=== PATIENT | female | born 1960 | race American Indian/Alaskan Native ===

== ENCOUNTER 2021-07-10 21:36 | Inpatient (IN) | payer MEDICARE ==
[~2021-07-10 21:36] MED LIST: AZITHROMYCIN/NS 500 MG/250 ML 500 MG/250 ML BAG IV ONE; cefTRIAXone/NS 2 GM/100 ML 2 GM/100 ML BAG IV ONE
--- NOTE | 2021-07-10 21:53 | Emergency Department Report ---
ED General Adult HPI - General Chief complaint: Pain General Stated complaint: HEADACHE, ABDOMINAL PAIN, INSOMNIA Source: patient, EMS Mode of arrival: Stretcher Limitations: Language Barrier - History of Present Illness Initial comments: Patient presents to the emergency department the chief complaint of shortness of breath. Patient is a hemodialysis recipient with her last dialysis being yesterday. She goes on Tuesdays, , Thursday. She states her dialysis center is in [place] and she just moved to this area. Per EMS arrival to the patient's home her sats were 84% on room air she was placed on 3 L nasal cannula with O2 sats decreasing to 92%. Patient complains of back pain but denies chest pain, shortness breath, or headache. -: Sudden Severity scale (0 -10): 5 Quality: aching Consistency: constant Improves with: none Worsens with: none Associated Symptoms: denies other symptoms Treatments Prior to Arrival: none - Related Data Allergies Allergy/AdvReac Type Severity Reaction Status Date / Time No Known Allergies Allergy Unverified 07/10/21 20:57 ED Review of Systems ROS: Stated complaint: HEADACHE, ABDOMINAL PAIN, INSOMNIA Other details as noted in HPI Comment: All other systems reviewed and negative Constitutional: denies: chills, fever Eyes: denies: eye pain, eye discharge, vision change ENT: denies: ear pain, throat pain Respiratory: shortness of breath. denies: cough, wheezing Cardiovascular: denies: chest pain, palpitations Endocrine: no symptoms reported Gastrointestinal: denies: abdominal pain, nausea, diarrhea Genitourinary: denies: urgency, dysuria, discharge Musculoskeletal: denies: back pain, joint swelling, arthralgia Skin: denies: rash, lesions Neurological: denies: headache, weakness, paresthesias Psychiatric: denies: anxiety, depression Hematological/Lymphatic: denies: easy bleeding, easy bruising ED Past Medical Hx - Past Medical History Previous Medical History?: Yes Hx Hypertension: Yes Hx CVA: Yes Hx Diabetes: Yes Hx Renal Disease: Yes (ESRD with Hemodialysis) Hx Headaches / Migraines: Yes Hx Seizures: Yes Additional medical history: HD access Left arm HD T,TH,Sat. Anemia in chronic disease, CAD, Fluid Overload, Hyperlipidemia, Hypokalemia, Hyperparathyroidism ED Physical Exam - General Limitations: Language Barrier General appearance: alert, in no apparent distress - Head Head exam: Present: atraumatic, normocephalic - Eye Eye exam: Present: normal appearance, PERRL, EOMI - ENT ENT exam: Present: mucous membranes moist - Neck Neck exam: Present: normal inspection - Respiratory Respiratory exam: Present: rales. Absent: respiratory distress - Cardiovascular Cardiovascular Exam: Present: regular rate, normal rhythm. Absent: systolic murmur, diastolic murmur, rubs, gallop - GI/Abdominal GI/Abdominal exam: Present: soft, normal bowel sounds. Absent: distended, tenderness - Extremities Exam Extremities exam: Present: normal inspection - Back Exam Back exam: Present: normal inspection - Neurological Exam Neurological exam: Present: alert, oriented X3, CN II-XII intact. Absent: motor sensory deficit - Psychiatric Psychiatric exam: Present: normal affect, normal mood - Skin Skin exam: Present: warm, dry, intact, normal color. Absent: rash ED Course Vital Signs 07/10/21 07/10/21 21:09 22:21 Temperature 99.5 F Pulse Rate 82 Respiratory 20 20 Rate Blood Pressure 169/74 [Right] O2 Sat by Pulse 94 95 Oximetry ED Medical Decision Making - Lab Data Result diagrams: 07/10/21 21:38 07/10/21 21:38 Lab Results 07/10/21 07/10/21 07/10/21 Range/Units 21:38 21:38 21:38 WBC 4.2 L (4.5-11.0) K/mm3 RBC 3.70 (3.65-5.03) M/mm3 Hgb 9.2 L (10.1-14.3) gm/dl Hct 29.6 L (30.3-42.9) % MCV 80 (79-97) fl MCH 25 L (28-32) pg MCHC 31 (30-34) % RDW 17.1 H (13.2-15.2) % Plt Count 257 (140-440) K/mm3 Lymph % (Auto) 22.5 (13.4-35.0) % [place] % (Auto) 13.8 H (0.0-7.3) % Eos % (Auto) 1.3 (0.0-4.3) % Baso % (Auto) 2.8 H (0.0-1.8) % Lymph # (Auto) 0.9 L (1.2-5.4) K/mm3 [place] # (Auto) 0.6 (0.0-0.8) K/mm3 Eos # (Auto) 0.1 (0.0-0.4) K/mm3 Baso # (Auto) 0.1 (0.0-0.1) K/mm3 Seg Neutrophils % 59.6 (40.0-70.0) % Seg Neutrophils # 2.5 (1.8-7.7) K/mm3 APTT 40.5 H (24.2-36.6) Sec. Sodium 136 L (137-145) mmol/L Potassium 4.1 (3.6-5.0) mmol/L Chloride 95.3 L (98-107) mmol/L Carbon Dioxide 25 (22-30) mmol/L Anion Gap 20 mmol/L BUN 35 H (7-17) mg/dL Creatinine 6.6 H (0.6-1.2) mg/dL Estimated GFR 6 ml/min BUN/Creatinine Ratio 5 % Glucose 96 (65-100) mg/dL Lactic Acid (0.7-2.0) mmol/L Calcium 9.7 (8.4-10.2) mg/dL Total Bilirubin 0.70 (0.1-1.2) mg/dL AST 12 (5-40) units/L ALT 7 (7-56) units/L Alkaline Phosphatase 82 (35-129) units/L Troponin T 0.035 H (0.00-0.029) ng/mL NT-Pro-B Natriuret Pep (0-900) pg/mL Total Protein 8.7 H (6.3-8.2) g/dL Albumin 4.4 (3.9-5) g/dL Albumin/Globulin Ratio 1.0 % 07/10/21 07/10/21 Range/Units 21:38 21:38 WBC (4.5-11.0) K/mm3 RBC (3.65-5.03) M/mm3 Hgb (10.1-14.3) gm/dl Hct (30.3-42.9) % MCV (79-97) fl MCH (28-32) pg MCHC (30-34) % RDW (13.2-15.2) % Plt Count (140-440) K/mm3 Lymph % (Auto) (13.4-35.0) % [place] % (Auto) (0.0-7.3) % Eos % (Auto) (0.0-4.3) % Baso % (Auto) (0.0-1.8) % Lymph # (Auto) (1.2-5.4) K/mm3 [place] # (Auto) (0.0-0.8) K/mm3 Eos # (Auto) (0.0-0.4) K/mm3 Baso # (Auto) (0.0-0.1) K/mm3 Seg Neutrophils % (40.0-70.0) % Seg Neutrophils # (1.8-7.7) K/mm3 APTT (24.2-36.6) Sec. Sodium (137-145) mmol/L Potassium (3.6-5.0) mmol/L Chloride (98-107) mmol/L Carbon Dioxide (22-30) mmol/L Anion Gap mmol/L BUN (7-17) mg/dL Creatinine (0.6-1.2) mg/dL Estimated GFR ml/min BUN/Creatinine Ratio % Glucose (65-100) mg/dL Lactic Acid 0.70 (0.7-2.0) mmol/L Calcium (8.4-10.2) mg/dL Total Bilirubin (0.1-1.2) mg/dL AST (5-40) units/L ALT (7-56) units/L Alkaline Phosphatase (35-129) units/L Troponin T (0.00-0.029) ng/mL NT-Pro-B Natriuret Pep 47112 H (0-900) pg/mL Total Protein (6.3-8.2) g/dL Albumin (3.9-5) g/dL Albumin/Globulin Ratio % - Radiology Data Radiology results: report reviewed - Medical Decision Making Contacted Dr. [address] security officer on-call Plan is for dialysis in a.m. Discussed results with patient Patient states she does not make urine Patient is O2 sats improved from 86% to 94% on 2 L nasal cannula Critical care attestation.: If time is entered above; I have spent that time in minutes in the direct care of this critically ill patient, excluding procedure time. ED Disposition Clinical Impression: Volume overload, End stage renal disease on dialysis Disposition: ADMITTED INPATIENT Is pt being admited?: Yes Does the pt Need Aspirin: No Condition: Fair
--- NOTE | 2021-07-10 21:55 | XRay Report ---
CHEST 1 VIEW 07/10/2021 8:42 PM INDICATION / CLINICAL INFORMATION: sob. COMPARISON: None available. FINDINGS: SUPPORT DEVICES: Expected positioning of a right ICD. HEART / MEDIASTINUM: There is moderate cardiomegaly with central vascular congestion. LUNGS / PLEURA: Generalized bilateral interstitial opacities are noted with bibasilar airspace opacit ies and probable small pleural effusions. No pneumothorax. ADDITIONAL FINDINGS: No significant additional findings. IMPRESSION: Suspected acute CHF exacerbation. Continued radiographic follow-up to resolution is recommended. Signer Name: Nirav Luna MD Signed: 07/10/2021 9:50 PM Workstation Name: [id number]
[2021-07-10 22:07] LABS: Basophils # (Auto) 0.1 K/mm3 (0.0-0.1); Basophils % (Auto) 2.8 % (0.0-1.8); Eosinophils # (Auto) 0.1 K/mm3 (0.0-0.4); Eosinophils % (Auto) 1.3 % (0.0-4.3); Hematocrit 29.6 % (30.3-42.9); Hemoglobin 9.2 gm/dl (10.1-14.3); Lymphocytes # (Auto) 0.9 K/mm3 (1.2-5.4); Lymphocytes % (Auto) 22.5 % (13.4-35.0); Mean Corpuscular HGB Conc 31 % (30-34); Mean Corpuscular Volume 80 fl (79-97); Monocytes # (Auto) 0.6 K/mm3 (0.0-0.8); Monocytes % (Auto) 13.8 % (0.0-7.3); Platelet Count 257 K/mm3 (140-440); Red Cell Distribution Width 17.1 % (13.2-15.2)
[2021-07-10 22:15] LABS: Albumin 4.4 g/dL (3.9-5); Calcium 9.7 mg/dL (8.4-10.2)
[2021-07-11] MEDS ORDERED: ACETAMINOPHEN 325 MG TAB PO PRN (00:53)
[2021-07-11] MEDS ORDERED: MORPHINE 2 MG/1 ML INJ IV PRN (00:53)
[2021-07-11] MEDS ORDERED: ALBUTEROL 2.5 MG/3 ML NEBU IH PRN (00:53)
[2021-07-11] MEDS ORDERED: ONDANSETRON 4 MG/2 ML INJ IV PRN (00:53)
[2021-07-11] MEDS ORDERED: HYDROmorphone 1 MG/1 ML INJ IV PRN (00:53)
[2021-07-11] MEDS ORDERED: DEXTROSE 50% IN WATER (25GM) 50 ML SYRINGE IV PRN (00:55)
[2021-07-11 00:58] LABS: Chol/HDL Ratio 4.48 %
--- NOTE | 2021-07-11 01:00 | History and Physical Report ---
History of Present Illness Date of examination: 07/11/21 Date of admission: 07/11/21 00:00 Chief complaint: Headache abdominal pain insomnia Missed dialysis History of present illness: 60 years old female with past medical history of hypertension, CVA, diabetes, end-stage renal disease on dialysis was brought to the hospital because of shortness of breath. Patient is a hemodialysis pt with her last dialysis being yesterday. She goes on Tuesdays, , Thursday. She states her dialysis center is in [place] and she just moved to this area. Per EMS arrival to the patient's home her sats were 84% on room air she was placed on 3 L nasal cannula with O2 sats decreasing to 92%. Patient complains of back pain but denies chest pain, shortness breath, or headache. In the emergency room patient is found to have BUN of 35 and creatinine of 6.6 [place] [address] and troponin 0 0.035, chest x-ray shows suspected acute CHF exacerbation. So going to admit the patient and consult nephrology for hemodialysis in the morning. Past History Past Medical History: diabetes, ESRD, hypertension, seizures, stroke, other (Hyperparathyroidism, headache migraine) Medications and Allergies Allergies Allergy/AdvReac Type Severity Reaction Status Date / Time No Known Allergies Allergy Unverified 07/10/21 20:57 Active Meds: Active Medications Acetaminophen (Acetaminophen 325 Mg Tab) 650 mg PO Q4H PRN PRN Reason: Pain MILD(1-3)/Fever >100.5/COWART Albuterol (Albuterol 2.5 Mg/3 Ml Nebu) 2.5 mg IH Q4HRT PRN PRN Reason: Shortness Of Breath Albuterol/Ipratropium (Ipratropium/Albuterol Sulfate 3 Ml Ampul.Neb) 1 ampul IH Q6HRT [facility] Dextrose (Dextrose 50% In Water (25gm) 50 Ml Syringe) 50 ml IV Q30MIN PRN; Protocol PRN Reason: Hypoglycemia Famotidine (Famotidine 20 Mg Tab) 20 mg PO BID JODI Heparin Sodium (Porcine) (Heparin 5,000 Unit/1 Ml Vial) 5,000 unit SUB-Q Q12HR [facility] Hydromorphone HCl (Hydromorphone 1 Mg/1 Ml Inj) 0.5 mg IV Q3H PRN PRN Reason: Pain , Severe (7-10) Insulin Human Lispro (Insulin Lispro 100 Unit/Ml) 0 unit SUB-Q ACHS JODI; Protocol Morphine Sulfate (Morphine 2 Mg/1 Ml Inj) 2 mg IV Q4H PRN PRN Reason: Pain, Moderate (4-6) Ondansetron HCl (Ondansetron 4 Mg/2 Ml Inj) 4 mg IV Q8H PRN PRN Reason: Nausea And Vomiting Sodium Chloride (Sodium Chloride 0.9% 10 Ml Flush Syringe) 10 ml IV BID JODI Sodium Chloride (Sodium Chloride 0.9% 10 Ml Flush Syringe) 10 ml IV PRN PRN PRN Reason: LINE FLUSH Review of Systems All systems: negative Constitutional: other (Headache, abdominal pain, insomnia) Exam - Constitutional Vitals: Temp Pulse Resp BP Pulse Ox 99.5 F 82 20 176/70 91 07/10/21 21:09 07/11/21 00:00 07/11/21 00:00 07/11/21 00:00 07/11/21 00:00 General appearance: Present: no acute distress, well-nourished - EENT Eyes: Present: PERRL ENT: hearing intact, clear oral mucosa - Neck Neck: Present: supple, normal ROM - Respiratory Respiratory effort: normal Respiratory: bilateral: diminished - Cardiovascular Heart Sounds: Present: S1 & S2. Absent: rub, click - Extremities Extremities: pulses symmetrical, No edema Peripheral Pulses: within normal limits - Abdominal General gastrointestinal: Present: soft, non-tender, non-distended, normal bowel sounds Female genitourinary: Present: normal - Integumentary Integumentary: Present: clear, warm, dry - Musculoskeletal Musculoskeletal: gait normal, strength equal bilaterally - Psychiatric Psychiatric: appropriate mood/affect, intact judgment & insight - Neurologic Neurologic: CNII-XII intact, moves all extremities HEART Score - HEART Score Troponin: Troponin T 0.035 ng/mL (0.00-0.029) H 07/10/21 21:38 Results - Labs CBC & Chem 7: 07/10/21 21:38 12 21:38 Labs: Laboratory Last Values WBC 4.2 K/mm3 (4.5-11.0) L 07/10/21 21:38 RBC 3.70 M/mm3 (3.65-5.03) 07/10/21 21:38 Hgb 9.2 gm/dl (10.1-14.3) L 07/10/21 21:38 Hct 29.6 % (30.3-42.9) L 07/10/21 21:38 MCV 80 fl (79-97) 07/10/21 21:38 MCH 25 pg (28-32) L 07/10/21 21:38 MCHC 31 % (30-34) 07/10/21 21:38 RDW 17.1 % (13.2-15.2) H 07/10/21 21:38 Plt Count 257 K/mm3 (140-440) 07/10/21 21:38 Lymph % (Auto) 22.5 % (13.4-35.0) 07/10/21 21:38 [place] % (Auto) 13.8 % (0.0-7.3) H 07/10/21 21:38 Eos % (Auto) 1.3 % (0.0-4.3) 07/10/21 21:38 Baso % (Auto) 2.8 % (0.0-1.8) H 07/10/21 21:38 Lymph # (Auto) 0.9 K/mm3 (1.2-5.4) L 07/10/21 21:38 [place] # (Auto) 0.6 K/mm3 (0.0-0.8) 07/10/21 21:38 Eos # (Auto) 0.1 K/mm3 (0.0-0.4) 07/10/21 21:38 Baso # (Auto) 0.1 K/mm3 (0.0-0.1) 07/10/21 21:38 Seg Neutrophils % 59.6 % (40.0-70.0) 07/10/21 21:38 Seg Neutrophils # 2.5 K/mm3 (1.8-7.7) 07/10/21 21:38 APTT 40.5 Sec. (24.2-36.6) H 07/10/21 21:38 Sodium 136 mmol/L (137-145) L 07/10/21 21:38 Potassium 4.1 mmol/L (3.6-5.0) 07/10/21 21:38 Chloride 95.3 mmol/L (98-107) L 07/10/21 21:38 Carbon Dioxide 25 mmol/L (22-30) 07/10/21 21:38 Anion Gap 20 mmol/L 07/10/21 21:38 BUN 35 mg/dL (7-17) H 07/10/21 21:38 Creatinine 6.6 mg/dL (0.6-1.2) H 07/10/21 21:38 Estimated GFR 6 ml/min 07/10/21 21:38 BUN/Creatinine Ratio 5 % 07/10/21 21:38 Glucose 96 mg/dL (65-100) 07/10/21 21:38 Lactic Acid 0.70 mmol/L (0.7-2.0) 07/10/21 21:38 Calcium 9.7 mg/dL (8.4-10.2) 07/10/21 21:38 Total Bilirubin 0.70 mg/dL (0.1-1.2) 07/10/21 21:38 AST 12 units/L (5-40) 07/10/21 21:38 ALT 7 units/L (7-56) 07/10/21 21:38 Alkaline Phosphatase 82 units/L (35-129) 07/10/21 21:38 Troponin T 0.035 ng/mL (0.00-0.029) H 07/10/21 21:38 NT-Pro-B Natriuret Pep 25958 pg/mL (0-900) H 07/10/21 21:38 Total Protein 8.7 g/dL (6.3-8.2) H 07/10/21 21:38 Albumin 4.4 g/dL (3.9-5) 07/10/21 21:38 Albumin/Globulin Ratio 1.0 % 07/10/21 21:38 Microbiology: Microbiology 07/10/21 21:38 Peripheral/Venous Blood Culture - Preliminary Culture in Progress 07/10/21 21:44 Peripheral/Venous Blood Culture - Preliminary Culture in Progress - Imaging and Cardiology Chest x-ray: report reviewed Assessment and Plan VTE prophylaxis?: Chemical Plan of care discussed with patient/family: Yes - Patient Problems (1) End stage renal disease on dialysis Current Visit: Yes Status: Acute Plan to address problem: Admit the patient to the medical telemetry. Put the patient on renal diet. Avoid nephrotoxic drugs w ill consult nephrology for hemodialysis in the morning. Recheck BMP in the morning (2) Volume overload Current Visit: Yes Status: Acute Plan to address problem: We monitor the patient closely. Consult nephrology for hemodialysis in the morning recheck BMP in the morning (3) Diabetes Current Visit: Yes Status: Acute Plan to address problem: 1800 kcal ADA diet. Accu-Chek before meals and at bedtime with Humalog moderate dose coverage. Diabetic education (4) CVA (cerebral vascular accident) Current Visit: Yes Status: Acute Plan to address problem: Stable. We will continue the home medication. Outpatient follow-up with neurology (5) Hypertension Current Visit: Yes Status: Acute Plan to address problem: Hydralazine 10 mg IV every 6 hours as needed. We continue the home medication. We will monitor the blood pressure closely (6) DVT prophylaxis Current Visit: Yes Status: Acute Plan to address problem: Heparin 5000 units subcu every 8 hours for DVT prophylaxis. Pepcid 20 mg p.o. twice daily for GI prophylaxis. Patient is a full code
[2021-07-11] MEDS: hydrALAZINE 20 MG/1 ML INJ IV PRN ×3 (01:48→16:39)
[2021-07-11] MEDS: INSULIN LISPRO 100 UNIT/ML SUB-Q SCH ×4 (08:00→21:33)
[2021-07-11] MEDS ORDERED: cloNIDine 0.1 MG TAB PO STA (08:08)
[2021-07-11] MEDS ORDERED: MORPHINE 4 MG/1 ML INJ IV STA (09:24)
[2021-07-11] MEDS ORDERED: MORPHINE 2 MG/1 ML INJ IV STA (09:45)
[2021-07-11] MEDS: IPRATROPIUM/ALBUTEROL SULFATE 3 ML AMPUL.NEB IH SCH ×3 (09:55→15:57)
[2021-07-11] MEDS ORDERED: FAMOTIDINE 20 MG TAB PO SCH (10:00)
[2021-07-11] MEDS: HEPARIN 5,000 UNIT/1 ML VIAL SUB-Q SCH ×2 (10:00→21:37)
--- NOTE | 2021-07-11 11:28 | Consultation ---
History of Present Illness - Reason for Consult Consult date: 07/11/21 chronic renal failure, end stage renal disease - History of Present Illness patient with ESRD on HD was admitted for worsening shortness of breath and hypoxia, she was found to have pulm edema on CXR and renal consult was requested for HD while inpatient Past History Past Medical History: diabetes, ESRD, hypertension, seizures, stroke, other (Hyperparathyroidism, headache migraine) Medications and Allergies Allergies Allergy/AdvReac Type Severity Reaction Status Date / Time No Known Allergies Allergy Unverified 07/10/21 20:57 Active Meds: Active Medications Acetaminophen (Acetaminophen 325 Mg Tab) 650 mg PO Q4H PRN PRN Reason: Pain MILD(1-3)/Fever >100.5/COWART Albuterol (Albuterol 2.5 Mg/3 Ml Nebu) 2.5 mg IH Q4HRT PRN PRN Reason: Shortness Of Breath Albuterol/Ipratropium (Ipratropium/Albuterol Sulfate 3 Ml Ampul.Neb) 1 ampul IH Q6HRT [facility] Last Admin: 07/11/21 09:55 Dose: 1 ampul Documented by: Dextrose (Dextrose 50% In Water (25gm) 50 Ml Syringe) 0 ml IV Q30MIN PRN; Protocol PRN Reason: Hypoglycemia Famotidine (Famotidine 20 Mg Tab) 20 mg PO QAM [facility] Heparin Sodium (Porcine) (Heparin 5,000 Unit/1 Ml Vial) 5,000 unit SUB-Q Q12HR [facility] Hydralazine HCl (Hydralazine 20 Mg/1 Ml Inj) 10 mg IV Q6H PRN PRN Reason: Blood Pressure Last Admin: 07/11/21 08:14 Dose: 10 mg Documented by: Hydromorphone HCl (Hydromorphone 1 Mg/1 Ml Inj) 0.5 mg IV Q3H PRN PRN Reason: Pain , Severe (7-10) Last Admin: 07/11/21 01:49 Dose: 0.5 mg Documented by: Insulin Human Lispro (Insulin Lispro 100 Unit/Ml) 0 unit SUB-Q [facility]; Protocol Morphine Sulfate (Morphine 2 Mg/1 Ml Inj) 2 mg IV Q4H PRN PRN Reason: Pain, Moderate (4-6) Ondansetron HCl (Ondansetron 4 Mg/2 Ml Inj) 4 mg IV Q8H PRN PRN Reason: Nausea And Vomiting Sodium Chloride (Sodium Chloride 0.9% 10 Ml Flush Syringe) 10 ml IV BID JODI Sodium Chloride (Sodium Chloride 0.9% 10 Ml Flush Syringe) 10 ml IV PRN PRN PRN Reason: LINE FLUSH Exam - Vital Signs Vital signs: Vital Signs Pulse Ox 94 07/10/21 20:45 Results - Lab Results 07/10/21 21:38 07/10/21 21:38 Most recent lab results Calcium 9.7 mg/dL (8.4-10.2) 07/10/21 21:38 Assessment and Plan (1) End stage renal disease on dialysis (2) Volume overload (3) Diabetes (4) CVA (cerebral vascular accident) (5) Hypertension Patient was consented for HD while inpatient HD today for clearance and volume removal will assess HD needs daily, likely again tomorrow renally dose meds strict I&O daily weight
[2021-07-11 12:12] LABS: ABG Base Excess -1.6 mmol/L (-2.0-3.0); ABG HCO3 24.2 mmol/L (20.0-26.0); ABG Oxygen Saturation 94.8 % (95.0-99.0); ABG PCO2 45.6 mm Hg; ABG PH 7.343 pH Units (7.350-7.450); ABG PO2 78.8 mm Hg (80.0-90.0)
[2021-07-11 12:13] LABS: ABG Methemoglobin 0.4 % (0.0-1.5)
[2021-07-11 12:29] LABS: Hepatitis C Virus Antibody Non-Reactive (NonReactive)
[2021-07-11 12:49] LABS: Hepatitis B Surface Antigen Nonreactive (Negative)
[2021-07-11] MEDS ORDERED: LORazepam 2 MG/ML VIAL IV STA (15:43)
--- NOTE | 2021-07-11 17:00 | Event Note ---
Date: 07/11/21 Progress note: History obtained from ER records, H&P as well as from her daughter. 68-year-old female with PMH of CAD, NE, prolonged QT interval, cardiac arrest x1, AICD, severe hypertension, chronic heart failure, ESRD on hemodialysis, DM, CVA was living with her daughter in [facility] but relocated to [place] 2 weeks ago. She was being followed by audiovisual lead technician in [facility]. She is compliant with her hemodialysis on T/T/S since moved here. Last dialysis was Thursday, day before yesterday. Patient presented to ED via EMS early this morning with worsening dyspnea since 2 days. Reportedly, O2 sats 84% on room air and placed on 3 L of O2. In ED, CBC unremarkable, lactic acid normal, chemistry unremarkable for a dialysis patient, BNP 45, 746 and a chest x-ray showed acute CHF changes. Troponin 0 0.036 and 0.037. Patient complained of some back pain but no chest pains in the ED. Nephrology was consulted by ED physician and patient admitted. Hypoxia continue to get worse after admission and needed BiPAP placement and FiO2 100% prior to initiation of hemodialysis. Patient did complain of some chest pains but EKG was unremarkable as well as troponins. She became confused. Patient did undergo dialysis and 4 L of fluid removed. FiO2 could be reduced to 50% after dialysis but patient became more confused and remain drowsy. Transferred to IM for further management. Home medications as per daughter: Clonidine, hydralazine, nifedipine, aspirin, Plavix, Advil statin, calcitriol, gabapentin, isosorbide, labetalol, losartan, and minoxidil. She also takes tumor medication related to renal failure. On exam, currently BP is elevated, patient is drowsy, confused and agitated, on BiPAP, face symmetrical, eyes closed, neck supple, gross diminished breath sounds, regular cardiac rhythm, abdomen soft and nontender, no significant extremity edema. She appears to be moving all 4 extremities. Assessment: Decompensated heart failure of unknown LVEF ESRD on hemodialysis but compliant with the dialysis, T/T/S Acute hypoxic respiratory failure with altered mental status Troponins borderline/normal/flat No evidence of sepsis/pneumonia Severe hypertension with known history Reported history of CAD, HF, prolonged QT interval, AICD placement History of DM History of CVA Plan: Transfer to IMCU/ICU Continue BiPAP for now Continue oxygen supplementation and wean as tolerated Follow-up ABG Optimize BP control using nitro drip, IV labetalol, IV Cardene Precedex for agitation Echocardiogram, cardiology consult Nephrology is following, dialysis scheduled for tomorrow again. Pulmonary consulted and I discussed the case Further interventions as indicated Critical care time spent 50 minutes
[2021-07-11] MEDS ORDERED: hydrALAZINE 20 MG/1 ML INJ IV PRN ×2 (19:56→20:25)
[2021-07-11] MEDS: niCARdipine 50 MG in SODIUM CHLORIDE 0.9% 250ML 230 ML IV SCH (22:12)
--- NOTE | 2021-07-11 23:13 | Cat Scan Report ---
CT HEAD WITHOUT CONTRAST INDICATION / CLINICAL INFORMATION: Altered Mental Status. TECHNIQUE: All CT scans at this location are performed using CT dose reduction for ALARA by means of automated exposure control. COMPARISON: None available. FINDINGS: HEMORRHAGE: None. EXTRA-AXIAL SPACES: Mildly prominent likely related to cortical atrophy. VENTRICULAR SYSTEM: Mildly enlarged likely related to central atrophy. CEREBRAL PARENCHYMA: Chronic moderate sized junctional zone infarct in the left posterior parietal re gion at the junction of the CRYSTAL SLICER and MCA distributions. MIDLINE SHIFT / HERNIATION: None. CEREBELLUM / BRAINSTEM: Moderate-sized chronic infarct in the right cerebellum posteriorly. ORBITS: Normal as visualized. SOFT TISSUES: No significant abnormality. SKULL: No significant abnormality. PARANASAL SINUSES / MASTOID AIR CELLS: Normal as visualized. ADDITIONAL FINDINGS: None. IMPRESSION: 1. No acute intracranial abnormality. 2. Old areas of infarction in the right cerebellum and left posterior parietal junctional zone. Signer Name: Saman Hi MD Signed: 07/11/2021 11:09 PM Workstation Name: [id number]
[2021-07-12] MEDS: IPRATROPIUM/ALBUTEROL SULFATE 3 ML AMPUL.NEB IH SCH ×5 (02:05→21:17)
[2021-07-12] MEDS ORDERED: ACETAMINOPHEN 650 MG RECT SUPP PR PRN (03:40)
[2021-07-12] MEDS: niCARdipine 50 MG in SODIUM CHLORIDE 0.9% 250ML 230 ML IV SCH ×2 (04:01→09:32)
[2021-07-12 05:20] LABS: Basophils # (Auto) 0.1 K/mm3 (0.0-0.1); Basophils % (Auto) 2.2 % (0.0-1.8); Eosinophils % (Auto) 0.4 % (0.0-4.3); Hematocrit 26.6 % (30.3-42.9); Hemoglobin 8.4 gm/dl (10.1-14.3); Lymphocytes % (Auto) 19.8 % (13.4-35.0); Mean Corpuscular HGB Conc 32 % (30-34); Mean Corpuscular Volume 79 fl (79-97); Monocytes # (Auto) 0.6 K/mm3 (0.0-0.8); Monocytes % (Auto) 12.4 % (0.0-7.3); Platelet Count 183 K/mm3 (140-440); Red Blood Count 3.36 M/mm3 (3.65-5.03); Red Cell Distribution Width 16.7 % (13.2-15.2)
[2021-07-12 05:44] LABS: Calcium 9.8 mg/dL (8.4-10.2)
[2021-07-12] MEDS: INSULIN LISPRO 100 UNIT/ML SUB-Q SCH ×3 (07:45→21:00)
--- NOTE | 2021-07-12 09:03 | XRay Report ---
CHEST 1 VIEW 07/12/2021 9:05 AM INDICATION / CLINICAL INFORMATION: CHF. COMPARISON: 07/10/2021 FINDINGS: SUPPORT DEVICES: Stable, satisfactory device positioning. HEART / MEDIASTINUM: No significant abnormality. LUNGS / PLEURA: Diffuse bilateral pulmonary opacities most significant in the lower lungs No pneumoth orax. ADDITIONAL FINDINGS: No significant additional findings. IMPRESSION: 1. No significant change Signer Name: Campos Stout MD Signed: 07/12/2021 8:58 AM Workstation Name: [id number]
[2021-07-12] MEDS ORDERED: FAMOTIDINE 20 MG/2 ML INJ IV SCH ×2 (10:00→22:00)
[2021-07-12] MEDS: HEPARIN 5,000 UNIT/1 ML VIAL SUB-Q SCH ×2 (10:10→23:24)
--- NOTE | 2021-07-12 10:41 | Progress Note ---
Assessment and Plan (1) End stage renal disease on dialysis (2) Volume overload (3) Diabetes (4) CVA (cerebral vascular accident) (5) Hypertension HD again today for clearance and volume removal will assess HD needs daily renally dose meds strict I&O daily weight Subjective Date of service: 07/12/21 Principal diagnosis: ESRD Interval history: patient was transferred to ICU due to worsening hypoxic resp failure Objective - Vital Signs Vital signs: Vital Signs - 12hr 07/11/21 07/11/21 07/11/21 22:48 22:52 23:00 Temperature Pulse Rate 81 80 79 Pulse Rate [ Anterior Bilateral Throughout] Respiratory 20 Rate Respiratory Rate [Anterior Bilateral Throughout] Blood Pressure 183/76 187/74 193/75 O2 Sat by Pulse 95 95 95 Oximetry 07/11/21 07/11/21 07/11/21 23:16 23:18 23:30 Temperature Pulse Rate 80 79 78 Pulse Rate [ Anterior Bilateral Throughout] Respiratory 24 22 Rate Respiratory Rate [Anterior Bilateral Throughout] Blood Pressure 154/72 183/76 142/68 O2 Sat by Pulse 96 97 96 Oximetry 07/11/21 07/11/21 07/11/21 23:40 23:45 23:49 Temperature 101.5 F H Pulse Rate 78 88 Pulse Rate [ Anterior Bilateral Throughout] Respiratory 22 Rate Respiratory Rate [Anterior Bilateral Throughout] Blood Pressure 149/69 O2 Sat by Pulse 96 98 Oximetry 07/12/21 07/12/21 07/12/21 00:00 00:15 00:30 Temperature Pulse Rate 77 78 79 Pulse Rate [ Anterior Bilateral Throughout] Respiratory 21 Rate Respiratory Rate [Anterior Bilateral Throughout] Blood Pressure 144/69 154/71 157/77 O2 Sat by Pulse 99 96 97 Oximetry 07/12/21 07/12/21 07/12/21 00:46 01:00 01:15 Temperature Pulse Rate 77 75 75 Pulse Rate [ Anterior Bilateral Throughout] Respiratory 21 20 21 Rate Respiratory Rate [Anterior Bilateral Throughout] Blood Pressure 150/75 146/72 135/67 O2 Sat by Pulse 100 99 100 Oximetry 07/12/21 07/12/21 07/12/21 01:30 01:45 02:00 Temperature Pulse Rate 74 73 75 Pulse Rate [ Anterior Bilateral Throughout] Respiratory 20 21 Rate Respiratory Rate [Anterior Bilateral Throughout] Blood Pressure 142/68 139/67 139/67 O2 Sat by Pulse 100 98 98 Oximetry 07/12/21 07/12/21 07/12/21 02:16 02:30 02:45 Temperature Pulse Rate 73 72 71 Pulse Rate [ Anterior Bilateral Throughout] Respiratory 20 22 22 Rate Respiratory Rate [Anterior Bilateral Throughout] Blood Pressure 155/65 146/70 149/65 O2 Sat by Pulse 99 98 97 Oximetry 07/12/21 07/12/21 07/12/21 02:57 03:00 03:15 Temperature 101.8 F H Pulse Rate 72 72 73 Pulse Rate [ Anterior Bilateral Throughout] Respiratory 526 H 21 22 Rate Respiratory Rate [Anterior Bilateral Throughout] Blood Pressure 149/68 151/69 O2 Sat by Pulse 98 97 97 Oximetry 07/12/21 07/12/21 07/12/21 03:30 03:46 04:00 Temperature Pulse Rate 73 74 75 Pulse Rate [ Anterior Bilateral Throughout] Respiratory 23 22 24 Rate Respiratory Rate [Anterior Bilateral Throughout] Blood Pressure 140/71 154/71 163/76 O2 Sat by Pulse 98 97 97 Oximetry 07/12/21 07/12/21 07/12/21 04:15 04:30 04:45 Temperature Pulse Rate 74 74 70 Pulse Rate [ Anterior Bilateral Throughout] Respiratory 22 23 22 Rate Respiratory Rate [Anterior Bilateral Throughout] Blood Pressure 150/66 139/63 142/63 O2 Sat by Pulse 98 76 L 98 Oximetry 07/12/21 07/12/21 07/12/21 05:00 05:16 05:27 Temperature Pulse Rate 70 70 70 Pulse Rate [ Anterior Bilateral Throughout] Respiratory 21 21 Rate Respiratory Rate [Anterior Bilateral Throughout] Blood Pressure 149/59 165/60 165/60 O2 Sat by Pulse 97 98 Oximetry 07/12/21 07/12/21 07/12/21 05:30 05:45 06:00 Temperature Pulse Rate 70 69 70 Pulse Rate [ Anterior Bilateral Throughout] Respiratory 22 24 24 Rate Respiratory Rate [Anterior Bilateral Throughout] Blood Pressure 151/61 113/50 108/48 O2 Sat by Pulse 98 99 99 Oximetry 07/12/21 07/12/21 07/12/21 06:15 07:38 09:13 Temperature 100.0 F H Pulse Rate 71 70 Pulse Rate [ 73 Anterior Bilateral Throughout] Respiratory 22 24 Rate Respiratory 24 Rate [Anterior Bilateral Throughout] Blood Pressure 107/48 114/53 O2 Sat by Pulse 100 99 Oximetry - Lab 07/12/21 04:43 07/12/21 04:43 Most recent lab results ABG pH 7.343 pH Units (7.350-7.450) L 07/11/21 11:38 ABG pCO2 45.6 mm Hg 07/11/21 11:38 ABG pO2 78.8 mm Hg (80.0-90.0) L 07/11/21 11:38 ABG HCO3 24.2 mmol/L (20.0-26.0) 07/11/21 11:38 ABG O2 Saturation 94.8 % (95.0-99.0) L 07/11/21 11:38 Calcium 9.8 mg/dL (8.4-10.2) 07/12/21 04:43 Medications & Allergies - Medications Allergies/Adverse Reactions: Allergies No Known Allergies Allergy (Unverified 07/10/21 20:57) Home Medications: Home Medications Medication Instructions Recorded Confirmed Last Taken Type Atorvastatin [Lipitor Tab] 80 mg PO DAILY 07/12/21 07/12/21 Unknown History Clopidogrel [Plavix] 75 mg PO QDAY 07/12/21 07/12/21 Unknown History Gabapentin [Neurontin] 600 mg PO Q8H 07/12/21 07/12/21 Unknown History Icosapent Ethyl [Vascepa] 2 gm PO BID 07/12/21 07/12/21 Unknown History Isosorbide Mononitrate [Isosorbide 30 mg PO DAILY 07/12/21 07/12/21 Unknown History Mononitrate ER] Losartan [Cozaar] 25 mg PO BID 07/12/21 07/12/21 Unknown History NIFEdipine [Nifedipine ER] 90 mg PO BID 07/12/21 07/12/21 Unknown History Spironolactone [Aldactone] 50 mg PO HS 07/12/21 07/12/21 Unknown History Velphoro (Nf) 2 gm PO TID 07/12/21 07/12/21 Unknown History hydrALAZINE [Apresoline TAB] 25 mg PO BID 07/12/21 07/12/21 Unknown History labetaloL [Labetalol 200mg TAB] 600 mg PO BID 07/12/21 07/12/21 Unknown History traZODone [Desyrel] 50 mg PO HS 07/12/21 07/12/21 Unknown History Active Medications: Generic Name Dose Route Start Last Admin Trade Name Freq PRN Reason Stop Dose Admin Acetaminophen 650 mg 07/11/21 00:53 Acetaminophen 325 Mg Tab PO Q4H PRN Pain MILD(1-3)/Fever >100.5/COWART Acetaminophen 650 mg 07/12/21 03:40 07/12/21 03:52 Acetaminophen 650 Mg Rect Supp [place] 650 mg Q4H PRN Administration Pain, Mild (1-3) Albuterol 2.5 mg 07/11/21 00:53 Albuterol 2.5 Mg/3 Ml Nebu IH Q4HRT PRN Shortness Of Breath Albuterol/Ipratropium 1 ampul 07/11/21 02:00 07/12/21 09:13 Ipratropium/Albuterol Sulfate 3 Ml Ampul.Neb IH 1 ampul Q6HRT [facility]ODI Administration Dextrose 0 ml 07/11/21 00:55 Dextrose 50% In Water (25gm) 50 Ml Syringe IV Q30MIN PRN Hypoglycemia Protocol Famotidine 20 mg 07/12/21 10:00 Famotidine 20 Mg/2 Ml Inj IV QAM JODI Heparin Sodium (Porcine) 5,000 unit 07/11/21 10:00 07/11/21 21:37 Heparin 5,000 Unit/1 Ml Vial SUB-Q 5,000 unit Q12HR [facility]ODI Administration Dexmedetomidine HCl 200 mcg/ 50 mls @ 2.75 mls/hr 07/11/21 17:00 07/12/21 08:04 Sodium Chloride IV 0.4 mcg/kg/hr TITRATE JODI 5.5 mls/hr Administration Protocol 0.2 MCG/KG/HR Nicardipine HCl 50 mg/ Sodium 250 mls @ 25 mls/hr 07/11/21 22:00 07/12/21 09:32 Chloride IV 5 mg/hr TITR JODI 25 mls/hr Administration Protocol 5 MG/HR Insulin Human Lispro 0 unit 07/11/21 07:30 07/12/21 07:45 Insulin Lispro 100 Unit/Ml SUB-Q Not Given ACHS [facility] Protocol Labetalol HCl 10 mg 07/12/21 14:00 Labetalol 20 Mg/4 Ml Inj IV Q8HR [facility]OD[facility] Ondansetron HCl 4 mg 07/11/21 00:53 Ondansetron 4 Mg/2 Ml Inj IV Q8H PRN Nausea And Vomiting Sodium Chloride 10 ml 07/11/21 10:00 07/11/21 21:37 Sodium Chloride 0.9% 10 Ml Flush Syringe IV 10 ml BID JODI Administration Sodium Chloride 10 ml 07/11/21 00:53 Sodium Chloride 0.9% 10 Ml Flush Syringe IV PRN PRN LINE FLUSH
[2021-07-12] MEDS ORDERED: VANCOMYCIN/NS 1 GM/250 ML 1 GM/250 ML BAG IV ONE (12:00)
[2021-07-12] MEDS ORDERED: VANCOMYCIN PHARMACY TO DOSE IV SCH (12:00)
--- NOTE | 2021-07-12 12:11 | Electrocardiograph Report ---
[facility] Test Date: 2021-07-11 Test Time: 09:28:14 Pat Name: BELLA MCKEON Department: Room: A260 Gender: F [employer]: CJ : 1960 Requested By: ARNOLD BRENNAN Order Number: [id number] Reading MD: Frankie Padilla Measurements Intervals [place] Rate: 84 P: 48 PA: 163 QRS: -72 QRSD: 89 T: 41 QT: 424 QTc: 502 Interpretive Statements Sinus rhythm Left anterior fascicular block Consider anterior infarct No previous ECG available for comparison Electronically Signed On 07-12-2021 12:11:11 EST by Frankie Padilla
[2021-07-12] MEDS: PIPERACIL-TAZO 2.25 GM/50 ML 2.25 GM/50 ML BAG IV SCH (12:54)
--- NOTE | 2021-07-12 14:07 | Consultation ---
History of Present Illness Consult date: 07/12/21 Requesting physician: ARNOLD BRENNAN Reason for consult: hypoxemia History of present illness: 60 y/o female with ESRD on HD //Thursday admitted 2 days ago with dyspnea. Found to be in pulmonary edema. HD done on yesterday with 4 liters removed. Called by [facility]MS yesterday evening that patient was very combative, not wearing needed bipap and having worsening hypoxemia. SUggested transfer to [facility] for precedex drip. This am, remains on drip but is now off bipap and appears to be on room air now with good sats. Currently sleeping under the covers. Past History Past Medical History: diabetes, ESRD, hypertension, seizures, stroke, other (Hyperparathyroidism, headache migraine) Medications and Allergies Allergies Allergy/AdvReac Type Severity Reaction Status Date / Time No Known Allergies Allergy Unverified 07/10/21 20:57 Home Medications Medication Instructions Recorded Confirmed Last Taken Type Atorvastatin [Lipitor Tab] 80 mg PO DAILY 07/12/21 07/12/21 Unknown History Clopidogrel [Plavix] 75 mg PO QDAY 07/12/21 07/12/21 Unknown History Gabapentin [Neurontin] 600 mg PO Q8H 07/12/21 07/12/21 Unknown History Icosapent Ethyl [Vascepa] 2 gm PO BID 07/12/21 07/12/21 Unknown History Isosorbide Mononitrate [Isosorbide 30 mg PO DAILY 07/12/21 07/12/21 Unknown Hist ory Mononitrate ER] Losartan [Cozaar] 25 mg PO BID 07/12/21 07/12/21 Unknown History NIFEdipine [Nifedipine ER] 90 mg PO BID 07/12/21 07/12/21 Unknown History Spironolactone [Aldactone] 50 mg PO HS 07/12/21 07/12/21 Unknown History Velphoro (Nf) 2 gm PO TID 07/12/21 07/12/21 Unknown History hydrALAZINE [Apresoline TAB] 25 mg PO BID 07/12/21 07/12/21 Unknown History labetaloL [Labetalol 200mg TAB] 600 mg PO BID 07/12/21 07/12/21 Unknown History traZODone [Desyrel] 50 mg PO HS 07/12/21 07/12/21 Unknown History Active Meds: Active Medications Acetaminophen (Acetaminophen 325 Mg Tab) 650 mg PO Q4H PRN PRN Reason: Pain MILD(1-3)/Fever >100.5/COWART Acetaminophen (Acetaminophen 650 Mg Rect Supp) 650 mg [place] Q4H PRN PRN Reason: Pain, Mild (1-3) Last Admin: 07/12/21 03:52 Dose: 650 mg Documented by: Albuterol (Albuterol 2.5 Mg/3 Ml Nebu) 2.5 mg IH Q4HRT PRN PRN Reason: Shortness Of Breath Albuterol/Ipratropium (Ipratropium/Albuterol Sulfate 3 Ml Ampul.Neb) 1 ampul IH Q6HRT [facility] Last Admin: 07/12/21 09:13 Dose: 1 ampul Documented by: Dextrose (Dextrose 50% In Water (25gm) 50 Ml Syringe) 0 ml IV Q30MIN PRN; Protocol PRN Reason: Hypoglycemia Famotidine (Famotidine 20 Mg/2 Ml Inj) 20 mg IV QAM [facility] Last Admin: 07/12/21 10:10 Dose: 20 mg Documented by: Heparin Sodium (Porcine) (Heparin 5,000 Unit/1 Ml Vial) 5,000 unit SUB-Q Q12HR [facility]ODI Last Admin: 07/12/21 10:10 Dose: 5,000 unit Documented by: Dexmedetomidine HCl 200 mcg/ (Sodium Chloride) 50 mls @ 2.75 mls/hr IV TITRATE [facility]; Protocol Last Admin: 07/12/21 08:04 Dose: 0.4 mcg/kg/hr, 5.5 mls/hr Documented by: Nicardipine HCl 50 mg/ Sodium (Chloride) 250 mls @ 25 mls/hr IV TITR [facility]; Protocol Last Titration: 07/12/21 12:53 Dose: 2.5 mg/hr, 12.5 mls/hr Documented by: Piperacillin Sod/Tazobactam Sod (Zosyn/Ns 2.25 Gm/50ml) 2.25 gm in 50 mls @ 100 mls/hr IV Q12H [facility] Last Admin: 07/12/21 12:54 Dose: 100 mls/hr Documented by: Insulin Human Lispro (Insulin Lispro 100 Unit/Ml) 0 unit SUB-Q ACHS [facility]; Protocol Last Admin: 07/12/21 12:25 Dose: Not Given Documented by: Labetalol HCl (Labetalol 20 Mg/4 Ml Inj) 10 mg IV Q8HR [facility] Last Admin: 07/12/21 13:41 Dose: 10 mg Documented by: Ondansetron HCl (Ondansetron 4 Mg/2 Ml Inj) 4 mg IV Q8H PRN PRN Reason: Nausea And Vomiting Sodium Chloride (Sodium Chloride 0.9% 10 Ml Flush Syringe) 10 ml IV BID [facility] Last Admin: 07/12/21 10:10 Dose: 10 ml Documented by: Sodium Chloride (Sodium Chloride 0.9% 10 Ml Flush Syringe) 10 ml IV PRN PRN PRN Reason: LINE FLUSH Review of Systems All systems: negative Physical Examination Vital signs: Vital Signs Pulse Ox 94 07/10/21 20:45 General appearance: no acute distress, alert Eyes: non-icteric ENT: oropharynx moist Neck: supple Ascultation: Bilateral: rales Percussion: Bilateral: not dull Cardiovascular: regular rate and rhythm Gastrointestinal: normoactive bowel sounds, soft Extremities: pink and warm, pulses normal Results - Laboratory Findings CBC and BMP: 07/12/21 04:43 07/12/21 04:43 ABG ABG pH 7.432 (7.320-7.450) 07/12/21 11:00 POC ABG pCO2 39.6 mmHg (32.0-48.0) 07/12/21 11:00 ABG pCO2 45.6 mm Hg 07/11/21 11:38 POC ABG pO2 87.9 mmHg (83-108) 07/12/21 11:00 ABG pO2 78.8 mm Hg (80.0-90.0) L 07/11/21 11:38 POC ABG HCO3 25.8 07/12/21 11:00 ABG O2 Saturation 96.1 (0-100) 07/12/21 11:00 Abnormal lab findings: Abnormal Labs 07/10/21 07/10/21 07/10/21 21:38 21:38 21:38 WBC 4.2 L RBC Hgb 9.2 L Hct 29.6 L MCH 25 L RDW 17.1 H [place] % (Auto) 13.8 H Baso % (Auto) 2.8 H Lymph # (Auto) 0.9 L APTT 40.5 H ABG pH ABG pO2 ABG O2 Saturation ABG Hemoglobin ABG Sodium Oxyhemoglobin Sodium 136 L Chloride 95.3 L BUN 35 H Creatinine 6.6 H POC Glucose Lactic Acid AST ALT Total Creatine Kinase Troponin T 0.035 H NT-Pro-B Natriuret Pep Total Protein 8.7 H Cholesterol 233 H LDL Cholesterol Direct 157 H 07/10/21 07/11/21 07/11/21 21:38 08:20 10:03 WBC RBC Hgb Hct MCH RDW [place] % (Auto) Baso % (Auto) Lymph # (Auto) APTT ABG pH ABG pO2 ABG O2 Saturation ABG Hemoglobin ABG Sodium Oxyhemoglobin Sodium Chloride BUN Creatinine POC Glucose 112 H Lactic Acid 0.60 L AST ALT Total Creatine Kinase Troponin T NT-Pro-B Natriuret Pep 69682 H Total Protein Cholesterol LDL Cholesterol Direct 07/11/21 07/11/21 07/11/21 11:27 11:38 Unknown WBC RBC Hgb Hct MCH RDW [place] % (Auto) Baso % (Auto) Lymph # (Auto) APTT ABG pH 7.343 L ABG pO2 78.8 L ABG O2 Saturation 94.8 L ABG Hemoglobin 10.1 L ABG Sodium Oxyhemoglobin 92.5 L Sodium Chloride BUN Creatinine POC Glucose 155 H Lactic Acid AST ALT Total Creatine Kinase 136 H Troponin T NT-Pro-B Natriuret Pep Total Protein Cholesterol LDL Cholesterol Direct 07/11/21 07/12/21 07/12/21 Unknown 04:43 04:43 WBC RBC 3.36 L Hgb 8.4 L Hct 26.6 L MCH 25 L RDW 16.7 H [place] % (Auto) 12.4 H Baso % (Auto) 2.2 H Lymph # (Auto) 1.0 L APTT ABG pH ABG pO2 ABG O2 Saturation ABG Hemoglobin ABG Sodium Oxyhemoglobin Sodium Chloride 95.2 L BUN 31 H Creatinine 5.4 H POC Glucose Lactic Acid AST 153 H ALT 117 H Total Creatine Kinase Troponin T 0.037 H NT-Pro-B Natriuret Pep Total Protein Cholesterol LDL Cholesterol Direct 07/12/21 11:00 WBC RBC Hgb Hct MCH RDW [place] % (Auto) Baso % (Auto) Lymph # (Auto) APTT ABG pH ABG pO2 ABG O2 Saturation ABG Hemoglobin 8.4 L ABG Sodium 135.3 L Oxyhemoglobin Sodium Chloride BUN Creatinine POC Glucose Lactic Acid AST ALT Total Creatine Kinase Troponin T NT-Pro-B Natriuret Pep Total Protein Cholesterol LDL Cholesterol Direct - Diagnostic Findings Chest x-ray: image reviewed (cardiomegaly with pulmonary edema) Assessment and Plan 60 y/o female with ESRD on HD TTS admitted with acute respiratory failure secondary to volume overload. 1. Continue precedex for now 2. Wean off either during HD or post if BP becomes an issue 3. Monitor in unit tonight and likely transfer out in the am as she is on room air now. If bed is needed may move sooner.
--- NOTE | 2021-07-12 15:40 | Consultation ---
History of Present Illness Consult date: 07/12/21 Requesting physician: ARNOLD BRENNAN Consult reason: congestive heart failure History of present illness: Patient is a 60-year-old female with significant history of hypertension, CVA, diabetes, ESRD on dialysis. She is previously unknown to our practice. Patient presents to [facility] via EMS for acute respiratory failure. Initial O2 sats were 84% on room air. Cardiology is consulted for h eart failure, significantly elevated BNP, elevated troponin. At time of cardiology eval patient is sedated and on CPAP thus history is obtained via the chart. Past History Past Medical History: diabetes, ESRD, hypertension, seizures, stroke, other (Hyperparathyroidism, headache migraine) Medications and Allergies Allergies Allergy/AdvReac Type Severity Reaction Status Date / Time No Known Allergies Allergy Unverified 07/10/21 20:57 Home Medications Medication Instructions Recorded Confirmed Last Taken Type Atorvastatin [Lipitor Tab] 80 mg PO DAILY 07/12/21 07/12/21 Unknown History Clopidogrel [Plavix] 75 mg PO QDAY 07/12/21 07/12/21 Unknown History Gabapentin [Neurontin] 600 mg PO Q8H 07/12/21 07/12/21 Unknown History Icosapent Ethyl [Vascepa] 2 gm PO BID 07/12/21 07/12/21 Unknown History Isosorbide Mononitrate [Isosorbide 30 mg PO DAILY 07/12/21 07/12/21 Unknown History Mononitrate ER] Losartan [Cozaar] 25 mg PO BID 07/12/21 07/12/21 Unknown History NIFEdipine [Nifedipine ER] 90 mg PO BID 07/12/21 07/12/21 Unknown History Spironolactone [Aldactone] 50 mg PO HS 07/12/21 07/12/21 Unknown History Velphoro (Nf) 2 gm PO TID 07/12/21 07/12/21 Unknown History hydrALAZINE [Apresoline TAB] 25 mg PO BID 07/12/21 07/12/21 Unknown History labetaloL [Labetalol 200mg TAB] 600 mg PO BID 07/12/21 07/12/21 Unknown History traZODone [Desyrel] 50 mg PO HS 07/12/21 07/12/21 Unknown History Active Meds: Active Medications Acetaminophen (Acetaminophen 325 Mg Tab) 650 mg PO Q4H PRN PRN Reason: Pain MILD(1-3)/Fever >100.5/COWART Acetaminophen (Acetaminophen 650 Mg Rect Supp) 650 mg [place] Q4H PRN PRN Reason: Pain, Mild (1-3) Last Admin: 07/12/21 03:52 Dose: 650 mg Documented by: Albuterol (Albuterol 2.5 Mg/3 Ml Nebu) 2.5 mg IH Q4HRT PRN PRN Reason: Shortness Of Breath Albuterol/Ipratropium (Ipratropium/Albuterol Sulfate 3 Ml Ampul.Neb) 1 ampul IH Q6HRT [facility] Last Admin: 07/12/21 09:13 Dose: 1 ampul Documented by: Dextrose (Dextrose 50% In Water (25gm) 50 Ml Syringe) 0 ml IV Q30MIN PRN; Protocol PRN Reason: Hypoglycemia Famotidine (Famotidine 20 Mg/2 Ml Inj) 20 mg IV QAM [facility] Last Admin: 07/12/21 10:10 Dose: 20 mg Documented by: Heparin Sodium (Porcine) (Heparin 5,000 Unit/1 Ml Vial) 5,000 unit SUB-Q Q12HR [facility]ODI Last Admin: 07/12/21 10:10 Dose: 5,000 unit Documented by: Dexmedetomidine HCl 200 mcg/ (Sodium Chloride) 50 mls @ 2.75 mls/hr IV TITRATE [facility]; Protocol Last Admin: 07/12/21 08:04 Dose: 0.4 mcg/kg/hr, 5.5 mls/hr Documented by: Nicardipine HCl 50 mg/ Sodium (Chloride) 250 mls @ 25 mls/hr IV TITR [facility]; Protocol Last Titration: 07/12/21 12:53 Dose: 2.5 mg/hr, 12.5 mls/hr Documented by: Piperacillin Sod/Tazobactam Sod (Zosyn/Ns 2.25 Gm/50ml) 2.25 gm in 50 mls @ 100 mls/hr IV Q12H [facility] Last Admin: 07/12/21 12:54 Dose: 100 mls/hr Documented by: Insulin Human Lispro (Insulin Lispro 100 Unit/Ml) 0 unit SUB-Q ACHS [facility]; Protocol Last Admin: 07/12/21 12:25 Dose: Not Given Documented by: Labetalol HCl (Labetalol 20 Mg/4 Ml Inj) 10 mg IV Q8HR [facility] Last Admin: 07/12/21 13:41 Dose: 10 mg Documented by: Ondansetron HCl (Ondansetron 4 Mg/2 Ml Inj) 4 mg IV Q8H PRN PRN Reason: Nausea And Vomiting Sodium Chloride (Sodium Chloride 0.9% 10 Ml Flush Syringe) 10 ml IV BID [facility] Last Admin: 07/12/21 10:10 Dose: 10 ml Documented by: Sodium Chloride (Sodium Chloride 0.9% 10 Ml Flush Syringe) 10 ml IV PRN PRN PRN Reason: LINE FLUSH Review of Systems ROS unobtainable: due to mental status Physical Examination Last Vital Signs Temp 98.9 F 07/12/21 11:23 Pulse 72 07/12/21 13:41 Resp 17 07/12/21 12:15 BP 147/72 07/12/21 13:41 Pulse Ox 96 07/12/21 12:15 General appearance: other HEENT: Positive: Other Neck: Positive: neck supple Cardiac: Positive: Reg Rate and Rhythm Lungs: Positive: Other Neuro: Positive: Other Abdomen: Positive: Unremarkable, Soft Skin: Positive: Clear Musculoskeletal: other Extremities: Absent: edema Results 07/12/21 04:43 07/12/21 04:43 Cardiac Enzymes 07/12/21 Range/Units 04:43 AST 153 H (5-40) units/L CBC 07/12/21 Range/Units 04:43 WBC 5.2 (4.5-11.0) K/mm3 RBC 3.36 L (3.65-5.03) M/mm3 Hgb 8.4 L (10.1-14.3) gm/dl Hct 26.6 L (30.3-42.9) % Plt Count 183 (140-440) K/mm3 Lymph # (Auto) 1.0 L (1.2-5.4) K/mm3 [place] # (Auto) 0.6 (0.0-0.8) K/mm3 Eos # (Auto) 0.0 (0.0-0.4) K/mm3 Baso # (Auto) 0.1 (0.0-0.1) K/mm3 Comprehensive Metabolic Panel 07/12/21 Range/Units 04:43 Sodium 138 (137-145) mmol/L Potassium 3.9 (3.6-5.0) mmol/L Chloride 95.2 L (98-107) mmol/L Carbon Dioxide 25 (22-30) mmol/L BUN 31 H (7-17) mg/dL Creatinine 5.4 H (0.6-1.2) mg/dL Glucose 80 (65-100) mg/dL Calcium 9.8 (8.4-10.2) mg/dL AST 153 H (5-40) units/L ALT 117 H (7-56) units/L Alkaline Phosphatase 71 (35-129) units/L Total Protein 7.5 (6.3-8.2) g/dL Albumin 4.0 (3.9-5) g/dL - Imaging and Cardiology Echo: pending EKG: report reviewed - EKG Interpretation EKG: sinus rhythm EKG interpretations - Telemetry EKG Rhythm: Sinus Rhythm Assessment and Plan Congestive heart failure/volume overload in setting of ESRD on HD * Patient is currently sedated and on CPAP due to pulmonary edema and altered mental status * Nephrology is following undergoing HD * Echocardiogram is pending History of hypertension * Patient is currently normotensive * Continue current antihypertensive regimen as tolerated Patient is in guarded cardiac status. Echocardiogram is pending we will follow This patient was seen in conjunction with Dr Padilla who agrees with this assessment and plan of care - Patient Problems (1) DVT prophylaxis Current Visit: Yes Status: Acute (2) Diabetes Current Visit: Yes Status: Acute (3) End stage renal disease on dialysis Current Visit: Yes Status: Acute (4) Hypertension Current Visit: Yes Status: Acute (5) Volume overload Current Visit: Yes Status: Acute
[2021-07-12] MEDS ORDERED: DEXTROSE 50% IN WATER (25GM) 50 ML SYRINGE IV PRN (17:22)
--- NOTE | 2021-07-12 17:27 | Progress Note ---
<TERRELLCaritoWALTERKristina - Last Filed: 07/12/21 17:36> Assessment and Plan Assessment and plan: This is 60-year-old female with HTN, CVA, DM, ESRD on HD, hyperparathyroidism, CHF admitted for volume overload, possible acute CHF exacerbation and acute hypoxic respiratory distress. Neuro: Acute agitation, h/o CVA -Transfer to ICU for Precedex drip -Continue Precedex drip for now -Avoid delirium -Reorientation as needed -Maintain sleep-wake cycle Cardio: Congestive heart failure/volume overload, h/o HTN -Cardiology consulted, appreciate recommendations -Continue home antihypertensive regimen -Titrated down today due to low to normal-blood pressures -Echocardiogram pending -Blood pressure monitor per protocol -Cardene gtt -wean off as tolerated -Blood pressure monitoring per protocol Respiratory: Acute respiratory failure -Pulmicort consulted, appreciate recommendations -S/p BiPAP therapy -Wean to Ventimask -On room air per patient -Supplemental oxygen as needed -SPO2 monitoring -Pulmonary hygiene GI: NAD -PPI -renal diet -BR: Senna -24 hour -4L via HD : Urinary retention?, ESRD on HD -Place garrison -RN states bladder scanner is not picking up any urine however bladder is firm to palpation and patient states that she needs to void -HD per nephrology -Nephrology consulted, appreciate recommendations -Trend BMP -Avoid nephrotoxic medications -Renally dose medications Heme: Anemia of chronic disease -Trend CBC -Transfuse for hemoglobin less than 7 -SCDs to BLE while in bed -Heparin subq ID: Febrile illness -COVID-19 PCR negative -Cultured 07/10 -Patient is spiking temperatures -Reculture with next temperature spike -ABX: Zosyn and vancomycin -Trend WBC and fever curve -Follow-up cultures Endo: h/o DM -SSI -Accu-Cheks AC at bedtime -CC renal diet -Avoid hypoglycemia The high probability of a clinically significant, sudden or life threatening deterioration of the [resp] system(s) required my full and direct attention, intervention and personal management. The aggregate critical care time was [60] minutes. This time is in addition to time spent performing reported procedures but includes the following: [x] Data Review and interpretation [x] Patient assessment and monitoring of vital signs [x] Documentation [x] Medication orders and management Disposition Plan: icu Total Time Spent with Patient (Minutes): 60 History Interval history: This is a 60-year-old female with HTN, CVA, DM, ESRD on HD, pacemaker/AICD?, cardiac arrest x1 and hyperparathyroidism who presented to emergency department with headache, abdominal pain, insomnia, missed dialysis on 07/10 via EMS. Per EMS on arrival patient SPO2 on room air was 84% and she was placed on 3 L nasal cannula with improvement to 92%. Work-up in the emergency department revealed elevated BUN/creatinine, elevated proBNP,elevated troponins and CXR was suspicious for acute CHF exacerbation. Patient was admitted to the hospital service with consult to nephrology. 07/11: Patient transferred to IMCU/ICU for agitation, hypoxia. Cardiology was consulted and echocardiogram was ordered. Patient was placed on BiPAP therapy and received hemodialysis with removal of 4 L. FiO2 was able to be decreased to 50% after dialysis. 07/12: Patient was weaned off of BiPAP to Ventimask which she removed. HD scheduled for today. Patient is on a Precedex drip for agitation and will titrate off as tolerated. Possible transfer out of the unit tomorrow. COVID-19 PCR negative Hospitalist Physical - Constitutional Vitals: Temp Pulse Resp BP Pulse Ox 99.4 F 70 17 161/68 96 07/12/21 16:18 07/12/21 15:30 07/12/21 12:15 07/12/21 15:30 07/12/21 12:15 General appearance: Present: other (awaken to verbal stimuli) - EENT Eyes: Present: PERRL, EOM intact ENT: hearing intact, clear oral mucosa, dentition normal - Respiratory Respiratory effort: normal Respiratory: bilateral: CTA - Cardiovascular Rhythm: regular Heart Sounds: Present: S1 & S2. Absent: systolic murmur, diastolic murmur - Extremities Extremities: no ischemia, pulses intact, pulses symmetrical, No edema, normal temperature, normal color, Full ROM Peripheral Pulses: within normal limits - Abdominal General gastrointestinal: soft, non-tender, non-distended, normal bowel sounds - Integumentary Integumentary: Present: warm, dry - Psychiatric Psychiatric: agitated - Neurologic Neurologic: CNII-XII intact, no focal deficits, moves all extremities - Allied Health Allied health notes reviewed: nursing, RT, social work HEART Score - HEART Score Troponin: Troponin T 0.037 ng/mL (0.00-0.029) H 07/11/21 Unknown Results - Labs CBC & Chem 7: 07/12/21 04:43 07/12/21 04:43 Labs: Laboratory Last Values WBC 5.2 K/mm3 (4.5-11.0) 07/12/21 04:43 RBC 3.36 M/mm3 (3.65-5.03) L 07/12/21 04:43 Hgb 8.4 gm/dl (10.1-14.3) L 07/12/21 04:43 Hct 26.6 % (30.3-42.9) L 07/12/21 04:43 MCV 79 fl (79-97) 07/12/21 04:43 MCH 25 pg (28-32) L 07/12/21 04:43 MCHC 32 % (30-34) 07/12/21 04:43 RDW 16.7 % (13.2-15.2) H 07/12/21 04:43 Plt Count 183 K/mm3 (140-440) 07/12/21 04:43 Lymph % (Auto) 19.8 % (13.4-35.0) 07/12/21 04:43 Buchanan % (Auto) 12.4 % (0.0-7.3) H 07/12/21 04:43 Eos % (Auto) 0.4 % (0.0-4.3) 07/12/21 04:43 Baso % (Auto) 2.2 % (0.0-1.8) H 07/12/21 04:43 Lymph # (Auto) 1.0 K/mm3 (1.2-5.4) L 07/12/21 04:43 Buchanan # (Auto) 0.6 K/mm3 (0.0-0.8) 07/12/21 04:43 Eos # (Auto) 0.0 K/mm3 (0.0-0.4) 07/12/21 04:43 Baso # (Auto) 0.1 K/mm3 (0.0-0.1) 07/12/21 04:43 Seg Neutrophils % 65.2 % (40.0-70.0) 07/12/21 04:43 Seg Neutrophils # 3.4 K/mm3 (1.8-7.7) 07/12/21 04:43 APTT 40.5 Sec. (24.2-36.6) H 07/10/21 21:38 ABG pH 7.432 (7.320-7.450) 07/12/21 11:00 POC ABG pCO2 39.6 mmHg (32.0-48.0) 07/12/21 11:00 ABG pCO2 45.6 mm Hg 07/11/21 11:38 POC ABG pO2 87.9 mmHg (83-108) 07/12/21 11:00 ABG pO2 78.8 mm Hg (80.0-90.0) L 07/11/21 11:38 POC ABG HCO3 25.8 07/12/21 11:00 ABG HCO3 24.2 mmol/L (20.0-26.0) 07/11/21 11:38 ABG O2 Saturation 96.1 (0-100) 07/12/21 11:00 POC ABG Base Excess 1.5 07/12/21 11:00 ABG Base Excess -1.6 mmol/L (-2.0-3.0) 07/11/21 11:38 ABG Hemoglobin 8.4 (12.0-17.5) L 07/12/21 11:00 ABG Oxyhemoglobin 95.1 (94-98) 07/12/21 11:00 ABG Carboxyhemoglobin 2.0 % (0.0-5.0) 07/11/21 11:38 ABG Methemoglobin 0.3 (0.0-1.5) 07/12/21 11:00 ABG Sodium 135.3 mmol/L (136.0-145.0) L 07/12/21 11:00 ABG Potassium 3.8 mmol/L (3.40-4.50) 07/12/21 11:00 ABG Chloride 98.0 mmol/L (98-107) 07/12/21 11:00 ABG Glucose 74 mg/dL (65-95) 07/12/21 11:00 Oxyhemoglobin 92.5 % (95.0-99.0) L 07/11/21 11:38 Carboxyhemoglobin 0.7 (0.5-1.5) 07/12/21 11:00 FiO2 100 % 07/11/21 11:38 FiO2 % 40 07/12/21 11:00 Sodium 138 mmol/L (137-145) 07/12/21 04:43 Potassium 3.9 mmol/L (3.6-5.0) 07/12/21 04:43 Chloride 95.2 mmol/L (98-107) L 07/12/21 04:43 Carbon Dioxide 25 mmol/L (22-30) 07/12/21 04:43 Anion Gap 22 mmol/L 07/12/21 04:43 BUN 31 mg/dL (7-17) H 07/12/21 04:43 Creatinine 5.4 mg/dL (0.6-1.2) H 07/12/21 04:43 Estimated GFR 10 ml/min 07/12/21 04:43 BUN/Creatinine Ratio 6 % 07/12/21 04:43 Glucose 80 mg/dL (65-100) 07/12/21 04:43 POC Glucose 74 mg/dL (70-105) 07/12/21 11:02 Lactic Acid 0.60 mmol/L (0.7-2.0) L 07/11/21 08:20 Calcium 9.8 mg/dL (8.4-10.2) 07/12/21 04:43 Total Bilirubin 0.60 mg/dL (0.1-1.2) 07/12/21 04:43 AST 153 units/L (5-40) H 07/12/21 04:43 ALT 117 units/L (7-56) H 07/12/21 04:43 Alkaline Phosphatase 71 units/L (35-129) 07/12/21 04:43 Total Creatine Kinase 136 units/L (30-135) H 07/11/21 Unknown Troponin T 0.037 ng/mL (0.00-0.029) H 07/11/21 Unknown NT-Pro-B Natriuret Pep 47108 pg/mL (0-900) H 07/10/21 21:38 Total Protein 7.5 g/dL (6.3-8.2) 07/12/21 04:43 Albumin 4.0 g/dL (3.9-5) 07/12/21 04:43 Albumin/Globulin Ratio 1.1 % 07/12/21 04:43 Triglycerides 82 mg/dL (2-149) 07/10/21 21:38 Cholesterol 233 mg/dL (50-199) H 07/10/21 21:38 LDL Cholesterol Direct 157 mg/dL (50-130) H 07/10/21 21:38 HDL Cholesterol 52 mg/dL (40-59) 07/10/21 21:38 Cholesterol/HDL Ratio 4.48 % 07/10/21 21:38 Arterial Blood Glucose 74 mg/dL (65-95) 07/12/21 11:00 Arterial Blood Ionized Calcium 4.9 mg/dL (4.6-5.3) 07/12/21 11:00 Coronavirus (PCR) Negative (Negative) 07/12/21 Unknown Hepatitis A IgM Ab Non-reactive (NonReactive) 07/11/21 09:48 Hep Bs Antigen Nonreactive (Negative) 07/11/21 09:48 Hep B Core IgM Ab Non-reactive (NonReactive) 07/11/21 09:48 Hepatitis C Antibody Non-reactive (NonReactive) 07/11/21 09:48 Microbiology: Microbiology 07/10/21 21:38 Peripheral/Venous Blood Culture - Preliminary NO GROWTH AFTER 24 HOURS 07/10/21 21:44 Peripheral/Venous Blood Culture - Preliminary NO GROWTH AFTER 24 HOURS Garrison/IV: Voiding Method Diaper Active Medications - Current Medications Current Medications: Generic Name Dose Route Start Last Admin Trade Name Freq PRN Reason Stop Dose Admin Acetaminophen 650 mg 07/11/21 00:53 Acetaminophen 325 Mg Tab PO Q4H PRN Pain MILD(1-3)/Fever >100.5/COWART Acetaminophen 650 mg 07/12/21 03:40 07/12/21 03:52 Acetaminophen 650 Mg Rect Supp SC 650 mg Q4H PRN Administration Pain, Mild (1-3) Albuterol 2.5 mg 07/11/21 00:53 Albuterol 2.5 Mg/3 Ml Nebu IH Q4HRT PRN Shortness Of Breath Albuterol/Ipratropium 1 ampul 07/11/21 02:00 07/12/21 09:13 Ipratropium/Albuterol Sulfate 3 Ml Ampul.Neb IH 1 ampul Q6HRT JODI Administration Dextrose 0 ml 07/11/21 00:55 Dextrose 50% In Water (25gm) 50 Ml Syringe IV Q30MIN PRN Hypoglycemia Protocol Dextrose 50 ml 07/12/21 17:22 Dextrose 50% In Water (25gm) 50 Ml Syringe IV Q30MIN PRN Hypoglycemia Protocol Famotidine 20 mg 07/12/21 10:00 07/12/21 10:10 Famotidine 20 Mg/2 Ml Inj IV 20 mg QAM JODI Administration Heparin Sodium (Porcine) 5,000 unit 07/11/21 10:00 07/12/21 10:10 Heparin 5,000 Unit/1 Ml Vial SUB-Q 5,000 unit Q12HR JODI Administration Dexmedetomidine HCl 200 mcg/ 50 mls @ 2.75 mls/hr 07/11/21 17:00 07/12/21 08:04 Sodium Chloride IV 0.4 mcg/kg/hr TITRATE JODI 5.5 mls/hr Administration Protocol 0.2 MCG/KG/HR Nicardipine HCl 50 mg/ Sodium 250 mls @ 25 mls/hr 07/11/21 22:00 07/12/21 12:53 Chloride IV 2.5 mg/hr TITR JODI 12.5 mls/hr Titration Protocol 5 MG/HR Piperacillin Sod/Tazobactam Sod 2.25 gm in 50 mls @ 100 mls/hr 07/12/21 12:00 07/12/21 12:54 Zosyn/Ns 2.25 Gm/50ml IV 100 mls/hr Q12H JODI Administration Insulin Human Lispro 0 unit 07/11/21 07:30 07/12/21 12:25 Insulin Lispro 100 Unit/Ml SUB-Q Not Given ACHS JODI Protocol Labetalol HCl 10 mg 07/12/21 14:00 07/12/21 13:41 Labetalol 20 Mg/4 Ml Inj IV 10 mg Q8HR JODI Administration Ondansetron HCl 4 mg 07/11/21 00:53 Ondansetron 4 Mg/2 Ml Inj IV Q8H PRN Nausea And Vomiting Senna 17.2 mg 07/12/21 22:00 Sennosides 8.6 Mg Tab PO QHS JODI Sodium Chloride 10 ml 07/11/21 10:00 07/12/21 10:10 Sodium Chloride 0.9% 10 Ml Flush Syringe IV 10 ml BID JODI Administration Sodium Chloride 10 ml 07/11/21 00:53 Sodium Chloride 0.9% 10 Ml Flush Syringe IV PRN PRN LINE FLUSH Nutrition/Malnutrition Assess - Dietary Evaluation Nutrition/Malnutrition Findings: Nutrition Notes Start: 07/12/21 14:50 Freq: Status: Active Protocol: Document 07/12/21 14:50 KALA (Rec: 07/12/21 15:22 KALA [id number]) Nutrition Notes Need for Assessment generated from: MD Order,MST,Education Initial or Follow up Assessment Current Diagnosis CKD (stage V CKD),Diabetes, Hypertension Other Pertinent Diagnosis ESRD+HD, Vol. Overload, CVA. Current Diet Renal Diet (since B 07/11). Labs/Tests 07/12: Cl 95.2, BUN 31, Crea 5 .4, ASt 153, ALT 117, T Creatinine K 136, Troponin T 0 .037. Pertinent Medications 07/12: Nutritionally unremarkable. Height 5 ft 2 in Weight 53.9 kg Hooks Body Weight (kg) 50.00 BMI 21.7 Weight Status Appropriate Subjective/Other Information RD consult for Nutrition Education, and Malnutrition risk assessment; MST = 2. Pt shows no signs of concern for malnutrition risk at the time, according to Physical Assessment History notes. Percent of energy/protein needs met: Prescribed Renal Diet provides for energy/protein needs (2, 072 Kcal/77 g) during LOS. Burn Absent Trauma Absent GI Symptoms None Food Allergy No Skin Integrity/Comment Clear, warm, dry. Current % PO Negligible Minimum of two criteria No #2 Nutrition Diagnosis No nutrition diagnosis at this time Comments: Pt shows no signs of concern for malnutrition risk at the time, according to Physical Assessment History notes. #1 Nutrition Diagnosis Food and nutrition-related knowledge deficit Etiology Ongoing and concomitant chronic metabolic conditions. As Evidenced by Signs and Symptoms Abnormal chemistry lab values, MD request for nutrition education. Is patient on ventilator? No Is Patient Ambulatory and/or Out of Bed Yes REE-(Estill-St. Jeor-ambulatory/OOB) [ 1380.925 [id number]] Kcal/Kg value to use for calculation 30 Approximate Energy Requirements Using 1617 kcal/Kg Calculation Used for Recommendations Kcal/kg Additional Notes Protein: 1-1.2 g/Kg; 50-60 g/ day (from IBW + critical care) . Fluids: 1 ml/Kcal, or as per MD. Nutrition Intervention Change Diet Order: Continue Renal Diet. Education Handouts Provided AND: General, Healthful Mediterranean Nutrition Therapy, Hypertension Nutrition Therapy, and MyPlate for Meal Planning. Goal #1 During LOS, provide Pt with nutrition education to foster behavioral changes towards a healthy lifestyle. Goal #2 Maintain body weight within +/ -3% of admission BWt during LOS. Goal #3 Reach and maintain acceptable chemistry lab values during LOS. Follow-Up By: 07/26/21 Additional Comments Continue monitoring food tolerance, %PO intake of meals , Hydration, and BM. <ARNOLD BRENNAN R - Last Filed: 07/12/21 22:39> History Interval history: Chart revieed, pt examined and d/w [employer] Hospitalist Physical - Constitutional Vitals: Temp Pulse Resp BP Pulse Ox 99.5 F 70 22 126/60 99 07/12/21 19:35 07/12/21 22:00 07/12/21 22:00 07/12/21 22:00 07/12/21 22:00 HEART Score - HEART Score Troponin: Troponin T 0.037 ng/mL (0.00-0.029) H 07/11/21 Unknown Results - Labs CBC & Chem 7: 07/12/21 04:43 07/12/21 19:37 Labs: Laboratory Last Values WBC 5.2 K/mm3 (4.5-11.0) 07/12/21 04:43 RBC 3.36 M/mm3 (3.65-5.03) L 07/12/21 04:43 Hgb 8.4 gm/dl (10.1-14.3) L 07/12/21 04:43 Hct 26.6 % (30.3-42.9) L 07/12/21 04:43 MCV 79 fl (79-97) 07/12/21 04:43 MCH 25 pg (28-32) L 07/12/21 04:43 MCHC 32 % (30-34) 07/12/21 04:43 RDW 16.7 % (13.2-15.2) H 07/12/21 04:43 Plt Count 183 K/mm3 (140-440) 07/12/21 04:43 Lymph % (Auto) 19.8 % (13.4-35.0) 07/12/21 04:43 Buchanan % (Auto) 12.4 % (0.0-7.3) H 07/12/21 04:43 Eos % (Auto) 0.4 % (0.0-4.3) 07/12/21 04:43 Baso % (Auto) 2.2 % (0.0-1.8) H 07/12/21 04:43 Lymph # (Auto) 1.0 K/mm3 (1.2-5.4) L 07/12/21 04:43 Buchanan # (Auto) 0.6 K/mm3 (0.0-0.8) 07/12/21 04:43 Eos # (Auto) 0.0 K/mm3 (0.0-0.4) 07/12/21 04:43 Baso # (Auto) 0.1 K/mm3 (0.0-0.1) 07/12/21 04:43 Seg Neutrophils % 65.2 % (40.0-70.0) 07/12/21 04:43 Seg Neutrophils # 3.4 K/mm3 (1.8-7.7) 07/12/21 04:43 APTT 40.5 Sec. (24.2-36.6) H 07/10/21 21:38 ABG pH 7.432 (7.320-7.450) 07/12/21 11:00 POC ABG pCO2 39.6 mmHg (32.0-48.0) 07/12/21 11:00 ABG pCO2 45.6 mm Hg 07/11/21 11:38 POC ABG pO2 87.9 mmHg (83-108) 07/12/21 11:00 ABG pO2 78.8 mm Hg (80.0-90.0) L 07/11/21 11:38 POC ABG HCO3 25.8 07/12/21 11:00 ABG HCO3 24.2 mmol/L (20.0-26.0) 07/11/21 11:38 ABG O2 Saturation 96.1 (0-100) 07/12/21 11:00 POC ABG Base Excess 1.5 07/12/21 11:00 ABG Base Excess -1.6 mmol/L (-2.0-3.0) 07/11/21 11:38 ABG Hemoglobin 8.4 (12.0-17.5) L 07/12/21 11:00 ABG Oxyhemoglobin 95.1 (94-98) 07/12/21 11:00 ABG Carboxyhemoglobin 2.0 % (0.0-5.0) 07/11/21 11:38 ABG Methemoglobin 0.3 (0.0-1.5) 07/12/21 11:00 ABG Sodium 135.3 mmol/L (136.0-145.0) L 07/12/21 11:00 ABG Potassium 3.8 mmol/L (3.40-4.50) 07/12/21 11:00 ABG Chloride 98.0 mmol/L (98-107) 07/12/21 11:00 ABG Glucose 74 mg/dL (65-95) 07/12/21 11:00 Oxyhemoglobin 92.5 % (95.0-99.0) L 07/11/21 11:38 Carboxyhemoglobin 0.7 (0.5-1.5) 07/12/21 11:00 FiO2 100 % 07/11/21 11:38 FiO2 % 40 07/12/21 11:00 Sodium 138 mmol/L (137-145) 07/12/21 04:43 Potassium 4.1 mmol/L (3.6-5.0) 07/12/21 19:37 Chloride 95.2 mmol/L (98-107) L 07/12/21 04:43 Carbon Dioxide 25 mmol/L (22-30) 07/12/21 04:43 Anion Gap 22 mmol/L 07/12/21 04:43 BUN 31 mg/dL (7-17) H 07/12/21 04:43 Creatinine 5.4 mg/dL (0.6-1.2) H 07/12/21 04:43 Estimated GFR 10 ml/min 07/12/21 04:43 BUN/Creatinine Ratio 6 % 07/12/21 04:43 Glucose 80 mg/dL (65-100) 07/12/21 04:43 POC Glucose 131 mg/dL (70-105) H 07/12/21 19:12 Lactic Acid 0.60 mmol/L (0.7-2.0) L 07/11/21 08:20 Calcium 9.8 mg/dL (8.4-10.2) 07/12/21 04:43 Magnesium 2.60 mg/dL (1.7-2.3) H 07/12/21 19:37 Total Bilirubin 0.60 mg/dL (0.1-1.2) 07/12/21 04:43 AST 153 units/L (5-40) H 07/12/21 04:43 ALT 117 units/L (7-56) H 07/12/21 04:43 Alkaline Phosphatase 71 units/L (35-129) 07/12/21 04:43 Total Creatine Kinase 136 units/L (30-135) H 07/11/21 Unknown Troponin T 0.037 ng/mL (0.00-0.029) H 07/11/21 Unknown NT-Pro-B Natriuret Pep 86830 pg/mL (0-900) H 07/10/21 21:38 Total Protein 7.5 g/dL (6.3-8.2) 07/12/21 04:43 Albumin 4.0 g/dL (3.9-5) 07/12/21 04:43 Albumin/Globulin Ratio 1.1 % 07/12/21 04:43 Triglycerides 82 mg/dL (2-149) 07/10/21 21:38 Cholesterol 233 mg/dL (50-199) H 07/10/21 21:38 LDL Cholesterol Direct 157 mg/dL (50-130) H 07/10/21 21:38 HDL Cholesterol 52 mg/dL (40-59) 07/10/21 21:38 Cholesterol/HDL Ratio 4.48 % 07/10/21 21:38 Arterial Blood Glucose 74 mg/dL (65-95) 07/12/21 11:00 Arterial Blood Ionized Calcium 4.9 mg/dL (4.6-5.3) 07/12/21 11:00 Coronavirus (PCR) Negative (Negative) 07/12/21 Unknown Hepatitis A IgM Ab Non-reactive (NonReactive) 07/11/21 09:48 Hep Bs Antigen Nonreactive (Negative) 07/11/21 09:48 Hep B Core IgM Ab Non-reactive (NonReactive) 07/11/21 09:48 Hepatitis C Antibody Non-reactive (NonReactive) 07/11/21 09:48 Microbiology: Microbiology 07/12/21 14:18 Peripheral/Venous Blood Culture - Preliminary Culture in Progress 07/12/21 14:18 Peripheral/Venous Blood Culture - Preliminary Culture in Progress 07/10/21 21:38 Peripheral/Venous Blood Culture - Preliminary NO GROWTH AFTER 24 HOURS 07/10/21 21:44 Peripheral/Venous Blood Culture - Preliminary NO GROWTH AFTER 24 HOURS Garrison/IV: Voiding Method Diaper Active Medications - Current Medications Current Medications: Generic Name Dose Route Start Last Admin Trade Name Freq PRN Reason Stop Dose Admin Acetaminophen 650 mg 07/11/21 00:53 Acetaminophen 325 Mg Tab PO Q4H PRN Pain MILD(1-3)/Fever >100.5/COWART Acetaminophen 650 mg 07/12/21 03:40 07/12/21 03:52 Acetaminophen 650 Mg Rect Supp SC 650 mg Q4H PRN Administration Pain, Mild (1-3) Albuterol 2.5 mg 07/11/21 00:53 Albuterol 2.5 Mg/3 Ml Nebu IH Q4HRT PRN Shortness Of Breath Albuterol/Ipratropium 1 ampul 07/11/21 02:00 07/12/21 21:17 Ipratropium/Albuterol Sulfate 3 Ml Ampul.Neb IH Not Given Q6HRT JODI Atorvastatin Calcium 80 mg 07/12/21 22:00 Atorvastatin 40 Mg Tab PO QHS JODI Clopidogrel Bisulfate 75 mg 07/12/21 18:00 Clopidogrel 75 Mg Tab PO QDAY JODI Dextrose 50 ml 07/12/21 17:22 Dextrose 50% In Water (25gm) 50 Ml Syringe IV Q30MIN PRN Hypoglycemia Protocol Famotidine 20 mg 07/12/21 10:00 07/12/21 10:10 Famotidine 20 Mg/2 Ml Inj IV 20 mg QAM JODI Administration Famotidine 20 mg 07/12/21 22:00 Famotidine 20 Mg/2 Ml Inj IV BID JODI Heparin Sodium (Porcine) 5,000 unit 07/11/21 10:00 07/12/21 10:10 Heparin 5,000 Unit/1 Ml Vial SUB-Q 5,000 unit Q12HR JODI Administration Hydralazine HCl 25 mg 07/12/21 22:00 Hydralazine 25 Mg Tab PO BID JODI Hydrophilic Ointment 1 applic 07/12/21 20:55 Lip Therapy Vaseline TP Q2HR PRN Dry Lips Dexmedetomidine HCl 200 mcg/ 50 mls @ 2.75 mls/hr 07/11/21 17:00 07/12/21 19:25 Sodium Chloride IV Infused TITRATE JODI Titration Protocol 0.2 MCG/KG/HR Nicardipine HCl 50 mg/ Sodium 250 mls @ 25 mls/hr 07/11/21 22:00 07/12/21 22:30 Chloride IV 0 mg/hr TITR JODI 0 mls/hr Titration Protocol 5 MG/HR Piperacillin Sod/Tazobactam Sod 2.25 gm in 50 mls @ 100 mls/hr 07/12/21 12:00 07/12/21 12:54 Zosyn/Ns 2.25 Gm/50ml IV 100 mls/hr Q12H JODI Administration Amiodarone HCl 900 mg/ 500 mls @ 33.333 mls/hr 07/12/21 19:00 07/12/21 19:14 Dextrose IV 1 mg/min DIRECT JODI 33.333 mls/hr Administration Protocol 1 MG/MIN Propofol 1,000 mg in 100 mls @ 1.617 mls/hr 07/12/21 21:00 07/12/21 21:23 Diprivan 10 Mg/Ml IV 5 mcg/kg/min TITR JODI 1.617 mls/hr Administration Protocol 5 MCG/KG/MIN Insulin Human Lispro 0 unit 07/11/21 07:30 07/12/21 21:00 Insulin Lispro 100 Unit/Ml SUB-Q Not Given ACHS [facility] Protocol Isosorbide Mononitrate 30 mg 07/12/21 18:00 07/12/21 19:45 Isosorbide Mononitrate Er 30 Mg Tab PO Not Given DAILY [facility] Labetalol HCl 10 mg 07/12/21 14:00 07/12/21 13:41 Labetalol 20 Mg/4 Ml Inj IV 10 mg Q8HR [facility] Administration Losartan Potassium 25 mg 07/12/21 22:00 Losartan 25 Mg Tab PO BID [facility] Multi-Ingred Cream/Lotion/Oil/Oint 1 applic 07/12/21 20:55 Mineral Oil/Petrolatum, White Ophth Oint 3.5 Gm OU Q4HR PRN Dry Eye(s) Ondansetron HCl 4 mg 07/11/21 00:53 Ondansetron 4 Mg/2 Ml Inj IV Q8H PRN Nausea And Vomiting Senna/Docusate Sodium 1 tab 07/12/21 22:00 Sennosides/Docusate Sodium 8.6/50 Mg Tab FEEDTUBE BID [facility] Sodium Chloride 10 ml 07/11/21 10:00 07/12/21 10:10 Sodium Chloride 0.9% 10 Ml Flush Syringe IV 10 ml BID JODI Administration Sodium Chloride 10 ml 07/11/21 00:53 Sodium Chloride 0.9% 10 Ml Flush Syringe IV PRN PRN LINE FLUSH Nutrition/Malnutrition Assess - Dietary Evaluation Nutrition/Malnutrition Findings: Nutrition Notes Start: 07/12/21 14:50 Freq: Status: Active Protocol: Document 07/12/21 14:50 KALA (Rec: 07/12/21 15:22 KALA [id number]) Nutrition Notes Need for Assessment generated from: MD Order,MST,Education Initial or Follow up Assessment Current Diagnosis CKD (stage V CKD),Diabetes, Hypertension Other Pertinent Diagnosis ESRD+HD, Vol. Overload, CVA. Current Diet Renal Diet (since B 07/11). Labs/Tests 07/12: Cl 95.2, BUN 31, Crea 5 .4, ASt 153, ALT 117, T Creatinine K 136, Troponin T 0 .037. Pertinent Medications 07/12: Nutritionally unremarkable. Height 5 ft 2 in Weight 53.9 kg [place] Body Weight (kg) 50.00 BMI 21.7 Weight Status Appropriate Subjective/Other Information RD consult for Nutrition Education, and Malnutrition risk assessment; MST = 2. Pt shows no signs of concern for malnutrition risk at the time, according to Physical Assessment History notes. Percent of energy/protein needs met: Prescribed Renal Diet provides for energy/protein needs (2, 072 Kcal/77 g) during LOS. Burn Absent Trauma Absent GI Symptoms None Food Allergy No Skin Integrity/Comment Clear, warm, dry. Current % PO Negligible Minimum of two criteria No #2 Nutrition Diagnosis No nutrition diagnosis at this time Comments: Pt shows no signs of concern for malnutrition risk at the time, according to Physical Assessment History notes. #1 Nutrition Diagnosis Food and nutrition-related knowledge deficit Etiology Ongoing and concomitant chronic metabolic conditions. As Evidenced by Signs and Symptoms Abnormal chemistry lab values, MD request for nutrition education. Is patient on ventilator? No Is Patient Ambulatory and/or Out of Bed Yes REE-(Estill-St. Jeor-ambulatory/OOB) [ 1380.925 NUTR.MSJOOB] Kcal/Kg value to use for calculation 30 Approximate Energy Requirements Using 1617 kcal/Kg Calculation Used for Recommendations Kcal/kg Additional Notes Protein: 1-1.2 g/Kg; 50-60 g/ day (from IBW + critical care) . Fluids: 1 ml/Kcal, or as per MD. Nutrition Intervention Change Diet Order: Continue Renal Diet. Education Handouts Provided AND: General, Healthful Mediterranean Nutrition Therapy, Hypertension Nutrition Therapy, and MyPlate for Meal Planning. Goal #1 During LOS, provide Pt with nutrition education to foster behavioral changes towards a healthy lifestyle. Goal #2 Maintain body weight within +/ -3% of admission BWt during LOS. Goal #3 Reach and maintain acceptable chemistry lab values during LOS. Follow-Up By: 07/26/21 Additional Comments Continue monitoring food tolerance, %PO intake of meals , Hydration, and BM.
[2021-07-12] MEDS ORDERED: NON-FORMULARY EACH (Atorvastatin [Lipitor] 80 MG Tablet) PO SCH (17:45)
[2021-07-12] MEDS ORDERED: MORPHINE 2 MG/1 ML INJ IV ONE (18:18)
[2021-07-12] MEDS ORDERED: SODIUM CHLORIDE 0.9% 1000 ML 1,000 ML ONE (18:37)
[2021-07-12] MEDS ORDERED: MAGNESIUM SULFATE 2 GM/50 ML BAG IV ONE (18:55)
[2021-07-12] MEDS ORDERED: AMIODARONE 150 MG in DEXTROSE 5% IN WATER 97 ML IV ONE (19:00)
[2021-07-12] MEDS: AMIODARONE 900 MG in DEXTROSE 5% IN WATER 482 ML IV SCH (19:14)
[2021-07-12] MEDS: SODIUM CHLORIDE 0.9% 500 ML 500 ML IV ONE ×2 (19:30→19:35)
[2021-07-12] MEDS: CLOPIDOGREL 75 MG TAB PO SCH (19:45)
[2021-07-12] MEDS ORDERED: AMIODARONE 150 MG in DEXTROSE 5% IN WATER 100 ML IV STA (20:04)
--- NOTE | 2021-07-12 20:09 | Event Note ---
Date: 07/12/21 1805: Called to bedside by HD RN calling for help. Patient noted to be in polymorphic ventricular tachycardia, crash cart pulled to bedside. Patient placed on monitor when it was noted that AICD/pacemaker discharged shock. Patient's AICD continued to intermittently shocked the patient for approximately 45 minutes. Magnesium 2 g IVPB ordered. Given 2 mg morphine IV push given sporadic firing of AICD. Stat potassium and magnesium ordered. JEREMY Lucio with [facility] called by me and informed. He suggested amiodarone bolus of 150 mg and drip if patient has a pulse. If no pulse initiate ACLS algorithm and amiodarone 300 milligrams loading. Ordered 500 mL normal saline bolus. Amiodarone drip and bolus bolus and drip was ordered however AICD sporadically kept firing defibrillating patient. Therefore patient was given amiodarone 150 mg IV push. Attempted to place peripheral IV by Dylan DAVILA but was unsuccessful. Nuvia DAVILA informed to call ED to place EJ. Left bedside as patient AICD stopped firing. Certified Bench Jew[employer] Technician at bedside to draw labs Dr. Felix and Dr. Ritchie informed and updated of events. CCT 45 min (Not included in daily CCT)
[2021-07-12] MEDS ORDERED: ROCURONIUM 50 MG/5 ML INJ IV STA (20:30)
[2021-07-12] MEDS ORDERED: MIDAZOLAM 5 MG/5 ML INJ MDV IV STA (20:30)
[2021-07-12] MEDS ORDERED: MINERAL OIL/PETROLATUM, WHITE OPHTH OINT 3.5 GM OU PRN (20:55)
[2021-07-12] MEDS ORDERED: LIP THERAPY VASELINE TP PRN (20:55)
--- NOTE | 2021-07-12 21:31 | XRay Report ---
CHEST 1 VIEW 07/12/2021 8:54 PM INDICATION / CLINICAL INFORMATION: ETT placement. COMPARISON: 07/12/2021 FINDINGS: SUPPORT DEVICES: Endotracheal tube is in place with its tip at the james. This should be retracted 2 -3 cm. HEART / MEDIASTINUM: No significant abnormality. LUNGS / PLEURA: Significant improvement in aeration at the left chest. There is increasing volume los s/opacity at the right chest. Suspected basilar effusion remains. No pneumothorax. ADDITIONAL FINDINGS: Development of gastric distention. IMPRESSION: 1. Retract endotracheal tube 2 to 3 cm. 2. Improving appearance right chest. 3. Worsening appearance left chest. Signer Name: Holland Hylton MD Signed: 07/12/2021 9:26 PM Workstation Name: [id number]
[2021-07-12] MEDS: SENNOSIDES/DOCUSATE SODIUM 8.6/50 MG TAB FEEDTUBE SCH (22:00)
[2021-07-12] MEDS: hydrALAZINE 25 MG TAB PO SCH (22:00)
[2021-07-12] MEDS: LOSARTAN 25 MG TAB PO SCH (22:00)
[2021-07-12] MEDS ORDERED: SENNOSIDES 8.6 MG TAB PO SCH (22:00)
[2021-07-12] MEDS ORDERED: AMIODARONE 150 MG/3 ML INJ IV ONE (22:26)
--- NOTE | 2021-07-12 22:41 | Event Note ---
Date: 07/12/21 Patient noted to be in polymorphic ventricular tachycardia. AICD continue to intermittently shocked the patient for approximately 45 minutes. Magnesium 2 g IV piggyback Amiodarone bolus of 150 mg and amiodarone drip was started However his AICD was firing sporadically defibrillating the patient. Patient was intubated for sedation and possible cardioversion. Patient intubated by Dr. Iniguez. Intubation was uneventful.
--- NOTE | 2021-07-12 22:56 | XRay Report ---
ABDOMEN 1 VIEW INDICATION / CLINICAL INFORMATION: DH placement. COMPARISON: Same day chest radiograph FINDINGS: Weighted tip enteric catheter terminates over the distal stomach. If postpyloric positioning is jenny ed, consider further advancement. Signer Name: Bill Elaine MD Signed: 07/12/2021 10:52 PM Workstation Name: [id number]
[2021-07-12] MEDS: METOPROLOL TARTRATE 25 MG TAB PO SCH ×2 (23:24→23:28)
[2021-07-12] MEDS ORDERED: LIDOCAINE DRIP 2,000 MG/500 ML BAG IV SCH (23:56)
--- NOTE | 2021-07-13 00:19 | Event Note ---
Date: 07/12/21 Procedure note Intubation Called to floor to intubate the patient secondary to multiple firings of the AICD secondary to V. tach [place] scope used Intubation occurred at approximately 8:20 PM Initially a 4 MAC blade was used but due to the patient's small mouth and large tongue short neck the blade was changed to 3 Once the glide scope blade was changed to 3 intubation was done without issue Patient was sedated with 5 of Versed and given 50 mg of rocuronium for paralyzation There was good color change on the CO2 detector with breath sounds bilaterally Chest x-ray shows the ET tube to be 2 to 3 cm to deep thus the ET tube was retracted
[2021-07-13] MEDS: PIPERACIL-TAZO 2.25 GM/50 ML 2.25 GM/50 ML BAG IV SCH ×2 (00:48→11:20)
[2021-07-13] MEDS ORDERED: MIDAZOLAM 5 MG/5 ML INJ MDV IV ONE (00:55)
[2021-07-13] MEDS ORDERED: ROCURONIUM 50 MG/5 ML INJ IV ONE (00:55)
[2021-07-13 03:04] LABS: Hematocrit 30.4 % (30.3-42.9); Hemoglobin 9.4 gm/dl (10.1-14.3); Mean Corpuscular HGB Conc 31 % (30-34); Mean Corpuscular Volume 80 fl (79-97); Platelet Count 216 K/mm3 (140-440); Red Blood Count 3.78 M/mm3 (3.65-5.03); Red Cell Distribution Width 16.9 % (13.2-15.2)
[2021-07-13 03:18] LABS: Calcium 10.1 mg/dL (8.4-10.2)
[2021-07-13] MEDS: IPRATROPIUM/ALBUTEROL SULFATE 3 ML AMPUL.NEB IH SCH ×4 (04:17→19:27)
--- NOTE | 2021-07-13 10:08 | Progress Note ---
Assessment and Plan (1) End stage renal disease on dialysis (2) Volume overload (3) Diabetes (4) CVA (cerebral vascular accident) (5) Hypertension s/p HD yesterday, HD again today, volume overloaded will assess HD needs daily renally dose meds strict I&O daily weight Subjective Date of service: 07/13/21 Principal diagnosis: ESRD Interval history: Intubated on Vent. in ICU. HD today. Objective - Exam Narrative Exam: - Physical Examination General: Intubated HEENT: Positive: PERRL, Other Neck: Positive: neck supple Cardiac: Positive: Reg Rate and Rhythm Lungs: Positive: coarse BS BL Neuro: Positive: Sedated Abdomen: Positive: Unremarkable, Soft Skin: Positive: Clear Musculoskeletal: other Extremities: Absent: edema - Vital Signs Vital signs: Vital Signs - 12hr 07/12/21 07/12/21 07/12/21 22:15 22:30 22:45 Temperature Pulse Rate 70 70 70 Pulse Rate [ Anterior Bilateral Throughout] Pulse Rate [ From Monitor] Respiratory 22 22 22 Rate Respiratory Rate [Anterior Bilateral Throughout] Blood Pressure 120/63 128/66 135/66 O2 Sat by Pulse 100 99 100 Oximetry 07/12/21 07/12/21 07/12/21 22:59 23:01 23:15 Temperature Pulse Rate 74 75 76 Pulse Rate [ Anterior Bilateral Throughout] Pulse Rate [ From Monitor] Respiratory 22 22 22 Rate Respiratory Rate [Anterior Bilateral Throughout] Blood Pressure 139/67 118/59 127/66 O2 Sat by Pulse 100 99 100 Oximetry 07/12/21 07/12/21 07/12/21 23:24 23:26 23:31 Temperature Pulse Rate 81 80 Pulse Rate [ Anterior Bilateral Throughout] Pulse Rate [ From Monitor] Respiratory 18 Rate Respiratory Rate [Anterior Bilateral Throughout] Blood Pressure 123/60 118/59 O2 Sat by Pulse 100 97 Oximetry 07/12/21 07/12/21 07/13/21 23:45 23:58 00:00 Temperature 100.4 F H Pulse Rate 95 H 70 Pulse Rate [ Anterior Bilateral Throughout] Pulse Rate [ 88 From Monitor] Respiratory 18 20 Rate Respiratory Rate [Anterior Bilateral Throughout] Blood Pressure 94/54 O2 Sat by Pulse 100 100 Oximetry 07/13/21 07/13/21 07/13/21 00:01 00:03 00:15 Temperature Pulse Rate 99 H 206 H 101 H Pulse Rate [ Anterior Bilateral Throughout] Pulse Rate [ From Monitor] Respiratory 19 24 Rate Respiratory Rate [Anterior Bilateral Throughout] Blood Pressure 102/79 102/79 110/67 O2 Sat by Pulse 100 100 100 Oximetry 07/13/21 07/13/21 07/13/21 00:22 00:31 00:45 Temperature Pulse Rate 70 73 Pulse Rate [ Anterior Bilateral Throughout] Pulse Rate [ From Monitor] Respiratory 18 18 Rate Respiratory Rate [Anterior Bilateral Throughout] Blood Pressure 112/76 106/83 O2 Sat by Pulse 100 100 100 Oximetry 07/13/21 07/13/21 07/13/21 00:51 01:01 01:15 Temperature 100.4 F H Pulse Rate 83 89 Pulse Rate [ Anterior Bilateral Throughout] Pulse Rate [ From Monitor] Respiratory 20 18 18 Rate Respiratory Rate [Anterior Bilateral Throughout] Blood Pressure 160/107 162/76 O2 Sat by Pulse 100 100 Oximetry 07/13/21 07/13/21 07/13/21 01:31 01:45 01:51 Temperature Pulse Rate 75 84 Pulse Rate [ Anterior Bilateral Throughout] Pulse Rate [ From Monitor] Respiratory 18 18 20 Rate Respiratory Rate [Anterior Bilateral Throughout] Blood Pressure 139/53 128/67 O2 Sat by Pulse 100 100 Oximetry 07/13/21 07/13/21 07/13/21 02:01 02:15 02:31 Temperature Pulse Rate 119 H 76 76 Pulse Rate [ Anterior Bilateral Throughout] Pulse Rate [ From Monitor] Respiratory 18 18 18 Rate Respiratory Rate [Anterior Bilateral Throughout] Blood Pressure 141/51 133/55 137/56 O2 Sat by Pulse 100 100 Oximetry 07/13/21 07/13/21 07/13/21 02:35 02:45 03:01 Temperature Pulse Rate 89 84 75 Pulse Rate [ Anterior Bilateral Throughout] Pulse Rate [ From Monitor] Respiratory 18 18 Rate Respiratory Rate [Anterior Bilateral Throughout] Blood Pressure 146/64 153/60 O2 Sat by Pulse 100 100 Oximetry 07/13/21 07/13/21 07/13/21 03:10 03:15 03:22 Temperature 100.1 F H 102.7 F H Pulse Rate 67 Pulse Rate [ Anterior Bilateral Throughout] Pulse Rate [ From Monitor] Respiratory 18 Rate Respiratory Rate [Anterior Bilateral Throughout] Blood Pressure 89/59 O2 Sat by Pulse 100 Oximetry 07/13/21 07/13/21 07/13/21 03:31 03:45 04:00 Temperature Pulse Rate 78 71 75 Pulse Rate [ Anterior Bilateral Throughout] Pulse Rate [ From Monitor] Respiratory 18 18 20 Rate Respiratory Rate [Anterior Bilateral Throughout] Blood Pressure 148/59 139/84 O2 Sat by Pulse 100 100 100 Oximetry 07/13/21 07/13/21 07/13/21 04:01 04:04 04:15 Temperature Pulse Rate 85 84 75 Pulse Rate [ Anterior Bilateral Throughout] Pulse Rate [ From Monitor] Respiratory 18 18 Rate Respiratory Rate [Anterior Bilateral Throughout] Blood Pressure 113/62 113/62 129/60 O2 Sat by Pulse 100 100 100 Oximetry 07/13/21 07/13/21 07/13/21 04:31 04:45 05:00 Temperature Pulse Rate 81 73 82 Pulse Rate [ Anterior Bilateral Throughout] Pulse Rate [ From Monitor] Respiratory 15 18 18 Rate Respiratory Rate [Anterior Bilateral Throughout] Blood Pressure 140/64 146/62 153/65 O2 Sat by Pulse 100 100 98 Oximetry 07/13/21 07/13/21 07/13/21 05:15 05:28 05:31 Temperature Pulse Rate 76 75 Pulse Rate [ Anterior Bilateral Throughout] Pulse Rate [ From Monitor] Respiratory 17 17 Rate Respiratory Rate [Anterior Bilateral Throughout] Blood Pressure 150/125 164/69 O2 Sat by Pulse 99 99 99 Oximetry 07/13/21 07/13/21 07/13/21 05:45 06:00 06:15 Temperature Pulse Rate 70 70 70 Pulse Rate [ Anterior Bilateral Throughout] Pulse Rate [ From Monitor] Respiratory 21 19 19 Rate Respiratory Rate [Anterior Bilateral Throughout] Blood Pressure 153/65 162/73 161/74 O2 Sat by Pulse 100 99 100 Oximetry 07/13/21 07/13/21 07/13/21 06:30 06:45 07:00 Temperature Pulse Rate 70 70 70 Pulse Rate [ Anterior Bilateral Throughout] Pulse Rate [ From Monitor] Respiratory 18 19 21 Rate Respiratory Rate [Anterior Bilateral Throughout] Blood Pressure 159/70 160/71 159/69 O2 Sat by Pulse 99 100 99 Oximetry 07/13/21 07/13/21 07/13/21 07:15 07:57 08:25 Temperature 99.2 F Pulse Rate 70 70 Pulse Rate [ Anterior Bilateral Throughout] Pulse Rate [ From Monitor] Respiratory 20 Rate Respiratory Rate [Anterior Bilateral Throughout] Blood Pressure 160/71 154/56 O2 Sat by Pulse 100 100 Oximetry 07/13/21 08:26 Temperature Pulse Rate Pulse Rate [ 70 Anterior Bilateral Throughout] Pulse Rate [ From Monitor] Respiratory Rate Respiratory 16 Rate [Anterior Bilateral Throughout] Blood Pressure O2 Sat by Pulse Oximetry - Lab 07/13/21 02:55 07/13/21 02:55 Most recent lab results ABG pH 7.471 (7.320-7.450) H 07/13/21 04:03 ABG pCO2 45.6 mm Hg 07/11/21 11:38 ABG pO2 78.8 mm Hg (80.0-90.0) L 07/11/21 11:38 ABG HCO3 24.2 mmol/L (20.0-26.0) 07/11/21 11:38 ABG O2 Saturation 99.9 (0-100) 07/13/21 04:03 Calcium 10.1 mg/dL (8.4-10.2) 07/13/21 02:55 Phosphorus 6.20 mg/dL (2.5-4.5) H 07/13/21 02:55 Magnesium 2.60 mg/dL (1.7-2.3) H 07/13/21 02:55 Medications & Allergies - Medications Allergies/Adverse Reactions: Allergies No Known Allergies Allergy (Unverified 07/10/21 20:57) Home Medications: Home Medications Medication Instructions Recorded Confirmed Last Taken Type Atorvastatin [Lipitor Tab] 80 mg PO DAILY 07/12/21 07/12/21 Unknown History Clopidogrel [Plavix] 75 mg PO QDAY 07/12/21 07/12/21 Unknown History Gabapentin [Neurontin] 600 mg PO Q8H 07/12/21 07/12/21 Unknown History Icosapent Ethyl [Vascepa] 2 gm PO BID 07/12/21 07/12/21 Unknown History Isosorbide Mononitrate [Isosorbide 30 mg PO DAILY 07/12/21 07/12/21 Unknown History Mononitrate ER] Losartan [Cozaar] 25 mg PO BID 07/12/21 07/12/21 Unknown History NIFEdipine [Nifedipine ER] 90 mg PO BID 07/12/21 07/12/21 Unknown History Spironolactone [Aldactone] 50 mg PO HS 07/12/21 07/12/21 Unknown History Velphoro (Nf) 2 gm PO TID 07/12/21 07/12/21 Unknown History hydrALAZINE [Apresoline TAB] 25 mg PO BID 07/12/21 07/12/21 Unknown History labetaloL [Labetalol 200mg TAB] 600 mg PO BID 07/12/21 07/12/21 Unknown History traZODone [Desyrel] 50 mg PO HS 07/12/21 07/12/21 Unknown History Active Medications: Generic Name Dose Route Start Last Admin Trade Name Freq PRN Reason Stop Dose Admin Acetaminophen 650 mg 07/11/21 00:53 07/13/21 00:51 Acetaminophen 325 Mg Tab PO 650 mg Q4H PRN Administration Pain MILD(1-3)/Fever >100.5/COWART Acetaminophen 650 mg 07/12/21 03:40 07/12/21 03:52 Acetaminophen 650 Mg Rect Supp MI 650 mg Q4H PRN Administration Pain, Mild (1-3) Albuterol 2.5 mg 07/11/21 00:53 Albuterol 2.5 Mg/3 Ml Nebu IH Q4HRT PRN Shortness Of Breath Albuterol/Ipratropium 1 ampul 07/11/21 02:00 07/13/21 08:26 Ipratropium/Albuterol Sulfate 3 Ml Ampul.Neb IH 1 ampul Q6HRT JODI Administration Atorvastatin Calcium 80 mg 07/12/21 22:00 07/12/21 22:00 Atorvastatin 40 Mg Tab PO Not Given QHS JODI Clopidogrel Bisulfate 75 mg 07/12/21 18:00 07/12/21 19:45 Clopidogrel 75 Mg Tab PO Not Given QDAY JODI Dextrose 50 ml 07/12/21 17:22 Dextrose 50% In Water (25gm) 50 Ml Syringe IV Q30MIN PRN Hypoglycemia Protocol Famotidine 10 mg 07/13/21 10:00 Famotidine 20 Mg/2 Ml Inj IV BID JODI Heparin Sodium (Porcine) 5,000 unit 07/11/21 10:00 07/12/21 23:24 Heparin 5,000 Unit/1 Ml Vial SUB-Q 5,000 unit Q12HR JODI Administration Hydralazine HCl 25 mg 07/12/21 22:00 07/12/21 22:00 Hydralazine 25 Mg Tab PO Not Given BID JODI Hydrophilic Ointment 1 applic 07/12/21 20:55 Lip Therapy Vaseline TP Q2HR PRN Dry Lips Nicardipine HCl 50 mg/ Sodium 250 mls @ 25 mls/hr 07/11/21 22:00 07/12/21 22:30 Chloride IV 0 mg/hr TITR JODI 0 mls/hr Titration Protocol 5 MG/HR Amiodarone HCl 900 mg/ 500 mls @ 33.333 mls/hr 07/12/21 19:00 07/13/21 07:08 Dextrose IV 1 mg/min DIRECT JODI 33.333 mls/hr Infusion Protocol 1 MG/MIN Propofol 1,000 mg in 100 mls @ 1.617 mls/hr 07/12/21 21:00 07/13/21 08:01 Diprivan 10 Mg/Ml IV 20 mcg/kg/min TITR JODI 6.468 mls/hr Titration Protocol 5 MCG/KG/MIN Lidocaine HCl/Dextrose 2,000 mg in 500 mls @ 15 mls/hr 07/12/21 23:56 07/13/21 07:08 Xylocaine/D5w 2gm/500ml Drip IV 1 mg/min DIRECT JODI 15 mls/hr Titration Protocol 1 MG/MIN Piperacillin Sod/Tazobactam Sod 2.25 gm in 50 mls @ 100 mls/hr 07/13/21 08:00 Zosyn/Ns 2.25 Gm/50ml IV Q8H [facility] Protocol Sodium Chloride 100 mls @ 999 mls/hr 07/13/21 10:06 Nacl 0.9% IV GLENDY PRN Hypotension Insulin Human Lispro 0 unit 07/13/21 12:00 Insulin Lispro 100 Unit/Ml SUB-Q Q6HR [facility] Protocol Isosorbide Dinitrate 10 mg 07/13/21 14:00 Isosorbide Dinitrate 10 Mg Tab PO Q8HR [facility] Losartan Potassium 25 mg 07/12/21 22:00 07/12/21 22:00 Losartan 25 Mg Tab PO Not Given BID [facility] Metoprolol Tartrate 25 mg 07/12/21 23:45 07/12/21 23:24 Metoprolol Tartrate 25 Mg Tab PO 25 mg BID [facility] Administration Multi-Ingred Cream/Lotion/Oil/Oint 1 applic 07/12/21 20:55 Mineral Oil/Petrolatum, White Ophth Oint 3.5 Gm OU Q4HR PRN Dry Eye(s) Ondansetron HCl 4 mg 07/11/21 00:53 Ondansetron 4 Mg/2 Ml Inj IV Q8H PRN Nausea And Vomiting Senna/Docusate Sodium 1 tab 07/12/21 22:00 07/12/21 22:00 Sennosides/Docusate Sodium 8.6/50 Mg Tab FEEDTUBE Not Given BID JODI Sodium Chloride 10 ml 07/11/21 10:00 07/12/21 10:10 Sodium Chloride 0.9% 10 Ml Flush Syringe IV 10 ml BID JODI Administration Sodium Chloride 10 ml 07/11/21 00:53 Sodium Chloride 0.9% 10 Ml Flush Syringe IV PRN PRN LINE FLUSH
--- NOTE | 2021-07-13 10:38 | XRay Report ---
CHEST 1 VIEW 07/13/2021 8:36 AM INDICATION / CLINICAL INFORMATION: follow up respiratory failure. COMPARISON: 07/12/2021 FINDINGS: SUPPORT DEVICES: Endotracheal tube terminates approximately 1.5 cm above james. Esophagogastric tube passes below diaphragm. HEART / MEDIASTINUM: Stable. LUNGS / PLEURA: Previously seen right lower lung zone consolidation has resolved. No pneumothorax. ADDITIONAL FINDINGS: No significant additional findings. IMPRESSION: 1. Improved aeration in right lower lung zone. No acute abnormality. 2. Endotracheal tube is approximately 1.5 cm above james. Signer Name: Magdaleno Leavitt MD Signed: 07/13/2021 10:34 AM Workstation Name: [id number]
[2021-07-13] MEDS: FAMOTIDINE 20 MG/2 ML INJ IV SCH ×2 (10:56→22:21)
[2021-07-13] MEDS: HEPARIN 5,000 UNIT/1 ML VIAL SUB-Q SCH ×2 (10:56→22:20)
[2021-07-13] MEDS: hydrALAZINE 25 MG TAB PO SCH ×2 (10:57→22:20)
[2021-07-13] MEDS: LOSARTAN 25 MG TAB PO SCH ×2 (10:57→22:20)
[2021-07-13] MEDS ORDERED: SODIUM CHLORIDE 0.9% 100 ML IV PRN ×2 (11:00→12:00)
--- NOTE | 2021-07-13 12:21 | Progress Note ---
Assessment and Plan 60-year-old female end-stage renal disease on hemodialysis with an AICD history of prolonged QT syndrome presents to the hospital with shortness of breath hypoxemia went into sustained ventricular tachycardia with multiple AICD shocks despite IV medication with amiodarone patient was intubated for ventricle tach cardia storm. Patient is maintained paced rhythm after intubation and sedation. Wean off lidocaine initiate metoprolol 50 mg 3 times a day. Need to get records from [facility] of patient's electrophysiology history. Propose cardiac catheterization on Thursday for ischemic evaluation for sustained ventricular tachycardia - Patient Problems (1) Respiratory failure Current Visit: Yes Status: Acute Qualifiers: Chronicity: acute Respiratory failure complication: hypoxia Qualified Code(s): J96.01 - Acute respiratory failure with hypoxia (2) Prolonged QT syndrome Current Visit: Yes Status: Chronic (3) AICD (automatic cardioverter/defibrillator) present Current Visit: Yes Status: Chronic (4) CVA (cerebral vascular accident) Current Visit: Yes Status: Chronic (5) End stage renal disease on dialysis Current Visit: Yes Status: Chronic (6) Hypertension Current Visit: Yes Status: Chronic Qualifiers: Hypertension type: primary hypertension Qualified Code(s): I10 - Essential (primary) hypertension (7) Sustained ventricular tachycardia Current Visit: Yes Status: Acute Subjective Date of service: 07/13/21 Principal diagnosis: ESRD Interval history: pt on vent Objective Vital Signs Temp Pulse Pulse Pulse Resp Resp BP 07/13/21 10:57 70 155/69 07/13/21 08:26 70 16 07/13/21 08:25 70 154/56 07/13/21 07:57 99.2 F 07/13/21 07:15 70 20 160/71 07/13/21 07:00 70 21 159/69 07/13/21 06:45 70 19 160/71 07/13/21 06:30 70 18 159/70 07/13/21 06:15 70 19 161/74 07/13/21 06:00 70 19 162/73 07/13/21 05:45 70 21 153/65 07/13/21 05:31 75 17 164/69 07/13/21 05:28 07/13/21 05:15 76 17 150/125 07/13/21 05:00 82 18 153/65 07/13/21 04:45 73 18 146/62 07/13/21 04:31 81 15 140/64 07/13/21 04:15 75 18 129/60 07/13/21 04:04 84 113/62 07/13/21 04:01 85 18 113/62 07/13/21 04:00 75 20 07/13/21 03:45 71 18 139/84 07/13/21 03:31 78 18 148/59 07/13/21 03:22 102.7 F H 07/13/21 03:15 67 18 89/59 07/13/21 03:10 100.1 F H 07/13/21 03:01 75 18 153/60 07/13/21 02:45 84 18 146/64 07/13/21 02:35 89 07/13/21 02:31 76 18 137/56 07/13/21 02:15 76 18 133/55 07/13/21 02:01 119 H 18 141/51 07/13/21 01:51 20 07/13/21 01:45 84 18 128/67 07/13/21 01:31 75 18 139/53 07/13/21 01:15 89 18 162/76 07/13/21 01:01 83 18 160/107 07/13/21 00:51 100.4 F H 20 07/13/21 00:45 73 18 106/83 07/13/21 00:31 70 18 112/76 07/13/21 00:22 07/13/21 00:15 101 H 24 110/67 07/13/21 00:03 206 H 102/79 07/13/21 00:01 99 H 19 102/79 07/13/21 00:00 70 88 20 07/12/21 23:58 100.4 F H 07/12/21 23:45 95 H 18 94/54 07/12/21 23:31 80 18 118/59 07/12/21 23:26 07/12/21 23:24 81 123/60 07/12/21 23:15 76 22 127/66 07/12/21 23:01 75 22 118/59 07/12/21 22:59 74 22 139/67 07/12/21 22:45 70 22 135/66 07/12/21 22:30 70 22 128/66 07/12/21 22:15 70 22 120/63 07/12/21 22:00 70 22 126/60 07/12/21 21:45 72 23 131/65 07/12/21 21:30 70 23 136/65 07/12/21 21:15 70 22 07/12/21 21:00 71 22 153/69 07/12/21 20:55 70 88 22 153/69 07/12/21 20:46 84 49 H 190/88 07/12/21 20:30 70 18 152/65 07/12/21 20:16 79 20 169/74 07/12/21 20:00 99.5 F 83 26 H 185/83 07/12/21 19:50 07/12/21 19:46 220 H 24 177/133 07/12/21 19:45 88 138/60 07/12/21 19:35 99.5 F 07/12/21 19:30 88 15 128/63 07/12/21 19:25 88 22 07/12/21 19:16 171 H 29 H 138/65 07/12/21 19:00 93 H 25 H 146/64 07/12/21 18:46 84 18 165/83 07/12/21 18:30 99.4 F 83 23 165/83 07/12/21 18:16 219 H 22 108/50 07/12/21 18:00 70 17 117/53 07/12/21 17:46 70 17 134/73 07/12/21 17:45 70 134/73 07/12/21 17:30 70 15 134/62 07/12/21 17:16 70 11 L 158/78 07/12/21 17:15 75 158/78 07/12/21 17:00 70 16 148/75 07/12/21 16:46 70 15 150/93 07/12/21 16:45 70 147/82 07/12/21 16:30 75 25 H 150/72 07/12/21 16:18 99.4 F 07/12/21 16:16 70 19 162/67 07/12/21 16:15 80 158/58 07/12/21 16:00 85 85 20 164/75 07/12/21 15:46 71 22 159/71 07/12/21 15:45 73 159/71 07/12/21 15:30 77 21 161/68 07/12/21 15:16 70 20 157/76 07/12/21 15:15 70 157/76 07/12/21 15:00 99.4 F 70 23 156/72 07/12/21 14:45 70 19 136/68 07/12/21 14:30 71 20 150/68 07/12/21 14:16 75 24 149/69 07/12/21 14:02 84 24 07/12/21 14:00 70 19 154/72 07/12/21 13:46 71 19 149/78 07/12/21 13:41 72 147/72 07/12/21 13:30 71 15 147/72 07/12/21 13:16 72 20 143/71 07/12/21 13:00 70 15 148/67 07/12/21 12:46 70 12 139/67 07/12/21 12:30 70 21 132/65 Pulse Ox Pulse Ox 07/13/21 10:57 07/13/21 08:26 07/13/21 08:25 100 07/13/21 07:57 07/13/21 07:15 100 07/13/21 07:00 99 07/13/21 06:45 100 07/13/21 06:30 99 07/13/21 06:15 100 07/13/21 06:00 99 07/13/21 05:45 100 07/13/21 05:31 99 07/13/21 05:28 99 07/13/21 05:15 99 07/13/21 05:00 98 07/13/21 04:45 100 07/13/21 04:31 100 07/13/21 04:15 100 07/13/21 04:04 100 07/13/21 04:01 100 07/13/21 04:00 100 07/13/21 03:45 100 07/13/21 03:31 100 07/13/21 03:22 07/13/21 03:15 100 07/13/21 03:10 07/13/21 03:01 100 07/13/21 02:45 100 07/13/21 02:35 07/13/21 02:31 100 07/13/21 02:15 100 07/13/21 02:01 07/13/21 01:51 07/13/21 01:45 100 07/13/21 01:31 100 07/13/21 01:15 100 07/13/21 01:01 100 07/13/21 00:51 07/13/21 00:45 100 07/13/21 00:31 100 07/13/21 00:22 100 07/13/21 00:15 100 07/13/21 00:03 100 07/13/21 00:01 100 07/13/21 00:00 100 07/12/21 23:58 07/12/21 23:45 100 07/12/21 23:31 97 07/12/21 23:26 100 07/12/21 23:24 07/12/21 23:15 100 07/12/21 23:01 99 07/12/21 22:59 100 07/12/21 22:45 100 07/12/21 22:30 99 07/12/21 22:15 100 07/12/21 22:00 99 07/12/21 21:45 100 07/12/21 21:30 100 07/12/21 21:15 100 07/12/21 21:00 07/12/21 20:55 99 07/12/21 20:46 97 07/12/21 20:30 97 07/12/21 20:16 98 07/12/21 20:00 98 07/12/21 19:50 99 07/12/21 19:46 97 07/12/21 19:45 07/12/21 19:35 07/12/21 19:30 98 07/12/21 19:25 100 07/12/21 19:16 99 07/12/21 19:00 99 07/12/21 18:46 98 07/12/21 18:30 100 100 07/12/21 18:16 99 07/12/21 18:00 100 07/12/21 17:46 100 07/12/21 17:45 07/12/21 17:30 100 07/12/21 17:16 100 07/12/21 17:15 07/12/21 17:00 100 07/12/21 16:46 100 07/12/21 16:45 07/12/21 16:30 100 07/12/21 16:18 07/12/21 16:16 99 07/12/21 16:15 07/12/21 16:00 94 07/12/21 15:46 95 07/12/21 15:45 07/12/21 15:30 94 07/12/21 15:16 95 07/12/21 15:15 07/12/21 15:00 96 07/12/21 14:45 100 07/12/21 14:30 100 07/12/21 14:16 94 07/12/21 14:02 07/12/21 14:00 100 07/12/21 13:46 95 07/12/21 13:41 07/12/21 13:30 07/12/21 13:16 91 07/12/21 13:00 97 07/12/21 12:46 96 07/12/21 12:30 95 - Physical Examination General: Other HEENT: Positive: PERRL, Other Neck: Positive: neck supple Cardiac: Positive: Reg Rate and Rhythm Lungs: Positive: clear to auscultation Neuro: Positive: Other Abdomen: Positive: Unremarkable, Soft Skin: Positive: Clear Musculoskeletal: other Extremities: Absent: edema - Labs and Meds CBC 07/13/21 Range/Units 02:55 WBC 6.5 (4.5-11.0) K/mm3 RBC 3.78 (3.65-5.03) M/mm3 Hgb 9.4 L (10.1-14.3) gm/dl Hct 30.4 (30.3-42.9) % Plt Count 216 (140-440) K/mm3 Comprehensive Metabolic Panel 07/12/21 07/13/21 Range/Units 19:37 02:55 Sodium 135 L (137-145) mmol/L Potassium 4.1 4.8 (3.6-5.0) mmol/L Chloride 94.8 L (98-107) mmol/L Carbon Dioxide 21 L (22-30) mmol/L BUN 29 H (7-17) mg/dL Creatinine 4.2 H (0.6-1.2) mg/dL Glucose 149 H (65-100) mg/dL Calcium 10.1 (8.4-10.2) mg/dL - Imaging and Cardiology EKG: report reviewed Echo: report reviewed (normal lv funciton mild to moderate lvh moderate pulmonary htn) - Telemetry EKG Rhythm: Paced (runs of vtach with atp pacing and shock)
--- NOTE | 2021-07-13 12:38 | Progress Note ---
Assessment and Plan 60 y/o female with ESRD on HD TTS admitted with acute respiratory failure secondary to volume overload, now with what appears to be VT storm aborted with lidocaine drip 07/13/21: Continue sedation on vent. Per cards, plan to cath on vent on Thursday. Once cathed then will determine if transfer is needed to [place] for ablation. Continue sedation and lidocaine drip. HD per renal but likely not again until Thursday. CCT 31 minutes. 1. Continue precedex for now 2. Wean off either during HD or post if BP becomes an issue 3. Monitor in unit tonight and likely transfer out in the am as she is on room air now. If bed is needed may move sooner. Subjective Date of service: 07/13/21 Principal diagnosis: ESRD Interval history: Patient having multiple episodes of VT and being shocked by her AICD. She was administered amio but no improvement. Cardiology recommended intubation to break VT but this did not work so then started on lidocaine drip. No epidsode since on lido drip. Sedated now on diprovan. Minimal vent support. Objective Vital Signs - 12hr 07/13/21 07/13/21 07/13/21 00:45 00:51 01:01 Temperature 100.4 F H Pulse Rate 73 83 Pulse Rate [ Anterior Bilateral Throughout] Respiratory 18 20 18 Rate Respiratory Rate [Anterior Bilateral Throughout] Blood Pressure 106/83 160/107 O2 Sat by Pulse 100 100 Oximetry 07/13/21 07/13/21 07/13/21 01:15 01:31 01:45 Temperature Pulse Rate 89 75 84 Pulse Rate [ Anterior Bilateral Throughout] Respiratory 18 18 18 Rate Respiratory Rate [Anterior Bilateral Throughout] Blood Pressure 162/76 139/53 128/67 O2 Sat by Pulse 100 100 100 Oximetry 07/13/21 07/13/21 07/13/21 01:51 02:01 02:15 Temperature Pulse Rate 119 H 76 Pulse Rate [ Anterior Bilateral Throughout] Respiratory 20 18 18 Rate Respiratory Rate [Anterior Bilateral Throughout] Blood Pressure 141/51 133/55 O2 Sat by Pulse 100 Oximetry 07/13/21 07/13/21 07/13/21 02:31 02:35 02:45 Temperature Pulse Rate 76 89 84 Pulse Rate [ Anterior Bilateral Throughout] Respiratory 18 18 Rate Respiratory Rate [Anterior Bilateral Throughout] Blood Pressure 137/56 146/64 O2 Sat by Pulse 100 100 Oximetry 07/13/21 07/13/21 07/13/21 03:01 03:10 03:15 Temperature 100.1 F H Pulse Rate 75 67 Pulse Rate [ Anterior Bilateral Throughout] Respiratory 18 18 Rate Respiratory Rate [Anterior Bilateral Throughout] Blood Pressure 153/60 89/59 O2 Sat by Pulse 100 100 Oximetry 07/13/21 07/13/21 07/13/21 03:22 03:31 03:45 Temperature 102.7 F H Pulse Rate 78 71 Pulse Rate [ Anterior Bilateral Throughout] Respiratory 18 18 Rate Respiratory Rate [Anterior Bilateral Throughout] Blood Pressure 148/59 139/84 O2 Sat by Pulse 100 100 Oximetry 07/13/21 07/13/21 07/13/21 04:00 04:01 04:04 Temperature Pulse Rate 75 85 84 Pulse Rate [ Anterior Bilateral Throughout] Respiratory 20 18 Rate Respiratory Rate [Anterior Bilateral Throughout] Blood Pressure 113/62 113/62 O2 Sat by Pulse 100 100 100 Oximetry 07/13/21 07/13/21 07/13/21 04:15 04:31 04:45 Temperature Pulse Rate 75 81 73 Pulse Rate [ Anterior Bilateral Throughout] Respiratory 18 15 18 Rate Respiratory Rate [Anterior Bilateral Throughout] Blood Pressure 129/60 140/64 146/62 O2 Sat by Pulse 100 100 100 Oximetry 07/13/21 07/13/21 07/13/21 05:00 05:15 05:28 Temperature Pulse Rate 82 76 Pulse Rate [ Anterior Bilateral Throughout] Respiratory 18 17 Rate Respiratory Rate [Anterior Bilateral Throughout] Blood Pressure 153/65 150/125 O2 Sat by Pulse 98 99 99 Oximetry 07/13/21 07/13/21 07/13/21 05:31 05:45 06:00 Temperature Pulse Rate 75 70 70 Pulse Rate [ Anterior Bilateral Throughout] Respiratory 17 21 19 Rate Respiratory Rate [Anterior Bilateral Throughout] Blood Pressure 164/69 153/65 162/73 O2 Sat by Pulse 99 100 99 Oximetry 07/13/21 07/13/21 07/13/21 06:15 06:30 06:45 Temperature Pulse Rate 70 70 70 Pulse Rate [ Anterior Bilateral Throughout] Respiratory 19 18 19 Rate Respiratory Rate [Anterior Bilateral Throughout] Blood Pressure 161/74 159/70 160/71 O2 Sat by Pulse 100 99 100 Oximetry 07/13/21 07/13/21 07/13/21 07:00 07:15 07:57 Temperature 99.2 F Pulse Rate 70 70 Pulse Rate [ Anterior Bilateral Throughout] Respiratory 21 20 Rate Respiratory Rate [Anterior Bilateral Throughout] Blood Pressure 159/69 160/71 O2 Sat by Pulse 99 100 Oximetry 07/13/21 07/13/21 07/13/21 08:25 08:26 10:57 Temperature Pulse Rate 70 70 Pulse Rate [ 70 Anterior Bilateral Throughout] Respiratory Rate Respiratory 16 Rate [Anterior Bilateral Throughout] Blood Pressure 154/56 155/69 O2 Sat by Pulse 100 Oximetry Constitutional: no acute distress, alert Eyes: non-icteric ENT: oropharynx moist Neck: supple Ascultation: Bilateral: rales Percussion: Bilateral: not dull Cardiovascular: regular rate and rhythm Gastrointestinal: normoactive bowel sounds, soft Extremities: pink and warm, pulses normal CBC and BMP: 07/13/21 02:55 07/13/21 02:55 ABG, PT/INR, D-dimer: ABG ABG pH 7.471 (7.320-7.450) H 07/13/21 04:03 POC ABG pCO2 33.1 mmHg (32.0-48.0) 07/13/21 04:03 ABG pCO2 45.6 mm Hg 07/11/21 11:38 POC ABG pO2 270.3 mmHg (83-108) H 07/13/21 04:03 ABG pO2 78.8 mm Hg (80.0-90.0) L 07/11/21 11:38 POC ABG HCO3 23.6 07/13/21 04:03 ABG O2 Saturation 99.9 (0-100) 07/13/21 04:03 Abnormal lab findings: Abnormal Labs 07/10/21 07/10/21 07/10/21 21:38 21:38 21:38 WBC 4.2 L RBC Hgb 9.2 L Hct 29.6 L MCH 25 L RDW 17.1 H [place] % (Auto) 13.8 H Baso % (Auto) 2.8 H Lymph # (Auto) 0.9 L APTT 40.5 H ABG pH POC ABG pCO2 POC ABG pO2 ABG pO2 ABG O2 Saturation ABG Hemoglobin ABG Oxyhemoglobin ABG Sodium ABG Potassium ABG Glucose Oxyhemoglobin Carboxyhemoglobin Sodium 136 L Chloride 95.3 L Carbon Dioxide BUN 35 H Creatinine 6.6 H Glucose POC Glucose Lactic Acid Phosphorus Magnesium AST ALT Total Creatine Kinase Troponin T 0.035 H NT-Pro-B Natriuret Pep Total Protein 8.7 H Cholesterol 233 H LDL Cholesterol Direct 157 H Free T4 Arterial Blood Glucose 07/10/21 07/11/21 07/11/21 21:38 08:20 10:03 WBC RBC Hgb Hct MCH RDW [place] % (Auto) Baso % (Auto) Lymph # (Auto) APTT ABG pH POC ABG pCO2 POC ABG pO2 ABG pO2 ABG O2 Saturation ABG Hemoglobin ABG Oxyhemoglobin ABG Sodium ABG Potassium ABG Glucose Oxyhemoglobin Carboxyhemoglobin Sodium Chloride Carbon Dioxide BUN Creatinine Glucose POC Glucose 112 H Lactic Acid 0.60 L Phosphorus Magnesium AST ALT Total Creatine Kinase Troponin T NT-Pro-B Natriuret Pep 23894 H Total Protein Cholesterol LDL Cholesterol Direct Free T4 Arterial Blood Glucose 07/11/21 07/11/21 07/11/21 11:27 11:38 Unknown WBC RBC Hgb Hct MCH RDW [place] % (Auto) Baso % (Auto) Lymph # (Auto) APTT ABG pH 7.343 L POC ABG pCO2 POC ABG pO2 ABG pO2 78.8 L ABG O2 Saturation 94.8 L ABG Hemoglobin 10.1 L ABG Oxyhemoglobin ABG Sodium ABG Potassium ABG Glucose Oxyhemoglobin 92.5 L Carboxyhemoglobin Sodium Chloride Carbon Dioxide BUN Creatinine Glucose POC Glucose 155 H Lactic Acid Phosphorus Magnesium AST ALT Total Creatine Kinase 136 H Troponin T NT-Pro-B Natriuret Pep Total Protein Cholesterol LDL Cholesterol Direct Free T4 Arterial Blood Glucose 07/11/21 07/12/21 07/12/21 Unknown 04:43 04:43 WBC RBC 3.36 L Hgb 8.4 L Hct 26.6 L MCH 25 L RDW 16.7 H [place] % (Auto) 12.4 H Baso % (Auto) 2.2 H Lymph # (Auto) 1.0 L APTT ABG pH POC ABG pCO2 POC ABG pO2 ABG pO2 ABG O2 Saturation ABG Hemoglobin ABG Oxyhemoglobin ABG Sodium ABG Potassium ABG Glucose Oxyhemoglobin Carboxyhemoglobin Sodium Chloride 95.2 L Carbon Dioxide BUN 31 H Creatinine 5.4 H Glucose POC Glucose Lactic Acid Phosphorus Magnesium AST 153 H ALT 117 H Total Creatine Kinase Troponin T 0.037 H NT-Pro-B Natriuret Pep Total Protein Cholesterol LDL Cholesterol Direct Free T4 Arterial Blood Glucose 07/12/21 07/12/21 07/12/21 11:00 19:12 19:37 WBC RBC Hgb Hct MCH RDW [place] % (Auto) Baso % (Auto) Lymph # (Auto) APTT ABG pH POC ABG pCO2 POC ABG pO2 ABG pO2 ABG O2 Saturation ABG Hemoglobin 8.4 L ABG Oxyhemoglobin ABG Sodium 135.3 L ABG Potassium ABG Glucose Oxyhemoglobin Carboxyhemoglobin Sodium Chloride Carbon Dioxide BUN Creatinine Glucose POC Glucose 131 H Lactic Acid Phosphorus Magnesium 2.60 H AST ALT Total Creatine Kinase Troponin T NT-Pro-B Natriuret Pep Total Protein Cholesterol LDL Cholesterol Direct Free T4 Arterial Blood Glucose 07/12/21 07/13/21 07/13/21 22:03 02:55 02:55 WBC RBC Hgb 9.4 L Hct MCH 25 L RDW 16.9 H [place] % (Auto) Baso % (Auto) Lymph # (Auto) APTT ABG pH 7.512 H POC ABG pCO2 31.9 L POC ABG pO2 80.0 L ABG pO2 ABG O2 Saturation ABG Hemoglobin 11 L ABG Oxyhemoglobin ABG Sodium ABG Potassium ABG Glucose 162 H Oxyhemoglobin Carboxyhemoglobin 0.2 L Sodium 135 L Chloride 94.8 L Carbon Dioxide 21 L BUN 29 H Creatinine 4.2 H Glucose 149 H POC Glucose Lactic Acid Phosphorus 6.20 H Magnesium 2.60 H AST ALT Total Creatine Kinase Troponin T NT-Pro-B Natriuret Pep Total Protein Cholesterol LDL Cholesterol Direct Free T4 Arterial Blood Glucose 162 H 07/13/21 07/13/21 07/13/21 02:55 04:03 07:52 WBC RBC Hgb Hct MCH RDW [place] % (Auto) Baso % (Auto) Lymph # (Auto) APTT ABG pH 7.471 H POC ABG pCO2 POC ABG pO2 270.3 H ABG pO2 ABG O2 Saturation ABG Hemoglobin 9.6 L ABG Oxyhemoglobin 99.4 H ABG Sodium ABG Potassium 5.2 H ABG Glucose 106 H Oxyhemoglobin Carboxyhemoglobin 0.4 L Sodium Chloride Carbon Dioxide BUN Creatinine Glucose POC Glucose Lactic Acid 3.00 H* Phosphorus Magnesium AST ALT Total Creatine Kinase Troponin T NT-Pro-B Natriuret Pep Total Protein Cholesterol LDL Cholesterol Direct Free T4 1.60 H Arterial Blood Glucose 106 H 07/13/21 11:40 WBC RBC Hgb Hct MCH RDW [place] % (Auto) Baso % (Auto) Lymph # (Auto) APTT ABG pH POC ABG pCO2 POC ABG pO2 ABG pO2 ABG O2 Saturation ABG Hemoglobin ABG Oxyhemoglobin ABG Sodium ABG Potassium ABG Glucose Oxyhemoglobin Carboxyhemoglobin Sodium Chloride Carbon Dioxide BUN Creatinine Glucose POC Glucose 109 H Lactic Acid Phosphorus Magnesium AST ALT Total Creatine Kinase Troponin T NT-Pro-B Natriuret Pep Total Protein Cholesterol LDL Cholesterol Direct Free T4 Arterial Blood Glucose
[2021-07-13] MEDS ORDERED: LIPASE 10,500/PROTEASE 25,000/AMYLASE 43,750 (UNITS) DR CAP FEEDTUBE PRN (13:10)
[2021-07-13] MEDS ORDERED: SIMPLE SYRUP 15 ML FEEDTUBE PRN ×2 (13:10)
[2021-07-13] MEDS ORDERED: SODIUM BICARBONATE 325 MG TAB FEEDTUBE PRN (13:10)
[2021-07-13] MEDS: SENNOSIDES/DOCUSATE SODIUM 8.6/50 MG TAB FEEDTUBE SCH ×2 (13:35→22:21)
[2021-07-13] MEDS: INSULIN LISPRO 100 UNIT/ML SUB-Q SCH ×2 (13:36→19:48)
[2021-07-13] MEDS: ISOSORBIDE DINITRATE 10 MG TAB PO SCH ×2 (13:41→22:21)
[2021-07-13] MEDS: METOPROLOL TARTRATE 50 MG TAB PO SCH ×2 (13:44→20:48)
[2021-07-13] MEDS: CLOPIDOGREL 75 MG TAB PO SCH (13:50)
--- NOTE | 2021-07-13 15:41 | Progress Note ---
<DAYAWALTER NoKristina - Last Filed: 07/13/21 15:51> Assessment and Plan Assessment and plan: This is 60-year-old female with HTN, CVA, DM, ESRD on HD, hyperparathyroidism, CHF admitted for volume overload, possible acute CHF exacerbation and acute hypoxic respiratory distress. Neuro: Acute agitation, h/o CVA -S/p Precedex drip -Sedated with propofol -RASS goal 0 to -1 -Avoid delirium -Reorientation as needed -Maintain sleep-wake cycle Cardio: Ventricular tachycardia storm congestive heart failure/volume overload, h/o HTN -Cardiology consulted, appreciate recommendations -Continue home antihypertensive regimen and adjust as needed -S/p multiple firing of AICD device (VT/torsades) -S/p magnesium drip -S/p amio push -AICD to be interrogated today -Plan for cardiac cath while vented per cards or possible transfer to [facility] for ablation -Amiodarone and lidocaine drip -Echocardiogram pending -Blood pressure monitor per protocol -s/p Cardene gtt -Blood pressure monitoring per protocol Respiratory: Acute respiratory failure -Pulmicrit consulted, appreciate recommendations -S/p BiPAP therapy-> weaned ot ventimask to RA -Intubated on 07/12 with 7.00 ETT at 24 at the lips by ED physician -A.m. vent settings: Assist-control rate 16, tidal volume 450, FiO2 35%, PEEP 6 -See RT notes for titration -A.m. ABG noted -CCM consulted -VAP bundle -SPO2 monitoring GI: NAD -PPI -NTR consult for tube feeding -BR: Senna -24 hour +817 ML : ESRD on HD, Hyponatremia, hypochloremia, metabolic acidosis hypomagnesemia, hyperphosphatemia -Garza 07/12-07/13 -HD per nephrology -Nephrology consulted, appreciate recommendations -Trend BMP -Avoid nephrotoxic medications -Renally dose medications Heme: Anemia of chronic disease -Trend CBC -Transfuse for hemoglobin less than 7 -SCDs to BLE while in bed -Heparin subq ID: Febrile illness, Lactic acidosis -COVID-19 PCR negative -ABX: Zosyn and vancomycin -Trend WBC and fever curve -Follow-up cultures Endo: h/o DM -SSI -Accu-Cheks AC q6hr -Avoid hypoglycemia The high probability of a clinically significant, sudden or life threatening deterioration of the [resp] system(s) required my full and direct attention, intervention and personal management. The aggregate critical care time was [60] minutes. This time is in addition to time spent performing reported procedures but includes the following: [x] Data Review and interpretation [x] Patient assessment and monitoring of vital signs [x] Documentation [x] Medication orders and management Disposition Plan: icu Total Time Spent with Patient (Minutes): 60 History Interval history: This is a 60-year-old female with HTN, CVA, DM, ESRD on HD, pacemaker/AICD?, cardiac arrest x1 and hyperparathyroidism who presented to emergency department with headache, abdominal pain, insomnia, missed dialysis on 07/10 via EMS. Per EMS on arrival patient SPO2 on room air was 84% and she was placed on 3 L nasal cannula with improvement to 92%. Work-up in the emergency department revealed elevated BUN/creatinine, elevated proBNP,elevated troponins and CXR was suspicious for acute CHF exacerbation. Patient was admitted to the hospital service with consult to nephrology. 07/11: Patient transferred to IMCU/ICU for agitation, hypoxia. Cardiology was consulted and echocardiogram was ordered. Patient was placed on BiPAP therapy and received hemodialysis with removal of 4 L. FiO2 was able to be decreased to 50% after dialysis. 07/12: Patient was weaned off of BiPAP to Ventimask which she removed. HD scheduled for today. Patient is on a Precedex drip for agitation and will titrate off as tolerated. Possible transfer out of the unit tomorrow. COVID-19 PCR negative 07/13: Patient was intubated overnight for sustained ventricular tachycardia with multiple AICD shocks despite IV push amiodarone, amiodarone drip , no insulin bolus and magnesium drip. Patient currently on lidocaine drip, amiodarone drip, propofol for sedation. Cardiology increase metoprolol to 3 times daily. Device will be interrogated today. Hospitalist Physical - Constitutional Vitals: Temp Pulse Resp BP Pulse Ox 100.1 F H 70 16 142/70 100 07/13/21 12:00 07/13/21 13:44 07/13/21 13:00 07/13/21 13:44 07/13/21 13:00 General appearance: Present: no acute distress, other (sedated) - EENT Eyes: Present: PERRL, EOM intact - Neck Neck: Present: normal ROM - Respiratory Respiratory effort: normal Respiratory: bilateral: CTA - Cardiovascular Rhythm: regular Heart Sounds: Present: S1 & S2. Absent: systolic murmur, diastolic murmur - Extremities Extremities: no ischemia, pulses intact, pulses symmetrical, normal temperature, normal color Peripheral Pulses: within normal limits - Abdominal General gastrointestinal: soft, non-tender, non-distended, normal bowel sounds - Integumentary Integumentary: Present: warm, dry - Psychiatric Psychiatric: other - Neurologic Neurologic: moves all extremities - Allied Health Allied health notes reviewed: nursing, RT, social work HEART Score - HEART Score Troponin: Troponin T 0.037 ng/mL (0.00-0.029) H 07/11/21 Unknown Results - Labs CBC & Chem 7: 07/13/21 02:55 07/13/21 02:55 Labs: Laboratory Last Values WBC 6.5 K/mm3 (4.5-11.0) 07/13/21 02:55 RBC 3.78 M/mm3 (3.65-5.03) 07/13/21 02:55 Hgb 9.4 gm/dl (10.1-14.3) L 07/13/21 02:55 Hct 30.4 % (30.3-42.9) 07/13/21 02:55 MCV 80 fl (79-97) 07/13/21 02:55 MCH 25 pg (28-32) L 07/13/21 02:55 MCHC 31 % (30-34) 07/13/21 02:55 RDW 16.9 % (13.2-15.2) H 07/13/21 02:55 Plt Count 216 K/mm3 (140-440) 07/13/21 02:55 Lymph % (Auto) 19.8 % (13.4-35.0) 07/12/21 04:43 [place] % (Auto) 12.4 % (0.0-7.3) H 07/12/21 04:43 Eos % (Auto) 0.4 % (0.0-4.3) 07/12/21 04:43 Baso % (Auto) 2.2 % (0.0-1.8) H 07/12/21 04:43 Lymph # (Auto) 1.0 K/mm3 (1.2-5.4) L 07/12/21 04:43 [place] # (Auto) 0.6 K/mm3 (0.0-0.8) 07/12/21 04:43 Eos # (Auto) 0.0 K/mm3 (0.0-0.4) 07/12/21 04:43 Baso # (Auto) 0.1 K/mm3 (0.0-0.1) 07/12/21 04:43 Seg Neutrophils % 65.2 % (40.0-70.0) 07/12/21 04:43 Seg Neutrophils # 3.4 K/mm3 (1.8-7.7) 07/12/21 04:43 APTT 40.5 Sec. (24.2-36.6) H 07/10/21 21:38 ABG pH 7.471 (7.320-7.450) H 07/13/21 04:03 POC ABG pCO2 33.1 mmHg (32.0-48.0) 07/13/21 04:03 ABG pCO2 45.6 mm Hg 07/11/21 11:38 POC ABG pO2 270.3 mmHg (83-108) H 07/13/21 04:03 ABG pO2 78.8 mm Hg (80.0-90.0) L 07/11/21 11:38 POC ABG HCO3 23.6 07/13/21 04:03 ABG HCO3 24.2 mmol/L (20.0-26.0) 07/11/21 11:38 ABG O2 Saturation 99.9 (0-100) 07/13/21 04:03 POC ABG Base Excess 0.3 07/13/21 04:03 ABG Base Excess -1.6 mmol/L (-2.0-3.0) 07/11/21 11:38 ABG Hemoglobin 9.6 (12.0-17.5) L 07/13/21 04:03 ABG Oxyhemoglobin 99.4 (94-98) H 07/13/21 04:03 ABG Carboxyhemoglobin 2.0 % (0.0-5.0) 07/11/21 11:38 ABG Methemoglobin 0.1 (0.0-1.5) 07/13/21 04:03 ABG Sodium 138.0 mmol/L (136.0-145.0) 07/13/21 04:03 ABG Potassium 5.2 mmol/L (3.40-4.50) H 07/13/21 04:03 ABG Chloride 98.0 mmol/L (98-107) 07/13/21 04:03 ABG Glucose 106 mg/dL (65-95) H 07/13/21 04:03 Oxyhemoglobin 92.5 % (95.0-99.0) L 07/11/21 11:38 Carboxyhemoglobin 0.4 (0.5-1.5) L 07/13/21 04:03 FiO2 100 % 07/11/21 11:38 FiO2 % 100 07/13/21 04:03 Sodium 135 mmol/L (137-145) L 07/13/21 02:55 Potassium 4.8 mmol/L (3.6-5.0) 07/13/21 02:55 Chloride 94.8 mmol/L (98-107) L 07/13/21 02:55 Carbon Dioxide 21 mmol/L (22-30) L 07/13/21 02:55 Anion Gap 24 mmol/L 07/13/21 02:55 BUN 29 mg/dL (7-17) H 07/13/21 02:55 Creatinine 4.2 mg/dL (0.6-1.2) H 07/13/21 02:55 Estimated GFR 13 ml/min 07/13/21 02:55 BUN/Creatinine Ratio 7 % 07/13/21 02:55 Glucose 149 mg/dL (65-100) H 07/13/21 02:55 POC Glucose 109 mg/dL (70-105) H 07/13/21 11:40 Lactic Acid 3.00 mmol/L (0.7-2.0) H* 07/13/21 02:55 Calcium 10.1 mg/dL (8.4-10.2) 07/13/21 02:55 Phosphorus 6.20 mg/dL (2.5-4.5) H 07/13/21 02:55 Magnesium 2.60 mg/dL (1.7-2.3) H 07/13/21 02:55 Total Bilirubin 0.60 mg/dL (0.1-1.2) 07/12/21 04:43 AST 153 units/L (5-40) H 07/12/21 04:43 ALT 117 units/L (7-56) H 07/12/21 04:43 Alkaline Phosphatase 71 units/L (35-129) 07/12/21 04:43 Total Creatine Kinase 136 units/L (30-135) H 07/11/21 Unknown Troponin T 0.037 ng/mL (0.00-0.029) H 07/11/21 Unknown NT-Pro-B Natriuret Pep 27396 pg/mL (0-900) H 07/10/21 21:38 Total Protein 7.5 g/dL (6.3-8.2) 07/12/21 04:43 Albumin 4.0 g/dL (3.9-5) 07/12/21 04:43 Albumin/Globulin Ratio 1.1 % 07/12/21 04:43 Triglycerides 82 mg/dL (2-149) 07/10/21 21:38 Cholesterol 233 mg/dL (50-199) H 07/10/21 21:38 LDL Cholesterol Direct 157 mg/dL (50-130) H 07/10/21 21:38 HDL Cholesterol 52 mg/dL (40-59) 07/10/21 21:38 Cholesterol/HDL Ratio 4.48 % 07/10/21 21:38 TSH 3.000 mlU/mL (0.270-4.200) 07/13/21 07:52 Free T4 1.60 ng/dL (0.76-1.46) H 07/13/21 07:52 Thyroxine (T4) 10.9 ug/dL (4.0-12.0) 07/13/21 07:52 Arterial Blood Glucose 106 mg/dL (65-95) H 07/13/21 04:03 Arterial Blood Ionized Calcium 4.9 mg/dL (4.6-5.3) 07/12/21 11:00 Random Vancomycin 12.2 ug/mL (0-40.0) 07/13/21 07:52 Coronavirus (PCR) Negative (Negative) 07/12/21 Unknown Hepatitis A IgM Ab Non-reactive (NonReactive) 07/11/21 09:48 Hep Bs Antigen Nonreactive (Negative) 07/11/21 09:48 Hep B Core IgM Ab Non-reactive (NonReactive) 07/11/21 09:48 Hepatitis C Antibody Non-reactive (NonReactive) 07/11/21 09:48 Microbiology: Microbiology 07/13/21 02:55 Peripheral/Venous Blood Culture - Preliminary Culture in Progress 07/13/21 01:50 Peripheral/Venous Blood Culture - Preliminary Culture in Progress 07/10/21 21:38 Peripheral/Venous Blood Culture - Preliminary NO GROWTH AFTER 48 HOURS 07/10/21 21:44 Peripheral/Venous Blood Culture - Preliminary NO GROWTH AFTER 48 HOURS 07/12/21 14:18 Peripheral/Venous Blood Culture - Preliminary Culture in Progress 07/12/21 14:18 Peripheral/Venous Blood Culture - Preliminary Culture in Progress Garza/IV: Voiding Method Diaper Active Medications - Current Medications Current Medications: Generic Name Dose Route Start Last Admin Trade Name Freq PRN Reason Stop Dose Admin Acetaminophen 650 mg 07/11/21 00:53 07/13/21 00:51 Acetaminophen 325 Mg Tab PO 650 mg Q4H PRN Administration Pain MILD(1-3)/Fever >100.5/COWART Acetaminophen 650 mg 07/12/21 03:40 07/12/21 03:52 Acetaminophen [address] 650 mg Q4H PRN Administration Pain, Mild (1-3) Albuterol 2.5 mg 07/11/21 00:53 Albuterol 2.5 Mg/3 Ml Nebu IH Q4HRT PRN Shortness Of Breath Albuterol/Ipratropium 1 ampul 07/11/21 02:00 07/13/21 15:31 Ipratropium/Albuterol Sulfate 3 Ml Ampul.Neb IH Not Given Q6HRT JODI Lipase/Protease/Amylase 1 each 07/13/21 13:10 Lipase 10,500/Protease 25,000/Amylase 43,750 (Units) Dr Thomas FEEDTUBE PRN PRN For Clogged Feeding Tube Atorvastatin Calcium 80 mg 07/12/21 22:00 07/12/21 22:00 Atorvastatin 40 Mg Tab PO Not Given QHS JODI Clopidogrel Bisulfate 75 mg 07/12/21 18:00 07/13/21 13:50 Clopidogrel 75 Mg Tab PO 75 mg QDAY JODI Administration Dextrose 50 ml 07/12/21 17:22 Dextrose 50% In Water (25gm) 50 Ml Syringe IV Q30MIN PRN Hypoglycemia Protocol Famotidine 10 mg 07/13/21 10:00 07/13/21 10:56 Famotidine 20 Mg/2 Ml Inj IV 10 mg BID JOID Administration Heparin Sodium (Porcine) 5,000 unit 07/11/21 10:00 07/13/21 10:56 Heparin 5,000 Unit/1 Ml Vial SUB-Q 5,000 unit Q12HR JODI Administration Hydralazine HCl 25 mg 07/12/21 22:00 07/13/21 10:57 Hydralazine 25 Mg Tab PO 25 mg BID JODI Administration Hydrophilic Ointment 1 applic 07/12/21 20:55 Lip Therapy Vaseline TP Q2HR PRN Dry Lips Nicardipine HCl 50 mg/ Sodium 250 mls @ 25 mls/hr 07/11/21 22:00 07/12/21 22:30 Chloride IV 0 mg/hr TITR JODI 0 mls/hr Titration Protocol 5 MG/HR Amiodarone HCl 900 mg/ 500 mls @ 33.333 mls/hr 07/12/21 19:00 07/13/21 07:08 Dextrose IV 1 mg/min DIRECT JODI 33.333 mls/hr Infusion Protocol 1 MG/MIN Propofol 1,000 mg in 100 mls @ 1.617 mls/hr 07/12/21 21:00 07/13/21 11:11 Diprivan 10 Mg/Ml IV 0.8 mcg/kg/min TITR JODI 0.259 mls/hr Titration Protocol 5 MCG/KG/MIN Lidocaine HCl/Dextrose 2,000 mg in 500 mls @ 15 mls/hr 07/12/21 23:56 07/13/21 10:00 Xylocaine/D5w 2gm/500ml Drip IV 0.9 mg/min DIRECT JODI 13.5 mls/hr Titration Protocol 1 MG/MIN Piperacillin Sod/Tazobactam Sod 2.25 gm in 50 mls @ 100 mls/hr 07/13/21 08:00 07/13/21 11:20 Zosyn/Ns 2.25 Gm/50ml IV 100 mls/hr Q8H JODI Administration Protocol Sodium Chloride 100 mls @ 999 mls/hr 07/13/21 11:00 Nacl 0.9% IV GLENDY PRN Hypotension Sodium Chloride 100 mls @ 999 mls/hr 07/13/21 12:00 Nacl 0.9% IV GLENDY PRN Hypotension Insulin Human Lispro 0 unit 07/13/21 12:00 12/04/21 13:36 Insulin Lispro 100 Unit/Ml SUB-Q Not Given Q6HR [facility] Protocol Isosorbide Dinitrate 10 mg 07/13/21 14:00 07/13/21 13:41 Isosorbide Dinitrate 10 Mg Tab PO 10 mg Q8HR JODI Administration Losartan Potassium 25 mg 07/12/21 22:00 07/13/21 10:57 Losartan 25 Mg Tab PO 25 mg BID JODI Administration Metoprolol Tartrate 50 mg 07/13/21 14:00 07/13/21 13:44 Metoprolol Tartrate 50 Mg Tab PO 50 mg TID JODI Administration Multi-Ingred Cream/Lotion/Oil/Oint 1 applic 07/12/21 20:55 Mineral Oil/Petrolatum, White Ophth Oint 3.5 Gm OU Q4HR PRN Dry Eye(s) Ondansetron HCl 4 mg 07/11/21 00:53 Ondansetron 4 Mg/2 Ml Inj IV Q8H PRN Nausea And Vomiting Senna/Docusate Sodium 1 tab 07/12/21 22:00 07/13/21 13:35 Sennosides/Docusate Sodium 8.6/50 Mg Tab FEEDTUBE Not Given BID JODI Simple Syrup 15 ml 07/13/21 13:10 Simple Syrup 15 Ml FEEDTUBE PRN PRN Hypoglycemia Simple Syrup 30 ml 07/13/21 13:10 Simple Syrup 15 Ml FEEDTUBE PRN PRN Hypoglycemia Sodium Bicarbonate 325 mg 07/13/21 13:10 Sodium Bicarbonate 325 Mg Tab FEEDTUBE PRN PRN For Clogged Feeding Tube Sodium Chloride 10 ml 07/11/21 10:00 07/12/21 10:10 Sodium Chloride 0.9% 10 Ml Flush Syringe IV 10 ml BID JODI Administration Sodium Chloride 10 ml 07/11/21 00:53 Sodium Chloride 0.9% 10 Ml Flush Syringe IV PRN PRN LINE FLUSH Nutrition/Malnutrition Assess - Dietary Evaluation Nutrition/Malnutrition Findings: Nutrition Notes Start: 07/12/21 14:50 Freq: Status: Active Protocol: Document 07/13/21 12:51 CW (Rec: 07/13/21 13:10 CW [id number]) Nutrition Notes Initial or Follow up Reassessment Current Diagnosis CKD (stage V CKD),Diabetes, Hypertension Other Pertinent Diagnosis on HD, Vol. Overload Current Diet NPO Labs/Tests Na 135 BUN 29 Cr 4.2 BG 149 Phos 6.2 Pertinent Medications propofol at 0.259 (9 kcal) Height 5 ft 2 in Weight 51.9 kg [place] [place] Body Weight (kg) 50.00 BMI 20.9 Weight Status Appropriate Subjective/Other Information MD consult for TF. Pt on mechancial vent at this time. Percent of energy/protein needs met: 0%/0% Burn Absent Trauma Absent GI Symptoms None Difficulty In Swallowing Food Allergy No Current % PO Negligible Minimum of two criteria No Fluid Accumulation Mild (non-severe) #2 Nutrition Diagnosis Inadequate oral intake,No nutrition diagnosis at this time Etiology respiratory failure As Evidenced by Signs and Symptoms pt on mechanical vent at this time and unable to consume via PO #1 Nutrition Diagnosis Food and nutrition-related knowledge deficit As Evidenced by Signs and Symptoms No diet education noted; Pt inappropriate at this time for diet education d/t mechancial vent Diagnosis Progress(for reassessment Continues documentation) Is patient on ventilator? Yes Is Patient Ambulatory and/or Out of Bed Yes REE-([facility] [place]-ambulatory/OOB) [ [id number] [id number]] Calculation Used for Recommendations [facility] Additional Notes protein needs: 62 - 104 (1.2 - 2g/kgBW) Fluid needs: 1500 mL for HD or per MD order Nutrition Intervention Change Diet Order: Inititate TF when medically feasible Nutrition Support: Nepro at 35 ml/hr with a free water flush of 150 ml q4h Kcal 1,512 Protein (gm) 68 Fluid (mL) 611 Goal #1 Meet at least 75% of kcal and protein needs via TF Follow-Up By: 07/16/21 Additional Comments F/u for TF start and toelrance <ARNOLD BRENNAN R - Last Filed: 07/13/21 22:46> History Interval history: Patient is seen and examined today by me at about noon. She is intubated to better control recurrent ventricular arrhythmia and this is accomplished. She remains on lidocaine infusion. FiO2 35%. Continues to have fever. On empiric antibiotic therapy with vancomycin and Zosyn. Tracheal aspirate cultures ordered. Discussed with cardiology, considering transfer to [place] for further evaluation management. The primary event is recurrent ventricular tachycardia causing acute heart failure. LVEF normal by echo. Discussed with the nurse practitioner. Discussed with her daughter and updated. Hospitalist Physical - Constitutional Vitals: Temp Pulse Resp BP Pulse Ox 98.2 F 70 18 164/64 100 07/13/21 21:00 07/13/21 22:21 07/13/21 21:00 07/13/21 22:21 07/13/21 21:00 HEART Score - HEART Score Troponin: Troponin T 0.037 ng/mL (0.00-0.029) H 07/11/21 Unknown Results - Labs CBC & Chem 7: 07/13/21 02:55 07/13/21 02:55 Labs: Laboratory Last Values WBC 6.5 K/mm3 (4.5-11.0) 07/13/21 02:55 RBC 3.78 M/mm3 (3.65-5.03) 07/13/21 02:55 Hgb 9.4 gm/dl (10.1-14.3) L 07/13/21 02:55 Hct 30.4 % (30.3-42.9) 07/13/21 02:55 MCV 80 fl (79-97) 07/13/21 02:55 MCH 25 pg (28-32) L 07/13/21 02:55 MCHC 31 % (30-34) 07/13/21 02:55 RDW 16.9 % (13.2-15.2) H 07/13/21 02:55 Plt Count 216 K/mm3 (140-440) 07/13/21 02:55 Lymph % (Auto) 19.8 % (13.4-35.0) 07/12/21 04:43 [place] % (Auto) 12.4 % (0.0-7.3) H 07/12/21 04:43 Eos % (Auto) 0.4 % (0.0-4.3) 07/12/21 04:43 Baso % (Auto) 2.2 % (0.0-1.8) H 07/12/21 04:43 Lymph # (Auto) 1.0 K/mm3 (1.2-5.4) L 07/12/21 04:43 [place] # (Auto) 0.6 K/mm3 (0.0-0.8) 07/12/21 04:43 Eos # (Auto) 0.0 K/mm3 (0.0-0.4) 07/12/21 04:43 Baso # (Auto) 0.1 K/mm3 (0.0-0.1) 07/12/21 04:43 Seg Neutrophils % 65.2 % (40.0-70.0) 07/12/21 04:43 Seg Neutrophils # 3.4 K/mm3 (1.8-7.7) 07/12/21 04:43 APTT 40.5 Sec. (24.2-36.6) H 07/10/21 21:38 ABG pH 7.471 (7.320-7.450) H 07/13/21 04:03 POC ABG pCO2 33.1 mmHg (32.0-48.0) 07/13/21 04:03 ABG pCO2 45.6 mm Hg 07/11/21 11:38 POC ABG pO2 270.3 mmHg (83-108) H 07/13/21 04:03 ABG pO2 78.8 mm Hg (80.0-90.0) L 07/11/21 11:38 POC ABG HCO3 23.6 07/13/21 04:03 ABG HCO3 24.2 mmol/L (20.0-26.0) 07/11/21 11:38 ABG O2 Saturation 99.9 (0-100) 07/13/21 04:03 POC ABG Base Excess 0.3 07/13/21 04:03 ABG Base Excess -1.6 mmol/L (-2.0-3.0) 07/11/21 11:38 ABG Hemoglobin 9.6 (12.0-17.5) L 07/13/21 04:03 ABG Oxyhemoglobin 99.4 (94-98) H 07/13/21 04:03 ABG Carboxyhemoglobin 2.0 % (0.0-5.0) 07/11/21 11:38 ABG Methemoglobin 0.1 (0.0-1.5) 07/13/21 04:03 ABG Sodium 138.0 mmol/L (136.0-145.0) 07/13/21 04:03 ABG Potassium 5.2 mmol/L (3.40-4.50) H 07/13/21 04:03 ABG Chloride 98.0 mmol/L (98-107) 07/13/21 04:03 ABG Glucose 106 mg/dL (65-95) H 07/13/21 04:03 Oxyhemoglobin 92.5 % (95.0-99.0) L 07/11/21 11:38 Carboxyhemoglobin 0.4 (0.5-1.5) L 07/13/21 04:03 FiO2 100 % 07/11/21 11:38 FiO2 % 100 07/13/21 04:03 Sodium 135 mmol/L (137-145) L 07/13/21 02:55 Potassium 4.8 mmol/L (3.6-5.0) 07/13/21 02:55 Chloride 94.8 mmol/L (98-107) L 07/13/21 02:55 Carbon Dioxide 21 mmol/L (22-30) L 07/13/21 02:55 Anion Gap 24 mmol/L 07/13/21 02:55 BUN 29 mg/dL (7-17) H 07/13/21 02:55 Creatinine 4.2 mg/dL (0.6-1.2) H 07/13/21 02:55 Estimated GFR 13 ml/min 07/13/21 02:55 BUN/Creatinine Ratio 7 % 07/13/21 02:55 Glucose 149 mg/dL (65-100) H 07/13/21 02:55 POC Glucose 110 mg/dL (70-105) H 07/13/21 18:01 Lactic Acid 3.00 mmol/L (0.7-2.0) H* 07/13/21 02:55 Calcium 10.1 mg/dL (8.4-10.2) 07/13/21 02:55 Phosphorus 6.20 mg/dL (2.5-4.5) H 07/13/21 02:55 Magnesium 2.60 mg/dL (1.7-2.3) H 07/13/21 02:55 Total Bilirubin 0.60 mg/dL (0.1-1.2) 07/12/21 04:43 AST 153 units/L (5-40) H 07/12/21 04:43 ALT 117 units/L (7-56) H 07/12/21 04:43 Alkaline Phosphatase 71 units/L (35-129) 07/12/21 04:43 Total Creatine Kinase 136 units/L (30-135) H 07/11/21 Unknown Troponin T 0.037 ng/mL (0.00-0.029) H 07/11/21 Unknown NT-Pro-B Natriuret Pep 94616 pg/mL (0-900) H 07/10/21 21:38 Total Protein 7.5 g/dL (6.3-8.2) 07/12/21 04:43 Albumin 4.0 g/dL (3.9-5) 07/12/21 04:43 Albumin/Globulin Ratio 1.1 % 07/12/21 04:43 Triglycerides 82 mg/dL (2-149) 07/10/21 21:38 Cholesterol 233 mg/dL (50-199) H 07/10/21 21:38 LDL Cholesterol Direct 157 mg/dL (50-130) H 07/10/21 21:38 HDL Cholesterol 52 mg/dL (40-59) 07/10/21 21:38 Cholesterol/HDL Ratio 4.48 % 07/10/21 21:38 Procalcitonin 5.04 ng/mL (<0.15) 07/12/21 14:18 TSH 3.000 mlU/mL (0.270-4.200) 07/13/21 07:52 Free T4 1.60 ng/dL (0.76-1.46) H 07/13/21 07:52 Thyroxine (T4) 10.9 ug/dL (4.0-12.0) 07/13/21 07:52 Arterial Blood Glucose 106 mg/dL (65-95) H 07/13/21 04:03 Arterial Blood Ionized Calcium 4.9 mg/dL (4.6-5.3) 07/12/21 11:00 Random Vancomycin 12.2 ug/mL (0-40.0) 07/13/21 07:52 Coronavirus (PCR) Negative (Negative) 07/12/21 Unknown Hepatitis A IgM Ab Non-reactive (NonReactive) 07/11/21 09:48 Hep Bs Antigen Nonreactive (Negative) 07/11/21 09:48 Hep B Core IgM Ab Non-reactive (NonReactive) 07/11/21 09:48 Hepatitis C Antibody Non-reactive (NonReactive) 07/11/21 09:48 Microbiology: Microbiology 07/12/21 14:18 Peripheral/Venous Blood Culture - Preliminary NO GROWTH AFTER 24 HOURS 07/12/21 14:18 Peripheral/Venous Blood Culture - Preliminary NO GROWTH AFTER 24 HOURS 07/13/21 02:55 Peripheral/Venous Blood Culture - Preliminary Culture in Progress 07/13/21 01:50 Peripheral/Venous Blood Culture - Preliminary Culture in Progress 07/10/21 21:38 Peripheral/Venous Blood Culture - Preliminary NO GROWTH AFTER 48 HOURS 07/10/21 21:44 Peripheral/Venous Blood Culture - Preliminary NO GROWTH AFTER 48 HOURS Garza/IV: Voiding Method Diaper Active Medications - Current Medications Current Medications: Generic Name Dose Route Start Last Admin Trade Name Freq PRN Reason Stop Dose Admin Acetaminophen 650 mg 07/11/21 00:53 07/13/21 00:51 Acetaminophen 325 Mg Tab PO 650 mg Q4H PRN Administration Pain MILD(1-3)/Fever >100.5/COWART Acetaminophen 650 mg 07/12/21 03:40 07/12/21 03:52 Acetaminophen [address] 650 mg Q4H PRN Administration Pain, Mild (1-3) Albuterol 2.5 mg 07/11/21 00:53 Albuterol 2.5 Mg/3 Ml Nebu IH Q4HRT PRN Shortness Of Breath Albuterol/Ipratropium 1 ampul 07/11/21 02:00 07/13/21 19:27 Ipratropium/Albuterol Sulfate 3 Ml Ampul.Neb IH 1 ampul Q6HRT JODI Administration Lipase/Protease/Amylase 1 each 07/13/21 13:10 Lipase 10,500/Protease 25,000/Amylase 43,750 (Units) Dr Thomas FEEDTUBE PRN PRN For Clogged Feeding Tube Atorvastatin Calcium 80 mg 07/12/21 22:00 07/13/21 22:20 Atorvastatin 40 Mg Tab PO 80 mg QHS JODI Administration Clopidogrel Bisulfate 75 mg 07/12/21 18:00 07/13/21 13:50 Clopidogrel 75 Mg Tab PO 75 mg QDAY JODI Administration Dextrose 50 ml 07/12/21 17:22 Dextrose 50% In Water (25gm) 50 Ml Syringe IV Q30MIN PRN Hypoglycemia Protocol Famotidine 10 mg 07/13/21 10:00 07/13/21 22:21 Famotidine 20 Mg/2 Ml Inj IV 10 mg BID JODI Administration Heparin Sodium (Porcine) 5,000 unit 07/11/21 10:00 07/13/21 22:20 Heparin 5,000 Unit/1 Ml Vial SUB-Q 5,000 unit Q12HR JODI Administration Hydralazine HCl 25 mg 07/12/21 22:00 07/13/21 22:20 Hydralazine 25 Mg Tab PO 25 mg BID JODI Administration Hydrophilic Ointment 1 applic 07/12/21 20:55 Lip Therapy Vaseline TP Q2HR PRN Dry Lips Nicardipine HCl 50 mg/ Sodium 250 mls @ 25 mls/hr 07/11/21 22:00 07/12/21 22:30 Chloride IV 0 mg/hr TITR JODI 0 mls/hr Titration Protocol 5 MG/HR Amiodarone HCl 900 mg/ 500 mls @ 33.333 mls/hr 07/12/21 19:00 07/13/21 20:48 Dextrose IV 1 mg/min DIRECT JODI 33.333 mls/hr Administration Protocol 1 MG/MIN Propofol 1,000 mg in 100 mls @ 1.617 mls/hr 07/12/21 21:00 07/13/21 19:20 Diprivan 10 Mg/Ml IV 25 mcg/kg/min TITR JODI 8.085 mls/hr Administration Protocol 5 MCG/KG/MIN Lidocaine HCl/Dextrose 2,000 mg in 500 mls @ 15 mls/hr 07/12/21 23:56 07/13/21 19:19 Xylocaine/D5w 2gm/500ml Drip IV 0.4 mg/min DIRECT JODI 6 mls/hr Titration Protocol 1 MG/MIN Piperacillin Sod/Tazobactam Sod 2.25 gm in 50 mls @ 100 mls/hr 07/13/21 08:00 07/13/21 11:20 Zosyn/Ns 2.25 Gm/50ml IV 100 mls/hr Q8H JODI Administration Protocol Sodium Chloride 100 mls @ 999 mls/hr 07/13/21 11:00 Nacl 0.9% IV GLENDY PRN Hypotension Sodium Chloride 100 mls @ 999 mls/hr 07/13/21 12:00 Nacl 0.9% IV GLENDY PRN Hypotension Insulin Human Lispro 0 unit 07/13/21 12:00 07/13/21 13:36 Insulin Lispro 100 Unit/Ml SUB-Q Not Given Q6HR [facility] Protocol Isosorbide Dinitrate 10 mg 07/13/21 14:00 07/13/21 22:21 Isosorbide Dinitrate 10 Mg Tab PO 10 mg Q8HR JODI Administration Losartan Potassium 25 mg 07/12/21 22:00 07/13/21 22:20 Losartan 25 Mg Tab PO 25 mg BID JODI Administration Metoprolol Tartrate 50 mg 07/13/21 14:00 07/13/21 20:48 Metoprolol Tartrate 50 Mg Tab PO 50 mg TID JODI Administration Multi-Ingred Cream/Lotion/Oil/Oint 1 applic 07/12/21 20:55 Mineral Oil/Petrolatum, White Ophth Oint 3.5 Gm OU Q4HR PRN Dry Eye(s) Ondansetron HCl 4 mg 07/11/21 00:53 Ondansetron 4 Mg/2 Ml Inj IV Q8H PRN Nausea And Vomiting Senna/Docusate Sodium 1 tab 07/12/21 22:00 07/13/21 22:21 Sennosides/Docusate Sodium 8.6/50 Mg Tab FEEDTUBE 1 tab BID JODI Administration Simple Syrup 15 ml 07/13/21 13:10 Simple Syrup 15 Ml FEEDTUBE PRN PRN Hypoglycemia Simple Syrup 30 ml 07/13/21 13:10 Simple Syrup 15 Ml FEEDTUBE PRN PRN Hypoglycemia Sodium Bicarbonate 325 mg 07/13/21 13:10 Sodium Bicarbonate 325 Mg Tab FEEDTUBE PRN PRN For Clogged Feeding Tube Sodium Chloride 10 ml 07/11/21 10:00 07/13/21 22:21 Sodium Chloride 0.9% 10 Ml Flush Syringe IV 10 ml BID JODI Administration Sodium Chloride 10 ml 07/11/21 00:53 Sodium Chloride 0.9% 10 Ml Flush Syringe IV PRN PRN LINE FLUSH Nutrition/Malnutrition Assess - Dietary Evaluation Nutrition/Malnutrition Findings: Nutrition Notes Start: 07/12/21 14:50 Freq: Status: Active Protocol: Document 07/13/21 12:51 CW (Rec: 07/13/21 13:10 CW [id number]) Nutrition Notes Initial or Follow up Reassessment Current Diagnosis CKD (stage V CKD),Diabetes, Hypertension Other Pertinent Diagnosis on HD, Vol. Overload Current Diet NPO Labs/Tests Na 135 BUN 29 Cr 4.2 BG 149 Phos 6.2 Pertinent Medications propofol at 0.259 (9 kcal) Height 5 ft 2 in Weight 51.9 kg [place] Body Weight (kg) 50.00 BMI 20.9 Weight Status Appropriate Subjective/Other Information MD consult for TF. Pt on mechancial vent at this time. Percent of energy/protein needs met: 0%/0% Burn Absent Trauma Absent GI Symptoms None Difficulty In Swallowing Food Allergy No Current % PO Negligible Minimum of two criteria No Fluid Accumulation Mild (non-severe) #2 Nutrition Diagnosis Inadequate oral intake,No nutrition diagnosis at this time Etiology respiratory failure As Evidenced by Signs and Symptoms pt on mechanical vent at this time and unable to consume via PO #1 Nutrition Diagnosis Food and nutrition-related knowledge deficit As Evidenced by Signs and Symptoms No diet education noted; Pt inappropriate at this time for diet education d/t mechancial vent Diagnosis Progress(for reassessment Continues documentation) Is patient on ventilator? Yes Is Patient Ambulatory and/or Out of Bed Yes REE-([facility], [place]-ambulatory/OOB) [ [id number] [id number]] Calculation Used for Recommendations [facility] Additional Notes protein needs: 62 - 104 (1.2 - 2g/kgBW) Fluid needs: 1500 mL for HD or per MD order Nutrition Intervention Change Diet Order: Inititate TF when medically feasible Nutrition Support: Nepro at 35 ml/hr with a free water flush of 150 ml q4h Kcal 1,512 Protein (gm) 68 Fluid (mL) 611 Goal #1 Meet at least 75% of kcal and protein needs via TF Follow-Up By: 07/16/21 Additional Comments F/u for TF start and [place]
[2021-07-13] MEDS: AMIODARONE 900 MG in DEXTROSE 5% IN WATER 482 ML IV SCH (20:48)
[2021-07-14] MEDS: INSULIN LISPRO 100 UNIT/ML SUB-Q SCH ×4 (00:45→17:58)
--- NOTE | 2021-07-14 02:29 | Progress Note ---
Assessment and Plan 60 y/o female with ESRD on HD TTS admitted with acute respiratory failure secondary to volume overload, now with what appears to be VT storm aborted with lidocaine drip 07/14/21: Continue vent and sedation. Per cards cath tomorrow while on vent. HD per renal, got it today with 3.5 off. Follow up electrolytes in the am and keep K at 4 and Mag at 2. 07/13/21: Continue sedation on vent. Per cards, plan to cath on vent on Thursday. Once cathed then will determine if transfer is needed to [place] for ablation. Continue sedation and lidocaine drip. HD per renal but likely not again until Thursday. CCT 31 minutes. 1. Continue precedex for now 2. Wean off either during HD or post if BP becomes an issue 3. Monitor in unit tonight and likely transfer out in the am as she is on room air now. If bed is needed may move sooner. Subjective Date of service: 07/14/21 Principal diagnosis: ESRD Interval history: Sedated on the vent. Minimal support. Off lidocaine now and currently on Amio at 1 and metoprolol 50 TID. Per nursing no episodes of VTACH. remainder is negative. Objective Vital Signs - 12hr 07/13/21 07/13/21 07/13/21 14:30 14:45 15:00 Temperature Pulse Rate 70 70 70 Pulse Rate [ Anterior Bilateral Throughout] Pulse Rate [ From Monitor] Respiratory 16 16 16 Rate Respiratory Rate [Anterior Bilateral Throughout] Blood Pressure 108/64 113/64 152/69 O2 Sat by Pulse 99 100 99 Oximetry O2 Sat by Pulse Oximetry [ Anterior Bilateral Throughout] 07/13/21 07/13/21 07/13/21 15:15 15:30 15:45 Temperature Pulse Rate 76 70 70 Pulse Rate [ Anterior Bilateral Throughout] Pulse Rate [ From Monitor] Respiratory 15 16 16 Rate Respiratory Rate [Anterior Bilateral Throughout] Blood Pressure 135/75 144/73 134/71 O2 Sat by Pulse 100 100 100 Oximetry O2 Sat by Pulse Oximetry [ Anterior Bilateral Throughout] 07/13/21 07/13/21 07/13/21 16:00 16:15 16:30 Temperature 98.8 F Pulse Rate 70 70 70 Pulse Rate [ Anterior Bilateral Throughout] Pulse Rate [ 70 From Monitor] Respiratory 17 17 15 Rate Respiratory Rate [Anterior Bilateral Throughout] Blood Pressure 143/75 155/77 167/81 O2 Sat by Pulse 100 100 100 Oximetry O2 Sat by Pulse Oximetry [ Anterior Bilateral Throughout] 07/13/21 07/13/21 07/13/21 16:45 17:00 17:15 Temperature 98.6 F Pulse Rate 70 70 89 Pulse Rate [ Anterior Bilateral Throughout] Pulse Rate [ From Monitor] Respiratory 16 16 18 Rate Respiratory Rate [Anterior Bilateral Throughout] Blood Pressure 166/81 164/75 164/75 O2 Sat by Pulse 100 100 Oximetry O2 Sat by Pulse 100 Oximetry [ Anterior Bilateral Throughout] 07/13/21 07/13/21 07/13/21 17:30 17:45 17:51 Temperature Pulse Rate 70 70 Pulse Rate [ Anterior Bilateral Throughout] Pulse Rate [ 70 From Monitor] Respiratory Rate Respiratory Rate [Anterior Bilateral Throughout] Blood Pressure 162/80 173/82 O2 Sat by Pulse Oximetry O2 Sat by Pulse Oximetry [ Anterior Bilateral Throughout] 07/13/21 07/13/21 07/13/21 18:00 18:15 18:30 Temperature Pulse Rate 70 70 70 Pulse Rate [ Anterior Bilateral Throughout] Pulse Rate [ From Monitor] Respiratory Rate Respiratory Rate [Anterior Bilateral Throughout] Blood Pressure 166/81 169/70 170/69 O2 Sat by Pulse Oximetry O2 Sat by Pulse Oximetry [ Anterior Bilateral Throughout] 07/13/21 07/13/21 07/13/21 18:45 19:00 19:15 Temperature Pulse Rate 70 70 72 Pulse Rate [ Anterior Bilateral Throughout] Pulse Rate [ From Monitor] Respiratory 14 11 L 12 Rate Respiratory Rate [Anterior Bilateral Throughout] Blood Pressure 162/55 167/50 152/69 O2 Sat by Pulse 100 100 92 Oximetry O2 Sat by Pulse Oximetry [ Anterior Bilateral Throughout] 07/13/21 07/13/21 07/13/21 19:27 19:29 19:30 Temperature Pulse Rate 70 70 Pulse Rate [ 72 Anterior Bilateral Throughout] Pulse Rate [ From Monitor] Respiratory 18 Rate Respiratory 18 Rate [Anterior Bilateral Throughout] Blood Pressure 152/69 150/70 O2 Sat by Pulse 100 88 Oximetry O2 Sat by Pulse Oximetry [ Anterior Bilateral Throughout] 07/13/21 07/13/21 07/13/21 19:45 20:00 20:01 Temperature Pulse Rate 70 70 70 Pulse Rate [ Anterior Bilateral Throughout] Pulse Rate [ 70 From Monitor] Respiratory 13 20 16 Rate Respiratory Rate [Anterior Bilateral Throughout] Blood Pressure 137/62 143/68 143/68 O2 Sat by Pulse 100 100 90 Oximetry O2 Sat by Pulse Oximetry [ Anterior Bilateral Throughout] 07/13/21 07/13/21 07/13/21 20:15 20:24 20:30 Temperature 98.4 F Pulse Rate 72 70 80 Pulse Rate [ Anterior Bilateral Throughout] Pulse Rate [ From Monitor] Respiratory 10 L 16 19 Rate Respiratory Rate [Anterior Bilateral Throughout] Blood Pressure 143/70 92/61 76/48 O2 Sat by Pulse 48 L 100 99 Oximetry O2 Sat by Pulse Oximetry [ Anterior Bilateral Throughout] 07/13/21 07/13/21 07/13/21 20:42 20:45 20:48 Temperature Pulse Rate 70 70 70 Pulse Rate [ Anterior Bilateral Throughout] Pulse Rate [ From Monitor] Respiratory 17 17 Rate Respiratory Rate [Anterior Bilateral Throughout] Blood Pressure 147/73 175/84 175/84 O2 Sat by Pulse 100 100 Oximetry O2 Sat by Pulse Oximetry [ Anterior Bilateral Throughout] 07/13/21 07/13/21 07/13/21 20:52 21:00 21:02 Temperature 98.2 F Pulse Rate 70 70 70 Pulse Rate [ Anterior Bilateral Throughout] Pulse Rate [ From Monitor] Respiratory 15 18 16 Rate Respiratory Rate [Anterior Bilateral Throughout] Blood Pressure 175/84 147/73 175/84 O2 Sat by Pulse 96 98 99 Oximetry O2 Sat by Pulse 100 Oximetry [ Anterior Bilateral Throughout] 07/13/21 07/13/21 07/13/21 21:15 21:30 21:45 Temperature Pulse Rate 70 70 70 Pulse Rate [ Anterior Bilateral Throughout] Pulse Rate [ From Monitor] Respiratory 16 16 17 Rate Respiratory Rate [Anterior Bilateral Throughout] Blood Pressure 159/65 148/69 156/70 O2 Sat by Pulse 100 100 100 Oximetry O2 Sat by Pulse Oximetry [ Anterior Bilateral Throughout] 07/13/21 07/13/21 07/13/21 22:00 22:15 22:20 Temperature Pulse Rate 70 70 70 Pulse Rate [ Anterior Bilateral Throughout] Pulse Rate [ From Monitor] Respiratory 12 14 Rate Respiratory Rate [Anterior Bilateral Throughout] Blood Pressure 158/57 164/64 164/64 O2 Sat by Pulse 100 100 Oximetry O2 Sat by Pulse Oximetry [ Anterior Bilateral Throughout] 07/13/21 07/13/21 07/13/21 22:21 22:31 22:45 Temperature Pulse Rate 70 70 70 Pulse Rate [ Anterior Bilateral Throughout] Pulse Rate [ From Monitor] Respiratory 16 17 Rate Respiratory Rate [Anterior Bilateral Throughout] Blood Pressure 164/64 168/60 141/66 O2 Sat by Pulse 100 100 Oximetry O2 Sat by Pulse Oximetry [ Anterior Bilateral Throughout] 07/13/21 07/13/21 07/13/21 23:00 23:14 23:15 Temperature 98.1 F Pulse Rate 70 70 Pulse Rate [ Anterior Bilateral Throughout] Pulse Rate [ From Monitor] Respiratory 14 15 Rate Respiratory Rate [Anterior Bilateral Throughout] Blood Pressure 132/68 125/64 O2 Sat by Pulse 100 99 Oximetry O2 Sat by Pulse Oximetry [ Anterior Bilateral Throughout] 07/13/21 07/13/21 07/13/21 23:30 23:45 23:59 Temperature Pulse Rate 70 70 70 Pulse Rate [ Anterior Bilateral Throughout] Pulse Rate [ From Monitor] Respiratory 15 14 Rate Respiratory Rate [Anterior Bilateral Throughout] Blood Pressure 124/70 126/78 126/78 O2 Sat by Pulse 99 99 100 Oximetry O2 Sat by Pulse Oximetry [ Anterior Bilateral Throughout] 07/14/21 07/14/21 07/14/21 00:00 00:01 00:15 Temperature Pulse Rate 70 70 70 Pulse Rate [ Anterior Bilateral Throughout] Pulse Rate [ 70 From Monitor] Respiratory 20 15 16 Rate Respiratory Rate [Anterior Bilateral Throughout] Blood Pressure 149/68 142/68 O2 Sat by Pulse 100 100 99 Oximetry O2 Sat by Pulse Oximetry [ Anterior Bilateral Throughout] 07/14/21 07/14/21 07/14/21 00:30 00:45 01:00 Temperature Pulse Rate 70 70 70 Pulse Rate [ Anterior Bilateral Throughout] Pulse Rate [ From Monitor] Respiratory 16 16 16 Rate Respiratory Rate [Anterior Bilateral Throughout] Blood Pressure 118/57 123/60 129/62 O2 Sat by Pulse 99 99 100 Oximetry O2 Sat by Pulse Oximetry [ Anterior Bilateral Throughout] 07/14/21 07/14/21 07/14/21 01:15 01:31 01:45 Temperature Pulse Rate 70 70 70 Pulse Rate [ Anterior Bilateral Throughout] Pulse Rate [ From Monitor] Respiratory 16 15 16 Rate Respiratory Rate [Anterior Bilateral Throughout] Blood Pressure 135/64 149/94 154/71 O2 Sat by Pulse 100 100 99 Oximetry O2 Sat by Pulse Oximetry [ Anterior Bilateral Throughout] 07/14/21 02:00 Temperature Pulse Rate 70 Pulse Rate [ Anterior Bilateral Throughout] Pulse Rate [ From Monitor] Respiratory 15 Rate Respiratory Rate [Anterior Bilateral Throughout] Blood Pressure 150/76 O2 Sat by Pulse 100 Oximetry O2 Sat by Pulse Oximetry [ Anterior Bilateral Throughout] Constitutional: no acute distress, alert Eyes: non-icteric ENT: oropharynx moist Neck: supple Ascultation: Bilateral: rales Percussion: Bilateral: not dull Cardiovascular: regular rate and rhythm Gastrointestinal: normoactive bowel sounds, soft Extremities: pink and warm, pulses normal CBC and BMP: 07/13/21 02:55 07/13/21 02:55 ABG, PT/INR, D-dimer: ABG ABG pH 7.471 (7.320-7.450) H 07/13/21 04:03 POC ABG pCO2 33.1 mmHg (32.0-48.0) 07/13/21 04:03 ABG pCO2 45.6 mm Hg 07/11/21 11:38 POC ABG pO2 270.3 mmHg (83-108) H 07/13/21 04:03 ABG pO2 78.8 mm Hg (80.0-90.0) L 07/11/21 11:38 POC ABG HCO3 23.6 07/13/21 04:03 ABG O2 Saturation 99.9 (0-100) 07/13/21 04:03 Abnormal lab findings: Abnormal Labs 07/10/21 07/10/21 07/10/21 21:38 21:38 21:38 WBC 4.2 L RBC Hgb 9.2 L Hct 29.6 L MCH 25 L RDW 17.1 H [place] % (Auto) 13.8 H Baso % (Auto) 2.8 H Lymph # (Auto) 0.9 L APTT 40.5 H ABG pH POC ABG pCO2 POC ABG pO2 ABG pO2 ABG O2 Saturation ABG Hemoglobin ABG Oxyhemoglobin ABG Sodium ABG Potassium ABG Glucose Oxyhemoglobin Carboxyhemoglobin Sodium 136 L Chloride 95.3 L Carbon Dioxide BUN 35 H Creatinine 6.6 H Glucose POC Glucose Lactic Acid Phosphorus Magnesium AST ALT Total Creatine Kinase Troponin T 0.035 H NT-Pro-B Natriuret Pep Total Protein 8.7 H Cholesterol 233 H LDL Cholesterol Direct 157 H Free T4 Arterial Blood Glucose 07/10/21 07/11/21 07/11/21 21:38 08:20 10:03 WBC RBC Hgb Hct MCH RDW [place] % (Auto) Baso % (Auto) Lymph # (Auto) APTT ABG pH POC ABG pCO2 POC ABG pO2 ABG pO2 ABG O2 Saturation ABG Hemoglobin ABG Oxyhemoglobin ABG Sodium ABG Potassium ABG Glucose Oxyhemoglobin Carboxyhemoglobin Sodium Chloride Carbon Dioxide BUN Creatinine Glucose POC Glucose 112 H Lactic Acid 0.60 L Phosphorus Magnesium AST ALT Total Creatine Kinase Troponin T NT-Pro-B Natriuret Pep 11969 H Total Protein Cholesterol LDL Cholesterol Direct Free T4 Arterial Blood Glucose 07/11/21 07/11/21 07/11/21 11:27 11:38 Unknown WBC RBC Hgb Hct MCH RDW [place] % (Auto) Baso % (Auto) Lymph # (Auto) APTT ABG pH 7.343 L POC ABG pCO2 POC ABG pO2 ABG pO2 78.8 L ABG O2 Saturation 94.8 L ABG Hemoglobin 10.1 L ABG Oxyhemoglobin ABG Sodium ABG Potassium ABG Glucose Oxyhemoglobin 92.5 L Carboxyhemoglobin Sodium Chloride Carbon Dioxide BUN Creatinine Glucose POC Glucose 155 H Lactic Acid Phosphorus Magnesium AST ALT Total Creatine Kinase 136 H Troponin T NT-Pro-B Natriuret Pep Total Protein Cholesterol LDL Cholesterol Direct Free T4 Arterial Blood Glucose 07/11/21 07/12/21 07/12/21 Unknown 04:43 04:43 WBC RBC 3.36 L Hgb 8.4 L Hct 26.6 L MCH 25 L RDW 16.7 H [place] % (Auto) 12.4 H Baso % (Auto) 2.2 H Lymph # (Auto) 1.0 L APTT ABG pH POC ABG pCO2 POC ABG pO2 ABG pO2 ABG O2 Saturation ABG Hemoglobin ABG Oxyhemoglobin ABG Sodium ABG Potassium ABG Glucose Oxyhemoglobin Carboxyhemoglobin Sodium Chloride 95.2 L Carbon Dioxide BUN 31 H Creatinine 5.4 H Glucose POC Glucose Lactic Acid Phosphorus Magnesium AST 153 H ALT 117 H Total Creatine Kinase Troponin T 0.037 H NT-Pro-B Natriuret Pep Total Protein Cholesterol LDL Cholesterol Direct Free T4 Arterial Blood Glucose 07/12/21 07/12/21 07/12/21 11:00 19:12 19:37 WBC RBC Hgb Hct MCH RDW [place] % (Auto) Baso % (Auto) Lymph # (Auto) APTT ABG pH POC ABG pCO2 POC ABG pO2 ABG pO2 ABG O2 Saturation ABG Hemoglobin 8.4 L ABG Oxyhemoglobin ABG Sodium 135.3 L ABG Potassium ABG Glucose Oxyhemoglobin Carboxyhemoglobin Sodium Chloride Carbon Dioxide BUN Creatinine Glucose POC Glucose 131 H Lactic Acid Phosphorus Magnesium 2.60 H AST ALT Total Creatine Kinase Troponin T NT-Pro-B Natriuret Pep Total Protein Cholesterol LDL Cholesterol Direct Free T4 Arterial Blood Glucose 07/12/21 07/13/21 07/13/21 22:03 02:55 02:55 WBC RBC Hgb 9.4 L Hct MCH 25 L RDW 16.9 H [place] % (Auto) Baso % (Auto) Lymph # (Auto) APTT ABG pH 7.512 H POC ABG pCO2 31.9 L POC ABG pO2 80.0 L ABG pO2 ABG O2 Saturation ABG Hemoglobin 11 L ABG Oxyhemoglobin ABG Sodium ABG Potassium ABG Glucose 162 H Oxyhemoglobin Carboxyhemoglobin 0.2 L Sodium 135 L Chloride 94.8 L Carbon Dioxide 21 L BUN 29 H Creatinine 4.2 H Glucose 149 H POC Glucose Lactic Acid Phosphorus 6.20 H Magnesium 2.60 H AST ALT Total Creatine Kinase Troponin T NT-Pro-B Natriuret Pep Total Protein Cholesterol LDL Cholesterol Direct Free T4 Arterial Blood Glucose 162 H 07/13/21 07/13/21 07/13/21 02:55 04:03 07:52 WBC RBC Hgb Hct MCH RDW [place] % (Auto) Baso % (Auto) Lymph # (Auto) APTT ABG pH 7.471 H POC ABG pCO2 POC ABG pO2 270.3 H ABG pO2 ABG O2 Saturation ABG Hemoglobin 9.6 L ABG Oxyhemoglobin 99.4 H ABG Sodium ABG Potassium 5.2 H ABG Glucose 106 H Oxyhemoglobin Carboxyhemoglobin 0.4 L Sodium Chloride Carbon Dioxide BUN Creatinine Glucose POC Glucose Lactic Acid 3.00 H* Phosphorus Magnesium AST ALT Total Creatine Kinase Troponin T NT-Pro-B Natriuret Pep Total Protein Cholesterol LDL Cholesterol Direct Free T4 1.60 H Arterial Blood Glucose 106 H 07/13/21 07/13/21 11:40 18:01 WBC RBC Hgb Hct MCH RDW [place] % (Auto) Baso % (Auto) Lymph # (Auto) APTT ABG pH POC ABG pCO2 POC ABG pO2 ABG pO2 ABG O2 Saturation ABG Hemoglobin ABG Oxyhemoglobin ABG Sodium ABG Potassium ABG Glucose Oxyhemoglobin Carboxyhemoglobin Sodium Chloride Carbon Dioxide BUN Creatinine Glucose POC Glucose 109 H 110 H Lactic Acid Phosphorus Magnesium AST ALT Total Creatine Kinase Troponin T NT-Pro-B Natriuret Pep Total Protein Cholesterol LDL Cholesterol Direct Free T4 Arterial Blood Glucose
[2021-07-14] MEDS: IPRATROPIUM/ALBUTEROL SULFATE 3 ML AMPUL.NEB IH SCH ×4 (02:39→20:13)
[2021-07-14] MEDS: ISOSORBIDE DINITRATE 10 MG TAB PO SCH ×3 (05:30→21:24)
--- NOTE | 2021-07-14 05:47 | XRay Report ---
XR chest 1V ap INDICATION / CLINICAL INFORMATION: follow up respiratory failure. COMPARISON: Radiograph from yesterday. FINDINGS: SUPPORT DEVICES: Unchanged. HEART /PULMONARY VASCULATURE: Unchanged. LUNGS / PLEURA: Unchanged right basilar airspace disease. Left lung remains clear. No sizable pleural effusion. No pneumothorax. IMPRESSION: 1. No significant interval change. Signer Name: Bill Elaine MD Signed: 07/14/2021 5:43 AM Workstation Name: [id number]
[2021-07-14 06:41] LABS: Hematocrit 30.5 % (30.3-42.9); Hemoglobin 9.9 gm/dl (10.1-14.3); Mean Corpuscular HGB Conc 32 % (30-34); Mean Corpuscular Volume 80 fl (79-97); Red Blood Count 3.83 M/mm3 (3.65-5.03); Red Cell Distribution Width 16.8 % (13.2-15.2)
[2021-07-14 06:43] LABS: Platelet Count 211 K/mm3 (140-440)
[2021-07-14 06:58] LABS: Calcium 10.5 mg/dL (8.4-10.2)
[2021-07-14] MEDS: PIPERACIL-TAZO 2.25 GM/50 ML 2.25 GM/50 ML BAG IV SCH ×4 (08:17→16:33)
[2021-07-14] MEDS: METOPROLOL TARTRATE 50 MG TAB PO SCH ×4 (08:56→20:10)
[2021-07-14] MEDS: CLOPIDOGREL 75 MG TAB PO SCH (09:00)
[2021-07-14] MEDS: SENNOSIDES/DOCUSATE SODIUM 8.6/50 MG TAB FEEDTUBE SCH ×2 (09:00→21:24)
[2021-07-14] MEDS: FAMOTIDINE 20 MG/2 ML INJ IV SCH ×2 (09:00→21:23)
[2021-07-14] MEDS: FREE WATER PO SCH ×5 (09:01→21:27)
[2021-07-14] MEDS ORDERED: SODIUM CHLORIDE 0.9% 500 ML 500 ML IV SCH (10:00)
[2021-07-14] MEDS ORDERED: LOSARTAN 25 MG TAB PO SCH (10:00)
--- NOTE | 2021-07-14 10:19 | Progress Note ---
<DAYAWALTERKristina - Last Filed: 07/14/21 10:14> Assessment and Plan Assessment and plan: This is 60-year-old female with HTN, CVA, DM, ESRD on HD, hyperparathyroidism, CHF admitted for volume overload, possible acute CHF exacerbation and acute hypoxic respiratory distress. Neuro: Acute agitation, h/o CVA -S/p Precedex drip -Sedated with propofol -RASS goal 0 to -1 -Avoid delirium -Reorientation as needed -Maintain sleep-wake cycle Cardio: Ventricular tachycardia storm congestive heart failure/volume overload, h/o HTN -Cardiology consulted, appreciate recommendations -Continue home antihypertensive regimen and adjust as needed -hydralazine D/C, cozaar/metoprolol/isordil decreased -S/p multiple firing of AICD device (VT/torsades) -S/p magnesium drip -S/p amio push -AICD to be interrogated 07/13 -Plan for cardiac cath while vented for 07/15 per cards or possible transfer to [facility] for ablation -Amiodarone and lidocaine drip -lidocaine gtt off yesterday evening -Amio to 0.5 now and off this evening per cards -Echocardiogram shows LVEF 55 to 60%, normal bivalve function, mild LVH, trace MR, RVSP 67 mmHg, mild TR, trace MO -s/p Cardene gtt -Blood pressure monitoring per protocol Respiratory: Acute respiratory failure -Pulmicrit consulted, appreciate recommendations -S/p BiPAP therapy-> weaned ot ventimask to RA -Intubated on 07/12 with 7.00 ETT at 24 at the lips by ED physician -A.m. vent settings: Assist-control rate 16, tidal volume 450, FiO2 35%, PEEP 6 -See RT notes for titration -A.m. ABG noted -CCM consulted -VAP bundle -SPO2 monitoring GI: NAD -PPI -NTR consult for tube feeding -BR: Senna -24 hour +1111 ML -Hd removed 3.5 L 07/14 : ESRD on HD, Hyponatremia, hypochloremia -Garza 07/12-07/13 -HD per nephrology -Nephrology consulted, appreciate recommendations -Trend BMP -Avoid nephrotoxic medications -Renally dose medications Heme: Anemia of chronic disease -Trend CBC -Transfuse for hemoglobin less than 7 -SCDs to BLE while in bed -Heparin subq ID: Febrile illness, Lactic acidosis -COVID-19 PCR negative -ABX: Zosyn and vancomycin -Trend WBC and fever curve -Follow-up cultures -ID consulted, appreciate recommendations Endo: h/o DM -SSI -Accu-Cheks AC q6hr -Avoid hypoglycemia -Long-acting insulin as needed The high probability of a clinically significant, sudden or life threatening deterioration of the [resp] system(s) required my full and direct attention, intervention and personal management. The aggregate critical care time was [60] minutes. This time is in addition to time spent performing reported procedures but includes the following: [x] Data Review and interpretation [x] Patient assessment and monitoring of vital signs [x] Documentation [x] Medication orders and management Disposition Plan: icu Total Time Spent with Patient (Minutes): 60 History Interval history: This is a 60-year-old female with HTN, CVA, DM, ESRD on HD, pacemaker/AICD, HI, prolonged QT interval, cardiac arrest x1, CAD s/p stent x1, CHF and hyperparathyroidism who presented to emergency department with headache, abdominal pain, insomnia, missed dialysis on 07/10 via EMS. Per EMS on arrival patient SPO2 on room air was 84% and she was placed on 3 L nasal cannula with improvement to 92%. Work-up in the emergency department revealed elevated BUN/creatinine, elevated proBNP,elevated troponins and CXR was suspicious for acute CHF exacerbation. Patient was admitted to the hospital service with consult to nephrology. 07/11: Patient transferred to IMCU/ICU for agitation, hypoxia. Cardiology was consulted and echocardiogram was ordered. Patient was placed on BiPAP therapy and received hemodialysis with removal of 4 L. FiO2 was able to be decreased to 50% after dialysis. 07/12: Patient was weaned off of BiPAP to Ventimask which she removed. HD scheduled for today. Patient is on a Precedex drip for agitation and will titrate off as tolerated. Possible transfer out of the unit tomorrow. COVID-19 PCR negative 07/13: Patient was intubated overnight for sustained ventricular tachycardia with multiple AICD shocks despite IV push amiodarone, amiodarone drip , no insulin bolus and magnesium drip. Patient currently on lidocaine drip, amiodarone drip, propofol for sedation. Cardiology increase metoprolol to 3 times daily. Device will be interrogated today. 07/14: Adjusted BP meds today r/y hypotension. Plan to perform LHC tomorrow. Of lidocaine gtt and amio to be turned to 0.5 and off this evening. Hospitalist Physical - Constitutional Vitals: Temp Pulse Resp BP Pulse Ox 96.4 F L 70 14 108/69 100 07/14/21 03:26 07/14/21 08:56 07/14/21 08:30 07/14/21 08:56 07/14/21 08:30 General appearance: Present: no acute distress, other (sedated) - EENT Eyes: Present: PERRL, EOM intact ENT: dentition normal - Neck Neck: Present: normal ROM - Respiratory Respiratory effort: normal Respiratory: bilateral: diminished - Cardiovascular Rhythm: regular Heart Sounds: Present: S1 & S2. Absent: systolic murmur, diastolic murmur - Extremities Extremities: no ischemia, pulses intact, pulses symmetrical, No edema, normal temperature, normal color Peripheral Pulses: within normal limits - Abdominal General gastrointestinal: soft, non-tender, non-distended, normal bowel sounds - Integumentary Integumentary: Present: warm, dry - Psychiatric Psychiatric: other (sedated) - Neurologic Neurologic: other (sedated but moves around in bed) - Allied Health Allied health notes reviewed: nursing, RT, social work HEART Score - HEART Score Troponin: Troponin T 0.037 ng/mL (0.00-0.029) H 07/11/21 Unknown Results - Labs CBC & Chem 7: 07/14/21 06:19 07/14/21 06:19 Labs: Laboratory Last Values WBC 6.9 K/mm3 (4.5-11.0) 07/14/21 06:19 RBC 3.83 M/mm3 (3.65-5.03) 07/14/21 06:19 Hgb 9.9 gm/dl (10.1-14.3) L 07/14/21 06:19 Hct 30.5 % (30.3-42.9) 07/14/21 06:19 MCV 80 fl (79-97) 07/14/21 06:19 MCH 26 pg (28-32) L 07/14/21 06:19 MCHC 32 % (30-34) 07/14/21 06:19 RDW 16.8 % (13.2-15.2) H 07/14/21 06:19 Plt Count 211 K/mm3 (140-440) 07/14/21 06:19 Lymph % (Auto) 19.8 % (13.4-35.0) 07/12/21 04:43 Bland % (Auto) 12.4 % (0.0-7.3) H 07/12/21 04:43 Eos % (Auto) 0.4 % (0.0-4.3) 07/12/21 04:43 Baso % (Auto) 2.2 % (0.0-1.8) H 07/12/21 04:43 Lymph # (Auto) 1.0 K/mm3 (1.2-5.4) L 07/12/21 04:43 Bland # (Auto) 0.6 K/mm3 (0.0-0.8) 07/12/21 04:43 Eos # (Auto) 0.0 K/mm3 (0.0-0.4) 07/12/21 04:43 Baso # (Auto) 0.1 K/mm3 (0.0-0.1) 07/12/21 04:43 Seg Neutrophils % 65.2 % (40.0-70.0) 07/12/21 04:43 Seg Neutrophils # 3.4 K/mm3 (1.8-7.7) 07/12/21 04:43 APTT 40.5 Sec. (24.2-36.6) H 07/10/21 21:38 ABG pH 7.531 (7.320-7.450) H 07/14/21 03:56 POC ABG pCO2 31.4 mmHg (32.0-48.0) L 07/14/21 03:56 ABG pCO2 45.6 mm Hg 07/11/21 11:38 POC ABG pO2 150.8 mmHg (83-108) H 07/14/21 03:56 ABG pO2 78.8 mm Hg (80.0-90.0) L 07/11/21 11:38 POC ABG HCO3 25.7 07/14/21 03:56 ABG HCO3 24.2 mmol/L (20.0-26.0) 07/11/21 11:38 ABG O2 Saturation 99.3 (0-100) 07/14/21 03:56 POC ABG Base Excess 3.3 07/14/21 03:56 ABG Base Excess -1.6 mmol/L (-2.0-3.0) 07/11/21 11:38 ABG Hemoglobin 10.6 (12.0-17.5) L 07/14/21 03:56 ABG Oxyhemoglobin 99.3 (94-98) H 07/14/21 03:56 ABG Carboxyhemoglobin 2.0 % (0.0-5.0) 07/11/21 11:38 ABG Methemoglobin 0 (0.0-1.5) 07/14/21 03:56 ABG Sodium 135.1 mmol/L (136.0-145.0) L 07/14/21 03:56 ABG Potassium 3.2 mmol/L (3.40-4.50) L 07/14/21 03:56 ABG Chloride 94.0 mmol/L (98-107) L 07/14/21 03:56 ABG Glucose 118 mg/dL (65-95) H 07/14/21 03:56 Oxyhemoglobin 92.5 % (95.0-99.0) L 07/11/21 11:38 Carboxyhemoglobin 0 (0.5-1.5) L 07/14/21 03:56 FiO2 100 % 07/11/21 11:38 FiO2 % 35 07/14/21 03:56 Sodium 133 mmol/L (137-145) L 07/14/21 06:19 Potassium 4.0 mmol/L (3.6-5.0) 07/14/21 06:19 Chloride 90.7 mmol/L (98-107) L 07/14/21 06:19 Carbon Dioxide 22 mmol/L (22-30) 07/14/21 06:19 Anion Gap 24 mmol/L 07/14/21 06:19 BUN 29 mg/dL (7-17) H 07/14/21 06:19 Creatinine 3.8 mg/dL (0.6-1.2) H 07/14/21 06:19 Estimated GFR 15 ml/min 07/14/21 06:19 BUN/Creatinine Ratio 8 % 07/14/21 06:19 Glucose 113 mg/dL (65-100) H 07/14/21 06:19 POC Glucose 113 mg/dL (70-105) H 07/14/21 05:23 Lactic Acid 3.00 mmol/L (0.7-2.0) H* 07/13/21 02:55 Calcium 10.5 mg/dL (8.4-10.2) H 07/14/21 06:19 Phosphorus 4.10 mg/dL (2.5-4.5) D 07/14/21 06:19 Magnesium 2.20 mg/dL (1.7-2.3) 07/14/21 06:19 Total Bilirubin 0.60 mg/dL (0.1-1.2) 07/12/21 04:43 AST 153 units/L (5-40) H 07/12/21 04:43 ALT 117 units/L (7-56) H 07/12/21 04:43 Alkaline Phosphatase 71 units/L (35-129) 07/12/21 04:43 Total Creatine Kinase 136 units/L (30-135) H 07/11/21 Unknown Troponin T 0.037 ng/mL (0.00-0.029) H 07/11/21 Unknown NT-Pro-B Natriuret Pep 81171 pg/mL (0-900) H 07/10/21 21:38 Total Protein 7.5 g/dL (6.3-8.2) 07/12/21 04:43 Albumin 4.0 g/dL (3.9-5) 07/12/21 04:43 Albumin/Globulin Ratio 1.1 % 07/12/21 04:43 Triglycerides 82 mg/dL (2-149) 07/10/21 21:38 Cholesterol 233 mg/dL (50-199) H 07/10/21 21:38 LDL Cholesterol Direct 157 mg/dL (50-130) H 07/10/21 21:38 HDL Cholesterol 52 mg/dL (40-59) 07/10/21 21:38 Cholesterol/HDL Ratio 4.48 % 07/10/21 21:38 Procalcitonin 5.04 ng/mL (<0.15) 07/12/21 14:18 TSH 3.000 mlU/mL (0.270-4.200) 07/13/21 07:52 Free T4 1.60 ng/dL (0.76-1.46) H 07/13/21 07:52 Thyroxine (T4) 10.9 ug/dL (4.0-12.0) 07/13/21 07:52 Arterial Blood Glucose 118 mg/dL (65-95) H 07/14/21 03:56 Arterial Blood Ionized Calcium 4.9 mg/dL (4.6-5.3) 07/14/21 03:56 Random Vancomycin 12.2 ug/mL (0-40.0) 07/13/21 07:52 Coronavirus (PCR) Negative (Negative) 07/12/21 Unknown Hepatitis A IgM Ab Non-reactive (NonReactive) 07/11/21 09:48 Hep Bs Antigen Nonreactive (Negative) 07/11/21 09:48 Hep B Core IgM Ab Non-reactive (NonReactive) 07/11/21 09:48 Hepatitis C Antibody Non-reactive (NonReactive) 07/11/21 09:48 Microbiology: Microbiology 07/12/21 22:52 Tracheal Aspirate Sputum Culture - Final 07/13/21 02:55 Peripheral/Venous Blood Culture - Preliminary NO GROWTH AFTER 24 HOURS 07/13/21 01:50 Peripheral/Venous Blood Culture - Preliminary NO GROWTH AFTER 24 HOURS 07/10/21 21:38 Peripheral/Venous Blood Culture - Preliminary NO GROWTH AFTER 72 HOURS 07/10/21 21:44 Peripheral/Venous Blood Culture - Preliminary NO GROWTH AFTER 72 HOURS 07/12/21 14:18 Peripheral/Venous Blood Culture - Preliminary NO GROWTH AFTER 24 HOURS 07/12/21 14:18 Peripheral/Venous Blood Culture - Preliminary NO GROWTH AFTER 24 HOURS Garza/IV: Voiding Method Diaper Active Medications - Current Medications Current Medications: Generic Name Dose Route Start Last Admin Trade Name Freq PRN Reason Stop Dose Admin Acetaminophen 650 mg 07/11/21 00:53 07/13/21 00:51 Acetaminophen 325 Mg Tab PO 650 mg Q4H PRN Administration Pain MILD(1-3)/Fever >100.5/COWART Acetaminophen 650 mg 07/12/21 03:40 07/12/21 03:52 Acetaminophen 650 Mg Rect Supp MO 650 mg Q4H PRN Administration Pain, Mild (1-3) Albuterol 2.5 mg 07/11/21 00:53 Albuterol 2.5 Mg/3 Ml Nebu IH Q4HRT PRN Shortness Of Breath Albuterol/Ipratropium 1 ampul 07/11/21 02:00 07/14/21 07:44 Ipratropium/Albuterol Sulfate 3 Ml Ampul.Neb IH 1 ampul Q6HRT JODI Administration Lipase/Protease/Amylase 1 each 07/13/21 13:10 Lipase 10,500/Protease 25,000/Amylase 43,750 (Units) Dr Thomas FEEDTUBE PRN PRN For Clogged Feeding Tube Atorvastatin Calcium 80 mg 07/12/21 22:00 07/13/21 22:20 Atorvastatin 40 Mg Tab PO 80 mg QHS JODI Administration Clopidogrel Bisulfate 75 mg 07/12/21 18:00 07/14/21 09:00 Clopidogrel 75 Mg Tab PO 75 mg QDAY JODI Administration Dextrose 50 ml 07/12/21 17:22 Dextrose 50% In Water (25gm) 50 Ml Syringe IV Q30MIN PRN Hypoglycemia Protocol Famotidine 10 mg 07/13/21 10:00 07/14/21 09:00 Famotidine 20 Mg/2 Ml Inj IV 10 mg BID JODI Administration Heparin Sodium (Porcine) 5,000 unit 07/11/21 10:00 07/13/21 22:20 Heparin 5,000 Unit/1 Ml Vial SUB-Q 5,000 unit Q12HR JODI Administration Hydrophilic Ointment 1 applic 07/12/21 20:55 Lip Therapy Vaseline TP Q2HR PRN Dry Lips Nicardipine HCl 50 mg/ Sodium 250 mls @ 25 mls/hr 07/11/21 22:00 07/12/21 22:30 Chloride IV 0 mg/hr TITR JODI 0 mls/hr Titration Protocol 5 MG/HR Amiodarone HCl 900 mg/ 500 mls @ 33.333 mls/hr 07/12/21 19:00 07/13/21 20:48 Dextrose IV 1 mg/min DIRECT JODI 33.333 mls/hr Administration Protocol 1 MG/MIN Propofol 1,000 mg in 100 mls @ 1.617 mls/hr 07/12/21 21:00 07/14/21 00:18 Diprivan 10 Mg/Ml IV 25 mcg/kg/min TITR JODI 8.085 mls/hr Administration Protocol 5 MCG/KG/MIN Lidocaine HCl/Dextrose 2,000 mg in 500 mls @ 15 mls/hr 07/12/21 23:56 07/13/21 21:00 Xylocaine/D5w 2gm/500ml Drip IV 0 mg/min DIRECT JODI 0 mls/hr Titration Protocol 1 MG/MIN Piperacillin Sod/Tazobactam Sod 2.25 gm in 50 mls @ 100 mls/hr 07/13/21 08:00 07/14/21 08:17 Zosyn/Ns 2.25 Gm/50ml IV 100 mls/hr Q8H JODI Administration Protocol Sodium Chloride 100 mls @ 999 mls/hr 07/13/21 12:00 Nacl 0.9% IV GLENDY PRN Hypotension Sodium Chloride 500 mls @ 50 mls/hr 07/14/21 10:00 Nacl 0.9% 500 Ml IV 07/14/21 19:59 DIRECT [facility] Insulin Human Lispro 0 unit 07/13/21 12:00 07/14/21 05:32 Insulin Lispro 100 Unit/Ml SUB-Q Not Given Q6HR [facility] Protocol Isosorbide Dinitrate 5 mg 07/14/21 14:00 Isosorbide Dinitrate 10 Mg Tab PO Q8HR [facility] Metoprolol Tartrate 25 mg 07/14/21 10:00 Metoprolol Tartrate 50 Mg Tab PO TID [facility] Multi-Ingred Cream/Lotion/Oil/Oint 1 applic 07/12/21 20:55 Mineral Oil/Petrolatum, White Ophth Oint 3.5 Gm OU Q4HR PRN Dry Eye(s) Ondansetron HCl 4 mg 07/11/21 00:53 Ondansetron 4 Mg/2 Ml Inj IV Q8H PRN Nausea And Vomiting Senna/Docusate Sodium 1 tab 07/12/21 22:00 07/14/21 09:00 Sennosides/Docusate Sodium 8.6/50 Mg Tab FEEDTUBE 1 tab BID JODI Administration Simple Syrup 15 ml 07/13/21 13:10 Simple Syrup 15 Ml FEEDTUBE PRN PRN Hypoglycemia Simple Syrup 30 ml 07/13/21 13:10 Simple Syrup 15 Ml FEEDTUBE PRN PRN Hypoglycemia Sodium Bicarbonate 325 mg 07/13/21 13:10 Sodium Bicarbonate 325 Mg Tab FEEDTUBE PRN PRN For Clogged Feeding Tube Sodium Chloride 10 ml 07/11/21 10:00 07/14/21 09:00 Sodium Chloride 0.9% 10 Ml Flush Syringe IV 10 ml BID JODI Administration Sodium Chloride 10 ml 07/11/21 00:53 Sodium Chloride 0.9% 10 Ml Flush Syringe IV PRN PRN LINE FLUSH Nutrition/Malnutrition Assess - Dietary Evaluation Nutrition/Malnutrition Findings: Nutrition Notes Start: 07/12/21 14:50 Freq: Status: Active Protocol: Document 07/13/21 12:51 CW (Rec: 07/13/21 13:10 CW [id number]) Nutrition Notes Initial or Follow up Reassessment Current Diagnosis CKD (stage V CKD),Diabetes, Hypertension Other Pertinent Diagnosis on HD, Vol. Overload Current Diet NPO Labs/Tests Na 135 BUN 29 Cr 4.2 BG 149 Phos 6.2 Pertinent Medications propofol at 0.259 (9 kcal) Height 5 ft 2 in Weight 51.9 kg [place] Body Weight (kg) 50.00 BMI 20.9 Weight Status Appropriate Subjective/Other Information MD consult for TF. Pt on mechancial vent at this time. Percent of energy/protein needs met: 0%/0% Burn Absent Trauma Absent GI Symptoms None Difficulty In Swallowing Food Allergy No Current % PO Negligible Minimum of two criteria No Fluid Accumulation Mild (non-severe) #2 Nutrition Diagnosis Inadequate oral intake,No nutrition diagnosis at this time Etiology respiratory failure As Evidenced by Signs and Symptoms pt on mechanical vent at this time and unable to consume via PO #1 Nutrition Diagnosis Food and nutrition-related knowledge deficit As Evidenced by Signs and Symptoms No diet education noted; Pt inappropriate at this time for diet education d/t mechancial vent Diagnosis Progress(for reassessment Continues documentation) Is patient on ventilator? Yes Is Patient Ambulatory and/or Out of Bed Yes REE-([facility]-ambulatory/OOB) [ 1354.925 [id number]] Calculation Used for Recommendations [facility] Additional Notes protein needs: 62 - 104 (1.2 - 2g/kgBW) Fluid needs: 1500 mL for HD or per MD order Nutrition Intervention Change Diet Order: Inititate TF when medically feasible Nutrition Support: Nepro at 35 ml/hr with a free water flush of 150 ml q4h Kcal 1,512 Protein (gm) 68 Fluid (mL) 611 Goal #1 Meet at least 75% of kcal and protein needs via TF Follow-Up By: 07/16/21 Additional Comments F/u for TF start and toelrance <ROUTVICTORINAARNOLD R - Last Filed: 07/14/21 20:01> History Interval history: Attendings note: Patient was seen and examined by me at 7:30 AM today. Discussed with cardiology, patient primary nurse and practitioner. Patient remains on ventilator, lightly sedated. FiO2 35%. Patient continues to maintain paced rhythm at normal rate. Lidocaine infusion discontinued last night. Currently remains on amiodarone infusion to be transitioned to oral later. Scheduled for left heart catheter tomorrow while on ventilator. Fever resolving. Blood cultures negative to date and tracheal aspirate was was rejected as a poor specimen. Lungs clear. Abdomen soft and nontender. Remains on tube feeds. Hospitalist Physical - Constitutional Vitals: Temp Pulse Resp BP Pulse Ox 98.8 F 70 10 L 159/68 100 07/14/21 17:12 07/14/21 19:15 07/14/21 19:15 07/14/21 19:15 07/14/21 19:15 HEART Score - HEART Score Troponin: Troponin T 0.037 ng/mL (0.00-0.029) H 07/11/21 Unknown Results - Labs CBC & Chem 7: 07/14/21 06:19 07/14/21 06:19 Labs: Laboratory Last Values WBC 6.9 K/mm3 (4.5-11.0) 07/14/21 06:19 RBC 3.83 M/mm3 (3.65-5.03) 07/14/21 06:19 Hgb 9.9 gm/dl (10.1-14.3) L 07/14/21 06:19 Hct 30.5 % (30.3-42.9) 07/14/21 06:19 MCV 80 fl (79-97) 07/14/21 06:19 MCH 26 pg (28-32) L 07/14/21 06:19 MCHC 32 % (30-34) 07/14/21 06:19 RDW 16.8 % (13.2-15.2) H 07/14/21 06:19 Plt Count 211 K/mm3 (140-440) 07/14/21 06:19 Lymph % (Auto) 19.8 % (13.4-35.0) 07/12/21 04:43 Bland % (Auto) 12.4 % (0.0-7.3) H 07/12/21 04:43 Eos % (Auto) 0.4 % (0.0-4.3) 07/12/21 04:43 Baso % (Auto) 2.2 % (0.0-1.8) H 07/12/21 04:43 Lymph # (Auto) 1.0 K/mm3 (1.2-5.4) L 07/12/21 04:43 Bland # (Auto) 0.6 K/mm3 (0.0-0.8) 07/12/21 04:43 Eos # (Auto) 0.0 K/mm3 (0.0-0.4) 07/12/21 04:43 Baso # (Auto) 0.1 K/mm3 (0.0-0.1) 07/12/21 04:43 Seg Neutrophils % 65.2 % (40.0-70.0) 07/12/21 04:43 Seg Neutrophils # 3.4 K/mm3 (1.8-7.7) 07/12/21 04:43 APTT 40.5 Sec. (24.2-36.6) H 07/10/21 21:38 ABG pH 7.531 (7.320-7.450) H 07/14/21 03:56 POC ABG pCO2 31.4 mmHg (32.0-48.0) L 07/14/21 03:56 ABG pCO2 45.6 mm Hg 07/11/21 11:38 POC ABG pO2 150.8 mmHg (83-108) H 07/14/21 03:56 ABG pO2 78.8 mm Hg (80.0-90.0) L 07/11/21 11:38 POC ABG HCO3 25.7 07/14/21 03:56 ABG HCO3 24.2 mmol/L (20.0-26.0) 07/11/21 11:38 ABG O2 Saturation 99.3 (0-100) 07/14/21 03:56 POC ABG Base Excess 3.3 07/14/21 03:56 ABG Base Excess -1.6 mmol/L (-2.0-3.0) 07/11/21 11:38 ABG Hemoglobin 10.6 (12.0-17.5) L 07/14/21 03:56 ABG Oxyhemoglobin 99.3 (94-98) H 07/14/21 03:56 ABG Carboxyhemoglobin 2.0 % (0.0-5.0) 07/11/21 11:38 ABG Methemoglobin 0 (0.0-1.5) 07/14/21 03:56 ABG Sodium 135.1 mmol/L (136.0-145.0) L 07/14/21 03:56 ABG Potassium 3.2 mmol/L (3.40-4.50) L 07/14/21 03:56 ABG Chloride 94.0 mmol/L (98-107) L 07/14/21 03:56 ABG Glucose 118 mg/dL (65-95) H 07/14/21 03:56 Oxyhemoglobin 92.5 % (95.0-99.0) L 07/11/21 11:38 Carboxyhemoglobin 0 (0.5-1.5) L 07/14/21 03:56 FiO2 100 % 07/11/21 11:38 FiO2 % 35 07/14/21 03:56 Sodium 133 mmol/L (137-145) L 07/14/21 06:19 Potassium 4.0 mmol/L (3.6-5.0) 07/14/21 06:19 Chloride 90.7 mmol/L (98-107) L 07/14/21 06:19 Carbon Dioxide 22 mmol/L (22-30) 07/14/21 06:19 Anion Gap 24 mmol/L 07/14/21 06:19 BUN 29 mg/dL (7-17) H 07/14/21 06:19 Creatinine 3.8 mg/dL (0.6-1.2) H 07/14/21 06:19 Estimated GFR 15 ml/min 07/14/21 06:19 BUN/Creatinine Ratio 8 % 07/14/21 06:19 Glucose 113 mg/dL (65-100) H 07/14/21 06:19 POC Glucose 106 mg/dL (70-105) H 07/14/21 17:33 Lactic Acid 3.00 mmol/L (0.7-2.0) H* 07/13/21 02:55 Calcium 10.5 mg/dL (8.4-10.2) H 07/14/21 06:19 Phosphorus 4.10 mg/dL (2.5-4.5) D 07/14/21 06:19 Magnesium 2.20 mg/dL (1.7-2.3) 07/14/21 06:19 Total Bilirubin 0.60 mg/dL (0.1-1.2) 07/12/21 04:43 AST 153 units/L (5-40) H 07/12/21 04:43 ALT 117 units/L (7-56) H 07/12/21 04:43 Alkaline Phosphatase 71 units/L (35-129) 07/12/21 04:43 Total Creatine Kinase 136 units/L (30-135) H 07/11/21 Unknown Troponin T 0.037 ng/mL (0.00-0.029) H 07/11/21 Unknown NT-Pro-B Natriuret Pep 52669 pg/mL (0-900) H 07/10/21 21:38 Total Protein 7.5 g/dL (6.3-8.2) 07/12/21 04:43 Albumin 4.0 g/dL (3.9-5) 07/12/21 04:43 Albumin/Globulin Ratio 1.1 % 07/12/21 04:43 Triglycerides 82 mg/dL (2-149) 07/10/21 21:38 Cholesterol 233 mg/dL (50-199) H 07/10/21 21:38 LDL Cholesterol Direct 157 mg/dL (50-130) H 07/10/21 21:38 HDL Cholesterol 52 mg/dL (40-59) 07/10/21 21:38 Cholesterol/HDL Ratio 4.48 % 07/10/21 21:38 Procalcitonin 5.04 ng/mL (<0.15) 07/12/21 14:18 TSH 3.000 mlU/mL (0.270-4.200) 07/13/21 07:52 Free T4 1.60 ng/dL (0.76-1.46) H 07/13/21 07:52 Thyroxine (T4) 10.9 ug/dL (4.0-12.0) 07/13/21 07:52 Arterial Blood Glucose 118 mg/dL (65-95) H 07/14/21 03:56 Arterial Blood Ionized Calcium 4.9 mg/dL (4.6-5.3) 07/14/21 03:56 Random Vancomycin 12.2 ug/mL (0-40.0) 07/13/21 07:52 Coronavirus (PCR) Negative (Negative) 07/12/21 Unknown Hepatitis A IgM Ab Non-reactive (NonReactive) 07/11/21 09:48 Hep Bs Antigen Nonreactive (Negative) 07/11/21 09:48 Hep B Core IgM Ab Non-reactive (NonReactive) 07/11/21 09:48 Hepatitis C Antibody Non-reactive (NonReactive) 07/11/21 09:48 Microbiology: Microbiology 07/12/21 14:18 Peripheral/Venous Blood Culture - Preliminary NO GROWTH AFTER 48 HOURS 07/12/21 14:18 Peripheral/Venous Blood Culture - Preliminary NO GROWTH AFTER 48 HOURS 07/12/21 22:52 Tracheal Aspirate Sputum Culture - Final 07/13/21 02:55 Peripheral/Venous Blood Culture - Preliminary NO GROWTH AFTER 24 HOURS 07/13/21 01:50 Peripheral/Venous Blood Culture - Preliminary NO GROWTH AFTER 24 HOURS 07/10/21 21:38 Peripheral/Venous Blood Culture - Preliminary NO GROWTH AFTER 72 HOURS 07/10/21 21:44 Peripheral/Venous Blood Culture - Preliminary NO GROWTH AFTER 72 HOURS Garza/IV: Voiding Method Diaper Active Medications - Current Medications Current Medications: Generic Name Dose Route Start Last Admin Trade Name Freq PRN Reason Stop Dose Admin Acetaminophen 650 mg 07/11/21 00:53 07/13/21 00:51 Acetaminophen 325 Mg Tab PO 650 mg Q4H PRN Administration Pain MILD(1-3)/Fever >100.5/COWART Acetaminophen 650 mg 07/12/21 03:40 07/12/21 03:52 Acetaminophen 650 Mg Rect Supp MO 650 mg Q4H PRN Administration Pain, Mild (1-3) Albuterol 2.5 mg 07/11/21 00:53 Albuterol 2.5 Mg/3 Ml Nebu IH Q4HRT PRN Shortness Of Breath Albuterol/Ipratropium 1 ampul 07/11/21 02:00 07/14/21 14:15 Ipratropium/Albuterol Sulfate 3 Ml Ampul.Neb IH 1 ampul Q6HRT JODI Administration Amiodarone HCl 200 mg 07/14/21 22:00 Amiodarone 200 Mg Tab PO BID JODI Lipase/Protease/Amylase 1 each 07/13/21 13:10 Lipase 10,500/Protease 25,000/Amylase 43,750 (Units) Dr Cap FEEDTUBE PRN PRN For Clogged Feeding Tube Atorvastatin Calcium 80 mg 07/12/21 22:00 07/13/21 22:20 Atorvastatin 40 Mg Tab PO 80 mg QHS JODI Administration Clopidogrel Bisulfate 75 mg 07/12/21 18:00 07/14/21 09:00 Clopidogrel 75 Mg Tab PO 75 mg QDAY JODI Administration Dextrose 50 ml 07/12/21 17:22 Dextrose 50% In Water (25gm) 50 Ml Syringe IV Q30MIN PRN Hypoglycemia Protocol Famotidine 10 mg 07/13/21 10:00 07/14/21 09:00 Famotidine 20 Mg/2 Ml Inj IV 10 mg BID JODI Administration Heparin Sodium (Porcine) 5,000 unit 07/11/21 10:00 07/14/21 10:25 Heparin 5,000 Unit/1 Ml Vial SUB-Q 5,000 unit Q12HR JODI Administration Hydrophilic Ointment 1 applic 07/12/21 20:55 Lip Therapy Vaseline TP Q2HR PRN Dry Lips Nicardipine HCl 50 mg/ Sodium 250 mls @ 25 mls/hr 07/11/21 22:00 07/12/21 22:30 Chloride IV 0 mg/hr TITR JODI 0 mls/hr Titration Protocol 5 MG/HR Amiodarone HCl 900 mg/ 500 mls @ 33.333 mls/hr 07/12/21 19:00 07/14/21 19:49 Dextrose IV 07/14/21 20:00 Infused DIRECT JODI Infusion Protocol 1 MG/MIN Propofol 1,000 mg in 100 mls @ 1.617 mls/hr 07/12/21 21:00 07/14/21 19:49 Diprivan 10 Mg/Ml IV Infused TITR JODI Titration Protocol 5 MCG/KG/MIN Lidocaine HCl/Dextrose 2,000 mg in 500 mls @ 15 mls/hr 07/12/21 23:56 07/13/21 21:00 Xylocaine/D5w 2gm/500ml Drip IV 0 mg/min DIRECT JODI 0 mls/hr Titration Protocol 1 MG/MIN Piperacillin Sod/Tazobactam Sod 2.25 gm in 50 mls @ 100 mls/hr 07/13/21 08:00 07/14/21 16:33 Zosyn/Ns 2.25 Gm/50ml IV 100 mls/hr Q8H JODI Administration Protocol Sodium Chloride 100 mls @ 999 mls/hr 07/13/21 12:00 Nacl 0.9% IV GLENDY PRN Hypotension Sodium Chloride 500 mls @ 50 mls/hr 07/14/21 10:00 07/14/21 10:30 Nacl 0.9% 500 Ml IV 07/14/21 19:59 50 mls/hr DIRECT JODI Administration Insulin Human Lispro 0 unit 07/13/21 12:00 07/14/21 17:58 Insulin Lispro 100 Unit/Ml SUB-Q Not Given Q6HR JODI Protocol Isosorbide Dinitrate 5 mg 07/14/21 14:00 07/14/21 13:46 Isosorbide Dinitrate 10 Mg Tab PO 5 mg Q8HR JODI Administration Metoprolol Tartrate 25 mg 07/14/21 10:00 07/14/21 13:46 Metoprolol Tartrate 50 Mg Tab PO 25 mg TID JODI Administration Multi-Ingred Cream/Lotion/Oil/Oint 1 applic 07/12/21 20:55 Mineral Oil/Petrolatum, White Ophth Oint 3.5 Gm OU Q4HR PRN Dry Eye(s) Ondansetron HCl 4 mg 07/11/21 00:53 Ondansetron 4 Mg/2 Ml Inj IV Q8H PRN Nausea And Vomiting Senna/Docusate Sodium 1 tab 07/12/21 22:00 07/14/21 09:00 Sennosides/Docusate Sodium 8.6/50 Mg Tab FEEDTUBE 1 tab BID JODI Administration Simple Syrup 15 ml 07/13/21 13:10 Simple Syrup 15 Ml FEEDTUBE PRN PRN Hypoglycemia Simple Syrup 30 ml 07/13/21 13:10 Simple Syrup 15 Ml FEEDTUBE PRN PRN Hypoglycemia Sodium Bicarbonate 325 mg 07/13/21 13:10 Sodium Bicarbonate 325 Mg Tab FEEDTUBE PRN PRN For Clogged Feeding Tube Sodium Chloride 10 ml 07/11/21 10:00 07/14/21 09:00 Sodium Chloride 0.9% 10 Ml Flush Syringe IV 10 ml BID JODI Administration Sodium Chloride 10 ml 07/11/21 00:53 Sodium Chloride 0.9% 10 Ml Flush Syringe IV PRN PRN LINE FLUSH Nutrition/Malnutrition Assess - Dietary Evaluation Nutrition/Malnutrition Findings: Nutrition Notes Start: 07/12/21 14:50 Freq: Status: Active Protocol: Document 07/13/21 12:51 CW (Rec: 07/13/21 13:10 CW [id number]) Nutrition Notes Initial or Follow up Reassessment Current Diagnosis CKD (stage V CKD),Diabetes, Hypertension Other Pertinent Diagnosis on HD, Vol. Overload Current Diet NPO Labs/Tests Na 135 BUN 29 Cr 4.2 BG 149 Phos 6.2 Pertinent Medications propofol at 0.259 (9 kcal) Height 5 ft 2 in Weight 51.9 kg [place] Body Weight (kg) 50.00 BMI 20.9 Weight Status Appropriate Subjective/Other Information MD consult for TF. Pt on mechancial vent at this time. Percent of energy/protein needs met: 0%/0% Burn Absent Trauma Absent GI Symptoms None Difficulty In Swallowing Food Allergy No Current % PO Negligible Minimum of two criteria No Fluid Accumulation Mild (non-severe) #2 Nutrition Diagnosis Inadequate oral intake,No nutrition diagnosis at this time Etiology respiratory failure As Evidenced by Signs and Symptoms pt on mechanical vent at this time and unable to consume via PO #1 Nutrition Diagnosis Food and nutrition-related knowledge deficit As Evidenced by Signs and Symptoms No diet education noted; Pt inappropriate at this time for diet education d/t mechancial vent Diagnosis Progress(for reassessment Continues documentation) Is patient on ventilator? Yes Is Patient Ambulatory and/or Out of Bed Yes REE-([facility]-ambulatory/OOB) [ 1354.925 NUTR.[id number]] Calculation Used for Recommendations [facility] Additional Notes protein needs: 62 - 104 (1.2 - 2g/kgBW) Fluid needs: 1500 mL for HD or per MD order Nutrition Intervention Change Diet Order: Inititate TF when medically feasible Nutrition Support: Nepro at 35 ml/hr with a free water flush of 150 ml q4h Kcal 1,512 Protein (gm) 68 Fluid (mL) 611 Goal #1 Meet at least 75% of kcal and protein needs via TF Follow-Up By: 07/16/21 Additional Comments F/u for TF start and toelrance
[2021-07-14] MEDS: HEPARIN 5,000 UNIT/1 ML VIAL SUB-Q SCH ×2 (10:25→21:28)
--- NOTE | 2021-07-14 11:38 | Progress Note ---
Assessment and Plan 60-year-old female end-stage renal disease on hemodialysis with an AICD history of prolonged QT syndrome presents to the hospital with shortness of breath hypoxemia went into sustained ventricular tachycardia with multiple AICD shocks despite IV medication with amiodarone patient was intubated for ventricle tach cardia storm. Patient is maintained paced rhythm after intubation and sedation. Patient has no further ventricle tachycardia lidocaine has been weaned off. Will wean off amiodarone this evening start oral amiodarone 200 mg twice a day. Cardiac catheterization a.m. After heart catheterization will do extubation. Discussed with patient's daughter who states had a PCI after defibrillator placement. Will contact patient's primary tester armature or fields at [facility] in the morning. Discussed with patient's daughter in detail about the cardiac plan and obtain consent from the daughter for cardiac catheterization - Patient Problems (1) Respiratory failure Current Visit: Yes Status: Acute Qualifiers: Chronicity: acute Respiratory failure complication: hypoxia Qualified Code(s): J96.01 - Acute respiratory failure with hypoxia (2) Prolonged QT syndrome Current Visit: Yes Status: Chronic (3) AICD (automatic cardioverter/defibrillator) present Current Visit: Yes Status: Chronic (4) CVA (cerebral vascular accident) Current Visit: Yes Status: Chronic (5) End stage renal disease on dialysis Current Visit: Yes Status: Chronic (6) Hypertension Current Visit: Yes Status: Chronic Qualifiers: Hypertension type: primary hypertension Qualified Code(s): I10 - Essential (primary) hypertension (7) Sustained ventricular tachycardia Current Visit: Yes Status: Acute Subjective Date of service: 07/14/21 Principal diagnosis: ESRD Interval history: on vent sedated Objective Vital Signs Temp Pulse Pulse Pulse Resp Resp BP 07/14/21 11:15 70 16 96/56 07/14/21 11:00 70 16 114/64 07/14/21 10:45 70 16 111/57 07/14/21 10:30 70 16 124/63 07/14/21 10:15 70 12 145/71 07/14/21 10:00 70 13 136/73 07/14/21 09:45 70 16 130/72 07/14/21 09:30 70 14 127/69 07/14/21 09:15 70 16 123/69 07/14/21 09:00 70 16 118/70 12/05/21 08:56 70 108/69 07/14/21 08:45 70 14 108/69 07/14/21 08:30 70 14 94/63 07/14/21 08:15 70 14 80/49 07/14/21 08:00 70 70 13 109/68 07/14/21 07:45 70 16 119/65 07/14/21 07:44 70 16 07/14/21 07:39 70 106/60 07/14/21 07:30 70 16 106/60 07/14/21 07:15 70 16 102/57 07/14/21 07:00 70 16 92/52 07/14/21 06:45 70 16 89/53 07/14/21 06:30 70 14 112/66 07/14/21 06:15 70 13 103/59 07/14/21 06:00 70 12 86/57 07/14/21 05:45 70 14 95/52 07/14/21 05:31 70 15 133/67 07/14/21 05:30 70 133/67 07/14/21 05:15 70 15 134/68 07/14/21 05:00 70 18 142/71 07/14/21 04:45 70 15 134/75 07/14/21 04:30 70 13 141/64 07/14/21 04:15 70 17 144/72 07/14/21 04:00 70 70 15 149/71 07/14/21 03:45 70 14 137/71 07/14/21 03:30 70 16 104/63 07/14/21 03:26 96.4 F L 07/14/21 03:15 70 16 102/58 07/14/21 03:00 70 16 89/51 07/14/21 02:45 70 16 85/52 21 02:39 72 16 0521 02:30 70 10 L 110/63 05 02:15 70 16 100/55 05 02:00 70 15 150/76 05 01:45 70 16 154/71 05 01:31 70 15 149/94 05 01:15 70 16 135/64 05 01:00 70 16 129/62 0521 00:45 70 16 123/60 05 00:30 70 16 118/57 07/14/21 00:15 70 16 142/68 07/14/21 00:01 70 15 149/68 07/14/21 00:00 70 70 20 07/13/21 23:59 70 126/78 07/13/21 23:45 70 14 126/78 07/13/21 23:30 70 15 124/70 07/13/21 23:15 70 15 125/64 07/13/21 23:14 98.1 F 07/13/21 23:00 70 14 132/68 07/13/21 22:45 70 17 141/66 07/13/21 22:31 70 16 168/60 07/13/21 22:21 70 164/64 07/13/21 22:20 70 164/64 07/13/21 22:15 70 14 164/64 07/13/21 22:00 70 12 158/57 07/13/21 21:45 70 17 156/70 07/13/21 21:30 70 16 148/69 07/13/21 21:15 70 16 159/65 07/13/21 21:02 70 16 175/84 07/13/21 21:00 98.2 F 70 18 147/73 07/13/21 20:52 70 15 175/84 07/13/21 20:48 70 175/84 07/13/21 20:45 70 17 175/84 07/13/21 20:42 70 17 147/73 07/13/21 20:30 80 19 76/48 07/13/21 20:24 98.4 F 70 16 92/61 07/13/21 20:15 72 10 L 143/70 07/13/21 20:01 70 16 143/68 07/13/21 20:00 70 70 20 143/68 07/13/21 19:45 70 13 137/62 07/13/21 19:30 70 18 150/70 07/13/21 19:29 72 18 07/13/21 19:27 70 152/69 07/13/21 19:15 72 12 152/69 07/13/21 19:00 70 11 L 167/50 07/13/21 18:45 70 14 162/55 07/13/21 18:30 70 170/69 07/13/21 18:15 70 169/70 07/13/21 18:00 70 166/81 07/13/21 17:51 70 07/13/21 17:45 70 173/82 07/13/21 17:30 70 162/80 07/13/21 17:15 98.6 F 89 18 164/75 07/13/21 17:00 70 16 164/75 07/13/21 16:45 70 16 166/81 07/13/21 16:30 70 15 167/81 07/13/21 16:15 70 17 155/77 07/13/21 16:00 98.8 F 70 70 17 143/75 07/13/21 15:45 70 16 134/71 07/13/21 15:30 70 16 144/73 07/13/21 15:15 76 15 135/75 07/13/21 15:00 70 16 152/69 07/13/21 14:45 70 16 113/64 07/13/21 14:30 70 16 108/64 07/13/21 14:15 70 16 122/68 07/13/21 14:00 70 16 140/73 07/13/21 13:45 70 16 142/70 07/13/21 13:44 70 142/70 07/13/21 13:41 70 142/70 07/13/21 13:30 70 16 133/67 07/13/21 13:15 70 16 129/64 07/13/21 13:00 70 16 134/68 07/13/21 12:45 70 16 137/69 07/13/21 12:30 70 16 143/69 07/13/21 12:24 70 07/13/21 12:15 70 18 154/72 07/13/21 12:00 100.1 F H 70 70 17 151/72 07/13/21 11:45 70 18 153/69 Pulse Ox Pulse Ox 07/14/21 11:15 99 07/14/21 11:00 100 07/14/21 10:45 99 07/14/21 10:30 100 07/14/21 10:15 100 07/14/21 10:00 100 07/14/21 09:45 100 07/14/21 09:30 100 07/14/21 09:15 100 07/14/21 09:00 100 07/14/21 08:56 07/14/21 08:45 100 07/14/21 08:30 100 07/14/21 08:15 100 07/14/21 08:00 100 07/14/21 07:45 100 07/14/21 07:44 07/14/21 07:39 100 07/14/21 07:30 99 07/14/21 07:15 99 07/14/21 07:00 99 07/14/21 06:45 99 07/14/21 06:30 99 07/14/21 06:15 07/14/21 06:00 99 07/14/21 05:45 99 07/14/21 05:31 99 07/14/21 05:30 07/14/21 05:15 100 07/14/21 05:00 100 07/14/21 04:45 100 07/14/21 04:30 100 07/14/21 04:15 100 07/14/21 04:00 99 07/14/21 03:45 100 07/14/21 03:30 100 07/14/21 03:26 07/14/21 03:15 100 07/14/21 03:00 100 07/14/21 02:45 99 07/14/21 02:39 07/14/21 02:30 99 07/14/21 02:15 100 07/14/21 02:00 100 07/14/21 01:45 99 07/14/21 01:31 100 07/14/21 01:15 100 07/14/21 01:00 100 07/14/21 00:45 99 07/14/21 00:30 99 07/14/21 00:15 99 07/14/21 00:01 100 07/14/21 00:00 100 07/13/21 23:59 100 07/13/21 23:45 99 07/13/21 23:30 99 07/13/21 23:15 99 07/13/21 23:14 07/13/21 23:00 100 07/13/21 22:45 100 07/13/21 22:31 100 07/13/21 22:21 07/13/21 22:20 07/13/21 22:15 100 07/13/21 22:00 100 07/13/21 21:45 100 07/13/21 21:30 100 07/13/21 21:15 100 07/13/21 21:02 99 07/13/21 21:00 98 100 07/13/21 20:52 96 07/13/21 20:48 07/13/21 20:45 100 07/13/21 20:42 100 07/13/21 20:30 99 07/13/21 20:24 100 07/13/21 20:15 48 L 07/13/21 20:01 90 07/13/21 20:00 100 07/13/21 19:45 100 07/13/21 19:30 88 07/13/21 19:29 07/13/21 19:27 100 07/13/21 19:15 92 07/13/21 19:00 100 07/13/21 18:45 100 07/13/21 18:30 07/13/21 18:15 07/13/21 18:00 07/13/21 17:51 07/13/21 17:45 07/13/21 17:30 07/13/21 17:15 100 07/13/21 17:00 100 07/13/21 16:45 100 07/13/21 16:30 100 07/13/21 16:15 100 07/13/21 16:00 100 07/13/21 15:45 100 07/13/21 15:30 100 07/13/21 15:15 100 07/13/21 15:00 99 07/13/21 14:45 100 07/13/21 14:30 99 07/13/21 14:15 99 07/13/21 14:00 98 07/13/21 13:45 100 07/13/21 13:44 07/13/21 13:41 07/13/21 13:30 100 07/13/21 13:15 100 07/13/21 13:00 100 07/13/21 12:45 100 07/13/21 12:30 100 07/13/21 12:24 100 07/13/21 12:15 100 07/13/21 12:00 99 07/13/21 11:45 100 - Physical Examination General: Other HEENT: Positive: PERRL, Other Neck: Positive: neck supple Cardiac: Positive: Reg Rate and Rhythm Lungs: Positive: clear to auscultation Neuro: Positive: Other Abdomen: Positive: Unremarkable, Soft Skin: Positive: Clear Musculoskeletal: other Extremities: Absent: edema - Labs and Meds CBC 07/14/21 Range/Units 06:19 WBC 6.9 (4.5-11.0) K/mm3 RBC 3.83 (3.65-5.03) M/mm3 Hgb 9.9 L (10.1-14.3) gm/dl Hct 30.5 (30.3-42.9) % Plt Count 211 (140-440) K/mm3 Comprehensive Metabolic Panel 07/14/21 Range/Units 06:19 Sodium 133 L (137-145) mmol/L Potassium 4.0 (3.6-5.0) mmol/L Chloride 90.7 L (98-107) mmol/L Carbon Dioxide 22 (22-30) mmol/L BUN 29 H (7-17) mg/dL Creatinine 3.8 H (0.6-1.2) mg/dL Glucose 113 H (65-100) mg/dL Calcium 10.5 H (8.4-10.2) mg/dL - Imaging and Cardiology EKG: report reviewed Echo: report reviewed (normal lv funciton mild to moderate lvh moderate pulmonary htn) - Telemetry EKG Rhythm: Sinus Rhythm (paced no vtach for 36 hours)
--- NOTE | 2021-07-14 14:45 | Progress Note ---
Assessment and Plan (1) End stage renal disease on dialysis (2) Volume overload (3) Diabetes (4) CVA (cerebral vascular accident) (5) Hypertension s/p HD yesterday, no HD today, HD tomorrow. will assess HD needs daily renally dose meds strict I&O daily weight Subjective Date of service: 07/14/21 Principal diagnosis: ESRD Interval history: Intubated on Vent. in ICU. s/p HD yesterday. Objective - Exam Narrative Exam: - Physical Examination General: Intubated HEENT: Positive: PERRL, Other Neck: Positive: neck supple Cardiac: Positive: Reg Rate and Rhythm Lungs: Positive: coarse BS BL Neuro: Positive: Sedated Abdomen: Positive: Unremarkable, Soft Skin: Positive: Clear Musculoskeletal: other Extremities: Absent: edema - Vital Signs Vital signs: Vital Signs - 12hr 07/14/21 07/14/21 07/14/21 02:45 03:00 03:15 Temperature Pulse Rate 70 70 70 Pulse Rate [ Anterior Bilateral Throughout] Pulse Rate [ From Monitor] Respiratory 16 16 16 Rate Respiratory Rate [Anterior Bilateral Throughout] Blood Pressure 85/52 89/51 102/58 O2 Sat by Pulse 99 100 100 Oximetry 07/14/21 07/14/21 07/14/21 03:26 03:30 03:45 Temperature 96.4 F L Pulse Rate 70 70 Pulse Rate [ Anterior Bilateral Throughout] Pulse Rate [ From Monitor] Respiratory 16 14 Rate Respiratory Rate [Anterior Bilateral Throughout] Blood Pressure 104/63 137/71 O2 Sat by Pulse 100 100 Oximetry 07/14/21 07/14/21 07/14/21 04:00 04:15 04:30 Temperature Pulse Rate 70 70 70 Pulse Rate [ Anterior Bilateral Throughout] Pulse Rate [ 70 From Monitor] Respiratory 15 17 13 Rate Respiratory Rate [Anterior Bilateral Throughout] Blood Pressure 149/71 144/72 141/64 O2 Sat by Pulse 99 100 100 Oximetry 07/14/21 07/14/21 07/14/21 04:45 05:00 05:15 Temperature Pulse Rate 70 70 70 Pulse Rate [ Anterior Bilateral Throughout] Pulse Rate [ From Monitor] Respiratory 15 18 15 Rate Respiratory Rate [Anterior Bilateral Throughout] Blood Pressure 134/75 142/71 134/68 O2 Sat by Pulse 100 100 100 Oximetry 07/14/21 07/14/21 07/14/21 05:30 05:31 05:45 Temperature Pulse Rate 70 70 70 Pulse Rate [ Anterior Bilateral Throughout] Pulse Rate [ From Monitor] Respiratory 15 14 Rate Respiratory Rate [Anterior Bilateral Throughout] Blood Pressure 133/67 133/67 95/52 O2 Sat by Pulse 99 99 Oximetry 07/14/21 07/14/21 07/14/21 06:00 06:15 06:30 Temperature Pulse Rate 70 70 70 Pulse Rate [ Anterior Bilateral Throughout] Pulse Rate [ From Monitor] Respiratory 12 13 14 Rate Respiratory Rate [Anterior Bilateral Throughout] Blood Pressure 86/57 103/59 112/66 O2 Sat by Pulse 99 99 Oximetry 07/14/21 07/14/21 07/14/21 06:45 07:00 07:15 Temperature Pulse Rate 70 70 70 Pulse Rate [ Anterior Bilateral Throughout] Pulse Rate [ From Monitor] Respiratory 16 16 16 Rate Respiratory Rate [Anterior Bilateral Throughout] Blood Pressure 89/53 92/52 102/57 O2 Sat by Pulse 99 99 99 Oximetry 07/14/21 07/14/21 07/14/21 07:30 07:39 07:44 Temperature Pulse Rate 70 70 Pulse Rate [ 70 Anterior Bilateral Throughout] Pulse Rate [ From Monitor] Respiratory 16 Rate Respiratory 16 Rate [Anterior Bilateral Throughout] Blood Pressure 106/60 106/60 O2 Sat by Pulse 99 100 Oximetry 07/14/21 07/14/21 07/14/21 07:45 08:00 08:15 Temperature 98.8 F Pulse Rate 70 70 70 Pulse Rate [ Anterior Bilateral Throughout] Pulse Rate [ 70 From Monitor] Respiratory 16 13 14 Rate Respiratory Rate [Anterior Bilateral Throughout] Blood Pressure 119/65 109/68 80/49 O2 Sat by Pulse 100 100 100 Oximetry 07/14/21 07/14/21 07/14/21 08:30 08:45 08:56 Temperature Pulse Rate 70 70 70 Pulse Rate [ Anterior Bilateral Throughout] Pulse Rate [ From Monitor] Respiratory 14 14 Rate Respiratory Rate [Anterior Bilateral Throughout] Blood Pressure 94/63 108/69 108/69 O2 Sat by Pulse 100 100 Oximetry 07/14/21 07/14/21 07/14/21 09:00 09:15 09:30 Temperature Pulse Rate 70 70 70 Pulse Rate [ Anterior Bilateral Throughout] Pulse Rate [ From Monitor] Respiratory 16 16 14 Rate Respiratory Rate [Anterior Bilateral Throughout] Blood Pressure 118/70 123/69 127/69 O2 Sat by Pulse 100 100 100 Oximetry 07/14/21 07/14/21 07/14/21 09:45 10:00 10:15 Temperature Pulse Rate 70 70 70 Pulse Rate [ Anterior Bilateral Throughout] Pulse Rate [ From Monitor] Respiratory 16 13 12 Rate Respiratory Rate [Anterior Bilateral Throughout] Blood Pressure 130/72 136/73 145/71 O2 Sat by Pulse 100 100 100 Oximetry 07/14/21 07/14/21 07/14/21 10:30 10:45 11:00 Temperature Pulse Rate 70 70 70 Pulse Rate [ Anterior Bilateral Throughout] Pulse Rate [ From Monitor] Respiratory 16 16 16 Rate Respiratory Rate [Anterior Bilateral Throughout] Blood Pressure 124/63 111/57 114/64 O2 Sat by Pulse 100 99 100 Oximetry 07/14/21 07/14/21 07/14/21 11:15 11:30 11:45 Temperature Pulse Rate 70 70 70 Pulse Rate [ Anterior Bilateral Throughout] Pulse Rate [ From Monitor] Respiratory 16 16 16 Rate Respiratory Rate [Anterior Bilateral Throughout] Blood Pressure 96/56 92/55 104/65 O2 Sat by Pulse 99 99 100 Oximetry 07/14/21 07/14/21 07/14/21 12:00 12:15 12:20 Temperature 99.2 F Pulse Rate 70 70 70 Pulse Rate [ Anterior Bilateral Throughout] Pulse Rate [ 70 From Monitor] Respiratory 16 13 Rate Respiratory Rate [Anterior Bilateral Throughout] Blood Pressure 115/69 120/70 120/70 O2 Sat by Pulse 100 100 100 Oximetry 07/14/21 07/14/21 07/14/21 12:30 12:45 13:00 Temperature Pulse Rate 70 70 70 Pulse Rate [ Anterior Bilateral Throughout] Pulse Rate [ From Monitor] Respiratory 16 15 11 L Rate Respiratory Rate [Anterior Bilateral Throughout] Blood Pressure 115/67 126/69 132/73 O2 Sat by Pulse 100 100 100 Oximetry 07/14/21 07/14/21 07/14/21 13:15 13:31 13:45 Temperature Pulse Rate 70 70 70 Pulse Rate [ Anterior Bilateral Throughout] Pulse Rate [ From Monitor] Respiratory 16 16 16 Rate Respiratory Rate [Anterior Bilateral Throughout] Blood Pressure 125/69 111/60 105/65 O2 Sat by Pulse 100 99 100 Oximetry 07/14/21 07/14/21 07/14/21 13:46 14:00 14:15 Temperature Pulse Rate 70 70 70 Pulse Rate [ Anterior Bilateral Throughout] Pulse Rate [ From Monitor] Respiratory 16 16 Rate Respiratory Rate [Anterior Bilateral Throughout] Blood Pressure 105/65 111/63 104/61 O2 Sat by Pulse 100 99 Oximetry 07/14/21 14:16 Temperature Pulse Rate Pulse Rate [ 70 Anterior Bilateral Throughout] Pulse Rate [ From Monitor] Respiratory Rate Respiratory 16 Rate [Anterior Bilateral Throughout] Blood Pressure O2 Sat by Pulse Oximetry - Lab 07/14/21 06:19 07/14/21 06:19 Most recent lab results ABG pH 7.531 (7.320-7.450) H 07/14/21 03:56 ABG pCO2 45.6 mm Hg 07/11/21 11:38 ABG pO2 78.8 mm Hg (80.0-90.0) L 07/11/21 11:38 ABG HCO3 24.2 mmol/L (20.0-26.0) 07/11/21 11:38 ABG O2 Saturation 99.3 (0-100) 07/14/21 03:56 Calcium 10.5 mg/dL (8.4-10.2) H 07/14/21 06:19 Phosphorus 4.10 mg/dL (2.5-4.5) D 07/14/21 06:19 Magnesium 2.20 mg/dL (1.7-2.3) 07/14/21 06:19 Medications & Allergies - Medications Allergies/Adverse Reactions: Allergies No Known Allergies Allergy (Unverified 07/10/21 20:57) Home Medications: Home Medications Medication Instructions Recorded Confirmed Last Taken Type Atorvastatin [Lipitor Tab] 80 mg PO DAILY 07/12/21 07/12/21 Unknown History Clopidogrel [Plavix] 75 mg PO QDAY 07/12/21 07/12/21 Unknown History Gabapentin [Neurontin] 600 mg PO Q8H 07/12/21 07/12/21 Unknown History Icosapent Ethyl [Vascepa] 2 gm PO BID 07/12/21 07/12/21 Unknown History Isosorbide Mononitrate [Isosorbide 30 mg PO DAILY 07/12/21 07/12/21 Unknown History Mononitrate ER] Losartan [Cozaar] 25 mg PO BID 07/12/21 07/12/21 Unknown History NIFEdipine [Nifedipine ER] 90 mg PO BID 07/12/21 07/12/21 Unknown History Spironolactone [Aldactone] 50 mg PO HS 07/12/21 07/12/21 Unknown History Velphoro (Nf) 2 gm PO TID 07/12/21 07/12/21 Unknown History hydrALAZINE [Apresoline TAB] 25 mg PO BID 07/12/21 07/12/21 Unknown History labetaloL [Labetalol 200mg TAB] 600 mg PO BID 07/12/21 07/12/21 Unknown History traZODone [Desyrel] 50 mg PO HS 07/12/21 07/12/21 Unknown History Active Medications: Generic Name Dose Route Start Last Admin Trade Name Freq PRN Reason Stop Dose Admin Acetaminophen 650 mg 07/11/21 00:53 07/13/21 00:51 Acetaminophen 325 Mg Tab PO 650 mg Q4H PRN Administration Pain MILD(1-3)/Fever >100.5/COWART Acetaminophen 650 mg 07/12/21 03:40 07/12/21 03:52 Acetaminophen 650 Mg Rect Supp MN 650 mg Q4H PRN Administration Pain, Mild (1-3) Albuterol 2.5 mg 07/11/21 00:53 Albuterol 2.5 Mg/3 Ml Nebu IH Q4HRT PRN Shortness Of Breath Albuterol/Ipratropium 1 ampul 07/11/21 02:00 07/14/21 14:15 Ipratropium/Albuterol Sulfate 3 Ml Ampul.Neb IH 1 ampul Q6HRT JODI Administration Amiodarone HCl 200 mg 07/14/21 22:00 Amiodarone 200 Mg Tab PO BID JODI Lipase/Protease/Amylase 1 each 07/13/21 13:10 Lipase 10,500/Protease 25,000/Amylase 43,750 (Units) Dr William LOPEZ PRN PRN For Clogged Feeding Tube Atorvastatin Calcium 80 mg 07/12/21 22:00 07/13/21 22:20 Atorvastatin 40 Mg Tab PO 80 mg QHS JODI Administration Clopidogrel Bisulfate 75 mg 07/12/21 18:00 07/14/21 09:00 Clopidogrel 75 Mg Tab PO 75 mg QDAY JODI Administration Dextrose 50 ml 07/12/21 17:22 Dextrose 50% In Water (25gm) 50 Ml Syringe IV Q30MIN PRN Hypoglycemia Protocol Famotidine 10 mg 07/13/21 10:00 07/14/21 09:00 Famotidine 20 Mg/2 Ml Inj IV 10 mg BID JODI Administration Heparin Sodium (Porcine) 5,000 unit 07/11/21 10:00 07/14/21 10:25 Heparin 5,000 Unit/1 Ml Vial SUB-Q 5,000 unit Q12HR JODI Administration Hydrophilic Ointment 1 applic 07/12/21 20:55 Lip Therapy Vaseline TP Q2HR PRN Dry Lips Nicardipine HCl 50 mg/ Sodium 250 mls @ 25 mls/hr 07/11/21 22:00 07/12/21 22:30 Chloride IV 0 mg/hr TITR JODI 0 mls/hr Titration Protocol 5 MG/HR Amiodarone HCl 900 mg/ 500 mls @ 33.333 mls/hr 07/12/21 19:00 07/14/21 10:27 Dextrose IV 07/14/21 20:00 0.5 mg/min DIRECT JODI 16.667 mls/hr Infusion Protocol 1 MG/MIN Propofol 1,000 mg in 100 mls @ 1.617 mls/hr 07/12/21 21:00 07/14/21 10:26 Diprivan 10 Mg/Ml IV 30 mcg/kg/min TITR JODI 9.702 mls/hr Titration Protocol 5 MCG/KG/MIN Lidocaine HCl/Dextrose 2,000 mg in 500 mls @ 15 mls/hr 07/12/21 23:56 07/13/21 21:00 Xylocaine/D5w 2gm/500ml Drip IV 0 mg/min DIRECT JODI 0 mls/hr Titration Protocol 1 MG/MIN Piperacillin Sod/Tazobactam Sod 2.25 gm in 50 mls @ 100 mls/hr 07/13/21 08:00 07/14/21 08:17 Zosyn/Ns 2.25 Gm/50ml IV 100 mls/hr Q8H JODI Administration Protocol Sodium Chloride 100 mls @ 999 mls/hr 07/13/21 12:00 Nacl 0.9% IV GLENDY PRN Hypotension Sodium Chloride 500 mls @ 50 mls/hr 07/14/21 10:00 07/14/21 10:30 Nacl 0.9% 500 Ml IV 07/14/21 19:59 50 mls/hr DIRECT JODI Administration Insulin Human Lispro 0 unit 07/13/21 12:00 07/14/21 12:38 Insulin Lispro 100 Unit/Ml SUB-Q Not Given Q6HR [facility] Protocol Isosorbide Dinitrate 5 mg 07/14/21 14:00 07/14/21 13:46 Isosorbide Dinitrate 10 Mg Tab PO 5 mg Q8HR JODI Administration Metoprolol Tartrate 25 mg 07/14/21 10:00 07/14/21 13:46 Metoprolol Tartrate 50 Mg Tab PO 25 mg TID JODI Administration Multi-Ingred Cream/Lotion/Oil/Oint 1 applic 07/12/21 20:55 Mineral Oil/Petrolatum, White Ophth Oint 3.5 Gm OU Q4HR PRN Dry Eye(s) Ondansetron HCl 4 mg 07/11/21 00:53 Ondansetron 4 Mg/2 Ml Inj IV Q8H PRN Nausea And Vomiting Senna/Docusate Sodium 1 tab 07/12/21 22:00 07/14/21 09:00 Sennosides/Docusate Sodium 8.6/50 Mg Tab FEEDTUBE 1 tab BID JODI Administration Simple Syrup 15 ml 07/13/21 13:10 Simple Syrup 15 Ml FEEDTUBE PRN PRN Hypoglycemia Simple Syrup 30 ml 07/13/21 13:10 Simple Syrup 15 Ml FEEDTUBE PRN PRN Hypoglycemia Sodium Bicarbonate 325 mg 07/13/21 13:10 Sodium Bicarbonate 325 Mg Tab FEEDTUBE PRN PRN For Clogged Feeding Tube Sodium Chloride 10 ml 07/11/21 10:00 07/14/21 09:00 Sodium Chloride 0.9% 10 Ml Flush Syringe IV 10 ml BID JODI Administration Sodium Chloride 10 ml 07/11/21 00:53 Sodium Chloride 0.9% 10 Ml Flush Syringe IV PRN PRN LINE FLUSH
[2021-07-14] MEDS: AMIODARONE 200 MG TAB PO SCH (21:24)
--- NOTE | 2021-07-14 23:28 | Event Note ---
Date: 07/14/21 Patient developed V. tach subsequently lost pulse at 2320. CPR was given as per ACLS protocol then shock was given by AICD at 2322 .patient regained ROSC. Patient is put on amiodarone drip patient is going to the [employer] [facility] in the morning. We will monitor the patient closely
[2021-07-14] MEDS ORDERED: AMIODARONE 150 MG in DEXTROSE 5% IN WATER 97 ML IV ONE (23:36)
[2021-07-14] MEDS ORDERED: MAGNESIUM SULFATE 2 GM/50 ML BAG IV ONE (23:36)
[2021-07-14] MEDS ORDERED: AMIODARONE 900 MG in DEXTROSE 5% IN WATER 482 ML IV SCH (23:45)
[2021-07-15] MEDS ORDERED: hydrALAZINE 20 MG/1 ML INJ IV PRN (00:51)
[2021-07-15] MEDS: INSULIN LISPRO 100 UNIT/ML SUB-Q SCH ×3 (01:23→18:01)
[2021-07-15] MEDS: FREE WATER PO SCH ×5 (01:23→21:15)
[2021-07-15] MEDS: PIPERACIL-TAZO 2.25 GM/50 ML 2.25 GM/50 ML BAG IV SCH ×2 (01:41→17:57)
[2021-07-15] MEDS: IPRATROPIUM/ALBUTEROL SULFATE 3 ML AMPUL.NEB IH SCH (02:03)
--- NOTE | 2021-07-15 05:13 | XRay Report ---
XR chest 1V ap INDICATION / CLINICAL INFORMATION: follow up respiratory failure. COMPARISON: Radiograph from yesterday. FINDINGS: SUPPORT DEVICES: Unchanged. HEART /PULMONARY VASCULATURE: Unchanged. LUNGS / PLEURA: Improving right basilar airspace disease. Left lung remains clear. No pneumothorax. IMPRESSION: 1. Improving right basilar airspace disease. Signer Name: Bill Elaine MD Signed: 07/15/2021 5:08 AM Workstation Name: [id number]
[2021-07-15] MEDS: ISOSORBIDE DINITRATE 10 MG TAB PO SCH ×4 (05:46→21:14)
[2021-07-15 06:11] LABS: INR 1.04 (0.87-1.13)
[2021-07-15 06:21] LABS: Calcium 10.6 mg/dL (8.4-10.2)
[2021-07-15 07:10] LABS: Hematocrit 32.4 % (30.3-42.9); Hemoglobin 10.1 gm/dl (10.1-14.3); Mean Corpuscular HGB Conc 31 % (30-34); Mean Corpuscular Volume 79 fl (79-97); Platelet Count 255 K/mm3 (140-440); Red Blood Count 4.12 M/mm3 (3.65-5.03); Red Cell Distribution Width 16.3 % (13.2-15.2)
[2021-07-15] MEDS ORDERED: EPINEPHrine 1 MG/10 ML SYRINGE ONE (08:15)
[2021-07-15] MEDS ORDERED: ATROPINE 0.1% (1 MG/10 ML) CARDIAC SYRINGE ONE (08:15)
[2021-07-15] MEDS ORDERED: HEPARIN/NS 5000 UNIT/500ML 1,000 ML IR ONE (08:15)
[2021-07-15] MEDS ORDERED: LIDOCAINE PF 100 MG/5 ML (CARDIAC SYRINGE) IV ONE (08:15)
[2021-07-15] MEDS ORDERED: HEPARIN 10,000 UNITS/10 ML VIAL ONE (08:16)
[2021-07-15] MEDS ORDERED: NITROGLYCERIN SYRINGE 3 ML ONE (08:16)
[2021-07-15] MEDS ORDERED: PHENYLEPHRINE/NS 1,000 MCG/10 ML SYRINGE (OR USE) IV ONE (08:16)
[2021-07-15] MEDS ORDERED: LIDOCAINE (2%) 20 MG/1 ML VIAL 20 ML MDV INFILTRATI ONE (08:16)
[2021-07-15] MEDS ORDERED: VERAPAMIL 5 MG/2 ML INJ ONE (08:16)
[2021-07-15] MEDS ORDERED: SODIUM CHLORIDE 0.9% 1000 ML 1,000 ML ONE (08:17)
[2021-07-15] MEDS ORDERED: fentaNYL 100 MCG/2 ML INJ ONE (09:32)
[2021-07-15] MEDS ORDERED: MIDAZOLAM 2 MG/2 ML INJ ONE (09:40)
[2021-07-15] MEDS: LIDOCAINE (2%) 20 MG/1 ML VIAL 20 ML MDV INFILTRATI ONE ×2 (09:42→09:47)
[2021-07-15] MEDS ORDERED: hydrALAZINE 20 MG/1 ML INJ ONE ×2 (10:00→10:09)
--- NOTE | 2021-07-15 10:35 | Cardiac Catherization Report ---
DATE OF PROCEDURE: 07/15/2021 PROCEDURE: Cardiac catheterization. REFERRING PHYSICIAN: Dr. Patel. INDICATIONS FOR PROCEDURE: The patient is a 60-year-old female with multiple VT arrests, intubated, sedated with a defibrillator in place, history of multiple PCIs referred for left heart catheterization to exclude ischemic etiology of VT. At this point, we will proceed with left heart catheterization. Risks, benefits and alternatives were discussed with the patient's daughter. PROCEDURE IN DETAIL: The patient was brought to cath lab tech in a postabsorptive state. She was intubated and sedated, prepped and draped in sterile fashion. Unable to access the right radial artery. Then, 8 mL of 2% lidocaine used to anesthetize the right groin. A standard 6-Filipino sheath was placed in the right common femoral artery via modified Seldinger technique. All exchanges performed to exchange a J-tip guidewire. A JL3.5 catheter was used to engage the left main. No dampening or ventricularization. Cineangiography performed in multiple projections. JR4 catheter used to engage the right coronary. No dampening or ventricularization. Cineangiography performed in all projections. Given her history of multiple VT arrests, I did not enter the left ventricle. Once procedure was done, I did give her additional fentanyl and Versed. At this point, the procedure was stopped. There were no complications. The right groin sheath was pulled and manual pressure compression used to achieve hemostasis. DATA: Aortic pressure is 170/70. The patient remained in normal sinus rhythm throughout the procedure. CORONARY ANATOMY: This is a right dominant system. Left main without significant disease, bifurcates in left anterior descending and left circumflex. Left circumflex is moderate sized vessel, courses AV groove. Left main without significant disease. Left circumflex with a pair of stents in the ostial and proximal left circumflex. There is an 80% in-stent restenosis at the ostial left circumflex with MADHU 3 flow throughout the LAD, with stents in the proximal and mid segment. MADHU 3 flow throughout the LAD. There is a 70%, small second diagonal stenosis in the mid segment with MADHU 3 flow throughout. Right coronary is a moderate sized vessel, courses AV groove, distally bifurcates in the posterior descending and posterolateral branches. No obstructive disease noted in this dominant right coronary. CONCLUSIONS: 1. Moderate epicardial coronary artery disease as aforementioned. Patent stents in the left anterior descending, patent stent in the ostial and proximal left circumflex with 70%-80% ostial in-stent restenosis, but MADHU 3 flow throughout the left system. Right coronary without significant disease. 2. No left ventriculogram gram due to presence of multiple episodes of ventricular tachycardia. The patient is clinically stable. At this point given, MADHU 3 flow throughout the coronary tree, I do not believe the ventricular tachycardia is ischemic. Discussed with electrophysiology at [place]. The patient will be transferred to [place] for possible VT ablation. Once this is complete, may consider elective PCI of ostial left circumflex, but this should be able to be done on an elective basis. Continue with IV amiodarone. Standard groin care. We will discuss with the patient's family. Also again attempted to reach the patient's primary acrylic fabricator at [facility], Dr. José Luis Nielsen. We will continue to follow closely. TID: [id number] RECEIPT: [id number] DEXTER/RISA
--- NOTE | 2021-07-15 10:50 | Event Note ---
Date: 07/15/21 Cath performed earlier this morning. Please see full cath report. 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 José Luis ceballos). Also discussed with patient's daughter, Herbert ([phone]). Discussed with electrophysiology at [facility] (Dr. Strauss). Patient will be transferred to [facility] in stable condition (to remain intubated and sedated) for consideration of VT ablation. No further VT events since ~ midnight last night. Cont IV amio. Also discussed with Dr. Felix ([employer]). All parties are aware and abreast of plan moving forward.
--- NOTE | 2021-07-15 11:38 | Electrocardiograph Report ---
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
[2021-07-15] MEDS ORDERED: fentaNYL 100 MCG/2 ML INJ IV PRN (11:52)
[2021-07-15] MEDS ORDERED: fentaNYL 100 MCG/2 ML INJ IV ONE (12:00)
--- NOTE | 2021-07-15 12:29 | Progress Note ---
Assessment and Plan Assessment: End stage renal disease on dialysis Volume overload Diabetes CVA (cerebral vascular accident) Hypertension Vtach Hypokalemia Plan: Hemodialysis tomorrow for UF and clearance Last HD was on Thursday Respiratory Failure-on Vent VTACH-awaiting transfer to [place] for Ablation per Cardiology Hypokalemia- KCL 10 meq IV X1 Strict I&O's daily On daily weights Assess dialysis needs daily Plan of care reviewed by Dr. Rivera Subjective Date of service: 07/15/21 Principal diagnosis: ESRD Interval history: Patient seen lying in bed, intubated. No family at bedside. RN at bedside states patient had an episode of VTACH requiring CPR. Went to process laboratory specialist this morning for cardiac cath. Plan to transfer to [place] for Ablation. Objective - Vital Signs Vital signs: Vital Signs - 12hr 07/15/21 07/15/21 07/15/21 00:30 00:45 01:00 Temperature Pulse Rate 70 70 70 Pulse Rate [ Anterior Bilateral Throughout] Pulse Rate [ From Monitor] Pulse Rate [ Right Radial] Respiratory 16 16 16 Rate Respiratory Rate [Anterior Bilateral Throughout] Blood Pressure 216/64 223/76 223/69 O2 Sat by Pulse 100 100 100 Oximetry 07/15/21 07/15/21 07/15/21 01:15 01:30 01:45 Temperature Pulse Rate 70 70 70 Pulse Rate [ Anterior Bilateral Throughout] Pulse Rate [ From Monitor] Pulse Rate [ Right Radial] Respiratory 16 17 16 Rate Respiratory Rate [Anterior Bilateral Throughout] Blood Pressure 208/68 208/68 177/70 O2 Sat by Pulse 100 100 99 Oximetry 07/15/21 07/15/21 07/15/21 02:00 02:15 02:30 Temperature Pulse Rate 70 70 70 Pulse Rate [ 70 Anterior Bilateral Throughout] Pulse Rate [ From Monitor] Pulse Rate [ Right Radial] Respiratory 16 16 16 Rate Respiratory 16 Rate [Anterior Bilateral Throughout] Blood Pressure 181/72 133/60 119/58 O2 Sat by Pulse 100 100 100 Oximetry 07/15/21 07/15/21 07/15/21 02:45 03:00 03:15 Temperature Pulse Rate 70 70 70 Pulse Rate [ Anterior Bilateral Throughout] Pulse Rate [ From Monitor] Pulse Rate [ Right Radial] Respiratory 16 16 16 Rate Respiratory Rate [Anterior Bilateral Throughout] Blood Pressure 122/58 129/62 144/64 O2 Sat by Pulse 100 100 100 Oximetry 12/01/2807/15/21 07/15/21 03:30 03:45 04:00 Temperature 99.5 F Pulse Rate 70 70 70 Pulse Rate [ Anterior Bilateral Throughout] Pulse Rate [ 78 From Monitor] Pulse Rate [ Right Radial] Respiratory 16 16 16 Rate Respiratory Rate [Anterior Bilateral Throughout] Blood Pressure 175/69 144/60 127/59 O2 Sat by Pulse 100 100 100 Oximetry 07/15/21 07/15/21 07/15/21 04:15 04:30 04:45 Temperature Pulse Rate 70 70 70 Pulse Rate [ Anterior Bilateral Throughout] Pulse Rate [ From Monitor] Pulse Rate [ Right Radial] Respiratory 16 16 16 Rate Respiratory Rate [Anterior Bilateral Throughout] Blood Pressure 130/59 120/60 133/63 O2 Sat by Pulse 100 100 100 Oximetry 07/15/21 07/15/21 07/15/21 05:00 05:15 05:30 Temperature Pulse Rate 70 70 70 Pulse Rate [ Anterior Bilateral Throughout] Pulse Rate [ From Monitor] Pulse Rate [ Right Radial] Respiratory 16 16 16 Rate Respiratory Rate [Anterior Bilateral Throughout] Blood Pressure 135/64 145/66 149/66 O2 Sat by Pulse 100 100 100 Oximetry 07/15/21 07/15/21 07/15/21 05:45 05:47 06:00 Temperature Pulse Rate 70 70 70 Pulse Rate [ Anterior Bilateral Throughout] Pulse Rate [ From Monitor] Pulse Rate [ Right Radial] Respiratory 16 16 Rate Respiratory Rate [Anterior Bilateral Throughout] Blood Pressure 142/76 142/76 162/70 O2 Sat by Pulse 100 100 Oximetry 07/15/21 07/15/21 07/15/21 06:15 06:30 06:45 Temperature Pulse Rate 70 70 70 Pulse Rate [ Anterior Bilateral Throughout] Pulse Rate [ From Monitor] Pulse Rate [ Right Radial] Respiratory 16 16 14 Rate Respiratory Rate [Anterior Bilateral Throughout] Blood Pressure 158/67 152/69 153/71 O2 Sat by Pulse 100 100 100 Oximetry 07/15/21 07/15/21 07/15/21 07:00 07:15 07:30 Temperature Pulse Rate 70 70 70 Pulse Rate [ Anterior Bilateral Throughout] Pulse Rate [ From Monitor] Pulse Rate [ Right Radial] Respiratory 16 16 16 Rate Respiratory Rate [Anterior Bilateral Throughout] Blood Pressure 168/72 150/66 134/63 O2 Sat by Pulse 100 100 100 Oximetry 07/15/21 07/15/21 07/15/21 07:33 07:45 08:00 Temperature 98.4 F Pulse Rate 70 70 Pulse Rate [ Anterior Bilateral Throughout] Pulse Rate [ From Monitor] Pulse Rate [ Right Radial] Respiratory 16 15 Rate Respiratory Rate [Anterior Bilateral Throughout] Blood Pressure 158/67 195/81 O2 Sat by Pulse 100 100 Oximetry 07/15/21 07/15/21 07/15/21 08:15 08:27 08:30 Temperature Pulse Rate 70 70 70 Pulse Rate [ Anterior Bilateral Throughout] Pulse Rate [ From Monitor] Pulse Rate [ Right Radial] Respiratory 16 17 Rate Respiratory Rate [Anterior Bilateral Throughout] Blood Pressure 191/70 191/70 195/67 O2 Sat by Pulse 100 100 100 Oximetry 07/15/21 07/15/21 07/15/21 08:45 09:00 09:02 Temperature Pulse Rate 70 70 Pulse Rate [ Anterior Bilateral Throughout] Pulse Rate [ From Monitor] Pulse Rate [ Right Radial] Respiratory 16 Rate Respiratory Rate [Anterior Bilateral Throughout] Blood Pressure 181/85 182/55 O2 Sat by Pulse 100 100 Oximetry 07/15/21 07/15/21 07/15/21 10:50 11:00 11:15 Temperature Pulse Rate 70 70 70 Pulse Rate [ Anterior Bilateral Throughout] Pulse Rate [ From Monitor] Pulse Rate [ 70 Right Radial] Respiratory 15 18 Rate Respiratory Rate [Anterior Bilateral Throughout] Blood Pressure 143/58 157/58 O2 Sat by Pulse 100 100 Oximetry 07/15/21 07/15/21 07/15/21 11:30 11:45 12:00 Temperature Pulse Rate 70 70 70 Pulse Rate [ Anterior Bilateral Throughout] Pulse Rate [ From Monitor] Pulse Rate [ Right Radial] Respiratory 16 16 10 L Rate Respiratory Rate [Anterior Bilateral Throughout] Blood Pressure 163/65 170/70 139/64 O2 Sat by Pulse 100 100 100 Oximetry 07/15/21 12:10 Temperature 98.9 F Pulse Rate Pulse Rate [ Anterior Bilateral Throughout] Pulse Rate [ From Monitor] Pulse Rate [ Right Radial] Respiratory Rate Respiratory Rate [Anterior Bilateral Throughout] Blood Pressure O2 Sat by Pulse Oximetry - General Appearance General appearance: well-developed, sedated on ventilator, intubated EENT: ATNC Neck: no JVD Respiratory: Present: Decreased Breath Sounds, Other (Intubated) Cardiology: S1S2 Gastrointestinal: normoactive bowel sounds Integumentary: warm and dry Neurologic: other (Sedated) Musculoskeletal: other (No edema) - Lab 07/15/21 05:33 07/15/21 05:33 Most recent lab results ABG pH 7.540 (7.320-7.450) H 07/15/21 03:31 ABG pCO2 45.6 mm Hg 07/11/21 11:38 ABG pO2 78.8 mm Hg (80.0-90.0) L 07/11/21 11:38 ABG HCO3 24.2 mmol/L (20.0-26.0) 07/11/21 11:38 ABG O2 Saturation 99.3 (0-100) 07/15/21 03:31 Calcium 10.6 mg/dL (8.4-10.2) H 07/15/21 05:33 Phosphorus 5.10 mg/dL (2.5-4.5) H D 07/15/21 05:33 Magnesium 2.90 mg/dL (1.7-2.3) H 07/15/21 05:33 Medications & Allergies - Medications Allergies/Adverse Reactions: Allergies No Known Allergies Allergy (Unverified 07/10/21 20:57) Home Medications: Home Medications Medication Instructions Recorded Confirmed Last Taken Type Atorvastatin [Lipitor Tab] 80 mg PO DAILY 07/12/21 07/12/21 Unknown History Clopidogrel [Plavix] 75 mg PO QDAY 07/12/21 07/12/21 Unknown History Gabapentin [Neurontin] 600 mg PO Q8H 07/12/21 07/12/21 Unknown History Icosapent Ethyl [Vascepa] 2 gm PO BID 07/12/21 07/12/21 Unknown History Isosorbide Mononitrate [Isosorbide 30 mg PO DAILY 07/12/21 07/12/21 Unknown History Mononitrate ER] Losartan [Cozaar] 25 mg PO BID 07/12/21 07/12/21 Unknown History NIFEdipine [Nifedipine ER] 90 mg PO BID 07/12/21 07/12/21 Unknown History Spironolactone [Aldactone] 50 mg PO HS 07/12/21 07/12/21 Unknown History Velphoro (Nf) 2 gm PO TID 07/12/21 07/12/21 Unknown History hydrALAZINE [Apresoline TAB] 25 mg PO BID 07/12/21 07/12/21 Unknown History labetaloL [Labetalol 200mg TAB] 600 mg PO BID 07/12/21 07/12/21 Unknown History traZODone [Desyrel] 50 mg PO HS 07/12/21 07/12/21 Unknown History Active Medications: Generic Name Dose Route Start Last Admin Trade Name Freq PRN Reason Stop Dose Admin Acetaminophen 650 mg 07/11/21 00:53 07/13/21 00:51 Acetaminophen 325 Mg Tab PO 650 mg Q4H PRN Administration Pain MILD(1-3)/Fever >100.5/COWART Acetaminophen 650 mg 07/12/21 03:40 07/12/21 03:52 Acetaminophen 650 Mg Rect Supp NM 650 mg Q4H PRN Administration Pain, Mild (1-3) Albuterol 2.5 mg 07/11/21 00:53 Albuterol 2.5 Mg/3 Ml Nebu IH Q4HRT PRN Shortness Of Breath Amiodarone HCl 200 mg 07/14/21 22:00 07/14/21 21:24 Amiodarone 200 Mg Tab PO 200 mg BID JODI Administration Lipase/Protease/Amylase 1 each 07/13/21 13:10 Lipase 10,500/Protease 25,000/Amylase 43,750 (Units) Dr William CABRALESTUBE PRN PRN For Clogged Feeding Tube Atorvastatin Calcium 80 mg 07/12/21 22:00 07/14/21 21:24 Atorvastatin 40 Mg Tab PO 80 mg QHS JODI Administration Clopidogrel Bisulfate 75 mg 07/12/21 18:00 07/14/21 09:00 Clopidogrel 75 Mg Tab PO 75 mg QDAY JODI Administration Dextrose 50 ml 07/12/21 17:22 Dextrose 50% In Water (25gm) 50 Ml Syringe IV Q30MIN PRN Hypoglycemia Protocol Famotidine 10 mg 07/13/21 10:00 07/14/21 21:23 Famotidine 20 Mg/2 Ml Inj IV 10 mg BID JODI Administration Fentanyl 50 mcg 07/15/21 11:52 Fentanyl 100 Mcg/2 Ml Inj IV Q2H PRN CPOT > 2 Heparin Sodium (Porcine) 5,000 unit 07/11/21 10:00 07/14/21 21:28 Heparin 5,000 Unit/1 Ml Vial SUB-Q 5,000 unit Q12HR JODI Administration Hydralazine HCl 10 mg 07/15/21 00:51 07/15/21 09:02 Hydralazine 20 Mg/1 Ml Inj IV 07/19/21 00:50 10 mg Q6H PRN Administration Hypertension Hydrophilic Ointment 1 applic 07/12/21 20:55 Lip Therapy Vaseline TP Q2HR PRN Dry Lips Nicardipine HCl 50 mg/ Sodium 250 mls @ 25 mls/hr 07/11/21 22:00 07/12/21 22:30 Chloride IV 0 mg/hr TITR JODI 0 mls/hr Titration Protocol 5 MG/HR Propofol 1,000 mg in 100 mls @ 1.617 mls/hr 07/12/21 21:00 07/15/21 05:45 Diprivan 10 Mg/Ml IV 40 mcg/kg/min TITR JODI 12.936 mls/hr Administration Protocol 5 MCG/KG/MIN Lidocaine HCl/Dextrose 2,000 mg in 500 mls @ 15 mls/hr 07/12/21 23:56 07/13/21 21:00 Xylocaine/D5w 2gm/500ml Drip IV 0 mg/min DIRECT JODI 0 mls/hr Titration Protocol 1 MG/MIN Piperacillin Sod/Tazobactam Sod 2.25 gm in 50 mls @ 100 mls/hr 07/13/21 08:00 07/15/21 01:41 Zosyn/Ns 2.25 Gm/50ml IV 100 mls/hr Q8H JODI Administration Protocol Sodium Chloride 100 mls @ 999 mls/hr 07/13/21 12:00 Nacl 0.9% IV GLENDY PRN Hypotension Amiodarone HCl 900 mg/ 500 mls @ 33.333 mls/hr 07/14/21 23:45 07/14/21 23:45 Dextrose IV 1 mg/min DIRECT JODI 33.333 mls/hr Administration Protocol 1 MG/MIN Insulin Human Lispro 0 unit 07/13/21 12:00 07/15/21 06:33 Insulin Lispro 100 Unit/Ml SUB-Q Not Given Q6HR JODI Protocol Isosorbide Dinitrate 5 mg 07/14/21 14:00 07/15/21 05:47 Isosorbide Dinitrate 10 Mg Tab PO 5 mg Q8HR JODI Administration Metoprolol Tartrate 25 mg 07/14/21 10:00 07/14/21 20:10 Metoprolol Tartrate 50 Mg Tab PO 25 mg TID JODI Administration Multi-Ingred Cream/Lotion/Oil/Oint 1 applic 07/12/21 20:55 Mineral Oil/Petrolatum, White Ophth Oint 3.5 Gm OU Q4HR PRN Dry Eye(s) Ondansetron HCl 4 mg 07/11/21 00:53 Ondansetron 4 Mg/2 Ml Inj IV Q8H PRN Nausea And Vomiting Senna/Docusate Sodium 1 tab 07/12/21 22:00 07/14/21 21:24 Sennosides/Docusate Sodium 8.6/50 Mg Tab FEEDTUBE 1 tab BID JODI Administration Simple Syrup 15 ml 07/13/21 13:10 Simple Syrup 15 Ml FEEDTUBE PRN PRN Hypoglycemia Simple Syrup 30 ml 07/13/21 13:10 Simple Syrup 15 Ml FEEDTUBE PRN PRN Hypoglycemia Sodium Bicarbonate 325 mg 07/13/21 13:10 Sodium Bicarbonate 325 Mg Tab FEEDTUBE PRN PRN For Clogged Feeding Tube Sodium Chloride 10 ml 07/11/21 10:00 07/14/21 21:28 Sodium Chloride 0.9% 10 Ml Flush Syringe IV 10 ml BID JODI Administration Sodium Chloride 10 ml 07/11/21 00:53 Sodium Chloride 0.9% 10 Ml Flush Syringe IV PRN PRN LINE FLUSH
[2021-07-15] MEDS ORDERED: POTASSIUM CHLORIDE 10 MEQ 10 MEQ/100 ML BAG IV SCH (13:00)
--- NOTE | 2021-07-15 13:12 | Progress Note ---
Assessment and Plan 60 y/o female with ESRD on HD TTS admitted with acute respiratory failure secondary to volume overload, now with what appears to be VT storm aborted with lidocaine drip 07/15/21: Vent and sedation as cards request transfer on vent incase of repeat VT. Monitor electrolytes. Added pain control along with sedation. 07/14/21: Continue vent and sedation. Per cards cath tomorrow while on vent. HD per renal, got it today with 3.5 off. Follow up electrolytes in the am and keep K at 4 and Mag at 2. 07/13/21: Continue sedation on vent. Per cards, plan to cath on vent on Thursday. Once cathed then will determine if transfer is needed to [facility] for ablation. Continue sedation and lidocaine drip. HD per renal but likely not again until Thursday. CCT 31 minutes. 1. Continue precedex for now 2. Wean off either during HD or post if BP becomes an issue 3. Monitor in unit tonight and likely transfer out in the am as she is on room air now. If bed is needed may move sooner. Subjective Date of service: 07/15/21 Principal diagnosis: ESRD Interval history: Had cath today, no disease that can explain VT storm. Objective Vital Signs - 12hr 07/15/21 07/15/21 07/15/21 01:15 01:30 01:45 Temperature Pulse Rate 70 70 70 Pulse Rate [ Anterior Bilateral Throughout] Pulse Rate [ From Monitor] Pulse Rate [ Right Radial] Respiratory 16 17 16 Rate Respiratory Rate [Anterior Bilateral Throughout] Blood Pressure 208/68 208/68 177/70 O2 Sat by Pulse 100 100 99 Oximetry 07/15/21 07/15/21 07/15/21 02:00 02:15 02:30 Temperature Pulse Rate 70 70 70 Pulse Rate [ 70 Anterior Bilateral Throughout] Pulse Rate [ From Monitor] Pulse Rate [ Right Radial] Respiratory 16 16 16 Rate Respiratory 16 Rate [Anterior Bilateral Throughout] Blood Pressure 181/72 133/60 119/58 O2 Sat by Pulse 100 100 100 Oximetry 07/15/21 07/15/21 07/15/21 02:45 03:00 03:15 Temperature Pulse Rate 70 70 70 Pulse Rate [ Anterior Bilateral Throughout] Pulse Rate [ From Monitor] Pulse Rate [ Right Radial] Respiratory 16 16 16 Rate Respiratory Rate [Anterior Bilateral Throughout] Blood Pressure 122/58 129/62 144/64 O2 Sat by Pulse 100 100 100 Oximetry 07/15/21 07/15/21 07/15/21 03:30 03:45 04:00 Temperature 99.5 F Pulse Rate 70 70 70 Pulse Rate [ Anterior Bilateral Throughout] Pulse Rate [ 78 From Monitor] Pulse Rate [ Right Radial] Respiratory 16 16 16 Rate Respiratory Rate [Anterior Bilateral Throughout] Blood Pressure 175/69 144/60 127/59 O2 Sat by Pulse 100 100 100 Oximetry 07/15/21 07/15/21 07/15/21 04:15 04:30 04:45 Temperature Pulse Rate 70 70 70 Pulse Rate [ Anterior Bilateral Throughout] Pulse Rate [ From Monitor] Pulse Rate [ Right Radial] Respiratory 16 16 16 Rate Respiratory Rate [Anterior Bilateral Throughout] Blood Pressure 130/59 120/60 133/63 O2 Sat by Pulse 100 100 100 Oximetry 07/15/21 07/15/21 07/15/21 05:00 05:15 05:30 Temperature Pulse Rate 70 70 70 Pulse Rate [ Anterior Bilateral Throughout] Pulse Rate [ From Monitor] Pulse Rate [ Right Radial] Respiratory 16 16 16 Rate Respiratory Rate [Anterior Bilateral Throughout] Blood Pressure 135/64 145/66 149/66 O2 Sat by Pulse 100 100 100 Oximetry 07/15/21 07/15/21 07/15/21 05:45 05:47 06:00 Temperature Pulse Rate 70 70 70 Pulse Rate [ Anterior Bilateral Throughout] Pulse Rate [ From Monitor] Pulse Rate [ Right Radial] Respiratory 16 16 Rate Respiratory Rate [Anterior Bilateral Throughout] Blood Pressure 142/76 142/76 162/70 O2 Sat by Pulse 100 100 Oximetry 07/15/21 07/15/21 07/15/21 06:15 06:30 06:45 Temperature Pulse Rate 70 70 70 Pulse Rate [ Anterior Bilateral Throughout] Pulse Rate [ From Monitor] Pulse Rate [ Right Radial] Respiratory 16 16 14 Rate Respiratory Rate [Anterior Bilateral Throughout] Blood Pressure 158/67 152/69 153/71 O2 Sat by Pulse 100 100 100 Oximetry 07/15/21 07/15/21 07/15/21 07:00 07:15 07:30 Temperature Pulse Rate 70 70 70 Pulse Rate [ Anterior Bilateral Throughout] Pulse Rate [ From Monitor] Pulse Rate [ Right Radial] Respiratory 16 16 16 Rate Respiratory Rate [Anterior Bilateral Throughout] Blood Pressure 168/72 150/66 134/63 O2 Sat by Pulse 100 100 100 Oximetry 07/15/21 07/15/21 07/15/21 07:33 07:45 08:00 Temperature 98.4 F Pulse Rate 70 70 Pulse Rate [ Anterior Bilateral Throughout] Pulse Rate [ From Monitor] Pulse Rate [ Right Radial] Respiratory 16 15 Rate Respiratory Rate [Anterior Bilateral Throughout] Blood Pressure 158/67 195/81 O2 Sat by Pulse 100 100 Oximetry 07/15/21 07/15/21 07/15/21 08:15 08:27 08:30 Temperature Pulse Rate 70 70 70 Pulse Rate [ Anterior Bilateral Throughout] Pulse Rate [ From Monitor] Pulse Rate [ Right Radial] Respiratory 16 17 Rate Respiratory Rate [Anterior Bilateral Throughout] Blood Pressure 191/70 191/70 195/67 O2 Sat by Pulse 100 100 100 Oximetry 07/15/21 07/15/21 07/15/21 08:45 09:00 09:02 Temperature Pulse Rate 70 70 Pulse Rate [ Anterior Bilateral Throughout] Pulse Rate [ From Monitor] Pulse Rate [ Right Radial] Respiratory 16 Rate Respiratory Rate [Anterior Bilateral Throughout] Blood Pressure 181/85 182/55 O2 Sat by Pulse 100 100 Oximetry 07/15/21 07/15/21 07/15/21 10:50 11:00 11:15 Temperature Pulse Rate 70 70 70 Pulse Rate [ Anterior Bilateral Throughout] Pulse Rate [ From Monitor] Pulse Rate [ 70 Right Radial] Respiratory 15 18 Rate Respiratory Rate [Anterior Bilateral Throughout] Blood Pressure 143/58 157/58 O2 Sat by Pulse 100 100 Oximetry 07/15/21 07/15/21 07/15/21 11:30 11:45 12:00 Temperature Pulse Rate 70 70 70 Pulse Rate [ Anterior Bilateral Throughout] Pulse Rate [ From Monitor] Pulse Rate [ Right Radial] Respiratory 16 16 10 L Rate Respiratory Rate [Anterior Bilateral Throughout] Blood Pressure 163/65 170/70 139/64 O2 Sat by Pulse 100 100 100 Oximetry 07/15/21 07/15/21 12:10 12:40 Temperature 98.9 F Pulse Rate 70 Pulse Rate [ Anterior Bilateral Throughout] Pulse Rate [ From Monitor] Pulse Rate [ Right Radial] Respiratory Rate Respiratory Rate [Anterior Bilateral Throughout] Blood Pressure 110/60 O2 Sat by Pulse 100 Oximetry Constitutional: no acute distress, alert Eyes: non-icteric ENT: oropharynx moist Neck: supple Ascultation: Bilateral: rales Percussion: Bilateral: not dull Cardiovascular: regular rate and rhythm Gastrointestinal: normoactive bowel sounds, soft Extremities: pink and warm, pulses normal CBC and BMP: 07/15/21 05:33 07/15/21 05:33 ABG, PT/INR, D-dimer: ABG ABG pH 7.540 (7.320-7.450) H 07/15/21 03:31 POC ABG pCO2 24.7 mmHg (32.0-48.0) L 07/15/21 03:31 ABG pCO2 45.6 mm Hg 07/11/21 11:38 POC ABG pO2 157.6 mmHg (83-108) H 07/15/21 03:31 ABG pO2 78.8 mm Hg (80.0-90.0) L 07/11/21 11:38 POC ABG HCO3 20.6 07/15/21 03:31 ABG O2 Saturation 99.3 (0-100) 07/15/21 03:31 PT/INR, D-dimer PT 14.7 Sec. (12.2-14.9) 07/15/21 05:33 INR 1.04 (0.87-1.13) 07/15/21 05:33 Abnormal lab findings: Abnormal Labs 07/10/21 07/10/21 07/10/21 21:38 21:38 21:38 WBC 4.2 L RBC Hgb 9.2 L Hct 29.6 L MCH 25 L RDW 17.1 H Norman % (Auto) 13.8 H Baso % (Auto) 2.8 H Lymph # (Auto) 0.9 L APTT 40.5 H ABG pH POC ABG pCO2 POC ABG pO2 ABG pO2 ABG O2 Saturation ABG Hemoglobin ABG Oxyhemoglobin ABG Sodium ABG Potassium ABG Chloride ABG Glucose Oxyhemoglobin Carboxyhemoglobin Sodium 136 L Potassium Chloride 95.3 L Carbon Dioxide BUN 35 H Creatinine 6.6 H Glucose POC Glucose Lactic Acid Calcium Phosphorus Magnesium AST ALT Total Creatine Kinase Troponin T 0.035 H NT-Pro-B Natriuret Pep Total Protein 8.7 H Triglycerides Cholesterol 233 H LDL Cholesterol Direct 157 H Free T4 Arterial Blood Glucose 07/10/21 07/11/21 07/11/21 21:38 08:20 10:03 WBC RBC Hgb Hct MCH RDW Norman % (Auto) Baso % (Auto) Lymph # (Auto) APTT ABG pH POC ABG pCO2 POC ABG pO2 ABG pO2 ABG O2 Saturation ABG Hemoglobin ABG Oxyhemoglobin ABG Sodium ABG Potassium ABG Chloride ABG Glucose Oxyhemoglobin Carboxyhemoglobin Sodium Potassium Chloride Carbon Dioxide BUN Creatinine Glucose POC Glucose 112 H Lactic Acid 0.60 L Calcium Phosphorus Magnesium AST ALT Total Creatine Kinase Troponin T NT-Pro-B Natriuret Pep 12631 H Total Protein Triglycerides Cholesterol LDL Cholesterol Direct Free T4 Arterial Blood Glucose 07/11/21 07/11/21 07/11/21 11:27 11:38 Unknown WBC RBC Hgb Hct MCH RDW Norman % (Auto) Baso % (Auto) Lymph # (Auto) APTT ABG pH 7.343 L POC ABG pCO2 POC ABG pO2 ABG pO2 78.8 L ABG O2 Saturation 94.8 L ABG Hemoglobin 10.1 L ABG Oxyhemoglobin ABG Sodium ABG Potassium ABG Chloride ABG Glucose Oxyhemoglobin 92.5 L Carboxyhemoglobin Sodium Potassium Chloride Carbon Dioxide BUN Creatinine Glucose POC Glucose 155 H Lactic Acid Calcium Phosphorus Magnesium AST ALT Total Creatine Kinase 136 H Troponin T NT-Pro-B Natriuret Pep Total Protein Triglycerides Cholesterol LDL Cholesterol Direct Free T4 Arterial Blood Glucose 07/11/21 07/12/21 07/12/21 Unknown 04:43 04:43 WBC RBC 3.36 L Hgb 8.4 L Hct 26.6 L MCH 25 L RDW 16.7 H Norman % (Auto) 12.4 H Baso % (Auto) 2.2 H Lymph # (Auto) 1.0 L APTT ABG pH POC ABG pCO2 POC ABG pO2 ABG pO2 ABG O2 Saturation ABG Hemoglobin ABG Oxyhemoglobin ABG Sodium ABG Potassium ABG Chloride ABG Glucose Oxyhemoglobin Carboxyhemoglobin Sodium Potassium Chloride 95.2 L Carbon Dioxide BUN 31 H Creatinine 5.4 H Glucose POC Glucose Lactic Acid Calcium Phosphorus Magnesium AST 153 H ALT 117 H Total Creatine Kinase Troponin T 0.037 H NT-Pro-B Natriuret Pep Total Protein Triglycerides Cholesterol LDL Cholesterol Direct Free T4 Arterial Blood Glucose 07/12/21 07/12/21 07/12/21 11:00 19:12 19:37 WBC RBC Hgb Hct MCH RDW Norman % (Auto) Baso % (Auto) Lymph # (Auto) APTT ABG pH POC ABG pCO2 POC ABG pO2 ABG pO2 ABG O2 Saturation ABG Hemoglobin 8.4 L ABG Oxyhemoglobin ABG Sodium 135.3 L ABG Potassium ABG Chloride ABG Glucose Oxyhemoglobin Carboxyhemoglobin Sodium Potassium Chloride Carbon Dioxide BUN Creatinine Glucose POC Glucose 131 H Lactic Acid Calcium Phosphorus Magnesium 2.60 H AST ALT Total Creatine Kinase Troponin T NT-Pro-B Natriuret Pep Total Protein Triglycerides Cholesterol LDL Cholesterol Direct Free T4 Arterial Blood Glucose 07/12/21 07/13/21 07/13/21 22:03 02:55 02:55 WBC RBC Hgb 9.4 L Hct MCH 25 L RDW 16.9 H Norman % (Auto) Baso % (Auto) Lymph # (Auto) APTT ABG pH 7.512 H POC ABG pCO2 31.9 L POC ABG pO2 80.0 L ABG pO2 ABG O2 Saturation ABG Hemoglobin 11 L ABG Oxyhemoglobin ABG Sodium ABG Potassium ABG Chloride ABG Glucose 162 H Oxyhemoglobin Carboxyhemoglobin 0.2 L Sodium 135 L Potassium Chloride 94.8 L Carbon Dioxide 21 L BUN 29 H Creatinine 4.2 H Glucose 149 H POC Glucose Lactic Acid Calcium Phosphorus 6.20 H Magnesium 2.60 H AST ALT Total Creatine Kinase Troponin T NT-Pro-B Natriuret Pep Total Protein Triglycerides Cholesterol LDL Cholesterol Direct Free T4 Arterial Blood Glucose 162 H 07/13/21 07/13/21 07/13/21 02:55 04:03 07:52 WBC RBC Hgb Hct MCH RDW Norman % (Auto) Baso % (Auto) Lymph # (Auto) APTT ABG pH 7.471 H POC ABG pCO2 POC ABG pO2 270.3 H ABG pO2 ABG O2 Saturation ABG Hemoglobin 9.6 L ABG Oxyhemoglobin 99.4 H ABG Sodium ABG Potassium 5.2 H ABG Chloride ABG Glucose 106 H Oxyhemoglobin Carboxyhemoglobin 0.4 L Sodium Potassium Chloride Carbon Dioxide BUN Creatinine Glucose POC Glucose Lactic Acid 3.00 H* Calcium Phosphorus Magnesium AST ALT Total Creatine Kinase Troponin T NT-Pro-B Natriuret Pep Total Protein Triglycerides Cholesterol LDL Cholesterol Direct Free T4 1.60 H Arterial Blood Glucose 106 H 07/13/21 07/13/21 07/14/21 11:40 18:01 03:56 WBC RBC Hgb Hct MCH RDW Norman % (Auto) Baso % (Auto) Lymph # (Auto) APTT ABG pH 7.531 H POC ABG pCO2 31.4 L POC ABG pO2 150.8 H ABG pO2 ABG O2 Saturation ABG Hemoglobin 10.6 L ABG Oxyhemoglobin 99.3 H ABG Sodium 135.1 L ABG Potassium 3.2 L ABG Chloride 94.0 L ABG Glucose 118 H Oxyhemoglobin Carboxyhemoglobin 0 L Sodium Potassium Chloride Carbon Dioxide BUN Creatinine Glucose POC Glucose 109 H 110 H Lactic Acid Calcium Phosphorus Magnesium AST ALT Total Creatine Kinase Troponin T NT-Pro-B Natriuret Pep Total Protein Triglycerides Cholesterol LDL Cholesterol Direct Free T4 Arterial Blood Glucose 118 H 07/14/21 07/14/21 07/14/21 05:23 06:19 06:19 WBC RBC Hgb 9.9 L Hct MCH 26 L RDW 16.8 H Norman % (Auto) Baso % (Auto) Lymph # (Auto) APTT ABG pH POC ABG pCO2 POC ABG pO2 ABG pO2 ABG O2 Saturation ABG Hemoglobin ABG Oxyhemoglobin ABG Sodium ABG Potassium ABG Chloride ABG Glucose Oxyhemoglobin Carboxyhemoglobin Sodium 133 L Potassium Chloride 90.7 L Carbon Dioxide BUN 29 H Creatinine 3.8 H Glucose 113 H POC Glucose 113 H Lactic Acid Calcium 10.5 H Phosphorus Magnesium AST ALT Total Creatine Kinase Troponin T NT-Pro-B Natriuret Pep Total Protein Triglycerides Cholesterol LDL Cholesterol Direct Free T4 Arterial Blood Glucose 07/14/21 07/14/21 07/15/21 11:53 17:33 00:12 WBC RBC Hgb Hct MCH RDW Norman % (Auto) Baso % (Auto) Lymph # (Auto) APTT ABG pH POC ABG pCO2 POC ABG pO2 ABG pO2 ABG O2 Saturation ABG Hemoglobin ABG Oxyhemoglobin ABG Sodium ABG Potassium ABG Chloride ABG Glucose Oxyhemoglobin Carboxyhemoglobin Sodium Potassium Chloride Carbon Dioxide BUN Creatinine Glucose POC Glucose 117 H 106 H 129 H Lactic Acid Calcium Phosphorus Magnesium AST ALT Total Creatine Kinase Troponin T NT-Pro-B Natriuret Pep Total Protein Triglycerides Cholesterol LDL Cholesterol Direct Free T4 Arterial Blood Glucose 07/15/21 07/15/21 07/15/21 03:31 05:02 05:33 WBC RBC Hgb Hct MCH RDW Norman % (Auto) Baso % (Auto) Lymph # (Auto) APTT ABG pH 7.540 H POC ABG pCO2 24.7 L POC ABG pO2 157.6 H ABG pO2 ABG O2 Saturation ABG Hemoglobin 10.6 L ABG Oxyhemoglobin 99.2 H ABG Sodium 129.9 L ABG Potassium 3.2 L ABG Chloride 91.0 L ABG Glucose 135 H Oxyhemoglobin Carboxyhemoglobin 0 L Sodium Potassium Chloride Carbon Dioxide BUN Creatinine Glucose POC Glucose 118 H Lactic Acid Calcium Phosphorus Magnesium AST ALT Total Creatine Kinase Troponin T NT-Pro-B Natriuret Pep Total Protein Triglycerides 329 H Cholesterol LDL Cholesterol Direct Free T4 Arterial Blood Glucose 135 H 07/15/21 07/15/21 05:33 05:33 WBC RBC Hgb Hct MCH 25 L RDW 16.3 H Norman % (Auto) Baso % (Auto) Lymph # (Auto) APTT ABG pH POC ABG pCO2 POC ABG pO2 ABG pO2 ABG O2 Saturation ABG Hemoglobin ABG Oxyhemoglobin ABG Sodium ABG Potassium ABG Chloride ABG Glucose Oxyhemoglobin Carboxyhemoglobin Sodium 129 L Potassium 3.2 L Chloride 87.5 L Carbon Dioxide 20 L BUN 49 H Creatinine 5.7 H Glucose 115 H POC Glucose Lactic Acid Calcium 10.6 H Phosphorus 5.10 H D Magnesium 2.90 H AST ALT Total Creatine Kinase Troponin T NT-Pro-B Natriuret Pep Total Protein Triglycerides Cholesterol LDL Cholesterol Direct Free T4 Arterial Blood Glucose
[2021-07-15] MEDS: METOPROLOL TARTRATE 50 MG TAB PO SCH ×3 (15:31→21:14)
--- NOTE | 2021-07-15 16:08 | Progress Note ---
<ADA FERNANDEZ - Last Filed: 07/15/21 18:31> Assessment and Plan Assessment and plan: This is 60-year-old female with HTN, CVA, DM, ESRD on HD, hyperparathyroidism, CHF admitted for volume overload, possible acute CHF exacerbation and acute hypoxic respiratory distress. Hospital Course to Date: 07/11: Patient transferred to IMCU/ICU for agitation, hypoxia. Cardiology was consulted and echocardiogram was ordered. Patient was placed on BiPAP therapy and received hemodialysis with removal of 4 L. FiO2 was able to be decreased to 50% after dialysis. 07/12: Patient was weaned off of BiPAP to Ventimask which she removed. HD scheduled for today. Patient is on a Precedex drip for agitation and will titrate off as tolerated. Possible transfer out of the unit tomorrow. COVID-19 PCR negative 07/13: Patient was intubated overnight for sustained ventricular tachycardia with multiple AICD shocks despite IV push amiodarone, amiodarone drip , no insulin bolus and magnesium drip. Patient currently on lidocaine drip, amiodarone drip, propofol for sedation. Cardiology increase metoprolol to 3 times daily. Device will be interrogated today. 07/14: Adjusted BP meds today r/y hypotension. Plan to perform LHC tomorrow. Of lidocaine gtt and amio to be turned to 0.5 and off this evening. 07/15: Patient went into VTACH subsequently coded with ROSC overnight. Patient is s/p LHC by Cardio today. Per Cardio VT storm is less likely related to ischemia. Plan to transfer patient to [facility] for possible VT ablation, accepting physician- Dr. Cardona. Transfer already initiated by cardiology, pending bed availability. Patient remains intubated, sedation restarted due to increased agitation, tachynea, and tachycardia. Remains on amio gtt, AV pacing on the monitor. Hyponatremia and hypokalemia noted from this am lab, plan for possible HD today. Assessment and Plan #Neuro: Acute agitation, h/o CVA -Intubated with increased agitation -Sedated with propofol -RASS goal 0 to -2 -Avoid delirium -Reorientation as needed -Maintain sleep-wake cycle #Cardio: S/p Cardiac Arrest with ROSC #Ventricular tachycardia storm #congestive heart failure/volume overload #H/o HTN -Patient went into VTach then coded overnight -Cardiology consulted, appreciate recommendations -07/15 s/p LHC today -Per cardio, VT storm is less likely related to ischemia -Plan to transfer patient to [facility] for possible VT ablation, awaiting bed availability -Continue home antihypertensive regimen and adjust as needed -hydralazine D/C, cozaar/metoprolol/isordil decreased -S/p multiple firing of AICD device (VT/torsades) -S/p magnesium drip -S/p amio push -AICD to be interrogated 07/13 -Remains on Amio gtt, AV paced on the monitor -Echocardiogram shows LVEF 55 to 60%, normal bivalve function, mild LVH, trace MR, RVSP 67 mmHg, mild TR, trace MD -Continue blood pressure monitor per protocol -Maintain MAP above 65 - Continue Hep SubQ and plavix #Respiratory: Acute respiratory failure -Intubated on 07/12 -Vent settings:AC- 30%,6,16,450 - AM ABG noted - CCM consulted, appreciate recommendations - VAP bundle addressed - Aspiration precaution HOB above 30 - Daily ABG and CXR - Continue SPO2 monitoring for SPO2 goal above 95% #GI: NAD -NPO for pocedure -NTR consult for tube feeding -Continue BR- senokot -Continue PPI- Pepcid #: ESRD on HD #Hyponatremia -NA 129 this am -FWF decreased -Nephrology consulted, appreciate recommendations -Possible HD today -Patient is anuric -Strict intake and output -Avoid nephrotoxic medications; Renally dose medications -Monitor and replace electrolytes as needed #Heme: Anemia of chronic disease -H&H remains stable -Trend CBC -Transfuse for hemoglobin less than 7 -SCDs to BLE while in bed -Heparin subq #ID:SIRS #Lactic acidosis -Etiology unclear -All cultures so far are negative -Lactic acid as high as 3 -Afebrile overnight, TMAX 100.5 -WBCs wnl -COVID-19 PCR negative -ID consulted, appreciate recommendations -Continue IV Abx per ID -Trend WBC and fever curve -Follow-up cultures #Endo: h/o DM -Continue SSI Q6hrs -Avoid hypoglycemia -Long-acting insulin The high probability of a clinically significant, sudden or life threatening deterioration of the [resp,CV, Neuro] system(s) required my full and direct attention, intervention and personal management. The aggregate critical care time was [60] minutes. This time is in addition to time spent performing reported procedures but includes the following: [x] Data Review and interpretation [x] Patient assessment and monitoring of vital signs [x] Documentation [x] Medication orders and management Disposition Plan: ICU Total Time Spent with Patient (Minutes): 60 History Interval history: Patient seen and examined at the bedside. S/p cardiac arrest overnight. Remains intubated and sedated, propofol restarted due to increased agitation. Remains on Amio gtt Hospitalist Physical - Constitutional Vitals: Temp Pulse Resp BP Pulse Ox 98.9 F 70 16 198/78 100 07/15/21 12:10 07/15/21 15:33 07/15/21 15:33 07/15/21 15:33 07/15/21 15:33 General appearance: Present: no acute distress, other (Intubated and Sedated) - EENT Eyes: Present: PERRL - Respiratory Respiratory effort: normal Respiratory: bilateral: diminished - Cardiovascular Rhythm: other (Paced on the monitor) Heart Sounds: Present: S1 & S2 - Extremities Extremities: no ischemia, pulses intact, pulses symmetrical Peripheral Pulses: within normal limits - Abdominal General gastrointestinal: soft, non-tender, hypoactive bowel sounds - Integumentary Integumentary: Present: clear, warm, dry - Psychiatric Psychiatric: other (Intubated and Sedated) - Neurologic Neurologic: other (Intubated and Sedated) - Allied Health Allied health notes reviewed: nursing HEART Score - HEART Score Troponin: Troponin T 0.037 ng/mL (0.00-0.029) H 07/11/21 Unknown Results - Labs CBC & Chem 7: 07/15/21 05:33 07/15/21 05:33 Labs: Laboratory Last Values WBC 9.2 K/mm3 (4.5-11.0) 07/15/21 05:33 RBC 4.12 M/mm3 (3.65-5.03) 07/15/21 05:33 Hgb 10.1 gm/dl (10.1-14.3) 07/15/21 05:33 Hct 32.4 % (30.3-42.9) 07/15/21 05:33 MCV 79 fl (79-97) 07/15/21 05:33 MCH 25 pg (28-32) L 07/15/21 05:33 MCHC 31 % (30-34) 07/15/21 05:33 RDW 16.3 % (13.2-15.2) H 07/15/21 05:33 Plt Count 255 K/mm3 (140-440) 07/15/21 05:33 Lymph % (Auto) 19.8 % (13.4-35.0) 07/12/21 04:43 [place] % (Auto) 12.4 % (0.0-7.3) H 07/12/21 04:43 Eos % (Auto) 0.4 % (0.0-4.3) 07/12/21 04:43 Baso % (Auto) 2.2 % (0.0-1.8) H 07/12/21 04:43 Lymph # (Auto) 1.0 K/mm3 (1.2-5.4) L 07/12/21 04:43 [place] # (Auto) 0.6 K/mm3 (0.0-0.8) 07/12/21 04:43 Eos # (Auto) 0.0 K/mm3 (0.0-0.4) 07/12/21 04:43 Baso # (Auto) 0.1 K/mm3 (0.0-0.1) 07/12/21 04:43 Seg Neutrophils % 65.2 % (40.0-70.0) 07/12/21 04:43 Seg Neutrophils # 3.4 K/mm3 (1.8-7.7) 07/12/21 04:43 PT 14.7 Sec. (12.2-14.9) 07/15/21 05:33 INR 1.04 (0.87-1.13) 07/15/21 05:33 APTT 40.5 Sec. (24.2-36.6) H 07/10/21 21:38 ABG pH 7.540 (7.320-7.450) H 07/15/21 03:31 POC ABG pCO2 24.7 mmHg (32.0-48.0) L 07/15/21 03:31 ABG pCO2 45.6 mm Hg 07/11/21 11:38 POC ABG pO2 157.6 mmHg (83-108) H 07/15/21 03:31 ABG pO2 78.8 mm Hg (80.0-90.0) L 07/11/21 11:38 POC ABG HCO3 20.6 07/15/21 03:31 ABG HCO3 24.2 mmol/L (20.0-26.0) 07/11/21 11:38 ABG O2 Saturation 99.3 (0-100) 07/15/21 03:31 POC ABG Base Excess -0.8 07/15/21 03:31 ABG Base Excess -1.6 mmol/L (-2.0-3.0) 07/11/21 11:38 ABG Hemoglobin 10.6 (12.0-17.5) L 07/15/21 03:31 ABG Oxyhemoglobin 99.2 (94-98) H 07/15/21 03:31 ABG Carboxyhemoglobin 2.0 % (0.0-5.0) 07/11/21 11:38 ABG Methemoglobin 0.1 (0.0-1.5) 07/15/21 03:31 ABG Sodium 129.9 mmol/L (136.0-145.0) L 07/15/21 03:31 ABG Potassium 3.2 mmol/L (3.40-4.50) L 07/15/21 03:31 ABG Chloride 91.0 mmol/L (98-107) L 07/15/21 03:31 ABG Glucose 135 mg/dL (65-95) H 07/15/21 03:31 Oxyhemoglobin 92.5 % (95.0-99.0) L 07/11/21 11:38 Carboxyhemoglobin 0 (0.5-1.5) L 07/15/21 03:31 FiO2 100 % 07/11/21 11:38 FiO2 % 30.0 07/15/21 03:31 Sodium 129 mmol/L (137-145) L 07/15/21 05:33 Potassium 3.2 mmol/L (3.6-5.0) L 07/15/21 05:33 Chloride 87.5 mmol/L (98-107) L 07/15/21 05:33 Carbon Dioxide 20 mmol/L (22-30) L 07/15/21 05:33 Anion Gap 25 mmol/L 07/15/21 05:33 BUN 49 mg/dL (7-17) H 07/15/21 05:33 Creatinine 5.7 mg/dL (0.6-1.2) H 07/15/21 05:33 Estimated GFR 9 ml/min 07/15/21 05:33 BUN/Creatinine Ratio 9 % 07/15/21 05:33 Glucose 115 mg/dL (65-100) H 07/15/21 05:33 POC Glucose 92 mg/dL (70-105) 07/15/21 11:12 Lactic Acid 3.00 mmol/L (0.7-2.0) H* 07/13/21 02:55 Calcium 10.6 mg/dL (8.4-10.2) H 07/15/21 05:33 Phosphorus 5.10 mg/dL (2.5-4.5) H D 07/15/21 05:33 Magnesium 2.90 mg/dL (1.7-2.3) H 07/15/21 05:33 Total Bilirubin 0.60 mg/dL (0.1-1.2) 07/12/21 04:43 AST 153 units/L (5-40) H 07/12/21 04:43 ALT 117 units/L (7-56) H 07/12/21 04:43 Alkaline Phosphatase 71 units/L (35-129) 07/12/21 04:43 Total Creatine Kinase 136 units/L (30-135) H 07/11/21 Unknown Troponin T 0.037 ng/mL (0.00-0.029) H 07/11/21 Unknown NT-Pro-B Natriuret Pep 12521 pg/mL (0-900) H 07/10/21 21:38 Total Protein 7.5 g/dL (6.3-8.2) 07/12/21 04:43 Albumin 4.0 g/dL (3.9-5) 07/12/21 04:43 Albumin/Globulin Ratio 1.1 % 07/12/21 04:43 Triglycerides 329 mg/dL (2-149) H 07/15/21 05:33 Cholesterol 233 mg/dL (50-199) H 07/10/21 21:38 LDL Cholesterol Direct 157 mg/dL (50-130) H 07/10/21 21:38 HDL Cholesterol 52 mg/dL (40-59) 07/10/21 21:38 Cholesterol/HDL Ratio 4.48 % 07/10/21 21:38 Procalcitonin 5.04 ng/mL (<0.15) 07/12/21 14:18 TSH 3.000 mlU/mL (0.270-4.200) 07/13/21 07:52 Free T4 1.60 ng/dL (0.76-1.46) H 07/13/21 07:52 Thyroxine (T4) 10.9 ug/dL (4.0-12.0) 07/13/21 07:52 Arterial Blood Glucose 135 mg/dL (65-95) H 07/15/21 03:31 Arterial Blood Ionized Calcium 4.9 mg/dL (4.6-5.3) 07/14/21 03:56 Random Vancomycin 12.2 ug/mL (0-40.0) 07/13/21 07:52 Coronavirus (PCR) Negative (Negative) 07/12/21 Unknown Hepatitis A IgM Ab Non-reactive (NonReactive) 07/11/21 09:48 Hep Bs Antigen Nonreactive (Negative) 07/11/21 09:48 Hep B Core IgM Ab Non-reactive (NonReactive) 07/11/21 09:48 Hepatitis C Antibody Non-reactive (NonReactive) 07/11/21 09:48 Microbiology: Microbiology 07/13/21 02:55 Peripheral/Venous Blood Culture - Preliminary NO GROWTH AFTER 48 HOURS 07/13/21 01:50 Peripheral/Venous Blood Culture - Preliminary NO GROWTH AFTER 48 HOURS 07/10/21 21:38 Peripheral/Venous Blood Culture - Preliminary NO GROWTH AFTER 4 DAYS 07/10/21 21:44 Peripheral/Venous Blood Culture - Preliminary NO GROWTH AFTER 4 DAYS 07/12/21 14:18 Peripheral/Venous Blood Culture - Preliminary NO GROWTH AFTER 48 HOURS 07/12/21 14:18 Peripheral/Venous Blood Culture - Preliminary NO GROWTH AFTER 48 HOURS Garza/IV: Voiding Method Diaper Active Medications - Current Medications Current Medications: Generic Name Dose Route Start Last Admin Trade Name Freq PRN Reason Stop Dose Admin Acetaminophen 650 mg 07/11/21 00:53 07/13/21 00:51 Acetaminophen 325 Mg Tab PO 650 mg Q4H PRN Administration Pain MILD(1-3)/Fever >100.5/COWART Acetaminophen 650 mg 07/12/21 03:40 07/12/21 03:52 Acetaminophen 650 Mg Rect Supp MD 650 mg Q4H PRN Administration Pain, Mild (1-3) Albuterol 2.5 mg 07/11/21 00:53 Albuterol 2.5 Mg/3 Ml Nebu IH Q4HRT PRN Shortness Of Breath Amiodarone HCl 200 mg 07/14/21 22:00 07/14/21 21:24 Amiodarone 200 Mg Tab PO 200 mg BID JODI Administration Lipase/Protease/Amylase 1 each 07/13/21 13:10 Lipase 10,500/Protease 25,000/Amylase 43,750 (Units) Dr Thomas FEEDTUBE PRN PRN For Clogged Feeding Tube Atorvastatin Calcium 80 mg 07/12/21 22:00 07/14/21 21:24 Atorvastatin 40 Mg Tab PO 80 mg QHS JODI Administration Clopidogrel Bisulfate 75 mg 07/12/21 18:00 07/14/21 09:00 Clopidogrel 75 Mg Tab PO 75 mg QDAY JODI Administration Dextrose 50 ml 07/12/21 17:22 Dextrose 50% In Water (25gm) 50 Ml Syringe IV Q30MIN PRN Hypoglycemia Protocol Famotidine 10 mg 07/13/21 10:00 07/14/21 21:23 Famotidine 20 Mg/2 Ml Inj IV 10 mg BID JODI Administration Fentanyl 50 mcg 07/15/21 11:52 07/15/21 15:28 Fentanyl 100 Mcg/2 Ml Inj IV 50 mcg Q2H PRN Administration CPOT > 2 Heparin Sodium (Porcine) 5,000 unit 07/11/21 10:00 07/14/21 21:28 Heparin 5,000 Unit/1 Ml Vial SUB-Q 5,000 unit Q12HR JODI Administration Hydralazine HCl 10 mg 07/15/21 00:51 07/15/21 09:02 Hydralazine 20 Mg/1 Ml Inj IV 07/19/21 00:50 10 mg Q6H PRN Administration Hypertension Hydrophilic Ointment 1 applic 07/12/21 20:55 Lip Therapy Vaseline TP Q2HR PRN Dry Lips Nicardipine HCl 50 mg/ Sodium 250 mls @ 25 mls/hr 07/11/21 22:00 07/12/21 22:30 Chloride IV 0 mg/hr TITR JODI 0 mls/hr Titration Protocol 5 MG/HR Propofol 1,000 mg in 100 mls @ 1.617 mls/hr 07/12/21 21:00 07/15/21 05:45 Diprivan 10 Mg/Ml IV 40 mcg/kg/min TITR JODI 12.936 mls/hr Administration Protocol 5 MCG/KG/MIN Lidocaine HCl/Dextrose 2,000 mg in 500 mls @ 15 mls/hr 07/12/21 23:56 07/13/21 21:00 Xylocaine/D5w 2gm/500ml Drip IV 0 mg/min DIRECT JODI 0 mls/hr Titration Protocol 1 MG/MIN Piperacillin Sod/Tazobactam Sod 2.25 gm in 50 mls @ 100 mls/hr 07/13/21 08:00 07/15/21 01:41 Zosyn/Ns 2.25 Gm/50ml IV 100 mls/hr Q8H [facility] Administration Protocol Sodium Chloride 100 mls @ 999 mls/hr 07/13/21 12:00 Nacl 0.9% IV GLENDY PRN Hypotension Amiodarone HCl 900 mg/ 500 mls @ 33.333 mls/hr 07/14/21 23:45 07/14/21 23:45 Dextrose IV 1 mg/min DIRECT JODI 33.333 mls/hr Administration Protocol 1 MG/MIN Insulin Human Lispro 0 unit 07/13/21 12:00 07/15/21 06:33 Insulin Lispro 100 Unit/Ml SUB-Q Not Given Q6HR [facility] Protocol Isosorbide Dinitrate 5 mg 07/14/21 14:00 07/15/21 15:29 Isosorbide Dinitrate 10 Mg Tab PO 5 mg Q8HR [facility] Administration Metoprolol Tartrate 25 mg 07/14/21 10:00 07/15/21 15:31 Metoprolol Tartrate 50 Mg Tab PO 25 mg TID [facility] Administration Multi-Ingred Cream/Lotion/Oil/Oint 1 applic 07/12/21 20:55 Mineral Oil/Petrolatum, White Ophth Oint 3.5 Gm OU Q4HR PRN Dry Eye(s) Ondansetron HCl 4 mg 07/11/21 00:53 Ondansetron 4 Mg/2 Ml Inj IV Q8H PRN Nausea And Vomiting Senna/Docusate Sodium 1 tab 07/12/21 22:00 07/14/21 21:24 Sennosides/Docusate Sodium 8.6/50 Mg Tab FEEDTUBE 1 tab BID JODI Administration Simple Syrup 15 ml 07/13/21 13:10 Simple Syrup 15 Ml FEEDTUBE PRN PRN Hypoglycemia Simple Syrup 30 ml 07/13/21 13:10 Simple Syrup 15 Ml FEEDTUBE PRN PRN Hypoglycemia Sodium Bicarbonate 325 mg 07/13/21 13:10 Sodium Bicarbonate 325 Mg Tab FEEDTUBE PRN PRN For Clogged Feeding Tube Sodium Chloride 10 ml 07/11/21 10:00 07/14/21 21:28 Sodium Chloride 0.9% 10 Ml Flush Syringe IV 10 ml BID JODI Administration Sodium Chloride 10 ml 07/11/21 00:53 Sodium Chloride 0.9% 10 Ml Flush Syringe IV PRN PRN LINE FLUSH Nutrition/Malnutrition Assess - Dietary Evaluation Nutrition/Malnutrition Findings: Nutrition Notes Start: 07/12/21 14:50 Freq: Status: Active Protocol: Document 07/13/21 12:51 CW (Rec: 07/13/21 13:10 CW [id number]) Nutrition Notes Initial or Follow up Reassessment Current Diagnosis CKD (stage V CKD),Diabetes, Hypertension Other Pertinent Diagnosis on HD, Vol. Overload Current Diet NPO Labs/Tests Na 135 BUN 29 Cr 4.2 BG 149 Phos 6.2 Pertinent Medications propofol at 0.259 (9 kcal) Height 5 ft 2 in Weight 51.9 kg [place] Body Weight (kg) 50.00 BMI 20.9 Weight Status Appropriate Subjective/Other Information MD consult for TF. Pt on mechancial vent at this time. Percent of energy/protein needs met: 0%/0% Burn Absent Trauma Absent GI Symptoms None Difficulty In Swallowing Food Allergy No Current % PO Negligible Minimum of two criteria No Fluid Accumulation Mild (non-severe) #2 Nutrition Diagnosis Inadequate oral intake,No nutrition diagnosis at this time Etiology respiratory failure As Evidenced by Signs and Symptoms pt on mechanical vent at this time and unable to consume via PO #1 Nutrition Diagnosis Food and nutrition-related knowledge deficit As Evidenced by Signs and Symptoms No diet education noted; Pt inappropriate at this time for diet education d/t mechancial vent Diagnosis Progress(for reassessment Continues documentation) Is patient on ventilator? Yes Is Patient Ambulatory and/or Out of Bed Yes REE-([place]-St. Jeor-ambulatory/OOB) [ [id number] [id number]] Calculation Used for Recommendations Ghazala Gandhi Additional Notes protein needs: 62 - 104 (1.2 - 2g/kgBW) Fluid needs: 1500 mL for HD or per MD order Nutrition Intervention Change Diet Order: Inititate TF when medically feasible Nutrition Support: Nepro at 35 ml/hr with a free water flush of 150 ml q4h Kcal 1,512 Protein (gm) 68 Fluid (mL) 611 Goal #1 Meet at least 75% of kcal and protein needs via TF Follow-Up By: 07/16/21 Additional Comments F/u for TF start and toelrance <ARNOLD BRENNAN R - Last Filed: 07/15/21 20:48> History Interval history: Attendings note: Patient was seen and examined by me after cardiac catheterization today. Based on the findings, prop worker thinks recurrent ventricular tachycardia is not from underlying ischemia. Cardiology made arrangements for transfer to [facility] for possible VT ablation. Patient remains hemodynamically stable. She has low- grade fever for which she ID evaluated and changed antibiotic therapy from Zosyn to meropenem. Cultures remain positive. No leukocytosis. Electrolyte abnormalities in the setting of ESRD reviewed. For hemodialysis today. A femoral central line was placed today for access issues. Patient remains on ventilator with FiO2 30%, pulmonary edema resolved. Hemodynamically stable. D iscussed with cardiac care unit nurse, nursing staff and nurse practitioner. Hospitalist Physical - Constitutional Vitals: Temp Pulse Resp BP Pulse Ox 97.5 F L 70 16 154/79 100 07/15/21 20:00 07/15/21 20:15 07/15/21 20:15 07/15/21 20:15 07/15/21 20:15 HEART Score - HEART Score Troponin: Troponin T 0.037 ng/mL (0.00-0.029) H 07/11/21 Unknown Results - Labs CBC & Chem 7: 07/15/21 05:33 07/15/21 05:33 Labs: Laboratory Last Values WBC 9.2 K/mm3 (4.5-11.0) 07/15/21 05:33 RBC 4.12 M/mm3 (3.65-5.03) 07/15/21 05:33 Hgb 10.1 gm/dl (10.1-14.3) 07/15/21 05:33 Hct 32.4 % (30.3-42.9) 07/15/21 05:33 MCV 79 fl (79-97) 07/15/21 05:33 MCH 25 pg (28-32) L 07/15/21 05:33 MCHC 31 % (30-34) 07/15/21 05:33 RDW 16.3 % (13.2-15.2) H 07/15/21 05:33 Plt Count 255 K/mm3 (140-440) 07/15/21 05:33 Lymph % (Auto) 19.8 % (13.4-35.0) 07/12/21 04:43 [place] % (Auto) 12.4 % (0.0-7.3) H 07/12/21 04:43 Eos % (Auto) 0.4 % (0.0-4.3) 07/12/21 04:43 Baso % (Auto) 2.2 % (0.0-1.8) H 07/12/21 04:43 Lymph # (Auto) 1.0 K/mm3 (1.2-5.4) L 07/12/21 04:43 [place] # (Auto) 0.6 K/mm3 (0.0-0.8) 07/12/21 04:43 Eos # (Auto) 0.0 K/mm3 (0.0-0.4) 07/12/21 04:43 Baso # (Auto) 0.1 K/mm3 (0.0-0.1) 07/12/21 04:43 Seg Neutrophils % 65.2 % (40.0-70.0) 07/12/21 04:43 Seg Neutrophils # 3.4 K/mm3 (1.8-7.7) 07/12/21 04:43 PT 14.7 Sec. (12.2-14.9) 07/15/21 05:33 INR 1.04 (0.87-1.13) 07/15/21 05:33 APTT 40.5 Sec. (24.2-36.6) H 07/10/21 21:38 ABG pH 7.540 (7.320-7.450) H 07/15/21 03:31 POC ABG pCO2 24.7 mmHg (32.0-48.0) L 07/15/21 03:31 ABG pCO2 45.6 mm Hg 07/11/21 11:38 POC ABG pO2 157.6 mmHg (83-108) H 07/15/21 03:31 ABG pO2 78.8 mm Hg (80.0-90.0) L 07/11/21 11:38 POC ABG HCO3 20.6 07/15/21 03:31 ABG HCO3 24.2 mmol/L (20.0-26.0) 07/11/21 11:38 ABG O2 Saturation 99.3 (0-100) 07/15/21 03:31 POC ABG Base Excess -0.8 07/15/21 03:31 ABG Base Excess -1.6 mmol/L (-2.0-3.0) 07/11/21 11:38 ABG Hemoglobin 10.6 (12.0-17.5) L 07/15/21 03:31 ABG Oxyhemoglobin 99.2 (94-98) H 07/15/21 03:31 ABG Carboxyhemoglobin 2.0 % (0.0-5.0) 07/11/21 11:38 ABG Methemoglobin 0.1 (0.0-1.5) 07/15/21 03:31 ABG Sodium 129.9 mmol/L (136.0-145.0) L 07/15/21 03:31 ABG Potassium 3.2 mmol/L (3.40-4.50) L 07/15/21 03:31 ABG Chloride 91.0 mmol/L (98-107) L 07/15/21 03:31 ABG Glucose 135 mg/dL (65-95) H 07/15/21 03:31 Oxyhemoglobin 92.5 % (95.0-99.0) L 07/11/21 11:38 Carboxyhemoglobin 0 (0.5-1.5) L 07/15/21 03:31 FiO2 100 % 07/11/21 11:38 FiO2 % 30.0 07/15/21 03:31 Sodium 129 mmol/L (137-145) L 07/15/21 05:33 Potassium 3.2 mmol/L (3.6-5.0) L 07/15/21 05:33 Chloride 87.5 mmol/L (98-107) L 07/15/21 05:33 Carbon Dioxide 20 mmol/L (22-30) L 07/15/21 05:33 Anion Gap 25 mmol/L 07/15/21 05:33 BUN 49 mg/dL (7-17) H 07/15/21 05:33 Creatinine 5.7 mg/dL (0.6-1.2) H 07/15/21 05:33 Estimated GFR 9 ml/min 07/15/21 05:33 BUN/Creatinine Ratio 9 % 07/15/21 05:33 Glucose 115 mg/dL (65-100) H 07/15/21 05:33 POC Glucose 103 mg/dL (70-105) 07/15/21 16:37 Lactic Acid 3.00 mmol/L (0.7-2.0) H* 07/13/21 02:55 Calcium 10.6 mg/dL (8.4-10.2) H 07/15/21 05:33 Phosphorus 5.10 mg/dL (2.5-4.5) H D 07/15/21 05:33 Magnesium 2.90 mg/dL (1.7-2.3) H 07/15/21 05:33 Total Bilirubin 0.60 mg/dL (0.1-1.2) 07/12/21 04:43 AST 153 units/L (5-40) H 07/12/21 04:43 ALT 117 units/L (7-56) H 07/12/21 04:43 Alkaline Phosphatase 71 units/L (35-129) 07/12/21 04:43 Total Creatine Kinase 136 units/L (30-135) H 07/11/21 Unknown Troponin T 0.037 ng/mL (0.00-0.029) H 07/11/21 Unknown NT-Pro-B Natriuret Pep 16022 pg/mL (0-900) H 07/10/21 21:38 Total Protein 7.5 g/dL (6.3-8.2) 07/12/21 04:43 Albumin 4.0 g/dL (3.9-5) 07/12/21 04:43 Albumin/Globulin Ratio 1.1 % 07/12/21 04:43 Triglycerides 329 mg/dL (2-149) H 07/15/21 05:33 Cholesterol 233 mg/dL (50-199) H 07/10/21 21:38 LDL Cholesterol Direct 157 mg/dL (50-130) H 07/10/21 21:38 HDL Cholesterol 52 mg/dL (40-59) 07/10/21 21:38 Cholesterol/HDL Ratio 4.48 % 07/10/21 21:38 Procalcitonin 5.04 ng/mL (<0.15) 07/12/21 14:18 TSH 3.000 mlU/mL (0.270-4.200) 07/13/21 07:52 Free T4 1.60 ng/dL (0.76-1.46) H 07/13/21 07:52 Thyroxine (T4) 10.9 ug/dL (4.0-12.0) 07/13/21 07:52 Arterial Blood Glucose 135 mg/dL (65-95) H 07/15/21 03:31 Arterial Blood Ionized Calcium 4.9 mg/dL (4.6-5.3) 07/14/21 03:56 Random Vancomycin 12.2 ug/mL (0-40.0) 07/13/21 07:52 Coronavirus (PCR) Negative (Negative) 07/12/21 Unknown Hepatitis A IgM Ab Non-reactive (NonReactive) 07/11/21 09:48 Hep Bs Antigen Nonreactive (Negative) 07/11/21 09:48 Hep B Core IgM Ab Non-reactive (NonReactive) 07/11/21 09:48 Hepatitis C Antibody Non-reactive (NonReactive) 07/11/21 09:48 Microbiology: Microbiology 07/12/21 14:18 Peripheral/Venous Blood Culture - Preliminary NO GROWTH AFTER 72 HOURS 07/12/21 14:18 Peripheral/Venous Blood Culture - Preliminary NO GROWTH AFTER 72 HOURS 07/13/21 02:55 Peripheral/Venous Blood Culture - Preliminary NO GROWTH AFTER 48 HOURS 07/13/21 01:50 Peripheral/Venous Blood Culture - Preliminary NO GROWTH AFTER 48 HOURS 07/10/21 21:38 Peripheral/Venous Blood Culture - Preliminary NO GROWTH AFTER 4 DAYS 07/10/21 21:44 Peripheral/Venous Blood Culture - Preliminary NO GROWTH AFTER 4 DAYS Garza/IV: Voiding Method Diaper Active Medications - Current Medications Current Medications: Generic Name Dose Route Start Last Admin Trade Name Freq PRN Reason Stop Dose Admin Acetaminophen 650 mg 07/11/21 00:53 07/13/21 00:51 Acetaminophen 325 Mg Tab PO 650 mg Q4H PRN Administration Pain MILD(1-3)/Fever >100.5/COWART Acetaminophen 650 mg 07/12/21 03:40 07/12/21 03:52 Acetaminophen 650 Mg Rect Supp MD 650 mg Q4H PRN Administration Pain, Mild (1-3) Albuterol 2.5 mg 07/11/21 00:53 Albuterol 2.5 Mg/3 Ml Nebu IH Q4HRT PRN Shortness Of Breath Amiodarone HCl 200 mg 07/14/21 22:00 07/15/21 17:59 Amiodarone 200 Mg Tab PO Not Given BID JODI Lipase/Protease/Amylase 1 each 07/13/21 13:10 Lipase 10,500/Protease 25,000/Amylase 43,750 (Units) Dr Thomas FEEDTUBE PRN PRN For Clogged Feeding Tube Atorvastatin Calcium 80 mg 07/12/21 22:00 07/14/21 21:24 Atorvastatin 40 Mg Tab PO 80 mg QHS JODI Administration Clopidogrel Bisulfate 75 mg 07/12/21 18:00 07/15/21 18:01 Clopidogrel 75 Mg Tab PO Not Given QDAY JODI Dextrose 50 ml 07/12/21 17:22 Dextrose 50% In Water (25gm) 50 Ml Syringe IV Q30MIN PRN Hypoglycemia Protocol Famotidine 10 mg 07/13/21 10:00 07/15/21 18:02 Famotidine 20 Mg/2 Ml Inj IV Not Given BID JODI Fentanyl 50 mcg 07/15/21 11:52 07/15/21 15:28 Fentanyl 100 Mcg/2 Ml Inj IV 50 mcg Q2H PRN Administration CPOT > 2 Heparin Sodium (Porcine) 5,000 unit 07/11/21 10:00 07/15/21 18:01 Heparin 5,000 Unit/1 Ml Vial SUB-Q Not Given Q12HR JODI Hydralazine HCl 10 mg 07/15/21 00:51 07/15/21 09:02 Hydralazine 20 Mg/1 Ml Inj IV 07/19/21 00:50 10 mg Q6H PRN Administration Hypertension Hydrophilic Ointment 1 applic 07/12/21 20:55 Lip Therapy Vaseline TP Q2HR PRN Dry Lips Nicardipine HCl 50 mg/ Sodium 250 mls @ 25 mls/hr 07/11/21 22:00 07/12/21 22:30 Chloride IV 0 mg/hr TITR JODI 0 mls/hr Titration Protocol 5 MG/HR Propofol 1,000 mg in 100 mls @ 1.617 mls/hr 07/12/21 21:00 07/15/21 17:55 Diprivan 10 Mg/Ml IV 35 mcg/kg/min TITR JODI 11.319 mls/hr Titration Protocol 5 MCG/KG/MIN Lidocaine HCl/Dextrose 2,000 mg in 500 mls @ 15 mls/hr 07/12/21 23:56 07/13/21 21:00 Xylocaine/D5w 2gm/500ml Drip IV 0 mg/min DIRECT JODI 0 mls/hr Titration Protocol 1 MG/MIN Sodium Chloride 100 mls @ 999 mls/hr 07/13/21 12:00 Nacl 0.9% IV GLENDY PRN Hypotension Amiodarone HCl 900 mg/ 500 mls @ 33.333 mls/hr 07/14/21 23:45 07/14/21 23:45 Dextrose IV 1 mg/min DIRECT JODI 33.333 mls/hr Administration Protocol 1 MG/MIN Meropenem 500 mg in 50 mls @ 50 mls/hr 07/15/21 18:00 Merrem/Ns 500 Mg/50 Ml IV Q24H [facility] Insulin Human Lispro 0 unit 07/13/21 12:00 07/15/21 18:01 Insulin Lispro 100 Unit/Ml SUB-Q Not Given Q6HR [facility] Protocol Isosorbide Dinitrate 5 mg 07/14/21 14:00 07/15/21 15:29 Isosorbide Dinitrate 10 Mg Tab PO 5 mg Q8HR [facility] Administration Metoprolol Tartrate 25 mg 07/14/21 10:00 07/15/21 17:58 Metoprolol Tartrate 50 Mg Tab PO Not Given TID [facility] Multi-Ingred Cream/Lotion/Oil/Oint 1 applic 07/12/21 20:55 Mineral Oil/Petrolatum, White Ophth Oint 3.5 Gm OU Q4HR PRN Dry Eye(s) Ondansetron HCl 4 mg 07/11/21 00:53 Ondansetron 4 Mg/2 Ml Inj IV Q8H PRN Nausea And Vomiting Senna/Docusate Sodium 1 tab 07/12/21 22:00 07/15/21 18:01 Sennosides/Docusate Sodium 8.6/50 Mg Tab FEEDTUBE Not Given BID JODI Simple Syrup 15 ml 07/13/21 13:10 Simple Syrup 15 Ml FEEDTUBE PRN PRN Hypoglycemia Simple Syrup 30 ml 07/13/21 13:10 Simple Syrup 15 Ml FEEDTUBE PRN PRN Hypoglycemia Sodium Bicarbonate 325 mg 07/13/21 13:10 Sodium Bicarbonate 325 Mg Tab FEEDTUBE PRN PRN For Clogged Feeding Tube Sodium Chloride 10 ml 07/11/21 10:00 07/15/21 18:01 Sodium Chloride 0.9% 10 Ml Flush Syringe IV Not Given BID JODI Sodium Chloride 10 ml 07/11/21 00:53 Sodium Chloride 0.9% 10 Ml Flush Syringe IV PRN PRN LINE FLUSH Nutrition/Malnutrition Assess - Dietary Evaluation Nutrition/Malnutrition Findings: Nutrition Notes Start: 07/12/21 14:50 Freq: Status: Active Protocol: Document 07/13/21 12:51 CW (Rec: 07/13/21 13:10 CW [id number]) Nutrition Notes Initial or Follow up Reassessment Current Diagnosis CKD (stage V CKD),Diabetes, Hypertension Other Pertinent Diagnosis on HD, Vol. Overload Current Diet NPO Labs/Tests Na 135 BUN 29 Cr 4.2 BG 149 Phos 6.2 Pertinent Medications propofol at 0.259 (9 kcal) Height 5 ft 2 in Weight 51.9 kg [place] Body Weight (kg) 50.00 BMI 20.9 Weight Status Appropriate Subjective/Other Information MD consult for TF. Pt on mechancial vent at this time. Percent of energy/protein needs met: 0%/0% Burn Absent Trauma Absent GI Symptoms None Difficulty In Swallowing Food Allergy No Current % PO Negligible Minimum of two criteria No Fluid Accumulation Mild (non-severe) #2 Nutrition Diagnosis Inadequate oral intake,No nutrition diagnosis at this time Etiology respiratory failure As Evidenced by Signs and Symptoms pt on mechanical vent at this time and unable to consume via PO #1 Nutrition Diagnosis Food and nutrition-related knowledge deficit As Evidenced by Signs and Symptoms No diet education noted; Pt inappropriate at this time for diet education d/t mechancial vent Diagnosis Progress(for reassessment Continues documentation) Is patient on ventilator? Yes Is Patient Ambulatory and/or Out of Bed Yes REE-([facility]-ambulatory/OOB) [ [id number] NUTR.[id number]] Calculation Used for Recommendations Ghazala Gandhi Additional Notes protein needs: 62 - 104 (1.2 - 2g/kgBW) Fluid needs: 1500 mL for HD or per MD order Nutrition Intervention Change Diet Order: Inititate TF when medically feasible Nutrition Support: Nepro at 35 ml/hr with a free water flush of 150 ml q4h Kcal 1,512 Protein (gm) 68 Fluid (mL) 611 Goal #1 Meet at least 75% of kcal and protein needs via TF Follow-Up By: 07/16/21 Additional Comments F/u for TF start and toelrance
--- NOTE | 2021-07-15 17:39 | Consultation ---
History of Present Illness - Reason for Consult Consult date: 07/15/21 - History of Present Illness 60 yo F PMhx HTN, CVA, DM2, ESRD on HD, pacemaker in place, CAD, CHF presented to the hospital complaining of headache, abdominal pain, insomnia after missing dialysis. She was found to be hypoxic on presentation and was placed on nasal cannula, and there was concern for acute CHF exacerbation. She was eventually intubated due to hypoxia. She had sustained CTach with multiple AICD shocks. Febrile throughout her admission with a white count of 9.2. Blood and sputum cultures no growth. Imaging personally reviewed: CXR: Right basilar airspace disease Past History Past Medical History: diabetes, ESRD, hypertension, seizures, stroke, other (Hyperparathyroidism, headache migraine) Medications and Allergies Allergies Allergy/AdvReac Type Severity Reaction Status Date / Time No Known Allergies Allergy Unverified 07/10/21 20:57 Home Medications Medication Instructions Recorded Confirmed Last Taken Type Atorvastatin [Lipitor Tab] 80 mg PO DAILY 07/12/21 07/12/21 Unknown History Clopidogrel [Plavix] 75 mg PO QDAY 07/12/21 07/12/21 Unknown History Gabapentin [Neurontin] 600 mg PO Q8H 07/12/21 07/12/21 Unknown History Icosapent Ethyl [Vascepa] 2 gm PO BID 07/12/21 07/12/21 Unknown History Isosorbide Mononitrate [Isosorbide 30 mg PO DAILY 07/12/21 07/12/21 Unknown History Mononitrate ER] Losartan [Cozaar] 25 mg PO BID 07/12/21 07/12/21 Unknown History NIFEdipine [Nifedipine ER] 90 mg PO BID 07/12/21 07/12/21 Unknown History Spironolactone [Aldactone] 50 mg PO HS 07/12/21 07/12/21 Unknown History Velphoro (Nf) 2 gm PO TID 07/12/21 07/12/21 Unknown History hydrALAZINE [Apresoline TAB] 25 mg PO BID 07/12/21 07/12/21 Unknown History labetaloL [Labetalol 200mg TAB] 600 mg PO BID 07/12/21 07/12/21 Unknown History traZODone [Desyrel] 50 mg PO HS 07/12/21 07/12/21 Unknown History Active Meds: Active Medications Acetaminophen (Acetaminophen 325 Mg Tab) 650 mg PO Q4H PRN PRN Reason: Pain MILD(1-3)/Fever >100.5/COWART Last Admin: 07/13/21 00:51 Dose: 650 mg Documented by: Acetaminophen (Acetaminophen 650 Mg Rect Supp) 650 mg MA Q4H PRN PRN Reason: Pain, Mild (1-3) Last Admin: 07/12/21 03:52 Dose: 650 mg Documented by: Albuterol (Albuterol 2.5 Mg/3 Ml Nebu) 2.5 mg IH Q4HRT PRN PRN Reason: Shortness Of Breath Amiodarone HCl (Amiodarone 200 Mg Tab) 200 mg PO BID [facility] Last Admin: 07/14/21 21:24 Dose: 200 mg Documented by: Lipase/Protease/Amylase (Lipase 10,500/Protease 25,000/Amylase 43,750 (Units) Dr Thomas) 1 each FEEDTUBE PRN PRN PRN Reason: For Clogged Feeding Tube Atorvastatin Calcium (Atorvastatin 40 Mg Tab) 80 mg PO QHS [facility] Last Admin: 07/14/21 21:24 Dose: 80 mg Documented by: Clopidogrel Bisulfate (Clopidogrel 75 Mg Tab) 75 mg PO QDAY [facility] Last Admin: 07/14/21 09:00 Dose: 75 mg Documented by: Dextrose (Dextrose 50% In Water (25gm) 50 Ml Syringe) 50 ml IV Q30MIN PRN; Protocol PRN Reason: Hypoglycemia Famotidine (Famotidine 20 Mg/2 Ml Inj) 10 mg IV BID [facility] Last Admin: 07/14/21 21:23 Dose: 10 mg Documented by: Fentanyl (Fentanyl 100 Mcg/2 Ml Inj) 50 mcg IV Q2H PRN PRN Reason: CPOT > 2 Last Admin: 07/15/21 15:28 Dose: 50 mcg Documented by: Heparin Sodium (Porcine) (Heparin 5,000 Unit/1 Ml Vial) 5,000 unit SUB-Q Q12HR [facility] Last Admin: 07/14/21 21:28 Dose: 5,000 unit Documented by: Hydralazine HCl (Hydralazine 20 Mg/1 Ml Inj) 10 mg IV Q6H PRN PRN Reason: Hypertension Stop: 07/19/21 00:50 Last Admin: 07/15/21 09:02 Dose: 10 mg Documented by: Hydrophilic Ointment (Lip Therapy Vaseline) 1 applic TP Q2HR PRN PRN Reason: Dry Lips Nicardipine HCl 50 mg/ Sodium (Chloride) 250 mls @ 25 mls/hr IV TITR JODI; Protocol Last Titration: 07/12/21 22:30 Dose: 0 mg/hr, 0 mls/hr Documented by: Propofol (Diprivan 10 Mg/Ml) 1,000 mg in 100 mls @ 1.617 mls/hr IV TITR JODI; Protocol Last Admin: 07/15/21 05:45 Dose: 40 mcg/kg/min, 12.936 mls/hr Documented by: Lidocaine HCl/Dextrose (Xylocaine/D5w 2gm/500ml Drip) 2,000 mg in 500 mls @ 15 mls/hr IV DIRECT JODI; Protocol Last Titration: 07/13/21 21:00 Dose: 0 mg/min, 0 mls/hr Documented by: Piperacillin Sod/Tazobactam Sod (Zosyn/Ns 2.25 Gm/50ml) 2.25 gm in 50 mls @ 100 mls/hr IV Q8H JODI; Protocol Last Admin: 07/15/21 01:41 Dose: 100 mls/hr Documented by: Sodium Chloride (Nacl 0.9%) 100 mls @ 999 mls/hr IV GLENDY PRN PRN Reason: Hypotension Amiodarone HCl 900 mg/ (Dextrose) 500 mls @ 33.333 mls/hr IV DIRECT JODI; Protocol Last Admin: 07/14/21 23:45 Dose: 1 mg/min, 33.333 mls/hr Documented by: Insulin Human Lispro (Insulin Lispro 100 Unit/Ml) 0 unit SUB-Q Q6HR JODI; Protocol Last Admin: 07/15/21 06:33 Dose: Not Given Documented by: Isosorbide Dinitrate (Isosorbide Dinitrate 10 Mg Tab) 5 mg PO Q8HR JODI Last Admin: 07/15/21 15:29 Dose: 5 mg Documented by: Metoprolol Tartrate (Metoprolol Tartrate 50 Mg Tab) 25 mg PO TID JODI Last Admin: 07/15/21 15:31 Dose: 25 mg Documented by: Multi-Ingred Cream/Lotion/Oil/Oint (Mineral Oil/Petrolatum, White Ophth Oint 3.5 Gm) 1 applic OU Q4HR PRN PRN Reason: Dry Eye(s) Ondansetron HCl (Ondansetron 4 Mg/2 Ml Inj) 4 mg IV Q8H PRN PRN Reason: Nausea And Vomiting Senna/Docusate Sodium (Sennosides/Docusate Sodium 8.6/50 Mg Tab) 1 tab FEEDTUBE BID [facility] Last Admin: 07/14/21 21:24 Dose: 1 tab Documented by: Simple Syrup (Simple Syrup 15 Ml) 15 ml FEEDTUBE PRN PRN PRN Reason: Hypoglycemia Simple Syrup (Simple Syrup 15 Ml) 30 ml FEEDTUBE PRN PRN PRN Reason: Hypoglycemia Sodium Bicarbonate (Sodium Bicarbonate 325 Mg Tab) 325 mg FEEDTUBE PRN PRN PRN Reason: For Clogged Feeding Tube Sodium Chloride (Sodium Chloride 0.9% 10 Ml Flush Syringe) 10 ml IV BID [facility] Last Admin: 07/14/21 21:28 Dose: 10 ml Documented by: Sodium Chloride (Sodium Chloride 0.9% 10 Ml Flush Syringe) 10 ml IV PRN PRN PRN Reason: LINE FLUSH Review of Systems ROS unobtainable: due to endotracheal tube Physical Examination - Physical Exam Narrative exam: Physical Exam: Constitutional: Intubated, sedated Head, Ears, Nose: Normocephalic, atraumatic. External ears, nose normal Eyes: Conjunctivae/corneas clear. No icterus. No ptosis. Neck: Supple, no meningeal signs Oral: ETT Cardiovascular: S1, S2 normal. Respiratory: Good air entry, clear to auscultation bilaterally GI: Soft, non-tender; bowel sounds normal. No peritoneal signs. Musculoskeletal: No pedal edema, no cyanosis. Skin: No rash or abscess Hem/Lymphatic: No palpable cervical or supraclavicular nodes. No lymphangitis Psych: Sedated Neurological: Sedated - Constitutional Vitals: Vital Signs Temp Pulse Resp BP Pulse Ox 98.9 F 70 16 198/78 100 07/15/21 12:10 07/15/21 15:33 07/15/21 15:33 07/15/21 15:33 07/15/21 15:33 Temperature -Last 24 Hours Temperature 98.9 F Temperature 98.4 F Temperature 99.5 F Temperature 100.5 F Temperature 98.2 F Results - Labs CBC & Chem 7: 07/15/21 05:33 07/15/21 05:33 Labs: Abnormal lab results 07/14/21 07/15/21 07/15/21 Range/Units 17:33 00:12 03:31 MCH (28-32) pg RDW (13.2-15.2) % ABG pH 7.540 H (7.320-7.450) POC ABG pCO2 24.7 L (32.0-48.0) mmHg POC ABG pO2 157.6 H (83-108) mmHg ABG Hemoglobin 10.6 L (12.0-17.5) ABG Oxyhemoglobin 99.2 H (94-98) ABG Sodium 129.9 L (136.0-145.0) mmol/L ABG Potassium 3.2 L (3.40-4.50) mmol/L ABG Chloride 91.0 L (98-107) mmol/L ABG Glucose 135 H (65-95) mg/dL Carboxyhemoglobin 0 L (0.5-1.5) Sodium (137-145) mmol/L Potassium (3.6-5.0) mmol/L Chloride (98-107) mmol/L Carbon Dioxide (22-30) mmol/L BUN (7-17) mg/dL Creatinine (0.6-1.2) mg/dL Glucose (65-100) mg/dL POC Glucose 106 H 129 H (70-105) mg/dL Calcium (8.4-10.2) mg/dL Phosphorus (2.5-4.5) mg/dL Magnesium (1.7-2.3) mg/dL Triglycerides (2-149) mg/dL Arterial Blood Glucose 135 H (65-95) mg/dL 07/15/21 07/15/21 07/15/21 Range/Units 05:02 05:33 05:33 MCH 25 L (28-32) pg RDW 16.3 H (13.2-15.2) % ABG pH (7.320-7.450) POC ABG pCO2 (32.0-48.0) mmHg POC ABG pO2 (83-108) mmHg ABG Hemoglobin (12.0-17.5) ABG Oxyhemoglobin (94-98) ABG Sodium (136.0-145.0) mmol/L ABG Potassium (3.40-4.50) mmol/L ABG Chloride (98-107) mmol/L ABG Glucose (65-95) mg/dL Carboxyhemoglobin (0.5-1.5) Sodium (137-145) mmol/L Potassium (3.6-5.0) mmol/L Chloride (98-107) mmol/L Carbon Dioxide (22-30) mmol/L BUN (7-17) mg/dL Creatinine (0.6-1.2) mg/dL Glucose (65-100) mg/dL POC Glucose 118 H (70-105) mg/dL Calcium (8.4-10.2) mg/dL Phosphorus (2.5-4.5) mg/dL Magnesium (1.7-2.3) mg/dL Triglycerides 329 H (2-149) mg/dL Arterial Blood Glucose (65-95) mg/dL 07/15/21 Range/Units 05:33 MCH (28-32) pg RDW (13.2-15.2) % ABG pH (7.320-7.450) POC ABG pCO2 (32.0-48.0) mmHg POC ABG pO2 (83-108) mmHg ABG Hemoglobin (12.0-17.5) ABG Oxyhemoglobin (94-98) ABG Sodium (136.0-145.0) mmol/L ABG Potassium (3.40-4.50) mmol/L ABG Chloride (98-107) mmol/L ABG Glucose (65-95) mg/dL Carboxyhemoglobin (0.5-1.5) Sodium 129 L (137-145) mmol/L Potassium 3.2 L (3.6-5.0) mmol/L Chloride 87.5 L (98-107) mmol/L Carbon Dioxide 20 L (22-30) mmol/L BUN 49 H (7-17) mg/dL Creatinine 5.7 H (0.6-1.2) mg/dL Glucose 115 H (65-100) mg/dL POC Glucose (70-105) mg/dL Calcium 10.6 H (8.4-10.2) mg/dL Phosphorus 5.10 H D (2.5-4.5) mg/dL Magnesium 2.90 H (1.7-2.3) mg/dL Triglycerides (2-149) mg/dL Arterial Blood Glucose (65-95) mg/dL Assessment and Plan Cultures: Blood culture 07/13/2021 no growth so far Blood culture 07/12/2021 no growth so far Blood culture 07/10/2021 no growth so far Sputum culture 07/12/2021 no growth so far A/P: 60 yo F PMhx HTN, CVA, DM2, ESRD on HD, pacemaker in place, CAD, CHF now with: #Acute hypoxic respiratory failure: likely volume overload, currently on the vent. #SIRS/Sepsis: unclear source. Possibly some central in nature. Cultures all negative thus far. #ESRD on HD: renally dose antibiotics Recs: -Check urinalysis -Stopped Zosyn -Start meropenem for short course therapeutc trial. -Fevers may have some central anture. Thank you for the consult, we will continue to follow. MD Alfonzo O[facility] O: [phone] F: [phone]
[2021-07-15] MEDS: AMIODARONE 200 MG TAB PO SCH ×2 (17:59→21:14)
[2021-07-15] MEDS ORDERED: MEROPENEM/NS 500 MG/50 ML 500 MG/50 ML BAG IV SCH (18:00)
[2021-07-15] MEDS: CLOPIDOGREL 75 MG TAB PO SCH (18:01)
[2021-07-15] MEDS: HEPARIN 5,000 UNIT/1 ML VIAL SUB-Q SCH ×2 (18:01→21:16)
[2021-07-15] MEDS: SENNOSIDES/DOCUSATE SODIUM 8.6/50 MG TAB FEEDTUBE SCH ×2 (18:01→21:17)
[2021-07-15] MEDS: FAMOTIDINE 20 MG/2 ML INJ IV SCH ×2 (18:02→21:17)
--- NOTE | 2021-07-15 18:46 | Procedure Note ---
<ADA FERNANDEZ - Last Filed: 07/15/21 18:47> Date of procedure: 07/15/21 Pre-op diagnosis: S/p Cardiac Arrest Post-op diagnosis: same Procedure: Central Line Placement Patient was evaluated and required Central line placement. This is an emergent procedure A time-out was completed verifying correct patient, procedure, site, and positioning. Hand hygiene were performed immediately prior to the procedure and sterile technique was used throughout the procedure. The patient's left groin was prepped with chlorhexidine scrubs then draped in a sterile fashion. 1% Lidocaine was used to anesthetize the surrounding skin area. Ultrasound was utilized to localize the left femoral vein without difficulty. Utilizing the Seldinger technique the femoral femoral vein was accessed using ultrasound guidance. The catheter threaded smoothly over the guidewire and easily advanced into the vein and brisk blood return observed from each lumen. Each lumen were flushed and clamped, then the catheter was sutured in place and covered with a sterile dressing. Patient tolerated the procedure well, no signs of any adverse reaction noted. Central line is ready to use. Total Time Spent with Patient (Minutes): 40 minutes Anesthesia: local Surgeon: ADA FERNANDEZ (Supervised by Dr. Felix) Estimated blood loss: minimal Condition: critical Disposition: ICU <KELLE FELIX - Last Filed: 07/18/21 09:24> Procedure: I was there and supervised the entire procedure
--- NOTE | 2021-07-15 20:51 | Discharge Summary ---
Providers - Providers Date of Admission: 07/11/21 00:00 Attending physician: OUMAR BRENNAN MD 07/10/21 23:45 Consult to Physician [CONS] Stat Comment: Consulting Provider: LAURO FERNÁNDEZ Physician Instructions: Reason For Exam: volume overload 07/11/21 00:55 Consult to Dietitian/Nutrition [CONS] Routine Physician Instructions: Reason For Exam: Reason for Consult: Diet education 07/11/21 16:07 Consult to Physician [CONS] Urgent Comment: Consulting Provider: KELLE CORADO Physician Instructions: Reason For Exam: Acute respiratory failure 07/11/21 16:49 Consult to Cardiology [CONS] Urgent Consulting Provider: RIANA YEBOAH Reason For Exam: Decompensated heart failure 07/12/21 20:55 Consult to Dietitian/Nutrition [CONS] Routine Physician Instructions: tube feeding Reason For Exam: Reason for Consult: Evaluate nutritional intake 07/13/21 00:06 Consult to PICC Line RN [CONS] Stat Reason For Exam: insert iv access, emergent meds per iv team Type Line:: PICC 07/13/21 11:54 Consult to Physician [CONS] Routine Comment: Consulting Provider: RIANNA ROBLEDO Physician Instructions: Reason For Exam: Sepsis Primary care physician: MARKETING INSTRUCTOR Hospitalization Condition: Fair Hospital course: 60-year-old female with PMH of CAD, [place], prolonged QT interval, ventricular tachycardia, cardiac arrest x1, AICD, severe hypertension, chronic diastolic heart failure, ESRD on hemodialysis, DM, CVA was living with her daughter in [facility] but relocated to [place] 2 weeks ago. 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. She is compliant with her hemodialysis on T/T/S since moved here. Last dialysis was Thursday, day before yesterday. Patient presented to ED via EMS composition floor layer of 07/10/2021 with worsening dyspnea since 2 days. Reportedly, O2 sats 84% on room air and placed on 3 L of O2. In ED, CBC unremarkable, lactic acid normal, chemistry unremarkable for a dialysis patient, BNP 45, 746 and a chest x-ray showed acute CHF changes. Troponin 0 0.036 and 0.037. Patient was admitted and her hospital course was [place] with recurrent ventricular tachycardia with resultant AICD firings along with pacing. She was started on a IV amiodarone as well as IV lidocaine. She was encephalopathic from a acute hypoxic respiratory failure due to pulmonary edema induced by ventricular tachycardia. Patient was placed on ventilator for ventricular tachycardia storm which could not be controlled with amiodarone and lidocaine. Subsequently, ventricular tachycardia storm much improved except occasional transient spells of VT. Monitor showed 100% pacing with frequent pacer capture failure. Pulmonary edema resolved with hemodialysis. Patient maintained hemodynamic stability. Echocardiogram surprisingly unremarkable with normal LV function, 55 to 60% without any significant wall motion abnormalities. Subsequently patient underwent left heart cath on 07/15/2021 which showed patent stents in LAD, ostial and proximal left circumflex with 70 to 80% ostial in- stent stenosis but with MADHU-3 flow throughout the left system. Right coronaries without significant disease. Left ventriculogram not performed. Cardiac felt that the etiology of ventricular tachycardia likely not ischemic since has MADHU-3 flow throughout. Cardiology made arrangements for patient to be transferred to [place] intubated for possible ablation to prevent recurrent ventricular tachycardia. A femoral central line was placed on 09/15/2020 for adequate access. Patient remains lightly sedated on ventilator needing only FiO2 of 30%. Hemodynamically stable for transfer. Patient remains on amiodarone but lidocaine was discontinued earlier. Assessment: Recurrent ventricular tachycardia/storm Acute systolic heart failure and pulmonary edema due to frequent ventricle tachycardia Echocardiogram unremarkable with a normal in size, LVEF 55 to 6% and no significant wall motion abnormalities. No significant valvular disease Left heart cath on 07/15 showed patent multiple stents except one stent stenosis but with MADHU III flow throughout. Ischemia consult not to the etiology of frequent ventricular tachycardia ESRD on hemodialysis but compliant with the dialysis, T/T/S Troponins borderline/normal/flat Fever without leukocytosis, thought to be from aspiration since patient was encephalopathic Fever resolved with empiric vancomycin and Zosyn, subsequently vancomycin discontinued on 07/14 Fever recurred on 07/15 of vancomycin Severe hypertension with known history History of DM History of CVA Home medications as per daughter: Clonidine, hydralazine, nifedipine, aspirin, Plavix, Advil statin, calcitriol, gabapentin, isosorbide, labetalol, losartan, and minoxidil. She also takes tumor medication related to renal failure. Disposition: 30 STILL A PATIENT Final Discharge Diagnosis (Prints w/discharge instructions): Recurrent ventricular tachycardia/storm. Acute systolic heart failure and pulmonary edema due to frequent ventricle tachycardia. Echocardiogram unremarkable with a normal in size, LVEF 55 to 6% and no significant wall motion abnormalities. No significant valvular disease. Left heart cath on 07/15 showed patent multiple stents except one stent stenosis but with MADHU III flow throughout. Ischemia consult not to the etiology of frequent ventricular tachycardia. ESRD on hemodialysis but compliant with the dialysis, T/T/S. Troponins borderline/normal/flat. Fever without leukocytosis, thought to be from aspiration since patient was encephalopathic. Severe hypertension with known history. History of DM. History of CVA Core Measure Documentation - Palliative Care Palliative Care/ Comfort Measures: Not Applicable - Core Measures Any of the following diagnoses?: heart failure - Heart Failure Discharge Requirements HEIDE/ARB for LVSD if EF <40%: Not Applicable Beta kathy at discharge: Yes Exam - Constitutional Vitals: Temp Pulse Resp BP Pulse Ox 97.5 F L 70 16 154/79 100 07/15/21 20:00 07/15/21 20:15 07/15/21 20:15 07/15/21 20:15 07/15/21 20:15 General appearance: Present: other (Sedated on ventilator) - EENT Eyes: Present: PERRL - Neck Neck: Present: supple - Respiratory Respiratory effort: normal Respiratory: bilateral: CTA - Cardiovascular Rhythm: regular - Extremities Extremities: No edema - Abdominal General gastrointestinal: Present: soft, non-tender, non-distended, normal bowel sounds - Integumentary Integumentary: Absent: rash - Neurologic Neurologic: moves all extremities, other (Sedated on ventilator) Plan Activity: other (Patient is on ventilator) Diet: other (Tube feeds)
[2021-07-15 23:25] VITALS: BP 142/72
== END 2021-07-15 23:29 | disposition home or self-care (01) | DRG 286 ==
LOC: ED 21:36 → 4A 07-11 → 3A 07-11 01:17 → CC1 07-11 18:50
PROVIDERS: ADMIT Hospitalist; ATTEND Internal Medicine
PROC: 4A033R1 Measurement of Arterial Saturation, Peripheral, Percutaneous Approach (ICD-10-PCS; 2021-07-11)
PROC: 5A1D70Z Performance of Urinary Filtration, Intermittent, Less than 6 Hours Per Day (ICD-10-PCS; 2021-07-11)
PROC: 5A1945Z Respiratory Ventilation, 24-96 Consecutive Hours (ICD-10-PCS; principal; 2021-07-12)
PROC: 0BH17EZ Insertion of Endotracheal Airway into Trachea, Via Natural or Artificial Opening (ICD-10-PCS; 2021-07-12)
PROC: 5A1D70Z Performance of Urinary Filtration, Intermittent, Less than 6 Hours Per Day (ICD-10-PCS; 2021-07-12)
PROC: 5A1D70Z Performance of Urinary Filtration, Intermittent, Less than 6 Hours Per Day (ICD-10-PCS; 2021-07-13)
PROC: 4A023N7 Measurement of Cardiac Sampling and Pressure, Left Heart, Percutaneous Approach (ICD-10-PCS; 2021-07-15)
PROC: B2111ZZ Fluoroscopy of Multiple Coronary Arteries using Low Osmolar Contrast (ICD-10-PCS; 2021-07-15)
PROC: B2151ZZ Fluoroscopy of Left Heart using Low Osmolar Contrast (ICD-10-PCS; 2021-07-15)
PROC: 06HN33Z Insertion of Infusion Device into Left Femoral Vein, Percutaneous Approach (ICD-10-PCS; 2021-07-15)
PROC: B54CZZA Ultrasonography of Left Lower Extremity Veins, Guidance (ICD-10-PCS; 2021-07-15)
DX: I47.2 Ventricular tachycardia (principal); A41.9 Sepsis, unspecified organism; N18.6 End stage renal disease; J96.01 Acute respiratory failure with hypoxia; I50.21 Acute systolic (congestive) heart failure; I13.2 Hypertensive heart and chronic kidney disease with heart failure and with stage 5 chronic kidney disease, or end stage renal disease; E87.1 Hypo-osmolality and hyponatremia; E87.2 Acidosis; G93.40 Encephalopathy, unspecified; E11.22 Type 2 diabetes mellitus with diabetic chronic kidney disease; Z99.2 Dependence on renal dialysis; Z91.15 Patient's noncompliance with renal dialysis; E78.5 Hyperlipidemia, unspecified; I25.10 Atherosclerotic heart disease of native coronary artery without angina pectoris; E87.8 Other disorders of electrolyte and fluid balance, not elsewhere classified; R50.9 Fever, unspecified; E87.6 Hypokalemia
CPT/HCPCS: 36415; 36600; 70450; 71045; 74018; 80048; 80053; 80061; 80074; 80202; 82140; 82550; 82803; 82805; 82962; 83735; 83880; 84100; 84132; 84145; 84436; 84439; 84443; 84478; 84481; 84484; 85025; 85027; 85610; 85730; 87040; 87205; 93005; 93306; 93454; 94002; 94003; 94640; 94660; 94760; G0378; J1815; J3490; J7060; J7121; Q0162; C1894; J0171; J0282; J0360; J0456; J0461; J0696; J1170; J1644; J2001; J2060; J2250; J2270; J2370; J2543; J2704; J3010; J3370; J3475; J3480; J7030; J7040; J7050; Q9967; U0003

== ENCOUNTER 2021-08-05 15:39 | Inpatient (IN) | payer MEDICARE ==
[2021-08-05] MEDS ORDERED: AMIODARONE 150 MG in DEXTROSE 5% IN WATER 97 ML IV ONE (15:48)
[2021-08-05] MEDS ORDERED: AMIODARONE 900 MG in DEXTROSE 5% IN WATER 482 ML IV SCH (16:00)
[2021-08-05 16:30] LABS: Hematocrit 23.8 % (30.3-42.9); Hemoglobin 7.5 gm/dl (10.1-14.3); Mean Corpuscular HGB Conc 31 % (30-34); Mean Corpuscular Volume 80 fl (79-97); Platelet Count 134 K/mm3 (140-440); Red Blood Count 2.98 M/mm3 (3.65-5.03); Red Cell Distribution Width 18.9 % (13.2-15.2)
[2021-08-05] MEDS ORDERED: SUCCINYLCHOLINE CHLORIDE 200 MG/10 ML INJ MDV ONE (16:36)
[2021-08-05] MEDS ORDERED: ROCURONIUM 50 MG/5 ML INJ IV ONE (16:37)
[2021-08-05] MEDS ORDERED: LIDOCAINE PF 100 MG/5 ML (CARDIAC SYRINGE) IV ONE ×2 (16:46→17:00)
[2021-08-05] MEDS ORDERED: LIDOCAINE DRIP 2,000 MG/500 ML BAG IV ONE (16:47)
[2021-08-05] MEDS: LIDOCAINE DRIP 2,000 MG/500 ML BAG IV ONE (17:04)
[2021-08-05 17:06] LABS: Albumin 3.5 g/dL (3.9-5); BUN/Creatinine Ratio 3; Blood Urea Nitrogen 9 mg/dL (7-17); Calcium 8.2 mg/dL (8.4-10.2); Hemolysis Index 2
[2021-08-05 17:09] LABS: Alanine Aminotransferase < 5 units/L (7-56)
[2021-08-05] MEDS ORDERED: MINERAL OIL/PETROLATUM, WHITE OPHTH OINT 3.5 GM OU PRN (17:25)
[2021-08-05] MEDS ORDERED: MIDAZOLAM 2 MG/2 ML INJ IV PRN (17:25)
[2021-08-05] MEDS ORDERED: LIP THERAPY VASELINE TP PRN (17:25)
[2021-08-05 17:27] LABS: Chol/HDL Ratio 5.31 %; HDL Cholesterol 32 mg/dL (40-59); LDL Cholesterol,Direct 106 mg/dL (50-130)
[2021-08-05] MEDS ORDERED: POTASSIUM CHLORIDE 10 MEQ 10 MEQ/100 ML BAG IV ONE (17:56)
[2021-08-05] MEDS ORDERED: MIDAZOLAM 100 MG in SODIUM CHLORIDE 0.9% 80 ML IV SCH (18:00)
--- NOTE | 2021-08-05 18:04 | XRay Report ---
XR chest 1V ap INDICATION / CLINICAL INFORMATION: post intubation. COMPARISON: 07/15/2021 FINDINGS: SUPPORT DEVICES: Endotracheal tube terminates at the james.. HEART / MEDIASTINUM: Unchanged. LUNGS / PLEURA: Bilateral airspace disease. Interlobular septal thickening. Right costophrenic sulcal blunting. No pneumothorax. ADDITIONAL FINDINGS: No significant additional findings. IMPRESSION: 1. Low lying endotracheal tube terminates james. Recommend retracting 5 cm for more optimal positio kathleen. 2. Bilateral airspace disease favored versus alveolar edema with a small right pleural effusion. Lexis elate clinically. Signer Name: Luis Angel Abel MD Signed: 08/05/2021 6:00 PM Workstation Name: [id number]
--- NOTE | 2021-08-05 18:06 | Emergency Department Report ---
ED Palpitations HPI - General Chief Complaint: Arrhythmia/Palpitations Stated Complaint: VT Time Seen by Provider: 08/05/21 15:43 Source: EMS Mode of arrival: Stretcher Limitations: Altered Mental Status - History of Present Illness Initial Comments: 60-year-old female with a past medical history of end-stage renal disease, prolonged QT, sustained V. tach causing cardiac arrest, AICD, and anemia presents to the hospital from dialysis center for seizure and V. tach. EMS reports that patient had 2 witnessed seizures and received IV benzo. Patient di d complete her dialysis prior to ED arrival. After ED arrival patient was noted to have episodes of V. tach with repeated AICD shocks. Patient is alert with possible language barrier. Dialysis center [facility] Dr. Gayle Tucker - Related Data Home Medications Medication Instructions Recorded Confirmed Last Taken Icosapent Ethyl [Vascepa] 2 gm PO BID 07/12/21 07/12/21 Unknown Losartan [Cozaar] 25 mg PO BID 07/12/21 07/12/21 Unknown Previous Rx's Medication Instructions Recorded Last Taken Type ALBUTEROL NEB's [Proventil 0.083% 2.5 mg IH Q4HRT PRN nebu 07/15/21 Unknown Rx NEBS] Acetaminophen [Acetaminophen 650 mg FL Q4H PRN supp.rect 07/15/21 Unknown Rx SUPPOS] Acetaminophen [Acetaminophen TAB] 650 mg PO Q4H PRN tablet 07/15/21 Unknown Rx Amiodarone [Cordarone 200 MG TAB] 200 mg PO BID tablet 07/15/21 Unknown Rx AtorvaSTATin [Lipitor] 80 mg PO QHS tablet 07/15/21 Unknown Rx Clopidogrel [Plavix] 75 mg PO QDAY tablet 07/15/21 Unknown Rx Dextrose 50% in Water [D50W (25GM) 50 ml IV Q30MIN PRN syringe 07/15/21 Unknown Rx Syringe] Free Water 60 ml PO Q4HR oral.liqd 07/15/21 Unknown Rx Isosorbide Dinitrate [Isordil] 5 mg PO Q8HR tablet 07/15/21 Unknown Rx Lipase/Protease/Amylase [Pancreaze 1 each FEEDTUBE PRN PRN capsule 07/15/21 Unknown Rx 10,500 Unit] Lispro Insulin [HumaLOG] 0 unit SUB-Q Q6HR units 07/15/21 Unknown Rx Metoprolol [Lopressor TAB] 25 mg PO TID tablet 07/15/21 Unknown Rx Simple Syrup 30 ml FEEDTUBE PRN PRN oral.liqd 07/15/21 Unknown Rx hydrALAZINE [Apresoline INJ] 10 mg IV Q6H PRN vial 07/15/21 Unknown Rx Allergies Allergy/AdvReac Type Severity Reaction Status Date / Time No Known Allergies Allergy Unverified 07/10/21 20:57 ED Review of Systems ROS: Stated complaint: VT Other details as noted in HPI Comment: All other systems reviewed and negative ED Past Medical Hx - Past Medical History Hx Hypertension: Yes Hx CVA: Yes Hx Diabetes: Yes Hx Renal Disease: Yes (ESRD with Hemodialysis) Hx Headaches / Migraines: Yes Hx Seizures: Yes Additional medical history: HD access Left arm HD T,TH,Sat. Anemia in chronic disease, CAD, Fluid Overload, Hyperlipidemia, Hypokalemia, Hyperparathyroidism - Social History Smoking Status: Unknown if ever smoked - Medications Home Medications: Home Medications Medication Instructions Recorded Confirmed Last Taken Type Icosapent Ethyl [Vascepa] 2 gm PO BID 07/12/21 07/12/21 Unknown History Losartan [Cozaar] 25 mg PO BID 07/12/21 07/12/21 Unknown History ALBUTEROL NEB's [Proventil 0.083% 2.5 mg IH Q4HRT PRN nebu 07/15/21 Unknown Rx NEBS] Acetaminophen [Acetaminophen 650 mg FL Q4H PRN supp.rect 07/15/21 Unknown Rx SUPPOS] Acetaminophen [Acetaminophen TAB] 650 mg PO Q4H PRN tablet 07/15/21 Unknown Rx Amiodarone [Cordarone 200 MG TAB] 200 mg PO BID tablet 07/15/21 Unknown Rx AtorvaSTATin [Lipitor] 80 mg PO QHS tablet 07/15/21 Unknown Rx Clopidogrel [Plavix] 75 mg PO QDAY tablet 07/15/21 Unknown Rx Dextrose 50% in Water [D50W (25GM) 50 ml IV Q30MIN PRN syringe 07/15/21 Unknown Rx Syringe] Free Water 60 ml PO Q4HR oral.liqd 07/15/21 Unknown Rx Isosorbide Dinitrate [Isordil] 5 mg PO Q8HR tablet 07/15/21 Unknown Rx Lipase/Protease/Amylase [Pancreaze 1 each FEEDTUBE PRN PRN capsule 07/15/21 U nknown Rx 10,500 Unit] Lispro Insulin [HumaLOG] 0 unit SUB-Q Q6HR units 07/15/21 Unknown Rx Metoprolol [Lopressor TAB] 25 mg PO TID tablet 07/15/21 Unknown Rx Simple Syrup 30 ml FEEDTUBE PRN PRN oral.liqd 07/15/21 Unknown Rx hydrALAZINE [Apresoline INJ] 10 mg IV Q6H PRN vial 07/15/21 Unknown Rx ED Physical Exam - General Limitations: Altered Mental Status - Other Other exam information: General moderate distress: No acute distress Head: Atraumatic Eyes: normal appearance ENT: Moist mucous membranes Neck: Normal appearance, no midline tenderness Chest: Clear to auscultation bilaterally CV: Intermittent V. tach on the monitor with tachycardia and AICD shocks no, left upper arm dialysis access with positive thrill Abdomen: Soft, normal bowel sounds, nontender, nondistended, no rebound or guarding Back: Normal inspection Extremity: Normal inspection, full range of motion Neuro: Alert, no gross motor deficit ED Course Vital Signs 08/05/21 08/05/21 15:46 17:15 Pulse Rate 222 H 76 Respiratory 22 Rate Blood Pressure 203/79 Blood Pressure 158/98 [Right] O2 Sat by Pulse 94 100 Oximetry - Consultations Consultation #1: 08/05/21 16: 40 Case discussed with on-call pyrometer mechanic for [facility] Dr. Patel. Recommends intubation to decrease catecholamine response and a lidocaine drip to control V. tach episodes since she continues to have V. tach despite amiodarone bolus and drip 08/05/[address] Johnson since he was involved in patient's care during recent admission. Since patient's efficiency manager is Dr. Rogers recommends going to on-call physician. Therefore case discussed with Dr. Conway who recommends IV potassium and will consult on pt 08/05/21 18:59 Case was discussed with Dr. Felix critical care attending. Consult ordered - Central Line Placement Right Femoral Consent Obtained: emergent situation Time Out Performed: Yes Patient Placed on Monitor/Pulse Ox: Yes MD Prep: mask, gown, gloves Central Line Prep: Chlorhexidine scrub Local Anesthesia Used: Lidocaine 1% Amount of Anesthesia Used (mls): 5 Ultrasound Used for Placement: No Central Line Lumen Inserted: triple Reason for Insertion: Emergency Venous Access Bloods Obtained for Lab: Yes Central Line Position: good blood return, sutured in place with nyl Dressing Applied: Tegaderm Post Procedure X-Ray: tip of catheter in good p Patient Tolerated Procedure: well Complications: none - Intubation Time Out Performed: Yes Sedative: Etomidate Mg Given: 20 Paralytic: Succinylcholine Mg Given: 100 Laryngoscope: fiberoptic video scope Size: 2 ET Tube Size: 6.5 Tube Secured Depth (cm): 21 Tube Secured Location: lips Tube Placement Confirmation: visualized tube passing t, equal breath sounds bilat, no breath sounds over epi, confirmation by capnometr Patient Tolerated Procedure: well, no complications Intubation Complications: none Additional Comments: ET tube pulled back to 19 cm after chest x-ray reviewed Patient had a small mouth with a very anterior airway therefore a smaller MAC glidescope blade and ET tube was used to intubate patient ED Medical Decision Making - Lab Data Result diagrams: 08/05/21 15:55 08/05/21 15:55 Lab Results 08/05/21 08/05/21 Range/Units 15:55 15:55 WBC 3.7 L (4.5-11.0) K/mm3 RBC 2.98 L (3.65-5.03) M/mm3 Hgb 7.5 L (10.1-14.3) gm/dl Hct 23.8 L (30.3-42.9) % MCV 80 (79-97) fl MCH 25 L (28-32) pg MCHC 31 (30-34) % RDW 18.9 H (13.2-15.2) % Plt Count 134 L (140-440) K/mm3 Patrick % (Auto) Solar Phot[employer]oltaic Designer Sodium 140 (137-145) mmol/L Potassium 2.7 L* (3.6-5.0) mmol/L Chloride 93.8 L (98-107) mmol/L Carbon Dioxide 33 H (22-30) mmol/L Anion Gap 16 mmol/L BUN 9 (7-17) mg/dL Creatinine 2.8 H (0.6-1.2) mg/dL Estimated GFR 21 ml/min BUN/Creatinine Ratio 3 % Glucose 124 H (65-100) mg/dL Calcium 8.2 L (8.4-10.2) mg/dL Magnesium 1.80 (1.7-2.3) mg/dL Total Bilirubin 0.40 (0.1-1.2) mg/dL AST 15 (5-40) units/L ALT < 5 L (7-56) units/L Alkaline Phosphatase 103 (35-129) units/L Troponin T 0.126 H* (0.00-0.029) ng/mL Total Protein 6.4 (6.3-8.2) g/dL Albumin 3.5 L (3.9-5) g/dL Albumin/Globulin Ratio 1.2 % Triglycerides 202 H (2-149) mg/dL Cholesterol 170 (50-199) mg/dL LDL Cholesterol Direct 106 (50-130) mg/dL HDL Cholesterol 32 L (40-59) mg/dL Cholesterol/HDL Ratio 5.31 % - EKG Data -: EKG Interpreted by Me (Anterior infarct) EKG shows normal: sinus rhythm, intervals (Prolonged QTC 712), QRS complexes (Normal QRS duration), ST-T waves (No STEMI. Inferior T wave inversions) Rate: normal - EKG Data When compared to previous EKG there are: changes noted - Radiology Data Radiology results: report reviewed XR chest 1V ap INDICATION / CLINICAL INFORMATION: post intubation. COMPARISON: 07/15/2021 FINDINGS: SUPPORT DEVICES: Endotracheal tube terminates at the james.. HEART / MEDIASTINUM: Unchanged. LUNGS / PLEURA: Bilateral airspace disease. Interlobular septal thickening. Right costophrenic sulcal blunting. No pneumothorax. ADDITIONAL FINDINGS: No significant additional findings. IMPRESSION: 1. Low lying endotracheal tube terminates james. Recommend retracting 5 cm for more optimal positioning. 2. Bilateral airspace disease favored versus alveolar edema with a small right pleural effusion. Correlate clinically. - Medical Decision Making 60-year-old female presents to the hospital with suspected seizure activity. After arrival it is noted that patient is actually in V. tach with multiple repeated shocks from her defibrillator. Patient treated with amiodarone bolus followed by drip with continued intermittent V. tach activity and AICD discharge. Patient remained responsive and normotensive during episodes. After emergent discussion with Dr. Patel (pyrometer mechanic) he recommended intubation to decrease catecholamine response and lidocaine drip. While prepping for intubation patient did receive 2 lidocaine boluses in an attempt to stop V. tach episodes. There was only temporary cessation of V. tach with recurrent V. tach rhythm. Once patient was intubated V. tach episodes stopped. Lidocaine drip initiated. Central line placed for additional IV access. I also placed a right EJ upon patient arrival due to lack of IV access. Case discussed with cardiology, critical care attending, and nephrology. Patient noted to have a significantly prolonged QT with hypokalemia. IV potassium supplemented. Patient placed on Versed and fentanyl drip (propofol not provided given risk for additional QT prolongation). Case discussed with hospitalist for admission. Patient has elevated troponin level with repeat pending. No signs of ST elevation AK on EKG. EKG was performed after patient was intubated and after V. tach episodes stopped. Critical Care Time: Yes Critical care time in (mins) excluding proc time.: 45 Critical care attestation.: If time is entered above; I have spent that time in minutes in the direct care of this critically ill patient, excluding procedure time. Critical Care Time: 45 Minutes of critical care time excluding procedures were used in the care of the patient. I came immediately to the bedside upon patient's arrival. I obtained history from EMS at the bedside. I discussed treatment plan with the nursing team members. I reviewed electronic record. . Patient required multiple interventions and reassessments. Spoke with pyrometer mechanic, efficiency manager, and critical care attending for collaborative care ED Disposition Clinical Impression: Sustained ventricular tachycardia, Prolonged QT syndrome, End stage renal disease on dialysis, Hypokalemia, Elevated troponin, AICD discharge Disposition: 09 ADMITTED INPATIENT Is pt being admited?: Yes Condition: Stable Time of Disposition: 18:33 (Dr. Rose)
[2021-08-05] MEDS: fentaNYL DRIP Premix 2,000 MCG/100 ML BAG IV SCH (18:18)
[2021-08-05] MEDS ORDERED: ETOMIDATE 20 MG/10 ML INJ IV ONE (18:35)
[2021-08-05] MEDS ORDERED: SUCCINYLCHOLINE CHLORIDE 200 MG/10 ML INJ MDV IV ONE (18:36)
[2021-08-05 19:00] LABS: ABG Base Excess 10.8 mmol/L (-2.0-3.0); ABG HCO3 34.6 mmol/L (20.0-26.0); ABG Methemoglobin 0.6 % (0.0-1.5); ABG Oxygen Saturation 85.4 % (95.0-99.0); ABG PH 7.523 pH Units (7.350-7.450); ABG PO2 47.1 mm Hg (80.0-90.0)
[2021-08-05 20:32] LABS: Anisocytosis Few; Hypochromasia 1+; Total Cells Counted 100
[2021-08-05 20:49] LABS: ABG Base Excess 10.4 mmol/L (-2.0-3.0); ABG HCO3 33.2 mmol/L (20.0-26.0); ABG Methemoglobin 0.6 % (0.0-1.5); ABG Oxygen Saturation 98.9 % (95.0-99.0); ABG PCO2 36.7 mm Hg; ABG PH 7.575 pH Units (7.350-7.450); ABG PO2 142.9 mm Hg (80.0-90.0)
[2021-08-05] MEDS ORDERED: ACETAMINOPHEN 650 MG RECT SUPP PR PRN (20:59)
[2021-08-05] MEDS ORDERED: SIMPLE SYRUP 15 ML FEEDTUBE PRN (20:59)
[2021-08-05] MEDS ORDERED: ALBUTEROL 2.5 MG/3 ML NEBU IH PRN (20:59)
[2021-08-05] MEDS ORDERED: LIPASE 10,500/PROTEASE 25,000/AMYLASE 43,750 (UNITS) DR CAP FEEDTUBE PRN (20:59)
--- NOTE | 2021-08-05 20:59 | History and Physical Report ---
History of Present Illness Date of examination: 08/05/21 Date of admission: 08/05/21 18:33 Chief complaint: Repeated discharges since a.m. History of present illness: 60-year-old female with history of end-stage renal disease on hemodialysis, recurrent AICD discharges, V. tach and cardiac arrest in the past, coronary artery disease and hypertension sent from dialysis center for severe muscle spasms secondary to her AICD discharge as per patient. Dialysis center nurses felt that there were seizures X2 falsely interpreted. In the emergency room patient continued to have multiple AICD discharges secondary to recurrent V. tach. Patient was started on amiodarone and IV lidocaine. Patient was intubated for protection of airway patient is alert and oriented. [facility] under [facility] Gayle Rogers. No shortness, No chest pain. No fever or chills. Last admission was reviewed. Patient was sent for EPS and ablation of abnormal conducting tracts Apparently ablation was not done - Past Medical History --Hypertension: Yes --CVA: Yes --Diabetes: Yes --Renal Disease: Yes (ESRD with Hemodialysis) --Headaches / Migraines: Yes --Seizures: Yes --Additional medical history: HD access Left arm HD T,TH,Sat. Anemia in chronic disease, CAD, Fluid Overload, Hyperlipidemia, Hypokalemia, Hyperparathyroidism -Surgical history --AICD insertion -Family history --HTN - Social History Smoking Status: Unknown if ever smoked Review of Systems ROS: Constitutional no weight loss or weight gain no fever or chills HEENT no sore throat no post nasal drip no diplopia Neck no neck stiffness no lymph gland enlargement Chest and lungs no shortness of breath cough or wheezing CVS recurrent palpitations causing AICD discharge GI no nausea no vomiting no diarrhea Genitourinary system no dysuria no flank pain Musculoskeletal system no muscle pains no joint pains 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 no syncope no seizures Skin no rash no itching Psychiatric no depression no homicidal or suicidal tendencies Hematologic no lymphedema or bruising Endocrine no polydipsia no polyuria no cold intolerance no heat intolerance Medications and Allergies Allergies Allergy/AdvReac Type Severity Reaction Status Date / Time No Known Allergies Allergy Unverified 07/10/21 20:57 Home Medications Medication Instructions Recorded Confirmed Last Taken Type Icosapent Ethyl [Vascepa] 2 gm PO BID 07/12/21 07/12/21 Unknown History Losartan [Cozaar] 25 mg PO BID 07/12/21 07/12/21 Unknown History ALBUTEROL NEB's [Proventil 0.083% 2.5 mg IH Q4HRT PRN nebu 07/15/21 Unknown Rx NEBS] Acetaminophen [Acetaminophen 650 mg ND Q4H PRN supp.rect 07/15/21 Unknown Rx SUPPOS] Acetaminophen [Acetaminophen TAB] 650 mg PO Q4H PRN tablet 07/15/21 Unknown Rx Amiodarone [Cordarone 200 MG TAB] 200 mg PO BID tablet 07/15/21 Unknown Rx AtorvaSTATin [Lipitor] 80 mg PO QHS tablet 07/15/21 Unknown Rx Clopidogrel [Plavix] 75 mg PO QDAY tablet 07/15/21 Unknown Rx Dextrose 50% in Water [D50W (25GM) 50 ml IV Q30MIN PRN syringe 07/15/21 Unknown Rx Syringe] Free Water 60 ml PO Q4HR oral.liqd 07/15/21 Unknown Rx Isosorbide Dinitrate [Isordil] 5 mg PO Q8HR tablet 07/15/21 Unknown Rx Lipase/Protease/Amylase [Pancreaze 1 each FEEDTUBE PRN PRN capsule 07/15/[address] 10,500 Unit] Lispro Insulin [HumaLOG] 0 unit SUB-Q Q6HR units 07/15/21 Unknown Rx Metoprolol [Lopressor TAB] 25 mg PO TID tablet 07/15/21 Unknown Rx Simple Syrup 30 ml FEEDTUBE PRN PRN oral.liqd 07/15/21 Unknown Rx hydrALAZINE [Apresoline INJ] 10 mg IV Q6H PRN vial 07/15/21 Unknown Rx Active Meds: Active Medications Famotidine (Famotidine 20 Mg/2 Ml Inj) 20 mg IV BID JODI Fentanyl (Fentanyl 100 Mcg/2 Ml Inj) 50 mcg IV Q10MIN PRN PRN Reason: ANALGESIA Hydrophilic Ointment (Lip Therapy Vaseline) 1 applic TP Q2HR PRN PRN Reason: Dry Lips Amiodarone HCl 900 mg/ (Dextrose) 500 mls @ 33.333 mls/hr IV DIRECT JODI; Protocol Last Admin: 08/05/21 16:19 Dose: 1 mg/min, 33.333 mls/hr Documented by: Lidocaine HCl/Dextrose (Xylocaine/D5w 2gm/500ml Drip) 2,000 mg in 500 mls @ 15 mls/hr IV DIRECT ONE; Protocol Stop: 08/07/21 02:19 Last Admin: 08/05/21 17:04 Dose: 1 mg/min, 15 mls/hr Documented by: Midazolam HCl 100 mg/ Sodium (Chloride) 100 mls @ 2 mls/hr IV TITR JODI; Protocol Last Admin: 08/05/21 19:41 Dose: 2 mg/hr, 2 mls/hr Documented by: Fentanyl Citrate (Fentanyl Drip Premix) 2,000 mcg in 100 mls @ 3.213 mls/hr IV TITR JODI; Protocol Last Titration: 08/05/21 18:53 Dose: 4 mcg/kg/hr, 12.85 mls/hr Documented by: Midazolam HCl (Midazolam 2 Mg/2 Ml Inj) 2 mg IV Q10MIN PRN PRN Reason: Sedation Multi-Ingred Cream/Lotion/Oil/Oint (Mineral Oil/Petrolatum, White Ophth Oint 3.5 Gm) 1 applic OU Q4HR PRN PRN Reason: Dry Eye(s) Senna/Docusate Sodium (Sennosides/Docusate Sodium 8.6/50 Mg Tab) 1 tab FEEDTUBE BID JODI Exam - Physical Exam Narrative exam: Patient is intubated but alert - Constitutional Vitals: Temp Pulse Resp BP Pulse Ox 70 12 157/100 100 08/05/21 18:44 08/05/21 18:45 08/05/21 18:44 08/05/21 18:45 General appearance: Present: mild distress, well-nourished - EENT Eyes: Present: PERRL ENT: hearing intact, clear oral mucosa - Neck Neck: Present: supple, normal ROM - Respiratory Respiratory effort: normal Respiratory: bilateral: CTA - Cardiovascular Heart rate: 90 Rhythm: regular Heart Sounds: Present: S1 & S2. Absent: rub, click - Extremities Extremities: no ischemia, pulses intact, pulses symmetrical, No edema Peripheral Pulses: within normal limits - Abdominal General gastrointestinal: Present: soft, non-tender, non-distended, normal bowel sounds Female genitourinary: Present: normal - Integumentary Integumentary: Present: clear, warm, dry - Musculoskeletal Musculoskeletal: gait normal, strength equal bilaterally - Psychiatric Psychiatric: appropriate mood/affect, intact judgment & insight - Neurologic Neurologic: CNII-XII intact, moves all extremities - Allied Health Allied health notes reviewed: nursing, case management HEART Score - HEART Score History: Moderately suspicious Age: 45-65 Risk factors: > 3 risk factors or hx of atherosclerotic disease Troponin: Troponin T 0.183 ng/mL (0.00-0.029) H* D 08/05/21 18:56 Troponin: 1-3x normal limit - Critical Actions Critical Actions: 4-6 pts:12-16.6% risk of adverse cardiac event. Should be admitted Results - Labs CBC & Chem 7: 08/06/21 04:29 08/06/21 04:29 Labs: Laboratory Last Values WBC 3.7 K/mm3 (4.5-11.0) L 08/05/21 15:55 RBC 2.98 M/mm3 (3.65-5.03) L 08/05/21 15:55 Hgb 7.5 gm/dl (10.1-14.3) L 08/05/21 15:55 Hct 23.8 % (30.3-42.9) L 08/05/21 15:55 MCV 80 fl (79-97) 08/05/21 15:55 MCH 25 pg (28-32) L 08/05/21 15:55 MCHC 31 % (30-34) 08/05/21 15:55 RDW 18.9 % (13.2-15.2) H 08/05/21 15:55 Plt Count 134 K/mm3 (140-440) L 08/05/21 15:55 [place] % (Auto) Engineering Project Manager 08/05/21 15:55 Add Manual Diff Complete 08/05/21 15:55 Total Counted 100 08/05/21 15:55 Seg Neuts % (Manual) 52.0 % (40.0-70.0) 08/05/21 15:55 Lymphocytes % (Manual) 25.0 % (13.4-35.0) 08/05/21 15:55 Monocytes % (Manual) 18.0 % (0.0-7.3) H 08/05/21 15:55 Eosinophils % (Manual) 3.0 % (0.0-4.3) 08/05/21 15:55 Basophils % (Manual) 2.0 % (0.0-1.8) H 08/05/21 15:55 Nucleated RBC % Not Reportable 08/05/21 15:55 Seg Neutrophils # Man 1.9 K/mm3 (1.8-7.7) 08/05/21 15:55 Band Neutrophils # 0.0 K/mm3 08/05/21 15:55 Lymphocytes # (Manual) 0.9 K/mm3 (1.2-5.4) L 08/05/21 15:55 Abs React Lymphs (Man) 0.0 K/mm3 08/05/21 15:55 Monocytes # (Manual) 0.7 K/mm3 (0.0-0.8) 08/05/21 15:55 Eosinophils # (Manual) 0.1 K/mm3 (0.0-0.4) 08/05/21 15:55 Basophils # (Manual) 0.1 K/mm3 (0.0-0.1) 08/05/21 15:55 Metamyelocytes # 0.0 K/mm3 08/05/21 15:55 Myelocytes # 0.0 K/mm3 08/05/21 15:55 Promyelocytes # 0.0 K/mm3 08/05/21 15:55 Blast Cells # 0.0 K/mm3 08/05/21 15:55 WBC Morphology Not Reportable 08/05/21 15:55 Hypersegmented Neuts Not Reportable 08/05/21 15:55 Hyposegmented Neuts Not Reportable 08/05/21 15:55 Hypogranular Neuts Not Reportable 08/05/21 15:55 Smudge Cells Not Reportable 08/05/21 15:55 Toxic Granulation Not Reportable 08/05/21 15:55 Toxic Vacuolation Not Reportable 08/05/21 15:55 Dohle Bodies Not Reportable 08/05/21 15:55 Pelger-Huet Anomaly Not Reportable 08/05/21 15:55 Claudio Rods Not Reportable 08/05/21 15:55 Platelet Estimate Not Reportable 08/05/21 15:55 Clumped Platelets Not Reportable 08/05/21 15:55 Plt Clumps, EDTA Not Reportable 08/05/21 15:55 Large Platelets Not Reportable 08/05/21 15:55 Giant Platelets Not Reportable 08/05/21 15:55 Platelet Satelliting Not Reportable 08/05/21 15:55 Plt Morphology Comment Not Reportable 08/05/21 15:55 RBC Morphology Not Reportable 08/05/21 15:55 Dimorphic RBCs Not Reportable 08/05/21 15:55 Polychromasia Not Reportable 08/05/21 15:55 Hypochromasia 1+ 08/05/21 15:55 Poikilocytosis Not Reportable 08/05/21 15:55 Anisocytosis Few 08/05/21 15:55 Microcytosis Not Reportable 08/05/21 15:55 Macrocytosis Not Reportable 08/05/21 15:55 Spherocytes Not Reportable 08/05/21 15:55 Pappenheimer Bodies Not Reportable 08/05/21 15:55 Sickle Cells Not Reportable 08/05/21 15:55 Target Cells Not Reportable 08/05/21 15:55 Tear Drop Cells Not Reportable 08/05/21 15:55 Ovalocytes Not Reportable 08/05/21 15:55 Helmet Cells Not Reportable 08/05/21 15:55 [place] Bodies Not Reportable 08/05/21 15:55 Vanduser Rings Not Reportable 08/05/21 15:55 [place] Cells Not Reportable 08/05/21 15:55 Bite Cells Not Reportable 08/05/21 15:55 Crenated Cell Not Reportable 08/05/21 15:55 Elliptocytes Not Reportable 08/05/21 15:55 Acanthocytes (Spur) Not Reportable 08/05/21 15:55 Rouleaux Not Reportable 08/05/21 15:55 Hemoglobin C Crystals Not Reportable 08/05/21 15:55 Schistocytes Not Reportable 08/05/21 15:55 Malaria parasites Not Reportable 08/05/21 15:55 Aleks Bodies Not Reportable 08/05/21 15:55 Hem Pathologist Commnt No 08/05/21 15:55 ABG pH 7.575 pH Units (7.350-7.450) H 08/05/21 Unknown ABG pCO2 36.7 mm Hg 08/05/21 Unknown ABG pO2 142.9 mm Hg (80.0-90.0) H 08/05/21 Unknown ABG HCO3 33.2 mmol/L (20.0-26.0) H 08/05/21 Unknown ABG O2 Saturation 98.9 % (95.0-99.0) 08/05/21 Unknown ABG O2 Content 9.4 (0.0-44) 08/05/21 Unknown ABG Base Excess 10.4 mmol/L (-2.0-3.0) H 08/05/21 Unknown ABG Hemoglobin 6.6 gm/dl (12.0-16.0) L 08/05/21 Unknown ABG Carboxyhemoglobin 1.2 % (0.0-5.0) 08/05/21 Unknown ABG Methemoglobin 0.6 % (0.0-1.5) 08/05/21 Unknown Oxyhemoglobin 97.1 % (95.0-99.0) 08/05/21 Unknown FiO2 100 % 08/05/21 Unknown Sodium 140 mmol/L (137-145) 08/05/21 15:55 Potassium 2.7 mmol/L (3.6-5.0) L* 08/05/21 15:55 Chloride 93.8 mmol/L (98-107) L 08/05/21 15:55 Carbon Dioxide 33 mmol/L (22-30) H 08/05/21 15:55 Anion Gap 16 mmol/L 08/05/21 15:55 BUN 9 mg/dL (7-17) 08/05/21 15:55 Creatinine 2.8 mg/dL (0.6-1.2) H 08/05/21 15:55 Estimated GFR 21 ml/min 08/05/21 15:55 BUN/Creatinine Ratio 3 % 08/05/21 15:55 Glucose 124 mg/dL (65-100) H 08/05/21 15:55 Calcium 8.2 mg/dL (8.4-10.2) L 08/05/21 15:55 Magnesium 1.80 mg/dL (1.7-2.3) 08/05/21 15:55 Total Bilirubin 0.40 mg/dL (0.1-1.2) 08/05/21 15:55 AST 15 units/L (5-40) 08/05/21 15:55 ALT < 5 units/L (7-56) L 08/05/21 15:55 Alkaline Phosphatase 103 units/L (35-129) 08/05/21 15:55 Troponin T 0.183 ng/mL (0.00-0.029) H* D 08/05/21 18:56 Total Protein 6.4 g/dL (6.3-8.2) 08/05/21 15:55 Albumin 3.5 g/dL (3.9-5) L 08/05/21 15:55 Albumin/Globulin Ratio 1.2 % 08/05/21 15:55 Triglycerides 202 mg/dL (2-149) H 08/05/21 15:55 Cholesterol 170 mg/dL (50-199) 08/05/21 15:55 LDL Cholesterol Direct 106 mg/dL (50-130) 08/05/21 15:55 HDL Cholesterol 32 mg/dL (40-59) L 08/05/21 15:55 Cholesterol/HDL Ratio 5.31 % 08/05/21 15:55 Short CBC 08/05/21 08/06/21 Range/Units 15:55 04:29 WBC 3.7 L 2.5 L (4.5-11.0) K/mm3 Hgb 7.5 L 6.8 L (10.1-14.3) gm/dl Hct 23.8 L 21.3 L (30.3-42.9) % Plt Count 134 L 126 L (140-440) K/mm3 BMP 08/05/21 08/06/21 15:55 04:29 Sodium 140 136 L Potassium 2.7 L* 3.0 L Chloride 93.8 L 92.6 L Carbon Dioxide 33 H 32 H BUN 9 15 Creatinine 2.8 H 3.8 H Glucose 124 H 72 Calcium 8.2 L 8.4 Cardiac Enzymes 08/05/21 08/05/21 Range/Units 15:55 18:56 Troponin T 0.126 H* 0.183 H* D (0.00-0.029) ng/mL Liver Function 08/05/21 08/06/21 Range/Units 15:55 04:29 Total Bilirubin 0.40 0.60 (0.1-1.2) mg/dL AST 15 16 (5-40) units/L ALT < 5 L 7 (7-56) units/L Alkaline Phosphatase 103 97 (35-129) units/L Albumin 3.5 L 3.1 L (3.9-5) g/dL - Imaging and Cardiology EKG: report reviewed (V. tach: Repeat EKG normal sinus rhythm 96/min) Assessment and Plan Assessment and plan: Critical care statement The high probability OF a clinically significant sudden or life-threatening deterioration of the cardiorespiratory system and endocrine system required my full and direct attention, intervention and postoperative management. The aggregate critical care time was 40 minutes. The time is in addition to time spent performing reported procedures but includes the followin: Data review and interpretation 2: Patient assessment and monitoring of vital signs 3: Documentation 4:: Medication orders and management Advance Directives: Yes (Full code) VTE prophylaxis?: Chemical Plan of care discussed with patient/family: Yes - Patient Problems (1) Sustained ventricular tachycardia Current Visit: Yes Status: Acute Plan to address problem: Sustained V. tach resulting in multiple AICD discharges Patient initiated on IV amiodarone drip and IV lidocaine drip Patient intubated for protection of airway After intubation V. tach subsided and no further AICD discharges Continue vent management Cardiology and street worker consults requested (2) AICD discharge Current Visit: Yes Status: Acute Plan to address problem: Secondary to V. tach (3) Elevated troponin Current Visit: Yes Status: Acute Plan to address problem: Possible troponin leak Will defer to cardiology regarding heparin drip (4) Hypokalemia Current Visit: Yes Status: Acute Plan to address problem: Severe potassium drip initiated (5) End stage renal disease on dialysis Current Visit: Yes Status: Chronic Plan to address problem: Continue hemodialysis as per schedule Nephrology consulted (6) Hypertension Current Visit: No Status: Chronic Qualifiers: Hypertension type: primary hypertension Qualified Code(s): I10 - Essential (primary) hypertension Plan to address problem: Antihypertensives and adjust medications to keep blood pressure normal (7) Prolonged QT syndrome Current Visit: Yes Status: Chronic Plan to address problem: Defer to cardiology (8) Anemia Current Visit: Yes Status: Chronic Qualifiers: Anemia type: due to chronic kidney disease Plan to address problem: Transfuse as necessary Continue Epogen (9) DVT prophylaxis Current Visit: Yes Status: Acute Plan to address problem: On anticoagulation GI prophylaxis
[2021-08-05] MEDS ORDERED: METOCLOPRAMIDE 10 MG/2 ML INJ IV PRN (21:03)
[2021-08-05] MEDS ORDERED: ONDANSETRON 4 MG/2 ML INJ IV PRN (21:03)
[2021-08-05] MEDS ORDERED: oxyCODONE /ACETAMINOPHEN 5-325MG TAB PO PRN (21:03)
[2021-08-05] MEDS ORDERED: ACETAMINOPHEN 325 MG TAB PO PRN (21:03)
[2021-08-05] MEDS ORDERED: HEPARIN 5,000 UNIT/1 ML VIAL SUB-Q SCH (22:00)
[2021-08-05] MEDS ORDERED: FAMOTIDINE 20 MG TAB PO SCH (22:00)
[2021-08-05] MEDS ORDERED: FAMOTIDINE 20 MG/2 ML INJ IV SCH (22:00)
[2021-08-05] MEDS ORDERED: AMIODARONE 200 MG TAB PO SCH (22:00)
[2021-08-06] MEDS: LOSARTAN 25 MG TAB PO SCH ×3 (01:41→22:06)
[2021-08-06] MEDS: ISOSORBIDE DINITRATE 10 MG TAB PO SCH ×3 (01:41→22:06)
[2021-08-06] MEDS: SENNOSIDES/DOCUSATE SODIUM 8.6/50 MG TAB FEEDTUBE SCH ×2 (01:41→13:35)
[2021-08-06] MEDS: hydrALAZINE 20 MG/1 ML INJ IV PRN ×2 (04:37→16:24)
[2021-08-06 04:40] LABS: ABG Base Excess 11.2 mmol/L (-2.0-3.0); ABG HCO3 33.6 mmol/L (20.0-26.0); ABG Methemoglobin 0.7 % (0.0-1.5); ABG Oxygen Saturation 98.4 % (95.0-99.0); ABG PCO2 34.5 mm Hg; ABG PO2 111.2 mm Hg (80.0-90.0)
[2021-08-06 04:51] LABS: ABG PH 7.606 pH Units (7.350-7.450)
[2021-08-06 04:52] LABS: INR 0.95 (0.87-1.13)
[2021-08-06 04:53] LABS: Partial Thromboplastin Time 38.8 Sec. (24.2-36.6)
[2021-08-06 05:00] LABS: Eosinophils # (Auto) 0.1 K/mm3 (0.0-0.4); Eosinophils % (Auto) 2.3 % (0.0-4.3); Hematocrit 21.3 % (30.3-42.9); Hemoglobin 6.8 gm/dl (10.1-14.3); Lymphocytes # (Auto) 1.1 K/mm3 (1.2-5.4); Mean Corpuscular HGB Conc 32 % (30-34); Mean Corpuscular Volume 79 fl (79-97); Monocytes # (Auto) 0.3 K/mm3 (0.0-0.8); Monocytes % (Auto) 13.6 % (0.0-7.3); Platelet Count 126 K/mm3 (140-440); Red Cell Distribution Width 18.1 % (13.2-15.2)
[2021-08-06 05:01] LABS: Albumin 3.1 g/dL (3.9-5); Basophils % (Auto) 1.8 % (0.0-1.8); Calcium 8.4 mg/dL (8.4-10.2)
[2021-08-06] MEDS ORDERED: SODIUM CHLORIDE 0.9% 500 ML 500 ML IV ONE (05:27)
[2021-08-06] MEDS ORDERED: MAGNESIUM SULFATE 2 GM/50 ML BAG IV SCH (07:00)
[2021-08-06] MEDS ORDERED: HEPARIN 10,000 UNITS/10 ML VIAL IV PRN (07:00)
[2021-08-06] MEDS ORDERED: HEPARIN/ 0.45% NACL DRIP 25,000 UNIT/500 ML BAG IV SCH (07:00)
[2021-08-06 07:54] LABS: Hematocrit 22.5 % (30.3-42.9)
--- NOTE | 2021-08-06 07:59 | Event Note ---
I was called to the bedside. Respiratory therapist found patient hypoxic 84%. Patient also was pulseless. ETT was out of the patient's mouth. Patient received chest compressions while I provided ventilation with Ambu bag. Oxygen saturation 100% with bag mask oral airway ventilation. Without medication, return of spontaneous circulation after approximately 1 minute of chest compressions. Patient did not require ACLS medication. I performed rapid sequence intubation once ROSC was achieved. Procedure note: Patient was induced and paralyzed with 20 mg etomidate and 120 mg of succinylcholine. While awaiting for apnea phase, patient continued to receive ventilation through Ambu bag. I used video laryngoscope Kevan 4 blade with visualization of the vocal cords. I was able to visualize passage of ETT through the vocal cords. Cricoid pressure used to improve visualization. Appropriate color change on CO2 detector with condensation and chest rise. I have ordered repeat potassium level with succinylcholine administration. Patient does have history of end-stage renal disease. Most recent potassium of 3.0. Chest radiograph also ordered.
[2021-08-06 08:07] LABS: INR 0.94 (0.87-1.13)
[2021-08-06 08:08] LABS: Partial Thromboplastin Time 37.1 Sec. (24.2-36.6)
--- NOTE | 2021-08-06 08:23 | Consultation ---
History of Present Illness - Reason for Consult Consult date: 08/06/21 end stage renal disease Requesting physician: DEIRDRE PEDERSEN - History of Present Illness 60-year-old lady with a history of end-stage renal disease, prolonged QT with sustained ventricular tachycardia cardiac arrest in the past, anemia and type II diabetes type 2 sent from hemodialysis due to seizure and ventricular tachycardia. Patient had completed dialysis when she had 2 witnessed seizures was given IV benzodiazepines. She had episodes of ventricular tachycardia repeated AICD shocks. Patient was brought to the ER where she received amiodarone bolus and was started on a drip cardiology recommendation was intubated and sedated. She is on Versed and fentanyl. Earlier this morning, gerardo johnson was found to be hypoxic and somewhat endotracheal tube was out. She was intubated and paralyzed. She was normotensive. I am consulted to assist with providing dialysis and managing her fluid and electrolyte abnormalities. Of note her potassium was as low as 2.7 mmol/L and it increased to 3 mmol/L today. Patient is not able to give a history and so my history is obtained from my review of the records. Past History Past Medical History: anemia, diabetes, renal failure Social history: other (Unable to obtain) Family history: other (Unable to obtain) Medications and Allergies Allergies Allergy/AdvReac Type Severity Reaction Status Date / Time No Known Allergies Allergy Unverified 07/10/21 20:57 Home Medications Medication Instructions Recorded Confirmed Last Taken Type Icosapent Ethyl [Vascepa] 2 gm PO BID 07/12/21 07/12/21 Unknown History Losartan [Cozaar] 25 mg PO BID 07/12/21 07/12/21 Unknown History ALBUTEROL NEB's [Proventil 0.083% 2.5 mg IH Q4HRT PRN nebu 07/15/21 Unknown Rx NEBS] Acetaminophen [Acetaminophen 650 mg LA Q4H PRN supp.rect 07/15/21 Unknown Rx SUPPOS] Acetaminophen [Acetaminophen TAB] 650 mg PO Q4H PRN tablet 07/15/21 Unknown Rx Amiodarone [Cordarone 200 MG TAB] 200 mg PO BID tablet 07/15/21 Unknown Rx AtorvaSTATin [Lipitor] 80 mg PO QHS tablet 07/15/21 Unknown Rx Clopidogrel [Plavix] 75 mg PO QDAY tablet 07/15/21 Unknown Rx Dextrose 50% in Water [D50W (25GM) 50 ml IV Q30MIN PRN syringe 07/15/21 Unknown Rx Syringe] Free Water 60 ml PO Q4HR oral.liqd 07/15/21 Unknown Rx Isosorbide Dinitrate [Isordil] 5 mg PO Q8HR tablet 07/15/21 Unknown Rx Lipase/Protease/Amylase [Pancreaze 1 each FEEDTUBE PRN PRN capsule 07/15/21 Unknown Rx 10,500 Unit] Lispro Insulin [HumaLOG] 0 unit SUB-Q Q6HR units 07/15/21 Unknown Rx Metoprolol [Lopressor TAB] 25 mg PO TID tablet 07/15/21 Unknown Rx Simple Syrup 30 ml FEEDTUBE PRN PRN oral.liqd 07/15/21 Unknown Rx hydrALAZINE [Apresoline INJ] 10 mg IV Q6H PRN vial 07/15/21 Unknown Rx Active Meds: Active Medications Acetaminophen (Acetaminophen 650 Mg Rect Supp) 650 mg LA Q4H PRN PRN Reason: Pain, Mild (1-3) Acetaminophen (Acetaminophen 325 Mg Tab) 650 mg PO Q4H PRN PRN Reason: Pain MILD(1-3)/Fever >100.5/COWART Albuterol (Albuterol 2.5 Mg/3 Ml Nebu) 2.5 mg IH Q4HRT PRN PRN Reason: Shortness Of Breath Lipase/Protease/Amylase (Lipase 10,500/Protease 25,000/Amylase 43,750 (Units) Dr Thomas) 1 each FEEDTUBE PRN PRN PRN Reason: For Clogged Feeding Tube Atorvastatin Calcium (Atorvastatin 40 Mg Tab) 80 mg PO QHS [facility] Last Admin: 08/06/21 01:40 Dose: 80 mg Documented by: Famotidine (Famotidine 20 Mg Tab) 20 mg PO QAM [facility] Last Admin: 08/06/21 01:40 Dose: 20 mg Documented by: Fentanyl (Fentanyl 100 Mcg/2 Ml Inj) 50 mcg IV Q10MIN PRN PRN Reason: ANALGESIA Heparin Sodium (Porcine) (Heparin 10,000 Units/10 Ml Vial) 2,600 unit 40 unit/kg (2600 unit) IV Q6H PRN PRN Reason: Anti-Xa Assay < 0.1 units/ml Hydralazine HCl (Hydralazine 20 Mg/1 Ml Inj) 10 mg IV Q6HR PRN PRN Reason: Hypertension Last Admin: 08/06/21 04:37 Dose: 10 mg Documented by: Hydrophilic Ointment (Lip Therapy Vaseline) 1 applic TP Q2HR PRN PRN Reason: Dry Lips Amiodarone HCl 900 mg/ (Dextrose) 500 mls @ 33.333 mls/hr IV DIRECT JODI; Protocol Last Titration: 08/05/21 22:20 Dose: 0.5 mg/min, 16.667 mls/hr Documented by: Lidocaine HCl/Dextrose (Xylocaine/D5w 2gm/500ml Drip) 2,000 mg in 500 mls @ 15 mls/hr IV DIRECT ONE; Protocol Stop: 08/07/21 02:19 Last Titration: 08/06/21 00:52 Dose: 2 mg/min, 30 mls/hr Documented by: Midazolam HCl 100 mg/ Sodium (Chloride) 100 mls @ 2 mls/hr IV TITR JODI; Protocol Last Titration: 08/06/21 05:56 Dose: 5 mg/hr, 5 mls/hr Documented by: Fentanyl Citrate (Fentanyl Drip Premix) 2,000 mcg in 100 mls @ 3.213 mls/hr IV TITR JODI; Protocol Last Titration: 08/05/21 18:53 Dose: 4 mcg/kg/hr, 12.85 mls/hr Documented by: Potassium Chloride (Kcl 10meq/100ml) 10 meq in 100 mls @ 100 mls/hr IV Q1H JODI Stop: 08/06/21 10:59 Magnesium Sulfate (Magnesium Sulfate 2gm/50ml) 2 gm in 50 mls @ 25 mls/hr IV ONCE@0700 JODI Stop: 08/06/21 11:00 Heparin Sodium/Sodium Chloride (Heparin/ 0.45% Nacl-25,000 Unit/500 Ml) 25,000 unit in 500 mls @ 18 mls/hr IV TITRATE JODI; Protocol Isosorbide Dinitrate (Isosorbide Dinitrate 10 Mg Tab) 5 mg PO Q8HR JODI Last Admin: 08/06/21 01:41 Dose: 5 mg Documented by: Losartan Potassium (Losartan 25 Mg Tab) 25 mg PO BID JODI Last Admin: 08/06/21 01:41 Dose: 25 mg Documented by: Metoclopramide HCl (Metoclopramide 10 Mg/2 Ml Inj) 5 mg IV Q6H PRN PRN Reason: Nausea And Vomiting Metoprolol Tartrate (Metoprolol Tartrate 50 Mg Tab) 25 mg PO TID [facility] Midazolam HCl (Midazolam 2 Mg/2 Ml Inj) 2 mg IV Q10MIN PRN PRN Reason: Sedation Last Admin: 08/06/21 02:09 Dose: 2 mg Documented by: Multi-Ingred Cream/Lotion/Oil/Oint (Mineral Oil/Petrolatum, White Ophth Oint 3.5 Gm) 1 applic OU Q4HR PRN PRN Reason: Dry Eye(s) Ondansetron HCl (Ondansetron 4 Mg/2 Ml Inj) 4 mg IV Q8H PRN PRN Reason: Nausea And Vomiting Oxycodone/Acetaminophen (Oxycodone /Acetaminophen 5-325mg Tab) 1 tab PO Q6H PRN PRN Reason: Pain, Moderate (4-6) Senna/Docusate Sodium (Sennosides/Docusate Sodium 8.6/50 Mg Tab) 1 tab FEEDTUBE BID [facility] Last Admin: 08/06/21 01:41 Dose: 1 tab Documented by: Simple Syrup (Simple Syrup 15 Ml) 30 ml FEEDTUBE PRN PRN PRN Reason: Hypoglycemia Sodium Chloride (Sodium Chloride 0.9% 10 Ml Flush Syringe) 10 ml IV BID [facility] Last Admin: 08/06/21 00:58 Dose: 10 ml Documented by: Sodium Chloride (Sodium Chloride 0.9% 10 Ml Flush Syringe) 10 ml IV PRN PRN PRN Reason: LINE FLUSH Review of Systems ROS unobtainable: due to endotracheal tube, due to mental status Exam - Vital Signs Vital signs: Vital Signs Pulse Resp BP Pulse Ox 222 H 22 158/98 94 08/05/21 15:46 08/05/21 15:46 08/05/21 15:46 08/05/21 15:46 - Physical Exam Narrative exam: Middle-aged lady lying in bed intubated on ventilator HEENT: NCAT, endotracheal tube intact Neck: Supple, no venous distention CVS: S1S2 RRR with no murmur, rub or gallop Chest: Clear to auscultation Abdomen: Protuberant, soft, nontender, no organomegaly, bowel sounds are present Extremities: No edema Genitourinary deferred Skin warm and dry Neuro: Sedated, intubated on ventilator Results - Lab Results 08/06/21 16:35 08/06/21 16:35 Most recent lab results ABG pH 7.606 pH Units (7.350-7.450) H* 08/06/21 04:20 ABG pCO2 34.5 mm Hg 08/06/21 04:20 ABG pO2 111.2 mm Hg (80.0-90.0) H 08/06/21 04:20 ABG HCO3 33.6 mmol/L (20.0-26.0) H 08/06/21 04:20 ABG O2 Saturation 98.4 % (95.0-99.0) 08/06/21 04:20 Calcium 8.4 mg/dL (8.4-10.2) 08/06/21 04:29 Magnesium 1.80 mg/dL (1.7-2.3) 08/05/21 15:55 Assessment and Plan - Patient Problems (1) Hypokalemia Current Visit: Yes Status: Acute Plan to address problem: Supplement potassium aggressively and follow-up levels. Magnesium is repleted. (2) End stage renal disease on dialysis Current Visit: Yes Status: Chronic Plan to address problem: Hemodialysis in the morning and then continue on a Thursday, Thursday and Thursday schedule. (3) Anemia in end-stage renal disease Current Visit: Yes Status: Acute Plan to address problem: Give erythropoietin on dialysis and follow-up hemoglobin level (4) Sustained ventricular tachycardia Current Visit: Yes Status: Acute Plan to address problem: Continue management by kerfer machine operator
[2021-08-06 08:31] LABS: Calcium 8.7 mg/dL (8.4-10.2)
--- NOTE | 2021-08-06 09:41 | Electrocardiograph Report ---
[facility] Test Date: 2021-08-05 Test Time: 17:53:07 Pat Name: BELLA MCKEON Department: Room: [place] [address] Gender: F [employer]: EVITA : 1960 Requested By: DEIRDRE PEDERSEN Order Number: [id number] Reading MD: Boby Lyons Measurements Intervals [place] Rate: 70 P: 72 WI: 142 QRS: 65 QRSD: 94 T: -10 QT: 659 QTc: 712 Interpretive Statements Sinus rhythm Probable anterior infarct, age indeterminate Prolonged QT interval Compared to ECG 07/14/2021 09:56:17 Myocardial infarct finding now present Atrial-paced complex(es) or rhythm no longer present Possible ischemia no longer present Electronically Signed On 08-06-2021 9:41:45 EST by Boby Lyons
--- NOTE | 2021-08-06 09:50 | Consultation ---
History of Present Illness Consult date: 08/06/21 Requesting physician: DEIRDRE PEDERSEN Reason for consult: other (VT STORM) History of present illness: 60 y/o female with known CHF and VT admitted here recently with VT storm, required intubation and transferred to [facility]. Ablation did not happen. Discharged. Readmitted from HD secondary to seizure like activity, however this was most likely shocks from defibrillator. She was electively intubated at request of cards and started on lido drip along with amio drip. Am called by ED nurse that patient had PEA arrest code (rhythm was sinus nam). Per ED note ET tube was out, re-intubated and now stable. Cards interrogated device, no nam but 45 shocks. Past History Past Medical History: other (unable to obtain, only past history I know is in HPI) Past Surgical History: Other (BIV aicd ) Social history: no significant social history Family history: no significant family history Medications and Allergies Allergies Allergy/AdvReac Type Severity Reaction Status Date / Time No Known Allergies Allergy Unverified 07/10/21 20:57 Home Medications Medication Instructions Recorded Confirmed Last Taken Type Icosapent Ethyl [Vascepa] 2 gm PO BID 07/12/21 07/12/21 Unknown History Losartan [Cozaar] 25 mg PO BID 07/12/21 07/12/21 Unknown History ALBUTEROL NEB's [Proventil 0.083% 2.5 mg IH Q4HRT PRN nebu 07/15/21 Unknown Rx NEBS] Acetaminophen [Acetaminophen 650 mg OK Q4H PRN supp.rect 07/15/21 Unknown Rx SUPPOS] Acetaminophen [Acetaminophen TAB] 650 mg PO Q4H PRN tablet 07/15/21 Unknown Rx Amiodarone [Cordarone 200 MG TAB] 200 mg PO BID tablet 07/15/21 Unknown Rx AtorvaSTATin [Lipitor] 80 mg PO QHS tablet 07/15/21 Unknown Rx Clopidogrel [Plavix] 75 mg PO QDAY tablet 07/15/21 Unknown Rx Dextrose 50% in Water [D50W (25GM) 50 ml IV Q30MIN PRN syringe 07/15/21 Unknown Rx Syringe] Free Water 60 ml PO Q4HR oral.liqd 07/15/21 Unknown Rx Isosorbide Dinitrate [Isordil] 5 mg PO Q8HR tablet 07/15/21 Unknown Rx Lipase/Protease/Amylase [Pancreaze 1 each FEEDTUBE PRN PRN capsule 07/15/21 Unknown Rx 10,500 Unit] Lispro Insulin [HumaLOG] 0 unit SUB-Q Q6HR units 07/15/21 Unknown Rx Metoprolol [Lopressor TAB] 25 mg PO TID tablet 07/15/21 Unknown Rx Simple Syrup 30 ml FEEDTUBE PRN PRN oral.liqd 07/15/21 Unknown Rx hydrALAZINE [Apresoline INJ] 10 mg IV Q6H PRN vial 07/15/21 Unknown Rx Active Meds: Active Medications Acetaminophen (Acetaminophen 650 Mg Rect Supp) 650 mg OK Q4H PRN PRN Reason: Pain, Mild (1-3) Acetaminophen (Acetaminophen 325 Mg Tab) 650 mg PO Q4H PRN PRN Reason: Pain MILD(1-3)/Fever >100.5/COWART Albuterol (Albuterol 2.5 Mg/3 Ml Nebu) 2.5 mg IH Q4HRT PRN PRN Reason: Shortness Of Breath Lipase/Protease/Amylase (Lipase 10,500/Protease 25,000/Amylase 43,750 (Units) Dr Thomas) 1 each FEEDTUBE PRN PRN PRN Reason: For Clogged Feeding Tube Atorvastatin Calcium (Atorvastatin 40 Mg Tab) 80 mg PO QHS JODI Last Admin: 08/06/21 01:40 Dose: 80 mg Documented by: Famotidine (Famotidine 20 Mg/2 Ml Inj) 10 mg IV BID JODI Fentanyl (Fentanyl 100 Mcg/2 Ml Inj) 50 mcg IV Q10MIN PRN PRN Reason: ANALGESIA Heparin Sodium (Porcine) (Heparin 10,000 Units/10 Ml Vial) 2,600 unit 40 unit/kg (2600 unit) IV Q6H PRN PRN Reason: Anti-Xa Assay < 0.1 units/ml Hydralazine HCl (Hydralazine 20 Mg/1 Ml Inj) 10 mg IV Q6HR PRN PRN Reason: Hypertension Last Admin: 08/06/21 04:37 Dose: 10 mg Documented by: Hydrophilic Ointment (Lip Therapy Vaseline) 1 applic TP Q2HR PRN PRN Reason: Dry Lips Lidocaine HCl/Dextrose (Xylocaine/D5w 2gm/500ml Drip) 2,000 mg in 500 mls @ 15 mls/hr IV DIRECT ONE; Protocol Stop: 08/07/21 02:19 Last Titration: 08/06/21 00:52 Dose: 2 mg/min, 30 mls/hr Documented by: Midazolam HCl 100 mg/ Sodium (Chloride) 100 mls @ 2 mls/hr IV TITR JODI; Eliud col Last Titration: 08/06/21 05:56 Dose: 5 mg/hr, 5 mls/hr Documented by: Fentanyl Citrate (Fentanyl Drip Premix) 2,000 mcg in 100 mls @ 3.213 mls/hr IV TITR JODI; Protocol Last Titration: 08/05/21 18:53 Dose: 4 mcg/kg/hr, 12.85 mls/hr Documented by: Potassium Chloride (Kcl 10meq/100ml) 10 meq in 100 mls @ 100 mls/hr IV Q1H JODI Stop: 08/06/21 10:59 Magnesium Sulfate (Magnesium Sulfate 2gm/50ml) 2 gm in 50 mls @ 25 mls/hr IV ONCE@0700 JODI Stop: 08/06/21 11:00 Heparin Sodium/Sodium Chloride (Heparin/ 0.45% Nacl-25,000 Unit/500 Ml) 25,000 unit in 500 mls @ 18 mls/hr IV TITRATE JODI; Protocol Isosorbide Dinitrate (Isosorbide Dinitrate 10 Mg Tab) 5 mg PO Q8HR JODI Last Admin: 08/06/21 01:41 Dose: 5 mg Documented by: Losartan Potassium (Losartan 25 Mg Tab) 25 mg PO BID JODI Last Admin: 08/06/21 01:41 Dose: 25 mg Documented by: Metoclopramide HCl (Metoclopramide 10 Mg/2 Ml Inj) 5 mg IV Q6H PRN PRN Reason: Nausea And Vomiting Metoprolol Tartrate (Metoprolol Tartrate 50 Mg Tab) 25 mg PO TID JODI Midazolam HCl (Midazolam 2 Mg/2 Ml Inj) 2 mg IV Q10MIN PRN PRN Reason: Sedation Last Admin: 08/06/21 02:09 Dose: 2 mg Documented by: Multi-Ingred Cream/Lotion/Oil/Oint (Mineral Oil/Petrolatum, White Ophth Oint 3.5 Gm) 1 applic OU Q4HR PRN PRN Reason: Dry Eye(s) Ondansetron HCl (Ondansetron 4 Mg/2 Ml Inj) 4 mg IV Q8H PRN PRN Reason: Nausea And Vomiting Oxycodone/Acetaminophen (Oxycodone /Acetaminophen 5-325mg Tab) 1 tab PO Q6H PRN PRN Reason: Pain, Moderate (4-6) Senna/Docusate Sodium (Sennosides/Docusate Sodium 8.6/50 Mg Tab) 1 tab FEEDTUBE BID [facility] Last Admin: 08/06/21 01:41 Dose: 1 tab Documented by: Simple Syrup (Simple Syrup 15 Ml) 30 ml FEEDTUBE PRN PRN PRN Reason: Hypoglycemia Sodium Chloride (Sodium Chloride 0.9% 10 Ml Flush Syringe) 10 ml IV BID [facility] Last Admin: 08/06/21 00:58 Dose: 10 ml Documented by: Sodium Chloride (Sodium Chloride 0.9% 10 Ml Flush Syringe) 10 ml IV PRN PRN PRN Reason: LINE FLUSH Review of Systems ROS unobtainable: due to endotracheal tube Physical Examination Vital signs: Vital Signs Pulse Resp BP Pulse Ox 222 H 22 158/98 94 08/05/21 15:46 08/05/21 15:46 08/05/21 15:46 08/05/21 15:46 General appearance: no acute distress, other (intubated and sedated) Eyes: non-icteric ENT: other (orally intubated) Neck: supple Effort: normal Ascultation: Bilateral: clear Percussion: Bilateral: not dull Gastrointestinal: soft, non-tender Extremities: no edema Musculoskeletal: no deformities unable to assess Results - Laboratory Findings CBC and BMP: 08/07/21 04:00 08/07/21 04:00 ABG ABG pH 7.606 pH Units (7.350-7.450) H* 08/06/21 04:20 ABG pCO2 34.5 mm Hg 08/06/21 04:20 ABG pO2 111.2 mm Hg (80.0-90.0) H 08/06/21 04:20 ABG O2 Saturation 98.4 % (95.0-99.0) 08/06/21 04:20 PT/INR, D-dimer PT 13.6 Sec. (12.2-14.9) 08/06/21 07:26 INR 0.94 (0.87-1.13) 08/06/21 07:26 Abnormal lab findings: Abnormal Labs 08/05/21 08/05/21 08/05/21 15:55 15:55 18:50 WBC 3.7 L RBC 2.98 L Hgb 7.5 L Hct 23.8 L MCH 25 L RDW 18.9 H Plt Count 134 L Lymph % (Auto) [place] % (Auto) Lymph # (Auto) Seg Neutrophils % Monocytes % (Manual) 18.0 H Basophils % (Manual) 2.0 H Seg Neutrophils # Lymphocytes # (Manual) 0.9 L APTT ABG pH 7.523 H ABG pO2 47.1 L ABG HCO3 34.6 H ABG O2 Saturation 85.4 L ABG Base Excess 10.8 H ABG Hemoglobin 7.3 L Oxyhemoglobin 83.6 L Sodium Potassium 2.7 L* Chloride 93.8 L Carbon Dioxide 33 H Creatinine 2.8 H Glucose 124 H Calcium 8.2 L ALT < 5 L Troponin T 0.126 H* Total Protein Albumin 3.5 L Triglycerides 202 H HDL Cholesterol 32 L Crossmatch 08/05/21 08/05/21 08/06/21 18:56 Unknown 04:20 WBC RBC Hgb Hct MCH RDW Plt Count Lymph % (Auto) [place] % (Auto) Lymph # (Auto) Seg Neutrophils % Monocytes % (Manual) Basophils % (Manual) Seg Neutrophils # Lymphocytes # (Manual) APTT ABG pH 7.575 H 7.606 H* ABG pO2 142.9 H 111.2 H ABG HCO3 33.2 H 33.6 H ABG O2 Saturation ABG Base Excess 10.4 H 11.2 H ABG Hemoglobin 6.6 L 6.8 L Oxyhemoglobin Sodium Potassium Chloride Carbon Dioxide Creatinine Glucose Calcium ALT Troponin T 0.183 H* D Total Protein Albumin Triglycerides HDL Cholesterol Crossmatch 08/06/21 08/06/21 08/06/21 04:29 04:29 04:29 WBC 2.5 L RBC 2.70 L Hgb 6.8 L Hct 21.3 L MCH 25 L RDW 18.1 H Plt Count 126 L Lymph % (Auto) 45.[address] [place] % (Auto) 13.6 H Lymph # (Auto) 1.1 L Seg Neutrophils % 37.3 L Monocytes % (Manual) Basophils % (Manual) Seg Neutrophils # 0.9 L Lymphocytes # (Manual) APTT 38.8 H ABG pH ABG pO2 ABG HCO3 ABG O2 Saturation ABG Base Excess ABG Hemoglobin Oxyhemoglobin Sodium 136 L Potassium 3.0 L Chloride 92.6 L Carbon Dioxide 32 H Creatinine 3.8 H Glucose Calcium ALT Troponin T Total Protein 5.8 L Albumin 3.1 L Triglycerides HDL Cholesterol Crossmatch 08/06/21 08/06/21 08/06/21 05:30 07:26 07:26 WBC RBC Hgb 7.0 L Hct 22.5 L MCH RDW Plt Count 127 L Lymph % (Auto) [place] % (Auto) Lymph # (Auto) Seg Neutrophils % Monocytes % (Manual) Basophils % (Manual) Seg Neutrophils # Lymphocytes # (Manual) APTT 37.1 H ABG pH ABG pO2 ABG HCO3 ABG O2 Saturation ABG Base Excess ABG Hemoglobin Oxyhemoglobin Sodium Potassium Chloride Carbon Dioxide Creatinine Glucose Calcium ALT Troponin T Total Protein Albumin Triglycerides HDL Cholesterol Crossmatch See Detail 08/06/21 08:06 WBC RBC Hgb Hct MCH RDW Plt Count Lymph % (Auto) [place] % (Auto) Lymph # (Auto) Seg Neutrophils % Monocytes % (Manual) Basophils % (Manual) Seg Neutrophils # Lymphocytes # (Manual) APTT ABG pH ABG pO2 ABG HCO3 ABG O2 Saturation ABG Base Excess ABG Hemoglobin Oxyhemoglobin Sodium Potassium 3.1 L Chloride 92.4 L Carbon Dioxide 33 H Creatinine 3.9 H Glucose Calcium ALT Troponin T Total Protein Albumin Triglycerides HDL Cholesterol Crossmatch - Diagnostic Findings Chest x-ray: image reviewed Assessment and Plan 60 y/o female with known VT in the past, systolic heart failure with BIV AICD admitted with recurrent VT and electrolyte abnormality Follow up cards recs most likely needs ablation at [place] Continue amio drip per cards CCt 31 minutes.
[2021-08-06] MEDS ORDERED: CLOPIDOGREL 75 MG TAB PO SCH (10:00)
[2021-08-06] MEDS: AMIODARONE 900 MG in DEXTROSE 5% IN WATER 482 ML IV SCH (12:55)
[2021-08-06] MEDS: POTASSIUM CHLORIDE 10 MEQ 10 MEQ/100 ML BAG IV SCH ×3 (13:10→15:23)
[2021-08-06] MEDS: fentaNYL DRIP Premix 2,000 MCG/100 ML BAG IV SCH ×2 (13:12→20:01)
[2021-08-06] MEDS: LIDOCAINE DRIP 2,000 MG/500 ML BAG IV ONE (13:34)
[2021-08-06] MEDS: METOPROLOL TARTRATE 50 MG TAB PO SCH ×2 (13:35→22:06)
--- NOTE | 2021-08-06 14:38 | XRay Report ---
CHEST - 1 VIEW INDICATION: intubation COMPARISON: Yesterday FINDINGS: SUPPORT DEVICES: Endotracheal tube tip remains at the james and should be retracted 5 cm. HEART: Stable cardiomediastinal silhouette. LUNGS/PLEURA: Persistent mild patchy multifocal airspace disease especially throughout the right concepcion g. ADDITIONAL FINDINGS: None. IMPRESSION: 1. Recommend withdrawing the endotracheal tube 5 cm. This recommendation was also made yesterday sinc e the tip of the tube is at the james. 2. Lung findings as above. Signer Name: Chuy Nelson MD Signed: 08/06/2021 2:34 PM Workstation Name: [id number]
[2021-08-06] MEDS ORDERED: DEXTROSE 50% IN WATER (25GM) 50 ML VIAL IV PRN (15:10)
[2021-08-06] MEDS: DEXTROSE 50% IN WATER (25GM) 50 ML SYRINGE IV PRN (15:30)
[2021-08-06] MEDS ORDERED: ACETAMINOPHEN 650 MG RECT SUPP PR PRN (16:30)
[2021-08-06 17:07] LABS: Basophils # (Auto) 0.1 K/mm3 (0.0-0.1); Basophils % (Auto) 1.7 % (0.0-1.8); Eosinophils # (Auto) 0.1 K/mm3 (0.0-0.4); Eosinophils % (Auto) 2.2 % (0.0-4.3); Hematocrit 26.8 % (30.3-42.9); Hemoglobin 8.5 gm/dl (10.1-14.3); Lymphocytes # (Auto) 0.8 K/mm3 (1.2-5.4); Lymphocytes % (Auto) 19.4 % (13.4-35.0); Mean Corpuscular HGB Conc 32 % (30-34); Mean Corpuscular Volume 82 fl (79-97); Monocytes # (Auto) 0.7 K/mm3 (0.0-0.8); Monocytes % (Auto) 15.5 % (0.0-7.3); Platelet Count 124 K/mm3 (140-440); Red Blood Count 3.27 M/mm3 (3.65-5.03); Red Cell Distribution Width 18.7 % (13.2-15.2)
[2021-08-06 17:10] LABS: Albumin 3.2 g/dL (3.9-5); Calcium 8.3 mg/dL (8.4-10.2)
[2021-08-06 17:20] LABS: INR 0.99 (0.87-1.13)
[2021-08-06] MEDS ORDERED: niCARdipine 50 MG in SODIUM CHLORIDE 0.9% 250ML 230 ML IV SCH (18:00)
[2021-08-06] MEDS ORDERED: D5W/0.9% NACL 1,000 ML IV SCH (18:00)
[2021-08-06] MEDS: niCARdipine 50 MG in SODIUM CHLORIDE 0.9% 250ML 230 ML IV SCH ×2 (18:30→18:46)
[2021-08-06 18:47] LABS: ABG Base Excess 6.9 mmol/L (-2.0-3.0); ABG HCO3 29.4 mmol/L (20.0-26.0); ABG Methemoglobin 0.7 % (0.0-1.5); ABG Oxygen Saturation 98.4 % (95.0-99.0); ABG PCO2 33.2 mm Hg; ABG PH 7.565 pH Units (7.350-7.450); ABG PO2 113.3 mm Hg (80.0-90.0)
--- NOTE | 2021-08-06 19:23 | Progress Note ---
Assessment and Plan Critical care statement The high probability OF a clinically significant sudden or life-threatening deterioration of the cardiorespiratory system and endocrine system required my full and direct attention, intervention and postoperative management. The aggregate critical care time was 40 minutes. The time is in addition to time spent performing reported procedures but includes the followin: Data review and interpretation 2: Patient assessment and monitoring of vital signs 3: Documentation 4:: Medication orders and management - Patient Problems (1) Sustained ventricular tachycardia Current Visit: Yes Status: Acute Plan to address problem: Sustained V. tach resulting in multiple AICD discharges Patient initiated on IV amiodarone drip and IV lidocaine drip Patient intubated for protection of airway After intubation V. tach subsided and no further AICD discharges Continue vent management Cardiology and certified registered nurse anesthetist consults requested (2) AICD discharge Current Visit: Yes Status: Acute Plan to address problem: Secondary to V. tach (3) Elevated troponin Current Visit: Yes Status: Acute Plan to address problem: Possible troponin leak Will defer to cardiology regarding heparin drip (4) Hypokalemia Current Visit: Yes Status: Acute Plan to address problem: Severe potassium drip initiated (5) End stage renal disease on dialysis Current Visit: Yes Status: Chronic Plan to address problem: Continue hemodialysis as per schedule Nephrology consulted (6) Hypertension Current Visit: No Status: Chronic Qualifiers: Hypertension type: primary hypertension Qualified Code(s): I10 - Essential (primary) hypertension Plan to address problem: Antihypertensives and adjust medications to keep blood pressure normal (7) Prolonged QT syndrome Current Visit: Yes Status: Chronic Plan to address problem: Defer to cardiology (8) Anemia Current Visit: Yes Status: Chronic Qualifiers: Anemia type: due to chronic kidney disease Plan to address problem: Transfuse as necessary Continue Epogen (9) DVT prophylaxis Current Visit: Yes Status: Acute Plan to address problem: On anticoagulation GI prophylaxis Subjective Date of service: 08/06/21 Principal diagnosis: V. tach Interval history: 60-year-old female with history of end-stage renal disease on hemodialysis, recurrent AICD discharges, V. tach and cardiac arrest in the past, coronary artery disease and hypertension sent from dialysis center for severe muscle spasms secondary to her AICD discharge as per patient. Dialysis center nurses felt that there were seizures X2 falsely interpreted. In the emergency room patient continued to have multiple AICD discharges secondary to recurrent V. tach. Patient was started on amiodarone and IV lidocaine. Patient was intubated for protection of airway patient is alert and oriented. Patient had dialysis at [facility] under Dr. Gayle Rogers. No shortness, No chest pain. No fever or chills. Last admission was reviewed. Patient was sent for EPS and ablation of abnormal conducting tracts Apparently ablation was not done 08/06/2021 Patient is sedated Transfer to [place] arranged Objective - Exam Narrative Exam: Patient is intubated but alert - Constitutional Vitals: Vital Signs - 12hr 08/06/21 08/06/21 08/06/21 07:41 07:45 07:58 Temperature Pulse Rate 116 H 73 70 Pulse Rate [ From Monitor] Respiratory 12 14 Rate Blood Pressure Blood Pressure [Right] O2 Sat by Pulse 100 100 Oximetry 08/06/21 08/06/21 08/06/21 08:00 08:01 08:15 Temperature 100.9 F H Pulse Rate 74 70 Pulse Rate [ From Monitor] Respiratory 20 20 Rate Blood Pressure Blood Pressure 174/68 [Right] O2 Sat by Pulse 97 100 100 Oximetry 08/06/21 08/06/21 08/06/21 08:31 08:45 09:01 Temperature Pulse Rate Pulse Rate [ From Monitor] Respiratory Rate Blood Pressure Blood Pressure [Right] O2 Sat by Pulse 100 100 100 Oximetry 08/06/21 08/06/21 08/06/21 09:13 09:15 09:31 Temperature Pulse Rate 70 Pulse Rate [ From Monitor] Respiratory 13 Rate Blood Pressure Blood Pressure [Right] O2 Sat by Pulse 100 100 100 Oximetry 08/06/21 08/06/21 08/06/21 09:45 10:00 10:15 Temperature Pulse Rate 70 70 70 Pulse Rate [ From Monitor] Respiratory 0 L 15 10 L Rate Blood Pressure 178/75 182/76 Blood Pressure [Right] O2 Sat by Pulse 100 100 100 Oximetry 08/06/21 08/06/21 08/06/21 10:30 10:45 11:00 Temperature Pulse Rate 70 70 70 Pulse Rate [ From Monitor] Respiratory 12 15 13 Rate Blood Pressure 174/94 180/71 177/68 Blood Pressure [Right] O2 Sat by Pulse 100 100 100 Oximetry 08/06/21 08/06/21 08/06/21 11:15 11:29 11:30 Temperature 97.9 F Pulse Rate 70 70 70 Pulse Rate [ From Monitor] Respiratory 14 20 16 Rate Blood Pressure 172/117 172/117 182/119 Blood Pressure [Right] O2 Sat by Pulse 100 100 100 Oximetry 08/06/21 08/06/21 08/06/21 11:41 11:44 11:51 Temperature 99.4 F Pulse Rate 70 70 70 Pulse Rate [ From Monitor] Respiratory 19 20 9 L Rate Blood Pressure 182/119 189/71 189/71 Blood Pressure [Right] O2 Sat by Pulse 100 100 100 Oximetry 08/06/21 08/06/21 08/06/21 12:00 12:11 12:14 Temperature 99.8 F H Pulse Rate 70 70 70 Pulse Rate [ From Monitor] Respiratory 15 20 20 Rate Blood Pressure 190/69 190/69 200/76 Blood Pressure [Right] O2 Sat by Pulse 100 100 100 Oximetry 08/06/21 08/06/21 08/06/21 12:21 12:30 12:41 Temperature Pulse Rate 70 70 70 Pulse Rate [ From Monitor] Respiratory 14 18 21 Rate Blood Pressure 184/79 200/76 200/76 Blood Pressure [Right] O2 Sat by Pulse 100 100 100 Oximetry 08/06/21 08/06/21 08/06/21 12:42 12:44 12:51 Temperature 99.8 F H Pulse Rate 70 75 70 Pulse Rate [ From Monitor] Respiratory 20 19 Rate Blood Pressure 200/76 179/88 191/69 Blood Pressure [Right] O2 Sat by Pulse 98 98 100 Oximetry 08/06/21 08/06/21 08/06/21 13:00 13:11 13:21 Temperature Pulse Rate 70 74 70 Pulse Rate [ From Monitor] Respiratory 18 22 13 Rate Blood Pressure 196/68 196/68 195/75 Blood Pressure [Right] O2 Sat by Pulse 100 100 100 Oximetry 08/06/21 08/06/21 08/06/21 13:30 13:44 14:36 Temperature Pulse Rate 70 70 Pulse Rate [ From Monitor] Respiratory 14 20 16 Rate Blood Pressure 187/80 Blood Pressure [Right] O2 Sat by Pulse 100 98 93 Oximetry 08/06/21 08/06/21 08/06/21 14:40 14:50 15:00 Temperature Pulse Rate 105 H 70 70 Pulse Rate [ From Monitor] Respiratory 25 H 21 19 Rate Blood Pressure 200/137 200/137 200/137 Blood Pressure [Right] O2 Sat by Pulse 95 95 93 Oximetry 08/06/21 08/06/21 08/06/21 15:10 15:13 15:14 Temperature 101.6 F H Pulse Rate 70 70 Pulse Rate [ 70 From Monitor] Respiratory 18 20 20 Rate Blood Pressure 193/142 200/104 Blood Pressure [Right] O2 Sat by Pulse 97 98 98 Oximetry 08/06/21 08/06/21 08/06/21 15:21 15:31 15:41 Temperature Pulse Rate 70 70 70 Pulse Rate [ From Monitor] Respiratory 20 21 19 Rate Blood Pressure 200/104 200/104 Blood Pressure [Right] O2 Sat by Pulse 97 96 97 Oximetry 08/06/21 08/06/21 08/06/21 15:51 16:01 16:11 Temperature Pulse Rate 70 70 70 Pulse Rate [ From Monitor] Respiratory 20 20 21 Rate Blood Pressure 200/104 200/104 200/104 Blood Pressure [Right] O2 Sat by Pulse 91 100 99 Oximetry 08/06/21 08/06/21 08/06/21 16:21 16:24 16:31 Temperature Pulse Rate 70 70 70 Pulse Rate [ From Monitor] Respiratory 19 21 Rate Blood Pressure 200/104 240/142 240/142 Blood Pressure [Right] O2 Sat by Pulse 100 Oximetry 08/06/21 08/06/21 16:41 17:30 Temperature Pulse Rate 70 70 Pulse Rate [ From Monitor] Respiratory 20 Rate Blood Pressure 240/142 176/79 Blood Pressure [Right] O2 Sat by Pulse 100 100 Oximetry General appearance: Present: no acute distress, well-nourished - EENT Eyes: PERRL, EOM intact ENT: hearing intact, clear oral mucosa Ears: bilateral: normal - Neck Neck: supple, normal ROM - Respiratory Respiratory effort: normal Respiratory: bilateral: CTA - Breasts Breasts: normal - Cardiovascular Heart rate: 78 Rhythm: regular Heart Sounds: Present: S1 & S2. Absent: gallop, rub Extremities: pulses intact, No edema, normal color, Full ROM - Gastrointestinal General gastrointestinal: Present: soft, non-tender, non-distended, normal bowel sounds - Genitourinary Female genitourinary: normal - Integumentary Integumentary: clear, warm, dry - Musculoskeletal Musculoskeletal: 1, strength equal bilaterally - Neurologic Neurologic: moves all extremities - Psychiatric Psychiatric: memory intact, appropriate mood/affect, intact judgment & insight - Labs CBC & Chem 7: 08/06/21 16:35 08/06/21 16:35 Labs: Abnormal lab results 08/05/21 08/05/21 08/05/21 Range/Units 15:55 18:56 Unknown WBC (4.5-11.0) K/mm3 RBC (3.65-5.03) M/mm3 Hgb (10.1-14.3) gm/dl Hct (30.3-42.9) % MCH (28-32) pg RDW (13.2-15.2) % Plt Count (140-440) K/mm3 Lymph % (Auto) (13.4-35.0) % Sullivan % (Auto) (0.0-7.3) % Lymph # (Auto) (1.2-5.4) K/mm3 Seg Neutrophils % (40.0-70.0) % Monocytes % (Manual) 18.0 H (0.0-7.3) % Basophils % (Manual) 2.0 H (0.0-1.8) % Seg Neutrophils # (1.8-7.7) K/mm3 Lymphocytes # (Manual) 0.9 L (1.2-5.4) K/mm3 APTT (24.2-36.6) Sec. ABG pH 7.575 H (7.350-7.450) pH Units ABG pO2 142.9 H (80.0-90.0) mm Hg ABG HCO3 33.2 H (20.0-26.0) mmol/L ABG Base Excess 10.4 H (-2.0-3.0) mmol/L ABG Hemoglobin 6.6 L (12.0-16.0) gm/dl Sodium (137-145) mmol/L Potassium (3.6-5.0) mmol/L Chloride (98-107) mmol/L Carbon Dioxide (22-30) mmol/L BUN (7-17) mg/dL Creatinine (0.6-1.2) mg/dL POC Glucose (70-105) mg/dL Calcium (8.4-10.2) mg/dL Troponin T 0.183 H* D (0.00-0.029) ng/mL Total Protein (6.3-8.2) g/dL Albumin (3.9-5) g/dL Crossmatch 08/06/21 08/06/21 08/06/21 Range/Units 04:20 04:29 04:29 WBC (4.5-11.0) K/mm3 RBC (3.65-5.03) M/mm3 Hgb (10.1-14.3) gm/dl Hct (30.3-42.9) % MCH (28-32) pg RDW (13.2-15.2) % Plt Count (140-440) K/mm3 Lymph % (Auto) (13.4-35.0) % Sullivan % (Auto) (0.0-7.3) % Lymph # (Auto) (1.2-5.4) K/mm3 Seg Neutrophils % (40.0-70.0) % Monocytes % (Manual) (0.0-7.3) % Basophils % (Manual) (0.0-1.8) % Seg Neutrophils # (1.8-7.7) K/mm3 Lymphocytes # (Manual) (1.2-5.4) K/mm3 APTT 38.8 H (24.2-36.6) Sec. ABG pH 7.606 H* (7.350-7.450) pH Units ABG pO2 111.2 H (80.0-90.0) mm Hg ABG HCO3 33.6 H (20.0-26.0) mmol/L ABG Base Excess 11.2 H (-2.0-3.0) mmol/L ABG Hemoglobin 6.8 L (12.0-16.0) gm/dl Sodium 136 L (137-145) mmol/L Potassium 3.0 L (3.6-5.0) mmol/L Chloride 92.6 L (98-107) mmol/L Carbon Dioxide 32 H (22-30) mmol/L BUN (7-17) mg/dL Creatinine 3.8 H (0.6-1.2) mg/dL POC Glucose (70-105) mg/dL Calcium (8.4-10.2) mg/dL Troponin T (0.00-0.029) ng/mL Total Protein 5.8 L (6.3-8.2) g/dL Albumin 3.1 L (3.9-5) g/dL Crossmatch 08/06/21 08/06/21 08/06/21 Range/Units 04:29 05:30 07:26 WBC 2.5 L (4.5-11.0) K/mm3 RBC 2.70 L (3.65-5.03) M/mm3 Hgb 6.8 L 7.0 L (10.1-14.3) gm/dl Hct 21.3 L 22.5 L (30.3-42.9) % MCH 25 L (28-32) pg RDW 18.1 H (13.2-15.2) % Plt Count 126 L 127 L (140-440) K/mm3 Lymph % (Auto) 45.0 H (13.4-35.0) % Sullivan % (Auto) 13.6 H (0.0-7.3) % Lymph # (Auto) 1.1 L (1.2-5.4) K/mm3 Seg Neutrophils % 37.3 L (40.0-70.0) % Monocytes % (Manual) (0.0-7.3) % Basophils % (Manual) (0.0-1.8) % Seg Neutrophils # 0.9 L (1.8-7.7) K/mm3 Lymphocytes # (Manual) (1.2-5.4) K/mm3 APTT (24.2-36.6) Sec. ABG pH (7.350-7.450) pH Units ABG pO2 (80.0-90.0) mm Hg ABG HCO3 (20.0-26.0) mmol/L ABG Base Excess (-2.0-3.0) mmol/L ABG Hemoglobin (12.0-16.0) gm/dl Sodium (137-145) mmol/L Potassium (3.6-5.0) mmol/L Chloride (98-107) mmol/L Carbon Dioxide (22-30) mmol/L BUN (7-17) mg/dL Creatinine (0.6-1.2) mg/dL POC Glucose (70-105) mg/dL Calcium (8.4-10.2) mg/dL Troponin T (0.00-0.029) ng/mL Total Protein (6.3-8.2) g/dL Albumin (3.9-5) g/dL Crossmatch See Detail 08/06/21 08/06/21 08/06/21 Range/Units 07:26 08:06 14:50 WBC (4.5-11.0) K/mm3 RBC (3.65-5.03) M/mm3 Hgb (10.1-14.3) gm/dl Hct (30.3-42.9) % MCH (28-32) pg RDW (13.2-15.2) % Plt Count (140-440) K/mm3 Lymph % (Auto) (13.4-35.0) % Sullivan % (Auto) (0.0-7.3) % Lymph # (Auto) (1.2-5.4) K/mm3 Seg Neutrophils % (40.0-70.0) % Monocytes % (Manual) (0.0-7.3) % Basophils % (Manual) (0.0-1.8) % Seg Neutrophils # (1.8-7.7) K/mm3 Lymphocytes # (Manual) (1.2-5.4) K/mm3 APTT 37.1 H (24.2-36.6) Sec. ABG pH (7.350-7.450) pH Units ABG pO2 (80.0-90.0) mm Hg ABG HCO3 (20.0-26.0) mmol/L ABG Base Excess (-2.0-3.0) mmol/L ABG Hemoglobin (12.0-16.0) gm/dl Sodium (137-145) mmol/L Potassium 3.1 L (3.6-5.0) mmol/L Chloride 92.4 L (98-107) mmol/L Carbon Dioxide 33 H (22-30) mmol/L BUN (7-17) mg/dL Creatinine 3.9 H (0.6-1.2) mg/dL POC Glucose 59 L (70-105) mg/dL Calcium (8.4-10.2) mg/dL Troponin T (0.00-0.029) ng/mL Total Protein (6.3-8.2) g/dL Albumin (3.9-5) g/dL Crossmatch 08/06/21 08/06/21 08/06/21 Range/Units 16:03 16:35 16:35 WBC 4.2 L (4.5-11.0) K/mm3 RBC 3.27 L (3.65-5.03) M/mm3 Hgb 8.5 L (10.1-14.3) gm/dl Hct 26.8 L (30.3-42.9) % MCH 26 L (28-32) pg RDW 18.7 H (13.2-15.2) % Plt Count 124 L (140-440) K/mm3 Lymph % (Auto) (13.4-35.0) % Sullivan % (Auto) 15.5 H (0.0-7.3) % Lymph # (Auto) 0.8 L (1.2-5.4) K/mm3 Seg Neutrophils % (40.0-70.0) % Monocytes % (Manual) (0.0-7.3) % Basophils % (Manual) (0.0-1.8) % Seg Neutrophils # (1.8-7.7) K/mm3 Lymphocytes # (Manual) (1.2-5.4) K/mm3 APTT (24.2-36.6) Sec. ABG pH (7.350-7.450) pH Units ABG pO2 (80.0-90.0) mm Hg ABG HCO3 (20.0-26.0) mmol/L ABG Base Excess (-2.0-3.0) mmol/L ABG Hemoglobin (12.0-16.0) gm/dl Sodium 133 L (137-145) mmol/L Potassium (3.6-5.0) mmol/L Chloride 93.2 L (98-107) mmol/L Carbon Dioxide (22-30) mmol/L BUN 21 H (7-17) mg/dL Creatinine 4.6 H (0.6-1.2) mg/dL POC Glucose 121 H (70-105) mg/dL Calcium 8.3 L (8.4-10.2) mg/dL Troponin T (0.00-0.029) ng/mL Total Protein 6.2 L (6.3-8.2) g/dL Albumin 3.2 L (3.9-5) g/dL Crossmatch 08/06/21 08/06/21 08/06/21 Range/Units 17:31 18:14 18:22 WBC (4.5-11.0) K/mm3 RBC (3.65-5.03) M/mm3 Hgb (10.1-14.3) gm/dl Hct (30.3-42.9) % MCH (28-32) pg RDW (13.2-15.2) % Plt Count (140-440) K/mm3 Lymph % (Auto) (13.4-35.0) % Sullivan % (Auto) (0.0-7.3) % Lymph # (Auto) (1.2-5.4) K/mm3 Seg Neutrophils % (40.0-70.0) % Monocytes % (Manual) (0.0-7.3) % Basophils % (Manual) (0.0-1.8) % Seg Neutrophils # (1.8-7.7) K/mm3 Lymphocytes # (Manual) (1.2-5.4) K/mm3 APTT (24.2-36.6) Sec. ABG pH 7.565 H (7.350-7.450) pH Units ABG pO2 113.3 H (80.0-90.0) mm Hg ABG HCO3 29.4 H (20.0-26.0) mmol/L ABG Base Excess 6.9 H (-2.0-3.0) mmol/L ABG Hemoglobin 8.3 L (12.0-16.0) gm/dl Sodium (137-145) mmol/L Potassium (3.6-5.0) mmol/L Chloride (98-107) mmol/L Carbon Dioxide (22-30) mmol/L BUN (7-17) mg/dL Creatinine (0.6-1.2) mg/dL POC Glucose 62 L 148 H (70-105) mg/dL Calcium (8.4-10.2) mg/dL Troponin T (0.00-0.029) ng/mL Total Protein (6.3-8.2) g/dL Albumin (3.9-5) g/dL Crossmatch HEART Score - HEART Score Age: 45-65 Risk factors: > 3 risk factors or hx of atherosclerotic disease Troponin: Troponin T 0.183 ng/mL (0.00-0.029) H* D 08/05/21 18:56 Troponin: 1-3x normal limit - Critical Actions Critical Actions: 4-6 pts:12-16.6% risk of adverse cardiac event. Should be admitted
--- NOTE | 2021-08-06 19:29 | Discharge Summary ---
Providers - Providers Date of Admission: 08/05/21 18:33 Date of discharge: 08/10/21 Attending physician: SARAVANAN BERRY 08/05/21 17:28 Consult to Dietitian/Nutrition [CONS] Routine Physician Instructions: Reason For Exam: Reason for Consult: Evaluate nutritional intake 08/05/21 17:30 Consult to Physician [CONS] Urgent Comment: Consulting Provider: RIANA YEBOAH Physician Instructions: Reason For Exam: sustained vtach 08/05/21 17:57 Consult to Physician [CONS] Urgent Comment: Consulting Provider: SALEEM CABALLERO Physician Instructions: Reason For Exam: esrd, hypokalemia, vtach 08/05/21 18:59 Consult to Physician [CONS] Urgent Comment: Consulting Provider: KELLE CORADO Physician Instructions: Reason For Exam: intubated, sustained vtach, esrd Primary care physician: [employer] Hospitalization Condition: Stable Hospital course: Subjective Date of service: 08/06/21 Principal diagnosis: V. tach Interval history: 60-year-old female with history of end-stage renal disease on hemodialysis, recurrent AICD discharges, V. tach and cardiac arrest in the past, coronary artery disease and hypertension sent from dialysis center for severe muscle spasms secondary to her AICD discharge as per patient. Dialysis center nurses felt that there were seizures X2 falsely interpreted. In the emergency room patient continued to have multiple AICD discharges secondary to recurrent V. tach. Patient was started on amiodarone and IV lidocaine. Patient was intubated for protection of airway patient is alert and oriented. Patient had dialysis at [facility] under Dr. Gayle Rogers. No shortness, No chest pain. No fever or chills. Last admission was reviewed. Patient was sent for EPS and ablation of abnormal conducting tracts Apparently ablation was not done 08/06/2021 Patient is sedated Transfer to [place] arranged - Patient Problems (1) Sustained ventricular tachycardia Current Visit: Yes Status: Acute Plan to address problem: Sustained V. tach resulting in multiple AICD discharges Patient initiated on IV amiodarone drip and IV lidocaine drip Patient intubated for protection of airway After intubation V. tach subsided and no further AICD discharges Continue vent management Cardiology and lead generation specialist consults requested (2) AICD discharge Current Visit: Yes Status: Acute Plan to address problem: Secondary to V. tach (3) Elevated troponin Current Visit: Yes Status: Acute Plan to address problem: Possible troponin leak Will defer to cardiology regarding heparin drip (4) Hypokalemia Current Visit: Yes Status: Acute Plan to address problem: Severe potassium drip initiated (5) End stage renal disease on dialysis Current Visit: Yes Status: Chronic Plan to address problem: Continue hemodialysis as per schedule Nephrology consulted (6) Hypertension Current Visit: No Status: Chronic Qualifiers: Hypertension type: primary hypertension Qualified Code(s): I10 - Essential (primary) hypertension Plan to address problem: Antihypertensives and adjust medications to keep blood pressure normal (7) Prolonged QT syndrome Current Visit: Yes Status: Chronic Plan to address problem: Defer to cardiology (8) Anemia Current Visit: Yes Status: Chronic Qualifiers: Anemia type: due to chronic kidney disease Plan to address problem: Transfuse as necessary Continue Epogen (9) DVT prophylaxis Current Visit: Yes Status: Acute Plan to address problem: On anticoagulation GI prophylaxis Disposition: [facility] - Discharge Diagnoses (1) Sustained ventricular tachycardia Status: Acute (2) AICD discharge Status: Acute (3) Elevated troponin Status: Acute (4) Hypokalemia Status: Acute (5) End stage renal disease on dialysis Status: Chronic (6) Hypertension Status: Chronic Qualifiers: Hypertension type: primary hypertension Qualified Code(s): I10 - Essential (primary) hypertension (7) Prolonged QT syndrome Status: Chronic (8) Anemia Status: Chronic Qualifiers: Anemia type: due to chronic kidney disease (9) DVT prophylaxis Status: Acute Core Measure Documentation - Palliative Care Palliative Care/ Comfort Measures: Not Applicable - Core Measures Any of the following diagnoses?: none Exam - Physical Exam Narrative exam: Patient is intubated but alert - Constitutional Vitals: Temp Pulse Resp BP Pulse Ox 101.6 F H 70 20 176/79 100 08/06/21 15:13 08/06/21 17:30 08/06/21 16:41 08/06/21 17:30 08/06/21 17:30 General appearance: Present: no acute distress, well-nourished - EENT Eyes: Present: PERRL ENT: hearing intact, clear oral mucosa - Neck Neck: Present: supple, normal ROM - Respiratory Respiratory effort: normal Respiratory: bilateral: CTA - Cardiovascular Heart rate: 78 Rhythm: regular Heart Sounds: Present: S1 & S2. Absent: rub, click - Extremities Extremities: pulses symmetrical, No edema Peripheral Pulses: within normal limits - Abdominal General gastrointestinal: Present: soft, non-tender, non-distended, normal bowel sounds Female genitourinary: Present: normal - Integumentary Integumentary: Present: clear, warm, dry - Musculoskeletal Musculoskeletal: gait normal, strength equal bilaterally - Psychiatric Psychiatric: appropriate mood/affect, intact judgment & insight - Neurologic Neurologic: CNII-XII intact, moves all extremities - Allied Health Allied health notes reviewed: nursing, case management Plan Activity: no restrictions Diet: low cholesterol, low salt Follow up with: PRIMARY CARE, [Primary Care Provider] - 3-5 Days
[2021-08-06] MEDS: FAMOTIDINE 20 MG/2 ML INJ IV SCH (22:06)
[2021-08-06] MEDS ORDERED: SODIUM CHLORIDE 0.9% 100 ML IV PRN (23:18)
[2021-08-07] MEDS: DEXTROSE 10% IN WATER 1,000 ML IV SCH (00:17)
[2021-08-07] MEDS: SENNOSIDES/DOCUSATE SODIUM 8.6/50 MG TAB FEEDTUBE SCH (00:55)
--- NOTE | 2021-08-07 02:55 | XRay Report ---
CHEST 1 VIEW 08/07/2021 1:36 AM INDICATION / CLINICAL INFORMATION: follow up respiratory failure. COMPARISON: 08/06/2021 FINDINGS: SUPPORT DEVICES: Endotracheal tube terminates approximately 5.4 cm from the james. There is an enter ic tube which terminates at the GE junction, recommend advancement. HEART / MEDIASTINUM: Stable. LUNGS / PLEURA: Redemonstrated airspace opacities No pneumothorax. ADDITIONAL FINDINGS: No significant additional findings. IMPRESSION: 1. Endotracheal tube terminates 5.4 cm from the james. Enteric tube terminates at the GE junction, r ecommend advancement. Signer Name: Bal Zelaya DO Signed: 08/07/2021 2:51 AM Workstation Name: [id number]
--- NOTE | 2021-08-07 04:55 | Consultation ---
DATE OF CONSULTATION: 08/06/2021 REASON FOR CONSULTATION: Advice and opinion regarding VT. HISTORY OF PRESENT ILLNESS: The patient is a 60-year-old female who is known to our service from previous hospitalization. She has a history of hypertension, CVA, diabetes, end-stage renal disease, on hemodialysis. She was previously known to our practice, presented to [facility] on 07/12 acute respiratory failure, history of AICD as well. Questionable prolonged QT, had multiple VT episodes and AICD shocks during the last hospitalization, was intubated, started on IV amiodarone. 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 The patient was catheterized. She had an ostial circumflex with MADHU 3 flow, remained intubated and was transferred to [facility] for consideration of VT ablation. The patient was noted to have hypokalemia at that time. The patient underwent repeat cardiac catheterization there and POBA of the ostial circumflex branch, MADHU 3 flow, no further episodes at the hospitalization there and thus was discharged on p.o. amiodarone. Interrogation of the device several times revealed appropriate shocks per records. She represents here yesterday with VT again prolonged QT. There is some question of seizure activity at dialysis center versus VT. We do not have good rhythm strips from the overall episode. She was alert and oriented, some question of another arrest with hypoxemia. It is unclear what actually happened. The patient was eventually intubated and started on amiodarone drip. The patient remained significantly hypokalemic. The patient is seen in the ER. She is intubated, sedated, no further episodes of VT. Records as per chart. EKG today is unremarkable. PHYSICAL EXAMINATION: VITAL SIGNS: Blood pressure is in the 150 systolic range. At this point, she reveals sinus rhythm, O2 sats are 100%. GENERAL: She is intubated, sedated. HEENT: Sclerae are anicteric. NECK: Supple, no masses, no JVD. CHEST: Clear to auscultation bilaterally. Good air movement. CARDIAC: Regular S1, S2. ABDOMEN: Soft, nontender, nondistended. Normoactive bowel sounds in 4 quadrants. No mass or bruits. EXTREMITIES: No cyanosis, clubbing, edema. Good peripheral pulses. SKIN: Intact. No rashes. DIAGNOSTIC DATA: Chest x-ray yesterday revealed a low lying endotracheal tube, which I believe was retracted. Repeat chest x-ray is pending. Bilateral airspace disease is noted. EKG is unremarkable for acute changes. LABORATORY DATA: Hemoglobin is 7, hematocrit 22.5. WBCs 2.5, platelets are 127. Initial potassium was 2.7, now 3.1, magnesium was 1.8, creatinine is 3.9. Troponin is minimally elevated at 0.18. ASSESSMENT: In summary, the patient is a 60-year-old female with recurrent ventricular tachycardia, status post probable automated implantable defibrillator shock in the milieu of recurrent severe hypokalemia of unclear etiology. The patient is an end-stage renal disease patient. Potassium is being aggressively repleted. Magnesium also be repleted. We will repeat echocardiogram, reinterrogate her device. She underwent recent POBA of her left circumflex. Her EKG is unremarkable. Troponins are flat. I do not believe this is consistent with acute coronary syndrome. She is currently intubated. We transferred to the ICU. We will resume IV amiodarone. Replete electrolytes. Repeat echocardiogram, have the patient extubated and see how she does. She was already transferred to [place] during her last hospitalization for consideration of ablation. If recurrence, would reconsider this, but I believe electrolytes need to be handled appropriately first. Greater than 30 minutes critical care time was spent. We will continue to follow. Discussed with Dr. Felix of critical care, who has been extremely helpful. We will also update her daughter via telephone. Thank you for this consultation. TID: [id number] RECEIPT: [id number] [facility] Addendum- Interrogation of ICD revealed VT storm last night w/ 49 appropriate shocks. VT is out of proportion to electrolyte abnormality and I don't believe it's ischemic. Optimize electrolytes aggressively. Will likely need VT ablation. Will cont IV amio. Discussed with Dr. Felix. Discussed with Dr. Moon (EP at [facility]). We will keep patient intubated to mitigate colder catecholamine surge and VT storm risk. Patient is currently intubated, sedated, and electrically stable on IV amiodarone. [facility] has requested a Covid test prior to transfer and this has been ordered. Family has been updated. Obviously, we will continue to follow closely. [facility]
[2021-08-07] MEDS ORDERED: LIDOCAINE DRIP 2,000 MG/500 ML BAG IV SCH (05:00)
[2021-08-07 05:10] LABS: ABG Base Excess 7.2 mmol/L (-2.0-3.0); ABG HCO3 28.5 mmol/L (20.0-26.0); ABG Methemoglobin 0.7 % (0.0-1.5); ABG Oxygen Saturation 98.7 % (95.0-99.0); ABG PCO2 29.1 mm Hg; ABG PO2 121.4 mm Hg (80.0-90.0)
[2021-08-07 05:17] LABS: ABG PH 7.609 pH Units (7.350-7.450)
[2021-08-07] MEDS: ISOSORBIDE DINITRATE 10 MG TAB PO SCH ×3 (05:29→21:36)
[2021-08-07] MEDS ORDERED: SIMPLE SYRUP 15 ML FEEDTUBE PRN ×2 (09:47)
[2021-08-07] MEDS ORDERED: SODIUM BICARBONATE 325 MG TAB FEEDTUBE PRN (09:47)
[2021-08-07] MEDS ORDERED: LIPASE 10,500/PROTEASE 25,000/AMYLASE 43,750 (UNITS) DR CAP FEEDTUBE PRN (09:47)
[2021-08-07] MEDS: FAMOTIDINE 20 MG/2 ML INJ IV SCH ×3 (10:00→21:36)
[2021-08-07 10:16] LABS: Calcium 8.1 mg/dL (8.4-10.2)
[2021-08-07 10:32] LABS: Hematocrit 21.8 % (30.3-42.9); Mean Corpuscular HGB Conc 32 % (30-34); Mean Corpuscular Volume 82 fl (79-97); Red Blood Count 2.67 M/mm3 (3.65-5.03); Red Cell Distribution Width 18.7 % (13.2-15.2)
[2021-08-07 10:33] LABS: ABG PCO2 41.6 mm Hg; ABG PH 7.479 pH Units (7.350-7.450); ABG PO2 130.2 mm Hg (80.0-90.0)
[2021-08-07 10:34] LABS: ABG Base Excess 6.2 mmol/L (-2.0-3.0); ABG HCO3 30.3 mmol/L (20.0-26.0); ABG Methemoglobin 0.5 % (0.0-1.5); ABG Oxygen Saturation 98.6 % (95.0-99.0)
[2021-08-07 10:37] LABS: Platelet Count 82 K/mm3 (140-440)
[2021-08-07] MEDS ORDERED: POTASSIUM CHLORIDE 20 MEQ PACKET FEEDTUBE SCH (11:00)
[2021-08-07] MEDS ORDERED: HEPARIN 5,000 UNIT/1 ML VIAL SUB-Q SCH (11:00)
--- NOTE | 2021-08-07 11:20 | XRay Report ---
ABDOMEN 1 VIEW 08/07/2021 10:13 AM INDICATION / CLINICAL INFORMATION: OG tube placement. COMPARISON: 07/12/21. FINDINGS: TUBES / LINES: The feeding tube has been removed. There is a new orogastric tube with the tip overlyi ng the proximal gastric body and the proximal sidehole well below the gastroesophageal junction. BOWEL GAS PATTERN: No significant abnormality. FREE AIR / EXTRALUMINAL GAS: None. ADDITIONAL FINDINGS: No significant additional findings. IMPRESSION: Orogastric tube tip overlies the proximal gastric body. Signer Name: Saman Hi MD Signed: 08/07/2021 11:16 AM Workstation Name: [id number]
[2021-08-07 11:47] LABS: Total Cells Counted 100
[2021-08-07 11:48] LABS: Hypochromasia 1+; Target Cells Few; Tear Drop Cells Few
[2021-08-07 11:49] LABS: Platelet Estimate Consistent w Auto
--- NOTE | 2021-08-07 12:11 | Progress Note ---
Assessment and Plan Patient is a 60-year-old female with recurrent V. tach, end-stage renal disease, s/p ICD, and recurrent severe hypokalemia Severe Hypokalemia End-stage renal disease on hemodialysis NSTEMI ICD in place HTN Anemia Plan: Patient transfer to [place] for possible VT ablation delayed due to [place] request for Covid test Lidocaine stopped Continue gladys jaimes Discussed plan of care with patient's daughter Patient seen in conjunction with Dr. Lyons who agrees with this plan of care Greater than 30 minutes of critical care - Patient Problems (1) AICD discharge Current Visit: Yes Status: Acute (2) Anemia in end-stage renal disease Current Visit: Yes Status: Acute (3) Elevated troponin Current Visit: Yes Status: Acute (4) Hypokalemia Current Visit: Yes Status: Acute (5) Sustained ventricular tachycardia Current Visit: Yes Status: Acute (6) Diabetes Current Visit: No Status: Acute (7) Respiratory failure Current Visit: No Status: Acute Qualifiers: Chronicity: acute Respiratory failure complication: hypoxia Qualified Code(s): J96.01 - Acute respiratory failure with hypoxia (8) Hypertension Current Visit: No Status: Chronic Qualifiers: Hypertension type: primary hypertension Qualified Code(s): I10 - Essential (primary) hypertension Subjective Date of service: 08/07/21 Principal diagnosis: V. tach Interval history: Patient remains intubated and sedated. Patient receiving hemodialysis this a.m. Patient paced at 70 no events on monitor Objective Vital Signs Temp Pulse Pulse Resp BP Pulse Ox Pulse Ox 08/07/21 12:00 70 131/63 08/07/21 11:45 70 136/63 08/07/21 11:30 70 141/69 08/07/21 11:15 69 132/83 08/07/21 11:00 70 157/107 08/07/21 10:46 70 12 156/66 100 08/07/21 10:45 70 156/66 08/07/21 10:30 70 12 151/69 08/07/21 10:16 70 12 151/69 100 08/07/21 10:15 70 151/69 08/07/21 10:00 70 12 161/72 08/07/21 09:46 70 12 161/72 100 08/07/21 09:45 70 161/72 08/07/21 09:30 70 12 171/77 08/07/21 09:21 70 171/77 08/07/21 09:16 97.8 F 70 12 166/74 100 100 08/07/21 09:00 70 13 162/71 08/07/21 08:46 70 12 162/71 100 08/07/21 08:30 70 12 158/67 100 08/07/21 08:16 70 12 158/67 100 08/07/21 08:00 98.7 F 70 12 160/67 08/07/21 07:46 70 12 160/67 100 08/07/21 07:30 70 12 167/69 08/07/21 07:15 70 12 169/70 08/07/21 07:00 70 12 160/66 08/07/21 06:45 70 12 164/66 08/07/21 06:30 70 16 158/65 08/07/21 06:15 70 21 151/66 100 08/07/21 06:01 70 20 151/66 100 08/07/21 05:45 70 20 143/62 08/07/21 05:31 70 20 143/62 100 08/07/21 05:15 70 20 151/63 08/07/21 05:01 70 20 151/63 100 08/07/21 04:45 70 20 155/65 08/07/21 04:31 70 20 155/65 100 08/07/21 04:15 70 18 165/69 100 08/07/21 04:06 70 165/69 100 08/07/21 04:01 70 17 165/69 100 08/07/21 04:00 99.3 F 70 70 20 100 08/07/21 03:45 70 20 146/65 100 08/07/21 03:31 70 20 146/65 100 08/07/21 03:15 70 20 144/59 100 08/07/21 03:01 70 20 144/59 100 08/07/21 02:45 70 20 163/73 100 08/07/21 02:31 70 13 143/119 93 08/07/21 02:15 70 20 134/71 100 08/07/21 02:01 70 21 134/71 100 08/07/21 01:45 70 12 139/68 100 08/07/21 01:30 70 20 139/68 100 08/07/21 01:15 70 20 134/65 100 08/07/21 01:00 70 20 138/67 100 08/07/21 00:45 70 20 134/64 100 08/07/21 00:30 70 20 133/64 100 08/07/21 00:15 70 20 133/65 100 08/07/21 00:07 70 18 138/65 100 08/07/21 00:00 70 70 20 138/65 100 08/06/21 23:45 70 20 128/63 100 08/06/21 23:43 98.2 F 08/06/21 23:30 70 20 132/64 100 08/06/21 23:15 70 20 135/69 100 08/06/21 23:00 70 17 128/74 100 08/06/21 22:45 70 20 121/73 99 08/06/21 22:31 70 20 121/73 99 08/06/21 22:15 70 20 128/68 100 08/06/21 22:00 70 18 122/64 100 08/06/21 21:45 70 20 118/59 100 08/06/21 21:30 70 20 124/56 100 08/06/21 21:15 70 20 133/56 100 08/06/21 21:00 70 20 149/61 100 08/06/21 20:45 70 21 173/60 08/06/21 20:31 70 20 179/128 100 08/06/21 20:15 70 20 134/74 100 08/06/21 20:06 70 131/68 100 08/06/21 20:00 99.6 F 70 20 134/74 100 08/06/21 19:45 70 20 130/69 100 08/06/21 19:30 70 20 131/68 100 08/06/21 19:00 70 70 20 153/60 98 08/06/21 18:30 70 20 170/126 100 08/06/21 18:01 70 21 176/79 100 08/06/21 17:31 70 20 240/142 97 08/06/21 17:30 70 176/79 100 08/06/21 17:01 70 21 240/142 100 08/06/21 17:00 70 20 98 08/06/21 16:41 70 20 240/142 100 08/06/21 16:31 70 21 240/142 100 12/28/21 16:24 70 240/142 08/06/21 16:21 70 19 200/104 08/06/21 16:11 70 21 200/104 99 08/06/21 16:01 70 20 200/104 100 08/06/21 15:51 70 20 200/104 91 08/06/21 15:41 70 19 200/104 97 08/06/21 15:31 70 21 200/104 96 08/06/21 15:21 70 20 97 08/06/21 15:14 70 20 98 08/06/21 15:13 101.6 F H 70 20 200/104 98 08/06/21 15:10 70 18 193/142 97 08/06/21 15:00 70 19 200/137 93 08/06/21 14:50 70 21 200/137 95 08/06/21 14:40 105 H 25 H 200/137 95 08/06/21 14:36 70 16 93 08/06/21 13:44 20 98 08/06/21 13:30 70 14 187/80 100 08/06/21 13:21 70 13 195/75 100 08/06/21 13:11 74 22 196/68 100 08/06/21 13:00 70 18 196/68 100 08/06/21 12:51 70 19 191/69 100 08/06/21 12:44 99.8 F H 75 20 179/88 98 08/06/21 12:42 70 200/76 98 08/06/21 12:41 70 21 200/76 100 08/06/21 12:30 70 18 200/76 100 08/06/21 12:21 70 14 184/79 100 08/06/21 12:14 99.8 F H 70 20 200/76 100 08/06/21 12:11 70 20 190/69 100 Pulse Ox 08/07/21 12:00 08/07/21 11:45 08/07/21 11:30 08/07/21 11:15 08/07/21 11:00 08/07/21 10:46 08/07/21 10:45 08/07/21 10:30 08/07/21 10:16 08/07/21 10:15 08/07/21 10:00 08/07/21 09:46 08/07/21 09:45 08/07/21 09:30 08/07/21 09:21 08/07/21 09:16 100 08/07/21 09:00 08/07/21 08:46 08/07/21 08:30 08/07/21 08:16 08/07/21 08:00 08/07/21 07:46 08/07/21 07:30 08/07/21 07:15 08/07/21 07:00 08/07/21 06:45 08/07/21 06:30 08/07/21 06:15 08/07/21 06:01 08/07/21 05:45 08/07/21 05:31 08/07/21 05:15 08/07/21 05:01 08/07/21 04:45 08/07/21 04:31 08/07/21 04:15 08/07/21 04:06 08/07/21 04:01 08/07/21 04:00 08/07/21 03:45 08/07/21 03:31 08/07/21 03:15 08/07/21 03:01 08/07/21 02:45 08/07/21 02:31 08/07/21 02:15 08/07/21 02:01 08/07/21 01:45 08/07/21 01:30 08/07/21 01:15 08/07/21 01:00 08/07/21 00:45 08/07/21 00:30 08/07/21 00:15 08/07/21 00:07 08/07/21 00:00 08/06/21 23:45 08/06/21 23:43 08/06/21 23:30 08/06/21 23:15 08/06/21 23:00 08/06/21 22:45 08/06/21 22:31 08/06/21 22:15 08/06/21 22:00 08/06/21 21:45 08/06/21 21:30 08/06/21 21:15 08/06/21 21:00 08/06/21 20:45 08/06/21 20:31 08/06/21 20:15 08/06/21 20:06 08/06/21 20:00 08/06/21 19:45 08/06/21 19:30 08/06/21 19:00 08/06/21 18:30 08/06/21 18:01 08/06/21 17:31 08/06/21 17:30 08/06/21 17:01 08/06/21 17:00 08/06/21 16:41 08/06/21 16:31 08/06/21 16:24 08/06/21 16:21 08/06/21 16:11 08/06/21 16:01 08/06/21 15:51 08/06/21 15:41 08/06/21 15:31 08/06/21 15:21 08/06/21 15:14 08/06/21 15:13 08/06/21 15:10 08/06/21 15:00 08/06/21 14:50 08/06/21 14:40 08/06/21 14:36 08/06/21 13:44 08/06/21 13:30 08/06/21 13:21 08/06/21 13:11 08/06/21 13:00 08/06/21 12:51 08/06/21 12:44 08/06/21 12:42 08/06/21 12:41 08/06/21 12:30 08/06/21 12:21 08/06/21 12:14 08/06/21 12:11 - Physical Examination General: Other (Intubated and sedated) HEENT: Positive: Mucus Membranes Dry (Bleeding noted from nose), Other Neck: Positive: trachea midline Cardiac: Positive: Reg Rate and Rhythm Lungs: Positive: Ventilated Respirations Neuro: Positive: Other (Unable to assess patient intubated sedated ) Abdomen: Positive: Soft Skin: Negative: Rash Extremities: Present: upper extr. pulses - Labs and Meds Cardiac Enzymes 08/06/21 Range/Units 16:35 AST 18 (5-40) units/L Coagulation 08/06/21 Range/Units 16:35 PT 14.2 (12.2-14.9) Sec. INR 0.99 (0.87-1.13) CBC 08/06/21 08/07/21 Range/Units 16:35 04:00 WBC 4.2 L 1.0 L* (4.5-11.0) K/mm3 RBC 3.27 L 2.67 L (3.65-5.03) M/mm3 Hgb 8.5 L 7.0 L (10.1-14.3) gm/dl Hct 26.8 L 21.8 L (30.3-42.9) % Plt Count 124 L 82 L (140-440) K/mm3 Lymph # (Auto) 0.8 L (1.2-5.4) K/mm3 [place] # (Auto) 0.7 (0.0-0.8) K/mm3 Eos # (Auto) 0.1 (0.0-0.4) K/mm3 Baso # (Auto) 0.1 (0.0-0.1) K/mm3 Comprehensive Metabolic Panel 08/06/21 08/07/21 Range/Units 16:35 04:00 Sodium 133 L 133 L (137-145) mmol/L Potassium 4.2 D 3.2 L D (3.6-5.0) mmol/L Chloride 93.2 L 93.9 L (98-107) mmol/L Carbon Dioxide 28 28 (22-30) mmol/L BUN 21 H 23 H (7-17) mg/dL Creatinine 4.6 H 4.3 H (0.6-1.2) mg/dL Glucose 90 91 (65-100) mg/dL Calcium 8.3 L 8.1 L (8.4-10.2) mg/dL AST 18 (5-40) units/L ALT 7 (7-56) units/L Alkaline Phosphatase 102 (35-129) units/L Total Protein 6.2 L (6.3-8.2) g/dL Albumin 3.2 L (3.9-5) g/dL - Imaging and Cardiology EKG: report reviewed (V. tach: Repeat EKG normal sinus rhythm 96/min) - Telemetry EKG Rhythm: Paced
[2021-08-07] MEDS: LOSARTAN 25 MG TAB PO SCH ×2 (12:12→21:37)
--- NOTE | 2021-08-07 12:14 | Progress Note ---
Assessment and Plan - Patient Problems (1) Hypokalemia Current Visit: Yes Status: Acute Plan to address problem: Potassium improved yesterday with aggressive supplementation but is again a bit low this morning. We will dialyze on a 4K bath. We need to get records of previous work-up for etiology of hypokalemia. I am concerned about hypokalemic periodic paralysis and also thyrotoxic periodic paralysis. Will check TSH. (2) End stage renal disease on dialysis Current Visit: Yes Status: Chronic Plan to address problem: Hemodialysis this morning and then continue on a Thursday, Thursday and Thursday schedule. Metabolic alkalosis: Dialyze on a low bicarb bath 20 mmol to help correct alkalosis. 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 tach Interval history: Patient is in ICU receiving dialysis. Patient was not evaluated at the bedside today due to the COVID-19 pending status to limit exposure of the consulting commercial leasing agent and also for PPE preservation during the COVID-19 pandemic. I reviewed multidisciplinary notes and discussed with staff and physicians as needed. Objective - Exam Narrative Exam: Patient was not examined at the bedside today due to personal protective equipment preservation during the COVID-19 pandemic - Vital Signs Vital signs: Vital Signs - 12hr 08/07/21 08/07/21 08/07/21 00:15 00:30 00:45 Temperature Pulse Rate 70 70 70 Pulse Rate [ From Monitor] Respiratory 20 20 20 Rate Blood Pressure 133/65 133/64 134/64 O2 Sat by Pulse 100 100 100 Oximetry O2 Sat by Pulse Oximetry [ Bases] O2 Sat by Pulse Oximetry [ Bilateral Bases ] 08/07/21 08/07/21 08/07/21 01:00 01:15 01:30 Temperature Pulse Rate 70 70 70 Pulse Rate [ From Monitor] Respiratory 20 20 20 Rate Blood Pressure 138/67 134/65 139/68 O2 Sat by Pulse 100 100 100 Oximetry O2 Sat by Pulse Oximetry [ Bases] O2 Sat by Pulse Oximetry [ Bilateral Bases ] 08/07/21 08/07/21 08/07/21 01:45 02:01 02:15 Temperature Pulse Rate 70 70 70 Pulse Rate [ From Monitor] Respiratory 12 21 20 Rate Blood Pressure 139/68 134/71 134/71 O2 Sat by Pulse 100 100 100 Oximetry O2 Sat by Pulse Oximetry [ Bases] O2 Sat by Pulse Oximetry [ Bilateral Bases ] 08/07/21 08/07/21 08/07/21 02:31 02:45 03:01 Temperature Pulse Rate 70 70 70 Pulse Rate [ From Monitor] Respiratory 13 20 20 Rate Blood Pressure 143/119 163/73 144/59 O2 Sat by Pulse 93 100 100 Oximetry O2 Sat by Pulse Oximetry [ Bases] O2 Sat by Pulse Oximetry [ Bilateral Bases ] 08/07/21 08/07/21 08/07/21 03:15 03:31 03:45 Temperature Pulse Rate 70 70 70 Pulse Rate [ From Monitor] Respiratory 20 20 20 Rate Blood Pressure 144/59 146/65 146/65 O2 Sat by Pulse 100 100 100 Oximetry O2 Sat by Pulse Oximetry [ Bases] O2 Sat by Pulse Oximetry [ Bilateral Bases ] 08/07/21 08/07/21 08/07/21 04:00 04:01 04:06 Temperature 99.3 F Pulse Rate 70 70 70 Pulse Rate [ 70 From Monitor] Respiratory 20 17 Rate Blood Pressure 165/69 165/69 O2 Sat by Pulse 100 100 100 Oximetry O2 Sat by Pulse Oximetry [ Bases] O2 Sat by Pulse Oximetry [ Bilateral Bases ] 08/07/21 08/07/21 08/07/21 04:15 04:31 04:45 Temperature Pulse Rate 70 70 70 Pulse Rate [ From Monitor] Respiratory 18 20 20 Rate Blood Pressure 165/69 155/65 155/65 O2 Sat by Pulse 100 100 Oximetry O2 Sat by Pulse Oximetry [ Bases] O2 Sat by Pulse Oximetry [ Bilateral Bases ] 08/07/21 08/07/21 08/07/21 05:01 05:15 05:31 Temperature Pulse Rate 70 70 70 Pulse Rate [ From Monitor] Respiratory 20 20 20 Rate Blood Pressure 151/63 151/63 143/62 O2 Sat by Pulse 100 100 Oximetry O2 Sat by Pulse Oximetry [ Bases] O2 Sat by Pulse Oximetry [ Bilateral Bases ] 08/07/21 08/07/21 08/07/21 05:45 06:01 06:15 Temperature Pulse Rate 70 70 70 Pulse Rate [ From Monitor] Respiratory 20 20 21 Rate Blood Pressure 143/62 151/66 151/66 O2 Sat by Pulse 100 100 Oximetry O2 Sat by Pulse Oximetry [ Bases] O2 Sat by Pulse Oximetry [ Bilateral Bases ] 08/07/21 08/07/21 08/07/21 06:30 06:45 07:00 Temperature Pulse Rate 70 70 70 Pulse Rate [ From Monitor] Respiratory 16 12 12 Rate Blood Pressure 158/65 164/66 160/66 O2 Sat by Pulse Oximetry O2 Sat by Pulse Oximetry [ Bases] O2 Sat by Pulse Oximetry [ Bilateral Bases ] 08/07/21 08/07/21 08/07/21 07:15 07:30 07:46 Temperature Pulse Rate 70 70 70 Pulse Rate [ From Monitor] Respiratory 12 12 12 Rate Blood Pressure 169/70 167/69 160/67 O2 Sat by Pulse 100 Oximetry O2 Sat by Pulse Oximetry [ Bases] O2 Sat by Pulse Oximetry [ Bilateral Bases ] 08/07/21 08/07/21 08/07/21 08:00 08:16 08:30 Temperature 98.7 F Pulse Rate 70 70 70 Pulse Rate [ From Monitor] Respiratory 12 12 12 Rate Blood Pressure 160/67 158/67 158/67 O2 Sat by Pulse 100 100 Oximetry O2 Sat by Pulse Oximetry [ Bases] O2 Sat by Pulse Oximetry [ Bilateral Bases ] 08/07/21 08/07/21 08/07/21 08:46 09:00 09:16 Temperature 97.8 F Pulse Rate 70 70 70 Pulse Rate [ From Monitor] Respiratory 12 13 12 Rate Blood Pressure 162/71 162/71 166/74 O2 Sat by Pulse 100 100 Oximetry O2 Sat by Pulse 100 Oximetry [ Bases] O2 Sat by Pulse 100 Oximetry [ Bilateral Bases ] 08/07/21 08/07/21 08/07/21 09:21 09:30 09:45 Temperature Pulse Rate 70 70 70 Pulse Rate [ From Monitor] Respiratory 12 Rate Blood Pressure 171/77 171/77 161/72 O2 Sat by Pulse Oximetry O2 Sat by Pulse Oximetry [ Bases] O2 Sat by Pulse Oximetry [ Bilateral Bases ] 08/07/21 08/07/21 08/07/21 09:46 10:00 10:15 Temperature Pulse Rate 70 70 70 Pulse Rate [ From Monitor] Respiratory 12 12 Rate Blood Pressure 161/72 161/72 151/69 O2 Sat by Pulse 100 Oximetry O2 Sat by Pulse Oximetry [ Bases] O2 Sat by Pulse Oximetry [ Bilateral Bases ] 08/07/21 08/07/21 08/07/21 10:16 10:30 10:45 Temperature Pulse Rate 70 70 70 Pulse Rate [ From Monitor] Respiratory 12 12 Rate Blood Pressure 151/69 151/69 156/66 O2 Sat by Pulse 100 Oximetry O2 Sat by Pulse Oximetry [ Bases] O2 Sat by Pulse Oximetry [ Bilateral Bases ] 08/07/21 08/07/21 08/07/21 10:46 11:00 11:15 Temperature Pulse Rate 70 70 69 Pulse Rate [ From Monitor] Respiratory 12 Rate Blood Pressure 156/66 157/107 132/83 O2 Sat by Pulse 100 Oximetry O2 Sat by Pulse Oximetry [ Bases] O2 Sat by Pulse Oximetry [ Bilateral Bases ] 08/07/21 08/07/21 08/07/21 11:30 11:45 12:00 Temperature Pulse Rate 70 70 70 Pulse Rate [ From Monitor] Respiratory Rate Blood Pressure 141/69 136/63 131/63 O2 Sat by Pulse Oximetry O2 Sat by Pulse Oximetry [ Bases] O2 Sat by Pulse Oximetry [ Bilateral Bases ] - Lab 08/07/21 04:00 08/07/21 04:00 Most recent lab results ABG pH 7.479 pH Units (7.350-7.450) H 08/07/21 08:30 ABG pCO2 41.6 mm Hg 08/07/21 08:30 ABG pO2 130.2 mm Hg (80.0-90.0) H 08/07/21 08:30 ABG HCO3 30.3 mmol/L (20.0-26.0) H 08/07/21 08:30 ABG O2 Saturation 98.6 % (95.0-99.0) 08/07/21 08:30 Calcium 8.1 mg/dL (8.4-10.2) L 08/07/21 04:00 Phosphorus 3.20 mg/dL (2.5-4.5) D 08/07/21 04:00 Magnesium 1.80 mg/dL (1.7-2.3) 08/07/21 04:00 Medications & Allergies - Medications Allergies/Adverse Reactions: Allergies No Known Allergies Allergy (Unverified 07/10/21 20:57) Home Medications: Home Medications Medication Instructions Recorded Confirmed Last Taken Type Icosapent Ethyl [Vascepa] 2 gm PO BID 07/12/21 07/12/21 Unknown History Losartan [Cozaar] 25 mg PO BID 07/12/21 07/12/21 Unknown History ALBUTEROL NEB's [Proventil 0.083% 2.5 mg IH Q4HRT PRN nebu 07/15/21 Unknown Rx NEBS] Acetaminophen [Acetaminophen 650 mg AR Q4H PRN supp.rect 07/15/21 Unknown Rx SUPPOS] Acetaminophen [Acetaminophen TAB] 650 mg PO Q4H PRN tablet 07/15/21 Unknown Rx Amiodarone [Cordarone 200 MG TAB] 200 mg PO BID tablet 07/15/21 Unknown Rx AtorvaSTATin [Lipitor] 80 mg PO QHS tablet 07/15/21 Unknown Rx Clopidogrel [Plavix] 75 mg PO QDAY tablet 07/15/21 Unknown Rx Dextrose 50% in Water [D50W (25GM) 50 ml IV Q30MIN PRN syringe 07/15/21 Unknown Rx Syringe] Free Water 60 ml PO Q4HR oral.liqd 07/15/21 Unknown Rx Isosorbide Dinitrate [Isordil] 5 mg PO Q8HR tablet 07/15/21 Unknown Rx Lipase/Protease/Amylase [Pancreaze 1 each FEEDTUBE PRN PRN capsule 07/15/[address] 10,500 Unit] Lispro Insulin [HumaLOG] 0 unit SUB-Q Q6HR units 07/15/21 Unknown Rx Metoprolol [Lopressor TAB] 25 mg PO TID tablet 07/15/21 Unknown Rx Simple Syrup 30 ml FEEDTUBE PRN PRN oral.liqd 07/15/21 Unknown Rx hydrALAZINE [Apresoline INJ] 10 mg IV Q6H PRN vial 07/15/21 Unknown Rx Active Medications: Generic Name Dose Route Start Last Admin Trade Name Freq PRN Reason Stop Dose Admin Acetaminophen 650 mg 08/05/21 21:03 Acetaminophen 325 Mg Tab PO Q4H PRN Pain MILD(1-3)/Fever >100.5/COWART Acetaminophen 650 mg 08/06/21 16:30 08/06/21 16:30 Acetaminophen 650 Mg Rect Supp AR 650 mg Q6H PRN Administration Pain, Mild (1-3) Albuterol 2.5 mg 08/05/21 20:59 Albuterol 2.5 Mg/3 Ml Nebu IH Q4HRT PRN Shortness Of Breath Lipase/Protease/Amylase 1 each 08/07/21 09:47 Lipase 10,500/Protease 25,000/Amylase 43,750 (Units) Dr Cap FEEDTUBE PRN PRN For Clogged Feeding Tube Aspirin 81 mg 08/07/21 10:00 Aspirin 81 Mg Tab Chew PO QDAY JODI Atorvastatin Calcium 80 mg 08/05/21 22:00 08/07/21 00:53 Atorvastatin 40 Mg Tab PO Not Given QHS JODI Dextrose 25 ml 08/06/21 15:08 08/06/21 15:30 Dextrose 50% In Water (25gm) 50 Ml Syringe IV 25 ml Q30MIN PRN Administration Hypoglycemia Protocol Famotidine 10 mg 08/06/21 10:00 08/07/21 10:39 Famotidine 20 Mg/2 Ml Inj IV 10 mg BID JODI Administration Fentanyl 50 mcg 08/05/21 17:25 Fentanyl 100 Mcg/2 Ml Inj IV Q10MIN PRN ANALGESIA Hydralazine HCl 10 mg 08/06/21 04:21 08/06/21 16:24 Hydralazine 20 Mg/1 Ml Inj IV 10 mg Q6HR PRN Administration Hypertension Hydrophilic Ointment 1 applic 08/05/21 17:25 Lip Therapy Vaseline TP Q2HR PRN Dry Lips Fentanyl Citrate 2,000 mcg in 100 mls @ 3.213 mls/hr 08/05/21 18:00 08/07/21 06:43 Fentanyl Drip Premix IV 1 mcg/kg/hr TITR JODI 3.213 mls/hr Titration Protocol 1 MCG/KG/HR Amiodarone HCl 900 mg/ 500 mls @ 33.333 mls/hr 08/06/21 12:00 08/06/21 12:55 Dextrose IV 1 mg/min DIRECT JODI 33.333 mls/hr Administration Protocol 1 MG/MIN Propofol 1,000 mg in 100 mls @ 1.928 mls/hr 08/06/21 17:00 08/07/21 05:26 Diprivan 10 Mg/Ml IV 25 mcg/kg/min TITR JODI 9.638 mls/hr Administration Protocol 5 MCG/KG/MIN Nicardipine HCl 50 mg/ Sodium 250 mls @ 25 mls/hr 08/06/21 18:00 08/07/21 06:44 Chloride IV 0 mg/hr TITR JODI 0 mls/hr Titration Protocol 5 MG/HR Dextrose 1,000 mls @ 25 mls/hr 08/06/21 23:45 08/07/21 00:17 D10w IV 25 mls/hr DIRECT JODI Administration Sodium Chloride 100 mls @ 999 mls/hr 08/06/21 23:18 Nacl 0.9% IV GLENDY PRN Hypotension Lidocaine HCl/Dextrose 2,000 mg in 500 mls @ 15 mls/hr 08/07/21 05:00 Xylocaine/D5w 2gm/500ml Drip IV DIRECT JODI Protocol 1 MG/MIN Isosorbide Dinitrate 5 mg 08/05/21 22:00 08/07/21 05:29 Isosorbide Dinitrate 10 Mg Tab PO Not Given Q8HR [facility] Losartan Potassium 25 mg 08/05/21 22:00 08/06/21 22:06 Losartan 25 Mg Tab PO Not Given BID [facility] Metoclopramide HCl 5 mg 08/05/21 21:03 Metoclopramide 10 Mg/2 Ml Inj IV Q6H PRN Nausea And Vomiting Metoprolol Tartrate 25 mg 08/06/21 08:00 08/06/21 22:06 Metoprolol Tartrate 50 Mg Tab PO Not Given TID [facility] Multi-Ingred Cream/Lotion/Oil/Oint 1 applic 08/05/21 17:25 Mineral Oil/Petrolatum, White Ophth Oint 3.5 Gm OU Q4HR PRN Dry Eye(s) Ondansetron HCl 4 mg 08/05/21 21:03 Ondansetron 4 Mg/2 Ml Inj IV Q8H PRN Nausea And Vomiting Oxycodone/Acetaminophen 1 tab 08/05/21 21:03 Oxycodone /Acetaminophen 5-325mg Tab PO Q6H PRN Pain, Moderate (4-6) Potassium Chloride 40 meq 08/07/21 11:00 Potassium Chloride 20 Meq Packet FEEDTUBE 08/07/21 14:00 ONCE@1100 JODI Senna/Docusate Sodium 1 tab 08/05/21 22:00 08/07/21 00:55 Sennosides/Docusate Sodium 8.6/50 Mg Tab FEEDTUBE Not Given BID JODI Simple Syrup 15 ml 08/07/21 09:47 Simple Syrup 15 Ml FEEDTUBE PRN PRN Hypoglycemia Simple Syrup 30 ml 08/07/21 09:47 Simple Syrup 15 Ml FEEDTUBE PRN PRN Hypoglycemia Sodium Bicarbonate 325 mg 08/07/21 09:47 Sodium Bicarbonate 325 Mg Tab FEEDTUBE PRN PRN For Clogged Feeding Tube Sodium Chloride 10 ml 08/05/21 22:00 08/07/21 10:44 Sodium Chloride 0.9% 10 Ml Flush Syringe IV 10 ml BID JODI Administration Sodium Chloride 10 ml 08/05/21 21:03 Sodium Chloride 0.9% 10 Ml Flush Syringe IV PRN PRN LINE FLUSH
[2021-08-07] MEDS: AMIODARONE 900 MG in DEXTROSE 5% IN WATER 482 ML IV SCH (12:31)
[2021-08-07] MEDS: SENNOSIDES ORAL LIQD 8.8 MG/5 ML ORAL LIQD FEEDTUBE SCH ×2 (12:31→21:36)
[2021-08-07] MEDS: ASPIRIN 81 MG TAB CHEW PO SCH (12:33)
[2021-08-07] MEDS: fentaNYL DRIP Premix 2,000 MCG/100 ML BAG IV SCH (12:40)
[2021-08-07] MEDS: DEXTROSE 50% IN WATER (25GM) 50 ML SYRINGE IV PRN ×3 (13:31→23:22)
[2021-08-07] MEDS: METOPROLOL TARTRATE 50 MG TAB PO SCH ×3 (14:13→21:37)
--- NOTE | 2021-08-07 14:37 | Progress Note ---
Assessment and Plan 60 y/o female with known VT in the past, systolic heart failure with BIV AICD admitted with recurrent VT and electrolyte abnormality 08/07/21: Await transfer to [facility], continue supportive measures Follow up cards recs most likely needs ablation at [facility] Continue amio drip per cards CCt 31 minutes. Subjective Date of service: 08/07/21 Principal diagnosis: V. tach Interval history: no acute events. aWaiting COVID testing Objective Vital Signs - 12hr 08/07/21 08/07/21 08/07/21 02:31 02:45 03:01 Temperature Pulse Rate 70 70 70 Pulse Rate [ From Monitor] Pulse Rate [ Left Radial] Pulse Rate [ Right Radial] Respiratory 13 20 20 Rate Blood Pressure 143/119 163/73 144/59 O2 Sat by Pulse 93 100 100 Oximetry O2 Sat by Pulse Oximetry [ Bases] O2 Sat by Pulse Oximetry [ Bilateral Bases ] 08/07/21 08/07/21 08/07/21 03:15 03:31 03:45 Temperature Pulse Rate 70 70 70 Pulse Rate [ From Monitor] Pulse Rate [ Left Radial] Pulse Rate [ Right Radial] Respiratory 20 20 20 Rate Blood Pressure 144/59 146/65 146/65 O2 Sat by Pulse 100 100 100 Oximetry O2 Sat by Pulse Oximetry [ Bases] O2 Sat by Pulse Oximetry [ Bilateral Bases ] 08/07/21 08/07/21 08/07/21 04:00 04:01 04:06 Temperature 99.3 F Pulse Rate 70 70 70 Pulse Rate [ 70 From Monitor] Pulse Rate [ Left Radial] Pulse Rate [ Right Radial] Respiratory 20 17 Rate Blood Pressure 165/69 165/69 O2 Sat by Pulse 100 100 100 Oximetry O2 Sat by Pulse Oximetry [ Bases] O2 Sat by Pulse Oximetry [ Bilateral Bases ] 08/07/21 08/07/21 08/07/21 04:15 04:31 04:45 Temperature Pulse Rate 70 70 70 Pulse Rate [ From Monitor] Pulse Rate [ Left Radial] Pulse Rate [ Right Radial] Respiratory 18 20 20 Rate Blood Pressure 165/69 155/65 155/65 O2 Sat by Pulse 100 100 Oximetry O2 Sat by Pulse Oximetry [ Bases] O2 Sat by Pulse Oximetry [ Bilateral Bases ] 08/07/21 08/07/21 08/07/21 05:01 05:15 05:31 Temperature Pulse Rate 70 70 70 Pulse Rate [ From Monitor] Pulse Rate [ Left Radial] Pulse Rate [ Right Radial] Respiratory 20 20 20 Rate Blood Pressure 151/63 151/63 143/62 O2 Sat by Pulse 100 100 Oximetry O2 Sat by Pulse Oximetry [ Bases] O2 Sat by Pulse Oximetry [ Bilateral Bases ] 08/07/21 08/07/21 08/07/21 05:45 06:01 06:15 Temperature Pulse Rate 70 70 70 Pulse Rate [ From Monitor] Pulse Rate [ Left Radial] Pulse Rate [ Right Radial] Respiratory 20 20 21 Rate Blood Pressure 143/62 151/66 151/66 O2 Sat by Pulse 100 100 Oximetry O2 Sat by Pulse Oximetry [ Bases] O2 Sat by Pulse Oximetry [ Bilateral Bases ] 08/07/21 08/07/21 08/07/21 06:30 06:45 07:00 Temperature Pulse Rate 70 70 70 Pulse Rate [ From Monitor] Pulse Rate [ Left Radial] Pulse Rate [ Right Radial] Respiratory 16 12 12 Rate Blood Pressure 158/65 164/66 160/66 O2 Sat by Pulse Oximetry O2 Sat by Pulse Oximetry [ Bases] O2 Sat by Pulse Oximetry [ Bilateral Bases ] 08/07/21 08/07/21 08/07/21 07:15 07:30 07:46 Temperature Pulse Rate 70 70 70 Pulse Rate [ From Monitor] Pulse Rate [ Left Radial] Pulse Rate [ Right Radial] Respiratory 12 12 12 Rate Blood Pressure 169/70 167/69 160/67 O2 Sat by Pulse 100 Oximetry O2 Sat by Pulse Oximetry [ Bases] O2 Sat by Pulse Oximetry [ Bilateral Bases ] 08/07/21 08/07/21 08/07/21 08:00 08:16 08:30 Temperature 98.7 F Pulse Rate 70 70 70 Pulse Rate [ 70 From Monitor] Pulse Rate [ 70 Left Radial] Pulse Rate [ 70 Right Radial] Respiratory 12 12 12 Rate Blood Pressure 160/67 158/67 158/67 O2 Sat by Pulse 100 100 100 Oximetry O2 Sat by Pulse Oximetry [ Bases] O2 Sat by Pulse Oximetry [ Bilateral Bases ] 08/07/21 08/07/21 08/07/21 08:46 09:00 09:16 Temperature 97.8 F Pulse Rate 70 70 70 Pulse Rate [ From Monitor] Pulse Rate [ Left Radial] Pulse Rate [ Right Radial] Respiratory 12 13 12 Rate Blood Pressure 162/71 162/71 166/74 O2 Sat by Pulse 100 100 Oximetry O2 Sat by Pulse 100 Oximetry [ Bases] O2 Sat by Pulse 100 Oximetry [ Bilateral Bases ] 08/07/21 08/07/21 08/07/21 09:21 09:30 09:45 Temperature Pulse Rate 70 70 70 Pulse Rate [ From Monitor] Pulse Rate [ Left Radial] Pulse Rate [ Right Radial] Respiratory 12 Rate Blood Pressure 171/77 171/77 161/72 O2 Sat by Pulse Oximetry O2 Sat by Pulse Oximetry [ Bases] O2 Sat by Pulse Oximetry [ Bilateral Bases ] 08/07/21 08/07/21 08/07/21 09:46 10:00 10:15 Temperature Pulse Rate 70 70 70 Pulse Rate [ From Monitor] Pulse Rate [ Left Radial] Pulse Rate [ Right Radial] Respiratory 12 12 Rate Blood Pressure 161/72 161/72 151/69 O2 Sat by Pulse 100 Oximetry O2 Sat by Pulse Oximetry [ Bases] O2 Sat by Pulse Oximetry [ Bilateral Bases ] 08/07/21 08/07/21 08/07/21 10:16 10:30 10:45 Temperature Pulse Rate 70 70 70 Pulse Rate [ From Monitor] Pulse Rate [ Left Radial] Pulse Rate [ Right Radial] Respiratory 12 12 Rate Blood Pressure 151/69 151/69 156/66 O2 Sat by Pulse 100 Oximetry O2 Sat by Pulse Oximetry [ Bases] O2 Sat by Pulse Oximetry [ Bilateral Bases ] 08/07/21 08/07/21 08/07/21 10:46 11:00 11:15 Temperature Pulse Rate 70 70 69 Pulse Rate [ From Monitor] Pulse Rate [ Left Radial] Pulse Rate [ Right Radial] Respiratory 12 12 Rate Blood Pressure 156/66 156/66 132/83 O2 Sat by Pulse 100 Oximetry O2 Sat by Pulse Oximetry [ Bases] O2 Sat by Pulse Oximetry [ Bilateral Bases ] 08/07/21 08/07/21 08/07/21 11:16 11:30 11:45 Temperature Pulse Rate 70 70 70 Pulse Rate [ From Monitor] Pulse Rate [ Left Radial] Pulse Rate [ Right Radial] Respiratory 11 L 13 Rate Blood Pressure 132/63 132/63 136/63 O2 Sat by Pulse 100 100 Oximetry O2 Sat by Pulse Oximetry [ Bases] O2 Sat by Pulse Oximetry [ Bilateral Bases ] 08/07/21 08/07/21 08/07/21 11:46 12:00 12:12 Temperature 98.7 F Pulse Rate 70 70 70 Pulse Rate [ 70 From Monitor] Pulse Rate [ 70 Left Radial] Pulse Rate [ 70 Right Radial] Respiratory 12 12 Rate Blood Pressure 136/63 136/63 131/63 O2 Sat by Pulse 100 100 Oximetry O2 Sat by Pulse Oximetry [ Bases] O2 Sat by Pulse Oximetry [ Bilateral Bases ] 08/07/21 08/07/21 08/07/21 12:15 12:16 12:21 Temperature Pulse Rate 69 70 70 Pulse Rate [ From Monitor] Pulse Rate [ Left Radial] Pulse Rate [ Right Radial] Respiratory 12 Rate Blood Pressure 131/64 131/64 127/63 O2 Sat by Pulse 100 Oximetry O2 Sat by Pulse Oximetry [ Bases] O2 Sat by Pulse Oximetry [ Bilateral Bases ] 08/07/21 08/07/21 08/07/21 12:30 12:40 12:46 Temperature 97.6 F Pulse Rate 70 70 70 Pulse Rate [ From Monitor] Pulse Rate [ Left Radial] Pulse Rate [ Right Radial] Respiratory 12 12 Rate Blood Pressure 168/81 155/74 155/74 O2 Sat by Pulse 100 100 Oximetry O2 Sat by Pulse 100 Oximetry [ Bases] O2 Sat by Pulse 100 Oximetry [ Bilateral Bases ] 08/07/21 08/07/21 13:00 14:13 Temperature Pulse Rate 70 70 Pulse Rate [ From Monitor] Pulse Rate [ Left Radial] Pulse Rate [ Right Radial] Respiratory 12 Rate Blood Pressure 155/74 164/76 O2 Sat by Pulse Oximetry O2 Sat by Pulse Oximetry [ Bases] O2 Sat by Pulse Oximetry [ Bilateral Bases ] Constitutional: no acute distress, other (intubated and sedated) Eyes: non-icteric ENT: other (orally intubated) Neck: supple Effort: normal Ascultation: Bilateral: clear Percussion: Bilateral: not dull Gastrointestinal: soft, non-tender Extremities: no edema Neurologic: unable to assess CBC and BMP: 08/07/21 04:00 08/07/21 04:00 ABG, PT/INR, D-dimer: ABG ABG pH 7.479 pH Units (7.350-7.450) H 08/07/21 08:30 ABG pCO2 41.6 mm Hg 08/07/21 08:30 ABG pO2 130.2 mm Hg (80.0-90.0) H 08/07/21 08:30 ABG O2 Saturation 98.6 % (95.0-99.0) 08/07/21 08:30 PT/INR, D-dimer PT 14.2 Sec. (12.2-14.9) 08/06/21 16:35 INR 0.99 (0.87-1.13) 08/06/21 16:35 Abnormal lab findings: Abnormal Labs 08/05/21 08/05/21 08/05/21 15:55 15:55 18:50 WBC 3.7 L RBC 2.98 L Hgb 7.5 L Hct 23.8 L MCH 25 L RDW 18.9 H Plt Count 134 L Lymph % (Auto) [place] % (Auto) Lymph # (Auto) Seg Neutrophils % Seg Neuts % (Manual) Lymphocytes % (Manual) Monocytes % (Manual) 18.0 H Eosinophils % (Manual) Basophils % (Manual) 2.0 H Seg Neutrophils # Seg Neutrophils # Man Lymphocytes # (Manual) 0.9 L APTT ABG pH 7.523 H ABG pO2 47.1 L ABG HCO3 34.6 H ABG O2 Saturation 85.4 L ABG Base Excess 10.8 H ABG Hemoglobin 7.3 L Oxyhemoglobin 83.6 L Sodium Potassium 2.7 L* Chloride 93.8 L Carbon Dioxide 33 H BUN Creatinine 2.8 H Glucose 124 H POC Glucose Calcium 8.2 L ALT < 5 L Troponin T 0.126 H* Total Protein Albumin 3.5 L Triglycerides 202 H HDL Cholesterol 32 L Crossmatch 08/05/21 08/05/21 08/06/21 18:56 Unknown 04:20 WBC RBC Hgb Hct MCH RDW Plt Count Lymph % (Auto) [place] % (Auto) Lymph # (Auto) Seg Neutrophils % Seg Neuts % (Manual) Lymphocytes % (Manual) Monocytes % (Manual) Eosinophils % (Manual) Basophils % (Manual) Seg Neutrophils # Seg Neutrophils # Man Lymphocytes # (Manual) APTT ABG pH 7.575 H 7.606 H* ABG pO2 142.9 H 111.2 H ABG HCO3 33.2 H 33.6 H ABG O2 Saturation ABG Base Excess 10.4 H 11.2 H ABG Hemoglobin 6.6 L 6.8 L Oxyhemoglobin Sodium Potassium Chloride Carbon Dioxide BUN Creatinine Glucose POC Glucose Calcium ALT Troponin T 0.183 H* D Total Protein Albumin Triglycerides HDL Cholesterol Crossmatch 08/06/21 08/06/21 08/06/21 04:29 04:29 04:29 WBC 2.5 L RBC 2.70 L Hgb 6.8 L Hct 21.3 L MCH 25 L RDW 18.1 H Plt Count 126 L Lymph % (Auto) 45.0 H [place] % (Auto) 13.6 H Lymph # (Auto) 1.1 L Seg Neutrophils % 37.3 L Seg Neuts % (Manual) Lymphocytes % (Manual) Monocytes % (Manual) Eosinophils % (Manual) Basophils % (Manual) Seg Neutrophils # 0.9 L Seg Neutrophils # Man Lymphocytes # (Manual) APTT 38.8 H ABG pH ABG pO2 ABG HCO3 ABG O2 Saturation ABG Base Excess ABG Hemoglobin Oxyhemoglobin Sodium 136 L Potassium 3.0 L Chloride 92.6 L Carbon Dioxide 32 H BUN Creatinine 3.8 H Glucose POC Glucose Calcium ALT Troponin T Total Protein 5.8 L Albumin 3.1 L Triglycerides HDL Cholesterol Crossmatch 08/06/21 08/06/21 08/06/21 05:30 07:26 07:26 WBC RBC Hgb 7.0 L Hct 22.5 L MCH RDW Plt Count 127 L Lymph % (Auto) [place] % (Auto) Lymph # (Auto) Seg Neutrophils % Seg Neuts % (Manual) Lymphocytes % (Manual) Monocytes % (Manual) Eosinophils % (Manual) Basophils % (Manual) Seg Neutrophils # Seg Neutrophils # Man Lymphocytes # (Manual) APTT 37.1 H ABG pH ABG pO2 ABG HCO3 ABG O2 Saturation ABG Base Excess ABG Hemoglobin Oxyhemoglobin Sodium Potassium Chloride Carbon Dioxide BUN Creatinine Glucose POC Glucose Calcium ALT Troponin T Total Protein Albumin Triglycerides HDL Cholesterol Crossmatch See Detail 08/06/21 08/06/21 08/06/21 08:06 14:50 16:03 WBC RBC Hgb Hct MCH RDW Plt Count Lymph % (Auto) [place] % (Auto) Lymph # (Auto) Seg Neutrophils % Seg Neuts % (Manual) Lymphocytes % (Manual) Monocytes % (Manual) Eosinophils % (Manual) Basophils % (Manual) Seg Neutrophils # Seg Neutrophils # Man Lymphocytes # (Manual) APTT ABG pH ABG pO2 ABG HCO3 ABG O2 Saturation ABG Base Excess ABG Hemoglobin Oxyhemoglobin Sodium Potassium 3.1 L Chloride 92.4 L Carbon Dioxide 33 H BUN Creatinine 3.9 H Glucose POC Glucose 59 L 121 H Calcium ALT Troponin T Total Protein Albumin Triglycerides HDL Cholesterol Crossmatch 08/06/21 08/06/21 08/06/21 16:35 16:35 17:31 WBC 4.2 L RBC 3.27 L Hgb 8.5 L Hct 26.8 L MCH 26 L RDW 18.7 H Plt Count 124 L Lymph % (Auto) [place] % (Auto) 15.5 H Lymph # (Auto) 0.8 L Seg Neutrophils % Seg Neuts % (Manual) Lymphocytes % (Manual) Monocytes % (Manual) Eosinophils % (Manual) Basophils % (Manual) Seg Neutrophils # Seg Neutrophils # Man Lymphocytes # (Manual) APTT ABG pH ABG pO2 ABG HCO3 ABG O2 Saturation ABG Base Excess ABG Hemoglobin Oxyhemoglobin Sodium 133 L Potassium Chloride 93.2 L Carbon Dioxide BUN 21 H Creatinine 4.6 H Glucose POC Glucose 62 L Calcium 8.3 L ALT Troponin T Total Protein 6.2 L Albumin 3.2 L Triglycerides HDL Cholesterol Crossmatch 08/06/21 08/06/21 08/07/21 18:14 18:22 04:00 WBC 1.0 L* RBC 2.67 L Hgb 7.0 L Hct 21.8 L MCH 26 L RDW 18.7 H Plt Count 82 L Lymph % (Auto) [place] % (Auto) Lymph # (Auto) Seg Neutrophils % Seg Neuts % (Manual) 16.0 L Lymphocytes % (Manual) 60.0 H Monocytes % (Manual) Eosinophils % (Manual) 11.0 H Basophils % (Manual) 4.0 H Seg Neutrophils # Seg Neutrophils # Man 0.2 L Lymphocytes # (Manual) 0.6 L APTT ABG pH 7.565 H ABG pO2 113.3 H ABG HCO3 29.4 H ABG O2 Saturation ABG Base Excess 6.9 H ABG Hemoglobin 8.3 L Oxyhemoglobin Sodium Potassium Chloride Carbon Dioxide BUN Creatinine Glucose POC Glucose 148 H Calcium ALT Troponin T Total Protein Albumin Triglycerides HDL Cholesterol Crossmatch 08/07/21 08/07/21 08/07/21 04:00 04:25 08:30 WBC RBC Hgb Hct MCH RDW Plt Count Lymph % (Auto) [place] % (Auto) Lymph # (Auto) Seg Neutrophils % Seg Neuts % (Manual) Lymphocytes % (Manual) Monocytes % (Manual) Eosinophils % (Manual) Basophils % (Manual) Seg Neutrophils # Seg Neutrophils # Man Lymphocytes # (Manual) APTT ABG pH 7.609 H* 7.479 H ABG pO2 121.4 H 130.2 H ABG HCO3 28.5 H 30.3 H ABG O2 Saturation ABG Base Excess 7.2 H 6.2 H ABG Hemoglobin 10.7 L 8.1 L Oxyhemoglobin Sodium 133 L Potassium 3.2 L D Chloride 93.9 L Carbon Dioxide BUN 23 H Creatinine 4.3 H Glucose POC Glucose Calcium 8.1 L ALT Troponin T Total Protein Albumin Triglycerides HDL Cholesterol Crossmatch 08/07/21 13:18 WBC RBC Hgb Hct MCH RDW Plt Count Lymph % (Auto) [place] % (Auto) Lymph # (Auto) Seg Neutrophils % Seg Neuts % (Manual) Lymphocytes % (Manual) Monocytes % (Manual) Eosinophils % (Manual) Basophils % (Manual) Seg Neutrophils # Seg Neutrophils # Man Lymphocytes # (Manual) APTT ABG pH ABG pO2 ABG HCO3 ABG O2 Saturation ABG Base Excess ABG Hemoglobin Oxyhemoglobin Sodium Potassium Chloride Carbon Dioxide BUN Creatinine Glucose POC Glucose 67 L Calcium ALT Troponin T Total Protein Albumin Triglycerides HDL Cholesterol Crossmatch
[2021-08-07] MEDS ORDERED: SUCCINYLCHOLINE CHLORIDE 200 MG/10 ML INJ MDV ONE (16:15)
[2021-08-07] MEDS ORDERED: ETOMIDATE 20 MG/10 ML INJ IV ONE (16:15)
--- NOTE | 2021-08-07 17:25 | Progress Note ---
Assessment and Plan Assessment and plan: This is 60-year-old female with ESRD on HD, recurrent AICD discharges, V. tach, cardiac arrest, anemia of chronic disease, CAD, systolic HF and HTN admitted for V. tach and severe hypokalemia Neuro: Sedated -Sedated with fentanyl and propofol -RASS goal -1 to -2 -Avoid delirium -Reorientation as needed -SAT/SBT when appropriate CV: Recurrent V. tach, NSTEMI, h/o s/p AICD implantation, systolic heart failure, V. tach, HTN -Cardiology consulted, appreciate recommendations -S/p lidocaine drip -S/p Cardene drip -Restarted home p.o. antihypertensive regimen -Amiodarone drip -Awaiting transfer to [facility] -Continue Lipitor Respiratory: Intubated for airway protection -CCM consulted, appreciate recommendations -Intubated in the ED on 08/05 with a 6.50 ETT at 21 at the lips -A.m. vent settings assist-control rate 12, tidal volume 400, PEEP 6, FiO2 45% -See RT notes for titration -A.m. ABG and CXR noted -VAP bundle -SPO2 monitoring GI: NAD -Nutrition consult for tube feeding -We held off tube feeding initiation today in setting of possible transfer to [facility] and surgery -We will address tube feeding tomorrow -PPI -BR: Senokot : ESRD on HD, hyponatremia, hypokalemia, hypochloremia -Nephrology consulted, appreciate recommendations -HD per nephrology -Avoid nephrotoxic medications -Renally dose medications -Strict intake and output -Replete potassium ID: NAD -Monitor WBC and fever curve -Follow-up blood culture x2 and sputum culture Heme: Thrombocytopenia, acute on chronic anemia of chronic disease, leukopenia -S/p 1 unit PRBC -Noted to have bloody drainage from mouth and nose -Trend CBC -Transfuse for hemoglobin less than 7 -Epogen per nephrology -Avoid chemical anticoagulation in setting of thrombocytopenia -SCDs to bilateral ultrasound in bed Endo: Hypoglycemia -D10 drip at 30ml/hr -Avoid hypoglycemia -Accu-Cheks every 4 Critical care statement The high probability of a clinically significant sudden or life-threatening deterioration of the cardiorespiratory system and endocrine system required my full and direct attention, intervention and postoperative management. The aggregate critical care time was 60 minutes. The time is in addition to time spent performing reported procedures but includes the followin: Data review and interpretation 2: Patient assessment and monitoring of vital signs 3: Documentation 4:: Medication orders and management Disposition Plan: icu Total Time Spent with Patient (Minutes): 60 History Interval history: This is 60-year-old female with ESRD on HD, recurrent AICD discharges, systolic heart failure, V. tach, cardiac arrest, anemia, CAD and HTN who presents to the emergency department from her dialysis center on 08/05 for severe muscle spasms secondary to AICD discharges per patient. She also had questionable seizures in the dialysis center. Patient was started on amiodarone and lidocaine. Patient was intubated for airway protection in the emergency department and work-up also revealed severe hypokalemia. Patient was admitted to the hospital service with consult cardiology, nephrology and [facility]. 08/06/2021: Patient is sedated, Transfer to [facility] arranged 08/07: COVID-19 PCR negative. Patient received hemodialysis today. Off Cardene drip. Patient has been OG tube for p.o. BP medications. Thrombocytopenia persists therefore anticoagulation is held. Patient is leukopenia also. We will continue to trend CBC. Persistent hypoglycemia and D10 drip increased to 30 ml/hr. negative Covid test relayed to [facility]. Hospitalist Physical - Constitutional Vitals: Temp Pulse Resp BP Pulse Ox 97.6 F 70 12 153/79 100 08/07/21 12:30 08/07/21 15:52 08/07/21 13:00 08/07/21 15:52 08/07/21 15:52 General appearance: Present: no acute distress, well-nourished - EENT Eyes: Present: PERRL, EOM intact ENT: hearing intact, clear oral mucosa - Neck Neck: Present: normal ROM - Respiratory Respiratory effort: normal Respiratory: bilateral: diminished - Cardiovascular Rhythm: regular Heart Sounds: Present: S1 & S2. Absent: systolic murmur, diastolic murmur - Extremities Extremities: no ischemia, pulses intact, pulses symmetrical, No edema, normal temperature, normal color Peripheral Pulses: within normal limits - Abdominal General gastrointestinal: soft, non-tender, non-distended, normal bowel sounds - Integumentary Integumentary: Present: warm, dry - Psychiatric Psychiatric: other (sedated) - Neurologic Neurologic: other (sedated) - Allied Health Allied health notes reviewed: nursing, RT, social work HEART Score - HEART Score Age: 45-65 Risk factors: > 3 risk factors or hx of atherosclerotic disease Troponin: Troponin T 0.183 ng/mL (0.00-0.029) H* D 08/05/21 18:56 Troponin: 1-3x normal limit - Critical Actions Critical Actions: 4-6 pts:12-16.6% risk of adverse cardiac event. Should be admitted Results - Labs CBC & Chem 7: 08/07/21 04:00 08/07/21 04:00 Labs: Laboratory Last Values WBC 1.0 K/mm3 (4.5-11.0) L* 08/07/21 04:00 RBC 2.67 M/mm3 (3.65-5.03) L 08/07/21 04:00 Hgb 7.0 gm/dl (10.1-14.3) L 08/07/21 04:00 Hct 21.8 % (30.3-42.9) L 08/07/21 04:00 MCV 82 fl (79-97) 08/07/21 04:00 MCH 26 pg (28-32) L 08/07/21 04:00 MCHC 32 % (30-34) 08/07/21 04:00 RDW 18.7 % (13.2-15.2) H 08/07/21 04:00 Plt Count 82 K/mm3 (140-440) L 08/07/21 04:00 Lymph % (Auto) [employer] 08/07/21 04:00 [place] % (Auto) 15.5 % (0.0-7.3) H 08/06/21 16:35 Eos % (Auto) 2.2 % (0.0-4.3) 08/06/21 16:35 Baso % (Auto) [employer] 08/07/21 04:00 Lymph # (Auto) 0.8 K/mm3 (1.2-5.4) L 08/06/21 16:35 [place] # (Auto) 0.7 K/mm3 (0.0-0.8) 08/06/21 16:35 Eos # (Auto) 0.1 K/mm3 (0.0-0.4) 08/06/21 16:35 Baso # (Auto) 0.1 K/mm3 (0.0-0.1) 08/06/21 16:35 Add Manual Diff Complete 08/07/21 04:00 Total Counted 100 08/07/21 04:00 Seg Neutrophils % [employer] 08/07/21 04:00 Seg Neuts % (Manual) 16.0 % (40.0-70.0) L 08/07/21 04:00 Lymphocytes % (Manual) 60.0 % (13.4-35.0) H 08/07/21 04:00 Reactive Lymphs % (Man) 5.0 % 08/07/21 04:00 Monocytes % (Manual) 18.0 % (0.0-7.3) H 08/05/21 15:55 Eosinophils % (Manual) 11.0 % (0.0-4.3) H 08/07/21 04:00 Basophils % (Manual) 4.0 % (0.0-1.8) H 08/07/21 04:00 Metamyelocytes % 4.0 % 08/07/21 04:00 Nucleated RBC % Not Reportable 08/07/21 04:00 Seg Neutrophils # 2.6 K/mm3 (1.8-7.7) 08/06/21 16:35 Seg Neutrophils # Man 0.2 K/mm3 (1.8-7.7) L 08/07/21 04:00 Band Neutrophils # 0.0 K/mm3 08/07/21 04:00 Lymphocytes # (Manual) 0.6 K/mm3 (1.2-5.4) L 08/07/21 04:00 Abs React Lymphs (Man) 0.1 K/mm3 08/07/21 04:00 Monocytes # (Manual) 0.0 K/mm3 (0.0-0.8) 08/07/21 04:00 Eosinophils # (Manual) 0.1 K/mm3 (0.0-0.4) 08/07/21 04:00 Basophils # (Manual) 0.0 K/mm3 (0.0-0.1) 08/07/21 04:00 Metamyelocytes # 0.0 K/mm3 08/07/21 04:00 Myelocytes # 0.0 K/mm3 08/07/21 04:00 Promyelocytes # 0.0 K/mm3 08/07/21 04:00 Blast Cells # 0.0 K/mm3 08/07/21 04:00 WBC Morphology Not Reportable 08/07/21 04:00 WBC Morphology TNR 08/07/21 04:00 Hypersegmented Neuts Not Reportable 08/07/21 04:00 Hyposegmented Neuts Not Reportable 08/07/21 04:00 Hypogranular Neuts Not Reportable 08/07/21 04:00 Smudge Cells Not Reportable 08/07/21 04:00 Toxic Granulation Not Reportable 08/07/21 04:00 Toxic Vacuolation Not Reportable 08/07/21 04:00 Dohle Bodies Not Reportable 08/07/21 04:00 Pelger-Huet Anomaly Not Reportable 08/07/21 04:00 Claudio Rods Not Reportable 08/07/21 04:00 Platelet Estimate Consistent w auto 08/07/21 04:00 Clumped Platelets Not Reportable 08/07/21 04:00 Plt Clumps, EDTA Not Reportable 08/07/21 04:00 Large Platelets Not Reportable 08/07/21 04:00 Giant Platelets Not Reportable 08/07/21 04:00 Platelet Satelliting Not Reportable 08/07/21 04:00 Plt Morphology Comment Not Reportable 08/07/21 04:00 RBC Morphology Not Reportable 08/07/21 04:00 Dimorphic RBCs Not Reportable 08/07/21 04:00 Polychromasia Not Reportable 08/07/21 04:00 Hypochromasia 1+ 08/07/21 04:00 Poikilocytosis Not Reportable 08/07/21 04:00 Anisocytosis Not Reportable 08/07/21 04:00 Microcytosis Not Reportable 08/07/21 04:00 Macrocytosis Not Reportable 08/07/21 04:00 Spherocytes Not Reportable 08/07/21 04:00 Pappenheimer Bodies Not Reportable 08/07/21 04:00 Sickle Cells Not Reportable 08/07/21 04:00 Target Cells Few 08/07/21 04:00 Tear Drop Cells Few 08/07/21 04:00 Ovalocytes Not Reportable 08/07/21 04:00 Helmet Cells Not Reportable 08/07/21 04:00 Diaz-Argos Bodies Not Reportable 08/07/21 04:00 Montrose Rings Not Reportable 08/07/21 04:00 Case Cells Not Reportable 08/07/21 04:00 Bite Cells Not Reportable 08/07/21 04:00 Crenated Cell Not Reportable 08/07/21 04:00 Elliptocytes Not Reportable 08/07/21 04:00 Acanthocytes (Spur) Not Reportable 08/07/21 04:00 Rouleaux Not Reportable 08/07/21 04:00 Hemoglobin C Crystals Not Reportable 08/07/21 04:00 Schistocytes Not Reportable 08/07/21 04:00 Malaria parasites Not Reportable 08/07/21 04:00 Aleks Bodies Not Reportable 08/07/21 04:00 Hem Pathologist Commnt No 08/07/21 04:00 PT 14.2 Sec. (12.2-14.9) 08/06/21 16:35 INR 0.99 (0.87-1.13) 08/06/21 16:35 APTT 37.1 Sec. (24.2-36.6) H 08/06/21 07:26 ABG pH 7.479 pH Units (7.350-7.450) H 08/07/21 08:30 ABG pCO2 41.6 mm Hg 08/07/21 08:30 ABG pO2 130.2 mm Hg (80.0-90.0) H 08/07/21 08:30 ABG HCO3 30.3 mmol/L (20.0-26.0) H 08/07/21 08:30 ABG O2 Saturation 98.6 % (95.0-99.0) 08/07/21 08:30 ABG O2 Content 11.3 (0.0-44) 08/07/21 08:30 ABG Base Excess 6.2 mmol/L (-2.0-3.0) H 08/07/21 08:30 ABG Hemoglobin 8.1 gm/dl (12.0-16.0) L 08/07/21 08:30 ABG Carboxyhemoglobin 1.3 % (0.0-5.0) 08/07/21 08:30 ABG Methemoglobin 0.5 % (0.0-1.5) 08/07/21 08:30 Oxyhemoglobin 96.8 % (95.0-99.0) 08/07/21 08:30 FiO2 15 % 08/07/21 08:30 Sodium 133 mmol/L (137-145) L 08/07/21 04:00 Potassium 3.2 mmol/L (3.6-5.0) L D 08/07/21 04:00 Chloride 93.9 mmol/L (98-107) L 08/07/21 04:00 Carbon Dioxide 28 mmol/L (22-30) 08/07/21 04:00 Anion Gap 14 mmol/L 08/07/21 04:00 BUN 23 mg/dL (7-17) H 08/07/21 04:00 Creatinine 4.3 mg/dL (0.6-1.2) H 08/07/21 04:00 Estimated GFR 13 ml/min 08/07/21 04:00 BUN/Creatinine Ratio 5 % 08/07/21 04:00 Glucose 91 mg/dL (65-100) 08/07/21 04:00 POC Glucose 90 mg/dL (70-105) 08/07/21 16:43 Calcium 8.1 mg/dL (8.4-10.2) L 08/07/21 04:00 Phosphorus 3.20 mg/dL (2.5-4.5) D 08/07/21 04:00 Magnesium 1.80 mg/dL (1.7-2.3) 08/07/21 04:00 Total Bilirubin 0.70 mg/dL (0.1-1.2) 08/06/21 16:35 AST 18 units/L (5-40) 08/06/21 16:35 ALT 7 units/L (7-56) 08/06/21 16:35 Alkaline Phosphatase 102 units/L (35-129) 08/06/21 16:35 Troponin T 0.183 ng/mL (0.00-0.029) H* D 08/05/21 18:56 Total Protein 6.2 g/dL (6.3-8.2) L 08/06/21 16:35 Albumin 3.2 g/dL (3.9-5) L 08/06/21 16:35 Albumin/Globulin Ratio 1.1 % 08/06/21 16:35 Triglycerides 202 mg/dL (2-149) H 08/05/21 15:55 Cholesterol 170 mg/dL (50-199) 08/05/21 15:55 LDL Cholesterol Direct 106 mg/dL (50-130) 08/05/21 15:55 HDL Cholesterol 32 mg/dL (40-59) L 08/05/21 15:55 Cholesterol/HDL Ratio 5.31 % 08/05/21 15:55 TSH 7.070 mlU/mL (0.270-4.200) H 08/07/21 13:30 Coronavirus (PCR) Negative (Negative) 08/07/21 Unknown Blood Type O POSITIVE 08/06/21 05:30 Antibody Screen Negative 08/06/21 05:30 Crossmatch See Detail 08/06/21 05:30 Microbiology: Microbiology 08/06/21 18:48 Peripheral/Venous Blood Culture - Preliminary Culture in Progress 08/06/21 18:48 Peripheral/Venous Blood Culture - Preliminary Culture in Progress 08/05/21 Unknown Tracheal Aspirate Sputum Culture - Preliminary Active Medications - Current Medications Current Medications: Generic Name Dose Route Start Last Admin Trade Name Freq PRN Reason Stop Dose Admin Acetaminophen 650 mg 08/05/21 21:03 Acetaminophen 325 Mg Tab PO Q4H PRN Pain MILD(1-3)/Fever >100.5/COWART Acetaminophen 650 mg 08/06/21 16:30 08/06/21 16:30 Acetaminophen 650 Mg Rect Supp CA 650 mg Q6H PRN Administration Pain, Mild (1-3) Albuterol 2.5 mg 08/05/21 20:59 Albuterol 2.5 Mg/3 Ml Nebu IH Q4HRT PRN Shortness Of Breath Lipase/Protease/Amylase 1 each 08/07/21 09:47 Lipase 10,500/Protease 25,000/Amylase 43,750 (Units) Dr Thomas FEEDTUBE PRN PRN For Clogged Feeding Tube Aspirin 81 mg 08/07/21 10:00 08/07/21 12:33 Aspirin 81 Mg Tab Chew PO Not Given QDAY JODI Atorvastatin Calcium 80 mg 08/05/21 22:00 08/07/21 00:53 Atorvastatin 40 Mg Tab PO Not Given QHS JODI Dextrose 25 ml 08/06/21 15:08 08/07/21 16:44 Dextrose 50% In Water (25gm) 50 Ml Syringe IV 20 ml Q30MIN PRN Administration Hypoglycemia Protocol Famotidine 10 mg 08/06/21 10:00 08/07/21 10:39 Famotidine 20 Mg/2 Ml Inj IV 10 mg BID JODI Administration Fentanyl 50 mcg 08/05/21 17:25 Fentanyl 100 Mcg/2 Ml Inj IV Q10MIN PRN ANALGESIA Hydralazine HCl 10 mg 08/06/21 04:21 08/06/21 16:24 Hydralazine 20 Mg/1 Ml Inj IV 10 mg Q6HR PRN Administration Hypertension Hydrophilic Ointment 1 applic 08/05/21 17:25 Lip Therapy Vaseline TP Q2HR PRN Dry Lips Fentanyl Citrate 2,000 mcg in 100 mls @ 3.213 mls/hr 08/05/21 18:00 08/07/21 12:40 Fentanyl Drip Premix IV 2 mcg/kg/hr TITR JODI 6.425 mls/hr Administration Protocol 1 MCG/KG/HR Amiodarone HCl 900 mg/ 500 mls @ 33.333 mls/hr 08/06/21 12:00 08/07/21 12:31 Dextrose IV 0.5 mg/min DIRECT JODI 16.667 mls/hr Administration Protocol 1 MG/MIN Propofol 1,000 mg in 100 mls @ 1.928 mls/hr 08/06/21 17:00 08/07/21 12:40 Diprivan 10 Mg/Ml IV 35 mcg/kg/min TITR JODI 13.493 mls/hr Administration Protocol 5 MCG/KG/MIN Nicardipine HCl 50 mg/ Sodium 250 mls @ 25 mls/hr 08/06/21 18:00 08/07/21 06:44 Chloride IV 0 mg/hr TITR JODI 0 mls/hr Titration Protocol 5 MG/HR Dextrose 1,000 mls @ 25 mls/hr 08/06/21 23:45 08/07/21 00:17 D10w IV 25 mls/hr DIRECT JODI Administration Sodium Chloride 100 mls @ 999 mls/hr 08/06/21 23:18 Nacl 0.9% IV GLENDY PRN Hypotension Lidocaine HCl/Dextrose 2,000 mg in 500 mls @ 15 mls/hr 08/07/21 05:00 Xylocaine/D5w 2gm/500ml Drip IV DIRECT JODI Protocol 1 MG/MIN Isosorbide Dinitrate 5 mg 08/05/21 22:00 08/07/21 14:13 Isosorbide Dinitrate 10 Mg Tab PO 5 mg Q8HR JODI Administration Losartan Potassium 25 mg 08/05/21 22:00 08/07/21 12:12 Losartan 25 Mg Tab PO 25 mg BID JODI Administration Metoclopramide HCl 5 mg 08/05/21 21:03 Metoclopramide 10 Mg/2 Ml Inj IV Q6H PRN Nausea And Vomiting Metoprolol Tartrate 25 mg 08/06/21 08:00 08/07/21 14:16 Metoprolol Tartrate 50 Mg Tab PO Not Given TID JODI Multi-Ingred Cream/Lotion/Oil/Oint 1 applic 08/05/21 17:25 Mineral Oil/Petrolatum, White Ophth Oint 3.5 Gm OU Q4HR PRN Dry Eye(s) Ondansetron HCl 4 mg 08/05/21 21:03 Ondansetron 4 Mg/2 Ml Inj IV Q8H PRN Nausea And Vomiting Oxycodone/Acetaminophen 1 tab 08/05/21 21:03 Oxycodone /Acetaminophen 5-325mg Tab PO Q6H PRN Pain, Moderate (4-6) Senna 8.8 mg 08/07/21 13:00 08/07/21 12:31 Sennosides Oral Liqd 8.8 Mg/5 Ml Oral Liqd FEEDTUBE 8.8 mg BID JODI Administration Simple Syrup 15 ml 08/07/21 09:47 Simple Syrup 15 Ml FEEDTUBE PRN PRN Hypoglycemia Simple Syrup 30 ml 08/07/21 09:47 Simple Syrup 15 Ml FEEDTUBE PRN PRN Hypoglycemia Sodium Bicarbonate 325 mg 08/07/21 09:47 Sodium Bicarbonate 325 Mg Tab FEEDTUBE PRN PRN For Clogged Feeding Tube Sodium Chloride 10 ml 08/05/21 22:00 08/07/21 10:44 Sodium Chloride 0.9% 10 Ml Flush Syringe IV 10 ml BID JODI Administration Sodium Chloride 10 ml 08/05/21 21:03 Sodium Chloride 0.9% 10 Ml Flush Syringe IV PRN PRN LINE FLUSH Nutrition/Malnutrition Assess - Dietary Evaluation Nutrition/Malnutrition Findings: Nutrition Notes Start: 08/07/21 09:12 Freq: Status: Active Protocol: Document 08/07/21 09:12 KALA (Rec: 08/07/21 09:53 KALA [id number]) Nutrition Notes Need for Assessment generated from: MD Order Initial or Follow up Assessment Current Diagnosis CKD (stage V CKD),Coronary Artery Disease,Diabetes, Hypertension,Hyperlipidemia Other Pertinent Diagnosis ESRD+HD, AICD discharge secondary to V. Tachicardia. Current Diet TF-Nepro w/CARBSTEADY @ 32 ml/ hr (since L 08/07). Labs/Tests 08/06: Na 133, Cl 93.2, BUN 21 , Crea 4.6, Ca 8.3, Tpro 6.2, Alb 3.2. Pertinent Medications 08/07: D10w 1000 ml @ 25 ml/hr PRN, Propofol 1000 mg in 100 ml @ 1.928 ml/hr (51 Kcal), others nutritionally unremarkable. Height 5 ft 2 in Weight 64.25 kg [place] Body Weight (kg) 50.00 BMI 25.9 Weight change and time frame None reported at admission. Weight Status Overweight Subjective/Other Information RD consult to evaluate nutritional intake and write/ manage TF. Pt on mechanical ventilation, sedated (abnormal gag reflex and swallow impaired, due to sedation). Percent of energy/protein needs met: Prescribed Nepro w/CARBSTEADY @ 32 ml/hr will provide for energy/protein needs (1,403 Kcal/63 g) 100% Kcal; 82% AA, during LOS. Burn Absent Trauma Absent GI Symptoms None Food Allergy No Skin Integrity/Comment Clear, warm, dry. Current % PO Other Minimum of two criteria No #1 Nutrition Diagnosis Inadequate oral intake Etiology Pt on mechanical ventilation As Evidenced by Signs and Symptoms Pt is sedated (abnormal gag reflex and swallow impaired, due to sedation). Is patient on ventilator? Yes Is Patient Ambulatory and/or Out of Bed No REE-([facility]-confined to bed) 1403.892 Calculation Used for Recommendations [facility] Additional Notes Protein: 1.2-1.5 g/Kg; 77-96 g /day. Fluids: 1 ml/Kcal, or as per MD. Nutrition Intervention Nutrition Support: Start Nepro w/CARBSTEADY @ 32 ml/hr. Flush: 140 ml water Q 4 hr. Kcal 1,403 Protein (gm) 63 Carbohydrates (gm) 126 Fat (gm) 75 Fluid (mL) 567 Fiber (gm) 10 % RDI: 100% Kcal; 82% AA. Goal #1 Provide at least 75% of energy /protein needs through Enteral Feeding during LOS. Follow-Up By: 08/09/21 Additional Comments Continue monitoring TF tolerance, and BM.
[2021-08-08] MEDS: hydrALAZINE 20 MG/1 ML INJ IV PRN ×2 (00:37→19:53)
--- NOTE | 2021-08-08 03:28 | XRay Report ---
CHEST 1 VIEW 08/08/2021 2:01 AM INDICATION / CLINICAL INFORMATION: follow up respiratory failure. COMPARISON: 08/07/2021 FINDINGS: SUPPORT DEVICES: Unchanged. HEART / MEDIASTINUM: Stable. LUNGS / PLEURA: Redemonstrated airspace opacities. No pneumothorax. ADDITIONAL FINDINGS: No significant additional findings. IMPRESSION: 1. No acute findings. Signer Name: Bal Zelaya DO Signed: 08/08/2021 3:24 AM Workstation Name: [id number]
[2021-08-08 04:55] LABS: ABG Base Excess 4.5 mmol/L (-2.0-3.0); ABG HCO3 27.3 mmol/L (20.0-26.0); ABG Methemoglobin 0.5 % (0.0-1.5); ABG Oxygen Saturation 98.8 % (95.0-99.0); ABG PCO2 32.3 mm Hg; ABG PH 7.545 pH Units (7.350-7.450); ABG PO2 136.1 mm Hg (80.0-90.0)
[2021-08-08 05:24] LABS: Hematocrit 21.6 % (30.3-42.9); Hemoglobin 6.8 gm/dl (10.1-14.3)
[2021-08-08] MEDS: ISOSORBIDE DINITRATE 10 MG TAB PO SCH ×4 (05:24→21:21)
[2021-08-08 05:42] LABS: Calcium 8.7 mg/dL (8.4-10.2)
[2021-08-08] MEDS: fentaNYL DRIP Premix 2,000 MCG/100 ML BAG IV SCH ×2 (06:31→22:01)
[2021-08-08 06:51] LABS: Hepatitis C Virus Antibody Non-Reactive (NonReactive)
[2021-08-08 06:55] LABS: Hepatitis B Surface Antigen Nonreactive (Negative)
[2021-08-08] MEDS: DEXTROSE 50% IN WATER (25GM) 50 ML SYRINGE IV PRN ×3 (10:02→18:55)
[2021-08-08] MEDS: SENNOSIDES ORAL LIQD 8.8 MG/5 ML ORAL LIQD FEEDTUBE SCH ×2 (10:03→21:21)
[2021-08-08] MEDS: METOPROLOL TARTRATE 50 MG TAB PO SCH ×4 (10:03→21:21)
[2021-08-08] MEDS: LOSARTAN 25 MG TAB PO SCH ×2 (10:03→21:21)
[2021-08-08] MEDS: FAMOTIDINE 20 MG/2 ML INJ IV SCH ×2 (10:04→21:20)
[2021-08-08] MEDS: ASPIRIN 81 MG TAB CHEW PO SCH (10:05)
--- NOTE | 2021-08-08 11:33 | Progress Note ---
Assessment and Plan Patient is a 60-year-old female with recurrent V. tach, end-stage renal disease, s/p ICD, and recurrent severe hypokalemia Severe Hypokalemia End-stage renal disease on hemodialysis NSTEMI ICD in place HTN Anemia Plan: Patient transfer to [facility] for possible VT ablation delayed due to [facility] request for Covid test which came back as negative. Currently waiting bed availability at [facility] for transfer Continue gladys jaimes Patient seen in conjunction with Dr. Lyons who agrees with this plan of care Greater than 30 minutes of critical care time spent coordinating care patient - Patient Problems (1) AICD discharge Current Visit: Yes Status: Acute (2) Anemia in end-stage renal disease Current Visit: Yes Status: Acute (3) Elevated troponin Current Visit: Yes Status: Acute (4) Hypokalemia Current Visit: Yes Status: Acute (5) Sustained ventricular tachycardia Current Visit: Yes Status: Acute (6) Diabetes Current Visit: No Status: Acute (7) Respiratory failure Current Visit: No Status: Acute Qualifiers: Chronicity: acute Respiratory failure complication: hypoxia Qualified Code(s): J96.01 - Acute respiratory failure with hypoxia (8) Hypertension Current Visit: No Status: Chronic Qualifiers: Hypertension type: primary hypertension Qualified Code(s): I10 - Essential (primary) hypertension Subjective Date of service: 08/08/21 Principal diagnosis: V. tach Interval history: Patient remains intubated and sedated. Patient paced at 70 no events on monitor Objective Vital Signs Temp Pulse Pulse Pulse Pulse Resp BP 08/08/21 10:03 70 139/66 08/08/21 07:31 70 130/61 08/08/21 06:00 70 12 167/76 08/08/21 05:30 70 13 169/74 08/08/21 05:00 70 12 157/72 08/08/21 04:30 70 12 141/67 08/08/21 04:20 08/08/21 04:08 70 141/67 08/08/21 04:00 70 12 145/64 08/08/21 03:58 70 70 70 12 08/08/21 03:30 70 12 148/64 08/08/21 03:00 99.9 F H 70 12 134/50 08/08/21 02:30 70 12 154/86 08/08/21 02:00 70 12 141/60 08/08/21 01:30 70 13 150/53 08/08/21 01:00 70 13 175/74 08/08/21 00:30 70 12 167/73 08/08/21 00:11 70 167/73 08/08/21 00:08 70 12 167/73 08/08/21 00:00 70 70 70 70 12 169/74 08/07/21 23:44 100.2 F H 08/07/21 23:43 70 08/07/21 23:30 70 14 153/71 08/07/21 23:00 70 13 153/71 08/07/21 22:30 70 11 L 152/71 08/07/21 22:00 70 11 L 159/73 08/07/21 21:30 70 12 164/78 08/07/21 21:00 70 12 165/76 08/07/21 20:30 70 12 157/75 08/07/21 20:00 97.4 F L 70 70 70 70 11 L 156/75 08/07/21 19:53 70 150/78 08/07/21 19:30 70 12 150/78 08/07/21 19:00 70 12 146/74 08/07/21 18:30 70 12 142/73 08/07/21 18:00 70 12 155/78 08/07/21 17:45 70 12 150/77 08/07/21 17:30 70 12 155/79 08/07/21 17:15 70 12 153/79 08/07/21 17:00 70 12 151/73 08/07/21 16:46 70 11 L 156/76 08/07/21 16:30 70 12 163/81 08/07/21 16:16 70 12 163/81 08/07/21 16:00 98.4 F 70 70 70 70 12 163/81 08/07/21 15:52 70 153/79 08/07/21 15:45 70 12 163/81 08/07/21 15:30 70 12 153/79 08/07/21 15:15 70 12 143/76 08/07/21 15:00 70 12 141/74 08/07/21 14:45 70 12 142/73 08/07/21 14:30 70 12 144/75 08/07/21 14:16 70 12 164/76 08/07/21 14:13 70 164/76 08/07/21 14:00 70 12 171/73 08/07/21 13:46 70 12 171/73 08/07/21 13:30 70 12 158/77 08/07/21 13:16 70 12 158/77 08/07/21 13:00 70 12 155/74 08/07/21 12:46 70 12 155/74 08/07/21 12:40 70 155/74 08/07/21 12:30 97.6 F 70 12 168/81 08/07/21 12:21 70 127/63 08/07/21 12:16 70 12 131/64 08/07/21 12:15 69 131/64 08/07/21 12:12 70 131/63 08/07/21 12:00 98.7 F 70 70 70 70 12 136/63 08/07/21 11:46 70 12 136/63 08/07/21 11:45 70 136/63 Pulse Ox Pulse Ox Pulse Ox 08/08/21 10:03 08/08/21 07:31 100 08/08/21 06:00 08/08/21 05:30 08/08/21 05:00 08/08/21 04:30 100 08/08/21 04:20 100 08/08/21 04:08 100 08/08/21 04:00 08/08/21 03:58 99 08/08/21 03:30 08/08/21 03:00 100 08/08/21 02:30 08/08/21 02:00 100 08/08/21 01:30 08/08/21 01:00 08/08/21 00:30 08/08/21 00:11 98 08/08/21 00:08 97 08/08/21 00:00 99 08/07/21 23:44 08/07/21 23:43 08/07/21 23:30 08/07/21 23:00 100 08/07/21 22:30 99 08/07/21 22:00 100 08/07/21 21:30 100 08/07/21 21:00 100 08/07/21 20:30 100 08/07/21 20:00 100 08/07/21 19:53 100 08/07/21 19:30 100 08/07/21 19:00 08/07/21 18:30 08/07/21 18:00 08/07/21 17:45 100 08/07/21 17:30 100 08/07/21 17:15 08/07/21 17:00 08/07/21 16:46 08/07/21 16:30 08/07/21 16:16 08/07/21 16:00 08/07/21 15:52 08/07/21 15:45 08/07/21 15:30 08/07/21 15:15 08/07/21 15:00 08/07/21 14:45 08/07/21 14:30 100 08/07/21 14:16 08/07/21 14:13 08/07/21 14:00 08/07/21 13:46 08/07/21 13:30 08/07/21 13:16 08/07/21 13:00 08/07/21 12:46 08/07/21 12:40 08/07/21 12:30 100 08/07/21 12:21 08/07/21 12:16 08/07/21 12:15 08/07/21 12:12 08/07/21 12:00 08/07/21 11:46 08/07/21 11:45 - Physical Examination General: Other (Intubated and sedated) HEENT: Positive: Mucus Membranes Dry (Bleeding noted from nose), Other Neck: Positive: trachea midline Cardiac: Positive: Reg Rate and Rhythm Lungs: Positive: Ventilated Respirations Neuro: Positive: Other (Unable to assess patient intubated sedated ) Abdomen: Positive: Soft Skin: Negative: Rash Extremities: Present: upper extr. pulses - Labs and Meds CBC 08/08/21 Range/Units 04:26 Hgb 6.8 L (10.1-14.3) gm/dl Hct 21.6 L (30.3-42.9) % Plt Count 91 L (140-440) K/mm3 Comprehensive Metabolic Panel 08/07/21 08/08/21 Range/Units 17:00 04:26 Sodium 132 L (137-145) mmol/L Potassium 3.7 4.4 (3.6-5.0) mmol/L Chloride 93.5 L (98-107) mmol/L Carbon Dioxide 27 (22-30) mmol/L BUN 16 (7-17) mg/dL Creatinine 3.7 H (0.6-1.2) mg/dL Glucose 78 (65-100) mg/dL Calcium 8.7 (8.4-10.2) mg/dL - Imaging and Cardiology EKG: report reviewed (V. tach: Repeat EKG normal sinus rhythm 96/min) - Telemetry EKG Rhythm: Paced Pacemaker: atrial pacing w/capture
--- NOTE | 2021-08-08 12:55 | Progress Note ---
Assessment and Plan 60 y/o female with known VT in the past, systolic heart failure with BIV AICD admitted with recurrent VT and electrolyte abnormality 08/08/21: Continue supportive measures. Follow up any new cardiac recs. 08/07/21: Await transfer to [place], continue supportive measures Follow up cards recs most likely needs ablation at [place] Continue amio drip per cards CCt 31 minutes. Subjective Date of service: 08/08/21 Principal diagnosis: V. tach Interval history: no acute events. Remains sedated on vent. No VT. Await transfer. Objective Vital Signs - 12hr 08/08/21 08/08/21 08/08/21 01:00 01:30 02:00 Temperature Pulse Rate 70 70 70 Pulse Rate [ From Monitor] Pulse Rate [ Left Radial] Pulse Rate [ Right Radial] Respiratory 13 13 12 Rate Blood Pressure 175/74 150/53 141/60 O2 Sat by Pulse 100 Oximetry 08/08/21 08/08/21 08/08/21 02:30 03:00 03:30 Temperature 99.9 F H Pulse Rate 70 70 70 Pulse Rate [ From Monitor] Pulse Rate [ Left Radial] Pulse Rate [ Right Radial] Respiratory 12 12 12 Rate Blood Pressure 154/86 134/50 148/64 O2 Sat by Pulse 100 Oximetry 08/08/21 08/08/21 08/08/21 03:58 04:00 04:08 Temperature Pulse Rate 70 70 Pulse Rate [ 70 From Monitor] Pulse Rate [ 70 Left Radial] Pulse Rate [ 70 Right Radial] Respiratory 12 12 Rate Blood Pressure 145/64 141/67 O2 Sat by Pulse 99 100 Oximetry 08/08/21 08/08/21 08/08/21 04:20 04:30 05:00 Temperature Pulse Rate 70 70 Pulse Rate [ From Monitor] Pulse Rate [ Left Radial] Pulse Rate [ Right Radial] Respiratory 12 12 Rate Blood Pressure 141/67 157/72 O2 Sat by Pulse 100 100 Oximetry 08/08/21 08/08/21 08/08/21 05:30 06:00 07:31 Temperature Pulse Rate 70 70 70 Pulse Rate [ From Monitor] Pulse Rate [ Left Radial] Pulse Rate [ Right Radial] Respiratory 13 12 Rate Blood Pressure 169/74 167/76 130/61 O2 Sat by Pulse 100 Oximetry 08/08/21 10:03 Temperature Pulse Rate 70 Pulse Rate [ From Monitor] Pulse Rate [ Left Radial] Pulse Rate [ Right Radial] Respiratory Rate Blood Pressure 139/66 O2 Sat by Pulse Oximetry Constitutional: no acute distress, other (intubated and sedated) Eyes: non-icteric ENT: other (orally intubated) Neck: supple Effort: normal Ascultation: Bilateral: clear Percussion: Bilateral: not dull Gastrointestinal: soft, non-tender Extremities: no edema Neurologic: unable to assess CBC and BMP: 08/08/21 04:26 08/08/21 04:26 ABG, PT/INR, D-dimer: ABG ABG pH 7.471 (7.320-7.450) H 08/08/21 09:45 POC ABG pCO2 40.5 mmHg (32.0-48.0) 08/08/21 09:45 ABG pCO2 32.3 mm Hg 08/08/21 04:19 POC ABG pO2 71.1 mmHg (83-108) L 08/08/21 09:45 ABG pO2 136.1 mm Hg (80.0-90.0) H 08/08/21 04:19 POC ABG HCO3 28.9 08/08/21 09:45 ABG O2 Saturation 98.8 % (95.0-99.0) 08/08/21 04:19 PT/INR, D-dimer PT 14.2 Sec. (12.2-14.9) 08/06/21 16:35 INR 0.99 (0.87-1.13) 08/06/21 16:35 Abnormal lab findings: Abnormal Labs 08/05/21 08/05/21 08/05/21 15:55 15:55 18:50 WBC 3.7 L RBC 2.98 L Hgb 7.5 L Hct 23.8 L MCH 25 L RDW 18.9 H Plt Count 134 L Lymph % (Auto) [place] % (Auto) Lymph # (Auto) Seg Neutrophils % Seg Neuts % (Manual) Lymphocytes % (Manual) Monocytes % (Manual) 18.0 H Eosinophils % (Manual) Basophils % (Manual) 2.0 H Seg Neutrophils # Seg Neutrophils # Man Lymphocytes # (Manual) 0.9 L APTT ABG pH 7.523 H POC ABG pO2 ABG pO2 47.1 L ABG HCO3 34.6 H ABG O2 Saturation 85.4 L ABG Base Excess 10.8 H ABG Hemoglobin 7.3 L ABG Sodium ABG Chloride ABG Glucose Oxyhemoglobin 83.6 L Sodium Potassium 2.7 L* Chloride 93.8 L Carbon Dioxide 33 H BUN Creatinine 2.8 H Glucose 124 H POC Glucose Calcium 8.2 L ALT < 5 L Troponin T 0.126 H* Total Protein Albumin 3.5 L Triglycerides 202 H HDL Cholesterol 32 L TSH Arterial Blood Glucose Crossmatch 08/05/21 08/05/21 08/06/21 18:56 Unknown 04:20 WBC RBC Hgb Hct MCH RDW Plt Count Lymph % (Auto) [place] % (Auto) Lymph # (Auto) Seg Neutrophils % Seg Neuts % (Manual) Lymphocytes % (Manual) Monocytes % (Manual) Eosinophils % (Manual) Basophils % (Manual) Seg Neutrophils # Seg Neutrophils # Man Lymphocytes # (Manual) APTT ABG pH 7.575 H 7.606 H* POC ABG pO2 ABG pO2 142.9 H 111.2 H ABG HCO3 33.2 H 33.6 H ABG O2 Saturation ABG Base Excess 10.4 H 11.2 H ABG Hemoglobin 6.6 L 6.8 L ABG Sodium ABG Chloride ABG Glucose Oxyhemoglobin Sodium Potassium Chloride Carbon Dioxide BUN Creatinine Glucose POC Glucose Calcium ALT Troponin T 0.183 H* D Total Protein Albumin Triglycerides HDL Cholesterol TSH Arterial Blood Glucose Crossmatch 08/06/21 08/06/21 08/06/21 04:29 04:29 04:29 WBC 2.5 L RBC 2.70 L Hgb 6.8 L Hct 21.3 L MCH 25 L RDW 18.1 H Plt Count 126 L Lymph % (Auto) 45.0 H [place] % (Auto) 13.6 H Lymph # (Auto) 1.1 L Seg Neutrophils % 37.3 L Seg Neuts % (Manual) Lymphocytes % (Manual) Monocytes % (Manual) Eosinophils % (Manual) Basophils % (Manual) Seg Neutrophils # 0.9 L Seg Neutrophils # Man Lymphocytes # (Manual) APTT 38.8 H ABG pH POC ABG pO2 ABG pO2 ABG HCO3 ABG O2 Saturation ABG Base Excess ABG Hemoglobin ABG Sodium ABG Chloride ABG Glucose Oxyhemoglobin Sodium 136 L Potassium 3.0 L Chloride 92.6 L Carbon Dioxide 32 H BUN Creatinine 3.8 H Glucose POC Glucose Calcium ALT Troponin T Total Protein 5.8 L Albumin 3.1 L Triglycerides HDL Cholesterol TSH Arterial Blood Glucose Crossmatch 08/06/21 08/06/21 08/06/21 05:30 07:26 07:26 WBC RBC Hgb 7.0 L Hct 22.5 L MCH RDW Plt Count 127 L Lymph % (Auto) [place] % (Auto) Lymph # (Auto) Seg Neutrophils % Seg Neuts % (Manual) Lymphocytes % (Manual) Monocytes % (Manual) Eosinophils % (Manual) Basophils % (Manual) Seg Neutrophils # Seg Neutrophils # Man Lymphocytes # (Manual) APTT 37.1 H ABG pH POC ABG pO2 ABG pO2 ABG HCO3 ABG O2 Saturation ABG Base Excess ABG Hemoglobin ABG Sodium ABG Chloride ABG Glucose Oxyhemoglobin Sodium Potassium Chloride Carbon Dioxide BUN Creatinine Glucose POC Glucose Calcium ALT Troponin T Total Protein Albumin Triglycerides HDL Cholesterol TSH Arterial Blood Glucose Crossmatch See Detail 08/06/21 08/06/21 08/06/21 08:06 14:50 16:03 WBC RBC Hgb Hct MCH RDW Plt Count Lymph % (Auto) [place] % (Auto) Lymph # (Auto) Seg Neutrophils % Seg Neuts % (Manual) Lymphocytes % (Manual) Monocytes % (Manual) Eosinophils % (Manual) Basophils % (Manual) Seg Neutrophils # Seg Neutrophils # Man Lymphocytes # (Manual) APTT ABG pH POC ABG pO2 ABG pO2 ABG HCO3 ABG O2 Saturation ABG Base Excess ABG Hemoglobin ABG Sodium ABG Chloride ABG Glucose Oxyhemoglobin Sodium Potassium 3.1 L Chloride 92.4 L Carbon Dioxide 33 H BUN Creatinine 3.9 H Glucose POC Glucose 59 L 121 H Calcium ALT Troponin T Total Protein Albumin Triglycerides HDL Cholesterol TSH Arterial Blood Glucose Crossmatch 08/06/21 08/06/21 08/06/21 16:35 16:35 17:31 WBC 4.2 L RBC 3.27 L Hgb 8.5 L Hct 26.8 L MCH 26 L RDW 18.7 H Plt Count 124 L Lymph % (Auto) [place] % (Auto) 15.5 H Lymph # (Auto) 0.8 L Seg Neutrophils % Seg Neuts % (Manual) Lymphocytes % (Manual) Monocytes % (Manual) Eosinophils % (Manual) Basophils % (Manual) Seg Neutrophils # Seg Neutrophils # Man Lymphocytes # (Manual) APTT ABG pH POC ABG pO2 ABG pO2 ABG HCO3 ABG O2 Saturation ABG Base Excess ABG Hemoglobin ABG Sodium ABG Chloride ABG Glucose Oxyhemoglobin Sodium 133 L Potassium Chloride 93.2 L Carbon Dioxide BUN 21 H Creatinine 4.6 H Glucose POC Glucose 62 L Calcium 8.3 L ALT Troponin T Total Protein 6.2 L Albumin 3.2 L Triglycerides HDL Cholesterol TSH Arterial Blood Glucose Crossmatch 08/06/21 08/06/21 08/07/21 18:14 18:22 04:00 WBC 1.0 L* RBC 2.67 L Hgb 7.0 L Hct 21.8 L MCH 26 L RDW 18.7 H Plt Count 82 L Lymph % (Auto) [place] % (Auto) Lymph # (Auto) Seg Neutrophils % Seg Neuts % (Manual) 16.0 L Lymphocytes % (Manual) 60.0 H Monocytes % (Manual) Eosinophils % (Manual) 11.0 H Basophils % (Manual) 4.0 H Seg Neutrophils # Seg Neutrophils # Man 0.2 L Lymphocytes # (Manual) 0.6 L APTT ABG pH 7.565 H POC ABG pO2 ABG pO2 113.3 H ABG HCO3 29.4 H ABG O2 Saturation ABG Base Excess 6.9 H ABG Hemoglobin 8.3 L ABG Sodium ABG Chloride ABG Glucose Oxyhemoglobin Sodium Potassium Chloride Carbon Dioxide BUN Creatinine Glucose POC Glucose 148 H Calcium ALT Troponin T Total Protein Albumin Triglycerides HDL Cholesterol TSH Arterial Blood Glucose Crossmatch 08/07/21 08/07/21 08/07/21 04:00 04:25 08:30 WBC RBC Hgb Hct MCH RDW Plt Count Lymph % (Auto) [place] % (Auto) Lymph # (Auto) Seg Neutrophils % Seg Neuts % (Manual) Lymphocytes % (Manual) Monocytes % (Manual) Eosinophils % (Manual) Basophils % (Manual) Seg Neutrophils # Seg Neutrophils # Man Lymphocytes # (Manual) APTT ABG pH 7.609 H* 7.479 H POC ABG pO2 ABG pO2 121.4 H 130.2 H ABG HCO3 28.5 H 30.3 H ABG O2 Saturation ABG Base Excess 7.2 H 6.2 H ABG Hemoglobin 10.7 L 8.1 L ABG Sodium ABG Chloride ABG Glucose Oxyhemoglobin Sodium 133 L Potassium 3.2 L D Chloride 93.9 L Carbon Dioxide BUN 23 H Creatinine 4.3 H Glucose POC Glucose Calcium 8.1 L ALT Troponin T Total Protein Albumin Triglycerides HDL Cholesterol TSH Arterial Blood Glucose Crossmatch 08/07/21 08/07/21 08/07/21 13:18 13:30 15:51 WBC RBC Hgb Hct MCH RDW Plt Count Lymph % (Auto) [place] % (Auto) Lymph # (Auto) Seg Neutrophils % Seg Neuts % (Manual) Lymphocytes % (Manual) Monocytes % (Manual) Eosinophils % (Manual) Basophils % (Manual) Seg Neutrophils # Seg Neutrophils # Man Lymphocytes # (Manual) APTT ABG pH POC ABG pO2 ABG pO2 ABG HCO3 ABG O2 Saturation ABG Base Excess ABG Hemoglobin ABG Sodium ABG Chloride ABG Glucose Oxyhemoglobin Sodium Potassium Chloride Carbon Dioxide BUN Creatinine Glucose POC Glucose 67 L 58 L Calcium ALT Troponin T Total Protein Albumin Triglycerides HDL Cholesterol TSH 7.070 H Arterial Blood Glucose Crossmatch 08/08/21 08/08/21 08/08/21 04:19 04:26 04:26 WBC RBC Hgb 6.8 L Hct 21.6 L MCH RDW Plt Count 91 L Lymph % (Auto) [place] % (Auto) Lymph # (Auto) Seg Neutrophils % Seg Neuts % (Manual) Lymphocytes % (Manual) Monocytes % (Manual) Eosinophils % (Manual) Basophils % (Manual) Seg Neutrophils # Seg Neutrophils # Man Lymphocytes # (Manual) APTT ABG pH 7.545 H POC ABG pO2 ABG pO2 136.1 H ABG HCO3 27.3 H ABG O2 Saturation ABG Base Excess 4.5 H ABG Hemoglobin 6.9 L ABG Sodium ABG Chloride ABG Glucose Oxyhemoglobin Sodium 132 L Potassium Chloride 93.5 L Carbon Dioxide BUN Creatinine 3.7 H Glucose POC Glucose Calcium ALT Troponin T Total Protein Albumin Triglycerides HDL Cholesterol TSH Arterial Blood Glucose Crossmatch 08/08/21 08/08/21 09:45 12:23 WBC RBC Hgb Hct MCH RDW Plt Count Lymph % (Auto) [place] % (Auto) Lymph # (Auto) Seg Neutrophils % Seg Neuts % (Manual) Lymphocytes % (Manual) Monocytes % (Manual) Eosinophils % (Manual) Basophils % (Manual) Seg Neutrophils # Seg Neutrophils # Man Lymphocytes # (Manual) APTT ABG pH 7.471 H POC ABG pO2 71.1 L ABG pO2 ABG HCO3 ABG O2 Saturation ABG Base Excess ABG Hemoglobin ABG Sodium 128.9 L ABG Chloride 95.0 L ABG Glucose 64 L Oxyhemoglobin Sodium Potassium Chloride Carbon Dioxide BUN Creatinine Glucose POC Glucose 58 L Calcium ALT Troponin T Total Protein Albumin Triglycerides HDL Cholesterol TSH Arterial Blood Glucose 64 L Crossmatch
[2021-08-08] MEDS ORDERED: SODIUM CHLORIDE 0.9% 500 ML 500 ML IV SCH (12:59)
--- NOTE | 2021-08-08 13:05 | Progress Note ---
Assessment and Plan Assessment and plan: This is 60-year-old female with ESRD on HD, recurrent AICD discharges, V. tach, cardiac arrest, anemia of chronic disease, CAD, systolic HF and HTN admitted for V. tach and severe hypokalemia Neuro: Sedated -Sedated with fentanyl and propofol -RASS goal -1 to -2 -Avoid delirium -Reorientation as needed -SAT/SBT when appropriate CV: Recurrent V. tach, NSTEMI, h/o s/p AICD implantation, systolic heart failure, V. tach, HTN -Cardiology consulted, appreciate recommendations -S/p lidocaine and Cardene drip -Restarted home p.o. antihypertensive regimen -adjust as needed -Amiodarone drip -Awaiting transfer to [facility] -Continue Lipitor Respiratory: Intubated for airway protection -CCM consulted, appreciate recommendations -Intubated in the ED on 08/05 with a 6.50 ETT at 21 at the lips -A.m. vent settings assist-control rate 12, tidal volume 375, PEEP 6, FiO2 30% -See RT notes for titration -A.m. ABG and CXR noted -VAP bundle -SPO2 monitoring GI: NAD -Nutrition consult for tube feeding -We held off tube feeding initiation today in setting of possible transfer to [facility] and surgery -We will address tube feeding tomorrow -PPI -BR: Senokot : ESRD on HD, hyponatremia, hypochloremia -Nephrology consulted, appreciate recommendations -HD per nephrology -Avoid nephrotoxic medications -Renally dose medications -Strict intake and output -Replete potassium ID: Leukopenia -Monitor WBC and fever curve -Follow-up blood culture x2 and sputum culture -NGTD Heme: Thrombocytopenia, acute on chronic anemia of chronic disease, leukopenia -S/p 1 unit PRBC -Noted to have bloody drainage from mouth and nose -Trend CBC -Transfuse for hemoglobin less than 7 -will give 1 unit prbc today for hgb 6.8 -Epogen per nephrology -Avoid chemical anticoagulation in setting of thrombocytopenia -SCDs to bilateral LE while in bed Endo: Hypoglycemia (resolved) -D10 drip at 30ml/hr -wean off as tolerated when TF started -Avoid hypoglycemia -Accu-Cheks every 4 Critical care statement The high probability of a clinically significant sudden or life-threatening deterioration of the cardiorespiratory system and endocrine system required my full and direct attention, intervention and postoperative management. The aggregate critical care time was 60 minutes. The time is in addition to time spent performing reported procedures but includes the following: [x] 1: Data review and interpretation [x] 2: Patient assessment and monitoring of vital signs [x] 3: Documentation [x] 4: Medication orders and management Disposition Plan: icu Total Time Spent with Patient (Minutes): 60 History Interval history: This is 60-year-old female with ESRD on HD, recurrent AICD discharges, systolic heart failure, V. tach, cardiac arrest, anemia, CAD and HTN who presents to the emergency department from her dialysis center on 08/05 for severe muscle spasms secondary to AICD discharges per patient. She also had questionable seizures in the dialysis center. Patient was started on amiodarone and lidocaine. Patient was intubated for airway protection in the emergency department and work-up also revealed severe hypokalemia. Patient was admitted to the hospital service with consult cardiology, nephrology and CCM. 08/06/2021: Patient is sedated, Transfer to [facility] arranged 08/07: COVID-19 PCR negative. Patient received hemodialysis today. Off Cardene drip. Patient has been OG tube for p.o. BP medications. Thrombocytopenia persists therefore anticoagulation is held. Patient is leukopenia also. We will continue to trend CBC. Persistent hypoglycemia and D10 drip increased to 30 ml/hr. negative Covid test relayed to [facility]. 08/08: 1 unit prbc today, will start TF today. Still awaiting [facility] bed. Hospitalist Physical - Physical exam Narrative exam: - EENT Eyes: Present: PERRL, EOM intact ENT: hearing intact, clear oral mucosa - Neck Neck: Present: normal ROM - Respiratory Respiratory effort: normal Respiratory: bilateral: diminished - Cardiovascular Rhythm: regular Heart Sounds: Present: S1 & S2. Absent: systolic murmur, diastolic murmur - Extremities Extremities: no ischemia, pulses intact, pulses symmetrical, No edema, normal temperature, normal color Peripheral Pulses: within normal limits - Abdominal General gastrointestinal: soft, non-tender, non-distended, normal bowel sounds - Integumentary Integumentary: Present: warm, dry - Psychiatric Psychiatric: other (sedated) - Neurologic Neurologic: other (sedated) - Allied Health Allied health notes reviewed: nursing, RT, social work - Constitutional Vitals: Temp Pulse Resp BP Pulse Ox 99.9 F H 70 12 139/66 100 08/08/21 03:00 08/08/21 10:03 08/08/21 06:00 08/08/21 10:03 08/08/21 07:31 General appearance: Present: no acute distress, well-nourished HEART Score - HEART Score Age: 45-65 Risk factors: > 3 risk factors or hx of atherosclerotic disease Troponin: Troponin T 0.183 ng/mL (0.00-0.029) H* D 08/05/21 18:56 Troponin: 1-3x normal limit - Critical Actions Critical Actions: 4-6 pts:12-16.6% risk of adverse cardiac event. Should be admitted Results - Labs CBC & Chem 7: 08/08/21 04:26 08/08/21 04:26 Labs: Laboratory Last Values WBC 1.0 K/mm3 (4.5-11.0) L* 08/07/21 04:00 RBC 2.67 M/mm3 (3.65-5.03) L 08/07/21 04:00 Hgb 6.8 gm/dl (10.1-14.3) L 08/08/21 04:26 Hct 21.6 % (30.3-42.9) L 08/08/21 04:26 MCV 82 fl (79-97) 08/07/21 04:00 MCH 26 pg (28-32) L 08/07/21 04:00 MCHC 32 % (30-34) 08/07/21 04:00 RDW 18.7 % (13.2-15.2) H 08/07/21 04:00 Plt Count 91 K/mm3 (140-440) L 08/08/21 04:26 Lymph % (Auto) As400 Administrator 08/07/21 04:00 [place] % (Auto) 15.5 % (0.0-7.3) H 08/06/21 16:35 Eos % (Auto) 2.2 % (0.0-4.3) 08/06/21 16:35 Baso % (Auto) As400 Administrator 08/07/21 04:00 Lymph # (Auto) 0.8 K/mm3 (1.2-5.4) L 08/06/21 16:35 [place] # (Auto) 0.7 K/mm3 (0.0-0.8) 08/06/21 16:35 Eos # (Auto) 0.1 K/mm3 (0.0-0.4) 08/06/21 16:35 Baso # (Auto) 0.1 K/mm3 (0.0-0.1) 08/06/21 16:35 Add Manual Diff Complete 08/07/21 04:00 Total Counted 100 08/07/21 04:00 Seg Neutrophils % As400 Administrator 08/07/21 04:00 Seg Neuts % (Manual) 16.0 % (40.0-70.0) L 08/07/21 04:00 Lymphocytes % (Manual) 60.0 % (13.4-35.0) H 08/07/21 04:00 Reactive Lymphs % (Man) 5.0 % 08/07/21 04:00 Monocytes % (Manual) 18.0 % (0.0-7.3) H 08/05/21 15:55 Eosinophils % (Manual) 11.0 % (0.0-4.3) H 08/07/21 04:00 Basophils % (Manual) 4.0 % (0.0-1.8) H 08/07/21 04:00 Metamyelocytes % 4.0 % 08/07/21 04:00 Nucleated RBC % Not Reportable 08/07/21 04:00 Seg Neutrophils # 2.6 K/mm3 (1.8-7.7) 08/06/21 16:35 Seg Neutrophils # Man 0.2 K/mm3 (1.8-7.7) L 08/07/21 04:00 Band Neutrophils # 0.0 K/mm3 08/07/21 04:00 Lymphocytes # (Manual) 0.6 K/mm3 (1.2-5.4) L 08/07/21 04:00 Abs React Lymphs (Man) 0.1 K/mm3 08/07/21 04:00 Monocytes # (Manual) 0.0 K/mm3 (0.0-0.8) 08/07/21 04:00 Eosinophils # (Manual) 0.1 K/mm3 (0.0-0.4) 08/07/21 04:00 Basophils # (Manual) 0.0 K/mm3 (0.0-0.1) 08/07/21 04:00 Metamyelocytes # 0.0 K/mm3 08/07/21 04:00 Myelocytes # 0.0 K/mm3 08/07/21 04:00 Promyelocytes # 0.0 K/mm3 08/07/21 04:00 Blast Cells # 0.0 K/mm3 08/07/21 04:00 WBC Morphology Not Reportable 08/07/21 04:00 WBC Morphology TNR 08/07/21 04:00 Hypersegmented Neuts Not Reportable 08/07/21 04:00 Hyposegmented Neuts Not Reportable 08/07/21 04:00 Hypogranular Neuts Not Reportable 08/07/21 04:00 Smudge Cells Not Reportable 08/07/21 04:00 Toxic Granulation Not Reportable 08/07/21 04:00 Toxic Vacuolation Not Reportable 08/07/21 04:00 Dohle Bodies Not Reportable 08/07/21 04:00 Pelger-Huet Anomaly Not Reportable 08/07/21 04:00 Claudio Rods Not Reportable 08/07/21 04:00 Platelet Estimate Consistent w auto 08/07/21 04:00 Clumped Platelets Not Reportable 08/07/21 04:00 Plt Clumps, EDTA Not Reportable 08/07/21 04:00 Large Platelets Not Reportable 08/07/21 04:00 Giant Platelets Not Reportable 08/07/21 04:00 Platelet Satelliting Not Reportable 08/07/21 04:00 Plt Morphology Comment Not Reportable 08/07/21 04:00 RBC Morphology Not Reportable 08/07/21 04:00 Dimorphic RBCs Not Reportable 08/07/21 04:00 Polychromasia Not Reportable 08/07/21 04:00 Hypochromasia 1+ 08/07/21 04:00 Poikilocytosis Not Reportable 08/07/21 04:00 Anisocytosis Not Reportable 08/07/21 04:00 Microcytosis Not Reportable 08/07/21 04:00 Macrocytosis Not Reportable 08/07/21 04:00 Spherocytes Not Reportable 08/07/21 04:00 Pappenheimer Bodies Not Reportable 08/07/21 04:00 Sickle Cells Not Reportable 08/07/21 04:00 Target Cells Few 08/07/21 04:00 Tear Drop Cells Few 08/07/21 04:00 Ovalocytes Not Reportable 08/07/21 04:00 Helmet Cells Not Reportable 08/07/21 04:00 Diaz-[place] Bodies Not Reportable 08/07/21 04:00 Debord Rings Not Reportable 08/07/21 04:00 [place] Cells Not Reportable 08/07/21 04:00 Bite Cells Not Reportable 08/07/21 04:00 Crenated Cell Not Reportable 08/07/21 04:00 Elliptocytes Not Reportable 08/07/21 04:00 Acanthocytes (Spur) Not Reportable 08/07/21 04:00 Rouleaux Not Reportable 08/07/21 04:00 Hemoglobin C Crystals Not Reportable 08/07/21 04:00 Schistocytes Not Reportable 08/07/21 04:00 Malaria parasites Not Reportable 08/07/21 04:00 Aleks Bodies Not Reportable 08/07/21 04:00 Hem Pathologist Commnt No 08/07/21 04:00 PT 14.2 Sec. (12.2-14.9) 08/06/21 16:35 INR 0.99 (0.87-1.13) 08/06/21 16:35 APTT 37.1 Sec. (24.2-36.6) H 08/06/21 07:26 ABG pH 7.471 (7.320-7.450) H 08/08/21 09:45 POC ABG pCO2 40.5 mmHg (32.0-48.0) 08/08/21 09:45 ABG pCO2 32.3 mm Hg 08/08/21 04:19 POC ABG pO2 71.1 mmHg (83-108) L 08/08/21 09:45 ABG pO2 136.1 mm Hg (80.0-90.0) H 08/08/21 04:19 POC ABG HCO3 28.9 08/08/21 09:45 ABG HCO3 27.3 mmol/L (20.0-26.0) H 08/08/21 04:19 ABG O2 Saturation 98.8 % (95.0-99.0) 08/08/21 04:19 ABG O2 Content 9.7 (0.0-44) 08/08/21 04:19 ABG Base Excess 4.5 mmol/L (-2.0-3.0) H 08/08/21 04:19 ABG Hemoglobin 6.9 gm/dl (12.0-16.0) L 08/08/21 04:19 ABG Carboxyhemoglobin 1.5 % (0.0-5.0) 08/08/21 04:19 ABG Methemoglobin 0.5 % (0.0-1.5) 08/08/21 04:19 ABG Sodium 128.9 mmol/L (136.0-145.0) L 08/08/21 09:45 ABG Potassium 4.5 mmol/L (3.40-4.50) 08/08/21 09:45 ABG Chloride 95.0 mmol/L (98-107) L 08/08/21 09:45 ABG Glucose 64 mg/dL (65-95) L 08/08/21 09:45 Oxyhemoglobin 96.9 % (95.0-99.0) 08/08/21 04:19 FiO2 30 % 08/08/21 04:19 FiO2 % 21.0 08/08/21 09:45 Sodium 132 mmol/L (137-145) L 08/08/21 04:26 Potassium 4.4 mmol/L (3.6-5.0) 08/08/21 04:26 Chloride 93.5 mmol/L (98-107) L 08/08/21 04:26 Carbon Dioxide 27 mmol/L (22-30) 08/08/21 04:26 Anion Gap 16 mmol/L 08/08/21 04:26 BUN 16 mg/dL (7-17) 08/08/21 04:26 Creatinine 3.7 mg/dL (0.6-1.2) H 08/08/21 04:26 Estimated GFR 15 ml/min 08/08/21 04:26 BUN/Creatinine Ratio 4 % 08/08/21 04:26 Glucose 78 mg/dL (65-100) 08/08/21 04:26 POC Glucose 58 mg/dL (70-105) L 08/08/21 12:23 Calcium 8.7 mg/dL (8.4-10.2) 08/08/21 04:26 Phosphorus 3.20 mg/dL (2.5-4.5) D 08/07/21 04:00 Magnesium 1.80 mg/dL (1.7-2.3) 08/07/21 04:00 Total Bilirubin 0.70 mg/dL (0.1-1.2) 08/06/21 16:35 AST 18 units/L (5-40) 08/06/21 16:35 ALT 7 units/L (7-56) 08/06/21 16:35 Alkaline Phosphatase 102 units/L (35-129) 08/06/21 16:35 Troponin T 0.183 ng/mL (0.00-0.029) H* D 08/05/21 18:56 Total Protein 6.2 g/dL (6.3-8.2) L 08/06/21 16:35 Albumin 3.2 g/dL (3.9-5) L 08/06/21 16:35 Albumin/Globulin Ratio 1.1 % 08/06/21 16:35 Triglycerides 202 mg/dL (2-149) H 08/05/21 15:55 Cholesterol 170 mg/dL (50-199) 08/05/21 15:55 LDL Cholesterol Direct 106 mg/dL (50-130) 08/05/21 15:55 HDL Cholesterol 32 mg/dL (40-59) L 08/05/21 15:55 Cholesterol/HDL Ratio 5.31 % 08/05/21 15:55 TSH 7.070 mlU/mL (0.270-4.200) H 08/07/21 13:30 Arterial Blood Glucose 64 mg/dL (65-95) L 08/08/21 09:45 Arterial Blood Ionized Calcium 4.6 mg/dL (4.6-5.3) 08/08/21 09:45 Coronavirus (PCR) Negative (Negative) 08/07/21 Unknown Hepatitis A IgM Ab Non-reactive (NonReactive) 08/08/21 04:26 Hep Bs Antigen Nonreactive (Negative) 08/08/21 04:26 Hep B Core IgM Ab Non-reactive (NonReactive) 08/08/21 04:26 Hepatitis C Antibody Non-reactive (NonReactive) 08/08/21 04:26 Blood Type O POSITIVE 08/06/21 05:30 Antibody Screen Negative 08/06/21 05:30 Crossmatch See Detail 08/06/21 05:30 Microbiology: Microbiology 08/06/21 18:48 Peripheral/Venous Blood Culture - Preliminary NO GROWTH AFTER 24 HOURS 08/06/21 18:48 Peripheral/Venous Blood Culture - Preliminary NO GROWTH AFTER 24 HOURS Active Medications - Current Medications Current Medications: Generic Name Dose Route Start Last Admin Trade Name Freq PRN Reason Stop Dose Admin Acetaminophen 650 mg 08/05/21 21:03 08/08/21 00:53 Acetaminophen 325 Mg Tab PO 650 mg Q4H PRN Administration Pain MILD(1-3)/Fever >100.5/COWART Acetaminophen 650 mg 08/06/21 16:30 08/06/21 16:30 Acetaminophen 650 Mg Rect Supp [place] 650 mg Q6H PRN Administration Pain, Mild (1-3) Albuterol 2.5 mg 08/05/21 20:59 Albuterol 2.5 Mg/3 Ml Nebu IH Q4HRT PRN Shortness Of Breath Lipase/Protease/Amylase 1 each 08/07/21 09:47 Lipase 10,500/Protease 25,000/Amylase 43,750 (Units) Dr Cap FEEDTUBE PRN PRN For Clogged Feeding Tube Aspirin 81 mg 08/07/21 10:00 08/08/21 10:05 Aspirin 81 Mg Tab Chew PO Not Given QDAY JODI Atorvastatin Calcium 80 mg 08/05/21 22:00 08/07/21 21:37 Atorvastatin 40 Mg Tab PO 40 mg QHS JODI Administration Dextrose 25 ml 08/06/21 15:08 08/08/21 10:02 Dextrose 50% In Water (25gm) 50 Ml Syringe IV 10 ml Q30MIN PRN Administration Hypoglycemia Protocol Famotidine 10 mg 08/06/21 10:00 08/08/21 10:04 Famotidine 20 Mg/2 Ml Inj IV 10 mg BID JODI Administration Fentanyl 50 mcg 08/05/21 17:25 Fentanyl 100 Mcg/2 Ml Inj IV Q10MIN PRN ANALGESIA Hydralazine HCl 10 mg 08/06/21 04:21 08/08/21 00:37 Hydralazine 20 Mg/1 Ml Inj IV 10 mg Q6HR PRN Administration Hypertension Hydrophilic Ointment 1 applic 08/05/21 17:25 Lip Therapy Vaseline TP Q2HR PRN Dry Lips Fentanyl Citrate 2,000 mcg in 100 mls @ 3.213 mls/hr 08/05/21 18:00 08/08/21 06:31 Fentanyl Drip Premix IV 2 mcg/kg/hr TITR JODI 6.425 mls/hr Administration Protocol 1 MCG/KG/HR Amiodarone HCl 900 mg/ 500 mls @ 33.333 mls/hr 08/06/21 12:00 08/07/21 12:31 Dextrose IV 0.5 mg/min DIRECT JODI 16.667 mls/hr Administration Protocol 1 MG/MIN Propofol 1,000 mg in 100 mls @ 1.928 mls/hr 08/06/21 17:00 08/08/21 05:25 Diprivan 10 Mg/Ml IV 35 mcg/kg/min TITR JODI 13.493 mls/hr Administration Protocol 5 MCG/KG/MIN Nicardipine HCl 50 mg/ Sodium 250 mls @ 25 mls/hr 08/06/21 18:00 08/07/21 06:44 Chloride IV 0 mg/hr TITR JODI 0 mls/hr Titration Protocol 5 MG/HR Dextrose 1,000 mls @ 30 mls/hr 08/06/21 23:45 08/07/21 00:17 D10w IV 25 mls/hr DIRECT JODI Administration Sodium Chloride 100 mls @ 999 mls/hr 08/06/21 23:18 Nacl 0.9% IV GLENDY PRN Hypotension Sodium Chloride 500 mls @ 0 mls/hr 08/08/21 12:59 Nacl 0.9% 500 Ml IV 08/08/21 13:00 ONCE ONE As Directed Isosorbide Dinitrate 5 mg 08/05/21 22:00 08/08/21 05:24 Isosorbide Dinitrate 10 Mg Tab PO 5 mg Q8HR JODI Administration Losartan Potassium 25 mg 08/05/21 22:00 08/08/21 10:03 Losartan 25 Mg Tab PO 25 mg BID JODI Administration Metoclopramide HCl 5 mg 08/05/21 21:03 Metoclopramide 10 Mg/2 Ml Inj IV Q6H PRN Nausea And Vomiting Metoprolol Tartrate 25 mg 08/06/21 08:00 08/08/21 10:03 Metoprolol Tartrate 50 Mg Tab PO 25 mg TID JODI Administration Multi-Ingred Cream/Lotion/Oil/Oint 1 applic 08/05/21 17:25 Mineral Oil/Petrolatum, White Ophth Oint 3.5 Gm OU Q4HR PRN Dry Eye(s) Ondansetron HCl 4 mg 08/05/21 21:03 Ondansetron 4 Mg/2 Ml Inj IV Q8H PRN Nausea And Vomiting Oxycodone/Acetaminophen 1 tab 08/05/21 21:03 Oxycodone /Acetaminophen 5-325mg Tab PO Q6H PRN Pain, Moderate (4-6) Senna 8.8 mg 08/07/21 13:00 08/08/21 10:03 Sennosides Oral Liqd 8.8 Mg/5 Ml Oral Liqd FEEDTUBE 8.8 mg BID JODI Administration Simple Syrup 15 ml 08/07/21 09:47 Simple Syrup 15 Ml FEEDTUBE PRN PRN Hypoglycemia Simple Syrup 30 ml 08/07/21 09:47 Simple Syrup 15 Ml FEEDTUBE PRN PRN Hypoglycemia Sodium Bicarbonate 325 mg 08/07/21 09:47 Sodium Bicarbonate 325 Mg Tab FEEDTUBE PRN PRN For Clogged Feeding Tube Sodium Chloride 10 ml 08/05/21 22:00 08/08/21 10:04 Sodium Chloride 0.9% 10 Ml Flush Syringe IV 10 ml BID JODI Administration Sodium Chloride 10 ml 08/05/21 21:03 Sodium Chloride 0.9% 10 Ml Flush Syringe IV PRN PRN LINE FLUSH Nutrition/Malnutrition Assess - Dietary Evaluation Nutrition/Malnutrition Findings: Nutrition Notes Start: 08/07/21 09:12 Freq: Status: Active Protocol: Document 08/07/21 09:12 KALA (Rec: 08/07/21 09:53 KALA [id number]) Nutrition Notes Need for Assessment generated from: MD Order Initial or Follow up Assessment Current Diagnosis CKD (stage V CKD),Coronary Artery Disease,Diabetes, Hypertension,Hyperlipidemia Other Pertinent Diagnosis ESRD+HD, AICD discharge secondary to V. Tachicardia. Current Diet TF-Nepro w/CARBSTEADY @ 32 ml/ hr (since L 08/07). Labs/Tests 08/06: Na 133, Cl 93.2, BUN 21 , Crea 4.6, Ca 8.3, Tpro 6.2, Alb 3.2. Pertinent Medications 08/07: D10w 1000 ml @ 25 ml/hr PRN, Propofol 1000 mg in 100 ml @ 1.928 ml/hr (51 Kcal), others nutritionally unremarkable. Height 5 ft 2 in Weight 64.25 kg [place] Body Weight (kg) 50.00 BMI 25.9 Weight change and time frame None reported at admission. Weight Status Overweight Subjective/Other Information RD consult to evaluate nutritional intake and write/ manage TF. Pt on mechanical ventilation, sedated (abnormal gag reflex and swallow impaired, due to sedation). Percent of energy/protein needs met: Prescribed Nepro w/CARBSTEADY @ 32 ml/hr will provide for energy/protein needs (1,403 Kcal/63 g) 100% Kcal; 82% AA, during LOS. Burn Absent Trauma Absent GI Symptoms None Food Allergy No Skin Integrity/Comment Clear, warm, dry. Current % PO Other Minimum of two criteria No #1 Nutrition Diagnosis Inadequate oral intake Etiology Pt on mechanical ventilation As Evidenced by Signs and Symptoms Pt is sedated (abnormal gag reflex and swallow impaired, due to sedation). Is patient on ventilator? Yes Is Patient Ambulatory and/or Out of Bed No REE-([facility]-confined to bed) 1403.892 Calculation Used for Recommendations [facility] Additional Notes Protein: 1.2-1.5 g/Kg; 77-96 g /day. Fluids: 1 ml/Kcal, or as per MD. Nutrition Intervention Nutrition Support: Start Nepro w/CARBSTEADY @ 32 ml/hr. Flush: 140 ml water Q 4 hr. Kcal 1,403 Protein (gm) 63 Carbohydrates (gm) 126 Fat (gm) 75 Fluid (mL) 567 Fiber (gm) 10 % RDI: 100% Kcal; 82% AA. Goal #1 Provide at least 75% of energy /protein needs through Enteral Feeding during LOS. Follow-Up By: 08/09/21 Additional Comments Continue monitoring TF tolerance, and BM.
--- NOTE | 2021-08-08 13:47 | Progress Note ---
Assessment and Plan - Patient Problems (1) Hypokalemia Current Visit: Yes Status: Acute Plan to address problem: levels stable this morning. We will continue to monitor and replete per protocol. (2) Sustained ventricular tachycardia Current Visit: Yes Status: Acute Plan to address problem: intubated, sedated, and has received lidocaine Per cardiology recommendations. Pending transfer to [place] at this time. (3) Anemia Current Visit: Yes Status: Chronic Qualifiers: Anemia type: due to chronic kidney disease Plan to address problem: JANETH therapy with hemodialysis (4) End stage renal disease on dialysis Current Visit: Yes Status: Chronic Plan to address problem: continue on current Thursday, Thursday, Thursday inpatient hemodialysis schedule. (5) Diabetes Current Visit: No Status: Acute Plan to address problem: diabetes management per primary attending. Subjective Date of service: 08/08/21 Principal diagnosis: V. tach Interval history: no acute changes from renal standpoint. Labs reviewed. Serum potassium stable this morning. Pending transfer to [place] at this time. Objective - Exam Narrative Exam: patient not examined directly in order to preserve personal protective equipment and decrease risk of transmission of COVID-19. Physical examination from primary team reviewed in detail. - Vital Signs Vital signs: Vital Signs - 12hr 08/08/21 08/08/21 08/08/21 02:00 02:30 03:00 Temperature 99.9 F H Pulse Rate 70 70 70 Pulse Rate [ From Monitor] Pulse Rate [ Left Radial] Pulse Rate [ Right Radial] Respiratory 12 12 12 Rate Blood Pressure 141/60 154/86 134/50 O2 Sat by Pulse 100 100 Oximetry 08/08/21 08/08/21 08/08/21 03:30 03:58 04:00 Temperature Pulse Rate 70 70 Pulse Rate [ 70 From Monitor] Pulse Rate [ 70 Left Radial] Pulse Rate [ 70 Right Radial] Respiratory 12 12 12 Rate Blood Pressure 148/64 145/64 O2 Sat by Pulse 99 Oximetry 08/08/21 08/08/21 08/08/21 04:08 04:20 04:30 Temperature Pulse Rate 70 70 Pulse Rate [ From Monitor] Pulse Rate [ Left Radial] Pulse Rate [ Right Radial] Respiratory 12 Rate Blood Pressure 141/67 141/67 O2 Sat by Pulse 100 100 100 Oximetry 08/08/21 08/08/21 08/08/21 05:00 05:30 06:00 Temperature Pulse Rate 70 70 70 Pulse Rate [ From Monitor] Pulse Rate [ Left Radial] Pulse Rate [ Right Radial] Respiratory 12 13 12 Rate Blood Pressure 157/72 169/74 167/76 O2 Sat by Pulse Oximetry 08/08/21 08/08/21 07:31 10:03 Temperature Pulse Rate 70 70 Pulse Rate [ From Monitor] Pulse Rate [ Left Radial] Pulse Rate [ Right Radial] Respiratory Rate Blood Pressure 130/61 139/66 O2 Sat by Pulse 100 Oximetry - Lab 08/08/21 04:26 08/08/21 04:26 Most recent lab results ABG pH 7.471 (7.320-7.450) H 08/08/21 09:45 ABG pCO2 32.3 mm Hg 08/08/21 04:19 ABG pO2 136.1 mm Hg (80.0-90.0) H 08/08/21 04:19 ABG HCO3 27.3 mmol/L (20.0-26.0) H 08/08/21 04:19 ABG O2 Saturation 98.8 % (95.0-99.0) 08/08/21 04:19 Calcium 8.7 mg/dL (8.4-10.2) 08/08/21 04:26 Phosphorus 3.20 mg/dL (2.5-4.5) D 08/07/21 04:00 Magnesium 1.80 mg/dL (1.7-2.3) 08/07/21 04:00 Medications & Allergies - Medications Allergies/Adverse Reactions: Allergies No Known Allergies Allergy (Unverified 07/10/21 20:57) Home Medications: Home Medications Medication Instructions Recorded Confirmed Last Taken Type Icosapent Ethyl [Vascepa] 2 gm PO BID 07/12/21 07/12/21 Unknown History Losartan [Cozaar] 25 mg PO BID 07/12/21 07/12/21 Unknown History ALBUTEROL NEB's [Proventil 0.083% 2.5 mg IH Q4HRT PRN nebu 07/15/21 Unknown Rx NEBS] Acetaminophen [Acetaminophen 650 mg [place] Q4H PRN supp.rect 07/15/21 Unknown Rx SUPPOS] Acetaminophen [Acetaminophen TAB] 650 mg PO Q4H PRN tablet 07/15/21 Unknown Rx Amiodarone [Cordarone 200 MG TAB] 200 mg PO BID tablet 07/15/21 Unknown Rx AtorvaSTATin [Lipitor] 80 mg PO QHS tablet 07/15/21 Unknown Rx Clopidogrel [Plavix] 75 mg PO QDAY tablet 07/15/21 Unknown Rx Dextrose 50% in Water [D50W (25GM) 50 ml IV Q30MIN PRN syringe 07/15/21 Unknown Rx Syringe] Free Water 60 ml PO Q4HR oral.liqd 07/15/21 Unknown Rx Isosorbide Dinitrate [Isordil] 5 mg PO Q8HR tablet 07/15/21 Unknown Rx Lipase/Protease/Amylase [Pancreaze 1 each FEEDTUBE PRN PRN capsule 07/15/21 Unknown Rx 10,500 Unit] Lispro Insulin [HumaLOG] 0 unit SUB-Q Q6HR units 07/15/21 Unknown Rx Metoprolol [Lopressor TAB] 25 mg PO TID tablet 07/15/21 Unknown Rx Simple Syrup 30 ml FEEDTUBE PRN PRN oral.liqd 07/15/21 Unknown Rx hydrALAZINE [Apresoline INJ] 10 mg IV Q6H PRN vial 07/15/21 Unknown Rx Active Medications: Generic Name Dose Route Start Last Admin Trade Name Freq PRN Reason Stop Dose Admin Acetaminophen 650 mg 08/05/21 21:03 08/08/21 00:53 Acetaminophen 325 Mg Tab PO 650 mg Q4H PRN Administration Pain MILD(1-3)/Fever >100.5/COWART Acetaminophen 650 mg 08/06/21 16:30 08/06/21 16:30 Acetaminophen 650 Mg Rect Supp [place] 650 mg Q6H PRN Administration Pain, Mild (1-3) Albuterol 2.5 mg 08/05/21 20:59 Albuterol 2.5 Mg/3 Ml Nebu IH Q4HRT PRN Shortness Of Breath Lipase/Protease/Amylase 1 each 08/07/21 09:47 Lipase 10,500/Protease 25,000/Amylase 43,750 (Units) Dr Thomas FEEDTUBE PRN PRN For Clogged Feeding Tube Aspirin 81 mg 08/07/21 10:00 08/08/21 10:05 Aspirin 81 Mg Tab Chew PO Not Given QDAY JODI Atorvastatin Calcium 80 mg 08/05/21 22:00 08/07/21 21:37 Atorvastatin 40 Mg Tab PO 40 mg QHS JODI Administration Dextrose 25 ml 12/28/21 15:08 08/08/21 10:02 Dextrose 50% In Water (25gm) 50 Ml Syringe IV 10 ml Q30MIN PRN Administration Hypoglycemia Protocol Famotidine 10 mg 08/06/21 10:00 08/08/21 10:04 Famotidine 20 Mg/2 Ml Inj IV 10 mg BID JODI Administration Fentanyl 50 mcg 08/05/21 17:25 Fentanyl 100 Mcg/2 Ml Inj IV Q10MIN PRN ANALGESIA Hydralazine HCl 10 mg 08/06/21 04:21 08/08/21 00:37 Hydralazine 20 Mg/1 Ml Inj IV 10 mg Q6HR PRN Administration Hypertension Hydrophilic Ointment 1 applic 08/05/21 17:25 Lip Therapy Vaseline TP Q2HR PRN Dry Lips Fentanyl Citrate 2,000 mcg in 100 mls @ 3.213 mls/hr 08/05/21 18:00 08/08/21 06:31 Fentanyl Drip Premix IV 2 mcg/kg/hr TITR JODI 6.425 mls/hr Administration Protocol 1 MCG/KG/HR Amiodarone HCl 900 mg/ 500 mls @ 33.333 mls/hr 08/06/21 12:00 08/07/21 12:31 Dextrose IV 0.5 mg/min DIRECT JODI 16.667 mls/hr Administration Protocol 1 MG/MIN Propofol 1,000 mg in 100 mls @ 1.928 mls/hr 08/06/21 17:00 08/08/21 05:25 Diprivan 10 Mg/Ml IV 35 mcg/kg/min TITR JODI 13.493 mls/hr Administration Protocol 5 MCG/KG/MIN Nicardipine HCl 50 mg/ Sodium 250 mls @ 25 mls/hr 08/06/21 18:00 08/07/21 06:44 Chloride IV 0 mg/hr TITR JODI 0 mls/hr Titration Protocol 5 MG/HR Dextrose 1,000 mls @ 30 mls/hr 08/06/21 23:45 08/07/21 00:17 D10w IV 25 mls/hr DIRECT JODI Administration Sodium Chloride 100 mls @ 999 mls/hr 08/06/21 23:18 Nacl 0.9% IV GLENDY PRN Hypotension Sodium Chloride 500 mls @ 0 mls/hr 08/08/21 12:59 Nacl 0.9% 500 Ml IV 08/08/21 23:59 ONCE JODI As Directed Isosorbide Dinitrate 5 mg 08/05/21 22:00 08/08/21 05:24 Isosorbide Dinitrate 10 Mg Tab PO 5 mg Q8HR JODI Administration Losartan Potassium 25 mg 08/05/21 22:00 08/08/21 10:03 Losartan 25 Mg Tab PO 25 mg BID JODI Administration Metoclopramide HCl 5 mg 08/05/21 21:03 Metoclopramide 10 Mg/2 Ml Inj IV Q6H PRN Nausea And Vomiting Metoprolol Tartrate 25 mg 08/06/21 08:00 08/08/21 10:03 Metoprolol Tartrate 50 Mg Tab PO 25 mg TID JODI Administration Multi-Ingred Cream/Lotion/Oil/Oint 1 applic 08/05/21 17:25 Mineral Oil/Petrolatum, White Ophth Oint 3.5 Gm OU Q4HR PRN Dry Eye(s) Ondansetron HCl 4 mg 08/05/21 21:03 Ondansetron 4 Mg/2 Ml Inj IV Q8H PRN Nausea And Vomiting Oxycodone/Acetaminophen 1 tab 08/05/21 21:03 Oxycodone /Acetaminophen 5-325mg Tab PO Q6H PRN Pain, Moderate (4-6) Senna 8.8 mg 08/07/21 13:00 08/08/21 10:03 Sennosides Oral Liqd 8.8 Mg/5 Ml Oral Liqd FEEDTUBE 8.8 mg BID JODI Administration Simple Syrup 15 ml 08/07/21 09:47 Simple Syrup 15 Ml FEEDTUBE PRN PRN Hypoglycemia Simple Syrup 30 ml 08/07/21 09:47 Simple Syrup 15 Ml FEEDTUBE PRN PRN Hypoglycemia Sodium Bicarbonate 325 mg 08/07/21 09:47 Sodium Bicarbonate 325 Mg Tab FEEDTUBE PRN PRN For Clogged Feeding Tube Sodium Chloride 10 ml 08/05/21 22:00 08/08/21 10:04 Sodium Chloride 0.9% 10 Ml Flush Syringe IV 10 ml BID JODI Administration Sodium Chloride 10 ml 08/05/21 21:03 Sodium Chloride 0.9% 10 Ml Flush Syringe IV PRN PRN LINE FLUSH
[2021-08-08] MEDS: DEXTROSE 10% IN WATER 1,000 ML IV SCH (14:27)
[2021-08-08] MEDS: AMIODARONE 900 MG in DEXTROSE 5% IN WATER 482 ML IV SCH (15:09)
--- NOTE | 2021-08-09 01:19 | XRay Report ---
CHEST 1 VIEW 08/09/2021 12:53 AM INDICATION / CLINICAL INFORMATION: follow up respiratory failure. COMPARISON: 08/08/2021 FINDINGS: SUPPORT DEVICES: Unchanged. HEART / MEDIASTINUM: Stable. LUNGS / PLEURA: Redemonstrated not significant changed airspace opacities. No pneumothorax. ADDITIONAL FINDINGS: No significant additional findings. IMPRESSION: 1. No significant change. Signer Name: Bal Zelaya DO Signed: 08/09/2021 1:15 AM Workstation Name: [id number]
[2021-08-09 04:59] LABS: Hematocrit 26.5 % (30.3-42.9); Hemoglobin 8.3 gm/dl (10.1-14.3); Mean Corpuscular HGB Conc 31 % (30-34); Mean Corpuscular Volume 84 fl (79-97); Platelet Count 113 K/mm3 (140-440); Red Blood Count 3.16 M/mm3 (3.65-5.03); Red Cell Distribution Width 18.3 % (13.2-15.2)
[2021-08-09] MEDS: ISOSORBIDE DINITRATE 10 MG TAB PO SCH ×3 (05:03→21:40)
[2021-08-09 05:15] LABS: Calcium 8.7 mg/dL (8.4-10.2)
[2021-08-09 05:20] LABS: ABG HCO3 26.6 mmol/L (20.0-26.0); ABG Methemoglobin 0.4 % (0.0-1.5); ABG Oxygen Saturation 97.1 % (95.0-99.0); ABG PCO2 41.2 mm Hg; ABG PH 7.427 pH Units (7.350-7.450); ABG PO2 91.5 mm Hg (80.0-90.0)
[2021-08-09] MEDS: DEXTROSE 50% IN WATER (25GM) 50 ML SYRINGE IV PRN (05:26)
[2021-08-09] MEDS: METOPROLOL TARTRATE 50 MG TAB PO SCH ×3 (08:08→21:40)
[2021-08-09] MEDS: ASPIRIN 81 MG TAB CHEW PO SCH (09:36)
[2021-08-09] MEDS: FAMOTIDINE 20 MG/2 ML INJ IV SCH (09:36)
[2021-08-09] MEDS: LOSARTAN 25 MG TAB PO SCH ×2 (09:36→21:40)
[2021-08-09] MEDS: SENNOSIDES ORAL LIQD 8.8 MG/5 ML ORAL LIQD FEEDTUBE SCH ×2 (09:37→21:40)
--- NOTE | 2021-08-09 10:24 | Progress Note ---
Assessment and Plan - Patient Problems (1) Hypokalemia Current Visit: Yes Status: Acute Plan to address problem: levels stable this morning. We will continue to monitor and replete per protocol. (2) Sustained ventricular tachycardia Current Visit: Yes Status: Acute Plan to address problem: intubated, sedated, and has received lidocaine Per cardiology recommendations. Pending transfer to [place] at this time. (3) Anemia Current Visit: Yes Status: Chronic Qualifiers: Anemia type: due to chronic kidney disease Plan to address problem: JANETH therapy with hemodialysis (4) End stage renal disease on dialysis Current Visit: Yes Status: Chronic Plan to address problem: continue on current Thursday, Thursday, Thursday inpatient hemodialysis schedule. (5) Diabetes Current Visit: No Status: Acute Plan to address problem: diabetes management per primary attending. Subjective Date of service: 08/09/21 Principal diagnosis: V. tach Interval history: Seen at bedside, no acute issues from renal [place]. Plan for HD today. Pending transfer to [place]. COVID-19 was (-). Objective - Vital Signs Vital signs: Vital Signs - 12hr 08/08/21 08/08/21 08/08/21 23:00 23:12 23:17 Temperature Pulse Rate 70 70 70 Pulse Rate [ From Monitor] Pulse Rate [ Left Radial] Pulse Rate [ Right Radial] Respiratory 12 12 Rate Blood Pressure 165/77 167/76 O2 Sat by Pulse 100 100 Oximetry 08/08/21 08/09/21 08/09/21 23:48 00:00 00:10 Temperature 98.1 F Pulse Rate 70 70 Pulse Rate [ 70 From Monitor] Pulse Rate [ 70 Left Radial] Pulse Rate [ 70 Right Radial] Respiratory 12 12 Rate Blood Pressure 161/73 171/78 O2 Sat by Pulse 99 100 100 Oximetry 08/09/21 08/09/21 08/09/21 01:00 02:00 02:20 Temperature 98.8 F Pulse Rate 70 70 Pulse Rate [ From Monitor] Pulse Rate [ Left Radial] Pulse Rate [ Right Radial] Respiratory 12 13 Rate Blood Pressure 164/73 164/72 O2 Sat by Pulse 100 100 Oximetry 08/09/21 08/09/21 08/09/21 03:00 04:00 04:10 Temperature 98.8 F Pulse Rate 70 70 70 Pulse Rate [ 70 From Monitor] Pulse Rate [ 70 Left Radial] Pulse Rate [ 70 Right Radial] Respiratory 11 L 12 Rate Blood Pressure 165/77 171/78 O2 Sat by Pulse 100 100 100 Oximetry 08/09/21 08/09/21 08/09/21 05:00 06:00 07:00 Temperature Pulse Rate 70 70 71 Pulse Rate [ From Monitor] Pulse Rate [ Left Radial] Pulse Rate [ Right Radial] Respiratory 12 12 12 Rate Blood Pressure 164/78 165/87 158/87 O2 Sat by Pulse 100 98 100 Oximetry 08/09/21 08/09/21 08/09/21 08:00 08:08 08:53 Temperature 97.9 F Pulse Rate 70 70 70 Pulse Rate [ 70 From Monitor] Pulse Rate [ Left Radial] Pulse Rate [ Right Radial] Respiratory 12 Rate Blood Pressure 149/75 149/75 144/74 O2 Sat by Pulse 98 99 Oximetry 08/09/21 08/09/21 08/09/21 09:00 09:36 10:00 Temperature Pulse Rate 70 70 70 Pulse Rate [ From Monitor] Pulse Rate [ Left Radial] Pulse Rate [ Right Radial] Respiratory 12 13 Rate Blood Pressure 152/76 145/74 140/76 O2 Sat by Pulse 99 100 Oximetry - General Appearance General appearance: chronically ill, frail EENT: ATNC Neck: no JVD Respiratory: Present: Clear to Ascultation, Decreased Breath Sounds Cardiology: regular Gastrointestinal: normal Integumentary: no rash Musculoskeletal: deferred - Lab 08/09/21 04:33 08/09/21 04:33 Most recent lab results ABG pH 7.427 pH Units (7.350-7.450) 08/09/21 04:30 ABG pCO2 41.2 mm Hg 08/09/21 04:30 ABG pO2 91.5 mm Hg (80.0-90.0) H 08/09/21 04:30 ABG HCO3 26.6 mmol/L (20.0-26.0) H 08/09/21 04:30 ABG O2 Saturation 97.1 % (95.0-99.0) 08/09/21 04:30 Calcium 8.7 mg/dL (8.4-10.2) 08/09/21 04:33 Phosphorus 3.20 mg/dL (2.5-4.5) D 08/07/21 04:00 Magnesium 1.80 mg/dL (1.7-2.3) 08/07/21 04:00 Medications & Allergies - Medications Allergies/Adverse Reactions: Allergies No Known Allergies Allergy (Unverified 07/10/21 20:57) Home Medications: Home Medications Medication Instructions Recorded Confirmed Last Taken Type Icosapent Ethyl [Vascepa] 2 gm PO BID 07/12/21 07/12/21 Unknown History Losartan [Cozaar] 25 mg PO BID 07/12/21 07/12/21 Unknown History ALBUTEROL NEB's [Proventil 0.083% 2.5 mg IH Q4HRT PRN nebu 07/15/21 Unknown Rx NEBS] Acetaminophen [Acetaminophen 650 mg [place] Q4H PRN supp.rect 07/15/21 Unknown Rx SUPPOS] Acetaminophen [Acetaminophen TAB] 650 mg PO Q4H PRN tablet 07/15/21 Unknown Rx Amiodarone [Cordarone 200 MG TAB] 200 mg PO BID tablet 07/15/21 Unknown Rx AtorvaSTATin [Lipitor] 80 mg PO QHS tablet 07/15/21 Unknown Rx Clopidogrel [Plavix] 75 mg PO QDAY tablet 07/15/21 Unknown Rx Dextrose 50% in Water [D50W (25GM) 50 ml IV Q30MIN PRN syringe 07/15/21 Unknown Rx Syringe] Free Water 60 ml PO Q4HR oral.liqd 07/15/21 Unknown Rx Isosorbide Dinitrate [Isordil] 5 mg PO Q8HR tablet 07/15/21 Unknown Rx Lipase/Protease/Amylase [Pancreaze 1 each FEEDTUBE PRN PRN capsule 07/15/[address] 10,500 Unit] Lispro Insulin [HumaLOG] 0 unit SUB-Q Q6HR units 07/15/21 Unknown Rx Metoprolol [Lopressor TAB] 25 mg PO TID tablet 07/15/21 Unknown Rx Simple Syrup 30 ml FEEDTUBE PRN PRN oral.liqd 07/15/21 Unknown Rx hydrALAZINE [Apresoline INJ] 10 mg IV Q6H PRN vial 07/15/21 Unknown Rx Active Medications: Generic Name Dose Route Start Last Admin Trade Name Freq PRN Reason Stop Dose Admin Acetaminophen 650 mg 08/05/21 21:03 08/08/21 00:53 Acetaminophen 325 Mg Tab PO 650 mg Q4H PRN Administration Pain MILD(1-3)/Fever >100.5/COWART Acetaminophen 650 mg 08/06/21 16:30 08/06/21 16:30 Acetaminophen 650 Mg Rect Supp [place] 650 mg Q6H PRN Administration Pain, Mild (1-3) Albuterol 2.5 mg 08/05/21 20:59 Albuterol 2.5 Mg/3 Ml Nebu IH Q4HRT PRN Shortness Of Breath Lipase/Protease/Amylase 1 each 08/07/21 09:47 Lipase 10,500/Protease 25,000/Amylase 43,750 (Units) Dr Cap FEEDTUBE PRN PRN For Clogged Feeding Tube Aspirin 81 mg 08/07/21 10:00 08/09/21 09:36 Aspirin 81 Mg Tab Chew PO 81 mg QDAY JODI Administration Atorvastatin Calcium 80 mg 08/05/21 22:00 08/08/21 21:21 Atorvastatin 40 Mg Tab PO 80 mg QHS JODI Administration Dextrose 25 ml 08/06/21 15:08 08/09/21 05:26 Dextrose 50% In Water (25gm) 50 Ml Syringe IV 15 ml Q30MIN PRN Administration Hypoglycemia Protocol Famotidine 10 mg 08/06/21 10:00 08/09/21 09:36 Famotidine 20 Mg/2 Ml Inj IV 10 mg BID JODI Administration Fentanyl 50 mcg 08/05/21 17:25 Fentanyl 100 Mcg/2 Ml Inj IV Q10MIN PRN ANALGESIA Hydralazine HCl 10 mg 08/06/21 04:21 08/08/21 19:53 Hydralazine 20 Mg/1 Ml Inj IV 10 mg Q6HR PRN Administration Hypertension Hydrophilic Ointment 1 applic 08/05/21 17:25 Lip Therapy Vaseline TP Q2HR PRN Dry Lips Fentanyl Citrate 2,000 mcg in 100 mls @ 3.213 mls/hr 08/05/21 18:00 08/09/21 06:38 Fentanyl Drip Premix IV 1 mcg/kg/hr TITR JODI 3.213 mls/hr Titration Protocol 1 MCG/KG/HR Amiodarone HCl 900 mg/ 500 mls @ 33.333 mls/hr 08/06/21 12:00 08/08/21 15:09 Dextrose IV 0.5 mg/min DIRECT JODI 16.667 mls/hr Administration Protocol 1 MG/MIN Propofol 1,000 mg in 100 mls @ 1.928 mls/hr 08/06/21 17:00 08/09/21 09:58 Diprivan 10 Mg/Ml IV 20 mcg/kg/min TITR JODI 7.71 mls/hr Titration Protocol 5 MCG/KG/MIN Nicardipine HCl 50 mg/ Sodium 250 mls @ 25 mls/hr 08/06/21 18:00 08/07/21 06:44 Chloride IV 0 mg/hr TITR JODI 0 mls/hr Titration Protocol 5 MG/HR Dextrose 1,000 mls @ 30 mls/hr 08/06/21 23:45 08/08/21 14:27 D10w IV 30 mls/hr DIRECT JODI Administration Sodium Chloride 100 mls @ 999 mls/hr 08/06/21 23:18 Nacl 0.9% IV GLENDY PRN Hypotension Isosorbide Dinitrate 5 mg 08/05/21 22:00 08/09/21 05:03 Isosorbide Dinitrate 10 Mg Tab PO 5 mg Q8HR JODI Administration Losartan Potassium 25 mg 08/05/21 22:00 08/09/21 09:36 Losartan 25 Mg Tab PO 25 mg BID JODI Administration Metoclopramide HCl 5 mg 08/05/21 21:03 Metoclopramide 10 Mg/2 Ml Inj IV Q6H PRN Nausea And Vomiting Metoprolol Tartrate 25 mg 08/06/21 08:00 08/09/21 08:08 Metoprolol Tartrate 50 Mg Tab PO 25 mg TID JODI Administration Multi-Ingred Cream/Lotion/Oil/Oint 1 applic 08/05/21 17:25 Mineral Oil/Petrolatum, White Ophth Oint 3.5 Gm OU Q4HR PRN Dry Eye(s) Ondansetron HCl 4 mg 08/05/21 21:03 Ondansetron 4 Mg/2 Ml Inj IV Q8H PRN Nausea And Vomiting Oxycodone/Acetaminophen 1 tab 08/05/21 21:03 Oxycodone /Acetaminophen 5-325mg Tab PO Q6H PRN Pain, Moderate (4-6) Senna 8.8 mg 08/07/21 13:00 08/09/21 09:37 Sennosides Oral Liqd 8.8 Mg/5 Ml Oral Liqd FEEDTUBE Not Given BID JODI Simple Syrup 15 ml 08/07/21 09:47 Simple Syrup 15 Ml FEEDTUBE PRN PRN Hypoglycemia Simple Syrup 30 ml 08/07/21 09:47 Simple Syrup 15 Ml FEEDTUBE PRN PRN Hypoglycemia Sodium Bicarbonate 325 mg 08/07/21 09:47 Sodium Bicarbonate 325 Mg Tab FEEDTUBE PRN PRN For Clogged Feeding Tube Sodium Chloride 10 ml 08/05/21 22:00 08/09/21 09:37 Sodium Chloride 0.9% 10 Ml Flush Syringe IV 10 ml BID JODI Administration Sodium Chloride 10 ml 08/05/21 21:03 Sodium Chloride 0.9% 10 Ml Flush Syringe IV PRN PRN LINE FLUSH
--- NOTE | 2021-08-09 13:08 | Progress Note ---
Assessment and Plan Assessment and plan: This is 60-year-old female with ESRD on HD, recurrent AICD discharges, V. tach, cardiac arrest, anemia of chronic disease, CAD, systolic HF and HTN admitted for V. tach and severe hypokalemia Neuro: Sedated -Sedated with fentanyl and propofol -RASS goal -1 to -2 -Avoid delirium -Reorientation as needed -SAT/SBT when appropriate CV: Recurrent V. tach, NSTEMI, h/o s/p AICD implantation, systolic heart failure, V. tach, HTN -Cardiology consulted, appreciate recommendations -S/p lidocaine and Cardene drip -Restarted home p.o. antihypertensive regimen -adjust as needed -Amiodarone drip -Awaiting transfer to [facility] -Continue Lipitor Respiratory: Intubated for airway protection -CCM consulted, appreciate recommendations -Intubated in the ED on 08/05 with a 6.50 ETT at 21 at the lips -A.m. vent settings assist-control rate 12, tidal volume 375, PEEP 6, FiO2 25% -See RT notes for titration -A.m. ABG and CXR noted -VAP bundle -SPO2 monitoring GI: NAD -Nutrition consult for tube feeding -Start TF -24 hours +2574 ml -stop MIVF when at goal -PPI -BR: Senokot : ESRD on HD, hyponatremia, hypochloremia -Nephrology consulted, appreciate recommendations -HD per nephrology -Avoid nephrotoxic medications -Renally dose medications -Strict intake and output -Replete potassium ID: Leukopenia -Monitor WBC and fever curve -Follow-up blood culture x2 and sputum culture -NGTD Heme: Thrombocytopenia, acute on chronic anemia of chronic disease, leukopenia -S/p 2 unit PRBC -Noted to have bloody drainage from mouth and nose -Trend CBC -Transfuse for hemoglobin less than 7 -Epogen per nephrology -Hold chemical anticoagulation in setting of thrombocytopenia -SCDs to bilateral LE while in bed Endo: Hypoglycemia (resolved) -D10 drip at 30ml/hr -DC when TF at goal -Avoid hypoglycemia -Accu-Cheks every 4 Critical care statement The high probability of a clinically significant sudden or life-threatening deterioration of the [cardiorespiratory system] and endocrine system required my full and direct attention, intervention and postoperative management. The aggregate critical care time was [60] minutes. The time is in addition to time spent performing reported procedures but includes the following: [x] 1: Data review and interpretation [x] 2: Patient assessment and monitoring of vital signs [x] 3: Documentation [x] 4: Medication orders and management Disposition Plan: icu Total Time Spent with Patient (Minutes): 60 History Interval history: This is 60-year-old female with ESRD on HD, recurrent AICD discharges, systolic heart failure, V. tach, cardiac arrest, anemia, CAD and HTN who presents to the emergency department from her dialysis center on 08/05 for severe muscle spasms secondary to AICD discharges per patient. She also had questionable seizures in the dialysis center. Patient was started on amiodarone and lidocaine. Patient was intubated for airway protection in the emergency department and work-up also revealed severe hypokalemia. Patient was admitted to the hospital service with consult cardiology, nephrology and CCM. 08/06/2021: Patient is sedated, Transfer to [facility] arranged 08/07: COVID-19 PCR negative. Patient received hemodialysis today. Off Cardene drip. Patient has been OG tube for p.o. BP medications. Thrombocytopenia pe rsists therefore anticoagulation is held. Patient is leukopenia also. We will continue to trend CBC. Persistent hypoglycemia and D10 drip increased to 30 ml/hr. negative Covid test relayed to [facility]. 08/08: 1 unit prbc today, will start TF today. Still awaiting [facility] bed. 08/09: awaiting transfer to [facility]. TF nearly at goal so anticipate stopping dextrose IVF soon. Midline to be placed Hospitalist Physical - Constitutional Vitals: Temp Pulse Resp BP Pulse Ox 97.9 F 70 13 140/76 100 08/09/21 12:00 08/09/21 10:00 08/09/21 10:00 08/09/21 10:00 08/09/21 10:00 General appearance: Present: no acute distress, well-nourished - EENT Eyes: Present: PERRL, EOM intact ENT: hearing intact, clear oral mucosa, dentition normal - Neck Neck: Present: supple, normal ROM - Respiratory Respiratory effort: normal Respiratory: bilateral: CTA - Cardiovascular Rhythm: regular Heart Sounds: Present: S1 & S2. Absent: systolic murmur, diastolic murmur - Extremities Extremities: no ischemia, pulses intact, pulses symmetrical, normal temperature, normal color Extremity abnormal: edema Peripheral Pulses: within normal limits - Abdominal General gastrointestinal: soft, non-tender, non-distended - Integumentary Integumentary: Present: warm, dry - Psychiatric Psychiatric: other (sedated) - Neurologic Neurologic: other (sedated) - Allied Health Allied health notes reviewed: nursing, RT HEART Score - HEART Score Age: 45-65 Risk factors: > 3 risk factors or hx of atherosclerotic disease Troponin: Troponin T 0.183 ng/mL (0.00-0.029) H* D 08/05/21 18:56 Troponin: 1-3x normal limit - Critical Actions Critical Actions: 4-6 pts:12-16.6% risk of adverse cardiac event. Should be admitted Results - Labs CBC & Chem 7: 08/09/21 04:33 08/09/21 04:33 Labs: Laboratory Last Values WBC 2.4 K/mm3 (4.5-11.0) L 08/09/21 04:33 RBC 3.16 M/mm3 (3.65-5.03) L 08/09/21 04:33 Hgb 8.3 gm/dl (10.1-14.3) L 08/09/21 04:33 Hct 26.5 % (30.3-42.9) L 08/09/21 04:33 MCV 84 fl (79-97) 08/09/21 04:33 MCH 26 pg (28-32) L 08/09/21 04:33 MCHC 31 % (30-34) 08/09/21 04:33 RDW 18.3 % (13.2-15.2) H 08/09/21 04:33 Plt Count 113 K/mm3 (140-440) L 08/09/21 04:33 Lymph % (Auto) Online Marketing Director 08/07/21 04:00 Barton % (Auto) 15.5 % (0.0-7.3) H 08/06/21 16:35 Eos % (Auto) 2.2 % (0.0-4.3) 08/06/21 16:35 Baso % (Auto) Online Marketing Director 08/07/21 04:00 Lymph # (Auto) 0.8 K/mm3 (1.2-5.4) L 08/06/21 16:35 Barton # (Auto) 0.7 K/mm3 (0.0-0.8) 08/06/21 16:35 Eos # (Auto) 0.1 K/mm3 (0.0-0.4) 08/06/21 16:35 Baso # (Auto) 0.1 K/mm3 (0.0-0.1) 08/06/21 16:35 Add Manual Diff Complete 08/07/21 04:00 Total Counted 100 08/07/21 04:00 Seg Neutrophils % Online Marketing Director 08/07/21 04:00 Seg Neuts % (Manual) 16.0 % (40.0-70.0) L 08/07/21 04:00 Lymphocytes % (Manual) 60.0 % (13.4-35.0) H 08/07/21 04:00 Reactive Lymphs % (Man) 5.0 % 08/07/21 04:00 Monocytes % (Manual) 18.0 % (0.0-7.3) H 08/05/21 15:55 Eosinophils % (Manual) 11.0 % (0.0-4.3) H 08/07/21 04:00 Basophils % (Manual) 4.0 % (0.0-1.8) H 08/07/21 04:00 Metamyelocytes % 4.0 % 08/07/21 04:00 Nucleated RBC % Not Reportable 08/07/21 04:00 Seg Neutrophils # 2.6 K/mm3 (1.8-7.7) 08/06/21 16:35 Seg Neutrophils # Man 0.2 K/mm3 (1.8-7.7) L 08/07/21 04:00 Band Neutrophils # 0.0 K/mm3 08/07/21 04:00 Lymphocytes # (Manual) 0.6 K/mm3 (1.2-5.4) L 08/07/21 04:00 Abs React Lymphs (Man) 0.1 K/mm3 08/07/21 04:00 Monocytes # (Manual) 0.0 K/mm3 (0.0-0.8) 08/07/21 04:00 Eosinophils # (Manual) 0.1 K/mm3 (0.0-0.4) 08/07/21 04:00 Basophils # (Manual) 0.0 K/mm3 (0.0-0.1) 08/07/21 04:00 Metamyelocytes # 0.0 K/mm3 08/07/21 04:00 Myelocytes # 0.0 K/mm3 08/07/21 04:00 Promyelocytes # 0.0 K/mm3 08/07/21 04:00 Blast Cells # 0.0 K/mm3 08/07/21 04:00 WBC Morphology Not Reportable 08/07/21 04:00 WBC Morphology TNR 08/07/21 04:00 Hypersegmented Neuts Not Reportable 08/07/21 04:00 Hyposegmented Neuts Not Reportable 08/07/21 04:00 Hypogranular Neuts Not Reportable 08/07/21 04:00 Smudge Cells Not Reportable 08/07/21 04:00 Toxic Granulation Not Reportable 08/07/21 04:00 Toxic Vacuolation Not Reportable 08/07/21 04:00 Dohle Bodies Not Reportable 08/07/21 04:00 Pelger-Huet Anomaly Not Reportable 08/07/21 04:00 Claudio Rods Not Reportable 08/07/21 04:00 Platelet Estimate Consistent w auto 08/07/21 04:00 Clumped Platelets Not Reportable 08/07/21 04:00 Plt Clumps, EDTA Not Reportable 08/07/21 04:00 Large Platelets Not Reportable 08/07/21 04:00 Giant Platelets Not Reportable 08/07/21 04:00 Platelet Satelliting Not Reportable 08/07/21 04:00 Plt Morphology Comment Not Reportable 08/07/21 04:00 RBC Morphology Not Reportable 08/07/21 04:00 Dimorphic RBCs Not Reportable 08/07/21 04:00 Polychromasia Not Reportable 08/07/21 04:00 Hypochromasia 1+ 08/07/21 04:00 Poikilocytosis Not Reportable 08/07/21 04:00 Anisocytosis Not Reportable 08/07/21 04:00 Microcytosis Not Reportable 08/07/21 04:00 Macrocytosis Not Reportable 08/07/21 04:00 Spherocytes Not Reportable 08/07/21 04:00 Pappenheimer Bodies Not Reportable 08/07/21 04:00 Sickle Cells Not Reportable 08/07/21 04:00 Target Cells Few 08/07/21 04:00 Tear Drop Cells Few 08/07/21 04:00 Ovalocytes Not Reportable 08/07/21 04:00 Helmet Cells Not Reportable 08/07/21 04:00 Diaz-Lucien Bodies Not Reportable 08/07/21 04:00 Grants Rings Not Reportable 08/07/21 04:00 [place] Cells Not Reportable 08/07/21 04:00 Bite Cells Not Reportable 08/07/21 04:00 Crenated Cell Not Reportable 08/07/21 04:00 Elliptocytes Not Reportable 08/07/21 04:00 Acanthocytes (Spur) Not Reportable 08/07/21 04:00 Rouleaux Not Reportable 08/07/21 04:00 Hemoglobin C Crystals Not Reportable 08/07/21 04:00 Schistocytes Not Reportable 08/07/21 04:00 Malaria parasites Not Reportable 08/07/21 04:00 Aleks Bodies Not Reportable 08/07/21 04:00 Hem Pathologist Commnt No 08/07/21 04:00 PT 14.2 Sec. (12.2-14.9) 08/06/21 16:35 INR 0.99 (0.87-1.13) 08/06/21 16:35 APTT 37.1 Sec. (24.2-36.6) H 08/06/21 07:26 ABG pH 7.427 pH Units (7.350-7.450) 08/09/21 04:30 POC ABG pCO2 40.5 mmHg (32.0-48.0) 08/08/21 09:45 ABG pCO2 41.2 mm Hg 08/09/21 04:30 POC ABG pO2 71.1 mmHg (83-108) L 08/08/21 09:45 ABG pO2 91.5 mm Hg (80.0-90.0) H 08/09/21 04:30 POC ABG HCO3 28.9 08/08/21 09:45 ABG HCO3 26.6 mmol/L (20.0-26.0) H 08/09/21 04:30 ABG O2 Saturation 97.1 % (95.0-99.0) 08/09/21 04:30 ABG O2 Content 12.3 (0.0-44) 08/09/21 04:30 ABG Base Excess 2.0 mmol/L (-2.0-3.0) 08/09/21 04:30 ABG Hemoglobin 9.0 gm/dl (12.0-16.0) L 08/09/21 04:30 ABG Carboxyhemoglobin 1.4 % (0.0-5.0) 08/09/21 04:30 ABG Methemoglobin 0.4 % (0.0-1.5) 08/09/21 04:30 ABG Sodium 128.9 mmol/L (136.0-145.0) L 08/08/21 09:45 ABG Potassium 4.5 mmol/L (3.40-4.50) 08/08/21 09:45 ABG Chloride 95.0 mmol/L (98-107) L 08/08/21 09:45 ABG Glucose 64 mg/dL (65-95) L 08/08/21 09:45 Oxyhemoglobin 95.4 % (95.0-99.0) 08/09/21 04:30 FiO2 25 % 08/09/21 04:30 FiO2 % 21.0 08/08/21 09:45 Sodium 129 mmol/L (137-145) L 08/09/21 04:33 Potassium 4.5 mmol/L (3.6-5.0) 08/09/21 04:33 Chloride 91.9 mmol/L (98-107) L 08/09/21 04:33 Carbon Dioxide 24 mmol/L (22-30) 08/09/21 04:33 Anion Gap 18 mmol/L 08/09/21 04:33 BUN 22 mg/dL (7-17) H 08/09/21 04:33 Creatinine 4.7 mg/dL (0.6-1.2) H 08/09/21 04:33 Estimated GFR 11 ml/min 08/09/21 04:33 BUN/Creatinine Ratio 5 % 08/09/21 04:33 Glucose 77 mg/dL (65-100) 08/09/21 04:33 POC Glucose 92 mg/dL (70-105) 08/09/21 06:01 Calcium 8.7 mg/dL (8.4-10.2) 08/09/21 04:33 Phosphorus 3.20 mg/dL (2.5-4.5) D 08/07/21 04:00 Magnesium 1.80 mg/dL (1.7-2.3) 08/07/21 04:00 Total Bilirubin 0.70 mg/dL (0.1-1.2) 08/06/21 16:35 AST 18 units/L (5-40) 08/06/21 16:35 ALT 7 units/L (7-56) 08/06/21 16:35 Alkaline Phosphatase 102 units/L (35-129) 08/06/21 16:35 Troponin T 0.183 ng/mL (0.00-0.029) H* D 08/05/21 18:56 Total Protein 6.2 g/dL (6.3-8.2) L 08/06/21 16:35 Albumin 3.2 g/dL (3.9-5) L 08/06/21 16:35 Albumin/Globulin Ratio 1.1 % 08/06/21 16:35 Triglycerides 129 mg/dL (2-149) 08/09/21 04:33 Cholesterol 170 mg/dL (50-199) 08/05/21 15:55 LDL Cholesterol Direct 106 mg/dL (50-130) 08/05/21 15:55 HDL Cholesterol 32 mg/dL (40-59) L 08/05/21 15:55 Cholesterol/HDL Ratio 5.31 % 08/05/21 15:55 TSH 7.070 mlU/mL (0.270-4.200) H 08/07/21 13:30 Arterial Blood Glucose 64 mg/dL (65-95) L 08/08/21 09:45 Arterial Blood Ionized Calcium 4.6 mg/dL (4.6-5.3) 08/08/21 09:45 Coronavirus (PCR) Negative (Negative) 08/07/21 Unknown Hepatitis A IgM Ab Non-reactive (NonReactive) 08/08/21 04:26 Hep Bs Antigen Nonreactive (Negative) 08/08/21 04:26 Hep B Core IgM Ab Non-reactive (NonReactive) 08/08/21 04:26 Hepatitis C Antibody Non-reactive (NonReactive) 08/08/21 04:26 Blood Type O POSITIVE 08/06/21 05:30 Antibody Screen Negative 08/06/21 05:30 Crossmatch See Detail 08/06/21 05:30 Microbiology: Microbiology 08/06/21 18:48 Peripheral/Venous Blood Culture - Preliminary NO GROWTH AFTER 48 HOURS 08/06/21 18:48 Peripheral/Venous Blood Culture - Preliminary NO GROWTH AFTER 48 HOURS Active Medications - Current Medications Current Medications: Generic Name Dose Route Start Last Admin Trade Name Freq PRN Reason Stop Dose Admin Acetaminophen 650 mg 08/05/21 21:03 08/08/21 00:53 Acetaminophen 325 Mg Tab PO 650 mg Q4H PRN Administration Pain MILD(1-3)/Fever >100.5/COWART Acetaminophen 650 mg 08/06/21 16:30 08/06/21 16:30 Acetaminophen 650 Mg Rect Supp OH 650 mg Q6H PRN Administration Pain, Mild (1-3) Albuterol 2.5 mg 08/05/21 20:59 Albuterol 2.5 Mg/3 Ml Nebu IH Q4HRT PRN Shortness Of Breath Lipase/Protease/Amylase 1 each 08/07/21 09:47 Lipase 10,500/Protease 25,000/Amylase 43,750 (Units) Dr Cap FEEDTUBE PRN PRN For Clogged Feeding Tube Aspirin 81 mg 08/07/21 10:00 08/09/21 09:36 Aspirin 81 Mg Tab Chew PO 81 mg QDAY JODI Administration Atorvastatin Calcium 80 mg 08/05/21 22:00 08/08/21 21:21 Atorvastatin 40 Mg Tab PO 80 mg QHS JODI Administration Dextrose 25 ml 08/06/21 15:08 08/09/21 05:26 Dextrose 50% In Water (25gm) 50 Ml Syringe IV 15 ml Q30MIN PRN Administration Hypoglycemia Protocol Famotidine 10 mg 08/06/21 10:00 08/09/21 09:36 Famotidine 20 Mg/2 Ml Inj IV 10 mg BID JODI Administration Fentanyl 50 mcg 08/05/21 17:25 Fentanyl 100 Mcg/2 Ml Inj IV Q10MIN PRN ANALGESIA Hydralazine HCl 10 mg 08/06/21 04:21 08/08/21 19:53 Hydralazine 20 Mg/1 Ml Inj IV 10 mg Q6HR PRN Administration Hypertension Hydrophilic Ointment 1 applic 08/05/21 17:25 Lip Therapy Vaseline TP Q2HR PRN Dry Lips Fentanyl Citrate 2,000 mcg in 100 mls @ 3.213 mls/hr 08/05/21 18:00 08/09/21 06:38 Fentanyl Drip Premix IV 1 mcg/kg/hr TITR JODI 3.213 mls/hr Titration Protocol 1 MCG/KG/HR Amiodarone HCl 900 mg/ 500 mls @ 33.333 mls/hr 08/06/21 12:00 08/08/21 15:09 Dextrose IV 0.5 mg/min DIRECT JODI 16.667 mls/hr Administration Protocol 1 MG/MIN Propofol 1,000 mg in 100 mls @ 1.928 mls/hr 08/06/21 17:00 08/09/21 09:58 Diprivan 10 Mg/Ml IV 20 mcg/kg/min TITR JODI 7.71 mls/hr Titration Protocol 5 MCG/KG/MIN Nicardipine HCl 50 mg/ Sodium 250 mls @ 25 mls/hr 08/06/21 18:00 08/07/21 06:44 Chloride IV 0 mg/hr TITR JODI 0 mls/hr Titration Protocol 5 MG/HR Dextrose 1,000 mls @ 30 mls/hr 08/06/21 23:45 08/08/21 14:27 D10w IV 30 mls/hr DIRECT JODI Administration Sodium Chloride 100 mls @ 999 mls/hr 08/06/21 23:18 Nacl 0.9% IV GLENDY PRN Hypotension Isosorbide Dinitrate 5 mg 08/05/21 22:00 08/09/21 05:03 Isosorbide Dinitrate 10 Mg Tab PO 5 mg Q8HR JODI Administration Losartan Potassium 25 mg 08/05/21 22:00 08/09/21 09:36 Losartan 25 Mg Tab PO 25 mg BID JODI Administration Metoclopramide HCl 5 mg 08/05/21 21:03 Metoclopramide 10 Mg/2 Ml Inj IV Q6H PRN Nausea And Vomiting Metoprolol Tartrate 25 mg 08/06/21 08:00 08/09/21 08:08 Metoprolol Tartrate 50 Mg Tab PO 25 mg TID JODI Administration Multi-Ingred Cream/Lotion/Oil/Oint 1 applic 08/05/21 17:25 Mineral Oil/Petrolatum, White Ophth Oint 3.5 Gm OU Q4HR PRN Dry Eye(s) Ondansetron HCl 4 mg 08/05/21 21:03 Ondansetron 4 Mg/2 Ml Inj IV Q8H PRN Nausea And Vomiting Oxycodone/Acetaminophen 1 tab 08/05/21 21:03 Oxycodone /Acetaminophen 5-325mg Tab PO Q6H PRN Pain, Moderate (4-6) Senna 8.8 mg 08/07/21 13:00 08/09/21 09:37 Sennosides Oral Liqd 8.8 Mg/5 Ml Oral Liqd FEEDTUBE Not Given BID JODI Simple Syrup 15 ml 08/07/21 09:47 Simple Syrup 15 Ml FEEDTUBE PRN PRN Hypoglycemia Simple Syrup 30 ml 08/07/21 09:47 Simple Syrup 15 Ml FEEDTUBE PRN PRN Hypoglycemia Sodium Bicarbonate 325 mg 08/07/21 09:47 Sodium Bicarbonate 325 Mg Tab FEEDTUBE PRN PRN For Clogged Feeding Tube Sodium Chloride 10 ml 08/05/21 22:00 08/09/21 09:37 Sodium Chloride 0.9% 10 Ml Flush Syringe IV 10 ml BID JODI Administration Sodium Chloride 10 ml 08/05/21 21:03 Sodium Chloride 0.9% 10 Ml Flush Syringe IV PRN PRN LINE FLUSH Nutrition/Malnutrition Assess - Dietary Evaluation Nutrition/Malnutrition Findings: Nutrition Notes Start: 08/07/21 09:12 Freq: Status: Active Protocol: Document 08/07/21 09:12 KALA (Rec: 08/07/21 09:53 KALA [id number]) Nutrition Notes Need for Assessment generated from: MD Order Initial or Follow up Assessment Current Diagnosis CKD (stage V CKD),Coronary Artery Disease,Diabetes, Hypertension,Hyperlipidemia Other Pertinent Diagnosis ESRD+HD, AICD discharge secondary to V. Tachicardia. Current Diet TF-Nepro w/CARBSTEADY @ 32 ml/ hr (since L 08/07). Labs/Tests 08/06: Na 133, Cl 93.2, BUN 21 , Crea 4.6, Ca 8.3, Tpro 6.2, Alb 3.2. Pertinent Medications 08/07: D10w 1000 ml @ 25 ml/hr PRN, Propofol 1000 mg in 100 ml @ 1.928 ml/hr (51 Kcal), others nutritionally unremarkable. Height 5 ft 2 in Weight 64.25 kg [place] Body Weight (kg) 50.00 BMI 25.9 Weight change and time frame None reported at admission. Weight Status Overweight Subjective/Other Information RD consult to evaluate nutritional intake and write/ manage TF. Pt on mechanical ventilation, sedated (abnormal gag reflex and swallow impaired, due to sedation). Percent of energy/protein needs met: Prescribed Nepro w/CARBSTEADY @ 32 ml/hr will provide for energy/protein needs (1,403 Kcal/63 g) 100% Kcal; 82% AA, during LOS. Burn Absent Trauma Absent GI Symptoms None Food Allergy No Skin Integrity/Comment Clear, warm, dry. Current % PO Other Minimum of two criteria No #1 Nutrition Diagnosis Inadequate oral intake Etiology Pt on mechanical ventilation As Evidenced by Signs and Symptoms Pt is sedated (abnormal gag reflex and swallow impaired, due to sedation). Is patient on ventilator? Yes Is Patient Ambulatory and/or Out of Bed No REE-([facility]-confined to bed) 1403.892 Calculation Used for Recommendations [facility] Additional Notes Protein: 1.2-1.5 g/Kg; 77-96 g /day. Fluids: 1 ml/Kcal, or as per MD. Nutrition Intervention Nutrition Support: Start Nepro w/CARBSTEADY @ 32 ml/hr. Flush: 140 ml water Q 4 hr. Kcal 1,403 Protein (gm) 63 Carbohydrates (gm) 126 Fat (gm) 75 Fluid (mL) 567 Fiber (gm) 10 % RDI: 100% Kcal; 82% AA. Goal #1 Provide at least 75% of energy /protein needs through Enteral Feeding during LOS. Follow-Up By: 08/09/21 Additional Comments Continue monitoring TF tolerance, and BM.
[2021-08-09] MEDS: hydrALAZINE 20 MG/1 ML INJ IV PRN ×2 (14:15→23:20)
[2021-08-09] MEDS: fentaNYL DRIP Premix 2,000 MCG/100 ML BAG IV SCH (15:49)
[2021-08-09] MEDS ORDERED: SODIUM CHLORIDE 0.9% 100 ML IV PRN (18:42)
--- NOTE | 2021-08-09 19:00 | Progress Note ---
Assessment and Plan VT Storm Recurrent AICD Discharges CAD s/p PCI (07/17/2021) Accelerated HTN (POA) Severe Hypokalemia (POA) ESRD on HD Anemia Thrombocytopenia Type 2 ME HTN H/o CVA [facility] 07/17/2021 Multivessel CAD - s/p successful IVUS-guided PCI with POBA to ostial LCx ECHO 07/16/2021 SUMMARY/CONCLUSIONS: 1. Left ventricular ejection fraction is 45-50%. 2. Aortic valve is moderately calcified and tricuspid. 3. Moderately dilated left atrium. 4. Mild aortic stenosis. 5. Dilated inferior vena cava, with respiratory size variation greater than 50%. 6. Trivial pericardial effusion. 7. Mildly increased left ventricular wall thickness. 8. Mild tricuspid regurgitation. 9. Mild mitral valve regurgitation. 10. Moderate mitral annular calcification. 11. The aortic valve max velocity is 2.38 m/s. The peak gradient is 22.7 mmHg with a mean gradient of 11.0 mmHg, the left ventricle outflow tract measures 2.00 cm. SARAH (VTI) is 1.40 cm with AVAi (VTI) of 0.96 cm/m. 12. The estimated right ventricular systolic pressure is mildly elevated right ventricular systolic pressure at 43.8 mmHg. Plan: Awaiting transfer to [place] for EPS/possible VT ablation pending bed availability as per previous documentation. Continue IV Amio gtt @ 0.5mg/min. Continue beta kathy as BP permits. Resume DAPT in light of recent PCI (unclear why this was held). Closely monitor H/H & Plts. Continue high-intensity statin. Pt seen in conjunction with Dr. Padilla, who agrees with the assessment and plan of care. - Patient Problems (1) VT (ventricular tachycardia) Current Visit: Yes Status: Acute (2) AICD (automatic cardioverter/defibrillator) present Current Visit: Yes Status: Chronic Subjective Date of service: 08/09/21 Principal diagnosis: Recurrent VT Interval history: No acute events reported. Atrial-paced 70 on tele, no events overnight. Objective Last Vital Signs Temp 98.1 F 08/09/21 16:00 Pulse 70 08/09/21 18:00 Resp 12 08/09/21 18:00 BP 160/69 08/09/21 18:00 Pulse Ox 99 08/09/21 18:00 - Physical Examination General: Other (intubated) HEENT: Positive: Normocephaly, Mucus Membranes Dry (bleeding noted from nose) Neck: Positive: neck supple, trachea midline Cardiac: Positive: Reg Rate and Rhythm Lungs: Positive: Ventilated Respirations Neuro: Positive: Other (intubated) Abdomen: Positive: Soft Skin: Negative: Rash Musculoskeletal: No Fluid Collection Extremities: Present: lower extr. pulses. Absent: edema - Labs and Meds Lipids 08/09/21 Range/Units 04:33 Triglycerides 129 (2-149) mg/dL CBC 08/09/21 Range/Units 04:33 WBC 2.4 L (4.5-11.0) K/mm3 RBC 3.16 L (3.65-5.03) M/mm3 Hgb 8.3 L (10.1-14.3) gm/dl Hct 26.5 L (30.3-42.9) % Plt Count 113 L (140-440) K/mm3 Comprehensive Metabolic Panel 08/09/21 Range/Units 04:33 Sodium 129 L (137-145) mmol/L Potassium 4.5 (3.6-5.0) mmol/L Chloride 91.9 L (98-107) mmol/L Carbon Dioxide 24 (22-30) mmol/L BUN 22 H (7-17) mg/dL Creatinine 4.7 H (0.6-1.2) mg/dL Glucose 77 (65-100) mg/dL Calcium 8.7 (8.4-10.2) mg/dL - Imaging and Cardiology EKG: report reviewed, image reviewed Echo: report reviewed - Telemetry EKG Rhythm: Sinus Rhythm - EKG Sinus rhythms and dysrhythmias: sinus rhythm Repolarization changes or abnormalities: Q-T interval prolongation Myocardial infarction: anterior ME (old age or i - Allied health notes Allied health notes reviewed: nursing
[2021-08-09] MEDS: AMIODARONE 360 MG in DEXTROSE 5% IN WATER 192.8 ML IV SCH (20:27)
[2021-08-09] MEDS: FAMOTIDINE 10 MG TAB PO SCH (21:40)
--- NOTE | 2021-08-09 23:19 | Progress Note ---
Assessment and Plan Imp: 1. Sustained VT 2. ICMP/CAD 3. Acute respiratory failure, hypoxia 4. ESRD 5. Hypokalemia 6. Pancytopenia Rec: 1. Amiodarone drip 2. Leaving on vent pending transfer to [place], but okay with SAT/SBT 3. For HD today 4. K repleted 5. Consider hematology eval. 6. EEG for involuntary movements of legs 7. Pepcid, SCDs, TFs 8. CCt 31 minutes; prognosis is guarded; no family present Subjective Date of service: 08/09/21 Principal diagnosis: Recurrent VT Interval history: No events. Sedated on ventilator. Cannot give history. Active Medications Acetaminophen (Acetaminophen 650 Mg Rect Supp) 650 mg MN Q6H PRN PRN Reason: Pain, Mild (1-3) Last Admin: 08/06/21 16:30 Dose: 650 mg Documented by: Albuterol (Albuterol 2.5 Mg/3 Ml Nebu) 2.5 mg IH Q4HRT PRN PRN Reason: Shortness Of Breath Lipase/Protease/Amylase (Lipase 10,500/Protease 25,000/Amylase 43,750 (Units) Dr Cap) 1 each FEEDTUBE PRN PRN PRN Reason: For Clogged Feeding Tube Aspirin (Aspirin 81 Mg Tab Chew) 81 mg PO QDAY [facility] Last Admin: 08/09/21 09:36 Dose: 81 mg Documented by: Atorvastatin Calcium (Atorvastatin 40 Mg Tab) 80 mg PO QHS [facility] Last Admin: 08/09/21 21:40 Dose: 80 mg Documented by: Clopidogrel Bisulfate (Clopidogrel 75 Mg Tab) 75 mg PO QDAY [facility] Dextrose (Dextrose 50% In Water (25gm) 50 Ml Syringe) 25 ml IV Q30MIN PRN; Prot ocol PRN Reason: Hypoglycemia Last Admin: 08/09/21 05:26 Dose: 15 ml Documented by: Famotidine (Famotidine 10 Mg Tab) 10 mg PO BID [facility] Last Admin: 08/09/21 21:40 Dose: 10 mg Documented by: Fentanyl (Fentanyl 100 Mcg/2 Ml Inj) 50 mcg IV Q10MIN PRN PRN Reason: ANALGESIA Hydralazine HCl (Hydralazine 20 Mg/1 Ml Inj) 10 mg IV Q6HR PRN PRN Reason: Hypertension Last Admin: 08/09/21 14:15 Dose: 10 mg Documented by: Hydrophilic Ointment (Lip Therapy Vaseline) 1 applic TP Q2HR PRN PRN Reason: Dry Lips Fentanyl Citrate (Fentanyl Drip Premix) 2,000 mcg in 100 mls @ 3.213 mls/hr IV TITR [facility]; Protocol Last Admin: 08/09/21 15:49 Dose: 1 mcg/kg/hr, 3.213 mls/hr Documented by: Propofol (Diprivan 10 Mg/Ml) 1,000 mg in 100 mls @ 1.928 mls/hr IV TITR [facility]; Protocol Last Admin: 08/09/21 15:49 Dose: 20 mcg/kg/min, 7.71 mls/hr Documented by: Sodium Chloride (Nacl 0.9%) 100 mls @ 999 mls/hr IV GLENDY PRN PRN Reason: Hypotension Sodium Chloride (Nacl 0.9%) 100 mls @ 999 mls/hr IV GLENDY PRN PRN Reason: Hypotension Amiodarone HCl 360 mg/ (Dextrose) 200 mls @ 33.333 mls/hr IV DIRECT [facility]OD[facility]; Protocol Last Admin: 08/09/21 20:27 Dose: 0.5 mg/min, 16.667 mls/hr Documented by: Isosorbide Dinitrate (Isosorbide Dinitrate 10 Mg Tab) 5 mg PO Q8HR [facility] Last Admin: 08/09/21 21:40 Dose: 5 mg Documented by: Losartan Potassium (Losartan 25 Mg Tab) 25 mg PO BID [facility] Last Admin: 08/09/21 21:40 Dose: 25 mg Documented by: Metoclopramide HCl (Metoclopramide 10 Mg/2 Ml Inj) 5 mg IV Q6H PRN PRN Reason: Nausea And Vomiting Metoprolol Tartrate (Metoprolol Tartrate 50 Mg Tab) 25 mg PO TID [facility] Last Admin: 08/09/21 21:40 Dose: 25 mg Documented by: Multi-Ingred Cream/Lotion/Oil/Oint (Mineral Oil/Petrolatum, White Ophth Oint 3.5 Gm) 1 applic OU Q4HR PRN PRN Reason: Dry Eye(s) Ondansetron HCl (Ondansetron 4 Mg/2 Ml Inj) 4 mg IV Q8H PRN PRN Reason: Nausea And Vomiting Oxycodone/Acetaminophen (Oxycodone /Acetaminophen 5-325mg Tab) 1 tab PO Q6H PRN PRN Reason: Pain, Moderate (4-6) Senna (Sennosides Oral Liqd 8.8 Mg/5 Ml Oral Liqd) 8.8 mg FEEDTUBE BID [facility] Last Admin: 08/09/21 21:40 Dose: 8.8 mg Documented by: Simple Syrup (Simple Syrup 15 Ml) 15 ml FEEDTUBE PRN PRN PRN Reason: Hypoglycemia Simple Syrup (Simple Syrup 15 Ml) 30 ml FEEDTUBE PRN PRN PRN Reason: Hypoglycemia Sodium Bicarbonate (Sodium Bicarbonate 325 Mg Tab) 325 mg FEEDTUBE PRN PRN PRN Reason: For Clogged Feeding Tube Sodium Chloride (Sodium Chloride 0.9% 10 Ml Flush Syringe) 10 ml IV BID [facility] Last Admin: 08/09/21 09:37 Dose: 10 ml Documented by: Sodium Chloride (Sodium Chloride 0.9% 10 Ml Flush Syringe) 10 ml IV PRN PRN PRN Reason: LINE FLUSH Objective Vital Signs - 12hr 08/09/21 08/09/21 08/09/21 12:00 13:00 14:00 Temperature 97.9 F Pulse Rate 70 70 70 Pulse Rate [ 70 From Monitor] Respiratory 12 16 15 Rate Blood Pressure 159/79 157/75 172/81 O2 Sat by Pulse 98 94 99 Oximetry 08/09/21 08/09/21 08/09/21 14:15 15:00 16:00 Temperature 98.1 F Pulse Rate 70 70 70 Pulse Rate [ 70 From Monitor] Respiratory 16 11 L Rate Blood Pressure 172/81 157/73 165/74 O2 Sat by Pulse 99 99 Oximetry 08/09/21 08/09/21 08/09/21 16:44 17:00 18:00 Temperature Pulse Rate 70 70 70 Pulse Rate [ From Monitor] Respiratory 22 12 Rate Blood Pressure 160/71 171/70 160/69 O2 Sat by Pulse 99 98 99 Oximetry 08/09/21 08/09/21 08/09/21 19:00 19:35 19:41 Temperature Pulse Rate 70 70 70 Pulse Rate [ From Monitor] Respiratory 12 Rate Blood Pressure 163/72 159/69 O2 Sat by Pulse 99 94 Oximetry 08/09/21 08/09/21 19:43 20:00 Temperature 100.1 F H Pulse Rate 70 Pulse Rate [ 70 From Monitor] Respiratory 12 12 Rate Blood Pressure 172/73 O2 Sat by Pulse 99 99 Oximetry Constitutional: other (intubated and sedated) Eyes: non-icteric ENT: other (orally intubated) Neck: supple Effort: normal Ascultation: Bilateral: clear Percussion: Bilateral: not dull Cardiovascular: regular rate and rhythm (no mrg) Gastrointestinal: normoactive bowel sounds, soft, non-tender, non-distended Integumentary: normal Extremities: no cyanosis, no edema, pink and warm Neurologic: unable to assess Psychiatric: other (unable to assess) CBC and BMP: 08/09/21 04:33 08/09/21 04:33 ABG, PT/INR, D-dimer: ABG ABG pH 7.427 pH Units (7.350-7.450) 08/09/21 04:30 POC ABG pCO2 40.5 mmHg (32.0-48.0) 08/08/21 09:45 ABG pCO2 41.2 mm Hg 08/09/21 04:30 POC ABG pO2 71.1 mmHg (83-108) L 08/08/21 09:45 ABG pO2 91.5 mm Hg (80.0-90.0) H 08/09/21 04:30 POC ABG HCO3 28.9 08/08/21 09:45 ABG O2 Saturation 97.1 % (95.0-99.0) 08/09/21 04:30 PT/INR, D-dimer PT 14.2 Sec. (12.2-14.9) 08/06/21 16:35 INR 0.99 (0.87-1.13) 08/06/21 16:35 Abnormal lab findings: Abnormal Labs 08/05/21 08/05/21 08/05/21 15:55 15:55 18:50 WBC 3.7 L RBC 2.98 L Hgb 7.5 L Hct 23.8 L MCH 25 L RDW 18.9 H Plt Count 134 L Lymph % (Auto) [place] % (Auto) Lymph # (Auto) Seg Neutrophils % Seg Neuts % (Manual) Lymphocytes % (Manual) Monocytes % (Manual) 18.0 H Eosinophils % (Manual) Basophils % (Manual) 2.0 H Seg Neutrophils # Seg Neutrophils # Man Lymphocytes # (Manual) 0.9 L APTT ABG pH 7.523 H POC ABG pO2 ABG pO2 47.1 L ABG HCO3 34.6 H ABG O2 Saturation 85.4 L ABG Base Excess 10.8 H ABG Hemoglobin 7.3 L ABG Sodium ABG Chloride ABG Glucose Oxyhemoglobin 83.6 L Sodium Potassium 2.7 L* Chloride 93.8 L Carbon Dioxide 33 H BUN Creatinine 2.8 H Glucose 124 H POC Glucose Calcium 8.2 L ALT < 5 L Troponin T 0.126 H* Total Protein Albumin 3.5 L Triglycerides 202 H HDL Cholesterol 32 L TSH Arterial Blood Glucose Crossmatch 08/05/21 08/05/21 08/06/21 18:56 Unknown 04:20 WBC RBC Hgb Hct MCH RDW Plt Count Lymph % (Auto) [place] % (Auto) Lymph # (Auto) Seg Neutrophils % Seg Neuts % (Manual) Lymphocytes % (Manual) Monocytes % (Manual) Eosinophils % (Manual) Basophils % (Manual) Seg Neutrophils # Seg Neutrophils # Man Lymphocytes # (Manual) APTT ABG pH 7.575 H 7.606 H* POC ABG pO2 ABG pO2 142.9 H 111.2 H ABG HCO3 33.2 H 33.6 H ABG O2 Saturation ABG Base Excess 10.4 H 11.2 H ABG Hemoglobin 6.6 L 6.8 L ABG Sodium ABG Chloride ABG Glucose Oxyhemoglobin Sodium Potassium Chloride Carbon Dioxide BUN Creatinine Glucose POC Glucose Calcium ALT Troponin T 0.183 H* D Total Protein Albumin Triglycerides HDL Cholesterol TSH Arterial Blood Glucose Crossmatch 08/06/21 08/06/21 08/06/21 04:29 04:29 04:29 WBC 2.5 L RBC 2.70 L Hgb 6.8 L Hct 21.3 L MCH 25 L RDW 18.1 H Plt Count 126 L Lymph % (Auto) 45.0 H [place] % (Auto) 13.6 H Lymph # (Auto) 1.1 L Seg Neutrophils % 37.3 L Seg Neuts % (Manual) Lymphocytes % (Manual) Monocytes % (Manual) Eosinophils % (Manual) Basophils % (Manual) Seg Neutrophils # 0.9 L Seg Neutrophils # Man Lymphocytes # (Manual) APTT 38.8 H ABG pH POC ABG pO2 ABG pO2 ABG HCO3 ABG O2 Saturation ABG Base Excess ABG Hemoglobin ABG Sodium ABG Chloride ABG Glucose Oxyhemoglobin Sodium 136 L Potassium 3.0 L Chloride 92.6 L Carbon Dioxide 32 H BUN Creatinine 3.8 H Glucose POC Glucose Calcium ALT Troponin T Total Protein 5.8 L Albumin 3.1 L Triglycerides HDL Cholesterol TSH Arterial Blood Glucose Crossmatch 08/06/21 08/06/21 08/06/21 05:30 07:26 07:26 WBC RBC Hgb 7.0 L Hct 22.5 L MCH RDW Plt Count 127 L Lymph % (Auto) [place] % (Auto) Lymph # (Auto) Seg Neutrophils % Seg Neuts % (Manual) Lymphocytes % (Manual) Monocytes % (Manual) Eosinophils % (Manual) Basophils % (Manual) Seg Neutrophils # Seg Neutrophils # Man Lymphocytes # (Manual) APTT 37.1 H ABG pH POC ABG pO2 ABG pO2 ABG HCO3 ABG O2 Saturation ABG Base Excess ABG Hemoglobin ABG Sodium ABG Chloride ABG Glucose Oxyhemoglobin Sodium Potassium Chloride Carbon Dioxide BUN Creatinine Glucose POC Glucose Calcium ALT Troponin T Total Protein Albumin Triglycerides HDL Cholesterol TSH Arterial Blood Glucose Crossmatch See Detail 08/06/21 08/06/21 08/06/21 08:06 14:50 16:03 WBC RBC Hgb Hct MCH RDW Plt Count Lymph % (Auto) [place] % (Auto) Lymph # (Auto) Seg Neutrophils % Seg Neuts % (Manual) Lymphocytes % (Manual) Monocytes % (Manual) Eosinophils % (Manual) Basophils % (Manual) Seg Neutrophils # Seg Neutrophils # Man Lymphocytes # (Manual) APTT ABG pH POC ABG pO2 ABG pO2 ABG HCO3 ABG O2 Saturation ABG Base Excess ABG Hemoglobin ABG Sodium ABG Chloride ABG Glucose Oxyhemoglobin Sodium Potassium 3.1 L Chloride 92.4 L Carbon Dioxide 33 H BUN Creatinine 3.9 H Glucose POC Glucose 59 L 121 H Calcium ALT Troponin T Total Protein Albumin Triglycerides HDL Cholesterol TSH Arterial Blood Glucose Crossmatch 08/06/21 08/06/21 08/06/21 16:35 16:35 17:31 WBC 4.2 L RBC 3.27 L Hgb 8.5 L Hct 26.8 L MCH 26 L RDW 18.7 H Plt Count 124 L Lymph % (Auto) [place] % (Auto) 15.5 H Lymph # (Auto) 0.8 L Seg Neutrophils % Seg Neuts % (Manual) Lymphocytes % (Manual) Monocytes % (Manual) Eosinophils % (Manual) Basophils % (Manual) Seg Neutrophils # Seg Neutrophils # Man Lymphocytes # (Manual) APTT ABG pH POC ABG pO2 ABG pO2 ABG HCO3 ABG O2 Saturation ABG Base Excess ABG Hemoglobin ABG Sodium ABG Chloride ABG Glucose Oxyhemoglobin Sodium 133 L Potassium Chloride 93.2 L Carbon Dioxide BUN 21 H Creatinine 4.6 H Glucose POC Glucose 62 L Calcium 8.3 L ALT Troponin T Total Protein 6.2 L Albumin 3.2 L Triglycerides HDL Cholesterol TSH Arterial Blood Glucose Crossmatch 08/06/21 08/06/21 08/07/21 18:14 18:22 04:00 WBC 1.0 L* RBC 2.67 L Hgb 7.0 L Hct 21.8 L MCH 26 L RDW 18.7 H Plt Count 82 L Lymph % (Auto) [place] % (Auto) Lymph # (Auto) Seg Neutrophils % Seg Neuts % (Manual) 16.0 L Lymphocytes % (Manual) 60.0 H Monocytes % (Manual) Eosinophils % (Manual) 11.0 H Basophils % (Manual) 4.0 H Seg Neutrophils # Seg Neutrophils # Man 0.2 L Lymphocytes # (Manual) 0.6 L APTT ABG pH 7.565 H POC ABG pO2 ABG pO2 113.3 H ABG HCO3 29.4 H ABG O2 Saturation ABG Base Excess 6.9 H ABG Hemoglobin 8.3 L ABG Sodium ABG Chloride ABG Glucose Oxyhemoglobin Sodium Potassium Chloride Carbon Dioxide BUN Creatinine Glucose POC Glucose 148 H Calcium ALT Troponin T Total Protein Albumin Triglycerides HDL Cholesterol TSH Arterial Blood Glucose Crossmatch 08/07/21 08/07/21 08/07/21 04:00 04:25 08:30 WBC RBC Hgb Hct MCH RDW Plt Count Lymph % (Auto) [place] % (Auto) Lymph # (Auto) Seg Neutrophils % Seg Neuts % (Manual) Lymphocytes % (Manual) Monocytes % (Manual) Eosinophils % (Manual) Basophils % (Manual) Seg Neutrophils # Seg Neutrophils # Man Lymphocytes # (Manual) APTT ABG pH 7.609 H* 7.479 H POC ABG pO2 ABG pO2 121.4 H 130.2 H ABG HCO3 28.5 H 30.3 H ABG O2 Saturation ABG Base Excess 7.2 H 6.2 H ABG Hemoglobin 10.7 L 8.1 L ABG Sodium ABG Chloride ABG Glucose Oxyhemoglobin Sodium 133 L Potassium 3.2 L D Chloride 93.9 L Carbon Dioxide BUN 23 H Creatinine 4.3 H Glucose POC Glucose Calcium 8.1 L ALT Troponin T Total Protein Albumin Triglycerides HDL Cholesterol TSH Arterial Blood Glucose Crossmatch 08/07/21 08/07/21 08/07/21 13:18 13:30 15:51 WBC RBC Hgb Hct MCH RDW Plt Count Lymph % (Auto) [place] % (Auto) Lymph # (Auto) Seg Neutrophils % Seg Neuts % (Manual) Lymphocytes % (Manual) Monocytes % (Manual) Eosinophils % (Manual) Basophils % (Manual) Seg Neutrophils # Seg Neutrophils # Man Lymphocytes # (Manual) APTT ABG pH POC ABG pO2 ABG pO2 ABG HCO3 ABG O2 Saturation ABG Base Excess ABG Hemoglobin ABG Sodium ABG Chloride ABG Glucose Oxyhemoglobin Sodium Potassium Chloride Carbon Dioxide BUN Creatinine Glucose POC Glucose 67 L 58 L Calcium ALT Troponin T Total Protein Albumin Triglycerides HDL Cholesterol TSH 7.070 H Arterial Blood Glucose Crossmatch 08/08/21 08/08/21 08/08/21 04:19 04:26 04:26 WBC RBC Hgb 6.8 L Hct 21.6 L MCH RDW Plt Count 91 L Lymph % (Auto) [place] % (Auto) Lymph # (Auto) Seg Neutrophils % Seg Neuts % (Manual) Lymphocytes % (Manual) Monocytes % (Manual) Eosinophils % (Manual) Basophils % (Manual) Seg Neutrophils # Seg Neutrophils # Man Lymphocytes # (Manual) APTT ABG pH 7.545 H POC ABG pO2 ABG pO2 136.1 H ABG HCO3 27.3 H ABG O2 Saturation ABG Base Excess 4.5 H ABG Hemoglobin 6.9 L ABG Sodium ABG Chloride ABG Glucose Oxyhemoglobin Sodium 132 L Potassium Chloride 93.5 L Carbon Dioxide BUN Creatinine 3.7 H Glucose POC Glucose Calcium ALT Troponin T Total Protein Albumin Triglycerides HDL Cholesterol TSH Arterial Blood Glucose Crossmatch 08/08/21 08/08/21 08/08/21 09:45 12:23 18:51 WBC RBC Hgb Hct MCH RDW Plt Count Lymph % (Auto) [place] % (Auto) Lymph # (Auto) Seg Neutrophils % Seg Neuts % (Manual) Lymphocytes % (Manual) Monocytes % (Manual) Eosinophils % (Manual) Basophils % (Manual) Seg Neutrophils # Seg Neutrophils # Man Lymphocytes # (Manual) APTT ABG pH 7.471 H POC ABG pO2 71.1 L ABG pO2 ABG HCO3 ABG O2 Saturation ABG Base Excess ABG Hemoglobin ABG Sodium 128.9 L ABG Chloride 95.0 L ABG Glucose 64 L Oxyhemoglobin Sodium Potassium Chloride Carbon Dioxide BUN Creatinine Glucose POC Glucose 58 L 68 L Calcium ALT Troponin T Total Protein Albumin Triglycerides HDL Cholesterol TSH Arterial Blood Glucose 64 L Crossmatch 08/09/21 08/09/21 08/09/21 04:30 04:33 04:33 WBC 2.4 L RBC 3.16 L Hgb 8.3 L Hct 26.5 L MCH 26 L RDW 18.3 H Plt Count 113 L Lymph % (Auto) [place] % (Auto) Lymph # (Auto) Seg Neutrophils % Seg Neuts % (Manual) Lymphocytes % (Manual) Monocytes % (Manual) Eosinophils % (Manual) Basophils % (Manual) Seg Neutrophils # Seg Neutrophils # Man Lymphocytes # (Manual) APTT ABG pH POC ABG pO2 ABG pO2 91.5 H ABG HCO3 26.6 H ABG O2 Saturation ABG Base Excess ABG Hemoglobin 9.0 L ABG Sodium ABG Chloride ABG Glucose Oxyhemoglobin Sodium 129 L Potassium Chloride 91.9 L Carbon Dioxide BUN 22 H Creatinine 4.7 H Glucose POC Glucose Calcium ALT Troponin T Total Protein Albumin Triglycerides HDL Cholesterol TSH Arterial Blood Glucose Crossmatch Chest x-ray: report reviewed, image reviewed
--- NOTE | 2021-08-10 03:05 | XRay Report ---
CHEST 1 VIEW INDICATION / CLINICAL INFORMATION: follow up respiratory failure. COMPARISON: 08/09/2021 FINDINGS: SUPPORT DEVICES: Stable, satisfactory device positioning. HEART / MEDIASTINUM: Stable mild cardiomegaly. LUNGS / PLEURA: Right lower lobe pleural-parenchymal disease is unchanged. Left basilar pulmonary opa cities are stable. Upper lung her are clear bilaterally. No pneumothorax. ADDITIONAL FINDINGS: No significant additional findings. IMPRESSION: 1. Stable appearance of bilateral pulmonary opacities. Signer Name: Angely Gleason MD Signed: 08/10/2021 3:00 AM Workstation Name: [id number]
[2021-08-10] MEDS: ISOSORBIDE DINITRATE 10 MG TAB PO SCH ×3 (05:20→21:30)
[2021-08-10] MEDS: AMIODARONE 360 MG in DEXTROSE 5% IN WATER 192.8 ML IV SCH ×2 (07:28→19:16)
[2021-08-10 07:30] LABS: Hematocrit 27.6 % (30.3-42.9); Hemoglobin 8.9 gm/dl (10.1-14.3); Mean Corpuscular HGB Conc 32 % (30-34); Mean Corpuscular Volume 83 fl (79-97); Platelet Count 153 K/mm3 (140-440); Red Blood Count 3.32 M/mm3 (3.65-5.03); Red Cell Distribution Width 18.3 % (13.2-15.2)
[2021-08-10] MEDS: METOPROLOL TARTRATE 50 MG TAB PO SCH ×3 (07:52→21:30)
[2021-08-10] MEDS: hydrALAZINE 20 MG/1 ML INJ IV PRN (08:03)
[2021-08-10] MEDS: SENNOSIDES ORAL LIQD 8.8 MG/5 ML ORAL LIQD FEEDTUBE SCH ×2 (09:52→21:30)
[2021-08-10] MEDS: fentaNYL 100 MCG/2 ML INJ IV PRN (10:06)
[2021-08-10] MEDS: LOSARTAN 25 MG TAB PO SCH ×2 (10:06→21:29)
[2021-08-10] MEDS: FAMOTIDINE 10 MG TAB PO SCH ×2 (10:07→21:31)
[2021-08-10] MEDS: ASPIRIN 81 MG TAB CHEW PO SCH (12:22)
[2021-08-10] MEDS: CLOPIDOGREL 75 MG TAB PO SCH (12:23)
[2021-08-10] MEDS ORDERED: ISOSORBIDE DINITRATE 20 MG TAB PO ONE (12:55)
[2021-08-10] MEDS ORDERED: hydrALAZINE 20 MG/1 ML INJ IV ONE (12:58)
[2021-08-10] MEDS ORDERED: SODIUM CHLORIDE 0.9% 100 ML IV PRN (13:01)
--- NOTE | 2021-08-10 13:02 | Progress Note ---
Assessment and Plan - Patient Problems (1) Hypokalemia Current Visit: Yes Status: Acute Plan to address problem: levels stable this morning. We will continue to monitor and replete per protocol. (2) Sustained ventricular tachycardia Current Visit: Yes Status: Acute Plan to address problem: intubated, sedated, and has received lidocaine Per cardiology recommendations. Pending transfer to [place] at this time. (3) Anemia Current Visit: Yes Status: Chronic Qualifiers: Anemia type: due to chronic kidney disease Plan to address problem: JANETH therapy with hemodialysis (4) End stage renal disease on dialysis Current Visit: Yes Status: Chronic Plan to address problem: continue on current Thursday, Thursday, Thursday inpatient hemodialysis schedule. (5) Diabetes Current Visit: No Status: Acute Plan to address problem: diabetes management per primary attending. Subjective Date of service: 08/10/21 Principal diagnosis: Recurrent VT Interval history: No acute changes, pending transfer to [place]. Received HD at bedside, tolerated well. Objective - Vital Signs Vital signs: Vital Signs - 12hr 08/10/21 08/10/21 08/10/21 01:00 02:00 03:00 Temperature Pulse Rate 70 70 70 Pulse Rate [ From Monitor] Respiratory 12 12 12 Rate Blood Pressure 160/76 136/66 166/80 O2 Sat by Pulse 96 95 98 Oximetry O2 Sat by Pulse Oximetry [ Anterior Bilateral] O2 Sat by Pulse Oximetry [ Bases] O2 Sat by Pulse Oximetry [ Bilateral Bases ] O2 Sat by Pulse Oximetry [ Bilateral Throughout] 08/10/21 08/10/21 08/10/21 03:30 04:00 04:25 Temperature 100.3 F H Pulse Rate 70 70 Pulse Rate [ 70 From Monitor] Respiratory 12 Rate Blood Pressure 161/80 161/80 O2 Sat by Pulse 99 99 Oximetry O2 Sat by Pulse Oximetry [ Anterior Bilateral] O2 Sat by Pulse Oximetry [ Bases] O2 Sat by Pulse Oximetry [ Bilateral Bases ] O2 Sat by Pulse Oximetry [ Bilateral Throughout] 08/10/21 08/10/21 08/10/21 05:00 06:00 07:00 Temperature Pulse Rate 70 70 70 Pulse Rate [ From Monitor] Respiratory 14 12 13 Rate Blood Pressure 155/74 159/75 184/82 O2 Sat by Pulse 99 99 Oximetry O2 Sat by Pulse Oximetry [ Anterior Bilateral] O2 Sat by Pulse Oximetry [ Bases] O2 Sat by Pulse Oximetry [ Bilateral Bases ] O2 Sat by Pulse Oximetry [ Bilateral Throughout] 08/10/21 08/10/21 08/10/21 07:52 08:00 08:01 Temperature 98.1 F Pulse Rate 70 70 70 Pulse Rate [ 70 From Monitor] Respiratory 14 14 Rate Blood Pressure 180/85 188/80 O2 Sat by Pulse 98 98 Oximetry O2 Sat by Pulse Oximetry [ Anterior Bilateral] O2 Sat by Pulse Oximetry [ Bases] O2 Sat by Pulse Oximetry [ Bilateral Bases ] O2 Sat by Pulse Oximetry [ Bilateral Throughout] 08/10/21 08/10/21 08/10/21 08:03 08:46 09:00 Temperature 98.0 F Pulse Rate 70 70 70 Pulse Rate [ From Monitor] Respiratory 15 Rate Blood Pressure 188/80 173/75 182/75 O2 Sat by Pulse 100 98 Oximetry O2 Sat by Pulse 99 Oximetry [ Anterior Bilateral] O2 Sat by Pulse 99 Oximetry [ Bases] O2 Sat by Pulse 99 Oximetry [ Bilateral Bases ] O2 Sat by Pulse 99 Oximetry [ Bilateral Throughout] 08/10/21 08/10/21 08/10/21 09:30 09:45 10:00 Temperature Pulse Rate 70 70 70 Pulse Rate [ From Monitor] Respiratory 12 Rate Blood Pressure 182/75 189/75 195/83 O2 Sat by Pulse 98 Oximetry O2 Sat by Pulse Oximetry [ Anterior Bilateral] O2 Sat by Pulse Oximetry [ Bases] O2 Sat by Pulse Oximetry [ Bilateral Bases ] O2 Sat by Pulse Oximetry [ Bilateral Throughout] 08/10/21 08/10/21 08/10/21 10:06 10:15 10:32 Temperature Pulse Rate 70 70 70 Pulse Rate [ From Monitor] Respiratory Rate Blood Pressure 195/83 202/85 191/80 O2 Sat by Pulse Oximetry O2 Sat by Pulse Oximetry [ Anterior Bilateral] O2 Sat by Pulse Oximetry [ Bases] O2 Sat by Pulse Oximetry [ Bilateral Bases ] O2 Sat by Pulse Oximetry [ Bilateral Throughout] 08/10/21 08/10/21 08/10/21 10:45 11:00 11:15 Temperature Pulse Rate 70 70 70 Pulse Rate [ From Monitor] Respiratory 11 L Rate Blood Pressure 196/79 204/81 186/78 O2 Sat by Pulse 99 Oximetry O2 Sat by Pulse Oximetry [ Anterior Bilateral] O2 Sat by Pulse Oximetry [ Bases] O2 Sat by Pulse Oximetry [ Bilateral Bases ] O2 Sat by Pulse Oximetry [ Bilateral Throughout] 08/10/21 08/10/21 08/10/21 11:30 11:45 12:00 Temperature 97.9 F Pulse Rate 70 70 70 Pulse Rate [ 70 From Monitor] Respiratory 12 Rate Blood Pressure 190/79 193/79 187/77 O2 Sat by Pulse 100 Oximetry O2 Sat by Pulse Oximetry [ Anterior Bilateral] O2 Sat by Pulse Oximetry [ Bases] O2 Sat by Pulse Oximetry [ Bilateral Bases ] O2 Sat by Pulse Oximetry [ Bilateral Throughout] 08/10/21 08/10/21 08/10/21 12:15 12:30 12:36 Temperature Pulse Rate 70 70 70 Pulse Rate [ From Monitor] Respiratory Rate Blood Pressure 195/82 193/81 193/81 O2 Sat by Pulse 99 Oximetry O2 Sat by Pulse Oximetry [ Anterior Bilateral] O2 Sat by Pulse Oximetry [ Bases] O2 Sat by Pulse Oximetry [ Bilateral Bases ] O2 Sat by Pulse Oximetry [ Bilateral Throughout] - General Appearance General appearance: chronically ill, intubated, frail EENT: ATNC Neck: no JVD Respiratory: Present: Decreased Breath Sounds Cardiology: regular Gastrointestinal: normal Integumentary: warm and dry Musculoskeletal: deferred Psychiatric: cooperative - Lab 08/10/21 04:00 08/10/21 04:00 Most recent lab results ABG pH 7.402 (7.320-7.450) 08/10/21 04:55 ABG pCO2 41.2 mm Hg 08/09/21 04:30 ABG pO2 91.5 mm Hg (80.0-90.0) H 08/09/21 04:30 ABG HCO3 26.6 mmol/L (20.0-26.0) H 08/09/21 04:30 ABG O2 Saturation 96.0 (0-100) 08/10/21 04:55 Calcium 9.0 mg/dL (8.4-10.2) 08/10/21 04:00 Phosphorus 5.90 mg/dL (2.5-4.5) H 08/10/21 04:00 Magnesium 1.90 mg/dL (1.7-2.3) 08/10/21 04:00 - Allied health notes Allied health notes reviewed: nursing Medications & Allergies - Medications Allergies/Adverse Reactions: Allergies No Known Allergies Allergy (Unverified 07/10/21 20:57) Home Medications: Home Medications Medication Instructions Recorded Confirmed Last Taken Type Icosapent Ethyl [Vascepa] 2 gm PO BID 07/12/21 07/12/21 Unknown History Losartan [Cozaar] 25 mg PO BID 07/12/21 07/12/21 Unknown History ALBUTEROL NEB's [Proventil 0.083% 2.5 mg IH Q4HRT PRN nebu 07/15/21 Unknown Rx NEBS] Acetaminophen [Acetaminophen 650 mg TX Q4H PRN supp.rect 07/15/21 Unknown Rx SUPPOS] Acetaminophen [Acetaminophen TAB] 650 mg PO Q4H PRN tablet 07/15/21 Unknown Rx Amiodarone [Cordarone 200 MG TAB] 200 mg PO BID tablet 07/15/21 Unknown Rx AtorvaSTATin [Lipitor] 80 mg PO QHS tablet 07/15/21 Unknown Rx Clopidogrel [Plavix] 75 mg PO QDAY tablet 07/15/21 Unknown Rx Dextrose 50% in Water [D50W (25GM) 50 ml IV Q30MIN PRN syringe 07/15/21 Unknown Rx Syringe] Free Water 60 ml PO Q4HR oral.liqd 07/15/21 Unknown Rx Isosorbide Dinitrate [Isordil] 5 mg PO Q8HR tablet 07/15/21 Unknown Rx Lipase/Protease/Amylase [Pancreaze 1 each FEEDTUBE PRN PRN capsule 07/15/[address] 10,500 Unit] Lispro Insulin [HumaLOG] 0 unit SUB-Q Q6HR units 07/15/21 Unknown Rx Metoprolol [Lopressor TAB] 25 mg PO TID tablet 07/15/21 Unknown Rx Simple Syrup 30 ml FEEDTUBE PRN PRN oral.liqd 07/15/21 Unknown Rx hydrALAZINE [Apresoline INJ] 10 mg IV Q6H PRN vial 07/15/21 Unknown Rx Active Medications: Generic Name Dose Route Start Last Admin Trade Name Freq PRN Reason Stop Dose Admin Acetaminophen 650 mg 08/06/21 16:30 08/06/21 16:30 Acetaminophen 650 Mg Rect Supp [place] 650 mg Q6H PRN Administration Pain, Mild (1-3) Albuterol 2.5 mg 08/05/21 20:59 Albuterol 2.5 Mg/3 Ml Nebu IH Q4HRT PRN Shortness Of Breath Lipase/Protease/Amylase 1 each 08/07/21 09:47 Lipase 10,500/Protease 25,000/Amylase 43,750 (Units) Dr Cap FEEDTUBE PRN PRN For Clogged Feeding Tube Aspirin 81 mg 08/07/21 10:00 08/10/21 12:22 Aspirin 81 Mg Tab Chew PO Not Given QDAY JODI Atorvastatin Calcium 80 mg 08/05/21 22:00 08/09/21 21:40 Atorvastatin 40 Mg Tab PO 80 mg QHS JODI Administration Clopidogrel Bisulfate 75 mg 08/10/21 10:00 08/10/21 12:23 Clopidogrel 75 Mg Tab PO Not Given QDAY JODI Dextrose 25 ml 08/06/21 15:08 08/09/21 05:26 Dextrose 50% In Water (25gm) 50 Ml Syringe IV 15 ml Q30MIN PRN Administration Hypoglycemia Protocol Famotidine 10 mg 08/09/21 22:00 08/10/21 10:07 Famotidine 10 Mg Tab PO 10 mg BID JODI Administration Fentanyl 50 mcg 08/05/21 17:25 08/10/21 10:06 Fentanyl 100 Mcg/2 Ml Inj IV 50 mcg Q10MIN PRN Administration ANALGESIA Hydralazine HCl 10 mg 08/06/21 04:21 08/10/21 08:03 Hydralazine 20 Mg/1 Ml Inj IV 10 mg Q6HR PRN Administration Hypertension Hydrophilic Ointment 1 applic 08/05/21 17:25 Lip Therapy Vaseline TP Q2HR PRN Dry Lips Fentanyl Citrate 2,000 mcg in 100 mls @ 3.213 mls/hr 08/05/21 18:00 08/10/21 05:44 Fentanyl Drip Premix IV 0 mcg/kg/hr TITR JODI 0 mls/hr Titration Protocol 1 MCG/KG/HR Propofol 1,000 mg in 100 mls @ 1.928 mls/hr 08/06/21 17:00 08/10/21 11:33 Diprivan 10 Mg/Ml IV 15 mcg/kg/min TITR JODI 5.783 mls/hr Titration Protocol 5 MCG/KG/MIN Sodium Chloride 100 mls @ 999 mls/hr 08/06/21 23:18 Nacl 0.9% IV GLENDY PRN Hypotension Sodium Chloride 100 mls @ 999 mls/hr 08/09/21 18:42 Nacl 0.9% IV GLENDY PRN Hypotension Amiodarone HCl 360 mg/ 200 mls @ 33.333 mls/hr 08/09/21 19:00 08/10/21 07:28 Dextrose IV 0.5 mg/min DIRECT JODI 16.667 mls/hr Administration Protocol 1 MG/MIN Isosorbide Dinitrate 10 mg 08/10/21 14:00 Isosorbide Dinitrate 10 Mg Tab PO Q8HR [facility] Isosorbide Dinitrate 5 mg 08/10/21 12:55 Isosorbide Dinitrate 20 Mg Tab PO 08/10/21 12:56 ONCE ONE Losartan Potassium 25 mg 08/05/21 22:00 08/10/21 10:06 Losartan 25 Mg Tab PO 25 mg BID [facility] Administration Metoclopramide HCl 5 mg 08/05/21 21:03 Metoclopramide 10 Mg/2 Ml Inj IV Q6H PRN Nausea And Vomiting Metoprolol Tartrate 25 mg 08/06/21 08:00 08/10/21 07:52 Metoprolol Tartrate 50 Mg Tab PO 25 mg TID [facility] Administration Multi-Ingred Cream/Lotion/Oil/Oint 1 applic 08/05/21 17:25 Mineral Oil/Petrolatum, White Ophth Oint 3.5 Gm OU Q4HR PRN Dry Eye(s) Ondansetron HCl 4 mg 08/05/21 21:03 Ondansetron 4 Mg/2 Ml Inj IV Q8H PRN Nausea And Vomiting Oxycodone/Acetaminophen 1 tab 08/05/21 21:03 Oxycodone /Acetaminophen 5-325mg Tab PO Q6H PRN Pain, Moderate (4-6) Senna 8.8 mg 08/07/21 13:00 08/10/21 09:52 Sennosides Oral Liqd 8.8 Mg/5 Ml Oral Liqd FEEDTUBE Not Given BID JODI Simple Syrup 15 ml 08/07/21 09:47 Simple Syrup 15 Ml FEEDTUBE PRN PRN Hypoglycemia Simple Syrup 30 ml 08/07/21 09:47 Simple Syrup 15 Ml FEEDTUBE PRN PRN Hypoglycemia Sodium Bicarbonate 325 mg 08/07/21 09:47 Sodium Bicarbonate 325 Mg Tab FEEDTUBE PRN PRN For Clogged Feeding Tube Sodium Chloride 10 ml 08/05/21 22:00 08/10/21 10:07 Sodium Chloride 0.9% 10 Ml Flush Syringe IV 10 ml BID JODI Administration Sodium Chloride 10 ml 08/05/21 21:03 Sodium Chloride 0.9% 10 Ml Flush Syringe IV PRN PRN LINE FLUSH
[2021-08-10 14:56] LABS: Total Cells Counted 100
[2021-08-10 14:57] LABS: Band Neutrophils # (Manual) 0.1 K/mm3
[2021-08-10 14:58] LABS: Hypochromasia 2+; Platelet Estimate Consistent w Auto
--- NOTE | 2021-08-10 15:21 | Progress Note ---
Assessment and Plan Assessment and plan: This is 60-year-old female with ESRD on HD, recurrent AICD discharges, V. tach, cardiac arrest, anemia of chronic disease, CAD, systolic HF and HTN admitted for V. tach and severe hypokalemia Neuro: Sedated -Sedated with fentanyl and propofol -RASS goal -1 to -2 -Avoid delirium -Reorientation as needed -SAT/SBT when appropriate CV: Recurrent V. tach, NSTEMI, h/o s/p AICD implantation, systolic heart failure, V. tach, HTN -Cardiology consulted, appreciate recommendations -S/p lidocaine and Cardene drip -restarted cardene gtt today d/t persistent hypertension -Restarted home p.o. antihypertensive regimen -adjust as needed -Amiodarone drip -Awaiting transfer to [place] -Continue Lipitor Respiratory: Intubated for airway protection -CCM consulted, appreciate recommendations -Intubated in the ED on 08/05 with a 6.50 ETT at 21 at the lips -A.m. vent settings assist-control rate 12, tidal volume 375, PEEP 6, FiO2 25% -See RT notes for titration -A.m. ABG and CXR noted -VAP bundle -SPO2 monitoring GI: NAD -Nutrition consult for tube feeding -Start TF -24 hours +1707 mL -HD removal of 1L 08/10/2021 -PPI -BR: Senokot : ESRD on HD, hyponatremia, hypochloremia, Hyperkalemia hyperphosphatemia -Nephrology consulted, appreciate recommendations -HD per nephrology -Avoid nephrotoxic medications -Renally dose medications -Strict intake and output -Received HD 08/10/2021 -We will recheck BMP ID: Leukopenia -Monitor WBC and fever curve -Follow-up blood culture x2 and sputum culture -NGTD Heme: Thrombocytopenia (resolving), acute on chronic anemia of chronic disease, leukopenia -S/p 2 unit PRBC -Noted to have bloody drainage from mouth and nose -Trend CBC -Transfuse for hemoglobin less than 7 -Epogen per nephrology -Resume DAPT per cards in setting of recent stent -SCDs to bilateral LE while in bed Endo: Hypoglycemia (resolved) -S/p D10 for hypoglycemia -Avoid hypoglycemia -Accu-Cheks every 4 Critical care statement The high probability of a clinically significant sudden or life-threatening deterioration of the [cardiorespiratory system] and endocrine system required my full and direct attention, intervention and postoperative management. The aggregate critical care time was [60] minutes. The time is in addition to time spent performing reported procedures but includes the following: [x] 1: Data review and interpretation [x] 2: Patient assessment and monitoring of vital signs [x] 3: Documentation [x] 4: Medication orders and management Disposition Plan: icu Total Time Spent with Patient (Minutes): 60 History Interval history: This is 60-year-old female with ESRD on HD, recurrent AICD discharges, systolic heart failure, V. tach, cardiac arrest, anemia, CAD and HTN who presents to the emergency department from her dialysis center on 08/05 for severe muscle spasms secondary to AICD discharges per patient. She also had questionable seizures in the dialysis center. Patient was started on amiodarone and lidocaine. Patient was intubated for airway protection in the emergency department and work-up also revealed severe hypokalemia. Patient was admitted to the hospital service with consult cardiology, nephrology and CCM. 08/06/2021: Patient is sedated, Transfer to [place] arranged 08/07: COVID-19 PCR negative. Patient received hemodialysis today. Off Cardene drip. Patient has been OG tube for p.o. BP medications. Thrombocytopenia persists therefore anticoagulation is held. Patient is leukopenia also. We will continue to trend CBC. Persistent hypoglycemia and D10 drip increased to 30 ml/hr. negative Covid test relayed to [place]. 08/08: 1 unit prbc today, will start TF today. Still awaiting [place] bed. 08/09: awaiting transfer to [place]. TF nearly at goal so anticipate stopping dextrose IVF soon. Midline to be placed 08/10/2021: Relieved HD today. BP remains elevated therefore started on cardene gtt. Cardiology aware. No beds available yet. Hospitalist Physical - Physical exam Narrative exam: - EENT Eyes: Present: PERRL, EOM intact ENT: hearing intact, clear oral mucosa - Neck Neck: Present: normal ROM - Respiratory Respiratory effort: normal Respiratory: bilateral: diminished - Cardiovascular Rhythm: regular Heart Sounds: Present: S1 & S2. Absent: systolic murmur, diastolic murmur - Extremities Extremities: no ischemia, pulses intact, pulses symmetrical, No edema, normal t emperature, normal color Peripheral Pulses: within normal limits - Abdominal General gastrointestinal: soft, non-tender, non-distended, normal bowel sounds - Integumentary Integumentary: Present: warm, dry - Psychiatric Psychiatric: other (sedated) - Neurologic Neurologic: other (sedated) - Allied Health Allied health notes reviewed: nursing, RT, social work - Constitutional Vitals: Temp Pulse Resp BP Pulse Ox 98.0 F 70 14 175/74 99 08/10/21 13:00 08/10/21 14:00 08/10/21 14:00 08/10/21 14:00 08/10/21 14:00 General appearance: Present: no acute distress, well-nourished HEART Score - HEART Score Age: 45-65 Risk factors: > 3 risk factors or hx of atherosclerotic disease Troponin: Troponin T 0.183 ng/mL (0.00-0.029) H* D 08/05/21 18:56 Troponin: 1-3x normal limit - Critical Actions Critical Actions: 4-6 pts:12-16.6% risk of adverse cardiac event. Should be admitted Results - Labs CBC & Chem 7: 08/10/21 04:00 08/10/21 04:00 Labs: Laboratory Last Values WBC 3.3 K/mm3 (4.5-11.0) L 08/10/21 04:00 RBC 3.32 M/mm3 (3.65-5.03) L 08/10/21 04:00 Hgb 8.9 gm/dl (10.1-14.3) L 08/10/21 04:00 Hct 27.6 % (30.3-42.9) L 08/10/21 04:00 MCV 83 fl (79-97) 08/10/21 04:00 MCH 27 pg (28-32) L 08/10/21 04:00 MCHC 32 % (30-34) 08/10/21 04:00 RDW 18.3 % (13.2-15.2) H 08/10/21 04:00 Plt Count 153 K/mm3 (140-440) 08/10/21 04:00 Lymph % (Auto) Optical Instrument Assembler 08/07/21 04:00 [place]field % (Auto) Optical Instrument Assembler 08/10/21 04:00 Eos % (Auto) 2.2 % (0.0-4.3) 08/06/21 16:35 Baso % (Auto) Optical Instrument Assembler 08/07/21 04:00 Lymph # (Auto) 0.8 K/mm3 (1.2-5.4) L 08/06/21 16:35 Whitfield # (Auto) 0.7 K/mm3 (0.0-0.8) 08/06/21 16:35 Eos # (Auto) 0.1 K/mm3 (0.0-0.4) 08/06/21 16:35 Baso # (Auto) 0.1 K/mm3 (0.0-0.1) 08/06/21 16:35 Add Manual Diff Complete 08/10/21 04:00 Total Counted 100 08/10/21 04:00 Seg Neutrophils % Optical Instrument Assembler 08/07/21 04:00 Seg Neuts % (Manual) 69.0 % (40.0-70.0) 08/10/21 04:00 Band Neutrophils % 3.0 % 08/10/21 04:00 Lymphocytes % (Manual) 18.0 % (13.4-35.0) 08/10/21 04:00 Reactive Lymphs % (Man) 5.0 % 08/07/21 04:00 Monocytes % (Manual) 9.0 % (0.0-7.3) H 08/10/21 04:00 Eosinophils % (Manual) 1.0 % (0.0-4.3) 08/10/21 04:00 Basophils % (Manual) 4.0 % (0.0-1.8) H 08/07/21 04:00 Metamyelocytes % 4.0 % 08/07/21 04:00 Nucleated RBC % Not Reportable 08/10/21 04:00 Seg Neutrophils # 2.6 K/mm3 (1.8-7.7) 08/06/21 16:35 Seg Neutrophils # Man 2.3 K/mm3 (1.8-7.7) 08/10/21 04:00 Band Neutrophils # 0.1 K/mm3 08/10/21 04:00 Lymphocytes # (Manual) 0.6 K/mm3 (1.2-5.4) L 08/10/21 04:00 Abs React Lymphs (Man) 0.0 K/mm3 08/10/21 04:00 Monocytes # (Manual) 0.3 K/mm3 (0.0-0.8) 08/10/21 04:00 Eosinophils # (Manual) 0.0 K/mm3 (0.0-0.4) 08/10/21 04:00 Basophils # (Manual) 0.0 K/mm3 (0.0-0.1) 08/10/21 04:00 Metamyelocytes # 0.0 K/mm3 08/10/21 04:00 Myelocytes # 0.0 K/mm3 08/10/21 04:00 Promyelocytes # 0.0 K/mm3 08/10/21 04:00 Blast Cells # 0.0 K/mm3 08/10/21 04:00 WBC Morphology Not Reportable 08/10/21 04:00 Hypersegmented Neuts Not Reportable 08/10/21 04:00 Hyposegmented Neuts Not Reportable 08/10/21 04:00 Hypogranular Neuts Not Reportable 08/10/21 04:00 Smudge Cells Not Reportable 08/10/21 04:00 Toxic Granulation Not Reportable 08/10/21 04:00 Toxic Vacuolation Not Reportable 08/10/21 04:00 Dohle Bodies Not Reportable 08/10/21 04:00 Pelger-Huet Anomaly Not Reportable 08/10/21 04:00 Claudio Rods Not Reportable 08/10/21 04:00 Platelet Estimate Consistent w auto 08/10/21 04:00 Clumped Platelets Not Reportable 08/10/21 04:00 Plt Clumps, EDTA Not Reportable 08/10/21 04:00 Large Platelets Not Reportable 08/10/21 04:00 Giant Platelets Not Reportable 08/10/21 04:00 Platelet Satelliting Not Reportable 08/10/21 04:00 Plt Morphology Comment Not Reportable 08/10/21 04:00 RBC Morphology Not Reportable 08/10/21 04:00 Dimorphic RBCs Not Reportable 08/10/21 04:00 Polychromasia Not Reportable 08/10/21 04:00 Hypochromasia 2+ 08/10/21 04:00 Poikilocytosis Not Reportable 08/10/21 04:00 Anisocytosis Not Reportable 08/10/21 04:00 Microcytosis Not Reportable 08/10/21 04:00 Macrocytosis Not Reportable 08/10/21 04:00 Spherocytes Not Reportable 08/10/21 04:00 Pappenheimer Bodies Not Reportable 08/10/21 04:00 Sickle Cells Not Reportable 08/10/21 04:00 Target Cells Not Reportable 08/10/21 04:00 Tear Drop Cells Not Reportable 08/10/21 04:00 Ovalocytes Not Reportable 08/10/21 04:00 Helmet Cells Not Reportable 08/10/21 04:00 Diaz-[place] Bodies Not Reportable 08/10/21 04:00 Stilwell Rings Not Reportable 08/10/21 04:00 Lincoln Cells Not Reportable 08/10/21 04:00 Bite Cells Not Reportable 08/10/21 04:00 Crenated Cell Not Reportable 08/10/21 04:00 Elliptocytes Not Reportable 08/10/21 04:00 Acanthocytes (Spur) Not Reportable 08/10/21 04:00 Rouleaux Not Reportable 08/10/21 04:00 Hemoglobin C Crystals Not Reportable 08/10/21 04:00 Schistocytes Not Reportable 08/10/21 04:00 Malaria parasites Not Reportable 08/10/21 04:00 Aleks Bodies Not Reportable 08/10/21 04:00 Hem Pathologist Commnt No 08/10/21 04:00 PT 14.2 Sec. (12.2-14.9) 08/06/21 16:35 INR 0.99 (0.87-1.13) 08/06/21 16:35 APTT 37.1 Sec. (24.2-36.6) H 08/06/21 07:26 ABG pH 7.402 (7.320-7.450) 08/10/21 04:55 POC ABG pCO2 37.9 mmHg (32.0-48.0) 08/10/21 04:55 ABG pCO2 41.2 mm Hg 08/09/21 04:30 POC ABG pO2 83.4 mmHg (83-108) 08/10/21 04:55 ABG pO2 91.5 mm Hg (80.0-90.0) H 08/09/21 04:30 POC ABG HCO3 23.1 08/10/21 04:55 ABG HCO3 26.6 mmol/L (20.0-26.0) H 08/09/21 04:30 ABG O2 Saturation 96.0 (0-100) 08/10/21 04:55 ABG O2 Content 12.3 (0.0-44) 08/09/21 04:30 POC ABG Base Excess -1.5 08/10/21 04:55 ABG Base Excess 2.0 mmol/L (-2.0-3.0) 08/09/21 04:30 ABG Hemoglobin 9.6 (12.0-17.5) L 08/10/21 04:55 ABG Oxyhemoglobin 95.3 (94-98) 08/10/21 04:55 ABG Carboxyhemoglobin 1.4 % (0.0-5.0) 08/09/21 04:30 ABG Methemoglobin 0.3 (0.0-1.5) 08/10/21 04:55 ABG Sodium 120.3 mmol/L (136.0-145.0) L 08/10/21 04:55 ABG Potassium 5.2 mmol/L (3.40-4.50) H 08/10/21 04:55 ABG Chloride 88.0 mmol/L (98-107) L 08/10/21 04:55 ABG Glucose 85 mg/dL (65-95) 08/10/21 04:55 Oxyhemoglobin 95.4 % (95.0-99.0) 08/09/21 04:30 Carboxyhemoglobin 0.4 (0.5-1.5) L 08/10/21 04:55 FiO2 25 % 08/09/21 04:30 FiO2 % 25.0 08/10/21 04:55 Sodium 123 mmol/L (137-145) L 08/10/21 04:00 Potassium 5.5 mmol/L (3.6-5.0) H D 08/10/21 04:00 Chloride 84.8 mmol/L (98-107) L 08/10/21 04:00 Carbon Dioxide 23 mmol/L (22-30) 08/10/21 04:00 Anion Gap 21 mmol/L 08/10/21 04:00 BUN 30 mg/dL (7-17) H 08/10/21 04:00 Creatinine 5.5 mg/dL (0.6-1.2) H 08/10/21 04:00 Estimated GFR 10 ml/min 08/10/21 04:00 BUN/Creatinine Ratio 5 % 08/10/21 04:00 Glucose 139 mg/dL (65-100) H 08/10/21 04:00 POC Glucose 142 mg/dL (70-105) H 08/10/21 12:17 Calcium 9.0 mg/dL (8.4-10.2) 08/10/21 04:00 Phosphorus 5.90 mg/dL (2.5-4.5) H 08/10/21 04:00 Magnesium 1.90 mg/dL (1.7-2.3) 08/10/21 04:00 Total Bilirubin 0.70 mg/dL (0.1-1.2) 08/06/21 16:35 AST 18 units/L (5-40) 08/06/21 16:35 ALT 7 units/L (7-56) 08/06/21 16:35 Alkaline Phosphatase 102 units/L (35-129) 08/06/21 16:35 Troponin T 0.183 ng/mL (0.00-0.029) H* D 08/05/21 18:56 Total Protein 6.2 g/dL (6.3-8.2) L 08/06/21 16:35 Albumin 3.2 g/dL (3.9-5) L 08/06/21 16:35 Albumin/Globulin Ratio 1.1 % 08/06/21 16:35 Triglycerides 129 mg/dL (2-149) 08/09/21 04:33 Cholesterol 170 mg/dL (50-199) 08/05/21 15:55 LDL Cholesterol Direct 106 mg/dL (50-130) 08/05/21 15:55 HDL Cholesterol 32 mg/dL (40-59) L 08/05/21 15:55 Cholesterol/HDL Ratio 5.31 % 08/05/21 15:55 TSH 7.070 mlU/mL (0.270-4.200) H 08/07/21 13:30 Arterial Blood Glucose 85 mg/dL (65-95) 08/10/21 04:55 Arterial Blood Ionized Calcium 4.7 mg/dL (4.6-5.3) 08/10/21 04:55 Coronavirus (PCR) Negative (Negative) 08/07/21 Unknown Hepatitis A IgM Ab Non-reactive (NonReactive) 08/08/21 04:26 Hep Bs Antigen Nonreactive (Negative) 08/08/21 04:26 Hep B Core IgM Ab Non-reactive (NonReactive) 08/08/21 04:26 Hepatitis C Antibody Non-reactive (NonReactive) 08/08/21 04:26 Blood Type O POSITIVE 08/06/21 05:30 Antibody Screen Negative 08/06/21 05:30 Crossmatch See Detail 08/06/21 05:30 Microbiology: Microbiology 08/06/21 18:48 Peripheral/Venous Blood Culture - Preliminary NO GROWTH AFTER 72 HOURS 08/06/21 18:48 Peripheral/Venous Blood Culture - Preliminary NO GROWTH AFTER 72 HOURS 08/05/21 Unknown Tracheal Aspirate Sputum Culture - Final Active Medications - Current Medications Current Medications: Generic Name Dose Route Start Last Admin Trade Name Freq PRN Reason Stop Dose Admin Acetaminophen 650 mg 08/06/21 16:30 08/06/21 16:30 Acetaminophen 650 Mg Rect Supp WI 650 mg Q6H PRN Administration Pain, Mild (1-3) Albuterol 2.5 mg 08/05/21 20:59 Albuterol 2.5 Mg/3 Ml Nebu IH Q4HRT PRN Shortness Of Breath Lipase/Protease/Amylase 1 each 08/07/21 09:47 Lipase 10,500/Protease 25,000/Amylase 43,750 (Units) Dr Thomas FEEDTUBE PRN PRN For Clogged Feeding Tube Aspirin 81 mg 08/07/21 10:00 08/10/21 12:22 Aspirin 81 Mg Tab Chew PO Not Given QDAY JODI Atorvastatin Calcium 80 mg 08/05/21 22:00 08/09/21 21:40 Atorvastatin 40 Mg Tab PO 80 mg QHS JODI Administration Clopidogrel Bisulfate 75 mg 08/10/21 10:00 08/10/21 12:23 Clopidogrel 75 Mg Tab PO Not Given QDAY JODI Dextrose 25 ml 08/06/21 15:08 08/09/21 05:26 Dextrose 50% In Water (25gm) 50 Ml Syringe IV 15 ml Q30MIN PRN Administration Hypoglycemia Protocol Famotidine 10 mg 08/09/21 22:00 08/10/21 10:07 Famotidine 10 Mg Tab PO 10 mg BID JODI Administration Fentanyl 50 mcg 08/05/21 17:25 08/10/21 10:06 Fentanyl 100 Mcg/2 Ml Inj IV 50 mcg Q10MIN PRN Administration ANALGESIA Hydralazine HCl 10 mg 08/06/21 04:21 08/10/21 08:03 Hydralazine 20 Mg/1 Ml Inj IV 10 mg Q6HR PRN Administration Hypertension Hydrophilic Ointment 1 applic 08/05/21 17:25 Lip Therapy Vaseline TP Q2HR PRN Dry Lips Fentanyl Citrate 2,000 mcg in 100 mls @ 3.213 mls/hr 08/05/21 18:00 08/10/21 05:44 Fentanyl Drip Premix IV 0 mcg/kg/hr TITR JODI 0 mls/hr Titration Protocol 1 MCG/KG/HR Propofol 1,000 mg in 100 mls @ 1.928 mls/hr 08/06/21 17:00 08/10/21 11:33 Diprivan 10 Mg/Ml IV 15 mcg/kg/min TITR JODI 5.783 mls/hr Titration Protocol 5 MCG/KG/MIN Sodium Chloride 100 mls @ 999 mls/hr 08/06/21 23:18 Nacl 0.9% IV GLENDY PRN Hypotension Sodium Chloride 100 mls @ 999 mls/hr 08/09/21 18:42 Nacl 0.9% IV GLENDY PRN Hypotension Amiodarone HCl 360 mg/ 200 mls @ 33.333 mls/hr 08/09/21 19:00 08/10/21 07:28 Dextrose IV 0.5 mg/min DIRECT JODI 16.667 mls/hr Administration Protocol 1 MG/MIN Sodium Chloride 100 mls @ 999 mls/hr 08/10/21 13:01 Nacl 0.9% IV GLENDY PRN Hypotension Nicardipine HCl 50 mg/ Sodium 250 mls @ 25 mls/hr 08/10/21 16:00 Chloride IV TITR JODI Protocol 5 MG/HR Isosorbide Dinitrate 10 mg 08/10/21 14:00 08/10/21 13:28 Isosorbide Dinitrate 10 Mg Tab PO 10 mg Q8HR JODI Administration Losartan Potassium 25 mg 08/05/21 22:00 08/10/21 10:06 Losartan 25 Mg Tab PO 25 mg BID JODI Administration Metoclopramide HCl 5 mg 08/05/21 21:03 Metoclopramide 10 Mg/2 Ml Inj IV Q6H PRN Nausea And Vomiting Metoprolol Tartrate 50 mg 08/10/21 22:00 Metoprolol Tartrate 50 Mg Tab PO BID JODI Multi-Ingred Cream/Lotion/Oil/Oint 1 applic 08/05/21 17:25 Mineral Oil/Petrolatum, White Ophth Oint 3.5 Gm OU Q4HR PRN Dry Eye(s) Ondansetron HCl 4 mg 08/05/21 21:03 Ondansetron 4 Mg/2 Ml Inj IV Q8H PRN Nausea And Vomiting Oxycodone/Acetaminophen 1 tab 08/05/21 21:03 Oxycodone /Acetaminophen 5-325mg Tab PO Q6H PRN Pain, Moderate (4-6) Senna 8.8 mg 08/07/21 13:00 08/10/21 09:52 Sennosides Oral Liqd 8.8 Mg/5 Ml Oral Liqd FEEDTUBE Not Given BID JODI Simple Syrup 15 ml 08/07/21 09:47 Simple Syrup 15 Ml FEEDTUBE PRN PRN Hypoglycemia Simple Syrup 30 ml 08/07/21 09:47 Simple Syrup 15 Ml FEEDTUBE PRN PRN Hypoglycemia Sodium Bicarbonate 325 mg 08/07/21 09:47 Sodium Bicarbonate 325 Mg Tab FEEDTUBE PRN PRN For Clogged Feeding Tube Sodium Chloride 10 ml 08/05/21 22:00 08/10/21 10:07 Sodium Chloride 0.9% 10 Ml Flush Syringe IV 10 ml BID JODI Administration Sodium Chloride 10 ml 08/05/21 21:03 Sodium Chloride 0.9% 10 Ml Flush Syringe IV PRN PRN LINE FLUSH Nutrition/Malnutrition Assess - Dietary Evaluation Nutrition/Malnutrition Findings: Nutrition Notes Start: 08/07/21 09:12 Freq: Status: Active Protocol: Document 08/09/21 18:21 KALA (Rec: 08/09/21 18:25 KALA [id number]) Nutrition Notes Initial or Follow up Brief Note Current Diet TF-Nepro w/CARBSTEADY @ 32 ml/ hr (since L 08/07). Weight change and time frame No body weight change reported . Weight Status Overweight Subjective/Other Information RD consult for routine F/U on TF tolerance. TF continues without changes. Percent of energy/protein needs met: Prescribed Nepro w/CARBSTEADY @ 32 ml/hr will provide for energy/protein needs (1,403 Kcal/63 g) 100% Kcal; 82% AA, during LOS. #1 Nutrition Diagnosis Inadequate oral intake Diagnosis Progress(for reassessment Continues documentation) Nutrition Intervention Nutrition Support: Continue Nepro w/CARBSTEADY @ 32 ml/hr. Flush: 140 ml water Q 4 hr. Goal #1 Provide at least 75% of energy /protein needs through Enteral Feeding during LOS. Follow-Up By: 08/16/21 Additional Comments Continue monitoring TF tolerance, and BM.
[2021-08-10] MEDS: niCARdipine 50 MG in SODIUM CHLORIDE 0.9% 250ML 230 ML IV SCH (16:21)
--- NOTE | 2021-08-10 17:37 | Progress Note ---
Assessment and Plan VT Storm Recurrent AICD Discharges CAD s/p PCI (07/17/2021) Accelerated HTN ESRD on HD Hyponatremia Hyperkalemia Severe Hypokalemia (POA, resolved) Anemia Thrombocytopenia Type 2 [place] HTN H/o CVA [facility] 07/17/2021 Multivessel CAD - s/p successful IVUS-guided PCI with POBA to ostial LCx ECHO 07/16/2021 SUMMARY/CONCLUSIONS: 1. Left ventricular ejection fraction is 45-50%. 2. Aortic valve is moderately calcified and tricuspid. 3. Moderately dilated left atrium. 4. Mild aortic stenosis. 5. Dilated inferior vena cava, with respiratory size variation greater than 50%. 6. Trivial pericardial effusion. 7. Mildly increased left ventricular wall thickness. 8. Mild tricuspid regurgitation. 9. Mild mitral valve regurgitation. 10. Moderate mitral annular calcification. 11. The aortic valve max velocity is 2.38 m/s. The peak gradient is 22.7 mmHg with a mean gradient of 11.0 mmHg, the left ventricle outflow tract measures 2.00 cm. SARAH (VTI) is 1.40 cm with AVAi (VTI) of 0.96 cm/m. 12. The estimated right ventricular systolic pressure is mildly elevated right ventricular systolic pressure at 43.8 mmHg. Plan: Awaiting transfer to [place] for EPS/possible VT ablation pending bed availability as per previous documentation. Continue IV Amio gtt @ 0.5mg/min. Continue beta kathy as BP permits. Optimize antihypertensive regimen. Increase Lopressor to 50mg TID. May also increase Losartan if needed. Wean Cardene gtt. Continue DAPT in light of recent PCI. D/w RN today. Plavix was previously held in the setting of severe epistaxis. Closely monitor H/H & Plts, and resume in AM if no significant bleeding. Continue high-intensity statin. Pt seen in conjunction with Dr. Padilla, who agrees with the assessment and plan of care. - Patient Problems (1) VT (ventricular tachycardia) Current Visit: Yes Status: Acute (2) AICD (automatic cardioverter/defibrillator) present Current Visit: Yes Status: Chronic Subjective Date of service: 08/10/21 Principal diagnosis: Recurrent VT Interval history: BP elevated again. Cardene gtt initiated. Atrial-paced 70 on tele, no events overnight. Objective Last Vital Signs Temp 98.0 F 08/10/21 13:00 Pulse 70 08/10/21 16:47 Resp 16 08/10/21 16:00 BP 171/73 08/10/21 16:47 Pulse Ox 100 08/10/21 16:47 - Physical Examination General: Other (intubated) HEENT: Positive: Normocephaly, Mucus Membranes Dry (bleeding noted from nose) Neck: Positive: neck supple, trachea midline Cardiac: Positive: Reg Rate and Rhythm Lungs: Positive: Ventilated Respirations Neuro: Positive: Other (intubated) Abdomen: Positive: Soft Skin: Negative: Rash Musculoskeletal: No Fluid Collection Extremities: Present: lower extr. pulses. Absent: edema - Labs and Meds CBC 08/10/21 Range/Units 04:00 WBC 3.3 L (4.5-11.0) K/mm3 RBC 3.32 L (3.65-5.03) M/mm3 Hgb 8.9 L (10.1-14.3) gm/dl Hct 27.6 L (30.3-42.9) % Plt Count 153 (140-440) K/mm3 Comprehensive Metabolic Panel 08/10/21 Range/Units 04:00 Sodium 123 L (137-145) mmol/L Potassium 5.5 H D (3.6-5.0) mmol/L Chloride 84.8 L (98-107) mmol/L Carbon Dioxide 23 (22-30) mmol/L BUN 30 H (7-17) mg/dL Creatinine 5.5 H (0.6-1.2) mg/dL Glucose 139 H (65-100) mg/dL Calcium 9.0 (8.4-10.2) mg/dL - Imaging and Cardiology EKG: report reviewed, image reviewed Echo: report reviewed Cardiac cath: report reviewed - Telemetry EKG Rhythm: Paced - EKG Sinus rhythms and dysrhythmias: sinus rhythm Repolarization changes or abnormalities: Q-T interval prolongation Myocardial infarction: anterior [place] (old age or i Pacemaker: atrial pacing w/capture - Allied health notes Allied health notes reviewed: nursing
[2021-08-10] MEDS ORDERED: METOPROLOL TARTRATE 50 MG TAB PO SCH (22:00)
--- NOTE | 2021-08-10 22:02 | Progress Note ---
Assessment and Plan Imp: 1. Sustained VT 2. ICMP/CAD 3. Acute respiratory failure, hypoxia 4. ESRD 5. Hypokalemia 6. Pancytopenia Rec: 1. Amiodarone drip 2. Leaving on vent pending transfer to [place], but okay with SAT/SBT 3. HD per renal 4. K repleted 5. Consider hematology eval. for pancytopenia 6. EEG for involuntary movements of legs; weaning off all sedation and, if mentation remains poor despite this, will plan CT head 7. Pepcid, SCDs, TFs 8. Cardene drip for BP control 9. CCt 31 minutes; prognosis is guarded; no family present Subjective Date of service: 08/10/21 Principal diagnosis: Recurrent VT Interval history: Cardene drip started for HTN. Propofol weaned to 5mcg, off Fentanyl. Unresponsive on ventilator. Active Medications Acetaminophen (Acetaminophen 650 Mg Rect Supp) 650 mg VA Q6H PRN PRN Reason: Pain, Mild (1-3) Last Admin: 08/06/21 16:30 Dose: 650 mg Documented by: Albuterol (Albuterol 2.5 Mg/3 Ml Nebu) 2.5 mg IH Q4HRT PRN PRN Reason: Shortness Of Breath Lipase/Protease/Amylase (Lipase 10,500/Protease 25,000/Amylase 43,750 (Units) Dr Cap) 1 each FEEDTUBE PRN PRN PRN Reason: For Clogged Feeding Tube Aspirin (Aspirin 81 Mg Tab Chew) 81 mg PO QDAY [facility] Last Admin: 08/10/21 12:22 Dose: Not Given Documented by: Atorvastatin Calcium (Atorvastatin 40 Mg Tab) 80 mg PO QHS [facility] Last Admin: 08/10/21 21:31 Dose: 80 mg Documented by: Clopidogrel Bisulfate (Clopidogrel 75 Mg Tab) 75 mg PO QDAY [facility] Last Admin: 08/10/21 12:23 Dose: Not Given Documented by: Dextrose (Dextrose 50% In Water (25gm) 50 Ml Syringe) 25 ml IV Q30MIN PRN; Protocol PRN Reason: Hypoglycemia Last Admin: 08/09/21 05:26 Dose: 15 ml Documented by: Famotidine (Famotidine 10 Mg Tab) 10 mg PO BID [facility] Last Admin: 08/10/21 21:31 Dose: 10 mg Documented by: Fentanyl (Fentanyl 100 Mcg/2 Ml Inj) 50 mcg IV Q10MIN PRN PRN Reason: ANALGESIA Last Admin: 08/10/21 10:06 Dose: 50 mcg Documented by: Hydralazine HCl (Hydralazine 20 Mg/1 Ml Inj) 10 mg IV Q6HR PRN PRN Reason: Hypertension Last Admin: 08/10/21 08:03 Dose: 10 mg Documented by: Hydrophilic Ointment (Lip Therapy Vaseline) 1 applic TP Q2HR PRN PRN Reason: Dry Lips Fentanyl Citrate (Fentanyl Drip Premix) 2,000 mcg in 100 mls @ 3.213 mls/hr IV TITR JODI; Protocol Last Titration: 08/10/21 19:10 Dose: 0 mcg/kg/hr, 0 mls/hr Documented by: Propofol (Diprivan 10 Mg/Ml) 1,000 mg in 100 mls @ 1.928 mls/hr IV TITR JODI; Protocol Last Titration: 08/10/21 19:16 Dose: 5 mcg/kg/min, 1.928 mls/hr Documented by: Sodium Chloride (Nacl 0.9%) 100 mls @ 999 mls/hr IV GLENDY PRN PRN Reason: Hypotension Sodium Chloride (Nacl 0.9%) 100 mls @ 999 mls/hr IV GLENDY PRN PRN Reason: Hypotension Amiodarone HCl 360 mg/ (Dextrose) 200 mls @ 33.333 mls/hr IV DIRECT JODI; Protocol Last Admin: 08/10/21 19:16 Dose: 0.5 mg/min, 16.667 mls/hr Documented by: Sodium Chloride (Nacl 0.9%) 100 mls @ 999 mls/hr IV GLENDY PRN PRN Reason: Hypotension Nicardipine HCl 50 mg/ Sodium (Chloride) 250 mls @ 25 mls/hr IV TITR JODI; Protocol Last Titration: 08/10/21 17:18 Dose: 2.5 mg/hr, 12.5 mls/hr Documented by: Isosorbide Dinitrate (Isosorbide Dinitrate 10 Mg Tab) 10 mg PO Q8HR JODI Last Admin: 08/10/21 21:30 Dose: 10 mg Documented by: Losartan Potassium (Losartan 25 Mg Tab) 25 mg PO BID JODI Last Admin: 08/10/21 21:29 Dose: 25 mg Documented by: Metoclopramide HCl (Metoclopramide 10 Mg/2 Ml Inj) 5 mg IV Q6H PRN PRN Reason: Nausea And Vomiting Metoprolol Tartrate (Metoprolol Tartrate 50 Mg Tab) 50 mg PO TID [facility] Last Admin: 08/10/21 21:30 Dose: 50 mg Documented by: Multi-Ingred Cream/Lotion/Oil/Oint (Mineral Oil/Petrolatum, White Ophth Oint 3.5 Gm) 1 applic OU Q4HR PRN PRN Reason: Dry Eye(s) Ondansetron HCl (Ondansetron 4 Mg/2 Ml Inj) 4 mg IV Q8H PRN PRN Reason: Nausea And Vomiting Oxycodone/Acetaminophen (Oxycodone /Acetaminophen 5-325mg Tab) 1 tab PO Q6H PRN PRN Reason: Pain, Moderate (4-6) Senna (Sennosides Oral Liqd 8.8 Mg/5 Ml Oral Liqd) 8.8 mg FEEDTUBE BID [facility] Last Admin: 08/10/21 21:30 Dose: 8.8 mg Documented by: Simple Syrup (Simple Syrup 15 Ml) 15 ml FEEDTUBE PRN PRN PRN Reason: Hypoglycemia Simple Syrup (Simple Syrup 15 Ml) 30 ml FEEDTUBE PRN PRN PRN Reason: Hypoglycemia Sodium Bicarbonate (Sodium Bicarbonate 325 Mg Tab) 325 mg FEEDTUBE PRN PRN PRN Reason: For Clogged Feeding Tube Sodium Chloride (Sodium Chloride 0.9% 10 Ml Flush Syringe) 10 ml IV BID [facility] Last Admin: 08/10/21 10:07 Dose: 10 ml Documented by: Sodium Chloride (Sodium Chloride 0.9% 10 Ml Flush Syringe) 10 ml IV PRN PRN PRN Reason: LINE FLUSH Objective Vital Signs - 12hr 08/10/21 08/10/21 08/10/21 10:00 10:06 10:15 Temperature Pulse Rate 70 70 70 Pulse Rate [ From Monitor] Respiratory 12 Rate Blood Pressure 195/83 195/83 202/85 O2 Sat by Pulse 98 Oximetry O2 Sat by Pulse Oximetry [ Anterior Bilateral] O2 Sat by Pulse Oximetry [ Bases] O2 Sat by Pulse Oximetry [ Bilateral Bases ] O2 Sat by Pulse Oximetry [ Bilateral Throughout] 08/10/21 08/10/21 08/10/21 10:32 10:45 11:00 Temperature Pulse Rate 70 70 70 Pulse Rate [ From Monitor] Respiratory 11 L Rate Blood Pressure 191/80 196/79 204/81 O2 Sat by Pulse 99 Oximetry O2 Sat by Pulse Oximetry [ Anterior Bilateral] O2 Sat by Pulse Oximetry [ Bases] O2 Sat by Pulse Oximetry [ Bilateral Bases ] O2 Sat by Pulse Oximetry [ Bilateral Throughout] 08/10/21 08/10/21 08/10/21 11:15 11:30 11:45 Temperature Pulse Rate 70 70 70 Pulse Rate [ From Monitor] Respiratory Rate Blood Pressure 186/78 190/79 193/79 O2 Sat by Pulse Oximetry O2 Sat by Pulse Oximetry [ Anterior Bilateral] O2 Sat by Pulse Oximetry [ Bases] O2 Sat by Pulse Oximetry [ Bilateral Bases ] O2 Sat by Pulse Oximetry [ Bilateral Throughout] 08/10/21 08/10/21 08/10/21 12:00 12:15 12:30 Temperature 97.9 F Pulse Rate 70 70 70 Pulse Rate [ 70 From Monitor] Respiratory 12 Rate Blood Pressure 187/77 195/82 193/81 O2 Sat by Pulse 100 Oximetry O2 Sat by Pulse Oximetry [ Anterior Bilateral] O2 Sat by Pulse Oximetry [ Bases] O2 Sat by Pulse Oximetry [ Bilateral Bases ] O2 Sat by Pulse Oximetry [ Bilateral Throughout] 08/10/21 08/10/21 08/10/21 12:36 13:00 13:27 Temperature 98.0 F Pulse Rate 70 70 70 Pulse Rate [ From Monitor] Respiratory 12 Rate Blood Pressure 193/81 170/71 176/72 O2 Sat by Pulse 99 98 Oximetry O2 Sat by Pulse 99 Oximetry [ Anterior Bilateral] O2 Sat by Pulse 99 Oximetry [ Bases] O2 Sat by Pulse 99 Oximetry [ Bilateral Bases ] O2 Sat by Pulse 99 Oximetry [ Bilateral Throughout] 08/10/21 08/10/21 08/10/21 13:28 14:00 15:01 Temperature Pulse Rate 70 70 70 Pulse Rate [ From Monitor] Respiratory 14 17 Rate Blood Pressure 176/72 175/74 189/76 O2 Sat by Pulse 99 100 Oximetry O2 Sat by Pulse Oximetry [ Anterior Bilateral] O2 Sat by Pulse Oximetry [ Bases] O2 Sat by Pulse Oximetry [ Bilateral Bases ] O2 Sat by Pulse Oximetry [ Bilateral Throughout] 08/10/21 08/10/21 08/10/21 16:00 16:21 16:47 Temperature 97.9 F Pulse Rate 70 70 70 Pulse Rate [ 70 From Monitor] Respiratory 16 Rate Blood Pressure 189/76 200/85 171/73 O2 Sat by Pulse 98 100 Oximetry O2 Sat by Pulse Oximetry [ Anterior Bilateral] O2 Sat by Pulse Oximetry [ Bases] O2 Sat by Pulse Oximetry [ Bilateral Bases ] O2 Sat by Pulse Oximetry [ Bilateral Throughout] 08/10/21 08/10/21 08/10/21 17:00 18:00 19:30 Temperature Pulse Rate 70 70 70 Pulse Rate [ From Monitor] Respiratory 12 16 Rate Blood Pressure 170/72 157/69 166/75 O2 Sat by Pulse 99 97 97 Oximetry O2 Sat by Pulse Oximetry [ Anterior Bilateral] O2 Sat by Pulse Oximetry [ Bases] O2 Sat by Pulse Oximetry [ Bilateral Bases ] O2 Sat by Pulse Oximetry [ Bilateral Throughout] 08/10/21 08/10/21 08/10/21 19:33 21:29 21:30 Temperature 99.3 F Pulse Rate 70 70 Pulse Rate [ From Monitor] Respiratory Rate Blood Pressure 183/80 183/80 O2 Sat by Pulse Oximetry O2 Sat by Pulse Oximetry [ Anterior Bilateral] O2 Sat by Pulse Oximetry [ Bases] O2 Sat by Pulse Oximetry [ Bilateral Bases ] O2 Sat by Pulse Oximetry [ Bilateral Throughout] Constitutional: other (intubated and sedated) Eyes: non-icteric ENT: other (orally intubated) Neck: supple Effort: normal Ascultation: Bilateral: clear Percussion: Bilateral: not dull Cardiovascular: regular rate and rhythm (no mrg) Gastrointestinal: normoactive bowel sounds, soft, non-tender, non-distended Integumentary: normal Extremities: no cyanosis, no edema, pink and warm Neurologic: unable to assess Psychiatric: other (unable to assess) CBC and BMP: 08/10/21 04:00 08/10/21 04:00 ABG, PT/INR, D-dimer: ABG ABG pH 7.402 (7.320-7.450) 08/10/21 04:55 POC ABG pCO2 37.9 mmHg (32.0-48.0) 08/10/21 04:55 ABG pCO2 41.2 mm Hg 08/09/21 04:30 POC ABG pO2 83.4 mmHg (83-108) 08/10/21 04:55 ABG pO2 91.5 mm Hg (80.0-90.0) H 08/09/21 04:30 POC ABG HCO3 23.1 08/10/21 04:55 ABG O2 Saturation 96.0 (0-100) 08/10/21 04:55 PT/INR, D-dimer PT 14.2 Sec. (12.2-14.9) 08/06/21 16:35 INR 0.99 (0.87-1.13) 08/06/21 16:35 Abnormal lab findings: Abnormal Labs 08/05/21 08/05/21 08/05/21 15:55 15:55 18:50 WBC 3.7 L RBC 2.98 L Hgb 7.5 L Hct 23.8 L MCH 25 L RDW 18.9 H Plt Count 134 L Lymph % (Auto) [place] % (Auto) Lymph # (Auto) Seg Neutrophils % Seg Neuts % (Manual) Lymphocytes % (Manual) Monocytes % (Manual) 18.0 H Eosinophils % (Manual) Basophils % (Manual) 2.0 H Seg Neutrophils # Seg Neutrophils # Man Lymphocytes # (Manual) 0.9 L APTT ABG pH 7.523 H POC ABG pO2 ABG pO2 47.1 L ABG HCO3 34.6 H ABG O2 Saturation 85.4 L ABG Base Excess 10.8 H ABG Hemoglobin 7.3 L ABG Sodium ABG Potassium ABG Chloride ABG Glucose Oxyhemoglobin 83.6 L Carboxyhemoglobin Sodium Potassium 2.7 L* Chloride 93.8 L Carbon Dioxide 33 H BUN Creatinine 2.8 H Glucose 124 H POC Glucose Calcium 8.2 L Phosphorus ALT < 5 L Troponin T 0.126 H* Total Protein Albumin 3.5 L Triglycerides 202 H HDL Cholesterol 32 L TSH Arterial Blood Glucose Crossmatch 08/05/21 08/05/21 08/06/21 18:56 Unknown 04:20 WBC RBC Hgb Hct MCH RDW Plt Count Lymph % (Auto) [place] % (Auto) Lymph # (Auto) Seg Neutrophils % Seg Neuts % (Manual) Lymphocytes % (Manual) Monocytes % (Manual) Eosinophils % (Manual) Basophils % (Manual) Seg Neutrophils # Seg Neutrophils # Man Lymphocytes # (Manual) APTT ABG pH 7.575 H 7.606 H* POC ABG pO2 ABG pO2 142.9 H 111.2 H ABG HCO3 33.2 H 33.6 H ABG O2 Saturation ABG Base Excess 10.4 H 11.2 H ABG Hemoglobin 6.6 L 6.8 L ABG Sodium ABG Potassium ABG Chloride ABG Glucose Oxyhemoglobin Carboxyhemoglobin Sodium Potassium Chloride Carbon Dioxide BUN Creatinine Glucose POC Glucose Calcium Phosphorus ALT Troponin T 0.183 H* D Total Protein Albumin Triglycerides HDL Cholesterol TSH Arterial Blood Glucose Crossmatch 08/06/21 08/06/21 08/06/21 04:29 04:29 04:29 WBC 2.5 L RBC 2.70 L Hgb 6.8 L Hct 21.3 L MCH 25 L RDW 18.1 H Plt Count 126 L Lymph % (Auto) 45.0 H [place] % (Auto) 13.6 H Lymph # (Auto) 1.1 L Seg Neutrophils % 37.3 L Seg Neuts % (Manual) Lymphocytes % (Manual) Monocytes % (Manual) Eosinophils % (Manual) Basophils % (Manual) Seg Neutrophils # 0.9 L Seg Neutrophils # Man Lymphocytes # (Manual) APTT 38.8 H ABG pH POC ABG pO2 ABG pO2 ABG HCO3 ABG O2 Saturation ABG Base Excess ABG Hemoglobin ABG Sodium ABG Potassium ABG Chloride ABG Glucose Oxyhemoglobin Carboxyhemoglobin Sodium 136 L Potassium 3.0 L Chloride 92.6 L Carbon Dioxide 32 H BUN Creatinine 3.8 H Glucose POC Glucose Calcium Phosphorus ALT Troponin T Total Protein 5.8 L Albumin 3.1 L Triglycerides HDL Cholesterol TSH Arterial Blood Glucose Crossmatch 08/06/21 08/06/21 08/06/21 05:30 07:26 07:26 WBC RBC Hgb 7.0 L Hct 22.5 L MCH RDW Plt Count 127 L Lymph % (Auto) [place] % (Auto) Lymph # (Auto) Seg Neutrophils % Seg Neuts % (Manual) Lymphocytes % (Manual) Monocytes % (Manual) Eosinophils % (Manual) Basophils % (Manual) Seg Neutrophils # Seg Neutrophils # Man Lymphocytes # (Manual) APTT 37.1 H ABG pH POC ABG pO2 ABG pO2 ABG HCO3 ABG O2 Saturation ABG Base Excess ABG Hemoglobin ABG Sodium ABG Potassium ABG Chloride ABG Glucose Oxyhemoglobin Carboxyhemoglobin Sodium Potassium Chloride Carbon Dioxide BUN Creatinine Glucose POC Glucose Calcium Phosphorus ALT Troponin T Total Protein Albumin Triglycerides HDL Cholesterol TSH Arterial Blood Glucose Crossmatch See Detail 08/06/21 08/06/21 08/06/21 08:06 14:50 16:03 WBC RBC Hgb Hct MCH RDW Plt Count Lymph % (Auto) [place] % (Auto) Lymph # (Auto) Seg Neutrophils % Seg Neuts % (Manual) Lymphocytes % (Manual) Monocytes % (Manual) Eosinophils % (Manual) Basophils % (Manual) Seg Neutrophils # Seg Neutrophils # Man Lymphocytes # (Manual) APTT ABG pH POC ABG pO2 ABG pO2 ABG HCO3 ABG O2 Saturation ABG Base Excess ABG Hemoglobin ABG Sodium ABG Potassium ABG Chloride ABG Glucose Oxyhemoglobin Carboxyhemoglobin Sodium Potassium 3.1 L Chloride 92.4 L Carbon Dioxide 33 H BUN Creatinine 3.9 H Glucose POC Glucose 59 L 121 H Calcium Phosphorus ALT Troponin T Total Protein Albumin Triglycerides HDL Cholesterol TSH Arterial Blood Glucose Crossmatch 08/06/21 08/06/21 08/06/21 16:35 16:35 17:31 WBC 4.2 L RBC 3.27 L Hgb 8.5 L Hct 26.8 L MCH 26 L RDW 18.7 H Plt Count 124 L Lymph % (Auto) [place] % (Auto) 15.5 H Lymph # (Auto) 0.8 L Seg Neutrophils % Seg Neuts % (Manual) Lymphocytes % (Manual) Monocytes % (Manual) Eosinophils % (Manual) Basophils % (Manual) Seg Neutrophils # Seg Neutrophils # Man Lymphocytes # (Manual) APTT ABG pH POC ABG pO2 ABG pO2 ABG HCO3 ABG O2 Saturation ABG Base Excess ABG Hemoglobin ABG Sodium ABG Potassium ABG Chloride ABG Glucose Oxyhemoglobin Carboxyhemoglobin Sodium 133 L Potassium Chloride 93.2 L Carbon Dioxide BUN 21 H Creatinine 4.6 H Glucose POC Glucose 62 L Calcium 8.3 L Phosphorus ALT Troponin T Total Protein 6.2 L Albumin 3.2 L Triglycerides HDL Cholesterol TSH Arterial Blood Glucose Crossmatch 08/06/21 08/06/21 08/07/21 18:14 18:22 04:00 WBC 1.0 L* RBC 2.67 L Hgb 7.0 L Hct 21.8 L MCH 26 L RDW 18.7 H Plt Count 82 L Lymph % (Auto) [place] % (Auto) Lymph # (Auto) Seg Neutrophils % Seg Neuts % (Manual) 16.0 L Lymphocytes % (Manual) 60.0 H Monocytes % (Manual) Eosinophils % (Manual) 11.0 H Basophils % (Manual) 4.0 H Seg Neutrophils # Seg Neutrophils # Man 0.2 L Lymphocytes # (Manual) 0.6 L APTT ABG pH 7.565 H POC ABG pO2 ABG pO2 113.3 H ABG HCO3 29.4 H ABG O2 Saturation ABG Base Excess 6.9 H ABG Hemoglobin 8.3 L ABG Sodium ABG Potassium ABG Chloride ABG Glucose Oxyhemoglobin Carboxyhemoglobin Sodium Potassium Chloride Carbon Dioxide BUN Creatinine Glucose POC Glucose 148 H Calcium Phosphorus ALT Troponin T Total Protein Albumin Triglycerides HDL Cholesterol TSH Arterial Blood Glucose Crossmatch 08/07/21 08/07/21 08/07/21 04:00 04:25 08:30 WBC RBC Hgb Hct MCH RDW Plt Count Lymph % (Auto) [place] % (Auto) Lymph # (Auto) Seg Neutrophils % Seg Neuts % (Manual) Lymphocytes % (Manual) Monocytes % (Manual) Eosinophils % (Manual) Basophils % (Manual) Seg Neutrophils # Seg Neutrophils # Man Lymphocytes # (Manual) APTT ABG pH 7.609 H* 7.479 H POC ABG pO2 ABG pO2 121.4 H 130.2 H ABG HCO3 28.5 H 30.3 H ABG O2 Saturation ABG Base Excess 7.2 H 6.2 H ABG Hemoglobin 10.7 L 8.1 L ABG Sodium ABG Potassium ABG Chloride ABG Glucose Oxyhemoglobin Carboxyhemoglobin Sodium 133 L Potassium 3.2 L D Chloride 93.9 L Carbon Dioxide BUN 23 H Creatinine 4.3 H Glucose POC Glucose Calcium 8.1 L Phosphorus ALT Troponin T Total Protein Albumin Triglycerides HDL Cholesterol TSH Arterial Blood Glucose Crossmatch 08/07/21 08/07/21 08/07/21 13:18 13:30 15:51 WBC RBC Hgb Hct MCH RDW Plt Count Lymph % (Auto) [place] % (Auto) Lymph # (Auto) Seg Neutrophils % Seg Neuts % (Manual) Lymphocytes % (Manual) Monocytes % (Manual) Eosinophils % (Manual) Basophils % (Manual) Seg Neutrophils # Seg Neutrophils # Man Lymphocytes # (Manual) APTT ABG pH POC ABG pO2 ABG pO2 ABG HCO3 ABG O2 Saturation ABG Base Excess ABG Hemoglobin ABG Sodium ABG Potassium ABG Chloride ABG Glucose Oxyhemoglobin Carboxyhemoglobin Sodium Potassium Chloride Carbon Dioxide BUN Creatinine Glucose POC Glucose 67 L 58 L Calcium Phosphorus ALT Troponin T Total Protein Albumin Triglycerides HDL Cholesterol TSH 7.070 H Arterial Blood Glucose Crossmatch 08/08/21 08/08/21 08/08/21 04:19 04:26 04:26 WBC RBC Hgb 6.8 L Hct 21.6 L MCH RDW Plt Count 91 L Lymph % (Auto) [place] % (Auto) Lymph # (Auto) Seg Neutrophils % Seg Neuts % (Manual) Lymphocytes % (Manual) Monocytes % (Manual) Eosinophils % (Manual) Basophils % (Manual) Seg Neutrophils # Seg Neutrophils # Man Lymphocytes # (Manual) APTT ABG pH 7.545 H POC ABG pO2 ABG pO2 136.1 H ABG HCO3 27.3 H ABG O2 Saturation ABG Base Excess 4.5 H ABG Hemoglobin 6.9 L ABG Sodium ABG Potassium ABG Chloride ABG Glucose Oxyhemoglobin Carboxyhemoglobin Sodium 132 L Potassium Chloride 93.5 L Carbon Dioxide BUN Creatinine 3.7 H Glucose POC Glucose Calcium Phosphorus ALT Troponin T Total Protein Albumin Triglycerides HDL Cholesterol TSH Arterial Blood Glucose Crossmatch 08/08/21 08/08/21 08/08/21 09:45 12:23 18:51 WBC RBC Hgb Hct MCH RDW Plt Count Lymph % (Auto) [place] % (Auto) Lymph # (Auto) Seg Neutrophils % Seg Neuts % (Manual) Lymphocytes % (Manual) Monocytes % (Manual) Eosinophils % (Manual) Basophils % (Manual) Seg Neutrophils # Seg Neutrophils # Man Lymphocytes # (Manual) APTT ABG pH 7.471 H POC ABG pO2 71.1 L ABG pO2 ABG HCO3 ABG O2 Saturation ABG Base Excess ABG Hemoglobin ABG Sodium 128.9 L ABG Potassium ABG Chloride 95.0 L ABG Glucose 64 L Oxyhemoglobin Carboxyhemoglobin Sodium Potassium Chloride Carbon Dioxide BUN Creatinine Glucose POC Glucose 58 L 68 L Calcium Phosphorus ALT Troponin T Total Protein Albumin Triglycerides HDL Cholesterol TSH Arterial Blood Glucose 64 L Crossmatch 08/09/21 08/09/21 08/09/21 04:30 04:33 04:33 WBC 2.4 L RBC 3.16 L Hgb 8.3 L Hct 26.5 L MCH 26 L RDW 18.3 H Plt Count 113 L Lymph % (Auto) [place] % (Auto) Lymph # (Auto) Seg Neutrophils % Seg Neuts % (Manual) Lymphocytes % (Manual) Monocytes % (Manual) Eosinophils % (Manual) Basophils % (Manual) Seg Neutrophils # Seg Neutrophils # Man Lymphocytes # (Manual) APTT ABG pH POC ABG pO2 ABG pO2 91.5 H ABG HCO3 26.6 H ABG O2 Saturation ABG Base Excess ABG Hemoglobin 9.0 L ABG Sodium ABG Potassium ABG Chloride ABG Glucose Oxyhemoglobin Carboxyhemoglobin Sodium 129 L Potassium Chloride 91.9 L Carbon Dioxide BUN 22 H Creatinine 4.7 H Glucose POC Glucose Calcium Phosphorus ALT Troponin T Total Protein Albumin Triglycerides HDL Cholesterol TSH Arterial Blood Glucose Crossmatch 08/10/21 08/10/21 08/10/21 04:00 04:00 04:55 WBC 3.3 L RBC 3.32 L Hgb 8.9 L Hct 27.6 L MCH 27 L RDW 18.3 H Plt Count Lymph % (Auto) [place] % (Auto) Lymph # (Auto) Seg Neutrophils % Seg Neuts % (Manual) Lymphocytes % (Manual) Monocytes % (Manual) 9.0 H Eosinophils % (Manual) Basophils % (Manual) Seg Neutrophils # Seg Neutrophils # Man Lymphocytes # (Manual) 0.6 L APTT ABG pH POC ABG pO2 ABG pO2 ABG HCO3 ABG O2 Saturation ABG Base Excess ABG Hemoglobin 9.6 L ABG Sodium 120.3 L ABG Potassium 5.2 H ABG Chloride 88.0 L ABG Glucose Oxyhemoglobin Carboxyhemoglobin 0.4 L Sodium 123 L Potassium 5.5 H D Chloride 84.8 L Carbon Dioxide BUN 30 H Creatinine 5.5 H Glucose 139 H POC Glucose Calcium Phosphorus 5.90 H ALT Troponin T Total Protein Albumin Triglycerides HDL Cholesterol TSH Arterial Blood Glucose Crossmatch 08/10/21 12:17 WBC RBC Hgb Hct MCH RDW Plt Count Lymph % (Auto) [place] % (Auto) Lymph # (Auto) Seg Neutrophils % Seg Neuts % (Manual) Lymphocytes % (Manual) Monocytes % (Manual) Eosinophils % (Manual) Basophils % (Manual) Seg Neutrophils # Seg Neutrophils # Man Lymphocytes # (Manual) APTT ABG pH POC ABG pO2 ABG pO2 ABG HCO3 ABG O2 Saturation ABG Base Excess ABG Hemoglobin ABG Sodium ABG Potassium ABG Chloride ABG Glucose Oxyhemoglobin Carboxyhemoglobin Sodium Potassium Chloride Carbon Dioxide BUN Creatinine Glucose POC Glucose 142 H Calcium Phosphorus ALT Troponin T Total Protein Albumin Triglycerides HDL Cholesterol TSH Arterial Blood Glucose Crossmatch Chest x-ray: report reviewed, image reviewed Allied health notes reviewed: nursing
--- NOTE | 2021-08-11 04:39 | XRay Report ---
CHEST 1 VIEW INDICATION / CLINICAL INFORMATION: follow up respiratory failure. COMPARISON: 08/10/2021 FINDINGS: SUPPORT DEVICES: Stable, satisfactory device positioning. HEART / MEDIASTINUM: Stable. LUNGS / PLEURA: There has been significant improvement in the previously noted bibasilar pleural-pare nchymal disease-pulmonary opacities.. No pneumothorax. ADDITIONAL FINDINGS: No significant additional findings. IMPRESSION: 1. Significant improvement in the overall appearance of the chest radiograph. Signer Name: Angely Gleason MD Signed: 08/11/2021 4:35 AM Workstation Name: [id number]
[2021-08-11] MEDS: niCARdipine 50 MG in SODIUM CHLORIDE 0.9% 250ML 230 ML IV SCH ×3 (04:44→19:13)
[2021-08-11] MEDS: ISOSORBIDE DINITRATE 10 MG TAB PO SCH (06:10)
[2021-08-11] MEDS: AMIODARONE 360 MG in DEXTROSE 5% IN WATER 192.8 ML IV SCH ×2 (06:51→19:13)
[2021-08-11] MEDS: METOPROLOL TARTRATE 50 MG TAB PO SCH ×3 (08:24→22:43)
[2021-08-11 09:55] LABS: Hemoglobin 9.2 gm/dl (10.1-14.3); Mean Corpuscular HGB Conc 32 % (30-34); Mean Corpuscular Volume 83 fl (79-97); Platelet Count 235 K/mm3 (140-440); Red Cell Distribution Width 18.4 % (13.2-15.2)
[2021-08-11] MEDS: LOSARTAN 25 MG TAB PO SCH (10:45)
[2021-08-11] MEDS: ASPIRIN 81 MG TAB CHEW PO SCH (10:45)
[2021-08-11] MEDS: FAMOTIDINE 10 MG TAB PO SCH ×2 (10:45→22:44)
[2021-08-11] MEDS: CLOPIDOGREL 75 MG TAB PO SCH (10:45)
[2021-08-11] MEDS: HEPARIN 5,000 UNIT/1 ML VIAL SUB-Q SCH ×2 (10:46→22:44)
[2021-08-11] MEDS: SENNOSIDES ORAL LIQD 8.8 MG/5 ML ORAL LIQD FEEDTUBE SCH ×2 (10:46→22:44)
[2021-08-11 10:54] LABS: Band Neutrophils # (Manual) 0.1 K/mm3; Total Cells Counted 100
[2021-08-11 10:56] LABS: Hypochromasia Few; Platelet Estimate Consistent w Auto; Target Cells Few
--- NOTE | 2021-08-11 11:12 | Progress Note ---
<DAYAWALTER NoKristina - Last Filed: 08/11/21 17:27> Assessment and Plan Assessment and plan: This is 60-year-old female with ESRD on HD, recurrent AICD discharges, V. tach, cardiac arrest, anemia of chronic disease, CAD, systolic HF and HTN admitted for V. tach and severe hypokalemia Neuro: Sedated -Sedated with fentanyl and propofol -RASS goal -1 to -2 -Avoid delirium -Reorientation as needed -SAT/SBT when appropriate -CT head with no acute findings CV: Recurrent V. tach, NSTEMI, h/o s/p AICD implantation, systolic heart failure, V. tach, HTN -Cardiology consulted, appreciate recommendations -S/p lidocaine and Cardene drip -restarted cardene gtt today d/t persistent hypertension -increase in antihtn medication and addition of hydral PO -wean cardene off if possible -Restarted home p.o. antihypertensive regimen -adjust as needed -Amiodarone drip -Awaiting transfer to [place] -Continue Lipitor Respiratory: Intubated for airway protection -CCM consulted, appreciate recommendations -Intubated in the ED on 08/05 with a 6.50 ETT at 21 at the lips -A.m. vent settings assist-control rate 12, tidal volume 375, PEEP 6, FiO2 30% -See RT notes for titration -A.m. ABG and CXR noted -VAP bundle -SPO2 monitoring GI: NAD -Nutrition consult for tube feeding -24 hours +2096 mL -HD removal of 1L 08/10/2021 -PPI -BR: Senokot : ESRD on HD, hyponatremia, hypochloremia -Nephrology consulted, appreciate recommendations -HD per nephrology -Avoid nephrotoxic medications -Renally dose medications -Strict intake and output -Received HD 08/10/2021 -scheduled for HD today ID: Leukopenia (resolved) -Monitor WBC and fever curve -Follow-up blood culture x2 and sputum culture -NGTD Heme: Thrombocytopenia (resolved), acute on chronic anemia of chronic disease, leukopenia (improving) -S/p 2 unit PRBC -Noted to have bloody drainage from mouth and nose -Trend CBC -Transfuse for hemoglobin less than 7 -Epogen per nephrology -Resume DAPT per cards in setting of recent stent -restart heparin subq -SCDs to bilateral LE while in bed Endo: Hypoglycemia (resolved) -S/p D10 for hypoglycemia -Avoid hypoglycemia -Accu-Cheks every 4 Dispo: AWAITING TRANSFER TO [facility] since 08/06/2021 Critical care statement The high probability of a clinically significant sudden or life-threatening deterioration of the [cardiorespiratory system] and endocrine system required my full and direct attention, intervention and postoperative management. The aggregate critical care time was [60] minutes. The time is in addition to time spent performing reported procedures but includes the following: [x] 1: Data review and interpretation [x] 2: Patient assessment and monitoring of vital signs [x] 3: Documentation [x] 4: Medication orders and management Disposition Plan: icu Total Time Spent with Patient (Minutes): 60 History Interval history: This is 60-year-old female with ESRD on HD, recurrent AICD discharges, systolic heart failure, V. tach, cardiac arrest, anemia, CAD and HTN who presents to the emergency department from her dialysis center on 08/05 for severe muscle spasms secondary to AICD discharges per patient. She also had questionable seizures in the dialysis center. Patient was started on amiodarone and lidocaine. Patient was intubated for airway protection in the emergency department and work-up also revealed severe hypokalemia. Patient was admitted to the hospital service with consult cardiology, nephrology and CCM. 08/06/2021: Patient is sedated, Transfer to [facility] arranged 08/07: COVID-19 PCR negative. Patient received hemodialysis today. Off Cardene drip. Patient has been OG tube for p.o. BP medications. Thrombocytopenia persists therefore anticoagulation is held. Patient is leukopenia also. We will continue to trend CBC. Persistent hypoglycemia and D10 drip increased to 30 ml/hr. negative Covid test relayed to [facility]. 08/08: 1 unit prbc today, will start TF today. Still awaiting [facility] bed. 08/09: awaiting transfer to [facility]. TF nearly at goal so anticipate stopping dextrose IVF soon. Midline to be placed 08/10/2021: Received HD today. BP remains elevated therefore started on cardene gtt. Cardiology aware. No beds available yet. 08/11/2021: Cardene gtt infusing, CT head ordered as per nurse patient is not really responding (withdraw/ grimace to pain when off sedation/PERRL/intact cough/gag on PE). Hospitalist Physical - Constitutional Vitals: Temp Pulse Resp BP Pulse Ox 98.1 F 70 24 177/72 88 08/11/21 08:00 08/11/21 10:45 08/11/21 08:01 08/11/21 10:45 08/11/21 08:21 General appearance: Present: no acute distress, well-nourished - EENT Eyes: Present: PERRL, EOM intact - Neck Neck: Present: normal ROM - Respiratory Respiratory effort: normal Respiratory: bilateral: diminished - Cardiovascular Rhythm: regular Heart Sounds: Present: S1 & S2. Absent: systolic murmur, diastolic murmur - Extremities Extremities: no ischemia, pulses intact, pulses symmetrical, normal temperature, normal color Extremity abnormal: edema (BUE) Peripheral Pulses: within normal limits - Abdominal General gastrointestinal: soft, non-tender, normal bowel sounds - Psychiatric Psychiatric: cooperative - Neurologic Neurologic: no focal deficits, moves all extremities - Allied Health Allied health notes reviewed: nursing, RT HEART Score - HEART Score Age: 45-65 Risk factors: > 3 risk factors or hx of atherosclerotic disease Troponin: Troponin T 0.183 ng/mL (0.00-0.029) H* D 08/05/21 18:56 Troponin: 1-3x normal limit - Critical Actions Critical Actions: 4-6 pts:12-16.6% risk of adverse cardiac event. Should be admitted Results - Labs CBC & Chem 7: 08/11/21 04:00 08/11/21 05:53 Labs: Laboratory Last Values WBC 6.9 K/mm3 (4.5-11.0) 08/11/21 04:00 RBC 3.50 M/mm3 (3.65-5.03) L 08/11/21 04:00 Hgb 9.2 gm/dl (10.1-14.3) L 08/11/21 04:00 Hct 29.0 % (30.3-42.9) L 08/11/21 04:00 MCV 83 fl (79-97) 08/11/21 04:00 MCH 26 pg (28-32) L 08/11/21 04:00 MCHC 32 % (30-34) 08/11/21 04:00 RDW 18.4 % (13.2-15.2) H 08/11/21 04:00 Plt Count 235 K/mm3 (140-440) 08/11/21 04:00 Lymph % (Auto) Criminal Psychologist 08/07/21 04:00 Branch % (Auto) Criminal Psychologist 08/11/21 04:00 Eos % (Auto) 2.2 % (0.0-4.3) 08/06/21 16:35 Baso % (Auto) Criminal Psychologist 08/07/21 04:00 Lymph # (Auto) 0.8 K/mm3 (1.2-5.4) L 08/06/21 16:35 Branch # (Auto) 0.7 K/mm3 (0.0-0.8) 08/06/21 16:35 Eos # (Auto) 0.1 K/mm3 (0.0-0.4) 08/06/21 16:35 Baso # (Auto) 0.1 K/mm3 (0.0-0.1) 08/06/21 16:35 Add Manual Diff Complete 08/11/21 04:00 Total Counted 100 08/11/21 04:00 Seg Neutrophils % Criminal Psychologist 08/07/21 04:00 Seg Neuts % (Manual) 76.0 % (40.0-70.0) H 08/11/21 04:00 Band Neutrophils % 2.0 % 08/11/21 04:00 Lymphocytes % (Manual) 8.0 % (13.4-35.0) L 08/11/21 04:00 Reactive Lymphs % (Man) 5.0 % 08/07/21 04:00 Monocytes % (Manual) 13.0 % (0.0-7.3) H 08/11/21 04:00 Eosinophils % (Manual) 1.0 % (0.0-4.3) 08/10/21 04:00 Basophils % (Manual) 4.0 % (0.0-1.8) H 08/07/21 04:00 Metamyelocytes % 1.0 % 08/11/21 04:00 Nucleated RBC % Not Reportable 08/11/21 04:00 Seg Neutrophils # 2.6 K/mm3 (1.8-7.7) 08/06/21 16:35 Seg Neutrophils # Man 5.2 K/mm3 (1.8-7.7) 08/11/21 04:00 Band Neutrophils # 0.1 K/mm3 08/11/21 04:00 Lymphocytes # (Manual) 0.6 K/mm3 (1.2-5.4) L 08/11/21 04:00 Abs React Lymphs (Man) 0.0 K/mm3 08/11/21 04:00 Monocytes # (Manual) 0.9 K/mm3 (0.0-0.8) H 08/11/21 04:00 Eosinophils # (Manual) 0.0 K/mm3 (0.0-0.4) 08/11/21 04:00 Basophils # (Manual) 0.0 K/mm3 (0.0-0.1) 08/11/21 04:00 Metamyelocytes # 0.1 K/mm3 08/11/21 04:00 Myelocytes # 0.0 K/mm3 08/11/21 04:00 Promyelocytes # 0.0 K/mm3 08/11/21 04:00 Blast Cells # 0.0 K/mm3 08/11/21 04:00 WBC Morphology Not Reportable 08/11/21 04:00 WBC Morphology TNR 08/11/21 04:00 Hypersegmented Neuts Not Reportable 08/11/21 04:00 Hyposegmented Neuts Not Reportable 08/11/21 04:00 Hypogranular Neuts Not Reportable 08/11/21 04:00 Smudge Cells Not Reportable 08/11/21 04:00 Toxic Granulation Not Reportable 08/11/21 04:00 Toxic Vacuolation Not Reportable 08/11/21 04:00 Dohle Bodies Not Reportable 08/11/21 04:00 Pelger-Huet Anomaly Not Reportable 08/11/21 04:00 Claudio Rods Not Reportable 08/11/21 04:00 Platelet Estimate Consistent w auto 08/11/21 04:00 Clumped Platelets Not Reportable 08/11/21 04:00 Plt Clumps, EDTA Not Reportable 08/11/21 04:00 Large Platelets Not Reportable 08/11/21 04:00 Giant Platelets Not Reportable 08/11/21 04:00 Platelet Satelliting Not Reportable 08/11/21 04:00 Plt Morphology Comment Not Reportable 08/11/21 04:00 RBC Morphology Not Reportable 08/11/21 04:00 Dimorphic RBCs Not Reportable 08/11/21 04:00 Polychromasia Not Reportable 08/11/21 04:00 Hypochromasia Few 08/11/21 04:00 Poikilocytosis Not Reportable 08/11/21 04:00 Anisocytosis Not Reportable 08/11/21 04:00 Microcytosis Not Reportable 08/11/21 04:00 Macrocytosis Not Reportable 08/11/21 04:00 Spherocytes Not Reportable 08/11/21 04:00 Pappenheimer Bodies Not Reportable 08/11/21 04:00 Sickle Cells Not Reportable 08/11/21 04:00 Target Cells Few 08/11/21 04:00 Tear Drop Cells Not Reportable 08/11/21 04:00 Ovalocytes Not Reportable 08/11/21 04:00 Helmet Cells Not Reportable 08/11/21 04:00 Diaz-Teec Nos Pos Bodies Not Reportable 08/11/21 04:00 Pryor Rings Not Reportable 08/11/21 04:00 [place] Cells Not Reportable 08/11/21 04:00 Bite Cells Not Reportable 08/11/21 04:00 Crenated Cell Not Reportable 08/11/21 04:00 Elliptocytes Not Reportable 08/11/21 04:00 Acanthocytes (Spur) Not Reportable 08/11/21 04:00 Rouleaux Not Reportable 08/11/21 04:00 Hemoglobin C Crystals Not Reportable 08/11/21 04:00 Schistocytes Not Reportable 08/11/21 04:00 Malaria parasites Not Reportable 08/11/21 04:00 Aleks Bodies Not Reportable 08/11/21 04:00 Hem Pathologist Commnt No 08/11/21 04:00 PT 14.2 Sec. (12.2-14.9) 08/06/21 16:35 INR 0.99 (0.87-1.13) 08/06/21 16:35 APTT 37.1 Sec. (24.2-36.6) H 08/06/21 07:26 ABG pH 7.402 (7.320-7.450) 08/10/21 04:55 POC ABG pCO2 37.9 mmHg (32.0-48.0) 08/10/21 04:55 ABG pCO2 41.2 mm Hg 08/09/21 04:30 POC ABG pO2 83.4 mmHg (83-108) 08/10/21 04:55 ABG pO2 91.5 mm Hg (80.0-90.0) H 08/09/21 04:30 POC ABG HCO3 23.1 08/10/21 04:55 ABG HCO3 26.6 mmol/L (20.0-26.0) H 08/09/21 04:30 ABG O2 Saturation 96.0 (0-100) 08/10/21 04:55 ABG O2 Content 12.3 (0.0-44) 08/09/21 04:30 POC ABG Base Excess -1.5 08/10/21 04:55 ABG Base Excess 2.0 mmol/L (-2.0-3.0) 08/09/21 04:30 ABG Hemoglobin 9.6 (12.0-17.5) L 08/10/21 04:55 ABG Oxyhemoglobin 95.3 (94-98) 08/10/21 04:55 ABG Carboxyhemoglobin 1.4 % (0.0-5.0) 08/09/21 04:30 ABG Methemoglobin 0.3 (0.0-1.5) 08/10/21 04:55 ABG Sodium 120.3 mmol/L (136.0-145.0) L 08/10/21 04:55 ABG Potassium 5.2 mmol/L (3.40-4.50) H 08/10/21 04:55 ABG Chloride 88.0 mmol/L (98-107) L 08/10/21 04:55 ABG Glucose 85 mg/dL (65-95) 08/10/21 04:55 Oxyhemoglobin 95.4 % (95.0-99.0) 08/09/21 04:30 Carboxyhemoglobin 0.4 (0.5-1.5) L 08/10/21 04:55 FiO2 25 % 08/09/21 04:30 FiO2 % 25.0 08/10/21 04:55 Sodium 128 mmol/L (137-145) L 08/11/21 05:53 Potassium 4.6 mmol/L (3.6-5.0) 08/11/21 05:53 Chloride 90.3 mmol/L (98-107) L 08/11/21 05:53 Carbon Dioxide 22 mmol/L (22-30) 08/11/21 05:53 Anion Gap 20 mmol/L 08/11/21 05:53 BUN 24 mg/dL (7-17) H 08/11/21 05:53 Creatinine 4.3 mg/dL (0.6-1.2) H 08/11/21 05:53 Estimated GFR 13 ml/min 08/11/21 05:53 BUN/Creatinine Ratio 6 % 08/11/21 05:53 Glucose 135 mg/dL (65-100) H 08/11/21 05:53 POC Glucose 105 mg/dL (70-105) 08/10/21 17:49 Calcium 9.0 mg/dL (8.4-10.2) 08/11/21 05:53 Phosphorus 4.30 mg/dL (2.5-4.5) D 08/11/21 05:53 Magnesium 1.90 mg/dL (1.7-2.3) 08/11/21 05:53 Total Bilirubin 0.70 mg/dL (0.1-1.2) 08/06/21 16:35 AST 18 units/L (5-40) 08/06/21 16:35 ALT 7 units/L (7-56) 08/06/21 16:35 Alkaline Phosphatase 102 units/L (35-129) 08/06/21 16:35 Troponin T 0.183 ng/mL (0.00-0.029) H* D 08/05/21 18:56 Total Protein 6.2 g/dL (6.3-8.2) L 08/06/21 16:35 Albumin 3.2 g/dL (3.9-5) L 08/06/21 16:35 Albumin/Globulin Ratio 1.1 % 08/06/21 16:35 Triglycerides 129 mg/dL (2-149) 08/09/21 04:33 Cholesterol 170 mg/dL (50-199) 08/05/21 15:55 LDL Cholesterol Direct 106 mg/dL (50-130) 08/05/21 15:55 HDL Cholesterol 32 mg/dL (40-59) L 08/05/21 15:55 Cholesterol/HDL Ratio 5.31 % 08/05/21 15:55 TSH 7.070 mlU/mL (0.270-4.200) H 08/07/21 13:30 Arterial Blood Glucose 85 mg/dL (65-95) 08/10/21 04:55 Arterial Blood Ionized Calcium 4.7 mg/dL (4.6-5.3) 08/10/21 04:55 Coronavirus (PCR) Negative (Negative) 08/07/21 Unknown Hepatitis A IgM Ab Non-reactive (NonReactive) 08/08/21 04:26 Hep Bs Antigen Nonreactive (Negative) 08/08/21 04:26 Hep B Core IgM Ab Non-reactive (NonReactive) 08/08/21 04:26 Hepatitis C Antibody Non-reactive (NonReactive) 08/08/21 04:26 Blood Type O POSITIVE 08/06/21 05:30 Antibody Screen Negative 08/06/21 05:30 Crossmatch See Detail 08/06/21 05:30 Microbiology: Microbiology 08/06/21 18:48 Peripheral/Venous Blood Culture - Preliminary NO GROWTH AFTER 4 DAYS 08/06/21 18:48 Peripheral/Venous Blood Culture - Preliminary NO GROWTH AFTER 4 DAYS Active Medications - Current Medications Current Medications: Generic Name Dose Route Start Last Admin Trade Name Freq PRN Reason Stop Dose Admin Acetaminophen 650 mg 08/06/21 16:30 08/06/21 16:30 Acetaminophen 650 Mg Rect Supp SC 650 mg Q6H PRN Administration Pain, Mild (1-3) Albuterol 2.5 mg 08/05/21 20:59 Albuterol 2.5 Mg/3 Ml Nebu IH Q4HRT PRN Shortness Of Breath Lipase/Protease/Amylase 1 each 08/07/21 09:47 Lipase 10,500/Protease 25,000/Amylase 43,750 (Units) Dr Thomas FEEDTUBE PRN PRN For Clogged Feeding Tube Aspirin 81 mg 08/07/21 10:00 08/11/21 10:45 Aspirin 81 Mg Tab Chew PO 81 mg QDAY JODI Administration Atorvastatin Calcium 80 mg 08/05/21 22:00 08/10/21 21:31 Atorvastatin 40 Mg Tab PO 80 mg QHS JODI Administration Clopidogrel Bisulfate 75 mg 08/10/21 10:00 08/11/21 10:45 Clopidogrel 75 Mg Tab PO 75 mg QDAY JODI Administration Dextrose 25 ml 08/06/21 15:08 08/09/21 05:26 Dextrose 50% In Water (25gm) 50 Ml Syringe IV 15 ml Q30MIN PRN Administration Hypoglycemia Protocol Famotidine 10 mg 08/09/21 22:00 08/11/21 10:45 Famotidine 10 Mg Tab PO 10 mg BID JODI Administration Fentanyl 50 mcg 08/05/21 17:25 08/10/21 10:06 Fentanyl 100 Mcg/2 Ml Inj IV 50 mcg Q10MIN PRN Administration ANALGESIA Heparin Sodium (Porcine) 5,000 unit 08/11/21 10:00 08/11/21 10:46 Heparin 5,000 Unit/1 Ml Vial SUB-Q 5,000 unit Q12HR JODI Administration Hydralazine HCl 10 mg 08/06/21 04:21 08/10/21 08:03 Hydralazine 20 Mg/1 Ml Inj IV 10 mg Q6HR PRN Administration Hypertension Hydrophilic Ointment 1 applic 08/05/21 17:25 Lip Therapy Vaseline TP Q2HR PRN Dry Lips Fentanyl Citrate 2,000 mcg in 100 mls @ 3.213 mls/hr 08/05/21 18:00 08/10/21 19:10 Fentanyl Drip Premix IV 0 mcg/kg/hr TITR JODI 0 mls/hr Titration Protocol 1 MCG/KG/HR Propofol 1,000 mg in 100 mls @ 1.928 mls/hr 08/06/21 17:00 08/11/21 06:16 Diprivan 10 Mg/Ml IV Infused TITR JODI Titration Protocol 5 MCG/KG/MIN Sodium Chloride 100 mls @ 999 mls/hr 08/06/21 23:18 Nacl 0.9% IV GLENDY PRN Hypotension Sodium Chloride 100 mls @ 999 mls/hr 08/09/21 18:42 Nacl 0.9% IV GLENDY PRN Hypotension Amiodarone HCl 360 mg/ 200 mls @ 33.333 mls/hr 08/09/21 19:00 08/11/21 06:51 Dextrose IV 0.5 mg/min DIRECT JODI 16.667 mls/hr Administration Protocol 1 MG/MIN Sodium Chloride 100 mls @ 999 mls/hr 08/10/21 13:01 Nacl 0.9% IV GLENDY PRN Hypotension Nicardipine HCl 50 mg/ Sodium 250 mls @ 25 mls/hr 08/10/21 16:00 08/11/21 06:13 Chloride IV 10 mg/hr TITR JODI 50 mls/hr Titration Protocol 5 MG/HR Isosorbide Dinitrate 10 mg 08/10/21 14:00 08/11/21 06:10 Isosorbide Dinitrate 10 Mg Tab PO 10 mg Q8HR JODI Administration Losartan Potassium 25 mg 08/05/21 22:00 08/11/21 10:45 Losartan 25 Mg Tab PO 25 mg BID JODI Administration Metoclopramide HCl 5 mg 08/05/21 21:03 Metoclopramide 10 Mg/2 Ml Inj IV Q6H PRN Nausea And Vomiting Metoprolol Tartrate 50 mg 08/10/21 16:00 08/11/21 08:24 Metoprolol Tartrate 50 Mg Tab PO 50 mg TID JODI Administration Multi-Ingred Cream/Lotion/Oil/Oint 1 applic 08/05/21 17:25 Mineral Oil/Petrolatum, White Ophth Oint 3.5 Gm OU Q4HR PRN Dry Eye(s) Ondansetron HCl 4 mg 08/05/21 21:03 Ondansetron 4 Mg/2 Ml Inj IV Q8H PRN Nausea And Vomiting Oxycodone/Acetaminophen 1 tab 08/05/21 21:03 Oxycodone /Acetaminophen 5-325mg Tab PO Q6H PRN Pain, Moderate (4-6) Senna 8.8 mg 08/07/21 13:00 08/11/21 10:46 Sennosides Oral Liqd 8.8 Mg/5 Ml Oral Liqd FEEDTUBE Not Given BID JODI Simple Syrup 15 ml 08/07/21 09:47 Simple Syrup 15 Ml FEEDTUBE PRN PRN Hypoglycemia Simple Syrup 30 ml 08/07/21 09:47 Simple Syrup 15 Ml FEEDTUBE PRN PRN Hypoglycemia Sodium Bicarbonate 325 mg 08/07/21 09:47 Sodium Bicarbonate 325 Mg Tab FEEDTUBE PRN PRN For Clogged Feeding Tube Sodium Chloride 10 ml 08/05/21 22:00 08/11/21 10:45 Sodium Chloride 0.9% 10 Ml Flush Syringe IV 10 ml BID JODI Administration Sodium Chloride 10 ml 08/05/21 21:03 Sodium Chloride 0.9% 10 Ml Flush Syringe IV PRN PRN LINE FLUSH Nutrition/Malnutrition Assess - Dietary Evaluation Nutrition/Malnutrition Findings: Nutrition Notes Start: 08/07/21 09:12 Freq: Status: Active Protocol: Document 08/09/21 18:21 KALA (Rec: 08/09/21 18:25 KALA [id number]) Nutrition Notes Initial or Follow up Brief Note Current Diet TF-Nepro w/CARBSTEADY @ 32 ml/ hr (since L 08/07). Weight change and time frame No body weight change reported . Weight Status Overweight Subjective/Other Information RD consult for routine F/U on TF tolerance. TF continues without changes. Percent of energy/protein needs met: Prescribed Nepro w/CARBSTEADY @ 32 ml/hr will provide for energy/protein needs (1,403 Kcal/63 g) 100% Kcal; 82% AA, during LOS. #1 Nutrition Diagnosis Inadequate oral intake Diagnosis Progress(for reassessment Continues documentation) Nutrition Intervention Nutrition Support: Continue Nepro w/CARBSTEADY @ 32 ml/hr. Flush: 140 ml water Q 4 hr. Goal #1 Provide at least 75% of energy /protein needs through Enteral Feeding during LOS. Follow-Up By: 08/16/21 Additional Comments Continue monitoring TF tolerance, and BM. <ROBIN CHURCHILL - Last Filed: 08/12/21 18:52> Hospitalist Physical - Constitutional Vitals: Temp Pulse Resp BP Pulse Ox 99.9 F H 70 11 L 173/66 98 08/12/21 16:00 08/12/21 18:00 08/12/21 18:00 08/12/21 18:00 08/12/21 18:00 HEART Score - HEART Score Troponin: Troponin T 0.183 ng/mL (0.00-0.029) H* D 08/05/21 18:56 Results - Labs CBC & Chem 7: 08/12/21 05:23 08/12/21 05:23 Labs: Laboratory Last Values WBC 7.3 K/mm3 (4.5-11.0) 08/12/21 05:23 RBC 3.20 M/mm3 (3.65-5.03) L 08/12/21 05:23 Hgb 8.8 gm/dl (10.1-14.3) L 08/12/21 05:23 Hct 26.7 % (30.3-42.9) L 08/12/21 05:23 MCV 83 fl (79-97) 08/12/21 05:23 MCH 28 pg (28-32) 08/12/21 05:23 MCHC 33 % (30-34) 08/12/21 05:23 RDW 18.6 % (13.2-15.2) H 08/12/21 05:23 Plt Count 224 K/mm3 (140-440) 08/12/21 05:23 Lymph % (Auto) Criminal Psychologist 08/07/21 04:00 Branch % (Auto) Criminal Psychologist 08/11/21 04:00 Eos % (Auto) 2.2 % (0.0-4.3) 08/06/21 16:35 Baso % (Auto) Criminal Psychologist 08/07/21 04:00 Lymph # (Auto) 0.8 K/mm3 (1.2-5.4) L 08/06/21 16:35 Branch # (Auto) 0.7 K/mm3 (0.0-0.8) 08/06/21 16:35 Eos # (Auto) 0.1 K/mm3 (0.0-0.4) 08/06/21 16:35 Baso # (Auto) 0.1 K/mm3 (0.0-0.1) 08/06/21 16:35 Add Manual Diff Complete 08/11/21 04:00 Total Counted 100 08/11/21 04:00 Seg Neutrophils % Criminal Psychologist 08/07/21 04:00 Seg Neuts % (Manual) 76.0 % (40.0-70.0) H 08/11/21 04:00 Band Neutrophils % 2.0 % 08/11/21 04:00 Lymphocytes % (Manual) 8.0 % (13.4-35.0) L 08/11/21 04:00 Reactive Lymphs % (Man) 5.0 % 08/07/21 04:00 Monocytes % (Manual) 13.0 % (0.0-7.3) H 08/11/21 04:00 Eosinophils % (Manual) 1.0 % (0.0-4.3) 08/10/21 04:00 Basophils % (Manual) 4.0 % (0.0-1.8) H 08/07/21 04:00 Metamyelocytes % 1.0 % 08/11/21 04:00 Nucleated RBC % Not Reportable 08/11/21 04:00 Seg Neutrophils # 2.6 K/mm3 (1.8-7.7) 08/06/21 16:35 Seg Neutrophils # Man 5.2 K/mm3 (1.8-7.7) 08/11/21 04:00 Band Neutrophils # 0.1 K/mm3 08/11/21 04:00 Lymphocytes # (Manual) 0.6 K/mm3 (1.2-5.4) L 08/11/21 04:00 Abs React Lymphs (Man) 0.0 K/mm3 08/11/21 04:00 Monocytes # (Manual) 0.9 K/mm3 (0.0-0.8) H 08/11/21 04:00 Eosinophils # (Manual) 0.0 K/mm3 (0.0-0.4) 08/11/21 04:00 Basophils # (Manual) 0.0 K/mm3 (0.0-0.1) 08/11/21 04:00 Metamyelocytes # 0.1 K/mm3 08/11/21 04:00 Myelocytes # 0.0 K/mm3 08/11/21 04:00 Promyelocytes # 0.0 K/mm3 08/11/21 04:00 Blast Cells # 0.0 K/mm3 08/11/21 04:00 WBC Morphology Not Reportable 08/11/21 04:00 WBC Morphology TNR 08/11/21 04:00 Hypersegmented Neuts Not Reportable 08/11/21 04:00 Hyposegmented Neuts Not Reportable 08/11/21 04:00 Hypogranular Neuts Not Reportable 08/11/21 04:00 Smudge Cells Not Reportable 08/11/21 04:00 Toxic Granulation Not Reportable 08/11/21 04:00 Toxic Vacuolation Not Reportable 08/11/21 04:00 Dohle Bodies Not Reportable 08/11/21 04:00 Pelger-Huet Anomaly Not Reportable 08/11/21 04:00 Claudio Rods Not Reportable 08/11/21 04:00 Platelet Estimate Consistent w auto 08/11/21 04:00 Clumped Platelets Not Reportable 08/11/21 04:00 Plt Clumps, EDTA Not Reportable 08/11/21 04:00 Large Platelets Not Reportable 08/11/21 04:00 Giant Platelets Not Reportable 08/11/21 04:00 Platelet Satelliting Not Reportable 08/11/21 04:00 Plt Morphology Comment Not Reportable 08/11/21 04:00 RBC Morphology Not Reportable 08/11/21 04:00 Dimorphic RBCs Not Reportable 08/11/21 04:00 Polychromasia Not Reportable 08/11/21 04:00 Hypochromasia Few 08/11/21 04:00 Poikilocytosis Not Reportable 08/11/21 04:00 Anisocytosis Not Reportable 08/11/21 04:00 Microcytosis Not Reportable 08/11/21 04:00 Macrocytosis Not Reportable 08/11/21 04:00 Spherocytes Not Reportable 08/11/21 04:00 Pappenheimer Bodies Not Reportable 08/11/21 04:00 Sickle Cells Not Reportable 08/11/21 04:00 Target Cells Few 08/11/21 04:00 Tear Drop Cells Not Reportable 08/11/21 04:00 Ovalocytes Not Reportable 08/11/21 04:00 Helmet Cells Not Reportable 08/11/21 04:00 Diaz-Teec Nos Pos Bodies Not Reportable 08/11/21 04:00 Pryor Rings Not Reportable 08/11/21 04:00 [place] Cells Not Reportable 08/11/21 04:00 Bite Cells Not Reportable 08/11/21 04:00 Crenated Cell Not Reportable 08/11/21 04:00 Elliptocytes Not Reportable 08/11/21 04:00 Acanthocytes (Spur) Not Reportable 08/11/21 04:00 Rouleaux Not Reportable 08/11/21 04:00 Hemoglobin C Crystals Not Reportable 08/11/21 04:00 Schistocytes Not Reportable 08/11/21 04:00 Malaria parasites Not Reportable 08/11/21 04:00 Aleks Bodies Not Reportable 08/11/21 04:00 Hem Pathologist Commnt No 08/11/21 04:00 PT 14.2 Sec. (12.2-14.9) 08/06/21 16:35 INR 0.99 (0.87-1.13) 08/06/21 16:35 APTT 37.1 Sec. (24.2-36.6) H 08/06/21 07:26 ABG pH 7.402 (7.320-7.450) 08/10/21 04:55 POC ABG pCO2 37.9 mmHg (32.0-48.0) 08/10/21 04:55 ABG pCO2 41.2 mm Hg 08/09/21 04:30 POC ABG pO2 83.4 mmHg (83-108) 08/10/21 04:55 ABG pO2 91.5 mm Hg (80.0-90.0) H 08/09/21 04:30 POC ABG HCO3 23.1 08/10/21 04:55 ABG HCO3 26.6 mmol/L (20.0-26.0) H 08/09/21 04:30 ABG O2 Saturation 96.0 (0-100) 08/10/21 04:55 ABG O2 Content 12.3 (0.0-44) 08/09/21 04:30 POC ABG Base Excess -1.5 08/10/21 04:55 ABG Base Excess 2.0 mmol/L (-2.0-3.0) 08/09/21 04:30 ABG Hemoglobin 9.6 (12.0-17.5) L 08/10/21 04:55 ABG Oxyhemoglobin 95.3 (94-98) 08/10/21 04:55 ABG Carboxyhemoglobin 1.4 % (0.0-5.0) 08/09/21 04:30 ABG Methemoglobin 0.3 (0.0-1.5) 08/10/21 04:55 ABG Sodium 120.3 mmol/L (136.0-145.0) L 08/10/21 04:55 ABG Potassium 5.2 mmol/L (3.40-4.50) H 08/10/21 04:55 ABG Chloride 88.0 mmol/L (98-107) L 08/10/21 04:55 ABG Glucose 85 mg/dL (65-95) 08/10/21 04:55 Oxyhemoglobin 95.4 % (95.0-99.0) 08/09/21 04:30 Carboxyhemoglobin 0.4 (0.5-1.5) L 08/10/21 04:55 FiO2 25 % 08/09/21 04:30 FiO2 % 25.0 08/10/21 04:55 Sodium 125 mmol/L (137-145) L 08/12/21 05:23 Potassium 4.7 mmol/L (3.6-5.0) 08/12/21 05:23 Chloride 86.6 mmol/L (98-107) L 08/12/21 05:23 Carbon Dioxide 21 mmol/L (22-30) L 08/12/21 05:23 Anion Gap 22 mmol/L 08/12/21 05:23 BUN 34 mg/dL (7-17) H 08/12/21 05:23 Creatinine 5.0 mg/dL (0.6-1.2) H 08/12/21 05:23 Estimated GFR 11 ml/min 08/12/21 05:23 BUN/Creatinine Ratio 7 % 08/12/21 05:23 Glucose 111 mg/dL (65-100) H 08/12/21 05:23 POC Glucose 119 mg/dL (70-105) H 08/12/21 17:56 Calcium 9.3 mg/dL (8.4-10.2) 08/12/21 05:23 Phosphorus 4.20 mg/dL (2.5-4.5) 08/12/21 05:23 Magnesium 2.10 mg/dL (1.7-2.3) 08/12/21 05:23 Total Bilirubin 0.70 mg/dL (0.1-1.2) 08/06/21 16:35 AST 18 units/L (5-40) 08/06/21 16:35 ALT 7 units/L (7-56) 08/06/21 16:35 Alkaline Phosphatase 102 units/L (35-129) 08/06/21 16:35 Troponin T 0.183 ng/mL (0.00-0.029) H* D 08/05/21 18:56 Total Protein 6.2 g/dL (6.3-8.2) L 08/06/21 16:35 Albumin 3.2 g/dL (3.9-5) L 08/06/21 16:35 Albumin/Globulin Ratio 1.1 % 08/06/21 16:35 Triglycerides 129 mg/dL (2-149) 08/09/21 04:33 Cholesterol 170 mg/dL (50-199) 08/05/21 15:55 LDL Cholesterol Direct 106 mg/dL (50-130) 08/05/21 15:55 HDL Cholesterol 32 mg/dL (40-59) L 08/05/21 15:55 Cholesterol/HDL Ratio 5.31 % 08/05/21 15:55 TSH 7.070 mlU/mL (0.270-4.200) H 08/07/21 13:30 Arterial Blood Glucose 85 mg/dL (65-95) 08/10/21 04:55 Arterial Blood Ionized Calcium 4.7 mg/dL (4.6-5.3) 08/10/21 04:55 Coronavirus (PCR) Negative (Negative) 08/07/21 Unknown Hepatitis A IgM Ab Non-reactive (NonReactive) 08/08/21 04:26 Hep Bs Antigen Nonreactive (Negative) 08/08/21 04:26 Hep B Core IgM Ab Non-reactive (NonReactive) 08/08/21 04:26 Hepatitis C Antibody Non-reactive (NonReactive) 08/08/21 04:26 Blood Type O POSITIVE 08/06/21 05:30 Antibody Screen Negative 08/06/21 05:30 Crossmatch See Detail 08/06/21 05:30 Microbiology: Microbiology 08/06/21 18:48 Peripheral/Venous Blood Culture - Final NO GROWTH AFTER 5 DAYS 08/06/21 18:48 Peripheral/Venous Blood Culture - Final NO GROWTH AFTER 5 DAYS Active Medications - Current Medications Current Medications: Generic Name Dose Route Start Last Admin Trade Name Freq PRN Reason Stop Dose Admin Acetaminophen 650 mg 08/06/21 16:30 08/06/21 16:30 Acetaminophen 650 Mg Rect Supp SC 650 mg Q6H PRN Administration Pain, Mild (1-3) Albuterol 2.5 mg 08/05/21 20:59 Albuterol 2.5 Mg/3 Ml Nebu IH Q4HRT PRN Shortness Of Breath Lipase/Protease/Amylase 1 each 08/07/21 09:47 Lipase 10,500/Protease 25,000/Amylase 43,750 (Units) Dr Thomas FEEDTUBE PRN PRN For Clogged Feeding Tube Aspirin 81 mg 08/07/21 10:00 08/12/21 10:38 Aspirin 81 Mg Tab Chew PO 81 mg QDAY JODI Administration Atorvastatin Calcium 80 mg 08/05/21 22:00 08/11/21 22:42 Atorvastatin 40 Mg Tab PO 80 mg QHS JODI Administration Clopidogrel Bisulfate 75 mg 08/10/21 10:00 08/12/21 10:38 Clopidogrel 75 Mg Tab PO 75 mg QDAY JODI Administration Dextrose 25 ml 08/06/21 15:08 08/09/21 05:26 Dextrose 50% In Water (25gm) 50 Ml Syringe IV 15 ml Q30MIN PRN Administration Hypoglycemia Protocol Famotidine 10 mg 08/09/21 22:00 08/12/21 10:38 Famotidine 10 Mg Tab PO 10 mg BID JODI Administration Fentanyl 50 mcg 08/05/21 17:25 08/10/21 10:06 Fentanyl 100 Mcg/2 Ml Inj IV 50 mcg Q10MIN PRN Administration ANALGESIA Heparin Sodium (Porcine) 5,000 unit 08/11/21 10:00 08/12/21 10:38 Heparin 5,000 Unit/1 Ml Vial SUB-Q 5,000 unit Q12HR JODI Administration Hydralazine HCl 10 mg 08/06/21 04:21 08/10/21 08:03 Hydralazine 20 Mg/1 Ml Inj IV 10 mg Q6HR PRN Administration Hypertension Hydralazine HCl 50 mg 08/12/21 14:00 08/12/21 14:07 Hydralazine 25 Mg Tab PO 50 mg Q8HR JODI Administration Hydrophilic Ointment 1 applic 08/05/21 17:25 Lip Therapy Vaseline TP Q2HR PRN Dry Lips Fentanyl Citrate 2,000 mcg in 100 mls @ 3.213 mls/hr 08/05/21 18:00 08/10/21 19:10 Fentanyl Drip Premix IV 0 mcg/kg/hr TITR JODI 0 mls/hr Titration Protocol 1 MCG/KG/HR Propofol 1,000 mg in 100 mls @ 1.928 mls/hr 08/06/21 17:00 08/12/21 14:52 Diprivan 10 Mg/Ml IV 30 mcg/kg/min TITR JODI 11.565 mls/hr Titration Protocol 5 MCG/KG/MIN Amiodarone HCl 360 mg/ 200 mls @ 33.333 mls/hr 08/09/21 19:00 08/12/21 17:57 Dextrose IV 0.5 mg/min DIRECT JODI 16.667 mls/hr Administration Protocol 1 MG/MIN Nicardipine HCl 50 mg/ Sodium 250 mls @ 25 mls/hr 08/10/21 16:00 08/12/21 14 :51 Chloride IV 7.5 mg/hr TITR JODI 37.5 mls/hr Administration Protocol 5 MG/HR Sodium Chloride 100 mls @ 999 mls/hr 08/12/21 08:52 Nacl 0.9% IV GLENDY PRN Hypotension Isosorbide Dinitrate 20 mg 08/11/21 14:00 08/12/21 14:07 Isosorbide Dinitrate 20 Mg Tab PO 20 mg Q8HR JODI Administration Losartan Potassium 100 mg 08/12/21 10:00 08/12/21 10:38 Losartan 25 Mg Tab PO 100 mg DAILY JODI Administration Metoclopramide HCl 5 mg 08/05/21 21:03 Metoclopramide 10 Mg/2 Ml Inj IV Q6H PRN Nausea And Vomiting Metoprolol Tartrate 100 mg 08/12/21 12:00 08/12/21 12:14 Metoprolol Tartrate 50 Mg Tab PO 100 mg BID JODI Administration Multi-Ingred Cream/Lotion/Oil/Oint 1 applic 08/05/21 17:25 Mineral Oil/Petrolatum, White Ophth Oint 3.5 Gm OU Q4HR PRN Dry Eye(s) Ondansetron HCl 4 mg 08/05/21 21:03 Ondansetron 4 Mg/2 Ml Inj IV Q8H PRN Nausea And Vomiting Oxycodone/Acetaminophen 1 tab 08/05/21 21:03 Oxycodone /Acetaminophen 5-325mg Tab PO Q6H PRN Pain, Moderate (4-6) Senna 8.8 mg 08/07/21 13:00 08/12/21 10:38 Sennosides Oral Liqd 8.8 Mg/5 Ml Oral Liqd FEEDTUBE 8.8 mg BID JODI Administration Simple Syrup 15 ml 08/07/21 09:47 Simple Syrup 15 Ml FEEDTUBE PRN PRN Hypoglycemia Simple Syrup 30 ml 08/07/21 09:47 Simple Syrup 15 Ml FEEDTUBE PRN PRN Hypoglycemia Sodium Bicarbonate 325 mg 08/07/21 09:47 Sodium Bicarbonate 325 Mg Tab FEEDTUBE PRN PRN For Clogged Feeding Tube Sodium Chloride 10 ml 08/05/21 22:00 08/12/21 10:39 Sodium Chloride 0.9% 10 Ml Flush Syringe IV 10 ml BID JODI Administration Sodium Chloride 10 ml 08/05/21 21:03 Sodium Chloride 0.9% 10 Ml Flush Syringe IV PRN PRN LINE FLUSH Nutrition/Malnutrition Assess - Dietary Evaluation Nutrition/Malnutrition Findings: Nutrition Notes Start: 08/07/21 09:12 Freq: Status: Active Protocol: Document 08/09/21 18:21 KALA (Rec: 08/09/21 18:25 KALA [id number]) Nutrition Notes Initial or Follow up Brief Note Current Diet TF-Nepro w/CARBSTEADY @ 32 ml/ hr (since L 08/07). Weight change and time frame No body weight change reported . Weight Status Overweight Subjective/Other Information RD consult for routine F/U on TF tolerance. TF continues without changes. Percent of energy/protein needs met: Prescribed Nepro w/CARBSTEADY @ 32 ml/hr will provide for energy/protein needs (1,403 Kcal/63 g) 100% Kcal; 82% AA, during LOS. #1 Nutrition Diagnosis Inadequate oral intake Diagnosis Progress(for reassessment Continues documentation) Nutrition Intervention Nutrition Support: Continue Nepro w/CARBSTEADY @ 32 ml/hr. Flush: 140 ml water Q 4 hr. Goal #1 Provide at least 75% of energy /protein needs through Enteral Feeding during LOS. Follow-Up By: 08/16/21 Additional Comments Continue monitoring TF tolerance, and BM.
--- NOTE | 2021-08-11 11:37 | Progress Note ---
Assessment and Plan - Patient Problems (1) Hypokalemia Current Visit: Yes Status: Acute Plan to address problem: levels stable this morning. We will continue to monitor and replete per protocol. (2) Sustained ventricular tachycardia Current Visit: Yes Status: Acute Plan to address problem: intubated, sedated, and has received lidocaine Per cardiology recommendations. Pending transfer to [place] at this time. (3) Anemia Current Visit: Yes Status: Chronic Qualifiers: Anemia type: due to chronic kidney disease Plan to address problem: JANETH therapy with hemodialysis (4) End stage renal disease on dialysis Current Visit: Yes Status: Chronic Plan to address problem: continue on current Thursday, Thursday, Thursday inpatient hemodialysis schedule. (5) Diabetes Current Visit: No Status: Acute Plan to address problem: diabetes management per primary attending. Subjective Date of service: 08/11/21 Principal diagnosis: Recurrent VT Interval history: No acute changes from renal standpoint. Tolerated HD well without any issues. Objective - Vital Signs Vital signs: Vital Signs - 12hr 08/10/21 08/11/21 08/11/21 23:42 00:00 01:00 Temperature 99.1 F Pulse Rate 70 70 Pulse Rate [ 70 From Monitor] Respiratory 11 L 12 Rate Blood Pressure 163/75 166/76 O2 Sat by Pulse 94 96 Oximetry 08/11/21 08/11/21 08/11/21 02:00 03:01 03:25 Temperature Pulse Rate 70 70 70 Pulse Rate [ From Monitor] Respiratory 16 10 L Rate Blood Pressure 162/72 155/66 155/70 O2 Sat by Pulse 96 95 92 Oximetry 08/11/21 08/11/21 08/11/21 03:35 04:00 05:00 Temperature 99.2 F Pulse Rate 70 74 Pulse Rate [ 70 From Monitor] Respiratory 14 16 Rate Blood Pressure 171/78 176/79 O2 Sat by Pulse 94 88 Oximetry 08/11/21 08/11/21 08/11/21 06:00 06:10 07:00 Temperature Pulse Rate 70 70 70 Pulse Rate [ From Monitor] Respiratory 21 23 Rate Blood Pressure 179/77 179/77 172/71 O2 Sat by Pulse 87 90 Oximetry 08/11/21 08/11/21 08/11/21 08:00 08:01 08:21 Temperature 98.1 F Pulse Rate 70 70 Pulse Rate [ 70 From Monitor] Respiratory 24 24 Rate Blood Pressure 167/67 173/66 O2 Sat by Pulse 88 88 88 Oximetry 08/11/21 08/11/21 08:24 10:45 Temperature Pulse Rate 70 70 Pulse Rate [ From Monitor] Respiratory Rate Blood Pressure 173/66 177/72 O2 Sat by Pulse Oximetry - General Appearance General appearance: chronically ill, intubated, frail EENT: ATNC Neck: no JVD Respiratory: Present: Decreased Breath Sounds Cardiology: regular Gastrointestinal: normal Integumentary: no rash Musculoskeletal: deferred - Lab 08/11/21 04:00 08/11/21 05:53 Most recent lab results ABG pH 7.402 (7.320-7.450) 08/10/21 04:55 ABG pCO2 41.2 mm Hg 08/09/21 04:30 ABG pO2 91.5 mm Hg (80.0-90.0) H 08/09/21 04:30 ABG HCO3 26.6 mmol/L (20.0-26.0) H 08/09/21 04:30 ABG O2 Saturation 96.0 (0-100) 08/10/21 04:55 Calcium 9.0 mg/dL (8.4-10.2) 08/11/21 05:53 Phosphorus 4.30 mg/dL (2.5-4.5) D 08/11/21 05:53 Magnesium 1.90 mg/dL (1.7-2.3) 08/11/21 05:53 - Allied health notes Allied health notes reviewed: nursing Medications & Allergies - Medications Allergies/Adverse Reactions: Allergies No Known Allergies Allergy (Unverified 07/10/21 20:57) Home Medications: Home Medications Medication Instructions Recorded Confirmed Last Taken Type Icosapent Ethyl [Vascepa] 2 gm PO BID 07/12/21 07/12/21 Unknown History Losartan [Cozaar] 25 mg PO BID 07/12/21 07/12/21 Unknown History ALBUTEROL NEB's [Proventil 0.083% 2.5 mg IH Q4HRT PRN nebu 07/15/21 Unknown Rx NEBS] Acetaminophen [Acetaminophen 650 mg ID Q4H PRN supp.rect 07/15/21 Unknown Rx SUPPOS] Acetaminophen [Acetaminophen TAB] 650 mg PO Q4H PRN tablet 07/15/21 Unknown Rx Amiodarone [Cordarone 200 MG TAB] 200 mg PO BID tablet 07/15/21 Unknown Rx AtorvaSTATin [Lipitor] 80 mg PO QHS tablet 07/15/21 Unknown Rx Clopidogrel [Plavix] 75 mg PO QDAY tablet 07/15/21 Unknown Rx Dextrose 50% in Water [D50W (25GM) 50 ml IV Q30MIN PRN syringe 07/15/21 Unknown Rx Syringe] Free Water 60 ml PO Q4HR oral.liqd 07/15/21 Unknown Rx Isosorbide Dinitrate [Isordil] 5 mg PO Q8HR tablet 07/15/21 Unknown Rx Lipase/Protease/Amylase [Pancreaze 1 each FEEDTUBE PRN PRN capsule 07/15/21 Unknown Rx 10,500 Unit] Lispro Insulin [HumaLOG] 0 unit SUB-Q Q6HR units 07/15/21 Unknown Rx Metoprolol [Lopressor TAB] 25 mg PO TID tablet 07/15/21 Unknown Rx Simple Syrup 30 ml FEEDTUBE PRN PRN oral.liqd 07/15/21 Unknown Rx hydrALAZINE [Apresoline INJ] 10 mg IV Q6H PRN vial 07/15/21 Unknown Rx Active Medications: Generic Name Dose Route Start Last Admin Trade Name Freq PRN Reason Stop Dose Admin Acetaminophen 650 mg 08/06/21 16:30 08/06/21 16:30 Acetaminophen 650 Mg Rect Supp ID 650 mg Q6H PRN Administration Pain, Mild (1-3) Albuterol 2.5 mg 08/05/21 20:59 Albuterol 2.5 Mg/3 Ml Nebu IH Q4HRT PRN Shortness Of Breath Lipase/Protease/Amylase 1 each 08/07/21 09:47 Lipase 10,500/Protease 25,000/Amylase 43,750 (Units) Dr Thomas FEEDTUBE PRN PRN For Clogged Feeding Tube Aspirin 81 mg 08/07/21 10:00 08/11/21 10:45 Aspirin 81 Mg Tab Chew PO 81 mg QDAY JODI Administration Atorvastatin Calcium 80 mg 08/05/21 22:00 08/10/21 21:31 Atorvastatin 40 Mg Tab PO 80 mg QHS JODI Administration Clopidogrel Bisulfate 75 mg 08/10/21 10:00 08/11/21 10:45 Clopidogrel 75 Mg Tab PO 75 mg QDAY JODI Administration Dextrose 25 ml 08/06/21 15:08 08/09/21 05:26 Dextrose 50% In Water (25gm) 50 Ml Syringe IV 15 ml Q30MIN PRN Administration Hypoglycemia Protocol Famotidine 10 mg 08/09/21 22:00 08/11/21 10:45 Famotidine 10 Mg Tab PO 10 mg BID JODI Administration Fentanyl 50 mcg 08/05/21 17:25 08/10/21 10:06 Fentanyl 100 Mcg/2 Ml Inj IV 50 mcg Q10MIN PRN Administration ANALGESIA Heparin Sodium (Porcine) 5,000 unit 08/11/21 10:00 08/11/21 10:46 Heparin 5,000 Unit/1 Ml Vial SUB-Q 5,000 unit Q12HR JODI Administration Hydralazine HCl 10 mg 08/06/21 04:21 08/10/21 08:03 Hydralazine 20 Mg/1 Ml Inj IV 10 mg Q6HR PRN Administration Hypertension Hydralazine HCl 25 mg 08/11/21 14:00 Hydralazine 25 Mg Tab PO Q8HR JODI Hydrophilic Ointment 1 applic 08/05/21 17:25 Lip Therapy Vaseline TP Q2HR PRN Dry Lips Fentanyl Citrate 2,000 mcg in 100 mls @ 3.213 mls/hr 08/05/21 18:00 08/10/21 19:10 Fentanyl Drip Premix IV 0 mcg/kg/hr TITR JODI 0 mls/hr Titration Protocol 1 MCG/KG/HR Propofol 1,000 mg in 100 mls @ 1.928 mls/hr 08/06/21 17:00 08/11/21 06:16 Diprivan 10 Mg/Ml IV Infused TITR JODI Titration Protocol 5 MCG/KG/MIN Sodium Chloride 100 mls @ 999 mls/hr 08/06/21 23:18 Nacl 0.9% IV GLENDY PRN Hypotension Sodium Chloride 100 mls @ 999 mls/hr 08/09/21 18:42 Nacl 0.9% IV GLENDY PRN Hypotension Amiodarone HCl 360 mg/ 200 mls @ 33.333 mls/hr 08/09/21 19:00 08/11/21 06:51 Dextrose IV 0.5 mg/min DIRECT JODI 16.667 mls/hr Administration Protocol 1 MG/MIN Sodium Chloride 100 mls @ 999 mls/hr 08/10/21 13:01 Nacl 0.9% IV GLENDY PRN Hypotension Nicardipine HCl 50 mg/ Sodium 250 mls @ 25 mls/hr 08/10/21 16:00 08/11/21 11:08 Chloride IV 7.5 mg/hr TITR JODI 37.5 mls/hr Administration Protocol 5 MG/HR Isosorbide Dinitrate 20 mg 08/11/21 14:00 Isosorbide Dinitrate 20 Mg Tab PO Q8HR JODI Losartan Potassium 25 mg 08/05/21 22:00 08/11/21 10:45 Losartan 25 Mg Tab PO 25 mg BID JODI Administration Metoclopramide HCl 5 mg 08/05/21 21:03 Metoclopramide 10 Mg/2 Ml Inj IV Q6H PRN Nausea And Vomiting Metoprolol Tartrate 50 mg 08/10/21 16:00 08/11/21 08:24 Metoprolol Tartrate 50 Mg Tab PO 50 mg TID JODI Administration Multi-Ingred Cream/Lotion/Oil/Oint 1 applic 08/05/21 17:25 Mineral Oil/Petrolatum, White Ophth Oint 3.5 Gm OU Q4HR PRN Dry Eye(s) Ondansetron HCl 4 mg 08/05/21 21:03 Ondansetron 4 Mg/2 Ml Inj IV Q8H PRN Nausea And Vomiting Oxycodone/Acetaminophen 1 tab 08/05/21 21:03 Oxycodone /Acetaminophen 5-325mg Tab PO Q6H PRN Pain, Moderate (4-6) Senna 8.8 mg 08/07/21 13:00 08/11/21 10:46 Sennosides Oral Liqd 8.8 Mg/5 Ml Oral Liqd FEEDTUBE Not Given BID JODI Simple Syrup 15 ml 08/07/21 09:47 Simple Syrup 15 Ml FEEDTUBE PRN PRN Hypoglycemia Simple Syrup 30 ml 08/07/21 09:47 Simple Syrup 15 Ml FEEDTUBE PRN PRN Hypoglycemia Sodium Bicarbonate 325 mg 08/07/21 09:47 Sodium Bicarbonate 325 Mg Tab FEEDTUBE PRN PRN For Clogged Feeding Tube Sodium Chloride 10 ml 08/05/21 22:00 08/11/21 10:45 Sodium Chloride 0.9% 10 Ml Flush Syringe IV 10 ml BID JODI Administration Sodium Chloride 10 ml 12/27/21 21:03 Sodium Chloride 0.9% 10 Ml Flush Syringe IV PRN PRN LINE FLUSH
[2021-08-11] MEDS: hydrALAZINE 25 MG TAB PO SCH ×2 (13:23→22:42)
[2021-08-11] MEDS: ISOSORBIDE DINITRATE 20 MG TAB PO SCH ×2 (13:23→22:43)
--- NOTE | 2021-08-11 14:24 | Cat Scan Report ---
CT head/brain wo con INDICATION: change in neuro status. TECHNIQUE: All CT scans at this location are performed using CT dose reduction for ALARA by means of automated e xposure control. COMPARISON: Head CT on 07/11/2021 FINDINGS: There is no evidence of hemorrhage, hydrocephalus, brain edema, or mass effect/mass lesion. There are stable chronic infarcts in the left parietal lobe and right cerebellar hemisphere. There is stable m ild global atrophy. IMPRESSION: 1. No acute findings or adverse change from prior. Signer Name: Jarrod Garza MD Signed: 08/11/2021 2:19 PM Workstation Name: [id number]
--- NOTE | 2021-08-11 19:22 | Progress Note ---
Assessment and Plan VT Storm Recurrent AICD Discharges CAD s/p PCI (07/17/2021) Accelerated HTN ESRD on HD Hyponatremia Severe Hypokalemia (POA, resolved) Anemia Thrombocytopenia Type 2 [place] HTN H/o CVA [facility] 07/17/2021 Multivessel CAD - s/p successful IVUS-guided PCI with POBA to ostial LCx ECHO 07/16/2021 SUMMARY/CONCLUSIONS: 1. Left ventricular ejection fraction is 45-50%. 2. Aortic valve is moderately calcified and tricuspid. 3. Moderately dilated left atrium. 4. Mild aortic stenosis. 5. Dilated inferior vena cava, with respiratory size variation greater than 50%. 6. Trivial pericardial effusion. 7. Mildly increased left ventricular wall thickness. 8. Mild tricuspid regurgitation. 9. Mild mitral valve regurgitation. 10. Moderate mitral annular calcification. 11. The aortic valve max velocity is 2.38 m/s. The peak gradient is 22.7 mmHg with a mean gradient of 11.0 mmHg, the left ventricle outflow tract measures 2.00 cm. SARAH (VTI) is 1.40 cm with AVAi (VTI) of 0.96 cm/m. 12. The estimated right ventricular systolic pressure is mildly elevated right ventricular systolic pressure at 43.8 mmHg. Plan: Awaiting transfer to [place] for EPS/possible VT ablation pending bed availability. Continue IV Amio gtt @ 0.5mg/min. Continue Lopressor to 50mg TID. Optimize antihypertensive regimen. Increase Losartan to 100mg daily. Wean Cardene gtt as tolerated. Continue DAPT in light of recent PCI. Plavix was previously held in the setting of severe epistaxis per RN. Closely monitor H/H & Plts. Continue high-intensity statin. Pt seen in conjunction with Dr. Padilla, who agrees with the assessment and plan of care. - Patient Problems (1) VT (ventricular tachycardia) Current Visit: Yes Status: Acute (2) AICD (automatic cardioverter/defibrillator) present Current Visit: Yes Status: Chronic Subjective Date of service: 08/11/21 Principal diagnosis: Recurrent VT Interval history: BP remains elevated on Cardene gtt. Atrial-paced 70 on tele, no events over night. Objective Last Vital Signs Temp 97.8 F 08/11/21 16:00 Pulse 70 08/11/21 19:01 Resp 17 08/11/21 19:01 BP 169/69 08/11/21 19:01 Pulse Ox 96 08/11/21 19:01 - Physical Examination General: Other (intubated) HEENT: Positive: Normocephaly, Mucus Membranes Dry Neck: Positive: neck supple, trachea midline. Negative: JVD/HJR Cardiac: Positive: Reg Rate and Rhythm Lungs: Positive: Ventilated Respirations Neuro: Positive: Other (intubated) Abdomen: Positive: Soft Skin: Negative: Rash Musculoskeletal: No Fluid Collection Extremities: Present: lower extr. pulses. Absent: edema - Labs and Meds CBC 08/11/21 Range/Units 04:00 WBC 6.9 (4.5-11.0) K/mm3 RBC 3.50 L (3.65-5.03) M/mm3 Hgb 9.2 L (10.1-14.3) gm/dl Hct 29.0 L (30.3-42.9) % Plt Count 235 (140-440) K/mm3 Comprehensive Metabolic Panel 08/11/21 Range/Units 05:53 Sodium 128 L (137-145) mmol/L Potassium 4.6 (3.6-5.0) mmol/L Chloride 90.3 L (98-107) mmol/L Carbon Dioxide 22 (22-30) mmol/L BUN 24 H (7-17) mg/dL Creatinine 4.3 H (0.6-1.2) mg/dL Glucose 135 H (65-100) mg/dL Calcium 9.0 (8.4-10.2) mg/dL - Imaging and Cardiology EKG: report reviewed, image reviewed Echo: report reviewed Cardiac cath: report reviewed - Telemetry EKG Rhythm: Paced - EKG Sinus rhythms and dysrhythmias: sinus rhythm Repolarization changes or abnormalities: Q-T interval prolongation Myocardial infarction: anterior IL (old age or i Pacemaker: atrial pacing w/capture - Allied health notes Allied health notes reviewed: nursing
[2021-08-11] MEDS ORDERED: LOSARTAN 50 MG TAB PO ONE (19:30)
--- NOTE | 2021-08-11 20:47 | Progress Note ---
Subjective Date of service: 08/11/21 Principal diagnosis: Recurrent VT Interval history: Cardene drip continues for HTN. Propofol back to 25mcg, off Fentanyl. Unresponsive on ventilator. Active Medications Acetaminophen (Acetaminophen 650 Mg Rect Supp) 650 mg NE Q6H PRN PRN Reason: Pain, Mild (1-3) Last Admin: 08/06/21 16:30 Dose: 650 mg Documented by: Albuterol (Albuterol 2.5 Mg/3 Ml Nebu) 2.5 mg IH Q4HRT PRN PRN Reason: Shortness Of Breath Lipase/Protease/Amylase (Lipase 10,500/Protease 25,000/Amylase 43,750 (Units) Dr Thomas) 1 each FEEDTUBE PRN PRN PRN Reason: For Clogged Feeding Tube Aspirin (Aspirin 81 Mg Tab Chew) 81 mg PO QDAY [facility] Last Admin: 08/11/21 10:45 Dose: 81 mg Documented by: Atorvastatin Calcium (Atorvastatin 40 Mg Tab) 80 mg PO QHS [facility] Last Admin: 08/10/21 21:31 Dose: 80 mg Documented by: Clopidogrel Bisulfate (Clopidogrel 75 Mg Tab) 75 mg PO QDAY [facility] Last Admin: 08/11/21 10:45 Dose: 75 mg Documented by: Dextrose (Dextrose 50% In Water (25gm) 50 Ml Syringe) 25 ml IV Q30MIN PRN; Protocol PRN Reason: Hypoglycemia Last Admin: 08/09/21 05:26 Dose: 15 ml Documented by: Famotidine (Famotidine 10 Mg Tab) 10 mg PO BID [facility] Last Admin: 08/11/21 10:45 Dose: 10 mg Documented by: Fentanyl (Fentanyl 100 Mcg/2 Ml Inj) 50 mcg IV Q10MIN PRN PRN Reason: ANALGESIA Last Admin: 08/10/21 10:06 Dose: 50 mcg Documented by: Heparin Sodium (Porcine) (Heparin 5,000 Unit/1 Ml Vial) 5,000 unit SUB-Q Q12HR [facility] Last Admin: 08/11/21 10:46 Dose: 5,000 unit Documented by: Hydralazine HCl (Hydralazine 20 Mg/1 Ml Inj) 10 mg IV Q6HR PRN PRN Reason: Hypertension Last Admin: 08/10/21 08:03 Dose: 10 mg Documented by: Hydralazine HCl (Hydralazine 25 Mg Tab) 25 mg PO Q8HR [facility] Last Admin: 08/11/21 13:23 Dose: 25 mg Documented by: Hydrophilic Ointment (Lip Therapy Vaseline) 1 applic TP Q2HR PRN PRN Reason: Dry Lips Fentanyl Citrate (Fentanyl Drip Premix) 2,000 mcg in 100 mls @ 3.213 mls/hr IV TITR JODI; Protocol Last Titration: 08/10/21 19:10 Dose: 0 mcg/kg/hr, 0 mls/hr Documented by: Propofol (Diprivan 10 Mg/Ml) 1,000 mg in 100 mls @ 1.928 mls/hr IV TITR JODI; Protocol Last Titration: 08/11/21 17:30 Dose: 25 mcg/kg/min, 9.638 mls/hr Documented by: Sodium Chloride (Nacl 0.9%) 100 mls @ 999 mls/hr IV GLENDY PRN PRN Reason: Hypotension Sodium Chloride (Nacl 0.9%) 100 mls @ 999 mls/hr IV GLENDY PRN PRN Reason: Hypotension Amiodarone HCl 360 mg/ (Dextrose) 200 mls @ 33.333 mls/hr IV DIRECT JODI; Protocol Last Admin: 08/11/21 19:13 Dose: 0.5 mg/min, 16.667 mls/hr Documented by: Sodium Chloride (Nacl 0.9%) 100 mls @ 999 mls/hr IV GLENDY PRN PRN Reason: Hypotension Nicardipine HCl 50 mg/ Sodium (Chloride) 250 mls @ 25 mls/hr IV TITR JODI; Protocol Last Admin: 08/11/21 19:13 Dose: 7.5 mg/hr, 37.5 mls/hr Documented by: Isosorbide Dinitrate (Isosorbide Dinitrate 20 Mg Tab) 20 mg PO Q8HR JODI Last Admin: 08/11/21 13:23 Dose: 20 mg Documented by: Losartan Potassium (Losartan 25 Mg Tab) 100 mg PO DAILY [facility] Metoclopramide HCl (Metoclopramide 10 Mg/2 Ml Inj) 5 mg IV Q6H PRN PRN Reason: Nausea And Vomiting Metoprolol Tartrate (Metoprolol Tartrate 50 Mg Tab) 50 mg PO TID [facility] Last Admin: 08/11/21 13:22 Dose: 50 mg Documented by: Multi-Ingred Cream/Lotion/Oil/Oint (Mineral Oil/Petrolatum, White Ophth Oint 3.5 Gm) 1 applic OU Q4HR PRN PRN Reason: Dry Eye(s) Ondansetron HCl (Ondansetron 4 Mg/2 Ml Inj) 4 mg IV Q8H PRN PRN Reason: Nausea And Vomiting Oxycodone/Acetaminophen (Oxycodone /Acetaminophen 5-325mg Tab) 1 tab PO Q6H PRN PRN Reason: Pain, Moderate (4-6) Senna (Sennosides Oral Liqd 8.8 Mg/5 Ml Oral Liqd) 8.8 mg FEEDTUBE BID [facility] Last Admin: 08/11/21 10:46 Dose: Not Given Documented by: Simple Syrup (Simple Syrup 15 Ml) 15 ml FEEDTUBE PRN PRN PRN Reason: Hypoglycemia Simple Syrup (Simple Syrup 15 Ml) 30 ml FEEDTUBE PRN PRN PRN Reason: Hypoglycemia Sodium Bicarbonate (Sodium Bicarbonate 325 Mg Tab) 325 mg FEEDTUBE PRN PRN PRN Reason: For Clogged Feeding Tube Sodium Chloride (Sodium Chloride 0.9% 10 Ml Flush Syringe) 10 ml IV BID [facility] Last Admin: 08/11/21 10:45 Dose: 10 ml Documented by: Sodium Chloride (Sodium Chloride 0.9% 10 Ml Flush Syringe) 10 ml IV PRN PRN PRN Reason: LINE FLUSH Objective Vital Signs - 12hr 08/11/21 08/11/21 08/11/21 09:01 10:00 10:45 Temperature Pulse Rate 70 70 70 Pulse Rate [ From Monitor] Respiratory 10 L 16 Rate Blood Pressure 171/75 171/70 177/72 O2 Sat by Pulse 98 98 Oximetry 08/11/21 08/11/21 08/11/21 11:01 12:00 12:01 Temperature 98.1 F Pulse Rate 70 70 70 Pulse Rate [ 70 From Monitor] Respiratory 15 16 16 Rate Blood Pressure 172/73 141/72 O2 Sat by Pulse 98 99 99 Oximetry 08/11/21 08/11/21 08/11/21 13:00 13:01 13:22 Temperature Pulse Rate 70 70 70 Pulse Rate [ From Monitor] Respiratory 18 Rate Blood Pressure 168/70 172/68 168/72 O2 Sat by Pulse 100 97 Oximetry 08/11/21 08/11/21 08/11/21 13:23 13:45 14:17 Temperature Pulse Rate 70 70 Pulse Rate [ From Monitor] Respiratory 21 Rate Blood Pressure 168/72 178/78 O2 Sat by Pulse 99 99 Oximetry 08/11/21 08/11/21 08/11/21 15:01 16:00 16:01 Temperature 97.8 F Pulse Rate 70 70 70 Pulse Rate [ 70 From Monitor] Respiratory 20 25 H 25 H Rate Blood Pressure 193/81 191/77 O2 Sat by Pulse 96 97 96 Oximetry 08/11/21 08/11/21 08/11/21 16:46 17:01 18:01 Temperature Pulse Rate 70 70 70 Pulse Rate [ From Monitor] Respiratory 11 L 22 Rate Blood Pressure 192/75 182/77 184/69 O2 Sat by Pulse 98 98 95 Oximetry 08/11/21 08/11/21 08/11/21 19:01 19:39 19:53 Temperature 99.7 F H Pulse Rate 70 70 Pulse Rate [ From Monitor] Respiratory 17 Rate Blood Pressure 169/69 175/68 O2 Sat by Pulse 96 96 Oximetry Constitutional: other (intubated and sedated) Eyes: non-icteric ENT: other (orally intubated) Neck: supple Effort: normal Ascultation: Bilateral: clear Percussion: Bilateral: not dull Cardiovascular: regular rate and rhythm (no mrg) Gastrointestinal: normoactive bowel sounds, soft, non-tender, non-distended Integumentary: normal Extremities: no cyanosis, no edema, pink and warm Neurologic: unable to assess Psychiatric: other (unable to assess) CBC and BMP: 08/11/21 04:00 08/11/21 05:53 ABG, PT/INR, D-dimer: ABG ABG pH 7.402 (7.320-7.450) 08/10/21 04:55 POC ABG pCO2 37.9 mmHg (32.0-48.0) 08/10/21 04:55 ABG pCO2 41.2 mm Hg 08/09/21 04:30 POC ABG pO2 83.4 mmHg (83-108) 08/10/21 04:55 ABG pO2 91.5 mm Hg (80.0-90.0) H 08/09/21 04:30 POC ABG HCO3 23.1 08/10/21 04:55 ABG O2 Saturation 96.0 (0-100) 08/10/21 04:55 PT/INR, D-dimer PT 14.2 Sec. (12.2-14.9) 08/06/21 16:35 INR 0.99 (0.87-1.13) 08/06/21 16:35 Abnormal lab findings: Abnormal Labs 08/05/21 08/05/21 08/05/21 15:55 15:55 18:50 WBC 3.7 L RBC 2.98 L Hgb 7.5 L Hct 23.8 L MCH 25 L RDW 18.9 H Plt Count 134 L Lymph % (Auto) [place] % (Auto) Lymph # (Auto) Seg Neutrophils % Seg Neuts % (Manual) Lymphocytes % (Manual) Monocytes % (Manual) 18.0 H Eosinophils % (Manual) Basophils % (Manual) 2.0 H Seg Neutrophils # Seg Neutrophils # Man Lymphocytes # (Manual) 0.9 L Monocytes # (Manual) APTT ABG pH 7.523 H POC ABG pO2 ABG pO2 47.1 L ABG HCO3 34.6 H ABG O2 Saturation 85.4 L ABG Base Excess 10.8 H ABG Hemoglobin 7.3 L ABG Sodium ABG Potassium ABG Chloride ABG Glucose Oxyhemoglobin 83.6 L Carboxyhemoglobin Sodium Potassium 2.7 L* Chloride 93.8 L Carbon Dioxide 33 H BUN Creatinine 2.8 H Glucose 124 H POC Glucose Calcium 8.2 L Phosphorus ALT < 5 L Troponin T 0.126 H* Total Protein Albumin 3.5 L Triglycerides 202 H HDL Cholesterol 32 L TSH Arterial Blood Glucose Crossmatch 08/05/21 08/05/21 08/06/21 18:56 Unknown 04:20 WBC RBC Hgb Hct MCH RDW Plt Count Lymph % (Auto) [place] % (Auto) Lymph # (Auto) Seg Neutrophils % Seg Neuts % (Manual) Lymphocytes % (Manual) Monocytes % (Manual) Eosinophils % (Manual) Basophils % (Manual) Seg Neutrophils # Seg Neutrophils # Man Lymphocytes # (Manual) Monocytes # (Manual) APTT ABG pH 7.575 H 7.606 H* POC ABG pO2 ABG pO2 142.9 H 111.2 H ABG HCO3 33.2 H 33.6 H ABG O2 Saturation ABG Base Excess 10.4 H 11.2 H ABG Hemoglobin 6.6 L 6.8 L ABG Sodium ABG Potassium ABG Chloride ABG Glucose Oxyhemoglobin Carboxyhemoglobin Sodium Potassium Chloride Carbon Dioxide BUN Creatinine Glucose POC Glucose Calcium Phosphorus ALT Troponin T 0.183 H* D Total Protein Albumin Triglycerides HDL Cholesterol TSH Arterial Blood Glucose Crossmatch 08/06/21 08/06/21 08/06/21 04:29 04:29 04:29 WBC 2.5 L RBC 2.70 L Hgb 6.8 L Hct 21.3 L MCH 25 L RDW 18.1 H Plt Count 126 L Lymph % (Auto) 45.0 H [place] % (Auto) 13.6 H Lymph # (Auto) 1.1 L Seg Neutrophils % 37.3 L Seg Neuts % (Manual) Lymphocytes % (Manual) Monocytes % (Manual) Eosinophils % (Manual) Basophils % (Manual) Seg Neutrophils # 0.9 L Seg Neutrophils # Man Lymphocytes # (Manual) Monocytes # (Manual) APTT 38.8 H ABG pH POC ABG pO2 ABG pO2 ABG HCO3 ABG O2 Saturation ABG Base Excess ABG Hemoglobin ABG Sodium ABG Potassium ABG Chloride ABG Glucose Oxyhemoglobin Carboxyhemoglobin Sodium 136 L Potassium 3.0 L Chloride 92.6 L Carbon Dioxide 32 H BUN Creatinine 3.8 H Glucose POC Glucose Calcium Phosphorus ALT Troponin T Total Protein 5.8 L Albumin 3.1 L Triglycerides HDL Cholesterol TSH Arterial Blood Glucose Crossmatch 08/06/21 08/06/21 08/06/21 05:30 07:26 07:26 WBC RBC Hgb 7.0 L Hct 22.5 L MCH RDW Plt Count 127 L Lymph % (Auto) [place] % (Auto) Lymph # (Auto) Seg Neutrophils % Seg Neuts % (Manual) Lymphocytes % (Manual) Monocytes % (Manual) Eosinophils % (Manual) Basophils % (Manual) Seg Neutrophils # Seg Neutrophils # Man Lymphocytes # (Manual) Monocytes # (Manual) APTT 37.1 H ABG pH POC ABG pO2 ABG pO2 ABG HCO3 ABG O2 Saturation ABG Base Excess ABG Hemoglobin ABG Sodium ABG Potassium ABG Chloride ABG Glucose Oxyhemoglobin Carboxyhemoglobin Sodium Potassium Chloride Carbon Dioxide BUN Creatinine Glucose POC Glucose Calcium Phosphorus ALT Troponin T Total Protein Albumin Triglycerides HDL Cholesterol TSH Arterial Blood Glucose Crossmatch See Detail 08/06/21 08/06/21 08/06/21 08:06 14:50 16:03 WBC RBC Hgb Hct MCH RDW Plt Count Lymph % (Auto) [place] % (Auto) Lymph # (Auto) Seg Neutrophils % Seg Neuts % (Manual) Lymphocytes % (Manual) Monocytes % (Manual) Eosinophils % (Manual) Basophils % (Manual) Seg Neutrophils # Seg Neutrophils # Man Lymphocytes # (Manual) Monocytes # (Manual) APTT ABG pH POC ABG pO2 ABG pO2 ABG HCO3 ABG O2 Saturation ABG Base Excess ABG Hemoglobin ABG Sodium ABG Potassium ABG Chloride ABG Glucose Oxyhemoglobin Carboxyhemoglobin Sodium Potassium 3.1 L Chloride 92.4 L Carbon Dioxide 33 H BUN Creatinine 3.9 H Glucose POC Glucose 59 L 121 H Calcium Phosphorus ALT Troponin T Total Protein Albumin Triglycerides HDL Cholesterol TSH Arterial Blood Glucose Crossmatch 08/06/21 08/06/21 08/06/21 16:35 16:35 17:31 WBC 4.2 L RBC 3.27 L Hgb 8.5 L Hct 26.8 L MCH 26 L RDW 18.7 H Plt Count 124 L Lymph % (Auto) [place] % (Auto) 15.5 H Lymph # (Auto) 0.8 L Seg Neutrophils % Seg Neuts % (Manual) Lymphocytes % (Manual) Monocytes % (Manual) Eosinophils % (Manual) Basophils % (Manual) Seg Neutrophils # Seg Neutrophils # Man Lymphocytes # (Manual) Monocytes # (Manual) APTT ABG pH POC ABG pO2 ABG pO2 ABG HCO3 ABG O2 Saturation ABG Base Excess ABG Hemoglobin ABG Sodium ABG Potassium ABG Chloride ABG Glucose Oxyhemoglobin Carboxyhemoglobin Sodium 133 L Potassium Chloride 93.2 L Carbon Dioxide BUN 21 H Creatinine 4.6 H Glucose POC Glucose 62 L Calcium 8.3 L Phosphorus ALT Troponin T Total Protein 6.2 L Albumin 3.2 L Triglycerides HDL Cholesterol TSH Arterial Blood Glucose Crossmatch 08/06/21 08/06/21 08/07/21 18:14 18:22 04:00 WBC 1.0 L* RBC 2.67 L Hgb 7.0 L Hct 21.8 L MCH 26 L RDW 18.7 H Plt Count 82 L Lymph % (Auto) [place] % (Auto) Lymph # (Auto) Seg Neutrophils % Seg Neuts % (Manual) 16.0 L Lymphocytes % (Manual) 60.0 H Monocytes % (Manual) Eosinophils % (Manual) 11.0 H Basophils % (Manual) 4.0 H Seg Neutrophils # Seg Neutrophils # Man 0.2 L Lymphocytes # (Manual) 0.6 L Monocytes # (Manual) APTT ABG pH 7.565 H POC ABG pO2 ABG pO2 113.3 H ABG HCO3 29.4 H ABG O2 Saturation ABG Base Excess 6.9 H ABG Hemoglobin 8.3 L ABG Sodium ABG Potassium ABG Chloride ABG Glucose Oxyhemoglobin Carboxyhemoglobin Sodium Potassium Chloride Carbon Dioxide BUN Creatinine Glucose POC Glucose 148 H Calcium Phosphorus ALT Troponin T Total Protein Albumin Triglycerides HDL Cholesterol TSH Arterial Blood Glucose Crossmatch 08/07/21 08/07/21 08/07/21 04:00 04:25 08:30 WBC RBC Hgb Hct MCH RDW Plt Count Lymph % (Auto) [place] % (Auto) Lymph # (Auto) Seg Neutrophils % Seg Neuts % (Manual) Lymphocytes % (Manual) Monocytes % (Manual) Eosinophils % (Manual) Basophils % (Manual) Seg Neutrophils # Seg Neutrophils # Man Lymphocytes # (Manual) Monocytes # (Manual) APTT ABG pH 7.609 H* 7.479 H POC ABG pO2 ABG pO2 121.4 H 130.2 H ABG HCO3 28.5 H 30.3 H ABG O2 Saturation ABG Base Excess 7.2 H 6.2 H ABG Hemoglobin 10.7 L 8.1 L ABG Sodium ABG Potassium ABG Chloride ABG Glucose Oxyhemoglobin Carboxyhemoglobin Sodium 133 L Potassium 3.2 L D Chloride 93.9 L Carbon Dioxide BUN 23 H Creatinine 4.3 H Glucose POC Glucose Calcium 8.1 L Phosphorus ALT Troponin T Total Protein Albumin Triglycerides HDL Cholesterol TSH Arterial Blood Glucose Crossmatch 08/07/21 08/07/21 08/07/21 13:18 13:30 15:51 WBC RBC Hgb Hct MCH RDW Plt Count Lymph % (Auto) [place] % (Auto) Lymph # (Auto) Seg Neutrophils % Seg Neuts % (Manual) Lymphocytes % (Manual) Monocytes % (Manual) Eosinophils % (Manual) Basophils % (Manual) Seg Neutrophils # Seg Neutrophils # Man Lymphocytes # (Manual) Monocytes # (Manual) APTT ABG pH POC ABG pO2 ABG pO2 ABG HCO3 ABG O2 Saturation ABG Base Excess ABG Hemoglobin ABG Sodium ABG Potassium ABG Chloride ABG Glucose Oxyhemoglobin Carboxyhemoglobin Sodium Potassium Chloride Carbon Dioxide BUN Creatinine Glucose POC Glucose 67 L 58 L Calcium Phosphorus ALT Troponin T Total Protein Albumin Triglycerides HDL Cholesterol TSH 7.070 H Arterial Blood Glucose Crossmatch 08/08/21 08/08/21 08/08/21 04:19 04:26 04:26 WBC RBC Hgb 6.8 L Hct 21.6 L MCH RDW Plt Count 91 L Lymph % (Auto) [place] % (Auto) Lymph # (Auto) Seg Neutrophils % Seg Neuts % (Manual) Lymphocytes % (Manual) Monocytes % (Manual) Eosinophils % (Manual) Basophils % (Manual) Seg Neutrophils # Seg Neutrophils # Man Lymphocytes # (Manual) Monocytes # (Manual) APTT ABG pH 7.545 H POC ABG pO2 ABG pO2 136.1 H ABG HCO3 27.3 H ABG O2 Saturation ABG Base Excess 4.5 H ABG Hemoglobin 6.9 L ABG Sodium ABG Potassium ABG Chloride ABG Glucose Oxyhemoglobin Carboxyhemoglobin Sodium 132 L Potassium Chloride 93.5 L Carbon Dioxide BUN Creatinine 3.7 H Glucose POC Glucose Calcium Phosphorus ALT Troponin T Total Protein Albumin Triglycerides HDL Cholesterol TSH Arterial Blood Glucose Crossmatch 08/08/21 08/08/21 08/08/21 09:45 12:23 18:51 WBC RBC Hgb Hct MCH RDW Plt Count Lymph % (Auto) [place] % (Auto) Lymph # (Auto) Seg Neutrophils % Seg Neuts % (Manual) Lymphocytes % (Manual) Monocytes % (Manual) Eosinophils % (Manual) Basophils % (Manual) Seg Neutrophils # Seg Neutrophils # Man Lymphocytes # (Manual) Monocytes # (Manual) APTT ABG pH 7.471 H POC ABG pO2 71.1 L ABG pO2 ABG HCO3 ABG O2 Saturation ABG Base Excess ABG Hemoglobin ABG Sodium 128.9 L ABG Potassium ABG Chloride 95.0 L ABG Glucose 64 L Oxyhemoglobin Carboxyhemoglobin Sodium Potassium Chloride Carbon Dioxide BUN Creatinine Glucose POC Glucose 58 L 68 L Calcium Phosphorus ALT Troponin T Total Protein Albumin Triglycerides HDL Cholesterol TSH Arterial Blood Glucose 64 L Crossmatch 08/09/21 08/09/21 08/09/21 04:30 04:33 04:33 WBC 2.4 L RBC 3.16 L Hgb 8.3 L Hct 26.5 L MCH 26 L RDW 18.3 H Plt Count 113 L Lymph % (Auto) [place] % (Auto) Lymph # (Auto) Seg Neutrophils % Seg Neuts % (Manual) Lymphocytes % (Manual) Monocytes % (Manual) Eosinophils % (Manual) Basophils % (Manual) Seg Neutrophils # Seg Neutrophils # Man Lymphocytes # (Manual) Monocytes # (Manual) APTT ABG pH POC ABG pO2 ABG pO2 91.5 H ABG HCO3 26.6 H ABG O2 Saturation ABG Base Excess ABG Hemoglobin 9.0 L ABG Sodium ABG Potassium ABG Chloride ABG Glucose Oxyhemoglobin Carboxyhemoglobin Sodium 129 L Potassium Chloride 91.9 L Carbon Dioxide BUN 22 H Creatinine 4.7 H Glucose POC Glucose Calcium Phosphorus ALT Troponin T Total Protein Albumin Triglycerides HDL Cholesterol TSH Arterial Blood Glucose Crossmatch 08/10/21 08/10/21 08/10/21 04:00 04:00 04:55 WBC 3.3 L RBC 3.32 L Hgb 8.9 L Hct 27.6 L MCH 27 L RDW 18.3 H Plt Count Lymph % (Auto) [place] % (Auto) Lymph # (Auto) Seg Neutrophils % Seg Neuts % (Manual) Lymphocytes % (Manual) Monocytes % (Manual) 9.0 H Eosinophils % (Manual) Basophils % (Manual) Seg Neutrophils # Seg Neutrophils # Man Lymphocytes # (Manual) 0.6 L Monocytes # (Manual) APTT ABG pH POC ABG pO2 ABG pO2 ABG HCO3 ABG O2 Saturation ABG Base Excess ABG Hemoglobin 9.6 L ABG Sodium 120.3 L ABG Potassium 5.2 H ABG Chloride 88.0 L ABG Glucose Oxyhemoglobin Carboxyhemoglobin 0.4 L Sodium 123 L Potassium 5.5 H D Chloride 84.8 L Carbon Dioxide BUN 30 H Creatinine 5.5 H Glucose 139 H POC Glucose Calcium Phosphorus 5.90 H ALT Troponin T Total Protein Albumin Triglycerides HDL Cholesterol TSH Arterial Blood Glucose Crossmatch 08/10/21 08/11/21 08/11/21 12:17 04:00 05:53 WBC RBC 3.50 L Hgb 9.2 L Hct 29.0 L MCH 26 L RDW 18.4 H Plt Count Lymph % (Auto) [place] % (Auto) Lymph # (Auto) Seg Neutrophils % Seg Neuts % (Manual) 76.0 H Lymphocytes % (Manual) 8.0 L Monocytes % (Manual) 13.0 H Eosinophils % (Manual) Basophils % (Manual) Seg Neutrophils # Seg Neutrophils # Man Lymphocytes # (Manual) 0.6 L Monocytes # (Manual) 0.9 H APTT ABG pH POC ABG pO2 ABG pO2 ABG HCO3 ABG O2 Saturation ABG Base Excess ABG Hemoglobin ABG Sodium ABG Potassium ABG Chloride ABG Glucose Oxyhemoglobin Carboxyhemoglobin Sodium 128 L Potassium Chloride 90.3 L Carbon Dioxide BUN 24 H Creatinine 4.3 H Glucose 135 H POC Glucose 142 H Calcium Phosphorus ALT Troponin T Total Protein Albumin Triglycerides HDL Cholesterol TSH Arterial Blood Glucose Crossmatch 08/11/21 16:39 WBC RBC Hgb Hct MCH RDW Plt Count Lymph % (Auto) [place] % (Auto) Lymph # (Auto) Seg Neutrophils % Seg Neuts % (Manual) Lymphocytes % (Manual) Monocytes % (Manual) Eosinophils % (Manual) Basophils % (Manual) Seg Neutrophils # Seg Neutrophils # Man Lymphocytes # (Manual) Monocytes # (Manual) APTT ABG pH POC ABG pO2 ABG pO2 ABG HCO3 ABG O2 Saturation ABG Base Excess ABG Hemoglobin ABG Sodium ABG Potassium ABG Chloride ABG Glucose Oxyhemoglobin Carboxyhemoglobin Sodium Potassium Chloride Carbon Dioxide BUN Creatinine Glucose POC Glucose 112 H Calcium Phosphorus ALT Troponin T Total Protein Albumin Triglycerides HDL Cholesterol TSH Arterial Blood Glucose Crossmatch Allied health notes reviewed: nursing
--- NOTE | 2021-08-11 20:49 | Progress Note ---
Assessment and Plan Imp: 1. Sustained VT 2. ICMP/CAD 3. Acute respiratory failure, hypoxia 4. ESRD 5. Hypokalemia 6. Pancytopenia, better Rec: 1. Amiodarone drip 2. Leaving on vent pending transfer to [facility], but okay with SAT/SBT 3. HD per renal 4. K repleted 5. EEG for involuntary movements of legs; needs daily SAT; CT head negative 6. Pepcid, SCDs, TFs 7. Cardene drip for BP control 8. CCt 31 minutes; prognosis is guarded; no family present Subjective Date of service: 08/11/21 Principal diagnosis: Recurrent VT Interval history: Cardene drip continues for HTN. Propofol back to 25mcg, off Fentanyl. Unresponsive on ventilator. Active Medications Acetaminophen (Acetaminophen 650 Mg Rect Supp) 650 mg TX Q6H PRN PRN Reason: Pain, Mild (1-3) Last Admin: 08/06/21 16:30 Dose: 650 mg Documented by: Albuterol (Albuterol 2.5 Mg/3 Ml Nebu) 2.5 mg IH Q4HRT PRN PRN Reason: Shortness Of Breath Lipase/Protease/Amylase (Lipase 10,500/Protease 25,000/Amylase 43,750 (Units) Dr Cap) 1 each FEEDTUBE PRN PRN PRN Reason: For Clogged Feeding Tube Aspirin (Aspirin 81 Mg Tab Chew) 81 mg PO QDAY [facility] Last Admin: 08/11/21 10:45 Dose: 81 mg Documented by: Atorvastatin Calcium (Atorvastatin 40 Mg Tab) 80 mg PO QHS [facility] Last Admin: 08/10/21 21:31 Dose: 80 mg Documented by: Clopidogrel Bisulfate (Clopidogrel 75 Mg Tab) 75 mg PO QDAY [facility] Last Admin: 08/11/21 10:45 Dose: 75 mg Documented by: Dextrose (Dextrose 50% In Water (25gm) 50 Ml Syringe) 25 ml IV Q30MIN PRN; Protocol PRN Reason: Hypoglycemia Last Admin: 08/09/21 05:26 Dose: 15 ml Documented by: Famotidine (Famotidine 10 Mg Tab) 10 mg PO BID [facility] Last Admin: 08/11/21 10:45 Dose: 10 mg Documented by: Fentanyl (Fentanyl 100 Mcg/2 Ml Inj) 50 mcg IV Q10MIN PRN PRN Reason: ANALGESIA Last Admin: 08/10/21 10:06 Dose: 50 mcg Documented by: Heparin Sodium (Porcine) (Heparin 5,000 Unit/1 Ml Vial) 5,000 unit SUB-Q Q12HR JODI Last Admin: 08/11/21 10:46 Dose: 5,000 unit Documented by: Hydralazine HCl (Hydralazine 20 Mg/1 Ml Inj) 10 mg IV Q6HR PRN PRN Reason: Hypertension Last Admin: 08/10/21 08:03 Dose: 10 mg Documented by: Hydralazine HCl (Hydralazine 25 Mg Tab) 25 mg PO Q8HR JODI Last Admin: 08/11/21 13:23 Dose: 25 mg Documented by: Hydrophilic Ointment (Lip Therapy Vaseline) 1 applic TP Q2HR PRN PRN Reason: Dry Lips Fentanyl Citrate (Fentanyl Drip Premix) 2,000 mcg in 100 mls @ 3.213 mls/hr IV TITR JODI; Protocol Last Titration: 08/10/21 19:10 Dose: 0 mcg/kg/hr, 0 mls/hr Documented by: Propofol (Diprivan 10 Mg/Ml) 1,000 mg in 100 mls @ 1.928 mls/hr IV TITR JODI; Protocol Last Titration: 08/11/21 17:30 Dose: 25 mcg/kg/min, 9.638 mls/hr Documented by: Sodium Chloride (Nacl 0.9%) 100 mls @ 999 mls/hr IV GLENDY PRN PRN Reason: Hypotension Sodium Chloride (Nacl 0.9%) 100 mls @ 999 mls/hr IV GLENDY PRN PRN Reason: Hypotension Amiodarone HCl 360 mg/ (Dextrose) 200 mls @ 33.333 mls/hr IV DIRECT JODI; Protocol Last Admin: 08/11/21 19:13 Dose: 0.5 mg/min, 16.667 mls/hr Documented by: Sodium Chloride (Nacl 0.9%) 100 mls @ 999 mls/hr IV GLENDY PRN PRN Reason: Hypotension Nicardipine HCl 50 mg/ Sodium (Chloride) 250 mls @ 25 mls/hr IV TITR JOID; Protocol Last Admin: 08/11/21 19:13 Dose: 7.5 mg/hr, 37.5 mls/hr Documented by: Isosorbide Dinitrate (Isosorbide Dinitrate 20 Mg Tab) 20 mg PO Q8HR [facility] Last Admin: 08/11/21 13:23 Dose: 20 mg Documented by: Losartan Potassium (Losartan 25 Mg Tab) 100 mg PO DAILY [facility] Metoclopramide HCl (Metoclopramide 10 Mg/2 Ml Inj) 5 mg IV Q6H PRN PRN Reason: Nausea And Vomiting Metoprolol Tartrate (Metoprolol Tartrate 50 Mg Tab) 50 mg PO TID [facility] Last Admin: 08/11/21 13:22 Dose: 50 mg Documented by: Multi-Ingred Cream/Lotion/Oil/Oint (Mineral Oil/Petrolatum, White Ophth Oint 3.5 Gm) 1 applic OU Q4HR PRN PRN Reason: Dry Eye(s) Ondansetron HCl (Ondansetron 4 Mg/2 Ml Inj) 4 mg IV Q8H PRN PRN Reason: Nausea And Vomiting Oxycodone/Acetaminophen (Oxycodone /Acetaminophen 5-325mg Tab) 1 tab PO Q6H PRN PRN Reason: Pain, Moderate (4-6) Senna (Sennosides Oral Liqd 8.8 Mg/5 Ml Oral Liqd) 8.8 mg FEEDTUBE BID [facility] Last Admin: 08/11/21 10:46 Dose: Not Given Documented by: Simple Syrup (Simple Syrup 15 Ml) 15 ml FEEDTUBE PRN PRN PRN Reason: Hypoglycemia Simple Syrup (Simple Syrup 15 Ml) 30 ml FEEDTUBE PRN PRN PRN Reason: Hypoglycemia Sodium Bicarbonate (Sodium Bicarbonate 325 Mg Tab) 325 mg FEEDTUBE PRN PRN PRN Reason: For Clogged Feeding Tube Sodium Chloride (Sodium Chloride 0.9% 10 Ml Flush Syringe) 10 ml IV BID [facility] Last Admin: 08/11/21 10:45 Dose: 10 ml Documented by: Sodium Chloride (Sodium Chloride 0.9% 10 Ml Flush Syringe) 10 ml IV PRN PRN PRN Reason: LINE FLUSH Objective Vital Signs - 12hr 08/11/21 08/11/21 08/11/21 09:01 10:00 10:45 Temperature Pulse Rate 70 70 70 Pulse Rate [ From Monitor] Respiratory 10 L 16 Rate Blood Pressure 171/75 171/70 177/72 O2 Sat by Pulse 98 98 Oximetry 08/11/21 08/11/21 08/11/21 11:01 12:00 12:01 Temperature 98.1 F Pulse Rate 70 70 70 Pulse Rate [ 70 From Monitor] Respiratory 15 16 16 Rate Blood Pressure 172/73 141/72 O2 Sat by Pulse 98 99 99 Oximetry 08/11/21 08/11/21 08/11/21 13:00 13:01 13:22 Temperature Pulse Rate 70 70 70 Pulse Rate [ From Monitor] Respiratory 18 Rate Blood Pressure 168/70 172/68 168/72 O2 Sat by Pulse 100 97 Oximetry 08/11/21 08/11/21 08/11/21 13:23 13:45 14:17 Temperature Pulse Rate 70 70 Pulse Rate [ From Monitor] Respiratory 21 Rate Blood Pressure 168/72 178/78 O2 Sat by Pulse 99 99 Oximetry 08/11/21 08/11/21 08/11/21 15:01 16:00 16:01 Temperature 97.8 F Pulse Rate 70 70 70 Pulse Rate [ 70 From Monitor] Respiratory 20 25 H 25 H Rate Blood Pressure 193/81 191/77 O2 Sat by Pulse 96 97 96 Oximetry 08/11/21 08/11/21 08/11/21 16:46 17:01 18:01 Temperature Pulse Rate 70 70 70 Pulse Rate [ From Monitor] Respiratory 11 L 22 Rate Blood Pressure 192/75 182/77 184/69 O2 Sat by Pulse 98 98 95 Oximetry 08/11/21 08/11/21 08/11/21 19:01 19:39 19:53 Temperature 99.7 F H Pulse Rate 70 70 Pulse Rate [ From Monitor] Respiratory 17 Rate Blood Pressure 169/69 175/68 O2 Sat by Pulse 96 96 Oximetry Constitutional: other (intubated and sedated) Eyes: non-icteric ENT: other (orally intubated) Neck: supple Effort: normal Ascultation: Bilateral: clear Percussion: Bilateral: not dull Cardiovascular: regular rate and rhythm (no mrg) Gastrointestinal: normoactive bowel sounds, soft, non-tender, non-distended Integumentary: normal Extremities: no cyanosis, no edema, pink and warm Neurologic: unable to assess Psychiatric: other (unable to assess) CBC and BMP: 08/11/21 04:00 08/11/21 05:53 ABG, PT/INR, D-dimer: ABG ABG pH 7.402 (7.320-7.450) 08/10/21 04:55 POC ABG pCO2 37.9 mmHg (32.0-48.0) 08/10/21 04:55 ABG pCO2 41.2 mm Hg 08/09/21 04:30 POC ABG pO2 83.4 mmHg (83-108) 08/10/21 04:55 ABG pO2 91.5 mm Hg (80.0-90.0) H 08/09/21 04:30 POC ABG HCO3 23.1 08/10/21 04:55 ABG O2 Saturation 96.0 (0-100) 08/10/21 04:55 PT/INR, D-dimer PT 14.2 Sec. (12.2-14.9) 08/06/21 16:35 INR 0.99 (0.87-1.13) 08/06/21 16:35 Abnormal lab findings: Abnormal Labs 08/05/21 08/05/21 08/05/21 15:55 15:55 18:50 WBC 3.7 L RBC 2.98 L Hgb 7.5 L Hct 23.8 L MCH 25 L RDW 18.9 H Plt Count 134 L Lymph % (Auto) [place] % (Auto) Lymph # (Auto) Seg Neutrophils % Seg Neuts % (Manual) Lymphocytes % (Manual) Monocytes % (Manual) 18.0 H Eosinophils % (Manual) Basophils % (Manual) 2.0 H Seg Neutrophils # Seg Neutrophils # Man Lymphocytes # (Manual) 0.9 L Monocytes # (Manual) APTT ABG pH 7.523 H POC ABG pO2 ABG pO2 47.1 L ABG HCO3 34.6 H ABG O2 Saturation 85.4 L ABG Base Excess 10.8 H ABG Hemoglobin 7.3 L ABG Sodium ABG Potassium ABG Chloride ABG Glucose Oxyhemoglobin 83.6 L Carboxyhemoglobin Sodium Potassium 2.7 L* Chloride 93.8 L Carbon Dioxide 33 H BUN Creatinine 2.8 H Glucose 124 H POC Glucose Calcium 8.2 L Phosphorus ALT < 5 L Troponin T 0.126 H* Total Protein Albumin 3.5 L Triglycerides 202 H HDL Cholesterol 32 L TSH Arterial Blood Glucose Crossmatch 08/05/21 08/05/21 08/06/21 18:56 Unknown 04:20 WBC RBC Hgb Hct MCH RDW Plt Count Lymph % (Auto) [place] % (Auto) Lymph # (Auto) Seg Neutrophils % Seg Neuts % (Manual) Lymphocytes % (Manual) Monocytes % (Manual) Eosinophils % (Manual) Basophils % (Manual) Seg Neutrophils # Seg Neutrophils # Man Lymphocytes # (Manual) Monocytes # (Manual) APTT ABG pH 7.575 H 7.606 H* POC ABG pO2 ABG pO2 142.9 H 111.2 H ABG HCO3 33.2 H 33.6 H ABG O2 Saturation ABG Base Excess 10.4 H 11.2 H ABG Hemoglobin 6.6 L 6.8 L ABG Sodium ABG Potassium ABG Chloride ABG Glucose Oxyhemoglobin Carboxyhemoglobin Sodium Potassium Chloride Carbon Dioxide BUN Creatinine Glucose POC Glucose Calcium Phosphorus ALT Troponin T 0.183 H* D Total Protein Albumin Triglycerides HDL Cholesterol TSH Arterial Blood Glucose Crossmatch 08/06/21 08/06/21 08/06/21 04:29 04:29 04:29 WBC 2.5 L RBC 2.70 L Hgb 6.8 L Hct 21.3 L MCH 25 L RDW 18.1 H Plt Count 126 L Lymph % (Auto) 45.0 H [place] % (Auto) 13.6 H Lymph # (Auto) 1.1 L Seg Neutrophils % 37.3 L Seg Neuts % (Manual) Lymphocytes % (Manual) Monocytes % (Manual) Eosinophils % (Manual) Basophils % (Manual) Seg Neutrophils # 0.9 L Seg Neutrophils # Man Lymphocytes # (Manual) Monocytes # (Manual) APTT 38.8 H ABG pH POC ABG pO2 ABG pO2 ABG HCO3 ABG O2 Saturation ABG Base Excess ABG Hemoglobin ABG Sodium ABG Potassium ABG Chloride ABG Glucose Oxyhemoglobin Carboxyhemoglobin Sodium 136 L Potassium 3.0 L Chloride 92.6 L Carbon Dioxide 32 H BUN Creatinine 3.8 H Glucose POC Glucose Calcium Phosphorus ALT Troponin T Total Protein 5.8 L Albumin 3.1 L Triglycerides HDL Cholesterol TSH Arterial Blood Glucose Crossmatch 08/06/21 08/06/21 08/06/21 05:30 07:26 07:26 WBC RBC Hgb 7.0 L Hct 22.5 L MCH RDW Plt Count 127 L Lymph % (Auto) [place] % (Auto) Lymph # (Auto) Seg Neutrophils % Seg Neuts % (Manual) Lymphocytes % (Manual) Monocytes % (Manual) Eosinophils % (Manual) Basophils % (Manual) Seg Neutrophils # Seg Neutrophils # Man Lymphocytes # (Manual) Monocytes # (Manual) APTT 37.1 H ABG pH POC ABG pO2 ABG pO2 ABG HCO3 ABG O2 Saturation ABG Base Excess ABG Hemoglobin ABG Sodium ABG Potassium ABG Chloride ABG Glucose Oxyhemoglobin Carboxyhemoglobin Sodium Potassium Chloride Carbon Dioxide BUN Creatinine Glucose POC Glucose Calcium Phosphorus ALT Troponin T Total Protein Albumin Triglycerides HDL Cholesterol TSH Arterial Blood Glucose Crossmatch See Detail 08/06/21 08/06/21 08/06/21 08:06 14:50 16:03 WBC RBC Hgb Hct MCH RDW Plt Count Lymph % (Auto) [place] % (Auto) Lymph # (Auto) Seg Neutrophils % Seg Neuts % (Manual) Lymphocytes % (Manual) Monocytes % (Manual) Eosinophils % (Manual) Basophils % (Manual) Seg Neutrophils # Seg Neutrophils # Man Lymphocytes # (Manual) Monocytes # (Manual) APTT ABG pH POC ABG pO2 ABG pO2 ABG HCO3 ABG O2 Saturation ABG Base Excess ABG Hemoglobin ABG Sodium ABG Potassium ABG Chloride ABG Glucose Oxyhemoglobin Carboxyhemoglobin Sodium Potassium 3.1 L Chloride 92.4 L Carbon Dioxide 33 H BUN Creatinine 3.9 H Glucose POC Glucose 59 L 121 H Calcium Phosphorus ALT Troponin T Total Protein Albumin Triglycerides HDL Cholesterol TSH Arterial Blood Glucose Crossmatch 08/06/21 08/06/21 08/06/21 16:35 16:35 17:31 WBC 4.2 L RBC 3.27 L Hgb 8.5 L Hct 26.8 L MCH 26 L RDW 18.7 H Plt Count 124 L Lymph % (Auto) [place] % (Auto) 15.5 H Lymph # (Auto) 0.8 L Seg Neutrophils % Seg Neuts % (Manual) Lymphocytes % (Manual) Monocytes % (Manual) Eosinophils % (Manual) Basophils % (Manual) Seg Neutrophils # Seg Neutrophils # Man Lymphocytes # (Manual) Monocytes # (Manual) APTT ABG pH POC ABG pO2 ABG pO2 ABG HCO3 ABG O2 Saturation ABG Base Excess ABG Hemoglobin ABG Sodium ABG Potassium ABG Chloride ABG Glucose Oxyhemoglobin Carboxyhemoglobin Sodium 133 L Potassium Chloride 93.2 L Carbon Dioxide BUN 21 H Creatinine 4.6 H Glucose POC Glucose 62 L Calcium 8.3 L Phosphorus ALT Troponin T Total Protein 6.2 L Albumin 3.2 L Triglycerides HDL Cholesterol TSH Arterial Blood Glucose Crossmatch 08/06/21 08/06/21 08/07/21 18:14 18:22 04:00 WBC 1.0 L* RBC 2.67 L Hgb 7.0 L Hct 21.8 L MCH 26 L RDW 18.7 H Plt Count 82 L Lymph % (Auto) [place] % (Auto) Lymph # (Auto) Seg Neutrophils % Seg Neuts % (Manual) 16.0 L Lymphocytes % (Manual) 60.0 H Monocytes % (Manual) Eosinophils % (Manual) 11.0 H Basophils % (Manual) 4.0 H Seg Neutrophils # Seg Neutrophils # Man 0.2 L Lymphocytes # (Manual) 0.6 L Monocytes # (Manual) APTT ABG pH 7.565 H POC ABG pO2 ABG pO2 113.3 H ABG HCO3 29.4 H ABG O2 Saturation ABG Base Excess 6.9 H ABG Hemoglobin 8.3 L ABG Sodium ABG Potassium ABG Chloride ABG Glucose Oxyhemoglobin Carboxyhemoglobin Sodium Potassium Chloride Carbon Dioxide BUN Creatinine Glucose POC Glucose 148 H Calcium Phosphorus ALT Troponin T Total Protein Albumin Triglycerides HDL Cholesterol TSH Arterial Blood Glucose Crossmatch 08/07/21 08/07/21 08/07/21 04:00 04:25 08:30 WBC RBC Hgb Hct MCH RDW Plt Count Lymph % (Auto) [place] % (Auto) Lymph # (Auto) Seg Neutrophils % Seg Neuts % (Manual) Lymphocytes % (Manual) Monocytes % (Manual) Eosinophils % (Manual) Basophils % (Manual) Seg Neutrophils # Seg Neutrophils # Man Lymphocytes # (Manual) Monocytes # (Manual) APTT ABG pH 7.609 H* 7.479 H POC ABG pO2 ABG pO2 121.4 H 130.2 H ABG HCO3 28.5 H 30.3 H ABG O2 Saturation ABG Base Excess 7.2 H 6.2 H ABG Hemoglobin 10.7 L 8.1 L ABG Sodium ABG Potassium ABG Chloride ABG Glucose Oxyhemoglobin Carboxyhemoglobin Sodium 133 L Potassium 3.2 L D Chloride 93.9 L Carbon Dioxide BUN 23 H Creatinine 4.3 H Glucose POC Glucose Calcium 8.1 L Phosphorus ALT Troponin T Total Protein Albumin Triglycerides HDL Cholesterol TSH Arterial Blood Glucose Crossmatch 08/07/21 08/07/21 08/07/21 13:18 13:30 15:51 WBC RBC Hgb Hct MCH RDW Plt Count Lymph % (Auto) [place] % (Auto) Lymph # (Auto) Seg Neutrophils % Seg Neuts % (Manual) Lymphocytes % (Manual) Monocytes % (Manual) Eosinophils % (Manual) Basophils % (Manual) Seg Neutrophils # Seg Neutrophils # Man Lymphocytes # (Manual) Monocytes # (Manual) APTT ABG pH POC ABG pO2 ABG pO2 ABG HCO3 ABG O2 Saturation ABG Base Excess ABG Hemoglobin ABG Sodium ABG Potassium ABG Chloride ABG Glucose Oxyhemoglobin Carboxyhemoglobin Sodium Potassium Chloride Carbon Dioxide BUN Creatinine Glucose POC Glucose 67 L 58 L Calcium Phosphorus ALT Troponin T Total Protein Albumin Triglycerides HDL Cholesterol TSH 7.070 H Arterial Blood Glucose Crossmatch 08/08/21 08/08/21 08/08/21 04:19 04:26 04:26 WBC RBC Hgb 6.8 L Hct 21.6 L MCH RDW Plt Count 91 L Lymph % (Auto) [place] % (Auto) Lymph # (Auto) Seg Neutrophils % Seg Neuts % (Manual) Lymphocytes % (Manual) Monocytes % (Manual) Eosinophils % (Manual) Basophils % (Manual) Seg Neutrophils # Seg Neutrophils # Man Lymphocytes # (Manual) Monocytes # (Manual) APTT ABG pH 7.545 H POC ABG pO2 ABG pO2 136.1 H ABG HCO3 27.3 H ABG O2 Saturation ABG Base Excess 4.5 H ABG Hemoglobin 6.9 L ABG Sodium ABG Potassium ABG Chloride ABG Glucose Oxyhemoglobin Carboxyhemoglobin Sodium 132 L Potassium Chloride 93.5 L Carbon Dioxide BUN Creatinine 3.7 H Glucose POC Glucose Calcium Phosphorus ALT Troponin T Total Protein Albumin Triglycerides HDL Cholesterol TSH Arterial Blood Glucose Crossmatch 08/08/21 08/08/21 08/08/21 09:45 12:23 18:51 WBC RBC Hgb Hct MCH RDW Plt Count Lymph % (Auto) [place] % (Auto) Lymph # (Auto) Seg Neutrophils % Seg Neuts % (Manual) Lymphocytes % (Manual) Monocytes % (Manual) Eosinophils % (Manual) Basophils % (Manual) Seg Neutrophils # Seg Neutrophils # Man Lymphocytes # (Manual) Monocytes # (Manual) APTT ABG pH 7.471 H POC ABG pO2 71.1 L ABG pO2 ABG HCO3 ABG O2 Saturation ABG Base Excess ABG Hemoglobin ABG Sodium 128.9 L ABG Potassium ABG Chloride 95.0 L ABG Glucose 64 L Oxyhemoglobin Carboxyhemoglobin Sodium Potassium Chloride Carbon Dioxide BUN Creatinine Glucose POC Glucose 58 L 68 L Calcium Phosphorus ALT Troponin T Total Protein Albumin Triglycerides HDL Cholesterol TSH Arterial Blood Glucose 64 L Crossmatch 08/09/21 08/09/21 08/09/21 04:30 04:33 04:33 WBC 2.4 L RBC 3.16 L Hgb 8.3 L Hct 26.5 L MCH 26 L RDW 18.3 H Plt Count 113 L Lymph % (Auto) [place] % (Auto) Lymph # (Auto) Seg Neutrophils % Seg Neuts % (Manual) Lymphocytes % (Manual) Monocytes % (Manual) Eosinophils % (Manual) Basophils % (Manual) Seg Neutrophils # Seg Neutrophils # Man Lymphocytes # (Manual) Monocytes # (Manual) APTT ABG pH POC ABG pO2 ABG pO2 91.5 H ABG HCO3 26.6 H ABG O2 Saturation ABG Base Excess ABG Hemoglobin 9.0 L ABG Sodium ABG Potassium ABG Chloride ABG Glucose Oxyhemoglobin Carboxyhemoglobin Sodium 129 L Potassium Chloride 91.9 L Carbon Dioxide BUN 22 H Creatinine 4.7 H Glucose POC Glucose Calcium Phosphorus ALT Troponin T Total Protein Albumin Triglycerides HDL Cholesterol TSH Arterial Blood Glucose Crossmatch 08/10/21 08/10/21 08/10/21 04:00 04:00 04:55 WBC 3.3 L RBC 3.32 L Hgb 8.9 L Hct 27.6 L MCH 27 L RDW 18.3 H Plt Count Lymph % (Auto) [place] % (Auto) Lymph # (Auto) Seg Neutrophils % Seg Neuts % (Manual) Lymphocytes % (Manual) Monocytes % (Manual) 9.0 H Eosinophils % (Manual) Basophils % (Manual) Seg Neutrophils # Seg Neutrophils # Man Lymphocytes # (Manual) 0.6 L Monocytes # (Manual) APTT ABG pH POC ABG pO2 ABG pO2 ABG HCO3 ABG O2 Saturation ABG Base Excess ABG Hemoglobin 9.6 L ABG Sodium 120.3 L ABG Potassium 5.2 H ABG Chloride 88.0 L ABG Glucose Oxyhemoglobin Carboxyhemoglobin 0.4 L Sodium 123 L Potassium 5.5 H D Chloride 84.8 L Carbon Dioxide BUN 30 H Creatinine 5.5 H Glucose 139 H POC Glucose Calcium Phosphorus 5.90 H ALT Troponin T Total Protein Albumin Triglycerides HDL Cholesterol TSH Arterial Blood Glucose Crossmatch 08/10/21 08/11/21 08/11/21 12:17 04:00 05:53 WBC RBC 3.50 L Hgb 9.2 L Hct 29.0 L MCH 26 L RDW 18.4 H Plt Count Lymph % (Auto) [place] % (Auto) Lymph # (Auto) Seg Neutrophils % Seg Neuts % (Manual) 76.0 H Lymphocytes % (Manual) 8.0 L Monocytes % (Manual) 13.0 H Eosinophils % (Manual) Basophils % (Manual) Seg Neutrophils # Seg Neutrophils # Man Lymphocytes # (Manual) 0.6 L Monocytes # (Manual) 0.9 H APTT ABG pH POC ABG pO2 ABG pO2 ABG HCO3 ABG O2 Saturation ABG Base Excess ABG Hemoglobin ABG Sodium ABG Potassium ABG Chloride ABG Glucose Oxyhemoglobin Carboxyhemoglobin Sodium 128 L Potassium Chloride 90.3 L Carbon Dioxide BUN 24 H Creatinine 4.3 H Glucose 135 H POC Glucose 142 H Calcium Phosphorus ALT Troponin T Total Protein Albumin Triglycerides HDL Cholesterol TSH Arterial Blood Glucose Crossmatch 08/11/21 16:39 WBC RBC Hgb Hct MCH RDW Plt Count Lymph % (Auto) [place] % (Auto) Lymph # (Auto) Seg Neutrophils % Seg Neuts % (Manual) Lymphocytes % (Manual) Monocytes % (Manual) Eosinophils % (Manual) Basophils % (Manual) Seg Neutrophils # Seg Neutrophils # Man Lymphocytes # (Manual) Monocytes # (Manual) APTT ABG pH POC ABG pO2 ABG pO2 ABG HCO3 ABG O2 Saturation ABG Base Excess ABG Hemoglobin ABG Sodium ABG Potassium ABG Chloride ABG Glucose Oxyhemoglobin Carboxyhemoglobin Sodium Potassium Chloride Carbon Dioxide BUN Creatinine Glucose POC Glucose 112 H Calcium Phosphorus ALT Troponin T Total Protein Albumin Triglycerides HDL Cholesterol TSH Arterial Blood Glucose Crossmatch Chest x-ray: report reviewed, image reviewed Allied health notes reviewed: nursing
--- NOTE | 2021-08-12 02:38 | XRay Report ---
CHEST 1 VIEW INDICATION / CLINICAL INFORMATION: follow up respiratory failure. COMPARISON: 08/11/2021 FINDINGS: SUPPORT DEVICES: Stable and satisfactory positioning of ET tube and NG tube area HEART / MEDIASTINUM: Stable cardiomegaly. LUNGS / PLEURA: Previously noted pulmonary edema has mostly resolved. Trace bilateral pleural effusio ns present. No pneumothorax. ADDITIONAL FINDINGS: No significant additional findings. IMPRESSION: 1. Resolving interstitial pulmonary edema. Signer Name: Angely Gleason MD Signed: 08/12/2021 2:34 AM Workstation Name: [id number]
[2021-08-12] MEDS: niCARdipine 50 MG in SODIUM CHLORIDE 0.9% 250ML 230 ML IV SCH ×4 (03:19→21:24)
[2021-08-12 06:04] LABS: Hematocrit 26.7 % (30.3-42.9); Hemoglobin 8.8 gm/dl (10.1-14.3); Mean Corpuscular HGB Conc 33 % (30-34); Mean Corpuscular Volume 83 fl (79-97); Red Cell Distribution Width 18.6 % (13.2-15.2)
[2021-08-12 06:16] LABS: Platelet Count 224 K/mm3 (140-440)
[2021-08-12 06:30] LABS: Calcium 9.3 mg/dL (8.4-10.2)
[2021-08-12] MEDS: hydrALAZINE 25 MG TAB PO SCH ×3 (07:26→21:00)
[2021-08-12] MEDS: ISOSORBIDE DINITRATE 20 MG TAB PO SCH ×3 (07:28→21:00)
[2021-08-12] MEDS: AMIODARONE 360 MG in DEXTROSE 5% IN WATER 192.8 ML IV SCH ×2 (07:29→17:57)
[2021-08-12] MEDS: METOPROLOL TARTRATE 50 MG TAB PO SCH ×3 (08:40→21:00)
[2021-08-12] MEDS ORDERED: SODIUM CHLORIDE 0.9% 100 ML IV PRN ×2 (08:52→08:54)
--- NOTE | 2021-08-12 09:03 | Progress Note ---
Assessment and Plan 60 y/o female with known VT in the past, systolic heart failure with BIV AICD admitted with recurrent VT and electrolyte abnormality 08/12/21: Will discontinue cardene while on HD as goal is to pull 3 liters. Will speak with cards and ask them to call [facility] [place] to see if they have a time frame. Continue supportive measures. Remains on Amio Drip. 08/08/21: Continue supportive measures. Follow up any new cardiac recs. 08/07/21: Await transfer to [facility], continue supportive measures Follow up cards recs most likely needs ablation at [facility] Continue amio drip per cards CCt 31 minutes. Subjective Date of service: 08/12/21 Principal diagnosis: Recurrent VT Interval history: Patient still here, awaiting bed at [facility] for VT ablation. No runs of VT since intubation and on current regimen. Getting HD and renal following. Still on Cardene but oral meds just ordered for this am. Objective Vital Signs - 12hr 08/11/21 08/11/21 08/11/21 21:00 22:00 22:42 Temperature Pulse Rate 70 70 70 Pulse Rate [ From Monitor] Respiratory 17 19 Rate Blood Pressure 167/74 175/66 174/75 O2 Sat by Pulse 98 97 Oximetry 08/11/21 08/11/21 08/11/21 22:43 22:55 23:01 Temperature Pulse Rate 70 70 70 Pulse Rate [ From Monitor] Respiratory 13 Rate Blood Pressure 174/75 171/79 185/74 O2 Sat by Pulse 98 Oximetry 08/11/21 08/11/21 08/12/21 23:38 23:57 00:00 Temperature 99.4 F Pulse Rate 70 70 Pulse Rate [ 70 From Monitor] Respiratory 21 Rate Blood Pressure 162/70 O2 Sat by Pulse 97 96 Oximetry 08/12/21 08/12/21 08/12/21 00:01 01:01 02:01 Temperature Pulse Rate 70 70 70 Pulse Rate [ From Monitor] Respiratory 18 18 22 Rate Blood Pressure 173/67 176/71 184/73 O2 Sat by Pulse 98 97 95 Oximetry 08/12/21 08/12/21 08/12/21 03:01 03:18 03:21 Temperature 100.3 F H Pulse Rate 70 70 Pulse Rate [ From Monitor] Respiratory 22 Rate Blood Pressure 174/69 177/71 O2 Sat by Pulse 96 97 Oximetry 08/12/21 08/12/21 08/12/21 04:00 04:01 05:01 Temperature Pulse Rate 70 70 70 Pulse Rate [ 70 From Monitor] Respiratory 19 9 L 15 Rate Blood Pressure 173/71 166/75 O2 Sat by Pulse 97 99 99 Oximetry 08/12/21 08/12/21 08/12/21 06:01 07:01 07:26 Temperature Pulse Rate 70 70 75 Pulse Rate [ From Monitor] Respiratory 15 20 Rate Blood Pressure 171/73 184/83 183/84 O2 Sat by Pulse 98 95 Oximetry 08/12/21 08/12/21 08/12/21 07:28 08:00 08:40 Temperature 98.4 F Pulse Rate 70 70 70 Pulse Rate [ From Monitor] Respiratory 9 L Rate Blood Pressure 183/84 176/75 180/75 O2 Sat by Pulse 98 Oximetry Constitutional: other (intubated and sedated) Eyes: non-icteric ENT: other (orally intubated) Neck: supple Effort: normal Ascultation: Bilateral: clear Percussion: Bilateral: not dull Cardiovascular: regular rate and rhythm (no mrg) Gastrointestinal: normoactive bowel sounds, soft, non-tender, non-distended Integumentary: normal Extremities: no cyanosis, no edema, pink and warm Neurologic: unable to assess Psychiatric: other (unable to assess) CBC and BMP: 08/12/21 05:23 08/12/21 05:23 ABG, PT/INR, D-dimer: ABG ABG pH 7.402 (7.320-7.450) 08/10/21 04:55 POC ABG pCO2 37.9 mmHg (32.0-48.0) 08/10/21 04:55 ABG pCO2 41.2 mm Hg 08/09/21 04:30 POC ABG pO2 83.4 mmHg (83-108) 08/10/21 04:55 ABG pO2 91.5 mm Hg (80.0-90.0) H 08/09/21 04:30 POC ABG HCO3 23.1 08/10/21 04:55 ABG O2 Saturation 96.0 (0-100) 08/10/21 04:55 PT/INR, D-dimer PT 14.2 Sec. (12.2-14.9) 08/06/21 16:35 INR 0.99 (0.87-1.13) 08/06/21 16:35 Abnormal lab findings: Abnormal Labs 08/05/21 08/05/21 08/05/21 15:55 15:55 18:50 WBC 3.7 L RBC 2.98 L Hgb 7.5 L Hct 23.8 L MCH 25 L RDW 18.9 H Plt Count 134 L Lymph % (Auto) Leslie % (Auto) Lymph # (Auto) Seg Neutrophils % Seg Neuts % (Manual) Lymphocytes % (Manual) Monocytes % (Manual) 18.0 H Eosinophils % (Manual) Basophils % (Manual) 2.0 H Seg Neutrophils # Seg Neutrophils # Man Lymphocytes # (Manual) 0.9 L Monocytes # (Manual) APTT ABG pH 7.523 H POC ABG pO2 ABG pO2 47.1 L ABG HCO3 34.6 H ABG O2 Saturation 85.4 L ABG Base Excess 10.8 H ABG Hemoglobin 7.3 L ABG Sodium ABG Potassium ABG Chloride ABG Glucose Oxyhemoglobin 83.6 L Carboxyhemoglobin Sodium Potassium 2.7 L* Chloride 93.8 L Carbon Dioxide 33 H BUN Creatinine 2.8 H Glucose 124 H POC Glucose Calcium 8.2 L Phosphorus ALT < 5 L Troponin T 0.126 H* Total Protein Albumin 3.5 L Triglycerides 202 H HDL Cholesterol 32 L TSH Arterial Blood Glucose Crossmatch 08/05/21 08/05/21 08/06/21 18:56 Unknown 04:20 WBC RBC Hgb Hct MCH RDW Plt Count Lymph % (Auto) Leslie % (Auto) Lymph # (Auto) Seg Neutrophils % Seg Neuts % (Manual) Lymphocytes % (Manual) Monocytes % (Manual) Eosinophils % (Manual) Basophils % (Manual) Seg Neutrophils # Seg Neutrophils # Man Lymphocytes # (Manual) Monocytes # (Manual) APTT ABG pH 7.575 H 7.606 H* POC ABG pO2 ABG pO2 142.9 H 111.2 H ABG HCO3 33.2 H 33.6 H ABG O2 Saturation ABG Base Excess 10.4 H 11.2 H ABG Hemoglobin 6.6 L 6.8 L ABG Sodium ABG Potassium ABG Chloride ABG Glucose Oxyhemoglobin Carboxyhemoglobin Sodium Potassium Chloride Carbon Dioxide BUN Creatinine Glucose POC Glucose Calcium Phosphorus ALT Troponin T 0.183 H* D Total Protein Albumin Triglycerides HDL Cholesterol TSH Arterial Blood Glucose Crossmatch 08/06/21 08/06/21 08/06/21 04:29 04:29 04:29 WBC 2.5 L RBC 2.70 L Hgb 6.8 L Hct 21.3 L MCH 25 L RDW 18.1 H Plt Count 126 L Lymph % (Auto) 45.0 H Leslie % (Auto) 13.6 H Lymph # (Auto) 1.1 L Seg Neutrophils % 37.3 L Seg Neuts % (Manual) Lymphocytes % (Manual) Monocytes % (Manual) Eosinophils % (Manual) Basophils % (Manual) Seg Neutrophils # 0.9 L Seg Neutrophils # Man Lymphocytes # (Manual) Monocytes # (Manual) APTT 38.8 H ABG pH POC ABG pO2 ABG pO2 ABG HCO3 ABG O2 Saturation ABG Base Excess ABG Hemoglobin ABG Sodium ABG Potassium ABG Chloride ABG Glucose Oxyhemoglobin Carboxyhemoglobin Sodium 136 L Potassium 3.0 L Chloride 92.6 L Carbon Dioxide 32 H BUN Creatinine 3.8 H Glucose POC Glucose Calcium Phosphorus ALT Troponin T Total Protein 5.8 L Albumin 3.1 L Triglycerides HDL Cholesterol TSH Arterial Blood Glucose Crossmatch 08/06/21 08/06/21 08/06/21 05:30 07:26 07:26 WBC RBC Hgb 7.0 L Hct 22.5 L MCH RDW Plt Count 127 L Lymph % (Auto) Leslie % (Auto) Lymph # (Auto) Seg Neutrophils % Seg Neuts % (Manual) Lymphocytes % (Manual) Monocytes % (Manual) Eosinophils % (Manual) Basophils % (Manual) Seg Neutrophils # Seg Neutrophils # Man Lymphocytes # (Manual) Monocytes # (Manual) APTT 37.1 H ABG pH POC ABG pO2 ABG pO2 ABG HCO3 ABG O2 Saturation ABG Base Excess ABG Hemoglobin ABG Sodium ABG Potassium ABG Chloride ABG Glucose Oxyhemoglobin Carboxyhemoglobin Sodium Potassium Chloride Carbon Dioxide BUN Creatinine Glucose POC Glucose Calcium Phosphorus ALT Troponin T Total Protein Albumin Triglycerides HDL Cholesterol TSH Arterial Blood Glucose Crossmatch See Detail 08/06/21 08/06/21 08/06/21 08:06 14:50 16:03 WBC RBC Hgb Hct MCH RDW Plt Count Lymph % (Auto) Leslie % (Auto) Lymph # (Auto) Seg Neutrophils % Seg Neuts % (Manual) Lymphocytes % (Manual) Monocytes % (Manual) Eosinophils % (Manual) Basophils % (Manual) Seg Neutrophils # Seg Neutrophils # Man Lymphocytes # (Manual) Monocytes # (Manual) APTT ABG pH POC ABG pO2 ABG pO2 ABG HCO3 ABG O2 Saturation ABG Base Excess ABG Hemoglobin ABG Sodium ABG Potassium ABG Chloride ABG Glucose Oxyhemoglobin Carboxyhemoglobin Sodium Potassium 3.1 L Chloride 92.4 L Carbon Dioxide 33 H BUN Creatinine 3.9 H Glucose POC Glucose 59 L 121 H Calcium Phosphorus ALT Troponin T Total Protein Albumin Triglycerides HDL Cholesterol TSH Arterial Blood Glucose Crossmatch 08/06/21 08/06/21 08/06/21 16:35 16:35 17:31 WBC 4.2 L RBC 3.27 L Hgb 8.5 L Hct 26.8 L MCH 26 L RDW 18.7 H Plt Count 124 L Lymph % (Auto) Leslie % (Auto) 15.5 H Lymph # (Auto) 0.8 L Seg Neutrophils % Seg Neuts % (Manual) Lymphocytes % (Manual) Monocytes % (Manual) Eosinophils % (Manual) Basophils % (Manual) Seg Neutrophils # Seg Neutrophils # Man Lymphocytes # (Manual) Monocytes # (Manual) APTT ABG pH POC ABG pO2 ABG pO2 ABG HCO3 ABG O2 Saturation ABG Base Excess ABG Hemoglobin ABG Sodium ABG Potassium ABG Chloride ABG Glucose Oxyhemoglobin Carboxyhemoglobin Sodium 133 L Potassium Chloride 93.2 L Carbon Dioxide BUN 21 H Creatinine 4.6 H Glucose POC Glucose 62 L Calcium 8.3 L Phosphorus ALT Troponin T Total Protein 6.2 L Albumin 3.2 L Triglycerides HDL Cholesterol TSH Arterial Blood Glucose Crossmatch 08/06/21 08/06/21 08/07/21 18:14 18:22 04:00 WBC 1.0 L* RBC 2.67 L Hgb 7.0 L Hct 21.8 L MCH 26 L RDW 18.7 H Plt Count 82 L Lymph % (Auto) Leslie % (Auto) Lymph # (Auto) Seg Neutrophils % Seg Neuts % (Manual) 16.0 L Lymphocytes % (Manual) 60.0 H Monocytes % (Manual) Eosinophils % (Manual) 11.0 H Basophils % (Manual) 4.0 H Seg Neutrophils # Seg Neutrophils # Man 0.2 L Lymphocytes # (Manual) 0.6 L Monocytes # (Manual) APTT ABG pH 7.565 H POC ABG pO2 ABG pO2 113.3 H ABG HCO3 29.4 H ABG O2 Saturation ABG Base Excess 6.9 H ABG Hemoglobin 8.3 L ABG Sodium ABG Potassium ABG Chloride ABG Glucose Oxyhemoglobin Carboxyhemoglobin Sodium Potassium Chloride Carbon Dioxide BUN Creatinine Glucose POC Glucose 148 H Calcium Phosphorus ALT Troponin T Total Protein Albumin Triglycerides HDL Cholesterol TSH Arterial Blood Glucose Crossmatch 08/07/21 08/07/21 08/07/21 04:00 04:25 08:30 WBC RBC Hgb Hct MCH RDW Plt Count Lymph % (Auto) Leslie % (Auto) Lymph # (Auto) Seg Neutrophils % Seg Neuts % (Manual) Lymphocytes % (Manual) Monocytes % (Manual) Eosinophils % (Manual) Basophils % (Manual) Seg Neutrophils # Seg Neutrophils # Man Lymphocytes # (Manual) Monocytes # (Manual) APTT ABG pH 7.609 H* 7.479 H POC ABG pO2 ABG pO2 121.4 H 130.2 H ABG HCO3 28.5 H 30.3 H ABG O2 Saturation ABG Base Excess 7.2 H 6.2 H ABG Hemoglobin 10.7 L 8.1 L ABG Sodium ABG Potassium ABG Chloride ABG Glucose Oxyhemoglobin Carboxyhemoglobin Sodium 133 L Potassium 3.2 L D Chloride 93.9 L Carbon Dioxide BUN 23 H Creatinine 4.3 H Glucose POC Glucose Calcium 8.1 L Phosphorus ALT Troponin T Total Protein Albumin Triglycerides HDL Cholesterol TSH Arterial Blood Glucose Crossmatch 08/07/21 08/07/21 08/07/21 13:18 13:30 15:51 WBC RBC Hgb Hct MCH RDW Plt Count Lymph % (Auto) Leslie % (Auto) Lymph # (Auto) Seg Neutrophils % Seg Neuts % (Manual) Lymphocytes % (Manual) Monocytes % (Manual) Eosinophils % (Manual) Basophils % (Manual) Seg Neutrophils # Seg Neutrophils # Man Lymphocytes # (Manual) Monocytes # (Manual) APTT ABG pH POC ABG pO2 ABG pO2 ABG HCO3 ABG O2 Saturation ABG Base Excess ABG Hemoglobin ABG Sodium ABG Potassium ABG Chloride ABG Glucose Oxyhemoglobin Carboxyhemoglobin Sodium Potassium Chloride Carbon Dioxide BUN Creatinine Glucose POC Glucose 67 L 58 L Calcium Phosphorus ALT Troponin T Total Protein Albumin Triglycerides HDL Cholesterol TSH 7.070 H Arterial Blood Glucose Crossmatch 08/08/21 08/08/2108/08/21 04:19 04:26 04:26 WBC RBC Hgb 6.8 L Hct 21.6 L MCH RDW Plt Count 91 L Lymph % (Auto) Leslie % (Auto) Lymph # (Auto) Seg Neutrophils % Seg Neuts % (Manual) Lymphocytes % (Manual) Monocytes % (Manual) Eosinophils % (Manual) Basophils % (Manual) Seg Neutrophils # Seg Neutrophils # Man Lymphocytes # (Manual) Monocytes # (Manual) APTT ABG pH 7.545 H POC ABG pO2 ABG pO2 136.1 H ABG HCO3 27.3 H ABG O2 Saturation ABG Base Excess 4.5 H ABG Hemoglobin 6.9 L ABG Sodium ABG Potassium ABG Chloride ABG Glucose Oxyhemoglobin Carboxyhemoglobin Sodium 132 L Potassium Chloride 93.5 L Carbon Dioxide BUN Creatinine 3.7 H Glucose POC Glucose Calcium Phosphorus ALT Troponin T Total Protein Albumin Triglycerides HDL Cholesterol TSH Arterial Blood Glucose Crossmatch 08/08/21 08/08/21 08/08/21 09:45 12:23 18:51 WBC RBC Hgb Hct MCH RDW Plt Count Lymph % (Auto) Leslie % (Auto) Lymph # (Auto) Seg Neutrophils % Seg Neuts % (Manual) Lymphocytes % (Manual) Monocytes % (Manual) Eosinophils % (Manual) Basophils % (Manual) Seg Neutrophils # Seg Neutrophils # Man Lymphocytes # (Manual) Monocytes # (Manual) APTT ABG pH 7.471 H POC ABG pO2 71.1 L ABG pO2 ABG HCO3 ABG O2 Saturation ABG Base Excess ABG Hemoglobin ABG Sodium 128.9 L ABG Potassium ABG Chloride 95.0 L ABG Glucose 64 L Oxyhemoglobin Carboxyhemoglobin Sodium Potassium Chloride Carbon Dioxide BUN Creatinine Glucose POC Glucose 58 L 68 L Calcium Phosphorus ALT Troponin T Total Protein Albumin Triglycerides HDL Cholesterol TSH Arterial Blood Glucose 64 L Crossmatch 08/09/21 08/09/21 08/09/21 04:30 04:33 04:33 WBC 2.4 L RBC 3.16 L Hgb 8.3 L Hct 26.5 L MCH 26 L RDW 18.3 H Plt Count 113 L Lymph % (Auto) Leslie % (Auto) Lymph # (Auto) Seg Neutrophils % Seg Neuts % (Manual) Lymphocytes % (Manual) Monocytes % (Manual) Eosinophils % (Manual) Basophils % (Manual) Seg Neutrophils # Seg Neutrophils # Man Lymphocytes # (Manual) Monocytes # (Manual) APTT ABG pH POC ABG pO2 ABG pO2 91.5 H ABG HCO3 26.6 H ABG O2 Saturation ABG Base Excess ABG Hemoglobin 9.0 L ABG Sodium ABG Potassium ABG Chloride ABG Glucose Oxyhemoglobin Carboxyhemoglobin Sodium 129 L Potassium Chloride 91.9 L Carbon Dioxide BUN 22 H Creatinine 4.7 H Glucose POC Glucose Calcium Phosphorus ALT Troponin T Total Protein Albumin Triglycerides HDL Cholesterol TSH Arterial Blood Glucose Crossmatch 08/10/21 08/10/21 08/10/21 04:00 04:00 04:55 WBC 3.3 L RBC 3.32 L Hgb 8.9 L Hct 27.6 L MCH 27 L RDW 18.3 H Plt Count Lymph % (Auto) Leslie % (Auto) Lymph # (Auto) Seg Neutrophils % Seg Neuts % (Manual) Lymphocytes % (Manual) Monocytes % (Manual) 9.0 H Eosinophils % (Manual) Basophils % (Manual) Seg Neutrophils # Seg Neutrophils # Man Lymphocytes # (Manual) 0.6 L Monocytes # (Manual) APTT ABG pH POC ABG pO2 ABG pO2 ABG HCO3 ABG O2 Saturation ABG Base Excess ABG Hemoglobin 9.6 L ABG Sodium 120.3 L ABG Potassium 5.2 H ABG Chloride 88.0 L ABG Glucose Oxyhemoglobin Carboxyhemoglobin 0.4 L Sodium 123 L Potassium 5.5 H D Chloride 84.8 L Carbon Dioxide BUN 30 H Creatinine 5.5 H Glucose 139 H POC Glucose Calcium Phosphorus 5.90 H ALT Troponin T Total Protein Albumin Triglycerides HDL Cholesterol TSH Arterial Blood Glucose Crossmatch 08/10/21 08/11/21 08/11/21 12:17 04:00 05:53 WBC RBC 3.50 L Hgb 9.2 L Hct 29.0 L MCH 26 L RDW 18.4 H Plt Count Lymph % (Auto) Leslie % (Auto) Lymph # (Auto) Seg Neutrophils % Seg Neuts % (Manual) 76.0 H Lymphocytes % (Manual) 8.0 L Monocytes % (Manual) 13.0 H Eosinophils % (Manual) Basophils % (Manual) Seg Neutrophils # Seg Neutrophils # Man Lymphocytes # (Manual) 0.6 L Monocytes # (Manual) 0.9 H APTT ABG pH POC ABG pO2 ABG pO2 ABG HCO3 ABG O2 Saturation ABG Base Excess ABG Hemoglobin ABG Sodium ABG Potassium ABG Chloride ABG Glucose Oxyhemoglobin Carboxyhemoglobin Sodium 128 L Potassium Chloride 90.3 L Carbon Dioxide BUN 24 H Creatinine 4.3 H Glucose 135 H POC Glucose 142 H Calcium Phosphorus ALT Troponin T Total Protein Albumin Triglycerides HDL Cholesterol TSH Arterial Blood Glucose Crossmatch 08/11/21 08/12/21 08/12/21 16:39 05:23 05:23 WBC RBC 3.20 L Hgb 8.8 L Hct 26.7 L MCH RDW 18.6 H Plt Count Lymph % (Auto) Leslie % (Auto) Lymph # (Auto) Seg Neutrophils % Seg Neuts % (Manual) Lymphocytes % (Manual) Monocytes % (Manual) Eosinophils % (Manual) Basophils % (Manual) Seg Neutrophils # Seg Neutrophils # Man Lymphocytes # (Manual) Monocytes # (Manual) APTT ABG pH POC ABG pO2 ABG pO2 ABG HCO3 ABG O2 Saturation ABG Base Excess ABG Hemoglobin ABG Sodium ABG Potassium ABG Chloride ABG Glucose Oxyhemoglobin Carboxyhemoglobin Sodium 125 L Potassium Chloride 86.6 L Carbon Dioxide 21 L BUN 34 H Creatinine 5.0 H Glucose 111 H POC Glucose 112 H Calcium Phosphorus ALT Troponin T Total Protein Albumin Triglycerides HDL Cholesterol TSH Arterial Blood Glucose Crossmatch Allied health notes reviewed: nursing
[2021-08-12] MEDS: CLOPIDOGREL 75 MG TAB PO SCH (10:38)
[2021-08-12] MEDS: HEPARIN 5,000 UNIT/1 ML VIAL SUB-Q SCH ×2 (10:38→21:01)
[2021-08-12] MEDS: LOSARTAN 25 MG TAB PO SCH (10:38)
[2021-08-12] MEDS: SENNOSIDES ORAL LIQD 8.8 MG/5 ML ORAL LIQD FEEDTUBE SCH ×2 (10:38→21:00)
[2021-08-12] MEDS: FAMOTIDINE 10 MG TAB PO SCH ×2 (10:38→21:00)
[2021-08-12] MEDS: ASPIRIN 81 MG TAB CHEW PO SCH (10:38)
--- NOTE | 2021-08-12 11:14 | Progress Note ---
Assessment and Plan VT Storm Recurrent AICD Discharges CAD s/p PCI (07/17/2021) Accelerated HTN ESRD on HD Hyponatremia Severe Hypokalemia (POA, resolved) Anemia Thrombocytopenia Type 2 NM HTN H/o CVA C 07/17/2021 Multivessel CAD - s/p successful IVUS-guided PCI with POBA to ostial LCx ECHO 07/16/2021 SUMMARY/CONCLUSIONS: 1. Left ventricular ejection fraction is 45-50%. 2. Aortic valve is moderately calcified and tricuspid. 3. Moderately dilated left atrium. 4. Mild aortic stenosis. 5. Dilated inferior vena cava, with respiratory size variation greater than 50%. 6. Trivial pericardial effusion. 7. Mildly increased left ventricular wall thickness. 8. Mild tricuspid regurgitation. 9. Mild mitral valve regurgitation. 10. Moderate mitral annular calcification. 11. The aortic valve max velocity is 2.38 m/s. The peak gradient is 22.7 mmHg with a mean gradient of 11.0 mmHg, the left ventricle outflow tract measures 2.00 cm. SARAH (VTI) is 1.40 cm with AVAi (VTI) of 0.96 cm/m. 12. The estimated right ventricular systolic pressure is mildly elevated right ventricular systolic pressure at 43.8 mmHg. rec: no events for last 72 hours, on iv amio, increase lopressor 100mg bid and in discussion with pulmonary extubate patient. Subjective Date of service: 08/12/21 Principal diagnosis: Recurrent VT Interval history: on vent Objective Vital Signs Temp Pulse Pulse Resp BP Pulse Ox Pulse Ox 08/12/21 10:45 70 193/79 08/12/21 10:38 70 193/82 08/12/21 10:30 70 194/86 08/12/21 10:15 70 194/85 08/12/21 10:00 70 189/83 08/12/21 09:45 70 190/78 08/12/21 09:30 70 183/85 08/12/21 09:15 70 185/78 08/12/21 09:00 70 180/84 08/12/21 08:45 70 180/84 08/12/21 08:40 70 180/75 08/12/21 08:20 100.5 F H 70 21 180/75 99 08/12/21 08:00 98.4 F 70 70 9 L 176/75 98 08/12/21 07:28 70 183/84 08/12/21 07:26 75 183/84 08/12/21 07:01 70 20 184/83 95 08/12/21 06:01 70 15 171/73 98 08/12/21 05:01 70 15 166/75 99 08/12/21 04:01 70 9 L 173/71 99 08/12/21 04:00 70 70 19 97 08/12/21 03:21 70 177/71 97 08/12/21 03:18 100.3 F H 08/12/21 03:01 70 22 174/69 96 08/12/21 02:01 70 22 184/73 95 08/12/21 01:01 70 18 176/71 97 08/12/21 00:01 70 18 173/67 98 08/12/21 00:00 70 70 21 96 08/11/21 23:57 99.4 F 08/11/21 23:38 70 162/70 97 08/11/21 23:01 70 13 185/74 98 08/11/21 22:55 70 171/79 08/11/21 22:43 70 174/75 08/11/21 22:42 70 174/75 08/11/21 22:00 70 19 175/66 97 08/11/21 21:00 70 17 167/74 98 08/11/21 20:00 70 70 12 176/68 99 08/11/21 19:53 99.7 F H 08/11/21 19:39 70 175/68 96 08/11/21 19:01 70 17 169/69 96 08/11/21 19:00 70 16 175/70 08/11/21 18:58 70 20 175/70 96 08/11/21 18:01 70 22 184/69 95 08/11/21 17:01 70 11 L 182/77 98 08/11/21 16:46 70 192/75 98 08/11/21 16:01 70 25 H 191/77 96 08/11/21 16:00 97.8 F 70 70 25 H 97 08/11/21 15:01 70 20 193/81 96 08/11/21 14:17 70 21 178/78 99 08/11/21 13:45 99 08/11/21 13:23 70 168/72 08/11/21 13:22 70 168/72 01/02/22 13:01 70 18 172/68 97 08/11/21 13:00 70 168/70 100 08/11/21 12:01 70 16 141/72 99 08/11/21 12:00 98.1 F 70 70 16 99 Pulse Ox Pulse Ox Pulse Ox 08/12/21 10:45 08/12/21 10:38 08/12/21 10:30 08/12/21 10:15 08/12/21 10:00 08/12/21 09:45 08/12/21 09:30 08/12/21 09:15 08/12/21 09:00 08/12/21 08:45 08/12/21 08:40 08/12/21 08:20 99 99 99 08/12/21 08:00 08/12/21 07:28 08/12/21 07:26 08/12/21 07:01 08/12/21 06:01 08/12/21 05:01 08/12/21 04:01 08/12/21 04:00 08/12/21 03:21 08/12/21 03:18 08/12/21 03:01 08/12/21 02:01 08/12/21 01:01 08/12/21 00:01 08/12/21 00:00 08/11/21 23:57 08/11/21 23:38 08/11/21 23:01 08/11/21 22:55 08/11/21 22:43 08/11/21 22:42 08/11/21 22:00 08/11/21 21:00 08/11/21 20:00 08/11/21 19:53 08/11/21 19:39 08/11/21 19:01 08/11/21 19:00 08/11/21 18:58 08/11/21 18:01 08/11/21 17:01 08/11/21 16:46 08/11/21 16:01 08/11/21 16:00 08/11/21 15:01 08/11/21 14:17 08/11/21 13:45 08/11/21 13:23 08/11/21 13:22 08/11/21 13:01 08/11/21 13:00 08/11/21 12:01 08/11/21 12:00 - Physical Examination General: Other (intubated) HEENT: Positive: Normocephaly, Mucus Membranes Dry Neck: Positive: neck supple, trachea midline. Negative: JVD/HJR Cardiac: Positive: Reg Rate and Rhythm Lungs: Positive: Decreased Breath Sounds Neuro: Positive: Other (intubated) Abdomen: Positive: Soft Skin: Negative: Rash Musculoskeletal: No Fluid Collection Extremities: Present: lower extr. pulses. Absent: edema - Labs and Meds CBC 08/12/21 Range/Units 05:23 WBC 7.3 (4.5-11.0) K/mm3 RBC 3.20 L (3.65-5.03) M/mm3 Hgb 8.8 L (10.1-14.3) gm/dl Hct 26.7 L (30.3-42.9) % Plt Count 224 (140-440) K/mm3 Comprehensive Metabolic Panel 08/12/21 Range/Units 05:23 Sodium 125 L (137-145) mmol/L Potassium 4.7 (3.6-5.0) mmol/L Chloride 86.6 L (98-107) mmol/L Carbon Dioxide 21 L (22-30) mmol/L BUN 34 H (7-17) mg/dL Creatinine 5.0 H (0.6-1.2) mg/dL Glucose 111 H (65-100) mg/dL Calcium 9.3 (8.4-10.2) mg/dL - Imaging and Cardiology EKG: report reviewed, image reviewed Echo: report reviewed Cardiac cath: report reviewed - EKG Sinus rhythms and dysrhythmias: sinus rhythm Repolarization changes or abnormalities: Q-T interval prolongation Myocardial infarction: anterior NM (old age or i Pacemaker: atrial pacing w/capture - Allied health notes Allied health notes reviewed: nursing
--- NOTE | 2021-08-12 12:08 | Progress Note ---
Assessment and Plan - Patient Problems (1) Hypokalemia Current Visit: Yes Status: Acute Plan to address problem: levels stable this morning. We will continue to monitor and replete per protocol. (2) Sustained ventricular tachycardia Current Visit: Yes Status: Acute Plan to address problem: intubated, sedated, and has received lidocaine Per cardiology recommendations. Pending transfer to [place] at this time. (3) Anemia Current Visit: Yes Status: Chronic Qualifiers: Anemia type: due to chronic kidney disease Plan to address problem: JANETH therapy with hemodialysis (4) End stage renal disease on dialysis Current Visit: Yes Status: Chronic Plan to address problem: continue on current Thursday, Thursday, Thursday inpatient hemodialysis schedule. (5) Diabetes Current Visit: No Status: Acute Plan to address problem: diabetes management per primary attending. Subjective Date of service: 08/12/21 Principal diagnosis: Recurrent VT Interval history: no acute changes from renal standpoint. Plan for hemodialysis today. Objective - Vital Signs Vital signs: Vital Signs - 12hr 08/12/21 08/12/21 08/12/21 01:01 02:01 03:01 Temperature Pulse Rate 70 70 70 Pulse Rate [ From Monitor] Respiratory 18 22 22 Rate Blood Pressure 176/71 184/73 174/69 O2 Sat by Pulse 97 95 96 Oximetry O2 Sat by Pulse Oximetry [ Anterior Bilateral] O2 Sat by Pulse Oximetry [ Bases] O2 Sat by Pulse Oximetry [ Bilateral Bases ] O2 Sat by Pulse Oximetry [ Bilateral Throughout] 08/12/21 08/12/21 08/12/21 03:18 03:21 04:00 Temperature 100.3 F H Pulse Rate 70 70 Pulse Rate [ 70 From Monitor] Respiratory 19 Rate Blood Pressure 177/71 O2 Sat by Pulse 97 97 Oximetry O2 Sat by Pulse Oximetry [ Anterior Bilateral] O2 Sat by Pulse Oximetry [ Bases] O2 Sat by Pulse Oximetry [ Bilateral Bases ] O2 Sat by Pulse Oximetry [ Bilateral Throughout] 08/12/21 08/12/21 08/12/21 04:01 05:01 06:01 Temperature Pulse Rate 70 70 70 Pulse Rate [ From Monitor] Respiratory 9 L 15 15 Rate Blood Pressure 173/71 166/75 171/73 O2 Sat by Pulse 99 99 98 Oximetry O2 Sat by Pulse Oximetry [ Anterior Bilateral] O2 Sat by Pulse Oximetry [ Bases] O2 Sat by Pulse Oximetry [ Bilateral Bases ] O2 Sat by Pulse Oximetry [ Bilateral Throughout] 08/12/21 08/12/21 08/12/21 07:01 07:26 07:28 Temperature Pulse Rate 70 75 70 Pulse Rate [ From Monitor] Respiratory 20 Rate Blood Pressure 184/83 183/84 183/84 O2 Sat by Pulse 95 Oximetry O2 Sat by Pulse Oximetry [ Anterior Bilateral] O2 Sat by Pulse Oximetry [ Bases] O2 Sat by Pulse Oximetry [ Bilateral Bases ] O2 Sat by Pulse Oximetry [ Bilateral Throughout] 08/12/21 08/12/21 08/12/21 08:00 08:20 08:40 Temperature 98.4 F 100.5 F H Pulse Rate 70 70 70 Pulse Rate [ 70 From Monitor] Respiratory 9 L 21 Rate Blood Pressure 176/75 180/75 180/75 O2 Sat by Pulse 98 98 Oximetry O2 Sat by Pulse 99 Oximetry [ Anterior Bilateral] O2 Sat by Pulse 99 Oximetry [ Bases] O2 Sat by Pulse 99 Oximetry [ Bilateral Bases ] O2 Sat by Pulse 99 Oximetry [ Bilateral Throughout] 08/12/21 08/12/21 08/12/21 08:45 09:00 09:15 Temperature Pulse Rate 70 70 70 Pulse Rate [ From Monitor] Respiratory Rate Blood Pressure 180/84 180/84 185/78 O2 Sat by Pulse Oximetry O2 Sat by Pulse Oximetry [ Anterior Bilateral] O2 Sat by Pulse Oximetry [ Bases] O2 Sat by Pulse Oximetry [ Bilateral Bases ] O2 Sat by Pulse Oximetry [ Bilateral Throughout] 08/12/21 08/12/21 08/12/21 09:30 09:45 10:00 Temperature Pulse Rate 70 70 70 Pulse Rate [ From Monitor] Respiratory Rate Blood Pressure 183/85 190/78 189/83 O2 Sat by Pulse Oximetry O2 Sat by Pulse Oximetry [ Anterior Bilateral] O2 Sat by Pulse Oximetry [ Bases] O2 Sat by Pulse Oximetry [ Bilateral Bases ] O2 Sat by Pulse Oximetry [ Bilateral Throughout] 08/12/21 08/12/21 08/12/21 10:15 10:30 10:38 Temperature Pulse Rate 70 70 70 Pulse Rate [ From Monitor] Respiratory Rate Blood Pressure 194/85 194/86 193/82 O2 Sat by Pulse Oximetry O2 Sat by Pulse Oximetry [ Anterior Bilateral] O2 Sat by Pulse Oximetry [ Bases] O2 Sat by Pulse Oximetry [ Bilateral Bases ] O2 Sat by Pulse Oximetry [ Bilateral Throughout] 08/12/21 08/12/21 08/12/21 10:45 11:00 11:15 Temperature Pulse Rate 70 70 70 Pulse Rate [ From Monitor] Respiratory Rate Blood Pressure 193/79 186/87 180/77 O2 Sat by Pulse Oximetry O2 Sat by Pulse Oximetry [ Anterior Bilateral] O2 Sat by Pulse Oximetry [ Bases] O2 Sat by Pulse Oximetry [ Bilateral Bases ] O2 Sat by Pulse Oximetry [ Bilateral Throughout] 08/12/21 08/12/21 11:30 11:52 Temperature 100.2 F H Pulse Rate 70 70 Pulse Rate [ From Monitor] Respiratory 14 Rate Blood Pressure 187/79 187/79 O2 Sat by Pulse Oximetry O2 Sat by Pulse 99 Oximetry [ Anterior Bilateral] O2 Sat by Pulse 99 Oximetry [ Bases] O2 Sat by Pulse 99 Oximetry [ Bilateral Bases ] O2 Sat by Pulse 99 Oximetry [ Bilateral Throughout] - General Appearance General appearance: obese, chronically ill, sedated on ventilator, intubated EENT: ATNC Neck: no JVD Respiratory: Present: Clear to Ascultation Cardiology: regular Gastrointestinal: normal Integumentary: warm and dry Musculoskeletal: deferred - Lab 08/12/21 05:23 08/12/21 05:23 Most recent lab results ABG pH 7.402 (7.320-7.450) 08/10/21 04:55 ABG pCO2 41.2 mm Hg 08/09/21 04:30 ABG pO2 91.5 mm Hg (80.0-90.0) H 08/09/21 04:30 ABG HCO3 26.6 mmol/L (20.0-26.0) H 08/09/21 04:30 ABG O2 Saturation 96.0 (0-100) 08/10/21 04:55 Calcium 9.3 mg/dL (8.4-10.2) 08/12/21 05:23 Phosphorus 4.20 mg/dL (2.5-4.5) 08/12/21 05:23 Magnesium 2.10 mg/dL (1.7-2.3) 08/12/21 05:23 - Allied health notes Allied health notes reviewed: nursing Medications & Allergies - Medications Allergies/Adverse Reactions: Allergies No Known Allergies Allergy (Unverified 07/10/21 20:57) Home Medications: Home Medications Medication Instructions Recorded Confirmed Last Taken Type Icosapent Ethyl [Vascepa] 2 gm PO BID 07/12/21 07/12/21 Unknown History Losartan [Cozaar] 25 mg PO BID 07/12/21 07/12/21 Unknown History ALBUTEROL NEB's [Proventil 0.083% 2.5 mg IH Q4HRT PRN nebu 07/15/21 Unknown Rx NEBS] Acetaminophen [Acetaminophen 650 mg SC Q4H PRN supp.rect 07/15/21 Unknown Rx SUPPOS] Acetaminophen [Acetaminophen TAB] 650 mg PO Q4H PRN tablet 07/15/21 Unknown Rx Amiodarone [Cordarone 200 MG TAB] 200 mg PO BID tablet 07/15/21 Unknown Rx AtorvaSTATin [Lipitor] 80 mg PO QHS tablet 07/15/21 Unknown Rx Clopidogrel [Plavix] 75 mg PO QDAY tablet 07/15/21 Unknown Rx Dextrose 50% in Water [D50W (25GM) 50 ml IV Q30MIN PRN syringe 07/15/21 Unknown Rx Syringe] Free Water 60 ml PO Q4HR oral.liqd 07/15/21 Unknown Rx Isosorbide Dinitrate [Isordil] 5 mg PO Q8HR tablet 07/15/21 Unknown Rx Lipase/Protease/Amylase [Pancreaze 1 each FEEDTUBE PRN PRN capsule 07/15/21 Unknown Rx 10,500 Unit] Lispro Insulin [HumaLOG] 0 unit SUB-Q Q6HR units 07/15/21 Unknown Rx Metoprolol [Lopressor TAB] 25 mg PO TID tablet 07/15/21 Unknown Rx Simple Syrup 30 ml FEEDTUBE PRN PRN oral.liqd 07/15/21 Unknown Rx hydrALAZINE [Apresoline INJ] 10 mg IV Q6H PRN vial 07/15/21 Unknown Rx Active Medications: Generic Name Dose Route Start Last Admin Trade Name Freq PRN Reason Stop Dose Admin Acetaminophen 650 mg 08/06/21 16:30 08/06/21 16:30 Acetaminophen 650 Mg Rect Supp SC 650 mg Q6H PRN Administration Pain, Mild (1-3) Albuterol 2.5 mg 08/05/21 20:59 Albuterol 2.5 Mg/3 Ml Nebu IH Q4HRT PRN Shortness Of Breath Lipase/Protease/Amylase 1 each 08/07/21 09:47 Lipase 10,500/Protease 25,000/Amylase 43,750 (Units) Dr William FEEDTUBE PRN PRN For Clogged Feeding Tube Aspirin 81 mg 08/07/21 10:00 08/12/21 10:38 Aspirin 81 Mg Tab Chew PO 81 mg QDAY JODI Administration Atorvastatin Calcium 80 mg 08/05/21 22:00 08/11/21 22:42 Atorvastatin 40 Mg Tab PO 80 mg QHS JODI Administration Clopidogrel Bisulfate 75 mg 08/10/21 10:00 08/12/21 10:38 Clopidogrel 75 Mg Tab PO 75 mg QDAY JODI Administration Dextrose 25 ml 08/06/21 15:08 08/09/21 05:26 Dextrose 50% In Water (25gm) 50 Ml Syringe IV 15 ml Q30MIN PRN Administration Hypoglycemia Protocol Famotidine 10 mg 08/09/21 22:00 08/12/21 10:38 Famotidine 10 Mg Tab PO 10 mg BID JODI Administration Fentanyl 50 mcg 08/05/21 17:25 08/10/21 10:06 Fentanyl 100 Mcg/2 Ml Inj IV 50 mcg Q10MIN PRN Administration ANALGESIA Heparin Sodium (Porcine) 5,000 unit 08/11/21 10:00 08/12/21 10:38 Heparin 5,000 Unit/1 Ml Vial SUB-Q 5,000 unit Q12HR JODI Administration Hydralazine HCl 10 mg 08/06/21 04:21 08/10/21 08:03 Hydralazine 20 Mg/1 Ml Inj IV 10 mg Q6HR PRN Administration Hypertension Hydralazine HCl 25 mg 08/11/21 14:00 08/12/21 07:26 Hydralazine 25 Mg Tab PO 25 mg Q8HR JODI Administration Hydrophilic Ointment 1 applic 08/05/21 17:25 Lip Therapy Vaseline TP Q2HR PRN Dry Lips Fentanyl Citrate 2,000 mcg in 100 mls @ 3.213 mls/hr 08/05/21 18:00 08/10/21 19:10 Fentanyl Drip Premix IV 0 mcg/kg/hr TITR JODI 0 mls/hr Titration Protocol 1 MCG/KG/HR Propofol 1,000 mg in 100 mls @ 1.928 mls/hr 08/06/21 17:00 08/12/21 01:21 Diprivan 10 Mg/Ml IV 25 mcg/kg/min TITR JODI 9.638 mls/hr Administration Protocol 5 MCG/KG/MIN Amiodarone HCl 360 mg/ 200 mls @ 33.333 mls/hr 08/09/21 19:00 08/12/21 07:29 Dextrose IV 0.5 mg/min DIRECT JODI 16.667 mls/hr Administration Protocol 1 MG/MIN Nicardipine HCl 50 mg/ Sodium 250 mls @ 25 mls/hr 08/10/21 16:00 08/12/21 10:10 Chloride IV 7.5 mg/hr TITR JODI 37.5 mls/hr Titration Protocol 5 MG/HR Sodium Chloride 100 mls @ 999 mls/hr 08/12/21 08:52 Nacl 0.9% IV GLENDY PRN Hypotension Isosorbide Dinitrate 20 mg 08/11/21 14:00 08/12/21 07:28 Isosorbide Dinitrate 20 Mg Tab PO 20 mg Q8HR JODI Administration Losartan Potassium 100 mg 08/12/21 10:00 08/12/21 10:38 Losartan 25 Mg Tab PO 100 mg DAILY [facility] Administration Metoclopramide HCl 5 mg 08/05/21 21:03 Metoclopramide 10 Mg/2 Ml Inj IV Q6H PRN Nausea And Vomiting Metoprolol Tartrate 100 mg 08/12/21 12:00 Metoprolol Tartrate 50 Mg Tab PO BID [facility] Multi-Ingred Cream/Lotion/Oil/Oint 1 applic 08/05/21 17:25 Mineral Oil/Petrolatum, White Ophth Oint 3.5 Gm OU Q4HR PRN Dry Eye(s) Ondansetron HCl 4 mg 08/05/21 21:03 Ondansetron 4 Mg/2 Ml Inj IV Q8H PRN Nausea And Vomiting Oxycodone/Acetaminophen 1 tab 08/05/21 21:03 Oxycodone /Acetaminophen 5-325mg Tab PO Q6H PRN Pain, Moderate (4-6) Senna 8.8 mg 08/07/21 13:00 08/12/21 10:38 Sennosides Oral Liqd 8.8 Mg/5 Ml Oral Liqd FEEDTUBE 8.8 mg BID JODI Administration Simple Syrup 15 ml 08/07/21 09:47 Simple Syrup 15 Ml FEEDTUBE PRN PRN Hypoglycemia Simple Syrup 30 ml 08/07/21 09:47 Simple Syrup 15 Ml FEEDTUBE PRN PRN Hypoglycemia Sodium Bicarbonate 325 mg 08/07/21 09:47 Sodium Bicarbonate 325 Mg Tab FEEDTUBE PRN PRN For Clogged Feeding Tube Sodium Chloride 10 ml 08/05/21 22:00 08/12/21 10:39 Sodium Chloride 0.9% 10 Ml Flush Syringe IV 10 ml BID JODI Administration Sodium Chloride 10 ml 08/05/21 21:03 Sodium Chloride 0.9% 10 Ml Flush Syringe IV PRN PRN LINE FLUSH
--- NOTE | 2021-08-12 12:14 | Progress Note ---
Assessment and Plan Assessment and plan: This is 60-year-old female with ESRD on HD, recurrent AICD discharges, V. tach, cardiac arrest, anemia of chronic disease, CAD, systolic HF and HTN admitted for V. tach storm and severe hypokalemia Hospital Course to Date: This is 60-year-old female with ESRD on HD, recurrent AICD discharges, systolic heart failure, V. tach, cardiac arrest, anemia, CAD and HTN who presents to the emergency department from her dialysis center on 08/05 for severe muscle spasms secondary to AICD discharges per patient. She also had questionable seizures in the dialysis center. Patient was started on amiodarone and lidocaine. Patient was intubated for airway protection in the emergency department and work-up also revealed severe hypokalemia. Patient was admitted to the hospital service with consult cardiology, nephrology and CCM. 08/06/2021: Patient is sedated, Transfer to [facility] arranged 08/07: COVID-19 PCR negative. Patient received hemodialysis today. Off Cardene drip. Patient has been OG tube for p.o. BP medications. Thrombocytopenia persists therefore anticoagulation is held. Patient is leukopenia also. We will continue to trend CBC. Persistent hypoglycemia and D10 drip increased to 30 ml/hr. negative Covid test relayed to [facility]. 08/08: 1 unit prbc today, will start TF today. Still awaiting [facility] bed. 08/09: awaiting transfer to [facility]. TF nearly at goal so anticipate stopping dextrose IVF soon. Midline to be placed 08/10/2021: Received HD today. BP remains elevated therefore started on cardene gtt. Cardiology aware. No beds available yet. 08/11/2021: Cardene gtt infusing, CT head ordered as per nurse patient is not really responding (withdraw/ grimace to pain when off sedation/PERRL/intact cough/gag on PE). 08/12: ANGELINE overnight. Remains on the vent and sedated. On Amio gtt, A-pacing on the monitor, still hypertensive on cardene gtt, home antihypertensive was restarted. Plan for HD this am, hypernatremia too be corrected per Nephro. Assessment and Plan #Neuro:Sedated -Intubated and Sedated on propofol, RASS -2 -Tritrate sedation for RASS goal of 0 to -2 -Daily SAT and SBT per CCM -Avoid benzodiazepine to reduce the possibility of delirium -PRN analgesia for CPOT greater than 3 -Maintenance of sleep-wake cycle #CV:Hypertension #VTach Storm, AICD is on -Presented muscle spasms 2/2 to AICD discharge -On amio gtt -Patient is currently A-pacing on the monitor, HR 70 -Hypertensive, on cardene gtt -Cardiology consulted, appreciate recommendations -Antihypertensive home therapy was restarted and readjusted -Continue ASA,plavix, and statin -On AC-Heparin Subq -Awaiting transfer to [facility] #Respiratory:Acute Hypoxemic Respiratory Failure -Intubated in the ED on 08/05 -Vent setting: A/C-30%,6,12,375 -AM ABG noted -CCM consulted, appreciate recommendations -VAP bundle addressed -Aspiration precaution HOB above 30 -Daily SBT and SAT trials as tolerated -Daily ABG and CXR per CCM -Continue SPO2 monitoring for SPO2 goal above 92% #GI:TF -Continue enteral Nutritiom -Nutrition consult for tube feeding -Continue PPI -Continue BR: Senokot #: ESRD on HD #Hyponatremia #Hypokalemia-resolved -Presented with severe electrolytes imbalance -Nephrology consulted, appreciate recommendations -Continue HD per nephrology -Strict intake and output -Daily weight -Avoid nephrotoxic medications; Renally dose medications -Monitor and replace electrolytes as needed #Heme:Acute on Chronic Anemia of chronic disease #Acute blood loss-resolved #Thrombocytopenia (resolved) -S/p 2 unit PRBC -No s/s of any active bleeding -Trend CBC -Transfuse for hemoglobin less than 7 -Epogen per nephrology -Continue AC- heparin subq -SCDs to bilateral LE while in bed #Endo:Glycemic Control #Hypoglycemia -Was initially hypoglycemic S/p D10 for hypoglycemia -Continue SSI Q6hrs while on TF -Avoid hypoglycemia -Continue Hypoglycemic Protocol Dispo: AWAITING TRANSFER TO [facility] since 08/06/2021 The high probability of a clinically significant sudden or life-threatening deterioration of the [Respiratory,Renal,CV] and endocrine system required my full and direct attention, intervention and postoperative management. The aggregate critical care time was [60] minutes. The time is in addition to time spent performing reported procedures but includes the following: [x] 1: Data review and interpretation [x] 2: Patient assessment and monitoring of vital signs [x] 3: Documentation [x] 4: Medication orders and management Disposition Plan: ICU Total Time Spent with Patient (Minutes): 60 History Interval history: Patient seen and examined at the bedside. Patient is intubated and sedated on propofol gtt RASS -2, on amio and cardene gtt. ANGELINE overnight Hospitalist Physical - Constitutional Vitals: Temp Pulse Resp BP Pulse Ox 100.2 F H 70 14 187/79 99 08/12/21 11:52 08/12/21 11:52 08/12/21 11:52 08/12/21 11:52 08/12/21 11:52 General appearance: Present: no acute distress, other (Intubated and sedated) - EENT Eyes: Present: PERRL - Neck Neck: Present: normal ROM - Respiratory Respiratory effort: normal Respiratory: bilateral: rhonchi - Cardiovascular Rhythm: regular Heart Sounds: Present: S1 & S2 - Extremities Extremities: no ischemia, pulses intact, pulses symmetrical Extremity abnormal: edema - Peripheral Assessment Generalized Edema Type: Non-pitting Edema Degree: 2+ Capillary Refill: < 3 seconds Skin Temperature: Warm Peripheral Pulses: within normal limits - Abdominal General gastrointestinal: soft, non-tender, normal bowel sounds - Integumentary Integumentary: Present: warm, dry - Psychiatric Psychiatric: other (Intubated and Sedated) - Neurologic Neurologic: other (Intubated and Sedated) - Allied Health Allied health notes reviewed: nursing HEART Score - HEART Score Age: 45-65 Risk factors: > 3 risk factors or hx of atherosclerotic disease Troponin: Troponin T 0.183 ng/mL (0.00-0.029) H* D 08/05/21 18:56 Troponin: 1-3x normal limit - Critical Actions Critical Actions: 4-6 pts:12-16.6% risk of adverse cardiac event. Should be admi tted Results - Labs CBC & Chem 7: 08/12/21 05:23 08/13/21 Unknown Labs: Laboratory Last Values WBC 7.3 K/mm3 (4.5-11.0) 08/12/21 05:23 RBC 3.20 M/mm3 (3.65-5.03) L 08/12/21 05:23 Hgb 8.8 gm/dl (10.1-14.3) L 08/12/21 05:23 Hct 26.7 % (30.3-42.9) L 08/12/21 05:23 MCV 83 fl (79-97) 08/12/21 05:23 MCH 28 pg (28-32) 08/12/21 05:23 MCHC 33 % (30-34) 08/12/21 05:23 RDW 18.6 % (13.2-15.2) H 08/12/21 05:23 Plt Count 224 K/mm3 (140-440) 08/12/21 05:23 Lymph % (Auto) Proof Technician Helper 08/07/21 04:00 Hemphill % (Auto) Proof Technician Helper 08/11/21 04:00 Eos % (Auto) 2.2 % (0.0-4.3) 08/06/21 16:35 Baso % (Auto) Proof Technician Helper 08/07/21 04:00 Lymph # (Auto) 0.8 K/mm3 (1.2-5.4) L 08/06/21 16:35 Hemphill # (Auto) 0.7 K/mm3 (0.0-0.8) 08/06/21 16:35 Eos # (Auto) 0.1 K/mm3 (0.0-0.4) 08/06/21 16:35 Baso # (Auto) 0.1 K/mm3 (0.0-0.1) 08/06/21 16:35 Add Manual Diff Complete 08/11/21 04:00 Total Counted 100 08/11/21 04:00 Seg Neutrophils % Proof Technician Helper 08/07/21 04:00 Seg Neuts % (Manual) 76.0 % (40.0-70.0) H 08/11/21 04:00 Band Neutrophils % 2.0 % 08/11/21 04:00 Lymphocytes % (Manual) 8.0 % (13.4-35.0) L 08/11/21 04:00 Reactive Lymphs % (Man) 5.0 % 08/07/21 04:00 Monocytes % (Manual) 13.0 % (0.0-7.3) H 08/11/21 04:00 Eosinophils % (Manual) 1.0 % (0.0-4.3) 08/10/21 04:00 Basophils % (Manual) 4.0 % (0.0-1.8) H 08/07/21 04:00 Metamyelocytes % 1.0 % 08/11/21 04:00 Nucleated RBC % Not Reportable 08/11/21 04:00 Seg Neutrophils # 2.6 K/mm3 (1.8-7.7) 08/06/21 16:35 Seg Neutrophils # Man 5.2 K/mm3 (1.8-7.7) 08/11/21 04:00 Band Neutrophils # 0.1 K/mm3 08/11/21 04:00 Lymphocytes # (Manual) 0.6 K/mm3 (1.2-5.4) L 08/11/21 04:00 Abs React Lymphs (Man) 0.0 K/mm3 08/11/21 04:00 Monocytes # (Manual) 0.9 K/mm3 (0.0-0.8) H 08/11/21 04:00 Eosinophils # (Manual) 0.0 K/mm3 (0.0-0.4) 08/11/21 04:00 Basophils # (Manual) 0.0 K/mm3 (0.0-0.1) 08/11/21 04:00 Metamyelocytes # 0.1 K/mm3 08/11/21 04:00 Myelocytes # 0.0 K/mm3 08/11/21 04:00 Promyelocytes # 0.0 K/mm3 08/11/21 04:00 Blast Cells # 0.0 K/mm3 08/11/21 04:00 WBC Morphology Not Reportable 08/11/21 04:00 WBC Morphology TNR 08/11/21 04:00 Hypersegmented Neuts Not Reportable 08/11/21 04:00 Hyposegmented Neuts Not Reportable 08/11/21 04:00 Hypogranular Neuts Not Reportable 08/11/21 04:00 Smudge Cells Not Reportable 08/11/21 04:00 Toxic Granulation Not Reportable 08/11/21 04:00 Toxic Vacuolation Not Reportable 08/11/21 04:00 Dohle Bodies Not Reportable 08/11/21 04:00 Pelger-Huet Anomaly Not Reportable 08/11/21 04:00 Claudio Rods Not Reportable 08/11/21 04:00 Platelet Estimate Consistent w auto 08/11/21 04:00 Clumped Platelets Not Reportable 08/11/21 04:00 Plt Clumps, EDTA Not Reportable 08/11/21 04:00 Large Platelets Not Reportable 08/11/21 04:00 Giant Platelets Not Reportable 08/11/21 04:00 Platelet Satelliting Not Reportable 08/11/21 04:00 Plt Morphology Comment Not Reportable 08/11/21 04:00 RBC Morphology Not Reportable 08/11/21 04:00 Dimorphic RBCs Not Reportable 08/11/21 04:00 Polychromasia Not Reportable 08/11/21 04:00 Hypochromasia Few 08/11/21 04:00 Poikilocytosis Not Reportable 08/11/21 04:00 Anisocytosis Not Reportable 08/11/21 04:00 Microcytosis Not Reportable 08/11/21 04:00 Macrocytosis Not Reportable 08/11/21 04:00 Spherocytes Not Reportable 08/11/21 04:00 Pappenheimer Bodies Not Reportable 08/11/21 04:00 Sickle Cells Not Reportable 08/11/21 04:00 Target Cells Few 08/11/21 04:00 Tear Drop Cells Not Reportable 08/11/21 04:00 Ovalocytes Not Reportable 08/11/21 04:00 Helmet Cells Not Reportable 08/11/21 04:00 Diaz-Thebes Bodies Not Reportable 08/11/21 04:00 Heidelberg Rings Not Reportable 08/11/21 04:00 [place] Cells Not Reportable 08/11/21 04:00 Bite Cells Not Reportable 08/11/21 04:00 Crenated Cell Not Reportable 08/11/21 04:00 Elliptocytes Not Reportable 08/11/21 04:00 Acanthocytes (Spur) Not Reportable 08/11/21 04:00 Rouleaux Not Reportable 08/11/21 04:00 Hemoglobin C Crystals Not Reportable 08/11/21 04:00 Schistocytes Not Reportable 08/11/21 04:00 Malaria parasites Not Reportable 08/11/21 04:00 Aleks Bodies Not Reportable 08/11/21 04:00 Hem Pathologist Commnt No 08/11/21 04:00 PT 14.2 Sec. (12.2-14.9) 08/06/21 16:35 INR 0.99 (0.87-1.13) 08/06/21 16:35 APTT 37.1 Sec. (24.2-36.6) H 08/06/21 07:26 ABG pH 7.402 (7.320-7.450) 08/10/21 04:55 POC ABG pCO2 37.9 mmHg (32.0-48.0) 08/10/21 04:55 ABG pCO2 41.2 mm Hg 08/09/21 04:30 POC ABG pO2 83.4 mmHg (83-108) 08/10/21 04:55 ABG pO2 91.5 mm Hg (80.0-90.0) H 08/09/21 04:30 POC ABG HCO3 23.1 08/10/21 04:55 ABG HCO3 26.6 mmol/L (20.0-26.0) H 08/09/21 04:30 ABG O2 Saturation 96.0 (0-100) 08/10/21 04:55 ABG O2 Content 12.3 (0.0-44) 08/09/21 04:30 POC ABG Base Excess -1.5 08/10/21 04:55 ABG Base Excess 2.0 mmol/L (-2.0-3.0) 08/09/21 04:30 ABG Hemoglobin 9.6 (12.0-17.5) L 08/10/21 04:55 ABG Oxyhemoglobin 95.3 (94-98) 08/10/21 04:55 ABG Carboxyhemoglobin 1.4 % (0.0-5.0) 08/09/21 04:30 ABG Methemoglobin 0.3 (0.0-1.5) 08/10/21 04:55 ABG Sodium 120.3 mmol/L (136.0-145.0) L 08/10/21 04:55 ABG Potassium 5.2 mmol/L (3.40-4.50) H 08/10/21 04:55 ABG Chloride 88.0 mmol/L (98-107) L 08/10/21 04:55 ABG Glucose 85 mg/dL (65-95) 08/10/21 04:55 Oxyhemoglobin 95.4 % (95.0-99.0) 08/09/21 04:30 Carboxyhemoglobin 0.4 (0.5-1.5) L 08/10/21 04:55 FiO2 25 % 08/09/21 04:30 FiO2 % 25.0 08/10/21 04:55 Sodium 125 mmol/L (137-145) L 08/12/21 05:23 Potassium 4.7 mmol/L (3.6-5.0) 08/12/21 05:23 Chloride 86.6 mmol/L (98-107) L 08/12/21 05:23 Carbon Dioxide 21 mmol/L (22-30) L 08/12/21 05:23 Anion Gap 22 mmol/L 08/12/21 05:23 BUN 34 mg/dL (7-17) H 08/12/21 05:23 Creatinine 5.0 mg/dL (0.6-1.2) H 08/12/21 05:23 Estimated GFR 11 ml/min 08/12/21 05:23 BUN/Creatinine Ratio 7 % 08/12/21 05:23 Glucose 111 mg/dL (65-100) H 08/12/21 05:23 POC Glucose 105 mg/dL (70-105) 08/12/21 05:26 Calcium 9.3 mg/dL (8.4-10.2) 08/12/21 05:23 Phosphorus 4.20 mg/dL (2.5-4.5) 08/12/21 05:23 Magnesium 2.10 mg/dL (1.7-2.3) 08/12/21 05:23 Total Bilirubin 0.70 mg/dL (0.1-1.2) 08/06/21 16:35 AST 18 units/L (5-40) 08/06/21 16:35 ALT 7 units/L (7-56) 08/06/21 16:35 Alkaline Phosphatase 102 units/L (35-129) 08/06/21 16:35 Troponin T 0.183 ng/mL (0.00-0.029) H* D 08/05/21 18:56 Total Protein 6.2 g/dL (6.3-8.2) L 08/06/21 16:35 Albumin 3.2 g/dL (3.9-5) L 08/06/21 16:35 Albumin/Globulin Ratio 1.1 % 08/06/21 16:35 Triglycerides 129 mg/dL (2-149) 08/09/21 04:33 Cholesterol 170 mg/dL (50-199) 08/05/21 15:55 LDL Cholesterol Direct 106 mg/dL (50-130) 08/05/21 15:55 HDL Cholesterol 32 mg/dL (40-59) L 08/05/21 15:55 Cholesterol/HDL Ratio 5.31 % 08/05/21 15:55 TSH 7.070 mlU/mL (0.270-4.200) H 08/07/21 13:30 Arterial Blood Glucose 85 mg/dL (65-95) 08/10/21 04:55 Arterial Blood Ionized Calcium 4.7 mg/dL (4.6-5.3) 08/10/21 04:55 Coronavirus (PCR) Negative (Negative) 08/07/21 Unknown Hepatitis A IgM Ab Non-reactive (NonReactive) 08/08/21 04:26 Hep Bs Antigen Nonreactive (Negative) 08/08/21 04:26 Hep B Core IgM Ab Non-reactive (NonReactive) 08/08/21 04:26 Hepatitis C Antibody Non-reactive (NonReactive) 08/08/21 04:26 Blood Type O POSITIVE 08/06/21 05:30 Antibody Screen Negative 08/06/21 05:30 Crossmatch See Detail 08/06/21 05:30 Microbiology: Microbiology 08/06/21 18:48 Peripheral/Venous Blood Culture - Final NO GROWTH AFTER 5 DAYS 08/06/21 18:48 Peripheral/Venous Blood Culture - Final NO GROWTH AFTER 5 DAYS Active Medications - Current Medications Current Medications: Generic Name Dose Route Start Last Admin Trade Name Freq PRN Reason Stop Dose Admin Acetaminophen 650 mg 08/06/21 16:30 08/06/21 16:30 Acetaminophen 650 Mg Rect Supp HI 650 mg Q6H PRN Administration Pain, Mild (1-3) Albuterol 2.5 mg 08/05/21 20:59 Albuterol 2.5 Mg/3 Ml Nebu IH Q4HRT PRN Shortness Of Breath Lipase/Protease/Amylase 1 each 08/07/21 09:47 Lipase 10,500/Protease 25,000/Amylase 43,750 (Units) Dr Thomas FEEDTUBE PRN PRN For Clogged Feeding Tube Aspirin 81 mg 08/07/21 10:00 08/12/21 10:38 Aspirin 81 Mg Tab Chew PO 81 mg QDAY JODI Administration Atorvastatin Calcium 80 mg 08/05/21 22:00 08/11/21 22:42 Atorvastatin 40 Mg Tab PO 80 mg QHS JODI Administration Clopidogrel Bisulfate 75 mg 08/10/21 10:00 08/12/21 10:38 Clopidogrel 75 Mg Tab PO 75 mg QDAY JODI Administration Dextrose 25 ml 08/06/21 15:08 08/09/21 05:26 Dextrose 50% In Water (25gm) 50 Ml Syringe IV 15 ml Q30MIN PRN Administration Hypoglycemia Protocol Famotidine 10 mg 08/09/21 22:00 08/12/21 10:38 Famotidine 10 Mg Tab PO 10 mg BID JODI Administration Fentanyl 50 mcg 08/05/21 17:25 08/10/21 10:06 Fentanyl 100 Mcg/2 Ml Inj IV 50 mcg Q10MIN PRN Administration ANALGESIA Heparin Sodium (Porcine) 5,000 unit 08/11/21 10:00 08/12/21 10:38 Heparin 5,000 Unit/1 Ml Vial SUB-Q 5,000 unit Q12HR JODI Administration Hydralazine HCl 10 mg 08/06/21 04:21 08/10/21 08:03 Hydralazine 20 Mg/1 Ml Inj IV 10 mg Q6HR PRN Administration Hypertension Hydralazine HCl 25 mg 08/11/21 14:00 08/12/21 07:26 Hydralazine 25 Mg Tab PO 25 mg Q8HR JODI Administration Hydrophilic Ointment 1 applic 08/05/21 17:25 Lip Therapy Vaseline TP Q2HR PRN Dry Lips Fentanyl Citrate 2,000 mcg in 100 mls @ 3.213 mls/hr 08/05/21 18:00 08/10/21 19:10 Fentanyl Drip Premix IV 0 mcg/kg/hr TITR JODI 0 mls/hr Titration Protocol 1 MCG/KG/HR Propofol 1,000 mg in 100 mls @ 1.928 mls/hr 08/06/21 17:00 08/12/21 01:21 Diprivan 10 Mg/Ml IV 25 mcg/kg/min TITR JODI 9.638 mls/hr Administration Protocol 5 MCG/KG/MIN Amiodarone HCl 360 mg/ 200 mls @ 33.333 mls/hr 08/09/21 19:00 08/12/21 07:29 Dextrose IV 0.5 mg/min DIRECT JODI 16.667 mls/hr Administration Protocol 1 MG/MIN Nicardipine HCl 50 mg/ Sodium 250 mls @ 25 mls/hr 08/10/21 16:00 08/12/21 10:10 Chloride IV 7.5 mg/hr TITR JODI 37.5 mls/hr Titration Protocol 5 MG/HR Sodium Chloride 100 mls @ 999 mls/hr 08/12/21 08:52 Nacl 0.9% IV GLENDY PRN Hypotension Isosorbide Dinitrate 20 mg 08/11/21 14:00 08/12/21 07:28 Isosorbide Dinitrate 20 Mg Tab PO 20 mg Q8HR JODI Administration Losartan Potassium 100 mg 08/12/21 10:00 08/12/21 10:38 Losartan 25 Mg Tab PO 100 mg DAILY [facility] Administration Metoclopramide HCl 5 mg 08/05/21 21:03 Metoclopramide 10 Mg/2 Ml Inj IV Q6H PRN Nausea And Vomiting Metoprolol Tartrate 100 mg 08/12/21 12:00 Metoprolol Tartrate 50 Mg Tab PO BID [facility] Multi-Ingred Cream/Lotion/Oil/Oint 1 applic 08/05/21 17:25 Mineral Oil/Petrolatum, White Ophth Oint 3.5 Gm OU Q4HR PRN Dry Eye(s) Ondansetron HCl 4 mg 08/05/21 21:03 Ondansetron 4 Mg/2 Ml Inj IV Q8H PRN Nausea And Vomiting Oxycodone/Acetaminophen 1 tab 08/05/21 21:03 Oxycodone /Acetaminophen 5-325mg Tab PO Q6H PRN Pain, Moderate (4-6) Senna 8.8 mg 08/07/21 13:00 08/12/21 10:38 Sennosides Oral Liqd 8.8 Mg/5 Ml Oral Liqd FEEDTUBE 8.8 mg BID [facility] Administration Simple Syrup 15 ml 08/07/21 09:47 Simple Syrup 15 Ml FEEDTUBE PRN PRN Hypoglycemia Simple Syrup 30 ml 08/07/21 09:47 Simple Syrup 15 Ml FEEDTUBE PRN PRN Hypoglycemia Sodium Bicarbonate 325 mg 08/07/21 09:47 Sodium Bicarbonate 325 Mg Tab FEEDTUBE PRN PRN For Clogged Feeding Tube Sodium Chloride 10 ml 08/05/21 22:00 08/12/21 10:39 Sodium Chloride 0.9% 10 Ml Flush Syringe IV 10 ml BID JODI Administration Sodium Chloride 10 ml 08/05/21 21:03 Sodium Chloride 0.9% 10 Ml Flush Syringe IV PRN PRN LINE FLUSH Nutrition/Malnutrition Assess - Dietary Evaluation Nutrition/Malnutrition Findings: Nutrition Notes Start: 08/07/21 09:12 Freq: Status: Active Protocol: Document 08/09/21 18:21 KALA (Rec: 08/09/21 18:25 KALA [id number]) Nutrition Notes Initial or Follow up Brief Note Current Diet TF-Nepro w/CARBSTEADY @ 32 ml/ hr (since L 08/07). Weight change and time frame No body weight change reported . Weight Status Overweight Subjective/Other Information RD consult for routine F/U on TF tolerance. TF continues without changes. Percent of energy/protein needs met: Prescribed Nepro w/CARBSTEADY @ 32 ml/hr will provide for energy/protein needs (1,403 Kcal/63 g) 100% Kcal; 82% AA, during LOS. #1 Nutrition Diagnosis Inadequate oral intake Diagnosis Progress(for reassessment Continues documentation) Nutrition Intervention Nutrition Support: Continue Nepro w/CARBSTEADY @ 32 ml/hr. Flush: 140 ml water Q 4 hr. Goal #1 Provide at least 75% of energy /protein needs through Enteral Feeding during LOS. Follow-Up By: 08/16/21 Additional Comments Continue monitoring TF tolerance, and BM.
[2021-08-13] MEDS: niCARdipine 50 MG in SODIUM CHLORIDE 0.9% 250ML 230 ML IV SCH ×4 (02:42→20:03)
[2021-08-13 05:14] LABS: Calcium 9.2 mg/dL (8.4-10.2)
[2021-08-13] MEDS: ISOSORBIDE DINITRATE 20 MG TAB PO SCH ×3 (05:46→23:15)
[2021-08-13] MEDS: hydrALAZINE 25 MG TAB PO SCH ×3 (05:46→23:13)
[2021-08-13] MEDS: AMIODARONE 360 MG in DEXTROSE 5% IN WATER 192.8 ML IV SCH ×2 (07:08→20:04)
[2021-08-13] MEDS: CLOPIDOGREL 75 MG TAB PO SCH (10:42)
[2021-08-13] MEDS: ASPIRIN 81 MG TAB CHEW PO SCH (10:42)
[2021-08-13] MEDS: METOPROLOL TARTRATE 50 MG TAB PO SCH ×2 (10:42→23:16)
[2021-08-13] MEDS: SENNOSIDES ORAL LIQD 8.8 MG/5 ML ORAL LIQD FEEDTUBE SCH ×2 (10:42→23:14)
[2021-08-13] MEDS: HEPARIN 5,000 UNIT/1 ML VIAL SUB-Q SCH ×2 (10:42→23:14)
[2021-08-13] MEDS: LOSARTAN 25 MG TAB PO SCH (10:43)
[2021-08-13] MEDS: FAMOTIDINE 10 MG TAB PO SCH ×2 (10:43→23:13)
--- NOTE | 2021-08-13 11:09 | Progress Note ---
Assessment and Plan Patient is a 60-year-old female with recurrent V. tach, end-stage renal disease, s/p ICD, and recurrent severe hypokalemia VT Storm Recurrent AICD Discharges CAD s/p PCI (07/17/2021) Accelerated HTN ESRD on HD Hyponatremia Severe Hypokalemia (POA, resolved) Anemia Thrombocytopenia Type 2 OH HTN H/o CVA Plan: Currently waiting bed availability at [facility] for transfer for VT ablation Continue aspirin, Plavix, Lipitor Continue losartan 100 mg p.o. daily, hydralazine 50 mg p.o. every 8 hours and metoprolol 100 mg p.o. twice daily Wean nicardipine as tolerated Discussed with pulm plan to extubate patient Patient seen in conjunction with Dr. Patel who agrees with this plan of care - Patient Problems (1) AICD discharge Current Visit: Yes Status: Acute (2) Anemia in end-stage renal disease Current Visit: Yes Status: Acute (3) Elevated troponin Current Visit: Yes Status: Acute (4) Hypokalemia Current Visit: Yes Status: Acute (5) Sustained ventricular tachycardia Current Visit: Yes Status: Acute (6) Diabetes Current Visit: No Status: Acute (7) Respiratory failure Current Visit: No Status: Acute Qualifiers: Chronicity: acute Respiratory failure complication: hypoxia Qualified Code(s): J96.01 - Acute respiratory failure with hypoxia (8) Hypertension Current Visit: No Status: Chronic Qualifiers: Hypertension type: primary hypertension Qualified Code(s): I10 - Essential (primary) hypertension Subjective Date of service: 08/13/21 Principal diagnosis: Recurrent VT Interval history: Patient remains intubated and sedated. Patient A paced no events on monitor Objective Vital Signs Temp Pulse Pulse Resp BP Pulse Ox Pulse Ox 08/13/21 10:43 70 165/66 08/13/21 10:42 70 165/66 08/13/21 07:43 70 165/68 98 08/13/21 07:20 99.6 F 08/13/21 07:00 70 19 162/67 97 08/13/21 06:01 70 19 184/74 99 08/13/21 05:00 70 14 173/78 98 08/13/21 04:55 70 173/78 98 08/13/21 04:00 98.3 F 70 12 174/70 98 08/13/21 03:45 70 12 99 01/04/22 03:22 70 08/13/21 03:01 70 11 L 149/63 99 08/13/21 02:00 70 10 L 154/62 97 08/13/21 01:15 70 155/62 99 08/13/21 01:00 70 18 161/60 99 08/13/21 00:00 97.2 F L 70 70 12 171/63 99 08/12/21 23:01 70 10 L 169/68 99 08/12/21 22:39 70 11 L 163/66 99 08/12/21 22:00 70 18 170/68 99 08/12/21 21:01 70 11 L 171/65 99 08/12/21 20:00 98.9 F 70 70 12 178/65 99 08/12/21 19:40 70 172/69 100 08/12/21 19:00 70 14 171/67 99 08/12/21 18:00 70 11 L 173/66 98 08/12/21 17:00 70 12 168/74 99 08/12/21 16:11 70 180/72 94 08/12/21 16:00 99.9 F H 70 70 11 L 182/71 99 08/12/21 15:01 70 14 172/70 98 08/12/21 14:07 70 194/83 08/12/21 14:01 70 13 194/83 100 08/12/21 13:01 70 19 185/74 97 08/12/21 12:14 70 188/84 08/12/21 12:01 70 12 188/84 99 08/12/21 12:00 98.1 F 70 70 12 99 08/12/21 11:52 100.2 F H 70 14 187/79 99 08/12/21 11:30 70 187/79 08/12/21 11:15 70 180/77 Pulse Ox Pulse Ox Pulse Ox 08/13/21 10:43 08/13/21 10:42 08/13/21 07:43 08/13/21 07:20 08/13/21 07:00 08/13/21 06:01 08/13/21 05:00 08/13/21 04:55 08/13/21 04:00 08/13/21 03:45 08/13/21 03:22 08/13/21 03:01 08/13/21 02:00 08/13/21 01:15 08/13/21 01:00 08/13/21 00:00 08/12/21 23:01 08/12/21 22:39 08/12/21 22:00 08/12/21 21:01 08/12/21 20:00 08/12/21 19:40 08/12/21 19:00 08/12/21 18:00 08/12/21 17:00 08/12/21 16:11 08/12/21 16:00 08/12/21 15:01 08/12/21 14:07 08/12/21 14:01 08/12/21 13:01 08/12/21 12:14 08/12/21 12:01 08/12/21 12:00 08/12/21 11:52 99 99 99 08/12/21 11:30 08/12/21 11:15 - Physical Examination General: Other (intubated) HEENT: Positive: Normocephaly, Mucus Membranes Dry Neck: Positive: neck supple, trachea midline. Negative: JVD/HJR Cardiac: Positive: Reg Rate and Rhythm Lungs: Positive: Ventilated Respirations Neuro: Positive: Other (intubated) Abdomen: Positive: Soft Skin: Negative: Rash Musculoskeletal: No Fluid Collection Extremities: Present: lower extr. pulses. Absent: edema - Labs and Meds Lipids 08/13/21 Range/Units Unknown Triglycerides 399 H (2-149) mg/dL Comprehensive Metabolic Panel 08/13/21 Range/Units Unknown Sodium 129 L (137-145) mmol/L Potassium 3.8 (3.6-5.0) mmol/L Chloride 90.1 L (98-107) mmol/L Carbon Dioxide 25 (22-30) mmol/L BUN 24 H (7-17) mg/dL Creatinine 3.8 H (0.6-1.2) mg/dL Glucose 98 (65-100) mg/dL Calcium 9.2 (8.4-10.2) mg/dL - Imaging and Cardiology EKG: report reviewed, image reviewed Echo: report reviewed Cardiac cath: report reviewed - Telemetry EKG Rhythm: Paced - EKG Sinus rhythms and dysrhythmias: sinus rhythm Repolarization changes or abnormalities: Q-T interval prolongation Myocardial infarction: anterior OH (old age or i Pacemaker: atrial pacing w/capture - Allied health notes Allied health notes reviewed: nursing
--- NOTE | 2021-08-13 11:56 | Progress Note ---
Assessment and Plan Assessment and plan: This is 60-year-old female with ESRD on HD, recurrent AICD discharges, V. tach, cardiac arrest, anemia of chronic disease, CAD, systolic HF and HTN admitted for V. tach storm and severe hypokalemia Hospital Course to Date: This is 60-year-old female with ESRD on HD, recurrent AICD discharges, systolic heart failure, V. tach, cardiac arrest, anemia, CAD and HTN who presents to the emergency department from her dialysis center on 08/05 for severe muscle spasms secondary to AICD discharges per patient. She also had questionable seizures in the dialysis center. Patient was started on amiodarone and lidocaine. Patient was intubated for airway protection in the emergency department and work-up also revealed severe hypokalemia. Patient was admitted to the hospital service with consult cardiology, nephrology and [facility]. 08/06/2021: Patient is sedated, Transfer to [place] arranged 08/07: COVID-19 PCR negative. Patient received hemodialysis today. Off Cardene drip. Patient has been OG tube for p.o. BP medications. Thrombocytopenia persists therefore anticoagulation is held. Patient is leukopenia also. We will continue to trend CBC. Persistent hypoglycemia and D10 drip increased to 30 ml/hr. negative Covid test relayed to [place]. 08/08: 1 unit prbc today, will start TF today. Still awaiting [place] bed. 08/09: awaiting transfer to [place]. TF nearly at goal so anticipate stopping dextrose IVF soon. Midline to be placed 08/10/2021: Received HD today. BP remains elevated therefore started on cardene gtt. Cardiology aware. No beds available yet. 08/11/2021: Cardene gtt infusing, CT head ordered as per nurse patient is not really responding (withdraw/ grimace to pain when off sedation/PERRL/intact cough/gag on PE). 08/12: ANGELINE overnight. Remains on the vent and sedated. On Amio gtt, A-pacing on the monitor, still hypertensive on cardene gtt, home antihypertensive was restarted. Plan for HD this am, hypernatremia too be corrected per Nephro. 08/13: Plan for SAT and SBT this am for possible extubation. Patient remains hypertensive on cardene gtt, clonidine added. Assessment and Plan #Neuro:Sedated -Intubated and Sedated on propofol, RASS -2 -Tritrate sedation for RASS goal of 0 to -2 -Daily SAT and SBT per CCM -Avoid benzodiazepine to reduce the possibility of delirium -PRN analgesia for CPOT greater than 3 -Maintenance of sleep-wake cycle #CV:Hypertension #VTach Storm, AICD is on -Presented muscle spasms 2/2 to AICD discharge -On amio gtt -Patient is currently A-pacing on the monitor, HR 70 -Hypertensive, on cardene gtt -Cardiology consulted, appreciate recommendations -Antihypertensive home therapy was restarted and readjusted -Clonidine added -Continue Blood pressure monitoring for SBP less than 160 -Continue ASA,plavix, and statin -On AC-Heparin Subq -Awaiting transfer to [place] #Respiratory:Acute Hypoxemic Respiratory Failure -Intubated in the ED on 08/05 -Vent setting:CPAP-30%,6,12,375 -AM ABG noted -CCM consulted, appreciate recommendations -VAP bundle addressed -Aspiration precaution HOB above 30 -Daily SBT and SAT trials as tolerated -Daily ABG and CXR per CCM -Continue SPO2 monitoring for SPO2 goal above 92% #GI:TF -Continue enteral Nutritiom -Nutrition consult for tube feeding -Continue PPI -Continue BR: Senokot #: ESRD on HD #Hyponatremia #Hypokalemia-resolved -Presented with severe electrolytes imbalance -Nephrology consulted, appreciate recommendations -Continue HD per nephrology -Strict intake and output -Daily weight -Avoid nephrotoxic medications; Renally dose medications -Monitor and replace electrolytes as needed #Heme:Acute on Chronic Anemia of chronic disease #Acute blood loss-resolved #Thrombocytopenia (resolved) -S/p 2 unit PRBC -No s/s of any active bleeding -Trend CBC -Transfuse for hemoglobin less than 7 -Epogen per nephrology -Continue AC- heparin subq -SCDs to bilateral LE while in bed #Endo:Glycemic Control #Hypoglycemia -Was initially hypoglycemic S/p D10 for hypoglycemia -Continue SSI Q6hrs while on TF -Avoid hypoglycemia -Continue Hypoglycemic Protocol Dispo: AWAITING TRANSFER TO [facility] since 08/06/2021 The high probability of a clinically significant sudden or life-threatening deterioration of the [Respiratory,Renal,CV] and endocrine system required my full and direct attention, intervention and postoperative management. The aggregate critical care time was [60] minutes. The time is in addition to time spent performing reported procedures but includes the following: [x] 1: Data review and interpretation [x] 2: Patient assessment and monitoring of vital signs [x] 3: Documentation [x] 4: Medication orders and management Disposition Plan: ICU Total Time Spent with Patient (Minutes): 60 History Interval history: Patient seen and examined at the bedside. Patient is intubated and sedated on propofol gtt RASS -2. ANGELINE overnight. Remains on amio and cardene gtt Hospitalist Physical - Constitutional Vitals: Temp Pulse Resp BP Pulse Ox 98.5 F 70 20 179/67 99 08/13/21 11:36 08/13/21 11:01 08/13/21 11:01 08/13/21 11:01 08/13/21 11:01 General appearance: Present: no acute distress - EENT Eyes: Present: PERRL - Neck Neck: Present: normal ROM - Respiratory Respiratory effort: normal Respiratory: bilateral: rhonchi - Cardiovascular Rhythm: regular (A-pacing) Heart Sounds: Present: S1 & S2 - Extremities Extremities: no ischemia, pulses intact, pulses symmetrical Extremity abnormal: edema - Peripheral Assessment Generalized Edema Type: Non-pitting Edema Degree: 1+ Capillary Refill: < 3 seconds Skin Temperature: Warm Peripheral Pulses: within normal limits - Abdominal General gastrointestinal: soft, non-tender, normal bowel sounds - Integumentary Integumentary: Present: warm, dry - Psychiatric Psychiatric: other (Patient easily arousable, but is not following commands) - Neurologic Neurologic: moves all extremities, other (Patient easily arousable, but is not following commands) - Allied Health Allied health notes reviewed: nursing HEART Score - HEART Score Age: 45-65 Risk factors: > 3 risk factors or hx of atherosclerotic disease Troponin: Troponin T 0.183 ng/mL (0.00-0.029) H* D 08/05/21 18:56 Troponin: 1-3x normal limit - Critical Actions Critical Actions: 4-6 pts:12-16.6% risk of adverse cardiac event. Should be admitted Results - Labs CBC & Chem 7: 08/12/21 05:23 08/13/21 Unknown Labs: Laboratory Last Values WBC 7.3 K/mm3 (4.5-11.0) 08/12/21 05:23 RBC 3.20 M/mm3 (3.65-5.03) L 08/12/21 05:23 Hgb 8.8 gm/dl (10.1-14.3) L 08/12/21 05:23 Hct 26.7 % (30.3-42.9) L 08/12/21 05:23 MCV 83 fl (79-97) 08/12/21 05:23 MCH 28 pg (28-32) 08/12/21 05:23 MCHC 33 % (30-34) 08/12/21 05:23 RDW 18.6 % (13.2-15.2) H 08/12/21 05:23 Plt Count 224 K/mm3 (140-440) 08/12/21 05:23 Lymph % (Auto) Bearing Press Machine Operator 08/07/21 04:00 Shelby % (Auto) Bearing Press Machine Operator 08/11/21 04:00 Eos % (Auto) 2.2 % (0.0-4.3) 08/06/21 16:35 Baso % (Auto) Bearing Press Machine Operator 08/07/21 04:00 Lymph # (Auto) 0.8 K/mm3 (1.2-5.4) L 08/06/21 16:35 Shelby # (Auto) 0.7 K/mm3 (0.0-0.8) 08/06/21 16:35 Eos # (Auto) 0.1 K/mm3 (0.0-0.4) 08/06/21 16:35 Baso # (Auto) 0.1 K/mm3 (0.0-0.1) 08/06/21 16:35 Add Manual Diff Complete 08/11/21 04:00 Total Counted 100 08/11/21 04:00 Seg Neutrophils % Bearing Press Machine Operator 08/07/21 04:00 Seg Neuts % (Manual) 76.0 % (40.0-70.0) H 08/11/21 04:00 Band Neutrophils % 2.0 % 08/11/21 04:00 Lymphocytes % (Manual) 8.0 % (13.4-35.0) L 08/11/21 04:00 Reactive Lymphs % (Man) 5.0 % 08/07/21 04:00 Monocytes % (Manual) 13.0 % (0.0-7.3) H 08/11/21 04:00 Eosinophils % (Manual) 1.0 % (0.0-4.3) 08/10/21 04:00 Basophils % (Manual) 4.0 % (0.0-1.8) H 08/07/21 04:00 Metamyelocytes % 1.0 % 08/11/21 04:00 Nucleated RBC % Not Reportable 08/11/21 04:00 Seg Neutrophils # 2.6 K/mm3 (1.8-7.7) 08/06/21 16:35 Seg Neutrophils # Man 5.2 K/mm3 (1.8-7.7) 08/11/21 04:00 Band Neutrophils # 0.1 K/mm3 08/11/21 04:00 Lymphocytes # (Manual) 0.6 K/mm3 (1.2-5.4) L 08/11/21 04:00 Abs React Lymphs (Man) 0.0 K/mm3 08/11/21 04:00 Monocytes # (Manual) 0.9 K/mm3 (0.0-0.8) H 08/11/21 04:00 Eosinophils # (Manual) 0.0 K/mm3 (0.0-0.4) 08/11/21 04:00 Basophils # (Manual) 0.0 K/mm3 (0.0-0.1) 08/11/21 04:00 Metamyelocytes # 0.1 K/mm3 08/11/21 04:00 Myelocytes # 0.0 K/mm3 08/11/21 04:00 Promyelocytes # 0.0 K/mm3 08/11/21 04:00 Blast Cells # 0.0 K/mm3 08/11/21 04:00 WBC Morphology Not Reportable 08/11/21 04:00 WBC Morphology TNR 08/11/21 04:00 Hypersegmented Neuts Not Reportable 08/11/21 04:00 Hyposegmented Neuts Not Reportable 08/11/21 04:00 Hypogranular Neuts Not Reportable 08/11/21 04:00 Smudge Cells Not Reportable 08/11/21 04:00 Toxic Granulation Not Reportable 08/11/21 04:00 Toxic Vacuolation Not Reportable 08/11/21 04:00 Dohle Bodies Not Reportable 08/11/21 04:00 Pelger-Huet Anomaly Not Reportable 08/11/21 04:00 Claudio Rods Not Reportable 08/11/21 04:00 Platelet Estimate Consistent w auto 08/11/21 04:00 Clumped Platelets Not Reportable 08/11/21 04:00 Plt Clumps, EDTA Not Reportable 08/11/21 04:00 Large Platelets Not Reportable 08/11/21 04:00 Giant Platelets Not Reportable 08/11/21 04:00 Platelet Satelliting Not Reportable 08/11/21 04:00 Plt Morphology Comment Not Reportable 08/11/21 04:00 RBC Morphology Not Reportable 08/11/21 04:00 Dimorphic RBCs Not Reportable 08/11/21 04:00 Polychromasia Not Reportable 08/11/21 04:00 Hypochromasia Few 08/11/21 04:00 Poikilocytosis Not Reportable 08/11/21 04:00 Anisocytosis Not Reportable 08/11/21 04:00 Microcytosis Not Reportable 08/11/21 04:00 Macrocytosis Not Reportable 08/11/21 04:00 Spherocytes Not Reportable 08/11/21 04:00 Pappenheimer Bodies Not Reportable 08/11/21 04:00 Sickle Cells Not Reportable 08/11/21 04:00 Target Cells Few 08/11/21 04:00 Tear Drop Cells Not Reportable 08/11/21 04:00 Ovalocytes Not Reportable 08/11/21 04:00 Helmet Cells Not Reportable 08/11/21 04:00 [place] Bodies Not Reportable 08/11/21 04:00 Rickreall Rings Not Reportable 08/11/21 04:00 Case Cells Not Reportable 08/11/21 04:00 Bite Cells Not Reportable 08/11/21 04:00 Crenated Cell Not Reportable 08/11/21 04:00 Elliptocytes Not Reportable 08/11/21 04:00 Acanthocytes (Spur) Not Reportable 08/11/21 04:00 Rouleaux Not Reportable 08/11/21 04:00 Hemoglobin C Crystals Not Reportable 08/11/21 04:00 Schistocytes Not Reportable 08/11/21 04:00 Malaria parasites Not Reportable 08/11/21 04:00 Aleks Bodies Not Reportable 08/11/21 04:00 Hem Pathologist Commnt No 08/11/21 04:00 PT 14.2 Sec. (12.2-14.9) 08/06/21 16:35 INR 0.99 (0.87-1.13) 08/06/21 16:35 APTT 37.1 Sec. (24.2-36.6) H 08/06/21 07:26 ABG pH 7.402 (7.320-7.450) 08/10/21 04:55 POC ABG pCO2 37.9 mmHg (32.0-48.0) 08/10/21 04:55 ABG pCO2 41.2 mm Hg 08/09/21 04:30 POC ABG pO2 83.4 mmHg (83-108) 08/10/21 04:55 ABG pO2 91.5 mm Hg (80.0-90.0) H 08/09/21 04:30 POC ABG HCO3 23.1 08/10/21 04:55 ABG HCO3 26.6 mmol/L (20.0-26.0) H 08/09/21 04:30 ABG O2 Saturation 96.0 (0-100) 08/10/21 04:55 ABG O2 Content 12.3 (0.0-44) 08/09/21 04:30 POC ABG Base Excess -1.5 08/10/21 04:55 ABG Base Excess 2.0 mmol/L (-2.0-3.0) 08/09/21 04:30 ABG Hemoglobin 9.6 (12.0-17.5) L 08/10/21 04:55 ABG Oxyhemoglobin 95.3 (94-98) 08/10/21 04:55 ABG Carboxyhemoglobin 1.4 % (0.0-5.0) 08/09/21 04:30 ABG Methemoglobin 0.3 (0.0-1.5) 08/10/21 04:55 ABG Sodium 120.3 mmol/L (136.0-145.0) L 08/10/21 04:55 ABG Potassium 5.2 mmol/L (3.40-4.50) H 08/10/21 04:55 ABG Chloride 88.0 mmol/L (98-107) L 08/10/21 04:55 ABG Glucose 85 mg/dL (65-95) 08/10/21 04:55 Oxyhemoglobin 95.4 % (95.0-99.0) 08/09/21 04:30 Carboxyhemoglobin 0.4 (0.5-1.5) L 08/10/21 04:55 FiO2 25 % 08/09/21 04:30 FiO2 % 25.0 08/10/21 04:55 Sodium 129 mmol/L (137-145) L 08/13/21 Unknown Potassium 3.8 mmol/L (3.6-5.0) 08/13/21 Unknown Chloride 90.1 mmol/L (98-107) L 08/13/21 Unknown Carbon Dioxide 25 mmol/L (22-30) 08/13/21 Unknown Anion Gap 18 mmol/L 08/13/21 Unknown BUN 24 mg/dL (7-17) H 08/13/21 Unknown Creatinine 3.8 mg/dL (0.6-1.2) H 08/13/21 Unknown Estimated GFR 15 ml/min 08/13/21 Unknown BUN/Creatinine Ratio 6 % 08/13/21 Unknown Glucose 98 mg/dL (65-100) 08/13/21 Unknown POC Glucose 104 mg/dL (70-105) 08/13/21 11:20 Calcium 9.2 mg/dL (8.4-10.2) 08/13/21 Unknown Phosphorus 3.50 mg/dL (2.5-4.5) 08/13/21 Unknown Magnesium 1.90 mg/dL (1.7-2.3) 08/13/21 Unknown Total Bilirubin 0.70 mg/dL (0.1-1.2) 08/06/21 16:35 AST 18 units/L (5-40) 08/06/21 16:35 ALT 7 units/L (7-56) 08/06/21 16:35 Alkaline Phosphatase 102 units/L (35-129) 08/06/21 16:35 Troponin T 0.183 ng/mL (0.00-0.029) H* D 08/05/21 18:56 Total Protein 6.2 g/dL (6.3-8.2) L 08/06/21 16:35 Albumin 3.2 g/dL (3.9-5) L 08/06/21 16:35 Albumin/Globulin Ratio 1.1 % 08/06/21 16:35 Triglycerides 399 mg/dL (2-149) H 08/13/21 Unknown Cholesterol 170 mg/dL (50-199) 08/05/21 15:55 LDL Cholesterol Direct 106 mg/dL (50-130) 08/05/21 15:55 HDL Cholesterol 32 mg/dL (40-59) L 08/05/21 15:55 Cholesterol/HDL Ratio 5.31 % 08/05/21 15:55 TSH 7.070 mlU/mL (0.270-4.200) H 08/07/21 13:30 Arterial Blood Glucose 85 mg/dL (65-95) 08/10/21 04:55 Arterial Blood Ionized Calcium 4.7 mg/dL (4.6-5.3) 08/10/21 04:55 Coronavirus (PCR) Negative (Negative) 08/07/21 Unknown Hepatitis A IgM Ab Non-reactive (NonReactive) 08/08/21 04:26 Hep Bs Antigen Nonreactive (Negative) 08/08/21 04:26 Hep B Core IgM Ab Non-reactive (NonReactive) 08/08/21 04:26 Hepatitis C Antibody Non-reactive (NonReactive) 08/08/21 04:26 Blood Type O POSITIVE 08/06/21 05:30 Antibody Screen Negative 08/06/21 05:30 Crossmatch See Detail 08/06/21 05:30 Active Medications - Current Medications Current Medications: Generic Name Dose Route Start Last Admin Trade Name Freq PRN Reason Stop Dose Admin Acetaminophen 650 mg 08/06/21 16:30 08/06/21 16:30 Acetaminophen 650 Mg Rect Supp [place] 650 mg Q6H PRN Administration Pain, Mild (1-3) Albuterol 2.5 mg 08/05/21 20:59 Albuterol 2.5 Mg/3 Ml Nebu IH Q4HRT PRN Shortness Of Breath Lipase/Protease/Amylase 1 each 08/07/21 09:47 Lipase 10,500/Protease 25,000/Amylase 43,750 (Units) Dr Thomas FEEDTUBE PRN PRN For Clogged Feeding Tube Aspirin 81 mg 08/07/21 10:00 08/13/21 10:42 Aspirin 81 Mg Tab Chew PO 81 mg QDAY JODI Administration Atorvastatin Calcium 80 mg 08/05/21 22:00 08/12/21 21:00 Atorvastatin 40 Mg Tab PO 80 mg QHS JODI Administration Clonidine HCl 0.1 mg 08/13/21 14:00 Clonidine 0.1 Mg Tab PO Q8HR JODI Clopidogrel Bisulfate 75 mg 08/10/21 10:00 08/13/21 10:42 Clopidogrel 75 Mg Tab PO 75 mg QDAY JODI Administration Dextrose 25 ml 08/06/21 15:08 08/09/21 05:26 Dextrose 50% In Water (25gm) 50 Ml Syringe IV 15 ml Q30MIN PRN Administration Hypoglycemia Protocol Famotidine 10 mg 08/09/21 22:00 08/13/21 10:43 Famotidine 10 Mg Tab PO 10 mg BID JODI Administration Fentanyl 50 mcg 08/05/21 17:25 08/10/21 10:06 Fentanyl 100 Mcg/2 Ml Inj IV 50 mcg Q10MIN PRN Administration ANALGESIA Heparin Sodium (Porcine) 5,000 unit 08/11/21 10:00 08/13/21 10:42 Heparin 5,000 Unit/1 Ml Vial SUB-Q 5,000 unit Q12HR JODI Administration Hydralazine HCl 10 mg 08/06/21 04:21 08/10/21 08:03 Hydralazine 20 Mg/1 Ml Inj IV 10 mg Q6HR PRN Administration Hypertension Hydralazine HCl 50 mg 08/12/21 14:00 08/13/21 05:46 Hydralazine 25 Mg Tab PO 50 mg Q8HR JODI Administration Hydrophilic Ointment 1 applic 08/05/21 17:25 Lip Therapy Vaseline TP Q2HR PRN Dry Lips Fentanyl Citrate 2,000 mcg in 100 mls @ 3.213 mls/hr 08/05/21 18:00 08/10/21 19:10 Fentanyl Drip Premix IV 0 mcg/kg/hr TITR JODI 0 mls/hr Titration Protocol 1 MCG/KG/HR Propofol 1,000 mg in 100 mls @ 1.928 mls/hr 08/06/21 17:00 08/13/21 08:35 Diprivan 10 Mg/Ml IV Infused TITR JODI Titration Protocol 5 MCG/KG/MIN Amiodarone HCl 360 mg/ 200 mls @ 33.333 mls/hr 08/09/21 19:00 08/13/21 07:08 Dextrose IV 0.5 mg/min DIRECT JODI 16.667 mls/hr Administration Protocol 1 MG/MIN Nicardipine HCl 50 mg/ Sodium 250 mls @ 25 mls/hr 08/10/21 16:00 08/13/21 08:30 Chloride IV 12.5 mg/hr TITR JODI 62.5 mls/hr Administration Protocol 5 MG/HR Sodium Chloride 100 mls @ 999 mls/hr 08/12/21 08:52 Nacl 0.9% IV GLENDY PRN Hypotension Isosorbide Dinitrate 20 mg 08/11/21 14:00 08/13/21 05:46 Isosorbide Dinitrate 20 Mg Tab PO 20 mg Q8HR JODI Administration Losartan Potassium 100 mg 08/12/21 10:00 08/13/21 10:43 Losartan 25 Mg Tab PO 100 mg DAILY JODI Administration Metoclopramide HCl 5 mg 08/05/21 21:03 Metoclopramide 10 Mg/2 Ml Inj IV Q6H PRN Nausea And Vomiting Metoprolol Tartrate 100 mg 08/12/21 12:00 08/13/21 10:42 Metoprolol Tartrate 50 Mg Tab PO 100 mg BID JODI Administration Multi-Ingred Cream/Lotion/Oil/Oint 1 applic 08/05/21 17:25 Mineral Oil/Petrolatum, White Ophth Oint 3.5 Gm OU Q4HR PRN Dry Eye(s) Ondansetron HCl 4 mg 08/05/21 21:03 Ondansetron 4 Mg/2 Ml Inj IV Q8H PRN Nausea And Vomiting Oxycodone/Acetaminophen 1 tab 08/05/21 21:03 Oxycodone /Acetaminophen 5-325mg Tab PO Q6H PRN Pain, Moderate (4-6) Senna 8.8 mg 08/07/21 13:00 08/13/21 10:42 Sennosides Oral Liqd 8.8 Mg/5 Ml Oral Liqd FEEDTUBE 8.8 mg BID JODI Administration Simple Syrup 15 ml 08/07/21 09:47 Simple Syrup 15 Ml FEEDTUBE PRN PRN Hypoglycemia Simple Syrup 30 ml 08/07/21 09:47 Simple Syrup 15 Ml FEEDTUBE PRN PRN Hypoglycemia Sodium Bicarbonate 325 mg 08/07/21 09:47 Sodium Bicarbonate 325 Mg Tab FEEDTUBE PRN PRN For Clogged Feeding Tube Sodium Chloride 10 ml 08/05/21 22:00 08/13/21 10:43 Sodium Chloride 0.9% 10 Ml Flush Syringe IV 10 ml BID JODI Administration Sodium Chloride 10 ml 08/05/21 21:03 Sodium Chloride 0.9% 10 Ml Flush Syringe IV PRN PRN LINE FLUSH Nutrition/Malnutrition Assess - Dietary Evaluation Nutrition/Malnutrition Findings: Nutrition Notes Start: 08/07/21 09:12 Freq: Status: Active Protocol: Document 08/09/21 18:21 KALA (Rec: 08/09/21 18:25 KALA [id number]) Nutrition Notes Initial or Follow up Brief Note Current Diet TF-Nepro w/CARBSTEADY @ 32 ml/ hr (since L 08/07). Weight change and time frame No body weight change reported . Weight Status Overweight Subjective/Other Information RD consult for routine F/U on TF tolerance. TF continues without changes. Percent of energy/protein needs met: Prescribed Nepro w/CARBSTEADY @ 32 ml/hr will provide for energy/protein needs (1,403 Kcal/63 g) 100% Kcal; 82% AA, during LOS. #1 Nutrition Diagnosis Inadequate oral intake Diagnosis Progress(for reassessment Continues documentation) Nutrition Intervention Nutrition Support: Continue Nepro w/CARBSTEADY @ 32 ml/hr. Flush: 140 ml water Q 4 hr. Goal #1 Provide at least 75% of energy /protein needs through Enteral Feeding during LOS. Follow-Up By: 08/16/21 Additional Comments Continue monitoring TF tolerance, and BM.
--- NOTE | 2021-08-13 12:10 | Progress Note ---
Assessment and Plan 60 y/o female with known VT in the past, systolic heart failure with BIV AICD admitted with recurrent VT and electrolyte abnormality 08/13/21: Will start Clonidine 0.1 TID given her persistent need for Cardene drip. Will extubate today and transfer to tele floor. Hoping this will help the patient get a bed faster at [facility]. Rate control per cards. 08/12/21: Will discontinue cardene while on HD as goal is to pull 3 liters. Will speak with cards and ask them to call [facility] to see if they have a time frame. Continue supportive measures. Remains on Amio Drip. 08/08/21: Continue supportive measures. Follow up any new cardiac recs. 08/07/21: Await transfer to [facility], continue supportive measures Follow up cards recs most likely needs ablation at [facility] Continue amio drip per cards CCt 31 minutes. Subjective Date of service: 08/13/21 Principal diagnosis: Recurrent VT Interval history: Off sedation and awake. No episodes of VT documented Objective Vital Signs - 12hr 08/13/21 08/13/21 08/13/21 01:00 01:15 02:00 Temperature Pulse Rate 70 70 70 Pulse Rate [ From Monitor] Respiratory 18 10 L Rate Blood Pressure 161/60 155/62 154/62 O2 Sat by Pulse 99 99 97 Oximetry 08/13/21 08/13/21 08/13/21 03:01 03:22 03:45 Temperature Pulse Rate 70 70 Pulse Rate [ 70 From Monitor] Respiratory 11 L 12 Rate Blood Pressure 149/63 O2 Sat by Pulse 99 99 Oximetry 08/13/21 08/13/21 08/13/21 04:00 04:55 05:00 Temperature 98.3 F Pulse Rate 70 70 70 Pulse Rate [ From Monitor] Respiratory 12 14 Rate Blood Pressure 174/70 173/78 173/78 O2 Sat by Pulse 98 98 98 Oximetry 08/13/21 08/13/21 08/13/21 06:01 07:00 07:20 Temperature 99.6 F Pulse Rate 70 70 Pulse Rate [ From Monitor] Respiratory 19 19 Rate Blood Pressure 184/74 162/67 O2 Sat by Pulse 99 97 Oximetry 08/13/21 08/13/21 08/13/21 07:43 08:01 09:00 Temperature Pulse Rate 70 70 70 Pulse Rate [ From Monitor] Respiratory 20 9 L Rate Blood Pressure 165/68 177/72 172/70 O2 Sat by Pulse 98 99 98 Oximetry 08/13/21 08/13/21 08/13/21 10:01 10:42 10:43 Temperature Pulse Rate 70 70 70 Pulse Rate [ From Monitor] Respiratory 15 Rate Blood Pressure 170/67 165/66 165/66 O2 Sat by Pulse 98 Oximetry 08/13/21 08/13/21 11:01 11:36 Temperature 98.5 F Pulse Rate 70 Pulse Rate [ From Monitor] Respiratory 20 Rate Blood Pressure 179/67 O2 Sat by Pulse 99 Oximetry Constitutional: other (intubated and sedated) Eyes: non-icteric ENT: other (orally intubated) Neck: supple Effort: normal Ascultation: Bilateral: clear Percussion: Bilateral: not dull Cardiovascular: regular rate and rhythm (no mrg) Gastrointestinal: normoactive bowel sounds, soft, non-tender, non-distended Integumentary: normal Extremities: no cyanosis, no edema, pink and warm Neurologic: unable to assess Psychiatric: other (unable to assess) CBC and BMP: 08/12/21 05:23 08/13/21 Unknown ABG, PT/INR, D-dimer: ABG ABG pH 7.402 (7.320-7.450) 08/10/21 04:55 POC ABG pCO2 37.9 mmHg (32.0-48.0) 08/10/21 04:55 ABG pCO2 41.2 mm Hg 08/09/21 04:30 POC ABG pO2 83.4 mmHg (83-108) 08/10/21 04:55 ABG pO2 91.5 mm Hg (80.0-90.0) H 08/09/21 04:30 POC ABG HCO3 23.1 08/10/21 04:55 ABG O2 Saturation 96.0 (0-100) 08/10/21 04:55 PT/INR, D-dimer PT 14.2 Sec. (12.2-14.9) 08/06/21 16:35 INR 0.99 (0.87-1.13) 08/06/21 16:35 Abnormal lab findings: Abnormal Labs 08/05/21 08/05/21 08/05/21 15:55 15:55 18:50 WBC 3.7 L RBC 2.98 L Hgb 7.5 L Hct 23.8 L MCH 25 L RDW 18.9 H Plt Count 134 L Lymph % (Auto) Sunflower % (Auto) Lymph # (Auto) Seg Neutrophils % Seg Neuts % (Manual) Lymphocytes % (Manual) Monocytes % (Manual) 18.0 H Eosinophils % (Manual) Basophils % (Manual) 2.0 H Seg Neutrophils # Seg Neutrophils # Man Lymphocytes # (Manual) 0.9 L Monocytes # (Manual) APTT ABG pH 7.523 H POC ABG pO2 ABG pO2 47.1 L ABG HCO3 34.6 H ABG O2 Saturation 85.4 L ABG Base Excess 10.8 H ABG Hemoglobin 7.3 L ABG Sodium ABG Potassium ABG Chloride ABG Glucose Oxyhemoglobin 83.6 L Carboxyhemoglobin Sodium Potassium 2.7 L* Chloride 93.8 L Carbon Dioxide 33 H BUN Creatinine 2.8 H Glucose 124 H POC Glucose Calcium 8.2 L Phosphorus ALT < 5 L Troponin T 0.126 H* Total Protein Albumin 3.5 L Triglycerides 202 H HDL Cholesterol 32 L TSH Arterial Blood Glucose Crossmatch 08/05/21 08/05/21 08/06/21 18:56 Unknown 04:20 WBC RBC Hgb Hct MCH RDW Plt Count Lymph % (Auto) Sunflower % (Auto) Lymph # (Auto) Seg Neutrophils % Seg Neuts % (Manual) Lymphocytes % (Manual) Monocytes % (Manual) Eosinophils % (Manual) Basophils % (Manual) Seg Neutrophils # Seg Neutrophils # Man Lymphocytes # (Manual) Monocytes # (Manual) APTT ABG pH 7.575 H 7.606 H* POC ABG pO2 ABG pO2 142.9 H 111.2 H ABG HCO3 33.2 H 33.6 H ABG O2 Saturation ABG Base Excess 10.4 H 11.2 H ABG Hemoglobin 6.6 L 6.8 L ABG Sodium ABG Potassium ABG Chloride ABG Glucose Oxyhemoglobin Carboxyhemoglobin Sodium Potassium Chloride Carbon Dioxide BUN Creatinine Glucose POC Glucose Calcium Phosphorus ALT Troponin T 0.183 H* D Total Protein Albumin Triglycerides HDL Cholesterol TSH Arterial Blood Glucose Crossmatch 08/06/21 08/06/21 08/06/21 04:29 04:29 04:29 WBC 2.5 L RBC 2.70 L Hgb 6.8 L Hct 21.3 L MCH 25 L RDW 18.1 H Plt Count 126 L Lymph % (Auto) 45.0 H Sunflower % (Auto) 13.6 H Lymph # (Auto) 1.1 L Seg Neutrophils % 37.3 L Seg Neuts % (Manual) Lymphocytes % (Manual) Monocytes % (Manual) Eosinophils % (Manual) Basophils % (Manual) Seg Neutrophils # 0.9 L Seg Neutrophils # Man Lymphocytes # (Manual) Monocytes # (Manual) APTT 38.8 H ABG pH POC ABG pO2 ABG pO2 ABG HCO3 ABG O2 Saturation ABG Base Excess ABG Hemoglobin ABG Sodium ABG Potassium ABG Chloride ABG Glucose Oxyhemoglobin Carboxyhemoglobin Sodium 136 L Potassium 3.0 L Chloride 92.6 L Carbon Dioxide 32 H BUN Creatinine 3.8 H Glucose POC Glucose Calcium Phosphorus ALT Troponin T Total Protein 5.8 L Albumin 3.1 L Triglycerides HDL Cholesterol TSH Arterial Blood Glucose Crossmatch 08/06/21 08/06/21 08/06/21 05:30 07:26 07:26 WBC RBC Hgb 7.0 L Hct 22.5 L MCH RDW Plt Count 127 L Lymph % (Auto) Sunflower % (Auto) Lymph # (Auto) Seg Neutrophils % Seg Neuts % (Manual) Lymphocytes % (Manual) Monocytes % (Manual) Eosinophils % (Manual) Basophils % (Manual) Seg Neutrophils # Seg Neutrophils # Man Lymphocytes # (Manual) Monocytes # (Manual) APTT 37.1 H ABG pH POC ABG pO2 ABG pO2 ABG HCO3 ABG O2 Saturation ABG Base Excess ABG Hemoglobin ABG Sodium ABG Potassium ABG Chloride ABG Glucose Oxyhemoglobin Carboxyhemoglobin Sodium Potassium Chloride Carbon Dioxide BUN Creatinine Glucose POC Glucose Calcium Phosphorus ALT Troponin T Total Protein Albumin Triglycerides HDL Cholesterol TSH Arterial Blood Glucose Crossmatch See Detail 08/06/21 08/06/21 08/06/21 08:06 14:50 16:03 WBC RBC Hgb Hct MCH RDW Plt Count Lymph % (Auto) Sunflower % (Auto) Lymph # (Auto) Seg Neutrophils % Seg Neuts % (Manual) Lymphocytes % (Manual) Monocytes % (Manual) Eosinophils % (Manual) Basophils % (Manual) Seg Neutrophils # Seg Neutrophils # Man Lymphocytes # (Manual) Monocytes # (Manual) APTT ABG pH POC ABG pO2 ABG pO2 ABG HCO3 ABG O2 Saturation ABG Base Excess ABG Hemoglobin ABG Sodium ABG Potassium ABG Chloride ABG Glucose Oxyhemoglobin Carboxyhemoglobin Sodium Potassium 3.1 L Chloride 92.4 L Carbon Dioxide 33 H BUN Creatinine 3.9 H Glucose POC Glucose 59 L 121 H Calcium Phosphorus ALT Troponin T Total Protein Albumin Triglycerides HDL Cholesterol TSH Arterial Blood Glucose Crossmatch 08/06/21 08/06/21 08/06/21 16:35 16:35 17:31 WBC 4.2 L RBC 3.27 L Hgb 8.5 L Hct 26.8 L MCH 26 L RDW 18.7 H Plt Count 124 L Lymph % (Auto) Sunflower % (Auto) 15.5 H Lymph # (Auto) 0.8 L Seg Neutrophils % Seg Neuts % (Manual) Lymphocytes % (Manual) Monocytes % (Manual) Eosinophils % (Manual) Basophils % (Manual) Seg Neutrophils # Seg Neutrophils # Man Lymphocytes # (Manual) Monocytes # (Manual) APTT ABG pH POC ABG pO2 ABG pO2 ABG HCO3 ABG O2 Saturation ABG Base Excess ABG Hemoglobin ABG Sodium ABG Potassium ABG Chloride ABG Glucose Oxyhemoglobin Carboxyhemoglobin Sodium 133 L Potassium Chloride 93.2 L Carbon Dioxide BUN 21 H Creatinine 4.6 H Glucose POC Glucose 62 L Calcium 8.3 L Phosphorus ALT Troponin T Total Protein 6.2 L Albumin 3.2 L Triglycerides HDL Cholesterol TSH Arterial Blood Glucose Crossmatch 08/06/21 08/06/21 08/07/21 18:14 18:22 04:00 WBC 1.0 L* RBC 2.67 L Hgb 7.0 L Hct 21.8 L MCH 26 L RDW 18.7 H Plt Count 82 L Lymph % (Auto) Sunflower % (Auto) Lymph # (Auto) Seg Neutrophils % Seg Neuts % (Manual) 16.0 L Lymphocytes % (Manual) 60.0 H Monocytes % (Manual) Eosinophils % (Manual) 11.0 H Basophils % (Manual) 4.0 H Seg Neutrophils # Seg Neutrophils # Man 0.2 L Lymphocytes # (Manual) 0.6 L Monocytes # (Manual) APTT ABG pH 7.565 H POC ABG pO2 ABG pO2 113.3 H ABG HCO3 29.4 H ABG O2 Saturation ABG Base Excess 6.9 H ABG Hemoglobin 8.3 L ABG Sodium ABG Potassium ABG Chloride ABG Glucose Oxyhemoglobin Carboxyhemoglobin Sodium Potassium Chloride Carbon Dioxide BUN Creatinine Glucose POC Glucose 148 H Calcium Phosphorus ALT Troponin T Total Protein Albumin Triglycerides HDL Cholesterol TSH Arterial Blood Glucose Crossmatch 08/07/21 08/07/21 08/07/21 04:00 04:25 08:30 WBC RBC Hgb Hct MCH RDW Plt Count Lymph % (Auto) Sunflower % (Auto) Lymph # (Auto) Seg Neutrophils % Seg Neuts % (Manual) Lymphocytes % (Manual) Monocytes % (Manual) Eosinophils % (Manual) Basophils % (Manual) Seg Neutrophils # Seg Neutrophils # Man Lymphocytes # (Manual) Monocytes # (Manual) APTT ABG pH 7.609 H* 7.479 H POC ABG pO2 ABG pO2 121.4 H 130.2 H ABG HCO3 28.5 H 30.3 H ABG O2 Saturation ABG Base Excess 7.2 H 6.2 H ABG Hemoglobin 10.7 L 8.1 L ABG Sodium ABG Potassium ABG Chloride ABG Glucose Oxyhemoglobin Carboxyhemoglobin Sodium 133 L Potassium 3.2 L D Chloride 93.9 L Carbon Dioxide BUN 23 H Creatinine 4.3 H Glucose POC Glucose Calcium 8.1 L Phosphorus ALT Troponin T Total Protein Albumin Triglycerides HDL Cholesterol TSH Arterial Blood Glucose Crossmatch 08/07/21 08/07/21 08/07/21 13:18 13:30 15:51 WBC RBC Hgb Hct MCH RDW Plt Count Lymph % (Auto) Sunflower % (Auto) Lymph # (Auto) Seg Neutrophils % Seg Neuts % (Manual) Lymphocytes % (Manual) Monocytes % (Manual) Eosinophils % (Manual) Basophils % (Manual) Seg Neutrophils # Seg Neutrophils # Man Lymphocytes # (Manual) Monocytes # (Manual) APTT ABG pH POC ABG pO2 ABG pO2 ABG HCO3 ABG O2 Saturation ABG Base Excess ABG Hemoglobin ABG Sodium ABG Potassium ABG Chloride ABG Glucose Oxyhemoglobin Carboxyhemoglobin Sodium Potassium Chloride Carbon Dioxide BUN Creatinine Glucose POC Glucose 67 L 58 L Calcium Phosphorus ALT Troponin T Total Protein Albumin Triglycerides HDL Cholesterol TSH 7.070 H Arterial Blood Glucose Crossmatch 08/08/21 08/08/21 08/08/21 04:19 04:26 04:26 WBC RBC Hgb 6.8 L Hct 21.6 L MCH RDW Plt Count 91 L Lymph % (Auto) Sunflower % (Auto) Lymph # (Auto) Seg Neutrophils % Seg Neuts % (Manual) Lymphocytes % (Manual) Monocytes % (Manual) Eosinophils % (Manual) Basophils % (Manual) Seg Neutrophils # Seg Neutrophils # Man Lymphocytes # (Manual) Monocytes # (Manual) APTT ABG pH 7.545 H POC ABG pO2 ABG pO2 136.1 H ABG HCO3 27.3 H ABG O2 Saturation ABG Base Excess 4.5 H ABG Hemoglobin 6.9 L ABG Sodium ABG Potassium ABG Chloride ABG Glucose Oxyhemoglobin Carboxyhemoglobin Sodium 132 L Potassium Chloride 93.5 L Carbon Dioxide BUN Creatinine 3.7 H Glucose POC Glucose Calcium Phosphorus ALT Troponin T Total Protein Albumin Triglycerides HDL Cholesterol TSH Arterial Blood Glucose Crossmatch 08/08/21 08/08/21 08/08/21 09:45 12:23 18:51 WBC RBC Hgb Hct MCH RDW Plt Count Lymph % (Auto) Sunflower % (Auto) Lymph # (Auto) Seg Neutrophils % Seg Neuts % (Manual) Lymphocytes % (Manual) Monocytes % (Manual) Eosinophils % (Manual) Basophils % (Manual) Seg Neutrophils # Seg Neutrophils # Man Lymphocytes # (Manual) Monocytes # (Manual) APTT ABG pH 7.471 H POC ABG pO2 71.1 L ABG pO2 ABG HCO3 ABG O2 Saturation ABG Base Excess ABG Hemoglobin ABG Sodium 128.9 L ABG Potassium ABG Chloride 95.0 L ABG Glucose 64 L Oxyhemoglobin Carboxyhemoglobin Sodium Potassium Chloride Carbon Dioxide BUN Creatinine Glucose POC Glucose 58 L 68 L Calcium Phosphorus ALT Troponin T Total Protein Albumin Triglycerides HDL Cholesterol TSH Arterial Blood Glucose 64 L Crossmatch 08/09/21 08/09/21 08/09/21 04:30 04:33 04:33 WBC 2.4 L RBC 3.16 L Hgb 8.3 L Hct 26.5 L MCH 26 L RDW 18.3 H Plt Count 113 L Lymph % (Auto) Sunflower % (Auto) Lymph # (Auto) Seg Neutrophils % Seg Neuts % (Manual) Lymphocytes % (Manual) Monocytes % (Manual) Eosinophils % (Manual) Basophils % (Manual) Seg Neutrophils # Seg Neutrophils # Man Lymphocytes # (Manual) Monocytes # (Manual) APTT ABG pH POC ABG pO2 ABG pO2 91.5 H ABG HCO3 26.6 H ABG O2 Saturation ABG Base Excess ABG Hemoglobin 9.0 L ABG Sodium ABG Potassium ABG Chloride ABG Glucose Oxyhemoglobin Carboxyhemoglobin Sodium 129 L Potassium Chloride 91.9 L Carbon Dioxide BUN 22 H Creatinine 4.7 H Glucose POC Glucose Calcium Phosphorus ALT Troponin T Total Protein Albumin Triglycerides HDL Cholesterol TSH Arterial Blood Glucose Crossmatch 08/10/21 08/10/21 08/10/21 04:00 04:00 04:55 WBC 3.3 L RBC 3.32 L Hgb 8.9 L Hct 27.6 L MCH 27 L RDW 18.3 H Plt Count Lymph % (Auto) Sunflower % (Auto) Lymph # (Auto) Seg Neutrophils % Seg Neuts % (Manual) Lymphocytes % (Manual) Monocytes % (Manual) 9.0 H Eosinophils % (Manual) Basophils % (Manual) Seg Neutrophils # Seg Neutrophils # Man Lymphocytes # (Manual) 0.6 L Monocytes # (Manual) APTT ABG pH POC ABG pO2 ABG pO2 ABG HCO3 ABG O2 Saturation ABG Base Excess ABG Hemoglobin 9.6 L ABG Sodium 120.3 L ABG Potassium 5.2 H ABG Chloride 88.0 L ABG Glucose Oxyhemoglobin Carboxyhemoglobin 0.4 L Sodium 123 L Potassium 5.5 H D Chloride 84.8 L Carbon Dioxide BUN 30 H Creatinine 5.5 H Glucose 139 H POC Glucose Calcium Phosphorus 5.90 H ALT Troponin T Total Protein Albumin Triglycerides HDL Cholesterol TSH Arterial Blood Glucose Crossmatch 08/10/21 08/11/21 08/11/21 12:17 04:00 05:53 WBC RBC 3.50 L Hgb 9.2 L Hct 29.0 L MCH 26 L RDW 18.4 H Plt Count Lymph % (Auto) Sunflower % (Auto) Lymph # (Auto) Seg Neutrophils % Seg Neuts % (Manual) 76.0 H Lymphocytes % (Manual) 8.0 L Monocytes % (Manual) 13.0 H Eosinophils % (Manual) Basophils % (Manual) Seg Neutrophils # Seg Neutrophils # Man Lymphocytes # (Manual) 0.6 L Monocytes # (Manual) 0.9 H APTT ABG pH POC ABG pO2 ABG pO2 ABG HCO3 ABG O2 Saturation ABG Base Excess ABG Hemoglobin ABG Sodium ABG Potassium ABG Chloride ABG Glucose Oxyhemoglobin Carboxyhemoglobin Sodium 128 L Potassium Chloride 90.3 L Carbon Dioxide BUN 24 H Creatinine 4.3 H Glucose 135 H POC Glucose 142 H Calcium Phosphorus ALT Troponin T Total Protein Albumin Triglycerides HDL Cholesterol TSH Arterial Blood Glucose Crossmatch 08/11/21 08/12/21 08/12/21 16:39 05:23 05:23 WBC RBC 3.20 L Hgb 8.8 L Hct 26.7 L MCH RDW 18.6 H Plt Count Lymph % (Auto) Sunflower % (Auto) Lymph # (Auto) Seg Neutrophils % Seg Neuts % (Manual) Lymphocytes % (Manual) Monocytes % (Manual) Eosinophils % (Manual) Basophils % (Manual) Seg Neutrophils # Seg Neutrophils # Man Lymphocytes # (Manual) Monocytes # (Manual) APTT ABG pH POC ABG pO2 ABG pO2 ABG HCO3 ABG O2 Saturation ABG Base Excess ABG Hemoglobin ABG Sodium ABG Potassium ABG Chloride ABG Glucose Oxyhemoglobin Carboxyhemoglobin Sodium 125 L Potassium Chloride 86.6 L Carbon Dioxide 21 L BUN 34 H Creatinine 5.0 H Glucose 111 H POC Glucose 112 H Calcium Phosphorus ALT Troponin T Total Protein Albumin Triglycerides HDL Cholesterol TSH Arterial Blood Glucose Crossmatch 08/12/21 08/12/21 08/13/21 12:18 17:56 06:01 WBC RBC Hgb Hct MCH RDW Plt Count Lymph % (Auto) Sunflower % (Auto) Lymph # (Auto) Seg Neutrophils % Seg Neuts % (Manual) Lymphocytes % (Manual) Monocytes % (Manual) Eosinophils % (Manual) Basophils % (Manual) Seg Neutrophils # Seg Neutrophils # Man Lymphocytes # (Manual) Monocytes # (Manual) APTT ABG pH POC ABG pO2 ABG pO2 ABG HCO3 ABG O2 Saturation ABG Base Excess ABG Hemoglobin ABG Sodium ABG Potassium ABG Chloride ABG Glucose Oxyhemoglobin Carboxyhemoglobin Sodium Potassium Chloride Carbon Dioxide BUN Creatinine Glucose POC Glucose 140 H 119 H 110 H Calcium Phosphorus ALT Troponin T Total Protein Albumin Triglycerides HDL Cholesterol TSH Arterial Blood Glucose Crossmatch 08/13/21 08/13/21 Unknown Unknown WBC RBC Hgb Hct MCH RDW Plt Count Lymph % (Auto) Sunflower % (Auto) Lymph # (Auto) Seg Neutrophils % Seg Neuts % (Manual) Lymphocytes % (Manual) Monocytes % (Manual) Eosinophils % (Manual) Basophils % (Manual) Seg Neutrophils # Seg Neutrophils # Man Lymphocytes # (Manual) Monocytes # (Manual) APTT ABG pH POC ABG pO2 ABG pO2 ABG HCO3 ABG O2 Saturation ABG Base Excess ABG Hemoglobin ABG Sodium ABG Potassium ABG Chloride ABG Glucose Oxyhemoglobin Carboxyhemoglobin Sodium 129 L Potassium Chloride 90.1 L Carbon Dioxide BUN 24 H Creatinine 3.8 H Glucose POC Glucose Calcium Phosphorus ALT Troponin T Total Protein Albumin Triglycerides 399 H HDL Cholesterol TSH Arterial Blood Glucose Crossmatch Allied health notes reviewed: nursing
--- NOTE | 2021-08-13 12:45 | Progress Note ---
Assessment and Plan - Patient Problems (1) Hypokalemia Current Visit: Yes Status: Acute Plan to address problem: levels stable this morning. We will continue to monitor and replete per protocol. (2) Sustained ventricular tachycardia Current Visit: Yes Status: Acute Plan to address problem: intubated, sedated, and has received lidocaine Per cardiology recommendations. Pending transfer to [place] at this time. (3) Anemia Current Visit: Yes Status: Chronic Qualifiers: Anemia type: due to chronic kidney disease Plan to address problem: JANETH therapy with hemodialysis (4) End stage renal disease on dialysis Current Visit: Yes Status: Chronic Plan to address problem: continue on current Thursday, Thursday, Thursday inpatient hemodialysis schedule. (5) Diabetes Current Visit: No Status: Acute Plan to address problem: diabetes management per primary attending. Subjective Date of service: 08/13/21 Principal diagnosis: Recurrent VT Interval history: no acute changes. Will attempt to extubate today. Received dialysis yesterday without any acute issues. Objective - Vital Signs Vital signs: Vital Signs - 12hr 08/13/21 08/13/21 08/13/21 01:00 01:15 02:00 Temperature Pulse Rate 70 70 70 Pulse Rate [ From Monitor] Respiratory 18 10 L Rate Blood Pressure 161/60 155/62 154/62 O2 Sat by Pulse 99 99 97 Oximetry 08/13/21 08/13/21 08/13/21 03:01 03:22 03:45 Temperature Pulse Rate 70 70 Pulse Rate [ 70 From Monitor] Respiratory 11 L 12 Rate Blood Pressure 149/63 O2 Sat by Pulse 99 99 Oximetry 08/13/21 08/13/21 08/13/21 04:00 04:55 05:00 Temperature 98.3 F Pulse Rate 70 70 70 Pulse Rate [ From Monitor] Respiratory 12 14 Rate Blood Pressure 174/70 173/78 173/78 O2 Sat by Pulse 98 98 98 Oximetry 08/13/21 08/13/21 08/13/21 06:01 07:00 07:20 Temperature 99.6 F Pulse Rate 70 70 Pulse Rate [ From Monitor] Respiratory 19 19 Rate Blood Pressure 184/74 162/67 O2 Sat by Pulse 99 97 Oximetry 08/13/21 08/13/21 08/13/21 07:43 08:01 09:00 Temperature Pulse Rate 70 70 70 Pulse Rate [ From Monitor] Respiratory 20 9 L Rate Blood Pressure 165/68 177/72 172/70 O2 Sat by Pulse 98 99 98 Oximetry 08/13/21 08/13/21 08/13/21 10:01 10:42 10:43 Temperature Pulse Rate 70 70 70 Pulse Rate [ From Monitor] Respiratory 15 Rate Blood Pressure 170/67 165/66 165/66 O2 Sat by Pulse 98 Oximetry 08/13/21 08/13/21 08/13/21 11:01 11:36 12:38 Temperature 98.5 F Pulse Rate 70 Pulse Rate [ From Monitor] Respiratory 20 Rate Blood Pressure 179/67 O2 Sat by Pulse 99 98 Oximetry - General Appearance General appearance: chronically ill, intubated EENT: ATNC Neck: no JVD Respiratory: Present: Decreased Breath Sounds Cardiology: regular Gastrointestinal: normal Integumentary: warm and dry Musculoskeletal: deferred - Lab 08/12/21 05:23 08/13/21 Unknown Most recent lab results ABG pH 7.402 (7.320-7.450) 08/10/21 04:55 ABG pCO2 41.2 mm Hg 08/09/21 04:30 ABG pO2 91.5 mm Hg (80.0-90.0) H 08/09/21 04:30 ABG HCO3 26.6 mmol/L (20.0-26.0) H 08/09/21 04:30 ABG O2 Saturation 96.0 (0-100) 08/10/21 04:55 Calcium 9.2 mg/dL (8.4-10.2) 08/13/21 Unknown Phosphorus 3.50 mg/dL (2.5-4.5) 08/13/21 Unknown Magnesium 1.90 mg/dL (1.7-2.3) 08/13/21 Unknown - Allied health notes Allied health notes reviewed: nursing Medications & Allergies - Medications Allergies/Adverse Reactions: Allergies No Known Allergies Allergy (Unverified 07/10/21 20:57) Home Medications: Home Medications Medication Instructions Recorded Confirmed Last Taken Type Icosapent Ethyl [Vascepa] 2 gm PO BID 07/12/21 07/12/21 Unknown History Losartan [Cozaar] 25 mg PO BID 07/12/21 07/12/21 Unknown History ALBUTEROL NEB's [Proventil 0.083% 2.5 mg IH Q4HRT PRN nebu 07/15/21 Unknown Rx NEBS] Acetaminophen [Acetaminophen 650 mg [place] Q4H PRN supp.rect 07/15/21 Unknown Rx SUPPOS] Acetaminophen [Acetaminophen TAB] 650 mg PO Q4H PRN tablet 07/15/21 Unknown Rx Amiodarone [Cordarone 200 MG TAB] 200 mg PO BID tablet 07/15/21 Unknown Rx AtorvaSTATin [Lipitor] 80 mg PO QHS tablet 07/15/21 Unknown Rx Clopidogrel [Plavix] 75 mg PO QDAY tablet 07/15/21 Unknown Rx Dextrose 50% in Water [D50W (25GM) 50 ml IV Q30MIN PRN syringe 07/15/21 Unknown Rx Syringe] Free Water 60 ml PO Q4HR oral.liqd 07/15/21 Unknown Rx Isosorbide Dinitrate [Isordil] 5 mg PO Q8HR tablet 07/15/21 Unknown Rx Lipase/Protease/Amylase [Pancreaze 1 each FEEDTUBE PRN PRN capsule 07/15/21 Unknown Rx 10,500 Unit] Lispro Insulin [HumaLOG] 0 unit SUB-Q Q6HR units 07/15/21 Unknown Rx Metoprolol [Lopressor TAB] 25 mg PO TID tablet 07/15/21 Unknown Rx Simple Syrup 30 ml FEEDTUBE PRN PRN oral.liqd 07/15/21 Unknown Rx hydrALAZINE [Apresoline INJ] 10 mg IV Q6H PRN vial 07/15/21 Unknown Rx Active Medications: Generic Name Dose Route Start Last Admin Trade Name Freq PRN Reason Stop Dose Admin Acetaminophen 650 mg 08/06/21 16:30 08/06/21 16:30 Acetaminophen 650 Mg Rect Supp [place] 650 mg Q6H PRN Administration Pain, Mild (1-3) Albuterol 2.5 mg 08/05/21 20:59 Albuterol 2.5 Mg/3 Ml Nebu IH Q4HRT PRN Shortness Of Breath Lipase/Protease/Amylase 1 each 08/07/21 09:47 Lipase 10,500/Protease 25,000/Amylase 43,750 (Units) Dr Thomas FEEDTUBE PRN PRN For Clogged Feeding Tube Aspirin 81 mg 08/07/21 10:00 08/13/21 10:42 Aspirin 81 Mg Tab Chew PO 81 mg QDAY JODI Administration Atorvastatin Calcium 80 mg 08/05/21 22:00 08/12/21 21:00 Atorvastatin 40 Mg Tab PO 80 mg QHS JODI Administration Clonidine HCl 0.1 mg 08/13/21 14:00 Clonidine 0.1 Mg Tab PO Q8HR JODI Clopidogrel Bisulfate 75 mg 08/10/21 10:00 08/13/21 10:42 Clopidogrel 75 Mg Tab PO 75 mg QDAY JODI Administration Dextrose 25 ml 08/06/21 15:08 08/09/21 05:26 Dextrose 50% In Water (25gm) 50 Ml Syringe IV 15 ml Q30MIN PRN Administration Hypoglycemia Protocol Famotidine 10 mg 08/09/21 22:00 08/13/21 10:43 Famotidine 10 Mg Tab PO 10 mg BID JODI Administration Fentanyl 50 mcg 08/05/21 17:25 08/10/21 10:06 Fentanyl 100 Mcg/2 Ml Inj IV 50 mcg Q10MIN PRN Administration ANALGESIA Heparin Sodium (Porcine) 5,000 unit 08/11/21 10:00 08/13/21 10:42 Heparin 5,000 Unit/1 Ml Vial SUB-Q 5,000 unit Q12HR JODI Administration Hydralazine HCl 10 mg 08/06/21 04:21 08/10/21 08:03 Hydralazine 20 Mg/1 Ml Inj IV 10 mg Q6HR PRN Administration Hypertension Hydralazine HCl 50 mg 08/12/21 14:00 08/13/21 05:46 Hydralazine 25 Mg Tab PO 50 mg Q8HR JODI Administration Hydrophilic Ointment 1 applic 08/05/21 17:25 Lip Therapy Vaseline TP Q2HR PRN Dry Lips Fentanyl Citrate 2,000 mcg in 100 mls @ 3.213 mls/hr 08/05/21 18:00 08/10/21 19:10 Fentanyl Drip Premix IV 0 mcg/kg/hr TITR JODI 0 mls/hr Titration Protocol 1 MCG/KG/HR Propofol 1,000 mg in 100 mls @ 1.928 mls/hr 08/06/21 17:00 08/13/21 08:35 Diprivan 10 Mg/Ml IV Infused TITR JODI Titration Protocol 5 MCG/KG/MIN Amiodarone HCl 360 mg/ 200 mls @ 33.333 mls/hr 08/09/21 19:00 08/13/21 07:08 Dextrose IV 0.5 mg/min DIRECT JODI 16.667 mls/hr Administration Protocol 1 MG/MIN Nicardipine HCl 50 mg/ Sodium 250 mls @ 25 mls/hr 08/10/21 16:00 08/13/21 08:30 Chloride IV 12.5 mg/hr TITR JODI 62.5 mls/hr Administration Protocol 5 MG/HR Sodium Chloride 100 mls @ 999 mls/hr 08/12/21 08:52 Nacl 0.9% IV GLENDY PRN Hypotension Isosorbide Dinitrate 20 mg 08/11/21 14:00 08/13/21 05:46 Isosorbide Dinitrate 20 Mg Tab PO 20 mg Q8HR JODI Administration Losartan Potassium 100 mg 08/12/21 10:00 08/13/21 10:43 Losartan 25 Mg Tab PO 100 mg DAILY [facility] Administration Metoclopramide HCl 5 mg 08/05/21 21:03 Metoclopramide 10 Mg/2 Ml Inj IV Q6H PRN Nausea And Vomiting Metoprolol Tartrate 100 mg 08/12/21 12:00 08/13/21 10:42 Metoprolol Tartrate 50 Mg Tab PO 100 mg BID [facility] Administration Multi-Ingred Cream/Lotion/Oil/Oint 1 applic 08/05/21 17:25 Mineral Oil/Petrolatum, White Ophth Oint 3.5 Gm OU Q4HR PRN Dry Eye(s) Ondansetron HCl 4 mg 08/05/21 21:03 Ondansetron 4 Mg/2 Ml Inj IV Q8H PRN Nausea And Vomiting Oxycodone/Acetaminophen 1 tab 08/05/21 21:03 Oxycodone /Acetaminophen 5-325mg Tab PO Q6H PRN Pain, Moderate (4-6) Senna 8.8 mg 08/07/21 13:00 08/13/21 10:42 Sennosides Oral Liqd 8.8 Mg/5 Ml Oral Liqd FEEDTUBE 8.8 mg BID JODI Administration Simple Syrup 15 ml 08/07/21 09:47 Simple Syrup 15 Ml FEEDTUBE PRN PRN Hypoglycemia Simple Syrup 30 ml 08/07/21 09:47 Simple Syrup 15 Ml FEEDTUBE PRN PRN Hypoglycemia Sodium Bicarbonate 325 mg 08/07/21 09:47 Sodium Bicarbonate 325 Mg Tab FEEDTUBE PRN PRN For Clogged Feeding Tube Sodium Chloride 10 ml 08/05/21 22:00 08/13/21 10:43 Sodium Chloride 0.9% 10 Ml Flush Syringe IV 10 ml BID JODI Administration Sodium Chloride 10 ml 08/05/21 21:03 Sodium Chloride 0.9% 10 Ml Flush Syringe IV PRN PRN LINE FLUSH
[2021-08-13] MEDS ORDERED: EPINEPHrine RACEMIC 2.25% 0.5ML NEBU IH ONE ×2 (13:06→13:15)
[2021-08-13] MEDS ORDERED: propofoL 200 MG/20 ML VIAL IV ONE (13:09)
[2021-08-13] MEDS ORDERED: SUCCINYLCHOLINE CHLORIDE 200 MG/10 ML INJ MDV ONE (13:28)
--- NOTE | 2021-08-13 13:38 | Event Note ---
Date: 08/13/21 (ICU intubation) Consulted by Dr. Felix for intubation of ICU patient w/ respiratory failure s/p extubation earlier this morning. On arrival, patient obtunded on BiPAP with increased WOB, SpO2 100%, HD stable. Preoxygenated w/ BiPAP in place. Induction w/ propofol 150mg + succinylcholine 120mg IV. Attempted DL w/ MAC 4 but unable to visualize glottis. Switched to glidescope #3, grade 1 view, easy atraumatic intubation with 7.5 oETT secured at 22cm @the lip. Placement confirmed with direct visualization and + CO2 color change. Placed on vent by RT. HD stable w/ HR 70 paced, BP 120s/60s, SpO2 >97% throughout. CXR and sedation orders per ICU team. Intubation by JOSE J Baker. Approx time: 1310 -1320
[2021-08-13] MEDS: cloNIDine 0.1 MG TAB PO SCH ×2 (14:27→23:13)
--- NOTE | 2021-08-13 14:43 | XRay Report ---
CHEST - 1 VIEW KUB INDICATION: ETT placement COMPARISON: Yesterday FINDINGS: SUPPORT DEVICES: Endotracheal tube is at the right mainstem bronchus and should be retracted 4 cm. N asogastric tube is in the distal stomach in satisfactory position. HEART: Stable cardiomediastinal silhouette. LUNGS/PLEURA: Mild patchy multifocal airspace disease greatest in the lung bases especially the left lower lobe. ABDOMEN: Nonobstructive bowel gas pattern. IMPRESSION: 1. Endotracheal tube is at the right mainstem bronchus and should be retracted 4 cm. 2. NG tube in satisfactory position. 3. Mild patchy multifocal airspace disease in the lungs. Signer Name: Chuy Nelson MD Signed: 08/13/2021 2:39 PM Workstation Name: [id number]
[2021-08-14] MEDS: niCARdipine 50 MG in SODIUM CHLORIDE 0.9% 250ML 230 ML IV SCH ×3 (03:20→14:59)
[2021-08-14 05:53] LABS: Hematocrit 25.5 % (30.3-42.9); Hemoglobin 8.5 gm/dl (10.1-14.3); Mean Corpuscular HGB Conc 33 % (30-34); Mean Corpuscular Volume 81 fl (79-97); Platelet Count 274 K/mm3 (140-440); Red Blood Count 3.14 M/mm3 (3.65-5.03); Red Cell Distribution Width 19.1 % (13.2-15.2)
[2021-08-14 06:04] LABS: Calcium 9.4 mg/dL (8.4-10.2)
[2021-08-14] MEDS: hydrALAZINE 25 MG TAB PO SCH (06:39)
[2021-08-14] MEDS: cloNIDine 0.1 MG TAB PO SCH (06:40)
[2021-08-14] MEDS: ISOSORBIDE DINITRATE 20 MG TAB PO SCH ×3 (06:40→21:41)
[2021-08-14] MEDS: hydrALAZINE 20 MG/1 ML INJ IV PRN ×2 (08:17→17:25)
[2021-08-14] MEDS: AMIODARONE 360 MG in DEXTROSE 5% IN WATER 192.8 ML IV SCH (09:28)
[2021-08-14] MEDS: FAMOTIDINE 10 MG TAB PO SCH ×2 (09:49→21:39)
[2021-08-14] MEDS: ASPIRIN 81 MG TAB CHEW PO SCH (09:49)
[2021-08-14] MEDS: LOSARTAN 25 MG TAB PO SCH (09:52)
[2021-08-14] MEDS: METOPROLOL TARTRATE 50 MG TAB PO SCH ×2 (09:52→21:39)
[2021-08-14] MEDS: CLOPIDOGREL 75 MG TAB PO SCH (09:52)
[2021-08-14] MEDS: HEPARIN 5,000 UNIT/1 ML VIAL SUB-Q SCH ×2 (09:53→21:40)
--- NOTE | 2021-08-14 09:55 | Progress Note ---
Assessment and Plan - Patient Problems (1) Hypokalemia Current Visit: Yes Status: Acute Plan to address problem: levels stable this morning. We will continue to monitor and replete per protocol. (2) Hypertension Current Visit: No Status: Chronic Qualifiers: Hypertension type: primary hypertension Qualified Code(s): I10 - Essential (primary) hypertension Plan to address problem: Will increase hydralazine to 100 mg TID. Will also increase UF goals with dialysis treatments. Assess daily for needs of sequential UF treatments in order to optimize volume status. (3) Sustained ventricular tachycardia Current Visit: Yes Status: Acute Plan to address problem: intubated, sedated, and has received lidocaine Per cardiology recommendations. She is paced at this time, HR 70s. (4) Anemia Current Visit: Yes Status: Chronic Qualifiers: Anemia type: due to chronic kidney disease Plan to address problem: JANETH therapy with hemodialysis (5) End stage renal disease on dialysis Current Visit: Yes Status: Chronic Plan to address problem: continue on current Thursday, Thursday, Thursday inpatient hemodialysis schedule. (6) Diabetes Current Visit: No Status: Acute Plan to address problem: diabetes management per primary attending. Subjective Date of service: 08/14/21 Principal diagnosis: Recurrent VT Interval history: Plan for HD today. We will increase her UF goals to 3-3.5L as tolerated. She remains on cardene gtt. Will increase her hydralazine to 100 mg TID. Objective - Vital Signs Vital signs: Vital Signs - 12hr 08/13/21 08/13/21 08/13/21 22:01 22:48 23:00 Temperature Pulse Rate 70 70 70 Pulse Rate [ From Monitor] Respiratory 18 15 13 Rate Blood Pressure 146/77 173/72 O2 Sat by Pulse 99 100 100 Oximetry 08/13/21 08/13/21 08/13/21 23:13 23:15 23:16 Temperature Pulse Rate 70 70 70 Pulse Rate [ From Monitor] Respiratory Rate Blood Pressure 166/72 164/72 164/72 O2 Sat by Pulse Oximetry 08/13/21 08/14/21 08/14/21 23:25 00:00 01:00 Temperature 98.5 F Pulse Rate 70 70 Pulse Rate [ From Monitor] Respiratory 14 11 L 17 Rate Blood Pressure 156/70 165/71 O2 Sat by Pulse 99 99 98 Oximetry 08/14/21 08/14/21 08/14/21 02:00 03:00 03:11 Temperature Pulse Rate 70 70 70 Pulse Rate [ From Monitor] Respiratory 18 16 Rate Blood Pressure 184/79 187/81 176/71 O2 Sat by Pulse 98 99 100 Oximetry 08/14/21 08/14/21 08/14/21 03:20 04:00 04:03 Temperature 97.6 F 98.5 F Pulse Rate 70 70 Pulse Rate [ From Monitor] Respiratory 14 17 Rate Blood Pressure 187/81 O2 Sat by Pulse 99 Oximetry 08/14/21 08/14/21 08/14/21 05:00 06:00 06:39 Temperature Pulse Rate 70 70 70 Pulse Rate [ From Monitor] Respiratory 7 L 6 L Rate Blood Pressure 171/78 157/80 159/71 O2 Sat by Pulse 98 99 Oximetry 08/14/21 08/14/21 08/14/21 06:40 07:00 07:39 Temperature Pulse Rate 70 70 70 Pulse Rate [ From Monitor] Respiratory 11 L Rate Blood Pressure 159/71 178/88 178/78 O2 Sat by Pulse 98 99 Oximetry 08/14/21 08/14/21 08/14/21 07:41 08:00 08:17 Temperature 98.2 F Pulse Rate 70 70 Pulse Rate [ 70 From Monitor] Respiratory 18 Rate Blood Pressure 143/77 185/92 O2 Sat by Pulse 99 Oximetry - General Appearance General appearance: obese, intubated EENT: ATNC Neck: no JVD Respiratory: Present: Decreased Breath Sounds Cardiology: regular Gastrointestinal: normal Integumentary: warm and dry Musculoskeletal: deferred Psychiatric: cooperative - Lab 08/14/21 Unknown 08/14/21 04:00 Most recent lab results ABG pH 7.402 (7.320-7.450) 08/10/21 04:55 ABG pCO2 41.2 mm Hg 08/09/21 04:30 ABG pO2 91.5 mm Hg (80.0-90.0) H 08/09/21 04:30 ABG HCO3 26.6 mmol/L (20.0-26.0) H 08/09/21 04:30 ABG O2 Saturation 96.0 (0-100) 08/10/21 04:55 Calcium 9.4 mg/dL (8.4-10.2) 08/14/21 04:00 Phosphorus 4.00 mg/dL (2.5-4.5) 08/14/21 04:00 Magnesium 2.00 mg/dL (1.7-2.3) 08/14/21 04:00 - Allied health notes Allied health notes reviewed: nursing Medications & Allergies - Medications Allergies/Adverse Reactions: Allergies No Known Allergies Allergy (Unverified 07/10/21 20:57) Home Medications: Home Medications Medication Instructions Recorded Confirmed Last Taken Type Icosapent Ethyl [Vascepa] 2 gm PO BID 07/12/21 07/12/21 Unknown History Losartan [Cozaar] 25 mg PO BID 07/12/21 07/12/21 Unknown History ALBUTEROL NEB's [Proventil 0.083% 2.5 mg IH Q4HRT PRN nebu 07/15/21 Unknown Rx NEBS] Acetaminophen [Acetaminophen 650 mg [place] Q4H PRN supp.rect 07/15/21 Unknown Rx SUPPOS] Acetaminophen [Acetaminophen TAB] 650 mg PO Q4H PRN tablet 07/15/21 Unknown Rx Amiodarone [Cordarone 200 MG TAB] 200 mg PO BID tablet 07/15/21 Unknown Rx AtorvaSTATin [Lipitor] 80 mg PO QHS tablet 07/15/21 Unknown Rx Clopidogrel [Plavix] 75 mg PO QDAY tablet 07/15/21 Unknown Rx Dextrose 50% in Water [D50W (25GM) 50 ml IV Q30MIN PRN syringe 07/15/21 Unknown Rx Syringe] Free Water 60 ml PO Q4HR oral.liqd 07/15/21 Unknown Rx Isosorbide Dinitrate [Isordil] 5 mg PO Q8HR tablet 07/15/21 Unknown Rx Lipase/Protease/Amylase [Pancreaze 1 each FEEDTUBE PRN PRN capsule 07/15/[address] 10,500 Unit] Lispro Insulin [HumaLOG] 0 unit SUB-Q Q6HR units 07/15/21 Unknown Rx Metoprolol [Lopressor TAB] 25 mg PO TID tablet 07/15/21 Unknown Rx Simple Syrup 30 ml FEEDTUBE PRN PRN oral.liqd 07/15/21 Unknown Rx hydrALAZINE [Apresoline INJ] 10 mg IV Q6H PRN vial 07/15/21 Unknown Rx Active Medications: Generic Name Dose Route Start Last Admin Trade Name Freq PRN Reason Stop Dose Admin Acetaminophen 650 mg 08/06/21 16:30 08/06/21 16:30 Acetaminophen 650 Mg Rect Supp [place] 650 mg Q6H PRN Administration Pain, Mild (1-3) Albuterol 2.5 mg 08/05/21 20:59 Albuterol 2.5 Mg/3 Ml Nebu IH Q4HRT PRN Shortness Of Breath Lipase/Protease/Amylase 1 each 08/07/21 09:47 Lipase 10,500/Protease 25,000/Amylase 43,750 (Units) Dr Thomas FEEDTUBE PRN PRN For Clogged Feeding Tube Aspirin 81 mg 08/07/21 10:00 08/13/21 10:42 Aspirin 81 Mg Tab Chew PO 81 mg QDAY JODI Administration Atorvastatin Calcium 80 mg 08/05/21 22:00 08/13/21 23:13 Atorvastatin 40 Mg Tab PO 80 mg QHS JODI Administration Clonidine HCl 0.1 mg 08/13/21 14:00 08/14/21 06:40 Clonidine 0.1 Mg Tab PO 0.1 mg Q8HR JODI Administration Clopidogrel Bisulfate 75 mg 08/10/21 10:00 08/13/21 10:42 Clopidogrel 75 Mg Tab PO 75 mg QDAY JODI Administration Dextrose 25 ml 08/06/21 15:08 08/09/21 05:26 Dextrose 50% In Water (25gm) 50 Ml Syringe IV 15 ml Q30MIN PRN Administration Hypoglycemia Protocol Famotidine 10 mg 08/09/21 22:00 08/13/21 23:13 Famotidine 10 Mg Tab PO 10 mg BID JODI Administration Fentanyl 50 mcg 08/05/21 17:25 08/10/21 10:06 Fentanyl 100 Mcg/2 Ml Inj IV 50 mcg Q10MIN PRN Administration ANALGESIA Heparin Sodium (Porcine) 5,000 unit 08/11/21 10:00 08/13/21 23:14 Heparin 5,000 Unit/1 Ml Vial SUB-Q 5,000 unit Q12HR JODI Administration Hydralazine HCl 10 mg 08/06/21 04:21 08/14/21 08:17 Hydralazine 20 Mg/1 Ml Inj IV 10 mg Q6HR PRN Administration Hypertension Hydralazine HCl 50 mg 08/12/21 14:00 08/14/21 06:39 Hydralazine 25 Mg Tab PO 50 mg Q8HR JODI Administration Hydrophilic Ointment 1 applic 08/05/21 17:25 Lip Therapy Vaseline TP Q2HR PRN Dry Lips Fentanyl Citrate 2,000 mcg in 100 mls @ 3.213 mls/hr 08/05/21 18:00 08/10/21 19:10 Fentanyl Drip Premix IV 0 mcg/kg/hr TITR JODI 0 mls/hr Titration Protocol 1 MCG/KG/HR Propofol 1,000 mg in 100 mls @ 1.928 mls/hr 08/06/21 17:00 08/13/21 08:35 Diprivan 10 Mg/Ml IV Infused TITR JODI Titration Protocol 5 MCG/KG/MIN Amiodarone HCl 360 mg/ 200 mls @ 33.333 mls/hr 08/09/21 19:00 08/14/21 09:28 Dextrose IV 0.5 mg/min DIRECT JODI 16.667 mls/hr Administration Protocol 1 MG/MIN Nicardipine HCl 50 mg/ Sodium 250 mls @ 25 mls/hr 08/10/21 16:00 08/14/21 09:28 Chloride IV 10 mg/hr TITR JODI 50 mls/hr Administration Protocol 5 MG/HR Sodium Chloride 100 mls @ 999 mls/hr 08/12/21 08:52 Nacl 0.9% IV GLENDY PRN Hypotension Isosorbide Dinitrate 20 mg 08/11/21 14:00 08/14/21 06:40 Isosorbide Dinitrate 20 Mg Tab PO 20 mg Q8HR JODI Administration Losartan Potassium 100 mg 08/12/21 10:00 08/13/21 10:43 Losartan 25 Mg Tab PO 100 mg DAILY JODI Administration Metoclopramide HCl 5 mg 08/05/21 21:03 Metoclopramide 10 Mg/2 Ml Inj IV Q6H PRN Nausea And Vomiting Metoprolol Tartrate 100 mg 08/12/21 12:00 08/13/21 23:16 Metoprolol Tartrate 50 Mg Tab PO 100 mg BID JODI Administration Multi-Ingred Cream/Lotion/Oil/Oint 1 applic 08/05/21 17:25 Mineral Oil/Petrolatum, White Ophth Oint 3.5 Gm OU Q4HR PRN Dry Eye(s) Ondansetron HCl 4 mg 08/05/21 21:03 Ondansetron 4 Mg/2 Ml Inj IV Q8H PRN Nausea And Vomiting Oxycodone/Acetaminophen 1 tab 08/05/21 21:03 Oxycodone /Acetaminophen 5-325mg Tab PO Q6H PRN Pain, Moderate (4-6) Senna 8.8 mg 08/07/21 13:00 08/13/21 23:14 Sennosides Oral Liqd 8.8 Mg/5 Ml Oral Liqd FEEDTUBE 8.8 mg BID JODI Administration Simple Syrup 15 ml 08/07/21 09:47 Simple Syrup 15 Ml FEEDTUBE PRN PRN Hypoglycemia Simple Syrup 30 ml 08/07/21 09:47 Simple Syrup 15 Ml FEEDTUBE PRN PRN Hypoglycemia Sodium Bicarbonate 325 mg 08/07/21 09:47 Sodium Bicarbonate 325 Mg Tab FEEDTUBE PRN PRN For Clogged Feeding Tube Sodium Chloride 10 ml 08/05/21 22:00 08/13/21 23:15 Sodium Chloride 0.9% 10 Ml Flush Syringe IV 10 ml BID JODI Administration Sodium Chloride 10 ml 08/05/21 21:03 Sodium Chloride 0.9% 10 Ml Flush Syringe IV PRN PRN LINE FLUSH
[2021-08-14] MEDS ORDERED: SODIUM CHLORIDE 0.9% 100 ML IV PRN ×2 (09:56→17:06)
--- NOTE | 2021-08-14 10:51 | Progress Note ---
Assessment and Plan Assessment and plan: This is 60-year-old female with ESRD on HD, recurrent AICD discharges, V. tach, cardiac arrest, anemia of chronic disease, CAD, systolic HF and HTN admitted for V. tach storm and severe hypokalemia Hospital Course to Date: This is 60-year-old female with ESRD on HD, recurrent AICD discharges, systolic heart failure, V. tach, cardiac arrest, anemia, CAD and HTN who presents to the emergency department from her dialysis center on 08/05 for severe muscle spasms secondary to AICD discharges per patient. She also had questionable seizures in the dialysis center. Patient was started on amiodarone and lidocaine. Patient was intubated for airway protection in the emergency department and work-up also revealed severe hypokalemia. Patient was admitted to the hospital service with consult cardiology, nephrology and [facility]. 08/06/2021: Patient is sedated, Transfer to [facility] arranged 08/07: COVID-19 PCR negative. Patient received hemodialysis today. Off Cardene drip. Patient has been OG tube for p.o. BP medications. Thrombocytopenia persists therefore anticoagulation is held. Patient is leukopenia also. We will continue to trend CBC. Persistent hypoglycemia and D10 drip increased to 30 ml/hr. negative Covid test relayed to [facility]. 08/08: 1 unit prbc today, will start TF today. Still awaiting [facility] bed. 08/09: awaiting transfer to [facility]. TF nearly at goal so anticipate stopping dextrose IVF soon. Midline to be placed 08/10/2021: Received HD today. BP remains elevated therefore started on cardene gtt. Cardiology aware. No beds available yet. 08/11/2021: Cardene gtt infusing, CT head ordered as per nurse patient is not really responding (withdraw/ grimace to pain when off sedation/PERRL/intact cough/gag on PE). 08/12: ANGELINE overnight. Remains on the vent and sedated. On Amio gtt, A-pacing on the monitor, still hypertensive on cardene gtt, home antihypertensive was restarted. Plan for HD this am, hypernatremia too be corrected per Nephro. 08/13: Plan for SAT and SBT this am for possible extubation. Patient remains hypertensive on cardene gtt, clonidine added. 08/14: Patient s/p reintubation by anesthesia. Awake and alert following commands, not on any sedation. Remains hypertensive on amio and cardene gtt. D/w cardio plan to switch to PO Amio and to adjust antihypertensive therapy, hopefully can wean off cardene gtt. Plan to possible transfer patient to [facility] as a way of getting patient into the [facility] system for the needed ablation. Case horacio de la cruz to arrange Assessment and Plan #Neuro: -Intubated,not on any sedation -AAO, following simple commands -Avoid benzodiazepine to reduce the possibility of delirium -PRN analgesia for CPOT greater than 3 -Maintenance of sleep-wake cycle #CV:Hypertension #VTach Storm, AICD is on -Presented muscle spasms 2/2 to AICD discharge -On amio gtt, plan to switch to PO -Patient is currently A-pacing on the monitor, HR 70 -Hypertensive, on cardene gtt -Cardiology consulted, appreciate recommendations -D/w Cardio plan to adjust antihypertensive meds in an attempt to wean off cardene gtt -Continue antihypertensive per Cardio -Continue Blood pressure monitoring for SBP less than 160 -Continue ASA,plavix, and statin -On AC-Heparin Subq -Awaiting transfer to [facility] #Respiratory:Acute Hypoxemic Respiratory Failure -Intubated in the ED on 08/05 -Extubated and reintubated on 08/14 -Vent setting:A/C-30%,6,12,375 -This AM ABG pending -CCM consulted, appreciate recommendations -VAP bundle addressed -Aspiration precaution HOB above 30 -Daily SBT and SAT trials as tolerated -Daily ABG and CXR per CCM -Continue SPO2 monitoring for SPO2 goal above 92% #GI:TF -Continue enteral Nutritiom -Nutrition consult for tube feeding -Continue PPI -Continue BR: Senokot #: ESRD on HD #Hyponatremia #Hypokalemia-resolved -Presented with severe electrolytes imbalance -Nephrology consulted, appreciate recommendations -Continue HD per nephrology -Strict intake and output -Daily weight -Avoid nephrotoxic medications; Renally dose medications -Monitor and replace electrolytes as needed #Heme:Acute on Chronic Anemia of chronic disease #Acute blood loss-resolved #Thrombocytopenia (resolved) -S/p 2 unit PRBC -No s/s of any active bleeding -Trend CBC -Transfuse for hemoglobin less than 7 -Epogen per nephrology -Continue AC- heparin subq -SCDs to bilateral LE while in bed #Endo:Glycemic Control #Hypoglycemia -Was initially hypoglycemic S/p D10 for hypoglycemia -Continue SSI Q6hrs while on TF -Avoid hypoglycemia -Continue Hypoglycemic Protocol Dispo: AWAITING TRANSFER TO [facility] since 08/06/2021 The high probability of a clinically significant sudden or life-threatening deterioration of the [Respiratory,Renal,CV] and endocrine system required my full and direct attention, intervention and postoperative management. The aggregate critical care time was [60] minutes. The time is in addition to time spent performing reported procedures but includes the following: [x] 1: Data review and interpretation [x] 2: Patient assessment and monitoring of vital signs [x] 3: Documentation [x] 4: Medication orders and management Disposition Plan: ICU Total Time Spent with Patient (Minutes): 60 History Interval history: Patient seen and examined at the bedside. Patient was extubated and reintubated yesterday by anesthesia. Awake and alert on the vent this am, following simple commands. ANGELINE overnight Hospitalist Physical - Constitutional Vitals: Temp Pulse Resp BP Pulse Ox 98.2 F 70 18 185/79 99 08/14/21 07:41 08/14/21 09:52 08/14/21 08:00 08/14/21 09:52 08/14/21 08:00 General appearance: Present: no acute distress, other (Intubated) - EENT Eyes: Present: PERRL ENT: hearing intact - Neck Neck: Present: normal ROM - Respiratory Respiratory effort: normal Respiratory: bilateral: diminished - Cardiovascular Rhythm: regular Heart Sounds: Present: S1 & S2 - Extremities Extremities: no ischemia, pulses intact, pulses symmetrical Extremity abnormal: edema - Peripheral Assessment Generalized Edema Type: Non-pitting Edema Degree: 1+ Capillary Refill: < 3 seconds Skin Temperature: Warm Peripheral Pulses: within normal limits - Abdominal General gastrointestinal: soft, non-tender, normal bowel sounds - Integumentary Integumentary: Present: warm, dry - Psychiatric Psychiatric: appropriate mood/affect, cooperative - Neurologic Neurologic: moves all extremities, other (Awake and alert, not on any sedation, following commands) - Allied Health Allied health notes reviewed: nursing HEART Score - HEART Score Age: 45-65 Risk factors: > 3 risk factors or hx of atherosclerotic disease Troponin: Troponin T 0.183 ng/mL (0.00-0.029) H* D 08/05/21 18:56 Troponin: 1-3x normal limit - Critical Actions Critical Actions: 4-6 pts:12-16.6% risk of adverse cardiac event. Should be admitted Results - Labs CBC & Chem 7: 08/14/21 Unknown 08/14/21 04:00 Labs: Laboratory Last Values WBC 7.6 K/mm3 (4.5-11.0) 08/14/21 Unknown RBC 3.14 M/mm3 (3.65-5.03) L 08/14/21 Unknown Hgb 8.5 gm/dl (10.1-14.3) L 08/14/21 Unknown Hct 25.5 % (30.3-42.9) L 08/14/21 Unknown MCV 81 fl (79-97) 08/14/21 Unknown MCH 27 pg (28-32) L 08/14/21 Unknown MCHC 33 % (30-34) 08/14/21 Unknown RDW 19.1 % (13.2-15.2) H 08/14/21 Unknown Plt Count 274 K/mm3 (140-440) 08/14/21 Unknown Lymph % (Auto) Job Captain 08/07/21 04:00 [place] % (Auto) Job Captain 08/11/21 04:00 Eos % (Auto) 2.2 % (0.0-4.3) 08/06/21 16:35 Baso % (Auto) Job Captain 08/07/21 04:00 Lymph # (Auto) 0.8 K/mm3 (1.2-5.4) L 08/06/21 16:35 [place] # (Auto) 0.7 K/mm3 (0.0-0.8) 08/06/21 16:35 Eos # (Auto) 0.1 K/mm3 (0.0-0.4) 08/06/21 16:35 Baso # (Auto) 0.1 K/mm3 (0.0-0.1) 08/06/21 16:35 Add Manual Diff Complete 08/11/21 04:00 Total Counted 100 08/11/21 04:00 Seg Neutrophils % Job Captain 08/07/21 04:00 Seg Neuts % (Manual) 76.0 % (40.0-70.0) H 08/11/21 04:00 Band Neutrophils % 2.0 % 08/11/21 04:00 Lymphocytes % (Manual) 8.0 % (13.4-35.0) L 08/11/21 04:00 Reactive Lymphs % (Man) 5.0 % 08/07/21 04:00 Monocytes % (Manual) 13.0 % (0.0-7.3) H 08/11/21 04:00 Eosinophils % (Manual) 1.0 % (0.0-4.3) 08/10/21 04:00 Basophils % (Manual) 4.0 % (0.0-1.8) H 08/07/21 04:00 Metamyelocytes % 1.0 % 08/11/21 04:00 Nucleated RBC % Not Reportable 08/11/21 04:00 Seg Neutrophils # 2.6 K/mm3 (1.8-7.7) 08/06/21 16:35 Seg Neutrophils # Man 5.2 K/mm3 (1.8-7.7) 08/11/21 04:00 Band Neutrophils # 0.1 K/mm3 08/11/21 04:00 Lymphocytes # (Manual) 0.6 K/mm3 (1.2-5.4) L 08/11/21 04:00 Abs React Lymphs (Man) 0.0 K/mm3 08/11/21 04:00 Monocytes # (Manual) 0.9 K/mm3 (0.0-0.8) H 08/11/21 04:00 Eosinophils # (Manual) 0.0 K/mm3 (0.0-0.4) 08/11/21 04:00 Basophils # (Manual) 0.0 K/mm3 (0.0-0.1) 08/11/21 04:00 Metamyelocytes # 0.1 K/mm3 08/11/21 04:00 Myelocytes # 0.0 K/mm3 08/11/21 04:00 Promyelocytes # 0.0 K/mm3 08/11/21 04:00 Blast Cells # 0.0 K/mm3 08/11/21 04:00 WBC Morphology Not Reportable 08/11/21 04:00 WBC Morphology TNR 08/11/21 04:00 Hypersegmented Neuts Not Reportable 08/11/21 04:00 Hyposegmented Neuts Not Reportable 08/11/21 04:00 Hypogranular Neuts Not Reportable 08/11/21 04:00 Smudge Cells Not Reportable 08/11/21 04:00 Toxic Granulation Not Reportable 08/11/21 04:00 Toxic Vacuolation Not Reportable 08/11/21 04:00 Dohle Bodies Not Reportable 08/11/21 04:00 Pelger-Huet Anomaly Not Reportable 08/11/21 04:00 Claudio Rods Not Reportable 08/11/21 04:00 Platelet Estimate Consistent w auto 08/11/21 04:00 Clumped Platelets Not Reportable 08/11/21 04:00 Plt Clumps, EDTA Not Reportable 08/11/21 04:00 Large Platelets Not Reportable 08/11/21 04:00 Giant Platelets Not Reportable 08/11/21 04:00 Platelet Satelliting Not Reportable 08/11/21 04:00 Plt Morphology Comment Not Reportable 08/11/21 04:00 RBC Morphology Not Reportable 08/11/21 04:00 Dimorphic RBCs Not Reportable 08/11/21 04:00 Polychromasia Not Reportable 08/11/21 04:00 Hypochromasia Few 08/11/21 04:00 Poikilocytosis Not Reportable 08/11/21 04:00 Anisocytosis Not Reportable 08/11/21 04:00 Microcytosis Not Reportable 08/11/21 04:00 Macrocytosis Not Reportable 08/11/21 04:00 Spherocytes Not Reportable 08/11/21 04:00 Pappenheimer Bodies Not Reportable 08/11/21 04:00 Sickle Cells Not Reportable 08/11/21 04:00 Target Cells Few 08/11/21 04:00 Tear Drop Cells Not Reportable 08/11/21 04:00 Ovalocytes Not Reportable 08/11/21 04:00 Helmet Cells Not Reportable 08/11/21 04:00 [place] Bodies Not Reportable 08/11/21 04:00 Warren Rings Not Reportable 08/11/21 04:00 [place] Cells Not Reportable 08/11/21 04:00 Bite Cells Not Reportable 08/11/21 04:00 Crenated Cell Not Reportable 08/11/21 04:00 Elliptocytes Not Reportable 08/11/21 04:00 Acanthocytes (Spur) Not Reportable 08/11/21 04:00 Rouleaux Not Reportable 08/11/21 04:00 Hemoglobin C Crystals Not Reportable 08/11/21 04:00 Schistocytes Not Reportable 08/11/21 04:00 Malaria parasites Not Reportable 08/11/21 04:00 Aleks Bodies Not Reportable 08/11/21 04:00 Hem Pathologist Commnt No 08/11/21 04:00 PT 14.2 Sec. (12.2-14.9) 08/06/21 16:35 INR 0.99 (0.87-1.13) 08/06/21 16:35 APTT 37.1 Sec. (24.2-36.6) H 08/06/21 07:26 ABG pH 7.402 (7.320-7.450) 08/10/21 04:55 POC ABG pCO2 37.9 mmHg (32.0-48.0) 08/10/21 04:55 ABG pCO2 41.2 mm Hg 08/09/21 04:30 POC ABG pO2 83.4 mmHg (83-108) 08/10/21 04:55 ABG pO2 91.5 mm Hg (80.0-90.0) H 08/09/21 04:30 POC ABG HCO3 23.1 08/10/21 04:55 ABG HCO3 26.6 mmol/L (20.0-26.0) H 08/09/21 04:30 ABG O2 Saturation 96.0 (0-100) 08/10/21 04:55 ABG O2 Content 12.3 (0.0-44) 08/09/21 04:30 POC ABG Base Excess -1.5 08/10/21 04:55 ABG Base Excess 2.0 mmol/L (-2.0-3.0) 08/09/21 04:30 ABG Hemoglobin 9.6 (12.0-17.5) L 08/10/21 04:55 ABG Oxyhemoglobin 95.3 (94-98) 08/10/21 04:55 ABG Carboxyhemoglobin 1.4 % (0.0-5.0) 08/09/21 04:30 ABG Methemoglobin 0.3 (0.0-1.5) 08/10/21 04:55 ABG Sodium 120.3 mmol/L (136.0-145.0) L 08/10/21 04:55 ABG Potassium 5.2 mmol/L (3.40-4.50) H 08/10/21 04:55 ABG Chloride 88.0 mmol/L (98-107) L 08/10/21 04:55 ABG Glucose 85 mg/dL (65-95) 08/10/21 04:55 Oxyhemoglobin 95.4 % (95.0-99.0) 08/09/21 04:30 Carboxyhemoglobin 0.4 (0.5-1.5) L 08/10/21 04:55 FiO2 25 % 08/09/21 04:30 FiO2 % 25.0 08/10/21 04:55 Sodium 128 mmol/L (137-145) L 08/14/21 04:00 Potassium 3.9 mmol/L (3.6-5.0) 08/14/21 04:00 Chloride 89.7 mmol/L (98-107) L 08/14/21 04:00 Carbon Dioxide 23 mmol/L (22-30) 08/14/21 04:00 Anion Gap 19 mmol/L 08/14/21 04:00 BUN 36 mg/dL (7-17) H 08/14/21 04:00 Creatinine 4.2 mg/dL (0.6-1.2) H 08/14/21 04:00 Estimated GFR 13 ml/min 08/14/21 04:00 BUN/Creatinine Ratio 9 % 08/14/21 04:00 Glucose 93 mg/dL (65-100) 08/14/21 04:00 POC Glucose 111 mg/dL (70-105) H 08/14/21 05:44 Calcium 9.4 mg/dL (8.4-10.2) 08/14/21 04:00 Phosphorus 4.00 mg/dL (2.5-4.5) 08/14/21 04:00 Magnesium 2.00 mg/dL (1.7-2.3) 08/14/21 04:00 Total Bilirubin 0.70 mg/dL (0.1-1.2) 08/06/21 16:35 AST 18 units/L (5-40) 08/06/21 16:35 ALT 7 units/L (7-56) 08/06/21 16:35 Alkaline Phosphatase 102 units/L (35-129) 08/06/21 16:35 Troponin T 0.183 ng/mL (0.00-0.029) H* D 08/05/21 18:56 Total Protein 6.2 g/dL (6.3-8.2) L 08/06/21 16:35 Albumin 3.2 g/dL (3.9-5) L 08/06/21 16:35 Albumin/Globulin Ratio 1.1 % 08/06/21 16:35 Triglycerides 399 mg/dL (2-149) H 08/13/21 Unknown Cholesterol 170 mg/dL (50-199) 08/05/21 15:55 LDL Cholesterol Direct 106 mg/dL (50-130) 08/05/21 15:55 HDL Cholesterol 32 mg/dL (40-59) L 08/05/21 15:55 Cholesterol/HDL Ratio 5.31 % 08/05/21 15:55 TSH 7.070 mlU/mL (0.270-4.200) H 08/07/21 13:30 Arterial Blood Glucose 85 mg/dL (65-95) 08/10/21 04:55 Arterial Blood Ionized Calcium 4.7 mg/dL (4.6-5.3) 08/10/21 04:55 Coronavirus (PCR) Negative (Negative) 08/07/21 Unknown Hepatitis A IgM Ab Non-reactive (NonReactive) 08/08/21 04:26 Hep Bs Antigen Nonreactive (Negative) 08/08/21 04:26 Hep B Core IgM Ab Non-reactive (NonReactive) 08/08/21 04:26 Hepatitis C Antibody Non-reactive (NonReactive) 08/08/21 04:26 Blood Type O POSITIVE 08/06/21 05:30 Antibody Screen Negative 08/06/21 05:30 Crossmatch See Detail 08/06/21 05:30 Active Medications - Current Medications Current Medications: Generic Name Dose Route Start Last Admin Trade Name Freq PRN Reason Stop Dose Admin Acetaminophen 650 mg 08/06/21 16:30 08/06/21 16:30 Acetaminophen 650 Mg Rect Supp TN 650 mg Q6H PRN Administration Pain, Mild (1-3) Albuterol 2.5 mg 08/05/21 20:59 Albuterol 2.5 Mg/3 Ml Nebu IH Q4HRT PRN Shortness Of Breath Amiodarone HCl 400 mg 08/14/21 11:00 Amiodarone 200 Mg Tab PO BID JODI Lipase/Protease/Amylase 1 each 08/07/21 09:47 Lipase 10,500/Protease 25,000/Amylase 43,750 (Units) Dr Cap FEEDTUBE PRN PRN For Clogged Feeding Tube Aspirin 81 mg 08/07/21 10:00 08/14/21 09:49 Aspirin 81 Mg Tab Chew PO 81 mg QDAY JODI Administration Atorvastatin Calcium 80 mg 08/05/21 22:00 08/13/21 23:13 Atorvastatin 40 Mg Tab PO 80 mg QHS JODI Administration Clonidine HCl 0.1 mg 08/13/21 14:00 08/14/21 06:40 Clonidine 0.1 Mg Tab PO 0.1 mg Q8HR JODI Administration Clopidogrel Bisulfate 75 mg 08/10/21 10:00 08/14/21 09:52 Clopidogrel 75 Mg Tab PO 75 mg QDAY JODI Administration Dextrose 25 ml 08/06/21 15:08 08/09/21 05:26 Dextrose 50% In Water (25gm) 50 Ml Syringe IV 15 ml Q30MIN PRN Administration Hypoglycemia Protocol Famotidine 10 mg 08/09/21 22:00 08/14/21 09:49 Famotidine 10 Mg Tab PO 10 mg BID JODI Administration Fentanyl 50 mcg 08/05/21 17:25 08/10/21 10:06 Fentanyl 100 Mcg/2 Ml Inj IV 50 mcg Q10MIN PRN Administration ANALGESIA Heparin Sodium (Porcine) 5,000 unit 08/11/21 10:00 08/14/21 09:53 Heparin 5,000 Unit/1 Ml Vial SUB-Q 5,000 unit Q12HR JODI Administration Hydralazine HCl 10 mg 08/06/21 04:21 08/14/21 08:17 Hydralazine 20 Mg/1 Ml Inj IV 10 mg Q6HR PRN Administration Hypertension Hydralazine HCl 100 mg 08/14/21 10:00 Hydralazine 100 Mg Tab PO Q8HR [facility] Hydrophilic Ointment 1 applic 08/05/21 17:25 Lip Therapy Vaseline TP Q2HR PRN Dry Lips Fentanyl Citrate 2,000 mcg in 100 mls @ 3.213 mls/hr 08/05/21 18:00 08/10/21 19:10 Fentanyl Drip Premix IV 0 mcg/kg/hr TITR JODI 0 mls/hr Titration Protocol 1 MCG/KG/HR Propofol 1,000 mg in 100 mls @ 1.928 mls/hr 08/06/21 17:00 08/13/21 08:35 Diprivan 10 Mg/Ml IV Infused TITR JODI Titration Protocol 5 MCG/KG/MIN Nicardipine HCl 50 mg/ Sodium 250 mls @ 25 mls/hr 08/10/21 16:00 08/14/21 09:28 Chloride IV 10 mg/hr TITR JODI 50 mls/hr Administration Protocol 5 MG/HR Sodium Chloride 100 mls @ 999 mls/hr 08/12/21 08:52 Nacl 0.9% IV GLENDY PRN Hypotension Sodium Chloride 100 mls @ 999 mls/hr 08/14/21 09:56 Nacl 0.9% IV GLENDY PRN Hypotension Isosorbide Dinitrate 20 mg 08/11/21 14:00 08/14/21 06:40 Isosorbide Dinitrate 20 Mg Tab PO 20 mg Q8HR [facility] Administration Losartan Potassium 100 mg 08/12/21 10:00 08/14/21 09:52 Losartan 25 Mg Tab PO 100 mg DAILY [facility] Administration Metoclopramide HCl 5 mg 08/05/21 21:03 Metoclopramide 10 Mg/2 Ml Inj IV Q6H PRN Nausea And Vomiting Metoprolol Tartrate 100 mg 08/12/21 12:00 08/14/21 09:52 Metoprolol Tartrate 50 Mg Tab PO 100 mg BID [facility] Administration Multi-Ingred Cream/Lotion/Oil/Oint 1 applic 08/05/21 17:25 Mineral Oil/Petrolatum, White Ophth Oint 3.5 Gm OU Q4HR PRN Dry Eye(s) Nifedipine 60 mg 08/14/21 11:00 Nifedipine Xl 60 Mg Tab PO Q12HR [facility] Ondansetron HCl 4 mg 08/05/21 21:03 Ondansetron 4 Mg/2 Ml Inj IV Q8H PRN Nausea And Vomiting Oxycodone/Acetaminophen 1 tab 08/05/21 21:03 Oxycodone /Acetaminophen 5-325mg Tab PO Q6H PRN Pain, Moderate (4-6) Senna 8.8 mg 08/07/21 13:00 08/13/21 23:14 Sennosides Oral Liqd 8.8 Mg/5 Ml Oral Liqd FEEDTUBE 8.8 mg BID JODI Administration Simple Syrup 15 ml 08/07/21 09:47 Simple Syrup 15 Ml FEEDTUBE PRN PRN Hypoglycemia Simple Syrup 30 ml 08/07/21 09:47 Simple Syrup 15 Ml FEEDTUBE PRN PRN Hypoglycemia Sodium Bicarbonate 325 mg 08/07/21 09:47 Sodium Bicarbonate 325 Mg Tab FEEDTUBE PRN PRN For Clogged Feeding Tube Sodium Chloride 10 ml 08/05/21 22:00 08/14/21 09:54 Sodium Chloride 0.9% 10 Ml Flush Syringe IV 10 ml BID JODI Administration Sodium Chloride 10 ml 08/05/21 21:03 Sodium Chloride 0.9% 10 Ml Flush Syringe IV PRN PRN LINE FLUSH Nutrition/Malnutrition Assess - Dietary Evaluation Nutrition/Malnutrition Findings: Nutrition Notes Start: 08/07/21 09:12 Freq: Status: Active Protocol: Document 08/09/21 18:21 KALA (Rec: 08/09/21 18:25 KALA [id number]) Nutrition Notes Initial or Follow up Brief Note Current Diet TF-Nepro w/CARBSTEADY @ 32 ml/ hr (since L 08/07). Weight change and time frame No body weight change reported . Weight Status Overweight Subjective/Other Information RD consult for routine F/U on TF tolerance. TF continues without changes. Percent of energy/protein needs met: Prescribed Nepro w/CARBSTEADY @ 32 ml/hr will provide for energy/protein needs (1,403 Kcal/63 g) 100% Kcal; 82% AA, during LOS. #1 Nutrition Diagnosis Inadequate oral intake Diagnosis Progress(for reassessment Continues documentation) Nutrition Intervention Nutrition Support: Continue Nepro w/CARBSTEADY @ 32 ml/hr. Flush: 140 ml water Q 4 hr. Goal #1 Provide at least 75% of energy /protein needs through Enteral Feeding during LOS. Follow-Up By: 08/16/21 Additional Comments Continue monitoring TF tolerance, and BM.
[2021-08-14] MEDS ORDERED: NIFEdipine XL 60 MG TAB PO SCH (11:00)
[2021-08-14] MEDS: AMIODARONE 200 MG TAB PO SCH ×2 (11:27→21:39)
[2021-08-14] MEDS: hydrALAZINE 100 MG TAB PO SCH ×3 (11:27→21:41)
[2021-08-14] MEDS: SENNOSIDES ORAL LIQD 8.8 MG/5 ML ORAL LIQD FEEDTUBE SCH ×2 (11:30→21:46)
[2021-08-14] MEDS: cloNIDine 0.2 MG TAB PO SCH ×2 (13:50→21:41)
--- NOTE | 2021-08-14 14:20 | Progress Note ---
Assessment and Plan 60 y/o female with known VT in the past, systolic heart failure with BIV AICD admitted with recurrent VT and electrolyte abnormality 08/14/21: Given no ICU beds at [place], [facility] [place] [facility] with hopes that patient can get ablation and then be transferred back over for further vent weaning. 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 Agree with cards increasing therapy for HTN. Will attempt to wean Cardene 08/13/21: Will start Clonidine 0.1 TID given her persistent need for Cardene drip. Will extubate today and transfer to tele floor. Hoping this will help the patient get a bed faster at [place]. Rate control per cards. 08/12/21: Will discontinue cardene while on HD as goal is to pull 3 liters. Will speak with cards and ask them to call [place] to see if they have a time frame. Continue supportive measures. Remains on Amio Drip. 08/08/21: Continue supportive measures. Follow up any new cardiac recs. 08/07/21: Await transfer to [place], continue supportive measures Follow up cards recs most likely needs ablation at [place] Continue amio drip per cards CCt 31 minutes. Subjective Date of service: 08/14/21 Principal diagnosis: Recurrent VT Interval history: Patient had to be re-intubated about 2 hours post extubation. Was found hypoxic and minimally responsive. Not appropriate for bipap therapy. Intubated by anesthesia secondary to difficult airway in the past. This am, alert and awake on the vent. No ABG done yesterday and none this am. RT madan one that shows a pH of 7.49 and CO2 of 29 with PaO2 in the mid 60's on 30%. Remainder is negative. Objective Vital Signs - 12hr 08/14/21 08/14/21 08/14/21 03:00 03:11 03:20 Temperature Pulse Rate 70 70 70 Pulse Rate [ From Monitor] Respiratory 16 14 Rate Blood Pressure 187/81 176/71 O2 Sat by Pulse 99 100 99 Oximetry 08/14/21 08/14/21 08/14/21 04:00 04:03 05:00 Temperature 97.6 F 98.5 F Pulse Rate 70 70 Pulse Rate [ From Monitor] Respiratory 17 7 L Rate Blood Pressure 187/81 171/78 O2 Sat by Pulse 98 Oximetry 08/14/21 08/14/21 08/14/21 06:00 06:39 06:40 Temperature Pulse Rate 70 70 70 Pulse Rate [ From Monitor] Respiratory 6 L Rate Blood Pressure 157/80 159/71 159/71 O2 Sat by Pulse 99 Oximetry 08/14/21 08/14/21 08/14/21 07:00 07:39 07:41 Temperature 98.2 F Pulse Rate 70 70 Pulse Rate [ From Monitor] Respiratory 11 L Rate Blood Pressure 178/88 178/78 O2 Sat by Pulse 98 99 Oximetry 08/14/21 08/14/21 08/14/21 08:00 08:17 09:00 Temperature Pulse Rate 70 70 70 Pulse Rate [ 70 From Monitor] Respiratory 18 15 Rate Blood Pressure 143/77 185/92 131/70 O2 Sat by Pulse 99 98 Oximetry 08/14/21 08/14/21 08/14/21 09:52 10:00 11:00 Temperature Pulse Rate 70 70 70 Pulse Rate [ From Monitor] Respiratory 12 16 Rate Blood Pressure 185/79 185/79 178/72 O2 Sat by Pulse 99 98 Oximetry 08/14/21 08/14/21 08/14/21 12:00 12:08 13:00 Temperature 99.8 F H Pulse Rate 70 70 Pulse Rate [ 70 From Monitor] Respiratory 18 14 Rate Blood Pressure 152/70 175/105 O2 Sat by Pulse 98 98 Oximetry 08/14/21 13:50 Temperature Pulse Rate 70 Pulse Rate [ From Monitor] Respiratory Rate Blood Pressure 173/72 O2 Sat by Pulse Oximetry Constitutional: other (intubated and sedated) Eyes: non-icteric ENT: other (orally intubated) Neck: supple Effort: normal Ascultation: Bilateral: clear Percussion: Bilateral: not dull Cardiovascular: regular rate and rhythm (no mrg) Gastrointestinal: normoactive bowel sounds, soft, non-tender, non-distended Integumentary: normal Extremities: no cyanosis, no edema, pink and warm Neurologic: unable to assess Psychiatric: other (unable to assess) CBC and BMP: 08/14/21 Unknown 08/14/21 04:00 ABG, PT/INR, D-dimer: ABG ABG pH 7.402 (7.320-7.450) 08/10/21 04:55 POC ABG pCO2 37.9 mmHg (32.0-48.0) 08/10/21 04:55 ABG pCO2 41.2 mm Hg 08/09/21 04:30 POC ABG pO2 83.4 mmHg (83-108) 08/10/21 04:55 ABG pO2 91.5 mm Hg (80.0-90.0) H 08/09/21 04:30 POC ABG HCO3 23.1 08/10/21 04:55 ABG O2 Saturation 96.0 (0-100) 08/10/21 04:55 PT/INR, D-dimer PT 14.2 Sec. (12.2-14.9) 08/06/21 16:35 INR 0.99 (0.87-1.13) 08/06/21 16:35 Abnormal lab findings: Abnormal Labs 08/05/21 08/05/21 08/05/21 15:55 15:55 18:50 WBC 3.7 L RBC 2.98 L Hgb 7.5 L Hct 23.8 L MCH 25 L RDW 18.9 H Plt Count 134 L Lymph % (Auto) [place] % (Auto) Lymph # (Auto) Seg Neutrophils % Seg Neuts % (Manual) Lymphocytes % (Manual) Monocytes % (Manual) 18.0 H Eosinophils % (Manual) Basophils % (Manual) 2.0 H Seg Neutrophils # Seg Neutrophils # Man Lymphocytes # (Manual) 0.9 L Monocytes # (Manual) APTT ABG pH 7.523 H POC ABG pO2 ABG pO2 47.1 L ABG HCO3 34.6 H ABG O2 Saturation 85.4 L ABG Base Excess 10.8 H ABG Hemoglobin 7.3 L ABG Sodium ABG Potassium ABG Chloride ABG Glucose Oxyhemoglobin 83.6 L Carboxyhemoglobin Sodium Potassium 2.7 L* Chloride 93.8 L Carbon Dioxide 33 H BUN Creatinine 2.8 H Glucose 124 H POC Glucose Calcium 8.2 L Phosphorus ALT < 5 L Troponin T 0.126 H* Total Protein Albumin 3.5 L Triglycerides 202 H HDL Cholesterol 32 L TSH Arterial Blood Glucose Crossmatch 08/05/21 08/05/21 08/06/21 18:56 Unknown 04:20 WBC RBC Hgb Hct MCH RDW Plt Count Lymph % (Auto) [place] % (Auto) Lymph # (Auto) Seg Neutrophils % Seg Neuts % (Manual) Lymphocytes % (Manual) Monocytes % (Manual) Eosinophils % (Manual) Basophils % (Manual) Seg Neutrophils # Seg Neutrophils # Man Lymphocytes # (Manual) Monocytes # (Manual) APTT ABG pH 7.575 H 7.606 H* POC ABG pO2 ABG pO2 142.9 H 111.2 H ABG HCO3 33.2 H 33.6 H ABG O2 Saturation ABG Base Excess 10.4 H 11.2 H ABG Hemoglobin 6.6 L 6.8 L ABG Sodium ABG Potassium ABG Chloride ABG Glucose Oxyhemoglobin Carboxyhemoglobin Sodium Potassium Chloride Carbon Dioxide BUN Creatinine Glucose POC Glucose Calcium Phosphorus ALT Troponin T 0.183 H* D Total Protein Albumin Triglycerides HDL Cholesterol TSH Arterial Blood Glucose Crossmatch 08/06/21 08/06/21 08/06/21 04:29 04:29 04:29 WBC 2.5 L RBC 2.70 L Hgb 6.8 L Hct 21.3 L MCH 25 L RDW 18.1 H Plt Count 126 L Lymph % (Auto) 45.0 H [place] % (Auto) 13.6 H Lymph # (Auto) 1.1 L Seg Neutrophils % 37.3 L Seg Neuts % (Manual) Lymphocytes % (Manual) Monocytes % (Manual) Eosinophils % (Manual) Basophils % (Manual) Seg Neutrophils # 0.9 L Seg Neutrophils # Man Lymphocytes # (Manual) Monocytes # (Manual) APTT 38.8 H ABG pH POC ABG pO2 ABG pO2 ABG HCO3 ABG O2 Saturation ABG Base Excess ABG Hemoglobin ABG Sodium ABG Potassium ABG Chloride ABG Glucose Oxyhemoglobin Carboxyhemoglobin Sodium 136 L Potassium 3.0 L Chloride 92.6 L Carbon Dioxide 32 H BUN Creatinine 3.8 H Glucose POC Glucose Calcium Phosphorus ALT Troponin T Total Protein 5.8 L Albumin 3.1 L Triglycerides HDL Cholesterol TSH Arterial Blood Glucose Crossmatch 08/06/21 08/06/21 08/06/21 05:30 07:26 07:26 WBC RBC Hgb 7.0 L Hct 22.5 L MCH RDW Plt Count 127 L Lymph % (Auto) [place] % (Auto) Lymph # (Auto) Seg Neutrophils % Seg Neuts % (Manual) Lymphocytes % (Manual) Monocytes % (Manual) Eosinophils % (Manual) Basophils % (Manual) Seg Neutrophils # Seg Neutrophils # Man Lymphocytes # (Manual) Monocytes # (Manual) APTT 37.1 H ABG pH POC ABG pO2 ABG pO2 ABG HCO3 ABG O2 Saturation ABG Base Excess ABG Hemoglobin ABG Sodium ABG Potassium ABG Chloride ABG Glucose Oxyhemoglobin Carboxyhemoglobin Sodium Potassium Chloride Carbon Dioxide BUN Creatinine Glucose POC Glucose Calcium Phosphorus ALT Troponin T Total Protein Albumin Triglycerides HDL Cholesterol TSH Arterial Blood Glucose Crossmatch See Detail 08/06/21 08/06/21 08/06/21 08:06 14:50 16:03 WBC RBC Hgb Hct MCH RDW Plt Count Lymph % (Auto) [place] % (Auto) Lymph # (Auto) Seg Neutrophils % Seg Neuts % (Manual) Lymphocytes % (Manual) Monocytes % (Manual) Eosinophils % (Manual) Basophils % (Manual) Seg Neutrophils # Seg Neutrophils # Man Lymphocytes # (Manual) Monocytes # (Manual) APTT ABG pH POC ABG pO2 ABG pO2 ABG HCO3 ABG O2 Saturation ABG Base Excess ABG Hemoglobin ABG Sodium ABG Potassium ABG Chloride ABG Glucose Oxyhemoglobin Carboxyhemoglobin Sodium Potassium 3.1 L Chloride 92.4 L Carbon Dioxide 33 H BUN Creatinine 3.9 H Glucose POC Glucose 59 L 121 H Calcium Phosphorus ALT Troponin T Total Protein Albumin Triglycerides HDL Cholesterol TSH Arterial Blood Glucose Crossmatch 08/06/21 08/06/21 08/06/21 16:35 16:35 17:31 WBC 4.2 L RBC 3.27 L Hgb 8.5 L Hct 26.8 L MCH 26 L RDW 18.7 H Plt Count 124 L Lymph % (Auto) [place] % (Auto) 15.5 H Lymph # (Auto) 0.8 L Seg Neutrophils % Seg Neuts % (Manual) Lymphocytes % (Manual) Monocytes % (Manual) Eosinophils % (Manual) Basophils % (Manual) Seg Neutrophils # Seg Neutrophils # Man Lymphocytes # (Manual) Monocytes # (Manual) APTT ABG pH POC ABG pO2 ABG pO2 ABG HCO3 ABG O2 Saturation ABG Base Excess ABG Hemoglobin ABG Sodium ABG Potassium ABG Chloride ABG Glucose Oxyhemoglobin Carboxyhemoglobin Sodium 133 L Potassium Chloride 93.2 L Carbon Dioxide BUN 21 H Creatinine 4.6 H Glucose POC Glucose 62 L Calcium 8.3 L Phosphorus ALT Troponin T Total Protein 6.2 L Albumin 3.2 L Triglycerides HDL Cholesterol TSH Arterial Blood Glucose Crossmatch 08/06/21 08/06/21 08/07/21 18:14 18:22 04:00 WBC 1.0 L* RBC 2.67 L Hgb 7.0 L Hct 21.8 L MCH 26 L RDW 18.7 H Plt Count 82 L Lymph % (Auto) [place] % (Auto) Lymph # (Auto) Seg Neutrophils % Seg Neuts % (Manual) 16.0 L Lymphocytes % (Manual) 60.0 H Monocytes % (Manual) Eosinophils % (Manual) 11.0 H Basophils % (Manual) 4.0 H Seg Neutrophils # Seg Neutrophils # Man 0.2 L Lymphocytes # (Manual) 0.6 L Monocytes # (Manual) APTT ABG pH 7.565 H POC ABG pO2 ABG pO2 113.3 H ABG HCO3 29.4 H ABG O2 Saturation ABG Base Excess 6.9 H ABG Hemoglobin 8.3 L ABG Sodium ABG Potassium ABG Chloride ABG Glucose Oxyhemoglobin Carboxyhemoglobin Sodium Potassium Chloride Carbon Dioxide BUN Creatinine Glucose POC Glucose 148 H Calcium Phosphorus ALT Troponin T Total Protein Albumin Triglycerides HDL Cholesterol TSH Arterial Blood Glucose Crossmatch 08/07/21 08/07/21 08/07/21 04:00 04:25 08:30 WBC RBC Hgb Hct MCH RDW Plt Count Lymph % (Auto) [place] % (Auto) Lymph # (Auto) Seg Neutrophils % Seg Neuts % (Manual) Lymphocytes % (Manual) Monocytes % (Manual) Eosinophils % (Manual) Basophils % (Manual) Seg Neutrophils # Seg Neutrophils # Man Lymphocytes # (Manual) Monocytes # (Manual) APTT ABG pH 7.609 H* 7.479 H POC ABG pO2 ABG pO2 121.4 H 130.2 H ABG HCO3 28.5 H 30.3 H ABG O2 Saturation ABG Base Excess 7.2 H 6.2 H ABG Hemoglobin 10.7 L 8.1 L ABG Sodium ABG Potassium ABG Chloride ABG Glucose Oxyhemoglobin Carboxyhemoglobin Sodium 133 L Potassium 3.2 L D Chloride 93.9 L Carbon Dioxide BUN 23 H Creatinine 4.3 H Glucose POC Glucose Calcium 8.1 L Phosphorus ALT Troponin T Total Protein Albumin Triglycerides HDL Cholesterol TSH Arterial Blood Glucose Crossmatch 08/07/21 08/07/21 08/07/21 13:18 13:30 15:51 WBC RBC Hgb Hct MCH RDW Plt Count Lymph % (Auto) [place] % (Auto) Lymph # (Auto) Seg Neutrophils % Seg Neuts % (Manual) Lymphocytes % (Manual) Monocytes % (Manual) Eosinophils % (Manual) Basophils % (Manual) Seg Neutrophils # Seg Neutrophils # Man Lymphocytes # (Manual) Monocytes # (Manual) APTT ABG pH POC ABG pO2 ABG pO2 ABG HCO3 ABG O2 Saturation ABG Base Excess ABG Hemoglobin ABG Sodium ABG Potassium ABG Chloride ABG Glucose Oxyhemoglobin Carboxyhemoglobin Sodium Potassium Chloride Carbon Dioxide BUN Creatinine Glucose POC Glucose 67 L 58 L Calcium Phosphorus ALT Troponin T Total Protein Albumin Triglycerides HDL Cholesterol TSH 7.070 H Arterial Blood Glucose Crossmatch 08/08/21 08/08/21 08/08/21 04:19 04:26 04:26 WBC RBC Hgb 6.8 L Hct 21.6 L MCH RDW Plt Count 91 L Lymph % (Auto) [place] % (Auto) Lymph # (Auto) Seg Neutrophils % Seg Neuts % (Manual) Lymphocytes % (Manual) Monocytes % (Manual) Eosinophils % (Manual) Basophils % (Manual) Seg Neutrophils # Seg Neutrophils # Man Lymphocytes # (Manual) Monocytes # (Manual) APTT ABG pH 7.545 H POC ABG pO2 ABG pO2 136.1 H ABG HCO3 27.3 H ABG O2 Saturation ABG Base Excess 4.5 H ABG Hemoglobin 6.9 L ABG Sodium ABG Potassium ABG Chloride ABG Glucose Oxyhemoglobin Carboxyhemoglobin Sodium 132 L Potassium Chloride 93.5 L Carbon Dioxide BUN Creatinine 3.7 H Glucose POC Glucose Calcium Phosphorus ALT Troponin T Total Protein Albumin Triglycerides HDL Cholesterol TSH Arterial Blood Glucose Crossmatch 08/08/21 08/08/21 08/08/21 09:45 12:23 18:51 WBC RBC Hgb Hct MCH RDW Plt Count Lymph % (Auto) [place] % (Auto) Lymph # (Auto) Seg Neutrophils % Seg Neuts % (Manual) Lymphocytes % (Manual) Monocytes % (Manual) Eosinophils % (Manual) Basophils % (Manual) Seg Neutrophils # Seg Neutrophils # Man Lymphocytes # (Manual) Monocytes # (Manual) APTT ABG pH 7.471 H POC ABG pO2 71.1 L ABG pO2 ABG HCO3 ABG O2 Saturation ABG Base Excess ABG Hemoglobin ABG Sodium 128.9 L ABG Potassium ABG Chloride 95.0 L ABG Glucose 64 L Oxyhemoglobin Carboxyhemoglobin Sodium Potassium Chloride Carbon Dioxide BUN Creatinine Glucose POC Glucose 58 L 68 L Calcium Phosphorus ALT Troponin T Total Protein Albumin Triglycerides HDL Cholesterol TSH Arterial Blood Glucose 64 L Crossmatch 08/09/21 08/09/21 08/09/21 04:30 04:33 04:33 WBC 2.4 L RBC 3.16 L Hgb 8.3 L Hct 26.5 L MCH 26 L RDW 18.3 H Plt Count 113 L Lymph % (Auto) [place] % (Auto) Lymph # (Auto) Seg Neutrophils % Seg Neuts % (Manual) Lymphocytes % (Manual) Monocytes % (Manual) Eosinophils % (Manual) Basophils % (Manual) Seg Neutrophils # Seg Neutrophils # Man Lymphocytes # (Manual) Monocytes # (Manual) APTT ABG pH POC ABG pO2 ABG pO2 91.5 H ABG HCO3 26.6 H ABG O2 Saturation ABG Base Excess ABG Hemoglobin 9.0 L ABG Sodium ABG Potassium ABG Chloride ABG Glucose Oxyhemoglobin Carboxyhemoglobin Sodium 129 L Potassium Chloride 91.9 L Carbon Dioxide BUN 22 H Creatinine 4.7 H Glucose POC Glucose Calcium Phosphorus ALT Troponin T Total Protein Albumin Triglycerides HDL Cholesterol TSH Arterial Blood Glucose Crossmatch 08/10/21 08/10/21 08/10/21 04:00 04:00 04:55 WBC 3.3 L RBC 3.32 L Hgb 8.9 L Hct 27.6 L MCH 27 L RDW 18.3 H Plt Count Lymph % (Auto) [place] % (Auto) Lymph # (Auto) Seg Neutrophils % Seg Neuts % (Manual) Lymphocytes % (Manual) Monocytes % (Manual) 9.0 H Eosinophils % (Manual) Basophils % (Manual) Seg Neutrophils # Seg Neutrophils # Man Lymphocytes # (Manual) 0.6 L Monocytes # (Manual) APTT ABG pH POC ABG pO2 ABG pO2 ABG HCO3 ABG O2 Saturation ABG Base Excess ABG Hemoglobin 9.6 L ABG Sodium 120.3 L ABG Potassium 5.2 H ABG Chloride 88.0 L ABG Glucose Oxyhemoglobin Carboxyhemoglobin 0.4 L Sodium 123 L Potassium 5.5 H D Chloride 84.8 L Carbon Dioxide BUN 30 H Creatinine 5.5 H Glucose 139 H POC Glucose Calcium Phosphorus 5.90 H ALT Troponin T Total Protein Albumin Triglycerides HDL Cholesterol TSH Arterial Blood Glucose Crossmatch 08/10/21 08/11/21 08/11/21 12:17 04:00 05:53 WBC RBC 3.50 L Hgb 9.2 L Hct 29.0 L MCH 26 L RDW 18.4 H Plt Count Lymph % (Auto) [place] % (Auto) Lymph # (Auto) Seg Neutrophils % Seg Neuts % (Manual) 76.0 H Lymphocytes % (Manual) 8.0 L Monocytes % (Manual) 13.0 H Eosinophils % (Manual) Basophils % (Manual) Seg Neutrophils # Seg Neutrophils # Man Lymphocytes # (Manual) 0.6 L Monocytes # (Manual) 0.9 H APTT ABG pH POC ABG pO2 ABG pO2 ABG HCO3 ABG O2 Saturation ABG Base Excess ABG Hemoglobin ABG Sodium ABG Potassium ABG Chloride ABG Glucose Oxyhemoglobin Carboxyhemoglobin Sodium 128 L Potassium Chloride 90.3 L Carbon Dioxide BUN 24 H Creatinine 4.3 H Glucose 135 H POC Glucose 142 H Calcium Phosphorus ALT Troponin T Total Protein Albumin Triglycerides HDL Cholesterol TSH Arterial Blood Glucose Crossmatch 08/11/21 08/12/21 08/12/21 16:39 05:23 05:23 WBC RBC 3.20 L Hgb 8.8 L Hct 26.7 L MCH RDW 18.6 H Plt Count Lymph % (Auto) [place] % (Auto) Lymph # (Auto) Seg Neutrophils % Seg Neuts % (Manual) Lymphocytes % (Manual) Monocytes % (Manual) Eosinophils % (Manual) Basophils % (Manual) Seg Neutrophils # Seg Neutrophils # Man Lymphocytes # (Manual) Monocytes # (Manual) APTT ABG pH POC ABG pO2 ABG pO2 ABG HCO3 ABG O2 Saturation ABG Base Excess ABG Hemoglobin ABG Sodium ABG Potassium ABG Chloride ABG Glucose Oxyhemoglobin Carboxyhemoglobin Sodium 125 L Potassium Chloride 86.6 L Carbon Dioxide 21 L BUN 34 H Creatinine 5.0 H Glucose 111 H POC Glucose 112 H Calcium Phosphorus ALT Troponin T Total Protein Albumin Triglycerides HDL Cholesterol TSH Arterial Blood Glucose Crossmatch 08/12/21 08/12/21 08/13/21 12:18 17:56 06:01 WBC RBC Hgb Hct MCH RDW Plt Count Lymph % (Auto) [place] % (Auto) Lymph # (Auto) Seg Neutrophils % Seg Neuts % (Manual) Lymphocytes % (Manual) Monocytes % (Manual) Eosinophils % (Manual) Basophils % (Manual) Seg Neutrophils # Seg Neutrophils # Man Lymphocytes # (Manual) Monocytes # (Manual) APTT ABG pH POC ABG pO2 ABG pO2 ABG HCO3 ABG O2 Saturation ABG Base Excess ABG Hemoglobin ABG Sodium ABG Potassium ABG Chloride ABG Glucose Oxyhemoglobin Carboxyhemoglobin Sodium Potassium Chloride Carbon Dioxide BUN Creatinine Glucose POC Glucose 140 H 119 H 110 H Calcium Phosphorus ALT Troponin T Total Protein Albumin Triglycerides HDL Cholesterol TSH Arterial Blood Glucose Crossmatch 08/13/21 08/13/21 08/14/21 Unknown Unknown 04:00 WBC RBC Hgb Hct MCH RDW Plt Count Lymph % (Auto) [place] % (Auto) Lymph # (Auto) Seg Neutrophils % Seg Neuts % (Manual) Lymphocytes % (Manual) Monocytes % (Manual) Eosinophils % (Manual) Basophils % (Manual) Seg Neutrophils # Seg Neutrophils # Man Lymphocytes # (Manual) Monocytes # (Manual) APTT ABG pH POC ABG pO2 ABG pO2 ABG HCO3 ABG O2 Saturation ABG Base Excess ABG Hemoglobin ABG Sodium ABG Potassium ABG Chloride ABG Glucose Oxyhemoglobin Carboxyhemoglobin Sodium 129 L 128 L Potassium Chloride 90.1 L 89.7 L Carbon Dioxide BUN 24 H 36 H Creatinine 3.8 H 4.2 H Glucose POC Glucose Calcium Phosphorus ALT Troponin T Total Protein Albumin Triglycerides 399 H HDL Cholesterol TSH Arterial Blood Glucose Crossmatch 08/14/21 08/14/21 08/14/21 05:44 11:57 Unknown WBC RBC 3.14 L Hgb 8.5 L Hct 25.5 L MCH 27 L RDW 19.1 H Plt Count Lymph % (Auto) [place] % (Auto) Lymph # (Auto) Seg Neutrophils % Seg Neuts % (Manual) Lymphocytes % (Manual) Monocytes % (Manual) Eosinophils % (Manual) Basophils % (Manual) Seg Neutrophils # Seg Neutrophils # Man Lymphocytes # (Manual) Monocytes # (Manual) APTT ABG pH POC ABG pO2 ABG pO2 ABG HCO3 ABG O2 Saturation ABG Base Excess ABG Hemoglobin ABG Sodium ABG Potassium ABG Chloride ABG Glucose Oxyhemoglobin Carboxyhemoglobin Sodium Potassium Chloride Carbon Dioxide BUN Creatinine Glucose POC Glucose 111 H 111 H Calcium Phosphorus ALT Troponin T Total Protein Albumin Triglycerides HDL Cholesterol TSH Arterial Blood Glucose Crossmatch Allied health notes reviewed: nursing
--- NOTE | 2021-08-14 14:27 | Progress Note ---
Assessment and Plan Patient is a 60-year-old female with recurrent V. tach, end-stage renal disease, s/p ICD, and recurrent severe hypokalemia VT Storm Recurrent AICD Discharges CAD s/p PCI (07/17/2021) Accelerated HTN ESRD on HD Hyponatremia Severe Hypokalemia (POA, resolved) Anemia Thrombocytopenia Type 2 VT HTN H/o CVA Plan: Currently waiting bed availability at [facility] for transfer for VT ablation Continue aspirin, Plavix, Lipitor Continue losartan 100 mg p.o. daily and metoprolol 100 mg p.o. twice daily Wean nicardipine as tolerated Increase to hydralazine 100 mg p.o.Q8hrs, increase clonidine 0.2 mg p.o. every 8 hours Stop amio drip. Convert to amio 400 mg p.o. twice daily Patient seen in conjunction with Dr. aPtel who agrees with this plan of care - Patient Problems (1) AICD discharge Current Visit: Yes Status: Acute (2) Anemia in end-stage renal disease Current Visit: Yes Status: Acute (3) Elevated troponin Current Visit: Yes Status: Acute (4) Hypokalemia Current Visit: Yes Status: Acute (5) Sustained ventricular tachycardia Current Visit: Yes Status: Acute (6) Diabetes Current Visit: No Status: Acute (7) Respiratory failure Current Visit: No Status: Acute Qualifiers: Chronicity: acute Respiratory failure complication: hypoxia Qualified Code(s): J96.01 - Acute respiratory failure with hypoxia (8) Hypertension Current Visit: No Status: Chronic Qualifiers: Hypertension type: primary hypertension Qualified Code(s): I10 - Essential (primary) hypertension Subjective Date of service: 08/14/21 Principal diagnosis: Recurrent VT Interval history: Patient remains intubated and sedated. Patient A paced 70 no events on monitor Objective Vital Signs Temp Pulse Pulse Resp BP Pulse Ox 08/14/21 14:00 70 14 173/72 99 08/14/21 13:50 70 173/72 08/14/21 13:45 70 18 173/72 99 08/14/21 13:30 70 17 171/69 98 08/14/21 13:15 70 16 171/69 100 08/14/21 13:00 70 14 175/105 98 08/14/21 12:08 99.8 F H 08/14/21 12:00 70 70 18 152/70 98 01/05/22 11:00 70 16 178/72 98 08/14/21 10:00 70 12 185/79 99 08/14/21 09:52 70 185/79 08/14/21 09:00 70 15 131/70 98 08/14/21 08:17 70 185/92 08/14/21 08:00 70 70 18 143/77 99 08/14/21 07:41 98.2 F 08/14/21 07:39 70 178/78 99 08/14/21 07:00 70 11 L 178/88 98 08/14/21 06:40 70 159/71 08/14/21 06:39 70 159/71 08/14/21 06:00 70 6 L 157/80 99 08/14/21 05:00 70 7 L 171/78 98 08/14/21 04:03 98.5 F 08/14/21 04:00 97.6 F 70 17 187/81 08/14/21 03:20 70 14 99 08/14/21 03:11 70 176/71 100 08/14/21 03:00 70 16 187/81 99 08/14/21 02:00 70 18 184/79 98 08/14/21 01:00 70 17 165/71 98 08/14/21 00:00 98.5 F 70 11 L 156/70 99 08/13/21 23:25 14 99 08/13/21 23:16 70 164/72 08/13/21 23:15 70 164/72 08/13/21 23:13 70 166/72 08/13/21 23:00 70 13 173/72 100 08/13/21 22:48 70 15 100 08/13/21 22:01 70 18 146/77 99 08/13/21 21:00 70 10 L 167/77 99 08/13/21 20:10 70 171/81 99 08/13/21 20:00 98.5 F 70 70 12 176/76 98 08/13/21 19:00 70 17 183/81 94 08/13/21 18:00 70 12 152/79 93 08/13/21 17:00 70 10 L 149/74 99 08/13/21 16:00 70 70 14 163/85 99 08/13/21 15:23 70 166/77 93 08/13/21 15:00 70 18 166/77 92 08/13/21 14:27 70 168/80 - Physical Examination General: Other (intubated) HEENT: Positive: Normocephaly, Mucus Membranes Dry Neck: Positive: neck supple, trachea midline. Negative: JVD/HJR Cardiac: Positive: Reg Rate and Rhythm Lungs: Positive: Ventilated Respirations Neuro: Positive: Other (intubated) Abdomen: Positive: Soft Skin: Negative: Rash Musculoskeletal: No Fluid Collection Extremities: Present: lower extr. pulses. Absent: edema - Labs and Meds CBC 08/14/21 Range/Units Unknown WBC 7.6 (4.5-11.0) K/mm3 RBC 3.14 L (3.65-5.03) M/mm3 Hgb 8.5 L (10.1-14.3) gm/dl Hct 25.5 L (30.3-42.9) % Plt Count 274 (140-440) K/mm3 Comprehensive Metabolic Panel 08/14/21 Range/Units 04:00 Sodium 128 L (137-145) mmol/L Potassium 3.9 (3.6-5.0) mmol/L Chloride 89.7 L (98-107) mmol/L Carbon Dioxide 23 (22-30) mmol/L BUN 36 H (7-17) mg/dL Creatinine 4.2 H (0.6-1.2) mg/dL Glucose 93 (65-100) mg/dL Calcium 9.4 (8.4-10.2) mg/dL - Imaging and Cardiology EKG: report reviewed, image reviewed Echo: report reviewed Cardiac cath: report reviewed - Telemetry EKG Rhythm: Paced - EKG Sinus rhythms and dysrhythmias: sinus rhythm Repolarization changes or abnormalities: Q-T interval prolongation Myocardial infarction: anterior VT (old age or i Pacemaker: atrial pacing w/capture - Allied health notes Allied health notes reviewed: nursing
[2021-08-15] MEDS: niCARdipine 50 MG in SODIUM CHLORIDE 0.9% 250ML 230 ML IV SCH ×3 (00:10→22:29)
[2021-08-15 05:36] LABS: Hematocrit 22.8 % (30.3-42.9); Hemoglobin 7.8 gm/dl (10.1-14.3); Mean Corpuscular HGB Conc 34 % (30-34); Mean Corpuscular Volume 82 fl (79-97); Platelet Count 276 K/mm3 (140-440); Red Blood Count 2.79 M/mm3 (3.65-5.03); Red Cell Distribution Width 18.8 % (13.2-15.2)
[2021-08-15] MEDS: cloNIDine 0.2 MG TAB PO SCH (05:40)
[2021-08-15] MEDS: ISOSORBIDE DINITRATE 20 MG TAB PO SCH ×3 (05:40→22:26)
[2021-08-15] MEDS: hydrALAZINE 100 MG TAB PO SCH ×3 (05:40→22:22)
[2021-08-15 05:46] LABS: Calcium 9.2 mg/dL (8.4-10.2)
[2021-08-15] MEDS: hydrALAZINE 20 MG/1 ML INJ IV PRN (07:53)
--- NOTE | 2021-08-15 09:09 | Progress Note ---
Assessment and Plan 60 y/o female with known VT in the past, systolic heart failure with BIV AICD admitted with recurrent VT and electrolyte abnormality 08/15/21: Will discuss with CM if any further news on LTACH acceptance. Attempt PSV trials today. BP still elevated and still on Cardene despite increase in med therapy. Will discuss with cards, and renal, and pharm on rounds. 08/14/21: Given no ICU beds at [place], will attempt to transfer to [facility] with hopes that patient can get ablation and then be transferred back over for further vent weaning. Not sure exactly why she failed yesterday but transfer to [facility] makes most sense in the event she will be a long term care phlebotomist wean. Agree with [facility] increasing therapy for HTN. Will attempt to wean Cardene 08/13/21: Will start Clonidine 0.1 TID given her persistent need for Cardene drip. Will extubate today and transfer to tele floor. Hoping this will help the patient get a bed faster at [place]. Rate control per cards. 08/12/21: Will discontinue cardene while on HD as goal is to pull 3 liters. Will speak with [facility] and ask them to call [place] to see if they have a time frame. Continue supportive measures. Remains on Amio Drip. 08/08/21: Continue supportive measures. Follow up any new cardiac recs. 08/07/21: Await transfer to [place], continue supportive measures Follow up cards recs most likely needs ablation at [place] Continue amio drip per cards CCt 31 minutes. Subjective Date of service: 08/15/21 Principal diagnosis: Recurrent VT Interval history: No acute events. Awake and alert on the vent. Minimal support. No epidsodes of VT. Now on oral amio Objective Vital Signs - 12hr 08/14/21 08/14/21 08/14/21 21:30 21:39 21:41 Temperature Pulse Rate 70 70 70 Pulse Rate [ From Monitor] Respiratory 15 Rate Blood Pressure 170/64 194/76 194/76 O2 Sat by Pulse 98 Oximetry 08/14/21 08/14/21 08/14/21 22:00 22:30 23:00 Temperature Pulse Rate 70 70 70 Pulse Rate [ From Monitor] Respiratory 13 13 14 Rate Blood Pressure 194/76 164/44 165/64 O2 Sat by Pulse 99 99 99 Oximetry 0108/15/21 08/15/21 23:30 00:00 00:06 Temperature 100.5 F H Pulse Rate 70 70 70 Pulse Rate [ 70 From Monitor] Respiratory 13 15 15 Rate Blood Pressure 149/61 145/52 145/52 O2 Sat by Pulse 99 98 98 Oximetry 08/15/21 08/15/21 08/15/21 00:23 00:30 01:00 Temperature Pulse Rate 70 70 70 Pulse Rate [ From Monitor] Respiratory 18 11 L Rate Blood Pressure 145/52 147/51 O2 Sat by Pulse 97 98 100 Oximetry 08/15/21 08/15/21 08/15/21 01:30 02:00 02:30 Temperature Pulse Rate 70 70 70 Pulse Rate [ From Monitor] Respiratory 16 12 11 L Rate Blood Pressure 112/93 151/98 156/79 O2 Sat by Pulse 99 100 100 Oximetry 08/15/21 08/15/21 08/15/21 03:00 03:30 03:56 Temperature Pulse Rate 70 70 70 Pulse Rate [ From Monitor] Respiratory 10 L 12 Rate Blood Pressure 140/107 165/62 O2 Sat by Pulse 99 97 100 Oximetry 08/15/21 08/15/21 08/15/21 04:00 04:30 05:00 Temperature 98.8 F Pulse Rate 70 70 70 Pulse Rate [ 70 From Monitor] Respiratory 13 18 13 Rate Blood Pressure 165/62 169/64 152/70 O2 Sat by Pulse 99 99 100 Oximetry 08/15/21 08/15/21 08/15/21 05:30 05:40 06:00 Temperature Pulse Rate 70 70 70 Pulse Rate [ From Monitor] Respiratory 13 12 Rate Blood Pressure 164/121 164/75 164/75 O2 Sat by Pulse 100 100 Oximetry 08/15/21 08/15/21 08/15/21 06:30 07:00 07:11 Temperature 99.1 F Pulse Rate 70 70 Pulse Rate [ From Monitor] Respiratory 14 12 Rate Blood Pressure 152/55 152/55 O2 Sat by Pulse 100 100 Oximetry 08/15/21 08/15/21 08/15/21 07:30 07:53 08:00 Temperature Pulse Rate 70 70 70 Pulse Rate [ 70 From Monitor] Respiratory 12 13 Rate Blood Pressure 195/77 190/74 190/74 O2 Sat by Pulse 98 100 Oximetry Constitutional: other (intubated and sedated) Eyes: non-icteric ENT: other (orally intubated) Neck: supple Effort: normal Ascultation: Bilateral: clear Percussion: Bilateral: not dull Cardiovascular: regular rate and rhythm (no mrg) Gastrointestinal: normoactive bowel sounds, soft, non-tender, non-distended Integumentary: normal Extremities: no cyanosis, no edema, pink and warm Neurologic: unable to assess Psychiatric: other (unable to assess) CBC and BMP: 08/15/21 04:34 08/15/21 04:34 ABG, PT/INR, D-dimer: ABG ABG pH 7.496 (7.320-7.450) H 08/15/21 05:22 POC ABG pCO2 29.8 mmHg (32.0-48.0) L 08/15/21 05:22 ABG pCO2 41.2 mm Hg 08/09/21 04:30 POC ABG pO2 98.4 mmHg (83-108) 08/15/21 05:22 ABG pO2 91.5 mm Hg (80.0-90.0) H 08/09/21 04:30 POC ABG HCO3 22.5 08/15/21 05:22 ABG O2 Saturation 98.1 (0-100) 08/15/21 05:22 PT/INR, D-dimer PT 14.2 Sec. (12.2-14.9) 08/06/21 16:35 INR 0.99 (0.87-1.13) 08/06/21 16:35 Abnormal lab findings: Abnormal Labs 08/05/21 08/05/21 08/05/21 15:55 15:55 18:50 WBC 3.7 L RBC 2.98 L Hgb 7.5 L Hct 23.8 L MCH 25 L RDW 18.9 H Plt Count 134 L Lymph % (Auto) [place] % (Auto) Lymph # (Auto) Seg Neutrophils % Seg Neuts % (Manual) Lymphocytes % (Manual) Monocytes % (Manual) 18.0 H Eosinophils % (Manual) Basophils % (Manual) 2.0 H Seg Neutrophils # Seg Neutrophils # Man Lymphocytes # (Manual) 0.9 L Monocytes # (Manual) APTT ABG pH 7.523 H POC ABG pCO2 POC ABG pO2 ABG pO2 47.1 L ABG HCO3 34.6 H ABG O2 Saturation 85.4 L ABG Base Excess 10.8 H ABG Hemoglobin 7.3 L ABG Oxyhemoglobin ABG Sodium ABG Potassium ABG Chloride ABG Glucose Oxyhemoglobin 83.6 L Carboxyhemoglobin Sodium Potassium 2.7 L* Chloride 93.8 L Carbon Dioxide 33 H BUN Creatinine 2.8 H Glucose 124 H POC Glucose Calcium 8.2 L Phosphorus ALT < 5 L Troponin T 0.126 H* Total Protein Albumin 3.5 L Triglycerides 202 H HDL Cholesterol 32 L TSH Arterial Blood Glucose Crossmatch 08/05/21 08/05/21 08/06/21 18:56 Unknown 04:20 WBC RBC Hgb Hct MCH RDW Plt Count Lymph % (Auto) [place] % (Auto) Lymph # (Auto) Seg Neutrophils % Seg Neuts % (Manual) Lymphocytes % (Manual) Monocytes % (Manual) Eosinophils % (Manual) Basophils % (Manual) Seg Neutrophils # Seg Neutrophils # Man Lymphocytes # (Manual) Monocytes # (Manual) APTT ABG pH 7.575 H 7.606 H* POC ABG pCO2 POC ABG pO2 ABG pO2 142.9 H 111.2 H ABG HCO3 33.2 H 33.6 H ABG O2 Saturation ABG Base Excess 10.4 H 11.2 H ABG Hemoglobin 6.6 L 6.8 L ABG Oxyhemoglobin ABG Sodium ABG Potassium ABG Chloride ABG Glucose Oxyhemoglobin Carboxyhemoglobin Sodium Potassium Chloride Carbon Dioxide BUN Creatinine Glucose POC Glucose Calcium Phosphorus ALT Troponin T 0.183 H* D Total Protein Albumin Triglycerides HDL Cholesterol TSH Arterial Blood Glucose Crossmatch 08/06/21 08/06/21 08/06/21 04:29 04:29 04:29 WBC 2.5 L RBC 2.70 L Hgb 6.8 L Hct 21.3 L MCH 25 L RDW 18.1 H Plt Count 126 L Lymph % (Auto) 45.0 H [place] % (Auto) 13.6 H Lymph # (Auto) 1.1 L Seg Neutrophils % 37.3 L Seg Neuts % (Manual) Lymphocytes % (Manual) Monocytes % (Manual) Eosinophils % (Manual) Basophils % (Manual) Seg Neutrophils # 0.9 L Seg Neutrophils # Man Lymphocytes # (Manual) Monocytes # (Manual) APTT 38.8 H ABG pH POC ABG pCO2 POC ABG pO2 ABG pO2 ABG HCO3 ABG O2 Saturation ABG Base Excess ABG Hemoglobin ABG Oxyhemoglobin ABG Sodium ABG Potassium ABG Chloride ABG Glucose Oxyhemoglobin Carboxyhemoglobin Sodium 136 L Potassium 3.0 L Chloride 92.6 L Carbon Dioxide 32 H BUN Creatinine 3.8 H Glucose POC Glucose Calcium Phosphorus ALT Troponin T Total Protein 5.8 L Albumin 3.1 L Triglycerides HDL Cholesterol TSH Arterial Blood Glucose Crossmatch 08/06/21 08/06/21 08/06/21 05:30 07:26 07:26 WBC RBC Hgb 7.0 L Hct 22.5 L MCH RDW Plt Count 127 L Lymph % (Auto) [place] % (Auto) Lymph # (Auto) Seg Neutrophils % Seg Neuts % (Manual) Lymphocytes % (Manual) Monocytes % (Manual) Eosinophils % (Manual) Basophils % (Manual) Seg Neutrophils # Seg Neutrophils # Man Lymphocytes # (Manual) Monocytes # (Manual) APTT 37.1 H ABG pH POC ABG pCO2 POC ABG pO2 ABG pO2 ABG HCO3 ABG O2 Saturation ABG Base Excess ABG Hemoglobin ABG Oxyhemoglobin ABG Sodium ABG Potassium ABG Chloride ABG Glucose Oxyhemoglobin Carboxyhemoglobin Sodium Potassium Chloride Carbon Dioxide BUN Creatinine Glucose POC Glucose Calcium Phosphorus ALT Troponin T Total Protein Albumin Triglycerides HDL Cholesterol TSH Arterial Blood Glucose Crossmatch See Detail 08/06/21 08/06/21 08/06/21 08:06 14:50 16:03 WBC RBC Hgb Hct MCH RDW Plt Count Lymph % (Auto) [place] % (Auto) Lymph # (Auto) Seg Neutrophils % Seg Neuts % (Manual) Lymphocytes % (Manual) Monocytes % (Manual) Eosinophils % (Manual) Basophils % (Manual) Seg Neutrophils # Seg Neutrophils # Man Lymphocytes # (Manual) Monocytes # (Manual) APTT ABG pH POC ABG pCO2 POC ABG pO2 ABG pO2 ABG HCO3 ABG O2 Saturation ABG Base Excess ABG Hemoglobin ABG Oxyhemoglobin ABG Sodium ABG Potassium ABG Chloride ABG Glucose Oxyhemoglobin Carboxyhemoglobin Sodium Potassium 3.1 L Chloride 92.4 L Carbon Dioxide 33 H BUN Creatinine 3.9 H Glucose POC Glucose 59 L 121 H Calcium Phosphorus ALT Troponin T Total Protein Albumin Triglycerides HDL Cholesterol TSH Arterial Blood Glucose Crossmatch 08/06/21 08/06/21 08/06/21 16:35 16:35 17:31 WBC 4.2 L RBC 3.27 L Hgb 8.5 L Hct 26.8 L MCH 26 L RDW 18.7 H Plt Count 124 L Lymph % (Auto) [place] % (Auto) 15.5 H Lymph # (Auto) 0.8 L Seg Neutrophils % Seg Neuts % (Manual) Lymphocytes % (Manual) Monocytes % (Manual) Eosinophils % (Manual) Basophils % (Manual) Seg Neutrophils # Seg Neutrophils # Man Lymphocytes # (Manual) Monocytes # (Manual) APTT ABG pH POC ABG pCO2 POC ABG pO2 ABG pO2 ABG HCO3 ABG O2 Saturation ABG Base Excess ABG Hemoglobin ABG Oxyhemoglobin ABG Sodium ABG Potassium ABG Chloride ABG Glucose Oxyhemoglobin Carboxyhemoglobin Sodium 133 L Potassium Chloride 93.2 L Carbon Dioxide BUN 21 H Creatinine 4.6 H Glucose POC Glucose 62 L Calcium 8.3 L Phosphorus ALT Troponin T Total Protein 6.2 L Albumin 3.2 L Triglycerides HDL Cholesterol TSH Arterial Blood Glucose Crossmatch 08/06/21 08/06/21 08/07/21 18:14 18:22 04:00 WBC 1.0 L* RBC 2.67 L Hgb 7.0 L Hct 21.8 L MCH 26 L RDW 18.7 H Plt Count 82 L Lymph % (Auto) [place] % (Auto) Lymph # (Auto) Seg Neutrophils % Seg Neuts % (Manual) 16.0 L Lymphocytes % (Manual) 60.0 H Monocytes % (Manual) Eosinophils % (Manual) 11.0 H Basophils % (Manual) 4.0 H Seg Neutrophils # Seg Neutrophils # Man 0.2 L Lymphocytes # (Manual) 0.6 L Monocytes # (Manual) APTT ABG pH 7.565 H POC ABG pCO2 POC ABG pO2 ABG pO2 113.3 H ABG HCO3 29.4 H ABG O2 Saturation ABG Base Excess 6.9 H ABG Hemoglobin 8.3 L ABG Oxyhemoglobin ABG Sodium ABG Potassium ABG Chloride ABG Glucose Oxyhemoglobin Carboxyhemoglobin Sodium Potassium Chloride Carbon Dioxide BUN Creatinine Glucose POC Glucose 148 H Calcium Phosphorus ALT Troponin T Total Protein Albumin Triglycerides HDL Cholesterol TSH Arterial Blood Glucose Crossmatch 08/07/21 08/07/21 08/07/21 04:00 04:25 08:30 WBC RBC Hgb Hct MCH RDW Plt Count Lymph % (Auto) [place] % (Auto) Lymph # (Auto) Seg Neutrophils % Seg Neuts % (Manual) Lymphocytes % (Manual) Monocytes % (Manual) Eosinophils % (Manual) Basophils % (Manual) Seg Neutrophils # Seg Neutrophils # Man Lymphocytes # (Manual) Monocytes # (Manual) APTT ABG pH 7.609 H* 7.479 H POC ABG pCO2 POC ABG pO2 ABG pO2 121.4 H 130.2 H ABG HCO3 28.5 H 30.3 H ABG O2 Saturation ABG Base Excess 7.2 H 6.2 H ABG Hemoglobin 10.7 L 8.1 L ABG Oxyhemoglobin ABG Sodium ABG Potassium ABG Chloride ABG Glucose Oxyhemoglobin Carboxyhemoglobin Sodium 133 L Potassium 3.2 L D Chloride 93.9 L Carbon Dioxide BUN 23 H Creatinine 4.3 H Glucose POC Glucose Calcium 8.1 L Phosphorus ALT Troponin T Total Protein Albumin Triglycerides HDL Cholesterol TSH Arterial Blood Glucose Crossmatch 08/07/21 08/07/21 08/07/21 13:18 13:30 15:51 WBC RBC Hgb Hct MCH RDW Plt Count Lymph % (Auto) [place] % (Auto) Lymph # (Auto) Seg Neutrophils % Seg Neuts % (Manual) Lymphocytes % (Manual) Monocytes % (Manual) Eosinophils % (Manual) Basophils % (Manual) Seg Neutrophils # Seg Neutrophils # Man Lymphocytes # (Manual) Monocytes # (Manual) APTT ABG pH POC ABG pCO2 POC ABG pO2 ABG pO2 ABG HCO3 ABG O2 Saturation ABG Base Excess ABG Hemoglobin ABG Oxyhemoglobin ABG Sodium ABG Potassium ABG Chloride ABG Glucose Oxyhemoglobin Carboxyhemoglobin Sodium Potassium Chloride Carbon Dioxide BUN Creatinine Glucose POC Glucose 67 L 58 L Calcium Phosphorus ALT Troponin T Total Protein Albumin Triglycerides HDL Cholesterol TSH 7.070 H Arterial Blood Glucose Crossmatch 08/08/21 08/08/21 08/08/21 04:19 04:26 04:26 WBC RBC Hgb 6.8 L Hct 21.6 L MCH RDW Plt Count 91 L Lymph % (Auto) [place] % (Auto) Lymph # (Auto) Seg Neutrophils % Seg Neuts % (Manual) Lymphocytes % (Manual) Monocytes % (Manual) Eosinophils % (Manual) Basophils % (Manual) Seg Neutrophils # Seg Neutrophils # Man Lymphocytes # (Manual) Monocytes # (Manual) APTT ABG pH 7.545 H POC ABG pCO2 POC ABG pO2 ABG pO2 136.1 H ABG HCO3 27.3 H ABG O2 Saturation ABG Base Excess 4.5 H ABG Hemoglobin 6.9 L ABG Oxyhemoglobin ABG Sodium ABG Potassium ABG Chloride ABG Glucose Oxyhemoglobin Carboxyhemoglobin Sodium 132 L Potassium Chloride 93.5 L Carbon Dioxide BUN Creatinine 3.7 H Glucose POC Glucose Calcium Phosphorus ALT Troponin T Total Protein Albumin Triglycerides HDL Cholesterol TSH Arterial Blood Glucose Crossmatch 08/08/21 08/08/21 08/08/21 09:45 12:23 18:51 WBC RBC Hgb Hct MCH RDW Plt Count Lymph % (Auto) [place] % (Auto) Lymph # (Auto) Seg Neutrophils % Seg Neuts % (Manual) Lymphocytes % (Manual) Monocytes % (Manual) Eosinophils % (Manual) Basophils % (Manual) Seg Neutrophils # Seg Neutrophils # Man Lymphocytes # (Manual) Monocytes # (Manual) APTT ABG pH 7.471 H POC ABG pCO2 POC ABG pO2 71.1 L ABG pO2 ABG HCO3 ABG O2 Saturation ABG Base Excess ABG Hemoglobin ABG Oxyhemoglobin ABG Sodium 128.9 L ABG Potassium ABG Chloride 95.0 L ABG Glucose 64 L Oxyhemoglobin Carboxyhemoglobin Sodium Potassium Chloride Carbon Dioxide BUN Creatinine Glucose POC Glucose 58 L 68 L Calcium Phosphorus ALT Troponin T Total Protein Albumin Triglycerides HDL Cholesterol TSH Arterial Blood Glucose 64 L Crossmatch 08/09/21 08/09/21 08/09/21 04:30 04:33 04:33 WBC 2.4 L RBC 3.16 L Hgb 8.3 L Hct 26.5 L MCH 26 L RDW 18.3 H Plt Count 113 L Lymph % (Auto) [place] % (Auto) Lymph # (Auto) Seg Neutrophils % Seg Neuts % (Manual) Lymphocytes % (Manual) Monocytes % (Manual) Eosinophils % (Manual) Basophils % (Manual) Seg Neutrophils # Seg Neutrophils # Man Lymphocytes # (Manual) Monocytes # (Manual) APTT ABG pH POC ABG pCO2 POC ABG pO2 ABG pO2 91.5 H ABG HCO3 26.6 H ABG O2 Saturation ABG Base Excess ABG Hemoglobin 9.0 L ABG Oxyhemoglobin ABG Sodium ABG Potassium ABG Chloride ABG Glucose Oxyhemoglobin Carboxyhemoglobin Sodium 129 L Potassium Chloride 91.9 L Carbon Dioxide BUN 22 H Creatinine 4.7 H Glucose POC Glucose Calcium Phosphorus ALT Troponin T Total Protein Albumin Triglycerides HDL Cholesterol TSH Arterial Blood Glucose Crossmatch 08/10/21 08/10/21 08/10/21 04:00 04:00 04:55 WBC 3.3 L RBC 3.32 L Hgb 8.9 L Hct 27.6 L MCH 27 L RDW 18.3 H Plt Count Lymph % (Auto) [place] % (Auto) Lymph # (Auto) Seg Neutrophils % Seg Neuts % (Manual) Lymphocytes % (Manual) Monocytes % (Manual) 9.0 H Eosinophils % (Manual) Basophils % (Manual) Seg Neutrophils # Seg Neutrophils # Man Lymphocytes # (Manual) 0.6 L Monocytes # (Manual) APTT ABG pH POC ABG pCO2 POC ABG pO2 ABG pO2 ABG HCO3 ABG O2 Saturation ABG Base Excess ABG Hemoglobin 9.6 L ABG Oxyhemoglobin ABG Sodium 120.3 L ABG Potassium 5.2 H ABG Chloride 88.0 L ABG Glucose Oxyhemoglobin Carboxyhemoglobin 0.4 L Sodium 123 L Potassium 5.5 H D Chloride 84.8 L Carbon Dioxide BUN 30 H Creatinine 5.5 H Glucose 139 H POC Glucose Calcium Phosphorus 5.90 H ALT Troponin T Total Protein Albumin Triglycerides HDL Cholesterol TSH Arterial Blood Glucose Crossmatch 08/10/21 08/11/21 08/11/21 12:17 04:00 05:53 WBC RBC 3.50 L Hgb 9.2 L Hct 29.0 L MCH 26 L RDW 18.4 H Plt Count Lymph % (Auto) [place] % (Auto) Lymph # (Auto) Seg Neutrophils % Seg Neuts % (Manual) 76.0 H Lymphocytes % (Manual) 8.0 L Monocytes % (Manual) 13.0 H Eosinophils % (Manual) Basophils % (Manual) Seg Neutrophils # Seg Neutrophils # Man Lymphocytes # (Manual) 0.6 L Monocytes # (Manual) 0.9 H APTT ABG pH POC ABG pCO2 POC ABG pO2 ABG pO2 ABG HCO3 ABG O2 Saturation ABG Base Excess ABG Hemoglobin ABG Oxyhemoglobin ABG Sodium ABG Potassium ABG Chloride ABG Glucose Oxyhemoglobin Carboxyhemoglobin Sodium 128 L Potassium Chloride 90.3 L Carbon Dioxide BUN 24 H Creatinine 4.3 H Glucose 135 H POC Glucose 142 H Calcium Phosphorus ALT Troponin T Total Protein Albumin Triglycerides HDL Cholesterol TSH Arterial Blood Glucose Crossmatch 08/11/21 08/12/21 08/12/21 16:39 05:23 05:23 WBC RBC 3.20 L Hgb 8.8 L Hct 26.7 L MCH RDW 18.6 H Plt Count Lymph % (Auto) [place] % (Auto) Lymph # (Auto) Seg Neutrophils % Seg Neuts % (Manual) Lymphocytes % (Manual) Monocytes % (Manual) Eosinophils % (Manual) Basophils % (Manual) Seg Neutrophils # Seg Neutrophils # Man Lymphocytes # (Manual) Monocytes # (Manual) APTT ABG pH POC ABG pCO2 POC ABG pO2 ABG pO2 ABG HCO3 ABG O2 Saturation ABG Base Excess ABG Hemoglobin ABG Oxyhemoglobin ABG Sodium ABG Potassium ABG Chloride ABG Glucose Oxyhemoglobin Carboxyhemoglobin Sodium 125 L Potassium Chloride 86.6 L Carbon Dioxide 21 L BUN 34 H Creatinine 5.0 H Glucose 111 H POC Glucose 112 H Calcium Phosphorus ALT Troponin T Total Protein Albumin Triglycerides HDL Cholesterol TSH Arterial Blood Glucose Crossmatch 08/12/21 08/12/21 08/13/21 12:18 17:56 06:01 WBC RBC Hgb Hct MCH RDW Plt Count Lymph % (Auto) [place] % (Auto) Lymph # (Auto) Seg Neutrophils % Seg Neuts % (Manual) Lymphocytes % (Manual) Monocytes % (Manual) Eosinophils % (Manual) Basophils % (Manual) Seg Neutrophils # Seg Neutrophils # Man Lymphocytes # (Manual) Monocytes # (Manual) APTT ABG pH POC ABG pCO2 POC ABG pO2 ABG pO2 ABG HCO3 ABG O2 Saturation ABG Base Excess ABG Hemoglobin ABG Oxyhemoglobin ABG Sodium ABG Potassium ABG Chloride ABG Glucose Oxyhemoglobin Carboxyhemoglobin Sodium Potassium Chloride Carbon Dioxide BUN Creatinine Glucose POC Glucose 140 H 119 H 110 H Calcium Phosphorus ALT Troponin T Total Protein Albumin Triglycerides HDL Cholesterol TSH Arterial Blood Glucose Crossmatch 08/13/21 08/13/21 08/14/21 Unknown Unknown 04:00 WBC RBC Hgb Hct MCH RDW Plt Count Lymph % (Auto) [place] % (Auto) Lymph # (Auto) Seg Neutrophils % Seg Neuts % (Manual) Lymphocytes % (Manual) Monocytes % (Manual) Eosinophils % (Manual) Basophils % (Manual) Seg Neutrophils # Seg Neutrophils # Man Lymphocytes # (Manual) Monocytes # (Manual) APTT ABG pH POC ABG pCO2 POC ABG pO2 ABG pO2 ABG HCO3 ABG O2 Saturation ABG Base Excess ABG Hemoglobin ABG Oxyhemoglobin ABG Sodium ABG Potassium ABG Chloride ABG Glucose Oxyhemoglobin Carboxyhemoglobin Sodium 129 L 128 L Potassium Chloride 90.1 L 89.7 L Carbon Dioxide BUN 24 H 36 H Creatinine 3.8 H 4.2 H Glucose POC Glucose Calcium Phosphorus ALT Troponin T Total Protein Albumin Triglycerides 399 H HDL Cholesterol TSH Arterial Blood Glucose Crossmatch 08/14/21 08/14/21 08/14/21 05:44 11:57 13:12 WBC RBC Hgb Hct MCH RDW Plt Count Lymph % (Auto) [place] % (Auto) Lymph # (Auto) Seg Neutrophils % Seg Neuts % (Manual) Lymphocytes % (Manual) Monocytes % (Manual) Eosinophils % (Manual) Basophils % (Manual) Seg Neutrophils # Seg Neutrophils # Man Lymphocytes # (Manual) Monocytes # (Manual) APTT ABG pH 7.498 H POC ABG pCO2 29.1 L POC ABG pO2 61.8 L ABG pO2 ABG HCO3 ABG O2 Saturation ABG Base Excess ABG Hemoglobin 8.6 L ABG Oxyhemoglobin 91.9 L ABG Sodium 126.4 L ABG Potassium ABG Chloride 92.0 L ABG Glucose 99 H Oxyhemoglobin Carboxyhemoglobin Sodium Potassium Chloride Carbon Dioxide BUN Creatinine Glucose POC Glucose 111 H 111 H Calcium Phosphorus ALT Troponin T Total Protein Albumin Triglycerides HDL Cholesterol TSH Arterial Blood Glucose 99 H Crossmatch 08/14/21 08/15/21 08/15/21 Unknown 04:34 04:34 WBC RBC 3.14 L 2.79 L Hgb 8.5 L 7.8 L Hct 25.5 L 22.8 L MCH 27 L RDW 19.1 H 18.8 H Plt Count Lymph % (Auto) [place] % (Auto) Lymph # (Auto) Seg Neutrophils % Seg Neuts % (Manual) Lymphocytes % (Manual) Monocytes % (Manual) Eosinophils % (Manual) Basophils % (Manual) Seg Neutrophils # Seg Neutrophils # Man Lymphocytes # (Manual) Monocytes # (Manual) APTT ABG pH POC ABG pCO2 POC ABG pO2 ABG pO2 ABG HCO3 ABG O2 Saturation ABG Base Excess ABG Hemoglobin ABG Oxyhemoglobin ABG Sodium ABG Potassium ABG Chloride ABG Glucose Oxyhemoglobin Carboxyhemoglobin Sodium 128 L Potassium Chloride 88.8 L Carbon Dioxide BUN 44 H Creatinine 5.1 H Glucose POC Glucose Calcium Phosphorus ALT Troponin T Total Protein Albumin Triglycerides HDL Cholesterol TSH Arterial Blood Glucose Crossmatch 08/15/21 05:22 WBC RBC Hgb Hct MCH RDW Plt Count Lymph % (Auto) [place] % (Auto) Lymph # (Auto) Seg Neutrophils % Seg Neuts % (Manual) Lymphocytes % (Manual) Monocytes % (Manual) Eosinophils % (Manual) Basophils % (Manual) Seg Neutrophils # Seg Neutrophils # Man Lymphocytes # (Manual) Monocytes # (Manual) APTT ABG pH 7.496 H POC ABG pCO2 29.8 L POC ABG pO2 ABG pO2 ABG HCO3 ABG O2 Saturation ABG Base Excess ABG Hemoglobin 7.4 L ABG Oxyhemoglobin ABG Sodium 124.3 L ABG Potassium ABG Chloride 92.0 L ABG Glucose Oxyhemoglobin Carboxyhemoglobin Sodium Potassium Chloride Carbon Dioxide BUN Creatinine Glucose POC Glucose Calcium Phosphorus ALT Troponin T Total Protein Albumin Triglycerides HDL Cholesterol TSH Arterial Blood Glucose Crossmatch Allied health notes reviewed: nursing
[2021-08-15] MEDS: LOSARTAN 25 MG TAB PO SCH (09:11)
[2021-08-15] MEDS: CLOPIDOGREL 75 MG TAB PO SCH (09:11)
[2021-08-15] MEDS: AMIODARONE 200 MG TAB PO SCH ×2 (09:11→22:23)
[2021-08-15] MEDS: METOPROLOL TARTRATE 50 MG TAB PO SCH ×2 (09:12→22:27)
[2021-08-15] MEDS: HEPARIN 5,000 UNIT/1 ML VIAL SUB-Q SCH ×2 (09:12→22:21)
[2021-08-15] MEDS: ASPIRIN 81 MG TAB CHEW PO SCH (09:12)
[2021-08-15] MEDS: FAMOTIDINE 10 MG TAB PO SCH ×2 (09:12→22:29)
[2021-08-15] MEDS ORDERED: cloNIDine 0.2 MG TAB PO SCH (10:38)
[2021-08-15] MEDS: MINOXIDIL 2.5 MG TAB PO SCH ×2 (11:15→22:22)
[2021-08-15] MEDS: SENNOSIDES ORAL LIQD 8.8 MG/5 ML ORAL LIQD FEEDTUBE SCH ×2 (12:17→22:22)
[2021-08-15] MEDS ORDERED: SODIUM CHLORIDE 0.9% 1000 ML 1,000 ML ONE (12:36)
--- NOTE | 2021-08-15 14:05 | Progress Note ---
Assessment and Plan Patient is a 60-year-old female with recurrent V. tach, end-stage renal disease, s/p ICD, and recurrent severe hypokalemia VT Storm Recurrent AICD Discharges CAD s/p PCI (07/17/2021) Accelerated HTN ESRD on HD Hyponatremia Severe Hypokalemia (POA, resolved) Anemia Thrombocytopenia Type 2 CO HTN H/o CVA Plan: Currently waiting bed availability at [facility] for transfer for VT ablation Continue aspirin, Plavix, Lipitor Continue losartan 100 mg p.o. daily and metoprolol 100 mg p.o. twice daily,hydralazine 100 mg p.o.Q8hrs,amio 400 mg p.o. twice daily Wean nicardipine as tolerated Patient remains hypertensive will initiate minoxidil 5 mg p.o. twice daily Increase to clonidine 0.3 mg p.o. every 8 hours Patient seen in conjunction with Dr. Patel who agrees with this plan of care - Patient Problems (1) AICD discharge Current Visit: Yes Status: Acute (2) Anemia in end-stage renal disease Current Visit: Yes Status: Acute (3) Elevated troponin Current Visit: Yes Status: Acute (4) Hypokalemia Current Visit: Yes Status: Acute (5) Sustained ventricular tachycardia Current Visit: Yes Status: Acute (6) Diabetes Current Visit: No Status: Acute (7) Respiratory failure Current Visit: No Status: Acute Qualifiers: Chronicity: acute Respiratory failure complication: hypoxia Qualified Code(s): J96.01 - Acute respiratory failure with hypoxia (8) Hypertension Current Visit: No Status: Chronic Qualifiers: Hypertension type: primary hypertension Qualified Code(s): I10 - Essential (primary) hypertension Subjective Date of service: 08/15/21 Principal diagnosis: Recurrent VT Interval history: Patient remains intubated and sedated. Patient A paced 70 no events on monitor Objective Vital Signs Temp Pulse Pulse Resp BP Pulse Ox 08/15/21 11:48 70 167/62 100 08/15/21 11:17 98.4 F 08/15/21 09:46 70 17 180/69 98 08/15/21 09:30 70 17 168/72 98 08/15/21 09:16 70 18 168/72 98 08/15/21 09:12 70 177/115 08/15/21 09:00 70 17 172/67 99 08/15/21 08:45 70 17 172/67 99 08/15/21 08:30 70 24 181/72 98 08/15/21 08:00 70 70 13 190/74 100 08/15/21 07:53 70 190/74 08/15/21 07:30 70 12 195/77 98 08/15/21 07:11 99.1 F 08/15/21 07:00 70 12 152/55 100 08/15/21 06:30 70 14 152/55 100 08/15/21 06:00 70 12 164/75 100 08/15/21 05:40 70 164/75 08/15/21 05:30 70 13 164/121 100 08/15/21 05:00 70 13 152/70 100 08/15/21 04:30 70 18 169/64 99 08/15/21 04:00 98.8 F 70 70 13 165/62 99 08/15/21 03:56 70 100 08/15/21 03:30 70 12 165/62 97 08/15/21 03:00 70 10 L 140/107 99 08/15/21 02:30 70 11 L 156/79 100 08/15/21 02:00 70 12 151/98 100 08/15/21 01:30 70 16 112/93 99 08/15/21 01:00 70 11 L 147/51 100 08/15/21 00:30 70 18 98 08/15/21 00:23 70 145/52 97 08/15/21 00:06 70 15 145/52 98 08/15/21 00:00 100.5 F H 70 70 15 145/52 98 08/14/21 23:30 70 13 149/61 99 08/14/21 23:00 70 14 165/64 99 08/14/21 22:30 70 13 164/44 99 08/14/21 22:00 70 13 194/76 99 08/14/21 21:41 70 194/76 08/14/21 21:39 70 194/76 08/14/21 21:30 70 15 170/64 98 08/14/21 21:00 70 16 177/60 98 08/14/21 20:30 70 14 167/61 98 08/14/21 20:00 99.1 F 70 70 14 141/56 99 08/14/21 19:46 70 13 141/56 99 08/14/21 19:30 70 12 188/81 100 08/14/21 19:27 70 99 08/14/21 19:00 70 13 177/79 99 08/14/21 18:46 70 14 177/79 99 08/14/21 18:30 70 12 187/84 99 08/14/21 18:16 70 11 L 187/84 99 08/14/21 18:00 70 11 L 190/73 100 08/14/21 17:46 70 186/79 99 08/14/21 17:30 70 186/79 99 08/14/21 17:25 70 186/79 08/14/21 17:15 70 20 186/79 98 08/14/21 17:00 70 14 168/78 98 08/14/21 16:46 70 14 168/78 99 08/14/21 16:30 70 11 L 169/73 99 08/14/21 16:15 70 13 169/73 100 08/14/21 16:00 98.8 F 70 70 17 171/73 98 08/14/21 15:45 70 18 171/73 98 08/14/21 15:30 70 17 171/73 98 08/14/21 15:15 70 18 171/73 98 08/14/21 15:00 70 18 165/72 08/14/21 14:45 70 17 165/72 99 08/14/21 14:40 70 152/72 98 08/14/21 14:30 70 18 152/72 99 08/14/21 14:15 70 19 158/70 98 08/14/21 14:00 70 14 173/72 99 - Physical Examination General: Other (intubated) HEENT: Positive: Normocephaly, Mucus Membranes Dry Neck: Positive: neck supple, trachea midline. Negative: JVD/HJR Cardiac: Positive: Reg Rate and Rhythm Lungs: Positive: Ventilated Respirations Neuro: Positive: Other (intubated) Abdomen: Positive: Soft Skin: Negative: Rash Musculoskeletal: No Fluid Collection Extremities: Present: lower extr. pulses. Absent: edema - Labs and Meds CBC 08/15/21 Range/Units 04:34 WBC 6.3 (4.5-11.0) K/mm3 RBC 2.79 L (3.65-5.03) M/mm3 Hgb 7.8 L (10.1-14.3) gm/dl Hct 22.8 L (30.3-42.9) % Plt Count 276 (140-440) K/mm3 Comprehensive Metabolic Panel 08/15/21 Range/Units 04:34 Sodium 128 L (137-145) mmol/L Potassium 3.9 (3.6-5.0) mmol/L Chloride 88.8 L (98-107) mmol/L Carbon Dioxide 22 (22-30) mmol/L BUN 44 H (7-17) mg/dL Creatinine 5.1 H (0.6-1.2) mg/dL Glucose 89 (65-100) mg/dL Calcium 9.2 (8.4-10.2) mg/dL - Imaging and Cardiology EKG: report reviewed, image reviewed Echo: report reviewed Cardiac cath: report reviewed - Telemetry EKG Rhythm: Paced - EKG Sinus rhythms and dysrhythmias: sinus rhythm Repolarization changes or abnormalities: Q-T interval prolongation Myocardial infarction: anterior CO (old age or i Pacemaker: atrial pacing w/capture - Allied health notes Allied health notes reviewed: nursing
--- NOTE | 2021-08-15 14:13 | Progress Note ---
Assessment and Plan - Patient Problems (1) Hypokalemia Current Visit: Yes Status: Acute Plan to address problem: levels stable this morning. We will continue to monitor and replete per protocol. (2) Hypertension Current Visit: No Status: Chronic Qualifiers: Hypertension type: primary hypertension Qualified Code(s): I10 - Essential (primary) hypertension Plan to address problem: We increased hydralazine to 100 mg TID. Per cardiology recommendation, will be adding patient on minoxidil. Continue to titrate cardene gtt. Will also increase UF goals with dialysis treatments. Assess daily for needs of sequential UF treatments in order to optimize volume status. (3) Sustained ventricular tachycardia Current Visit: Yes Status: Acute Plan to address problem: intubated, sedated, and has received lidocaine Per cardiology recommendations. Pending transfer to [facility] for ablation. (4) Anemia Current Visit: Yes Status: Chronic Qualifiers: Anemia type: due to chronic kidney disease Plan to address problem: JANETH therapy with hemodialysis (5) End stage renal disease on dialysis Current Visit: Yes Status: Chronic Plan to address problem: Switched to inpatient TTS hemodialysis schedule and will assess daily for needs of extra sequential UF treatment for volume optimization. . (6) Diabetes Current Visit: No Status: Acute Plan to address problem: diabetes management per primary attending. Subjective Date of service: 08/15/21 Principal diagnosis: Recurrent VT Interval history: No acute changes from renal standpoint. Plan for HD today. Objective - Vital Signs Vital signs: Vital Signs - 12hr 08/15/21 08/15/21 08/15/21 02:30 03:00 03:30 Temperature Pulse Rate 70 70 70 Pulse Rate [ From Monitor] Respiratory 11 L 10 L 12 Rate Blood Pressure 156/79 140/107 165/62 O2 Sat by Pulse 100 99 97 Oximetry 08/15/21 08/15/21 08/15/21 03:56 04:00 04:30 Temperature 98.8 F Pulse Rate 70 70 70 Pulse Rate [ 70 From Monitor] Respiratory 13 18 Rate Blood Pressure 165/62 169/64 O2 Sat by Pulse 100 99 99 Oximetry 08/15/21 08/15/21 08/15/21 05:00 05:30 05:40 Temperature Pulse Rate 70 70 70 Pulse Rate [ From Monitor] Respiratory 13 13 Rate Blood Pressure 152/70 164/121 164/75 O2 Sat by Pulse 100 100 Oximetry 08/15/21 08/15/21 08/15/21 06:00 06:30 07:00 Temperature Pulse Rate 70 70 70 Pulse Rate [ From Monitor] Respiratory 12 14 12 Rate Blood Pressure 164/75 152/55 152/55 O2 Sat by Pulse 100 100 100 Oximetry 08/15/21 08/15/21 08/15/21 07:11 07:30 07:53 Temperature 99.1 F Pulse Rate 70 70 Pulse Rate [ From Monitor] Respiratory 12 Rate Blood Pressure 195/77 190/74 O2 Sat by Pulse 98 Oximetry 08/15/21 08/15/21 08/15/21 08:00 08:30 08:45 Temperature Pulse Rate 70 70 70 Pulse Rate [ 70 From Monitor] Respiratory 13 24 17 Rate Blood Pressure 190/74 181/72 172/67 O2 Sat by Pulse 100 98 99 Oximetry 08/15/21 08/15/21 08/15/21 09:00 09:12 09:16 Temperature Pulse Rate 70 70 70 Pulse Rate [ From Monitor] Respiratory 17 18 Rate Blood Pressure 172/67 177/115 168/72 O2 Sat by Pulse 99 98 Oximetry 08/15/21 08/15/21 08/15/21 09:30 09:46 10:00 Temperature Pulse Rate 70 70 70 Pulse Rate [ From Monitor] Respiratory 17 17 19 Rate Blood Pressure 168/72 180/69 180/69 O2 Sat by Pulse 98 98 98 Oximetry 08/15/21 08/15/21 08/15/21 10:16 10:30 10:46 Temperature Pulse Rate 70 70 70 Pulse Rate [ From Monitor] Respiratory 19 18 17 Rate Blood Pressure 166/66 166/66 169/67 O2 Sat by Pulse 98 98 98 Oximetry 08/15/21 08/15/21 08/15/21 11:00 11:16 11:17 Temperature 98.4 F Pulse Rate 70 70 Pulse Rate [ From Monitor] Respiratory 14 18 Rate Blood Pressure 169/67 148/65 O2 Sat by Pulse 99 98 Oximetry 08/15/21 08/15/21 08/15/21 11:30 11:45 11:48 Temperature Pulse Rate 70 70 70 Pulse Rate [ From Monitor] Respiratory 16 15 Rate Blood Pressure 148/65 167/62 167/62 O2 Sat by Pulse 99 99 100 Oximetry 08/15/21 08/15/21 08/15/21 12:00 12:15 12:30 Temperature Pulse Rate 70 70 70 Pulse Rate [ From Monitor] Respiratory 21 15 13 Rate Blood Pressure 167/62 166/68 166/68 O2 Sat by Pulse 100 100 100 Oximetry 08/15/21 08/15/21 08/15/21 12:46 13:00 13:16 Temperature Pulse Rate 70 70 70 Pulse Rate [ From Monitor] Respiratory 15 14 18 Rate Blood Pressure 168/67 168/67 168/67 O2 Sat by Pulse 100 100 99 Oximetry 08/15/21 08/15/21 08/15/21 13:30 13:46 14:00 Temperature Pulse Rate 70 70 70 Pulse Rate [ From Monitor] Respiratory 9 L 14 14 Rate Blood Pressure 168/67 168/67 168/67 O2 Sat by Pulse 100 100 99 Oximetry - General Appearance General appearance: obese, intubated EENT: ATNC Neck: no JVD Respiratory: Present: Decreased Breath Sounds Cardiology: regular Gastrointestinal: normal Integumentary: warm and dry Musculoskeletal: deferred - Lab 08/15/21 04:34 08/15/21 04:34 Most recent lab results ABG pH 7.496 (7.320-7.450) H 08/15/21 05:22 ABG pCO2 41.2 mm Hg 08/09/21 04:30 ABG pO2 91.5 mm Hg (80.0-90.0) H 08/09/21 04:30 ABG HCO3 26.6 mmol/L (20.0-26.0) H 08/09/21 04:30 ABG O2 Saturation 98.1 (0-100) 08/15/21 05:22 Calcium 9.2 mg/dL (8.4-10.2) 08/15/21 04:34 Phosphorus 3.70 mg/dL (2.5-4.5) 08/15/21 04:34 Magnesium 2.10 mg/dL (1.7-2.3) 08/15/21 04:34 - Allied health notes Allied health notes reviewed: nursing Medications & Allergies - Medications Allergies/Adverse Reactions: Allergies No Known Allergies Allergy (Unverified 07/10/21 20:57) Home Medications: Home Medications Medication Instructions Recorded Confirmed Last Taken Type Icosapent Ethyl [Vascepa] 2 gm PO BID 07/12/21 07/12/21 Unknown History Losartan [Cozaar] 25 mg PO BID 07/12/21 07/12/21 Unknown History ALBUTEROL NEB's [Proventil 0.083% 2.5 mg IH Q4HRT PRN nebu 07/15/21 Unknown Rx NEBS] Acetaminophen [Acetaminophen 650 mg [place] Q4H PRN supp.rect 07/15/21 Unknown Rx SUPPOS] Acetaminophen [Acetaminophen TAB] 650 mg PO Q4H PRN tablet 07/15/21 Unknown Rx Amiodarone [Cordarone 200 MG TAB] 200 mg PO BID tablet 07/15/21 Unknown Rx AtorvaSTATin [Lipitor] 80 mg PO QHS tablet 07/15/21 Unknown Rx Clopidogrel [Plavix] 75 mg PO QDAY tablet 07/15/21 Unknown Rx Dextrose 50% in Water [D50W (25GM) 50 ml IV Q30MIN PRN syringe 07/15/21 Unknown Rx Syringe] Free Water 60 ml PO Q4HR oral.liqd 07/15/21 Unknown Rx Isosorbide Dinitrate [Isordil] 5 mg PO Q8HR tablet 07/15/21 Unknown Rx Lipase/Protease/Amylase [Pancreaze 1 each FEEDTUBE PRN PRN capsule 07/15/21 Unknown Rx 10,500 Unit] Lispro Insulin [HumaLOG] 0 unit SUB-Q Q6HR units 07/15/21 Unknown Rx Metoprolol [Lopressor TAB] 25 mg PO TID tablet 07/15/21 Unknown Rx Simple Syrup 30 ml FEEDTUBE PRN PRN oral.liqd 07/15/21 Unknown Rx hydrALAZINE [Apresoline INJ] 10 mg IV Q6H PRN vial 07/15/21 Unknown Rx Active Medications: Generic Name Dose Route Start Last Admin Trade Name Freq PRN Reason Stop Dose Admin Acetaminophen 650 mg 08/06/21 16:30 08/06/21 16:30 Acetaminophen 650 Mg Rect Supp [place] 650 mg Q6H PRN Administration Pain, Mild (1-3) Albuterol 2.5 mg 08/05/21 20:59 Albuterol 2.5 Mg/3 Ml Nebu IH Q4HRT PRN Shortness Of Breath Amiodarone HCl 400 mg 08/14/21 11:00 08/15/21 09:11 Amiodarone 200 Mg Tab PO 400 mg BID JODI Administration Lipase/Protease/Amylase 1 each 08/07/21 09:47 Lipase 10,500/Protease 25,000/Amylase 43,750 (Units) Dr Cap FEEDTUBE PRN PRN For Clogged Feeding Tube Aspirin 81 mg 08/07/21 10:00 08/15/21 09:12 Aspirin 81 Mg Tab Chew PO 81 mg QDAY JODI Administration Atorvastatin Calcium 80 mg 08/05/21 22:00 08/14/21 21:40 Atorvastatin 40 Mg Tab PO 80 mg QHS JODI Administration Clonidine HCl 0.3 mg 08/15/21 14:00 Clonidine 0.1 Mg Tab PO Q8HR JODI Clopidogrel Bisulfate 75 mg 08/10/21 10:00 08/15/21 09:11 Clopidogrel 75 Mg Tab PO 75 mg QDAY JODI Administration Dextrose 25 ml 08/06/21 15:08 08/09/21 05:26 Dextrose 50% In Water (25gm) 50 Ml Syringe IV 15 ml Q30MIN PRN Administration Hypoglycemia Protocol Famotidine 10 mg 08/09/21 22:00 08/15/21 09:12 Famotidine 10 Mg Tab PO 10 mg BID JODI Administration Fentanyl 50 mcg 08/05/21 17:25 08/10/21 10:06 Fentanyl 100 Mcg/2 Ml Inj IV 50 mcg Q10MIN PRN Administration ANALGESIA Heparin Sodium (Porcine) 5,000 unit 08/11/21 10:00 08/15/21 09:12 Heparin 5,000 Unit/1 Ml Vial SUB-Q 5,000 unit Q12HR JODI Administration Hydralazine HCl 10 mg 08/06/21 04:21 08/15/21 07:53 Hydralazine 20 Mg/1 Ml Inj IV 10 mg Q6HR PRN Administration Hypertension Hydralazine HCl 100 mg 08/14/21 10:00 08/15/21 05:40 Hydralazine 100 Mg Tab PO 100 mg Q8HR JODI Administration Hydrophilic Ointment 1 applic 08/05/21 17:25 Lip Therapy Vaseline TP Q2HR PRN Dry Lips Fentanyl Citrate 2,000 mcg in 100 mls @ 3.213 mls/hr 08/05/21 18:00 08/10/21 19:10 Fentanyl Drip Premix IV 0 mcg/kg/hr TITR JODI 0 mls/hr Titration Protocol 1 MCG/KG/HR Propofol 1,000 mg in 100 mls @ 1.928 mls/hr 08/06/21 17:00 08/13/21 08:35 Diprivan 10 Mg/Ml IV Infused TITR JODI Titration Protocol 5 MCG/KG/MIN Nicardipine HCl 50 mg/ Sodium 250 mls @ 25 mls/hr 08/10/21 16:00 08/15/21 09:46 Chloride IV 7.5 mg/hr TITR JODI 37.5 mls/hr Titration Protocol 5 MG/HR Sodium Chloride 100 mls @ 999 mls/hr 08/14/21 17:06 Nacl 0.9% IV GLENDY PRN Hypotension Isosorbide Dinitrate 20 mg 08/11/21 14:00 08/15/21 05:40 Isosorbide Dinitrate 20 Mg Tab PO 20 mg Q8HR JODI Administration Losartan Potassium 100 mg 08/12/21 10:00 08/15/21 09:11 Losartan 25 Mg Tab PO 100 mg DAILY JODI Administration Metoclopramide HCl 5 mg 08/05/21 21:03 Metoclopramide 10 Mg/2 Ml Inj IV Q6H PRN Nausea And Vomiting Metoprolol Tartrate 100 mg 08/12/21 12:00 08/15/21 09:12 Metoprolol Tartrate 50 Mg Tab PO 100 mg BID [facility] Administration Minoxidil 5 mg 08/15/21 10:00 08/15/21 11:15 Minoxidil 2.5 Mg Tab PO 5 mg BID [facility] Administration Multi-Ingred Cream/Lotion/Oil/Oint 1 applic 08/05/21 17:25 Mineral Oil/Petrolatum, White Ophth Oint 3.5 Gm OU Q4HR PRN Dry Eye(s) Ondansetron HCl 4 mg 08/05/21 21:03 Ondansetron 4 Mg/2 Ml Inj IV Q8H PRN Nausea And Vomiting Oxycodone/Acetaminophen 1 tab 08/05/21 21:03 Oxycodone /Acetaminophen 5-325mg Tab PO Q6H PRN Pain, Moderate (4-6) Senna 8.8 mg 08/07/21 13:00 08/15/21 12:17 Sennosides Oral Liqd 8.8 Mg/5 Ml Oral Liqd FEEDTUBE Not Given BID JODI Simple Syrup 15 ml 08/07/21 09:47 Simple Syrup 15 Ml FEEDTUBE PRN PRN Hypoglycemia Simple Syrup 30 ml 08/07/21 09:47 Simple Syrup 15 Ml FEEDTUBE PRN PRN Hypoglycemia Sodium Bicarbonate 325 mg 08/07/21 09:47 Sodium Bicarbonate 325 Mg Tab FEEDTUBE PRN PRN For Clogged Feeding Tube Sodium Chloride 10 ml 08/05/21 22:00 08/15/21 10:16 Sodium Chloride 0.9% 10 Ml Flush Syringe IV 10 ml BID JODI Administration Sodium Chloride 10 ml 08/05/21 21:03 Sodium Chloride 0.9% 10 Ml Flush Syringe IV PRN PRN LINE FLUSH
--- NOTE | 2021-08-15 14:26 | Procedure Note ---
Date of procedure: 08/15/21 Pre-op diagnosis: VT- Storm, Hypertensive Urgency Post-op diagnosis: same Procedure: Right Arterial Line Placement Patient was evaluated and required arterial line placement for Hemodynanic monitoring. Informed consent was obtained from patient's daughter, Carlos Manuel Godinez A time-out was completed verifying correct patient, procedure, site, and positioning. Hand hygiene were performed immediately prior to the procedure and sterile technique was used throughout the procedure. After an Petey test was performed to ensure adequate perfusion, the vessel was identify using an ultrasound machine, the right wrist was then prepped using chlorhexidine scrub and draped in sterile fashion using a three quarter sheet drape. The radial artery was then again identified and the wrist was positioned in the usual fashion. Anesthesia was achieved using 1% lidocaine.Utilizing the Seldinger technique, a finder needle was inserted into the radial artery under ultrasound guidance, pulsating arterial blood return was obtained, then a guidewire was advanced easily into the radial artery. The catheter was then advanced over the wire and the needle and wire were withdrawn. The catheter was then connected to the cardiac cath lab radiology technologist and zeroed, appropriate waveform and blood pressure tracing was observed on the monitor. The catheter was sutured in place, a Biopatch was placed at the insertion site and covered with a sterile dressing. The patient tolerated the procedure well and no complications noted. Total Time Spent with Patient (Minutes): 40 minutes Anesthesia: local Surgeon: ADA FERNANDEZ Estimated blood loss: minimal Condition: critical Disposition: ICU
--- NOTE | 2021-08-15 14:31 | Progress Note ---
Assessment and Plan Assessment and plan: This is 60-year-old female with ESRD on HD, recurrent AICD discharges, V. tach, cardiac arrest, anemia of chronic disease, CAD, systolic HF and HTN admitted for V. tach storm and severe hypokalemia Hospital Course to Date: This is 60-year-old female with ESRD on HD, recurrent AICD discharges, systolic heart failure, V. tach, cardiac arrest, anemia, CAD and HTN who presents to the emergency department from her dialysis center on 08/05 for severe muscle spasms secondary to AICD discharges per patient. She also had questionable seizures in the dialysis center. Patient was started on amiodarone and lidocaine. Patient was intubated for airway protection in the emergency department and work-up also revealed severe hypokalemia. Patient was admitted to the hospital service with consult cardiology, nephrology and [facility]. 08/06/2021: Patient is sedated, Transfer to [facility] arranged 08/07: COVID-19 PCR negative. Patient received hemodialysis today. Off Cardene drip. Patient has been OG tube for p.o. BP medications. Thrombocytopenia persists therefore anticoagulation is held. Patient is leukopenia also. We will continue to trend CBC. Persistent hypoglycemia and D10 drip increased to 30 ml/hr. negative Covid test relayed to [facility]. 08/08: 1 unit prbc today, will start TF today. Still awaiting [facility] bed. 08/09: awaiting transfer to [facility]. TF nearly at goal so anticipate stopping dextrose IVF soon. Midline to be placed 08/10/2021: Received HD today. BP remains elevated therefore started on cardene gtt. Cardiology aware. No beds available yet. 08/11/2021: Cardene gtt infusing, CT head ordered as per nurse patient is not really responding (withdraw/ grimace to pain when off sedation/PERRL/intact cough/gag on PE). 08/12: ANGELINE overnight. Remains on the vent and sedated. On Amio gtt, A-pacing on the monitor, still hypertensive on cardene gtt, home antihypertensive was restarted. Plan for HD this am, hypernatremia too be corrected per Nephro. 08/13: Plan for SAT and SBT this am for possible extubation. Patient remains hypertensive on cardene gtt, clonidine added. 08/14: Patient s/p reintubation by anesthesia. Awake and alert following commands, not on any sedation. Remains hypertensive on amio and cardene gtt. D/w cardio plan to switch to PO Amio and to adjust antihypertensive therapy, hopefully can wean off cardene gtt. Plan to possible transfer patient to [facility] as a way of getting patient into the [facility] system for the needed ablation. Case horacio de la cruz to arrange 08/15: ANGELINE overnight. Patient remains stable on the vent. Still with uncontrolled hypertension despite meds increased yesterday. Patient remains on cardene gt. Cardio added minoxidil, plan is still to wean off cardene gtt. Plan for HD today Assessment and Plan #Neuro: -Intubated,not on any sedation -AAO, following simple commands -Avoid benzodiazepine to reduce the possibility of delirium -PRN analgesia for CPOT greater than 3 -Maintenance of sleep-wake cycle #CV:Hypertension #VTach Storm, AICD is on -Presented muscle spasms 2/2 to AICD discharge -S/p amio gtt, now on PO amio -Patient is currently A-pacing on the monitor, HR 70 -Remains Hypertensive, on cardene gtt -Cardiology consulted, appreciate recommendations -Plan to wean off cardene gtt -Continue antihypertensive therapy per Cardio,, minoxidil added -Continue Blood pressure monitoring for SBP less than 160 -Continue ASA,plavix, and statin -On AC-Heparin Subq -Awaiting transfer to [facility], possibly [facility] #Respiratory:Acute Hypoxemic Respiratory Failure -Intubated in the ED on 08/05 -Extubated and reintubated on 08/14 -Vent setting:A/C-30%,6,12,375 -This AM ABG noted -CCM consulted, appreciate recommendations -VAP bundle addressed -Aspiration precaution HOB above 30 -Daily SBT and SAT trials as tolerated -Daily ABG and CXR per CCM -Continue SPO2 monitoring for SPO2 goal above 92% #GI:TF -Continue enteral Nutritiom -Nutrition consult for tube feeding -Continue PPI -Continue BR: Senokot #: ESRD on HD #Hyponatremia #Hypokalemia-resolved -Presented with severe electrolytes imbalance -Nephrology consulted, appreciate recommendations -Continue HD per nephrology -Plam for HD today -Strict intake and output -Daily weight -Avoid nephrotoxic medications; Renally dose medications -Monitor and replace electrolytes as needed #Heme:Acute on Chronic Anemia of chronic disease #Acute blood loss-resolved #Thrombocytopenia (resolved) -S/p 2 unit PRBC -No s/s of any active bleeding -Trend CBC -Transfuse for hemoglobin less than 7 -Epogen per nephrology -Continue AC- heparin subq -SCDs to bilateral LE while in bed #Endo:Glycemic Control #Hypoglycemia -Was initially hypoglycemic S/p D10 for hypoglycemia -Continue SSI Q6hrs while on TF -Avoid hypoglycemia -Continue Hypoglycemic Protocol Dispo: AWAITING TRANSFER TO [facility] since 08/06/2021 The high probability of a clinically significant sudden or life-threatening deterioration of the [Respiratory,Renal,CV] and endocrine system required my full and direct attention, intervention and postoperative management. The aggregate critical care time was [40] minutes. The time is in addition to time spent performing reported procedures but includes the following: [x] 1: Data review and interpretation [x] 2: Patient assessment and monitoring of vital signs [x] 3: Documentation [x] 4: Medication orders and management Disposition Plan: ICU Total Time Spent with Patient (Minutes): 60 History Interval history: Patient seen and examined at the bedside. Patient remains on the vent, awake and alert, following commands. Per RN, unable to get PIV access on patient, unable to remove CVC at this time. Hospitalist Physical - Constitutional Vitals: Temp Pulse Resp BP Pulse Ox 98.4 F 70 14 168/67 100 08/15/21 11:17 08/15/21 14:16 08/15/21 14:16 08/15/21 14:16 08/15/21 14:16 General appearance: Present: no acute distress, other (Intubated, awake and alert, following commands) HEART Score - HEART Score Age: 45-65 Risk factors: > 3 risk factors or hx of atherosclerotic disease Troponin: Troponin T 0.183 ng/mL (0.00-0.029) H* D 08/05/21 18:56 Troponin: 1-3x normal limit - Critical Actions Critical Actions: 4-6 pts:12-16.6% risk of adverse cardiac event. Should be adm itted Results - Labs CBC & Chem 7: 08/15/21 04:34 08/15/21 04:34 Labs: Laboratory Last Values WBC 6.3 K/mm3 (4.5-11.0) 08/15/21 04:34 RBC 2.79 M/mm3 (3.65-5.03) L 08/15/21 04:34 Hgb 7.8 gm/dl (10.1-14.3) L 08/15/21 04:34 Hct 22.8 % (30.3-42.9) L 08/15/21 04:34 MCV 82 fl (79-97) 08/15/21 04:34 MCH 28 pg (28-32) 08/15/21 04:34 MCHC 34 % (30-34) 08/15/21 04:34 RDW 18.8 % (13.2-15.2) H 08/15/21 04:34 Plt Count 276 K/mm3 (140-440) 08/15/21 04:34 Lymph % (Auto) Doughnut Maker 08/07/21 04:00 [place] % (Auto) Doughnut Maker 08/11/21 04:00 Eos % (Auto) 2.2 % (0.0-4.3) 08/06/21 16:35 Baso % (Auto) Doughnut Maker 08/07/21 04:00 Lymph # (Auto) 0.8 K/mm3 (1.2-5.4) L 08/06/21 16:35 [place] # (Auto) 0.7 K/mm3 (0.0-0.8) 08/06/21 16:35 Eos # (Auto) 0.1 K/mm3 (0.0-0.4) 08/06/21 16:35 Baso # (Auto) 0.1 K/mm3 (0.0-0.1) 08/06/21 16:35 Add Manual Diff Complete 08/11/21 04:00 Total Counted 100 08/11/21 04:00 Seg Neutrophils % Doughnut Maker 08/07/21 04:00 Seg Neuts % (Manual) 76.0 % (40.0-70.0) H 08/11/21 04:00 Band Neutrophils % 2.0 % 08/11/21 04:00 Lymphocytes % (Manual) 8.0 % (13.4-35.0) L 08/11/21 04:00 Reactive Lymphs % (Man) 5.0 % 08/07/21 04:00 Monocytes % (Manual) 13.0 % (0.0-7.3) H 08/11/21 04:00 Eosinophils % (Manual) 1.0 % (0.0-4.3) 08/10/21 04:00 Basophils % (Manual) 4.0 % (0.0-1.8) H 08/07/21 04:00 Metamyelocytes % 1.0 % 08/11/21 04:00 Nucleated RBC % Not Reportable 08/11/21 04:00 Seg Neutrophils # 2.6 K/mm3 (1.8-7.7) 08/06/21 16:35 Seg Neutrophils # Man 5.2 K/mm3 (1.8-7.7) 08/11/21 04:00 Band Neutrophils # 0.1 K/mm3 08/11/21 04:00 Lymphocytes # (Manual) 0.6 K/mm3 (1.2-5.4) L 08/11/21 04:00 Abs React Lymphs (Man) 0.0 K/mm3 08/11/21 04:00 Monocytes # (Manual) 0.9 K/mm3 (0.0-0.8) H 08/11/21 04:00 Eosinophils # (Manual) 0.0 K/mm3 (0.0-0.4) 08/11/21 04:00 Basophils # (Manual) 0.0 K/mm3 (0.0-0.1) 08/11/21 04:00 Metamyelocytes # 0.1 K/mm3 08/11/21 04:00 Myelocytes # 0.0 K/mm3 08/11/21 04:00 Promyelocytes # 0.0 K/mm3 08/11/21 04:00 Blast Cells # 0.0 K/mm3 08/11/21 04:00 WBC Morphology Not Reportable 08/11/21 04:00 WBC Morphology TNR 08/11/21 04:00 Hypersegmented Neuts Not Reportable 08/11/21 04:00 Hyposegmented Neuts Not Reportable 08/11/21 04:00 Hypogranular Neuts Not Reportable 08/11/21 04:00 Smudge Cells Not Reportable 08/11/21 04:00 Toxic Granulation Not Reportable 08/11/21 04:00 Toxic Vacuolation Not Reportable 08/11/21 04:00 Dohle Bodies Not Reportable 08/11/21 04:00 Pelger-Huet Anomaly Not Reportable 08/11/21 04:00 Claudio Rods Not Reportable 08/11/21 04:00 Platelet Estimate Consistent w auto 08/11/21 04:00 Clumped Platelets Not Reportable 08/11/21 04:00 Plt Clumps, EDTA Not Reportable 08/11/21 04:00 Large Platelets Not Reportable 08/11/21 04:00 Giant Platelets Not Reportable 08/11/21 04:00 Platelet Satelliting Not Reportable 08/11/21 04:00 Plt Morphology Comment Not Reportable 08/11/21 04:00 RBC Morphology Not Reportable 08/11/21 04:00 Dimorphic RBCs Not Reportable 08/11/21 04:00 Polychromasia Not Reportable 08/11/21 04:00 Hypochromasia Few 08/11/21 04:00 Poikilocytosis Not Reportable 08/11/21 04:00 Anisocytosis Not Reportable 08/11/21 04:00 Microcytosis Not Reportable 08/11/21 04:00 Macrocytosis Not Reportable 08/11/21 04:00 Spherocytes Not Reportable 08/11/21 04:00 Pappenheimer Bodies Not Reportable 08/11/21 04:00 Sickle Cells Not Reportable 08/11/21 04:00 Target Cells Few 08/11/21 04:00 Tear Drop Cells Not Reportable 08/11/21 04:00 Ovalocytes Not Reportable 08/11/21 04:00 Helmet Cells Not Reportable 08/11/21 04:00 [place] Bodies Not Reportable 08/11/21 04:00 [place] Rings Not Reportable 08/11/21 04:00 [place] Cells Not Reportable 08/11/21 04:00 Bite Cells Not Reportable 08/11/21 04:00 Crenated Cell Not Reportable 08/11/21 04:00 Elliptocytes Not Reportable 08/11/21 04:00 Acanthocytes (Spur) Not Reportable 08/11/21 04:00 Rouleaux Not Reportable 08/11/21 04:00 Hemoglobin C Crystals Not Reportable 08/11/21 04:00 Schistocytes Not Reportable 08/11/21 04:00 Malaria parasites Not Reportable 08/11/21 04:00 Aleks Bodies Not Reportable 08/11/21 04:00 Hem Pathologist Commnt No 08/11/21 04:00 PT 14.2 Sec. (12.2-14.9) 08/06/21 16:35 INR 0.99 (0.87-1.13) 08/06/21 16:35 APTT 37.1 Sec. (24.2-36.6) H 08/06/21 07:26 ABG pH 7.496 (7.320-7.450) H 08/15/21 05:22 POC ABG pCO2 29.8 mmHg (32.0-48.0) L 08/15/21 05:22 ABG pCO2 41.2 mm Hg 08/09/21 04:30 POC ABG pO2 98.4 mmHg (83-108) 08/15/21 05:22 ABG pO2 91.5 mm Hg (80.0-90.0) H 08/09/21 04:30 POC ABG HCO3 22.5 08/15/21 05:22 ABG HCO3 26.6 mmol/L (20.0-26.0) H 08/09/21 04:30 ABG O2 Saturation 98.1 (0-100) 08/15/21 05:22 ABG O2 Content 12.3 (0.0-44) 08/09/21 04:30 POC ABG Base Excess -0.5 08/15/21 05:22 ABG Base Excess 2.0 mmol/L (-2.0-3.0) 08/09/21 04:30 ABG Hemoglobin 7.4 (12.0-17.5) L 08/15/21 05:22 ABG Oxyhemoglobin 96.9 (94-98) 08/15/21 05:22 ABG Carboxyhemoglobin 1.4 % (0.0-5.0) 08/09/21 04:30 ABG Methemoglobin 0 (0.0-1.5) 08/15/21 05:22 ABG Sodium 124.3 mmol/L (136.0-145.0) L 08/15/21 05:22 ABG Potassium 3.5 mmol/L (3.40-4.50) 08/15/21 05:22 ABG Chloride 92.0 mmol/L (98-107) L 08/15/21 05:22 ABG Glucose 85 mg/dL (65-95) 08/15/21 05:22 Oxyhemoglobin 95.4 % (95.0-99.0) 08/09/21 04:30 Carboxyhemoglobin 1.2 (0.5-1.5) 08/15/21 05:22 FiO2 25 % 08/09/21 04:30 FiO2 % 30.0 08/15/21 05:22 Sodium 128 mmol/L (137-145) L 08/15/21 04:34 Potassium 3.9 mmol/L (3.6-5.0) 08/15/21 04:34 Chloride 88.8 mmol/L (98-107) L 08/15/21 04:34 Carbon Dioxide 22 mmol/L (22-30) 08/15/21 04:34 Anion Gap 21 mmol/L 08/15/21 04:34 BUN 44 mg/dL (7-17) H 08/15/21 04:34 Creatinine 5.1 mg/dL (0.6-1.2) H 08/15/21 04:34 Estimated GFR 10 ml/min 08/15/21 04:34 BUN/Creatinine Ratio 9 % 08/15/21 04:34 Glucose 89 mg/dL (65-100) 08/15/21 04:34 POC Glucose 111 mg/dL (70-105) H 08/15/21 10:56 Calcium 9.2 mg/dL (8.4-10.2) 08/15/21 04:34 Phosphorus 3.70 mg/dL (2.5-4.5) 08/15/21 04:34 Magnesium 2.10 mg/dL (1.7-2.3) 08/15/21 04:34 Total Bilirubin 0.70 mg/dL (0.1-1.2) 08/06/21 16:35 AST 18 units/L (5-40) 08/06/21 16:35 ALT 7 units/L (7-56) 08/06/21 16:35 Alkaline Phosphatase 102 units/L (35-129) 08/06/21 16:35 Troponin T 0.183 ng/mL (0.00-0.029) H* D 08/05/21 18:56 Total Protein 6.2 g/dL (6.3-8.2) L 08/06/21 16:35 Albumin 3.2 g/dL (3.9-5) L 08/06/21 16:35 Albumin/Globulin Ratio 1.1 % 08/06/21 16:35 Triglycerides 399 mg/dL (2-149) H 08/13/21 Unknown Cholesterol 170 mg/dL (50-199) 08/05/21 15:55 LDL Cholesterol Direct 106 mg/dL (50-130) 08/05/21 15:55 HDL Cholesterol 32 mg/dL (40-59) L 08/05/21 15:55 Cholesterol/HDL Ratio 5.31 % 08/05/21 15:55 TSH 7.070 mlU/mL (0.270-4.200) H 08/07/21 13:30 Arterial Blood Glucose 85 mg/dL (65-95) 08/15/21 05:22 Arterial Blood Ionized Calcium 4.8 mg/dL (4.6-5.3) 08/15/21 05:22 Coronavirus (PCR) Negative (Negative) 08/07/21 Unknown Hepatitis A IgM Ab Non-reactive (NonReactive) 08/08/21 04:26 Hep Bs Antigen Nonreactive (Negative) 08/08/21 04:26 Hep B Core IgM Ab Non-reactive (NonReactive) 08/08/21 04:26 Hepatitis C Antibody Non-reactive (NonReactive) 08/08/21 04:26 Blood Type O POSITIVE 08/06/21 05:30 Antibody Screen Negative 08/06/21 05:30 Crossmatch See Detail 08/06/21 05:30 Active Medications - Current Medications Current Medications: Generic Name Dose Route Start Last Admin Trade Name Freq PRN Reason Stop Dose Admin Acetaminophen 650 mg 08/06/21 16:30 08/06/21 16:30 Acetaminophen 650 Mg Rect Supp [place] 650 mg Q6H PRN Administration Pain, Mild (1-3) Albuterol 2.5 mg 08/05/21 20:59 Albuterol 2.5 Mg/3 Ml Nebu IH Q4HRT PRN Shortness Of Breath Amiodarone HCl 400 mg 08/14/21 11:00 08/15/21 09:11 Amiodarone 200 Mg Tab PO 400 mg BID JODI Administration Lipase/Protease/Amylase 1 each 08/07/21 09:47 Lipase 10,500/Protease 25,000/Amylase 43,750 (Units) Dr Cap FEEDTUBE PRN PRN For Clogged Feeding Tube Aspirin 81 mg 08/07/21 10:00 08/15/21 09:12 Aspirin 81 Mg Tab Chew PO 81 mg QDAY JODI Administration Atorvastatin Calcium 80 mg 08/05/21 22:00 08/14/21 21:40 Atorvastatin 40 Mg Tab PO 80 mg QHS JODI Administration Clonidine HCl 0.3 mg 08/15/21 14:00 Clonidine 0.1 Mg Tab PO Q8HR JODI Clopidogrel Bisulfate 75 mg 08/10/21 10:00 08/15/21 09:11 Clopidogrel 75 Mg Tab PO 75 mg QDAY JODI Administration Dextrose 25 ml 08/06/21 15:08 08/09/21 05:26 Dextrose 50% In Water (25gm) 50 Ml Syringe IV 15 ml Q30MIN PRN Administration Hypoglycemia Protocol Famotidine 10 mg 08/09/21 22:00 08/15/21 09:12 Famotidine 10 Mg Tab PO 10 mg BID JODI Administration Fentanyl 50 mcg 08/05/21 17:25 08/10/21 10:06 Fentanyl 100 Mcg/2 Ml Inj IV 50 mcg Q10MIN PRN Administration ANALGESIA Heparin Sodium (Porcine) 5,000 unit 08/11/21 10:00 08/15/21 09:12 Heparin 5,000 Unit/1 Ml Vial SUB-Q 5,000 unit Q12HR JODI Administration Hydralazine HCl 10 mg 08/06/21 04:21 08/15/21 07:53 Hydralazine 20 Mg/1 Ml Inj IV 10 mg Q6HR PRN Administration Hypertension Hydralazine HCl 100 mg 08/14/21 10:00 08/15/21 05:40 Hydralazine 100 Mg Tab PO 100 mg Q8HR JODI Administration Hydrophilic Ointment 1 applic 08/05/21 17:25 Lip Therapy Vaseline TP Q2HR PRN Dry Lips Fentanyl Citrate 2,000 mcg in 100 mls @ 3.213 mls/hr 08/05/21 18:00 08/10/21 19:10 Fentanyl Drip Premix IV 0 mcg/kg/hr TITR JODI 0 mls/hr Titration Protocol 1 MCG/KG/HR Propofol 1,000 mg in 100 mls @ 1.928 mls/hr 08/06/21 17:00 08/13/21 08:35 Diprivan 10 Mg/Ml IV Infused TITR JODI Titration Protocol 5 MCG/KG/MIN Nicardipine HCl 50 mg/ Sodium 250 mls @ 25 mls/hr 08/10/21 16:00 08/15/21 09:46 Chloride IV 7.5 mg/hr TITR JODI 37.5 mls/hr Titration Protocol 5 MG/HR Sodium Chloride 100 mls @ 999 mls/hr 08/14/21 17:06 Nacl 0.9% IV GLENDY PRN Hypotension Isosorbide Dinitrate 20 mg 08/11/21 14:00 08/15/21 05:40 Isosorbide Dinitrate 20 Mg Tab PO 20 mg Q8HR JODI Administration Losartan Potassium 100 mg 08/12/21 10:00 08/15/21 09:11 Losartan 25 Mg Tab PO 100 mg DAILY JODI Administration Metoclopramide HCl 5 mg 08/05/21 21:03 Metoclopramide 10 Mg/2 Ml Inj IV Q6H PRN Nausea And Vomiting Metoprolol Tartrate 100 mg 08/12/21 12:00 08/15/21 09:12 Metoprolol Tartrate 50 Mg Tab PO 100 mg BID JODI Administration Minoxidil 5 mg 08/15/21 10:00 08/15/21 11:15 Minoxidil 2.5 Mg Tab PO 5 mg BID [facility] Administration Multi-Ingred Cream/Lotion/Oil/Oint 1 applic 08/05/21 17:25 Mineral Oil/Petrolatum, White Ophth Oint 3.5 Gm OU Q4HR PRN Dry Eye(s) Ondansetron HCl 4 mg 08/05/21 21:03 Ondansetron 4 Mg/2 Ml Inj IV Q8H PRN Nausea And Vomiting Oxycodone/Acetaminophen 1 tab 08/05/21 21:03 Oxycodone /Acetaminophen 5-325mg Tab PO Q6H PRN Pain, Moderate (4-6) Senna 8.8 mg 08/07/21 13:00 08/15/21 12:17 Sennosides Oral Liqd 8.8 Mg/5 Ml Oral Liqd FEEDTUBE Not Given BID JODI Simple Syrup 15 ml 08/07/21 09:47 Simple Syrup 15 Ml FEEDTUBE PRN PRN Hypoglycemia Simple Syrup 30 ml 08/07/21 09:47 Simple Syrup 15 Ml FEEDTUBE PRN PRN Hypoglycemia Sodium Bicarbonate 325 mg 08/07/21 09:47 Sodium Bicarbonate 325 Mg Tab FEEDTUBE PRN PRN For Clogged Feeding Tube Sodium Chloride 10 ml 08/05/21 22:00 08/15/21 10:16 Sodium Chloride 0.9% 10 Ml Flush Syringe IV 10 ml BID JODI Administration Sodium Chloride 10 ml 08/05/21 21:03 Sodium Chloride 0.9% 10 Ml Flush Syringe IV PRN PRN LINE FLUSH Nutrition/Malnutrition Assess - Dietary Evaluation Nutrition/Malnutrition Findings: Nutrition Notes Start: 08/07/21 09:12 Freq: Status: Active Protocol: Document 08/09/21 18:21 KALA (Rec: 08/09/21 18:25 KALA [id number]) Nutrition Notes Initial or Follow up Brief Note Current Diet TF-Nepro w/CARBSTEADY @ 32 ml/ hr (since L 08/07). Weight change and time frame No body weight change reported . Weight Status Overweight Subjective/Other Information RD consult for routine F/U on TF tolerance. TF continues without changes. Percent of energy/protein needs met: Prescribed Nepro w/CARBSTEADY @ 32 ml/hr will provide for energy/protein needs (1,403 Kcal/63 g) 100% Kcal; 82% AA, during LOS. #1 Nutrition Diagnosis Inadequate oral intake Diagnosis Progress(for reassessment Continues documentation) Nutrition Intervention Nutrition Support: Continue Nepro w/CARBSTEADY @ 32 ml/hr. Flush: 140 ml water Q 4 hr. Goal #1 Provide at least 75% of energy /protein needs through Enteral Feeding during LOS. Follow-Up By: 08/16/21 Additional Comments Continue monitoring TF tolerance, and BM.
[2021-08-15] MEDS: cloNIDine 0.1 MG TAB PO SCH ×2 (14:48→22:26)
[2021-08-15] MEDS: EPOETIN ALFA-EPBX 10,000 UNIT/1 ML VIAL IV PRN (20:01)
[2021-08-16] MEDS: ISOSORBIDE DINITRATE 20 MG TAB PO SCH ×3 (05:15→22:08)
[2021-08-16] MEDS: cloNIDine 0.1 MG TAB PO SCH ×3 (05:15→22:08)
[2021-08-16] MEDS: hydrALAZINE 100 MG TAB PO SCH ×3 (05:16→22:08)
[2021-08-16 05:37] LABS: Hematocrit 23.9 % (30.3-42.9); Mean Corpuscular HGB Conc 34 % (30-34); Mean Corpuscular Volume 81 fl (79-97); Platelet Count 281 K/mm3 (140-440); Red Blood Count 2.96 M/mm3 (3.65-5.03); Red Cell Distribution Width 18.6 % (13.2-15.2)
[2021-08-16 05:50] LABS: Calcium 8.7 mg/dL (8.4-10.2)
[2021-08-16] MEDS ORDERED: EPINEPHrine RACEMIC 2.25% 0.5ML NEBU IH ONE (06:27)
[2021-08-16] MEDS ORDERED: ETOMIDATE 20 MG/10 ML INJ IV ONE (06:30)
--- NOTE | 2021-08-16 06:50 | Event Note ---
Date: 08/16/21 Called to see patient who self extubated herself. Patient reintubated by respiratory therapist without any complications.
--- NOTE | 2021-08-16 08:59 | Progress Note ---
Assessment and Plan - Patient Problems (1) Hypokalemia Current Visit: Yes Status: Acute Plan to address problem: levels stable this morning. We will continue to monitor and replete per protocol. (2) Hypertension Current Visit: No Status: Chronic Qualifiers: Hypertension type: primary hypertension Qualified Code(s): I10 - Essential (primary) hypertension Plan to address problem: Has now been weaned off cardene gtt and stable this am. (3) Sustained ventricular tachycardia Current Visit: Yes Status: Acute Plan to address problem: intubated, sedated, and has received lidocaine Per cardiology recommendations. Pending transfer to [place] for ablation. (4) Anemia Current Visit: Yes Status: Chronic Qualifiers: Anemia type: due to chronic kidney disease Plan to address problem: JANETH therapy with hemodialysis (5) End stage renal disease on dialysis Current Visit: Yes Status: Chronic Plan to address problem: Will keep on MWF inpatient HD schedule to allow for extra dialysis treatment and fluid removal today. (6) Diabetes Current Visit: No Status: Acute Plan to address problem: diabetes management per primary attending. Subjective Date of service: 08/16/21 Principal diagnosis: Recurrent VT Interval history: had HD yesterday with UF 3L. Plan for HD today and will maintain on MWF HD schedule. Cardene gtt has been weaned off at this time. Objective - Vital Signs Vital signs: Vital Signs - 12hr 08/15/21 08/15/21 08/15/21 21:00 21:15 21:30 Temperature Pulse Rate 70 70 70 Pulse Rate [ From Monitor] Respiratory 14 14 Rate Blood Pressure 178/65 175/61 178/65 O2 Sat by Pulse 98 99 Oximetry O2 Sat by Pulse Oximetry [ Anterior Bilateral] O2 Sat by Pulse Oximetry [ Bases] O2 Sat by Pulse Oximetry [ Bilateral Bases ] O2 Sat by Pulse Oximetry [ Bilateral Throughout] 08/15/21 08/15/21 08/15/21 21:45 22:00 22:15 Temperature Pulse Rate 70 70 70 Pulse Rate [ From Monitor] Respiratory 20 Rate Blood Pressure 170/59 168/55 165/55 O2 Sat by Pulse 99 Oximetry O2 Sat by Pulse Oximetry [ Anterior Bilateral] O2 Sat by Pulse Oximetry [ Bases] O2 Sat by Pulse Oximetry [ Bilateral Bases ] O2 Sat by Pulse Oximetry [ Bilateral Throughout] 08/15/21 08/15/21 08/15/21 22:26 22:27 22:30 Temperature Pulse Rate 70 70 70 Pulse Rate [ From Monitor] Respiratory 13 Rate Blood Pressure 167/54 175/57 O2 Sat by Pulse 96 Oximetry O2 Sat by Pulse Oximetry [ Anterior Bilateral] O2 Sat by Pulse Oximetry [ Bases] O2 Sat by Pulse Oximetry [ Bilateral Bases ] O2 Sat by Pulse Oximetry [ Bilateral Throughout] 08/15/21 08/15/21 08/15/21 22:50 23:00 23:30 Temperature 98.2 F Pulse Rate 70 70 70 Pulse Rate [ From Monitor] Respiratory 21 13 18 Rate Blood Pressure 178/63 O2 Sat by Pulse 100 100 Oximetry O2 Sat by Pulse 98 Oximetry [ Anterior Bilateral] O2 Sat by Pulse 99 Oximetry [ Bases] O2 Sat by Pulse 98 Oximetry [ Bilateral Bases ] O2 Sat by Pulse 98 Oximetry [ Bilateral Throughout] 08/15/21 08/16/21 08/16/21 23:47 00:00 00:10 Temperature 99.8 F H Pulse Rate 70 70 Pulse Rate [ 70 From Monitor] Respiratory 15 Rate Blood Pressure 146/45 O2 Sat by Pulse 100 96 Oximetry O2 Sat by Pulse Oximetry [ Anterior Bilateral] O2 Sat by Pulse Oximetry [ Bases] O2 Sat by Pulse Oximetry [ Bilateral Bases ] O2 Sat by Pulse Oximetry [ Bilateral Throughout] 08/16/21 08/16/21 08/16/21 00:31 01:01 01:31 Temperature Pulse Rate 70 70 70 Pulse Rate [ From Monitor] Respiratory 14 13 13 Rate Blood Pressure O2 Sat by Pulse 99 99 99 Oximetry O2 Sat by Pulse Oximetry [ Anterior Bilateral] O2 Sat by Pulse Oximetry [ Bases] O2 Sat by Pulse Oximetry [ Bilateral Bases ] O2 Sat by Pulse Oximetry [ Bilateral Throughout] 08/16/21 08/16/21 08/16/21 02:01 02:31 03:01 Temperature Pulse Rate 70 70 70 Pulse Rate [ From Monitor] Respiratory 18 20 14 Rate Blood Pressure O2 Sat by Pulse 98 99 95 Oximetry O2 Sat by Pulse Oximetry [ Anterior Bilateral] O2 Sat by Pulse Oximetry [ Bases] O2 Sat by Pulse Oximetry [ Bilateral Bases ] O2 Sat by Pulse Oximetry [ Bilateral Throughout] 08/16/21 08/16/21 08/16/21 03:31 04:00 04:31 Temperature 100.6 F H Pulse Rate 70 70 70 Pulse Rate [ 70 From Monitor] Respiratory 13 16 13 Rate Blood Pressure 178/65 O2 Sat by Pulse 100 96 100 Oximetry O2 Sat by Pulse Oximetry [ Anterior Bilateral] O2 Sat by Pulse Oximetry [ Bases] O2 Sat by Pulse Oximetry [ Bilateral Bases ] O2 Sat by Pulse Oximetry [ Bilateral Throughout] 08/16/21 08/16/21 08/16/21 05:01 05:15 05:31 Temperature Pulse Rate 70 70 70 Pulse Rate [ From Monitor] Respiratory 17 12 Rate Blood Pressure 155/55 O2 Sat by Pulse 100 Oximetry O2 Sat by Pulse Oximetry [ Anterior Bilateral] O2 Sat by Pulse Oximetry [ Bases] O2 Sat by Pulse Oximetry [ Bilateral Bases ] O2 Sat by Pulse Oximetry [ Bilateral Throughout] 08/16/21 08/16/21 08/16/21 06:01 06:20 07:46 Temperature 98.0 F Pulse Rate 70 Pulse Rate [ From Monitor] Respiratory 24 Rate Blood Pressure O2 Sat by Pulse 100 100 Oximetry O2 Sat by Pulse Oximetry [ Anterior Bilateral] O2 Sat by Pulse Oximetry [ Bases] O2 Sat by Pulse Oximetry [ Bilateral Bases ] O2 Sat by Pulse Oximetry [ Bilateral Throughout] 08/16/21 08:00 Temperature Pulse Rate 70 Pulse Rate [ From Monitor] Respiratory Rate Blood Pressure 155/55 O2 Sat by Pulse 99 Oximetry O2 Sat by Pulse Oximetry [ Anterior Bilateral] O2 Sat by Pulse Oximetry [ Bases] O2 Sat by Pulse Oximetry [ Bilateral Bases ] O2 Sat by Pulse Oximetry [ Bilateral Throughout] - General Appearance General appearance: obese, chronically ill, intubated EENT: ATNC Neck: no JVD Respiratory: Present: Decreased Breath Sounds Cardiology: regular Gastrointestinal: normal Integumentary: no rash Musculoskeletal: deferred - Lab 08/16/21 04:00 08/16/21 04:00 Most recent lab results ABG pH 7.496 (7.320-7.450) H 08/15/21 05:22 ABG pCO2 41.2 mm Hg 08/09/21 04:30 ABG pO2 91.5 mm Hg (80.0-90.0) H 08/09/21 04:30 ABG HCO3 26.6 mmol/L (20.0-26.0) H 08/09/21 04:30 ABG O2 Saturation 98.1 (0-100) 08/15/21 05:22 Calcium 8.7 mg/dL (8.4-10.2) 08/16/21 04:00 Phosphorus 2.90 mg/dL (2.5-4.5) D 08/16/21 04:00 Magnesium 1.90 mg/dL (1.7-2.3) 08/16/21 04:00 - Allied health notes Allied health notes reviewed: nursing Medications & Allergies - Medications Allergies/Adverse Reactions: Allergies No Known Allergies Allergy (Unverified 07/10/21 20:57) Home Medications: Home Medications Medication Instructions Recorded Confirmed Last Taken Type Icosapent Ethyl [Vascepa] 2 gm PO BID 07/12/21 07/12/21 Unknown History Losartan [Cozaar] 25 mg PO BID 07/12/21 07/12/21 Unknown History ALBUTEROL NEB's [Proventil 0.083% 2.5 mg IH Q4HRT PRN nebu 07/15/21 Unknown Rx NEBS] Acetaminophen [Acetaminophen 650 mg [place] Q4H PRN supp.rect 07/15/21 Unknown Rx SUPPOS] Acetaminophen [Acetaminophen TAB] 650 mg PO Q4H PRN tablet 07/15/21 Unknown Rx Amiodarone [Cordarone 200 MG TAB] 200 mg PO BID tablet 07/15/21 Unknown Rx AtorvaSTATin [Lipitor] 80 mg PO QHS tablet 07/15/21 Unknown Rx Clopidogrel [Plavix] 75 mg PO QDAY tablet 07/15/21 Unknown Rx Dextrose 50% in Water [D50W (25GM) 50 ml IV Q30MIN PRN syringe 07/15/21 Unknown Rx Syringe] Free Water 60 ml PO Q4HR oral.liqd 07/15/21 Unknown Rx Isosorbide Dinitrate [Isordil] 5 mg PO Q8HR tablet 07/15/21 Unknown Rx Lipase/Protease/Amylase [Pancreaze 1 each FEEDTUBE PRN PRN capsule 07/15/[address] 10,500 Unit] Lispro Insulin [HumaLOG] 0 unit SUB-Q Q6HR units 07/15/21 Unknown Rx Metoprolol [Lopressor TAB] 25 mg PO TID tablet 07/15/21 Unknown Rx Simple Syrup 30 ml FEEDTUBE PRN PRN oral.liqd 07/15/21 Unknown Rx hydrALAZINE [Apresoline INJ] 10 mg IV Q6H PRN vial 07/15/21 Unknown Rx Active Medications: Generic Name Dose Route Start Last Admin Trade Name Freq PRN Reason Stop Dose Admin Acetaminophen 650 mg 08/06/21 16:30 08/06/21 16:30 Acetaminophen 650 Mg Rect Supp [place] 650 mg Q6H PRN Administration Pain, Mild (1-3) Albuterol 2.5 mg 08/05/21 20:59 Albuterol 2.5 Mg/3 Ml Nebu IH Q4HRT PRN Shortness Of Breath Amiodarone HCl 400 mg 08/14/21 11:00 08/15/21 22:23 Amiodarone 200 Mg Tab PO 400 mg BID JODI Administration Lipase/Protease/Amylase 1 each 08/07/21 09:47 Lipase 10,500/Protease 25,000/Amylase 43,750 (Units) Dr Thomas FEEDTUBE PRN PRN For Clogged Feeding Tube Aspirin 81 mg 08/07/21 10:00 08/15/21 09:12 Aspirin 81 Mg Tab Chew PO 81 mg QDAY JODI Administration Atorvastatin Calcium 80 mg 08/05/21 22:00 08/15/21 22:21 Atorvastatin 40 Mg Tab PO 80 mg QHS JODI Administration Clonidine HCl 0.3 mg 08/15/21 14:00 08/16/21 05:15 Clonidine 0.1 Mg Tab PO 0.3 mg Q8HR JODI Administration Clopidogrel Bisulfate 75 mg 08/10/21 10:00 08/15/21 09:11 Clopidogrel 75 Mg Tab PO 75 mg QDAY JODI Administration Dextrose 25 ml 08/06/21 15:08 08/09/21 05:26 Dextrose 50% In Water (25gm) 50 Ml Syringe IV 15 ml Q30MIN PRN Administration Hypoglycemia Protocol Famotidine 10 mg 08/09/21 22:00 08/15/21 22:29 Famotidine 10 Mg Tab PO Not Given BID JODI Fentanyl 50 mcg 08/05/21 17:25 08/10/21 10:06 Fentanyl 100 Mcg/2 Ml Inj IV 50 mcg Q10MIN PRN Administration ANALGESIA Heparin Sodium (Porcine) 5,000 unit 08/11/21 10:00 08/15/21 22:21 Heparin 5,000 Unit/1 Ml Vial SUB-Q 5,000 unit Q12HR JODI Administration Hydralazine HCl 10 mg 08/06/21 04:21 08/15/21 07:53 Hydralazine 20 Mg/1 Ml Inj IV 10 mg Q6HR PRN Administration Hypertension Hydralazine HCl 100 mg 08/14/21 10:00 08/16/21 05:16 Hydralazine 100 Mg Tab PO 100 mg Q8HR JODI Administration Hydrophilic Ointment 1 applic 08/05/21 17:25 Lip Therapy Vaseline TP Q2HR PRN Dry Lips Fentanyl Citrate 2,000 mcg in 100 mls @ 3.213 mls/hr 08/05/21 18:00 08/10/21 19:10 Fentanyl Drip Premix IV 0 mcg/kg/hr TITR JODI 0 mls/hr Titration Protocol 1 MCG/KG/HR Propofol 1,000 mg in 100 mls @ 1.928 mls/hr 08/06/21 17:00 08/16/21 07:05 Diprivan 10 Mg/Ml IV 10 mcg/kg/min TITR JODI 3.855 mls/hr Titration Protocol 5 MCG/KG/MIN Nicardipine HCl 50 mg/ Sodium 250 mls @ 25 mls/hr 08/10/21 16:00 08/16/21 07:05 Chloride IV 0 mg/hr TITR JODI 0 mls/hr Titration Protocol 5 MG/HR Sodium Chloride 100 mls @ 999 mls/hr 08/14/21 17:06 Nacl 0.9% IV GLENDY PRN Hypotension Isosorbide Dinitrate 20 mg 08/11/21 14:00 08/16/21 05:15 Isosorbide Dinitrate 20 Mg Tab PO 20 mg Q8HR JODI Administration Losartan Potassium 100 mg 08/12/21 10:00 08/15/21 09:11 Losartan 25 Mg Tab PO 100 mg DAILY JODI Administration Metoclopramide HCl 5 mg 08/05/21 21:03 Metoclopramide 10 Mg/2 Ml Inj IV Q6H PRN Nausea And Vomiting Metoprolol Tartrate 100 mg 08/12/21 12:00 08/15/21 22:27 Metoprolol Tartrate 50 Mg Tab PO 100 mg BID JODI Administration Minoxidil 5 mg 08/15/21 10:00 08/15/21 22:22 Minoxidil 2.5 Mg Tab PO 5 mg BID JODI Administration Multi-Ingred Cream/Lotion/Oil/Oint 1 applic 08/05/21 17:25 Mineral Oil/Petrolatum, White Ophth Oint 3.5 Gm OU Q4HR PRN Dry Eye(s) Ondansetron HCl 4 mg 08/05/21 21:03 Ondansetron 4 Mg/2 Ml Inj IV Q8H PRN Nausea And Vomiting Oxycodone/Acetaminophen 1 tab 08/05/21 21:03 Oxycodone /Acetaminophen 5-325mg Tab PO Q6H PRN Pain, Moderate (4-6) Senna 8.8 mg 08/07/21 13:00 08/15/21 22:22 Sennosides Oral Liqd 8.8 Mg/5 Ml Oral Liqd FEEDTUBE Not Given BID JODI Simple Syrup 15 ml 08/07/21 09:47 Simple Syrup 15 Ml FEEDTUBE PRN PRN Hypoglycemia Simple Syrup 30 ml 08/07/21 09:47 Simple Syrup 15 Ml FEEDTUBE PRN PRN Hypoglycemia Sodium Bicarbonate 325 mg 08/07/21 09:47 Sodium Bicarbonate 325 Mg Tab FEEDTUBE PRN PRN For Clogged Feeding Tube Sodium Chloride 10 ml 08/05/21 22:00 08/15/21 22:29 Sodium Chloride 0.9% 10 Ml Flush Syringe IV 10 ml BID JODI Administration Sodium Chloride 10 ml 08/05/21 21:03 Sodium Chloride 0.9% 10 Ml Flush Syringe IV PRN PRN LINE FLUSH
--- NOTE | 2021-08-16 09:18 | XRay Report ---
CHEST 1 VIEW INDICATION / CLINICAL INFORMATION: New ETT placement. Dyspnea FINDINGS: SUPPORT DEVICES: The tip of the endotracheal tube remains within the proximal aspect of the right [place] nstem bronchus is has not significantly changed from 08/16/2021. Endotracheal tube should be withdrawn 2 to 3 cm. HEART / MEDIASTINUM: The cardiomediastinal silhouette has not significantly changed in the interim. LUNGS / PLEURA: Patchy bilateral airspace disease. This has slightly worsened from 08/13/2021 Signer Name: Samuel Medina MD Signed: 08/16/2021 9:14 AM Workstation Name: [id number]
[2021-08-16] MEDS: ASPIRIN 81 MG TAB CHEW PO SCH (10:51)
[2021-08-16] MEDS: LOSARTAN 25 MG TAB PO SCH (10:51)
[2021-08-16] MEDS: HEPARIN 5,000 UNIT/1 ML VIAL SUB-Q SCH ×2 (10:51→22:08)
[2021-08-16] MEDS: AMIODARONE 200 MG TAB PO SCH ×2 (10:51→22:07)
[2021-08-16] MEDS: METOPROLOL TARTRATE 50 MG TAB PO SCH ×2 (10:52→22:07)
[2021-08-16] MEDS: MINOXIDIL 2.5 MG TAB PO SCH ×2 (10:52→22:07)
[2021-08-16] MEDS: FAMOTIDINE 10 MG TAB PO SCH ×2 (10:52→22:07)
[2021-08-16] MEDS: CLOPIDOGREL 75 MG TAB PO SCH (10:53)
[2021-08-16] MEDS: SENNOSIDES ORAL LIQD 8.8 MG/5 ML ORAL LIQD FEEDTUBE SCH ×2 (10:53→22:10)
--- NOTE | 2021-08-16 11:14 | Progress Note ---
Assessment and Plan Assessment and plan: This is 60-year-old female with ESRD on HD, recurrent AICD discharges, V. tach, cardiac arrest, anemia of chronic disease, CAD, systolic HF and HTN admitted for V. tach storm and severe hypokalemia Hospital Course to Date: This is 60-year-old female with ESRD on HD, recurrent AICD discharges, systolic heart failure, V. tach, cardiac arrest, anemia, CAD and HTN who presents to the emergency department from her dialysis center on 08/05 for severe muscle spasms secondary to AICD discharges per patient. She also had questionable seizures in the dialysis center. Patient was started on amiodarone and lidocaine. Patient was intubated for airway protection in the emergency department and work-up also revealed severe hypokalemia. Patient was admitted to the hospital service with consult cardiology, nephrology and [facility]. 08/06/2021: Patient is sedated, Transfer to [facility] arranged 08/07: COVID-19 PCR negative. Patient received hemodialysis today. Off Cardene drip. Patient has been OG tube for p.o. BP medications. Thrombocytopenia persists therefore anticoagulation is held. Patient is leukopenia also. We will continue to trend CBC. Persistent hypoglycemia and D10 drip increased to 30 ml/hr. negative Covid test relayed to [facility]. 08/08: 1 unit prbc today, will start TF today. Still awaiting [facility] bed. 08/09: awaiting transfer to [facility]. TF nearly at goal so anticipate stopping dextrose IVF soon. Midline to be placed 08/10/2021: Received HD today. BP remains elevated therefore started on cardene gtt. Cardiology aware. No beds available yet. 08/11/2021: Cardene gtt infusing, CT head ordered as per nurse patient is not really responding (withdraw/ grimace to pain when off sedation/PERRL/intact cough/gag on PE). 08/12: ANGELINE overnight. Remains on the vent and sedated. On Amio gtt, A-pacing on the monitor, still hypertensive on cardene gtt, home antihypertensive was restarted. Plan for HD this am, hypernatremia too be corrected per Nephro. 08/13: Plan for SAT and SBT this am for possible extubation. Patient remains hypertensive on cardene gtt, clonidine added. 08/14: Patient s/p reintubation by anesthesia. Awake and alert following commands, not on any sedation. Remains hypertensive on amio and cardene gtt. D/w cardio plan to switch to PO Amio and to adjust antihypertensive therapy, hopefully can wean off cardene gtt. Plan to possible transfer patient to [facility] as a way of getting patient into the [facility] system for the needed ablation. Case horacio de la cruz to arrange 08/15: ANGELINE overnight. Patient remains stable on the vent. Still with uncontrolled hypertension despite meds increased yesterday. Patient remains on cardene gt. Cardio added minoxidil, plan is still to wean off cardene gtt. Plan for HD today 08/16: Self-extubated and was reintubated overnight due to stridor. Now on low dose sedation, following commands. D/w CCM plan to do a cuff leak today and possible start patinet on IV steroids. Since this is X2 failed extubation patient might need to be Trached. Per Case management patient was denied for [facility], no HD beds available. Patient remains on [facility] transfer list for possible inpatient transfer. Assessment and Plan #Neuro:Sedated -Self-extubated and reintubated overnight, now on propofol -Titrate sedation for RASS 0 to -1 -AAO, following simple commands -Avoid benzodiazepine to reduce the possibility of delirium -PRN analgesia for CPOT greater than 3 -Maintenance of sleep-wake cycle #CV:Hypertension #VTach Storm, AICD is on -Presented muscle spasms 2/2 to AICD discharge -S/p amio gtt, now on PO amio -Patient is currently A-pacing on the monitor, HR 70 -BP improved this am, off cardene gtt -Cardiology consulted, appreciate recommendations -Continue antihypertensive therapy per Cardio, minoxidil added -Continue Blood pressure monitoring for SBP less than 160 -Continue ASA,plavix, and statin -On AC-Heparin Subq -Awaiting transfer to [facility] for possible VT Ablation #Respiratory:Acute Hypoxemic Respiratory Failure -Intubated in the ED on 08/05 -Extubated and reintubated on 08/14 -08/16 Self-extubated and reintubated due to stridor -Vent setting:A/C-30%,6,12,375 -This AM ABG pending -CCM consulted, appreciate recommendations -Plan for a cuff leak this am and possibly start patient on IV steroids -VAP bundle addressed -Aspiration precaution HOB above 30 -Daily SBT and SAT trials as tolerated -Daily ABG and CXR per CCM -Continue SPO2 monitoring for SPO2 goal above 92% #GI:TF -Continue enteral Nutritiom -Nutrition consult for tube feeding -Continue PPI -Continue BR: Senokot #: ESRD on HD #Hyponatremia #Hypokalemia-resolved -Presented with severe electrolytes imbalance -Nephrology consulted, appreciate recommendations -Continue HD per nephrology -HD yesterday -Strict intake and output -Daily weight -Avoid nephrotoxic medications; Renally dose medications -Monitor and replace electrolytes as needed #Heme:Acute on Chronic Anemia of chronic disease #Acute blood loss-resolved #Thrombocytopenia (resolved) -S/p 2 unit PRBC -No s/s of any active bleeding -Trend CBC -Transfuse for hemoglobin less than 7 -Epogen per nephrology -Continue AC- heparin subq -SCDs to bilateral LE while in bed #Endo:Glycemic Control #Hypoglycemia -Was initially hypoglycemic S/p D10 for hypoglycemia -Continue SSI Q6hrs while on TF -Avoid hypoglycemia -Continue Hypoglycemic Protocol Dispo: AWAITING TRANSFER TO [facility] since 08/06/2021 The high probability of a clinically significant sudden or life-threatening deterioration of the [Respiratory,Renal,CV] and endocrine system required my full and direct attention, intervention and postoperative management. The aggregate critical care time was [40] minutes. The time is in addition to time spent performing reported procedures but includes the following: [x] 1: Data review and interpretation [x] 2: Patient assessment and monitoring of vital signs [x] 3: Documentation [x] 4: Medication orders and management Disposition Plan: ICU Total Time Spent with Patient (Minutes): 60 History Interval history: Patient seen and examined at the bedside. Patient self-extubated overnight and was reintubated due to possible stridor. Now on low dse sedation, RASS 0 to -1, still following commands in no acute distress. Hospitalist Physical - Constitutional Vitals: Temp Pulse Resp BP Pulse Ox 98.0 F 70 24 155/55 99 08/16/21 07:46 08/16/21 08:00 08/16/21 06:01 08/16/21 08:00 08/16/21 08:00 General appearance: Present: no acute distress, other (Intubated and on sedation, RASS 0 to -1) - EENT Eyes: Present: PERRL ENT: hearing intact - Neck Neck: Present: normal ROM - Respiratory Respiratory effort: normal Respiratory: bilateral: diminished - Cardiovascular Rhythm: regular (Paced) Heart Sounds: Present: S1 & S2 - Extremities Extremities: no ischemia, pulses intact, pulses symmetrical Extremity abnormal: edema - Peripheral Assessment Generalized Edema Type: Non-pitting Edema Degree: 1+ Capillary Refill: < 3 seconds Skin Temperature: Warm Peripheral Pulses: within normal limits - Abdominal General gastrointestinal: soft, non-tender, normal bowel sounds - Integumentary Integumentary: Present: warm, dry - Psychiatric Psychiatric: appropriate mood/affect, cooperative, other (On sedation) - Neurologic Neurologic: moves all extremities, other (On sedation, RASS 0 to -1, following commands) HEART Score - HEART Score Age: 45-65 Risk factors: > 3 risk factors or hx of atherosclerotic disease Troponin: Troponin T 0.183 ng/mL (0.00-0.029) H* D 08/05/21 18:56 Troponin: 1-3x normal limit - Critical Actions Critical Actions: 4-6 pts:12-16.6% risk of adverse cardiac event. Should be admitted Results - Labs CBC & Chem 7: 08/16/21 04:00 08/16/21 04:00 Labs: Laboratory Last Values WBC 7.2 K/mm3 (4.5-11.0) 08/16/21 04:00 RBC 2.96 M/mm3 (3.65-5.03) L 08/16/21 04:00 Hgb 8.0 gm/dl (10.1-14.3) L 08/16/21 04:00 Hct 23.9 % (30.3-42.9) L 08/16/21 04:00 MCV 81 fl (79-97) 08/16/21 04:00 MCH 27 pg (28-32) L 08/16/21 04:00 MCHC 34 % (30-34) 08/16/21 04:00 RDW 18.6 % (13.2-15.2) H 08/16/21 04:00 Plt Count 281 K/mm3 (140-440) 08/16/21 04:00 Lymph % (Auto) Smash Piecer 08/07/21 04:00 Wilkin % (Auto) Smash Piecer 08/11/21 04:00 Eos % (Auto) 2.2 % (0.0-4.3) 08/06/21 16:35 Baso % (Auto) Smash Piecer 08/07/21 04:00 Lymph # (Auto) 0.8 K/mm3 (1.2-5.4) L 08/06/21 16:35 Wilkin # (Auto) 0.7 K/mm3 (0.0-0.8) 08/06/21 16:35 Eos # (Auto) 0.1 K/mm3 (0.0-0.4) 08/06/21 16:35 Baso # (Auto) 0.1 K/mm3 (0.0-0.1) 08/06/21 16:35 Add Manual Diff Complete 08/11/21 04:00 Total Counted 100 08/11/21 04:00 Seg Neutrophils % Smash Piecer 08/07/21 04:00 Seg Neuts % (Manual) 76.0 % (40.0-70.0) H 08/11/21 04:00 Band Neutrophils % 2.0 % 08/11/21 04:00 Lymphocytes % (Manual) 8.0 % (13.4-35.0) L 08/11/21 04:00 Reactive Lymphs % (Man) 5.0 % 08/07/21 04:00 Monocytes % (Manual) 13.0 % (0.0-7.3) H 08/11/21 04:00 Eosinophils % (Manual) 1.0 % (0.0-4.3) 08/10/21 04:00 Basophils % (Manual) 4.0 % (0.0-1.8) H 08/07/21 04:00 Metamyelocytes % 1.0 % 08/11/21 04:00 Nucleated RBC % Not Reportable 08/11/21 04:00 Seg Neutrophils # 2.6 K/mm3 (1.8-7.7) 08/06/21 16:35 Seg Neutrophils # Man 5.2 K/mm3 (1.8-7.7) 08/11/21 04:00 Band Neutrophils # 0.1 K/mm3 08/11/21 04:00 Lymphocytes # (Manual) 0.6 K/mm3 (1.2-5.4) L 08/11/21 04:00 Abs React Lymphs (Man) 0.0 K/mm3 08/11/21 04:00 Monocytes # (Manual) 0.9 K/mm3 (0.0-0.8) H 08/11/21 04:00 Eosinophils # (Manual) 0.0 K/mm3 (0.0-0.4) 08/11/21 04:00 Basophils # (Manual) 0.0 K/mm3 (0.0-0.1) 08/11/21 04:00 Metamyelocytes # 0.1 K/mm3 08/11/21 04:00 Myelocytes # 0.0 K/mm3 08/11/21 04:00 Promyelocytes # 0.0 K/mm3 08/11/21 04:00 Blast Cells # 0.0 K/mm3 08/11/21 04:00 WBC Morphology Not Reportable 08/11/21 04:00 WBC Morphology TNR 08/11/21 04:00 Hypersegmented Neuts Not Reportable 08/11/21 04:00 Hyposegmented Neuts Not Reportable 08/11/21 04:00 Hypogranular Neuts Not Reportable 08/11/21 04:00 Smudge Cells Not Reportable 08/11/21 04:00 Toxic Granulation Not Reportable 08/11/21 04:00 Toxic Vacuolation Not Reportable 08/11/21 04:00 Dohle Bodies Not Reportable 08/11/21 04:00 Pelger-Huet Anomaly Not Reportable 08/11/21 04:00 Claudio Rods Not Reportable 08/11/21 04:00 Platelet Estimate Consistent w auto 08/11/21 04:00 Clumped Platelets Not Reportable 08/11/21 04:00 Plt Clumps, EDTA Not Reportable 08/11/21 04:00 Large Platelets Not Reportable 08/11/21 04:00 Giant Platelets Not Reportable 08/11/21 04:00 Platelet Satelliting Not Reportable 08/11/21 04:00 Plt Morphology Comment Not Reportable 08/11/21 04:00 RBC Morphology Not Reportable 08/11/21 04:00 Dimorphic RBCs Not Reportable 08/11/21 04:00 Polychromasia Not Reportable 08/11/21 04:00 Hypochromasia Few 08/11/21 04:00 Poikilocytosis Not Reportable 08/11/21 04:00 Anisocytosis Not Reportable 08/11/21 04:00 Microcytosis Not Reportable 08/11/21 04:00 Macrocytosis Not Reportable 08/11/21 04:00 Spherocytes Not Reportable 08/11/21 04:00 Pappenheimer Bodies Not Reportable 08/11/21 04:00 Sickle Cells Not Reportable 08/11/21 04:00 Target Cells Few 08/11/21 04:00 Tear Drop Cells Not Reportable 08/11/21 04:00 Ovalocytes Not Reportable 08/11/21 04:00 Helmet Cells Not Reportable 08/11/21 04:00 [place] Bodies Not Reportable 08/11/21 04:00 [place] Rings Not Reportable 08/11/21 04:00 Case Cells Not Reportable 08/11/21 04:00 Bite Cells Not Reportable 08/11/21 04:00 Crenated Cell Not Reportable 08/11/21 04:00 Elliptocytes Not Reportable 08/11/21 04:00 Acanthocytes (Spur) Not Reportable 08/11/21 04:00 Rouleaux Not Reportable 08/11/21 04:00 Hemoglobin C Crystals Not Reportable 08/11/21 04:00 Schistocytes Not Reportable 08/11/21 04:00 Malaria parasites Not Reportable 08/11/21 04:00 Aleks Bodies Not Reportable 08/11/21 04:00 Hem Pathologist Commnt No 08/11/21 04:00 PT 14.2 Sec. (12.2-14.9) 08/06/21 16:35 INR 0.99 (0.87-1.13) 08/06/21 16:35 APTT 37.1 Sec. (24.2-36.6) H 08/06/21 07:26 ABG pH 7.496 (7.320-7.450) H 08/15/21 05:22 POC ABG pCO2 29.8 mmHg (32.0-48.0) L 08/15/21 05:22 ABG pCO2 41.2 mm Hg 08/09/21 04:30 POC ABG pO2 98.4 mmHg (83-108) 08/15/21 05:22 ABG pO2 91.5 mm Hg (80.0-90.0) H 08/09/21 04:30 POC ABG HCO3 22.5 08/15/21 05: ABG HCO3 26.6 mmol/L (20.0-26.0) H 08/09/21 04:30 ABG O2 Saturation 98.1 (0-100) 08/15/21 05:22 ABG O2 Content 12.3 (0.0-44) 08/09/21 04:30 POC ABG Base Excess -0.5 08/15/21 05:22 ABG Base Excess 2.0 mmol/L (-2.0-3.0) 08/09/21 04:30 ABG Hemoglobin 7.4 (12.0-17.5) L 08/15/21 05:22 ABG Oxyhemoglobin 96.9 (94-98) 08/15/21 05:22 ABG Carboxyhemoglobin 1.4 % (0.0-5.0) 08/09/21 04:30 ABG Methemoglobin 0 (0.0-1.5) 08/15/21 05:22 ABG Sodium 124.3 mmol/L (136.0-145.0) L 08/15/21 05:22 ABG Potassium 3.5 mmol/L (3.40-4.50) 08/15/21 05:22 ABG Chloride 92.0 mmol/L (98-107) L 08/15/21 05:22 ABG Glucose 85 mg/dL (65-95) 08/15/21 05:22 Oxyhemoglobin 95.4 % (95.0-99.0) 08/09/21 04:30 Carboxyhemoglobin 1.2 (0.5-1.5) 08/15/21 05:22 FiO2 25 % 08/09/21 04:30 FiO2 % 30.0 08/15/21 05:22 Sodium 132 mmol/L (137-145) L 08/16/21 04:00 Potassium 3.8 mmol/L (3.6-5.0) 08/16/21 04:00 Chloride 93.1 mmol/L (98-107) L 08/16/21 04:00 Carbon Dioxide 24 mmol/L (22-30) 08/16/21 04:00 Anion Gap 19 mmol/L 08/16/21 04:00 BUN 26 mg/dL (7-17) H 08/16/21 04:00 Creatinine 3.9 mg/dL (0.6-1.2) H 08/16/21 04:00 Estimated GFR 14 ml/min 08/16/21 04:00 BUN/Creatinine Ratio 7 % 08/16/21 04:00 Glucose 119 mg/dL (65-100) H 08/16/21 04:00 POC Glucose 112 mg/dL (70-105) H 08/16/21 10:57 Calcium 8.7 mg/dL (8.4-10.2) 08/16/21 04:00 Phosphorus 2.90 mg/dL (2.5-4.5) D 08/16/21 04:00 Magnesium 1.90 mg/dL (1.7-2.3) 08/16/21 04:00 Total Bilirubin 0.70 mg/dL (0.1-1.2) 08/06/21 16:35 AST 18 units/L (5-40) 08/06/21 16:35 ALT 7 units/L (7-56) 08/06/21 16:35 Alkaline Phosphatase 102 units/L (35-129) 08/06/21 16:35 Troponin T 0.183 ng/mL (0.00-0.029) H* D 08/05/21 18:56 Total Protein 6.2 g/dL (6.3-8.2) L 08/06/21 16:35 Albumin 3.2 g/dL (3.9-5) L 08/06/21 16:35 Albumin/Globulin Ratio 1.1 % 08/06/21 16:35 Triglycerides 399 mg/dL (2-149) H 08/13/21 Unknown Cholesterol 170 mg/dL (50-199) 08/05/21 15:55 LDL Cholesterol Direct 106 mg/dL (50-130) 08/05/21 15:55 HDL Cholesterol 32 mg/dL (40-59) L 08/05/21 15:55 Cholesterol/HDL Ratio 5.31 % 08/05/21 15:55 TSH 7.070 mlU/mL (0.270-4.200) H 08/07/21 13:30 Arterial Blood Glucose 85 mg/dL (65-95) 08/15/21 05:22 Arterial Blood Ionized Calcium 4.8 mg/dL (4.6-5.3) 08/15/21 05:22 Coronavirus (PCR) Negative (Negative) 08/07/21 Unknown Hepatitis A IgM Ab Non-reactive (NonReactive) 08/08/21 04:26 Hep Bs Antigen Nonreactive (Negative) 08/08/21 04:26 Hep B Core IgM Ab Non-reactive (NonReactive) 08/08/21 04:26 Hepatitis C Antibody Non-reactive (NonReactive) 08/08/21 04:26 Blood Type O POSITIVE 08/06/21 05:30 Antibody Screen Negative 08/06/21 05:30 Crossmatch See Detail 08/06/21 05:30 Active Medications - Current Medications Current Medications: Generic Name Dose Route Start Last Admin Trade Name Freq PRN Reason Stop Dose Admin Acetaminophen 650 mg 08/06/21 16:30 08/06/21 16:30 Acetaminophen 650 Mg Rect Supp PA 650 mg Q6H PRN Administration Pain, Mild (1-3) Albuterol 2.5 mg 08/05/21 20:59 Albuterol 2.5 Mg/3 Ml Nebu IH Q4HRT PRN Shortness Of Breath Amiodarone HCl 400 mg 08/14/21 11:00 08/15/21 22:23 Amiodarone 200 Mg Tab PO 400 mg BID JODI Administration Lipase/Protease/Amylase 1 each 08/07/21 09:47 Lipase 10,500/Protease 25,000/Amylase 43,750 (Units) Dr Thomas FEEDTUBE PRN PRN For Clogged Feeding Tube Aspirin 81 mg 08/07/21 10:00 08/15/21 09:12 Aspirin 81 Mg Tab Chew PO 81 mg QDAY JODI Administration Atorvastatin Calcium 80 mg 08/05/21 22:00 08/15/21 22:21 Atorvastatin 40 Mg Tab PO 80 mg QHS JODI Administration Clonidine HCl 0.3 mg 08/15/21 14:00 08/16/21 05:15 Clonidine 0.1 Mg Tab PO 0.3 mg Q8HR JODI Administration Clopidogrel Bisulfate 75 mg 08/10/21 10:00 08/15/21 09:11 Clopidogrel 75 Mg Tab PO 75 mg QDAY JODI Administration Dextrose 25 ml 08/06/21 15:08 08/09/21 05:26 Dextrose 50% In Water (25gm) 50 Ml Syringe IV 15 ml Q30MIN PRN Administration Hypoglycemia Protocol Famotidine 10 mg 08/09/21 22:00 08/15/21 22:29 Famotidine 10 Mg Tab PO Not Given BID JODI Fentanyl 50 mcg 08/05/21 17:25 08/10/21 10:06 Fentanyl 100 Mcg/2 Ml Inj IV 50 mcg Q10MIN PRN Administration ANALGESIA Heparin Sodium (Porcine) 5,000 unit 08/11/21 10:00 08/15/21 22:21 Heparin 5,000 Unit/1 Ml Vial SUB-Q 5,000 unit Q12HR JODI Administration Hydralazine HCl 10 mg 08/06/21 04:21 08/15/21 07:53 Hydralazine 20 Mg/1 Ml Inj IV 10 mg Q6HR PRN Administration Hypertension Hydralazine HCl 100 mg 08/14/21 10:00 08/16/21 05:16 Hydralazine 100 Mg Tab PO 100 mg Q8HR JODI Administration Hydrophilic Ointment 1 applic 08/05/21 17:25 Lip Therapy Vaseline TP Q2HR PRN Dry Lips Fentanyl Citrate 2,000 mcg in 100 mls @ 3.213 mls/hr 08/05/21 18:00 08/10/21 19:10 Fentanyl Drip Premix IV 0 mcg/kg/hr TITR JODI 0 mls/hr Titration Protocol 1 MCG/KG/HR Propofol 1,000 mg in 100 mls @ 1.928 mls/hr 08/06/21 17:00 08/16/21 07:05 Diprivan 10 Mg/Ml IV 10 mcg/kg/min TITR JODI 3.855 mls/hr Titration Protocol 5 MCG/KG/MIN Nicardipine HCl 50 mg/ Sodium 250 mls @ 25 mls/hr 08/10/21 16:00 08/16/21 07:05 Chloride IV 0 mg/hr TITR JODI 0 mls/hr Titration Protocol 5 MG/HR Sodium Chloride 100 mls @ 999 mls/hr 08/14/21 17:06 Nacl 0.9% IV GLENDY PRN Hypotension Isosorbide Dinitrate 20 mg 08/11/21 14:00 08/16/21 05:15 Isosorbide Dinitrate 20 Mg Tab PO 20 mg Q8HR JODI Administration Losartan Potassium 100 mg 08/12/21 10:00 08/15/21 09:11 Losartan 25 Mg Tab PO 100 mg DAILY JODI Administration Metoclopramide HCl 5 mg 08/05/21 21:03 Metoclopramide 10 Mg/2 Ml Inj IV Q6H PRN Nausea And Vomiting Metoprolol Tartrate 100 mg 08/12/21 12:00 08/15/21 22:27 Metoprolol Tartrate 50 Mg Tab PO 100 mg BID JODI Administration Minoxidil 5 mg 08/15/21 10:00 08/15/21 22:22 Minoxidil 2.5 Mg Tab PO 5 mg BID JODI Administration Multi-Ingred Cream/Lotion/Oil/Oint 1 applic 08/05/21 17:25 Mineral Oil/Petrolatum, White Ophth Oint 3.5 Gm OU Q4HR PRN Dry Eye(s) Ondansetron HCl 4 mg 08/05/21 21:03 Ondansetron 4 Mg/2 Ml Inj IV Q8H PRN Nausea And Vomiting Oxycodone/Acetaminophen 1 tab 08/05/21 21:03 Oxycodone /Acetaminophen 5-325mg Tab PO Q6H PRN Pain, Moderate (4-6) Senna 8.8 mg 08/07/21 13:00 08/15/21 22:22 Sennosides Oral Liqd 8.8 Mg/5 Ml Oral Liqd FEEDTUBE Not Given BID JODI Simple Syrup 15 ml 08/07/21 09:47 Simple Syrup 15 Ml FEEDTUBE PRN PRN Hypoglycemia Simple Syrup 30 ml 08/07/21 09:47 Simple Syrup 15 Ml FEEDTUBE PRN PRN Hypoglycemia Sodium Bicarbonate 325 mg 08/07/21 09:47 Sodium Bicarbonate 325 Mg Tab FEEDTUBE PRN PRN For Clogged Feeding Tube Sodium Chloride 10 ml 08/05/21 22:00 08/15/21 22:29 Sodium Chloride 0.9% 10 Ml Flush Syringe IV 10 ml BID JODI Administration Sodium Chloride 10 ml 08/05/21 21:03 Sodium Chloride 0.9% 10 Ml Flush Syringe IV PRN PRN LINE FLUSH Nutrition/Malnutrition Assess - Dietary Evaluation Nutrition/Malnutrition Findings: Nutrition Notes Start: 08/07/21 09:12 Freq: Status: Active Protocol: Document 08/09/21 18:21 KALA (Rec: 08/09/21 18:25 KALA [id number]) Nutrition Notes Initial or Follow up Brief Note Current Diet TF-Nepro w/CARBSTEADY @ 32 ml/ hr (since L 08/07). Weight change and time frame No body weight change reported . Weight Status Overweight Subjective/Other Information RD consult for routine F/U on TF tolerance. TF continues without changes. Percent of energy/protein needs met: Prescribed Nepro w/CARBSTEADY @ 32 ml/hr will provide for energy/protein needs (1,403 Kcal/63 g) 100% Kcal; 82% AA, during LOS. #1 Nutrition Diagnosis Inadequate oral intake Diagnosis Progress(for reassessment Continues documentation) Nutrition Intervention Nutrition Support: Continue Nepro w/CARBSTEADY @ 32 ml/hr. Flush: 140 ml water Q 4 hr. Goal #1 Provide at least 75% of energy /protein needs through Enteral Feeding during LOS. Follow-Up By: 08/16/21 Additional Comments Continue monitoring TF tolerance, and BM.
--- NOTE | 2021-08-16 11:29 | Progress Note ---
Assessment and Plan 60 y/o female with known VT in the past, systolic heart failure with BIV AICD admitted with recurrent VT and electrolyte abnormality 08/16/21: Still no beds at [facility]. Will do a leak test this afternoon. If no leak, then will start IV steroid therapy. Patient was only intubated for airway protection to help with catecholamine storm associated with VT storm. No prior lung disease. The multiple intubation may have caused some scarring in the trachea but right now this is not known. Continue supportive measures but may end up needing trach. 08/15/21: Will discuss with CM if any further news on LTACH acceptance. Attempt PSV trials today. BP still elevated and still on Cardene despite increase in med therapy. Will discuss with cards, and renal, and pharm on rounds. 08/14/21: Given no ICU beds at [facility], will attempt to transfer to [facility] with hopes that patient can get ablation and then be transferred back over for f urther vent weaning. Not sure exactly why she failed yesterday but transfer to [facility] makes most sense in the event she will be a [facility] wean. Agree with [facility] increasing therapy for HTN. Will attempt to wean Cardene 08/13/21: Will start Clonidine 0.1 TID given her persistent need for Cardene d rip. Will extubate today and transfer to tele floor. Hoping this will help the patient get a bed faster at [facility]. Rate control per cards. 08/12/21: Will discontinue cardene while on HD as goal is to pull 3 liters. Will speak with [facility] and ask them to call [facility] to see if they have a time frame. Continue supportive measures. Remains on Amio Drip. 08/08/21: Continue supportive measures. Follow up any new cardiac recs. 08/07/21: Await transfer to [facility], continue supportive measures Follow up cards recs most likely needs ablation at [facility] Continue amio drip per cards CCt 31 minutes. Subjective Date of service: 08/16/21 Principal diagnosis: Recurrent VT Interval history: Self Extubated but then had to be re-intubated secondary to stridor. Objective Vital Signs - 12hr 08/15/21 08/15/21 08/16/21 23:30 23:47 00:00 Temperature 99.8 F H Pulse Rate 70 70 Pulse Rate [ 70 From Monitor] Respiratory 18 15 Rate Blood Pressure O2 Sat by Pulse 100 100 Oximetry 08/16/21 08/16/21 08/16/21 00:10 00:31 01:01 Temperature Pulse Rate 70 70 70 Pulse Rate [ From Monitor] Respiratory 14 13 Rate Blood Pressure 146/45 O2 Sat by Pulse 96 99 99 Oximetry 08/16/21 08/16/21 08/16/21 01:31 02:01 02:31 Temperature Pulse Rate 70 70 70 Pulse Rate [ From Monitor] Respiratory 13 18 20 Rate Blood Pressure O2 Sat by Pulse 99 98 99 Oximetry 08/16/21 08/16/21 08/16/21 03:01 03:31 04:00 Temperature 100.6 F H Pulse Rate 70 70 70 Pulse Rate [ 70 From Monitor] Respiratory 14 13 16 Rate Blood Pressure 178/65 O2 Sat by Pulse 95 100 96 Oximetry 08/16/21 08/16/21 08/16/21 04:31 05:01 05:15 Temperature Pulse Rate 70 70 70 Pulse Rate [ From Monitor] Respiratory 13 17 Rate Blood Pressure 155/55 O2 Sat by Pulse 100 Oximetry 08/16/21 08/16/21 08/16/21 05:31 06:01 06:20 Temperature Pulse Rate 70 70 Pulse Rate [ From Monitor] Respiratory 12 24 Rate Blood Pressure O2 Sat by Pulse 100 100 100 Oximetry 08/16/21 08/16/21 07:46 08:00 Temperature 98.0 F Pulse Rate 70 Pulse Rate [ From Monitor] Respiratory Rate Blood Pressure 155/55 O2 Sat by Pulse 99 Oximetry Constitutional: other (intubated and sedated) Eyes: non-icteric ENT: other (orally intubated) Neck: supple Effort: normal Ascultation: Bilateral: clear Percussion: Bilateral: not dull Cardiovascular: regular rate and rhythm (no mrg) Gastrointestinal: normoactive bowel sounds, soft, non-tender, non-distended Integumentary: normal Extremities: no cyanosis, no edema, pink and warm Neurologic: unable to assess Psychiatric: other (unable to assess) CBC and BMP: 08/16/21 04:00 08/16/21 04:00 ABG, PT/INR, D-dimer: ABG ABG pH 7.496 (7.320-7.450) H 08/15/21 05:22 POC ABG pCO2 29.8 mmHg (32.0-48.0) L 08/15/21 05:22 ABG pCO2 41.2 mm Hg 08/09/21 04:30 POC ABG pO2 98.4 mmHg (83-108) 08/15/21 05:22 ABG pO2 91.5 mm Hg (80.0-90.0) H 08/09/21 04:30 POC ABG HCO3 22.5 08/15/21 05:22 ABG O2 Saturation 98.1 (0-100) 08/15/21 05:22 PT/INR, D-dimer PT 14.2 Sec. (12.2-14.9) 08/06/21 16:35 INR 0.99 (0.87-1.13) 08/06/21 16:35 Abnormal lab findings: Abnormal Labs 08/05/21 08/05/21 08/05/21 15:55 15:55 18:50 WBC 3.7 L RBC 2.98 L Hgb 7.5 L Hct 23.8 L MCH 25 L RDW 18.9 H Plt Count 134 L Lymph % (Auto) [place] % (Auto) Lymph # (Auto) Seg Neutrophils % Seg Neuts % (Manual) Lymphocytes % (Manual) Monocytes % (Manual) 18.0 H Eosinophils % (Manual) Basophils % (Manual) 2.0 H Seg Neutrophils # Seg Neutrophils # Man Lymphocytes # (Manual) 0.9 L Monocytes # (Manual) APTT ABG pH 7.523 H POC ABG pCO2 POC ABG pO2 ABG pO2 47.1 L ABG HCO3 34.6 H ABG O2 Saturation 85.4 L ABG Base Excess 10.8 H ABG Hemoglobin 7.3 L ABG Oxyhemoglobin ABG Sodium ABG Potassium ABG Chloride ABG Glucose Oxyhemoglobin 83.6 L Carboxyhemoglobin Sodium Potassium 2.7 L* Chloride 93.8 L Carbon Dioxide 33 H BUN Creatinine 2.8 H Glucose 124 H POC Glucose Calcium 8.2 L Phosphorus ALT < 5 L Troponin T 0.126 H* Total Protein Albumin 3.5 L Triglycerides 202 H HDL Cholesterol 32 L TSH Arterial Blood Glucose Crossmatch 08/05/21 08/05/21 08/06/21 18:56 Unknown 04:20 WBC RBC Hgb Hct MCH RDW Plt Count Lymph % (Auto) [place] % (Auto) Lymph # (Auto) Seg Neutrophils % Seg Neuts % (Manual) Lymphocytes % (Manual) Monocytes % (Manual) Eosinophils % (Manual) Basophils % (Manual) Seg Neutrophils # Seg Neutrophils # Man Lymphocytes # (Manual) Monocytes # (Manual) APTT ABG pH 7.575 H 7.606 H* POC ABG pCO2 POC ABG pO2 ABG pO2 142.9 H 111.2 H ABG HCO3 33.2 H 33.6 H ABG O2 Saturation ABG Base Excess 10.4 H 11.2 H ABG Hemoglobin 6.6 L 6.8 L ABG Oxyhemoglobin ABG Sodium ABG Potassium ABG Chloride ABG Glucose Oxyhemoglobin Carboxyhemoglobin Sodium Potassium Chloride Carbon Dioxide BUN Creatinine Glucose POC Glucose Calcium Phosphorus ALT Troponin T 0.183 H* D Total Protein Albumin Triglycerides HDL Cholesterol TSH Arterial Blood Glucose Crossmatch 08/06/21 08/06/21 08/06/21 04:29 04:29 04:29 WBC 2.5 L RBC 2.70 L Hgb 6.8 L Hct 21.3 L MCH 25 L RDW 18.1 H Plt Count 126 L Lymph % (Auto) 45.0 H [place] % (Auto) 13.6 H Lymph # (Auto) 1.1 L Seg Neutrophils % 37.3 L Seg Neuts % (Manual) Lymphocytes % (Manual) Monocytes % (Manual) Eosinophils % (Manual) Basophils % (Manual) Seg Neutrophils # 0.9 L Seg Neutrophils # Man Lymphocytes # (Manual) Monocytes # (Manual) APTT 38.8 H ABG pH POC ABG pCO2 POC ABG pO2 ABG pO2 ABG HCO3 ABG O2 Saturation ABG Base Excess ABG Hemoglobin ABG Oxyhemoglobin ABG Sodium ABG Potassium ABG Chloride ABG Glucose Oxyhemoglobin Carboxyhemoglobin Sodium 136 L Potassium 3.0 L Chloride 92.6 L Carbon Dioxide 32 H BUN Creatinine 3.8 H Glucose POC Glucose Calcium Phosphorus ALT Troponin T Total Protein 5.8 L Albumin 3.1 L Triglycerides HDL Cholesterol TSH Arterial Blood Glucose Crossmatch 08/06/21 08/06/21 08/06/21 05:30 07:26 07:26 WBC RBC Hgb 7.0 L Hct 22.5 L MCH RDW Plt Count 127 L Lymph % (Auto) [place] % (Auto) Lymph # (Auto) Seg Neutrophils % Seg Neuts % (Manual) Lymphocytes % (Manual) Monocytes % (Manual) Eosinophils % (Manual) Basophils % (Manual) Seg Neutrophils # Seg Neutrophils # Man Lymphocytes # (Manual) Monocytes # (Manual) APTT 37.1 H ABG pH POC ABG pCO2 POC ABG pO2 ABG pO2 ABG HCO3 ABG O2 Saturation ABG Base Excess ABG Hemoglobin ABG Oxyhemoglobin ABG Sodium ABG Potassium ABG Chloride ABG Glucose Oxyhemoglobin Carboxyhemoglobin Sodium Potassium Chloride Carbon Dioxide BUN Creatinine Glucose POC Glucose Calcium Phosphorus ALT Troponin T Total Protein Albumin Triglycerides HDL Cholesterol TSH Arterial Blood Glucose Crossmatch See Detail 08/06/21 08/06/21 08/06/21 08:06 14:50 16:03 WBC RBC Hgb Hct MCH RDW Plt Count Lymph % (Auto) [place] % (Auto) Lymph # (Auto) Seg Neutrophils % Seg Neuts % (Manual) Lymphocytes % (Manual) Monocytes % (Manual) Eosinophils % (Manual) Basophils % (Manual) Seg Neutrophils # Seg Neutrophils # Man Lymphocytes # (Manual) Monocytes # (Manual) APTT ABG pH POC ABG pCO2 POC ABG pO2 ABG pO2 ABG HCO3 ABG O2 Saturation ABG Base Excess ABG Hemoglobin ABG Oxyhemoglobin ABG Sodium ABG Potassium ABG Chloride ABG Glucose Oxyhemoglobin Carboxyhemoglobin Sodium Potassium 3.1 L Chloride 92.4 L Carbon Dioxide 33 H BUN Creatinine 3.9 H Glucose POC Glucose 59 L 121 H Calcium Phosphorus ALT Troponin T Total Protein Albumin Triglycerides HDL Cholesterol TSH Arterial Blood Glucose Crossmatch 08/06/21 08/06/21 08/06/21 16:35 16:35 17:31 WBC 4.2 L RBC 3.27 L Hgb 8.5 L Hct 26.8 L MCH 26 L RDW 18.7 H Plt Count 124 L Lymph % (Auto) [place] % (Auto) 15.5 H Lymph # (Auto) 0.8 L Seg Neutrophils % Seg Neuts % (Manual) Lymphocytes % (Manual) Monocytes % (Manual) Eosinophils % (Manual) Basophils % (Manual) Seg Neutrophils # Seg Neutrophils # Man Lymphocytes # (Manual) Monocytes # (Manual) APTT ABG pH POC ABG pCO2 POC ABG pO2 ABG pO2 ABG HCO3 ABG O2 Saturation ABG Base Excess ABG Hemoglobin ABG Oxyhemoglobin ABG Sodium ABG Potassium ABG Chloride ABG Glucose Oxyhemoglobin Carboxyhemoglobin Sodium 133 L Potassium Chloride 93.2 L Carbon Dioxide BUN 21 H Creatinine 4.6 H Glucose POC Glucose 62 L Calcium 8.3 L Phosphorus ALT Troponin T Total Protein 6.2 L Albumin 3.2 L Triglycerides HDL Cholesterol TSH Arterial Blood Glucose Crossmatch 08/06/21 08/06/21 08/07/21 18:14 18:22 04:00 WBC 1.0 L* RBC 2.67 L Hgb 7.0 L Hct 21.8 L MCH 26 L RDW 18.7 H Plt Count 82 L Lymph % (Auto) [place] % (Auto) Lymph # (Auto) Seg Neutrophils % Seg Neuts % (Manual) 16.0 L Lymphocytes % (Manual) 60.0 H Monocytes % (Manual) Eosinophils % (Manual) 11.0 H Basophils % (Manual) 4.0 H Seg Neutrophils # Seg Neutrophils # Man 0.2 L Lymphocytes # (Manual) 0.6 L Monocytes # (Manual) APTT ABG pH 7.565 H POC ABG pCO2 POC ABG pO2 ABG pO2 113.3 H ABG HCO3 29.4 H ABG O2 Saturation ABG Base Excess 6.9 H ABG Hemoglobin 8.3 L ABG Oxyhemoglobin ABG Sodium ABG Potassium ABG Chloride ABG Glucose Oxyhemoglobin Carboxyhemoglobin Sodium Potassium Chloride Carbon Dioxide BUN Creatinine Glucose POC Glucose 148 H Calcium Phosphorus ALT Troponin T Total Protein Albumin Triglycerides HDL Cholesterol TSH Arterial Blood Glucose Crossmatch 08/07/21 08/07/21 08/07/21 04:00 04:25 08:30 WBC RBC Hgb Hct MCH RDW Plt Count Lymph % (Auto) [place] % (Auto) Lymph # (Auto) Seg Neutrophils % Seg Neuts % (Manual) Lymphocytes % (Manual) Monocytes % (Manual) Eosinophils % (Manual) Basophils % (Manual) Seg Neutrophils # Seg Neutrophils # Man Lymphocytes # (Manual) Monocytes # (Manual) APTT ABG pH 7.609 H* 7.479 H POC ABG pCO2 POC ABG pO2 ABG pO2 121.4 H 130.2 H ABG HCO3 28.5 H 30.3 H ABG O2 Saturation ABG Base Excess 7.2 H 6.2 H ABG Hemoglobin 10.7 L 8.1 L ABG Oxyhemoglobin ABG Sodium ABG Potassium ABG Chloride ABG Glucose Oxyhemoglobin Carboxyhemoglobin Sodium 133 L Potassium 3.2 L D Chloride 93.9 L Carbon Dioxide BUN 23 H Creatinine 4.3 H Glucose POC Glucose Calcium 8.1 L Phosphorus ALT Troponin T Total Protein Albumin Triglycerides HDL Cholesterol TSH Arterial Blood Glucose Crossmatch 08/07/21 08/07/21 08/07/21 13:18 13:30 15:51 WBC RBC Hgb Hct MCH RDW Plt Count Lymph % (Auto) [place] % (Auto) Lymph # (Auto) Seg Neutrophils % Seg Neuts % (Manual) Lymphocytes % (Manual) Monocytes % (Manual) Eosinophils % (Manual) Basophils % (Manual) Seg Neutrophils # Seg Neutrophils # Man Lymphocytes # (Manual) Monocytes # (Manual) APTT ABG pH POC ABG pCO2 POC ABG pO2 ABG pO2 ABG HCO3 ABG O2 Saturation ABG Base Excess ABG Hemoglobin ABG Oxyhemoglobin ABG Sodium ABG Potassium ABG Chloride ABG Glucose Oxyhemoglobin Carboxyhemoglobin Sodium Potassium Chloride Carbon Dioxide BUN Creatinine Glucose POC Glucose 67 L 58 L Calcium Phosphorus ALT Troponin T Total Protein Albumin Triglycerides HDL Cholesterol TSH 7.070 H Arterial Blood Glucose Crossmatch 08/08/21 08/08/21 08/08/21 04:19 04:26 04:26 WBC RBC Hgb 6.8 L Hct 21.6 L MCH RDW Plt Count 91 L Lymph % (Auto) [place] % (Auto) Lymph # (Auto) Seg Neutrophils % Seg Neuts % (Manual) Lymphocytes % (Manual) Monocytes % (Manual) Eosinophils % (Manual) Basophils % (Manual) Seg Neutrophils # Seg Neutrophils # Man Lymphocytes # (Manual) Monocytes # (Manual) APTT ABG pH 7.545 H POC ABG pCO2 POC ABG pO2 ABG pO2 136.1 H ABG HCO3 27.3 H ABG O2 Saturation ABG Base Excess 4.5 H ABG Hemoglobin 6.9 L ABG Oxyhemoglobin ABG Sodium ABG Potassium ABG Chloride ABG Glucose Oxyhemoglobin Carboxyhemoglobin Sodium 132 L Potassium Chloride 93.5 L Carbon Dioxide BUN Creatinine 3.7 H Glucose POC Glucose Calcium Phosphorus ALT Troponin T Total Protein Albumin Triglycerides HDL Cholesterol TSH Arterial Blood Glucose Crossmatch 08/08/21 08/08/21 08/08/21 09:45 12:23 18:51 WBC RBC Hgb Hct MCH RDW Plt Count Lymph % (Auto) [place] % (Auto) Lymph # (Auto) Seg Neutrophils % Seg Neuts % (Manual) Lymphocytes % (Manual) Monocytes % (Manual) Eosinophils % (Manual) Basophils % (Manual) Seg Neutrophils # Seg Neutrophils # Man Lymphocytes # (Manual) Monocytes # (Manual) APTT ABG pH 7.471 H POC ABG pCO2 POC ABG pO2 71.1 L ABG pO2 ABG HCO3 ABG O2 Saturation ABG Base Excess ABG Hemoglobin ABG Oxyhemoglobin ABG Sodium 128.9 L ABG Potassium ABG Chloride 95.0 L ABG Glucose 64 L Oxyhemoglobin Carboxyhemoglobin Sodium Potassium Chloride Carbon Dioxide BUN Creatinine Glucose POC Glucose 58 L 68 L Calcium Phosphorus ALT Troponin T Total Protein Albumin Triglycerides HDL Cholesterol TSH Arterial Blood Glucose 64 L Crossmatch 08/09/21 08/09/21 08/09/21 04:30 04:33 04:33 WBC 2.4 L RBC 3.16 L Hgb 8.3 L Hct 26.5 L MCH 26 L RDW 18.3 H Plt Count 113 L Lymph % (Auto) [place] % (Auto) Lymph # (Auto) Seg Neutrophils % Seg Neuts % (Manual) Lymphocytes % (Manual) Monocytes % (Manual) Eosinophils % (Manual) Basophils % (Manual) Seg Neutrophils # Seg Neutrophils # Man Lymphocytes # (Manual) Monocytes # (Manual) APTT ABG pH POC ABG pCO2 POC ABG pO2 ABG pO2 91.5 H ABG HCO3 26.6 H ABG O2 Saturation ABG Base Excess ABG Hemoglobin 9.0 L ABG Oxyhemoglobin ABG Sodium ABG Potassium ABG Chloride ABG Glucose Oxyhemoglobin Carboxyhemoglobin Sodium 129 L Potassium Chloride 91.9 L Carbon Dioxide BUN 22 H Creatinine 4.7 H Glucose POC Glucose Calcium Phosphorus ALT Troponin T Total Protein Albumin Triglycerides HDL Cholesterol TSH Arterial Blood Glucose Crossmatch 08/10/21 08/10/21 08/10/21 04:00 04:00 04:55 WBC 3.3 L RBC 3.32 L Hgb 8.9 L Hct 27.6 L MCH 27 L RDW 18.3 H Plt Count Lymph % (Auto) [place] % (Auto) Lymph # (Auto) Seg Neutrophils % Seg Neuts % (Manual) Lymphocytes % (Manual) Monocytes % (Manual) 9.0 H Eosinophils % (Manual) Basophils % (Manual) Seg Neutrophils # Seg Neutrophils # Man Lymphocytes # (Manual) 0.6 L Monocytes # (Manual) APTT ABG pH POC ABG pCO2 POC ABG pO2 ABG pO2 ABG HCO3 ABG O2 Saturation ABG Base Excess ABG Hemoglobin 9.6 L ABG Oxyhemoglobin ABG Sodium 120.3 L ABG Potassium 5.2 H ABG Chloride 88.0 L ABG Glucose Oxyhemoglobin Carboxyhemoglobin 0.4 L Sodium 123 L Potassium 5.5 H D Chloride 84.8 L Carbon Dioxide BUN 30 H Creatinine 5.5 H Glucose 139 H POC Glucose Calcium Phosphorus 5.90 H ALT Troponin T Total Protein Albumin Triglycerides HDL Cholesterol TSH Arterial Blood Glucose Crossmatch 08/10/21 08/11/21 08/11/21 12:17 04:00 05:53 WBC RBC 3.50 L Hgb 9.2 L Hct 29.0 L MCH 26 L RDW 18.4 H Plt Count Lymph % (Auto) [place] % (Auto) Lymph # (Auto) Seg Neutrophils % Seg Neuts % (Manual) 76.0 H Lymphocytes % (Manual) 8.0 L Monocytes % (Manual) 13.0 H Eosinophils % (Manual) Basophils % (Manual) Seg Neutrophils # Seg Neutrophils # Man Lymphocytes # (Manual) 0.6 L Monocytes # (Manual) 0.9 H APTT ABG pH POC ABG pCO2 POC ABG pO2 ABG pO2 ABG HCO3 ABG O2 Saturation ABG Base Excess ABG Hemoglobin ABG Oxyhemoglobin ABG Sodium ABG Potassium ABG Chloride ABG Glucose Oxyhemoglobin Carboxyhemoglobin Sodium 128 L Potassium Chloride 90.3 L Carbon Dioxide BUN 24 H Creatinine 4.3 H Glucose 135 H POC Glucose 142 H Calcium Phosphorus ALT Troponin T Total Protein Albumin Triglycerides HDL Cholesterol TSH Arterial Blood Glucose Crossmatch 08/11/21 08/12/21 08/12/21 16:39 05:23 05:23 WBC RBC 3.20 L Hgb 8.8 L Hct 26.7 L MCH RDW 18.6 H Plt Count Lymph % (Auto) [place] % (Auto) Lymph # (Auto) Seg Neutrophils % Seg Neuts % (Manual) Lymphocytes % (Manual) Monocytes % (Manual) Eosinophils % (Manual) Basophils % (Manual) Seg Neutrophils # Seg Neutrophils # Man Lymphocytes # (Manual) Monocytes # (Manual) APTT ABG pH POC ABG pCO2 POC ABG pO2 ABG pO2 ABG HCO3 ABG O2 Saturation ABG Base Excess ABG Hemoglobin ABG Oxyhemoglobin ABG Sodium ABG Potassium ABG Chloride ABG Glucose Oxyhemoglobin Carboxyhemoglobin Sodium 125 L Potassium Chloride 86.6 L Carbon Dioxide 21 L BUN 34 H Creatinine 5.0 H Glucose 111 H POC Glucose 112 H Calcium Phosphorus ALT Troponin T Total Protein Albumin Triglycerides HDL Cholesterol TSH Arterial Blood Glucose Crossmatch 08/12/21 08/12/21 08/13/21 12:18 17:56 06:01 WBC RBC Hgb Hct MCH RDW Plt Count Lymph % (Auto) [place] % (Auto) Lymph # (Auto) Seg Neutrophils % Seg Neuts % (Manual) Lymphocytes % (Manual) Monocytes % (Manual) Eosinophils % (Manual) Basophils % (Manual) Seg Neutrophils # Seg Neutrophils # Man Lymphocytes # (Manual) Monocytes # (Manual) APTT ABG pH POC ABG pCO2 POC ABG pO2 ABG pO2 ABG HCO3 ABG O2 Saturation ABG Base Excess ABG Hemoglobin ABG Oxyhemoglobin ABG Sodium ABG Potassium ABG Chloride ABG Glucose Oxyhemoglobin Carboxyhemoglobin Sodium Potassium Chloride Carbon Dioxide BUN Creatinine Glucose POC Glucose 140 H 119 H 110 H Calcium Phosphorus ALT Troponin T Total Protein Albumin Triglycerides HDL Cholesterol TSH Arterial Blood Glucose Crossmatch 08/13/21 08/13/21 08/14/21 Unknown Unknown 04:00 WBC RBC Hgb Hct MCH RDW Plt Count Lymph % (Auto) [place] % (Auto) Lymph # (Auto) Seg Neutrophils % Seg Neuts % (Manual) Lymphocytes % (Manual) Monocytes % (Manual) Eosinophils % (Manual) Basophils % (Manual) Seg Neutrophils # Seg Neutrophils # Man Lymphocytes # (Manual) Monocytes # (Manual) APTT ABG pH POC ABG pCO2 POC ABG pO2 ABG pO2 ABG HCO3 ABG O2 Saturation ABG Base Excess ABG Hemoglobin ABG Oxyhemoglobin ABG Sodium ABG Potassium ABG Chloride ABG Glucose Oxyhemoglobin Carboxyhemoglobin Sodium 129 L 128 L Potassium Chloride 90.1 L 89.7 L Carbon Dioxide BUN 24 H 36 H Creatinine 3.8 H 4.2 H Glucose POC Glucose Calcium Phosphorus ALT Troponin T Total Protein Albumin Triglycerides 399 H HDL Cholesterol TSH Arterial Blood Glucose Crossmatch 08/14/21 08/14/21 08/14/21 05:44 11:57 13:12 WBC RBC Hgb Hct MCH RDW Plt Count Lymph % (Auto) [place] % (Auto) Lymph # (Auto) Seg Neutrophils % Seg Neuts % (Manual) Lymphocytes % (Manual) Monocytes % (Manual) Eosinophils % (Manual) Basophils % (Manual) Seg Neutrophils # Seg Neutrophils # Man Lymphocytes # (Manual) Monocytes # (Manual) APTT ABG pH 7.498 H POC ABG pCO2 29.1 L POC ABG pO2 61.8 L ABG pO2 ABG HCO3 ABG O2 Saturation ABG Base Excess ABG Hemoglobin 8.6 L ABG Oxyhemoglobin 91.9 L ABG Sodium 126.4 L ABG Potassium ABG Chloride 92.0 L ABG Glucose 99 H Oxyhemoglobin Carboxyhemoglobin Sodium Potassium Chloride Carbon Dioxide BUN Creatinine Glucose POC Glucose 111 H 111 H Calcium Phosphorus ALT Troponin T Total Protein Albumin Triglycerides HDL Cholesterol TSH Arterial Blood Glucose 99 H Crossmatch 08/14/21 08/15/21 08/15/21 Unknown 04:34 04:34 WBC RBC 3.14 L 2.79 L Hgb 8.5 L 7.8 L Hct 25.5 L 22.8 L MCH 27 L RDW 19.1 H 18.8 H Plt Count Lymph % (Auto) [place] % (Auto) Lymph # (Auto) Seg Neutrophils % Seg Neuts % (Manual) Lymphocytes % (Manual) Monocytes % (Manual) Eosinophils % (Manual) Basophils % (Manual) Seg Neutrophils # Seg Neutrophils # Man Lymphocytes # (Manual) Monocytes # (Manual) APTT ABG pH POC ABG pCO2 POC ABG pO2 ABG pO2 ABG HCO3 ABG O2 Saturation ABG Base Excess ABG Hemoglobin ABG Oxyhemoglobin ABG Sodium ABG Potassium ABG Chloride ABG Glucose Oxyhemoglobin Carboxyhemoglobin Sodium 128 L Potassium Chloride 88.8 L Carbon Dioxide BUN 44 H Creatinine 5.1 H Glucose POC Glucose Calcium Phosphorus ALT Troponin T Total Protein Albumin Triglycerides HDL Cholesterol TSH Arterial Blood Glucose Crossmatch 08/15/21 08/15/21 08/15/21 05:22 10:56 16:52 WBC RBC Hgb Hct MCH RDW Plt Count Lymph % (Auto) [place] % (Auto) Lymph # (Auto) Seg Neutrophils % Seg Neuts % (Manual) Lymphocytes % (Manual) Monocytes % (Manual) Eosinophils % (Manual) Basophils % (Manual) Seg Neutrophils # Seg Neutrophils # Man Lymphocytes # (Manual) Monocytes # (Manual) APTT ABG pH 7.496 H POC ABG pCO2 29.8 L POC ABG pO2 ABG pO2 ABG HCO3 ABG O2 Saturation ABG Base Excess ABG Hemoglobin 7.4 L ABG Oxyhemoglobin ABG Sodium 124.3 L ABG Potassium ABG Chloride 92.0 L ABG Glucose Oxyhemoglobin Carboxyhemoglobin Sodium Potassium Chloride Carbon Dioxide BUN Creatinine Glucose POC Glucose 111 H 115 H Calcium Phosphorus ALT Troponin T Total Protein Albumin Triglycerides HDL Cholesterol TSH Arterial Blood Glucose Crossmatch 08/16/21 08/16/21 08/16/21 04:00 04:00 10:57 WBC RBC 2.96 L Hgb 8.0 L Hct 23.9 L MCH 27 L RDW 18.6 H Plt Count Lymph % (Auto) [place] % (Auto) Lymph # (Auto) Seg Neutrophils % Seg Neuts % (Manual) Lymphocytes % (Manual) Monocytes % (Manual) Eosinophils % (Manual) Basophils % (Manual) Seg Neutrophils # Seg Neutrophils # Man Lymphocytes # (Manual) Monocytes # (Manual) APTT ABG pH POC ABG pCO2 POC ABG pO2 ABG pO2 ABG HCO3 ABG O2 Saturation ABG Base Excess ABG Hemoglobin ABG Oxyhemoglobin ABG Sodium ABG Potassium ABG Chloride ABG Glucose Oxyhemoglobin Carboxyhemoglobin Sodium 132 L Potassium Chloride 93.1 L Carbon Dioxide BUN 26 H Creatinine 3.9 H Glucose 119 H POC Glucose 112 H Calcium Phosphorus ALT Troponin T Total Protein Albumin Triglycerides HDL Cholesterol TSH Arterial Blood Glucose Crossmatch Allied health notes reviewed: nursing
[2021-08-16] MEDS: fentaNYL 100 MCG/2 ML INJ IV PRN ×2 (11:51→15:15)
[2021-08-16] MEDS: methylPREDNISolone Sod Succinate 40 MG/1 ML INJ IV SCH ×2 (13:31→18:56)
--- NOTE | 2021-08-16 13:34 | Progress Note ---
Assessment and Plan Patient is a 60-year-old female with recurrent V. tach, end-stage renal disease, s/p ICD, and recurrent severe hypokalemia VT Storm Recurrent AICD Discharges CAD s/p PCI (07/17/2021) Accelerated HTN ESRD on HD Hyponatremia Severe Hypokalemia (POA, resolved) Anemia Thrombocytopenia Type 2 [place] HTN H/o CVA Plan: Currently waiting bed availability at [facility] for transfer for VT ablation Continue aspirin, Plavix, Lipitor Continue losartan 100 mg p.o. daily and metoprolol 100 mg p.o. twice daily,hydralazine 100 mg p.o.Q8hrs,amio 400 mg p.o. twice daily,minoxidil 5 mg p.o. twice daily Nicardipine has been stopped Continue clonidine 0.3 mg p.o. every 8 hours Patient seen in conjunction with Dr. aPtel who agrees with this plan of care - Patient Problems (1) AICD discharge Current Visit: Yes Status: Acute (2) Anemia in end-stage renal disease Current Visit: Yes Status: Acute (3) Elevated troponin Current Visit: Yes Status: Acute (4) Hypokalemia Current Visit: Yes Status: Acute (5) Sustained ventricular tachycardia Current Visit: Yes Status: Acute (6) Diabetes Current Visit: No Status: Acute (7) Respiratory failure Current Visit: No Status: Acute Qualifiers: Chronicity: acute Respiratory failure complication: hypoxia Qualified Code(s): J96.01 - Acute respiratory failure with hypoxia (8) Hypertension Current Visit: No Status: Chronic Qualifiers: Hypertension type: primary hypertension Qualified Code(s): I10 - Essential (primary) hypertension Subjective Date of service: 08/16/21 Principal diagnosis: Recurrent VT Interval history: Patient remains intubated and sedated. Patient A paced 70 no events on monitor Objective Vital Signs Temp Pulse Pulse Resp BP Pulse Ox Pulse Ox 08/16/21 11:47 97.9 F 08/16/21 11:23 73 155/55 99 08/16/21 08:00 70 155/55 99 08/16/21 07:46 98.0 F 08/16/21 06:20 100 08/16/21 06:01 70 24 100 08/16/21 05:31 70 12 100 08/16/21 05:15 70 155/55 08/16/21 05:01 70 17 08/16/21 04:31 70 13 100 08/16/21 04:00 100.6 F H 70 70 16 178/65 96 08/16/21 03:31 70 13 100 08/16/21 03:01 70 14 95 08/16/21 02:31 70 20 99 08/16/21 02:01 70 18 98 08/16/21 01:31 70 13 99 08/16/21 01:01 70 13 99 08/16/21 00:31 70 14 99 08/16/21 00:10 70 146/45 96 08/16/21 00:00 70 70 15 100 08/15/21 23:47 99.8 F H 08/15/21 23:30 70 18 100 08/15/21 23:00 70 13 100 08/15/21 22:50 98.2 F 70 21 178/63 98 08/15/21 22:30 70 13 96 08/15/21 22:27 70 175/57 08/15/21 22:26 70 167/54 08/15/21 22:15 70 165/55 08/15/21 22:00 70 20 168/55 99 08/15/21 21:45 70 170/59 08/15/21 21:30 70 14 178/65 99 08/15/21 21:15 70 175/61 08/15/21 21:00 70 14 178/65 98 08/15/21 20:45 70 169/60 08/15/21 20:30 70 13 178/65 96 08/15/21 20:15 70 161/59 08/15/21 20:04 70 178/65 98 08/15/21 20:00 70 70 14 167/61 100 08/15/21 19:46 70 13 98 08/15/21 19:45 70 166/61 08/15/21 19:39 99.5 F 08/15/21 19:30 70 12 164/60 100 08/15/21 19:16 70 13 100 08/15/21 19:15 70 166/61 08/15/21 19:00 70 14 178/65 100 08/15/21 18:55 97.9 F 70 15 178/65 98 08/15/21 18:46 70 19 99 08/15/21 18:30 70 18 181/60 99 08/15/21 18:16 70 16 181/60 99 08/15/21 18:00 70 18 181/60 99 08/15/21 17:46 70 19 181/60 99 08/15/21 17:30 70 21 181/60 100 08/15/21 17:16 70 17 181/60 98 08/15/21 17:00 70 19 177/58 98 08/15/21 16:46 70 18 177/58 98 08/15/21 16:30 70 17 168/67 98 08/15/21 16:16 70 16 168/67 97 08/15/21 16:00 98.1 F 70 70 18 168/67 99 08/15/21 15:46 70 16 168/67 99 08/15/21 15:38 70 163/61 98 08/15/21 15:30 70 14 168/67 98 08/15/21 15:16 70 11 L 168/67 98 08/15/21 15:00 70 12 168/67 99 08/15/21 14:48 71 165/60 08/15/21 14:47 73 166/60 08/15/21 14:46 70 12 168/67 98 08/15/21 14:30 70 17 168/67 100 08/15/21 14:16 70 14 168/67 100 08/15/21 14:00 70 14 168/67 99 08/15/21 13:46 70 14 168/67 100 Pulse Ox Pulse Ox Pulse Ox 08/16/21 11:47 08/16/21 11:23 08/16/21 08:00 08/16/21 07:46 08/16/21 06:20 08/16/21 06:01 08/16/21 05:31 08/16/21 05:15 08/16/21 05:01 08/16/21 04:31 08/16/21 04:00 08/16/21 03:31 08/16/21 03:01 08/16/21 02:31 08/16/21 02:01 08/16/21 01:31 08/16/21 01:01 08/16/21 00:31 08/16/21 00:10 08/16/21 00:00 08/15/21 23:47 08/15/21 23:30 08/15/21 23:00 08/15/21 22:50 99 98 98 08/15/21 22:30 08/15/21 22:27 08/15/21 22:26 08/15/21 22:15 08/15/21 22:00 08/15/21 21:45 08/15/21 21:30 08/15/21 21:15 08/15/21 21:00 08/15/21 20:45 08/15/21 20:30 08/15/21 20:15 08/15/21 20:04 08/15/21 20:00 08/15/21 19:46 08/15/21 19:45 08/15/21 19:39 08/15/21 19:30 08/15/21 19:16 08/15/21 19:15 08/15/21 19:00 08/15/21 18:55 99 30 L 98 08/15/21 18:46 08/15/21 18:30 08/15/21 18:16 08/15/21 18:00 08/15/21 17:46 08/15/21 17:30 08/15/21 17:16 08/15/21 17:00 08/15/21 16:46 08/15/21 16:30 08/15/21 16:16 08/15/21 16:00 08/15/21 15:46 08/15/21 15:38 08/15/21 15:30 08/15/21 15:16 08/15/21 15:00 08/15/21 14:48 08/15/21 14:47 08/15/21 14:46 08/15/21 14:30 08/15/21 14:16 08/15/21 14:00 08/15/21 13:46 - Physical Examination General: Other (intubated) HEENT: Positive: Normocephaly, Mucus Membranes Dry Neck: Positive: neck supple, trachea midline. Negative: JVD/HJR Cardiac: Positive: Reg Rate and Rhythm Lungs: Positive: Ventilated Respirations Neuro: Positive: Other (intubated) Abdomen: Positive: Soft Skin: Negative: Rash Musculoskeletal: No Fluid Collection Extremities: Present: lower extr. pulses. Absent: edema - Labs and Meds CBC 08/16/21 Range/Units 04:00 WBC 7.2 (4.5-11.0) K/mm3 RBC 2.96 L (3.65-5.03) M/mm3 Hgb 8.0 L (10.1-14.3) gm/dl Hct 23.9 L (30.3-42.9) % Plt Count 281 (140-440) K/mm3 Comprehensive Metabolic Panel 08/16/21 Range/Units 04:00 Sodium 132 L (137-145) mmol/L Potassium 3.8 (3.6-5.0) mmol/L Chloride 93.1 L (98-107) mmol/L Carbon Dioxide 24 (22-30) mmol/L BUN 26 H (7-17) mg/dL Creatinine 3.9 H (0.6-1.2) mg/dL Glucose 119 H (65-100) mg/dL Calcium 8.7 (8.4-10.2) mg/dL - Imaging and Cardiology EKG: report reviewed, image reviewed Echo: report reviewed Cardiac cath: report reviewed - Telemetry EKG Rhythm: Paced - EKG Sinus rhythms and dysrhythmias: sinus rhythm Repolarization changes or abnormalities: Q-T interval prolongation Myocardial infarction: anterior [place] (old age or i Pacemaker: atrial pacing w/capture - Allied health notes Allied health notes reviewed: nursing
--- NOTE | 2021-08-16 17:09 | XRay Report ---
XR abdomen 1V ap INDICATION: ngt placement verification. COMPARISON: 08/13/2021 FINDINGS: The tip of the esophagogastric tube projects over the body of the stomach. Signer Name: Jarrod Garza MD Signed: 08/16/2021 5:05 PM Workstation Name: [id number]
[2021-08-16] MEDS ORDERED: SODIUM CHLORIDE 0.9% 250ML 250 ML IV ONE (23:47)
[2021-08-17] MEDS: methylPREDNISolone Sod Succinate 40 MG/1 ML INJ IV SCH ×4 (00:41→18:09)
[2021-08-17] MEDS: fentaNYL 100 MCG/2 ML INJ IV PRN (00:41)
[2021-08-17] MEDS ORDERED: SODIUM CHLORIDE 0.9% 500 ML 500 ML IV ONE (01:46)
[2021-08-17 05:17] LABS: Hemoglobin 8.1 gm/dl (10.1-14.3); Mean Corpuscular HGB Conc 32 % (30-34); Mean Corpuscular Volume 81 fl (79-97); Platelet Count 307 K/mm3 (140-440); Red Blood Count 3.07 M/mm3 (3.65-5.03); Red Cell Distribution Width 19.3 % (13.2-15.2)
[2021-08-17] MEDS: cloNIDine 0.1 MG TAB PO SCH ×4 (05:30→23:10)
[2021-08-17] MEDS: ISOSORBIDE DINITRATE 20 MG TAB PO SCH ×3 (05:31→21:01)
[2021-08-17] MEDS: hydrALAZINE 100 MG TAB PO SCH ×3 (05:31→21:01)
[2021-08-17 05:35] LABS: Calcium 8.8 mg/dL (8.4-10.2)
--- NOTE | 2021-08-17 09:39 | Progress Note ---
Assessment and Plan - Patient Problems (1) Acute respiratory failure Current Visit: Yes Status: Acute (2) Hypokalemia Current Visit: Yes Status: Acute (3) Sustained ventricular tachycardia Current Visit: Yes Status: Acute (4) VT (ventricular tachycardia) Current Visit: Yes Status: Acute (5) Anemia Current Visit: Yes Status: Chronic Qualifiers: Anemia type: due to chronic kidney disease (6) End stage renal disease on dialysis Current Visit: Yes Status: Chronic (7) Diabetes Current Visit: No Status: Acute (8) Respiratory failure Current Visit: No Status: Acute Qualifiers: Chronicity: acute Respiratory failure complication: hypoxia Qualified Code(s): J96.01 - Acute respiratory failure with hypoxia Subjective Principal diagnosis: Recurrent VT Interval history: on vent. awake on AC 12 30% p6 450 Objective Vital Signs - 12hr 08/16/21 08/16/21 08/16/21 21:45 22:01 22:07 Temperature 97.9 F Pulse Rate 70 70 70 Pulse Rate [ From Monitor] Respiratory 18 15 Rate Blood Pressure 160/52 148/48 O2 Sat by Pulse 100 Oximetry O2 Sat by Pulse 100 Oximetry [ Anterior Bilateral] O2 Sat by Pulse 99 Oximetry [ Bases] O2 Sat by Pulse 98 Oximetry [ Bilateral Bases ] O2 Sat by Pulse 98 Oximetry [ Bilateral Throughout] 08/16/21 08/16/21 08/16/21 22:08 22:31 23:00 Temperature Pulse Rate 70 74 70 Pulse Rate [ From Monitor] Respiratory 21 12 Rate Blood Pressure 149/50 O2 Sat by Pulse 100 100 Oximetry O2 Sat by Pulse Oximetry [ Anterior Bilateral] O2 Sat by Pulse Oximetry [ Bases] O2 Sat by Pulse Oximetry [ Bilateral Bases ] O2 Sat by Pulse Oximetry [ Bilateral Throughout] 08/16/21 08/16/21 08/17/21 23:01 23:31 00:00 Temperature 98.0 F Pulse Rate 70 70 70 Pulse Rate [ 70 From Monitor] Respiratory 12 14 17 Rate Blood Pressure O2 Sat by Pulse 100 100 100 Oximetry O2 Sat by Pulse Oximetry [ Anterior Bilateral] O2 Sat by Pulse Oximetry [ Bases] O2 Sat by Pulse Oximetry [ Bilateral Bases ] O2 Sat by Pulse Oximetry [ Bilateral Throughout] 08/17/21 08/17/21 08/17/21 00:10 00:30 01:00 Temperature Pulse Rate 70 70 70 Pulse Rate [ From Monitor] Respiratory 14 14 Rate Blood Pressure 144/44 O2 Sat by Pulse 100 100 100 Oximetry O2 Sat by Pulse Oximetry [ Anterior Bilateral] O2 Sat by Pulse Oximetry [ Bases] O2 Sat by Pulse Oximetry [ Bilateral Bases ] O2 Sat by Pulse Oximetry [ Bilateral Throughout] 08/17/21 08/17/21 08/17/21 01:30 02:00 02:30 Temperature Pulse Rate 70 70 70 Pulse Rate [ From Monitor] Respiratory 11 L 13 10 L Rate Blood Pressure O2 Sat by Pulse 100 100 100 Oximetry O2 Sat by Pulse Oximetry [ Anterior Bilateral] O2 Sat by Pulse Oximetry [ Bases] O2 Sat by Pulse Oximetry [ Bilateral Bases ] O2 Sat by Pulse Oximetry [ Bilateral Throughout] 08/17/21 08/17/21 08/17/21 03:00 03:30 04:00 Temperature 97.7 F Pulse Rate 70 70 70 Pulse Rate [ 70 From Monitor] Respiratory 12 11 L 12 Rate Blood Pressure O2 Sat by Pulse 100 100 100 Oximetry O2 Sat by Pulse Oximetry [ Anterior Bilateral] O2 Sat by Pulse Oximetry [ Bases] O2 Sat by Pulse Oximetry [ Bilateral Bases ] O2 Sat by Pulse Oximetry [ Bilateral Throughout] 08/17/21 08/17/21 08/17/21 04:20 04:30 05:00 Temperature Pulse Rate 70 70 70 Pulse Rate [ From Monitor] Respiratory 11 L 11 L Rate Blood Pressure 134/48 O2 Sat by Pulse 100 100 100 Oximetry O2 Sat by Pulse Oximetry [ Anterior Bilateral] O2 Sat by Pulse Oximetry [ Bases] O2 Sat by Pulse Oximetry [ Bilateral Bases ] O2 Sat by Pulse Oximetry [ Bilateral Throughout] 08/17/21 08/17/21 08/17/21 05:30 05:31 06:00 Temperature Pulse Rate 70 70 118 H Pulse Rate [ From Monitor] Respiratory 12 13 Rate Blood Pressure 138/52 138/52 O2 Sat by Pulse 100 100 Oximetry O2 Sat by Pulse Oximetry [ Anterior Bilateral] O2 Sat by Pulse Oximetry [ Bases] O2 Sat by Pulse Oximetry [ Bilateral Bases ] O2 Sat by Pulse Oximetry [ Bilateral Throughout] 08/17/21 08/17/21 08/17/21 06:30 07:00 07:29 Temperature Pulse Rate 70 70 70 Pulse Rate [ From Monitor] Respiratory 11 L 13 Rate Blood Pressure 144/44 143/45 O2 Sat by Pulse 100 100 100 Oximetry O2 Sat by Pulse Oximetry [ Anterior Bilateral] O2 Sat by Pulse Oximetry [ Bases] O2 Sat by Pulse Oximetry [ Bilateral Bases ] O2 Sat by Pulse Oximetry [ Bilateral Throughout] 08/17/21 08/17/21 08/17/21 07:30 08:00 08:30 Temperature Pulse Rate 70 70 Pulse Rate [ From Monitor] Respiratory 12 13 Rate Blood Pressure 164/50 135/49 131/47 O2 Sat by Pulse 100 99 97 Oximetry O2 Sat by Pulse Oximetry [ Anterior Bilateral] O2 Sat by Pulse Oximetry [ Bases] O2 Sat by Pulse Oximetry [ Bilateral Bases ] O2 Sat by Pulse Oximetry [ Bilateral Throughout] 08/17/21 08/17/21 09:00 09:08 Temperature 97.5 F L Pulse Rate 161 H Pulse Rate [ From Monitor] Respiratory 20 Rate Blood Pressure 128/47 O2 Sat by Pulse 97 Oximetry O2 Sat by Pulse Oximetry [ Anterior Bilateral] O2 Sat by Pulse Oximetry [ Bases] O2 Sat by Pulse Oximetry [ Bilateral Bases ] O2 Sat by Pulse Oximetry [ Bilateral Throughout] Constitutional: other (intubated ) Eyes: non-icteric ENT: other (orally intubated, lips swollen) Neck: supple Effort: normal Ascultation: Bilateral: clear Percussion: Bilateral: not dull Cardiovascular: regular rate and rhythm (no mrg) Gastrointestinal: normoactive bowel sounds, soft, non-tender, non-distended Integumentary: normal Extremities: no cyanosis, no edema, pink and warm Neurologic: other (follows commands) Psychiatric: other (unable to assess) CBC and BMP: 08/17/21 04:00 08/17/21 04:00 ABG, PT/INR, D-dimer: ABG ABG pH 7.579 (7.320-7.450) H 08/17/21 05:09 POC ABG pCO2 27.0 mmHg (32.0-48.0) L 08/17/21 05:09 ABG pCO2 41.2 mm Hg 08/09/21 04:30 POC ABG pO2 139.0 mmHg (83-108) H 08/17/21 05:09 ABG pO2 91.5 mm Hg (80.0-90.0) H 08/09/21 04:30 POC ABG HCO3 24.7 08/17/21 05:09 ABG O2 Saturation 99.4 (0-100) 08/17/21 05:09 PT/INR, D-dimer PT 14.2 Sec. (12.2-14.9) 08/06/21 16:35 INR 0.99 (0.87-1.13) 08/06/21 16:35 Abnormal lab findings: Abnormal Labs 08/05/21 08/05/21 08/05/21 15:55 15:55 18:50 WBC 3.7 L RBC 2.98 L Hgb 7.5 L Hct 23.8 L MCH 25 L RDW 18.9 H Plt Count 134 L Lymph % (Auto) [place] % (Auto) Lymph # (Auto) Seg Neutrophils % Seg Neuts % (Manual) Lymphocytes % (Manual) Monocytes % (Manual) 18.0 H Eosinophils % (Manual) Basophils % (Manual) 2.0 H Seg Neutrophils # Seg Neutrophils # Man Lymphocytes # (Manual) 0.9 L Monocytes # (Manual) APTT ABG pH 7.523 H POC ABG pCO2 POC ABG pO2 ABG pO2 47.1 L ABG HCO3 34.6 H ABG O2 Saturation 85.4 L ABG Base Excess 10.8 H ABG Hemoglobin 7.3 L ABG Oxyhemoglobin ABG Sodium ABG Potassium ABG Chloride ABG Glucose Oxyhemoglobin 83.6 L Carboxyhemoglobin Sodium Potassium 2.7 L* Chloride 93.8 L Carbon Dioxide 33 H BUN Creatinine 2.8 H Glucose 124 H POC Glucose Calcium 8.2 L Phosphorus ALT < 5 L Troponin T 0.126 H* Total Protein Albumin 3.5 L Triglycerides 202 H HDL Cholesterol 32 L TSH Arterial Blood Glucose Crossmatch 08/05/21 08/05/21 08/06/21 18:56 Unknown 04:20 WBC RBC Hgb Hct MCH RDW Plt Count Lymph % (Auto) [place] % (Auto) Lymph # (Auto) Seg Neutrophils % Seg Neuts % (Manual) Lymphocytes % (Manual) Monocytes % (Manual) Eosinophils % (Manual) Basophils % (Manual) Seg Neutrophils # Seg Neutrophils # Man Lymphocytes # (Manual) Monocytes # (Manual) APTT ABG pH 7.575 H 7.606 H* POC ABG pCO2 POC ABG pO2 ABG pO2 142.9 H 111.2 H ABG HCO3 33.2 H 33.6 H ABG O2 Saturation ABG Base Excess 10.4 H 11.2 H ABG Hemoglobin 6.6 L 6.8 L ABG Oxyhemoglobin ABG Sodium ABG Potassium ABG Chloride ABG Glucose Oxyhemoglobin Carboxyhemoglobin Sodium Potassium Chloride Carbon Dioxide BUN Creatinine Glucose POC Glucose Calcium Phosphorus ALT Troponin T 0.183 H* D Total Protein Albumin Triglycerides HDL Cholesterol TSH Arterial Blood Glucose Crossmatch 08/06/21 08/06/21 08/06/21 04:29 04:29 04:29 WBC 2.5 L RBC 2.70 L Hgb 6.8 L Hct 21.3 L MCH 25 L RDW 18.1 H Plt Count 126 L Lymph % (Auto) 45.0 H [place] % (Auto) 13.6 H Lymph # (Auto) 1.1 L Seg Neutrophils % 37.3 L Seg Neuts % (Manual) Lymphocytes % (Manual) Monocytes % (Manual) Eosinophils % (Manual) Basophils % (Manual) Seg Neutrophils # 0.9 L Seg Neutrophils # Man Lymphocytes # (Manual) Monocytes # (Manual) APTT 38.8 H ABG pH POC ABG pCO2 POC ABG pO2 ABG pO2 ABG HCO3 ABG O2 Saturation ABG Base Excess ABG Hemoglobin ABG Oxyhemoglobin ABG Sodium ABG Potassium ABG Chloride ABG Glucose Oxyhemoglobin Carboxyhemoglobin Sodium 136 L Potassium 3.0 L Chloride 92.6 L Carbon Dioxide 32 H BUN Creatinine 3.8 H Glucose POC Glucose Calcium Phosphorus ALT Troponin T Total Protein 5.8 L Albumin 3.1 L Triglycerides HDL Cholesterol TSH Arterial Blood Glucose Crossmatch 08/06/21 08/06/21 08/06/21 05:30 07:26 07:26 WBC RBC Hgb 7.0 L Hct 22.5 L MCH RDW Plt Count 127 L Lymph % (Auto) [place] % (Auto) Lymph # (Auto) Seg Neutrophils % Seg Neuts % (Manual) Lymphocytes % (Manual) Monocytes % (Manual) Eosinophils % (Manual) Basophils % (Manual) Seg Neutrophils # Seg Neutrophils # Man Lymphocytes # (Manual) Monocytes # (Manual) APTT 37.1 H ABG pH POC ABG pCO2 POC ABG pO2 ABG pO2 ABG HCO3 ABG O2 Saturation ABG Base Excess ABG Hemoglobin ABG Oxyhemoglobin ABG Sodium ABG Potassium ABG Chloride ABG Glucose Oxyhemoglobin Carboxyhemoglobin Sodium Potassium Chloride Carbon Dioxide BUN Creatinine Glucose POC Glucose Calcium Phosphorus ALT Troponin T Total Protein Albumin Triglycerides HDL Cholesterol TSH Arterial Blood Glucose Crossmatch See Detail 08/06/21 08/06/21 08/06/21 08:06 14:50 16:03 WBC RBC Hgb Hct MCH RDW Plt Count Lymph % (Auto) [place] % (Auto) Lymph # (Auto) Seg Neutrophils % Seg Neuts % (Manual) Lymphocytes % (Manual) Monocytes % (Manual) Eosinophils % (Manual) Basophils % (Manual) Seg Neutrophils # Seg Neutrophils # Man Lymphocytes # (Manual) Monocytes # (Manual) APTT ABG pH POC ABG pCO2 POC ABG pO2 ABG pO2 ABG HCO3 ABG O2 Saturation ABG Base Excess ABG Hemoglobin ABG Oxyhemoglobin ABG Sodium ABG Potassium ABG Chloride ABG Glucose Oxyhemoglobin Carboxyhemoglobin Sodium Potassium 3.1 L Chloride 92.4 L Carbon Dioxide 33 H BUN Creatinine 3.9 H Glucose POC Glucose 59 L 121 H Calcium Phosphorus ALT Troponin T Total Protein Albumin Triglycerides HDL Cholesterol TSH Arterial Blood Glucose Crossmatch 08/06/21 08/06/21 08/06/21 16:35 16:35 17:31 WBC 4.2 L RBC 3.27 L Hgb 8.5 L Hct 26.8 L MCH 26 L RDW 18.7 H Plt Count 124 L Lymph % (Auto) [place] % (Auto) 15.5 H Lymph # (Auto) 0.8 L Seg Neutrophils % Seg Neuts % (Manual) Lymphocytes % (Manual) Monocytes % (Manual) Eosinophils % (Manual) Basophils % (Manual) Seg Neutrophils # Seg Neutrophils # Man Lymphocytes # (Manual) Monocytes # (Manual) APTT ABG pH POC ABG pCO2 POC ABG pO2 ABG pO2 ABG HCO3 ABG O2 Saturation ABG Base Excess ABG Hemoglobin ABG Oxyhemoglobin ABG Sodium ABG Potassium ABG Chloride ABG Glucose Oxyhemoglobin Carboxyhemoglobin Sodium 133 L Potassium Chloride 93.2 L Carbon Dioxide BUN 21 H Creatinine 4.6 H Glucose POC Glucose 62 L Calcium 8.3 L Phosphorus ALT Troponin T Total Protein 6.2 L Albumin 3.2 L Triglycerides HDL Cholesterol TSH Arterial Blood Glucose Crossmatch 08/06/21 08/06/21 08/07/21 18:14 18:22 04:00 WBC 1.0 L* RBC 2.67 L Hgb 7.0 L Hct 21.8 L MCH 26 L RDW 18.7 H Plt Count 82 L Lymph % (Auto) [place] % (Auto) Lymph # (Auto) Seg Neutrophils % Seg Neuts % (Manual) 16.0 L Lymphocytes % (Manual) 60.0 H Monocytes % (Manual) Eosinophils % (Manual) 11.0 H Basophils % (Manual) 4.0 H Seg Neutrophils # Seg Neutrophils # Man 0.2 L Lymphocytes # (Manual) 0.6 L Monocytes # (Manual) APTT ABG pH 7.565 H POC ABG pCO2 POC ABG pO2 ABG pO2 113.3 H ABG HCO3 29.4 H ABG O2 Saturation ABG Base Excess 6.9 H ABG Hemoglobin 8.3 L ABG Oxyhemoglobin ABG Sodium ABG Potassium ABG Chloride ABG Glucose Oxyhemoglobin Carboxyhemoglobin Sodium Potassium Chloride Carbon Dioxide BUN Creatinine Glucose POC Glucose 148 H Calcium Phosphorus ALT Troponin T Total Protein Albumin Triglycerides HDL Cholesterol TSH Arterial Blood Glucose Crossmatch 08/07/21 08/07/21 08/07/21 04:00 04:25 08:30 WBC RBC Hgb Hct MCH RDW Plt Count Lymph % (Auto) [place] % (Auto) Lymph # (Auto) Seg Neutrophils % Seg Neuts % (Manual) Lymphocytes % (Manual) Monocytes % (Manual) Eosinophils % (Manual) Basophils % (Manual) Seg Neutrophils # Seg Neutrophils # Man Lymphocytes # (Manual) Monocytes # (Manual) APTT ABG pH 7.609 H* 7.479 H POC ABG pCO2 POC ABG pO2 ABG pO2 121.4 H 130.2 H ABG HCO3 28.5 H 30.3 H ABG O2 Saturation ABG Base Excess 7.2 H 6.2 H ABG Hemoglobin 10.7 L 8.1 L ABG Oxyhemoglobin ABG Sodium ABG Potassium ABG Chloride ABG Glucose Oxyhemoglobin Carboxyhemoglobin Sodium 133 L Potassium 3.2 L D Chloride 93.9 L Carbon Dioxide BUN 23 H Creatinine 4.3 H Glucose POC Glucose Calcium 8.1 L Phosphorus ALT Troponin T Total Protein Albumin Triglycerides HDL Cholesterol TSH Arterial Blood Glucose Crossmatch 08/07/21 08/07/21 08/07/21 13:18 13:30 15:51 WBC RBC Hgb Hct MCH RDW Plt Count Lymph % (Auto) [place] % (Auto) Lymph # (Auto) Seg Neutrophils % Seg Neuts % (Manual) Lymphocytes % (Manual) Monocytes % (Manual) Eosinophils % (Manual) Basophils % (Manual) Seg Neutrophils # Seg Neutrophils # Man Lymphocytes # (Manual) Monocytes # (Manual) APTT ABG pH POC ABG pCO2 POC ABG pO2 ABG pO2 ABG HCO3 ABG O2 Saturation ABG Base Excess ABG Hemoglobin ABG Oxyhemoglobin ABG Sodium ABG Potassium ABG Chloride ABG Glucose Oxyhemoglobin Carboxyhemoglobin Sodium Potassium Chloride Carbon Dioxide BUN Creatinine Glucose POC Glucose 67 L 58 L Calcium Phosphorus ALT Troponin T Total Protein Albumin Triglycerides HDL Cholesterol TSH 7.070 H Arterial Blood Glucose Crossmatch 08/08/21 08/08/21 08/08/21 04:19 04:26 04:26 WBC RBC Hgb 6.8 L Hct 21.6 L MCH RDW Plt Count 91 L Lymph % (Auto) [place] % (Auto) Lymph # (Auto) Seg Neutrophils % Seg Neuts % (Manual) Lymphocytes % (Manual) Monocytes % (Manual) Eosinophils % (Manual) Basophils % (Manual) Seg Neutrophils # Seg Neutrophils # Man Lymphocytes # (Manual) Monocytes # (Manual) APTT ABG pH 7.545 H POC ABG pCO2 POC ABG pO2 ABG pO2 136.1 H ABG HCO3 27.3 H ABG O2 Saturation ABG Base Excess 4.5 H ABG Hemoglobin 6.9 L ABG Oxyhemoglobin ABG Sodium ABG Potassium ABG Chloride ABG Glucose Oxyhemoglobin Carboxyhemoglobin Sodium 132 L Potassium Chloride 93.5 L Carbon Dioxide BUN Creatinine 3.7 H Glucose POC Glucose Calcium Phosphorus ALT Troponin T Total Protein Albumin Triglycerides HDL Cholesterol TSH Arterial Blood Glucose Crossmatch 08/08/21 08/08/21 08/08/21 09:45 12:23 18:51 WBC RBC Hgb Hct MCH RDW Plt Count Lymph % (Auto) [place] % (Auto) Lymph # (Auto) Seg Neutrophils % Seg Neuts % (Manual) Lymphocytes % (Manual) Monocytes % (Manual) Eosinophils % (Manual) Basophils % (Manual) Seg Neutrophils # Seg Neutrophils # Man Lymphocytes # (Manual) Monocytes # (Manual) APTT ABG pH 7.471 H POC ABG pCO2 POC ABG pO2 71.1 L ABG pO2 ABG HCO3 ABG O2 Saturation ABG Base Excess ABG Hemoglobin ABG Oxyhemoglobin ABG Sodium 128.9 L ABG Potassium ABG Chloride 95.0 L ABG Glucose 64 L Oxyhemoglobin Carboxyhemoglobin Sodium Potassium Chloride Carbon Dioxide BUN Creatinine Glucose POC Glucose 58 L 68 L Calcium Phosphorus ALT Troponin T Total Protein Albumin Triglycerides HDL Cholesterol TSH Arterial Blood Glucose 64 L Crossmatch 08/09/21 08/09/21 08/09/21 04:30 04:33 04:33 WBC 2.4 L RBC 3.16 L Hgb 8.3 L Hct 26.5 L MCH 26 L RDW 18.3 H Plt Count 113 L Lymph % (Auto) [place] % (Auto) Lymph # (Auto) Seg Neutrophils % Seg Neuts % (Manual) Lymphocytes % (Manual) Monocytes % (Manual) Eosinophils % (Manual) Basophils % (Manual) Seg Neutrophils # Seg Neutrophils # Man Lymphocytes # (Manual) Monocytes # (Manual) APTT ABG pH POC ABG pCO2 POC ABG pO2 ABG pO2 91.5 H ABG HCO3 26.6 H ABG O2 Saturation ABG Base Excess ABG Hemoglobin 9.0 L ABG Oxyhemoglobin ABG Sodium ABG Potassium ABG Chloride ABG Glucose Oxyhemoglobin Carboxyhemoglobin Sodium 129 L Potassium Chloride 91.9 L Carbon Dioxide BUN 22 H Creatinine 4.7 H Glucose POC Glucose Calcium Phosphorus ALT Troponin T Total Protein Albumin Triglycerides HDL Cholesterol TSH Arterial Blood Glucose Crossmatch 08/10/21 08/10/21 08/10/21 04:00 04:00 04:55 WBC 3.3 L RBC 3.32 L Hgb 8.9 L Hct 27.6 L MCH 27 L RDW 18.3 H Plt Count Lymph % (Auto) [place] % (Auto) Lymph # (Auto) Seg Neutrophils % Seg Neuts % (Manual) Lymphocytes % (Manual) Monocytes % (Manual) 9.0 H Eosinophils % (Manual) Basophils % (Manual) Seg Neutrophils # Seg Neutrophils # Man Lymphocytes # (Manual) 0.6 L Monocytes # (Manual) APTT ABG pH POC ABG pCO2 POC ABG pO2 ABG pO2 ABG HCO3 ABG O2 Saturation ABG Base Excess ABG Hemoglobin 9.6 L ABG Oxyhemoglobin ABG Sodium 120.3 L ABG Potassium 5.2 H ABG Chloride 88.0 L ABG Glucose Oxyhemoglobin Carboxyhemoglobin 0.4 L Sodium 123 L Potassium 5.5 H D Chloride 84.8 L Carbon Dioxide BUN 30 H Creatinine 5.5 H Glucose 139 H POC Glucose Calcium Phosphorus 5.90 H ALT Troponin T Total Protein Albumin Triglycerides HDL Cholesterol TSH Arterial Blood Glucose Crossmatch 08/10/21 08/11/21 08/11/21 12:17 04:00 05:53 WBC RBC 3.50 L Hgb 9.2 L Hct 29.0 L MCH 26 L RDW 18.4 H Plt Count Lymph % (Auto) [place] % (Auto) Lymph # (Auto) Seg Neutrophils % Seg Neuts % (Manual) 76.0 H Lymphocytes % (Manual) 8.0 L Monocytes % (Manual) 13.0 H Eosinophils % (Manual) Basophils % (Manual) Seg Neutrophils # Seg Neutrophils # Man Lymphocytes # (Manual) 0.6 L Monocytes # (Manual) 0.9 H APTT ABG pH POC ABG pCO2 POC ABG pO2 ABG pO2 ABG HCO3 ABG O2 Saturation ABG Base Excess ABG Hemoglobin ABG Oxyhemoglobin ABG Sodium ABG Potassium ABG Chloride ABG Glucose Oxyhemoglobin Carboxyhemoglobin Sodium 128 L Potassium Chloride 90.3 L Carbon Dioxide BUN 24 H Creatinine 4.3 H Glucose 135 H POC Glucose 142 H Calcium Phosphorus ALT Troponin T Total Protein Albumin Triglycerides HDL Cholesterol TSH Arterial Blood Glucose Crossmatch 08/11/21 08/12/21 08/12/21 16:39 05:23 05:23 WBC RBC 3.20 L Hgb 8.8 L Hct 26.7 L MCH RDW 18.6 H Plt Count Lymph % (Auto) [place] % (Auto) Lymph # (Auto) Seg Neutrophils % Seg Neuts % (Manual) Lymphocytes % (Manual) Monocytes % (Manual) Eosinophils % (Manual) Basophils % (Manual) Seg Neutrophils # Seg Neutrophils # Man Lymphocytes # (Manual) Monocytes # (Manual) APTT ABG pH POC ABG pCO2 POC ABG pO2 ABG pO2 ABG HCO3 ABG O2 Saturation ABG Base Excess ABG Hemoglobin ABG Oxyhemoglobin ABG Sodium ABG Potassium ABG Chloride ABG Glucose Oxyhemoglobin Carboxyhemoglobin Sodium 125 L Potassium Chloride 86.6 L Carbon Dioxide 21 L BUN 34 H Creatinine 5.0 H Glucose 111 H POC Glucose 112 H Calcium Phosphorus ALT Troponin T Total Protein Albumin Triglycerides HDL Cholesterol TSH Arterial Blood Glucose Crossmatch 08/12/21 08/12/21 08/13/21 12:18 17:56 06:01 WBC RBC Hgb Hct MCH RDW Plt Count Lymph % (Auto) [place] % (Auto) Lymph # (Auto) Seg Neutrophils % Seg Neuts % (Manual) Lymphocytes % (Manual) Monocytes % (Manual) Eosinophils % (Manual) Basophils % (Manual) Seg Neutrophils # Seg Neutrophils # Man Lymphocytes # (Manual) Monocytes # (Manual) APTT ABG pH POC ABG pCO2 POC ABG pO2 ABG pO2 ABG HCO3 ABG O2 Saturation ABG Base Excess ABG Hemoglobin ABG Oxyhemoglobin ABG Sodium ABG Potassium ABG Chloride ABG Glucose Oxyhemoglobin Carboxyhemoglobin Sodium Potassium Chloride Carbon Dioxide BUN Creatinine Glucose POC Glucose 140 H 119 H 110 H Calcium Phosphorus ALT Troponin T Total Protein Albumin Triglycerides HDL Cholesterol TSH Arterial Blood Glucose Crossmatch 08/13/21 08/13/21 08/14/21 Unknown Unknown 04:00 WBC RBC Hgb Hct MCH RDW Plt Count Lymph % (Auto) [place] % (Auto) Lymph # (Auto) Seg Neutrophils % Seg Neuts % (Manual) Lymphocytes % (Manual) Monocytes % (Manual) Eosinophils % (Manual) Basophils % (Manual) Seg Neutrophils # Seg Neutrophils # Man Lymphocytes # (Manual) Monocytes # (Manual) APTT ABG pH POC ABG pCO2 POC ABG pO2 ABG pO2 ABG HCO3 ABG O2 Saturation ABG Base Excess ABG Hemoglobin ABG Oxyhemoglobin ABG Sodium ABG Potassium ABG Chloride ABG Glucose Oxyhemoglobin Carboxyhemoglobin Sodium 129 L 128 L Potassium Chloride 90.1 L 89.7 L Carbon Dioxide BUN 24 H 36 H Creatinine 3.8 H 4.2 H Glucose POC Glucose Calcium Phosphorus ALT Troponin T Total Protein Albumin Triglycerides 399 H HDL Cholesterol TSH Arterial Blood Glucose Crossmatch 08/14/21 08/14/21 08/14/21 05:44 11:57 13:12 WBC RBC Hgb Hct MCH RDW Plt Count Lymph % (Auto) [place] % (Auto) Lymph # (Auto) Seg Neutrophils % Seg Neuts % (Manual) Lymphocytes % (Manual) Monocytes % (Manual) Eosinophils % (Manual) Basophils % (Manual) Seg Neutrophils # Seg Neutrophils # Man Lymphocytes # (Manual) Monocytes # (Manual) APTT ABG pH 7.498 H POC ABG pCO2 29.1 L POC ABG pO2 61.8 L ABG pO2 ABG HCO3 ABG O2 Saturation ABG Base Excess ABG Hemoglobin 8.6 L ABG Oxyhemoglobin 91.9 L ABG Sodium 126.4 L ABG Potassium ABG Chloride 92.0 L ABG Glucose 99 H Oxyhemoglobin Carboxyhemoglobin Sodium Potassium Chloride Carbon Dioxide BUN Creatinine Glucose POC Glucose 111 H 111 H Calcium Phosphorus ALT Troponin T Total Protein Albumin Triglycerides HDL Cholesterol TSH Arterial Blood Glucose 99 H Crossmatch 08/14/21 08/15/21 08/15/21 Unknown 04:34 04:34 WBC RBC 3.14 L 2.79 L Hgb 8.5 L 7.8 L Hct 25.5 L 22.8 L MCH 27 L RDW 19.1 H 18.8 H Plt Count Lymph % (Auto) [place] % (Auto) Lymph # (Auto) Seg Neutrophils % Seg Neuts % (Manual) Lymphocytes % (Manual) Monocytes % (Manual) Eosinophils % (Manual) Basophils % (Manual) Seg Neutrophils # Seg Neutrophils # Man Lymphocytes # (Manual) Monocytes # (Manual) APTT ABG pH POC ABG pCO2 POC ABG pO2 ABG pO2 ABG HCO3 ABG O2 Saturation ABG Base Excess ABG Hemoglobin ABG Oxyhemoglobin ABG Sodium ABG Potassium ABG Chloride ABG Glucose Oxyhemoglobin Carboxyhemoglobin Sodium 128 L Potassium Chloride 88.8 L Carbon Dioxide BUN 44 H Creatinine 5.1 H Glucose POC Glucose Calcium Phosphorus ALT Troponin T Total Protein Albumin Triglycerides HDL Cholesterol TSH Arterial Blood Glucose Crossmatch 08/15/21 08/15/21 08/15/21 05:22 10:56 16:52 WBC RBC Hgb Hct MCH RDW Plt Count Lymph % (Auto) [place] % (Auto) Lymph # (Auto) Seg Neutrophils % Seg Neuts % (Manual) Lymphocytes % (Manual) Monocytes % (Manual) Eosinophils % (Manual) Basophils % (Manual) Seg Neutrophils # Seg Neutrophils # Man Lymphocytes # (Manual) Monocytes # (Manual) APTT ABG pH 7.496 H POC ABG pCO2 29.8 L POC ABG pO2 ABG pO2 ABG HCO3 ABG O2 Saturation ABG Base Excess ABG Hemoglobin 7.4 L ABG Oxyhemoglobin ABG Sodium 124.3 L ABG Potassium ABG Chloride 92.0 L ABG Glucose Oxyhemoglobin Carboxyhemoglobin Sodium Potassium Chloride Carbon Dioxide BUN Creatinine Glucose POC Glucose 111 H 115 H Calcium Phosphorus ALT Troponin T Total Protein Albumin Triglycerides HDL Cholesterol TSH Arterial Blood Glucose Crossmatch 08/16/21 08/16/21 08/16/21 04:00 04:00 10:57 WBC RBC 2.96 L Hgb 8.0 L Hct 23.9 L MCH 27 L RDW 18.6 H Plt Count Lymph % (Auto) [place] % (Auto) Lymph # (Auto) Seg Neutrophils % Seg Neuts % (Manual) Lymphocytes % (Manual) Monocytes % (Manual) Eosinophils % (Manual) Basophils % (Manual) Seg Neutrophils # Seg Neutrophils # Man Lymphocytes # (Manual) Monocytes # (Manual) APTT ABG pH POC ABG pCO2 POC ABG pO2 ABG pO2 ABG HCO3 ABG O2 Saturation ABG Base Excess ABG Hemoglobin ABG Oxyhemoglobin ABG Sodium ABG Potassium ABG Chloride ABG Glucose Oxyhemoglobin Carboxyhemoglobin Sodium 132 L Potassium Chloride 93.1 L Carbon Dioxide BUN 26 H Creatinine 3.9 H Glucose 119 H POC Glucose 112 H Calcium Phosphorus ALT Troponin T Total Protein Albumin Triglycerides HDL Cholesterol TSH Arterial Blood Glucose Crossmatch 08/16/21 08/17/21 08/17/21 23:20 04:00 04:00 WBC RBC 3.07 L Hgb 8.1 L Hct 25.0 L MCH 26 L RDW 19.3 H Plt Count Lymph % (Auto) Cottle % (Auto) Lymph # (Auto) Seg Neutrophils % Seg Neuts % (Manual) Lymphocytes % (Manual) Monocytes % (Manual) Eosinophils % (Manual) Basophils % (Manual) Seg Neutrophils # Seg Neutrophils # Man Lymphocytes # (Manual) Monocytes # (Manual) APTT ABG pH POC ABG pCO2 POC ABG pO2 ABG pO2 ABG HCO3 ABG O2 Saturation ABG Base Excess ABG Hemoglobin ABG Oxyhemoglobin ABG Sodium ABG Potassium ABG Chloride ABG Glucose Oxyhemoglobin Carboxyhemoglobin Sodium 135 L Potassium Chloride 97.4 L Carbon Dioxide BUN 20 H Creatinine 3.0 H Glucose 171 H POC Glucose 125 H Calcium Phosphorus ALT Troponin T Total Protein Albumin Triglycerides HDL Cholesterol TSH Arterial Blood Glucose Crossmatch 08/17/21 08/17/21 05:09 05:12 WBC RBC Hgb Hct MCH RDW Plt Count Lymph % (Auto) [place]le % (Auto) Lymph # (Auto) Seg Neutrophils % Seg Neuts % (Manual) Lymphocytes % (Manual) Monocytes % (Manual) Eosinophils % (Manual) Basophils % (Manual) Seg Neutrophils # Seg Neutrophils # Man Lymphocytes # (Manual) Monocytes # (Manual) APTT ABG pH 7.579 H POC ABG pCO2 27.0 L POC ABG pO2 139.0 H ABG pO2 ABG HCO3 ABG O2 Saturation ABG Base Excess ABG Hemoglobin 8.1 L ABG Oxyhemoglobin 98.3 H ABG Sodium 132.1 L ABG Potassium ABG Chloride ABG Glucose 160 H Oxyhemoglobin Carboxyhemoglobin Sodium Potassium Chloride Carbon Dioxide BUN Creatinine Glucose POC Glucose 155 H Calcium Phosphorus ALT Troponin T Total Protein Albumin Triglycerides HDL Cholesterol TSH Arterial Blood Glucose 160 H Crossmatch Allied health notes reviewed: nursing
[2021-08-17] MEDS: CLOPIDOGREL 75 MG TAB PO SCH (10:08)
[2021-08-17] MEDS: HEPARIN 5,000 UNIT/1 ML VIAL SUB-Q SCH ×2 (10:08→21:00)
[2021-08-17] MEDS: FAMOTIDINE 10 MG TAB PO SCH ×2 (10:09→21:01)
[2021-08-17] MEDS: ASPIRIN 81 MG TAB CHEW PO SCH (10:09)
[2021-08-17] MEDS: LOSARTAN 25 MG TAB PO SCH (10:10)
[2021-08-17] MEDS: AMIODARONE 200 MG TAB PO SCH ×2 (10:11→21:01)
[2021-08-17] MEDS: METOPROLOL TARTRATE 50 MG TAB PO SCH ×3 (10:11→23:10)
[2021-08-17] MEDS: SENNOSIDES ORAL LIQD 8.8 MG/5 ML ORAL LIQD FEEDTUBE SCH ×2 (10:14→21:00)
[2021-08-17] MEDS: MINOXIDIL 2.5 MG TAB PO SCH ×2 (10:14→21:01)
--- NOTE | 2021-08-17 10:54 | Progress Note ---
Assessment and Plan Assessment and plan: This is 60-year-old female with ESRD on HD, recurrent AICD discharges, V. tach, cardiac arrest, anemia of chronic disease, CAD, systolic HF and HTN admitted for V. tach storm and severe hypokalemia Hospital Course to Date: This is 60-year-old female with ESRD on HD, recurrent AICD discharges, systolic heart failure, V. tach, cardiac arrest, anemia, CAD and HTN who presents to the emergency department from her dialysis center on 08/05 for severe muscle spasms secondary to AICD discharges per patient. She also had questionable seizures in the dialysis center. Patient was started on amiodarone and lidocaine. Patient was intubated for airway protection in the emergency department and work-up also revealed severe hypokalemia. Patient was admitted to the hospital service with consult cardiology, nephrology and [facility]. 08/06/2021: Patient is sedated, Transfer to [place] arranged 08/07: COVID-19 PCR negative. Patient received hemodialysis today. Off Cardene drip. Patient has been OG tube for p.o. BP medications. Thrombocytopenia persists therefore anticoagulation is held. Patient is leukopenia also. We will continue to trend CBC. Persistent hypoglycemia and D10 drip increased to 30 ml/hr. negative Covid test relayed to [place]. 08/08: 1 unit prbc today, will start TF today. Still awaiting [place] bed. 08/09: awaiting transfer to [place]. TF nearly at goal so anticipate stopping dextrose IVF soon. Midline to be placed 08/10/2021: Received HD today. BP remains elevated therefore started on cardene gtt. Cardiology aware. No beds available yet. 08/11/2021: Cardene gtt infusing, CT head ordered as per nurse patient is not really responding (withdraw/ grimace to pain when off sedation/PERRL/intact cough/gag on PE). 08/12: ANGELINE overnight. Remains on the vent and sedated. On Amio gtt, A-pacing on the monitor, still hypertensive on cardene gtt, home antihypertensive was restarted. Plan for HD this am, hypernatremia too be corrected per Nephro. 08/13: Plan for SAT and SBT this am for possible extubation. Patient remains hypertensive on cardene gtt, clonidine added. 08/14: Patient s/p reintubation by anesthesia. Awake and alert following commands, not on any sedation. Remains hypertensive on amio and cardene gtt. D/w cardio plan to switch to PO Amio and to adjust antihypertensive therapy, hopefully can wean off cardene gtt. Plan to possible transfer patient to [place] [facility] as a way of getting patient into the [place] system for the needed ablation. Case [facility] to arrange 08/15: ANGELINE overnight. Patient remains stable on the vent. Still with uncontrolled hypertension despite meds increased yesterday. Patient remains on cardene gt. Cardio added minoxidil, plan is still to wean off cardene gtt. Plan for HD today 08/16: Self-extubated and was reintubated overnight due to stridor. Now on low dose sedation, following commands. D/w CCM plan to do a cuff leak today and possible start patinet on IV steroids. Since this is X2 failed extubation patient might need to be Trached. Per Case management patient was denied for [facility], no HD beds available. Patient remains on [facility] transfer list for possible inpatient transfer. 08/17: On the vent and om propofol gtt, RASS 0. Hypotensive overnight, will defer to Cardio for possible BP meds adjustment. Pending transfer to [facility]. Assessment and Plan #Neuro:Sedated -Intubated, on propofol RASS 0 -Titrate sedation for RASS 0 to -1 -AAO, following simple commands -Avoid benzodiazepine to reduce the possibility of delirium -PRN analgesia for CPOT greater than 3 -Maintenance of sleep-wake cycle #CV:Hypertension-improved #VTach Storm, AICD is on -Presented muscle spasms 2/2 to AICD discharge -S/p amio gtt, now on PO amio -Patient is currently A-pacing on the monitor, HR 70 -off cardene gtt -Hypotensive post HD overnight, s/p 750 NS bolus -Cardiology consulted, appreciate recommendations -will discuss with cardio in regards of possible meds adjustment -Continue antihypertensive therapy per Cardio, minoxidil added -Continue Blood pressure monitoring for SBP less than 160 -Continue ASA,plavix, and statin -On AC-Heparin Subq -Awaiting transfer to [place] for possible VT Ablation #Respiratory:Acute Hypoxemic Respiratory Failure -Intubated in the ED on 08/05 -Extubated and reintubated on 08/14 -08/16 Self-extubated and reintubated due to stridor -Vent setting:A/C-30%,6,12,375 -This AM ABG pending -CCM consulted, appreciate recommendations -Plan for a cuff leak this am and possibly start patient on IV steroids -VAP bundle addressed -Aspiration precaution HOB above 30 -Daily SBT and SAT trials as tolerated -Daily ABG and CXR per CCM -Continue SPO2 monitoring for SPO2 goal above 92% #GI:TF -Continue enteral Nutritiom -Nutrition consult for tube feeding -Continue PPI -Continue BR: Senokot #: ESRD on HD #Hyponatremia #Hypokalemia-resolved -Presented with severe electrolytes imbalance -Nephrology consulted, appreciate recommendations -Continue HD per nephrology -HD yesterday -Strict intake and output -Daily weight -Avoid nephrotoxic medications; Renally dose medications -Monitor and replace electrolytes as needed #Heme:Acute on Chronic Anemia of chronic disease #Acute blood loss-resolved #Thrombocytopenia (resolved) -S/p 2 unit PRBC -No s/s of any active bleeding -Trend CBC -Transfuse for hemoglobin less than 7 -Epogen per nephrology -Continue AC- heparin subq -SCDs to bilateral LE while in bed #Endo:Glycemic Control #Hypoglycemia -Was initially hypoglycemic S/p D10 for hypoglycemia -Continue SSI Q6hrs while on TF -Avoid hypoglycemia -Continue Hypoglycemic Protocol Dispo: AWAITING TRANSFER TO [facility] since 08/06/2021 The high probability of a clinically significant sudden or life-threatening deterioration of the [Respiratory,Renal,CV] and endocrine system required my full and direct attention, intervention and postoperative management. The aggregate critical care time was [40] minutes. The time is in addition to time spent performing reported procedures but includes the following: [x] 1: Data review and interpretation [x] 2: Patient assessment and monitoring of vital signs [x] 3: Documentation [x] 4: Medication orders and management Disposition Plan: ICU Total Time Spent with Patient (Minutes): 40 History Interval history: Patient seen and examined at the bedside. Intubated and on propofol gtt while awake. Per RN patient with increased agitation this am, propofol gtt was increased. Also BP dropped post HD overnight, patient received 750 IV bolus Hospitalist Physical - Constitutional Vitals: Temp Pulse Resp BP Pulse Ox 97.5 F L 70 20 114/44 97 08/17/21 09:08 08/17/21 10:11 08/17/21 09:00 08/17/21 10:11 08/17/21 09:00 General appearance: Present: no acute distress, other (Intubated and on sedati on, RASS 0 ) - EENT Eyes: Present: PERRL ENT: hearing intact - Neck Neck: Present: normal ROM - Respiratory Respiratory effort: normal Respiratory: bilateral: diminished - Cardiovascular Rhythm: regular (Paced) Heart Sounds: Present: S1 & S2 - Extremities Extremities: no ischemia, pulses intact, pulses symmetrical Extremity abnormal: edema - Peripheral Assessment Generalized Edema Type: Non-pitting Edema Degree: 2+ Capillary Refill: < 3 seconds Skin Temperature: Warm Peripheral Pulses: within normal limits - Abdominal General gastrointestinal: soft, non-tender, normal bowel sounds - Integumentary Integumentary: Present: warm, dry - Psychiatric Psychiatric: cooperative, agitated - Neurologic Neurologic: moves all extremities - Allied Health Allied health notes reviewed: nursing HEART Score - HEART Score Age: 45-65 Risk factors: > 3 risk factors or hx of atherosclerotic disease Troponin: Troponin T 0.183 ng/mL (0.00-0.029) H* D 08/05/21 18:56 Troponin: 1-3x normal limit - Critical Actions Critical Actions: 4-6 pts:12-16.6% risk of adverse cardiac event. Should be admitted Results - Labs CBC & Chem 7: 08/17/21 04:00 08/17/21 04:00 Labs: Laboratory Last Values WBC 5.2 K/mm3 (4.5-11.0) 08/17/21 04:00 RBC 3.07 M/mm3 (3.65-5.03) L 08/17/21 04:00 Hgb 8.1 gm/dl (10.1-14.3) L 08/17/21 04:00 Hct 25.0 % (30.3-42.9) L 08/17/21 04:00 MCV 81 fl (79-97) 08/17/21 04:00 MCH 26 pg (28-32) L 08/17/21 04:00 MCHC 32 % (30-34) 08/17/21 04:00 RDW 19.3 % (13.2-15.2) H 08/17/21 04:00 Plt Count 307 K/mm3 (140-440) 08/17/21 04:00 Lymph % (Auto) [employer] 08/07/21 04:00 Pierce % (Auto) [employer] Systems Engineer 08/11/21 04:00 Eos % (Auto) 2.2 % (0.0-4.3) 08/06/21 16:35 Baso % (Auto) [employer] 08/07/21 04:00 Lymph # (Auto) 0.8 K/mm3 (1.2-5.4) L 08/06/21 16:35 Pierce # (Auto) 0.7 K/mm3 (0.0-0.8) 08/06/21 16:35 Eos # (Auto) 0.1 K/mm3 (0.0-0.4) 08/06/21 16:35 Baso # (Auto) 0.1 K/mm3 (0.0-0.1) 08/06/21 16:35 Add Manual Diff Complete 08/11/21 04:00 Total Counted 100 08/11/21 04:00 Seg Neutrophils % [employer] 08/07/21 04:00 Seg Neuts % (Manual) 76.0 % (40.0-70.0) H 08/11/21 04:00 Band Neutrophils % 2.0 % 08/11/21 04:00 Lymphocytes % (Manual) 8.0 % (13.4-35.0) L 08/11/21 04:00 Reactive Lymphs % (Man) 5.0 % 08/07/21 04:00 Monocytes % (Manual) 13.0 % (0.0-7.3) H 08/11/21 04:00 Eosinophils % (Manual) 1.0 % (0.0-4.3) 08/10/21 04:00 Basophils % (Manual) 4.0 % (0.0-1.8) H 08/07/21 04:00 Metamyelocytes % 1.0 % 08/11/21 04:00 Nucleated RBC % Not Reportable 08/11/21 04:00 Seg Neutrophils # 2.6 K/mm3 (1.8-7.7) 08/06/21 16:35 Seg Neutrophils # Man 5.2 K/mm3 (1.8-7.7) 08/11/21 04:00 Band Neutrophils # 0.1 K/mm3 08/11/21 04:00 Lymphocytes # (Manual) 0.6 K/mm3 (1.2-5.4) L 08/11/21 04:00 Abs React Lymphs (Man) 0.0 K/mm3 08/11/21 04:00 Monocytes # (Manual) 0.9 K/mm3 (0.0-0.8) H 08/11/21 04:00 Eosinophils # (Manual) 0.0 K/mm3 (0.0-0.4) 08/11/21 04:00 Basophils # (Manual) 0.0 K/mm3 (0.0-0.1) 08/11/21 04:00 Metamyelocytes # 0.1 K/mm3 08/11/21 04:00 Myelocytes # 0.0 K/mm3 08/11/21 04:00 Promyelocytes # 0.0 K/mm3 08/11/21 04:00 Blast Cells # 0.0 K/mm3 08/11/21 04:00 WBC Morphology Not Reportable 08/11/21 04:00 WBC Morphology TNR 08/11/21 04:00 Hypersegmented Neuts Not Reportable 08/11/21 04:00 Hyposegmented Neuts Not Reportable 08/11/21 04:00 Hypogranular Neuts Not Reportable 08/11/21 04:00 Smudge Cells Not Reportable 08/11/21 04:00 Toxic Granulation Not Reportable 08/11/21 04:00 Toxic Vacuolation Not Reportable 08/11/21 04:00 Dohle Bodies Not Reportable 08/11/21 04:00 Pelger-Huet Anomaly Not Reportable 08/11/21 04:00 Claudio Rods Not Reportable 08/11/21 04:00 Platelet Estimate Consistent w auto 08/11/21 04:00 Clumped Platelets Not Reportable 08/11/21 04:00 Plt Clumps, EDTA Not Reportable 08/11/21 04:00 Large Platelets Not Reportable 08/11/21 04:00 Giant Platelets Not Reportable 08/11/21 04:00 Platelet Satelliting Not Reportable 08/11/21 04:00 Plt Morphology Comment Not Reportable 08/11/21 04:00 RBC Morphology Not Reportable 08/11/21 04:00 Dimorphic RBCs Not Reportable 08/11/21 04:00 Polychromasia Not Reportable 08/11/21 04:00 Hypochromasia Few 08/11/21 04:00 Poikilocytosis Not Reportable 08/11/21 04:00 Anisocytosis Not Reportable 08/11/21 04:00 Microcytosis Not Reportable 08/11/21 04:00 Macrocytosis Not Reportable 08/11/21 04:00 Spherocytes Not Reportable 08/11/21 04:00 Pappenheimer Bodies Not Reportable 08/11/21 04:00 Sickle Cells Not Reportable 08/11/21 04:00 Target Cells Few 08/11/21 04:00 Tear Drop Cells Not Reportable 08/11/21 04:00 Ovalocytes Not Reportable 08/11/21 04:00 Helmet Cells Not Reportable 08/11/21 04:00 [place] Bodies Not Reportable 08/11/21 04:00 [place] Rings Not Reportable 08/11/21 04:00 Case Cells Not Reportable 08/11/21 04:00 Bite Cells Not Reportable 08/11/21 04:00 Crenated Cell Not Reportable 08/11/21 04:00 Elliptocytes Not Reportable 08/11/21 04:00 Acanthocytes (Spur) Not Reportable 08/11/21 04:00 Rouleaux Not Reportable 08/11/21 04:00 Hemoglobin C Crystals Not Reportable 08/11/21 04:00 Schistocytes Not Reportable 08/11/21 04:00 Malaria parasites Not Reportable 08/11/21 04:00 Aleks Bodies Not Reportable 08/11/21 04:00 Hem Pathologist Commnt No 08/11/21 04:00 PT 14.2 Sec. (12.2-14.9) 08/06/21 16:35 INR 0.99 (0.87-1.13) 08/06/21 16:35 APTT 37.1 Sec. (24.2-36.6) H 08/06/21 07:26 ABG pH 7.579 (7.320-7.450) H 08/17/21 05:09 POC ABG pCO2 27.0 mmHg (32.0-48.0) L 08/17/21 05:09 ABG pCO2 41.2 mm Hg 08/09/21 04:30 POC ABG pO2 139.0 mmHg (83-108) H 08/17/21 05:09 ABG pO2 91.5 mm Hg (80.0-90.0) H 08/09/21 04:30 POC ABG HCO3 24.7 08/17/21 05:09 ABG HCO3 26.6 mmol/L (20.0-26.0) H 08/09/21 04:30 ABG O2 Saturation 99.4 (0-100) 08/17/21 05:09 ABG O2 Content 12.3 (0.0-44) 08/09/21 04:30 POC ABG Base Excess 3.0 08/17/21 05:09 ABG Base Excess 2.0 mmol/L (-2.0-3.0) 08/09/21 04:30 ABG Hemoglobin 8.1 (12.0-17.5) L 08/17/21 05:09 ABG Oxyhemoglobin 98.3 (94-98) H 08/17/21 05:09 ABG Carboxyhemoglobin 1.4 % (0.0-5.0) 08/09/21 04:30 ABG Methemoglobin 0.3 (0.0-1.5) 08/17/21 05:09 ABG Sodium 132.1 mmol/L (136.0-145.0) L 08/17/21 05:09 ABG Potassium 3.5 mmol/L (3.40-4.50) 08/17/21 05:09 ABG Chloride 99.0 mmol/L (98-107) 08/17/21 05:09 ABG Glucose 160 mg/dL (65-95) H 08/17/21 05:09 Oxyhemoglobin 95.4 % (95.0-99.0) 08/09/21 04:30 Carboxyhemoglobin 0.8 (0.5-1.5) 08/17/21 05:09 FiO2 25 % 08/09/21 04:30 FiO2 % 30.0 08/17/21 05:09 Sodium 135 mmol/L (137-145) L 08/17/21 04:00 Potassium 3.7 mmol/L (3.6-5.0) 08/17/21 04:00 Chloride 97.4 mmol/L (98-107) L 08/17/21 04:00 Carbon Dioxide 24 mmol/L (22-30) 08/17/21 04:00 Anion Gap 17 mmol/L 08/17/21 04:00 BUN 20 mg/dL (7-17) H 08/17/21 04:00 Creatinine 3.0 mg/dL (0.6-1.2) H 08/17/21 04:00 Estimated GFR 19 ml/min 08/17/21 04:00 BUN/Creatinine Ratio 7 % 08/17/21 04:00 Glucose 171 mg/dL (65-100) H 08/17/21 04:00 POC Glucose 155 mg/dL (70-105) H 08/17/21 05:12 Calcium 8.8 mg/dL (8.4-10.2) 08/17/21 04:00 Phosphorus 3.20 mg/dL (2.5-4.5) 08/17/21 04:00 Magnesium 1.80 mg/dL (1.7-2.3) 08/17/21 04:00 Total Bilirubin 0.70 mg/dL (0.1-1.2) 08/06/21 16:35 AST 18 units/L (5-40) 08/06/21 16:35 ALT 7 units/L (7-56) 08/06/21 16:35 Alkaline Phosphatase 102 units/L (35-129) 08/06/21 16:35 Troponin T 0.183 ng/mL (0.00-0.029) H* D 08/05/21 18:56 Total Protein 6.2 g/dL (6.3-8.2) L 08/06/21 16:35 Albumin 3.2 g/dL (3.9-5) L 08/06/21 16:35 Albumin/Globulin Ratio 1.1 % 08/06/21 16:35 Triglycerides 399 mg/dL (2-149) H 08/13/21 Unknown Cholesterol 170 mg/dL (50-199) 08/05/21 15:55 LDL Cholesterol Direct 106 mg/dL (50-130) 08/05/21 15:55 HDL Cholesterol 32 mg/dL (40-59) L 08/05/21 15:55 Cholesterol/HDL Ratio 5.31 % 08/05/21 15:55 TSH 7.070 mlU/mL (0.270-4.200) H 08/07/21 13:30 Arterial Blood Glucose 160 mg/dL (65-95) H 08/17/21 05:09 Arterial Blood Ionized Calcium 4.8 mg/dL (4.6-5.3) 08/15/21 05:22 Coronavirus (PCR) Negative (Negative) 08/07/21 Unknown Hepatitis A IgM Ab Non-reactive (NonReactive) 08/08/21 04:26 Hep Bs Antigen Nonreactive (Negative) 08/08/21 04:26 Hep B Core IgM Ab Non-reactive (NonReactive) 08/08/21 04:26 Hepatitis C Antibody Non-reactive (NonReactive) 08/08/21 04:26 Blood Type O POSITIVE 08/06/21 05:30 Antibody Screen Negative 08/06/21 05:30 Crossmatch See Detail 08/06/21 05:30 Active Medications - Current Medications Current Medications: Generic Name Dose Route Start Last Admin Trade Name Freq PRN Reason Stop Dose Admin Acetaminophen 650 mg 08/06/21 16:30 08/06/21 16:30 Acetaminophen 650 Mg Rect Supp IA 650 mg Q6H PRN Administration Pain, Mild (1-3) Albuterol 2.5 mg 08/05/21 20:59 Albuterol 2.5 Mg/3 Ml Nebu IH Q4HRT PRN Shortness Of Breath Amiodarone HCl 400 mg 08/14/21 11:00 08/17/21 10:11 Amiodarone 200 Mg Tab PO Not Given BID JODI Lipase/Protease/Amylase 1 each 08/07/21 09:47 Lipase 10,500/Protease 25,000/Amylase 43,750 (Units) Dr Thomas FEEDTUBE PRN PRN For Clogged Feeding Tube Aspirin 81 mg 08/07/21 10:00 08/17/21 10:09 Aspirin 81 Mg Tab Chew PO 81 mg QDAY JODI Administration Atorvastatin Calcium 80 mg 08/05/21 22:00 08/16/21 22:08 Atorvastatin 40 Mg Tab PO 80 mg QHS JODI Administration Clonidine HCl 0.3 mg 08/15/21 14:00 08/17/21 05:30 Clonidine 0.1 Mg Tab PO 0.3 mg Q8HR JODI Administration Clopidogrel Bisulfate 75 mg 08/10/21 10:00 08/17/21 10:08 Clopidogrel 75 Mg Tab PO 75 mg QDAY JODI Administration Dextrose 25 ml 08/06/21 15:08 08/09/21 05:26 Dextrose 50% In Water (25gm) 50 Ml Syringe IV 15 ml Q30MIN PRN Administration Hypoglycemia Protocol Famotidine 10 mg 08/09/21 22:00 08/17/21 10:09 Famotidine 10 Mg Tab PO 10 mg BID JODI Administration Fentanyl 50 mcg 08/05/21 17:25 08/16/21 15:15 Fentanyl 100 Mcg/2 Ml Inj IV 50 mcg Q10MIN PRN Administration ANALGESIA Fentanyl 50 mcg 08/16/21 11:48 08/17/21 00:41 Fentanyl 100 Mcg/2 Ml Inj IV 50 mcg Q2H PRN Administration Pain, Moderate (4-6) Heparin Sodium (Porcine) 5,000 unit 08/11/21 10:00 08/17/21 10:08 Heparin 5,000 Unit/1 Ml Vial SUB-Q 5,000 unit Q12HR JODI Administration Hydralazine HCl 10 mg 08/06/21 04:21 08/15/21 07:53 Hydralazine 20 Mg/1 Ml Inj IV 10 mg Q6HR PRN Administration Hypertension Hydralazine HCl 100 mg 08/14/21 10:00 08/17/21 05:31 Hydralazine 100 Mg Tab PO 100 mg Q8HR JODI Administration Hydrophilic Ointment 1 applic 08/05/21 17:25 Lip Therapy Vaseline TP Q2HR PRN Dry Lips Fentanyl Citrate 2,000 mcg in 100 mls @ 3.213 mls/hr 08/05/21 18:00 08/10/21 19:10 Fentanyl Drip Premix IV 0 mcg/kg/hr TITR JODI 0 mls/hr Titration Protocol 1 MCG/KG/HR Propofol 1,000 mg in 100 mls @ 1.928 mls/hr 08/06/21 17:00 08/17/21 09:00 Diprivan 10 Mg/Ml IV 25 mcg/kg/min TITR JODI 9.638 mls/hr Titration Protocol 5 MCG/KG/MIN Nicardipine HCl 50 mg/ Sodium 250 mls @ 25 mls/hr 08/10/21 16:00 08/16/21 07:05 Chloride IV 0 mg/hr TITR JODI 0 mls/hr Titration Protocol 5 MG/HR Sodium Chloride 100 mls @ 999 mls/hr 08/14/21 17:06 Nacl 0.9% IV GLENDY PRN Hypotension Isosorbide Dinitrate 20 mg 08/11/21 14:00 08/17/21 05:31 Isosorbide Dinitrate 20 Mg Tab PO 20 mg Q8HR [facility] Administration Losartan Potassium 100 mg 08/12/21 10:00 08/17/21 10:10 Losartan 25 Mg Tab PO Not Given DAILY [facility] Methylprednisolone Sodium Succinate 40 mg 08/16/21 13:00 08/17/21 05:31 Methylprednisolone Sod Succinate 40 Mg/1 Ml Inj IV 40 mg Q6HR [facility] Administration Metoclopramide HCl 5 mg 08/05/21 21:03 Metoclopramide 10 Mg/2 Ml Inj IV Q6H PRN Nausea And Vomiting Metoprolol Tartrate 100 mg 08/12/21 12:00 08/17/21 10:11 Metoprolol Tartrate 50 Mg Tab PO Not Given BID [facility] Minoxidil 5 mg 08/15/21 10:00 08/17/21 10:14 Minoxidil 2.5 Mg Tab PO Not Given BID [facility] Multi-Ingred Cream/Lotion/Oil/Oint 1 applic 08/05/21 17:25 Mineral Oil/Petrolatum, White Ophth Oint 3.5 Gm OU Q4HR PRN Dry Eye(s) Ondansetron HCl 4 mg 08/05/21 21:03 Ondansetron 4 Mg/2 Ml Inj IV Q8H PRN Nausea And Vomiting Oxycodone/Acetaminophen 1 tab 08/05/21 21:03 Oxycodone /Acetaminophen 5-325mg Tab PO Q6H PRN Pain, Moderate (4-6) Senna 8.8 mg 08/07/21 13:00 08/17/21 10:14 Sennosides Oral Liqd 8.8 Mg/5 Ml Oral Liqd FEEDTUBE Not Given BID JODI Simple Syrup 15 ml 08/07/21 09:47 Simple Syrup 15 Ml FEEDTUBE PRN PRN Hypoglycemia Simple Syrup 30 ml 08/07/21 09:47 Simple Syrup 15 Ml FEEDTUBE PRN PRN Hypoglycemia Sodium Bicarbonate 325 mg 08/07/21 09:47 Sodium Bicarbonate 325 Mg Tab FEEDTUBE PRN PRN For Clogged Feeding Tube Sodium Chloride 10 ml 08/05/21 22:00 08/17/21 10:13 Sodium Chloride 0.9% 10 Ml Flush Syringe IV 10 ml BID JODI Administration Sodium Chloride 10 ml 08/05/21 21:03 Sodium Chloride 0.9% 10 Ml Flush Syringe IV PRN PRN LINE FLUSH Nutrition/Malnutrition Assess - Dietary Evaluation Nutrition/Malnutrition Findings: Nutrition Notes Start: 08/07/21 09:12 Freq: Status: Active Protocol: Document 08/16/21 12:51 [id number] (Rec: 08/16/21 13:04 ILSA [id number]) Nutrition Notes Initial or Follow up Reassessment Current Diagnosis CKD (stage V CKD),Coronary Artery Disease,Diabetes, Hypertension,Heart Failure Other Pertinent Diagnosis Sustained ventricular tachycardia, anemia Current Diet TF - Nepro at 32ml/hr Labs/Tests Na 132 BUN 26 Cr 3.9 Pertinent Medications Propofol at 3.855ml/hr ( provides 102 kcal), Senokot Height 5 ft 2 in Weight 64.25 kg [place] Body Weight (kg) 50.00 BMI 25.9 Weight Status Appropriate Subjective/Other Information Pt self-extubated this am, however, was re-intubated and remains on vent support. TF off at time of visit (12:18). Pending transfer to [place] for ablation. Burn Absent Trauma Absent #1 Nutrition Diagnosis Inadequate oral intake Diagnosis Progress(for reassessment Continues documentation) Is patient on ventilator? Yes Is Patient Ambulatory and/or Out of Bed No REE-([facility]-confined to bed) 1403.892 Calculation Used for Recommendations [facility] Additional Notes Pro needs >1.2g/kg: >77g/day Fluid needs 1-1.5L/day Nutrition Intervention Nutrition Support: Resume TF when medically feasible; consider 50ml water flush q4h until hyponatremia resolves, then 150ml q4h. Goal #1 Resume TF to meet nutrient needs Follow-Up By: 08/19/21 Additional Comments F/U: TF re-start, Na lab/water flushes, resp status
--- NOTE | 2021-08-17 11:28 | Progress Note ---
Assessment and Plan - Patient Problems (1) Hypokalemia Current Visit: Yes Status: Acute Plan to address problem: Potassium is back to normal. Follow-up (2) End stage renal disease on dialysis Current Visit: Yes Status: Chronic Plan to address problem: Hemodialysis on a Thursday, Thursday and Thursday schedule. (3) Anemia in end-stage renal disease Current Visit: Yes Status: Acute Plan to address problem: Give erythropoietin on dialysis and follow-up hemoglobin level (4) Sustained ventricular tachycardia Current Visit: Yes Status: Acute Plan to address problem: Continue management by [facility]. Awaiting transfer to [facility] for VT ablation Subjective Date of service: 08/17/21 Principal diagnosis: Recurrent VT Interval history: Patient seen lying in bed in the ICU. She is on the ventilator. She is awake and communicating nonverbally. She is not on vasopressors. Objective - Exam Narrative Exam: Middle-aged female lying in bed intubated on ventilator HEENT: NCAT, endotracheal tube intact Neck: Supple, no venous distention CVS: S1S2 RRR with no murmur, rub or gallop Chest: Clear to auscultation Abdomen: Protuberant, soft, nontender, no organomegaly, bowel sounds are present Extremities: No edema Neuro: Awake, alert, communicating nonverbally - Vital Signs Vital signs: Vital Signs - 12hr 08/16/21 08/17/21 08/17/21 23:31 00:00 00:10 Temperature 98.0 F Pulse Rate 70 70 70 Pulse Rate [ 70 From Monitor] Respiratory 14 17 Rate Blood Pressure 144/44 O2 Sat by Pulse 100 100 100 Oximetry 08/17/21 08/17/21 08/17/21 00:30 01:00 01:30 Temperature Pulse Rate 70 70 70 Pulse Rate [ From Monitor] Respiratory 14 14 11 L Rate Blood Pressure O2 Sat by Pulse 100 100 100 Oximetry 08/17/21 08/17/21 08/17/21 02:00 02:30 03:00 Temperature Pulse Rate 70 70 70 Pulse Rate [ From Monitor] Respiratory 13 10 L 12 Rate Blood Pressure O2 Sat by Pulse 100 100 100 Oximetry 08/17/21 08/17/21 08/17/21 03:30 04:00 04:20 Temperature 97.7 F Pulse Rate 70 70 70 Pulse Rate [ 70 From Monitor] Respiratory 11 L 12 Rate Blood Pressure 134/48 O2 Sat by Pulse 100 100 100 Oximetry 08/17/21 08/17/21 08/17/21 04:30 05:00 05:30 Temperature Pulse Rate 70 70 70 Pulse Rate [ From Monitor] Respiratory 11 L 11 L 12 Rate Blood Pressure 138/52 O2 Sat by Pulse 100 100 100 Oximetry 08/17/21 08/17/21 08/17/21 05:31 06:00 06:30 Temperature Pulse Rate 70 118 H 70 Pulse Rate [ From Monitor] Respiratory 13 11 L Rate Blood Pressure 138/52 O2 Sat by Pulse 100 100 Oximetry 08/17/21 08/17/21 08/17/21 07:00 07:29 07:30 Temperature Pulse Rate 70 70 70 Pulse Rate [ From Monitor] Respiratory 13 12 Rate Blood Pressure 144/44 143/45 164/50 O2 Sat by Pulse 100 100 100 Oximetry 08/17/21 08/17/21 08/17/21 08:00 08:30 09:00 Temperature Pulse Rate 70 161 H Pulse Rate [ From Monitor] Respiratory 13 20 Rate Blood Pressure 135/49 131/47 128/47 O2 Sat by Pulse 99 97 97 Oximetry 08/17/21 08/17/21 08/17/21 09:08 10:10 10:11 Temperature 97.5 F L Pulse Rate 70 70 Pulse Rate [ From Monitor] Respiratory Rate Blood Pressure 114/44 114/44 O2 Sat by Pulse Oximetry - Lab 08/17/21 04:00 08/17/21 04:00 Most recent lab results ABG pH 7.579 (7.320-7.450) H 08/17/21 05:09 ABG pCO2 41.2 mm Hg 08/09/21 04:30 ABG pO2 91.5 mm Hg (80.0-90.0) H 08/09/21 04:30 ABG HCO3 26.6 mmol/L (20.0-26.0) H 08/09/21 04:30 ABG O2 Saturation 99.4 (0-100) 08/17/21 05:09 Calcium 8.8 mg/dL (8.4-10.2) 08/17/21 04:00 Phosphorus 3.20 mg/dL (2.5-4.5) 08/17/21 04:00 Magnesium 1.80 mg/dL (1.7-2.3) 08/17/21 04:00 Medications & Allergies - Medications Allergies/Adverse Reactions: Allergies No Known Allergies Allergy (Unverified 07/10/21 20:57) Home Medications: Home Medications Medication Instructions Recorded Confirmed Last Taken Type Icosapent Ethyl [Vascepa] 2 gm PO BID 07/12/21 07/12/21 Unknown History Losartan [Cozaar] 25 mg PO BID 07/12/21 07/12/21 Unknown History ALBUTEROL NEB's [Proventil 0.083% 2.5 mg IH Q4HRT PRN nebu 07/15/21 Unknown Rx NEBS] Acetaminophen [Acetaminophen 650 mg LA Q4H PRN supp.rect 07/15/21 Unknown Rx SUPPOS] Acetaminophen [Acetaminophen TAB] 650 mg PO Q4H PRN tablet 07/15/21 Unknown Rx Amiodarone [Cordarone 200 MG TAB] 200 mg PO BID tablet 07/15/21 Unknown Rx AtorvaSTATin [Lipitor] 80 mg PO QHS tablet 07/15/21 Unknown Rx Clopidogrel [Plavix] 75 mg PO QDAY tablet 07/15/21 Unknown Rx Dextrose 50% in Water [D50W (25GM) 50 ml IV Q30MIN PRN syringe 07/15/21 Unknown Rx Syringe] Free Water 60 ml PO Q4HR oral.liqd 07/15/21 Unknown Rx Isosorbide Dinitrate [Isordil] 5 mg PO Q8HR tablet 07/15/21 Unknown Rx Lipase/Protease/Amylase [Pancreaze 1 each FEEDTUBE PRN PRN capsule 07/15/[address] 10,500 Unit] Lispro Insulin [HumaLOG] 0 unit SUB-Q Q6HR units 07/15/21 Unknown Rx Metoprolol [Lopressor TAB] 25 mg PO TID tablet 07/15/21 Unknown Rx Simple Syrup 30 ml FEEDTUBE PRN PRN oral.liqd 07/15/21 Unknown Rx hydrALAZINE [Apresoline INJ] 10 mg IV Q6H PRN vial 07/15/21 Unknown Rx Active Medications: Generic Name Dose Route Start Last Admin Trade Name Freq PRN Reason Stop Dose Admin Acetaminophen 650 mg 08/06/21 16:30 08/06/21 16:30 Acetaminophen 650 Mg Rect Supp LA 650 mg Q6H PRN Administration Pain, Mild (1-3) Albuterol 2.5 mg 08/05/21 20:59 Albuterol 2.5 Mg/3 Ml Nebu IH Q4HRT PRN Shortness Of Breath Amiodarone HCl 400 mg 08/14/21 11:00 08/17/21 10:11 Amiodarone 200 Mg Tab PO Not Given BID JODI Lipase/Protease/Amylase 1 each 08/07/21 09:47 Lipase 10,500/Protease 25,000/Amylase 43,750 (Units) Dr Thomas FEEDTUBE PRN PRN For Clogged Feeding Tube Aspirin 81 mg 08/07/21 10:00 08/17/21 10:09 Aspirin 81 Mg Tab Chew PO 81 mg QDAY JODI Administration Atorvastatin Calcium 80 mg 08/05/21 22:00 08/16/21 22:08 Atorvastatin 40 Mg Tab PO 80 mg QHS JODI Administration Clonidine HCl 0.3 mg 08/15/21 14:00 08/17/21 05:30 Clonidine 0.1 Mg Tab PO 0.3 mg Q8HR JODI Administration Clopidogrel Bisulfate 75 mg 08/10/21 10:00 08/17/21 10:08 Clopidogrel 75 Mg Tab PO 75 mg QDAY JODI Administration Dextrose 25 ml 08/06/21 15:08 08/09/21 05:26 Dextrose 50% In Water (25gm) 50 Ml Syringe IV 15 ml Q30MIN PRN Administration Hypoglycemia Protocol Famotidine 10 mg 08/09/21 22:00 08/17/21 10:09 Famotidine 10 Mg Tab PO 10 mg BID JODI Administration Fentanyl 50 mcg 08/05/21 17:25 08/16/21 15:15 Fentanyl 100 Mcg/2 Ml Inj IV 50 mcg Q10MIN PRN Administration ANALGESIA Fentanyl 50 mcg 08/16/21 11:48 08/17/21 00:41 Fentanyl 100 Mcg/2 Ml Inj IV 50 mcg Q2H PRN Administration Pain, Moderate (4-6) Heparin Sodium (Porcine) 5,000 unit 08/11/21 10:00 08/17/21 10:08 Heparin 5,000 Unit/1 Ml Vial SUB-Q 5,000 unit Q12HR JODI Administration Hydralazine HCl 10 mg 08/06/21 04:21 08/15/21 07:53 Hydralazine 20 Mg/1 Ml Inj IV 10 mg Q6HR PRN Administration Hypertension Hydralazine HCl 100 mg 08/14/21 10:00 08/17/21 05:31 Hydralazine 100 Mg Tab PO 100 mg Q8HR [facility] Administration Hydrophilic Ointment 1 applic 08/05/21 17:25 Lip Therapy Vaseline TP Q2HR PRN Dry Lips Fentanyl Citrate 2,000 mcg in 100 mls @ 3.213 mls/hr 08/05/21 18:00 08/10/21 19:10 Fentanyl Drip Premix IV 0 mcg/kg/hr TITR JODI 0 mls/hr Titration Protocol 1 MCG/KG/HR Propofol 1,000 mg in 100 mls @ 1.928 mls/hr 08/06/21 17:00 08/17/21 10:53 Diprivan 10 Mg/Ml IV 25 mcg/kg/min TITR JODI 9.638 mls/hr Administration Protocol 5 MCG/KG/MIN Nicardipine HCl 50 mg/ Sodium 250 mls @ 25 mls/hr 08/10/21 16:00 08/16/21 07:05 Chloride IV 0 mg/hr TITR JODI 0 mls/hr Titration Protocol 5 MG/HR Sodium Chloride 100 mls @ 999 mls/hr 08/14/21 17:06 Nacl 0.9% IV GLENDY PRN Hypotension Isosorbide Dinitrate 20 mg 08/11/21 14:00 08/17/21 05:31 Isosorbide Dinitrate 20 Mg Tab PO 20 mg Q8HR [facility] Administration Losartan Potassium 100 mg 08/12/21 10:00 08/17/21 10:10 Losartan 25 Mg Tab PO Not Given DAILY [facility] Methylprednisolone Sodium Succinate 40 mg 08/16/21 13:00 08/17/21 05:31 Methylprednisolone Sod Succinate 40 Mg/1 Ml Inj IV 40 mg Q6HR [facility] Administration Metoclopramide HCl 5 mg 08/05/21 21:03 Metoclopramide 10 Mg/2 Ml Inj IV Q6H PRN Nausea And Vomiting Metoprolol Tartrate 100 mg 08/12/21 12:00 08/17/21 10:11 Metoprolol Tartrate 50 Mg Tab PO Not Given BID [facility] Minoxidil 5 mg 08/15/21 10:00 08/17/21 10:14 Minoxidil 2.5 Mg Tab PO Not Given BID [facility] Multi-Ingred Cream/Lotion/Oil/Oint 1 applic 08/05/21 17:25 Mineral Oil/Petrolatum, White Ophth Oint 3.5 Gm OU Q4HR PRN Dry Eye(s) Ondansetron HCl 4 mg 08/05/21 21:03 Ondansetron 4 Mg/2 Ml Inj IV Q8H PRN Nausea And Vomiting Oxycodone/Acetaminophen 1 tab 08/05/21 21:03 Oxycodone /Acetaminophen 5-325mg Tab PO Q6H PRN Pain, Moderate (4-6) Senna 8.8 mg 08/07/21 13:00 08/17/21 10:14 Sennosides Oral Liqd 8.8 Mg/5 Ml Oral Liqd FEEDTUBE Not Given BID JODI Simple Syrup 15 ml 08/07/21 09:47 Simple Syrup 15 Ml FEEDTUBE PRN PRN Hypoglycemia Simple Syrup 30 ml 08/07/21 09:47 Simple Syrup 15 Ml FEEDTUBE PRN PRN Hypoglycemia Sodium Bicarbonate 325 mg 08/07/21 09:47 Sodium Bicarbonate 325 Mg Tab FEEDTUBE PRN PRN For Clogged Feeding Tube Sodium Chloride 10 ml 08/05/21 22:00 08/17/21 10:13 Sodium Chloride 0.9% 10 Ml Flush Syringe IV 10 ml BID JODI Administration Sodium Chloride 10 ml 08/05/21 21:03 Sodium Chloride 0.9% 10 Ml Flush Syringe IV PRN PRN LINE FLUSH
--- NOTE | 2021-08-17 12:00 | Progress Note ---
Assessment and Plan Patient is a 60-year-old female with recurrent V. tach, end-stage renal disease, s/p ICD, and recurrent severe hypokalemia VT Storm Recurrent AICD Discharges CAD s/p PCI (07/17/2021) Accelerated HTN ESRD on HD Hyponatremia Severe Hypokalemia (POA, resolved) Anemia Thrombocytopenia Type 2 WA HTN H/o CVA Plan: Currently waiting bed availability at [place] for transfer for VT ablation Continue aspirin, Plavix, Lipitor Continue losartan 100 mg p.o. daily and metoprolol 100 mg p.o. twice daily,hydralazine 100 mg p.o.Q8hrs,amio 400 mg p.o. twice daily,minoxidil 5 mg p.o. twice daily Nicardipine has been stopped Continue clonidine 0.3 mg p.o. every 8 hours Subjective Date of service: 08/17/21 Principal diagnosis: Recurrent VT Interval history: on vent Objective Vital Signs Temp Pulse Pulse Resp BP Pulse Ox Pulse Ox 08/17/21 11:00 70 10 L 122/48 99 08/17/21 10:30 70 12 122/48 99 08/17/21 10:11 70 114/44 08/17/21 10:10 70 114/44 08/17/21 10:00 70 12 114/44 81 L 08/17/21 09:30 70 11 L 126/56 99 08/17/21 09:08 97.5 F L 08/17/21 09:00 161 H 20 128/47 97 08/17/21 08:30 70 13 131/47 97 08/17/21 08:00 70 13 135/49 97 08/17/21 07:30 70 12 164/50 100 08/17/21 07:29 70 143/45 100 08/17/21 07:00 70 13 144/44 100 08/17/21 06:30 70 11 L 100 08/17/21 06:00 118 H 13 100 08/17/21 05:31 70 138/52 08/17/21 05:30 70 12 138/52 100 08/17/21 05:00 70 11 L 100 08/17/21 04:30 70 11 L 100 08/17/21 04:20 70 134/48 100 08/17/21 04:00 97.7 F 70 70 12 100 08/17/21 03:30 70 11 L 100 08/17/21 03:00 70 12 100 08/17/21 02:30 70 10 L 100 08/17/21 02:00 70 13 100 08/17/21 01:30 70 11 L 100 08/17/21 01:00 70 14 100 08/17/21 00:30 70 14 100 08/17/21 00:10 70 144/44 100 08/17/21 00:00 98.0 F 70 70 17 100 08/16/21 23:31 70 14 100 08/16/21 23:01 70 12 100 08/16/21 23:00 70 12 100 08/16/21 22:31 74 21 100 08/16/21 22:08 70 149/50 08/16/21 22:07 70 148/48 08/16/21 22:01 70 15 100 08/16/21 21:45 97.9 F 70 18 160/52 100 08/16/21 21:31 70 11 L 100 08/16/21 21:15 70 170/54 08/16/21 21:01 70 14 100 08/16/21 21:00 70 126/45 08/16/21 20:45 70 133/46 08/16/21 20:30 70 13 141/49 100 08/16/21 20:21 70 132/89 100 08/16/21 20:15 72 138/48 08/16/21 20:01 70 12 100 08/16/21 20:00 97.9 F 70 70 12 134/48 100 08/16/21 19:45 70 139/49 08/16/21 19:31 70 14 100 08/16/21 19:30 70 132/50 08/16/21 19:15 70 145/48 08/16/21 19:01 70 12 100 08/16/21 19:00 70 154/52 08/16/21 18:45 70 161/54 08/16/21 18:30 70 168/59 08/16/21 18:15 97.9 F 78 16 172/86 100 08/16/21 18:00 70 11 L 172/65 100 08/16/21 17:31 70 12 166/54 100 08/16/21 17:01 70 11 L 163/56 100 08/16/21 16:36 97.4 F L 08/16/21 16:31 70 12 159/52 100 08/16/21 16:01 70 12 168/54 100 08/16/21 16:00 70 70 12 100 08/16/21 15:31 70 13 107/77 100 08/16/21 15:20 70 179/61 08/16/21 15:17 70 181/64 98 08/16/21 15:16 70 179/61 08/16/21 15:01 70 12 146/59 100 08/16/21 14:31 70 14 146/59 100 08/16/21 14:00 70 13 128/56 100 08/16/21 13:30 70 13 119/54 100 08/16/21 13:01 70 12 115/50 99 08/16/21 12:31 70 12 139/54 100 08/16/21 12:01 70 12 179/54 99 08/16/21 12:00 70 70 12 99 Pulse Ox Pulse Ox Pulse Ox 08/17/21 11:00 08/17/21 10:30 08/17/21 10:11 08/17/21 10:10 08/17/21 10:00 08/17/21 09:30 08/17/21 09:08 08/17/21 09:00 08/17/21 08:30 08/17/21 08:00 08/17/21 07:30 08/17/21 07:29 08/17/21 07:00 08/17/21 06:30 08/17/21 06:00 08/17/21 05:31 08/17/21 05:30 08/17/21 05:00 08/17/21 04:30 08/17/21 04:20 08/17/21 04:00 08/17/21 03:30 08/17/21 03:00 08/17/21 02:30 08/17/21 02:00 08/17/21 01:30 08/17/21 01:00 08/17/21 00:30 08/17/21 00:10 08/17/21 00:00 08/16/21 23:31 08/16/21 23:01 08/16/21 23:00 08/16/21 22:31 08/16/21 22:08 08/16/21 22:07 08/16/21 22:01 08/16/21 21:45 99 98 98 08/16/21 21:31 08/16/21 21:15 08/16/21 21:01 08/16/21 21:00 08/16/21 20:45 08/16/21 20:30 08/16/21 20:21 08/16/21 20:15 08/16/21 20:01 08/16/21 20:00 08/16/21 19:45 08/16/21 19:31 08/16/21 19:30 08/16/21 19:15 08/16/21 19:01 08/16/21 19:00 08/16/21 18:45 08/16/21 18:30 08/16/21 18:15 99 98 98 08/16/21 18:00 08/16/21 17:31 08/16/21 17:01 08/16/21 16:36 08/16/21 16:31 08/16/21 16:01 08/16/21 16:00 08/16/21 15:31 08/16/21 15:20 08/16/21 15:17 08/16/21 15:16 08/16/21 15:01 08/16/21 14:31 08/16/21 14:00 08/16/21 13:30 08/16/21 13:01 08/16/21 12:31 08/16/21 12:01 08/16/21 12:00 - Physical Examination General: Other (intubated) HEENT: Positive: Normocephaly, Mucus Membranes Dry Neck: Positive: neck supple, trachea midline. Negative: JVD/HJR Cardiac: Positive: Reg Rate and Rhythm Lungs: Positive: clear to auscultation Neuro: Positive: Other (intubated) Abdomen: Positive: Soft Skin: Negative: Rash Musculoskeletal: No Fluid Collection Extremities: Present: lower extr. pulses. Absent: edema - Labs and Meds CBC 08/17/21 Range/Units 04:00 WBC 5.2 (4.5-11.0) K/mm3 RBC 3.07 L (3.65-5.03) M/mm3 Hgb 8.1 L (10.1-14.3) gm/dl Hct 25.0 L (30.3-42.9) % Plt Count 307 (140-440) K/mm3 Comprehensive Metabolic Panel 08/17/21 Range/Units 04:00 Sodium 135 L (137-145) mmol/L Potassium 3.7 (3.6-5.0) mmol/L Chloride 97.4 L (98-107) mmol/L Carbon Dioxide 24 (22-30) mmol/L BUN 20 H (7-17) mg/dL Creatinine 3.0 H (0.6-1.2) mg/dL Glucose 171 H (65-100) mg/dL Calcium 8.8 (8.4-10.2) mg/dL - Imaging and Cardiology EKG: report reviewed, image reviewed Echo: report reviewed Cardiac cath: report reviewed - Telemetry EKG Rhythm: Paced - EKG Sinus rhythms and dysrhythmias: sinus rhythm Repolarization changes or abnormalities: Q-T interval prolongation Myocardial infarction: anterior WA (old age or i Pacemaker: atrial pacing w/capture - Allied health notes Allied health notes reviewed: nursing
[2021-08-17] MEDS ORDERED: INSULIN REGULAR, HUMAN 100 UNITS/1 ML ONE (13:12)
[2021-08-17] MEDS ORDERED: DEXTROSE 50% IN WATER (25GM) 50 ML SYRINGE IV PRN (18:00)
[2021-08-18] MEDS: INSULIN REGULAR, HUMAN 100 UNITS/1 ML SUB-Q SCH ×4 (00:43→18:02)
[2021-08-18] MEDS: methylPREDNISolone Sod Succinate 40 MG/1 ML INJ IV SCH ×4 (00:43→18:06)
[2021-08-18 05:25] LABS: Hematocrit 22.7 % (30.3-42.9); Hemoglobin 7.5 gm/dl (10.1-14.3); Mean Corpuscular HGB Conc 33 % (30-34); Mean Corpuscular Volume 81 fl (79-97); Platelet Count 366 K/mm3 (140-440); Red Blood Count 2.82 M/mm3 (3.65-5.03); Red Cell Distribution Width 18.9 % (13.2-15.2)
[2021-08-18 05:46] LABS: Calcium 9.3 mg/dL (8.4-10.2)
[2021-08-18] MEDS: cloNIDine 0.1 MG TAB PO SCH ×3 (06:19→22:01)
[2021-08-18] MEDS: hydrALAZINE 100 MG TAB PO SCH ×3 (06:20→22:01)
[2021-08-18] MEDS: ISOSORBIDE DINITRATE 20 MG TAB PO SCH ×3 (06:20→22:02)
--- NOTE | 2021-08-18 09:36 | Progress Note ---
Assessment and Plan - Patient Problems (1) Acute respiratory failure Current Visit: Yes Status: Acute (2) Hypokalemia Current Visit: Yes Status: Acute (3) Sustained ventricular tachycardia Current Visit: Yes Status: Acute (4) VT (ventricular tachycardia) Current Visit: Yes Status: Acute (5) Anemia Current Visit: Yes Status: Chronic Qualifiers: Anemia type: due to chronic kidney disease (6) End stage renal disease on dialysis Current Visit: Yes Status: Chronic (7) Diabetes Current Visit: No Status: Acute (8) Respiratory failure Current Visit: No Status: Acute Qualifiers: Chronicity: acute Respiratory failure complication: hypoxia Qualified Code(s): J96.01 - Acute respiratory failure with hypoxia (9) Stridor Current Visit: Yes Status: Acute Subjective Principal diagnosis: Recurrent VT Interval history: on vent awake lips less swollen still on steroids Objective Vital Signs - 12hr 08/17/21 08/17/21 08/17/21 22:00 22:30 23:00 Temperature Pulse Rate 70 70 70 Respiratory 10 L 12 10 L Rate Blood Pressure 97/47 98/42 110/41 O2 Sat by Pulse 100 100 100 Oximetry 08/17/21 08/17/21 08/17/21 23:10 23:25 23:30 Temperature Pulse Rate 70 70 70 Respiratory 10 L 11 L Rate Blood Pressure 110/41 110/41 O2 Sat by Pulse 100 100 Oximetry 08/18/21 08/18/21 08/18/21 00:00 00:05 00:30 Temperature 97.7 F Pulse Rate 70 70 70 Respiratory 12 13 Rate Blood Pressure 127/46 124/51 127/46 O2 Sat by Pulse 100 100 100 Oximetry 08/18/21 08/18/21 08/18/21 01:00 01:30 02:00 Temperature Pulse Rate 70 70 70 Respiratory 10 L 11 L 10 L Rate Blood Pressure 146/47 118/65 137/56 O2 Sat by Pulse 96 100 100 Oximetry 08/18/21 08/18/21 08/18/21 02:30 03:00 03:30 Temperature Pulse Rate 70 70 70 Respiratory 10 L 11 L 10 L Rate Blood Pressure 154/82 154/82 147/45 O2 Sat by Pulse 100 100 100 Oximetry 08/18/21 08/18/21 08/18/21 04:00 04:10 04:30 Temperature 97.8 F Pulse Rate 70 70 70 Respiratory 10 L 11 L Rate Blood Pressure 150/47 150/47 134/44 O2 Sat by Pulse 100 100 100 Oximetry 08/18/21 08/18/21 08/18/21 05:00 05:30 06:00 Temperature Pulse Rate 70 70 70 Respiratory 11 L 12 11 L Rate Blood Pressure 134/44 120/30 127/38 O2 Sat by Pulse 100 100 100 Oximetry 08/18/21 08/18/21 08/18/21 06:19 06:20 06:30 Temperature Pulse Rate 70 70 70 Respiratory 12 Rate Blood Pressure 130/64 130/65 120/30 O2 Sat by Pulse 100 Oximetry 08/18/21 08/18/21 08/18/21 07:00 07:28 07:30 Temperature 99.4 F Pulse Rate 70 70 Respiratory 11 L 12 Rate Blood Pressure 118/99 118/99 O2 Sat by Pulse 100 99 Oximetry 08/18/21 08/18/21 08/18/21 07:40 08:00 08:30 Temperature Pulse Rate 70 70 70 Respiratory 9 L 9 L Rate Blood Pressure 94/73 116/45 117/75 O2 Sat by Pulse 100 100 100 Oximetry Constitutional: alert, other (intubated ) Eyes: non-icteric ENT: other (orally intubated, lips swollen) Neck: supple Effort: normal Ascultation: Bilateral: clear Percussion: Bilateral: not dull Cardiovascular: regular rate and rhythm (no mrg) Gastrointestinal: normoactive bowel sounds, soft, non-tender, non-distended Integumentary: normal Extremities: no cyanosis, no edema, pink and warm Neurologic: other (follows commands) Psychiatric: other (unable to assess) CBC and BMP: 08/18/21 04:00 08/18/21 04:00 ABG, PT/INR, D-dimer: ABG ABG pH 7.579 (7.320-7.450) H 08/17/21 05:09 POC ABG pCO2 27.0 mmHg (32.0-48.0) L 08/17/21 05:09 ABG pCO2 41.2 mm Hg 08/09/21 04:30 POC ABG pO2 139.0 mmHg (83-108) H 08/17/21 05:09 ABG pO2 91.5 mm Hg (80.0-90.0) H 08/09/21 04:30 POC ABG HCO3 24.7 08/17/21 05:09 ABG O2 Saturation 99.4 (0-100) 08/17/21 05:09 PT/INR, D-dimer PT 14.2 Sec. (12.2-14.9) 08/06/21 16:35 INR 0.99 (0.87-1.13) 08/06/21 16:35 Abnormal lab findings: Abnormal Labs 08/05/21 08/05/21 08/05/21 15:55 15:55 18:50 WBC 3.7 L RBC 2.98 L Hgb 7.5 L Hct 23.8 L MCH 25 L RDW 18.9 H Plt Count 134 L Lymph % (Auto) [place] % (Auto) Lymph # (Auto) Seg Neutrophils % Seg Neuts % (Manual) Lymphocytes % (Manual) Monocytes % (Manual) 18.0 H Eosinophils % (Manual) Basophils % (Manual) 2.0 H Seg Neutrophils # Seg Neutrophils # Man Lymphocytes # (Manual) 0.9 L Monocytes # (Manual) APTT ABG pH 7.523 H POC ABG pCO2 POC ABG pO2 ABG pO2 47.1 L ABG HCO3 34.6 H ABG O2 Saturation 85.4 L ABG Base Excess 10.8 H ABG Hemoglobin 7.3 L ABG Oxyhemoglobin ABG Sodium ABG Potassium ABG Chloride ABG Glucose Oxyhemoglobin 83.6 L Carboxyhemoglobin Sodium Potassium 2.7 L* Chloride 93.8 L Carbon Dioxide 33 H BUN Creatinine 2.8 H Glucose 124 H POC Glucose Calcium 8.2 L Phosphorus ALT < 5 L Troponin T 0.126 H* Total Protein Albumin 3.5 L Triglycerides 202 H HDL Cholesterol 32 L TSH Arterial Blood Glucose Crossmatch 08/05/21 08/05/21 08/06/21 18:56 Unknown 04:20 WBC RBC Hgb Hct MCH RDW Plt Count Lymph % (Auto) [place] % (Auto) Lymph # (Auto) Seg Neutrophils % Seg Neuts % (Manual) Lymphocytes % (Manual) Monocytes % (Manual) Eosinophils % (Manual) Basophils % (Manual) Seg Neutrophils # Seg Neutrophils # Man Lymphocytes # (Manual) Monocytes # (Manual) APTT ABG pH 7.575 H 7.606 H* POC ABG pCO2 POC ABG pO2 ABG pO2 142.9 H 111.2 H ABG HCO3 33.2 H 33.6 H ABG O2 Saturation ABG Base Excess 10.4 H 11.2 H ABG Hemoglobin 6.6 L 6.8 L ABG Oxyhemoglobin ABG Sodium ABG Potassium ABG Chloride ABG Glucose Oxyhemoglobin Carboxyhemoglobin Sodium Potassium Chloride Carbon Dioxide BUN Creatinine Glucose POC Glucose Calcium Phosphorus ALT Troponin T 0.183 H* D Total Protein Albumin Triglycerides HDL Cholesterol TSH Arterial Blood Glucose Crossmatch 08/06/21 08/06/21 08/06/21 04:29 04:29 04:29 WBC 2.5 L RBC 2.70 L Hgb 6.8 L Hct 21.3 L MCH 25 L RDW 18.1 H Plt Count 126 L Lymph % (Auto) 45.0 H [place] % (Auto) 13.6 H Lymph # (Auto) 1.1 L Seg Neutrophils % 37.3 L Seg Neuts % (Manual) Lymphocytes % (Manual) Monocytes % (Manual) Eosinophils % (Manual) Basophils % (Manual) Seg Neutrophils # 0.9 L Seg Neutrophils # Man Lymphocytes # (Manual) Monocytes # (Manual) APTT 38.8 H ABG pH POC ABG pCO2 POC ABG pO2 ABG pO2 ABG HCO3 ABG O2 Saturation ABG Base Excess ABG Hemoglobin ABG Oxyhemoglobin ABG Sodium ABG Potassium ABG Chloride ABG Glucose Oxyhemoglobin Carboxyhemoglobin Sodium 136 L Potassium 3.0 L Chloride 92.6 L Carbon Dioxide 32 H BUN Creatinine 3.8 H Glucose POC Glucose Calcium Phosphorus ALT Troponin T Total Protein 5.8 L Albumin 3.1 L Triglycerides HDL Cholesterol TSH Arterial Blood Glucose Crossmatch 08/06/21 08/06/21 08/06/21 05:30 07:26 07:26 WBC RBC Hgb 7.0 L Hct 22.5 L MCH RDW Plt Count 127 L Lymph % (Auto) [place] % (Auto) Lymph # (Auto) Seg Neutrophils % Seg Neuts % (Manual) Lymphocytes % (Manual) Monocytes % (Manual) Eosinophils % (Manual) Basophils % (Manual) Seg Neutrophils # Seg Neutrophils # Man Lymphocytes # (Manual) Monocytes # (Manual) APTT 37.1 H ABG pH POC ABG pCO2 POC ABG pO2 ABG pO2 ABG HCO3 ABG O2 Saturation ABG Base Excess ABG Hemoglobin ABG Oxyhemoglobin ABG Sodium ABG Potassium ABG Chloride ABG Glucose Oxyhemoglobin Carboxyhemoglobin Sodium Potassium Chloride Carbon Dioxide BUN Creatinine Glucose POC Glucose Calcium Phosphorus ALT Troponin T Total Protein Albumin Triglycerides HDL Cholesterol TSH Arterial Blood Glucose Crossmatch See Detail 08/06/21 08/06/21 08/06/21 08:06 14:50 16:03 WBC RBC Hgb Hct MCH RDW Plt Count Lymph % (Auto) [place] % (Auto) Lymph # (Auto) Seg Neutrophils % Seg Neuts % (Manual) Lymphocytes % (Manual) Monocytes % (Manual) Eosinophils % (Manual) Basophils % (Manual) Seg Neutrophils # Seg Neutrophils # Man Lymphocytes # (Manual) Monocytes # (Manual) APTT ABG pH POC ABG pCO2 POC ABG pO2 ABG pO2 ABG HCO3 ABG O2 Saturation ABG Base Excess ABG Hemoglobin ABG Oxyhemoglobin ABG Sodium ABG Potassium ABG Chloride ABG Glucose Oxyhemoglobin Carboxyhemoglobin Sodium Potassium 3.1 L Chloride 92.4 L Carbon Dioxide 33 H BUN Creatinine 3.9 H Glucose POC Glucose 59 L 121 H Calcium Phosphorus ALT Troponin T Total Protein Albumin Triglycerides HDL Cholesterol TSH Arterial Blood Glucose Crossmatch 08/06/21 08/06/21 08/06/21 16:35 16:35 17:31 WBC 4.2 L RBC 3.27 L Hgb 8.5 L Hct 26.8 L MCH 26 L RDW 18.7 H Plt Count 124 L Lymph % (Auto) [place] % (Auto) 15.5 H Lymph # (Auto) 0.8 L Seg Neutrophils % Seg Neuts % (Manual) Lymphocytes % (Manual) Monocytes % (Manual) Eosinophils % (Manual) Basophils % (Manual) Seg Neutrophils # Seg Neutrophils # Man Lymphocytes # (Manual) Monocytes # (Manual) APTT ABG pH POC ABG pCO2 POC ABG pO2 ABG pO2 ABG HCO3 ABG O2 Saturation ABG Base Excess ABG Hemoglobin ABG Oxyhemoglobin ABG Sodium ABG Potassium ABG Chloride ABG Glucose Oxyhemoglobin Carboxyhemoglobin Sodium 133 L Potassium Chloride 93.2 L Carbon Dioxide BUN 21 H Creatinine 4.6 H Glucose POC Glucose 62 L Calcium 8.3 L Phosphorus ALT Troponin T Total Protein 6.2 L Albumin 3.2 L Triglycerides HDL Cholesterol TSH Arterial Blood Glucose Crossmatch 08/06/21 08/06/21 08/07/21 18:14 18:22 04:00 WBC 1.0 L* RBC 2.67 L Hgb 7.0 L Hct 21.8 L MCH 26 L RDW 18.7 H Plt Count 82 L Lymph % (Auto) [place] % (Auto) Lymph # (Auto) Seg Neutrophils % Seg Neuts % (Manual) 16.0 L Lymphocytes % (Manual) 60.0 H Monocytes % (Manual) Eosinophils % (Manual) 11.0 H Basophils % (Manual) 4.0 H Seg Neutrophils # Seg Neutrophils # Man 0.2 L Lymphocytes # (Manual) 0.6 L Monocytes # (Manual) APTT ABG pH 7.565 H POC ABG pCO2 POC ABG pO2 ABG pO2 113.3 H ABG HCO3 29.4 H ABG O2 Saturation ABG Base Excess 6.9 H ABG Hemoglobin 8.3 L ABG Oxyhemoglobin ABG Sodium ABG Potassium ABG Chloride ABG Glucose Oxyhemoglobin Carboxyhemoglobin Sodium Potassium Chloride Carbon Dioxide BUN Creatinine Glucose POC Glucose 148 H Calcium Phosphorus ALT Troponin T Total Protein Albumin Triglycerides HDL Cholesterol TSH Arterial Blood Glucose Crossmatch 08/07/21 08/07/21 08/07/21 04:00 04:25 08:30 WBC RBC Hgb Hct MCH RDW Plt Count Lymph % (Auto) [place] % (Auto) Lymph # (Auto) Seg Neutrophils % Seg Neuts % (Manual) Lymphocytes % (Manual) Monocytes % (Manual) Eosinophils % (Manual) Basophils % (Manual) Seg Neutrophils # Seg Neutrophils # Man Lymphocytes # (Manual) Monocytes # (Manual) APTT ABG pH 7.609 H* 7.479 H POC ABG pCO2 POC ABG pO2 ABG pO2 121.4 H 130.2 H ABG HCO3 28.5 H 30.3 H ABG O2 Saturation ABG Base Excess 7.2 H 6.2 H ABG Hemoglobin 10.7 L 8.1 L ABG Oxyhemoglobin ABG Sodium ABG Potassium ABG Chloride ABG Glucose Oxyhemoglobin Carboxyhemoglobin Sodium 133 L Potassium 3.2 L D Chloride 93.9 L Carbon Dioxide BUN 23 H Creatinine 4.3 H Glucose POC Glucose Calcium 8.1 L Phosphorus ALT Troponin T Total Protein Albumin Triglycerides HDL Cholesterol TSH Arterial Blood Glucose Crossmatch 08/07/21 08/07/21 08/07/21 13:18 13:30 15:51 WBC RBC Hgb Hct MCH RDW Plt Count Lymph % (Auto) [place] % (Auto) Lymph # (Auto) Seg Neutrophils % Seg Neuts % (Manual) Lymphocytes % (Manual) Monocytes % (Manual) Eosinophils % (Manual) Basophils % (Manual) Seg Neutrophils # Seg Neutrophils # Man Lymphocytes # (Manual) Monocytes # (Manual) APTT ABG pH POC ABG pCO2 POC ABG pO2 ABG pO2 ABG HCO3 ABG O2 Saturation ABG Base Excess ABG Hemoglobin ABG Oxyhemoglobin ABG Sodium ABG Potassium ABG Chloride ABG Glucose Oxyhemoglobin Carboxyhemoglobin Sodium Potassium Chloride Carbon Dioxide BUN Creatinine Glucose POC Glucose 67 L 58 L Calcium Phosphorus ALT Troponin T Total Protein Albumin Triglycerides HDL Cholesterol TSH 7.070 H Arterial Blood Glucose Crossmatch 08/08/21 08/08/21 08/08/21 04:19 04:26 04:26 WBC RBC Hgb 6.8 L Hct 21.6 L MCH RDW Plt Count 91 L Lymph % (Auto) [place] % (Auto) Lymph # (Auto) Seg Neutrophils % Seg Neuts % (Manual) Lymphocytes % (Manual) Monocytes % (Manual) Eosinophils % (Manual) Basophils % (Manual) Seg Neutrophils # Seg Neutrophils # Man Lymphocytes # (Manual) Monocytes # (Manual) APTT ABG pH 7.545 H POC ABG pCO2 POC ABG pO2 ABG pO2 136.1 H ABG HCO3 27.3 H ABG O2 Saturation ABG Base Excess 4.5 H ABG Hemoglobin 6.9 L ABG Oxyhemoglobin ABG Sodium ABG Potassium ABG Chloride ABG Glucose Oxyhemoglobin Carboxyhemoglobin Sodium 132 L Potassium Chloride 93.5 L Carbon Dioxide BUN Creatinine 3.7 H Glucose POC Glucose Calcium Phosphorus ALT Troponin T Total Protein Albumin Triglycerides HDL Cholesterol TSH Arterial Blood Glucose Crossmatch 08/08/21 08/08/21 08/08/21 09:45 12:23 18:51 WBC RBC Hgb Hct MCH RDW Plt Count Lymph % (Auto) [place] % (Auto) Lymph # (Auto) Seg Neutrophils % Seg Neuts % (Manual) Lymphocytes % (Manual) Monocytes % (Manual) Eosinophils % (Manual) Basophils % (Manual) Seg Neutrophils # Seg Neutrophils # Man Lymphocytes # (Manual) Monocytes # (Manual) APTT ABG pH 7.471 H POC ABG pCO2 POC ABG pO2 71.1 L ABG pO2 ABG HCO3 ABG O2 Saturation ABG Base Excess ABG Hemoglobin ABG Oxyhemoglobin ABG Sodium 128.9 L ABG Potassium ABG Chloride 95.0 L ABG Glucose 64 L Oxyhemoglobin Carboxyhemoglobin Sodium Potassium Chloride Carbon Dioxide BUN Creatinine Glucose POC Glucose 58 L 68 L Calcium Phosphorus ALT Troponin T Total Protein Albumin Triglycerides HDL Cholesterol TSH Arterial Blood Glucose 64 L Crossmatch 08/09/21 08/09/21 08/09/21 04:30 04:33 04:33 WBC 2.4 L RBC 3.16 L Hgb 8.3 L Hct 26.5 L MCH 26 L RDW 18.3 H Plt Count 113 L Lymph % (Auto) [place] % (Auto) Lymph # (Auto) Seg Neutrophils % Seg Neuts % (Manual) Lymphocytes % (Manual) Monocytes % (Manual) Eosinophils % (Manual) Basophils % (Manual) Seg Neutrophils # Seg Neutrophils # Man Lymphocytes # (Manual) Monocytes # (Manual) APTT ABG pH POC ABG pCO2 POC ABG pO2 ABG pO2 91.5 H ABG HCO3 26.6 H ABG O2 Saturation ABG Base Excess ABG Hemoglobin 9.0 L ABG Oxyhemoglobin ABG Sodium ABG Potassium ABG Chloride ABG Glucose Oxyhemoglobin Carboxyhemoglobin Sodium 129 L Potassium Chloride 91.9 L Carbon Dioxide BUN 22 H Creatinine 4.7 H Glucose POC Glucose Calcium Phosphorus ALT Troponin T Total Protein Albumin Triglycerides HDL Cholesterol TSH Arterial Blood Glucose Crossmatch 08/10/21 08/10/21 08/10/21 04:00 04:00 04:55 WBC 3.3 L RBC 3.32 L Hgb 8.9 L Hct 27.6 L MCH 27 L RDW 18.3 H Plt Count Lymph % (Auto) [place] % (Auto) Lymph # (Auto) Seg Neutrophils % Seg Neuts % (Manual) Lymphocytes % (Manual) Monocytes % (Manual) 9.0 H Eosinophils % (Manual) Basophils % (Manual) Seg Neutrophils # Seg Neutrophils # Man Lymphocytes # (Manual) 0.6 L Monocytes # (Manual) APTT ABG pH POC ABG pCO2 POC ABG pO2 ABG pO2 ABG HCO3 ABG O2 Saturation ABG Base Excess ABG Hemoglobin 9.6 L ABG Oxyhemoglobin ABG Sodium 120.3 L ABG Potassium 5.2 H ABG Chloride 88.0 L ABG Glucose Oxyhemoglobin Carboxyhemoglobin 0.4 L Sodium 123 L Potassium 5.5 H D Chloride 84.8 L Carbon Dioxide BUN 30 H Creatinine 5.5 H Glucose 139 H POC Glucose Calcium Phosphorus 5.90 H ALT Troponin T Total Protein Albumin Triglycerides HDL Cholesterol TSH Arterial Blood Glucose Crossmatch 08/10/21 08/11/21 08/11/21 12:17 04:00 05:53 WBC RBC 3.50 L Hgb 9.2 L Hct 29.0 L MCH 26 L RDW 18.4 H Plt Count Lymph % (Auto) [place] % (Auto) Lymph # (Auto) Seg Neutrophils % Seg Neuts % (Manual) 76.0 H Lymphocytes % (Manual) 8.0 L Monocytes % (Manual) 13.0 H Eosinophils % (Manual) Basophils % (Manual) Seg Neutrophils # Seg Neutrophils # Man Lymphocytes # (Manual) 0.6 L Monocytes # (Manual) 0.9 H APTT ABG pH POC ABG pCO2 POC ABG pO2 ABG pO2 ABG HCO3 ABG O2 Saturation ABG Base Excess ABG Hemoglobin ABG Oxyhemoglobin ABG Sodium ABG Potassium ABG Chloride ABG Glucose Oxyhemoglobin Carboxyhemoglobin Sodium 128 L Potassium Chloride 90.3 L Carbon Dioxide BUN 24 H Creatinine 4.3 H Glucose 135 H POC Glucose 142 H Calcium Phosphorus ALT Troponin T Total Protein Albumin Triglycerides HDL Cholesterol TSH Arterial Blood Glucose Crossmatch 08/11/21 08/12/21 08/12/21 16:39 05:23 05:23 WBC RBC 3.20 L Hgb 8.8 L Hct 26.7 L MCH RDW 18.6 H Plt Count Lymph % (Auto) [place] % (Auto) Lymph # (Auto) Seg Neutrophils % Seg Neuts % (Manual) Lymphocytes % (Manual) Monocytes % (Manual) Eosinophils % (Manual) Basophils % (Manual) Seg Neutrophils # Seg Neutrophils # Man Lymphocytes # (Manual) Monocytes # (Manual) APTT ABG pH POC ABG pCO2 POC ABG pO2 ABG pO2 ABG HCO3 ABG O2 Saturation ABG Base Excess ABG Hemoglobin ABG Oxyhemoglobin ABG Sodium ABG Potassium ABG Chloride ABG Glucose Oxyhemoglobin Carboxyhemoglobin Sodium 125 L Potassium Chloride 86.6 L Carbon Dioxide 21 L BUN 34 H Creatinine 5.0 H Glucose 111 H POC Glucose 112 H Calcium Phosphorus ALT Troponin T Total Protein Albumin Triglycerides HDL Cholesterol TSH Arterial Blood Glucose Crossmatch 08/12/21 08/12/21 08/13/21 12:18 17:56 06:01 WBC RBC Hgb Hct MCH RDW Plt Count Lymph % (Auto) [place] % (Auto) Lymph # (Auto) Seg Neutrophils % Seg Neuts % (Manual) Lymphocytes % (Manual) Monocytes % (Manual) Eosinophils % (Manual) Basophils % (Manual) Seg Neutrophils # Seg Neutrophils # Man Lymphocytes # (Manual) Monocytes # (Manual) APTT ABG pH POC ABG pCO2 POC ABG pO2 ABG pO2 ABG HCO3 ABG O2 Saturation ABG Base Excess ABG Hemoglobin ABG Oxyhemoglobin ABG Sodium ABG Potassium ABG Chloride ABG Glucose Oxyhemoglobin Carboxyhemoglobin Sodium Potassium Chloride Carbon Dioxide BUN Creatinine Glucose POC Glucose 140 H 119 H 110 H Calcium Phosphorus ALT Troponin T Total Protein Albumin Triglycerides HDL Cholesterol TSH Arterial Blood Glucose Crossmatch 08/13/21 08/13/21 08/14/21 Unknown Unknown 04:00 WBC RBC Hgb Hct MCH RDW Plt Count Lymph % (Auto) [place] % (Auto) Lymph # (Auto) Seg Neutrophils % Seg Neuts % (Manual) Lymphocytes % (Manual) Monocytes % (Manual) Eosinophils % (Manual) Basophils % (Manual) Seg Neutrophils # Seg Neutrophils # Man Lymphocytes # (Manual) Monocytes # (Manual) APTT ABG pH POC ABG pCO2 POC ABG pO2 ABG pO2 ABG HCO3 ABG O2 Saturation ABG Base Excess ABG Hemoglobin ABG Oxyhemoglobin ABG Sodium ABG Potassium ABG Chloride ABG Glucose Oxyhemoglobin Carboxyhemoglobin Sodium 129 L 128 L Potassium Chloride 90.1 L 89.7 L Carbon Dioxide BUN 24 H 36 H Creatinine 3.8 H 4.2 H Glucose POC Glucose Calcium Phosphorus ALT Troponin T Total Protein Albumin Triglycerides 399 H HDL Cholesterol TSH Arterial Blood Glucose Crossmatch 08/14/21 08/14/21 08/14/21 05:44 11:57 13:12 WBC RBC Hgb Hct MCH RDW Plt Count Lymph % (Auto) [place] % (Auto) Lymph # (Auto) Seg Neutrophils % Seg Neuts % (Manual) Lymphocytes % (Manual) Monocytes % (Manual) Eosinophils % (Manual) Basophils % (Manual) Seg Neutrophils # Seg Neutrophils # Man Lymphocytes # (Manual) Monocytes # (Manual) APTT ABG pH 7.498 H POC ABG pCO2 29.1 L POC ABG pO2 61.8 L ABG pO2 ABG HCO3 ABG O2 Saturation ABG Base Excess ABG Hemoglobin 8.6 L ABG Oxyhemoglobin 91.9 L ABG Sodium 126.4 L ABG Potassium ABG Chloride 92.0 L ABG Glucose 99 H Oxyhemoglobin Carboxyhemoglobin Sodium Potassium Chloride Carbon Dioxide BUN Creatinine Glucose POC Glucose 111 H 111 H Calcium Phosphorus ALT Troponin T Total Protein Albumin Triglycerides HDL Cholesterol TSH Arterial Blood Glucose 99 H Crossmatch 08/14/21 08/15/21 08/15/21 Unknown 04:34 04:34 WBC RBC 3.14 L 2.79 L Hgb 8.5 L 7.8 L Hct 25.5 L 22.8 L MCH 27 L RDW 19.1 H 18.8 H Plt Count Lymph % (Auto) [place] % (Auto) Lymph # (Auto) Seg Neutrophils % Seg Neuts % (Manual) Lymphocytes % (Manual) Monocytes % (Manual) Eosinophils % (Manual) Basophils % (Manual) Seg Neutrophils # Seg Neutrophils # Man Lymphocytes # (Manual) Monocytes # (Manual) APTT ABG pH POC ABG pCO2 POC ABG pO2 ABG pO2 ABG HCO3 ABG O2 Saturation ABG Base Excess ABG Hemoglobin ABG Oxyhemoglobin ABG Sodium ABG Potassium ABG Chloride ABG Glucose Oxyhemoglobin Carboxyhemoglobin Sodium 128 L Potassium Chloride 88.8 L Carbon Dioxide BUN 44 H Creatinine 5.1 H Glucose POC Glucose Calcium Phosphorus ALT Troponin T Total Protein Albumin Triglycerides HDL Cholesterol TSH Arterial Blood Glucose Crossmatch 08/15/21 08/15/21 08/15/21 05:22 10:56 16:52 WBC RBC Hgb Hct MCH RDW Plt Count Lymph % (Auto) [place] % (Auto) Lymph # (Auto) Seg Neutrophils % Seg Neuts % (Manual) Lymphocytes % (Manual) Monocytes % (Manual) Eosinophils % (Manual) Basophils % (Manual) Seg Neutrophils # Seg Neutrophils # Man Lymphocytes # (Manual) Monocytes # (Manual) APTT ABG pH 7.496 H POC ABG pCO2 29.8 L POC ABG pO2 ABG pO2 ABG HCO3 ABG O2 Saturation ABG Base Excess ABG Hemoglobin 7.4 L ABG Oxyhemoglobin ABG Sodium 124.3 L ABG Potassium ABG Chloride 92.0 L ABG Glucose Oxyhemoglobin Carboxyhemoglobin Sodium Potassium Chloride Carbon Dioxide BUN Creatinine Glucose POC Glucose 111 H 115 H Calcium Phosphorus ALT Troponin T Total Protein Albumin Triglycerides HDL Cholesterol TSH Arterial Blood Glucose Crossmatch 08/16/21 08/16/21 08/16/21 04:00 04:00 10:57 WBC RBC 2.96 L Hgb 8.0 L Hct 23.9 L MCH 27 L RDW 18.6 H Plt Count Lymph % (Auto) [place] % (Auto) Lymph # (Auto) Seg Neutrophils % Seg Neuts % (Manual) Lymphocytes % (Manual) Monocytes % (Manual) Eosinophils % (Manual) Basophils % (Manual) Seg Neutrophils # Seg Neutrophils # Man Lymphocytes # (Manual) Monocytes # (Manual) APTT ABG pH POC ABG pCO2 POC ABG pO2 ABG pO2 ABG HCO3 ABG O2 Saturation ABG Base Excess ABG Hemoglobin ABG Oxyhemoglobin ABG Sodium ABG Potassium ABG Chloride ABG Glucose Oxyhemoglobin Carboxyhemoglobin Sodium 132 L Potassium Chloride 93.1 L Carbon Dioxide BUN 26 H Creatinine 3.9 H Glucose 119 H POC Glucose 112 H Calcium Phosphorus ALT Troponin T Total Protein Albumin Triglycerides HDL Cholesterol TSH Arterial Blood Glucose Crossmatch 08/16/21 08/17/21 08/17/21 23:20 04:00 04:00 WBC RBC 3.07 L Hgb 8.1 L Hct 25.0 L MCH 26 L RDW 19.3 H Plt Count Lymph % (Auto) [place] % (Auto) Lymph # (Auto) Seg Neutrophils % Seg Neuts % (Manual) Lymphocytes % (Manual) Monocytes % (Manual) Eosinophils % (Manual) Basophils % (Manual) Seg Neutrophils # Seg Neutrophils # Man Lymphocytes # (Manual) Monocytes # (Manual) APTT ABG pH POC ABG pCO2 POC ABG pO2 ABG pO2 ABG HCO3 ABG O2 Saturation ABG Base Excess ABG Hemoglobin ABG Oxyhemoglobin ABG Sodium ABG Potassium ABG Chloride ABG Glucose Oxyhemoglobin Carboxyhemoglobin Sodium 135 L Potassium Chloride 97.4 L Carbon Dioxide BUN 20 H Creatinine 3.0 H Glucose 171 H POC Glucose 125 H Calcium Phosphorus ALT Troponin T Total Protein Albumin Triglycerides HDL Cholesterol TSH Arterial Blood Glucose Crossmatch 08/17/21 08/17/21 08/17/21 05:09 05:12 11:46 WBC RBC Hgb Hct MCH RDW Plt Count Lymph % (Auto) [place] % (Auto) Lymph # (Auto) Seg Neutrophils % Seg Neuts % (Manual) Lymphocytes % (Manual) Monocytes % (Manual) Eosinophils % (Manual) Basophils % (Manual) Seg Neutrophils # Seg Neutrophils # Man Lymphocytes # (Manual) Monocytes # (Manual) APTT ABG pH 7.579 H POC ABG pCO2 27.0 L POC ABG pO2 139.0 H ABG pO2 ABG HCO3 ABG O2 Saturation ABG Base Excess ABG Hemoglobin 8.1 L ABG Oxyhemoglobin 98.3 H ABG Sodium 132.1 L ABG Potassium ABG Chloride ABG Glucose 160 H Oxyhemoglobin Carboxyhemoglobin Sodium Potassium Chloride Carbon Dioxide BUN Creatinine Glucose POC Glucose 155 H 170 H Calcium Phosphorus ALT Troponin T Total Protein Albumin Triglycerides HDL Cholesterol TSH Arterial Blood Glucose 160 H Crossmatch 08/17/21 08/18/21 08/18/21 17:41 00:21 04:00 WBC RBC 2.82 L Hgb 7.5 L Hct 22.7 L MCH 27 L RDW 18.9 H Plt Count Lymph % (Auto) [place] % (Auto) Lymph # (Auto) Seg Neutrophils % Seg Neuts % (Manual) Lymphocytes % (Manual) Monocytes % (Manual) Eosinophils % (Manual) Basophils % (Manual) Seg Neutrophils # Seg Neutrophils # Man Lymphocytes # (Manual) Monocytes # (Manual) APTT ABG pH POC ABG pCO2 POC ABG pO2 ABG pO2 ABG HCO3 ABG O2 Saturation ABG Base Excess ABG Hemoglobin ABG Oxyhemoglobin ABG Sodium ABG Potassium ABG Chloride ABG Glucose Oxyhemoglobin Carboxyhemoglobin Sodium Potassium Chloride Carbon Dioxide BUN Creatinine Glucose POC Glucose 150 H 152 H Calcium Phosphorus ALT Troponin T Total Protein Albumin Triglycerides HDL Cholesterol TSH Arterial Blood Glucose Crossmatch 08/18/21 08/18/21 04:00 05:38 WBC RBC Hgb Hct MCH RDW Plt Count Lymph % (Auto) [place] % (Auto) Lymph # (Auto) Seg Neutrophils % Seg Neuts % (Manual) Lymphocytes % (Manual) Monocytes % (Manual) Eosinophils % (Manual) Basophils % (Manual) Seg Neutrophils # Seg Neutrophils # Man Lymphocytes # (Manual) Monocytes # (Manual) APTT ABG pH POC ABG pCO2 POC ABG pO2 ABG pO2 ABG HCO3 ABG O2 Saturation ABG Base Excess ABG Hemoglobin ABG Oxyhemoglobin ABG Sodium ABG Potassium ABG Chloride ABG Glucose Oxyhemoglobin Carboxyhemoglobin Sodium 132 L Potassium Chloride 94.8 L Carbon Dioxide BUN 36 H Creatinine 4.0 H Glucose 168 H POC Glucose 158 H Calcium Phosphorus ALT Troponin T Total Protein Albumin Triglycerides HDL Cholesterol TSH Arterial Blood Glucose Crossmatch Allied health notes reviewed: nursing
[2021-08-18] MEDS: AMIODARONE 200 MG TAB PO SCH ×2 (10:10→22:00)
[2021-08-18] MEDS: SENNOSIDES ORAL LIQD 8.8 MG/5 ML ORAL LIQD FEEDTUBE SCH ×2 (10:10→21:59)
[2021-08-18] MEDS: CLOPIDOGREL 75 MG TAB PO SCH (10:12)
[2021-08-18] MEDS: METOPROLOL TARTRATE 50 MG TAB PO SCH ×2 (10:12→22:03)
[2021-08-18] MEDS: LOSARTAN 25 MG TAB PO SCH (10:12)
[2021-08-18] MEDS: fentaNYL 100 MCG/2 ML INJ IV PRN ×3 (10:12→20:15)
[2021-08-18] MEDS: ASPIRIN 81 MG TAB CHEW PO SCH (10:12)
[2021-08-18] MEDS: HEPARIN 5,000 UNIT/1 ML VIAL SUB-Q SCH ×2 (10:13→22:00)
[2021-08-18] MEDS: FAMOTIDINE 10 MG TAB PO SCH ×2 (10:15→22:04)
[2021-08-18] MEDS: MINOXIDIL 2.5 MG TAB PO SCH ×2 (10:16→21:59)
--- NOTE | 2021-08-18 11:07 | Progress Note ---
Assessment and Plan Patient is a 60-year-old female with recurrent V. tach, end-stage renal disease, s/p ICD, and recurrent severe hypokalemia VT Storm Recurrent AICD Discharges CAD s/p PCI (07/17/2021) Accelerated HTN ESRD on HD Hyponatremia Severe Hypokalemia (POA, resolved) Anemia Thrombocytopenia Type 2 CO HTN H/o CVA Plan: Currently waiting bed availability at [place] for transfer for VT ablation Continue aspirin, Plavix, Lipitor Continue losartan 100 mg p.o. daily and metoprolol 100 mg p.o. twice daily,hydralazine 100 mg p.o.Q8hrs,amio 400 mg p.o. twice daily,minoxidil 5 mg p.o. twice daily Nicardipine has been stopped Continue clonidine 0.3 mg p.o. every 8 hours pt awake on profolol and awaiting extubation if possible Subjective Date of service: 08/18/21 Principal diagnosis: Recurrent VT Interval history: on vent awake on profolol Objective Vital Signs Temp Pulse Pulse Resp BP Pulse Ox 08/18/21 10:30 70 10 L 125/53 100 08/18/21 10:12 70 08/18/21 10:00 70 11 L 125/53 100 08/18/21 09:30 70 13 104/37 100 08/18/21 09:00 70 20 117/75 99 08/18/21 08:30 70 9 L 117/75 100 08/18/21 08:00 99.4 F 70 70 9 L 116/45 100 08/18/21 07:40 70 94/73 100 08/18/21 07:30 70 12 118/99 99 08/18/21 07:28 99.4 F 08/18/21 07:00 70 11 L 118/99 100 08/18/21 06:30 70 12 120/30 100 08/18/21 06:20 70 130/65 08/18/21 06:19 70 130/64 08/18/21 06:00 70 11 L 127/38 100 08/18/21 05:30 70 12 120/30 100 08/18/21 05:00 70 11 L 134/44 100 08/18/21 04:30 70 11 L 134/44 100 08/18/21 04:10 70 150/47 100 08/18/21 04:00 97.8 F 70 10 L 150/47 100 08/18/21 03:30 70 10 L 147/45 100 08/18/21 03:00 70 11 L 154/82 100 08/18/21 02:30 70 10 L 154/82 100 08/18/21 02:00 70 10 L 137/56 100 08/18/21 01:30 70 11 L 118/65 100 08/18/21 01:00 70 10 L 146/47 96 08/18/21 00:30 70 13 127/46 100 08/18/21 00:05 70 124/51 100 08/18/21 00:00 97.7 F 70 12 127/46 100 08/17/21 23:30 70 11 L 110/41 100 08/17/21 23:25 70 08/17/21 23:10 70 10 L 110/41 100 08/17/21 23:00 70 10 L 110/41 100 08/17/21 22:30 70 12 98/42 100 08/17/21 22:00 70 10 L 97/47 100 08/17/21 21:30 70 12 87/34 100 08/17/21 21:00 70 15 145/60 100 08/17/21 20:30 70 12 136/55 100 08/17/21 20:11 70 182/66 100 08/17/21 20:00 97.6 F 70 70 13 182/66 100 08/17/21 19:30 70 11 L 159/62 08/17/21 19:00 70 13 118/46 99 08/17/21 18:30 70 12 109/43 99 08/17/21 18:00 70 14 87/45 100 08/17/21 17:30 70 17 97/44 99 08/17/21 17:25 98.3 F 08/17/21 17:00 70 11 L 99/41 99 08/17/21 16:30 70 10 L 106/50 99 08/17/21 16:00 70 70 10 L 99/41 100 08/17/21 15:30 70 10 L 105/45 100 08/17/21 15:00 70 18 105/45 99 08/17/21 14:49 70 106/45 08/17/21 14:48 70 106/45 08/17/21 14:30 70 17 106/45 99 08/17/21 14:00 70 18 107/44 99 08/17/21 13:30 70 9 L 114/45 99 08/17/21 13:00 70 11 L 120/45 99 08/17/21 12:30 70 19 107/48 98 08/17/21 12:00 70 70 16 129/53 99 08/17/21 11:58 70 127/52 99 08/17/21 11:30 70 9 L 122/48 100 - Physical Examination General: Other (intubated) HEENT: Positive: Normocephaly, Mucus Membranes Dry Neck: Positive: neck supple, trachea midline. Negative: JVD/HJR Cardiac: Positive: Reg Rate and Rhythm Lungs: Positive: clear to auscultation Neuro: Positive: Other (intubated) Abdomen: Positive: Soft Skin: Negative: Rash Musculoskeletal: No Fluid Collection Extremities: Present: lower extr. pulses. Absent: edema - Labs and Meds CBC 08/18/21 Range/Units 04:00 WBC 7.3 (4.5-11.0) K/mm3 RBC 2.82 L (3.65-5.03) M/mm3 Hgb 7.5 L (10.1-14.3) gm/dl Hct 22.7 L (30.3-42.9) % Plt Count 366 (140-440) K/mm3 Comprehensive Metabolic Panel 08/18/21 Range/Units 04:00 Sodium 132 L (137-145) mmol/L Potassium 3.7 (3.6-5.0) mmol/L Chloride 94.8 L (98-107) mmol/L Carbon Dioxide 24 (22-30) mmol/L BUN 36 H (7-17) mg/dL Creatinine 4.0 H (0.6-1.2) mg/dL Glucose 168 H (65-100) mg/dL Calcium 9.3 (8.4-10.2) mg/dL - Imaging and Cardiology EKG: report reviewed, image reviewed Echo: report reviewed Cardiac cath: report reviewed - Telemetry EKG Rhythm: Paced (no vtach for one week) - EKG Sinus rhythms and dysrhythmias: sinus rhythm Repolarization changes or abnormalities: Q-T interval prolongation Myocardial infarction: anterior CO (old age or i Pacemaker: atrial pacing w/capture - Allied health notes Allied health notes reviewed: nursing
--- NOTE | 2021-08-18 11:58 | Progress Note ---
Assessment and Plan Assessment and plan: This is 60-year-old female with ESRD on HD, recurrent AICD discharges, V. tach, cardiac arrest, anemia of chronic disease, CAD, systolic HF and HTN admitted for V. tach storm and severe hypokalemia Hospital Course to Date: This is 60-year-old female with ESRD on HD, recurrent AICD discharges, systolic heart failure, V. tach, cardiac arrest, anemia, CAD and HTN who presents to the emergency department from her dialysis center on 08/05 for severe muscle spasms secondary to AICD discharges per patient. She also had questionable seizures in the dialysis center. Patient was started on amiodarone and lidocaine. Patient was intubated for airway protection in the emergency department and work-up also revealed severe hypokalemia. Patient was admitted to the hospital service with consult cardiology, nephrology and [facility]. 08/06/2021: Patient is sedated, Transfer to [place] arranged 08/07: COVID-19 PCR negative. Patient received hemodialysis today. Off Cardene drip. Patient has been OG tube for p.o. BP medications. Thrombocytopenia persists therefore anticoagulation is held. Patient is leukopenia also. We will continue to trend CBC. Persistent hypoglycemia and D10 drip increased to 30 ml/hr. negative Covid test relayed to [place]. 08/08: 1 unit prbc today, will start TF today. Still awaiting [place] bed. 08/09: awaiting transfer to [place]. TF nearly at goal so anticipate stopping dextrose IVF soon. Midline to be placed 08/10/2021: Received HD today. BP remains elevated therefore started on cardene gtt. Cardiology aware. No beds available yet. 08/11/2021: Cardene gtt infusing, CT head ordered as per nurse patient is not really responding (withdraw/ grimace to pain when off sedation/PERRL/intact cough/gag on PE). 08/12: ANGELINE overnight. Remains on the vent and sedated. On Amio gtt, A-pacing on the monitor, still hypertensive on cardene gtt, home antihypertensive was restarted. Plan for HD this am, hypernatremia too be corrected per Nephro. 08/13: Plan for SAT and SBT this am for possible extubation. Patient remains hypertensive on cardene gtt, clonidine added. 08/14: Patient s/p reintubation by anesthesia. Awake and alert following commands, not on any sedation. Remains hypertensive on amio and cardene gtt. D/w cardio plan to switch to PO Amio and to adjust antihypertensive therapy, hopefully can wean off cardene gtt. Plan to possible transfer patient to [facility] as a way of getting patient into the [place] system for the needed ablation. Case horacio de la cruz to arrange 08/15: ANGELINE overnight. Patient remains stable on the vent. Still with uncontrolled hypertension despite meds increased yesterday. Patient remains on cardene gt. Cardio added minoxidil, plan is still to wean off cardene gtt. Plan for HD today 08/16: Self-extubated and was reintubated overnight due to stridor. Now on low dose sedation, following commands. D/w CCM plan to do a cuff leak today and possible start patinet on IV steroids. Since this is X2 failed extubation patient might need to be Trached. Per Case management patient was denied for [facility], no HD beds available. Patient remains on [facility] transfer list for possible inpatient transfer. 08/17: On the vent and om propofol gtt, RASS 0. Hypotensive overnight, will defer to Cardio for possible BP meds adjustment. Pending transfer to [facility]. 08/18: ANGELINE overnight. While awake on propofol gtt, following commands. Tolerated PST yesterday [id number]. Daily PST as tolerated. Pending transfer to [facility] Assessment and Plan #Neuro:Agitated -Intubated, on propofol RASS 0 -Titrate sedation for RASS 0 -AAO, following simple commands -Avoid benzodiazepine to reduce the possibility of delirium -PRN analgesia for CPOT greater than 3 -Maintenance of sleep-wake cycle #CV:Hypertension-improved #VTach Storm, AICD is on -Presented muscle spasms 2/2 to AICD discharge -S/p amio gtt, now on PO amio -Patient is currently A-pacing on the monitor, HR 70 -off cardene gtt -08/17 Hypotensive post HD overnight, s/p 750 NS bolus -Cardiology consulted, appreciate recommendations -will discuss with cardio in regards of possible meds adjustment -Continue antihypertensive therapy per Cardio, minoxidil added -Continue Blood pressure monitoring for SBP less than 160 -Continue ASA,plavix, and statin -On AC-Heparin Subq -Awaiting transfer to [place] for possible [place] Ablation #Respiratory:Acute Hypoxemic Respiratory Failure -Intubated in the ED on 08/05 -Extubated and reintubated on 08/14 -08/16 Self-extubated and reintubated due to stridor -Vent setting:A/C-30%,5,12,375 -This AM ABG pending -[facility] consulted, appreciate recommendations -Tolerated PST X5hrs yesterday -VAP bundle addressed -Aspiration precaution HOB above 30 -Daily SBT trials as tolerated -Daily ABG and CXR per CCM -Continue SPO2 monitoring for SPO2 goal above 92% #GI:TF -Continue enteral Nutritiom -Nutrition consult for tube feeding -Continue PPI -Continue BR: Senokot #: ESRD on HD #Hyponatremia-improving #Hypokalemia-resolved -Presented with severe electrolytes imbalance -Nephrology consulted, appreciate recommendations -Continue HD per nephrology -Strict intake and output -Daily weight -Avoid nephrotoxic medications; Renally dose medications -Monitor and replace electrolytes as needed #Heme:Acute on Chronic Anemia of chronic disease #Acute blood loss-resolved #Thrombocytopenia (resolved) -S/p 2 unit PRBC -No s/s of any active bleeding -Trend CBC -Transfuse for hemoglobin less than 7 -Epogen per nephrology -Continue AC- heparin subq -SCDs to bilateral LE while in bed #Endo:Glycemic Control #Hypoglycemia -Was initially hypoglycemic S/p D10 for hypoglycemia -Continue SSI Q6hrs while on TF -Avoid hypoglycemia -Continue Hypoglycemic Protocol Dispo: AWAITING TRANSFER TO [facility] since 08/06/2021 The high probability of a clinically significant sudden or life-threatening deterioration of the [Respiratory,Renal,CV] and endocrine system required my full and direct attention, intervention and postoperative management. The aggregate critical care time was [40] minutes. The time is in addition to time spent performing reported procedures but includes the following: [x] 1: Data review and interpretation [x] 2: Patient assessment and monitoring of vital signs [x] 3: Documentation [x] 4: Medication orders and management Disposition Plan: ICU Total Time Spent with Patient (Minutes): 40 History Interval history: Patient seen and examined at the bedside. Intubated and on propofol gtt while awake. Patient tolerated PST for 5 hours yesterday. ANGELINE overnight Hospitalist Physical - Constitutional Vitals: Temp Pulse Resp BP Pulse Ox 99.4 F 70 10 L 125/53 100 08/18/21 08:00 08/18/21 10:30 08/18/21 10:30 08/18/21 10:30 08/18/21 10:30 General appearance: Present: no acute distress, other (Intubated and on sedation, RASS 0 ) - EENT Eyes: Present: PERRL ENT: hearing intact - Neck Neck: Present: normal ROM - Respiratory Respiratory effort: normal Respiratory: bilateral: diminished - Cardiovascular Rhythm: regular (Paced) Heart Sounds: Present: S1 & S2 - Extremities Extremities: no ischemia, pulses intact, pulses symmetrical Extremity abnormal: edema - Peripheral Assessment Generalized Edema Type: Non-pitting Edema Degree: 1+ Capillary Refill: < 3 seconds Skin Temperature: Warm Peripheral Pulses: within normal limits - Abdominal General gastrointestinal: soft, non-tender, normal bowel sounds - Integumentary Integumentary: Present: warm, dry - Psychiatric Psychiatric: cooperative, other (Restless, while awake on propofol gtt) - Neurologic Neurologic: moves all extremities, other (Restless, following commands) - Allied Health Allied health notes reviewed: nursing HEART Score - HEART Score Age: 45-65 Risk factors: > 3 risk factors or hx of atherosclerotic disease Troponin: Troponin T 0.183 ng/mL (0.00-0.029) H* D 08/05/21 18:56 Troponin: 1-3x normal limit - Critical Actions Critical Actions: 4-6 pts:12-16.6% risk of adverse cardiac event. Should be admitted Results - Labs CBC & Chem 7: 08/18/21 04:00 08/18/21 04:00 Labs: Laboratory Last Values WBC 7.3 K/mm3 (4.5-11.0) 08/18/21 04:00 RBC 2.82 M/mm3 (3.65-5.03) L 08/18/21 04:00 Hgb 7.5 gm/dl (10.1-14.3) L 08/18/21 04:00 Hct 22.7 % (30.3-42.9) L 08/18/21 04:00 MCV 81 fl (79-97) 08/18/21 04:00 MCH 27 pg (28-32) L 08/18/21 04:00 MCHC 33 % (30-34) 08/18/21 04:00 RDW 18.9 % (13.2-15.2) H 08/18/21 04:00 Plt Count 366 K/mm3 (140-440) 08/18/21 04:00 Lymph % (Auto) Stock Handler 08/07/21 04:00 Loíza % (Auto) Stock Handler 08/11/21 04:00 Eos % (Auto) 2.2 % (0.0-4.3) 08/06/21 16:35 Baso % (Auto) Stock Handler 08/07/21 04:00 Lymph # (Auto) 0.8 K/mm3 (1.2-5.4) L 08/06/21 16:35 Loíza # (Auto) 0.7 K/mm3 (0.0-0.8) 08/06/21 16:35 Eos # (Auto) 0.1 K/mm3 (0.0-0.4) 08/06/21 16:35 Baso # (Auto) 0.1 K/mm3 (0.0-0.1) 08/06/21 16:35 Add Manual Diff Complete 08/11/21 04:00 Total Counted 100 08/11/21 04:00 Seg Neutrophils % Stock Handler 08/07/21 04:00 Seg Neuts % (Manual) 76.0 % (40.0-70.0) H 08/11/21 04:00 Band Neutrophils % 2.0 % 08/11/21 04:00 Lymphocytes % (Manual) 8.0 % (13.4-35.0) L 08/11/21 04:00 Reactive Lymphs % (Man) 5.0 % 08/07/21 04:00 Monocytes % (Manual) 13.0 % (0.0-7.3) H 08/11/21 04:00 Eosinophils % (Manual) 1.0 % (0.0-4.3) 08/10/21 04:00 Basophils % (Manual) 4.0 % (0.0-1.8) H 08/07/21 04:00 Metamyelocytes % 1.0 % 08/11/21 04:00 Nucleated RBC % Not Reportable 08/11/21 04:00 Seg Neutrophils # 2.6 K/mm3 (1.8-7.7) 08/06/21 16:35 Seg Neutrophils # Man 5.2 K/mm3 (1.8-7.7) 08/11/21 04:00 Band Neutrophils # 0.1 K/mm3 08/11/21 04:00 Lymphocytes # (Manual) 0.6 K/mm3 (1.2-5.4) L 08/11/21 04:00 Abs React Lymphs (Man) 0.0 K/mm3 08/11/21 04:00 Monocytes # (Manual) 0.9 K/mm3 (0.0-0.8) H 08/11/21 04:00 Eosinophils # (Manual) 0.0 K/mm3 (0.0-0.4) 08/11/21 04:00 Basophils # (Manual) 0.0 K/mm3 (0.0-0.1) 08/11/21 04:00 Metamyelocytes # 0.1 K/mm3 08/11/21 04:00 Myelocytes # 0.0 K/mm3 08/11/21 04:00 Promyelocytes # 0.0 K/mm3 08/11/21 04:00 Blast Cells # 0.0 K/mm3 08/11/21 04:00 WBC Morphology Not Reportable 08/11/21 04:00 WBC Morphology TNR 08/11/21 04:00 Hypersegmented Neuts Not Reportable 08/11/21 04:00 Hyposegmented Neuts Not Reportable 08/11/21 04:00 Hypogranular Neuts Not Reportable 08/11/21 04:00 Smudge Cells Not Reportable 08/11/21 04:00 Toxic Granulation Not Reportable 08/11/21 04:00 Toxic Vacuolation Not Reportable 08/11/21 04:00 Dohle Bodies Not Reportable 08/11/21 04:00 Pelger-Huet Anomaly Not Reportable 08/11/21 04:00 Claudio Rods Not Reportable 08/11/21 04:00 Platelet Estimate Consistent w auto 08/11/21 04:00 Clumped Platelets Not Reportable 08/11/21 04:00 Plt Clumps, EDTA Not Reportable 08/11/21 04:00 Large Platelets Not Reportable 08/11/21 04:00 Giant Platelets Not Reportable 08/11/21 04:00 Platelet Satelliting Not Reportable 08/11/21 04:00 Plt Morphology Comment Not Reportable 08/11/21 04:00 RBC Morphology Not Reportable 08/11/21 04:00 Dimorphic RBCs Not Reportable 08/11/21 04:00 Polychromasia Not Reportable 08/11/21 04:00 Hypochromasia Few 08/11/21 04:00 Poikilocytosis Not Reportable 08/11/21 04:00 Anisocytosis Not Reportable 08/11/21 04:00 Microcytosis Not Reportable 08/11/21 04:00 Macrocytosis Not Reportable 08/11/21 04:00 Spherocytes Not Reportable 08/11/21 04:00 Pappenheimer Bodies Not Reportable 08/11/21 04:00 Sickle Cells Not Reportable 08/11/21 04:00 Target Cells Few 08/11/21 04:00 Tear Drop Cells Not Reportable 08/11/21 04:00 Ovalocytes Not Reportable 08/11/21 04:00 Helmet Cells Not Reportable 08/11/21 04:00 Diaz-[place] Bodies Not Reportable 08/11/21 04:00 Dugway Rings Not Reportable 08/11/21 04:00 [place] Cells Not Reportable 08/11/21 04:00 Bite Cells Not Reportable 08/11/21 04:00 Crenated Cell Not Reportable 08/11/21 04:00 Elliptocytes Not Reportable 08/11/21 04:00 Acanthocytes (Spur) Not Reportable 08/11/21 04:00 Rouleaux Not Reportable 08/11/21 04:00 Hemoglobin C Crystals Not Reportable 08/11/21 04:00 Schistocytes Not Reportable 08/11/21 04:00 Malaria parasites Not Reportable 08/11/21 04:00 Aleks Bodies Not Reportable 08/11/21 04:00 Hem Pathologist Commnt No 08/11/21 04:00 PT 14.2 Sec. (12.2-14.9) 08/06/21 16:35 INR 0.99 (0.87-1.13) 08/06/21 16:35 APTT 37.1 Sec. (24.2-36.6) H 08/06/21 07:26 ABG pH 7.579 (7.320-7.450) H 08/17/21 05:09 POC ABG pCO2 27.0 mmHg (32.0-48.0) L 08/17/21 05:09 ABG pCO2 41.2 mm Hg 08/09/21 04:30 POC ABG pO2 139.0 mmHg (83-108) H 08/17/21 05:09 ABG pO2 91.5 mm Hg (80.0-90.0) H 08/09/21 04:30 POC ABG HCO3 24.7 08/17/21 05:09 ABG HCO3 26.6 mmol/L (20.0-26.0) H 08/09/21 04:30 ABG O2 Saturation 99.4 (0-100) 08/17/21 05:09 ABG O2 Content 12.3 (0.0-44) 08/09/21 04:30 POC ABG Base Excess 3.0 08/17/21 05:09 ABG Base Excess 2.0 mmol/L (-2.0-3.0) 08/09/21 04:30 ABG Hemoglobin 8.1 (12.0-17.5) L 08/17/21 05:09 ABG Oxyhemoglobin 98.3 (94-98) H 08/17/21 05:09 ABG Carboxyhemoglobin 1.4 % (0.0-5.0) 08/09/21 04:30 ABG Methemoglobin 0.3 (0.0-1.5) 08/17/21 05:09 ABG Sodium 132.1 mmol/L (136.0-145.0) L 08/17/21 05:09 ABG Potassium 3.5 mmol/L (3.40-4.50) 08/17/21 05:09 ABG Chloride 99.0 mmol/L (98-107) 08/17/21 05:09 ABG Glucose 160 mg/dL (65-95) H 08/17/21 05:09 Oxyhemoglobin 95.4 % (95.0-99.0) 08/09/21 04:30 Carboxyhemoglobin 0.8 (0.5-1.5) 08/17/21 05:09 FiO2 25 % 08/09/21 04:30 FiO2 % 30.0 08/17/21 05:09 Sodium 132 mmol/L (137-145) L 08/18/21 04:00 Potassium 3.7 mmol/L (3.6-5.0) 08/18/21 04:00 Chloride 94.8 mmol/L (98-107) L 08/18/21 04:00 Carbon Dioxide 24 mmol/L (22-30) 08/18/21 04:00 Anion Gap 17 mmol/L 08/18/21 04:00 BUN 36 mg/dL (7-17) H 08/18/21 04:00 Creatinine 4.0 mg/dL (0.6-1.2) H 08/18/21 04:00 Estimated GFR 14 ml/min 08/18/21 04:00 BUN/Creatinine Ratio 9 % 08/18/21 04:00 Glucose 168 mg/dL (65-100) H 08/18/21 04:00 POC Glucose 158 mg/dL (70-105) H 08/18/21 05:38 Calcium 9.3 mg/dL (8.4-10.2) 08/18/21 04:00 Phosphorus 3.70 mg/dL (2.5-4.5) 08/18/21 04:00 Magnesium 2.10 mg/dL (1.7-2.3) 08/18/21 04:00 Total Bilirubin 0.70 mg/dL (0.1-1.2) 08/06/21 16:35 AST 18 units/L (5-40) 08/06/21 16:35 ALT 7 units/L (7-56) 08/06/21 16:35 Alkaline Phosphatase 102 units/L (35-129) 08/06/21 16:35 Troponin T 0.183 ng/mL (0.00-0.029) H* D 08/05/21 18:56 Total Protein 6.2 g/dL (6.3-8.2) L 08/06/21 16:35 Albumin 3.2 g/dL (3.9-5) L 08/06/21 16:35 Albumin/Globulin Ratio 1.1 % 08/06/21 16:35 Triglycerides 399 mg/dL (2-149) H 08/13/21 Unknown Cholesterol 170 mg/dL (50-199) 08/05/21 15:55 LDL Cholesterol Direct 106 mg/dL (50-130) 08/05/21 15:55 HDL Cholesterol 32 mg/dL (40-59) L 08/05/21 15:55 Cholesterol/HDL Ratio 5.31 % 08/05/21 15:55 TSH 7.070 mlU/mL (0.270-4.200) H 08/07/21 13:30 Arterial Blood Glucose 160 mg/dL (65-95) H 08/17/21 05:09 Arterial Blood Ionized Calcium 4.8 mg/dL (4.6-5.3) 08/15/21 05:22 Coronavirus (PCR) Negative (Negative) 08/07/21 Unknown Hepatitis A IgM Ab Non-reactive (NonReactive) 08/08/21 04:26 Hep Bs Antigen Nonreactive (Negative) 08/08/21 04:26 Hep B Core IgM Ab Non-reactive (NonReactive) 08/08/21 04:26 Hepatitis C Antibody Non-reactive (NonReactive) 08/08/21 04:26 Blood Type O POSITIVE 08/06/21 05:30 Antibody Screen Negative 08/06/21 05:30 Crossmatch See Detail 08/06/21 05:30 Active Medications - Current Medications Current Medications: Generic Name Dose Route Start Last Admin Trade Name Freq PRN Reason Stop Dose Admin Acetaminophen 650 mg 08/06/21 16:30 08/06/21 16:30 Acetaminophen 650 Mg Rect Supp OR 650 mg Q6H PRN Administration Pain, Mild (1-3) Albuterol 2.5 mg 08/05/21 20:59 Albuterol 2.5 Mg/3 Ml Nebu IH Q4HRT PRN Shortness Of Breath Amiodarone HCl 400 mg 08/14/21 11:00 08/18/21 10:10 Amiodarone 200 Mg Tab PO 400 mg BID JODI Administration Lipase/Protease/Amylase 1 each 08/07/21 09:47 Lipase 10,500/Protease 25,000/Amylase 43,750 (Units) Dr Thomas FEEDTUBE PRN PRN For Clogged Feeding Tube Aspirin 81 mg 08/07/21 10:00 08/18/21 10:12 Aspirin 81 Mg Tab Chew PO 81 mg QDAY JODI Administration Atorvastatin Calcium 80 mg 08/05/21 22:00 08/17/21 21:01 Atorvastatin 40 Mg Tab PO 80 mg QHS JODI Administration Clonidine HCl 0.3 mg 08/15/21 14:00 08/18/21 06:19 Clonidine 0.1 Mg Tab PO 0.3 mg Q8HR JODI Administration Clopidogrel Bisulfate 75 mg 08/10/21 10:00 08/18/21 10:12 Clopidogrel 75 Mg Tab PO 75 mg QDAY JODI Administration Dextrose 50 ml 08/17/21 18:00 Dextrose 50% In Water (25gm) 50 Ml Syringe IV Q30MIN PRN Hypoglycemia Protocol Famotidine 10 mg 08/09/21 22:00 08/17/21 21:01 Famotidine 10 Mg Tab PO 10 mg BID JODI Administration Fentanyl 50 mcg 08/05/21 17:25 08/16/21 15:15 Fentanyl 100 Mcg/2 Ml Inj IV 50 mcg Q10MIN PRN Administration ANALGESIA Fentanyl 50 mcg 08/16/21 11:48 08/18/21 10:12 Fentanyl 100 Mcg/2 Ml Inj IV 50 mcg Q2H PRN Administration Pain, Moderate (4-6) Heparin Sodium (Porcine) 5,000 unit 08/11/21 10:00 08/18/21 10:13 Heparin 5,000 Unit/1 Ml Vial SUB-Q 5,000 unit Q12HR JODI Administration Hydralazine HCl 10 mg 08/06/21 04:21 08/15/21 07:53 Hydralazine 20 Mg/1 Ml Inj IV 10 mg Q6HR PRN Administration Hypertension Hydralazine HCl 100 mg 08/14/21 10:00 08/18/21 06:20 Hydralazine 100 Mg Tab PO 100 mg Q8HR JODI Administration Hydrophilic Ointment 1 applic 08/05/21 17:25 Lip Therapy Vaseline TP Q2HR PRN Dry Lips Fentanyl Citrate 2,000 mcg in 100 mls @ 3.213 mls/hr 08/05/21 18:00 08/10/21 19:10 Fentanyl Drip Premix IV 0 mcg/kg/hr TITR JODI 0 mls/hr Titration Protocol 1 MCG/KG/HR Propofol 1,000 mg in 100 mls @ 1.928 mls/hr 08/06/21 17:00 08/18/21 10:21 Diprivan 10 Mg/Ml IV 20 mcg/kg/min TITR JODI 7.71 mls/hr Administration Protocol 5 MCG/KG/MIN Nicardipine HCl 50 mg/ Sodium 250 mls @ 25 mls/hr 08/10/21 16:00 08/16/21 07:05 Chloride IV 0 mg/hr TITR JODI 0 mls/hr Titration Protocol 5 MG/HR Sodium Chloride 100 mls @ 999 mls/hr 08/14/21 17:06 Nacl 0.9% IV GLENDY PRN Hypotension Insulin Human Regular 0 units 08/17/21 18:00 08/18/21 06:17 Insulin Regular, Human 100 Units/1 Ml SUB-Q 1 units Q6H JODI Administration Protocol Isosorbide Dinitrate 20 mg 08/11/21 14:00 08/18/21 06:20 Isosorbide Dinitrate 20 Mg Tab PO 20 mg Q8HR JODI Administration Losartan Potassium 100 mg 08/12/21 10:00 08/18/21 10:12 Losartan 25 Mg Tab PO 100 mg DAILY JODI Administration Methylprednisolone Sodium Succinate 40 mg 08/16/21 13:00 08/18/21 06:17 Methylprednisolone Sod Succinate 40 Mg/1 Ml Inj IV 40 mg Q6HR JODI Administration Metoclopramide HCl 5 mg 08/05/21 21:03 Metoclopramide 10 Mg/2 Ml Inj IV Q6H PRN Nausea And Vomiting Metoprolol Tartrate 100 mg 08/12/21 12:00 08/18/21 10:12 Metoprolol Tartrate 50 Mg Tab PO 100 mg BID JODI Administration Minoxidil 5 mg 08/15/21 10:00 08/18/21 10:16 Minoxidil 2.5 Mg Tab PO 5 mg BID JODI Administration Multi-Ingred Cream/Lotion/Oil/Oint 1 applic 08/05/21 17:25 Mineral Oil/Petrolatum, White Ophth Oint 3.5 Gm OU Q4HR PRN Dry Eye(s) Ondansetron HCl 4 mg 08/05/21 21:03 Ondansetron 4 Mg/2 Ml Inj IV Q8H PRN Nausea And Vomiting Oxycodone/Acetaminophen 1 tab 08/05/21 21:03 Oxycodone /Acetaminophen 5-325mg Tab PO Q6H PRN Pain, Moderate (4-6) Senna 8.8 mg 08/07/21 13:00 08/18/21 10:10 Sennosides Oral Liqd 8.8 Mg/5 Ml Oral Liqd FEEDTUBE 8.8 mg BID JODI Administration Simple Syrup 15 ml 08/07/21 09:47 Simple Syrup 15 Ml FEEDTUBE PRN PRN Hypoglycemia Simple Syrup 30 ml 08/07/21 09:47 Simple Syrup 15 Ml FEEDTUBE PRN PRN Hypoglycemia Sodium Bicarbonate 325 mg 08/07/21 09:47 Sodium Bicarbonate 325 Mg Tab FEEDTUBE PRN PRN For Clogged Feeding Tube Sodium Chloride 10 ml 08/05/21 22:00 08/18/21 10:16 Sodium Chloride 0.9% 10 Ml Flush Syringe IV 10 ml BID JODI Administration Sodium Chloride 10 ml 08/05/21 21:03 Sodium Chloride 0.9% 10 Ml Flush Syringe IV PRN PRN LINE FLUSH Nutrition/Malnutrition Assess - Dietary Evaluation Nutrition/Malnutrition Findings: Nutrition Notes Start: 08/07/21 09:12 Freq: Status: Active Protocol: Document 08/16/21 12:51 [facility] (Rec: 08/16/21 13:04 [facility] [id number]) Nutrition Notes Initial or Follow up Reassessment Current Diagnosis CKD (stage V CKD),Coronary Artery Disease,Diabetes, Hypertension,Heart Failure Other Pertinent Diagnosis Sustained ventricular tachycardia, anemia Current Diet TF - Nepro at 32ml/hr Labs/Tests Na 132 BUN 26 Cr 3.9 Pertinent Medications Propofol at 3.855ml/hr ( provides 102 kcal), Senokot Height 5 ft 2 in Weight 64.25 kg [place] Body Weight (kg) 50.00 BMI 25.9 Weight Status Appropriate Subjective/Other Information Pt self-extubated this am, however, was re-intubated and remains on vent support. TF off at time of visit (12:18). Pending transfer to [place] for ablation. Burn Absent Trauma Absent #1 Nutrition Diagnosis Inadequate oral intake Diagnosis Progress(for reassessment Continues documentation) Is patient on ventilator? Yes Is Patient Ambulatory and/or Out of Bed No REE-([facility]-confined to bed) 1403.892 Calculation Used for Recommendations [facility] Additional Notes Pro needs >1.2g/kg: >77g/day Fluid needs 1-1.5L/day Nutrition Intervention Nutrition Support: Resume TF when medically feasible; consider 50ml water flush q4h until hyponatremia resolves, then 150ml q4h. Goal #1 Resume TF to meet nutrient needs Follow-Up By: 08/19/21 Additional Comments F/U: TF re-start, Na lab/water flushes, resp status
--- NOTE | 2021-08-18 15:54 | Progress Note ---
Assessment and Plan - Patient Problems (1) Hypokalemia Current Visit: Yes Status: Acute Plan to address problem: Potassium is back to normal. Follow-up (2) End stage renal disease on dialysis Current Visit: Yes Status: Chronic Plan to address problem: Hemodialysis on a Thursday, Thursday and Thursday schedule. (3) Anemia in end-stage renal disease Current Visit: Yes Status: Acute Plan to address problem: Give erythropoietin on dialysis and follow-up hemoglobin level (4) Sustained ventricular tachycardia Current Visit: Yes Status: Acute Plan to address problem: Continue management by manager specialty. Awaiting transfer to [place] for VT ablation Subjective Date of service: 08/18/21 Principal diagnosis: Recurrent VT Interval history: Patient seen lying in bed in the ICU. She is on the ventilator. She is awake and communicating nonverbally. She is not on vasopressors. Objective - Exam Narrative Exam: Middle-aged female lying in bed intubated on ventilator HEENT: NCAT, endotracheal tube intact Neck: Supple, no venous distention CVS: S1S2 RRR with no murmur, rub or gallop Chest: Clear to auscultation Abdomen: Protuberant, soft, nontender, no organomegaly, bowel sounds are present Extremities: 2+ pitting edema Neuro: Awake, alert, communicating nonverbally - Vital Signs Vital signs: Vital Signs - 12hr 08/18/21 08/18/21 08/18/21 04:00 04:10 04:30 Temperature 97.8 F Pulse Rate 70 70 70 Pulse Rate [ From Monitor] Respiratory 10 L 11 L Rate Blood Pressure 150/47 150/47 134/44 O2 Sat by Pulse 100 100 100 Oximetry 08/18/21 08/18/21 08/18/21 05:00 05:30 06:00 Temperature Pulse Rate 70 70 70 Pulse Rate [ From Monitor] Respiratory 11 L 12 11 L Rate Blood Pressure 134/44 120/30 127/38 O2 Sat by Pulse 100 100 100 Oximetry 08/18/21 08/18/21 08/18/21 06:19 06:20 06:30 Temperature Pulse Rate 70 70 70 Pulse Rate [ From Monitor] Respiratory 12 Rate Blood Pressure 130/64 130/65 120/30 O2 Sat by Pulse 100 Oximetry 08/18/21 08/18/21 08/18/21 07:00 07:28 07:30 Temperature 99.4 F Pulse Rate 70 70 Pulse Rate [ From Monitor] Respiratory 11 L 12 Rate Blood Pressure 118/99 118/99 O2 Sat by Pulse 100 99 Oximetry 08/18/21 08/18/21 08/18/21 07:40 08:00 08:30 Temperature 99.4 F Pulse Rate 70 70 70 Pulse Rate [ 70 From Monitor] Respiratory 9 L 9 L Rate Blood Pressure 94/73 116/45 117/75 O2 Sat by Pulse 100 100 100 Oximetry 08/18/21 08/18/21 08/18/21 09:00 09:30 10:00 Temperature Pulse Rate 70 70 70 Pulse Rate [ From Monitor] Respiratory 20 13 11 L Rate Blood Pressure 117/75 104/37 125/53 O2 Sat by Pulse 99 100 100 Oximetry 08/18/21 08/18/21 08/18/21 10:12 10:30 11:00 Temperature Pulse Rate 70 70 70 Pulse Rate [ From Monitor] Respiratory 10 L 12 Rate Blood Pressure 125/53 138/94 O2 Sat by Pulse 100 100 Oximetry 08/18/21 08/18/21 08/18/21 11:30 11:43 12:00 Temperature Pulse Rate 70 70 70 Pulse Rate [ 70 From Monitor] Respiratory 11 L 14 Rate Blood Pressure 129/84 170/69 137/54 O2 Sat by Pulse 100 100 100 Oximetry 08/18/21 08/18/21 12:30 12:38 Temperature 98.2 F Pulse Rate 70 Pulse Rate [ From Monitor] Respiratory 11 L Rate Blood Pressure 137/54 O2 Sat by Pulse 100 Oximetry - Lab 08/18/21 04:00 08/18/21 04:00 Most recent lab results ABG pH 7.579 (7.320-7.450) H 08/17/21 05:09 ABG pCO2 41.2 mm Hg 08/09/21 04:30 ABG pO2 91.5 mm Hg (80.0-90.0) H 08/09/21 04:30 ABG HCO3 26.6 mmol/L (20.0-26.0) H 08/09/21 04:30 ABG O2 Saturation 99.4 (0-100) 08/17/21 05:09 Calcium 9.3 mg/dL (8.4-10.2) 08/18/21 04:00 Phosphorus 3.70 mg/dL (2.5-4.5) 08/18/21 04:00 Magnesium 2.10 mg/dL (1.7-2.3) 08/18/21 04:00 Medications & Allergies - Medications Allergies/Adverse Reactions: Allergies No Known Allergies Allergy (Unverified 07/10/21 20:57) Home Medications: Home Medications Medication Instructions Recorded Confirmed Last Taken Type Icosapent Ethyl [Vascepa] 2 gm PO BID 07/12/21 07/12/21 Unknown History Losartan [Cozaar] 25 mg PO BID 07/12/21 07/12/21 Unknown History ALBUTEROL NEB's [Proventil 0.083% 2.5 mg IH Q4HRT PRN nebu 07/15/21 Unknown Rx NEBS] Acetaminophen [Acetaminophen 650 mg SC Q4H PRN supp.rect 07/15/21 Unknown Rx SUPPOS] Acetaminophen [Acetaminophen TAB] 650 mg PO Q4H PRN tablet 07/15/21 Unknown Rx Amiodarone [Cordarone 200 MG TAB] 200 mg PO BID tablet 07/15/21 Unknown Rx AtorvaSTATin [Lipitor] 80 mg PO QHS tablet 07/15/21 Unknown Rx Clopidogrel [Plavix] 75 mg PO QDAY tablet 07/15/21 Unknown Rx Dextrose 50% in Water [D50W (25GM) 50 ml IV Q30MIN PRN syringe 07/15/21 Unknown Rx Syringe] Free Water 60 ml PO Q4HR oral.liqd 07/15/21 Unknown Rx Isosorbide Dinitrate [Isordil] 5 mg PO Q8HR tablet 07/15/21 Unknown Rx Lipase/Protease/Amylase [Pancreaze 1 each FEEDTUBE PRN PRN capsule 07/15/[address] 10,500 Unit] Lispro Insulin [HumaLOG] 0 unit SUB-Q Q6HR units 07/15/21 Unknown Rx Metoprolol [Lopressor TAB] 25 mg PO TID tablet 07/15/21 Unknown Rx Simple Syrup 30 ml FEEDTUBE PRN PRN oral.liqd 07/15/21 Unknown Rx hydrALAZINE [Apresoline INJ] 10 mg IV Q6H PRN vial 07/15/21 Unknown Rx Active Medications: Generic Name Dose Route Start Last Admin Trade Name Freq PRN Reason Stop Dose Admin Acetaminophen 650 mg 08/06/21 16:30 08/06/21 16:30 Acetaminophen 650 Mg Rect Supp SC 650 mg Q6H PRN Administration Pain, Mild (1-3) Albuterol 2.5 mg 08/05/21 20:59 Albuterol 2.5 Mg/3 Ml Nebu IH Q4HRT PRN Shortness Of Breath Amiodarone HCl 400 mg 08/14/21 11:00 08/18/21 10:10 Amiodarone 200 Mg Tab PO 400 mg BID JODI Administration Lipase/Protease/Amylase 1 each 08/07/21 09:47 Lipase 10,500/Protease 25,000/Amylase 43,750 (Units) Dr Thomas FEEDTUBE PRN PRN For Clogged Feeding Tube Aspirin 81 mg 08/07/21 10:00 08/18/21 10:12 Aspirin 81 Mg Tab Chew PO 81 mg QDAY JODI Administration Atorvastatin Calcium 80 mg 08/05/21 22:00 08/17/21 21:01 Atorvastatin 40 Mg Tab PO 80 mg QHS JODI Administration Clonidine HCl 0.3 mg 08/15/21 14:00 08/18/21 06:19 Clonidine 0.1 Mg Tab PO 0.3 mg Q8HR JODI Administration Clopidogrel Bisulfate 75 mg 08/10/21 10:00 08/18/21 10:12 Clopidogrel 75 Mg Tab PO 75 mg QDAY JODI Administration Dextrose 50 ml 08/17/21 18:00 Dextrose 50% In Water (25gm) 50 Ml Syringe IV Q30MIN PRN Hypoglycemia Protocol Famotidine 10 mg 08/09/21 22:00 08/17/21 21:01 Famotidine 10 Mg Tab PO 10 mg BID JODI Administration Fentanyl 50 mcg 08/05/21 17:25 08/16/21 15:15 Fentanyl 100 Mcg/2 Ml Inj IV 50 mcg Q10MIN PRN Administration ANALGESIA Fentanyl 50 mcg 08/16/21 11:48 08/18/21 10:12 Fentanyl 100 Mcg/2 Ml Inj IV 50 mcg Q2H PRN Administration Pain, Moderate (4-6) Heparin Sodium (Porcine) 5,000 unit 08/11/21 10:00 08/18/21 10:13 Heparin 5,000 Unit/1 Ml Vial SUB-Q 5,000 unit Q12HR JODI Administration Hydralazine HCl 10 mg 08/06/21 04:21 08/15/21 07:53 Hydralazine 20 Mg/1 Ml Inj IV 10 mg Q6HR PRN Administration Hypertension Hydralazine HCl 100 mg 08/14/21 10:00 08/18/21 06:20 Hydralazine 100 Mg Tab PO 100 mg Q8HR [facility] Administration Hydrophilic Ointment 1 applic 08/05/21 17:25 Lip Therapy Vaseline TP Q2HR PRN Dry Lips Fentanyl Citrate 2,000 mcg in 100 mls @ 3.213 mls/hr 08/05/21 18:00 08/10/21 19:10 Fentanyl Drip Premix IV 0 mcg/kg/hr TITR JODI 0 mls/hr Titration Protocol 1 MCG/KG/HR Propofol 1,000 mg in 100 mls @ 1.928 mls/hr 08/06/21 17:00 08/18/21 10:21 Diprivan 10 Mg/Ml IV 20 mcg/kg/min TITR JODI 7.71 mls/hr Administration Protocol 5 MCG/KG/MIN Nicardipine HCl 50 mg/ Sodium 250 mls @ 25 mls/hr 08/10/21 16:00 08/16/21 07:05 Chloride IV 0 mg/hr TITR JODI 0 mls/hr Titration Protocol 5 MG/HR Sodium Chloride 100 mls @ 999 mls/hr 08/14/21 17:06 Nacl 0.9% IV GLENDY PRN Hypotension Insulin Human Regular 0 units 08/17/21 18:00 08/18/21 13:05 Insulin Regular, Human 100 Units/1 Ml SUB-Q Not Given Q6H [facility] Protocol Isosorbide Dinitrate 20 mg 08/11/21 14:00 08/18/21 06:20 Isosorbide Dinitrate 20 Mg Tab PO 20 mg Q8HR [facility] Administration Losartan Potassium 100 mg 08/12/21 10:00 08/18/21 10:12 Losartan 25 Mg Tab PO 100 mg DAILY [facility] Administration Methylprednisolone Sodium Succinate 40 mg 08/16/21 13:00 08/18/21 13:05 Methylprednisolone Sod Succinate 40 Mg/1 Ml Inj IV 40 mg Q6HR JODI Administration Metoclopramide HCl 5 mg 08/05/21 21:03 Metoclopramide 10 Mg/2 Ml Inj IV Q6H PRN Nausea And Vomiting Metoprolol Tartrate 100 mg 08/12/21 12:00 08/18/21 10:12 Metoprolol Tartrate 50 Mg Tab PO 100 mg BID [facility] Administration Minoxidil 5 mg 08/15/21 10:00 08/18/21 10:16 Minoxidil 2.5 Mg Tab PO 5 mg BID JODI Administration Multi-Ingred Cream/Lotion/Oil/Oint 1 applic 08/05/21 17:25 Mineral Oil/Petrolatum, White Ophth Oint 3.5 Gm OU Q4HR PRN Dry Eye(s) Ondansetron HCl 4 mg 08/05/21 21:03 Ondansetron 4 Mg/2 Ml Inj IV Q8H PRN Nausea And Vomiting Oxycodone/Acetaminophen 1 tab 08/05/21 21:03 Oxycodone /Acetaminophen 5-325mg Tab PO Q6H PRN Pain, Moderate (4-6) Senna 8.8 mg 08/07/21 13:00 08/18/21 10:10 Sennosides Oral Liqd 8.8 Mg/5 Ml Oral Liqd FEEDTUBE 8.8 mg BID JODI Administration Simple Syrup 15 ml 08/07/21 09:47 Simple Syrup 15 Ml FEEDTUBE PRN PRN Hypoglycemia Simple Syrup 30 ml 08/07/21 09:47 Simple Syrup 15 Ml FEEDTUBE PRN PRN Hypoglycemia Sodium Bicarbonate 325 mg 08/07/21 09:47 Sodium Bicarbonate 325 Mg Tab FEEDTUBE PRN PRN For Clogged Feeding Tube Sodium Chloride 10 ml 08/05/21 22:00 08/18/21 10:16 Sodium Chloride 0.9% 10 Ml Flush Syringe IV 10 ml BID JODI Administration Sodium Chloride 10 ml 08/05/21 21:03 Sodium Chloride 0.9% 10 Ml Flush Syringe IV PRN PRN LINE FLUSH
[2021-08-19] MEDS: methylPREDNISolone Sod Succinate 40 MG/1 ML INJ IV SCH ×4 (00:57→18:36)
[2021-08-19] MEDS: INSULIN REGULAR, HUMAN 100 UNITS/1 ML SUB-Q SCH ×4 (00:58→18:27)
[2021-08-19] MEDS: fentaNYL 100 MCG/2 ML INJ IV PRN ×2 (03:40→15:48)
[2021-08-19 06:10] LABS: Calcium 9.3 mg/dL (8.4-10.2)
[2021-08-19 06:17] LABS: Hemoglobin 8.2 gm/dl (10.1-14.3); Mean Corpuscular HGB Conc 33 % (30-34); Mean Corpuscular Volume 81 fl (79-97); Platelet Count 506 K/mm3 (140-440); Red Blood Count 3.09 M/mm3 (3.65-5.03)
[2021-08-19] MEDS: cloNIDine 0.1 MG TAB PO SCH ×3 (06:20→21:30)
[2021-08-19] MEDS: hydrALAZINE 100 MG TAB PO SCH ×3 (06:20→21:30)
[2021-08-19] MEDS: ISOSORBIDE DINITRATE 20 MG TAB PO SCH ×3 (06:21→22:21)
[2021-08-19] MEDS: EPOETIN ALFA-EPBX 10,000 UNIT/1 ML VIAL IV PRN (09:11)
--- NOTE | 2021-08-19 11:09 | Progress Note ---
Assessment and Plan - Patient Problems (1) End stage renal disease on dialysis Current Visit: Yes Status: Chronic Plan to address problem: Cont hemodialysis on a Thursday, Thursday and Thursday schedule. (2) Hypokalemia Current Visit: Yes Status: Acute Plan to address problem: Potassium is back to normal. Follow-up (3) Anemia in end-stage renal disease Current Visit: Yes Status: Acute Plan to address problem: Give erythropoietin on dialysis and follow-up hemoglobin level (4) VT (ventricular tachycardia) Current Visit: Yes Status: Acute Plan to address problem: Continue management by crm analyst. Awaiting transfer to [place] for VT ablation Subjective Date of service: 08/19/21 Principal diagnosis: Recurrent VT Interval history: Pt seen and examined in the ICU during HD, tolerating HD well without acute issues. pt remains on vent support, off cardene gtt Objective - Vital Signs Vital signs: Vital Signs - 12hr 08/18/21 08/18/21 08/19/21 23:31 23:51 00:00 Temperature 97.8 F Pulse Rate 70 70 Pulse Rate [ 70 From Monitor] Respiratory 11 L 11 L Rate Blood Pressure 141/120 151/127 O2 Sat by Pulse 100 Oximetry O2 Sat by Pulse Oximetry [ Anterior Bilateral] O2 Sat by Pulse Oximetry [ Bases] O2 Sat by Pulse Oximetry [ Bilateral Bases ] O2 Sat by Pulse Oximetry [ Bilateral Throughout] 08/19/21 08/19/21 08/19/21 00:20 00:31 01:00 Temperature Pulse Rate 70 70 70 Pulse Rate [ From Monitor] Respiratory 10 L 11 L Rate Blood Pressure 120/42 121/50 133/101 O2 Sat by Pulse 100 Oximetry O2 Sat by Pulse Oximetry [ Anterior Bilateral] O2 Sat by Pulse Oximetry [ Bases] O2 Sat by Pulse Oximetry [ Bilateral Bases ] O2 Sat by Pulse Oximetry [ Bilateral Throughout] 08/19/21 08/19/21 08/19/21 01:30 02:01 02:30 Temperature Pulse Rate 70 70 70 Pulse Rate [ From Monitor] Respiratory 12 14 14 Rate Blood Pressure 124/97 165/61 129/80 O2 Sat by Pulse 100 Oximetry O2 Sat by Pulse Oximetry [ Anterior Bilateral] O2 Sat by Pulse Oximetry [ Bases] O2 Sat by Pulse Oximetry [ Bilateral Bases ] O2 Sat by Pulse Oximetry [ Bilateral Throughout] 08/19/21 08/19/21 08/19/21 03:01 03:31 04:00 Temperature 99.5 F Pulse Rate 70 70 70 Pulse Rate [ 70 From Monitor] Respiratory 13 Rate Blood Pressure 133/44 133/44 O2 Sat by Pulse 100 100 100 Oximetry O2 Sat by Pulse Oximetry [ Anterior Bilateral] O2 Sat by Pulse Oximetry [ Bases] O2 Sat by Pulse Oximetry [ Bilateral Bases ] O2 Sat by Pulse Oximetry [ Bilateral Throughout] 08/19/21 08/19/21 08/19/21 04:01 04:15 04:30 Temperature Pulse Rate 70 70 70 Pulse Rate [ From Monitor] Respiratory 11 L 14 Rate Blood Pressure 133/44 149/57 154/59 O2 Sat by Pulse 100 100 100 Oximetry O2 Sat by Pulse Oximetry [ Anterior Bilateral] O2 Sat by Pulse Oximetry [ Bases] O2 Sat by Pulse Oximetry [ Bilateral Bases ] O2 Sat by Pulse Oximetry [ Bilateral Throughout] 08/19/21 08/19/21 08/19/21 05:01 05:31 06:01 Temperature Pulse Rate 70 70 70 Pulse Rate [ From Monitor] Respiratory 11 L 10 L 12 Rate Blood Pressure 154/59 O2 Sat by Pulse 100 100 97 Oximetry O2 Sat by Pulse Oximetry [ Anterior Bilateral] O2 Sat by Pulse Oximetry [ Bases] O2 Sat by Pulse Oximetry [ Bilateral Bases ] O2 Sat by Pulse Oximetry [ Bilateral Throughout] 08/19/21 08/19/21 08/19/21 06:30 07:01 07:31 Temperature Pulse Rate 70 70 70 Pulse Rate [ From Monitor] Respiratory 13 11 L 13 Rate Blood Pressure 179/75 203/77 203/77 O2 Sat by Pulse 90 100 97 Oximetry O2 Sat by Pulse Oximetry [ Anterior Bilateral] O2 Sat by Pulse Oximetry [ Bases] O2 Sat by Pulse Oximetry [ Bilateral Bases ] O2 Sat by Pulse Oximetry [ Bilateral Throughout] 08/19/21 08/19/21 08/19/21 07:35 07:40 07:45 Temperature 97.9 F Pulse Rate 70 75 70 Pulse Rate [ From Monitor] Respiratory 12 Rate Blood Pressure 102/37 179/75 177/79 O2 Sat by Pulse 96 Oximetry O2 Sat by Pulse 100 Oximetry [ Anterior Bilateral] O2 Sat by Pulse 100 Oximetry [ Bases] O2 Sat by Pulse 100 Oximetry [ Bilateral Bases ] O2 Sat by Pulse 100 Oximetry [ Bilateral Throughout] 08/19/21 08/19/21 08/19/21 08:00 08:01 08:15 Temperature 97.9 F Pulse Rate 70 70 70 Pulse Rate [ 70 From Monitor] Respiratory 11 L Rate Blood Pressure 140/41 159/54 140/42 O2 Sat by Pulse 100 100 Oximetry O2 Sat by Pulse Oximetry [ Anterior Bilateral] O2 Sat by Pulse Oximetry [ Bases] O2 Sat by Pulse Oximetry [ Bilateral Bases ] O2 Sat by Pulse Oximetry [ Bilateral Throughout] 08/19/21 08/19/21 08/19/21 08:30 08:45 09:00 Temperature Pulse Rate 70 70 70 Pulse Rate [ From Monitor] Respiratory 9 L 12 Rate Blood Pressure 133/40 120/33 118/41 O2 Sat by Pulse 100 100 Oximetry O2 Sat by Pulse Oximetry [ Anterior Bilateral] O2 Sat by Pulse Oximetry [ Bases] O2 Sat by Pulse Oximetry [ Bilateral Bases ] O2 Sat by Pulse Oximetry [ Bilateral Throughout] 08/19/21 08/19/21 08/19/21 09:15 09:30 09:45 Temperature Pulse Rate 70 70 70 Pulse Rate [ From Monitor] Respiratory Rate Blood Pressure 117/46 110/45 128/49 O2 Sat by Pulse Oximetry O2 Sat by Pulse Oximetry [ Anterior Bilateral] O2 Sat by Pulse Oximetry [ Bases] O2 Sat by Pulse Oximetry [ Bilateral Bases ] O2 Sat by Pulse Oximetry [ Bilateral Throughout] 08/19/21 08/19/21 08/19/21 10:00 10:15 10:30 Temperature Pulse Rate 70 70 70 Pulse Rate [ From Monitor] Respiratory Rate Blood Pressure 139/40 118/40 123/54 O2 Sat by Pulse Oximetry O2 Sat by Pulse Oximetry [ Anterior Bilateral] O2 Sat by Pulse Oximetry [ Bases] O2 Sat by Pulse Oximetry [ Bilateral Bases ] O2 Sat by Pulse Oximetry [ Bilateral Throughout] 08/19/21 08/19/21 08/19/21 10:45 11:00 11:04 Temperature Pulse Rate 70 70 Pulse Rate [ From Monitor] Respiratory Rate Blood Pressure 121/45 170/86 O2 Sat by Pulse Oximetry O2 Sat by Pulse 100 Oximetry [ Anterior Bilateral] O2 Sat by Pulse 100 Oximetry [ Bases] O2 Sat by Pulse 100 Oximetry [ Bilateral Bases ] O2 Sat by Pulse 100 Oximetry [ Bilateral Throughout] - General Appearance General appearance: well-developed, well-nourished, appears stated age, intubated EENT: ATNC, PERRL, mucous membranes moist Neck: no JVD Respiratory: Present: Clear to Ascultation Cardiology: regular, S1S2 Gastrointestinal: normoactive bowel sounds Integumentary: no rash, other (+ edema ) Neurologic: other (intubated, on vent ) Psychiatric: mood/affect appropriate, cooperative - Lab 08/19/21 04:00 08/19/21 04:00 Most recent lab results ABG pH 7.579 (7.320-7.450) H 08/17/21 05:09 ABG pCO2 41.2 mm Hg 08/09/21 04:30 ABG pO2 91.5 mm Hg (80.0-90.0) H 08/09/21 04:30 ABG HCO3 26.6 mmol/L (20.0-26.0) H 08/09/21 04:30 ABG O2 Saturation 99.4 (0-100) 08/17/21 05:09 Calcium 9.3 mg/dL (8.4-10.2) 08/19/21 04:00 Phosphorus 3.70 mg/dL (2.5-4.5) 08/18/21 04:00 Magnesium 2.10 mg/dL (1.7-2.3) 08/18/21 04:00 Medications & Allergies - Medications Allergies/Adverse Reactions: Allergies No Known Allergies Allergy (Unverified 07/10/21 20:57) Home Medications: Home Medications Medication Instructions Recorded Confirmed Last Taken Type Icosapent Ethyl [Vascepa] 2 gm PO BID 07/12/21 07/12/21 Unknown History Losartan [Cozaar] 25 mg PO BID 07/12/21 07/12/21 Unknown History ALBUTEROL NEB's [Proventil 0.083% 2.5 mg IH Q4HRT PRN nebu 07/15/21 Unknown Rx NEBS] Acetaminophen [Acetaminophen 650 mg RI Q4H PRN supp.rect 07/15/21 Unknown Rx SUPPOS] Acetaminophen [Acetaminophen TAB] 650 mg PO Q4H PRN tablet 07/15/21 Unknown Rx Amiodarone [Cordarone 200 MG TAB] 200 mg PO BID tablet 07/15/21 Unknown Rx AtorvaSTATin [Lipitor] 80 mg PO QHS tablet 07/15/21 Unknown Rx Clopidogrel [Plavix] 75 mg PO QDAY tablet 07/15/21 Unknown Rx Dextrose 50% in Water [D50W (25GM) 50 ml IV Q30MIN PRN syringe 07/15/21 Unknown Rx Syringe] Free Water 60 ml PO Q4HR oral.liqd 07/15/21 Unknown Rx Isosorbide Dinitrate [Isordil] 5 mg PO Q8HR tablet 07/15/21 Unknown Rx Lipase/Protease/Amylase [Pancreaze 1 each FEEDTUBE PRN PRN capsule 07/15/21 Unknown Rx 10,500 Unit] Lispro Insulin [HumaLOG] 0 unit SUB-Q Q6HR units 07/15/21 Unknown Rx Metoprolol [Lopressor TAB] 25 mg PO TID tablet 07/15/21 Unknown Rx Simple Syrup 30 ml FEEDTUBE PRN PRN oral.liqd 07/15/21 Unknown Rx hydrALAZINE [Apresoline INJ] 10 mg IV Q6H PRN vial 07/15/21 Unknown Rx Active Medications: Generic Name Dose Route Start Last Admin Trade Name Freq PRN Reason Stop Dose Admin Acetaminophen 650 mg 08/06/21 16:30 08/06/21 16:30 Acetaminophen 650 Mg Rect Supp RI 650 mg Q6H PRN Administration Pain, Mild (1-3) Albuterol 2.5 mg 08/05/21 20:59 Albuterol 2.5 Mg/3 Ml Nebu IH Q4HRT PRN Shortness Of Breath Amiodarone HCl 400 mg 08/14/21 11:00 08/18/21 22:00 Amiodarone 200 Mg Tab PO 400 mg BID JODI Administration Lipase/Protease/Amylase 1 each 08/07/21 09:47 Lipase 10,500/Protease 25,000/Amylase 43,750 (Units) Dr Thomas FEEDTUBE PRN PRN For Clogged Feeding Tube Aspirin 81 mg 08/07/21 10:00 08/18/21 10:12 Aspirin 81 Mg Tab Chew PO 81 mg QDAY JODI Administration Atorvastatin Calcium 80 mg 08/05/21 22:00 08/18/21 22:02 Atorvastatin 40 Mg Tab PO 80 mg QHS JODI Administration Clonidine HCl 0.3 mg 08/15/21 14:00 08/19/21 06:20 Clonidine 0.1 Mg Tab PO Not Given Q8HR JODI Clopidogrel Bisulfate 75 mg 08/10/21 10:00 08/18/21 10:12 Clopidogrel 75 Mg Tab PO 75 mg QDAY JODI Administration Dextrose 50 ml 08/17/21 18:00 Dextrose 50% In Water (25gm) 50 Ml Syringe IV Q30MIN PRN Hypoglycemia Protocol Famotidine 10 mg 08/09/21 22:00 08/18/21 22:04 Famotidine 10 Mg Tab PO 10 mg BID JODI Administration Fentanyl 50 mcg 08/16/21 11:48 08/18/21 20:15 Fentanyl 100 Mcg/2 Ml Inj IV 50 mcg Q2H PRN Administration Pain, Moderate (4-6) Heparin Sodium (Porcine) 5,000 unit 08/11/21 10:00 08/18/21 22:00 Heparin 5,000 Unit/1 Ml Vial SUB-Q 5,000 unit Q12HR JODI Administration Hydralazine HCl 10 mg 08/06/21 04:21 08/15/21 07:53 Hydralazine 20 Mg/1 Ml Inj IV 10 mg Q6HR PRN Administration Hypertension Hydralazine HCl 100 mg 08/14/21 10:00 08/19/21 06:20 Hydralazine 100 Mg Tab PO Not Given Q8HR JODI Hydrophilic Ointment 1 applic 08/05/21 17:25 Lip Therapy Vaseline TP Q2HR PRN Dry Lips Propofol 1,000 mg in 100 mls @ 1.928 mls/hr 08/06/21 17:00 08/19/21 02:58 Diprivan 10 Mg/Ml IV 30 mcg/kg/min TITR JODI 11.565 mls/hr Administration Protocol 5 MCG/KG/MIN Sodium Chloride 100 mls @ 999 mls/hr 08/14/21 17:06 Nacl 0.9% IV GLENDY PRN Hypotension Insulin Human Regular 0 units 08/17/21 18:00 08/19/21 06:18 Insulin Regular, Human 100 Units/1 Ml SUB-Q Not Given Q6H [facility] Protocol Isosorbide Dinitrate 20 mg 08/11/21 14:00 08/19/21 06:21 Isosorbide Dinitrate 20 Mg Tab PO Not Given Q8HR [facility] Losartan Potassium 100 mg 08/12/21 10:00 08/18/21 10:12 Losartan 25 Mg Tab PO 100 mg DAILY JODI Administration Methylprednisolone Sodium Succinate 40 mg 08/16/21 13:00 08/19/21 06:23 Methylprednisolone Sod Succinate 40 Mg/1 Ml Inj IV 40 mg Q6HR JODI Administration Metoclopramide HCl 5 mg 08/05/21 21:03 Metoclopramide 10 Mg/2 Ml Inj IV Q6H PRN Nausea And Vomiting Metoprolol Tartrate 100 mg 08/12/21 12:00 08/18/21 22:03 Metoprolol Tartrate 50 Mg Tab PO Not Given BID JODI Minoxidil 5 mg 08/15/21 10:00 08/18/21 21:59 Minoxidil 2.5 Mg Tab PO 5 mg BID JODI Administration Multi-Ingred Cream/Lotion/Oil/Oint 1 applic 08/05/21 17:25 Mineral Oil/Petrolatum, White Ophth Oint 3.5 Gm OU Q4HR PRN Dry Eye(s) Ondansetron HCl 4 mg 08/05/21 21:03 Ondansetron 4 Mg/2 Ml Inj IV Q8H PRN Nausea And Vomiting Oxycodone/Acetaminophen 1 tab 08/05/21 21:03 Oxycodone /Acetaminophen 5-325mg Tab PO Q6H PRN Pain, Moderate (4-6) Senna 8.8 mg 08/07/21 13:00 08/18/21 21:59 Sennosides Oral Liqd 8.8 Mg/5 Ml Oral Liqd FEEDTUBE 8.8 mg BID JODI Administration Simple Syrup 15 ml 08/07/21 09:47 Simple Syrup 15 Ml FEEDTUBE PRN PRN Hypoglycemia Simple Syrup 30 ml 08/07/21 09:47 Simple Syrup 15 Ml FEEDTUBE PRN PRN Hypoglycemia Sodium Bicarbonate 325 mg 08/07/21 09:47 Sodium Bicarbonate 325 Mg Tab FEEDTUBE PRN PRN For Clogged Feeding Tube Sodium Chloride 10 ml 08/05/21 22:00 08/18/21 22:03 Sodium Chloride 0.9% 10 Ml Flush Syringe IV 10 ml BID JODI Administration Sodium Chloride 10 ml 08/05/21 21:03 Sodium Chloride 0.9% 10 Ml Flush Syringe IV PRN PRN LINE FLUSH
[2021-08-19] MEDS: HEPARIN 5,000 UNIT/1 ML VIAL SUB-Q SCH ×2 (11:25→22:20)
[2021-08-19] MEDS: ASPIRIN 81 MG TAB CHEW PO SCH (11:26)
[2021-08-19] MEDS: FAMOTIDINE 10 MG TAB PO SCH ×2 (11:26→22:21)
[2021-08-19] MEDS: MINOXIDIL 2.5 MG TAB PO SCH ×2 (11:26→22:21)
[2021-08-19] MEDS: AMIODARONE 200 MG TAB PO SCH ×2 (11:26→22:20)
[2021-08-19] MEDS: LOSARTAN 25 MG TAB PO SCH (11:27)
[2021-08-19] MEDS: CLOPIDOGREL 75 MG TAB PO SCH (11:27)
[2021-08-19] MEDS: METOPROLOL TARTRATE 50 MG TAB PO SCH ×2 (11:29→21:31)
[2021-08-19] MEDS: SENNOSIDES ORAL LIQD 8.8 MG/5 ML ORAL LIQD FEEDTUBE SCH ×2 (11:29→22:22)
--- NOTE | 2021-08-19 12:55 | Progress Note ---
Assessment and Plan 60 y/o female with known VT in the past, systolic heart failure with BIV AICD admitted with recurrent VT and electrolyte abnormality 08/19/21: Continue IV steroids until leak test today. If leak is present will likely stop steroids. Will consider extubation yet again however if fails this time will need trach. Continue rate control therapy. Guarded prognosis. 08/16/21: Still no beds at [facility]. Will do a leak test this afternoon. If no leak, then will start IV steroid therapy. Patient was only intubated for airway protection to help with catecholamine storm associated with VT storm. No prior lung disease. The multiple intubation may have caused some scarring in the trachea but right now this is not known. Continue supportive measures but may end up needing trach. 08/15/21: Will discuss with CM if any further news on [facility] acceptance. Attempt PSV trials today. BP still elevated and still on Cardene despite increase in med therapy. Will discuss with cards, and renal, and pharm on rounds. 08/14/21: Given no ICU beds at [facility], will attempt to transfer to [facility] with hopes that patient can get ablation and then be transferred back over for further vent weaning. 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 Agree with [facility] increasing therapy for HTN. Will attempt to wean Cardene 08/13/21: Will start Clonidine 0.1 TID given her persistent need for Cardene drip. Will extubate today and transfer to tele floor. Hoping this will help the patient get a bed faster at [facility]. Rate control per cards. 08/12/21: Will discontinue cardene while on HD as goal is to pull 3 liters. Will speak with [facility] and ask them to call [facility] to see if they have a time frame. Continue supportive measures. Remains on Amio Drip. 08/08/21: Continue supportive measures. Follow up any new cardiac recs. 08/07/21: Await transfer to [facility], continue supportive measures Follow up cards recs most likely needs ablation [place] Continue amio drip per cards CCt 31 minutes. Subjective Date of service: 08/19/21 Principal diagnosis: Recurrent VT Interval history: No acute events. No VT. Patient is awake and alert on Diprovan 30. BP stable. Still on steroids secondary to stridor from before. Objective Vital Signs - 12hr 08/19/21 08/19/21 08/19/21 01:00 01:30 02:01 Temperature Pulse Rate 70 70 70 Pulse Rate [ From Monitor] Respiratory 11 L 12 14 Rate Blood Pressure 133/101 124/97 165/61 O2 Sat by Pulse Oximetry O2 Sat by Pulse Oximetry [ Anterior Bilateral] O2 Sat by Pulse Oximetry [ Bases] O2 Sat by Pulse Oximetry [ Bilateral Bases ] O2 Sat by Pulse Oximetry [ Bilateral Throughout] 08/19/21 08/19/21 08/19/21 02:30 03:01 03:31 Temperature Pulse Rate 70 70 70 Pulse Rate [ From Monitor] Respiratory 14 13 Rate Blood Pressure 129/80 133/44 133/44 O2 Sat by Pulse 100 100 100 Oximetry O2 Sat by Pulse Oximetry [ Anterior Bilateral] O2 Sat by Pulse Oximetry [ Bases] O2 Sat by Pulse Oximetry [ Bilateral Bases ] O2 Sat by Pulse Oximetry [ Bilateral Throughout] 08/19/21 08/19/21 08/19/21 04:00 04:01 04:15 Temperature 99.5 F Pulse Rate 70 70 70 Pulse Rate [ 70 From Monitor] Respiratory 11 L Rate Blood Pressure 133/44 149/57 O2 Sat by Pulse 100 100 100 Oximetry O2 Sat by Pulse Oximetry [ Anterior Bilateral] O2 Sat by Pulse Oximetry [ Bases] O2 Sat by Pulse Oximetry [ Bilateral Bases ] O2 Sat by Pulse Oximetry [ Bilateral Throughout] 08/19/21 08/19/21 08/19/21 04:30 05:01 05:31 Temperature Pulse Rate 70 70 70 Pulse Rate [ From Monitor] Respiratory 14 11 L 10 L Rate Blood Pressure 154/59 154/59 O2 Sat by Pulse 100 100 100 Oximetry O2 Sat by Pulse Oximetry [ Anterior Bilateral] O2 Sat by Pulse Oximetry [ Bases] O2 Sat by Pulse Oximetry [ Bilateral Bases ] O2 Sat by Pulse Oximetry [ Bilateral Throughout] 08/19/21 08/19/21 08/19/21 06:01 06:30 07:01 Temperature Pulse Rate 70 70 70 Pulse Rate [ From Monitor] Respiratory 12 13 11 L Rate Blood Pressure 179/75 203/77 O2 Sat by Pulse 97 90 100 Oximetry O2 Sat by Pulse Oximetry [ Anterior Bilateral] O2 Sat by Pulse Oximetry [ Bases] O2 Sat by Pulse Oximetry [ Bilateral Bases ] O2 Sat by Pulse Oximetry [ Bilateral Throughout] 08/19/21 08/19/21 08/19/21 07:31 07:35 07:40 Temperature 97.9 F Pulse Rate 70 70 75 Pulse Rate [ From Monitor] Respiratory 13 12 Rate Blood Pressure 203/77 102/37 179/75 O2 Sat by Pulse 97 96 Oximetry O2 Sat by Pulse 100 Oximetry [ Anterior Bilateral] O2 Sat by Pulse 100 Oximetry [ Bases] O2 Sat by Pulse 100 Oximetry [ Bilateral Bases ] O2 Sat by Pulse 100 Oximetry [ Bilateral Throughout] 08/19/21 08/19/21 08/19/21 07:45 08:00 08:01 Temperature 97.9 F Pulse Rate 70 70 70 Pulse Rate [ 70 From Monitor] Respiratory 11 L Rate Blood Pressure 177/79 140/41 159/54 O2 Sat by Pulse 100 100 Oximetry O2 Sat by Pulse Oximetry [ Anterior Bilateral] O2 Sat by Pulse Oximetry [ Bases] O2 Sat by Pulse Oximetry [ Bilateral Bases ] O2 Sat by Pulse Oximetry [ Bilateral Throughout] 08/19/21 08/19/21 08/19/21 08:15 08:30 08:45 Temperature Pulse Rate 70 70 70 Pulse Rate [ From Monitor] Respiratory 9 L Rate Blood Pressure 140/42 133/40 120/33 O2 Sat by Pulse 100 Oximetry O2 Sat by Pulse Oximetry [ Anterior Bilateral] O2 Sat by Pulse Oximetry [ Bases] O2 Sat by Pulse Oximetry [ Bilateral Bases ] O2 Sat by Pulse Oximetry [ Bilateral Throughout] 08/19/21 08/19/21 08/19/21 09:00 09:15 09:30 Temperature Pulse Rate 70 70 70 Pulse Rate [ From Monitor] Respiratory 12 Rate Blood Pressure 118/41 117/46 110/45 O2 Sat by Pulse 100 Oximetry O2 Sat by Pulse Oximetry [ Anterior Bilateral] O2 Sat by Pulse Oximetry [ Bases] O2 Sat by Pulse Oximetry [ Bilateral Bases ] O2 Sat by Pulse Oximetry [ Bilateral Throughout] 08/19/21 08/19/21 08/19/21 09:45 10:00 10:15 Temperature Pulse Rate 70 70 70 Pulse Rate [ From Monitor] Respiratory Rate Blood Pressure 128/49 139/40 118/40 O2 Sat by Pulse Oximetry O2 Sat by Pulse Oximetry [ Anterior Bilateral] O2 Sat by Pulse Oximetry [ Bases] O2 Sat by Pulse Oximetry [ Bilateral Bases ] O2 Sat by Pulse Oximetry [ Bilateral Throughout] 08/19/21 08/19/21 08/19/21 10:30 10:45 11:00 Temperature Pulse Rate 70 70 70 Pulse Rate [ From Monitor] Respiratory Rate Blood Pressure 123/54 121/45 170/86 O2 Sat by Pulse Oximetry O2 Sat by Pulse Oximetry [ Anterior Bilateral] O2 Sat by Pulse Oximetry [ Bases] O2 Sat by Pulse Oximetry [ Bilateral Bases ] O2 Sat by Pulse Oximetry [ Bilateral Throughout] 08/19/21 11:04 Temperature Pulse Rate Pulse Rate [ From Monitor] Respiratory Rate Blood Pressure O2 Sat by Pulse Oximetry O2 Sat by Pulse 100 Oximetry [ Anterior Bilateral] O2 Sat by Pulse 100 Oximetry [ Bases] O2 Sat by Pulse 100 Oximetry [ Bilateral Bases ] O2 Sat by Pulse 100 Oximetry [ Bilateral Throughout] Constitutional: alert, other (intubated ) Eyes: non-icteric ENT: other (orally intubated, lips swollen) Neck: supple Effort: normal Ascultation: Bilateral: clear Percussion: Bilateral: not dull Cardiovascular: regular rate and rhythm (no mrg) Gastrointestinal: normoactive bowel sounds, soft, non-tender, non-distended Integumentary: normal Extremities: no cyanosis, no edema, pink and warm Neurologic: other (follows commands) Psychiatric: other (unable to assess) CBC and BMP: 08/19/21 04:00 08/19/21 04:00 ABG, PT/INR, D-dimer: ABG ABG pH 7.579 (7.320-7.450) H 08/17/21 05:09 POC ABG pCO2 27.0 mmHg (32.0-48.0) L 08/17/21 05:09 ABG pCO2 41.2 mm Hg 08/09/21 04:30 POC ABG pO2 139.0 mmHg (83-108) H 08/17/21 05:09 ABG pO2 91.5 mm Hg (80.0-90.0) H 08/09/21 04:30 POC ABG HCO3 24.7 08/17/21 05:09 ABG O2 Saturation 99.4 (0-100) 08/17/21 05:09 PT/INR, D-dimer PT 14.2 Sec. (12.2-14.9) 08/06/21 16:35 INR 0.99 (0.87-1.13) 08/06/21 16:35 Abnormal lab findings: Abnormal Labs 08/05/21 08/05/21 08/05/21 15:55 15:55 18:50 WBC 3.7 L RBC 2.98 L Hgb 7.5 L Hct 23.8 L MCH 25 L RDW 18.9 H Plt Count 134 L Lymph % (Auto) [place] % (Auto) Lymph # (Auto) Seg Neutrophils % Seg Neuts % (Manual) Lymphocytes % (Manual) Monocytes % (Manual) 18.0 H Eosinophils % (Manual) Basophils % (Manual) 2.0 H Seg Neutrophils # Seg Neutrophils # Man Lymphocytes # (Manual) 0.9 L Monocytes # (Manual) APTT ABG pH 7.523 H POC ABG pCO2 POC ABG pO2 ABG pO2 47.1 L ABG HCO3 34.6 H ABG O2 Saturation 85.4 L ABG Base Excess 10.8 H ABG Hemoglobin 7.3 L ABG Oxyhemoglobin ABG Sodium ABG Potassium ABG Chloride ABG Glucose Oxyhemoglobin 83.6 L Carboxyhemoglobin Sodium Potassium 2.7 L* Chloride 93.8 L Carbon Dioxide 33 H BUN Creatinine 2.8 H Glucose 124 H POC Glucose Calcium 8.2 L Phosphorus ALT < 5 L Troponin T 0.126 H* Total Protein Albumin 3.5 L Triglycerides 202 H HDL Cholesterol 32 L TSH Arterial Blood Glucose Crossmatch 08/05/21 08/05/21 08/06/21 18:56 Unknown 04:20 WBC RBC Hgb Hct MCH RDW Plt Count Lymph % (Auto) [place] % (Auto) Lymph # (Auto) Seg Neutrophils % Seg Neuts % (Manual) Lymphocytes % (Manual) Monocytes % (Manual) Eosinophils % (Manual) Basophils % (Manual) Seg Neutrophils # Seg Neutrophils # Man Lymphocytes # (Manual) Monocytes # (Manual) APTT ABG pH 7.575 H 7.606 H* POC ABG pCO2 POC ABG pO2 ABG pO2 142.9 H 111.2 H ABG HCO3 33.2 H 33.6 H ABG O2 Saturation ABG Base Excess 10.4 H 11.2 H ABG Hemoglobin 6.6 L 6.8 L ABG Oxyhemoglobin ABG Sodium ABG Potassium ABG Chloride ABG Glucose Oxyhemoglobin Carboxyhemoglobin Sodium Potassium Chloride Carbon Dioxide BUN Creatinine Glucose POC Glucose Calcium Phosphorus ALT Troponin T 0.183 H* D Total Protein Albumin Triglycerides HDL Cholesterol TSH Arterial Blood Glucose Crossmatch 08/06/21 08/06/21 08/06/21 04:29 04:29 04:29 WBC 2.5 L RBC 2.70 L Hgb 6.8 L Hct 21.3 L MCH 25 L RDW 18.1 H Plt Count 126 L Lymph % (Auto) 45.0 H [place] % (Auto) 13.6 H Lymph # (Auto) 1.1 L Seg Neutrophils % 37.3 L Seg Neuts % (Manual) Lymphocytes % (Manual) Monocytes % (Manual) Eosinophils % (Manual) Basophils % (Manual) Seg Neutrophils # 0.9 L Seg Neutrophils # Man Lymphocytes # (Manual) Monocytes # (Manual) APTT 38.8 H ABG pH POC ABG pCO2 POC ABG pO2 ABG pO2 ABG HCO3 ABG O2 Saturation ABG Base Excess ABG Hemoglobin ABG Oxyhemoglobin ABG Sodium ABG Potassium ABG Chloride ABG Glucose Oxyhemoglobin Carboxyhemoglobin Sodium 136 L Potassium 3.0 L Chloride 92.6 L Carbon Dioxide 32 H BUN Creatinine 3.8 H Glucose POC Glucose Calcium Phosphorus ALT Troponin T Total Protein 5.8 L Albumin 3.1 L Triglycerides HDL Cholesterol TSH Arterial Blood Glucose Crossmatch 08/06/21 08/06/21 08/06/21 05:30 07:26 07:26 WBC RBC Hgb 7.0 L Hct 22.5 L MCH RDW Plt Count 127 L Lymph % (Auto) [place] % (Auto) Lymph # (Auto) Seg Neutrophils % Seg Neuts % (Manual) Lymphocytes % (Manual) Monocytes % (Manual) Eosinophils % (Manual) Basophils % (Manual) Seg Neutrophils # Seg Neutrophils # Man Lymphocytes # (Manual) Monocytes # (Manual) APTT 37.1 H ABG pH POC ABG pCO2 POC ABG pO2 ABG pO2 ABG HCO3 ABG O2 Saturation ABG Base Excess ABG Hemoglobin ABG Oxyhemoglobin ABG Sodium ABG Potassium ABG Chloride ABG Glucose Oxyhemoglobin Carboxyhemoglobin Sodium Potassium Chloride Carbon Dioxide BUN Creatinine Glucose POC Glucose Calcium Phosphorus ALT Troponin T Total Protein Albumin Triglycerides HDL Cholesterol TSH Arterial Blood Glucose Crossmatch See Detail 08/06/21 08/06/21 08/06/21 08:06 14:50 16:03 WBC RBC Hgb Hct MCH RDW Plt Count Lymph % (Auto) [place] % (Auto) Lymph # (Auto) Seg Neutrophils % Seg Neuts % (Manual) Lymphocytes % (Manual) Monocytes % (Manual) Eosinophils % (Manual) Basophils % (Manual) Seg Neutrophils # Seg Neutrophils # Man Lymphocytes # (Manual) Monocytes # (Manual) APTT ABG pH POC ABG pCO2 POC ABG pO2 ABG pO2 ABG HCO3 ABG O2 Saturation ABG Base Excess ABG Hemoglobin ABG Oxyhemoglobin ABG Sodium ABG Potassium ABG Chloride ABG Glucose Oxyhemoglobin Carboxyhemoglobin Sodium Potassium 3.1 L Chloride 92.4 L Carbon Dioxide 33 H BUN Creatinine 3.9 H Glucose POC Glucose 59 L 121 H Calcium Phosphorus ALT Troponin T Total Protein Albumin Triglycerides HDL Cholesterol TSH Arterial Blood Glucose Crossmatch 08/06/21 08/06/21 08/06/21 16:35 16:35 17:31 WBC 4.2 L RBC 3.27 L Hgb 8.5 L Hct 26.8 L MCH 26 L RDW 18.7 H Plt Count 124 L Lymph % (Auto) [place] % (Auto) 15.5 H Lymph # (Auto) 0.8 L Seg Neutrophils % Seg Neuts % (Manual) Lymphocytes % (Manual) Monocytes % (Manual) Eosinophils % (Manual) Basophils % (Manual) Seg Neutrophils # Seg Neutrophils # Man Lymphocytes # (Manual) Monocytes # (Manual) APTT ABG pH POC ABG pCO2 POC ABG pO2 ABG pO2 ABG HCO3 ABG O2 Saturation ABG Base Excess ABG Hemoglobin ABG Oxyhemoglobin ABG Sodium ABG Potassium ABG Chloride ABG Glucose Oxyhemoglobin Carboxyhemoglobin Sodium 133 L Potassium Chloride 93.2 L Carbon Dioxide BUN 21 H Creatinine 4.6 H Glucose POC Glucose 62 L Calcium 8.3 L Phosphorus ALT Troponin T Total Protein 6.2 L Albumin 3.2 L Triglycerides HDL Cholesterol TSH Arterial Blood Glucose Crossmatch 08/06/21 08/06/21 08/07/21 18:14 18:22 04:00 WBC 1.0 L* RBC 2.67 L Hgb 7.0 L Hct 21.8 L MCH 26 L RDW 18.7 H Plt Count 82 L Lymph % (Auto) [place] % (Auto) Lymph # (Auto) Seg Neutrophils % Seg Neuts % (Manual) 16.0 L Lymphocytes % (Manual) 60.0 H Monocytes % (Manual) Eosinophils % (Manual) 11.0 H Basophils % (Manual) 4.0 H Seg Neutrophils # Seg Neutrophils # Man 0.2 L Lymphocytes # (Manual) 0.6 L Monocytes # (Manual) APTT ABG pH 7.565 H POC ABG pCO2 POC ABG pO2 ABG pO2 113.3 H ABG HCO3 29.4 H ABG O2 Saturation ABG Base Excess 6.9 H ABG Hemoglobin 8.3 L ABG Oxyhemoglobin ABG Sodium ABG Potassium ABG Chloride ABG Glucose Oxyhemoglobin Carboxyhemoglobin Sodium Potassium Chloride Carbon Dioxide BUN Creatinine Glucose POC Glucose 148 H Calcium Phosphorus ALT Troponin T Total Protein Albumin Triglycerides HDL Cholesterol TSH Arterial Blood Glucose Crossmatch 08/07/21 08/07/21 08/07/21 04:00 04:25 08:30 WBC RBC Hgb Hct MCH RDW Plt Count Lymph % (Auto) [place] % (Auto) Lymph # (Auto) Seg Neutrophils % Seg Neuts % (Manual) Lymphocytes % (Manual) Monocytes % (Manual) Eosinophils % (Manual) Basophils % (Manual) Seg Neutrophils # Seg Neutrophils # Man Lymphocytes # (Manual) Monocytes # (Manual) APTT ABG pH 7.609 H* 7.479 H POC ABG pCO2 POC ABG pO2 ABG pO2 121.4 H 130.2 H ABG HCO3 28.5 H 30.3 H ABG O2 Saturation ABG Base Excess 7.2 H 6.2 H ABG Hemoglobin 10.7 L 8.1 L ABG Oxyhemoglobin ABG Sodium ABG Potassium ABG Chloride ABG Glucose Oxyhemoglobin Carboxyhemoglobin Sodium 133 L Potassium 3.2 L D Chloride 93.9 L Carbon Dioxide BUN 23 H Creatinine 4.3 H Glucose POC Glucose Calcium 8.1 L Phosphorus ALT Troponin T Total Protein Albumin Triglycerides HDL Cholesterol TSH Arterial Blood Glucose Crossmatch 08/07/21 08/07/21 08/07/21 13:18 13:30 15:51 WBC RBC Hgb Hct MCH RDW Plt Count Lymph % (Auto) [place] % (Auto) Lymph # (Auto) Seg Neutrophils % Seg Neuts % (Manual) Lymphocytes % (Manual) Monocytes % (Manual) Eosinophils % (Manual) Basophils % (Manual) Seg Neutrophils # Seg Neutrophils # Man Lymphocytes # (Manual) Monocytes # (Manual) APTT ABG pH POC ABG pCO2 POC ABG pO2 ABG pO2 ABG HCO3 ABG O2 Saturation ABG Base Excess ABG Hemoglobin ABG Oxyhemoglobin ABG Sodium ABG Potassium ABG Chloride ABG Glucose Oxyhemoglobin Carboxyhemoglobin Sodium Potassium Chloride Carbon Dioxide BUN Creatinine Glucose POC Glucose 67 L 58 L Calcium Phosphorus ALT Troponin T Total Protein Albumin Triglycerides HDL Cholesterol TSH 7.070 H Arterial Blood Glucose Crossmatch 08/08/21 08/08/21 08/08/21 04:19 04:26 04:26 WBC RBC Hgb 6.8 L Hct 21.6 L MCH RDW Plt Count 91 L Lymph % (Auto) [place] % (Auto) Lymph # (Auto) Seg Neutrophils % Seg Neuts % (Manual) Lymphocytes % (Manual) Monocytes % (Manual) Eosinophils % (Manual) Basophils % (Manual) Seg Neutrophils # Seg Neutrophils # Man Lymphocytes # (Manual) Monocytes # (Manual) APTT ABG pH 7.545 H POC ABG pCO2 POC ABG pO2 ABG pO2 136.1 H ABG HCO3 27.3 H ABG O2 Saturation ABG Base Excess 4.5 H ABG Hemoglobin 6.9 L ABG Oxyhemoglobin ABG Sodium ABG Potassium ABG Chloride ABG Glucose Oxyhemoglobin Carboxyhemoglobin Sodium 132 L Potassium Chloride 93.5 L Carbon Dioxide BUN Creatinine 3.7 H Glucose POC Glucose Calcium Phosphorus ALT Troponin T Total Protein Albumin Triglycerides HDL Cholesterol TSH Arterial Blood Glucose Crossmatch 08/08/21 08/08/21 08/08/21 09:45 12:23 18:51 WBC RBC Hgb Hct MCH RDW Plt Count Lymph % (Auto) [place] % (Auto) Lymph # (Auto) Seg Neutrophils % Seg Neuts % (Manual) Lymphocytes % (Manual) Monocytes % (Manual) Eosinophils % (Manual) Basophils % (Manual) Seg Neutrophils # Seg Neutrophils # Man Lymphocytes # (Manual) Monocytes # (Manual) APTT ABG pH 7.471 H POC ABG pCO2 POC ABG pO2 71.1 L ABG pO2 ABG HCO3 ABG O2 Saturation ABG Base Excess ABG Hemoglobin ABG Oxyhemoglobin ABG Sodium 128.9 L ABG Potassium ABG Chloride 95.0 L ABG Glucose 64 L Oxyhemoglobin Carboxyhemoglobin Sodium Potassium Chloride Carbon Dioxide BUN Creatinine Glucose POC Glucose 58 L 68 L Calcium Phosphorus ALT Troponin T Total Protein Albumin Triglycerides HDL Cholesterol TSH Arterial Blood Glucose 64 L Crossmatch 08/09/21 08/09/2108/09/21 04:30 04:33 04:33 WBC 2.4 L RBC 3.16 L Hgb 8.3 L Hct 26.5 L MCH 26 L RDW 18.3 H Plt Count 113 L Lymph % (Auto) [place] % (Auto) Lymph # (Auto) Seg Neutrophils % Seg Neuts % (Manual) Lymphocytes % (Manual) Monocytes % (Manual) Eosinophils % (Manual) Basophils % (Manual) Seg Neutrophils # Seg Neutrophils # Man Lymphocytes # (Manual) Monocytes # (Manual) APTT ABG pH POC ABG pCO2 POC ABG pO2 ABG pO2 91.5 H ABG HCO3 26.6 H ABG O2 Saturation ABG Base Excess ABG Hemoglobin 9.0 L ABG Oxyhemoglobin ABG Sodium ABG Potassium ABG Chloride ABG Glucose Oxyhemoglobin Carboxyhemoglobin Sodium 129 L Potassium Chloride 91.9 L Carbon Dioxide BUN 22 H Creatinine 4.7 H Glucose POC Glucose Calcium Phosphorus ALT Troponin T Total Protein Albumin Triglycerides HDL Cholesterol TSH Arterial Blood Glucose Crossmatch 08/10/21 08/10/21 08/10/21 04:00 04:00 04:55 WBC 3.3 L RBC 3.32 L Hgb 8.9 L Hct 27.6 L MCH 27 L RDW 18.3 H Plt Count Lymph % (Auto) [place] % (Auto) Lymph # (Auto) Seg Neutrophils % Seg Neuts % (Manual) Lymphocytes % (Manual) Monocytes % (Manual) 9.0 H Eosinophils % (Manual) Basophils % (Manual) Seg Neutrophils # Seg Neutrophils # Man Lymphocytes # (Manual) 0.6 L Monocytes # (Manual) APTT ABG pH POC ABG pCO2 POC ABG pO2 ABG pO2 ABG HCO3 ABG O2 Saturation ABG Base Excess ABG Hemoglobin 9.6 L ABG Oxyhemoglobin ABG Sodium 120.3 L ABG Potassium 5.2 H ABG Chloride 88.0 L ABG Glucose Oxyhemoglobin Carboxyhemoglobin 0.4 L Sodium 123 L Potassium 5.5 H D Chloride 84.8 L Carbon Dioxide BUN 30 H Creatinine 5.5 H Glucose 139 H POC Glucose Calcium Phosphorus 5.90 H ALT Troponin T Total Protein Albumin Triglycerides HDL Cholesterol TSH Arterial Blood Glucose Crossmatch 08/10/21 08/11/21 08/11/21 12:17 04:00 05:53 WBC RBC 3.50 L Hgb 9.2 L Hct 29.0 L MCH 26 L RDW 18.4 H Plt Count Lymph % (Auto) [place] % (Auto) Lymph # (Auto) Seg Neutrophils % Seg Neuts % (Manual) 76.0 H Lymphocytes % (Manual) 8.0 L Monocytes % (Manual) 13.0 H Eosinophils % (Manual) Basophils % (Manual) Seg Neutrophils # Seg Neutrophils # Man Lymphocytes # (Manual) 0.6 L Monocytes # (Manual) 0.9 H APTT ABG pH POC ABG pCO2 POC ABG pO2 ABG pO2 ABG HCO3 ABG O2 Saturation ABG Base Excess ABG Hemoglobin ABG Oxyhemoglobin ABG Sodium ABG Potassium ABG Chloride ABG Glucose Oxyhemoglobin Carboxyhemoglobin Sodium 128 L Potassium Chloride 90.3 L Carbon Dioxide BUN 24 H Creatinine 4.3 H Glucose 135 H POC Glucose 142 H Calcium Phosphorus ALT Troponin T Total Protein Albumin Triglycerides HDL Cholesterol TSH Arterial Blood Glucose Crossmatch 08/11/21 08/12/21 08/12/21 16:39 05:23 05:23 WBC RBC 3.20 L Hgb 8.8 L Hct 26.7 L MCH RDW 18.6 H Plt Count Lymph % (Auto) [place] % (Auto) Lymph # (Auto) Seg Neutrophils % Seg Neuts % (Manual) Lymphocytes % (Manual) Monocytes % (Manual) Eosinophils % (Manual) Basophils % (Manual) Seg Neutrophils # Seg Neutrophils # Man Lymphocytes # (Manual) Monocytes # (Manual) APTT ABG pH POC ABG pCO2 POC ABG pO2 ABG pO2 ABG HCO3 ABG O2 Saturation ABG Base Excess ABG Hemoglobin ABG Oxyhemoglobin ABG Sodium ABG Potassium ABG Chloride ABG Glucose Oxyhemoglobin Carboxyhemoglobin Sodium 125 L Potassium Chloride 86.6 L Carbon Dioxide 21 L BUN 34 H Creatinine 5.0 H Glucose 111 H POC Glucose 112 H Calcium Phosphorus ALT Troponin T Total Protein Albumin Triglycerides HDL Cholesterol TSH Arterial Blood Glucose Crossmatch 08/12/21 08/12/21 08/13/21 12:18 17:56 06:01 WBC RBC Hgb Hct MCH RDW Plt Count Lymph % (Auto) [place] % (Auto) Lymph # (Auto) Seg Neutrophils % Seg Neuts % (Manual) Lymphocytes % (Manual) Monocytes % (Manual) Eosinophils % (Manual) Basophils % (Manual) Seg Neutrophils # Seg Neutrophils # Man Lymphocytes # (Manual) Monocytes # (Manual) APTT ABG pH POC ABG pCO2 POC ABG pO2 ABG pO2 ABG HCO3 ABG O2 Saturation ABG Base Excess ABG Hemoglobin ABG Oxyhemoglobin ABG Sodium ABG Potassium ABG Chloride ABG Glucose Oxyhemoglobin Carboxyhemoglobin Sodium Potassium Chloride Carbon Dioxide BUN Creatinine Glucose POC Glucose 140 H 119 H 110 H Calcium Phosphorus ALT Troponin T Total Protein Albumin Triglycerides HDL Cholesterol TSH Arterial Blood Glucose Crossmatch 08/13/21 08/13/21 08/14/21 Unknown Unknown 04:00 WBC RBC Hgb Hct MCH RDW Plt Count Lymph % (Auto) [place] % (Auto) Lymph # (Auto) Seg Neutrophils % Seg Neuts % (Manual) Lymphocytes % (Manual) Monocytes % (Manual) Eosinophils % (Manual) Basophils % (Manual) Seg Neutrophils # Seg Neutrophils # Man Lymphocytes # (Manual) Monocytes # (Manual) APTT ABG pH POC ABG pCO2 POC ABG pO2 ABG pO2 ABG HCO3 ABG O2 Saturation ABG Base Excess ABG Hemoglobin ABG Oxyhemoglobin ABG Sodium ABG Potassium ABG Chloride ABG Glucose Oxyhemoglobin Carboxyhemoglobin Sodium 129 L 128 L Potassium Chloride 90.1 L 89.7 L Carbon Dioxide BUN 24 H 36 H Creatinine 3.8 H 4.2 H Glucose POC Glucose Calcium Phosphorus ALT Troponin T Total Protein Albumin Triglycerides 399 H HDL Cholesterol TSH Arterial Blood Glucose Crossmatch 08/14/21 08/14/21 08/14/21 05:44 11:57 13:12 WBC RBC Hgb Hct MCH RDW Plt Count Lymph % (Auto) [place] % (Auto) Lymph # (Auto) Seg Neutrophils % Seg Neuts % (Manual) Lymphocytes % (Manual) Monocytes % (Manual) Eosinophils % (Manual) Basophils % (Manual) Seg Neutrophils # Seg Neutrophils # Man Lymphocytes # (Manual) Monocytes # (Manual) APTT ABG pH 7.498 H POC ABG pCO2 29.1 L POC ABG pO2 61.8 L ABG pO2 ABG HCO3 ABG O2 Saturation ABG Base Excess ABG Hemoglobin 8.6 L ABG Oxyhemoglobin 91.9 L ABG Sodium 126.4 L ABG Potassium ABG Chloride 92.0 L ABG Glucose 99 H Oxyhemoglobin Carboxyhemoglobin Sodium Potassium Chloride Carbon Dioxide BUN Creatinine Glucose POC Glucose 111 H 111 H Calcium Phosphorus ALT Troponin T Total Protein Albumin Triglycerides HDL Cholesterol TSH Arterial Blood Glucose 99 H Crossmatch 08/14/21 08/15/21 08/15/21 Unknown 04:34 04:34 WBC RBC 3.14 L 2.79 L Hgb 8.5 L 7.8 L Hct 25.5 L 22.8 L MCH 27 L RDW 19.1 H 18.8 H Plt Count Lymph % (Auto) [place] % (Auto) Lymph # (Auto) Seg Neutrophils % Seg Neuts % (Manual) Lymphocytes % (Manual) Monocytes % (Manual) Eosinophils % (Manual) Basophils % (Manual) Seg Neutrophils # Seg Neutrophils # Man Lymphocytes # (Manual) Monocytes # (Manual) APTT ABG pH POC ABG pCO2 POC ABG pO2 ABG pO2 ABG HCO3 ABG O2 Saturation ABG Base Excess ABG Hemoglobin ABG Oxyhemoglobin ABG Sodium ABG Potassium ABG Chloride ABG Glucose Oxyhemoglobin Carboxyhemoglobin Sodium 128 L Potassium Chloride 88.8 L Carbon Dioxide BUN 44 H Creatinine 5.1 H Glucose POC Glucose Calcium Phosphorus ALT Troponin T Total Protein Albumin Triglycerides HDL Cholesterol TSH Arterial Blood Glucose Crossmatch 08/15/21 08/15/21 08/15/21 05:22 10:56 16:52 WBC RBC Hgb Hct MCH RDW Plt Count Lymph % (Auto) [place] % (Auto) Lymph # (Auto) Seg Neutrophils % Seg Neuts % (Manual) Lymphocytes % (Manual) Monocytes % (Manual) Eosinophils % (Manual) Basophils % (Manual) Seg Neutrophils # Seg Neutrophils # Man Lymphocytes # (Manual) Monocytes # (Manual) APTT ABG pH 7.496 H POC ABG pCO2 29.8 L POC ABG pO2 ABG pO2 ABG HCO3 ABG O2 Saturation ABG Base Excess ABG Hemoglobin 7.4 L ABG Oxyhemoglobin ABG Sodium 124.3 L ABG Potassium ABG Chloride 92.0 L ABG Glucose Oxyhemoglobin Carboxyhemoglobin Sodium Potassium Chloride Carbon Dioxide BUN Creatinine Glucose POC Glucose 111 H 115 H Calcium Phosphorus ALT Troponin T Total Protein Albumin Triglycerides HDL Cholesterol TSH Arterial Blood Glucose Crossmatch 08/16/21 08/16/21 08/16/21 04:00 04:00 10:57 WBC RBC 2.96 L Hgb 8.0 L Hct 23.9 L MCH 27 L RDW 18.6 H Plt Count Lymph % (Auto) [place] % (Auto) Lymph # (Auto) Seg Neutrophils % Seg Neuts % (Manual) Lymphocytes % (Manual) Monocytes % (Manual) Eosinophils % (Manual) Basophils % (Manual) Seg Neutrophils # Seg Neutrophils # Man Lymphocytes # (Manual) Monocytes # (Manual) APTT ABG pH POC ABG pCO2 POC ABG pO2 ABG pO2 ABG HCO3 ABG O2 Saturation ABG Base Excess ABG Hemoglobin ABG Oxyhemoglobin ABG Sodium ABG Potassium ABG Chloride ABG Glucose Oxyhemoglobin Carboxyhemoglobin Sodium 132 L Potassium Chloride 93.1 L Carbon Dioxide BUN 26 H Creatinine 3.9 H Glucose 119 H POC Glucose 112 H Calcium Phosphorus ALT Troponin T Total Protein Albumin Triglycerides HDL Cholesterol TSH Arterial Blood Glucose Crossmatch 08/16/21 08/17/21 08/17/21 23:20 04:00 04:00 WBC RBC 3.07 L Hgb 8.1 L Hct 25.0 L MCH 26 L RDW 19.3 H Plt Count Lymph % (Auto) [place] % (Auto) Lymph # (Auto) Seg Neutrophils % Seg Neuts % (Manual) Lymphocytes % (Manual) Monocytes % (Manual) Eosinophils % (Manual) Basophils % (Manual) Seg Neutrophils # Seg Neutrophils # Man Lymphocytes # (Manual) Monocytes # (Manual) APTT ABG pH POC ABG pCO2 POC ABG pO2 ABG pO2 ABG HCO3 ABG O2 Saturation ABG Base Excess ABG Hemoglobin ABG Oxyhemoglobin ABG Sodium ABG Potassium ABG Chloride ABG Glucose Oxyhemoglobin Carboxyhemoglobin Sodium 135 L Potassium Chloride 97.4 L Carbon Dioxide BUN 20 H Creatinine 3.0 H Glucose 171 H POC Glucose 125 H Calcium Phosphorus ALT Troponin T Total Protein Albumin Triglycerides HDL Cholesterol TSH Arterial Blood Glucose Crossmatch 08/17/21 08/17/21 08/17/21 05:09 05:12 11:46 WBC RBC Hgb Hct MCH RDW Plt Count Lymph % (Auto) [place] % (Auto) Lymph # (Auto) Seg Neutrophils % Seg Neuts % (Manual) Lymphocytes % (Manual) Monocytes % (Manual) Eosinophils % (Manual) Basophils % (Manual) Seg Neutrophils # Seg Neutrophils # Man Lymphocytes # (Manual) Monocytes # (Manual) APTT ABG pH 7.579 H POC ABG pCO2 27.0 L POC ABG pO2 139.0 H ABG pO2 ABG HCO3 ABG O2 Saturation ABG Base Excess ABG Hemoglobin 8.1 L ABG Oxyhemoglobin 98.3 H ABG Sodium 132.1 L ABG Potassium ABG Chloride ABG Glucose 160 H Oxyhemoglobin Carboxyhemoglobin Sodium Potassium Chloride Carbon Dioxide BUN Creatinine Glucose POC Glucose 155 H 170 H Calcium Phosphorus ALT Troponin T Total Protein Albumin Triglycerides HDL Cholesterol TSH Arterial Blood Glucose 160 H Crossmatch 08/17/21 08/18/21 08/18/21 17:41 00:21 04:00 WBC RBC 2.82 L Hgb 7.5 L Hct 22.7 L MCH 27 L RDW 18.9 H Plt Count Lymph % (Auto) [place] % (Auto) Lymph # (Auto) Seg Neutrophils % Seg Neuts % (Manual) Lymphocytes % (Manual) Monocytes % (Manual) Eosinophils % (Manual) Basophils % (Manual) Seg Neutrophils # Seg Neutrophils # Man Lymphocytes # (Manual) Monocytes # (Manual) APTT ABG pH POC ABG pCO2 POC ABG pO2 ABG pO2 ABG HCO3 ABG O2 Saturation ABG Base Excess ABG Hemoglobin ABG Oxyhemoglobin ABG Sodium ABG Potassium ABG Chloride ABG Glucose Oxyhemoglobin Carboxyhemoglobin Sodium Potassium Chloride Carbon Dioxide BUN Creatinine Glucose POC Glucose 150 H 152 H Calcium Phosphorus ALT Troponin T Total Protein Albumin Triglycerides HDL Cholesterol TSH Arterial Blood Glucose Crossmatch 08/18/21 08/18/21 08/18/21 04:00 05:38 11:58 WBC RBC Hgb Hct MCH RDW Plt Count Lymph % (Auto) [place] % (Auto) Lymph # (Auto) Seg Neutrophils % Seg Neuts % (Manual) Lymphocytes % (Manual) Monocytes % (Manual) Eosinophils % (Manual) Basophils % (Manual) Seg Neutrophils # Seg Neutrophils # Man Lymphocytes # (Manual) Monocytes # (Manual) APTT ABG pH POC ABG pCO2 POC ABG pO2 ABG pO2 ABG HCO3 ABG O2 Saturation ABG Base Excess ABG Hemoglobin ABG Oxyhemoglobin ABG Sodium ABG Potassium ABG Chloride ABG Glucose Oxyhemoglobin Carboxyhemoglobin Sodium 132 L Potassium Chloride 94.8 L Carbon Dioxide BUN 36 H Creatinine 4.0 H Glucose 168 H POC Glucose 158 H 139 H Calcium Phosphorus ALT Troponin T Total Protein Albumin Triglycerides HDL Cholesterol TSH Arterial Blood Glucose Crossmatch 08/18/21 08/18/21 08/19/21 16:17 23:11 04:00 WBC RBC 3.09 L Hgb 8.2 L Hct 25.0 L MCH 27 L RDW 19.0 H Plt Count 506 H Lymph % (Auto) [place] % (Auto) Lymph # (Auto) Seg Neutrophils % Seg Neuts % (Manual) Lymphocytes % (Manual) Monocytes % (Manual) Eosinophils % (Manual) Basophils % (Manual) Seg Neutrophils # Seg Neutrophils # Man Lymphocytes # (Manual) Monocytes # (Manual) APTT ABG pH POC ABG pCO2 POC ABG pO2 ABG pO2 ABG HCO3 ABG O2 Saturation ABG Base Excess ABG Hemoglobin ABG Oxyhemoglobin ABG Sodium ABG Potassium ABG Chloride ABG Glucose Oxyhemoglobin Carboxyhemoglobin Sodium Potassium Chloride Carbon Dioxide BUN Creatinine Glucose POC Glucose 126 H 170 H Calcium Phosphorus ALT Troponin T Total Protein Albumin Triglycerides HDL Cholesterol TSH Arterial Blood Glucose Crossmatch 08/19/21 08/19/21 08/19/21 04:00 05:17 12:34 WBC RBC Hgb Hct MCH RDW Plt Count Lymph % (Auto) [place] % (Auto) Lymph # (Auto) Seg Neutrophils % Seg Neuts % (Manual) Lymphocytes % (Manual) Monocytes % (Manual) Eosinophils % (Manual) Basophils % (Manual) Seg Neutrophils # Seg Neutrophils # Man Lymphocytes # (Manual) Monocytes # (Manual) APTT ABG pH POC ABG pCO2 POC ABG pO2 ABG pO2 ABG HCO3 ABG O2 Saturation ABG Base Excess ABG Hemoglobin ABG Oxyhemoglobin ABG Sodium ABG Potassium ABG Chloride ABG Glucose Oxyhemoglobin Carboxyhemoglobin Sodium 135 L Potassium Chloride 94.4 L Carbon Dioxide BUN 53 H Creatinine 4.5 H Glucose 125 H POC Glucose 113 H 130 H Calcium Phosphorus ALT Troponin T Total Protein Albumin Triglycerides HDL Cholesterol TSH Arterial Blood Glucose Crossmatch Allied health notes reviewed: nursing
--- NOTE | 2021-08-19 13:16 | Progress Note ---
Assessment and Plan Patient is a 60-year-old female with recurrent V. tach, end-stage renal disease, s/p ICD, and recurrent severe hypokalemia VT Storm Recurrent AICD Discharges CAD s/p PCI (07/17/2021) Accelerated HTN ESRD on HD Hyponatremia Severe Hypokalemia (POA, resolved) Anemia Thrombocytopenia Type 2 RI HTN H/o CVA Plan: Currently waiting bed availability at [facility] for transfer for VT ablation Continue aspirin, Plavix, Lipitor Continue losartan 100 mg p.o. daily and metoprolol 100 mg p.o. twice daily,hydralazine 100 mg p.o.Q8hrs,amio 400 mg p.o. twice daily,minoxidil 5 mg p.o. twice daily Nicardipine has been stopped Continue clonidine 0.3 mg p.o. every 8 hours pt awake on profolol and awaiting extubation if possible Patient seen in conjunction with Dr. Gill who agrees with this plan of care - Patient Problems (1) AICD discharge Current Visit: Yes Status: Acute (2) Anemia in end-stage renal disease Current Visit: Yes Status: Acute (3) Elevated troponin Current Visit: Yes Status: Acute (4) Hypokalemia Current Visit: Yes Status: Acute (5) Sustained ventricular tachycardia Current Visit: Yes Status: Acute (6) Diabetes Current Visit: No Status: Acute (7) Respiratory failure Current Visit: No Status: Acute Qualifiers: Chronicity: acute Respiratory failure complication: hypoxia Qualified Code(s): J96.01 - Acute respiratory failure with hypoxia (8) Hypertension Current Visit: No Status: Chronic Qualifiers: Hypertension type: primary hypertension Qualified Code(s): I10 - Essential (primary) hypertension Subjective Date of service: 08/19/21 Principal diagnosis: Recurrent VT Interval history: Patient remains intubated Patient A paced 70 no events on monitor Objective Vital Signs Temp Pulse Pulse Resp BP Pulse Ox Pulse Ox 08/19/21 12:50 70 170/86 100 08/19/21 11:04 100 08/19/21 11:00 70 170/86 08/19/21 10:45 70 121/45 08/19/21 10:30 70 123/54 08/19/21 10:15 70 118/40 08/19/21 10:00 70 139/40 08/19/21 09:45 70 128/49 08/19/21 09:30 70 110/45 08/19/21 09:15 70 117/46 08/19/21 09:00 70 12 118/41 100 08/19/21 08:45 70 120/33 08/19/21 08:30 70 9 L 133/40 100 08/19/21 08:15 70 140/42 08/19/21 08:01 70 11 L 159/54 100 08/19/21 08:00 97.9 F 70 70 140/41 100 08/19/21 07:45 70 177/79 08/19/21 07:40 97.9 F 75 12 179/75 100 08/19/21 07:35 70 102/37 96 08/19/21 07:31 70 13 203/77 97 08/19/21 07:01 70 11 L 203/77 100 08/19/21 06:30 70 13 179/75 90 08/19/21 06:01 70 12 97 08/19/21 05:31 70 10 L 100 08/19/21 05:01 70 11 L 154/59 100 08/19/21 04:30 70 14 154/59 100 08/19/21 04:15 70 149/57 100 08/19/21 04:01 70 11 L 133/44 100 08/19/21 04:00 99.5 F 70 70 100 08/19/21 03:31 70 13 133/44 100 08/19/21 03:01 70 133/44 100 08/19/21 02:30 70 14 129/80 100 08/19/21 02:01 70 14 165/61 08/19/21 01:30 70 12 124/97 08/19/21 01:00 70 11 L 133/101 08/19/21 00:31 70 10 L 121/50 08/19/21 00:20 70 120/42 100 08/19/21 00:00 70 70 11 L 151/127 100 08/18/21 23:51 97.8 F 08/18/21 23:31 70 11 L 141/120 08/18/21 23:01 70 14 133/68 08/18/21 22:31 70 9 L 123/51 100 08/18/21 22:01 70 12 104/43 100 08/18/21 21:30 70 12 104/43 99 08/18/21 21:23 70 12 116/42 99 08/18/21 21:00 70 12 116/42 99 08/18/21 20:36 70 151/58 100 08/18/21 20:30 70 11 L 151/58 100 08/18/21 20:01 70 13 129/44 08/18/21 20:00 81 70 100 08/18/21 19:56 97.6 F 08/18/21 19:31 70 12 136/40 08/18/21 19:00 70 11 L 169/145 100 08/18/21 18:30 70 12 175/98 100 08/18/21 18:00 70 12 155/63 100 08/18/21 17:31 70 10 L 155/68 100 08/18/21 17:24 98.6 F 08/18/21 17:01 70 10 L 151/55 100 08/18/21 16:31 70 11 L 148/55 100 08/18/21 16:01 70 9 L 148/55 100 08/18/21 16:00 70 70 100 08/18/21 15:54 70 164/57 100 08/18/21 15:31 70 15 173/63 100 08/18/21 15:01 70 11 L 173/63 100 08/18/21 14:31 70 10 L 87/51 100 08/18/21 14:01 70 15 140/48 100 08/18/21 14:00 87/51 08/18/21 13:30 70 11 L 133/78 100 Pulse Ox Pulse Ox Pulse Ox 08/19/21 12:50 08/19/21 11:04 100 100 100 08/19/21 11:00 08/19/21 10:45 08/19/21 10:30 08/19/21 10:15 08/19/21 10:00 08/19/21 09:45 08/19/21 09:30 08/19/21 09:15 08/19/21 09:00 08/19/21 08:45 08/19/21 08:30 08/19/21 08:15 08/19/21 08:01 08/19/21 08:00 08/19/21 07:45 08/19/21 07:40 100 100 100 08/19/21 07:35 08/19/21 07:31 08/19/21 07:01 08/19/21 06:30 08/19/21 06:01 08/19/21 05:31 08/19/21 05:01 08/19/21 04:30 08/19/21 04:15 08/19/21 04:01 08/19/21 04:00 08/19/21 03:31 08/19/21 03:01 08/19/21 02:30 08/19/21 02:01 08/19/21 01:30 08/19/21 01:00 08/19/21 00:31 08/19/21 00:20 08/19/21 00:00 08/18/21 23:51 08/18/21 23:31 08/18/21 23:01 08/18/21 22:31 08/18/21 22:01 08/18/21 21:30 08/18/21 21:23 08/18/21 21:00 08/18/21 20:36 08/18/21 20:30 08/18/21 20:01 08/18/21 20:00 08/18/21 19:56 08/18/21 19:31 08/18/21 19:00 08/18/21 18:30 08/18/21 18:00 08/18/21 17:31 08/18/21 17:24 08/18/21 17:01 08/18/21 16:31 08/18/21 16:01 08/18/21 16:00 08/18/21 15:54 08/18/21 15:31 08/18/21 15:01 08/18/21 14:31 08/18/21 14:01 08/18/21 14:00 08/18/21 13:30 - Physical Examination General: Other (intubated) HEENT: Positive: Normocephaly, Mucus Membranes Dry Neck: Positive: neck supple, trachea midline. Negative: JVD/HJR Lungs: Positive: Ventilated Respirations Neuro: Positive: Other (intubated) Abdomen: Positive: Soft Skin: Negative: Rash Musculoskeletal: No Fluid Collection Extremities: Present: lower extr. pulses. Absent: edema - Labs and Meds CBC 08/19/21 Range/Units 04:00 WBC 10.7 (4.5-11.0) K/mm3 RBC 3.09 L (3.65-5.03) M/mm3 Hgb 8.2 L (10.1-14.3) gm/dl Hct 25.0 L (30.3-42.9) % Plt Count 506 H (140-440) K/mm3 Comprehensive Metabolic Panel 08/19/21 Range/Units 04:00 Sodium 135 L (137-145) mmol/L Potassium 4.1 (3.6-5.0) mmol/L Chloride 94.4 L (98-107) mmol/L Carbon Dioxide 23 (22-30) mmol/L BUN 53 H (7-17) mg/dL Creatinine 4.5 H (0.6-1.2) mg/dL Glucose 125 H (65-100) mg/dL Calcium 9.3 (8.4-10.2) mg/dL - Imaging and Cardiology EKG: report reviewed, image reviewed Echo: report reviewed Cardiac cath: report reviewed - Telemetry EKG Rhythm: Paced - EKG Sinus rhythms and dysrhythmias: sinus rhythm Repolarization changes or abnormalities: Q-T interval prolongation Myocardial infarction: anterior RI (old age or i Pacemaker: atrial pacing w/capture - Allied health notes Allied health notes reviewed: nursing
--- NOTE | 2021-08-19 14:16 | Progress Note ---
Assessment and Plan Assessment and plan: This is 60-year-old female with ESRD on HD, recurrent AICD discharges, V. tach, cardiac arrest, anemia of chronic disease, CAD, systolic HF and HTN admitted for V. tach and severe hypokalemia Neuro: Sedated -Sedated with fentanyl and propofol -RASS goal -1 to -2 -Avoid delirium -Reorientation as needed -SAT/SBT when appropriate -CT head x2 with no acute findings CV: Recurrent V. tach storm, NSTEMI, h/o s/p AICD implantation, systolic heart failure, V. tach, HTN -Cardiology consulted, appreciate recommendations -S/p lidocaine and Cardene drip -Antihypertensive regimen: hydralazine, isosorbide, cozaar, metoprolol, minoxidil, clonidine -s/p Amiodarone drip-> Amio PO -Awaiting transfer to [facility] -Continue Lipitor, Plavix, ASA Respiratory: Acute Hypoxemic Respiratory Failure -CCM consulted, appreciate recommendations -Intubated in the ED on 08/05 with a 6.50 ETT at 21 at the lips, extubated 08/14 with reintubation, self extubation 08/16 with reintubation 7.5 oett @ 24 lips -A.m. vent settings assist-control rate 12, tidal volume 375, PEEP 6, FiO2 30% -See RT notes for titration -no cuff leak noted today - will likely need neck imaging later this week if no improvement from steroids -A.m. ABG and CXR noted -VAP bundle -SPO2 monitoring GI: NAD -Nutrition consult for tube feeding -24 hours +1168 mL -HD removal of 2.5 mL 08/09 -PPI -BR: Senokot : ESRD on HD, hyponatremia, hypochloremia -Nephrology consulted, appreciate recommendations -HD per nephrology -Avoid nephrotoxic medications -Renally dose medications -Strict intake and output ID: [id number] -Monitor WBC and fever curve -Follow-up blood culture x2 and sputum culture -NGTD Heme: Thrombocytosis, Acute on chronic anemia of chronic disease, leukopenia (improving) -S/p 2 unit PRBC -Trend CBC -Transfuse for hemoglobin less than 7 -Epogen per nephrology -Resume DAPT per cards in setting of recent stent -Heparin subq -SCDs to bilateral LE while in bed Endo: Hypoglycemia (resolved) -S/p D10 for hypoglycemia -Avoid hypoglycemia -Accu-Cheks every 4 Dispo: AWAITING TRANSFER TO [facility] since 08/06/2021 Critical care statement The high probability of a clinically significant sudden or life-threatening deterioration of the [cardio-respiratory system] and endocrine system required my full and direct attention, intervention and postoperative management. The aggregate critical care time was [60] minutes. The time is in addition to time spent performing reported procedures but includes the following: [x] 1: Data review and interpretation [x] 2: Patient assessment and monitoring of vital signs [x] 3: Documentation [x] 4: Medication orders and management Disposition Plan: icu Total Time Spent with Patient (Minutes): 60 History Interval history: This is 60-year-old female with ESRD on HD, recurrent AICD discharges, systolic heart failure, V. tach, cardiac arrest, anemia, CAD and HTN who presents to the emergency department from her dialysis center on 08/05 for severe muscle spasms secondary to AICD discharges per patient. She also had questionable seizures in the dialysis center. Patient was started on amiodarone and lidocaine. Patient was intubated for airway protection in the emergency department and work-up also revealed severe hypokalemia. Patient was admitted to the hospital service with consult cardiology, nephrology and CCM. 08/06/2021: Patient is sedated, Transfer to [facility] arranged 08/07: COVID-19 PCR negative. Patient received hemodialysis today. Off Cardene drip. Patient has been OG tube for p.o. BP medications. Thrombocytopenia persists therefore anticoagulation is held. Patient is leukopenia also. We will continue to trend CBC. Persistent hypoglycemia and D10 drip increased to 30 ml/hr. negative Covid test relayed to [facility]. 08/08: 1 unit prbc today, will start TF today. Still awaiting [facility] bed. 08/09: awaiting transfer to [facility]. TF nearly at goal so anticipate stopping dextrose IVF soon. Midline to be placed 08/10/2021: Received HD today. BP remains elevated therefore started on cardene gtt. Cardiology aware. No beds available yet. 08/11/2021: Cardene gtt infusing, CT head ordered as per nurse patient is not really responding (withdraw/ grimace to pain when off sedation/PERRL/intact cough/gag on PE). 1/3: ANGELINE overnight. Remains on the vent and sedated. On Amio gtt, A-pacing on the monitor, still hypertensive on cardene gtt, home antihypertensive was restarted. Plan for HD this am, hypernatremia too be corrected per Nephro. 08/13: Plan for SAT and SBT this am for possible extubation. Patient remains hypertensive on cardene gtt, clonidine added. 08/14: Patient s/p reintubation by anesthesia. Awake and alert following commands, not on any sedation. Remains hypertensive on amio and cardene gtt. D/w cardio plan to switch to PO Amio and to adjust antihypertensive therapy, hopefully can wean off cardene gtt. Plan to possible transfer patient to [facility] as a way of getting patient into the [facility] system for the needed ablation. Case management to arrange 08/15: ANGELINE overnight. Patient remains stable on the vent. Still with uncontrolled hypertension despite meds increased yesterday. Patient remains on cardene gt. Cardio added minoxidil, plan is still to wean off cardene gtt. Plan for HD today 08/16: Self-extubated and was reintubated overnight due to stridor. Now on low dose sedation, following commands. D/w CCM plan to do a cuff leak today and possible start patinet on IV steroids. Since this is X2 failed extubation patient might need to be Trached. Per Case management patient was denied for [facility], no HD beds available. Patient remains on [facility] transfer list for possible inpatient transfer. 08/17: On the vent and om propofol gtt, RASS 0. Hypotensive overnight, will defer to Cardio for possible BP meds adjustment. Pending transfer to [facility]. 08/18: ANGELINE overnight. While awake on propofol gtt, following commands. Tolerated PST yesterday [id number]. Daily PST as tolerated. Pending transfer to [facility] 08/19: no cuff leak noted, may need neck imaging later this week. HD today with removal of 2.5 L. Midline ordered. Madelaine [place] Hospitalist Physical - Constitutional Vitals: Temp Pulse Resp BP Pulse Ox 97.9 F 70 26 H 192/83 100 08/19/21 08:00 08/19/21 14:04 08/19/21 14:04 08/19/21 14:04 08/19/21 14:04 General appearance: Present: no acute distress, other (Intubated and on se dation, RASS 0 ) - EENT Eyes: Present: PERRL, EOM intact ENT: hearing intact, clear oral mucosa, dentition normal - Neck Neck: Present: normal ROM - Respiratory Respiratory effort: normal Respiratory: bilateral: rhonchi - Cardiovascular Rhythm: regular Heart Sounds: Present: S1 & S2. Absent: systolic murmur, diastolic murmur - Extremities Extremities: no ischemia, pulses intact, pulses symmetrical, normal temperature, normal color Extremity abnormal: edema Peripheral Pulses: within normal limits - Abdominal General gastrointestinal: soft, non-tender, non-distended, normal bowel sounds - Integumentary Integumentary: Present: warm, dry - Psychiatric Psychiatric: cooperative, other - Neurologic Neurologic: no focal deficits, other (withdraws to pain to BLE/LE, sedated on propofol) - Allied Health Allied health notes reviewed: nursing, RT, social work HEART Score - HEART Score Age: 45-65 Risk factors: > 3 risk factors or hx of atherosclerotic disease Troponin: Troponin T 0.183 ng/mL (0.00-0.029) H* D 08/05/21 18:56 Troponin: 1-3x normal limit - Critical Actions Critical Actions: 4-6 pts:12-16.6% risk of adverse cardiac event. Should be admitted Results - Labs CBC & Chem 7: 08/19/21 04:00 08/19/21 04:00 Labs: Laboratory Last Values WBC 10.7 K/mm3 (4.5-11.0) 08/19/21 04:00 RBC 3.09 M/mm3 (3.65-5.03) L 08/19/21 04:00 Hgb 8.2 gm/dl (10.1-14.3) L 08/19/21 04:00 Hct 25.0 % (30.3-42.9) L 08/19/21 04:00 MCV 81 fl (79-97) 08/19/21 04:00 MCH 27 pg (28-32) L 08/19/21 04:00 MCHC 33 % (30-34) 08/19/21 04:00 RDW 19.0 % (13.2-15.2) H 08/19/21 04:00 Plt Count 506 K/mm3 (140-440) H 08/19/21 04:00 Lymph % (Auto) Chiropractic Physician 12/29/21 04:00 [place] % (Auto) Chiropractic Physician 08/11/21 04:00 Eos % (Auto) 2.2 % (0.0-4.3) 08/06/21 16:35 Baso % (Auto) Chiropractic Physician 08/07/21 04:00 Lymph # (Auto) 0.8 K/mm3 (1.2-5.4) L 08/06/21 16:35 [place] # (Auto) 0.7 K/mm3 (0.0-0.8) 08/06/21 16:35 Eos # (Auto) 0.1 K/mm3 (0.0-0.4) 08/06/21 16:35 Baso # (Auto) 0.1 K/mm3 (0.0-0.1) 08/06/21 16:35 Add Manual Diff Complete 08/11/21 04:00 Total Counted 100 08/11/21 04:00 Seg Neutrophils % Chiropractic Physician 08/07/21 04:00 Seg Neuts % (Manual) 76.0 % (40.0-70.0) H 08/11/21 04:00 Band Neutrophils % 2.0 % 08/11/21 04:00 Lymphocytes % (Manual) 8.0 % (13.4-35.0) L 08/11/21 04:00 Reactive Lymphs % (Man) 5.0 % 08/07/21 04:00 Monocytes % (Manual) 13.0 % (0.0-7.3) H 08/11/21 04:00 Eosinophils % (Manual) 1.0 % (0.0-4.3) 08/10/21 04:00 Basophils % (Manual) 4.0 % (0.0-1.8) H 08/07/21 04:00 Metamyelocytes % 1.0 % 08/11/21 04:00 Nucleated RBC % Not Reportable 08/11/21 04:00 Seg Neutrophils # 2.6 K/mm3 (1.8-7.7) 08/06/21 16:35 Seg Neutrophils # Man 5.2 K/mm3 (1.8-7.7) 08/11/21 04:00 Band Neutrophils # 0.1 K/mm3 08/11/21 04:00 Lymphocytes # (Manual) 0.6 K/mm3 (1.2-5.4) L 08/11/21 04:00 Abs React Lymphs (Man) 0.0 K/mm3 08/11/21 04:00 Monocytes # (Manual) 0.9 K/mm3 (0.0-0.8) H 08/11/21 04:00 Eosinophils # (Manual) 0.0 K/mm3 (0.0-0.4) 08/11/21 04:00 Basophils # (Manual) 0.0 K/mm3 (0.0-0.1) 08/11/21 04:00 Metamyelocytes # 0.1 K/mm3 08/11/21 04:00 Myelocytes # 0.0 K/mm3 08/11/21 04:00 Promyelocytes # 0.0 K/mm3 08/11/21 04:00 Blast Cells # 0.0 K/mm3 08/11/21 04:00 WBC Morphology Not Reportable 08/11/21 04:00 WBC Morphology TNR 08/11/21 04:00 Hypersegmented Neuts Not Reportable 08/11/21 04:00 Hyposegmented Neuts Not Reportable 08/11/21 04:00 Hypogranular Neuts Not Reportable 08/11/21 04:00 Smudge Cells Not Reportable 08/11/21 04:00 Toxic Granulation Not Reportable 08/11/21 04:00 Toxic Vacuolation Not Reportable 08/11/21 04:00 Dohle Bodies Not Reportable 08/11/21 04:00 Pelger-Huet Anomaly Not Reportable 08/11/21 04:00 Claudio Rods Not Reportable 08/11/21 04:00 Platelet Estimate Consistent w auto 08/11/21 04:00 Clumped Platelets Not Reportable 08/11/21 04:00 Plt Clumps, EDTA Not Reportable 08/11/21 04:00 Large Platelets Not Reportable 08/11/21 04:00 Giant Platelets Not Reportable 08/11/21 04:00 Platelet Satelliting Not Reportable 08/11/21 04:00 Plt Morphology Comment Not Reportable 08/11/21 04:00 RBC Morphology Not Reportable 08/11/21 04:00 Dimorphic RBCs Not Reportable 08/11/21 04:00 Polychromasia Not Reportable 08/11/21 04:00 Hypochromasia Few 08/11/21 04:00 Poikilocytosis Not Reportable 08/11/21 04:00 Anisocytosis Not Reportable 08/11/21 04:00 Microcytosis Not Reportable 08/11/21 04:00 Macrocytosis Not Reportable 08/11/21 04:00 Spherocytes Not Reportable 08/11/21 04:00 Pappenheimer Bodies Not Reportable 08/11/21 04:00 Sickle Cells Not Reportable 08/11/21 04:00 Target Cells Few 08/11/21 04:00 Tear Drop Cells Not Reportable 08/11/21 04:00 Ovalocytes Not Reportable 08/11/21 04:00 Helmet Cells Not Reportable 08/11/21 04:00 [place] Bodies Not Reportable 08/11/21 04:00 [employer] Rings Not Reportable 08/11/21 04:00 [place] Cells Not Reportable 08/11/21 04:00 Bite Cells Not Reportable 08/11/21 04:00 Crenated Cell Not Reportable 08/11/21 04:00 Elliptocytes Not Reportable 08/11/21 04:00 Acanthocytes (Spur) Not Reportable 08/11/21 04:00 Rouleaux Not Reportable 08/11/21 04:00 Hemoglobin C Crystals Not Reportable 08/11/21 04:00 Schistocytes Not Reportable 08/11/21 04:00 Malaria parasites Not Reportable 08/11/21 04:00 Aleks Bodies Not Reportable 08/11/21 04:00 Hem Pathologist Commnt No 08/11/21 04:00 PT 14.2 Sec. (12.2-14.9) 08/06/21 16:35 INR 0.99 (0.87-1.13) 08/06/21 16:35 APTT 37.1 Sec. (24.2-36.6) H 08/06/21 07:26 ABG pH 7.579 (7.320-7.450) H 08/17/21 05:09 POC ABG pCO2 27.0 mmHg (32.0-48.0) L 08/17/21 05:09 ABG pCO2 41.2 mm Hg 08/09/21 04:30 POC ABG pO2 139.0 mmHg (83-108) H 08/17/21 05:09 ABG pO2 91.5 mm Hg (80.0-90.0) H 08/09/21 04:30 POC ABG HCO3 24.7 08/17/21 05:09 ABG HCO3 26.6 mmol/L (20.0-26.0) H 08/09/21 04:30 ABG O2 Saturation 99.4 (0-100) 08/17/21 05:09 ABG O2 Content 12.3 (0.0-44) 08/09/21 04:30 POC ABG Base Excess 3.0 08/17/21 05:09 ABG Base Excess 2.0 mmol/L (-2.0-3.0) 08/09/21 04:30 ABG Hemoglobin 8.1 (12.0-17.5) L 08/17/21 05:09 ABG Oxyhemoglobin 98.3 (94-98) H 08/17/21 05:09 ABG Carboxyhemoglobin 1.4 % (0.0-5.0) 08/09/21 04:30 ABG Methemoglobin 0.3 (0.0-1.5) 08/17/21 05:09 ABG Sodium 132.1 mmol/L (136.0-145.0) L 08/17/21 05:09 ABG Potassium 3.5 mmol/L (3.40-4.50) 08/17/21 05:09 ABG Chloride 99.0 mmol/L (98-107) 08/17/21 05:09 ABG Glucose 160 mg/dL (65-95) H 08/17/21 05:09 Oxyhemoglobin 95.4 % (95.0-99.0) 08/09/21 04:30 Carboxyhemoglobin 0.8 (0.5-1.5) 08/17/21 05:09 FiO2 25 % 08/09/21 04:30 FiO2 % 30.0 08/17/21 05:09 Sodium 135 mmol/L (137-145) L 08/19/21 04:00 Potassium 4.1 mmol/L (3.6-5.0) 08/19/21 04:00 Chloride 94.4 mmol/L (98-107) L 08/19/21 04:00 Carbon Dioxide 23 mmol/L (22-30) 08/19/21 04:00 Anion Gap 22 mmol/L 08/19/21 04:00 BUN 53 mg/dL (7-17) H 08/19/21 04:00 Creatinine 4.5 mg/dL (0.6-1.2) H 08/19/21 04:00 Estimated GFR 12 ml/min 08/19/21 04:00 BUN/Creatinine Ratio 12 % 08/19/21 04:00 Glucose 125 mg/dL (65-100) H 08/19/21 04:00 POC Glucose 130 mg/dL (70-105) H 08/19/21 12:34 Calcium 9.3 mg/dL (8.4-10.2) 08/19/21 04:00 Phosphorus 3.70 mg/dL (2.5-4.5) 08/18/21 04:00 Magnesium 2.10 mg/dL (1.7-2.3) 08/18/21 04:00 Total Bilirubin 0.70 mg/dL (0.1-1.2) 08/06/21 16:35 AST 18 units/L (5-40) 08/06/21 16:35 ALT 7 units/L (7-56) 08/06/21 16:35 Alkaline Phosphatase 102 units/L (35-129) 08/06/21 16:35 Troponin T 0.183 ng/mL (0.00-0.029) H* D 08/05/21 18:56 Total Protein 6.2 g/dL (6.3-8.2) L 08/06/21 16:35 Albumin 3.2 g/dL (3.9-5) L 08/06/21 16:35 Albumin/Globulin Ratio 1.1 % 08/06/21 16:35 Triglycerides 399 mg/dL (2-149) H 08/13/21 Unknown Cholesterol 170 mg/dL (50-199) 08/05/21 15:55 LDL Cholesterol Direct 106 mg/dL (50-130) 08/05/21 15:55 HDL Cholesterol 32 mg/dL (40-59) L 08/05/21 15:55 Cholesterol/HDL Ratio 5.31 % 08/05/21 15:55 TSH 7.070 mlU/mL (0.270-4.200) H 08/07/21 13:30 Arterial Blood Glucose 160 mg/dL (65-95) H 08/17/21 05:09 Arterial Blood Ionized Calcium 4.8 mg/dL (4.6-5.3) 08/15/21 05:22 Coronavirus (PCR) Negative (Negative) 08/07/21 Unknown Hepatitis A IgM Ab Non-reactive (NonReactive) 08/08/21 04:26 Hep Bs Antigen Nonreactive (Negative) 08/08/21 04:26 Hep B Core IgM Ab Non-reactive (NonReactive) 08/08/21 04:26 Hepatitis C Antibody Non-reactive (NonReactive) 08/08/21 04:26 Blood Type O POSITIVE 08/06/21 05:30 Antibody Screen Negative 08/06/21 05:30 Crossmatch See Detail 08/06/21 05:30 Active Medications - Current Medications Current Medications: Generic Name Dose Route Start Last Admin Trade Name Freq PRN Reason Stop Dose Admin Acetaminophen 650 mg 08/06/21 16:30 08/06/21 16:30 Acetaminophen 650 Mg Rect Supp MD 650 mg Q6H PRN Administration Pain, Mild (1-3) Albuterol 2.5 mg 08/05/21 20:59 Albuterol 2.5 Mg/3 Ml Nebu IH Q4HRT PRN Shortness Of Breath Amiodarone HCl 400 mg 08/14/21 11:00 08/19/21 11:26 Amiodarone 200 Mg Tab PO 400 mg BID JODI Administration Lipase/Protease/Amylase 1 each 08/07/21 09:47 Lipase 10,500/Protease 25,000/Amylase 43,750 (Units) Dr Thomas FEEDTUBE PRN PRN For Clogged Feeding Tube Aspirin 81 mg 08/07/21 10:00 08/19/21 11:26 Aspirin 81 Mg Tab Chew PO 81 mg QDAY JODI Administration Atorvastatin Calcium 80 mg 08/05/21 22:00 08/18/21 22:02 Atorvastatin 40 Mg Tab PO 80 mg QHS JODI Administration Clonidine HCl 0.3 mg 08/15/21 14:00 08/19/21 06:20 Clonidine 0.1 Mg Tab PO Not Given Q8HR JODI Clopidogrel Bisulfate 75 mg 08/10/21 10:00 08/19/21 11:27 Clopidogrel 75 Mg Tab PO 75 mg QDAY JODI Administration Dextrose 50 ml 08/17/21 18:00 Dextrose 50% In Water (25gm) 50 Ml Syringe IV Q30MIN PRN Hypoglycemia Protocol Famotidine 10 mg 08/09/21 22:00 08/19/21 11:26 Famotidine 10 Mg Tab PO 10 mg BID JODI Administration Fentanyl 50 mcg 08/16/21 11:48 08/18/21 20:15 Fentanyl 100 Mcg/2 Ml Inj IV 50 mcg Q2H PRN Administration Pain, Moderate (4-6) Heparin Sodium (Porcine) 5,000 unit 08/11/21 10:00 08/19/21 11:25 Heparin 5,000 Unit/1 Ml Vial SUB-Q 5,000 unit Q12HR JODI Administration Hydralazine HCl 10 mg 08/06/21 04:21 08/15/21 07:53 Hydralazine 20 Mg/1 Ml Inj IV 10 mg Q6HR PRN Administration Hypertension Hydralazine HCl 100 mg 08/14/21 10:00 08/19/21 06:20 Hydralazine 100 Mg Tab PO Not Given Q8HR JODI Hydrophilic Ointment 1 applic 08/05/21 17:25 Lip Therapy Vaseline TP Q2HR PRN Dry Lips Propofol 1,000 mg in 100 mls @ 1.928 mls/hr 08/06/21 17:00 08/19/21 11:24 Diprivan 10 Mg/Ml IV 30 mcg/kg/min TITR JODI 11.565 mls/hr Administration Protocol 5 MCG/KG/MIN Sodium Chloride 100 mls @ 999 mls/hr 08/14/21 17:06 Nacl 0.9% IV GLENDY PRN Hypotension Insulin Human Regular 0 units 08/17/21 18:00 08/19/21 13:28 Insulin Regular, Human 100 Units/1 Ml SUB-Q Not Given Q6H [facility] Protocol Isosorbide Dinitrate 20 mg 08/11/21 14:00 08/19/21 06:21 Isosorbide Dinitrate 20 Mg Tab PO Not Given Q8HR [facility] Losartan Potassium 100 mg 08/12/21 10:00 08/19/21 11:27 Losartan 25 Mg Tab PO 100 mg DAILY JODI Administration Methylprednisolone Sodium Succinate 40 mg 08/16/21 13:00 08/19/21 11:25 Methylprednisolone Sod Succinate 40 Mg/1 Ml Inj IV 40 mg Q6HR JODI Administration Metoclopramide HCl 5 mg 08/05/21 21:03 Metoclopramide 10 Mg/2 Ml Inj IV Q6H PRN Nausea And Vomiting Metoprolol Tartrate 100 mg 08/12/21 12:00 08/19/21 11:29 Metoprolol Tartrate 50 Mg Tab PO 100 mg BID JODI Administration Minoxidil 5 mg 08/15/21 10:00 08/19/21 11:26 Minoxidil 2.5 Mg Tab PO 5 mg BID JODI Administration Multi-Ingred Cream/Lotion/Oil/Oint 1 applic 08/05/21 17:25 Mineral Oil/Petrolatum, White Ophth Oint 3.5 Gm OU Q4HR PRN Dry Eye(s) Ondansetron HCl 4 mg 08/05/21 21:03 Ondansetron 4 Mg/2 Ml Inj IV Q8H PRN Nausea And Vomiting Oxycodone/Acetaminophen 1 tab 08/05/21 21:03 Oxycodone /Acetaminophen 5-325mg Tab PO Q6H PRN Pain, Moderate (4-6) Senna 8.8 mg 08/07/21 13:00 08/19/21 11:29 Sennosides Oral Liqd 8.8 Mg/5 Ml Oral Liqd FEEDTUBE Not Given BID JODI Simple Syrup 15 ml 08/07/21 09:47 Simple Syrup 15 Ml FEEDTUBE PRN PRN Hypoglycemia Simple Syrup 30 ml 08/07/21 09:47 Simple Syrup 15 Ml FEEDTUBE PRN PRN Hypoglycemia Sodium Bicarbonate 325 mg 08/07/21 09:47 Sodium Bicarbonate 325 Mg Tab FEEDTUBE PRN PRN For Clogged Feeding Tube Sodium Chloride 10 ml 08/05/21 22:00 08/19/21 11:29 Sodium Chloride 0.9% 10 Ml Flush Syringe IV 10 ml BID JODI Administration Sodium Chloride 10 ml 08/05/21 21:03 Sodium Chloride 0.9% 10 Ml Flush Syringe IV PRN PRN LINE FLUSH Nutrition/Malnutrition Assess - Dietary Evaluation Nutrition/Malnutrition Findings: Nutrition Notes Start: 08/07/21 09:12 Freq: Status: Active Protocol: Document 08/16/21 12:51 ILSA (Rec: 08/16/21 13:04 ILSA [id number]) Nutrition Notes Initial or Follow up Reassessment Current Diagnosis CKD (stage V CKD),Coronary Artery Disease,Diabetes, Hypertension,Heart Failure Other Pertinent Diagnosis Sustained ventricular tachycardia, anemia Current Diet TF - Nepro at 32ml/hr Labs/Tests Na 132 BUN 26 Cr 3.9 Pertinent Medications Propofol at 3.855ml/hr ( provides 102 kcal), Senokot Height 5 ft 2 in Weight 64.25 kg [place] Body Weight (kg) 50.00 BMI 25.9 Weight Status Appropriate Subjective/Other Information Pt self-extubated this am, however, was re-intubated and remains on vent support. TF off at time of visit (12:18). Pending transfer to [facility] for ablation. Burn Absent Trauma Absent #1 Nutrition Diagnosis Inadequate oral intake Diagnosis Progress(for reassessment Continues documentation) Is patient on ventilator? Yes Is Patient Ambulatory and/or Out of Bed No REE-([place]-confined to bed) 1403.892 Calculation Used for Recommendations [place] Additional Notes Pro needs >1.2g/kg: >77g/day Fluid needs 1-1.5L/day Nutrition Intervention Nutrition Support: Resume TF when medically feasible; consider 50ml water flush q4h until hyponatremia resolves, then 150ml q4h. Goal #1 Resume TF to meet nutrient needs Follow-Up By: 08/19/21 Additional Comments F/U: TF re-start, Na lab/water flushes, resp status
[2021-08-20] MEDS: INSULIN REGULAR, HUMAN 100 UNITS/1 ML SUB-Q SCH ×5 (00:58→22:59)
[2021-08-20] MEDS: methylPREDNISolone Sod Succinate 40 MG/1 ML INJ IV SCH ×4 (00:58→17:10)
[2021-08-20] MEDS: ISOSORBIDE DINITRATE 20 MG TAB PO SCH ×3 (06:13→22:56)
[2021-08-20] MEDS: hydrALAZINE 100 MG TAB PO SCH ×3 (06:13→22:58)
[2021-08-20] MEDS: cloNIDine 0.1 MG TAB PO SCH (06:13)
[2021-08-20 06:41] LABS: Hematocrit 23.6 % (30.3-42.9); Hemoglobin 7.9 gm/dl (10.1-14.3); Mean Corpuscular HGB Conc 34 % (30-34); Mean Corpuscular Volume 82 fl (79-97); Platelet Count 405 K/mm3 (140-440); Red Cell Distribution Width 18.6 % (13.2-15.2)
[2021-08-20 07:14] LABS: Calcium 9.3 mg/dL (8.4-10.2)
[2021-08-20] MEDS: ASPIRIN 81 MG TAB CHEW PO SCH (09:28)
[2021-08-20] MEDS: HEPARIN 5,000 UNIT/1 ML VIAL SUB-Q SCH ×2 (09:28→22:58)
[2021-08-20] MEDS: cloNIDine 0.2 MG TAB PO SCH ×2 (09:28→22:57)
[2021-08-20] MEDS: FAMOTIDINE 10 MG TAB PO SCH ×2 (09:29→22:58)
[2021-08-20] MEDS: AMIODARONE 200 MG TAB PO SCH ×2 (09:29→22:57)
[2021-08-20] MEDS: CLOPIDOGREL 75 MG TAB PO SCH (09:29)
[2021-08-20] MEDS: LOSARTAN 25 MG TAB PO SCH (09:29)
[2021-08-20] MEDS: SENNOSIDES ORAL LIQD 8.8 MG/5 ML ORAL LIQD FEEDTUBE SCH ×2 (09:30→22:58)
[2021-08-20] MEDS: METOPROLOL TARTRATE 50 MG TAB PO SCH ×3 (09:30→22:58)
--- NOTE | 2021-08-20 09:33 | Progress Note ---
Assessment and Plan - Patient Problems (1) End stage renal disease on dialysis Current Visit: Yes Status: Chronic Plan to address problem: Cont hemodialysis on a Thursday, Thursday and Thursday schedule. (2) Hypokalemia Current Visit: Yes Status: Acute Plan to address problem: Potassium is back to normal. Follow-up (3) Anemia in end-stage renal disease Current Visit: Yes Status: Acute Plan to address problem: Give erythropoietin on dialysis and follow-up hemoglobin level (4) VT (ventricular tachycardia) Current Visit: Yes Status: Acute Plan to address problem: Continue management by ward attendant. Awaiting transfer to [place] for VT ablation Subjective Date of service: 08/20/21 Principal diagnosis: Recurrent VT Interval history: Pt seen and examined in the ICU, intubated, on vent support Objective - Vital Signs Vital signs: Vital Signs - 12hr 08/19/21 08/19/21 08/19/21 22:00 22:30 23:00 Temperature Pulse Rate 70 70 70 Pulse Rate [ From Monitor] Respiratory 12 13 13 Rate Blood Pressure 111/42 110/44 107/44 O2 Sat by Pulse 100 100 100 Oximetry 08/19/21 08/19/21 08/19/21 23:31 23:41 23:45 Temperature 98.3 F Pulse Rate 70 70 Pulse Rate [ From Monitor] Respiratory 10 L 12 Rate Blood Pressure 161/90 161/90 O2 Sat by Pulse 100 100 Oximetry 08/20/21 08/20/21 08/20/21 00:00 00:01 00:31 Temperature Pulse Rate 70 70 70 Pulse Rate [ 70 From Monitor] Respiratory 10 L 10 L Rate Blood Pressure 117/54 139/52 O2 Sat by Pulse 100 100 100 Oximetry 08/20/21 08/20/21 08/20/21 01:01 01:31 02:00 Temperature Pulse Rate 70 70 70 Pulse Rate [ From Monitor] Respiratory 8 L 11 L 10 L Rate Blood Pressure 151/49 143/47 147/94 O2 Sat by Pulse 100 100 97 Oximetry 08/20/21 08/20/21 08/20/21 02:30 02:31 03:01 Temperature Pulse Rate 70 70 70 Pulse Rate [ From Monitor] Respiratory 13 10 L Rate Blood Pressure 117/31 117/31 111/42 O2 Sat by Pulse 100 100 100 Oximetry 08/20/21 08/20/21 08/20/21 03:28 03:31 04:00 Temperature 99.4 F Pulse Rate 70 70 Pulse Rate [ 70 From Monitor] Respiratory 11 L 9 L Rate Blood Pressure 109/41 105/42 O2 Sat by Pulse 100 100 Oximetry 08/20/21 08/20/21 08/20/21 04:31 05:01 05:15 Temperature Pulse Rate 70 70 Pulse Rate [ From Monitor] Respiratory 11 L 7 L Rate Blood Pressure 94/44 98/42 129/39 O2 Sat by Pulse 100 100 100 Oximetry 08/20/21 08/20/21 08/20/21 05:31 05:45 06:01 Temperature Pulse Rate 70 70 70 Pulse Rate [ From Monitor] Respiratory 13 13 10 L Rate Blood Pressure 111/42 111/42 116/38 O2 Sat by Pulse 100 100 100 Oximetry 08/20/21 08/20/21 08/20/21 06:15 06:30 06:45 Temperature Pulse Rate 70 70 70 Pulse Rate [ From Monitor] Respiratory 13 13 13 Rate Blood Pressure 116/38 118/44 134/47 O2 Sat by Pulse 100 100 100 Oximetry 08/20/21 08/20/21 08/20/21 07:01 07:15 07:31 Temperature Pulse Rate 70 70 70 Pulse Rate [ From Monitor] Respiratory 11 L 13 9 L Rate Blood Pressure 133/49 133/49 145/96 O2 Sat by Pulse 100 100 100 Oximetry 08/20/21 08/20/21 08/20/21 07:45 08:00 08:01 Temperature Pulse Rate 70 70 70 Pulse Rate [ 70 From Monitor] Respiratory 10 L 16 12 Rate Blood Pressure 145/96 145/96 O2 Sat by Pulse 100 100 100 Oximetry 08/20/21 08/20/21 08/20/21 08:15 08:29 08:31 Temperature Pulse Rate 70 70 70 Pulse Rate [ From Monitor] Respiratory 12 9 L Rate Blood Pressure 145/96 135/46 143/49 O2 Sat by Pulse 100 100 100 Oximetry 08/20/21 08/20/21 08/20/21 08:32 08:45 08:59 Temperature Pulse Rate 70 Pulse Rate [ From Monitor] Respiratory 7 L Rate Blood Pressure 150/56 O2 Sat by Pulse 100 100 100 Oximetry 08/20/21 09:01 Temperature Pulse Rate 70 Pulse Rate [ From Monitor] Respiratory 12 Rate Blood Pressure 144/48 O2 Sat by Pulse 100 Oximetry - General Appearance General appearance: well-developed, well-nourished, appears stated age, sedated on ventilator, intubated EENT: ATNC, PERRL, mucous membranes moist Neck: no JVD Respiratory: Present: Clear to Ascultation Cardiology: regular, S1S2 Gastrointestinal: normoactive bowel sounds Integumentary: no rash - Lab 08/20/21 06:08 08/20/21 06:08 Most recent lab results ABG pH 7.508 (7.320-7.450) H 08/20/21 04:25 ABG pCO2 41.2 mm Hg 08/09/21 04:30 ABG pO2 91.5 mm Hg (80.0-90.0) H 08/09/21 04:30 ABG HCO3 26.6 mmol/L (20.0-26.0) H 08/09/21 04:30 ABG O2 Saturation 99.1 (0-100) 08/20/21 04:25 Calcium 9.3 mg/dL (8.4-10.2) 08/20/21 06:08 Phosphorus 3.10 mg/dL (2.5-4.5) 08/20/21 06:08 Magnesium 1.90 mg/dL (1.7-2.3) 08/20/21 06:08 Medications & Allergies - Medications Allergies/Adverse Reactions: Allergies No Known Allergies Allergy (Unverified 07/10/21 20:57) Home Medications: Home Medications Medication Instructions Recorded Confirmed Last Taken Type Icosapent Ethyl [Vascepa] 2 gm PO BID 07/12/21 07/12/21 Unknown History Losartan [Cozaar] 25 mg PO BID 07/12/21 07/12/21 Unknown History ALBUTEROL NEB's [Proventil 0.083% 2.5 mg IH Q4HRT PRN nebu 07/15/21 Unknown Rx NEBS] Acetaminophen [Acetaminophen 650 mg RI Q4H PRN supp.rect 07/15/21 Unknown Rx SUPPOS] Acetaminophen [Acetaminophen TAB] 650 mg PO Q4H PRN tablet 07/15/21 Unknown Rx Amiodarone [Cordarone 200 MG TAB] 200 mg PO BID tablet 07/15/21 Unknown Rx AtorvaSTATin [Lipitor] 80 mg PO QHS tablet 07/15/21 Unknown Rx Clopidogrel [Plavix] 75 mg PO QDAY tablet 07/15/21 Unknown Rx Dextrose 50% in Water [D50W (25GM) 50 ml IV Q30MIN PRN syringe 07/15/21 Unknown Rx Syringe] Free Water 60 ml PO Q4HR oral.liqd 07/15/21 Unknown Rx Isosorbide Dinitrate [Isordil] 5 mg PO Q8HR tablet 07/15/21 Unknown Rx Lipase/Protease/Amylase [Pancreaze 1 each FEEDTUBE PRN PRN capsule 07/15/21 Unknown Rx 10,500 Unit] Lispro Insulin [HumaLOG] 0 unit SUB-Q Q6HR units 07/15/21 Unknown Rx Metoprolol [Lopressor TAB] 25 mg PO TID tablet 07/15/21 Unknown Rx Simple Syrup 30 ml FEEDTUBE PRN PRN oral.liqd 07/15/21 Unknown Rx hydrALAZINE [Apresoline INJ] 10 mg IV Q6H PRN vial 07/15/21 Unknown Rx Active Medications: Generic Name Dose Route Start Last Admin Trade Name Freq PRN Reason Stop Dose Admin Acetaminophen 650 mg 08/06/21 16:30 08/06/21 16:30 Acetaminophen 650 Mg Rect Supp RI 650 mg Q6H PRN Administration Pain, Mild (1-3) Albuterol 2.5 mg 08/05/21 20:59 Albuterol 2.5 Mg/3 Ml Nebu IH Q4HRT PRN Shortness Of Breath Amiodarone HCl 400 mg 08/14/21 11:00 08/20/21 09:29 Amiodarone 200 Mg Tab PO 400 mg BID JODI Administration Lipase/Protease/Amylase 1 each 08/07/21 09:47 Lipase 10,500/Protease 25,000/Amylase 43,750 (Units) Dr Thomas FEEDTUBE PRN PRN For Clogged Feeding Tube Aspirin 81 mg 08/07/21 10:00 08/20/21 09:28 Aspirin 81 Mg Tab Chew PO 81 mg QDAY JODI Administration Atorvastatin Calcium 80 mg 08/05/21 22:00 08/19/21 22:20 Atorvastatin 40 Mg Tab PO 80 mg QHS JODI Administration Clonidine HCl 0.2 mg 08/20/21 10:00 08/20/21 09:28 Clonidine 0.2 Mg Tab PO Not Given Q12HR JODI Clopidogrel Bisulfate 75 mg 08/10/21 10:00 08/20/21 09:29 Clopidogrel 75 Mg Tab PO 75 mg QDAY JODI Administration Dextrose 50 ml 08/17/21 18:00 Dextrose 50% In Water (25gm) 50 Ml Syringe IV Q30MIN PRN Hypoglycemia Protocol Famotidine 10 mg 08/09/21 22:00 08/20/21 09:29 Famotidine 10 Mg Tab PO 10 mg BID JODI Administration Fentanyl 50 mcg 08/16/21 11:48 08/19/21 15:48 Fentanyl 100 Mcg/2 Ml Inj IV 50 mcg Q2H PRN Administration Pain, Moderate (4-6) Heparin Sodium (Porcine) 5,000 unit 08/11/21 10:00 08/20/21 09:28 Heparin 5,000 Unit/1 Ml Vial SUB-Q 5,000 unit Q12HR JODI Administration Hydralazine HCl 10 mg 08/06/21 04:21 08/15/21 07:53 Hydralazine 20 Mg/1 Ml Inj IV 10 mg Q6HR PRN Administration Hypertension Hydralazine HCl 100 mg 08/14/21 10:00 08/20/21 06:13 Hydralazine 100 Mg Tab PO Not Given Q8HR [facility] Hydrophilic Ointment 1 applic 08/05/21 17:25 Lip Therapy Vaseline TP Q2HR PRN Dry Lips Sodium Chloride 100 mls @ 999 mls/hr 08/14/21 17:06 Nacl 0.9% IV GLENDY PRN Hypotension Dexmedetomidine HCl 400 mcg/ 104 mls @ 3.341 mls/hr 08/20/21 10:00 Sodium Chloride IV TITRATE [facility] Protocol 0.2 MCG/KG/HR Insulin Human Regular 0 units 08/17/21 18:00 08/20/21 06:13 Insulin Regular, Human 100 Units/1 Ml SUB-Q Not Given Q6H [facility] Protocol Isosorbide Dinitrate 20 mg 08/11/21 14:00 08/20/21 06:13 Isosorbide Dinitrate 20 Mg Tab PO Not Given Q8HR [facility] Losartan Potassium 100 mg 08/12/21 10:00 08/20/21 09:29 Losartan 25 Mg Tab PO Not Given DAILY [facility] Methylprednisolone Sodium Succinate 40 mg 08/16/21 13:00 08/20/21 06:34 Methylprednisolone Sod Succinate 40 Mg/1 Ml Inj IV 40 mg Q6HR JODI Administration Metoclopramide HCl 5 mg 08/05/21 21:03 Metoclopramide 10 Mg/2 Ml Inj IV Q6H PRN Nausea And Vomiting Metoprolol Tartrate 100 mg 08/12/21 12:00 08/20/21 09:30 Metoprolol Tartrate 50 Mg Tab PO Not Given BID [facility] Multi-Ingred Cream/Lotion/Oil/Oint 1 applic 08/05/21 17:25 Mineral Oil/Petrolatum, White Ophth Oint 3.5 Gm OU Q4HR PRN Dry Eye(s) Ondansetron HCl 4 mg 08/05/21 21:03 Ondansetron 4 Mg/2 Ml Inj IV Q8H PRN Nausea And Vomiting Oxycodone/Acetaminophen 1 tab 08/05/21 21:03 Oxycodone /Acetaminophen 5-325mg Tab PO Q6H PRN Pain, Moderate (4-6) Senna 8.8 mg 08/07/21 13:00 08/20/21 09:30 Sennosides Oral Liqd 8.8 Mg/5 Ml Oral Liqd FEEDTUBE Not Given BID JODI Simple Syrup 15 ml 08/07/21 09:47 Simple Syrup 15 Ml FEEDTUBE PRN PRN Hypoglycemia Simple Syrup 30 ml 08/07/21 09:47 Simple Syrup 15 Ml FEEDTUBE PRN PRN Hypoglycemia Sodium Bicarbonate 325 mg 08/07/21 09:47 Sodium Bicarbonate 325 Mg Tab FEEDTUBE PRN PRN For Clogged Feeding Tube Sodium Chloride 10 ml 08/05/21 22:00 08/20/21 09:30 Sodium Chloride 0.9% 10 Ml Flush Syringe IV 10 ml BID [facility] Administration Sodium Chloride 10 ml 08/05/21 21:03 Sodium Chloride 0.9% 10 Ml Flush Syringe IV PRN PRN LINE FLUSH
--- NOTE | 2021-08-20 09:35 | Progress Note ---
Assessment and Plan 60 y/o female with known VT in the past, systolic heart failure with BIV AICD admitted with recurrent VT and electrolyte abnormality 08/20/21: Leak test today. If not audible leak, then will give 2 of FFP. Daily leak test should be performed. may need trach if FFP does not work. No runs of VT stable. If bed becomes available at [place] will transfer. 08/19/21: Continue IV steroids until leak test today. If leak is present will likely stop steroids. Will consider extubation yet again however if fails this time will need trach. Continue rate control therapy. Guarded prognosis. 08/16/21: Still no beds at [place]. Will do a leak test this afternoon. If no leak, then will start IV steroid therapy. Patient was only intubated for airway protection to help with catecholamine storm associated with VT storm. No prior lung disease. The multiple intubation may have caused some scarring in the trachea but right now this is not known. Continue supportive measures but may end up needing trach. 08/15/21: Will discuss with CM if any further news on LTACH acceptance. Attempt PSV trials today. BP still elevated and still on Cardene despite increase in med therapy. Will discuss with cards, and renal, and pharm on rounds. 08/14/21: Given no ICU beds at [place], will attempt to transfer to [facility] with hopes that patient can get ablation and then be transferred back over for further vent weaning. 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 Agree with [facility] increasing therapy for HTN. Will attempt to wean Cardene 08/13/21: Will start Clonidine 0.1 TID given her persistent need for Cardene drip. Will extubate today and transfer to tele floor. Hoping this will help the patient get a bed faster at [place]. Rate control per cards. 08/12/21: Will discontinue cardene while on HD as goal is to pull 3 liters. Will speak with cards and ask them to call [place] to see if they have a time frame. Continue supportive measures. Remains on Amio Drip. 08/08/21: Continue supportive measures. Follow up any new cardiac recs. 08/07/21: Await transfer to [place], continue supportive measures Follow up cards recs most likely needs ablation at [place] Continue amio drip per cards CCt 31 minutes. Subjective Date of service: 08/20/21 Principal diagnosis: Recurrent VT Interval history: No acute events. Weaning off diprovan to try precedex for sedation. Leak test had not been done yet. Objective Vital Signs - 12hr 08/19/21 08/19/21 08/19/21 22:00 22:30 23:00 Temperature Pulse Rate 70 70 70 Pulse Rate [ From Monitor] Respiratory 12 13 13 Rate Blood Pressure 111/42 110/44 107/44 O2 Sat by Pulse 100 100 100 Oximetry 08/19/21 08/19/21 08/19/21 23:31 23:41 23:45 Temperature 98.3 F Pulse Rate 70 70 Pulse Rate [ From Monitor] Respiratory 10 L 12 Rate Blood Pressure 161/90 161/90 O2 Sat by Pulse 100 100 Oximetry 08/20/21 08/20/21 08/20/21 00:00 00:01 00:31 Temperature Pulse Rate 70 70 70 Pulse Rate [ 70 From Monitor] Respiratory 10 L 10 L Rate Blood Pressure 117/54 139/52 O2 Sat by Pulse 100 100 100 Oximetry 08/20/21 08/20/21 08/20/21 01:01 01:31 02:00 Temperature Pulse Rate 70 70 70 Pulse Rate [ From Monitor] Respiratory 8 L 11 L 10 L Rate Blood Pressure 151/49 143/47 147/94 O2 Sat by Pulse 100 100 97 Oximetry 08/20/21 08/20/21 08/20/21 02:30 02:31 03:01 Temperature Pulse Rate 70 70 70 Pulse Rate [ From Monitor] Respiratory 13 10 L Rate Blood Pressure 117/31 117/31 111/42 O2 Sat by Pulse 100 100 100 Oximetry 08/20/21 08/20/21 08/20/21 03:28 03:31 04:00 Temperature 99.4 F Pulse Rate 70 70 Pulse Rate [ 70 From Monitor] Respiratory 11 L 9 L Rate Blood Pressure 109/41 105/42 O2 Sat by Pulse 100 100 Oximetry 08/20/21 08/20/21 08/20/21 04:31 05:01 05:15 Temperature Pulse Rate 70 70 Pulse Rate [ From Monitor] Respiratory 11 L 7 L Rate Blood Pressure 94/44 98/42 129/39 O2 Sat by Pulse 100 100 100 Oximetry 08/20/21 08/20/21 08/20/21 05:31 05:45 06:01 Temperature Pulse Rate 70 70 70 Pulse Rate [ From Monitor] Respiratory 13 13 10 L Rate Blood Pressure 111/42 111/42 116/38 O2 Sat by Pulse 100 100 100 Oximetry 08/20/21 08/20/21 08/20/21 06:15 06:30 06:45 Temperature Pulse Rate 70 70 70 Pulse Rate [ From Monitor] Respiratory 13 13 13 Rate Blood Pressure 116/38 118/44 134/47 O2 Sat by Pulse 100 100 100 Oximetry 08/20/21 08/20/21 08/20/21 07:01 07:15 07:31 Temperature Pulse Rate 70 70 70 Pulse Rate [ From Monitor] Respiratory 11 L 13 9 L Rate Blood Pressure 133/49 133/49 145/96 O2 Sat by Pulse 100 100 100 Oximetry 08/20/21 08/20/21 08/20/21 07:45 08:00 08:01 Temperature Pulse Rate 70 70 70 Pulse Rate [ 70 From Monitor] Respiratory 10 L 16 12 Rate Blood Pressure 145/96 145/96 O2 Sat by Pulse 100 100 100 Oximetry 08/20/21 08/20/21 08/20/21 08:15 08:29 08:31 Temperature Pulse Rate 70 70 70 Pulse Rate [ From Monitor] Respiratory 12 9 L Rate Blood Pressure 145/96 135/46 143/49 O2 Sat by Pulse 100 100 100 Oximetry 08/20/21 08/20/21 08/20/21 08:32 08:45 08:59 Temperature Pulse Rate 70 Pulse Rate [ From Monitor] Respiratory 7 L Rate Blood Pressure 150/56 O2 Sat by Pulse 100 100 100 Oximetry 08/20/21 09:01 Temperature Pulse Rate 70 Pulse Rate [ From Monitor] Respiratory 12 Rate Blood Pressure 144/48 O2 Sat by Pulse 100 Oximetry Constitutional: alert, other (intubated ) Eyes: non-icteric ENT: other (orally intubated, lips swollen) Neck: supple Effort: normal Ascultation: Bilateral: clear Percussion: Bilateral: not dull Cardiovascular: regular rate and rhythm (no mrg) Gastrointestinal: normoactive bowel sounds, soft, non-tender, non-distended Integumentary: normal Extremities: no cyanosis, no edema, pink and warm Neurologic: other (follows commands) Psychiatric: other (unable to assess) CBC and BMP: 08/20/21 06:08 08/20/21 06:08 ABG, PT/INR, D-dimer: ABG ABG pH 7.508 (7.320-7.450) H 08/20/21 04:25 POC ABG pCO2 35.1 mmHg (32.0-48.0) 08/20/21 04:25 ABG pCO2 41.2 mm Hg 08/09/21 04:30 POC ABG pO2 139.8 mmHg (83-108) H 08/20/21 04:25 ABG pO2 91.5 mm Hg (80.0-90.0) H 08/09/21 04:30 POC ABG HCO3 27.3 08/20/21 04:25 ABG O2 Saturation 99.1 (0-100) 08/20/21 04:25 PT/INR, D-dimer PT 14.2 Sec. (12.2-14.9) 08/06/21 16:35 INR 0.99 (0.87-1.13) 08/06/21 16:35 Abnormal lab findings: Abnormal Labs 08/05/21 08/05/21 08/05/21 15:55 15:55 18:50 WBC 3.7 L RBC 2.98 L Hgb 7.5 L Hct 23.8 L MCH 25 L RDW 18.9 H Plt Count 134 L Lymph % (Auto) [place] % (Auto) Lymph # (Auto) Seg Neutrophils % Seg Neuts % (Manual) Lymphocytes % (Manual) Monocytes % (Manual) 18.0 H Eosinophils % (Manual) Basophils % (Manual) 2.0 H Seg Neutrophils # Seg Neutrophils # Man Lymphocytes # (Manual) 0.9 L Monocytes # (Manual) APTT ABG pH 7.523 H POC ABG pCO2 POC ABG pO2 ABG pO2 47.1 L ABG HCO3 34.6 H ABG O2 Saturation 85.4 L ABG Base Excess 10.8 H ABG Hemoglobin 7.3 L ABG Oxyhemoglobin ABG Sodium ABG Potassium ABG Chloride ABG Glucose Oxyhemoglobin 83.6 L Carboxyhemoglobin Sodium Potassium 2.7 L* Chloride 93.8 L Carbon Dioxide 33 H BUN Creatinine 2.8 H Glucose 124 H POC Glucose Calcium 8.2 L Phosphorus ALT < 5 L Troponin T 0.126 H* Total Protein Albumin 3.5 L Triglycerides 202 H HDL Cholesterol 32 L TSH Arterial Blood Glucose Crossmatch 08/05/21 08/05/21 08/06/21 18:56 Unknown 04:20 WBC RBC Hgb Hct MCH RDW Plt Count Lymph % (Auto) [place] % (Auto) Lymph # (Auto) Seg Neutrophils % Seg Neuts % (Manual) Lymphocytes % (Manual) Monocytes % (Manual) Eosinophils % (Manual) Basophils % (Manual) Seg Neutrophils # Seg Neutrophils # Man Lymphocytes # (Manual) Monocytes # (Manual) APTT ABG pH 7.575 H 7.606 H* POC ABG pCO2 POC ABG pO2 ABG pO2 142.9 H 111.2 H ABG HCO3 33.2 H 33.6 H ABG O2 Saturation ABG Base Excess 10.4 H 11.2 H ABG Hemoglobin 6.6 L 6.8 L ABG Oxyhemoglobin ABG Sodium ABG Potassium ABG Chloride ABG Glucose Oxyhemoglobin Carboxyhemoglobin Sodium Potassium Chloride Carbon Dioxide BUN Creatinine Glucose POC Glucose Calcium Phosphorus ALT Troponin T 0.183 H* D Total Protein Albumin Triglycerides HDL Cholesterol TSH Arterial Blood Glucose Crossmatch 08/06/21 08/06/21 08/06/21 04:29 04:29 04:29 WBC 2.5 L RBC 2.70 L Hgb 6.8 L Hct 21.3 L MCH 25 L RDW 18.1 H Plt Count 126 L Lymph % (Auto) 45.0 H [place] % (Auto) 13.6 H Lymph # (Auto) 1.1 L Seg Neutrophils % 37.3 L Seg Neuts % (Manual) Lymphocytes % (Manual) Monocytes % (Manual) Eosinophils % (Manual) Basophils % (Manual) Seg Neutrophils # 0.9 L Seg Neutrophils # Man Lymphocytes # (Manual) Monocytes # (Manual) APTT 38.8 H ABG pH POC ABG pCO2 POC ABG pO2 ABG pO2 ABG HCO3 ABG O2 Saturation ABG Base Excess ABG Hemoglobin ABG Oxyhemoglobin ABG Sodium ABG Potassium ABG Chloride ABG Glucose Oxyhemoglobin Carboxyhemoglobin Sodium 136 L Potassium 3.0 L Chloride 92.6 L Carbon Dioxide 32 H BUN Creatinine 3.8 H Glucose POC Glucose Calcium Phosphorus ALT Troponin T Total Protein 5.8 L Albumin 3.1 L Triglycerides HDL Cholesterol TSH Arterial Blood Glucose Crossmatch 08/06/21 08/06/21 08/06/21 05:30 07:26 07:26 WBC RBC Hgb 7.0 L Hct 22.5 L MCH RDW Plt Count 127 L Lymph % (Auto) [place] % (Auto) Lymph # (Auto) Seg Neutrophils % Seg Neuts % (Manual) Lymphocytes % (Manual) Monocytes % (Manual) Eosinophils % (Manual) Basophils % (Manual) Seg Neutrophils # Seg Neutrophils # Man Lymphocytes # (Manual) Monocytes # (Manual) APTT 37.1 H ABG pH POC ABG pCO2 POC ABG pO2 ABG pO2 ABG HCO3 ABG O2 Saturation ABG Base Excess ABG Hemoglobin ABG Oxyhemoglobin ABG Sodium ABG Potassium ABG Chloride ABG Glucose Oxyhemoglobin Carboxyhemoglobin Sodium Potassium Chloride Carbon Dioxide BUN Creatinine Glucose POC Glucose Calcium Phosphorus ALT Troponin T Total Protein Albumin Triglycerides HDL Cholesterol TSH Arterial Blood Glucose Crossmatch See Detail 08/06/21 08/06/21 08/06/21 08:06 14:50 16:03 WBC RBC Hgb Hct MCH RDW Plt Count Lymph % (Auto) [place] % (Auto) Lymph # (Auto) Seg Neutrophils % Seg Neuts % (Manual) Lymphocytes % (Manual) Monocytes % (Manual) Eosinophils % (Manual) Basophils % (Manual) Seg Neutrophils # Seg Neutrophils # Man Lymphocytes # (Manual) Monocytes # (Manual) APTT ABG pH POC ABG pCO2 POC ABG pO2 ABG pO2 ABG HCO3 ABG O2 Saturation ABG Base Excess ABG Hemoglobin ABG Oxyhemoglobin ABG Sodium ABG Potassium ABG Chloride ABG Glucose Oxyhemoglobin Carboxyhemoglobin Sodium Potassium 3.1 L Chloride 92.4 L Carbon Dioxide 33 H BUN Creatinine 3.9 H Glucose POC Glucose 59 L 121 H Calcium Phosphorus ALT Troponin T Total Protein Albumin Triglycerides HDL Cholesterol TSH Arterial Blood Glucose Crossmatch 08/06/21 08/06/21 08/06/21 16:35 16:35 17:31 WBC 4.2 L RBC 3.27 L Hgb 8.5 L Hct 26.8 L MCH 26 L RDW 18.7 H Plt Count 124 L Lymph % (Auto) [place] % (Auto) 15.5 H Lymph # (Auto) 0.8 L Seg Neutrophils % Seg Neuts % (Manual) Lymphocytes % (Manual) Monocytes % (Manual) Eosinophils % (Manual) Basophils % (Manual) Seg Neutrophils # Seg Neutrophils # Man Lymphocytes # (Manual) Monocytes # (Manual) APTT ABG pH POC ABG pCO2 POC ABG pO2 ABG pO2 ABG HCO3 ABG O2 Saturation ABG Base Excess ABG Hemoglobin ABG Oxyhemoglobin ABG Sodium ABG Potassium ABG Chloride ABG Glucose Oxyhemoglobin Carboxyhemoglobin Sodium 133 L Potassium Chloride 93.2 L Carbon Dioxide BUN 21 H Creatinine 4.6 H Glucose POC Glucose 62 L Calcium 8.3 L Phosphorus ALT Troponin T Total Protein 6.2 L Albumin 3.2 L Triglycerides HDL Cholesterol TSH Arterial Blood Glucose Crossmatch 08/06/21 08/06/21 08/07/21 18:14 18:22 04:00 WBC 1.0 L* RBC 2.67 L Hgb 7.0 L Hct 21.8 L MCH 26 L RDW 18.7 H Plt Count 82 L Lymph % (Auto) [place] % (Auto) Lymph # (Auto) Seg Neutrophils % Seg Neuts % (Manual) 16.0 L Lymphocytes % (Manual) 60.0 H Monocytes % (Manual) Eosinophils % (Manual) 11.0 H Basophils % (Manual) 4.0 H Seg Neutrophils # Seg Neutrophils # Man 0.2 L Lymphocytes # (Manual) 0.6 L Monocytes # (Manual) APTT ABG pH 7.565 H POC ABG pCO2 POC ABG pO2 ABG pO2 113.3 H ABG HCO3 29.4 H ABG O2 Saturation ABG Base Excess 6.9 H ABG Hemoglobin 8.3 L ABG Oxyhemoglobin ABG Sodium ABG Potassium ABG Chloride ABG Glucose Oxyhemoglobin Carboxyhemoglobin Sodium Potassium Chloride Carbon Dioxide BUN Creatinine Glucose POC Glucose 148 H Calcium Phosphorus ALT Troponin T Total Protein Albumin Triglycerides HDL Cholesterol TSH Arterial Blood Glucose Crossmatch 08/07/21 08/07/21 08/07/21 04:00 04:25 08:30 WBC RBC Hgb Hct MCH RDW Plt Count Lymph % (Auto) [place] % (Auto) Lymph # (Auto) Seg Neutrophils % Seg Neuts % (Manual) Lymphocytes % (Manual) Monocytes % (Manual) Eosinophils % (Manual) Basophils % (Manual) Seg Neutrophils # Seg Neutrophils # Man Lymphocytes # (Manual) Monocytes # (Manual) APTT ABG pH 7.609 H* 7.479 H POC ABG pCO2 POC ABG pO2 ABG pO2 121.4 H 130.2 H ABG HCO3 28.5 H 30.3 H ABG O2 Saturation ABG Base Excess 7.2 H 6.2 H ABG Hemoglobin 10.7 L 8.1 L ABG Oxyhemoglobin ABG Sodium ABG Potassium ABG Chloride ABG Glucose Oxyhemoglobin Carboxyhemoglobin Sodium 133 L Potassium 3.2 L D Chloride 93.9 L Carbon Dioxide BUN 23 H Creatinine 4.3 H Glucose POC Glucose Calcium 8.1 L Phosphorus ALT Troponin T Total Protein Albumin Triglycerides HDL Cholesterol TSH Arterial Blood Glucose Crossmatch 08/07/21 08/07/21 08/07/21 13:18 13:30 15:51 WBC RBC Hgb Hct MCH RDW Plt Count Lymph % (Auto) [place] % (Auto) Lymph # (Auto) Seg Neutrophils % Seg Neuts % (Manual) Lymphocytes % (Manual) Monocytes % (Manual) Eosinophils % (Manual) Basophils % (Manual) Seg Neutrophils # Seg Neutrophils # Man Lymphocytes # (Manual) Monocytes # (Manual) APTT ABG pH POC ABG pCO2 POC ABG pO2 ABG pO2 ABG HCO3 ABG O2 Saturation ABG Base Excess ABG Hemoglobin ABG Oxyhemoglobin ABG Sodium ABG Potassium ABG Chloride ABG Glucose Oxyhemoglobin Carboxyhemoglobin Sodium Potassium Chloride Carbon Dioxide BUN Creatinine Glucose POC Glucose 67 L 58 L Calcium Phosphorus ALT Troponin T Total Protein Albumin Triglycerides HDL Cholesterol TSH 7.070 H Arterial Blood Glucose Crossmatch 08/08/21 08/08/21 08/08/21 04:19 04:26 04:26 WBC RBC Hgb 6.8 L Hct 21.6 L MCH RDW Plt Count 91 L Lymph % (Auto) [place] % (Auto) Lymph # (Auto) Seg Neutrophils % Seg Neuts % (Manual) Lymphocytes % (Manual) Monocytes % (Manual) Eosinophils % (Manual) Basophils % (Manual) Seg Neutrophils # Seg Neutrophils # Man Lymphocytes # (Manual) Monocytes # (Manual) APTT ABG pH 7.545 H POC ABG pCO2 POC ABG pO2 ABG pO2 136.1 H ABG HCO3 27.3 H ABG O2 Saturation ABG Base Excess 4.5 H ABG Hemoglobin 6.9 L ABG Oxyhemoglobin ABG Sodium ABG Potassium ABG Chloride ABG Glucose Oxyhemoglobin Carboxyhemoglobin Sodium 132 L Potassium Chloride 93.5 L Carbon Dioxide BUN Creatinine 3.7 H Glucose POC Glucose Calcium Phosphorus ALT Troponin T Total Protein Albumin Triglycerides HDL Cholesterol TSH Arterial Blood Glucose Crossmatch 08/08/21 08/08/21 08/08/21 09:45 12:23 18:51 WBC RBC Hgb Hct MCH RDW Plt Count Lymph % (Auto) [place] % (Auto) Lymph # (Auto) Seg Neutrophils % Seg Neuts % (Manual) Lymphocytes % (Manual) Monocytes % (Manual) Eosinophils % (Manual) Basophils % (Manual) Seg Neutrophils # Seg Neutrophils # Man Lymphocytes # (Manual) Monocytes # (Manual) APTT ABG pH 7.471 H POC ABG pCO2 POC ABG pO2 71.1 L ABG pO2 ABG HCO3 ABG O2 Saturation ABG Base Excess ABG Hemoglobin ABG Oxyhemoglobin ABG Sodium 128.9 L ABG Potassium ABG Chloride 95.0 L ABG Glucose 64 L Oxyhemoglobin Carboxyhemoglobin Sodium Potassium Chloride Carbon Dioxide BUN Creatinine Glucose POC Glucose 58 L 68 L Calcium Phosphorus ALT Troponin T Total Protein Albumin Triglycerides HDL Cholesterol TSH Arterial Blood Glucose 64 L Crossmatch 08/09/21 08/09/21 08/09/21 04:30 04:33 04:33 WBC 2.4 L RBC 3.16 L Hgb 8.3 L Hct 26.5 L MCH 26 L RDW 18.3 H Plt Count 113 L Lymph % (Auto) [place] % (Auto) Lymph # (Auto) Seg Neutrophils % Seg Neuts % (Manual) Lymphocytes % (Manual) Monocytes % (Manual) Eosinophils % (Manual) Basophils % (Manual) Seg Neutrophils # Seg Neutrophils # Man Lymphocytes # (Manual) Monocytes # (Manual) APTT ABG pH POC ABG pCO2 POC ABG pO2 ABG pO2 91.5 H ABG HCO3 26.6 H ABG O2 Saturation ABG Base Excess ABG Hemoglobin 9.0 L ABG Oxyhemoglobin ABG Sodium ABG Potassium ABG Chloride ABG Glucose Oxyhemoglobin Carboxyhemoglobin Sodium 129 L Potassium Chloride 91.9 L Carbon Dioxide BUN 22 H Creatinine 4.7 H Glucose POC Glucose Calcium Phosphorus ALT Troponin T Total Protein Albumin Triglycerides HDL Cholesterol TSH Arterial Blood Glucose Crossmatch 08/10/21 08/10/21 08/10/21 04:00 04:00 04:55 WBC 3.3 L RBC 3.32 L Hgb 8.9 L Hct 27.6 L MCH 27 L RDW 18.3 H Plt Count Lymph % (Auto) [place] % (Auto) Lymph # (Auto) Seg Neutrophils % Seg Neuts % (Manual) Lymphocytes % (Manual) Monocytes % (Manual) 9.0 H Eosinophils % (Manual) Basophils % (Manual) Seg Neutrophils # Seg Neutrophils # Man Lymphocytes # (Manual) 0.6 L Monocytes # (Manual) APTT ABG pH POC ABG pCO2 POC ABG pO2 ABG pO2 ABG HCO3 ABG O2 Saturation ABG Base Excess ABG Hemoglobin 9.6 L ABG Oxyhemoglobin ABG Sodium 120.3 L ABG Potassium 5.2 H ABG Chloride 88.0 L ABG Glucose Oxyhemoglobin Carboxyhemoglobin 0.4 L Sodium 123 L Potassium 5.5 H D Chloride 84.8 L Carbon Dioxide BUN 30 H Creatinine 5.5 H Glucose 139 H POC Glucose Calcium Phosphorus 5.90 H ALT Troponin T Total Protein Albumin Triglycerides HDL Cholesterol TSH Arterial Blood Glucose Crossmatch 08/10/21 08/11/21 08/11/21 12:17 04:00 05:53 WBC RBC 3.50 L Hgb 9.2 L Hct 29.0 L MCH 26 L RDW 18.4 H Plt Count Lymph % (Auto) [place] % (Auto) Lymph # (Auto) Seg Neutrophils % Seg Neuts % (Manual) 76.0 H Lymphocytes % (Manual) 8.0 L Monocytes % (Manual) 13.0 H Eosinophils % (Manual) Basophils % (Manual) Seg Neutrophils # Seg Neutrophils # Man Lymphocytes # (Manual) 0.6 L Monocytes # (Manual) 0.9 H APTT ABG pH POC ABG pCO2 POC ABG pO2 ABG pO2 ABG HCO3 ABG O2 Saturation ABG Base Excess ABG Hemoglobin ABG Oxyhemoglobin ABG Sodium ABG Potassium ABG Chloride ABG Glucose Oxyhemoglobin Carboxyhemoglobin Sodium 128 L Potassium Chloride 90.3 L Carbon Dioxide BUN 24 H Creatinine 4.3 H Glucose 135 H POC Glucose 142 H Calcium Phosphorus ALT Troponin T Total Protein Albumin Triglycerides HDL Cholesterol TSH Arterial Blood Glucose Crossmatch 08/11/21 08/12/21 08/12/21 16:39 05:23 05:23 WBC RBC 3.20 L Hgb 8.8 L Hct 26.7 L MCH RDW 18.6 H Plt Count Lymph % (Auto) [place] % (Auto) Lymph # (Auto) Seg Neutrophils % Seg Neuts % (Manual) Lymphocytes % (Manual) Monocytes % (Manual) Eosinophils % (Manual) Basophils % (Manual) Seg Neutrophils # Seg Neutrophils # Man Lymphocytes # (Manual) Monocytes # (Manual) APTT ABG pH POC ABG pCO2 POC ABG pO2 ABG pO2 ABG HCO3 ABG O2 Saturation ABG Base Excess ABG Hemoglobin ABG Oxyhemoglobin ABG Sodium ABG Potassium ABG Chloride ABG Glucose Oxyhemoglobin Carboxyhemoglobin Sodium 125 L Potassium Chloride 86.6 L Carbon Dioxide 21 L BUN 34 H Creatinine 5.0 H Glucose 111 H POC Glucose 112 H Calcium Phosphorus ALT Troponin T Total Protein Albumin Triglycerides HDL Cholesterol TSH Arterial Blood Glucose Crossmatch 08/12/21 08/12/21 08/13/21 12:18 17:56 06:01 WBC RBC Hgb Hct MCH RDW Plt Count Lymph % (Auto) [place] % (Auto) Lymph # (Auto) Seg Neutrophils % Seg Neuts % (Manual) Lymphocytes % (Manual) Monocytes % (Manual) Eosinophils % (Manual) Basophils % (Manual) Seg Neutrophils # Seg Neutrophils # Man Lymphocytes # (Manual) Monocytes # (Manual) APTT ABG pH POC ABG pCO2 POC ABG pO2 ABG pO2 ABG HCO3 ABG O2 Saturation ABG Base Excess ABG Hemoglobin ABG Oxyhemoglobin ABG Sodium ABG Potassium ABG Chloride ABG Glucose Oxyhemoglobin Carboxyhemoglobin Sodium Potassium Chloride Carbon Dioxide BUN Creatinine Glucose POC Glucose 140 H 119 H 110 H Calcium Phosphorus ALT Troponin T Total Protein Albumin Triglycerides HDL Cholesterol TSH Arterial Blood Glucose Crossmatch 08/13/21 08/13/21 08/14/21 Unknown Unknown 04:00 WBC RBC Hgb Hct MCH RDW Plt Count Lymph % (Auto) [place] % (Auto) Lymph # (Auto) Seg Neutrophils % Seg Neuts % (Manual) Lymphocytes % (Manual) Monocytes % (Manual) Eosinophils % (Manual) Basophils % (Manual) Seg Neutrophils # Seg Neutrophils # Man Lymphocytes # (Manual) Monocytes # (Manual) APTT ABG pH POC ABG pCO2 POC ABG pO2 ABG pO2 ABG HCO3 ABG O2 Saturation ABG Base Excess ABG Hemoglobin ABG Oxyhemoglobin ABG Sodium ABG Potassium ABG Chloride ABG Glucose Oxyhemoglobin Carboxyhemoglobin Sodium 129 L 128 L Potassium Chloride 90.1 L 89.7 L Carbon Dioxide BUN 24 H 36 H Creatinine 3.8 H 4.2 H Glucose POC Glucose Calcium Phosphorus ALT Troponin T Total Protein Albumin Triglycerides 399 H HDL Cholesterol TSH Arterial Blood Glucose Crossmatch 08/14/21 08/14/21 08/14/21 05:44 11:57 13:12 WBC RBC Hgb Hct MCH RDW Plt Count Lymph % (Auto) [place] % (Auto) Lymph # (Auto) Seg Neutrophils % Seg Neuts % (Manual) Lymphocytes % (Manual) Monocytes % (Manual) Eosinophils % (Manual) Basophils % (Manual) Seg Neutrophils # Seg Neutrophils # Man Lymphocytes # (Manual) Monocytes # (Manual) APTT ABG pH 7.498 H POC ABG pCO2 29.1 L POC ABG pO2 61.8 L ABG pO2 ABG HCO3 ABG O2 Saturation ABG Base Excess ABG Hemoglobin 8.6 L ABG Oxyhemoglobin 91.9 L ABG Sodium 126.4 L ABG Potassium ABG Chloride 92.0 L ABG Glucose 99 H Oxyhemoglobin Carboxyhemoglobin Sodium Potassium Chloride Carbon Dioxide BUN Creatinine Glucose POC Glucose 111 H 111 H Calcium Phosphorus ALT Troponin T Total Protein Albumin Triglycerides HDL Cholesterol TSH Arterial Blood Glucose 99 H Crossmatch 08/14/21 08/15/21 08/15/21 Unknown 04:34 04:34 WBC RBC 3.14 L 2.79 L Hgb 8.5 L 7.8 L Hct 25.5 L 22.8 L MCH 27 L RDW 19.1 H 18.8 H Plt Count Lymph % (Auto) [place] % (Auto) Lymph # (Auto) Seg Neutrophils % Seg Neuts % (Manual) Lymphocytes % (Manual) Monocytes % (Manual) Eosinophils % (Manual) Basophils % (Manual) Seg Neutrophils # Seg Neutrophils # Man Lymphocytes # (Manual) Monocytes # (Manual) APTT ABG pH POC ABG pCO2 POC ABG pO2 ABG pO2 ABG HCO3 ABG O2 Saturation ABG Base Excess ABG Hemoglobin ABG Oxyhemoglobin ABG Sodium ABG Potassium ABG Chloride ABG Glucose Oxyhemoglobin Carboxyhemoglobin Sodium 128 L Potassium Chloride 88.8 L Carbon Dioxide BUN 44 H Creatinine 5.1 H Glucose POC Glucose Calcium Phosphorus ALT Troponin T Total Protein Albumin Triglycerides HDL Cholesterol TSH Arterial Blood Glucose Crossmatch 08/15/21 08/15/21 08/15/21 05:22 10:56 16:52 WBC RBC Hgb Hct MCH RDW Plt Count Lymph % (Auto) [place] % (Auto) Lymph # (Auto) Seg Neutrophils % Seg Neuts % (Manual) Lymphocytes % (Manual) Monocytes % (Manual) Eosinophils % (Manual) Basophils % (Manual) Seg Neutrophils # Seg Neutrophils # Man Lymphocytes # (Manual) Monocytes # (Manual) APTT ABG pH 7.496 H POC ABG pCO2 29.8 L POC ABG pO2 ABG pO2 ABG HCO3 ABG O2 Saturation ABG Base Excess ABG Hemoglobin 7.4 L ABG Oxyhemoglobin ABG Sodium 124.3 L ABG Potassium ABG Chloride 92.0 L ABG Glucose Oxyhemoglobin Carboxyhemoglobin Sodium Potassium Chloride Carbon Dioxide BUN Creatinine Glucose POC Glucose 111 H 115 H Calcium Phosphorus ALT Troponin T Total Protein Albumin Triglycerides HDL Cholesterol TSH Arterial Blood Glucose Crossmatch 08/16/21 08/16/21 08/16/21 04:00 04:00 10:57 WBC RBC 2.96 L Hgb 8.0 L Hct 23.9 L MCH 27 L RDW 18.6 H Plt Count Lymph % (Auto) [place] % (Auto) Lymph # (Auto) Seg Neutrophils % Seg Neuts % (Manual) Lymphocytes % (Manual) Monocytes % (Manual) Eosinophils % (Manual) Basophils % (Manual) Seg Neutrophils # Seg Neutrophils # Man Lymphocytes # (Manual) Monocytes # (Manual) APTT ABG pH POC ABG pCO2 POC ABG pO2 ABG pO2 ABG HCO3 ABG O2 Saturation ABG Base Excess ABG Hemoglobin ABG Oxyhemoglobin ABG Sodium ABG Potassium ABG Chloride ABG Glucose Oxyhemoglobin Carboxyhemoglobin Sodium 132 L Potassium Chloride 93.1 L Carbon Dioxide BUN 26 H Creatinine 3.9 H Glucose 119 H POC Glucose 112 H Calcium Phosphorus ALT Troponin T Total Protein Albumin Triglycerides HDL Cholesterol TSH Arterial Blood Glucose Crossmatch 08/16/21 08/17/21 08/17/21 23:20 04:00 04:00 WBC RBC 3.07 L Hgb 8.1 L Hct 25.0 L MCH 26 L RDW 19.3 H Plt Count Lymph % (Auto) [place] % (Auto) Lymph # (Auto) Seg Neutrophils % Seg Neuts % (Manual) Lymphocytes % (Manual) Monocytes % (Manual) Eosinophils % (Manual) Basophils % (Manual) Seg Neutrophils # Seg Neutrophils # Man Lymphocytes # (Manual) Monocytes # (Manual) APTT ABG pH POC ABG pCO2 POC ABG pO2 ABG pO2 ABG HCO3 ABG O2 Saturation ABG Base Excess ABG Hemoglobin ABG Oxyhemoglobin ABG Sodium ABG Potassium ABG Chloride ABG Glucose Oxyhemoglobin Carboxyhemoglobin Sodium 135 L Potassium Chloride 97.4 L Carbon Dioxide BUN 20 H Creatinine 3.0 H Glucose 171 H POC Glucose 125 H Calcium Phosphorus ALT Troponin T Total Protein Albumin Triglycerides HDL Cholesterol TSH Arterial Blood Glucose Crossmatch 08/17/21 08/17/21 08/17/21 05:09 05:12 11:46 WBC RBC Hgb Hct MCH RDW Plt Count Lymph % (Auto) [place] % (Auto) Lymph # (Auto) Seg Neutrophils % Seg Neuts % (Manual) Lymphocytes % (Manual) Monocytes % (Manual) Eosinophils % (Manual) Basophils % (Manual) Seg Neutrophils # Seg Neutrophils # Man Lymphocytes # (Manual) Monocytes # (Manual) APTT ABG pH 7.579 H POC ABG pCO2 27.0 L POC ABG pO2 139.0 H ABG pO2 ABG HCO3 ABG O2 Saturation ABG Base Excess ABG Hemoglobin 8.1 L ABG Oxyhemoglobin 98.3 H ABG Sodium 132.1 L ABG Potassium ABG Chloride ABG Glucose 160 H Oxyhemoglobin Carboxyhemoglobin Sodium Potassium Chloride Carbon Dioxide BUN Creatinine Glucose POC Glucose 155 H 170 H Calcium Phosphorus ALT Troponin T Total Protein Albumin Triglycerides HDL Cholesterol TSH Arterial Blood Glucose 160 H Crossmatch 08/17/21 08/18/21 08/18/21 17:41 00:21 04:00 WBC RBC 2.82 L Hgb 7.5 L Hct 22.7 L MCH 27 L RDW 18.9 H Plt Count Lymph % (Auto) [place] % (Auto) Lymph # (Auto) Seg Neutrophils % Seg Neuts % (Manual) Lymphocytes % (Manual) Monocytes % (Manual) Eosinophils % (Manual) Basophils % (Manual) Seg Neutrophils # Seg Neutrophils # Man Lymphocytes # (Manual) Monocytes # (Manual) APTT ABG pH POC ABG pCO2 POC ABG pO2 ABG pO2 ABG HCO3 ABG O2 Saturation ABG Base Excess ABG Hemoglobin ABG Oxyhemoglobin ABG Sodium ABG Potassium ABG Chloride ABG Glucose Oxyhemoglobin Carboxyhemoglobin Sodium Potassium Chloride Carbon Dioxide BUN Creatinine Glucose POC Glucose 150 H 152 H Calcium Phosphorus ALT Troponin T Total Protein Albumin Triglycerides HDL Cholesterol TSH Arterial Blood Glucose Crossmatch 08/18/21 08/18/21 08/18/21 04:00 05:38 11:58 WBC RBC Hgb Hct MCH RDW Plt Count Lymph % (Auto) [place] % (Auto) Lymph # (Auto) Seg Neutrophils % Seg Neuts % (Manual) Lymphocytes % (Manual) Monocytes % (Manual) Eosinophils % (Manual) Basophils % (Manual) Seg Neutrophils # Seg Neutrophils # Man Lymphocytes # (Manual) Monocytes # (Manual) APTT ABG pH POC ABG pCO2 POC ABG pO2 ABG pO2 ABG HCO3 ABG O2 Saturation ABG Base Excess ABG Hemoglobin ABG Oxyhemoglobin ABG Sodium ABG Potassium ABG Chloride ABG Glucose Oxyhemoglobin Carboxyhemoglobin Sodium 132 L Potassium Chloride 94.8 L Carbon Dioxide BUN 36 H Creatinine 4.0 H Glucose 168 H POC Glucose 158 H 139 H Calcium Phosphorus ALT Troponin T Total Protein Albumin Triglycerides HDL Cholesterol TSH Arterial Blood Glucose Crossmatch 08/18/21 08/18/21 08/19/21 16:17 23:11 04:00 WBC RBC 3.09 L Hgb 8.2 L Hct 25.0 L MCH 27 L RDW 19.0 H Plt Count 506 H Lymph % (Auto) [place] % (Auto) Lymph # (Auto) Seg Neutrophils % Seg Neuts % (Manual) Lymphocytes % (Manual) Monocytes % (Manual) Eosinophils % (Manual) Basophils % (Manual) Seg Neutrophils # Seg Neutrophils # Man Lymphocytes # (Manual) Monocytes # (Manual) APTT ABG pH POC ABG pCO2 POC ABG pO2 ABG pO2 ABG HCO3 ABG O2 Saturation ABG Base Excess ABG Hemoglobin ABG Oxyhemoglobin ABG Sodium ABG Potassium ABG Chloride ABG Glucose Oxyhemoglobin Carboxyhemoglobin Sodium Potassium Chloride Carbon Dioxide BUN Creatinine Glucose POC Glucose 126 H 170 H Calcium Phosphorus ALT Troponin T Total Protein Albumin Triglycerides HDL Cholesterol TSH Arterial Blood Glucose Crossmatch 08/19/21 08/19/21 08/19/21 04:00 05:17 12:34 WBC RBC Hgb Hct MCH RDW Plt Count Lymph % (Auto) [place] % (Auto) Lymph # (Auto) Seg Neutrophils % Seg Neuts % (Manual) Lymphocytes % (Manual) Monocytes % (Manual) Eosinophils % (Manual) Basophils % (Manual) Seg Neutrophils # Seg Neutrophils # Man Lymphocytes # (Manual) Monocytes # (Manual) APTT ABG pH POC ABG pCO2 POC ABG pO2 ABG pO2 ABG HCO3 ABG O2 Saturation ABG Base Excess ABG Hemoglobin ABG Oxyhemoglobin ABG Sodium ABG Potassium ABG Chloride ABG Glucose Oxyhemoglobin Carboxyhemoglobin Sodium 135 L Potassium Chloride 94.4 L Carbon Dioxide BUN 53 H Creatinine 4.5 H Glucose 125 H POC Glucose 113 H 130 H Calcium Phosphorus ALT Troponin T Total Protein Albumin Triglycerides HDL Cholesterol TSH Arterial Blood Glucose Crossmatch 08/19/21 08/20/21 08/20/21 23:30 04:25 05:11 WBC RBC Hgb Hct MCH RDW Plt Count Lymph % (Auto) [place] % (Auto) Lymph # (Auto) Seg Neutrophils % Seg Neuts % (Manual) Lymphocytes % (Manual) Monocytes % (Manual) Eosinophils % (Manual) Basophils % (Manual) Seg Neutrophils # Seg Neutrophils # Man Lymphocytes # (Manual) Monocytes # (Manual) APTT ABG pH 7.508 H POC ABG pCO2 POC ABG pO2 139.8 H ABG pO2 ABG HCO3 ABG O2 Saturation ABG Base Excess ABG Hemoglobin 8.2 L ABG Oxyhemoglobin 98.3 H ABG Sodium 129.8 L ABG Potassium ABG Chloride 96.0 L ABG Glucose 162 H Oxyhemoglobin Carboxyhemoglobin Sodium Potassium Chloride Carbon Dioxide BUN Creatinine Glucose POC Glucose 155 H 140 H Calcium Phosphorus ALT Troponin T Total Protein Albumin Triglycerides HDL Cholesterol TSH Arterial Blood Glucose 162 H Crossmatch 08/20/21 08/20/21 06:08 06:08 WBC RBC 2.90 L Hgb 7.9 L Hct 23.6 L MCH 27 L RDW 18.6 H Plt Count Lymph % (Auto) [place] % (Auto) Lymph # (Auto) Seg Neutrophils % Seg Neuts % (Manual) Lymphocytes % (Manual) Monocytes % (Manual) Eosinophils % (Manual) Basophils % (Manual) Seg Neutrophils # Seg Neutrophils # Man Lymphocytes # (Manual) Monocytes # (Manual) APTT ABG pH POC ABG pCO2 POC ABG pO2 ABG pO2 ABG HCO3 ABG O2 Saturation ABG Base Excess ABG Hemoglobin ABG Oxyhemoglobin ABG Sodium ABG Potassium ABG Chloride ABG Glucose Oxyhemoglobin Carboxyhemoglobin Sodium 133 L Potassium Chloride 93.9 L Carbon Dioxide BUN 31 H Creatinine 3.3 H Glucose 148 H POC Glucose Calcium Phosphorus ALT Troponin T Total Protein Albumin Triglycerides 433 H HDL Cholesterol TSH Arterial Blood Glucose Crossmatch Allied health notes reviewed: nursing
--- NOTE | 2021-08-20 11:16 | Progress Note ---
Assessment and Plan Patient is a 60-year-old female with recurrent V. tach, end-stage renal disease, s/p ICD, and recurrent severe hypokalemia VT Storm Recurrent AICD Discharges CAD s/p PCI (07/17/2021) Accelerated HTN ESRD on HD Hyponatremia Severe Hypokalemia (POA, resolved) Anemia Thrombocytopenia Type 2 [place] HTN H/o CVA Plan: Currently waiting bed availability at [facility] for transfer for VT ablation Continue aspirin, Plavix, Lipitor Continue losartan 100 mg p.o. daily and metoprolol 100 mg p.o. twice daily, hydralazine 100 mg p.o.Q8hrs,and amio 400 mg p.o. twice daily, Agree with decreasing to clonidine 0.2 mg p.o. BID and stopping minoxidil due to hypotension pt awake on profolol and awaiting extubation if possible Patient seen in conjunction with Dr. Padilla who agrees with this plan of care - Patient Problems (1) AICD discharge Current Visit: Yes Status: Acute (2) Anemia in end-stage renal disease Current Visit: Yes Status: Acute (3) Elevated troponin Current Visit: Yes Status: Acute (4) Hypokalemia Current Visit: Yes Status: Acute (5) Sustained ventricular tachycardia Current Visit: Yes Status: Acute (6) Diabetes Current Visit: No Status: Acute (7) Respiratory failure Current Visit: No Status: Acute Qualifiers: Chronicity: acute Respiratory failure complication: hypoxia Qualified Code(s): J96.01 - Acute respiratory failure with hypoxia (8) Hypertension Current Visit: No Status: Chronic Qualifiers: Hypertension type: primary hypertension Qualified Code(s): I10 - Essential (primary) hypertension Subjective Date of service: 08/20/21 Principal diagnosis: Recurrent VT Interval history: Patient remains intubated Patient A paced 70 no events on monitor Objective Vital Signs Temp Pulse Pulse Resp BP Pulse Ox 08/20/21 09:01 70 12 144/48 100 08/20/21 08:59 100 08/20/21 08:45 70 7 L 150/56 100 08/20/21 08:32 100 08/20/21 08:31 70 9 L 143/49 100 08/20/21 08:29 70 135/46 100 08/20/21 08:15 70 12 145/96 100 08/20/21 08:01 70 12 145/96 100 08/20/21 08:00 70 70 16 100 08/20/21 07:45 70 10 L 145/96 100 08/20/21 07:31 70 9 L 145/96 100 08/20/21 07:15 70 13 133/49 100 08/20/21 07:01 70 11 L 133/49 100 08/20/21 06:45 70 13 134/47 100 08/20/21 06:30 70 13 118/44 100 08/20/21 06:15 70 13 116/38 100 08/20/21 06:01 70 10 L 116/38 100 08/20/21 05:45 70 13 111/42 100 08/20/21 05:31 70 13 111/42 100 08/20/21 05:15 70 7 L 129/39 100 08/20/21 05:01 98/42 100 08/20/21 04:31 70 11 L 94/44 100 08/20/21 04:00 70 70 9 L 105/42 100 08/20/21 03:31 70 11 L 109/41 100 08/20/21 03:28 99.4 F 08/20/21 03:01 70 10 L 111/42 100 08/20/21 02:31 70 117/31 100 08/20/21 02:30 70 13 117/31 100 08/20/21 02:00 70 10 L 147/94 97 08/20/21 01:31 70 11 L 143/47 100 08/20/21 01:01 70 8 L 151/49 100 08/20/21 00:31 70 10 L 139/52 100 08/20/21 00:01 70 10 L 117/54 100 08/20/21 00:00 70 70 100 08/19/21 23:45 98.3 F 08/19/21 23:41 70 12 161/90 100 08/19/21 23:31 70 10 L 161/90 100 08/19/21 23:00 70 13 107/44 100 08/19/21 22:30 70 13 110/44 100 08/19/21 22:00 70 12 111/42 100 08/19/21 21:30 70 10 L 116/45 100 08/19/21 21:00 70 13 129/48 100 08/19/21 20:31 80 144/66 100 08/19/21 20:25 70 117/48 100 08/19/21 20:11 70 23 184/101 100 08/19/21 20:01 70 9 L 184/101 100 08/19/21 20:00 70 70 100 08/19/21 19:49 98.4 F 08/19/21 19:31 70 9 L 164/53 97 08/19/21 19:00 70 7 L 138/114 98 08/19/21 18:31 70 8 L 184/61 98 08/19/21 18:01 70 7 L 108/45 97 08/19/21 17:30 70 13 81/31 100 08/19/21 17:01 70 14 167/68 90 08/19/21 16:31 70 4 L 167/68 100 08/19/21 16:01 70 11 L 189/125 100 08/19/21 16:00 97.4 F L 70 70 100 08/19/21 15:49 189/125 08/19/21 15:48 189/125 08/19/21 15:31 70 11 L 181/76 100 08/19/21 15:23 70 10 L 116/51 100 08/19/21 15:01 70 12 184/61 100 08/19/21 14:31 70 9 L 176/55 100 08/19/21 14:04 70 26 H 192/83 100 08/19/21 14:01 70 8 L 151/49 100 08/19/21 13:31 70 11 L 192/61 100 08/19/21 13:01 70 9 L 192/83 100 08/19/21 12:50 70 170/86 100 08/19/21 12:31 70 12 182/62 100 08/19/21 12:01 70 10 L 164/60 96 08/19/21 12:00 97.5 F L 70 70 100 08/19/21 11:31 82 11 L 164/60 98 - Physical Examination General: Other (intubated) HEENT: Positive: Normocephaly, Mucus Membranes Dry Neck: Positive: neck supple, trachea midline. Negative: JVD/HJR Cardiac: Positive: Reg Rate and Rhythm Lungs: Positive: Ventilated Respirations Neuro: Positive: Other (intubated) Abdomen: Positive: Soft Skin: Negative: Rash Musculoskeletal: No Fluid Collection Extremities: Present: lower extr. pulses. Absent: edema - Labs and Meds Lipids 08/20/21 Range/Units 06:08 Triglycerides 433 H (2-149) mg/dL CBC 08/20/21 Range/Units 06:08 WBC 10.2 (4.5-11.0) K/mm3 RBC 2.90 L (3.65-5.03) M/mm3 Hgb 7.9 L (10.1-14.3) gm/dl Hct 23.6 L (30.3-42.9) % Plt Count 405 (140-440) K/mm3 Comprehensive Metabolic Panel 08/20/21 Range/Units 06:08 Sodium 133 L (137-145) mmol/L Potassium 3.8 (3.6-5.0) mmol/L Chloride 93.9 L (98-107) mmol/L Carbon Dioxide 24 (22-30) mmol/L BUN 31 H (7-17) mg/dL Creatinine 3.3 H (0.6-1.2) mg/dL Glucose 148 H (65-100) mg/dL Calcium 9.3 (8.4-10.2) mg/dL - Imaging and Cardiology EKG: report reviewed, image reviewed Echo: report reviewed Cardiac cath: report reviewed - Telemetry EKG Rhythm: Paced - EKG Sinus rhythms and dysrhythmias: sinus rhythm Repolarization changes or abnormalities: Q-T interval prolongation Myocardial infarction: anterior IL (old age or i Pacemaker: atrial pacing w/capture - Allied health notes Allied health notes reviewed: nursing
--- NOTE | 2021-08-20 14:06 | Progress Note ---
Assessment and Plan Assessment and plan: This is 60-year-old female with ESRD on HD, recurrent AICD discharges, V. tach, cardiac arrest, anemia of chronic disease, CAD, systolic HF and HTN admitted for V. tach and severe hypokalemia Neuro: Sedated -Sedated with fentanyl and propofol -RASS goal -1 to -2 -Avoid delirium -Reorientation as needed -SAT/SBT when appropriate -CT head x2 with no acute findings CV: Recurrent V. tach storm, NSTEMI, h/o s/p AICD implantation, systolic heart failure, V. tach, HTN -Cardiology consulted, appreciate recommendations -S/p lidocaine and Cardene drip -Antihypertensive regimen: hydralazine, isosorbide, cozaar, metoprolol, minoxidil, clonidine -s/p Amiodarone drip-> Amio PO -Awaiting transfer to [facility] -Continue Lipitor, Plavix, ASA Respiratory: Acute Hypoxemic Respiratory Failure -CCM consulted, appreciate recommendations -Intubated in the ED on 08/05 with a 6.50 ETT at 21 at the lips, extubated 08/14 with reintubation, self extubation 08/16 with reintubation 7.5 oett @ 24 lips -A.m. vent settings assist-control rate 12, tidal volume 375, PEEP 6, FiO2 30% -See RT notes for titration -no cuff leak noted today -will give FFP today and reassess tomorrow - will likely need neck imaging later this week if no improvement from steroids -A.m. ABG and CXR noted -VAP bundle -SPO2 monitoring GI: NAD -Nutrition consult for tube feeding -24 hours +346 mL -HD removal of 2.5 L 08/19 -PPI -BR: Senokot -BM 08/19 : ESRD on HD, hyponatremia, hypochloremia -Nephrology consulted, appreciate recommendations -HD per nephrology -Avoid nephrotoxic medications -Renally dose medications -Strict intake and output ID: [id number] -Monitor WBC and fever curve -Follow-up blood culture x2 and sputum culture -NGTD Heme: Thrombocytosis, Acute on chronic anemia of chronic disease -S/p 2 unit PRBC -Trend CBC -Transfuse for hemoglobin less than 7 -Epogen per nephrology -Resume DAPT per cards in setting of recent stent -Heparin subq -SCDs to bilateral LE while in bed Endo: Hypoglycemia (resolved) -S/p D10 for hypoglycemia -Avoid hypoglycemia -Accu-Cheks every 4 Dispo: AWAITING TRANSFER TO [facility] since 08/06/2021 Critical care statement The high probability of a clinically significant sudden or life-threatening deterioration of the [cardio-respiratory system] and endocrine system required my full and direct attention, intervention and postoperative management. The aggregate critical care time was [60] minutes. The time is in addition to time spent performing reported procedures but includes the following: [x] 1: Data review and interpretation [x] 2: Patient assessment and monitoring of vital signs [x] 3: Documentation [x] 4: Medication orders and management History Interval history: This is 60-year-old female with ESRD on HD, recurrent AICD discharges, systolic heart failure, V. tach, cardiac arrest, anemia, CAD and HTN who presents to the emergency department from her dialysis center on 08/05 for severe muscle spasms secondary to AICD discharges per patient. She also had questionable seizures in the dialysis center. Patient was started on amiodarone and lidocaine. Patient was intubated for airway protection in the emergency department and work-up also revealed severe hypokalemia. Patient was admitted to the hospital service with consult cardiology, nephrology and CCM. 08/06/2021: Patient is sedated, Transfer to [facility] arranged 08/07: COVID-19 PCR negative. Patient received hemodialysis today. Off Cardene drip. Patient has been OG tube for p.o. BP medications. Thrombocytopenia persists therefore anticoagulation is held. Patient is leukopenia also. We will continue to trend CBC. Persistent hypoglycemia and D10 drip increased to 30 ml/hr. negative Covid test relayed to [facility]. 08/08: 1 unit prbc today, will start TF today. Still awaiting [facility] bed. 08/09: awaiting transfer to [facility]. TF nearly at goal so anticipate stopping dextrose IVF soon. Midline to be placed 08/10/2021: Received HD today. BP remains elevated therefore started on cardene gtt. Cardiology aware. No beds available yet. 08/11/2021: Cardene gtt infusing, CT head ordered as per nurse patient is not really responding (withdraw/ grimace to pain when off sedation/PERRL/intact cough/gag on PE). 08/12: ANGELINE overnight. Remains on the vent and sedated. On Amio gtt, A-pacing on the monitor, still hypertensive on cardene gtt, home antihypertensive was restarted. Plan for HD this am, hypernatremia too be corrected per Nephro. 08/13: Plan for SAT and SBT this am for possible extubation. Patient remains h ypertensive on cardene gtt, clonidine added. 08/14: Patient s/p reintubation by anesthesia. Awake and alert following commands, not on any sedation. Remains hypertensive on amio and cardene gtt. D/w cardio plan to switch to PO Amio and to adjust antihypertensive therapy, hopefully can wean off cardene gtt. Plan to possible transfer patient to [facility] as a way of getting patient into the [facility] system for the needed ablation. Case management to arrange 08/15: ANGELINE overnight. Patient remains stable on the vent. Still with uncontrolled hypertension despite meds increased yesterday. Patient remains on cardene gt. Cardio added minoxidil, plan is still to wean off cardene gtt. Plan for HD today 08/16: Self-extubated and was reintubated overnight due to stridor. Now on low dose sedation, following commands. D/w CCM plan to do a cuff leak today and possible start patinet on IV steroids. Since this is X2 failed extubation patient might need to be Trached. Per Case management patient was denied for [facility], no HD beds available. Patient remains on [facility] transfer list for possible inpatient transfer. 08/17: On the vent and om propofol gtt, RASS 0. Hypotensive overnight, will defer to Cardio for possible BP meds adjustment. Pending transfer to [facility]. 08/18: ANGELINE overnight. While awake on propofol gtt, following commands. Tolerated PST yesterday [id number]. Daily PST as tolerated. Pending transfer to [facility] 08/19: no cuff leak noted, may need neck imaging later this week. HD today with removal of 2.5 L. Midline ordered. Madelaine positional 08/20: Blood pressure medications adjusted due to hypotension, leak test not completed yet. No acute events reported overnight. Precedex drip initiated due to elevated triglycerides and propofol discontinued. Hospitalist Physical - Constitutional Vitals: Temp Pulse Resp BP Pulse Ox 99.4 F 70 12 158/85 100 08/20/21 03:28 08/20/21 13:36 08/20/21 13:01 08/20/21 13:36 08/20/21 13:01 General appearance: Present: no acute distress, other (Intubated and on sedation, RASS 0 ) - EENT Eyes: Present: PERRL, EOM intact ENT: clear oral mucosa, dentition normal - Neck Neck: Present: normal ROM - Respiratory Respiratory effort: normal Respiratory: bilateral: diminished - Cardiovascular Rhythm: regular Heart Sounds: Present: S1 & S2. Absent: systolic murmur, diastolic murmur - Extremities Extremities: no ischemia, pulses intact, pulses symmetrical, normal temperature, normal color Extremity abnormal: edema Peripheral Pulses: within normal limits - Abdominal General gastrointestinal: soft, tender, normal bowel sounds - Integumentary Integumentary: Present: warm, dry - Psychiatric Psychiatric: cooperative - Neurologic Neurologic: no focal deficits - Allied Health Allied health notes reviewed: nursing, RT, social work HEART Score - HEART Score Age: 45-65 Risk factors: > 3 risk factors or hx of atherosclerotic disease Troponin: Troponin T 0.183 ng/mL (0.00-0.029) H* D 08/05/21 18:56 Troponin: 1-3x normal limit - Critical Actions Critical Actions: 4-6 pts:12-16.6% risk of adverse cardiac event. Should be admitted Results - Labs CBC & Chem 7: 08/20/21 06:08 08/20/21 06:08 Labs: Laboratory Last Values WBC 10.2 K/mm3 (4.5-11.0) 08/20/21 06:08 RBC 2.90 M/mm3 (3.65-5.03) L 08/20/21 06:08 Hgb 7.9 gm/dl (10.1-14.3) L 08/20/21 06:08 Hct 23.6 % (30.3-42.9) L 08/20/21 06:08 MCV 82 fl (79-97) 08/20/21 06:08 MCH 27 pg (28-32) L 08/20/21 06:08 MCHC 34 % (30-34) 08/20/21 06:08 RDW 18.6 % (13.2-15.2) H 08/20/21 06:08 Plt Count 405 K/mm3 (140-440) 08/20/21 06:08 Lymph % (Auto) [place] [employer] 12/29/21 04:00 Carson % (Auto) [employer] [employer] 08/11/21 04:00 Eos % (Auto) 2.2 % (0.0-4.3) 08/06/21 16:35 Baso % (Auto) [place] [employer] 08/07/21 04:00 Lymph # (Auto) 0.8 K/mm3 (1.2-5.4) L 08/06/21 16:35 Carson # (Auto) 0.7 K/mm3 (0.0-0.8) 08/06/21 16:35 Eos # (Auto) 0.1 K/mm3 (0.0-0.4) 08/06/21 16:35 Baso # (Auto) 0.1 K/mm3 (0.0-0.1) 08/06/21 16:35 Add Manual Diff Complete 08/11/21 04:00 Total Counted 100 08/11/21 04:00 Seg Neutrophils % [place] [employer] 08/07/21 04:00 Seg Neuts % (Manual) 76.0 % (40.0-70.0) H 08/11/21 04:00 Band Neutrophils % 2.0 % 08/11/21 04:00 Lymphocytes % (Manual) 8.0 % (13.4-35.0) L 08/11/21 04:00 Reactive Lymphs % (Man) 5.0 % 08/07/21 04:00 Monocytes % (Manual) 13.0 % (0.0-7.3) H 08/11/21 04:00 Eosinophils % (Manual) 1.0 % (0.0-4.3) 08/10/21 04:00 Basophils % (Manual) 4.0 % (0.0-1.8) H 08/07/21 04:00 Metamyelocytes % 1.0 % 08/11/21 04:00 Nucleated RBC % Not Reportable 08/11/21 04:00 Seg Neutrophils # 2.6 K/mm3 (1.8-7.7) 08/06/21 16:35 Seg Neutrophils # Man 5.2 K/mm3 (1.8-7.7) 08/11/21 04:00 Band Neutrophils # 0.1 K/mm3 08/11/21 04:00 Lymphocytes # (Manual) 0.6 K/mm3 (1.2-5.4) L 08/11/21 04:00 Abs React Lymphs (Man) 0.0 K/mm3 08/11/21 04:00 Monocytes # (Manual) 0.9 K/mm3 (0.0-0.8) H 08/11/21 04:00 Eosinophils # (Manual) 0.0 K/mm3 (0.0-0.4) 08/11/21 04:00 Basophils # (Manual) 0.0 K/mm3 (0.0-0.1) 08/11/21 04:00 Metamyelocytes # 0.1 K/mm3 08/11/21 04:00 Myelocytes # 0.0 K/mm3 08/11/21 04:00 Promyelocytes # 0.0 K/mm3 08/11/21 04:00 Blast Cells # 0.0 K/mm3 08/11/21 04:00 WBC Morphology Not Reportable 08/11/21 04:00 WBC Morphology TNR 08/11/21 04:00 Hypersegmented Neuts Not Reportable 08/11/21 04:00 Hyposegmented Neuts Not Reportable 08/11/21 04:00 Hypogranular Neuts Not Reportable 08/11/21 04:00 Smudge Cells Not Reportable 08/11/21 04:00 Toxic Granulation Not Reportable 08/11/21 04:00 Toxic Vacuolation Not Reportable 08/11/21 04:00 Dohle Bodies Not Reportable 08/11/21 04:00 Pelger-Huet Anomaly Not Reportable 08/11/21 04:00 Claudio Rods Not Reportable 08/11/21 04:00 Platelet Estimate Consistent w auto 08/11/21 04:00 Clumped Platelets Not Reportable 08/11/21 04:00 Plt Clumps, EDTA Not Reportable 08/11/21 04:00 Large Platelets Not Reportable 08/11/21 04:00 Giant Platelets Not Reportable 08/11/21 04:00 Platelet Satelliting Not Reportable 08/11/21 04:00 Plt Morphology Comment Not Reportable 08/11/21 04:00 RBC Morphology Not Reportable 08/11/21 04:00 Dimorphic RBCs Not Reportable 08/11/21 04:00 Polychromasia Not Reportable 08/11/21 04:00 Hypochromasia Few 08/11/21 04:00 Poikilocytosis Not Reportable 08/11/21 04:00 Anisocytosis Not Reportable 08/11/21 04:00 Microcytosis Not Reportable 08/11/21 04:00 Macrocytosis Not Reportable 08/11/21 04:00 Spherocytes Not Reportable 08/11/21 04:00 Pappenheimer Bodies Not Reportable 08/11/21 04:00 Sickle Cells Not Reportable 08/11/21 04:00 Target Cells Few 08/11/21 04:00 Tear Drop Cells Not Reportable 08/11/21 04:00 Ovalocytes Not Reportable 08/11/21 04:00 Helmet Cells Not Reportable 08/11/21 04:00 [place] Bodies Not Reportable 08/11/21 04:00 [place] Rings Not Reportable 08/11/21 04:00 Case Cells Not Reportable 08/11/21 04:00 Bite Cells Not Reportable 08/11/21 04:00 Crenated Cell Not Reportable 08/11/21 04:00 Elliptocytes Not Reportable 08/11/21 04:00 Acanthocytes (Spur) Not Reportable 08/11/21 04:00 Rouleaux Not Reportable 08/11/21 04:00 Hemoglobin C Crystals Not Reportable 08/11/21 04:00 Schistocytes Not Reportable 08/11/21 04:00 Malaria parasites Not Reportable 08/11/21 04:00 Aleks Bodies Not Reportable 08/11/21 04:00 Hem Pathologist Commnt No 08/11/21 04:00 PT 14.2 Sec. (12.2-14.9) 08/06/21 16:35 INR 0.99 (0.87-1.13) 08/06/21 16:35 APTT 37.1 Sec. (24.2-36.6) H 08/06/21 07:26 ABG pH 7.508 (7.320-7.450) H 08/20/21 04:25 POC ABG pCO2 35.1 mmHg (32.0-48.0) 08/20/21 04:25 ABG pCO2 41.2 mm Hg 08/09/21 04:30 POC ABG pO2 139.8 mmHg (83-108) H 08/20/21 04:25 ABG pO2 91.5 mm Hg (80.0-90.0) H 08/09/21 04:30 POC ABG HCO3 27.3 08/20/21 04:25 ABG HCO3 26.6 mmol/L (20.0-26.0) H 08/09/21 04:30 ABG O2 Saturation 99.1 (0-100) 08/20/21 04:25 ABG O2 Content 12.3 (0.0-44) 08/09/21 04:30 POC ABG Base Excess 4.0 08/20/21 04:25 ABG Base Excess 2.0 mmol/L (-2.0-3.0) 08/09/21 04:30 ABG Hemoglobin 8.2 (12.0-17.5) L 08/20/21 04:25 ABG Oxyhemoglobin 98.3 (94-98) H 08/20/21 04:25 ABG Carboxyhemoglobin 1.4 % (0.0-5.0) 08/09/21 04:30 ABG Methemoglobin 0.3 (0.0-1.5) 08/20/21 04:25 ABG Sodium 129.8 mmol/L (136.0-145.0) L 08/20/21 04:25 ABG Potassium 3.7 mmol/L (3.40-4.50) 08/20/21 04:25 ABG Chloride 96.0 mmol/L (98-107) L 08/20/21 04:25 ABG Glucose 162 mg/dL (65-95) H 08/20/21 04:25 Oxyhemoglobin 95.4 % (95.0-99.0) 08/09/21 04:30 Carboxyhemoglobin 0.5 (0.5-1.5) 08/20/21 04:25 FiO2 25 % 08/09/21 04:30 FiO2 % 30.0 08/20/21 04:25 Sodium 133 mmol/L (137-145) L 08/20/21 06:08 Potassium 3.8 mmol/L (3.6-5.0) 08/20/21 06:08 Chloride 93.9 mmol/L (98-107) L 08/20/21 06:08 Carbon Dioxide 24 mmol/L (22-30) 08/20/21 06:08 Anion Gap 19 mmol/L 08/20/21 06:08 BUN 31 mg/dL (7-17) H 08/20/21 06:08 Creatinine 3.3 mg/dL (0.6-1.2) H 08/20/21 06:08 Estimated GFR 17 ml/min 08/20/21 06:08 BUN/Creatinine Ratio 9 % 08/20/21 06:08 Glucose 148 mg/dL (65-100) H 08/20/21 06:08 POC Glucose 96 mg/dL (70-105) 08/20/21 12:06 Calcium 9.3 mg/dL (8.4-10.2) 08/20/21 06:08 Phosphorus 3.10 mg/dL (2.5-4.5) 08/20/21 06:08 Magnesium 1.90 mg/dL (1.7-2.3) 08/20/21 06:08 Total Bilirubin 0.70 mg/dL (0.1-1.2) 08/06/21 16:35 AST 18 units/L (5-40) 08/06/21 16:35 ALT 7 units/L (7-56) 08/06/21 16:35 Alkaline Phosphatase 102 units/L (35-129) 08/06/21 16:35 Troponin T 0.183 ng/mL (0.00-0.029) H* D 08/05/21 18:56 Total Protein 6.2 g/dL (6.3-8.2) L 08/06/21 16:35 Albumin 3.2 g/dL (3.9-5) L 08/06/21 16:35 Albumin/Globulin Ratio 1.1 % 08/06/21 16:35 Triglycerides 433 mg/dL (2-149) H 08/20/21 06:08 Cholesterol 170 mg/dL (50-199) 08/05/21 15:55 LDL Cholesterol Direct 106 mg/dL (50-130) 08/05/21 15:55 HDL Cholesterol 32 mg/dL (40-59) L 08/05/21 15:55 Cholesterol/HDL Ratio 5.31 % 08/05/21 15:55 TSH 7.070 mlU/mL (0.270-4.200) H 08/07/21 13:30 Arterial Blood Glucose 162 mg/dL (65-95) H 08/20/21 04:25 Arterial Blood Ionized Calcium 4.8 mg/dL (4.6-5.3) 08/15/21 05:22 Coronavirus (PCR) Negative (Negative) 08/07/21 Unknown Hepatitis A IgM Ab Non-reactive (NonReactive) 08/08/21 04:26 Hep Bs Antigen Nonreactive (Negative) 08/08/21 04:26 Hep B Core IgM Ab Non-reactive (NonReactive) 08/08/21 04:26 Hepatitis C Antibody Non-reactive (NonReactive) 08/08/21 04:26 Blood Type O POSITIVE 08/06/21 05:30 Antibody Screen Negative 08/06/21 05:30 Crossmatch See Detail 08/06/21 05:30 Active Medications - Current Medications Current Medications: Generic Name Dose Route Start Last Admin Trade Name Freq PRN Reason Stop Dose Admin Acetaminophen 650 mg 08/06/21 16:30 08/06/21 16:30 Acetaminophen 650 Mg Rect Supp MO 650 mg Q6H PRN Administration Pain, Mild (1-3) Albuterol 2.5 mg 08/05/21 20:59 Albuterol 2.5 Mg/3 Ml Nebu IH Q4HRT PRN Shortness Of Breath Amiodarone HCl 400 mg 08/14/21 11:00 08/20/21 09:29 Amiodarone 200 Mg Tab PO 400 mg BID JODI Administration Lipase/Protease/Amylase 1 each 08/07/21 09:47 Lipase 10,500/Protease 25,000/Amylase 43,750 (Units) Dr Thomas FEEDTUBE PRN PRN For Clogged Feeding Tube Aspirin 81 mg 08/07/21 10:00 08/20/21 09:28 Aspirin 81 Mg Tab Chew PO 81 mg QDAY JODI Administration Atorvastatin Calcium 80 mg 08/05/21 22:00 08/19/21 22:20 Atorvastatin 40 Mg Tab PO 80 mg QHS JODI Administration Clonidine HCl 0.2 mg 08/20/21 10:00 08/20/21 09:28 Clonidine 0.2 Mg Tab PO Not Given Q12HR JODI Clopidogrel Bisulfate 75 mg 08/10/21 10:00 08/20/21 09:29 Clopidogrel 75 Mg Tab PO 75 mg QDAY JODI Administration Dextrose 50 ml 08/17/21 18:00 Dextrose 50% In Water (25gm) 50 Ml Syringe IV Q30MIN PRN Hypoglycemia Protocol Famotidine 10 mg 08/09/21 22:00 08/20/21 09:29 Famotidine 10 Mg Tab PO 10 mg BID JODI Administration Fentanyl 50 mcg 08/16/21 11:48 08/19/21 15:48 Fentanyl 100 Mcg/2 Ml Inj IV 50 mcg Q2H PRN Administration Pain, Moderate (4-6) Heparin Sodium (Porcine) 5,000 unit 08/11/21 10:00 08/20/21 09:28 Heparin 5,000 Unit/1 Ml Vial SUB-Q 5,000 unit Q12HR JODI Administration Hydralazine HCl 10 mg 08/06/21 04:21 08/15/21 07:53 Hydralazine 20 Mg/1 Ml Inj IV 10 mg Q6HR PRN Administration Hypertension Hydralazine HCl 100 mg 08/14/21 10:00 08/20/21 13:06 Hydralazine 100 Mg Tab PO Not Given Q8HR JODI Hydrophilic Ointment 1 applic 08/05/21 17:25 Lip Therapy Vaseline TP Q2HR PRN Dry Lips Sodium Chloride 100 mls @ 999 mls/hr 08/14/21 17:06 Nacl 0.9% IV GLENDY PRN Hypotension Dexmedetomidine HCl 400 mcg/ 104 mls @ 3.341 mls/hr 08/20/21 10:00 08/20/21 13:32 Sodium Chloride IV 0.8 mcg/kg/hr TITRATE JODI 13.364 mls/hr Titration Protocol 0.2 MCG/KG/HR Insulin Human Regular 0 units 08/17/21 18:00 08/20/21 12:14 Insulin Regular, Human 100 Units/1 Ml SUB-Q Not Given Q6H [facility] Protocol Isosorbide Dinitrate 20 mg 08/11/21 14:00 08/20/21 13:06 Isosorbide Dinitrate 20 Mg Tab PO Not Given Q8HR [facility] Losartan Potassium 100 mg 08/12/21 10:00 08/20/21 09:29 Losartan 25 Mg Tab PO Not Given DAILY [facility] Methylprednisolone Sodium Succinate 40 mg 08/16/21 13:00 08/20/21 12:15 Methylprednisolone Sod Succinate 40 Mg/1 Ml Inj IV 40 mg Q6HR JODI Administration Metoclopramide HCl 5 mg 08/05/21 21:03 Metoclopramide 10 Mg/2 Ml Inj IV Q6H PRN Nausea And Vomiting Metoprolol Tartrate 100 mg 08/12/21 12:00 08/20/21 13:36 Metoprolol Tartrate 50 Mg Tab PO 100 mg BID JODI Administration Multi-Ingred Cream/Lotion/Oil/Oint 1 applic 08/05/21 17:25 Mineral Oil/Petrolatum, White Ophth Oint 3.5 Gm OU Q4HR PRN Dry Eye(s) Ondansetron HCl 4 mg 08/05/21 21:03 Ondansetron 4 Mg/2 Ml Inj IV Q8H PRN Nausea And Vomiting Oxycodone/Acetaminophen 1 tab 08/05/21 21:03 Oxycodone /Acetaminophen 5-325mg Tab PO Q6H PRN Pain, Moderate (4-6) Senna 8.8 mg 08/07/21 13:00 08/20/21 09:30 Sennosides Oral Liqd 8.8 Mg/5 Ml Oral Liqd FEEDTUBE Not Given BID JODI Simple Syrup 15 ml 08/07/21 09:47 Simple Syrup 15 Ml FEEDTUBE PRN PRN Hypoglycemia Simple Syrup 30 ml 08/07/21 09:47 Simple Syrup 15 Ml FEEDTUBE PRN PRN Hypoglycemia Sodium Bicarbonate 325 mg 08/07/21 09:47 Sodium Bicarbonate 325 Mg Tab FEEDTUBE PRN PRN For Clogged Feeding Tube Sodium Chloride 10 ml 08/05/21 22:00 08/20/21 09:30 Sodium Chloride 0.9% 10 Ml Flush Syringe IV 10 ml BID JODI Administration Sodium Chloride 10 ml 08/05/21 21:03 Sodium Chloride 0.9% 10 Ml Flush Syringe IV PRN PRN LINE FLUSH Nutrition/Malnutrition Assess - Dietary Evaluation Nutrition/Malnutrition Findings: Nutrition Notes Start: 08/07/21 09:12 Freq: Status: Active Protocol: Document 08/19/21 14:47 KALA (Rec: 08/19/21 15:06 KALA [id number]) Nutrition Notes Initial or Follow up Brief Note Current Diet TF-Nepro w/CARBSTEADY @ 32 ml/ hr (since L 08/16). Height 5 ft 2 in Weight 64.25 kg [place] Body Weight (kg) 50.00 BMI 25.9 Weight change and time frame No body weight change reported . Weight Status Overweight Subjective/Other Information RD consult for routine F/U on TF continuation assessment. Pt reintubated and TF continued at the time of conversation with RN. Still waiting for placement at [facility]. Percent of energy/protein needs met: Prescribed Nepro w/CARBSTEADY @ 32 ml/hr will provide for energy/protein needs (1,403 Kcal/63 g) 100% Kcal; 82% AA, during LOS. #1 Nutrition Diagnosis Inadequate oral intake Diagnosis Progress(for reassessment Continues documentation) Nutrition Intervention Nutrition Support: Continue Nepro w/CARBSTEADY @ 32 ml/hr. Flush: 50 ml water Q 4 hr until hyponatremia resolves, then 150 ml Q 4 hr. % RDI: 100% Kcal; 82% AA. Goal #1 Provide at least 75% of energy /protein needs through Enteral Feeding during LOS. Follow-Up By: 08/26/21 Additional Comments Continue monitoring TF tolerance, and BM.
[2021-08-20] MEDS: fentaNYL 100 MCG/2 ML INJ IV PRN (17:10)
[2021-08-21] MEDS: methylPREDNISolone Sod Succinate 40 MG/1 ML INJ IV SCH ×5 (00:36→23:37)
[2021-08-21] MEDS: INSULIN REGULAR, HUMAN 100 UNITS/1 ML SUB-Q SCH ×4 (00:37→17:59)
[2021-08-21] MEDS: fentaNYL 100 MCG/2 ML INJ IV PRN ×3 (01:33→23:38)
[2021-08-21] MEDS: hydrALAZINE 100 MG TAB PO SCH (06:47)
[2021-08-21] MEDS: ISOSORBIDE DINITRATE 20 MG TAB PO SCH ×3 (06:47→22:42)
[2021-08-21 08:33] LABS: Hematocrit 23.5 % (30.3-42.9); Hemoglobin 7.7 gm/dl (10.1-14.3); Mean Corpuscular HGB Conc 33 % (30-34); Mean Corpuscular Volume 81 fl (79-97); Platelet Count 390 K/mm3 (140-440); Red Cell Distribution Width 18.9 % (13.2-15.2)
[2021-08-21 08:54] LABS: Calcium 9.1 mg/dL (8.4-10.2)
--- NOTE | 2021-08-21 09:58 | Progress Note ---
Assessment and Plan - Patient Problems (1) End stage renal disease on dialysis Current Visit: Yes Status: Chronic Plan to address problem: Cont hemodialysis on a Thursday, Thursday and Thursday schedule. (2) Hypokalemia Current Visit: Yes Status: Acute Plan to address problem: Potassium is back to normal. Follow-up (3) Anemia in end-stage renal disease Current Visit: Yes Status: Acute Plan to address problem: Give erythropoietin on dialysis and follow-up hemoglobin level (4) VT (ventricular tachycardia) Current Visit: Yes Status: Acute Plan to address problem: Continue management by child and family counselor. Awaiting transfer to [place] for VT ablation Subjective Date of service: 08/21/21 Principal diagnosis: Recurrent VT Interval history: Pt seen and examined in the ICU, intubated, on vent support, tolerating HD well without acute issues Objective - Vital Signs Vital signs: Vital Signs - 12hr 08/20/21 08/20/21 08/20/21 22:01 22:11 22:21 Temperature Pulse Rate 70 70 70 Pulse Rate [ From Monitor] Respiratory 11 L 11 L 12 Rate Blood Pressure 184/85 184/85 184/85 O2 Sat by Pulse 100 100 100 Oximetry O2 Sat by Pulse Oximetry [ Anterior Bilateral] O2 Sat by Pulse Oximetry [ Bases] O2 Sat by Pulse Oximetry [ Bilateral Bases ] O2 Sat by Pulse Oximetry [ Bilateral Throughout] 08/20/21 08/20/21 08/20/21 22:31 22:41 22:51 Temperature Pulse Rate 70 70 70 Pulse Rate [ From Monitor] Respiratory 12 11 L 12 Rate Blood Pressure 184/85 184/85 184/85 O2 Sat by Pulse 100 100 100 Oximetry O2 Sat by Pulse Oximetry [ Anterior Bilateral] O2 Sat by Pulse Oximetry [ Bases] O2 Sat by Pulse Oximetry [ Bilateral Bases ] O2 Sat by Pulse Oximetry [ Bilateral Throughout] 08/20/21 08/20/21 08/20/21 22:56 22:57 22:58 Temperature Pulse Rate 70 70 70 Pulse Rate [ From Monitor] Respiratory Rate Blood Pressure 169/87 167/86 167/80 O2 Sat by Pulse Oximetry O2 Sat by Pulse Oximetry [ Anterior Bilateral] O2 Sat by Pulse Oximetry [ Bases] O2 Sat by Pulse Oximetry [ Bilateral Bases ] O2 Sat by Pulse Oximetry [ Bilateral Throughout] 08/20/21 08/20/21 08/20/21 23:01 23:11 23:21 Temperature Pulse Rate 70 70 70 Pulse Rate [ From Monitor] Respiratory 12 10 L 12 Rate Blood Pressure 184/85 184/85 184/85 O2 Sat by Pulse 100 100 100 Oximetry O2 Sat by Pulse Oximetry [ Anterior Bilateral] O2 Sat by Pulse Oximetry [ Bases] O2 Sat by Pulse Oximetry [ Bilateral Bases ] O2 Sat by Pulse Oximetry [ Bilateral Throughout] 08/20/21 08/20/21 08/20/21 23:31 23:41 23:51 Temperature 97.6 F Pulse Rate 70 70 70 Pulse Rate [ From Monitor] Respiratory 12 10 L 12 Rate Blood Pressure 184/85 184/85 184/85 O2 Sat by Pulse 100 100 100 Oximetry O2 Sat by Pulse Oximetry [ Anterior Bilateral] O2 Sat by Pulse Oximetry [ Bases] O2 Sat by Pulse Oximetry [ Bilateral Bases ] O2 Sat by Pulse Oximetry [ Bilateral Throughout] 08/21/21 08/21/21 08/21/21 00:00 00:01 00:06 Temperature 97.6 F 96.6 F L Pulse Rate 70 70 70 Pulse Rate [ 70 From Monitor] Respiratory 12 12 Rate Blood Pressure 184/85 127/67 O2 Sat by Pulse 100 100 100 Oximetry O2 Sat by Pulse Oximetry [ Anterior Bilateral] O2 Sat by Pulse Oximetry [ Bases] O2 Sat by Pulse Oximetry [ Bilateral Bases ] O2 Sat by Pulse Oximetry [ Bilateral Throughout] 08/21/21 08/21/21 08/21/21 00:11 00:21 00:31 Temperature Pulse Rate 70 70 70 Pulse Rate [ From Monitor] Respiratory 9 L 11 L 13 Rate Blood Pressure 184/85 184/85 184/85 O2 Sat by Pulse 100 100 100 Oximetry O2 Sat by Pulse Oximetry [ Anterior Bilateral] O2 Sat by Pulse Oximetry [ Bases] O2 Sat by Pulse Oximetry [ Bilateral Bases ] O2 Sat by Pulse Oximetry [ Bilateral Throughout] 08/21/21 08/21/21 08/21/21 00:41 00:51 01:01 Temperature Pulse Rate 70 70 70 Pulse Rate [ From Monitor] Respiratory 16 13 11 L Rate Blood Pressure 184/85 184/85 184/85 O2 Sat by Pulse 100 100 100 Oximetry O2 Sat by Pulse Oximetry [ Anterior Bilateral] O2 Sat by Pulse Oximetry [ Bases] O2 Sat by Pulse Oximetry [ Bilateral Bases ] O2 Sat by Pulse Oximetry [ Bilateral Throughout] 08/21/21 08/21/21 08/21/21 01:11 01:15 01:16 Temperature 97.3 F L Pulse Rate 70 70 Pulse Rate [ From Monitor] Respiratory 10 L 8 L Rate Blood Pressure 184/85 184/85 O2 Sat by Pulse 100 100 Oximetry O2 Sat by Pulse Oximetry [ Anterior Bilateral] O2 Sat by Pulse Oximetry [ Bases] O2 Sat by Pulse Oximetry [ Bilateral Bases ] O2 Sat by Pulse Oximetry [ Bilateral Throughout] 08/21/21 08/21/21 08/21/21 01:21 01:31 01:36 Temperature 97.8 F Pulse Rate 70 70 Pulse Rate [ From Monitor] Respiratory 12 10 L Rate Blood Pressure 184/85 184/85 O2 Sat by Pulse 100 100 Oximetry O2 Sat by Pulse Oximetry [ Anterior Bilateral] O2 Sat by Pulse Oximetry [ Bases] O2 Sat by Pulse Oximetry [ Bilateral Bases ] O2 Sat by Pulse Oximetry [ Bilateral Throughout] 08/21/21 08/21/21 08/21/21 01:41 01:51 02:01 Temperature Pulse Rate 70 70 70 Pulse Rate [ From Monitor] Respiratory 12 12 12 Rate Blood Pressure 184/85 184/85 184/85 O2 Sat by Pulse 98 99 99 Oximetry O2 Sat by Pulse Oximetry [ Anterior Bilateral] O2 Sat by Pulse Oximetry [ Bases] O2 Sat by Pulse Oximetry [ Bilateral Bases ] O2 Sat by Pulse Oximetry [ Bilateral Throughout] 08/21/21 08/21/21 08/21/21 02:06 02:11 02:21 Temperature 97.8 F Pulse Rate 70 70 Pulse Rate [ From Monitor] Respiratory 12 12 Rate Blood Pressure 184/85 184/85 O2 Sat by Pulse 99 99 Oximetry O2 Sat by Pulse Oximetry [ Anterior Bilateral] O2 Sat by Pulse Oximetry [ Bases] O2 Sat by Pulse Oximetry [ Bilateral Bases ] O2 Sat by Pulse Oximetry [ Bilateral Throughout] 08/21/21 08/21/21 08/21/21 02:31 02:33 02:41 Temperature 97.6 F Pulse Rate 70 70 Pulse Rate [ From Monitor] Respiratory 15 12 Rate Blood Pressure 184/85 184/85 O2 Sat by Pulse 99 100 Oximetry O2 Sat by Pulse Oximetry [ Anterior Bilateral] O2 Sat by Pulse Oximetry [ Bases] O2 Sat by Pulse Oximetry [ Bilateral Bases ] O2 Sat by Pulse Oximetry [ Bilateral Throughout] 0108/21/21 08/21/21 02:51 02:53 03:01 Temperature 97.6 F Pulse Rate 70 70 Pulse Rate [ From Monitor] Respiratory 13 12 Rate Blood Pressure 184/85 184/85 O2 Sat by Pulse 100 100 Oximetry O2 Sat by Pulse Oximetry [ Anterior Bilateral] O2 Sat by Pulse Oximetry [ Bases] O2 Sat by Pulse Oximetry [ Bilateral Bases ] O2 Sat by Pulse Oximetry [ Bilateral Throughout] 08/21/21 08/21/21 08/21/21 03:08 03:15 03:31 Temperature 98.1 F Pulse Rate 70 70 Pulse Rate [ From Monitor] Respiratory 10 L 13 Rate Blood Pressure 184/85 184/85 O2 Sat by Pulse 100 100 Oximetry O2 Sat by Pulse Oximetry [ Anterior Bilateral] O2 Sat by Pulse Oximetry [ Bases] O2 Sat by Pulse Oximetry [ Bilateral Bases ] O2 Sat by Pulse Oximetry [ Bilateral Throughout] 08/21/21 08/21/21 08/21/21 03:38 03:45 04:00 Temperature 98.1 F 98.5 F Pulse Rate 70 70 Pulse Rate [ 70 From Monitor] Respiratory 11 L 12 Rate Blood Pressure 184/85 O2 Sat by Pulse 100 100 Oximetry O2 Sat by Pulse Oximetry [ Anterior Bilateral] O2 Sat by Pulse Oximetry [ Bases] O2 Sat by Pulse Oximetry [ Bilateral Bases ] O2 Sat by Pulse Oximetry [ Bilateral Throughout] 08/21/21 08/21/21 08/21/21 04:01 04:08 04:15 Temperature 97.9 F Pulse Rate 70 70 Pulse Rate [ From Monitor] Respiratory 12 12 Rate Blood Pressure 184/85 184/85 O2 Sat by Pulse 100 100 Oximetry O2 Sat by Pulse Oximetry [ Anterior Bilateral] O2 Sat by Pulse Oximetry [ Bases] O2 Sat by Pulse Oximetry [ Bilateral Bases ] O2 Sat by Pulse Oximetry [ Bilateral Throughout] 08/21/21 08/21/21 08/21/21 04:31 04:45 05:01 Temperature Pulse Rate 70 70 70 Pulse Rate [ From Monitor] Respiratory 12 13 12 Rate Blood Pressure 184/85 184/85 184/85 O2 Sat by Pulse 100 100 100 Oximetry O2 Sat by Pulse Oximetry [ Anterior Bilateral] O2 Sat by Pulse Oximetry [ Bases] O2 Sat by Pulse Oximetry [ Bilateral Bases ] O2 Sat by Pulse Oximetry [ Bilateral Throughout] 08/21/21 08/21/21 08/21/21 05:15 05:31 05:45 Temperature Pulse Rate 70 70 70 Pulse Rate [ From Monitor] Respiratory 15 14 12 Rate Blood Pressure 184/85 184/85 184/85 O2 Sat by Pulse 100 100 100 Oximetry O2 Sat by Pulse Oximetry [ Anterior Bilateral] O2 Sat by Pulse Oximetry [ Bases] O2 Sat by Pulse Oximetry [ Bilateral Bases ] O2 Sat by Pulse Oximetry [ Bilateral Throughout] 08/21/21 08/21/21 08/21/21 06:01 06:15 06:31 Temperature Pulse Rate 70 70 70 Pulse Rate [ From Monitor] Respiratory 12 13 12 Rate Blood Pressure 184/85 184/85 171/80 O2 Sat by Pulse 100 100 100 Oximetry O2 Sat by Pulse Oximetry [ Anterior Bilateral] O2 Sat by Pulse Oximetry [ Bases] O2 Sat by Pulse Oximetry [ Bilateral Bases ] O2 Sat by Pulse Oximetry [ Bilateral Throughout] 08/21/21 08/21/21 08/21/21 06:45 06:47 07:01 Temperature Pulse Rate 70 70 70 Pulse Rate [ From Monitor] Respiratory 10 L 9 L Rate Blood Pressure 171/80 146/93 171/80 O2 Sat by Pulse 100 100 Oximetry O2 Sat by Pulse Oximetry [ Anterior Bilateral] O2 Sat by Pulse Oximetry [ Bases] O2 Sat by Pulse Oximetry [ Bilateral Bases ] O2 Sat by Pulse Oximetry [ Bilateral Throughout] 08/21/21 08/21/21 08/21/21 07:11 07:21 07:30 Temperature 97.8 F Pulse Rate 70 70 70 Pulse Rate [ From Monitor] Respiratory 12 11 L 12 Rate Blood Pressure 87/53 87/53 108/53 O2 Sat by Pulse 100 99 Oximetry O2 Sat by Pulse 100 Oximetry [ Anterior Bilateral] O2 Sat by Pulse 100 Oximetry [ Bases] O2 Sat by Pulse 100 Oximetry [ Bilateral Bases ] O2 Sat by Pulse 100 Oximetry [ Bilateral Throughout] 08/21/21 08/21/21 08/21/21 07:31 07:42 07:43 Temperature 98.2 F 98.1 F Pulse Rate 70 Pulse Rate [ From Monitor] Respiratory 11 L Rate Blood Pressure 108/53 O2 Sat by Pulse 99 Oximetry O2 Sat by Pulse Oximetry [ Anterior Bilateral] O2 Sat by Pulse Oximetry [ Bases] O2 Sat by Pulse Oximetry [ Bilateral Bases ] O2 Sat by Pulse Oximetry [ Bilateral Throughout] 08/21/21 08/21/21 08/21/21 07:45 08:00 08:01 Temperature 98 F Pulse Rate 70 70 70 Pulse Rate [ 70 From Monitor] Respiratory 14 12 14 Rate Blood Pressure 108/53 101/44 101/44 O2 Sat by Pulse 100 100 99 Oximetry O2 Sat by Pulse Oximetry [ Anterior Bilateral] O2 Sat by Pulse Oximetry [ Bases] O2 Sat by Pulse Oximetry [ Bilateral Bases ] O2 Sat by Pulse Oximetry [ Bilateral Throughout] 08/21/21 08/21/21 08/21/21 08:15 08:24 08:30 Temperature Pulse Rate 70 70 70 Pulse Rate [ From Monitor] Respiratory 12 Rate Blood Pressure 155/61 155/57 O2 Sat by Pulse 98 100 Oximetry O2 Sat by Pulse Oximetry [ Anterior Bilateral] O2 Sat by Pulse Oximetry [ Bases] O2 Sat by Pulse Oximetry [ Bilateral Bases ] O2 Sat by Pulse Oximetry [ Bilateral Throughout] 08/21/21 08/21/21 08/21/21 08:31 08:45 09:00 Temperature Pulse Rate 70 70 70 Pulse Rate [ From Monitor] Respiratory 13 Rate Blood Pressure 155/61 111/47 111/45 O2 Sat by Pulse 100 Oximetry O2 Sat by Pulse Oximetry [ Anterior Bilateral] O2 Sat by Pulse Oximetry [ Bases] O2 Sat by Pulse Oximetry [ Bilateral Bases ] O2 Sat by Pulse Oximetry [ Bilateral Throughout] 08/21/21 08/21/21 09:15 09:30 Temperature Pulse Rate 70 70 Pulse Rate [ From Monitor] Respiratory Rate Blood Pressure 126/59 118/50 O2 Sat by Pulse Oximetry O2 Sat by Pulse Oximetry [ Anterior Bilateral] O2 Sat by Pulse Oximetry [ Bases] O2 Sat by Pulse Oximetry [ Bilateral Bases ] O2 Sat by Pulse Oximetry [ Bilateral Throughout] - General Appearance General appearance: well-developed, well-nourished, appears stated age EENT: ATNC, PERRL, mucous membranes moist Neck: no JVD Respiratory: Present: Clear to Ascultation Cardiology: regular, S1S2 Gastrointestinal: normoactive bowel sounds Integumentary: no rash Neurologic: no focal deficit, alert and oriented x3, strength 5/5, CN 3-12 intact Psychiatric: mood/affect appropriate, cooperative - Lab 08/21/21 08:15 08/21/21 08:15 Most recent lab results ABG pH 7.508 (7.320-7.450) H 08/20/21 04:25 ABG pCO2 41.2 mm Hg 08/09/21 04:30 ABG pO2 91.5 mm Hg (80.0-90.0) H 08/09/21 04:30 ABG HCO3 26.6 mmol/L (20.0-26.0) H 08/09/21 04:30 ABG O2 Saturation 99.1 (0-100) 08/20/21 04:25 Calcium 9.1 mg/dL (8.4-10.2) 08/21/21 08:15 Phosphorus 4.30 mg/dL (2.5-4.5) D 08/21/21 08:15 Magnesium 2.00 mg/dL (1.7-2.3) 08/21/21 08:15 Medications & Allergies - Medications Allergies/Adverse Reactions: Allergies No Known Allergies Allergy (Unverified 07/10/21 20:57) Home Medications: Home Medications Medication Instructions Recorded Confirmed Last Taken Type Icosapent Ethyl [Vascepa] 2 gm PO BID 07/12/21 07/12/21 Unknown History Losartan [Cozaar] 25 mg PO BID 07/12/21 07/12/21 Unknown History ALBUTEROL NEB's [Proventil 0.083% 2.5 mg IH Q4HRT PRN nebu 07/15/21 Unknown Rx NEBS] Acetaminophen [Acetaminophen 650 mg [place] Q4H PRN supp.rect 07/15/21 Unknown Rx SUPPOS] Acetaminophen [Acetaminophen TAB] 650 mg PO Q4H PRN tablet 07/15/21 Unknown Rx Amiodarone [Cordarone 200 MG TAB] 200 mg PO BID tablet 07/15/21 Unknown Rx AtorvaSTATin [Lipitor] 80 mg PO QHS tablet 07/15/21 Unknown Rx Clopidogrel [Plavix] 75 mg PO QDAY tablet 07/15/21 Unknown Rx Dextrose 50% in Water [D50W (25GM) 50 ml IV Q30MIN PRN syringe 07/15/21 Unknown Rx Syringe] Free Water 60 ml PO Q4HR oral.liqd 07/15/21 Unknown Rx Isosorbide Dinitrate [Isordil] 5 mg PO Q8HR tablet 07/15/21 Unknown Rx Lipase/Protease/Amylase [Pancreaze 1 each FEEDTUBE PRN PRN capsule 07/15/21 Unknown Rx 10,500 Unit] Lispro Insulin [HumaLOG] 0 unit SUB-Q Q6HR units 07/15/21 Unknown Rx Metoprolol [Lopressor TAB] 25 mg PO TID tablet 07/15/21 Unknown Rx Simple Syrup 30 ml FEEDTUBE PRN PRN oral.liqd 07/15/21 Unknown Rx hydrALAZINE [Apresoline INJ] 10 mg IV Q6H PRN vial 07/15/21 Unknown Rx Active Medications: Generic Name Dose Route Start Last Admin Trade Name Freq PRN Reason Stop Dose Admin Acetaminophen 650 mg 08/06/21 16:30 08/06/21 16:30 Acetaminophen 650 Mg Rect Supp [place] 650 mg Q6H PRN Administration Pain, Mild (1-3) Albuterol 2.5 mg 08/05/21 20:59 Albuterol 2.5 Mg/3 Ml Nebu IH Q4HRT PRN Shortness Of Breath Amiodarone HCl 400 mg 08/14/21 11:00 08/20/21 22:57 Amiodarone 200 Mg Tab PO 400 mg BID JODI Administration Lipase/Protease/Amylase 1 each 08/07/21 09:47 Lipase 10,500/Protease 25,000/Amylase 43,750 (Units) Dr Thomas FEEDTUBE PRN PRN For Clogged Feeding Tube Aspirin 81 mg 08/07/21 10:00 08/20/21 09:28 Aspirin 81 Mg Tab Chew PO 81 mg QDAY JODI Administration Atorvastatin Calcium 80 mg 08/05/21 22:00 08/20/21 22:58 Atorvastatin 40 Mg Tab PO 80 mg QHS JODI Administration Clonidine HCl 0.2 mg 08/20/21 10:00 08/20/21 22:57 Clonidine 0.2 Mg Tab PO 0.2 mg Q12HR JODI Administration Clopidogrel Bisulfate 75 mg 08/10/21 10:00 08/20/21 09:29 Clopidogrel 75 Mg Tab PO 75 mg QDAY JODI Administration Dextrose 50 ml 08/17/21 18:00 Dextrose 50% In Water (25gm) 50 Ml Syringe IV Q30MIN PRN Hypoglycemia Protocol Famotidine 10 mg 08/09/21 22:00 08/20/21 22:58 Famotidine 10 Mg Tab PO 10 mg BID JODI Administration Fentanyl 50 mcg 08/16/21 11:48 08/21/21 01:33 Fentanyl 100 Mcg/2 Ml Inj IV 50 mcg Q2H PRN Administration Pain, Moderate (4-6) Heparin Sodium (Porcine) 5,000 unit 08/11/21 10:00 08/20/21 22:58 Heparin 5,000 Unit/1 Ml Vial SUB-Q 5,000 unit Q12HR JODI Administration Hydralazine HCl 10 mg 08/06/21 04:21 08/15/21 07:53 Hydralazine 20 Mg/1 Ml Inj IV 10 mg Q6HR PRN Administration Hypertension Hydralazine HCl 100 mg 08/14/21 10:00 08/21/21 06:47 Hydralazine 100 Mg Tab PO 100 mg Q8HR [facility] Administration Hydrophilic Ointment 1 applic 08/05/21 17:25 Lip Therapy Vaseline TP Q2HR PRN Dry Lips Sodium Chloride 100 mls @ 999 mls/hr 08/14/21 17:06 Nacl 0.9% IV GLENDY PRN Hypotension Dexmedetomidine HCl 400 mcg/ 104 mls @ 3.341 mls/hr 08/20/21 10:00 08/21/21 07:49 Sodium Chloride IV Infused TITRATE [facility] Titration Protocol 0.2 MCG/KG/HR Insulin Human Regular 0 units 08/17/21 18:00 08/21/21 06:43 Insulin Regular, Human 100 Units/1 Ml SUB-Q Not Given Q6H [facility] Protocol Isosorbide Dinitrate 20 mg 08/11/21 14:00 08/21/21 06:47 Isosorbide Dinitrate 20 Mg Tab PO 20 mg Q8HR [facility] Administration Losartan Potassium 100 mg 08/12/21 10:00 08/20/21 09:29 Losartan 25 Mg Tab PO Not Given DAILY [facility] Methylprednisolone Sodium Succinate 40 mg 08/16/21 13:00 08/21/21 06:48 Methylprednisolone Sod Succinate 40 Mg/1 Ml Inj IV 40 mg Q6HR [facility] Administration Metoclopramide HCl 5 mg 08/05/21 21:03 Metoclopramide 10 Mg/2 Ml Inj IV Q6H PRN Nausea And Vomiting Metoprolol Tartrate 100 mg 08/12/21 12:00 08/20/21 22:58 Metoprolol Tartrate 50 Mg Tab PO 100 mg BID [facility] Administration Multi-Ingred Cream/Lotion/Oil/Oint 1 applic 08/05/21 17:25 Mineral Oil/Petrolatum, White Ophth Oint 3.5 Gm OU Q4HR PRN Dry Eye(s) Ondansetron HCl 4 mg 08/05/21 21:03 Ondansetron 4 Mg/2 Ml Inj IV Q8H PRN Nausea And Vomiting Oxycodone/Acetaminophen 1 tab 08/05/21 21:03 Oxycodone /Acetaminophen 5-325mg Tab PO Q6H PRN Pain, Moderate (4-6) Senna 8.8 mg 08/07/21 13:00 08/20/21 22:58 Sennosides Oral Liqd 8.8 Mg/5 Ml Oral Liqd FEEDTUBE 8.8 mg BID JODI Administration Simple Syrup 15 ml 08/07/21 09:47 Simple Syrup 15 Ml FEEDTUBE PRN PRN Hypoglycemia Simple Syrup 30 ml 08/07/21 09:47 Simple Syrup 15 Ml FEEDTUBE PRN PRN Hypoglycemia Sodium Bicarbonate 325 mg 08/07/21 09:47 Sodium Bicarbonate 325 Mg Tab FEEDTUBE PRN PRN For Clogged Feeding Tube Sodium Chloride 10 ml 08/05/21 22:00 08/20/21 22:59 Sodium Chloride 0.9% 10 Ml Flush Syringe IV 10 ml BID JODI Administration Sodium Chloride 10 ml 08/05/21 21:03 Sodium Chloride 0.9% 10 Ml Flush Syringe IV PRN PRN LINE FLUSH
[2021-08-21] MEDS: HEPARIN 5,000 UNIT/1 ML VIAL SUB-Q SCH ×2 (10:03→22:43)
[2021-08-21] MEDS: ASPIRIN 81 MG TAB CHEW PO SCH (10:04)
[2021-08-21] MEDS: CLOPIDOGREL 75 MG TAB PO SCH (10:04)
[2021-08-21] MEDS: FAMOTIDINE 10 MG TAB PO SCH ×2 (10:04→22:44)
[2021-08-21] MEDS: AMIODARONE 200 MG TAB PO SCH ×2 (10:04→22:44)
[2021-08-21] MEDS: SENNOSIDES ORAL LIQD 8.8 MG/5 ML ORAL LIQD FEEDTUBE SCH ×2 (10:04→22:43)
[2021-08-21] MEDS: EPOETIN ALFA-EPBX 10,000 UNIT/1 ML VIAL IV PRN (10:15)
--- NOTE | 2021-08-21 10:19 | Electrocardiograph Report ---
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
--- NOTE | 2021-08-21 11:30 | Progress Note ---
Assessment and Plan Patient is a 60-year-old female with recurrent V. tach, end-stage renal disease, s/p ICD, and recurrent severe hypokalemia VT Storm Recurrent AICD Discharges CAD s/p PCI (07/17/2021) Accelerated HTN ESRD on HD Hyponatremia Severe Hypokalemia (POA, resolved) Anemia Thrombocytopenia Type 2 MD HTN H/o CVA Plan: Currently waiting bed availability at [facility] for transfer for VT ablation Continue aspirin, Plavix, Lipitor Continue losartan 100 mg p.o. daily and metoprolol 100 mg p.o. twice daily, hydralazine 100 mg p.o.Q8hrs,and amio 400 mg p.o. twice daily, clonidine 0.2 mg p.o. BID and stopping minoxidil due to hypotension pt awaiting extubation if possible Patient seen in conjunction with Dr. Padilla who agrees with this plan of care - Patient Problems (1) AICD discharge Current Visit: Yes Status: Acute (2) Anemia in end-stage renal disease Current Visit: Yes Status: Acute (3) Elevated troponin Current Visit: Yes Status: Acute (4) Hypokalemia Current Visit: Yes Status: Acute (5) Sustained ventricular tachycardia Current Visit: Yes Status: Acute (6) Diabetes Current Visit: No Status: Acute (7) Respiratory failure Current Visit: No Status: Acute Qualifiers: Chronicity: acute Respiratory failure complication: hypoxia Qualified Code(s): J96.01 - Acute respiratory failure with hypoxia (8) Hypertension Current Visit: No Status: Chronic Qualifiers: Hypertension type: primary hypertension Qualified Code(s): I10 - Essential (primary) hypertension Subjective Date of service: 08/21/21 Principal diagnosis: Recurrent VT Interval history: Patient remains intubated Patient A paced 70 no events on monitor Objective Vital Signs Temp Pulse Pulse Resp BP Pulse Ox Pulse Ox 08/21/21 11:15 70 97/44 08/21/21 11:00 70 100/29 08/21/21 10:45 70 127/93 08/21/21 10:30 70 117/67 08/21/21 10:15 70 110/75 08/21/21 10:00 107 H 14 107/53 100 08/21/21 09:45 70 13 124/47 100 08/21/21 09:31 70 15 118/50 100 08/21/21 09:30 70 118/50 08/21/21 09:15 70 11 L 111/45 100 08/21/21 09:01 70 11 L 111/45 100 08/21/21 09:00 70 111/45 08/21/21 08:45 70 11 L 155/57 99 08/21/21 08:31 70 13 155/61 100 08/21/21 08:30 70 155/57 08/21/21 08:24 70 100 08/21/21 08:15 70 12 155/61 98 08/21/21 08:01 70 14 101/44 99 08/21/21 08:00 98 F 70 70 12 101/44 100 08/21/21 07:45 70 14 108/53 100 08/21/21 07:43 98.1 F 08/21/21 07:42 98.2 F 08/21/21 07:31 70 11 L 108/53 99 08/21/21 07:30 97.8 F 70 12 108/53 100 08/21/21 07:21 70 11 L 87/53 99 08/21/21 07:11 70 12 87/53 100 08/21/21 07:01 70 9 L 171/80 100 08/21/21 06:47 70 146/93 08/21/21 06:45 70 10 L 171/80 100 08/21/21 06:31 70 12 171/80 100 08/21/21 06:15 70 13 184/85 100 08/21/21 06:01 70 12 184/85 100 08/21/21 05:45 70 12 184/85 100 08/21/21 05:31 70 14 184/85 100 08/21/21 05:15 70 15 184/85 100 08/21/21 05:01 70 12 184/85 100 08/21/21 04:45 70 13 184/85 100 08/21/21 04:31 70 12 184/85 100 08/21/21 04:15 70 12 184/85 100 08/21/21 04:08 97.9 F 08/21/21 04:01 70 12 184/85 100 08/21/21 04:00 98.5 F 70 70 12 100 08/21/21 03:45 70 11 L 184/85 100 08/21/21 03:38 98.1 F 08/21/21 03:31 70 13 184/85 100 08/21/21 03:15 70 10 L 184/85 100 08/21/21 03:08 98.1 F 08/21/21 03:01 70 12 184/85 100 08/21/21 02:53 97.6 F 08/21/21 02:51 70 13 184/85 100 08/21/21 02:41 70 12 184/85 100 08/21/21 02:33 97.6 F 08/21/21 02:31 70 15 184/85 99 08/21/21 02:21 70 12 184/85 99 08/21/21 02:11 70 12 184/85 99 08/21/21 02:06 97.8 F 08/21/21 02:01 70 12 184/85 99 08/21/21 01:51 70 12 184/85 99 08/21/21 01:41 70 12 184/85 98 08/21/21 01:36 97.8 F 08/21/21 01:31 70 10 L 184/85 100 08/21/21 01:21 70 12 184/85 100 08/21/21 01:16 97.3 F L 08/21/21 01:15 70 8 L 184/85 100 08/21/21 01:11 70 10 L 184/85 100 08/21/21 01:01 70 11 L 184/85 100 08/21/21 00:51 70 13 184/85 100 08/21/21 00:41 70 16 184/85 100 08/21/21 00:31 70 13 184/85 100 08/21/21 00:21 70 11 L 184/85 100 08/21/21 00:11 70 9 L 184/85 100 08/21/21 00:06 96.6 F L 70 127/67 100 08/21/21 00:01 70 12 184/85 100 08/21/21 00:00 97.6 F 70 70 12 100 08/20/21 23:51 97.6 F 70 12 184/85 100 08/20/21 23:41 70 10 L 184/85 100 08/20/21 23:31 70 12 184/85 100 08/20/21 23:21 70 12 184/85 100 08/20/21 23:11 70 10 L 184/85 100 08/20/21 23:01 70 12 184/85 100 08/20/21 22:58 70 167/80 08/20/21 22:57 70 167/86 08/20/21 22:56 70 169/87 08/20/21 22:51 70 12 184/85 100 08/20/21 22:41 70 11 L 184/85 100 08/20/21 22:31 70 12 184/85 100 08/20/21 22:21 70 12 184/85 100 08/20/21 22:11 70 11 L 184/85 100 08/20/21 22:01 70 11 L 184/85 100 08/20/21 21:51 70 10 L 184/85 100 08/20/21 21:41 70 12 184/85 100 08/20/21 21:31 70 12 184/85 100 08/20/21 21:21 70 12 184/85 100 08/20/21 21:11 70 12 184/85 100 08/20/21 21:01 70 10 L 184/85 100 08/20/21 20:51 70 10 L 184/85 100 08/20/21 20:41 70 12 184/85 100 08/20/21 20:31 70 11 L 184/85 100 08/20/21 20:21 70 11 L 184/85 99 08/20/21 20:11 70 10 L 184/85 100 08/20/21 20:01 70 9 L 184/85 100 08/20/21 20:00 97.7 F 70 70 12 100 08/20/21 19:51 70 13 184/85 100 08/20/21 19:45 70 13 184/85 100 08/20/21 19:33 70 132/78 100 08/20/21 19:31 70 12 170/52 100 08/20/21 19:15 70 8 L 170/52 100 08/20/21 19:01 70 6 L 170/52 100 08/20/21 18:45 70 11 L 173/58 100 08/20/21 18:31 70 10 L 154/52 100 08/20/21 18:15 70 10 L 154/52 100 08/20/21 18:00 70 12 154/52 100 08/20/21 17:45 70 11 L 149/54 100 08/20/21 17:31 70 15 149/54 98 08/20/21 17:15 70 10 L 160/67 100 08/20/21 17:01 70 11 L 147/90 100 08/20/21 16:45 70 11 L 147/90 100 08/20/21 16:31 70 12 147/90 100 08/20/21 16:15 70 11 L 141/48 100 08/20/21 16:00 70 70 16 141/48 100 08/20/21 15:45 70 12 137/44 99 08/20/21 15:31 70 16 137/44 99 08/20/21 15:15 70 17 136/41 99 08/20/21 15:01 70 15 177/51 99 08/20/21 14:45 70 14 177/51 98 08/20/21 14:31 70 20 177/51 98 08/20/21 14:15 70 13 166/122 08/20/21 14:01 70 9 L 166/122 97 08/20/21 13:45 70 8 L 194/72 100 08/20/21 13:36 70 158/85 08/20/21 13:31 70 15 194/72 99 08/20/21 13:15 70 15 122/48 100 08/20/21 13:01 70 12 154/70 100 08/20/21 12:45 70 11 L 154/70 100 08/20/21 12:31 70 9 L 162/68 100 08/20/21 12:23 70 12 146/71 100 08/20/21 12:15 70 12 95/51 100 08/20/21 12:01 70 12 95/51 87 08/20/21 12:00 70 70 16 100 08/20/21 11:45 70 18 123/39 96 08/20/21 11:31 70 10 L 123/39 94 Pulse Ox Pulse Ox Pulse Ox 08/21/21 11:15 08/21/21 11:00 08/21/21 10:45 08/21/21 10:30 08/21/21 10:15 08/21/21 10:00 08/21/21 09:45 08/21/21 09:31 08/21/21 09:30 08/21/21 09:15 08/21/21 09:01 08/21/21 09:00 08/21/21 08:45 08/21/21 08:31 08/21/21 08:30 08/21/21 08:24 08/21/21 08:15 08/21/21 08:01 08/21/21 08:00 08/21/21 07:45 08/21/21 07:43 08/21/21 07:42 08/21/21 07:31 08/21/21 07:30 100 100 100 08/21/21 07:21 08/21/21 07:11 08/21/21 07:01 08/21/21 06:47 08/21/21 06:45 08/21/21 06:31 08/21/21 06:15 08/21/21 06:01 08/21/21 05:45 08/21/21 05:31 08/21/21 05:15 08/21/21 05:01 08/21/21 04:45 08/21/21 04:31 08/21/21 04:15 08/21/21 04:08 08/21/21 04:01 08/21/21 04:00 08/21/21 03:45 08/21/21 03:38 08/21/21 03:31 08/21/21 03:15 08/21/21 03:08 08/21/21 03:01 08/21/21 02:53 08/21/21 02:51 08/21/21 02:41 08/21/21 02:33 08/21/21 02:31 08/21/21 02:21 08/21/21 02:11 08/21/21 02:06 08/21/21 02:01 08/21/21 01:51 08/21/21 01:41 08/21/21 01:36 08/21/21 01:31 08/21/21 01:21 08/21/21 01:16 08/21/21 01:15 08/21/21 01:11 08/21/21 01:01 08/21/21 00:51 08/21/21 00:41 08/21/21 00:31 08/21/21 00:21 08/21/21 00:11 08/21/21 00:06 08/21/21 00:01 08/21/21 00:00 08/20/21 23:51 08/20/21 23:41 08/20/21 23:31 08/20/21 23:21 08/20/21 23:11 08/20/21 23:01 08/20/21 22:58 08/20/21 22:57 08/20/21 22:56 08/20/21 22:51 08/20/21 22:41 08/20/21 22:31 08/20/21 22:21 08/20/21 22:11 08/20/21 22:01 08/20/21 21:51 08/20/21 21:41 08/20/21 21:31 08/20/21 21:21 08/20/21 21:11 08/20/21 21:01 08/20/21 20:51 08/20/21 20:41 08/20/21 20:31 08/20/21 20:21 08/20/21 20:11 08/20/21 20:01 08/20/21 20:00 08/20/21 19:51 08/20/21 19:45 08/20/21 19:33 08/20/21 19:31 08/20/21 19:15 08/20/21 19:01 08/20/21 18:45 08/20/21 18:31 08/20/21 18:15 08/20/21 18:00 08/20/21 17:45 08/20/21 17:31 08/20/21 17:15 08/20/21 17:01 08/20/21 16:45 08/20/21 16:31 08/20/21 16:15 08/20/21 16:00 08/20/21 15:45 08/20/21 15:31 08/20/21 15:15 08/20/21 15:01 08/20/21 14:45 08/20/21 14:31 08/20/21 14:15 08/20/21 14:01 08/20/21 13:45 08/20/21 13:36 08/20/21 13:31 08/20/21 13:15 08/20/21 13:01 08/20/21 12:45 08/20/21 12:31 08/20/21 12:23 08/20/21 12:15 08/20/21 12:01 08/20/21 12:00 08/20/21 11:45 08/20/21 11:31 - Physical Examination General: Other (intubated) HEENT: Positive: Normocephaly, Mucus Membranes Dry Neck: Positive: neck supple, trachea midline. Negative: JVD/HJR Cardiac: Positive: Reg Rate and Rhythm Lungs: Positive: Ventilated Respirations Neuro: Positive: Other (intubated) Abdomen: Positive: Soft Skin: Negative: Rash Musculoskeletal: No Fluid Collection Extremities: Present: lower extr. pulses. Absent: edema - Labs and Meds CBC 08/21/21 Range/Units 08:15 WBC 9.7 (4.5-11.0) K/mm3 RBC 2.90 L (3.65-5.03) M/mm3 Hgb 7.7 L (10.1-14.3) gm/dl Hct 23.5 L (30.3-42.9) % Plt Count 390 (140-440) K/mm3 Comprehensive Metabolic Panel 08/21/21 Range/Units 08:15 Sodium 134 L (137-145) mmol/L Potassium 4.3 (3.6-5.0) mmol/L Chloride 94.9 L (98-107) mmol/L Carbon Dioxide 25 (22-30) mmol/L BUN 42 H (7-17) mg/dL Creatinine 4.0 H (0.6-1.2) mg/dL Glucose 208 H (65-100) mg/dL Calcium 9.1 (8.4-10.2) mg/dL - Imaging and Cardiology EKG: report reviewed, image reviewed Echo: report reviewed Cardiac cath: report reviewed - Telemetry EKG Rhythm: Paced - EKG Sinus rhythms and dysrhythmias: sinus rhythm Repolarization changes or abnormalities: Q-T interval prolongation Myocardial infarction: anterior MD (old age or i Pacemaker: atrial pacing w/capture - Allied health notes Allied health notes reviewed: nursing
[2021-08-21 11:47] LABS: Alanine Aminotransferase 14 units/L (7-56); Albumin 2.6 g/dL (3.9-5)
[2021-08-21 11:57] LABS: Bilirubin,Direct < 0.2 mg/dL (0-0.2)
[2021-08-21] MEDS: QUEtiapine 25 MG TAB PO SCH ×2 (12:35→22:42)
[2021-08-21] MEDS: hydrALAZINE 25 MG TAB PO SCH ×2 (14:28→22:49)
[2021-08-21] MEDS: cloNIDine 0.2 MG TAB PO SCH ×2 (14:29→22:48)
[2021-08-21] MEDS: METOPROLOL TARTRATE 50 MG TAB PO SCH ×2 (14:30→22:43)
[2021-08-21] MEDS: LOSARTAN 25 MG TAB PO SCH (14:30)
--- NOTE | 2021-08-21 14:36 | Progress Note ---
Assessment and Plan Assessment and plan: This is 60-year-old female with ESRD on HD, recurrent AICD discharges, V. tach, cardiac arrest, anemia of chronic disease, CAD, systolic HF and HTN admitted for V. tach and severe hypokalemia Neuro: Sedated -Sedated with precedex -PRN fentanyl IVP and added seroquel today -RASS goal -1 to -2 -Avoid delirium -Reorientation as needed -SAT/SBT when appropriate -CT head x2 with no acute findings CV: Recurrent V. tach storm, NSTEMI, h/o s/p AICD implantation, systolic heart failure, V. tach, HTN -Cardiology consulted, appreciate recommendations -S/p lidocaine and Cardene drip -Antihypertensive regimen: hydralazine, isosorbide, cozaar, metoprolol,clonidine (adjust as needed) -madelaine removed today -s/p Amiodarone drip-> Amio PO -Awaiting transfer to [facility] -Continue Lipitor, Plavix, ASA Respiratory: Acute Hypoxemic Respiratory Failure -CCM consulted, appreciate recommendations -Intubated in the ED on 08/05 with a 6.50 ETT at 21 at the lips, extubated 08/14 with reintubation, self extubation 08/16 with reintubation 7.5 oett @ 24 lips -A.m. vent settings assist-control rate 12, tidal volume 375, PEEP 6, FiO2 30% -See RT notes for titration -no cuff leak noted today despite FFP x2 yesterday - will need neck imaging -A.m. ABG and CXR noted -VAP bundle -SPO2 monitoring GI: NAD -Nutrition consult for tube feeding -24 hours +1025 mL -HD removal of 2L 08/21 -PPI -BR: Senokot -BM 08/19 : ESRD on HD, hyponatremia, hypochloremia -Nephrology consulted, appreciate recommendations -HD per nephrology -Avoid nephrotoxic medications -Renally dose medications -Strict intake and output ID: [id number] -Monitor WBC and fever curve -Follow-up blood culture x2 and sputum culture -NGTD Heme: Thrombocytosis, Acute on chronic anemia of chronic disease -S/p 2 unit PRBC -Trend CBC -Transfuse for hemoglobin less than 7 -Epogen per nephrology -Resume DAPT per cards in setting of recent stent -Heparin subq -SCDs to bilateral LE while in bed Endo: Hypoglycemia (resolved) -S/p D10 for hypoglycemia -Avoid hypoglycemia -Accu-Cheks every 4 Dispo: AWAITING TRANSFER TO [facility] since 08/06/2021 Critical care statement The high probability of a clinically significant sudden or life-threatening deterioration of the [cardio-respiratory system] and endocrine system required my full and direct attention, intervention and postoperative management. The aggregate critical care time was [60] minutes. The time is in addition to time spent performing reported procedures but includes the following: [x] 1: Data review and interpretation [x] 2: Patient assessment and monitoring of vital signs [x] 3: Documentation [x] 4: Medication orders and management Disposition Plan: icu Total Time Spent with Patient (Minutes): 60 History Interval history: This is 60-year-old female with ESRD on HD, recurrent AICD discharges, systolic heart failure, V. tach, cardiac arrest, anemia, CAD and HTN who presents to the emergency department from her dialysis center on 08/05 for severe muscle spasms secondary to AICD discharges per patient. She also had questionable seizures in the dialysis center. Patient was started on amiodarone and lidocaine. Patient was intubated for airway protection in the emergency department and work-up also revealed severe hypokalemia. Patient was admitted to the hospital service with consult cardiology, nephrology and [facility]. 08/06/2021: Patient is sedated, Transfer to [facility] arranged 08/07: COVID-19 PCR negative. Patient received hemodialysis today. Off Cardene drip. Patient has been OG tube for p.o. BP medications. Thrombocytopenia persists therefore anticoagulation is held. Patient is leukopenia also. We will continue to trend CBC. Persistent hypoglycemia and D10 drip increased to 30 ml/hr. negative Covid test relayed to [facility]. 08/08: 1 unit prbc today, will start TF today. Still awaiting [facility] bed. 08/09: awaiting transfer to [facility]. TF nearly at goal so anticipate stopping dextrose IVF soon. Midline to be placed 08/10/2021: Received HD today. BP remains elevated therefore started on cardene gtt. Cardiology aware. No beds available yet. 08/11/2021: Cardene gtt infusing, CT head ordered as per nurse patient is not really responding (withdraw/ grimace to pain when off sedation/PERRL/intact cough/gag on PE). 1/3: ANGELINE overnight. Remains on the vent and sedated. On Amio gtt, A-pacing on the monitor, still hypertensive on cardene gtt, home antihypertensive was restarted. Plan for HD this am, hypernatremia too be corrected per Nephro. 08/13: Plan for SAT and SBT this am for possible extubation. Patient remains hypertensive on cardene gtt, clonidine added. 08/14: Patient s/p reintubation by anesthesia. Awake and alert following commands, not on any sedation. Remains hypertensive on amio and cardene gtt. D/w cardio plan to switch to PO Amio and to adjust antihypertensive therapy, hopefully can wean off cardene gtt. Plan to possible transfer patient to [facility] as a way of getting patient into the [facility] system for the needed ablation. Case management to arrange 08/15: ANGELINE overnight. Patient remains stable on the vent. Still with uncontrolled hypertension despite meds increased yesterday. Patient remains on cardene gt. Cardio added minoxidil, plan is still to wean off cardene gtt. Plan for HD today 08/16: Self-extubated and was reintubated overnight due to stridor. Now on low dose sedation, following commands. D/w CCM plan to do a cuff leak today and possible start patinet on IV steroids. Since this is X2 failed extubation patient might need to be Trached. Per Case management patient was denied for [facility], no HD beds available. Patient remains on [facility] transfer list for possible inpatient transfer. 08/17: On the vent and om propofol gtt, RASS 0. Hypotensive overnight, will defer to Cardio for possible BP meds adjustment. Pending transfer to [facility]. 08/18: ANGELINE overnight. While awake on propofol gtt, following commands. Tolerated PST yesterday [id number]. Daily PST as tolerated. Pending transfer to [facility] 08/19: no cuff leak noted, may need neck imaging later this week. HD today with removal of 2.5 L. Midline ordered. Madelaine positional 08/20: Blood pressure medications adjusted due to hypotension, leak test not completed yet. No acute events reported overnight. Precedex drip initiated due to elevated triglycerides and propofol discontinued. 08/21: Patient remains soft with her blood pressures and antihypertensive regimen adjusted again. No cuff leak noted again despite getting FFP yesterday. Remains on Precedex. Started on Seroquel. Will have routine ECG tomorrow. Hospitalist Physical - Constitutional Vitals: Temp Pulse Resp BP Pulse Ox 98.4 F 70 12 146/58 100 08/21/21 11:59 08/21/21 14:28 08/21/21 14:15 08/21/21 14:28 08/21/21 14:15 General appearance: Present: no acute distress, other (Intubated and on sedation, RASS 0 ) - EENT Eyes: Present: PERRL, EOM intact - Neck Neck: Present: supple, normal ROM - Respiratory Respiratory effort: normal Respiratory: bilateral: CTA - Cardiovascular Rhythm: regular Heart Sounds: Present: S1 & S2. Absent: systolic murmur, diastolic murmur - Extremities Extremities: no ischemia, pulses intact, pulses symmetrical, No edema, normal temperature, normal color Peripheral Pulses: within normal limits - Abdominal General gastrointestinal: soft, non-tender, non-distended, normal bowel sounds - Integumentary Integumentary: Present: warm, dry - Psychiatric Psychiatric: cooperative - Neurologic Neurologic: CNII-XII intact - Allied Health Allied health notes reviewed: nursing, RT, social work HEART Score - HEART Score Age: 45-65 Risk factors: > 3 risk factors or hx of atherosclerotic disease Troponin: Troponin T 0.183 ng/mL (0.00-0.029) H* D 08/05/21 18:56 Troponin: 1-3x normal limit - Critical Actions Critical Actions: 4-6 pts:12-16.6% risk of adverse cardiac event. Should be admitted Results - Labs CBC & Chem 7: 08/21/21 08:15 08/21/21 08:15 Labs: Laboratory Last Values WBC 9.7 K/mm3 (4.5-11.0) 08/21/21 08:15 RBC 2.90 M/mm3 (3.65-5.03) L 08/21/21 08:15 Hgb 7.7 gm/dl (10.1-14.3) L 08/21/21 08:15 Hct 23.5 % (30.3-42.9) L 08/21/21 08:15 MCV 81 fl (79-97) 08/21/21 08:15 MCH 27 pg (28-32) L 08/21/21 08:15 MCHC 33 % (30-34) 08/21/21 08:15 RDW 18.9 % (13.2-15.2) H 08/21/21 08:15 Plt Count 390 K/mm3 (140-440) 08/21/21 08:15 Lymph % (Auto) Pulmonary Care Nurse 08/07/21 04:00 [place] % (Auto) Pulmonary Care Nurse 08/11/21 04:00 Eos % (Auto) 2.2 % (0.0-4.3) 08/06/21 16:35 Baso % (Auto) Pulmonary Care Nurse 08/07/21 04:00 Lymph # (Auto) 0.8 K/mm3 (1.2-5.4) L 08/06/21 16:35 [place] # (Auto) 0.7 K/mm3 (0.0-0.8) 08/06/21 16:35 Eos # (Auto) 0.1 K/mm3 (0.0-0.4) 08/06/21 16:35 Baso # (Auto) 0.1 K/mm3 (0.0-0.1) 08/06/21 16:35 Add Manual Diff Complete 08/11/21 04:00 Total Counted 100 08/11/21 04:00 Seg Neutrophils % Pulmonary Care Nurse 08/07/21 04:00 Seg Neuts % (Manual) 76.0 % (40.0-70.0) H 08/11/21 04:00 Band Neutrophils % 2.0 % 08/11/21 04:00 Lymphocytes % (Manual) 8.0 % (13.4-35.0) L 08/11/21 04:00 Reactive Lymphs % (Man) 5.0 % 08/07/21 04:00 Monocytes % (Manual) 13.0 % (0.0-7.3) H 08/11/21 04:00 Eosinophils % (Manual) 1.0 % (0.0-4.3) 08/10/21 04:00 Basophils % (Manual) 4.0 % (0.0-1.8) H 08/07/21 04:00 Metamyelocytes % 1.0 % 08/11/21 04:00 Nucleated RBC % Not Reportable 08/11/21 04:00 Seg Neutrophils # 2.6 K/mm3 (1.8-7.7) 08/06/21 16:35 Seg Neutrophils # Man 5.2 K/mm3 (1.8-7.7) 08/11/21 04:00 Band Neutrophils # 0.1 K/mm3 08/11/21 04:00 Lymphocytes # (Manual) 0.6 K/mm3 (1.2-5.4) L 08/11/21 04:00 Abs React Lymphs (Man) 0.0 K/mm3 08/11/21 04:00 Monocytes # (Manual) 0.9 K/mm3 (0.0-0.8) H 08/11/21 04:00 Eosinophils # (Manual) 0.0 K/mm3 (0.0-0.4) 08/11/21 04:00 Basophils # (Manual) 0.0 K/mm3 (0.0-0.1) 08/11/21 04:00 Metamyelocytes # 0.1 K/mm3 08/11/21 04:00 Myelocytes # 0.0 K/mm3 08/11/21 04:00 Promyelocytes # 0.0 K/mm3 08/11/21 04:00 Blast Cells # 0.0 K/mm3 08/11/21 04:00 WBC Morphology Not Reportable 08/11/21 04:00 WBC Morphology TNR 08/11/21 04:00 Hypersegmented Neuts Not Reportable 08/11/21 04:00 Hyposegmented Neuts Not Reportable 08/11/21 04:00 Hypogranular Neuts Not Reportable 08/11/21 04:00 Smudge Cells Not Reportable 08/11/21 04:00 Toxic Granulation Not Reportable 08/11/21 04:00 Toxic Vacuolation Not Reportable 08/11/21 04:00 Dohle Bodies Not Reportable 08/11/21 04:00 Pelger-Huet Anomaly Not Reportable 08/11/21 04:00 Claudio Rods Not Reportable 08/11/21 04:00 Platelet Estimate Consistent w auto 08/11/21 04:00 Clumped Platelets Not Reportable 08/11/21 04:00 Plt Clumps, EDTA Not Reportable 08/11/21 04:00 Large Platelets Not Reportable 08/11/21 04:00 Giant Platelets Not Reportable 08/11/21 04:00 Platelet Satelliting Not Reportable 08/11/21 04:00 Plt Morphology Comment Not Reportable 08/11/21 04:00 RBC Morphology Not Reportable 08/11/21 04:00 Dimorphic RBCs Not Reportable 08/11/21 04:00 Polychromasia Not Reportable 08/11/21 04:00 Hypochromasia Few 08/11/21 04:00 Poikilocytosis Not Reportable 08/11/21 04:00 Anisocytosis Not Reportable 08/11/21 04:00 Microcytosis Not Reportable 08/11/21 04:00 Macrocytosis Not Reportable 08/11/21 04:00 Spherocytes Not Reportable 08/11/21 04:00 Pappenheimer Bodies Not Reportable 08/11/21 04:00 Sickle Cells Not Reportable 08/11/21 04:00 Target Cells Few 08/11/21 04:00 Tear Drop Cells Not Reportable 08/11/21 04:00 Ovalocytes Not Reportable 08/11/21 04:00 Helmet Cells Not Reportable 08/11/21 04:00 Diaz-Belmore Bodies Not Reportable 08/11/21 04:00 Colliers Rings Not Reportable 08/11/21 04:00 Case Cells Not Reportable 08/11/21 04:00 Bite Cells Not Reportable 08/11/21 04:00 Crenated Cell Not Reportable 08/11/21 04:00 Elliptocytes Not Reportable 08/11/21 04:00 Acanthocytes (Spur) Not Reportable 08/11/21 04:00 Rouleaux Not Reportable 08/11/21 04:00 Hemoglobin C Crystals Not Reportable 08/11/21 04:00 Schistocytes Not Reportable 08/11/21 04:00 Malaria parasites Not Reportable 08/11/21 04:00 Aleks Bodies Not Reportable 08/11/21 04:00 Hem Pathologist Commnt No 08/11/21 04:00 PT 14.2 Sec. (12.2-14.9) 08/06/21 16:35 INR 0.99 (0.87-1.13) 08/06/21 16:35 APTT 37.1 Sec. (24.2-36.6) H 08/06/21 07:26 ABG pH 7.508 (7.320-7.450) H 08/20/21 04:25 POC ABG pCO2 35.1 mmHg (32.0-48.0) 08/20/21 04:25 ABG pCO2 41.2 mm Hg 08/09/21 04:30 POC ABG pO2 139.8 mmHg (83-108) H 08/20/21 04:25 ABG pO2 91.5 mm Hg (80.0-90.0) H 08/09/21 04:30 POC ABG HCO3 27.3 08/20/21 04:25 ABG HCO3 26.6 mmol/L (20.0-26.0) H 08/09/21 04:30 ABG O2 Saturation 99.1 (0-100) 08/20/21 04:25 ABG O2 Content 12.3 (0.0-44) 08/09/21 04:30 POC ABG Base Excess 4.0 08/20/21 04:25 ABG Base Excess 2.0 mmol/L (-2.0-3.0) 08/09/21 04:30 ABG Hemoglobin 8.2 (12.0-17.5) L 08/20/21 04:25 ABG Oxyhemoglobin 98.3 (94-98) H 08/20/21 04:25 ABG Carboxyhemoglobin 1.4 % (0.0-5.0) 08/09/21 04:30 ABG Methemoglobin 0.3 (0.0-1.5) 08/20/21 04:25 ABG Sodium 129.8 mmol/L (136.0-145.0) L 08/20/21 04:25 ABG Potassium 3.7 mmol/L (3.40-4.50) 08/20/21 04:25 ABG Chloride 96.0 mmol/L (98-107) L 08/20/21 04:25 ABG Glucose 162 mg/dL (65-95) H 08/20/21 04:25 Oxyhemoglobin 95.4 % (95.0-99.0) 08/09/21 04:30 Carboxyhemoglobin 0.5 (0.5-1.5) 08/20/21 04:25 FiO2 25 % 08/09/21 04:30 FiO2 % 30.0 08/20/21 04:25 Sodium 134 mmol/L (137-145) L 08/21/21 08:15 Potassium 4.3 mmol/L (3.6-5.0) 08/21/21 08:15 Chloride 94.9 mmol/L (98-107) L 08/21/21 08:15 Carbon Dioxide 25 mmol/L (22-30) 08/21/21 08:15 Anion Gap 18 mmol/L 08/21/21 08:15 BUN 42 mg/dL (7-17) H 08/21/21 08:15 Creatinine 4.0 mg/dL (0.6-1.2) H 08/21/21 08:15 Estimated GFR 14 ml/min 08/21/21 08:15 BUN/Creatinine Ratio 11 % 08/21/21 08:15 Glucose 208 mg/dL (65-100) H 08/21/21 08:15 POC Glucose 187 mg/dL (70-105) H 08/21/21 11:34 Calcium 9.1 mg/dL (8.4-10.2) 08/21/21 08:15 Phosphorus 4.30 mg/dL (2.5-4.5) D 08/21/21 08:15 Magnesium 2.00 mg/dL (1.7-2.3) 08/21/21 08:15 Total Bilirubin 0.30 mg/dL (0.1-1.2) 08/21/21 08:18 Direct Bilirubin < 0.2 mg/dL (0-0.2) 08/21/21 08:18 Indirect Bilirubin 0.1 mg/dL 08/21/21 08:18 AST 15 units/L (5-40) 08/21/21 08:18 ALT 14 units/L (7-56) 08/21/21 08:18 Alkaline Phosphatase 98 units/L (35-129) 08/21/21 08:18 Troponin T 0.183 ng/mL (0.00-0.029) H* D 08/05/21 18:56 Total Protein 6.0 g/dL (6.3-8.2) L 08/21/21 08:18 Albumin 2.6 g/dL (3.9-5) L 08/21/21 08:18 Albumin/Globulin Ratio 0.8 % 08/21/21 08:18 Triglycerides 433 mg/dL (2-149) H 08/20/21 06:08 Cholesterol 170 mg/dL (50-199) 08/05/21 15:55 LDL Cholesterol Direct 106 mg/dL (50-130) 08/05/21 15:55 HDL Cholesterol 32 mg/dL (40-59) L 08/05/21 15:55 Cholesterol/HDL Ratio 5.31 % 08/05/21 15:55 TSH 7.070 mlU/mL (0.270-4.200) H 08/07/21 13:30 Arterial Blood Glucose 162 mg/dL (65-95) H 08/20/21 04:25 Arterial Blood Ionized Calcium 4.8 mg/dL (4.6-5.3) 08/15/21 05:22 Coronavirus (PCR) Negative (Negative) 08/07/21 Unknown Hepatitis A IgM Ab Non-reactive (NonReactive) 08/08/21 04:26 Hep Bs Antigen Nonreactive (Negative) 08/08/21 04:26 Hep B Core IgM Ab Non-reactive (NonReactive) 08/08/21 04:26 Hepatitis C Antibody Non-reactive (NonReactive) 08/08/21 04:26 Blood Type O POSITIVE 08/20/21 15:29 Antibody Screen TNR 08/20/21 15:29 Crossmatch See Detail 08/06/21 05:30 Active Medications - Current Medications Current Medications: Generic Name Dose Route Start Last Admin Trade Name Freq PRN Reason Stop Dose Admin Acetaminophen 650 mg 08/06/21 16:30 08/06/21 16:30 Acetaminophen 650 Mg Rect Supp GA 650 mg Q6H PRN Administration Pain, Mild (1-3) Albuterol 2.5 mg 08/05/21 20:59 Albuterol 2.5 Mg/3 Ml Nebu IH Q4HRT PRN Shortness Of Breath Amiodarone HCl 400 mg 08/14/21 11:00 08/21/21 10:04 Amiodarone 200 Mg Tab PO 400 mg BID JODI Administration Lipase/Protease/Amylase 1 each 08/07/21 09:47 Lipase 10,500/Protease 25,000/Amylase 43,750 (Units) Dr Thomas FEEDTUBE PRN PRN For Clogged Feeding Tube Aspirin 81 mg 08/07/21 10:00 08/21/21 10:04 Aspirin 81 Mg Tab Chew PO 81 mg QDAY JODI Administration Atorvastatin Calcium 80 mg 08/05/21 22:00 08/20/21 22:58 Atorvastatin 40 Mg Tab PO 80 mg QHS JODI Administration Clonidine HCl 0.2 mg 08/20/21 10:00 08/21/21 14:29 Clonidine 0.2 Mg Tab PO Not Given Q12HR [facility] Clopidogrel Bisulfate 75 mg 08/10/21 10:00 08/21/21 10:04 Clopidogrel 75 Mg Tab PO 75 mg QDAY JODI Administration Dextrose 50 ml 08/17/21 18:00 Dextrose 50% In Water (25gm) 50 Ml Syringe IV Q30MIN PRN Hypoglycemia Protocol Famotidine 10 mg 08/09/21 22:00 08/21/21 10:04 Famotidine 10 Mg Tab PO 10 mg BID JODI Administration Fentanyl 50 mcg 08/16/21 11:48 08/21/21 01:33 Fentanyl 100 Mcg/2 Ml Inj IV 50 mcg Q2H PRN Administration Pain, Moderate (4-6) Heparin Sodium (Porcine) 5,000 unit 08/11/21 10:00 08/21/21 10:03 Heparin 5,000 Unit/1 Ml Vial SUB-Q 5,000 unit Q12HR JODI Administration Hydralazine HCl 10 mg 08/06/21 04:21 08/15/21 07:53 Hydralazine 20 Mg/1 Ml Inj IV 10 mg Q6HR PRN Administration Hypertension Hydralazine HCl 50 mg 08/21/21 14:00 08/21/21 14:28 Hydralazine 25 Mg Tab PO 50 mg Q8HR JODI Administration Hydrophilic Ointment 1 applic 08/05/21 17:25 Lip Therapy Vaseline TP Q2HR PRN Dry Lips Sodium Chloride 100 mls @ 999 mls/hr 08/14/21 17:06 Nacl 0.9% IV GLENDY PRN Hypotension Dexmedetomidine HCl 400 mcg/ 104 mls @ 3.341 mls/hr 08/20/21 10:00 08/21/21 12:35 Sodium Chloride IV 1.2 mcg/kg/hr TITRATE JODI 20.046 mls/hr Administration Protocol 0.2 MCG/KG/HR Insulin Human Regular 0 units 08/17/21 18:00 08/21/21 13:07 Insulin Regular, Human 100 Units/1 Ml SUB-Q 1 units Q6H JODI Administration Protocol Isosorbide Dinitrate 20 mg 08/11/21 14:00 08/21/21 14:28 Isosorbide Dinitrate 20 Mg Tab PO 20 mg Q8HR JODI Administration Losartan Potassium 100 mg 08/12/21 10:00 08/21/21 14:30 Losartan 25 Mg Tab PO Not Given DAILY [facility] Methylprednisolone Sodium Succinate 40 mg 08/16/21 13:00 08/21/21 12:35 Methylprednisolone Sod Succinate 40 Mg/1 Ml Inj IV 40 mg Q6HR JODI Administration Metoclopramide HCl 5 mg 08/05/21 21:03 Metoclopramide 10 Mg/2 Ml Inj IV Q6H PRN Nausea And Vomiting Metoprolol Tartrate 100 mg 08/12/21 12:00 08/21/21 14:30 Metoprolol Tartrate 50 Mg Tab PO Not Given BID [facility] Multi-Ingred Cream/Lotion/Oil/Oint 1 applic 08/05/21 17:25 Mineral Oil/Petrolatum, White Ophth Oint 3.5 Gm OU Q4HR PRN Dry Eye(s) Ondansetron HCl 4 mg 08/05/21 21:03 Ondansetron 4 Mg/2 Ml Inj IV Q8H PRN Nausea And Vomiting Oxycodone/Acetaminophen 1 tab 08/05/21 21:03 Oxycodone /Acetaminophen 5-325mg Tab PO Q6H PRN Pain, Moderate (4-6) Quetiapine Fumarate 25 mg 08/21/21 12:00 08/21/21 12:35 Quetiapine 25 Mg Tab PO 25 mg BID JODI Administration Senna 8.8 mg 08/07/21 13:00 08/21/21 10:04 Sennosides Oral Liqd 8.8 Mg/5 Ml Oral Liqd FEEDTUBE 8.8 mg BID JODI Administration Simple Syrup 15 ml 08/07/21 09:47 Simple Syrup 15 Ml FEEDTUBE PRN PRN Hypoglycemia Simple Syrup 30 ml 08/07/21 09:47 Simple Syrup 15 Ml FEEDTUBE PRN PRN Hypoglycemia Sodium Bicarbonate 325 mg 08/07/21 09:47 Sodium Bicarbonate 325 Mg Tab FEEDTUBE PRN PRN For Clogged Feeding Tube Sodium Chloride 10 ml 08/05/21 22:00 08/21/21 10:04 Sodium Chloride 0.9% 10 Ml Flush Syringe IV 10 ml BID JODI Administration Sodium Chloride 10 ml 08/05/21 21:03 Sodium Chloride 0.9% 10 Ml Flush Syringe IV PRN PRN LINE FLUSH Nutrition/Malnutrition Assess - Dietary Evaluation Nutrition/Malnutrition Findings: Nutrition Notes Start: 08/07/21 09:12 Freq: Status: Active Protocol: Document 08/19/21 14:47 KALA (Rec: 08/19/21 15:06 KALA [id number]) Nutrition Notes Initial or Follow up Brief Note Current Diet TF-Nepro w/CARBSTEADY @ 32 ml/ hr (since L 08/16). Height 5 ft 2 in Weight 64.25 kg [place] Body Weight (kg) 50.00 BMI 25.9 Weight change and time frame No body weight change reported . Weight Status Overweight Subjective/Other Information RD consult for routine F/U on TF continuation assessment. Pt reintubated and TF continued at the time of conversation with RN. Still waiting for placement at [facility]. Percent of energy/protein needs met: Prescribed Nepro w/CARBSTEADY @ 32 ml/hr will provide for energy/protein needs (1,403 Kcal/63 g) 100% Kcal; 82% AA, during LOS. #1 Nutrition Diagnosis Inadequate oral intake Diagnosis Progress(for reassessment Continues documentation) Nutrition Intervention Nutrition Support: Continue Nepro w/CARBSTEADY @ 32 ml/hr. Flush: 50 ml water Q 4 hr until hyponatremia resolves, then 150 ml Q 4 hr. % RDI: 100% Kcal; 82% AA. Goal #1 Provide at least 75% of energy /protein needs through Enteral Feeding during LOS. Follow-Up By: 08/26/21 Additional Comments Continue monitoring TF tolerance, and BM.
--- NOTE | 2021-08-21 14:53 | Progress Note ---
Assessment and Plan 60 y/o female with known VT in the past, systolic heart failure with BIV AICD admitted with recurrent VT and electrolyte abnormality 08/21/21: No leak on test today. Will do neck CT noncontrast to look for extrisinc issues or potential swelling. Will consult surgery for trach and peg. Await bed at [place]. Guarded prognosis. 08/20/21: Leak test today. If not audible leak, then will give 2 of FFP. Daily leak test should be performed. may need trach if FFP does not work. No runs of VT stable. If bed becomes available at [place] will transfer. 08/19/21: Continue IV steroids until leak test today. If leak is present will likely stop steroids. Will consider extubation yet again however if fails this time will need trach. Continue rate control therapy. Guarded prognosis. 08/16/21: Still no beds at [place]. Will do a leak test this afternoon. If no leak, then will start IV steroid therapy. Patient was only intubated for airway protection to help with catecholamine storm associated with VT storm. No prior lung disease. The multiple intubation may have caused some scarring in the trachea but right now this is not known. Continue supportive measures but may end up needing trach. 08/15/21: Will discuss with CM if any further news on LTACH acceptance. Attempt PSV trials today. BP still elevated and still on Cardene despite increase in med therapy. Will discuss with cards, and renal, and pharm on rounds. 08/14/21: Given no ICU beds at [place], will attempt to transfer to [facility] with hopes that patient can get ablation and then be transferred back over for further vent weaning. 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 Agree with cards increasing therapy for HTN. Will attempt to wean Cardene 08/13/21: Will start Clonidine 0.1 TID given her persistent need for Cardene drip. Will extubate today and transfer to tele floor. Hoping this will help the patient get a bed faster at [place]. Rate control per cards. 08/12/21: Will discontinue cardene while on HD as goal is to pull 3 liters. Will speak with [facility] and ask them to call [place] to see if they have a time frame. Continue supportive measures. Remains on Amio Drip. 08/08/21: Continue supportive measures. Follow up any new cardiac recs. 08/07/21: Await transfer to [place], continue supportive measures Follow up cards recs most likely needs ablation at [place] Continue amio drip per cards CCt 31 minutes. Subjective Date of service: 08/21/21 Principal diagnosis: Recurrent VT Interval history: Still no leak. Awake on precedex. Objective Vital Signs - 12hr 08/21/21 08/21/21 08/21/21 02:53 03:01 03:08 Temperature 97.6 F 98.1 F Pulse Rate 70 Pulse Rate [ From Monitor] Respiratory 12 Rate Blood Pressure 184/85 O2 Sat by Pulse 100 Oximetry O2 Sat by Pulse Oximetry [ Anterior Bilateral] O2 Sat by Pulse Oximetry [ Bases] O2 Sat by Pulse Oximetry [ Bilateral Bases ] O2 Sat by Pulse Oximetry [ Bilateral Throughout] 08/21/21 08/21/21 08/21/21 03:15 03:31 03:38 Temperature 98.1 F Pulse Rate 70 70 Pulse Rate [ From Monitor] Respiratory 10 L 13 Rate Blood Pressure 184/85 184/85 O2 Sat by Pulse 100 100 Oximetry O2 Sat by Pulse Oximetry [ Anterior Bilateral] O2 Sat by Pulse Oximetry [ Bases] O2 Sat by Pulse Oximetry [ Bilateral Bases ] O2 Sat by Pulse Oximetry [ Bilateral Throughout] 08/21/21 08/21/21 08/21/21 03:45 04:00 04:01 Temperature 98.5 F Pulse Rate 70 70 70 Pulse Rate [ 70 From Monitor] Respiratory 11 L 12 12 Rate Blood Pressure 184/85 184/85 O2 Sat by Pulse 100 100 100 Oximetry O2 Sat by Pulse Oximetry [ Anterior Bilateral] O2 Sat by Pulse Oximetry [ Bases] O2 Sat by Pulse Oximetry [ Bilateral Bases ] O2 Sat by Pulse Oximetry [ Bilateral Throughout] 08/21/21 08/21/21 08/21/21 04:08 04:15 04:31 Temperature 97.9 F Pulse Rate 70 70 Pulse Rate [ From Monitor] Respiratory 12 12 Rate Blood Pressure 184/85 184/85 O2 Sat by Pulse 100 100 Oximetry O2 Sat by Pulse Oximetry [ Anterior Bilateral] O2 Sat by Pulse Oximetry [ Bases] O2 Sat by Pulse Oximetry [ Bilateral Bases ] O2 Sat by Pulse Oximetry [ Bilateral Throughout] 08/21/21 08/21/2122 04:45 05:01 05:15 Temperature Pulse Rate 70 70 70 Pulse Rate [ From Monitor] Respiratory 13 12 15 Rate Blood Pressure 184/85 184/85 184/85 O2 Sat by Pulse 100 100 100 Oximetry O2 Sat by Pulse Oximetry [ Anterior Bilateral] O2 Sat by Pulse Oximetry [ Bases] O2 Sat by Pulse Oximetry [ Bilateral Bases ] O2 Sat by Pulse Oximetry [ Bilateral Throughout] 08/21/21 08/21/21 08/21/21 05:31 05:45 06:01 Temperature Pulse Rate 70 70 70 Pulse Rate [ From Monitor] Respiratory 14 12 12 Rate Blood Pressure 184/85 184/85 184/85 O2 Sat by Pulse 100 100 100 Oximetry O2 Sat by Pulse Oximetry [ Anterior Bilateral] O2 Sat by Pulse Oximetry [ Bases] O2 Sat by Pulse Oximetry [ Bilateral Bases ] O2 Sat by Pulse Oximetry [ Bilateral Throughout] 08/21/21 08/21/21 08/21/21 06:15 06:31 06:45 Temperature Pulse Rate 70 70 70 Pulse Rate [ From Monitor] Respiratory 13 12 10 L Rate Blood Pressure 184/85 171/80 171/80 O2 Sat by Pulse 100 100 100 Oximetry O2 Sat by Pulse Oximetry [ Anterior Bilateral] O2 Sat by Pulse Oximetry [ Bases] O2 Sat by Pulse Oximetry [ Bilateral Bases ] O2 Sat by Pulse Oximetry [ Bilateral Throughout] 08/21/21 08/21/21 08/21/21 06:47 07:01 07:11 Temperature Pulse Rate 70 70 70 Pulse Rate [ From Monitor] Respiratory 9 L 12 Rate Blood Pressure 146/93 171/80 87/53 O2 Sat by Pulse 100 100 Oximetry O2 Sat by Pulse Oximetry [ Anterior Bilateral] O2 Sat by Pulse Oximetry [ Bases] O2 Sat by Pulse Oximetry [ Bilateral Bases ] O2 Sat by Pulse Oximetry [ Bilateral Throughout] 08/21/21 08/21/21 08/21/21 07:21 07:30 07:31 Temperature 97.8 F Pulse Rate 70 70 70 Pulse Rate [ From Monitor] Respiratory 11 L 12 11 L Rate Blood Pressure 87/53 108/53 108/53 O2 Sat by Pulse 99 99 Oximetry O2 Sat by Pulse 100 Oximetry [ Anterior Bilateral] O2 Sat by Pulse 100 Oximetry [ Bases] O2 Sat by Pulse 100 Oximetry [ Bilateral Bases ] O2 Sat by Pulse 100 Oximetry [ Bilateral Throughout] 08/21/21 08/21/21 08/21/21 07:42 07:43 07:45 Temperature 98.2 F 98.1 F Pulse Rate 70 Pulse Rate [ From Monitor] Respiratory 14 Rate Blood Pressure 108/53 O2 Sat by Pulse 100 Oximetry O2 Sat by Pulse Oximetry [ Anterior Bilateral] O2 Sat by Pulse Oximetry [ Bases] O2 Sat by Pulse Oximetry [ Bilateral Bases ] O2 Sat by Pulse Oximetry [ Bilateral Throughout] 08/21/21 08/21/21 08/21/21 08:00 08:01 08:15 Temperature 98 F Pulse Rate 70 70 70 Pulse Rate [ 70 From Monitor] Respiratory 12 14 12 Rate Blood Pressure 101/44 101/44 155/61 O2 Sat by Pulse 100 99 98 Oximetry O2 Sat by Pulse Oximetry [ Anterior Bilateral] O2 Sat by Pulse Oximetry [ Bases] O2 Sat by Pulse Oximetry [ Bilateral Bases ] O2 Sat by Pulse Oximetry [ Bilateral Throughout] 08/21/21 08/21/21 08/21/21 08:24 08:30 08:31 Temperature Pulse Rate 70 70 70 Pulse Rate [ From Monitor] Respiratory 13 Rate Blood Pressure 155/57 155/61 O2 Sat by Pulse 100 100 Oximetry O2 Sat by Pulse Oximetry [ Anterior Bilateral] O2 Sat by Pulse Oximetry [ Bases] O2 Sat by Pulse Oximetry [ Bilateral Bases ] O2 Sat by Pulse Oximetry [ Bilateral Throughout] 08/21/21 08/21/21 08/21/21 08:45 09:00 09:01 Temperature Pulse Rate 70 70 70 Pulse Rate [ From Monitor] Respiratory 11 L 11 L Rate Blood Pressure 155/57 111/45 111/45 O2 Sat by Pulse 99 100 Oximetry O2 Sat by Pulse Oximetry [ Anterior Bilateral] O2 Sat by Pulse Oximetry [ Bases] O2 Sat by Pulse Oximetry [ Bilateral Bases ] O2 Sat by Pulse Oximetry [ Bilateral Throughout] 08/21/21 08/21/21 08/21/21 09:15 09:30 09:31 Temperature Pulse Rate 70 70 70 Pulse Rate [ From Monitor] Respiratory 11 L 15 Rate Blood Pressure 111/45 118/50 118/50 O2 Sat by Pulse 100 100 Oximetry O2 Sat by Pulse Oximetry [ Anterior Bilateral] O2 Sat by Pulse Oximetry [ Bases] O2 Sat by Pulse Oximetry [ Bilateral Bases ] O2 Sat by Pulse Oximetry [ Bilateral Throughout] 08/21/21 08/21/2108/21/22 09:45 10:00 10:15 Temperature Pulse Rate 70 107 H 70 Pulse Rate [ From Monitor] Respiratory 13 14 9 L Rate Blood Pressure 124/47 107/53 110/75 O2 Sat by Pulse 100 100 100 Oximetry O2 Sat by Pulse Oximetry [ Anterior Bilateral] O2 Sat by Pulse Oximetry [ Bases] O2 Sat by Pulse Oximetry [ Bilateral Bases ] O2 Sat by Pulse Oximetry [ Bilateral Throughout] 08/21/21 08/21/21 08/21/21 10:30 10:31 10:45 Temperature Pulse Rate 70 70 70 Pulse Rate [ From Monitor] Respiratory 14 13 Rate Blood Pressure 117/67 117/67 127/93 O2 Sat by Pulse 99 99 Oximetry O2 Sat by Pulse Oximetry [ Anterior Bilateral] O2 Sat by Pulse Oximetry [ Bases] O2 Sat by Pulse Oximetry [ Bilateral Bases ] O2 Sat by Pulse Oximetry [ Bilateral Throughout] 08/21/21 08/21/21 08/21/21 11:00 11:01 11:10 Temperature 98.8 F Pulse Rate 70 70 40 L Pulse Rate [ From Monitor] Respiratory 16 10 L Rate Blood Pressure 100/29 100/19 102/48 O2 Sat by Pulse 99 Oximetry O2 Sat by Pulse 99 Oximetry [ Anterior Bilateral] O2 Sat by Pulse 100 Oximetry [ Bases] O2 Sat by Pulse 100 Oximetry [ Bilateral Bases ] O2 Sat by Pulse 98 Oximetry [ Bilateral Throughout] 08/21/21 08/21/21 08/21/21 11:15 11:30 11:45 Temperature Pulse Rate 70 70 70 Pulse Rate [ From Monitor] Respiratory 13 15 8 L Rate Blood Pressure 97/44 97/43 86/59 O2 Sat by Pulse 99 98 100 Oximetry O2 Sat by Pulse Oximetry [ Anterior Bilateral] O2 Sat by Pulse Oximetry [ Bases] O2 Sat by Pulse Oximetry [ Bilateral Bases ] O2 Sat by Pulse Oximetry [ Bilateral Throughout] 08/21/21 08/21/21 08/21/21 11:58 11:59 12:00 Temperature 98.4 F 98.4 F Pulse Rate 70 Pulse Rate [ 70 From Monitor] Respiratory 12 Rate Blood Pressure O2 Sat by Pulse 100 Oximetry O2 Sat by Pulse Oximetry [ Anterior Bilateral] O2 Sat by Pulse Oximetry [ Bases] O2 Sat by Pulse Oximetry [ Bilateral Bases ] O2 Sat by Pulse Oximetry [ Bilateral Throughout] 0108/21/21 08/21/21 12:01 12:04 12:06 Temperature Pulse Rate 70 70 Pulse Rate [ From Monitor] Respiratory 11 L Rate Blood Pressure 126/48 126/48 O2 Sat by Pulse 99 100 100 Oximetry O2 Sat by Pulse Oximetry [ Anterior Bilateral] O2 Sat by Pulse Oximetry [ Bases] O2 Sat by Pulse Oximetry [ Bilateral Bases ] O2 Sat by Pulse Oximetry [ Bilateral Throughout] 08/21/21 08/21/21 08/21/21 12:15 12:30 12:45 Temperature Pulse Rate 70 70 70 Pulse Rate [ From Monitor] Respiratory 10 L 12 11 L Rate Blood Pressure 142/52 139/52 139/52 O2 Sat by Pulse 99 99 100 Oximetry O2 Sat by Pulse Oximetry [ Anterior Bilateral] O2 Sat by Pulse Oximetry [ Bases] O2 Sat by Pulse Oximetry [ Bilateral Bases ] O2 Sat by Pulse Oximetry [ Bilateral Throughout] 08/21/21 08/21/21 08/21/21 13:00 13:15 13:31 Temperature Pulse Rate 70 70 70 Pulse Rate [ From Monitor] Respiratory 12 11 L 11 L Rate Blood Pressure 120/47 120/47 120/47 O2 Sat by Pulse 99 99 99 Oximetry O2 Sat by Pulse Oximetry [ Anterior Bilateral] O2 Sat by Pulse Oximetry [ Bases] O2 Sat by Pulse Oximetry [ Bilateral Bases ] O2 Sat by Pulse Oximetry [ Bilateral Throughout] 08/21/21 08/21/21 08/21/21 13:45 14:00 14:15 Temperature Pulse Rate 70 70 70 Pulse Rate [ From Monitor] Respiratory 12 15 12 Rate Blood Pressure 120/47 146/58 146/58 O2 Sat by Pulse 99 100 100 Oximetry O2 Sat by Pulse Oximetry [ Anterior Bilateral] O2 Sat by Pulse Oximetry [ Bases] O2 Sat by Pulse Oximetry [ Bilateral Bases ] O2 Sat by Pulse Oximetry [ Bilateral Throughout] 08/21/21 14:28 Temperature Pulse Rate 70 Pulse Rate [ From Monitor] Respiratory Rate Blood Pressure 146/58 O2 Sat by Pulse Oximetry O2 Sat by Pulse Oximetry [ Anterior Bilateral] O2 Sat by Pulse Oximetry [ Bases] O2 Sat by Pulse Oximetry [ Bilateral Bases ] O2 Sat by Pulse Oximetry [ Bilateral Throughout] Constitutional: alert, other (intubated ) Eyes: non-icteric ENT: other (orally intubated, lips swollen) Neck: supple Effort: normal Ascultation: Bilateral: clear Percussion: Bilateral: not dull Cardiovascular: regular rate and rhythm (no mrg) Gastrointestinal: normoactive bowel sounds, soft, non-tender, non-distended Integumentary: normal Extremities: no cyanosis, no edema, pink and warm Neurologic: other (follows commands) Psychiatric: other (unable to assess) CBC and BMP: 08/21/21 08:15 08/21/21 08:15 ABG, PT/INR, D-dimer: ABG ABG pH 7.508 (7.320-7.450) H 08/20/21 04:25 POC ABG pCO2 35.1 mmHg (32.0-48.0) 08/20/21 04:25 ABG pCO2 41.2 mm Hg 08/09/21 04:30 POC ABG pO2 139.8 mmHg (83-108) H 08/20/21 04:25 ABG pO2 91.5 mm Hg (80.0-90.0) H 08/09/21 04:30 POC ABG HCO3 27.3 08/20/21 04:25 ABG O2 Saturation 99.1 (0-100) 08/20/21 04:25 PT/INR, D-dimer PT 14.2 Sec. (12.2-14.9) 08/06/21 16:35 INR 0.99 (0.87-1.13) 08/06/21 16:35 Abnormal lab findings: Abnormal Labs 08/05/21 08/05/21 08/05/21 15:55 15:55 18:50 WBC 3.7 L RBC 2.98 L Hgb 7.5 L Hct 23.8 L MCH 25 L RDW 18.9 H Plt Count 134 L Lymph % (Auto) [place] % (Auto) Lymph # (Auto) Seg Neutrophils % Seg Neuts % (Manual) Lymphocytes % (Manual) Monocytes % (Manual) 18.0 H Eosinophils % (Manual) Basophils % (Manual) 2.0 H Seg Neutrophils # Seg Neutrophils # Man Lymphocytes # (Manual) 0.9 L Monocytes # (Manual) APTT ABG pH 7.523 H POC ABG pCO2 POC ABG pO2 ABG pO2 47.1 L ABG HCO3 34.6 H ABG O2 Saturation 85.4 L ABG Base Excess 10.8 H ABG Hemoglobin 7.3 L ABG Oxyhemoglobin ABG Sodium ABG Potassium ABG Chloride ABG Glucose Oxyhemoglobin 83.6 L Carboxyhemoglobin Sodium Potassium 2.7 L* Chloride 93.8 L Carbon Dioxide 33 H BUN Creatinine 2.8 H Glucose 124 H POC Glucose Calcium 8.2 L Phosphorus ALT < 5 L Troponin T 0.126 H* Total Protein Albumin 3.5 L Triglycerides 202 H HDL Cholesterol 32 L TSH Arterial Blood Glucose Crossmatch 08/05/21 08/05/21 08/06/21 18:56 Unknown 04:20 WBC RBC Hgb Hct MCH RDW Plt Count Lymph % (Auto) [place] % (Auto) Lymph # (Auto) Seg Neutrophils % Seg Neuts % (Manual) Lymphocytes % (Manual) Monocytes % (Manual) Eosinophils % (Manual) Basophils % (Manual) Seg Neutrophils # Seg Neutrophils # Man Lymphocytes # (Manual) Monocytes # (Manual) APTT ABG pH 7.575 H 7.606 H* POC ABG pCO2 POC ABG pO2 ABG pO2 142.9 H 111.2 H ABG HCO3 33.2 H 33.6 H ABG O2 Saturation ABG Base Excess 10.4 H 11.2 H ABG Hemoglobin 6.6 L 6.8 L ABG Oxyhemoglobin ABG Sodium ABG Potassium ABG Chloride ABG Glucose Oxyhemoglobin Carboxyhemoglobin Sodium Potassium Chloride Carbon Dioxide BUN Creatinine Glucose POC Glucose Calcium Phosphorus ALT Troponin T 0.183 H* D Total Protein Albumin Triglycerides HDL Cholesterol TSH Arterial Blood Glucose Crossmatch 08/06/21 08/06/21 08/06/21 04:29 04:29 04:29 WBC 2.5 L RBC 2.70 L Hgb 6.8 L Hct 21.3 L MCH 25 L RDW 18.1 H Plt Count 126 L Lymph % (Auto) 45.0 H [place] % (Auto) 13.6 H Lymph # (Auto) 1.1 L Seg Neutrophils % 37.3 L Seg Neuts % (Manual) Lymphocytes % (Manual) Monocytes % (Manual) Eosinophils % (Manual) Basophils % (Manual) Seg Neutrophils # 0.9 L Seg Neutrophils # Man Lymphocytes # (Manual) Monocytes # (Manual) APTT 38.8 H ABG pH POC ABG pCO2 POC ABG pO2 ABG pO2 ABG HCO3 ABG O2 Saturation ABG Base Excess ABG Hemoglobin ABG Oxyhemoglobin ABG Sodium ABG Potassium ABG Chloride ABG Glucose Oxyhemoglobin Carboxyhemoglobin Sodium 136 L Potassium 3.0 L Chloride 92.6 L Carbon Dioxide 32 H BUN Creatinine 3.8 H Glucose POC Glucose Calcium Phosphorus ALT Troponin T Total Protein 5.8 L Albumin 3.1 L Triglycerides HDL Cholesterol TSH Arterial Blood Glucose Crossmatch 08/06/21 08/06/21 08/06/21 05:30 07:26 07:26 WBC RBC Hgb 7.0 L Hct 22.5 L MCH RDW Plt Count 127 L Lymph % (Auto) [place] % (Auto) Lymph # (Auto) Seg Neutrophils % Seg Neuts % (Manual) Lymphocytes % (Manual) Monocytes % (Manual) Eosinophils % (Manual) Basophils % (Manual) Seg Neutrophils # Seg Neutrophils # Man Lymphocytes # (Manual) Monocytes # (Manual) APTT 37.1 H ABG pH POC ABG pCO2 POC ABG pO2 ABG pO2 ABG HCO3 ABG O2 Saturation ABG Base Excess ABG Hemoglobin ABG Oxyhemoglobin ABG Sodium ABG Potassium ABG Chloride ABG Glucose Oxyhemoglobin Carboxyhemoglobin Sodium Potassium Chloride Carbon Dioxide BUN Creatinine Glucose POC Glucose Calcium Phosphorus ALT Troponin T Total Protein Albumin Triglycerides HDL Cholesterol TSH Arterial Blood Glucose Crossmatch See Detail 08/06/21 08/06/21 08/06/21 08:06 14:50 16:03 WBC RBC Hgb Hct MCH RDW Plt Count Lymph % (Auto) [place] % (Auto) Lymph # (Auto) Seg Neutrophils % Seg Neuts % (Manual) Lymphocytes % (Manual) Monocytes % (Manual) Eosinophils % (Manual) Basophils % (Manual) Seg Neutrophils # Seg Neutrophils # Man Lymphocytes # (Manual) Monocytes # (Manual) APTT ABG pH POC ABG pCO2 POC ABG pO2 ABG pO2 ABG HCO3 ABG O2 Saturation ABG Base Excess ABG Hemoglobin ABG Oxyhemoglobin ABG Sodium ABG Potassium ABG Chloride ABG Glucose Oxyhemoglobin Carboxyhemoglobin Sodium Potassium 3.1 L Chloride 92.4 L Carbon Dioxide 33 H BUN Creatinine 3.9 H Glucose POC Glucose 59 L 121 H Calcium Phosphorus ALT Troponin T Total Protein Albumin Triglycerides HDL Cholesterol TSH Arterial Blood Glucose Crossmatch 08/06/21 08/06/21 08/06/21 16:35 16:35 17:31 WBC 4.2 L RBC 3.27 L Hgb 8.5 L Hct 26.8 L MCH 26 L RDW 18.7 H Plt Count 124 L Lymph % (Auto) [place] % (Auto) 15.5 H Lymph # (Auto) 0.8 L Seg Neutrophils % Seg Neuts % (Manual) Lymphocytes % (Manual) Monocytes % (Manual) Eosinophils % (Manual) Basophils % (Manual) Seg Neutrophils # Seg Neutrophils # Man Lymphocytes # (Manual) Monocytes # (Manual) APTT ABG pH POC ABG pCO2 POC ABG pO2 ABG pO2 ABG HCO3 ABG O2 Saturation ABG Base Excess ABG Hemoglobin ABG Oxyhemoglobin ABG Sodium ABG Potassium ABG Chloride ABG Glucose Oxyhemoglobin Carboxyhemoglobin Sodium 133 L Potassium Chloride 93.2 L Carbon Dioxide BUN 21 H Creatinine 4.6 H Glucose POC Glucose 62 L Calcium 8.3 L Phosphorus ALT Troponin T Total Protein 6.2 L Albumin 3.2 L Triglycerides HDL Cholesterol TSH Arterial Blood Glucose Crossmatch 08/06/21 08/06/21 08/07/21 18:14 18:22 04:00 WBC 1.0 L* RBC 2.67 L Hgb 7.0 L Hct 21.8 L MCH 26 L RDW 18.7 H Plt Count 82 L Lymph % (Auto) [place] % (Auto) Lymph # (Auto) Seg Neutrophils % Seg Neuts % (Manual) 16.0 L Lymphocytes % (Manual) 60.0 H Monocytes % (Manual) Eosinophils % (Manual) 11.0 H Basophils % (Manual) 4.0 H Seg Neutrophils # Seg Neutrophils # Man 0.2 L Lymphocytes # (Manual) 0.6 L Monocytes # (Manual) APTT ABG pH 7.565 H POC ABG pCO2 POC ABG pO2 ABG pO2 113.3 H ABG HCO3 29.4 H ABG O2 Saturation ABG Base Excess 6.9 H ABG Hemoglobin 8.3 L ABG Oxyhemoglobin ABG Sodium ABG Potassium ABG Chloride ABG Glucose Oxyhemoglobin Carboxyhemoglobin Sodium Potassium Chloride Carbon Dioxide BUN Creatinine Glucose POC Glucose 148 H Calcium Phosphorus ALT Troponin T Total Protein Albumin Triglycerides HDL Cholesterol TSH Arterial Blood Glucose Crossmatch 08/07/21 08/07/21 08/07/21 04:00 04:25 08:30 WBC RBC Hgb Hct MCH RDW Plt Count Lymph % (Auto) [place] % (Auto) Lymph # (Auto) Seg Neutrophils % Seg Neuts % (Manual) Lymphocytes % (Manual) Monocytes % (Manual) Eosinophils % (Manual) Basophils % (Manual) Seg Neutrophils # Seg Neutrophils # Man Lymphocytes # (Manual) Monocytes # (Manual) APTT ABG pH 7.609 H* 7.479 H POC ABG pCO2 POC ABG pO2 ABG pO2 121.4 H 130.2 H ABG HCO3 28.5 H 30.3 H ABG O2 Saturation ABG Base Excess 7.2 H 6.2 H ABG Hemoglobin 10.7 L 8.1 L ABG Oxyhemoglobin ABG Sodium ABG Potassium ABG Chloride ABG Glucose Oxyhemoglobin Carboxyhemoglobin Sodium 133 L Potassium 3.2 L D Chloride 93.9 L Carbon Dioxide BUN 23 H Creatinine 4.3 H Glucose POC Glucose Calcium 8.1 L Phosphorus ALT Troponin T Total Protein Albumin Triglycerides HDL Cholesterol TSH Arterial Blood Glucose Crossmatch 08/07/21 08/07/21 08/07/21 13:18 13:30 15:51 WBC RBC Hgb Hct MCH RDW Plt Count Lymph % (Auto) [place] % (Auto) Lymph # (Auto) Seg Neutrophils % Seg Neuts % (Manual) Lymphocytes % (Manual) Monocytes % (Manual) Eosinophils % (Manual) Basophils % (Manual) Seg Neutrophils # Seg Neutrophils # Man Lymphocytes # (Manual) Monocytes # (Manual) APTT ABG pH POC ABG pCO2 POC ABG pO2 ABG pO2 ABG HCO3 ABG O2 Saturation ABG Base Excess ABG Hemoglobin ABG Oxyhemoglobin ABG Sodium ABG Potassium ABG Chloride ABG Glucose Oxyhemoglobin Carboxyhemoglobin Sodium Potassium Chloride Carbon Dioxide BUN Creatinine Glucose POC Glucose 67 L 58 L Calcium Phosphorus ALT Troponin T Total Protein Albumin Triglycerides HDL Cholesterol TSH 7.070 H Arterial Blood Glucose Crossmatch 08/08/21 08/08/21 08/08/21 04:19 04:26 04:26 WBC RBC Hgb 6.8 L Hct 21.6 L MCH RDW Plt Count 91 L Lymph % (Auto) [place] % (Auto) Lymph # (Auto) Seg Neutrophils % Seg Neuts % (Manual) Lymphocytes % (Manual) Monocytes % (Manual) Eosinophils % (Manual) Basophils % (Manual) Seg Neutrophils # Seg Neutrophils # Man Lymphocytes # (Manual) Monocytes # (Manual) APTT ABG pH 7.545 H POC ABG pCO2 POC ABG pO2 ABG pO2 136.1 H ABG HCO3 27.3 H ABG O2 Saturation ABG Base Excess 4.5 H ABG Hemoglobin 6.9 L ABG Oxyhemoglobin ABG Sodium ABG Potassium ABG Chloride ABG Glucose Oxyhemoglobin Carboxyhemoglobin Sodium 132 L Potassium Chloride 93.5 L Carbon Dioxide BUN Creatinine 3.7 H Glucose POC Glucose Calcium Phosphorus ALT Troponin T Total Protein Albumin Triglycerides HDL Cholesterol TSH Arterial Blood Glucose Crossmatch 08/08/21 08/08/21 08/08/21 09:45 12:23 18:51 WBC RBC Hgb Hct MCH RDW Plt Count Lymph % (Auto) [place] % (Auto) Lymph # (Auto) Seg Neutrophils % Seg Neuts % (Manual) Lymphocytes % (Manual) Monocytes % (Manual) Eosinophils % (Manual) Basophils % (Manual) Seg Neutrophils # Seg Neutrophils # Man Lymphocytes # (Manual) Monocytes # (Manual) APTT ABG pH 7.471 H POC ABG pCO2 POC ABG pO2 71.1 L ABG pO2 ABG HCO3 ABG O2 Saturation ABG Base Excess ABG Hemoglobin ABG Oxyhemoglobin ABG Sodium 128.9 L ABG Potassium ABG Chloride 95.0 L ABG Glucose 64 L Oxyhemoglobin Carboxyhemoglobin Sodium Potassium Chloride Carbon Dioxide BUN Creatinine Glucose POC Glucose 58 L 68 L Calcium Phosphorus ALT Troponin T Total Protein Albumin Triglycerides HDL Cholesterol TSH Arterial Blood Glucose 64 L Crossmatch 08/09/21 08/09/21 08/09/21 04:30 04:33 04:33 WBC 2.4 L RBC 3.16 L Hgb 8.3 L Hct 26.5 L MCH 26 L RDW 18.3 H Plt Count 113 L Lymph % (Auto) [place] % (Auto) Lymph # (Auto) Seg Neutrophils % Seg Neuts % (Manual) Lymphocytes % (Manual) Monocytes % (Manual) Eosinophils % (Manual) Basophils % (Manual) Seg Neutrophils # Seg Neutrophils # Man Lymphocytes # (Manual) Monocytes # (Manual) APTT ABG pH POC ABG pCO2 POC ABG pO2 ABG pO2 91.5 H ABG HCO3 26.6 H ABG O2 Saturation ABG Base Excess ABG Hemoglobin 9.0 L ABG Oxyhemoglobin ABG Sodium ABG Potassium ABG Chloride ABG Glucose Oxyhemoglobin Carboxyhemoglobin Sodium 129 L Potassium Chloride 91.9 L Carbon Dioxide BUN 22 H Creatinine 4.7 H Glucose POC Glucose Calcium Phosphorus ALT Troponin T Total Protein Albumin Triglycerides HDL Cholesterol TSH Arterial Blood Glucose Crossmatch 08/10/21 08/10/21 08/10/21 04:00 04:00 04:55 WBC 3.3 L RBC 3.32 L Hgb 8.9 L Hct 27.6 L MCH 27 L RDW 18.3 H Plt Count Lymph % (Auto) [place] % (Auto) Lymph # (Auto) Seg Neutrophils % Seg Neuts % (Manual) Lymphocytes % (Manual) Monocytes % (Manual) 9.0 H Eosinophils % (Manual) Basophils % (Manual) Seg Neutrophils # Seg Neutrophils # Man Lymphocytes # (Manual) 0.6 L Monocytes # (Manual) APTT ABG pH POC ABG pCO2 POC ABG pO2 ABG pO2 ABG HCO3 ABG O2 Saturation ABG Base Excess ABG Hemoglobin 9.6 L ABG Oxyhemoglobin ABG Sodium 120.3 L ABG Potassium 5.2 H ABG Chloride 88.0 L ABG Glucose Oxyhemoglobin Carboxyhemoglobin 0.4 L Sodium 123 L Potassium 5.5 H D Chloride 84.8 L Carbon Dioxide BUN 30 H Creatinine 5.5 H Glucose 139 H POC Glucose Calcium Phosphorus 5.90 H ALT Troponin T Total Protein Albumin Triglycerides HDL Cholesterol TSH Arterial Blood Glucose Crossmatch 08/10/21 08/11/21 08/11/21 12:17 04:00 05:53 WBC RBC 3.50 L Hgb 9.2 L Hct 29.0 L MCH 26 L RDW 18.4 H Plt Count Lymph % (Auto) [place] % (Auto) Lymph # (Auto) Seg Neutrophils % Seg Neuts % (Manual) 76.0 H Lymphocytes % (Manual) 8.0 L Monocytes % (Manual) 13.0 H Eosinophils % (Manual) Basophils % (Manual) Seg Neutrophils # Seg Neutrophils # Man Lymphocytes # (Manual) 0.6 L Monocytes # (Manual) 0.9 H APTT ABG pH POC ABG pCO2 POC ABG pO2 ABG pO2 ABG HCO3 ABG O2 Saturation ABG Base Excess ABG Hemoglobin ABG Oxyhemoglobin ABG Sodium ABG Potassium ABG Chloride ABG Glucose Oxyhemoglobin Carboxyhemoglobin Sodium 128 L Potassium Chloride 90.3 L Carbon Dioxide BUN 24 H Creatinine 4.3 H Glucose 135 H POC Glucose 142 H Calcium Phosphorus ALT Troponin T Total Protein Albumin Triglycerides HDL Cholesterol TSH Arterial Blood Glucose Crossmatch 08/11/21 08/12/2108/12/22 16:39 05:23 05:23 WBC RBC 3.20 L Hgb 8.8 L Hct 26.7 L MCH RDW 18.6 H Plt Count Lymph % (Auto) [place] % (Auto) Lymph # (Auto) Seg Neutrophils % Seg Neuts % (Manual) Lymphocytes % (Manual) Monocytes % (Manual) Eosinophils % (Manual) Basophils % (Manual) Seg Neutrophils # Seg Neutrophils # Man Lymphocytes # (Manual) Monocytes # (Manual) APTT ABG pH POC ABG pCO2 POC ABG pO2 ABG pO2 ABG HCO3 ABG O2 Saturation ABG Base Excess ABG Hemoglobin ABG Oxyhemoglobin ABG Sodium ABG Potassium ABG Chloride ABG Glucose Oxyhemoglobin Carboxyhemoglobin Sodium 125 L Potassium Chloride 86.6 L Carbon Dioxide 21 L BUN 34 H Creatinine 5.0 H Glucose 111 H POC Glucose 112 H Calcium Phosphorus ALT Troponin T Total Protein Albumin Triglycerides HDL Cholesterol TSH Arterial Blood Glucose Crossmatch 08/12/21 08/12/21 08/13/21 12:18 17:56 06:01 WBC RBC Hgb Hct MCH RDW Plt Count Lymph % (Auto) [place] % (Auto) Lymph # (Auto) Seg Neutrophils % Seg Neuts % (Manual) Lymphocytes % (Manual) Monocytes % (Manual) Eosinophils % (Manual) Basophils % (Manual) Seg Neutrophils # Seg Neutrophils # Man Lymphocytes # (Manual) Monocytes # (Manual) APTT ABG pH POC ABG pCO2 POC ABG pO2 ABG pO2 ABG HCO3 ABG O2 Saturation ABG Base Excess ABG Hemoglobin ABG Oxyhemoglobin ABG Sodium ABG Potassium ABG Chloride ABG Glucose Oxyhemoglobin Carboxyhemoglobin Sodium Potassium Chloride Carbon Dioxide BUN Creatinine Glucose POC Glucose 140 H 119 H 110 H Calcium Phosphorus ALT Troponin T Total Protein Albumin Triglycerides HDL Cholesterol TSH Arterial Blood Glucose Crossmatch 08/13/21 08/13/21 08/14/21 Unknown Unknown 04:00 WBC RBC Hgb Hct MCH RDW Plt Count Lymph % (Auto) [place] % (Auto) Lymph # (Auto) Seg Neutrophils % Seg Neuts % (Manual) Lymphocytes % (Manual) Monocytes % (Manual) Eosinophils % (Manual) Basophils % (Manual) Seg Neutrophils # Seg Neutrophils # Man Lymphocytes # (Manual) Monocytes # (Manual) APTT ABG pH POC ABG pCO2 POC ABG pO2 ABG pO2 ABG HCO3 ABG O2 Saturation ABG Base Excess ABG Hemoglobin ABG Oxyhemoglobin ABG Sodium ABG Potassium ABG Chloride ABG Glucose Oxyhemoglobin Carboxyhemoglobin Sodium 129 L 128 L Potassium Chloride 90.1 L 89.7 L Carbon Dioxide BUN 24 H 36 H Creatinine 3.8 H 4.2 H Glucose POC Glucose Calcium Phosphorus ALT Troponin T Total Protein Albumin Triglycerides 399 H HDL Cholesterol TSH Arterial Blood Glucose Crossmatch 08/14/21 08/14/21 08/14/21 05:44 11:57 13:12 WBC RBC Hgb Hct MCH RDW Plt Count Lymph % (Auto) [place] % (Auto) Lymph # (Auto) Seg Neutrophils % Seg Neuts % (Manual) Lymphocytes % (Manual) Monocytes % (Manual) Eosinophils % (Manual) Basophils % (Manual) Seg Neutrophils # Seg Neutrophils # Man Lymphocytes # (Manual) Monocytes # (Manual) APTT ABG pH 7.498 H POC ABG pCO2 29.1 L POC ABG pO2 61.8 L ABG pO2 ABG HCO3 ABG O2 Saturation ABG Base Excess ABG Hemoglobin 8.6 L ABG Oxyhemoglobin 91.9 L ABG Sodium 126.4 L ABG Potassium ABG Chloride 92.0 L ABG Glucose 99 H Oxyhemoglobin Carboxyhemoglobin Sodium Potassium Chloride Carbon Dioxide BUN Creatinine Glucose POC Glucose 111 H 111 H Calcium Phosphorus ALT Troponin T Total Protein Albumin Triglycerides HDL Cholesterol TSH Arterial Blood Glucose 99 H Crossmatch 08/14/21 08/15/21 08/15/21 Unknown 04:34 04:34 WBC RBC 3.14 L 2.79 L Hgb 8.5 L 7.8 L Hct 25.5 L 22.8 L MCH 27 L RDW 19.1 H 18.8 H Plt Count Lymph % (Auto) [place] % (Auto) Lymph # (Auto) Seg Neutrophils % Seg Neuts % (Manual) Lymphocytes % (Manual) Monocytes % (Manual) Eosinophils % (Manual) Basophils % (Manual) Seg Neutrophils # Seg Neutrophils # Man Lymphocytes # (Manual) Monocytes # (Manual) APTT ABG pH POC ABG pCO2 POC ABG pO2 ABG pO2 ABG HCO3 ABG O2 Saturation ABG Base Excess ABG Hemoglobin ABG Oxyhemoglobin ABG Sodium ABG Potassium ABG Chloride ABG Glucose Oxyhemoglobin Carboxyhemoglobin Sodium 128 L Potassium Chloride 88.8 L Carbon Dioxide BUN 44 H Creatinine 5.1 H Glucose POC Glucose Calcium Phosphorus ALT Troponin T Total Protein Albumin Triglycerides HDL Cholesterol TSH Arterial Blood Glucose Crossmatch 08/15/21 08/15/21 08/15/21 05:22 10:56 16:52 WBC RBC Hgb Hct MCH RDW Plt Count Lymph % (Auto) [place] % (Auto) Lymph # (Auto) Seg Neutrophils % Seg Neuts % (Manual) Lymphocytes % (Manual) Monocytes % (Manual) Eosinophils % (Manual) Basophils % (Manual) Seg Neutrophils # Seg Neutrophils # Man Lymphocytes # (Manual) Monocytes # (Manual) APTT ABG pH 7.496 H POC ABG pCO2 29.8 L POC ABG pO2 ABG pO2 ABG HCO3 ABG O2 Saturation ABG Base Excess ABG Hemoglobin 7.4 L ABG Oxyhemoglobin ABG Sodium 124.3 L ABG Potassium ABG Chloride 92.0 L ABG Glucose Oxyhemoglobin Carboxyhemoglobin Sodium Potassium Chloride Carbon Dioxide BUN Creatinine Glucose POC Glucose 111 H 115 H Calcium Phosphorus ALT Troponin T Total Protein Albumin Triglycerides HDL Cholesterol TSH Arterial Blood Glucose Crossmatch 08/16/21 08/16/21 08/16/21 04:00 04:00 10:57 WBC RBC 2.96 L Hgb 8.0 L Hct 23.9 L MCH 27 L RDW 18.6 H Plt Count Lymph % (Auto) [place] % (Auto) Lymph # (Auto) Seg Neutrophils % Seg Neuts % (Manual) Lymphocytes % (Manual) Monocytes % (Manual) Eosinophils % (Manual) Basophils % (Manual) Seg Neutrophils # Seg Neutrophils # Man Lymphocytes # (Manual) Monocytes # (Manual) APTT ABG pH POC ABG pCO2 POC ABG pO2 ABG pO2 ABG HCO3 ABG O2 Saturation ABG Base Excess ABG Hemoglobin ABG Oxyhemoglobin ABG Sodium ABG Potassium ABG Chloride ABG Glucose Oxyhemoglobin Carboxyhemoglobin Sodium 132 L Potassium Chloride 93.1 L Carbon Dioxide BUN 26 H Creatinine 3.9 H Glucose 119 H POC Glucose 112 H Calcium Phosphorus ALT Troponin T Total Protein Albumin Triglycerides HDL Cholesterol TSH Arterial Blood Glucose Crossmatch 08/16/21 08/17/21 08/17/21 23:20 04:00 04:00 WBC RBC 3.07 L Hgb 8.1 L Hct 25.0 L MCH 26 L RDW 19.3 H Plt Count Lymph % (Auto) [place] % (Auto) Lymph # (Auto) Seg Neutrophils % Seg Neuts % (Manual) Lymphocytes % (Manual) Monocytes % (Manual) Eosinophils % (Manual) Basophils % (Manual) Seg Neutrophils # Seg Neutrophils # Man Lymphocytes # (Manual) Monocytes # (Manual) APTT ABG pH POC ABG pCO2 POC ABG pO2 ABG pO2 ABG HCO3 ABG O2 Saturation ABG Base Excess ABG Hemoglobin ABG Oxyhemoglobin ABG Sodium ABG Potassium ABG Chloride ABG Glucose Oxyhemoglobin Carboxyhemoglobin Sodium 135 L Potassium Chloride 97.4 L Carbon Dioxide BUN 20 H Creatinine 3.0 H Glucose 171 H POC Glucose 125 H Calcium Phosphorus ALT Troponin T Total Protein Albumin Triglycerides HDL Cholesterol TSH Arterial Blood Glucose Crossmatch 08/17/21 08/17/21 08/17/21 05:09 05:12 11:46 WBC RBC Hgb Hct MCH RDW Plt Count Lymph % (Auto) [place] % (Auto) Lymph # (Auto) Seg Neutrophils % Seg Neuts % (Manual) Lymphocytes % (Manual) Monocytes % (Manual) Eosinophils % (Manual) Basophils % (Manual) Seg Neutrophils # Seg Neutrophils # Man Lymphocytes # (Manual) Monocytes # (Manual) APTT ABG pH 7.579 H POC ABG pCO2 27.0 L POC ABG pO2 139.0 H ABG pO2 ABG HCO3 ABG O2 Saturation ABG Base Excess ABG Hemoglobin 8.1 L ABG Oxyhemoglobin 98.3 H ABG Sodium 132.1 L ABG Potassium ABG Chloride ABG Glucose 160 H Oxyhemoglobin Carboxyhemoglobin Sodium Potassium Chloride Carbon Dioxide BUN Creatinine Glucose POC Glucose 155 H 170 H Calcium Phosphorus ALT Troponin T Total Protein Albumin Triglycerides HDL Cholesterol TSH Arterial Blood Glucose 160 H Crossmatch 08/17/21 08/18/21 08/18/21 17:41 00:21 04:00 WBC RBC 2.82 L Hgb 7.5 L Hct 22.7 L MCH 27 L RDW 18.9 H Plt Count Lymph % (Auto) [place] % (Auto) Lymph # (Auto) Seg Neutrophils % Seg Neuts % (Manual) Lymphocytes % (Manual) Monocytes % (Manual) Eosinophils % (Manual) Basophils % (Manual) Seg Neutrophils # Seg Neutrophils # Man Lymphocytes # (Manual) Monocytes # (Manual) APTT ABG pH POC ABG pCO2 POC ABG pO2 ABG pO2 ABG HCO3 ABG O2 Saturation ABG Base Excess ABG Hemoglobin ABG Oxyhemoglobin ABG Sodium ABG Potassium ABG Chloride ABG Glucose Oxyhemoglobin Carboxyhemoglobin Sodium Potassium Chloride Carbon Dioxide BUN Creatinine Glucose POC Glucose 150 H 152 H Calcium Phosphorus ALT Troponin T Total Protein Albumin Triglycerides HDL Cholesterol TSH Arterial Blood Glucose Crossmatch 08/18/21 08/18/21 08/18/21 04:00 05:38 11:58 WBC RBC Hgb Hct MCH RDW Plt Count Lymph % (Auto) [place] % (Auto) Lymph # (Auto) Seg Neutrophils % Seg Neuts % (Manual) Lymphocytes % (Manual) Monocytes % (Manual) Eosinophils % (Manual) Basophils % (Manual) Seg Neutrophils # Seg Neutrophils # Man Lymphocytes # (Manual) Monocytes # (Manual) APTT ABG pH POC ABG pCO2 POC ABG pO2 ABG pO2 ABG HCO3 ABG O2 Saturation ABG Base Excess ABG Hemoglobin ABG Oxyhemoglobin ABG Sodium ABG Potassium ABG Chloride ABG Glucose Oxyhemoglobin Carboxyhemoglobin Sodium 132 L Potassium Chloride 94.8 L Carbon Dioxide BUN 36 H Creatinine 4.0 H Glucose 168 H POC Glucose 158 H 139 H Calcium Phosphorus ALT Troponin T Total Protein Albumin Triglycerides HDL Cholesterol TSH Arterial Blood Glucose Crossmatch 08/18/21 08/18/21 08/19/21 16:17 23:11 04:00 WBC RBC 3.09 L Hgb 8.2 L Hct 25.0 L MCH 27 L RDW 19.0 H Plt Count 506 H Lymph % (Auto) [place] % (Auto) Lymph # (Auto) Seg Neutrophils % Seg Neuts % (Manual) Lymphocytes % (Manual) Monocytes % (Manual) Eosinophils % (Manual) Basophils % (Manual) Seg Neutrophils # Seg Neutrophils # Man Lymphocytes # (Manual) Monocytes # (Manual) APTT ABG pH POC ABG pCO2 POC ABG pO2 ABG pO2 ABG HCO3 ABG O2 Saturation ABG Base Excess ABG Hemoglobin ABG Oxyhemoglobin ABG Sodium ABG Potassium ABG Chloride ABG Glucose Oxyhemoglobin Carboxyhemoglobin Sodium Potassium Chloride Carbon Dioxide BUN Creatinine Glucose POC Glucose 126 H 170 H Calcium Phosphorus ALT Troponin T Total Protein Albumin Triglycerides HDL Cholesterol TSH Arterial Blood Glucose Crossmatch 08/19/21 08/19/21 08/19/21 04:00 05:17 12:34 WBC RBC Hgb Hct MCH RDW Plt Count Lymph % (Auto) [place] % (Auto) Lymph # (Auto) Seg Neutrophils % Seg Neuts % (Manual) Lymphocytes % (Manual) Monocytes % (Manual) Eosinophils % (Manual) Basophils % (Manual) Seg Neutrophils # Seg Neutrophils # Man Lymphocytes # (Manual) Monocytes # (Manual) APTT ABG pH POC ABG pCO2 POC ABG pO2 ABG pO2 ABG HCO3 ABG O2 Saturation ABG Base Excess ABG Hemoglobin ABG Oxyhemoglobin ABG Sodium ABG Potassium ABG Chloride ABG Glucose Oxyhemoglobin Carboxyhemoglobin Sodium 135 L Potassium Chloride 94.4 L Carbon Dioxide BUN 53 H Creatinine 4.5 H Glucose 125 H POC Glucose 113 H 130 H Calcium Phosphorus ALT Troponin T Total Protein Albumin Triglycerides HDL Cholesterol TSH Arterial Blood Glucose Crossmatch 08/19/21 08/20/21 08/20/21 23:30 04:25 05:11 WBC RBC Hgb Hct MCH RDW Plt Count Lymph % (Auto) [place] % (Auto) Lymph # (Auto) Seg Neutrophils % Seg Neuts % (Manual) Lymphocytes % (Manual) Monocytes % (Manual) Eosinophils % (Manual) Basophils % (Manual) Seg Neutrophils # Seg Neutrophils # Man Lymphocytes # (Manual) Monocytes # (Manual) APTT ABG pH 7.508 H POC ABG pCO2 POC ABG pO2 139.8 H ABG pO2 ABG HCO3 ABG O2 Saturation ABG Base Excess ABG Hemoglobin 8.2 L ABG Oxyhemoglobin 98.3 H ABG Sodium 129.8 L ABG Potassium ABG Chloride 96.0 L ABG Glucose 162 H Oxyhemoglobin Carboxyhemoglobin Sodium Potassium Chloride Carbon Dioxide BUN Creatinine Glucose POC Glucose 155 H 140 H Calcium Phosphorus ALT Troponin T Total Protein Albumin Triglycerides HDL Cholesterol TSH Arterial Blood Glucose 162 H Crossmatch 08/20/21 08/20/21 08/20/21 06:08 06:08 17:43 WBC RBC 2.90 L Hgb 7.9 L Hct 23.6 L MCH 27 L RDW 18.6 H Plt Count Lymph % (Auto) [place] % (Auto) Lymph # (Auto) Seg Neutrophils % Seg Neuts % (Manual) Lymphocytes % (Manual) Monocytes % (Manual) Eosinophils % (Manual) Basophils % (Manual) Seg Neutrophils # Seg Neutrophils # Man Lymphocytes # (Manual) Monocytes # (Manual) APTT ABG pH POC ABG pCO2 POC ABG pO2 ABG pO2 ABG HCO3 ABG O2 Saturation ABG Base Excess ABG Hemoglobin ABG Oxyhemoglobin ABG Sodium ABG Potassium ABG Chloride ABG Glucose Oxyhemoglobin Carboxyhemoglobin Sodium 133 L Potassium Chloride 93.9 L Carbon Dioxide BUN 31 H Creatinine 3.3 H Glucose 148 H POC Glucose 157 H Calcium Phosphorus ALT Troponin T Total Protein Albumin Triglycerides 433 H HDL Cholesterol TSH Arterial Blood Glucose Crossmatch 08/21/21 08/21/21 08/21/21 00:21 05:12 08:15 WBC RBC Hgb Hct MCH RDW Plt Count Lymph % (Auto) [place] % (Auto) Lymph # (Auto) Seg Neutrophils % Seg Neuts % (Manual) Lymphocytes % (Manual) Monocytes % (Manual) Eosinophils % (Manual) Basophils % (Manual) Seg Neutrophils # Seg Neutrophils # Man Lymphocytes # (Manual) Monocytes # (Manual) APTT ABG pH POC ABG pCO2 POC ABG pO2 ABG pO2 ABG HCO3 ABG O2 Saturation ABG Base Excess ABG Hemoglobin ABG Oxyhemoglobin ABG Sodium ABG Potassium ABG Chloride ABG Glucose Oxyhemoglobin Carboxyhemoglobin Sodium 134 L Potassium Chloride 94.9 L Carbon Dioxide BUN 42 H Creatinine 4.0 H Glucose 208 H POC Glucose 153 H 139 H Calcium Phosphorus ALT Troponin T Total Protein Albumin Triglycerides HDL Cholesterol TSH Arterial Blood Glucose Crossmatch 08/21/21 08/21/21 08/21/21 08:15 08:18 11:34 WBC RBC 2.90 L Hgb 7.7 L Hct 23.5 L MCH 27 L RDW 18.9 H Plt Count Lymph % (Auto) [place] % (Auto) Lymph # (Auto) Seg Neutrophils % Seg Neuts % (Manual) Lymphocytes % (Manual) Monocytes % (Manual) Eosinophils % (Manual) Basophils % (Manual) Seg Neutrophils # Seg Neutrophils # Man Lymphocytes # (Manual) Monocytes # (Manual) APTT ABG pH POC ABG pCO2 POC ABG pO2 ABG pO2 ABG HCO3 ABG O2 Saturation ABG Base Excess ABG Hemoglobin ABG Oxyhemoglobin ABG Sodium ABG Potassium ABG Chloride ABG Glucose Oxyhemoglobin Carboxyhemoglobin Sodium Potassium Chloride Carbon Dioxide BUN Creatinine Glucose POC Glucose 187 H Calcium Phosphorus ALT Troponin T Total Protein 6.0 L Albumin 2.6 L Triglycerides HDL Cholesterol TSH Arterial Blood Glucose Crossmatch Allied health notes reviewed: nursing
--- NOTE | 2021-08-21 21:04 | Cat Scan Report ---
CT NECK WITHOUT CONTRAST HISTORY: Stridor COMPARISON: None. TECHNIQUE: Routine CT of the neck is performed without intravenous contrast. All CT [facility] are performed using CT dose reduction for ALARA by means of automated exposure control CONTRAST: None FINDINGS: Endotracheal tube is in appropriate position; no air surrounding the endotracheal tube above the post erior tracheal ring including subglottic these, glottis and supraglottis. Oral cavity: Oral tongue appears swollen Soft tissue in the facial region: Edematous changes are seen. Platysma is slightly thickened. Subcuta neous stranding is seen. Skull Base: No significant abnormality. Parotid, Carotid, Retropharyngeal, Prevertebral, Pharyngeal Mucosal, and [place] Monitoring Technician Spaces: No air moore rrounding the tracheostomy tube in the oral cavity Lymphatics: No lymphadenopathy. Osseous Structures: No significant abnormality Additional findings: None. IMPRESSION: Tip of the tracheostomy tube in appropriate position; however, there is now a year surrounding the tr acheostomy above the first tracheal ring: Tongue appears swollen; mild to moderate inflammatory haider es in the subcutaneous tissue around the chin Signer Name: Zoraida Spann MD Signed: 08/21/2021 9:00 PM Workstation Name: [email or web address]
[2021-08-22] MEDS: INSULIN REGULAR, HUMAN 100 UNITS/1 ML SUB-Q SCH ×4 (00:13→17:52)
[2021-08-22] MEDS: ISOSORBIDE DINITRATE 20 MG TAB PO SCH ×3 (05:28→22:08)
[2021-08-22] MEDS: hydrALAZINE 25 MG TAB PO SCH ×3 (05:29→22:08)
[2021-08-22] MEDS: fentaNYL 100 MCG/2 ML INJ IV PRN (05:29)
[2021-08-22] MEDS: methylPREDNISolone Sod Succinate 40 MG/1 ML INJ IV SCH ×3 (05:29→18:00)
[2021-08-22] MEDS: METOPROLOL TARTRATE 50 MG TAB PO SCH ×2 (09:38→22:08)
[2021-08-22] MEDS: QUEtiapine 25 MG TAB PO SCH ×2 (09:38→22:09)
[2021-08-22] MEDS: SENNOSIDES ORAL LIQD 8.8 MG/5 ML ORAL LIQD FEEDTUBE SCH ×2 (09:38→22:09)
[2021-08-22] MEDS: ASPIRIN 81 MG TAB CHEW PO SCH (09:38)
[2021-08-22] MEDS: HEPARIN 5,000 UNIT/1 ML VIAL SUB-Q SCH ×2 (09:38→22:22)
[2021-08-22] MEDS: CLOPIDOGREL 75 MG TAB PO SCH (09:39)
[2021-08-22] MEDS: FAMOTIDINE 10 MG TAB PO SCH ×2 (09:39→22:08)
[2021-08-22] MEDS: AMIODARONE 200 MG TAB PO SCH ×2 (09:39→22:08)
[2021-08-22] MEDS: LOSARTAN 25 MG TAB PO SCH (10:41)
[2021-08-22] MEDS: cloNIDine 0.2 MG TAB PO SCH ×2 (10:41→22:08)
--- NOTE | 2021-08-22 11:07 | Progress Note ---
Assessment and Plan Patient is a 60-year-old female with recurrent V. tach, end-stage renal disease, s/p ICD, and recurrent severe hypokalemia VT Storm Recurrent AICD Discharges CAD s/p PCI (07/17/2021) Accelerated HTN ESRD on HD Hyponatremia Severe Hypokalemia (POA, resolved) Anemia Thrombocytopenia Type 2 MD HTN H/o CVA Plan: Currently waiting bed availability at [place] for transfer for VT ablation Continue aspirin, Plavix, Lipitor, losartan 100 mg p.o. daily and metoprolol 100 mg p.o. twice daily, and amio 400 mg p.o. twice daily, Stop clonidine 0.2 mg p.o. BID due to hypotension Patient seen in conjunction with Dr. Padilla who agrees with this plan of care - Patient Problems (1) AICD discharge Current Visit: Yes Status: Acute (2) Anemia in end-stage renal disease Current Visit: Yes Status: Acute (3) Elevated troponin Current Visit: Yes Status: Acute (4) Hypokalemia Current Visit: Yes Status: Acute (5) Sustained ventricular tachycardia Current Visit: Yes Status: Acute (6) Diabetes Current Visit: No Status: Acute (7) Respiratory failure Current Visit: No Status: Acute Qualifiers: Chronicity: acute Respiratory failure complication: hypoxia Qualified Code(s): J96.01 - Acute respiratory failure with hypoxia (8) Hypertension Current Visit: No Status: Chronic Qualifiers: Hypertension type: primary hypertension Qualified Code(s): I10 - Essential (primary) hypertension Subjective Date of service: 08/22/21 Principal diagnosis: Recurrent VT Interval history: Patient remains intubated Patient A paced 70 no events on monitor Objective Vital Signs Temp Pulse Pulse Resp BP Pulse Ox Pulse Ox 08/22/21 10:41 70 149/59 08/22/21 10:15 70 13 140/57 100 08/22/21 10:00 70 12 140/57 99 08/22/21 09:45 70 16 141/63 100 08/22/21 09:38 70 141/63 08/22/21 09:31 70 12 141/63 99 08/22/21 09:15 70 13 141/63 100 08/22/21 09:00 70 12 141/63 99 08/22/21 08:45 70 13 143/59 99 08/22/21 08:31 70 12 143/59 100 08/22/21 08:27 70 143/59 100 08/22/21 08:15 70 13 143/59 99 08/22/21 08:00 98.0 F 70 70 12 143/59 99 08/22/21 07:45 70 13 134/56 08/22/21 07:31 70 12 134/56 08/22/21 07:15 70 14 134/56 98 08/22/21 07:00 70 15 134/56 100 08/22/21 06:45 70 10 L 151/60 100 08/22/21 06:31 70 11 L 151/60 100 08/22/21 06:15 70 12 151/60 99 08/22/21 06:00 70 13 151/60 08/22/21 05:45 70 12 132/60 99 08/22/21 05:31 70 12 132/60 97 08/22/21 05:29 70 132/60 08/22/21 05:28 70 132/60 08/22/21 05:15 70 9 L 132/60 08/22/21 05:01 70 13 132/60 99 08/22/21 04:45 70 11 L 137/53 99 08/22/21 04:31 70 11 L 137/53 100 08/22/21 04:15 70 11 L 137/53 100 08/22/21 04:01 70 13 137/53 100 08/22/21 04:00 98.1 F 70 70 11 L 100 08/22/21 03:51 70 126/49 98 08/22/21 03:45 70 14 126/49 99 08/22/21 03:31 70 7 L 126/49 100 08/22/21 03:15 70 10 L 126/49 100 08/22/21 03:00 70 11 L 126/49 100 08/22/21 02:45 70 11 L 132/59 100 08/22/21 02:31 70 11 L 132/59 08/22/21 02:15 70 10 L 132/59 08/22/21 02:00 70 14 132/59 99 08/22/21 01:45 139/58 99 08/22/21 01:31 70 12 139/58 99 08/22/21 01:15 70 10 L 139/58 100 08/22/21 01:00 70 13 139/58 99 08/22/21 00:45 70 13 98/43 98 08/22/21 00:31 70 12 98/43 98 08/22/21 00:15 70 12 98/43 99 08/22/21 00:00 99.8 F H 70 70 13 98/43 99 08/21/21 23:50 70 98/46 98 08/21/21 23:45 70 12 98/46 98 08/21/21 23:31 79 30 H 98/46 99 08/21/21 23:15 70 10 L 98/46 99 08/21/21 23:05 70 18 98/46 99 08/21/21 23:01 70 15 116/57 99 08/21/21 22:49 70 116/57 08/21/21 22:48 70 116/57 08/21/21 22:45 70 12 116/57 99 08/21/21 22:43 70 120/48 08/21/21 22:42 70 120/48 08/21/21 22:31 70 15 120/48 99 08/21/21 22:15 70 14 120/48 97 08/21/21 22:00 70 14 120/48 97 08/21/21 21:45 70 12 146/61 97 08/21/21 21:31 70 12 146/61 98 08/21/21 21:15 70 18 146/61 98 08/21/21 21:00 70 19 146/61 99 08/21/21 20:45 70 12 138/66 98 08/21/21 20:31 70 16 138/66 98 08/21/21 20:15 70 18 138/66 98 08/21/21 20:00 98.4 F 70 70 14 138/66 100 08/21/21 19:45 70 16 130/59 98 08/21/21 19:31 70 18 130/59 98 08/21/21 19:22 70 130/59 99 08/21/21 19:15 70 12 130/59 99 08/21/21 19:00 70 12 130/59 99 08/21/21 18:45 70 11 L 139/56 99 08/21/21 18:31 70 12 139/56 99 08/21/21 18:15 70 11 L 139/56 99 08/21/21 18:00 70 16 139/56 100 08/21/21 17:45 101/47 100 08/21/21 17:31 70 13 101/47 99 08/21/21 17:27 70 4 L 101/47 99 08/21/21 16:46 99.4 F 08/21/21 16:45 70 14 96/45 99 08/21/21 16:31 70 12 96/45 98 08/21/21 16:15 70 13 96/45 98 08/21/21 16:00 98.4 F 70 70 13 96/45 98 08/21/21 15:45 70 12 105/43 98 08/21/21 15:31 70 12 105/43 99 08/21/21 15:30 70 105/43 99 08/21/21 15:15 70 12 105/43 98 08/21/21 15:01 70 12 105/43 98 08/21/21 14:45 70 14 146/58 99 08/21/21 14:31 70 12 146/58 99 08/21/21 14:28 70 146/58 08/21/21 14:15 70 12 146/58 100 08/21/21 14:00 70 15 146/58 100 08/21/21 13:45 70 12 120/47 99 08/21/21 13:31 70 11 L 120/47 99 08/21/21 13:15 70 11 L 120/47 100 08/21/21 13:00 70 12 120/47 99 08/21/21 12:45 70 11 L 139/52 100 08/21/21 12:30 70 12 139/52 99 08/21/21 12:15 70 10 L 142/52 99 08/21/21 12:06 100 08/21/21 12:04 70 126/48 100 08/21/21 12:01 70 11 L 126/48 99 08/21/21 12:00 70 12 100 08/21/21 11:59 98.4 F 70 08/21/21 11:58 98.4 F 08/21/21 11:45 70 8 L 86/59 100 08/21/21 11:30 70 15 97/43 98 08/21/21 11:15 70 13 97/44 99 08/21/21 11:10 98.8 F 40 L 10 L 102/48 99 Pulse Ox Pulse Ox Pulse Ox 08/22/21 10:41 08/22/21 10:15 08/22/21 10:00 08/22/21 09:45 08/22/21 09:38 08/22/21 09:31 08/22/21 09:15 08/22/21 09:00 08/22/21 08:45 08/22/21 08:31 08/22/21 08:27 08/22/21 08:15 08/22/21 08:00 08/22/21 07:45 08/22/21 07:31 08/22/21 07:15 08/22/21 07:00 08/22/21 06:45 08/22/21 06:31 08/22/21 06:15 08/22/21 06:00 08/22/21 05:45 08/22/21 05:31 08/22/21 05:29 08/22/21 05:28 08/22/21 05:15 08/22/21 05:01 08/22/21 04:45 08/22/21 04:31 08/22/21 04:15 08/22/21 04:01 08/22/21 04:00 08/22/21 03:51 08/22/21 03:45 08/22/21 03:31 08/22/21 03:15 08/22/21 03:00 08/22/21 02:45 08/22/21 02:31 08/22/21 02:15 08/22/21 02:00 08/22/21 01:45 08/22/21 01:31 08/22/21 01:15 08/22/21 01:00 08/22/21 00:45 08/22/21 00:31 08/22/21 00:15 08/22/21 00:00 08/21/21 23:50 08/21/21 23:45 08/21/21 23:31 08/21/21 23:15 08/21/21 23:05 08/21/21 23:01 08/21/21 22:49 08/21/21 22:48 08/21/21 22:45 08/21/21 22:43 08/21/21 22:42 08/21/21 22:31 08/21/21 22:15 08/21/21 22:00 08/21/21 21:45 08/21/21 21:31 08/21/21 21:15 08/21/21 21:00 08/21/21 20:45 08/21/21 20:31 08/21/21 20:15 08/21/21 20:00 08/21/21 19:45 08/21/21 19:31 08/21/21 19:22 08/21/21 19:15 08/21/21 19:00 08/21/21 18:45 08/21/21 18:31 08/21/21 18:15 08/21/21 18:00 08/21/21 17:45 08/21/21 17:31 08/21/21 17:27 08/21/21 16:46 08/21/21 16:45 08/21/21 16:31 08/21/21 16:15 08/21/21 16:00 08/21/21 15:45 08/21/21 15:31 08/21/21 15:30 08/21/21 15:15 08/21/21 15:01 08/21/21 14:45 08/21/21 14:31 08/21/21 14:28 08/21/21 14:15 08/21/21 14:00 08/21/21 13:45 08/21/21 13:31 08/21/21 13:15 08/21/21 13:00 08/21/21 12:45 08/21/21 12:30 08/21/21 12:15 08/21/21 12:06 08/21/21 12:04 08/21/21 12:01 08/21/21 12:00 08/21/21 11:59 08/21/21 11:58 08/21/21 11:45 08/21/21 11:30 08/21/21 11:15 08/21/21 11:10 100 100 98 - Physical Examination General: Other (intubated) HEENT: Positive: Normocephaly, Mucus Membranes Dry Neck: Positive: neck supple, trachea midline. Negative: JVD/HJR Cardiac: Positive: Reg Rate and Rhythm Neuro: Positive: Other (intubated) Abdomen: Positive: Soft Skin: Negative: Rash Musculoskeletal: No Fluid Collection Extremities: Present: lower extr. pulses. Absent: edema - Labs and Meds Cardiac Enzymes 08/21/21 Range/Units 08:18 AST 15 (5-40) units/L Comprehensive Metabolic Panel 08/21/21 Range/Units 08:18 Direct Bilirubin < 0.2 (0-0.2) mg/dL Indirect Bilirubin 0.1 mg/dL AST 15 (5-40) units/L ALT 14 (7-56) units/L Alkaline Phosphatase 98 (35-129) units/L Total Protein 6.0 L (6.3-8.2) g/dL Albumin 2.6 L (3.9-5) g/dL - Imaging and Cardiology EKG: report reviewed, image reviewed Echo: report reviewed Cardiac cath: report reviewed - Telemetry EKG Rhythm: Paced - EKG Sinus rhythms and dysrhythmias: sinus rhythm Repolarization changes or abnormalities: Q-T interval prolongation Myocardial infarction: anterior MD (old age or i Pacemaker: atrial pacing w/capture - Allied health notes Allied health notes reviewed: nursing
--- NOTE | 2021-08-22 13:18 | Progress Note ---
Assessment and Plan Assessment and plan: This is 60-year-old female with ESRD on HD, recurrent AICD discharges, V. tach, cardiac arrest, anemia of chronic disease, CAD, systolic HF and HTN admitted for V. tach and severe hypokalemia Neuro: Sedated -Sedated with precedex -PRN fentanyl IVP and added seroquel today -RASS goal -1 to -2 -Avoid delirium -Reorientation as needed -SAT/SBT when appropriate -CT head x2 with no acute findings CV: Recurrent V. tach storm, NSTEMI, h/o s/p AICD implantation, systolic heart failure, V. tach, HTN -Cardiology consulted, appreciate recommendations -S/p lidocaine and Cardene drip -Antihypertensive regimen: hydralazine, isosorbide, cozaar, metoprolol,clonidine (adjust as needed) -s/p Amiodarone drip-> Amio PO -Awaiting transfer to [facility] -Continue Lipitor, Plavix, ASA Respiratory: Acute Hypoxemic Respiratory Failure -CCM consulted, appreciate recommendations -Intubated in the ED on 08/05 with a 6.50 ETT at 21 at the lips, extubated 08/14 with reintubation, self extubation 08/16 with reintubation 7.5 oett @ 24 lips -A.m. vent settings assist-control rate 12, tidal volume 375, PEEP 6, FiO2 30% -See RT notes for titration -no cuff leak noted today despite FFP x2 yesterday -CT neck w/o contrast not helpful->obtain CT neck w/ con per [facility] (cleared with nephro) -VAP bundle -SPO2 monitoring GI: NAD -Nutrition consult for tube feeding -24 hours + 1790 mL -HD removal of 2L 08/21 -PPI -BR: Senokot -BM 08/19 : ESRD on HD, hyponatremia, hypochloremia -Nephrology consulted, appreciate recommendations -HD per nephrology -Avoid nephrotoxic medications -Renally dose medications -Strict intake and output ID: [id number] -Monitor WBC and fever curve -Follow-up blood culture x2 and sputum culture -NGTD Heme: Thrombocytosis, Acute on chronic anemia of chronic disease -S/p 2 unit PRBC -Trend CBC -Transfuse for hemoglobin less than 7 -Epogen per nephrology -Resume DAPT per cards in setting of recent stent -Heparin subq -SCDs to bilateral LE while in bed Endo: Hypoglycemia (resolved) -S/p D10 for hypoglycemia -Avoid hypoglycemia -Accu-Cheks every 4 Dispo: AWAITING TRANSFER TO [facility] since 08/06/2021 Critical care statement The high probability of a clinically significant sudden or life-threatening deterioration of the [cardio-respiratory system] and endocrine system required my full and direct attention, intervention and postoperative management. The aggregate critical care time was [60] minutes. The time is in addition to time spent performing reported procedures but includes the following: [x] 1: Data review and interpretation [x] 2: Patient assessment and monitoring of vital signs [x] 3: Documentation [x] 4: Medication orders and management Disposition Plan: icu Total Time Spent with Patient (Minutes): 60 History Interval history: This is 60-year-old female with ESRD on HD, recurrent AICD discharges, systolic heart failure, V. tach, cardiac arrest, anemia, CAD and HTN who presents to the emergency department from her dialysis center on 08/05 for severe muscle spasms secondary to AICD discharges per patient. She also had questionable seizures in the dialysis center. Patient was started on amiodarone and lidocaine. Patient was intubated for airway protection in the emergency department and work-up also revealed severe hypokalemia. Patient was admitted to the hospital service with consult cardiology, nephrology and CCM. 08/06/2021: Patient is sedated, Transfer to [facility] arranged 08/07: COVID-19 PCR negative. Patient received hemodialysis today. Off Cardene drip. Patient has been OG tube for p.o. BP medications. Thrombocytopenia persists therefore anticoagulation is held. Patient is leukopenia also. We will continue to trend CBC. Persistent hypoglycemia and D10 drip increased to 30 ml/hr. negative Covid test relayed to [facility]. 08/08: 1 unit prbc today, will start TF today. Still awaiting [facility] bed. 08/09: awaiting transfer to [facility]. TF nearly at goal so anticipate stopping dextrose IVF soon. Midline to be placed 08/10/2021: Received HD today. BP remains elevated therefore started on cardene gtt. Cardiology aware. No beds available yet. 08/11/2021: Cardene gtt infusing, CT head ordered as per nurse patient is not really responding (withdraw/ grimace to pain when off sedation/PERRL/intact cough/gag on PE). 08/12: ANGELINE overnight. Remains on the vent and sedated. On Amio gtt, A-pacing on the monitor, still hypertensive on cardene gtt, home antihypertensive was restarted. Plan for HD this am, hypernatremia too be corrected per Nephro. 08/13: Plan for SAT and SBT this am for possible extubation. Patient remains hypertensive on cardene gtt, clonidine added. 08/14: Patient s/p reintubation by anesthesia. Awake and alert following commands, not on any sedation. Remains hypertensive on amio and cardene gtt. D/w cardio plan to switch to PO Amio and to adjust antihypertensive therapy, hopefully can wean off cardene gtt. Plan to possible transfer patient to [facility] as a way of getting patient into the [facility] system for the needed ablation. Case management to arrange 08/15: ANGELINE overnight. Patient remains stable on the vent. Still with uncontrolled hypertension despite meds increased yesterday. Patient remains on cardene gt. Cardio added minoxidil, plan is still to wean off cardene gtt. Plan for HD today 08/16: Self-extubated and was reintubated overnight due to stridor. Now on low dose sedation, following commands. D/w CCM plan to do a cuff leak today and possible start patinet on IV steroids. Since this is X2 failed extubation patient might need to be Trached. Per Case management patient was denied for [facility], no HD beds available. Patient remains on [facility] transfer list for possible inpatient transfer. 08/17: On the vent and om propofol gtt, RASS 0. Hypotensive overnight, will defer to Cardio for possible BP meds adjustment. Pending transfer to [facility]. 08/18: ANGELINE overnight. While awake on propofol gtt, following commands. Tolerated PST yesterday [id number]. Daily PST as tolerated. Pending transfer to [facility] 08/19: no cuff leak noted, may need neck imaging later this week. HD today with removal of 2.5 L. Midline ordered. [place] positional 08/20: Blood pressure medications adjusted due to hypotension, leak test not completed yet. No acute events reported overnight. Precedex drip initiated due to elevated triglycerides and propofol discontinued. 08/21: Patient remains soft with her blood pressures and antihypertensive regimen adjusted again. No cuff leak noted again despite getting FFP yesterday. Remains on Precedex. Started on Seroquel. Will have routine ECG tomorrow. 08/22: RN states that doses of hypertensive regimen have been withheld due to hypotension which has been medicated to cardiology. However per documentation as patient was hypotensive with SBP of 90s for approximately [address] neck completed, CT neck with contrast will be obtained as she is a MWF HD schedule and cleared with Nephro. Still awaiting transfer to [facility]. Hospitalist Physical - Physical exam Narrative exam: General appearance: Present: no acute distress, other (Intubated and on sedation, RASS 0 ) - EENT Eyes: Present: PERRL, EOM intact - Neck Neck: Present: supple, normal ROM - Respiratory Respiratory effort: normal Respiratory: bilateral: CTA - Cardiovascular Rhythm: regular Heart Sounds: Present: S1 & S2. Absent: systolic murmur, diastolic murmur - Extremities Extremities: no ischemia, pulses intact, pulses symmetrical, No edema, normal temperature, normal color Peripheral Pulses: within normal limits - Abdominal General gastrointestinal: soft, non-tender, non-distended, normal bowel sounds - Integumentary Integumentary: Present: warm, dry - Psychiatric Psychiatric: cooperative - Neurologic Neurologic: CNII-XII intact - Allied Health Allied health notes reviewed: nursing, RT, social work - Constitutional Vitals: Temp Pulse Resp BP Pulse Ox 99.0 F 70 13 151/58 99 08/22/21 11:53 08/22/21 12:28 08/22/21 10:15 08/22/21 12:28 08/22/21 12:28 General appearance: Present: no acute distress, other (Intubated and on sedation, RASS 0 ) HEART Score - HEART Score Age: 45-65 Risk factors: > 3 risk factors or hx of atherosclerotic disease Troponin: Troponin T 0.183 ng/mL (0.00-0.029) H* D 08/05/21 18:56 Troponin: 1-3x normal limit - Critical Actions Critical Actions: 4-6 pts:12-16.6% risk of adverse cardiac event. Should be admitted Results - Labs CBC & Chem 7: 08/21/21 08:15 08/21/21 08:15 Labs: Laboratory Last Values WBC 9.7 K/mm3 (4.5-11.0) 08/21/21 08:15 RBC 2.90 M/mm3 (3.65-5.03) L 08/21/21 08:15 Hgb 7.7 gm/dl (10.1-14.3) L 08/21/21 08:15 Hct 23.5 % (30.3-42.9) L 08/21/21 08:15 MCV 81 fl (79-97) 08/21/21 08:15 MCH 27 pg (28-32) L 08/21/21 08:15 MCHC 33 % (30-34) 08/21/21 08:15 RDW 18.9 % (13.2-15.2) H 08/21/21 08:15 Plt Count 390 K/mm3 (140-440) 08/21/21 08:15 Lymph % (Auto) [employer] 08/07/21 04:00 [place] % (Auto) [employer] 08/11/21 04:00 Eos % (Auto) 2.2 % (0.0-4.3) 08/06/21 16:35 Baso % (Auto) [employer] 08/07/21 04:00 Lymph # (Auto) 0.8 K/mm3 (1.2-5.4) L 08/06/21 16:35 [place] # (Auto) 0.7 K/mm3 (0.0-0.8) 08/06/21 16:35 Eos # (Auto) 0.1 K/mm3 (0.0-0.4) 08/06/21 16:35 Baso # (Auto) 0.1 K/mm3 (0.0-0.1) 08/06/21 16:35 Add Manual Diff Complete 08/11/21 04:00 Total Counted 100 08/11/21 04:00 Seg Neutrophils % [employer] 08/07/21 04:00 Seg Neuts % (Manual) 76.0 % (40.0-70.0) H 08/11/21 04:00 Band Neutrophils % 2.0 % 08/11/21 04:00 Lymphocytes % (Manual) 8.0 % (13.4-35.0) L 08/11/21 04:00 Reactive Lymphs % (Man) 5.0 % 08/07/21 04:00 Monocytes % (Manual) 13.0 % (0.0-7.3) H 08/11/21 04:00 Eosinophils % (Manual) 1.0 % (0.0-4.3) 08/10/21 04:00 Basophils % (Manual) 4.0 % (0.0-1.8) H 08/07/21 04:00 Metamyelocytes % 1.0 % 08/11/21 04:00 Nucleated RBC % Not Reportable 08/11/21 04:00 Seg Neutrophils # 2.6 K/mm3 (1.8-7.7) 08/06/21 16:35 Seg Neutrophils # Man 5.2 K/mm3 (1.8-7.7) 08/11/21 04:00 Band Neutrophils # 0.1 K/mm3 08/11/21 04:00 Lymphocytes # (Manual) 0.6 K/mm3 (1.2-5.4) L 08/11/21 04:00 Abs React Lymphs (Man) 0.0 K/mm3 08/11/21 04:00 Monocytes # (Manual) 0.9 K/mm3 (0.0-0.8) H 08/11/21 04:00 Eosinophils # (Manual) 0.0 K/mm3 (0.0-0.4) 08/11/21 04:00 Basophils # (Manual) 0.0 K/mm3 (0.0-0.1) 08/11/21 04:00 Metamyelocytes # 0.1 K/mm3 08/11/21 04:00 Myelocytes # 0.0 K/mm3 08/11/21 04:00 Promyelocytes # 0.0 K/mm3 08/11/21 04:00 Blast Cells # 0.0 K/mm3 08/11/21 04:00 WBC Morphology Not Reportable 08/11/21 04:00 WBC Morphology TNR 08/11/21 04:00 Hypersegmented Neuts Not Reportable 08/11/21 04:00 Hyposegmented Neuts Not Reportable 08/11/21 04:00 Hypogranular Neuts Not Reportable 08/11/21 04:00 Smudge Cells Not Reportable 08/11/21 04:00 Toxic Granulation Not Reportable 08/11/21 04:00 Toxic Vacuolation Not Reportable 08/11/21 04:00 Dohle Bodies Not Reportable 08/11/21 04:00 Pelger-Huet Anomaly Not Reportable 08/11/21 04:00 Claudio Rods Not Reportable 08/11/21 04:00 Platelet Estimate Consistent w auto 08/11/21 04:00 Clumped Platelets Not Reportable 08/11/21 04:00 Plt Clumps, EDTA Not Reportable 08/11/21 04:00 Large Platelets Not Reportable 08/11/21 04:00 Giant Platelets Not Reportable 08/11/21 04:00 Platelet Satelliting Not Reportable 08/11/21 04:00 Plt Morphology Comment Not Reportable 08/11/21 04:00 RBC Morphology Not Reportable 08/11/21 04:00 Dimorphic RBCs Not Reportable 08/11/21 04:00 Polychromasia Not Reportable 08/11/21 04:00 Hypochromasia Few 08/11/21 04:00 Poikilocytosis Not Reportable 08/11/21 04:00 Anisocytosis Not Reportable 08/11/21 04:00 Microcytosis Not Reportable 08/11/21 04:00 Macrocytosis Not Reportable 08/11/21 04:00 Spherocytes Not Reportable 08/11/21 04:00 Pappenheimer Bodies Not Reportable 08/11/21 04:00 Sickle Cells Not Reportable 08/11/21 04:00 Target Cells Few 08/11/21 04:00 Tear Drop Cells Not Reportable 08/11/21 04:00 Ovalocytes Not Reportable 08/11/21 04:00 Helmet Cells Not Reportable 08/11/21 04:00 [place] Bodies Not Reportable 08/11/21 04:00 Startex Rings Not Reportable 08/11/21 04:00 Roland Cells Not Reportable 08/11/21 04:00 Bite Cells Not Reportable 08/11/21 04:00 Crenated Cell Not Reportable 08/11/21 04:00 Elliptocytes Not Reportable 08/11/21 04:00 Acanthocytes (Spur) Not Reportable 08/11/21 04:00 Rouleaux Not Reportable 08/11/21 04:00 Hemoglobin C Crystals Not Reportable 08/11/21 04:00 Schistocytes Not Reportable 08/11/21 04:00 Malaria parasites Not Reportable 08/11/21 04:00 Aleks Bodies Not Reportable 08/11/21 04:00 Hem Pathologist Commnt No 08/11/21 04:00 PT 14.2 Sec. (12.2-14.9) 08/06/21 16:35 INR 0.99 (0.87-1.13) 08/06/21 16:35 APTT 37.1 Sec. (24.2-36.6) H 08/06/21 07:26 ABG pH 7.508 (7.320-7.450) H 08/20/21 04:25 POC ABG pCO2 35.1 mmHg (32.0-48.0) 08/20/21 04:25 ABG pCO2 41.2 mm Hg 08/09/21 04:30 POC ABG pO2 139.8 mmHg (83-108) H 08/20/21 04:25 ABG pO2 91.5 mm Hg (80.0-90.0) H 08/09/21 04:30 POC ABG HCO3 27.3 08/20/21 04:25 ABG HCO3 26.6 mmol/L (20.0-26.0) H 08/09/21 04:30 ABG O2 Saturation 99.1 (0-100) 08/20/21 04:25 ABG O2 Content 12.3 (0.0-44) 08/09/21 04:30 POC ABG Base Excess 4.0 08/20/21 04:25 ABG Base Excess 2.0 mmol/L (-2.0-3.0) 08/09/21 04:30 ABG Hemoglobin 8.2 (12.0-17.5) L 08/20/21 04:25 ABG Oxyhemoglobin 98.3 (94-98) H 08/20/21 04:25 ABG Carboxyhemoglobin 1.4 % (0.0-5.0) 08/09/21 04:30 ABG Methemoglobin 0.3 (0.0-1.5) 08/20/21 04:25 ABG Sodium 129.8 mmol/L (136.0-145.0) L 08/20/21 04:25 ABG Potassium 3.7 mmol/L (3.40-4.50) 08/20/21 04:25 ABG Chloride 96.0 mmol/L (98-107) L 08/20/21 04:25 ABG Glucose 162 mg/dL (65-95) H 08/20/21 04:25 Oxyhemoglobin 95.4 % (95.0-99.0) 08/09/21 04:30 Carboxyhemoglobin 0.5 (0.5-1.5) 08/20/21 04:25 FiO2 25 % 08/09/21 04:30 FiO2 % 30.0 08/20/21 04:25 Sodium 134 mmol/L (137-145) L 08/21/21 08:15 Potassium 4.3 mmol/L (3.6-5.0) 08/21/21 08:15 Chloride 94.9 mmol/L (98-107) L 08/21/21 08:15 Carbon Dioxide 25 mmol/L (22-30) 08/21/21 08:15 Anion Gap 18 mmol/L 08/21/21 08:15 BUN 42 mg/dL (7-17) H 08/21/21 08:15 Creatinine 4.0 mg/dL (0.6-1.2) H 08/21/21 08:15 Estimated GFR 14 ml/min 08/21/21 08:15 BUN/Creatinine Ratio 11 % 08/21/21 08:15 Glucose 208 mg/dL (65-100) H 08/21/21 08:15 POC Glucose 211 mg/dL (70-105) H 08/22/21 11:44 Calcium 9.1 mg/dL (8.4-10.2) 08/21/21 08:15 Phosphorus 4.30 mg/dL (2.5-4.5) D 08/21/21 08:15 Magnesium 2.00 mg/dL (1.7-2.3) 08/21/21 08:15 Total Bilirubin 0.30 mg/dL (0.1-1.2) 08/21/21 08:18 Direct Bilirubin < 0.2 mg/dL (0-0.2) 08/21/21 08:18 Indirect Bilirubin 0.1 mg/dL 08/21/21 08:18 AST 15 units/L (5-40) 08/21/21 08:18 ALT 14 units/L (7-56) 08/21/21 08:18 Alkaline Phosphatase 98 units/L (35-129) 08/21/21 08:18 Troponin T 0.183 ng/mL (0.00-0.029) H* D 08/05/21 18:56 Total Protein 6.0 g/dL (6.3-8.2) L 08/21/21 08:18 Albumin 2.6 g/dL (3.9-5) L 08/21/21 08:18 Albumin/Globulin Ratio 0.8 % 08/21/21 08:18 Triglycerides 433 mg/dL (2-149) H 08/20/21 06:08 Cholesterol 170 mg/dL (50-199) 08/05/21 15:55 LDL Cholesterol Direct 106 mg/dL (50-130) 08/05/21 15:55 HDL Cholesterol 32 mg/dL (40-59) L 08/05/21 15:55 Cholesterol/HDL Ratio 5.31 % 08/05/21 15:55 TSH 7.070 mlU/mL (0.270-4.200) H 08/07/21 13:30 Arterial Blood Glucose 162 mg/dL (65-95) H 08/20/21 04:25 Arterial Blood Ionized Calcium 4.8 mg/dL (4.6-5.3) 08/15/21 05:22 Coronavirus (PCR) Negative (Negative) 08/07/21 Unknown Hepatitis A IgM Ab Non-reactive (NonReactive) 08/08/21 04:26 Hep Bs Antigen Nonreactive (Negative) 08/08/21 04:26 Hep B Core IgM Ab Non-reactive (NonReactive) 08/08/21 04:26 Hepatitis C Antibody Non-reactive (NonReactive) 08/08/21 04:26 Blood Type O POSITIVE 08/20/21 15:29 Antibody Screen TNR 08/20/21 15:29 Crossmatch See Detail 08/06/21 05:30 Active Medications - Current Medications Current Medications: Generic Name Dose Route Start Last Admin Trade Name Freq PRN Reason Stop Dose Admin Acetaminophen 650 mg 08/06/21 16:30 08/06/21 16:30 Acetaminophen 650 Mg Rect Supp CO 650 mg Q6H PRN Administration Pain, Mild (1-3) Albuterol 2.5 mg 08/05/21 20:59 Albuterol 2.5 Mg/3 Ml Nebu IH Q4HRT PRN Shortness Of Breath Amiodarone HCl 400 mg 08/14/21 11:00 08/22/21 09:39 Amiodarone 200 Mg Tab PO 400 mg BID JODI Administration Lipase/Protease/Amylase 1 each 08/07/21 09:47 Lipase 10,500/Protease 25,000/Amylase 43,750 (Units) Dr Thomas FEEDTUBE PRN PRN For Clogged Feeding Tube Aspirin 81 mg 08/07/21 10:00 08/22/21 09:38 Aspirin 81 Mg Tab Chew PO 81 mg QDAY JODI Administration Atorvastatin Calcium 80 mg 08/05/21 22:00 08/21/21 22:41 Atorvastatin 40 Mg Tab PO 80 mg QHS JODI Administration Clonidine HCl 0.2 mg 08/20/21 10:00 08/22/21 10:41 Clonidine 0.2 Mg Tab PO 0.2 mg Q12HR JODI Administration Clopidogrel Bisulfate 75 mg 08/10/21 10:00 08/22/21 09:39 Clopidogrel 75 Mg Tab PO 75 mg QDAY JODI Administration Dextrose 50 ml 08/17/21 18:00 Dextrose 50% In Water (25gm) 50 Ml Syringe IV Q30MIN PRN Hypoglycemia Protocol Famotidine 10 mg 08/09/21 22:00 08/22/21 09:39 Famotidine 10 Mg Tab PO 10 mg BID JODI Administration Fentanyl 50 mcg 08/16/21 11:48 08/22/21 05:29 Fentanyl 100 Mcg/2 Ml Inj IV 50 mcg Q2H PRN Administration Pain, Moderate (4-6) Heparin Sodium (Porcine) 5,000 unit 08/11/21 10:00 08/22/21 09:38 Heparin 5,000 Unit/1 Ml Vial SUB-Q 5,000 unit Q12HR JODI Administration Hydralazine HCl 10 mg 08/06/21 04:21 08/15/21 07:53 Hydralazine 20 Mg/1 Ml Inj IV 10 mg Q6HR PRN Administration Hypertension Hydralazine HCl 50 mg 08/21/21 14:00 08/22/21 05:29 Hydralazine 25 Mg Tab PO 50 mg Q8HR JODI Administration Hydrophilic Ointment 1 applic 08/05/21 17:25 Lip Therapy Vaseline TP Q2HR PRN Dry Lips Sodium Chloride 100 mls @ 999 mls/hr 08/14/21 17:06 Nacl 0.9% IV GLENDY PRN Hypotension Dexmedetomidine HCl 400 mcg/ 104 mls @ 3.341 mls/hr 08/20/21 10:00 08/22/21 08:09 Sodium Chloride IV 1.2 mcg/kg/hr TITRATE JODI 20.046 mls/hr Administration Protocol 0.2 MCG/KG/HR Insulin Human Regular 0 units 08/17/21 18:00 08/22/21 12:10 Insulin Regular, Human 100 Units/1 Ml SUB-Q 2 units Q6H JODI Administration Protocol Isosorbide Dinitrate 20 mg 08/11/21 14:00 08/22/21 05:28 Isosorbide Dinitrate 20 Mg Tab PO 20 mg Q8HR JODI Administration Losartan Potassium 100 mg 08/12/21 10:00 08/22/21 10:41 Losartan 25 Mg Tab PO 100 mg DAILY JODI Administration Methylprednisolone Sodium Succinate 40 mg 08/16/21 13:00 08/22/21 12:10 Methylprednisolone Sod Succinate 40 Mg/1 Ml Inj IV 40 mg Q6HR JODI Administration Metoclopramide HCl 5 mg 08/05/21 21:03 Metoclopramide 10 Mg/2 Ml Inj IV Q6H PRN Nausea And Vomiting Metoprolol Tartrate 100 mg 08/12/21 12:00 08/22/21 09:38 Metoprolol Tartrate 50 Mg Tab PO 100 mg BID [facility] Administration Multi-Ingred Cream/Lotion/Oil/Oint 1 applic 08/05/21 17:25 Mineral Oil/Petrolatum, White Ophth Oint 3.5 Gm OU Q4HR PRN Dry Eye(s) Ondansetron HCl 4 mg 08/05/21 21:03 Ondansetron 4 Mg/2 Ml Inj IV Q8H PRN Nausea And Vomiting Oxycodone/Acetaminophen 1 tab 08/05/21 21:03 08/22/21 01:52 Oxycodone /Acetaminophen 5-325mg Tab PO 1 tab Q6H PRN Administration Pain, Moderate (4-6) Quetiapine Fumarate 25 mg 08/21/21 12:00 08/22/21 09:38 Quetiapine 25 Mg Tab PO 25 mg BID JODI Administration Senna 8.8 mg 08/07/21 13:00 08/22/21 09:38 Sennosides Oral Liqd 8.8 Mg/5 Ml Oral Liqd FEEDTUBE 8.8 mg BID JODI Administration Simple Syrup 15 ml 08/07/21 09:47 Simple Syrup 15 Ml FEEDTUBE PRN PRN Hypoglycemia Simple Syrup 30 ml 08/07/21 09:47 Simple Syrup 15 Ml FEEDTUBE PRN PRN Hypoglycemia Sodium Bicarbonate 325 mg 08/07/21 09:47 Sodium Bicarbonate 325 Mg Tab FEEDTUBE PRN PRN For Clogged Feeding Tube Sodium Chloride 10 ml 08/05/21 22:00 08/22/21 09:39 Sodium Chloride 0.9% 10 Ml Flush Syringe IV 10 ml BID JODI Administration Sodium Chloride 10 ml 08/05/21 21:03 Sodium Chloride 0.9% 10 Ml Flush Syringe IV PRN PRN LINE FLUSH Nutrition/Malnutrition Assess - Dietary Evaluation Nutrition/Malnutrition Findings: Nutrition Notes Start: 08/07/21 09:12 Freq: Status: Active Protocol: Document 08/19/21 14:47 KALA (Rec: 08/19/21 15:06 KALA [id number]) Nutrition Notes Initial or Follow up Brief Note Current Diet TF-Nepro w/CARBSTEADY @ 32 ml/ hr (since L 08/16). Height 5 ft 2 in Weight 64.25 kg [place] Body Weight (kg) 50.00 BMI 25.9 Weight change and time frame No body weight change reported . Weight Status Overweight Subjective/Other Information RD consult for routine F/U on TF continuation assessment. Pt reintubated and TF continued at the time of conversation with RN. Still waiting for placement at [facility]. Percent of energy/protein needs met: Prescribed Nepro w/CARBSTEADY @ 32 ml/hr will provide for energy/protein needs (1,403 Kcal/63 g) 100% Kcal; 82% AA, during LOS. #1 Nutrition Diagnosis Inadequate oral intake Diagnosis Progress(for reassessment Continues documentation) Nutrition Intervention Nutrition Support: Continue Nepro w/CARBSTEADY @ 32 ml/hr. Flush: 50 ml water Q 4 hr until hyponatremia resolves, then 150 ml Q 4 hr. % RDI: 100% Kcal; 82% AA. Goal #1 Provide at least 75% of energy /protein needs through Enteral Feeding during LOS. Follow-Up By: 08/26/21 Additional Comments Continue monitoring TF tolerance, and BM.
--- NOTE | 2021-08-22 13:37 | Progress Note ---
Assessment and Plan - Patient Problems (1) End stage renal disease on dialysis Current Visit: Yes Status: Chronic Plan to address problem: Cont hemodialysis on a Thursday, Thursday and Thursday schedule. cleared for CT neck with IV contrast this PM from renal stand point. Will arrange HD for AM (2) Hypokalemia Current Visit: Yes Status: Acute Plan to address problem: Potassium is back to normal. Follow-up (3) Anemia in end-stage renal disease Current Visit: Yes Status: Acute Plan to address problem: Give erythropoietin on dialysis and follow-up hemoglobin level (4) VT (ventricular tachycardia) Current Visit: Yes Status: Acute Plan to address problem: Continue management by [facility]. Awaiting transfer to [place] for VT ablation Subjective Date of service: 08/22/21 Principal diagnosis: Recurrent VT Interval history: Pt seen and examined in the ICU, intubated, on vent support Objective - Vital Signs Vital signs: Vital Signs - 12hr 08/22/21 08/22/21 08/22/21 01:45 02:00 02:15 Temperature Pulse Rate 70 70 Pulse Rate [ From Monitor] Respiratory 14 10 L Rate Blood Pressure 139/58 132/59 132/59 O2 Sat by Pulse 99 99 Oximetry 08/22/21 08/22/21 08/22/21 02:31 02:45 03:00 Temperature Pulse Rate 70 70 70 Pulse Rate [ From Monitor] Respiratory 11 L 11 L 11 L Rate Blood Pressure 132/59 132/59 126/49 O2 Sat by Pulse 100 100 Oximetry 08/22/21 08/22/21 08/22/21 03:15 03:31 03:45 Temperature Pulse Rate 70 70 70 Pulse Rate [ From Monitor] Respiratory 10 L 7 L 14 Rate Blood Pressure 126/49 126/49 126/49 O2 Sat by Pulse 100 100 99 Oximetry 08/22/21 08/22/21 08/22/21 03:51 04:00 04:01 Temperature 98.1 F Pulse Rate 70 70 70 Pulse Rate [ 70 From Monitor] Respiratory 11 L 13 Rate Blood Pressure 126/49 137/53 O2 Sat by Pulse 98 100 100 Oximetry 08/22/21 08/22/21 08/22/21 04:15 04:31 04:45 Temperature Pulse Rate 70 70 70 Pulse Rate [ From Monitor] Respiratory 11 L 11 L 11 L Rate Blood Pressure 137/53 137/53 137/53 O2 Sat by Pulse 100 100 99 Oximetry 08/22/21 08/22/21 08/22/21 05:01 05:15 05:28 Temperature Pulse Rate 70 70 70 Pulse Rate [ From Monitor] Respiratory 13 9 L Rate Blood Pressure 132/60 132/60 132/60 O2 Sat by Pulse 99 Oximetry 08/22/21 08/22/21 08/22/21 05:29 05:31 05:45 Temperature Pulse Rate 70 70 70 Pulse Rate [ From Monitor] Respiratory 12 12 Rate Blood Pressure 132/60 132/60 132/60 O2 Sat by Pulse 97 99 Oximetry 08/22/21 08/22/21 08/22/21 06:00 06:15 06:31 Temperature Pulse Rate 70 70 70 Pulse Rate [ From Monitor] Respiratory 13 12 11 L Rate Blood Pressure 151/60 151/60 151/60 O2 Sat by Pulse 99 100 Oximetry 08/22/21 08/22/21 08/22/21 06:45 07:00 07:15 Temperature Pulse Rate 70 70 70 Pulse Rate [ From Monitor] Respiratory 10 L 15 14 Rate Blood Pressure 151/60 134/56 134/56 O2 Sat by Pulse 100 100 98 Oximetry 08/22/21 08/22/21 08/22/21 07:31 07:45 08:00 Temperature 98.0 F Pulse Rate 70 70 70 Pulse Rate [ 70 From Monitor] Respiratory 12 13 12 Rate Blood Pressure 134/56 134/56 143/59 O2 Sat by Pulse 99 Oximetry 08/22/21 08/22/21 08/22/21 08:15 08:27 08:31 Temperature Pulse Rate 70 70 70 Pulse Rate [ From Monitor] Respiratory 13 12 Rate Blood Pressure 143/59 143/59 143/59 O2 Sat by Pulse 99 100 100 Oximetry 08/22/21 08/22/21 08/22/21 08:45 09:00 09:15 Temperature Pulse Rate 70 70 70 Pulse Rate [ From Monitor] Respiratory 13 12 13 Rate Blood Pressure 143/59 141/63 141/63 O2 Sat by Pulse 99 99 100 Oximetry 08/22/21 08/22/21 08/22/21 09:31 09:38 09:45 Temperature Pulse Rate 70 70 70 Pulse Rate [ From Monitor] Respiratory 12 16 Rate Blood Pressure 141/63 141/63 141/63 O2 Sat by Pulse 99 100 Oximetry 08/22/21 08/22/21 08/22/21 10:00 10:15 10:30 Temperature Pulse Rate 70 70 70 Pulse Rate [ From Monitor] Respiratory 12 13 12 Rate Blood Pressure 140/57 140/57 140/57 O2 Sat by Pulse 99 100 99 Oximetry 08/22/21 08/22/21 08/22/21 10:41 10:46 11:00 Temperature Pulse Rate 70 70 70 Pulse Rate [ From Monitor] Respiratory 12 12 Rate Blood Pressure 149/59 140/57 154/59 O2 Sat by Pulse 100 100 Oximetry 08/22/21 08/22/21 08/22/21 11:16 11:30 11:46 Temperature Pulse Rate 70 70 70 Pulse Rate [ From Monitor] Respiratory 12 14 13 Rate Blood Pressure 154/59 154/59 154/59 O2 Sat by Pulse 100 100 100 Oximetry 08/22/21 08/22/21 08/22/21 11:53 12:00 12:16 Temperature 99.0 F Pulse Rate 70 70 Pulse Rate [ 70 From Monitor] Respiratory 13 13 Rate Blood Pressure 151/58 151/58 O2 Sat by Pulse 100 100 Oximetry 08/22/21 08/22/21 08/22/21 12:28 12:30 12:46 Temperature Pulse Rate 70 70 70 Pulse Rate [ From Monitor] Respiratory 12 12 Rate Blood Pressure 151/58 151/58 151/58 O2 Sat by Pulse 99 100 99 Oximetry 08/22/21 08/22/21 08/22/21 13:00 13:16 13:30 Temperature Pulse Rate 70 70 70 Pulse Rate [ From Monitor] Respiratory 13 12 13 Rate Blood Pressure 159/59 159/59 159/59 O2 Sat by Pulse 100 100 100 Oximetry - General Appearance General appearance: well-developed, appears stated age, sedated on ventilator, intubated EENT: ATNC, PERRL, mucous membranes moist Neck: no JVD Respiratory: Present: Clear to Ascultation Cardiology: regular, S1S2 Gastrointestinal: normoactive bowel sounds Integumentary: no rash Neurologic: other (intubated, sedated ) - Lab 08/21/21 08:15 08/21/21 08:15 Most recent lab results ABG pH 7.508 (7.320-7.450) H 08/20/21 04:25 ABG pCO2 41.2 mm Hg 08/09/21 04:30 ABG pO2 91.5 mm Hg (80.0-90.0) H 08/09/21 04:30 ABG HCO3 26.6 mmol/L (20.0-26.0) H 08/09/21 04:30 ABG O2 Saturation 99.1 (0-100) 08/20/21 04:25 Calcium 9.1 mg/dL (8.4-10.2) 08/21/21 08:15 Phosphorus 4.30 mg/dL (2.5-4.5) D 08/21/21 08:15 Magnesium 2.00 mg/dL (1.7-2.3) 08/21/21 08:15 Medications & Allergies - Medications Allergies/Adverse Reactions: Allergies No Known Allergies Allergy (Unverified 07/10/21 20:57) Home Medications: Home Medications Medication Instructions Recorded Confirmed Last Taken Type Icosapent Ethyl [Vascepa] 2 gm PO BID 07/12/21 07/12/21 Unknown History Losartan [Cozaar] 25 mg PO BID 07/12/21 07/12/21 Unknown History ALBUTEROL NEB's [Proventil 0.083% 2.5 mg IH Q4HRT PRN nebu 07/15/21 Unknown Rx NEBS] Acetaminophen [Acetaminophen 650 mg HI Q4H PRN supp.rect 07/15/21 Unknown Rx SUPPOS] Acetaminophen [Acetaminophen TAB] 650 mg PO Q4H PRN tablet 07/15/21 Unknown Rx Amiodarone [Cordarone 200 MG TAB] 200 mg PO BID tablet 07/15/21 Unknown Rx AtorvaSTATin [Lipitor] 80 mg PO QHS tablet 07/15/21 Unknown Rx Clopidogrel [Plavix] 75 mg PO QDAY tablet 07/15/21 Unknown Rx Dextrose 50% in Water [D50W (25GM) 50 ml IV Q30MIN PRN syringe 07/15/21 Unknown Rx Syringe] Free Water 60 ml PO Q4HR oral.liqd 07/15/21 Unknown Rx Isosorbide Dinitrate [Isordil] 5 mg PO Q8HR tablet 07/15/21 Unknown Rx Lipase/Protease/Amylase [Pancreaze 1 each FEEDTUBE PRN PRN capsule 07/15/[address] 10,500 Unit] Lispro Insulin [HumaLOG] 0 unit SUB-Q Q6HR units 07/15/21 Unknown Rx Metoprolol [Lopressor TAB] 25 mg PO TID tablet 07/15/21 Unknown Rx Simple Syrup 30 ml FEEDTUBE PRN PRN oral.liqd 07/15/21 Unknown Rx hydrALAZINE [Apresoline INJ] 10 mg IV Q6H PRN vial 07/15/21 Unknown Rx Active Medications: Generic Name Dose Route Start Last Admin Trade Name Freq PRN Reason Stop Dose Admin Acetaminophen 650 mg 08/06/21 16:30 08/06/21 16:30 Acetaminophen 650 Mg Rect Supp HI 650 mg Q6H PRN Administration Pain, Mild (1-3) Albuterol 2.5 mg 08/05/21 20:59 Albuterol 2.5 Mg/3 Ml Nebu IH Q4HRT PRN Shortness Of Breath Amiodarone HCl 400 mg 08/14/21 11:00 08/22/21 09:39 Amiodarone 200 Mg Tab PO 400 mg BID JODI Administration Lipase/Protease/Amylase 1 each 08/07/21 09:47 Lipase 10,500/Protease 25,000/Amylase 43,750 (Units) Dr Thomas FEEDTUBE PRN PRN For Clogged Feeding Tube Aspirin 81 mg 08/07/21 10:00 08/22/21 09:38 Aspirin 81 Mg Tab Chew PO 81 mg QDAY JODI Administration Atorvastatin Calcium 80 mg 08/05/21 22:00 08/21/21 22:41 Atorvastatin 40 Mg Tab PO 80 mg QHS JODI Administration Clonidine HCl 0.2 mg 08/20/21 10:00 08/22/21 10:41 Clonidine 0.2 Mg Tab PO 0.2 mg Q12HR JODI Administration Clopidogrel Bisulfate 75 mg 08/10/21 10:00 08/22/21 09:39 Clopidogrel 75 Mg Tab PO 75 mg QDAY JODI Administration Dextrose 50 ml 08/17/21 18:00 Dextrose 50% In Water (25gm) 50 Ml Syringe IV Q30MIN PRN Hypoglycemia Protocol Famotidine 10 mg 08/09/21 22:00 08/22/21 09:39 Famotidine 10 Mg Tab PO 10 mg BID JODI Administration Fentanyl 50 mcg 08/16/21 11:48 08/22/21 05:29 Fentanyl 100 Mcg/2 Ml Inj IV 50 mcg Q2H PRN Administration Pain, Moderate (4-6) Heparin Sodium (Porcine) 5,000 unit 08/11/21 10:00 08/22/21 09:38 Heparin 5,000 Unit/1 Ml Vial SUB-Q 5,000 unit Q12HR JODI Administration Hydralazine HCl 10 mg 08/06/21 04:21 08/15/21 07:53 Hydralazine 20 Mg/1 Ml Inj IV 10 mg Q6HR PRN Administration Hypertension Hydralazine HCl 50 mg 08/21/21 14:00 08/22/21 05:29 Hydralazine 25 Mg Tab PO 50 mg Q8HR JODI Administration Hydrophilic Ointment 1 applic 08/05/21 17:25 Lip Therapy Vaseline TP Q2HR PRN Dry Lips Sodium Chloride 100 mls @ 999 mls/hr 08/14/21 17:06 Nacl 0.9% IV GLENDY PRN Hypotension Dexmedetomidine HCl 400 mcg/ 104 mls @ 3.341 mls/hr 08/20/21 10:00 08/22/21 08:09 Sodium Chloride IV 1.2 mcg/kg/hr TITRATE JODI 20.046 mls/hr Administration Protocol 0.2 MCG/KG/HR Insulin Human Regular 0 units 08/17/21 18:00 08/22/21 12:10 Insulin Regular, Human 100 Units/1 Ml SUB-Q 2 units Q6H JODI Administration Protocol Isosorbide Dinitrate 20 mg 08/11/21 14:00 08/22/21 05:28 Isosorbide Dinitrate 20 Mg Tab PO 20 mg Q8HR JODI Administration Losartan Potassium 100 mg 08/12/21 10:00 08/22/21 10:41 Losartan 25 Mg Tab PO 100 mg DAILY JODI Administration Methylprednisolone Sodium Succinate 40 mg 08/16/21 13:00 08/22/21 12:10 Methylprednisolone Sod Succinate 40 Mg/1 Ml Inj IV 40 mg Q6HR JODI Administration Metoclopramide HCl 5 mg 08/05/21 21:03 Metoclopramide 10 Mg/2 Ml Inj IV Q6H PRN Nausea And Vomiting Metoprolol Tartrate 100 mg 08/12/21 12:00 08/22/21 09:38 Metoprolol Tartrate 50 Mg Tab PO 100 mg BID JODI Administration Multi-Ingred Cream/Lotion/Oil/Oint 1 applic 08/05/21 17:25 Mineral Oil/Petrolatum, White Ophth Oint 3.5 Gm OU Q4HR PRN Dry Eye(s) Ondansetron HCl 4 mg 08/05/21 21:03 Ondansetron 4 Mg/2 Ml Inj IV Q8H PRN Nausea And Vomiting Oxycodone/Acetaminophen 1 tab 08/05/21 21:03 08/22/21 01:52 Oxycodone /Acetaminophen 5-325mg Tab PO 1 tab Q6H PRN Administration Pain, Moderate (4-6) Quetiapine Fumarate 25 mg 08/21/21 12:00 08/22/21 09:38 Quetiapine 25 Mg Tab PO 25 mg BID JODI Administration Senna 8.8 mg 08/07/21 13:00 08/22/21 09:38 Sennosides Oral Liqd 8.8 Mg/5 Ml Oral Liqd FEEDTUBE 8.8 mg BID JODI Administration Simple Syrup 15 ml 08/07/21 09:47 Simple Syrup 15 Ml FEEDTUBE PRN PRN Hypoglycemia Simple Syrup 30 ml 08/07/21 09:47 Simple Syrup 15 Ml FEEDTUBE PRN PRN Hypoglycemia Sodium Bicarbonate 325 mg 08/07/21 09:47 Sodium Bicarbonate 325 Mg Tab FEEDTUBE PRN PRN For Clogged Feeding Tube Sodium Chloride 10 ml 08/05/21 22:00 08/22/21 09:39 Sodium Chloride 0.9% 10 Ml Flush Syringe IV 10 ml BID JODI Administration Sodium Chloride 10 ml 08/05/21 21:03 Sodium Chloride 0.9% 10 Ml Flush Syringe IV PRN PRN LINE FLUSH
--- NOTE | 2021-08-22 14:29 | Progress Note ---
Assessment and Plan 60 y/o female with known VT in the past, systolic heart failure with BIV AICD admitted with recurrent VT and electrolyte abnormality 08/22/21: Not a candidate for extubation until evaluated by ENT and they review images. ENT not available at this hospital. Now she needs transfer more than ever as she has two issues that we are not able to manage currently. Continue supportive care. Daily PSV trials off sedation. Not sure that steroids are helping, will likely stop tomorrow after discussing on rounds. 08/21/21: No leak on test today. Will do neck CT noncontrast to look for extrisinc issues or potential swelling. Will consult surgery for trach and peg. Await bed at [facility]. Guarded prognosis. 08/20/21: Leak test today. If not audible leak, then will give 2 of FFP. Daily leak test should be performed. may need trach if FFP does not work. No runs of VT stable. If bed becomes available at [place] will transfer. 08/19/21: Continue IV steroids until leak test today. If leak is present will likely stop steroids. Will consider extubation yet again however if fails this time will need trach. Continue rate control therapy. Guarded prognosis. 08/16/21: Still no beds at [place]. Will do a leak test this afternoon. If no leak, then will start IV steroid therapy. Patient was only intubated for airway protection to help with catecholamine storm associated with VT storm. No prior lung disease. The multiple intubation may have caused some scarring in the trachea but right now this is not known. Continue supportive measures but may end up needing trach. 08/15/21: Will discuss with CM if any further news on LTACH acceptance. Attempt PSV trials today. BP still elevated and still on Cardene despite increase in med therapy. Will discuss with cards, and renal, and pharm on rounds. 08/14/21: Given no ICU beds at [place], will attempt to transfer to [place] [facility] with hopes that patient can get ablation and then be transferred back over for further vent weaning. Not sure exactly why she failed yesterday but transfer to LTACH makes most sense in the event she will be a penitentiary wean. Agree with cards increasing therapy for HTN. Will attempt to wean Cardene 08/13/21: Will start Clonidine 0.1 TID given her persistent need for Cardene drip. Will extubate today and transfer to tele floor. Hoping this will help the patient get a bed faster at [place]. Rate control per cards. 08/12/21: Will discontinue cardene while on HD as goal is to pull 3 liters. Will speak with cards and ask them to call [place] to see if they have a time frame. Continue supportive measures. Remains on Amio Drip. 08/08/21: Continue supportive measures. Follow up any new cardiac recs. 08/07/21: Await transfer to [place], continue supportive measures Follow up cards recs most likely needs ablation at [facility] Continue amio drip per cards CCt 31 minutes. Subjective Date of service: 08/22/21 Principal diagnosis: Recurrent VT Interval history: CT scan of neck is abnormal. There is a lesion just distal to the first tracheal ring that is causing narrowing of the airway. opens up past second tracheal ring Objective Vital Signs - 12hr 08/22/21 08/22/21 08/22/21 02:31 02:45 03:00 Temperature Pulse Rate 70 70 70 Pulse Rate [ From Monitor] Respiratory 11 L 11 L 11 L Rate Blood Pressure 132/59 132/59 126/49 O2 Sat by Pulse 100 100 Oximetry 08/22/21 08/22/21 08/22/21 03:15 03:31 03:45 Temperature Pulse Rate 70 70 70 Pulse Rate [ From Monitor] Respiratory 10 L 7 L 14 Rate Blood Pressure 126/49 126/49 126/49 O2 Sat by Pulse 100 100 99 Oximetry 08/22/21 08/22/21 08/22/21 03:51 04:00 04:01 Temperature 98.1 F Pulse Rate 70 70 70 Pulse Rate [ 70 From Monitor] Respiratory 11 L 13 Rate Blood Pressure 126/49 137/53 O2 Sat by Pulse 98 100 100 Oximetry 08/22/21 08/22/21 08/22/21 04:15 04:31 04:45 Temperature Pulse Rate 70 70 70 Pulse Rate [ From Monitor] Respiratory 11 L 11 L 11 L Rate Blood Pressure 137/53 137/53 137/53 O2 Sat by Pulse 100 100 99 Oximetry 08/22/21 08/22/21 08/22/21 05:01 05:15 05:28 Temperature Pulse Rate 70 70 70 Pulse Rate [ From Monitor] Respiratory 13 9 L Rate Blood Pressure 132/60 132/60 132/60 O2 Sat by Pulse 99 Oximetry 08/22/21 08/22/21 08/22/21 05:29 05:31 05:45 Temperature Pulse Rate 70 70 70 Pulse Rate [ From Monitor] Respiratory 12 12 Rate Blood Pressure 132/60 132/60 132/60 O2 Sat by Pulse 97 99 Oximetry 08/22/21 08/22/21 08/22/21 06:00 06:15 06:31 Temperature Pulse Rate 70 70 70 Pulse Rate [ From Monitor] Respiratory 13 12 11 L Rate Blood Pressure 151/60 151/60 151/60 O2 Sat by Pulse 99 100 Oximetry 08/22/21 08/22/21 08/22/21 06:45 07:00 07:15 Temperature Pulse Rate 70 70 70 Pulse Rate [ From Monitor] Respiratory 10 L 15 14 Rate Blood Pressure 151/60 134/56 134/56 O2 Sat by Pulse 100 100 98 Oximetry 08/22/21 08/22/21 08/22/21 07:31 07:45 08:00 Temperature 98.0 F Pulse Rate 70 70 70 Pulse Rate [ 70 From Monitor] Respiratory 12 13 12 Rate Blood Pressure 134/56 134/56 143/59 O2 Sat by Pulse 99 Oximetry 08/22/21 08/22/21 08/22/21 08:15 08:27 08:31 Temperature Pulse Rate 70 70 70 Pulse Rate [ From Monitor] Respiratory 13 12 Rate Blood Pressure 143/59 143/59 143/59 O2 Sat by Pulse 99 100 100 Oximetry 08/22/21 08/22/21 08/22/21 08:45 09:00 09:15 Temperature Pulse Rate 70 70 70 Pulse Rate [ From Monitor] Respiratory 13 12 13 Rate Blood Pressure 143/59 141/63 141/63 O2 Sat by Pulse 99 99 100 Oximetry 08/22/21 08/22/21 08/22/21 09:31 09:38 09:45 Temperature Pulse Rate 70 70 70 Pulse Rate [ From Monitor] Respiratory 12 16 Rate Blood Pressure 141/63 141/63 141/63 O2 Sat by Pulse 99 100 Oximetry 08/22/21 08/22/21 08/22/21 10:00 10:15 10:30 Temperature Pulse Rate 70 70 70 Pulse Rate [ From Monitor] Respiratory 12 13 12 Rate Blood Pressure 140/57 140/57 140/57 O2 Sat by Pulse 99 100 99 Oximetry 0108/22/21 08/22/21 10:41 10:46 11:00 Temperature Pulse Rate 70 70 70 Pulse Rate [ From Monitor] Respiratory 12 12 Rate Blood Pressure 149/59 140/57 154/59 O2 Sat by Pulse 100 100 Oximetry 08/22/21 08/22/21 08/22/21 11:16 11:30 11:46 Temperature Pulse Rate 70 70 70 Pulse Rate [ From Monitor] Respiratory 12 14 13 Rate Blood Pressure 154/59 154/59 154/59 O2 Sat by Pulse 100 100 100 Oximetry 08/22/21 08/22/21 08/22/21 11:53 12:00 12:16 Temperature 99.0 F Pulse Rate 70 70 Pulse Rate [ 70 From Monitor] Respiratory 13 13 Rate Blood Pressure 151/58 151/58 O2 Sat by Pulse 100 100 Oximetry 08/22/21 08/22/21 08/22/21 12:28 12:30 12:46 Temperature Pulse Rate 70 70 70 Pulse Rate [ From Monitor] Respiratory 12 12 Rate Blood Pressure 151/58 151/58 151/58 O2 Sat by Pulse 99 100 99 Oximetry 08/22/21 08/22/21 08/22/21 13:00 13:16 13:30 Temperature Pulse Rate 70 70 70 Pulse Rate [ From Monitor] Respiratory 13 12 13 Rate Blood Pressure 159/59 159/59 159/59 O2 Sat by Pulse 100 100 100 Oximetry 08/22/21 13:57 Temperature Pulse Rate 70 Pulse Rate [ From Monitor] Respiratory Rate Blood Pressure 159/59 O2 Sat by Pulse Oximetry Constitutional: alert, other (intubated ) Eyes: non-icteric ENT: other (orally intubated, lips swollen) Neck: supple Effort: normal Ascultation: Bilateral: clear Percussion: Bilateral: not dull Cardiovascular: regular rate and rhythm (no mrg) Gastrointestinal: normoactive bowel sounds, soft, non-tender, non-distended Integumentary: normal Extremities: no cyanosis, no edema, pink and warm Neurologic: other (follows commands) Psychiatric: other (unable to assess) CBC and BMP: 08/21/21 08:15 08/21/21 08:15 ABG, PT/INR, D-dimer: ABG ABG pH 7.508 (7.320-7.450) H 08/20/21 04:25 POC ABG pCO2 35.1 mmHg (32.0-48.0) 08/20/21 04:25 ABG pCO2 41.2 mm Hg 08/09/21 04:30 POC ABG pO2 139.8 mmHg (83-108) H 08/20/21 04:25 ABG pO2 91.5 mm Hg (80.0-90.0) H 08/09/21 04:30 POC ABG HCO3 27.3 08/20/21 04:25 ABG O2 Saturation 99.1 (0-100) 08/20/21 04:25 PT/INR, D-dimer PT 14.2 Sec. (12.2-14.9) 08/06/21 16:35 INR 0.99 (0.87-1.13) 08/06/21 16:35 Abnormal lab findings: Abnormal Labs 08/05/21 08/05/21 08/05/21 15:55 15:55 18:50 WBC 3.7 L RBC 2.98 L Hgb 7.5 L Hct 23.8 L MCH 25 L RDW 18.9 H Plt Count 134 L Lymph % (Auto) [place] % (Auto) Lymph # (Auto) Seg Neutrophils % Seg Neuts % (Manual) Lymphocytes % (Manual) Monocytes % (Manual) 18.0 H Eosinophils % (Manual) Basophils % (Manual) 2.0 H Seg Neutrophils # Seg Neutrophils # Man Lymphocytes # (Manual) 0.9 L Monocytes # (Manual) APTT ABG pH 7.523 H POC ABG pCO2 POC ABG pO2 ABG pO2 47.1 L ABG HCO3 34.6 H ABG O2 Saturation 85.4 L ABG Base Excess 10.8 H ABG Hemoglobin 7.3 L ABG Oxyhemoglobin ABG Sodium ABG Potassium ABG Chloride ABG Glucose Oxyhemoglobin 83.6 L Carboxyhemoglobin Sodium Potassium 2.7 L* Chloride 93.8 L Carbon Dioxide 33 H BUN Creatinine 2.8 H Glucose 124 H POC Glucose Calcium 8.2 L Phosphorus ALT < 5 L Troponin T 0.126 H* Total Protein Albumin 3.5 L Triglycerides 202 H HDL Cholesterol 32 L TSH Arterial Blood Glucose Crossmatch 08/05/21 08/05/21 08/06/21 18:56 Unknown 04:20 WBC RBC Hgb Hct MCH RDW Plt Count Lymph % (Auto) [place] % (Auto) Lymph # (Auto) Seg Neutrophils % Seg Neuts % (Manual) Lymphocytes % (Manual) Monocytes % (Manual) Eosinophils % (Manual) Basophils % (Manual) Seg Neutrophils # Seg Neutrophils # Man Lymphocytes # (Manual) Monocytes # (Manual) APTT ABG pH 7.575 H 7.606 H* POC ABG pCO2 POC ABG pO2 ABG pO2 142.9 H 111.2 H ABG HCO3 33.2 H 33.6 H ABG O2 Saturation ABG Base Excess 10.4 H 11.2 H ABG Hemoglobin 6.6 L 6.8 L ABG Oxyhemoglobin ABG Sodium ABG Potassium ABG Chloride ABG Glucose Oxyhemoglobin Carboxyhemoglobin Sodium Potassium Chloride Carbon Dioxide BUN Creatinine Glucose POC Glucose Calcium Phosphorus ALT Troponin T 0.183 H* D Total Protein Albumin Triglycerides HDL Cholesterol TSH Arterial Blood Glucose Crossmatch 08/06/21 08/06/21 08/06/21 04:29 04:29 04:29 WBC 2.5 L RBC 2.70 L Hgb 6.8 L Hct 21.3 L MCH 25 L RDW 18.1 H Plt Count 126 L Lymph % (Auto) 45.0 H [place] % (Auto) 13.6 H Lymph # (Auto) 1.1 L Seg Neutrophils % 37.3 L Seg Neuts % (Manual) Lymphocytes % (Manual) Monocytes % (Manual) Eosinophils % (Manual) Basophils % (Manual) Seg Neutrophils # 0.9 L Seg Neutrophils # Man Lymphocytes # (Manual) Monocytes # (Manual) APTT 38.8 H ABG pH POC ABG pCO2 POC ABG pO2 ABG pO2 ABG HCO3 ABG O2 Saturation ABG Base Excess ABG Hemoglobin ABG Oxyhemoglobin ABG Sodium ABG Potassium ABG Chloride ABG Glucose Oxyhemoglobin Carboxyhemoglobin Sodium 136 L Potassium 3.0 L Chloride 92.6 L Carbon Dioxide 32 H BUN Creatinine 3.8 H Glucose POC Glucose Calcium Phosphorus ALT Troponin T Total Protein 5.8 L Albumin 3.1 L Triglycerides HDL Cholesterol TSH Arterial Blood Glucose Crossmatch 08/06/21 08/06/21 08/06/21 05:30 07:26 07:26 WBC RBC Hgb 7.0 L Hct 22.5 L MCH RDW Plt Count 127 L Lymph % (Auto) [place] % (Auto) Lymph # (Auto) Seg Neutrophils % Seg Neuts % (Manual) Lymphocytes % (Manual) Monocytes % (Manual) Eosinophils % (Manual) Basophils % (Manual) Seg Neutrophils # Seg Neutrophils # Man Lymphocytes # (Manual) Monocytes # (Manual) APTT 37.1 H ABG pH POC ABG pCO2 POC ABG pO2 ABG pO2 ABG HCO3 ABG O2 Saturation ABG Base Excess ABG Hemoglobin ABG Oxyhemoglobin ABG Sodium ABG Potassium ABG Chloride ABG Glucose Oxyhemoglobin Carboxyhemoglobin Sodium Potassium Chloride Carbon Dioxide BUN Creatinine Glucose POC Glucose Calcium Phosphorus ALT Troponin T Total Protein Albumin Triglycerides HDL Cholesterol TSH Arterial Blood Glucose Crossmatch See Detail 08/06/21 08/06/21 08/06/21 08:06 14:50 16:03 WBC RBC Hgb Hct MCH RDW Plt Count Lymph % (Auto) [place] % (Auto) Lymph # (Auto) Seg Neutrophils % Seg Neuts % (Manual) Lymphocytes % (Manual) Monocytes % (Manual) Eosinophils % (Manual) Basophils % (Manual) Seg Neutrophils # Seg Neutrophils # Man Lymphocytes # (Manual) Monocytes # (Manual) APTT ABG pH POC ABG pCO2 POC ABG pO2 ABG pO2 ABG HCO3 ABG O2 Saturation ABG Base Excess ABG Hemoglobin ABG Oxyhemoglobin ABG Sodium ABG Potassium ABG Chloride ABG Glucose Oxyhemoglobin Carboxyhemoglobin Sodium Potassium 3.1 L Chloride 92.4 L Carbon Dioxide 33 H BUN Creatinine 3.9 H Glucose POC Glucose 59 L 121 H Calcium Phosphorus ALT Troponin T Total Protein Albumin Triglycerides HDL Cholesterol TSH Arterial Blood Glucose Crossmatch 08/06/21 08/06/21 08/06/21 16:35 16:35 17:31 WBC 4.2 L RBC 3.27 L Hgb 8.5 L Hct 26.8 L MCH 26 L RDW 18.7 H Plt Count 124 L Lymph % (Auto) [place] % (Auto) 15.5 H Lymph # (Auto) 0.8 L Seg Neutrophils % Seg Neuts % (Manual) Lymphocytes % (Manual) Monocytes % (Manual) Eosinophils % (Manual) Basophils % (Manual) Seg Neutrophils # Seg Neutrophils # Man Lymphocytes # (Manual) Monocytes # (Manual) APTT ABG pH POC ABG pCO2 POC ABG pO2 ABG pO2 ABG HCO3 ABG O2 Saturation ABG Base Excess ABG Hemoglobin ABG Oxyhemoglobin ABG Sodium ABG Potassium ABG Chloride ABG Glucose Oxyhemoglobin Carboxyhemoglobin Sodium 133 L Potassium Chloride 93.2 L Carbon Dioxide BUN 21 H Creatinine 4.6 H Glucose POC Glucose 62 L Calcium 8.3 L Phosphorus ALT Troponin T Total Protein 6.2 L Albumin 3.2 L Triglycerides HDL Cholesterol TSH Arterial Blood Glucose Crossmatch 08/06/21 08/06/21 08/07/21 18:14 18:22 04:00 WBC 1.0 L* RBC 2.67 L Hgb 7.0 L Hct 21.8 L MCH 26 L RDW 18.7 H Plt Count 82 L Lymph % (Auto) [place] % (Auto) Lymph # (Auto) Seg Neutrophils % Seg Neuts % (Manual) 16.0 L Lymphocytes % (Manual) 60.0 H Monocytes % (Manual) Eosinophils % (Manual) 11.0 H Basophils % (Manual) 4.0 H Seg Neutrophils # Seg Neutrophils # Man 0.2 L Lymphocytes # (Manual) 0.6 L Monocytes # (Manual) APTT ABG pH 7.565 H POC ABG pCO2 POC ABG pO2 ABG pO2 113.3 H ABG HCO3 29.4 H ABG O2 Saturation ABG Base Excess 6.9 H ABG Hemoglobin 8.3 L ABG Oxyhemoglobin ABG Sodium ABG Potassium ABG Chloride ABG Glucose Oxyhemoglobin Carboxyhemoglobin Sodium Potassium Chloride Carbon Dioxide BUN Creatinine Glucose POC Glucose 148 H Calcium Phosphorus ALT Troponin T Total Protein Albumin Triglycerides HDL Cholesterol TSH Arterial Blood Glucose Crossmatch 08/07/21 08/07/21 08/07/21 04:00 04:25 08:30 WBC RBC Hgb Hct MCH RDW Plt Count Lymph % (Auto) [place] % (Auto) Lymph # (Auto) Seg Neutrophils % Seg Neuts % (Manual) Lymphocytes % (Manual) Monocytes % (Manual) Eosinophils % (Manual) Basophils % (Manual) Seg Neutrophils # Seg Neutrophils # Man Lymphocytes # (Manual) Monocytes # (Manual) APTT ABG pH 7.609 H* 7.479 H POC ABG pCO2 POC ABG pO2 ABG pO2 121.4 H 130.2 H ABG HCO3 28.5 H 30.3 H ABG O2 Saturation ABG Base Excess 7.2 H 6.2 H ABG Hemoglobin 10.7 L 8.1 L ABG Oxyhemoglobin ABG Sodium ABG Potassium ABG Chloride ABG Glucose Oxyhemoglobin Carboxyhemoglobin Sodium 133 L Potassium 3.2 L D Chloride 93.9 L Carbon Dioxide BUN 23 H Creatinine 4.3 H Glucose POC Glucose Calcium 8.1 L Phosphorus ALT Troponin T Total Protein Albumin Triglycerides HDL Cholesterol TSH Arterial Blood Glucose Crossmatch 08/07/21 08/07/21 08/07/21 13:18 13:30 15:51 WBC RBC Hgb Hct MCH RDW Plt Count Lymph % (Auto) [place] % (Auto) Lymph # (Auto) Seg Neutrophils % Seg Neuts % (Manual) Lymphocytes % (Manual) Monocytes % (Manual) Eosinophils % (Manual) Basophils % (Manual) Seg Neutrophils # Seg Neutrophils # Man Lymphocytes # (Manual) Monocytes # (Manual) APTT ABG pH POC ABG pCO2 POC ABG pO2 ABG pO2 ABG HCO3 ABG O2 Saturation ABG Base Excess ABG Hemoglobin ABG Oxyhemoglobin ABG Sodium ABG Potassium ABG Chloride ABG Glucose Oxyhemoglobin Carboxyhemoglobin Sodium Potassium Chloride Carbon Dioxide BUN Creatinine Glucose POC Glucose 67 L 58 L Calcium Phosphorus ALT Troponin T Total Protein Albumin Triglycerides HDL Cholesterol TSH 7.070 H Arterial Blood Glucose Crossmatch 08/08/21 08/08/21 08/08/21 04:19 04:26 04:26 WBC RBC Hgb 6.8 L Hct 21.6 L MCH RDW Plt Count 91 L Lymph % (Auto) [place] % (Auto) Lymph # (Auto) Seg Neutrophils % Seg Neuts % (Manual) Lymphocytes % (Manual) Monocytes % (Manual) Eosinophils % (Manual) Basophils % (Manual) Seg Neutrophils # Seg Neutrophils # Man Lymphocytes # (Manual) Monocytes # (Manual) APTT ABG pH 7.545 H POC ABG pCO2 POC ABG pO2 ABG pO2 136.1 H ABG HCO3 27.3 H ABG O2 Saturation ABG Base Excess 4.5 H ABG Hemoglobin 6.9 L ABG Oxyhemoglobin ABG Sodium ABG Potassium ABG Chloride ABG Glucose Oxyhemoglobin Carboxyhemoglobin Sodium 132 L Potassium Chloride 93.5 L Carbon Dioxide BUN Creatinine 3.7 H Glucose POC Glucose Calcium Phosphorus ALT Troponin T Total Protein Albumin Triglycerides HDL Cholesterol TSH Arterial Blood Glucose Crossmatch 08/08/21 08/08/21 08/08/21 09:45 12:23 18:51 WBC RBC Hgb Hct MCH RDW Plt Count Lymph % (Auto) [place] % (Auto) Lymph # (Auto) Seg Neutrophils % Seg Neuts % (Manual) Lymphocytes % (Manual) Monocytes % (Manual) Eosinophils % (Manual) Basophils % (Manual) Seg Neutrophils # Seg Neutrophils # Man Lymphocytes # (Manual) Monocytes # (Manual) APTT ABG pH 7.471 H POC ABG pCO2 POC ABG pO2 71.1 L ABG pO2 ABG HCO3 ABG O2 Saturation ABG Base Excess ABG Hemoglobin ABG Oxyhemoglobin ABG Sodium 128.9 L ABG Potassium ABG Chloride 95.0 L ABG Glucose 64 L Oxyhemoglobin Carboxyhemoglobin Sodium Potassium Chloride Carbon Dioxide BUN Creatinine Glucose POC Glucose 58 L 68 L Calcium Phosphorus ALT Troponin T Total Protein Albumin Triglycerides HDL Cholesterol TSH Arterial Blood Glucose 64 L Crossmatch 08/09/21 08/09/21 08/09/21 04:30 04:33 04:33 WBC 2.4 L RBC 3.16 L Hgb 8.3 L Hct 26.5 L MCH 26 L RDW 18.3 H Plt Count 113 L Lymph % (Auto) [place] % (Auto) Lymph # (Auto) Seg Neutrophils % Seg Neuts % (Manual) Lymphocytes % (Manual) Monocytes % (Manual) Eosinophils % (Manual) Basophils % (Manual) Seg Neutrophils # Seg Neutrophils # Man Lymphocytes # (Manual) Monocytes # (Manual) APTT ABG pH POC ABG pCO2 POC ABG pO2 ABG pO2 91.5 H ABG HCO3 26.6 H ABG O2 Saturation ABG Base Excess ABG Hemoglobin 9.0 L ABG Oxyhemoglobin ABG Sodium ABG Potassium ABG Chloride ABG Glucose Oxyhemoglobin Carboxyhemoglobin Sodium 129 L Potassium Chloride 91.9 L Carbon Dioxide BUN 22 H Creatinine 4.7 H Glucose POC Glucose Calcium Phosphorus ALT Troponin T Total Protein Albumin Triglycerides HDL Cholesterol TSH Arterial Blood Glucose Crossmatch 08/10/21 08/10/21 08/10/21 04:00 04:00 04:55 WBC 3.3 L RBC 3.32 L Hgb 8.9 L Hct 27.6 L MCH 27 L RDW 18.3 H Plt Count Lymph % (Auto) [place] % (Auto) Lymph # (Auto) Seg Neutrophils % Seg Neuts % (Manual) Lymphocytes % (Manual) Monocytes % (Manual) 9.0 H Eosinophils % (Manual) Basophils % (Manual) Seg Neutrophils # Seg Neutrophils # Man Lymphocytes # (Manual) 0.6 L Monocytes # (Manual) APTT ABG pH POC ABG pCO2 POC ABG pO2 ABG pO2 ABG HCO3 ABG O2 Saturation ABG Base Excess ABG Hemoglobin 9.6 L ABG Oxyhemoglobin ABG Sodium 120.3 L ABG Potassium 5.2 H ABG Chloride 88.0 L ABG Glucose Oxyhemoglobin Carboxyhemoglobin 0.4 L Sodium 123 L Potassium 5.5 H D Chloride 84.8 L Carbon Dioxide BUN 30 H Creatinine 5.5 H Glucose 139 H POC Glucose Calcium Phosphorus 5.90 H ALT Troponin T Total Protein Albumin Triglycerides HDL Cholesterol TSH Arterial Blood Glucose Crossmatch 08/10/21 08/11/21 08/11/21 12:17 04:00 05:53 WBC RBC 3.50 L Hgb 9.2 L Hct 29.0 L MCH 26 L RDW 18.4 H Plt Count Lymph % (Auto) [place] % (Auto) Lymph # (Auto) Seg Neutrophils % Seg Neuts % (Manual) 76.0 H Lymphocytes % (Manual) 8.0 L Monocytes % (Manual) 13.0 H Eosinophils % (Manual) Basophils % (Manual) Seg Neutrophils # Seg Neutrophils # Man Lymphocytes # (Manual) 0.6 L Monocytes # (Manual) 0.9 H APTT ABG pH POC ABG pCO2 POC ABG pO2 ABG pO2 ABG HCO3 ABG O2 Saturation ABG Base Excess ABG Hemoglobin ABG Oxyhemoglobin ABG Sodium ABG Potassium ABG Chloride ABG Glucose Oxyhemoglobin Carboxyhemoglobin Sodium 128 L Potassium Chloride 90.3 L Carbon Dioxide BUN 24 H Creatinine 4.3 H Glucose 135 H POC Glucose 142 H Calcium Phosphorus ALT Troponin T Total Protein Albumin Triglycerides HDL Cholesterol TSH Arterial Blood Glucose Crossmatch 08/11/21 08/12/21 08/12/21 16:39 05:23 05:23 WBC RBC 3.20 L Hgb 8.8 L Hct 26.7 L MCH RDW 18.6 H Plt Count Lymph % (Auto) [place] % (Auto) Lymph # (Auto) Seg Neutrophils % Seg Neuts % (Manual) Lymphocytes % (Manual) Monocytes % (Manual) Eosinophils % (Manual) Basophils % (Manual) Seg Neutrophils # Seg Neutrophils # Man Lymphocytes # (Manual) Monocytes # (Manual) APTT ABG pH POC ABG pCO2 POC ABG pO2 ABG pO2 ABG HCO3 ABG O2 Saturation ABG Base Excess ABG Hemoglobin ABG Oxyhemoglobin ABG Sodium ABG Potassium ABG Chloride ABG Glucose Oxyhemoglobin Carboxyhemoglobin Sodium 125 L Potassium Chloride 86.6 L Carbon Dioxide 21 L BUN 34 H Creatinine 5.0 H Glucose 111 H POC Glucose 112 H Calcium Phosphorus ALT Troponin T Total Protein Albumin Triglycerides HDL Cholesterol TSH Arterial Blood Glucose Crossmatch 08/12/21 08/12/21 08/13/21 12:18 17:56 06:01 WBC RBC Hgb Hct MCH RDW Plt Count Lymph % (Auto) [place] % (Auto) Lymph # (Auto) Seg Neutrophils % Seg Neuts % (Manual) Lymphocytes % (Manual) Monocytes % (Manual) Eosinophils % (Manual) Basophils % (Manual) Seg Neutrophils # Seg Neutrophils # Man Lymphocytes # (Manual) Monocytes # (Manual) APTT ABG pH POC ABG pCO2 POC ABG pO2 ABG pO2 ABG HCO3 ABG O2 Saturation ABG Base Excess ABG Hemoglobin ABG Oxyhemoglobin ABG Sodium ABG Potassium ABG Chloride ABG Glucose Oxyhemoglobin Carboxyhemoglobin Sodium Potassium Chloride Carbon Dioxide BUN Creatinine Glucose POC Glucose 140 H 119 H 110 H Calcium Phosphorus ALT Troponin T Total Protein Albumin Triglycerides HDL Cholesterol TSH Arterial Blood Glucose Crossmatch 08/13/21 08/13/21 08/14/21 Unknown Unknown 04:00 WBC RBC Hgb Hct MCH RDW Plt Count Lymph % (Auto) [place] % (Auto) Lymph # (Auto) Seg Neutrophils % Seg Neuts % (Manual) Lymphocytes % (Manual) Monocytes % (Manual) Eosinophils % (Manual) Basophils % (Manual) Seg Neutrophils # Seg Neutrophils # Man Lymphocytes # (Manual) Monocytes # (Manual) APTT ABG pH POC ABG pCO2 POC ABG pO2 ABG pO2 ABG HCO3 ABG O2 Saturation ABG Base Excess ABG Hemoglobin ABG Oxyhemoglobin ABG Sodium ABG Potassium ABG Chloride ABG Glucose Oxyhemoglobin Carboxyhemoglobin Sodium 129 L 128 L Potassium Chloride 90.1 L 89.7 L Carbon Dioxide BUN 24 H 36 H Creatinine 3.8 H 4.2 H Glucose POC Glucose Calcium Phosphorus ALT Troponin T Total Protein Albumin Triglycerides 399 H HDL Cholesterol TSH Arterial Blood Glucose Crossmatch 08/14/21 08/14/21 08/14/21 05:44 11:57 13:12 WBC RBC Hgb Hct MCH RDW Plt Count Lymph % (Auto) [place] % (Auto) Lymph # (Auto) Seg Neutrophils % Seg Neuts % (Manual) Lymphocytes % (Manual) Monocytes % (Manual) Eosinophils % (Manual) Basophils % (Manual) Seg Neutrophils # Seg Neutrophils # Man Lymphocytes # (Manual) Monocytes # (Manual) APTT ABG pH 7.498 H POC ABG pCO2 29.1 L POC ABG pO2 61.8 L ABG pO2 ABG HCO3 ABG O2 Saturation ABG Base Excess ABG Hemoglobin 8.6 L ABG Oxyhemoglobin 91.9 L ABG Sodium 126.4 L ABG Potassium ABG Chloride 92.0 L ABG Glucose 99 H Oxyhemoglobin Carboxyhemoglobin Sodium Potassium Chloride Carbon Dioxide BUN Creatinine Glucose POC Glucose 111 H 111 H Calcium Phosphorus ALT Troponin T Total Protein Albumin Triglycerides HDL Cholesterol TSH Arterial Blood Glucose 99 H Crossmatch 08/14/21 08/15/21 08/15/21 Unknown 04:34 04:34 WBC RBC 3.14 L 2.79 L Hgb 8.5 L 7.8 L Hct 25.5 L 22.8 L MCH 27 L RDW 19.1 H 18.8 H Plt Count Lymph % (Auto) [place] % (Auto) Lymph # (Auto) Seg Neutrophils % Seg Neuts % (Manual) Lymphocytes % (Manual) Monocytes % (Manual) Eosinophils % (Manual) Basophils % (Manual) Seg Neutrophils # Seg Neutrophils # Man Lymphocytes # (Manual) Monocytes # (Manual) APTT ABG pH POC ABG pCO2 POC ABG pO2 ABG pO2 ABG HCO3 ABG O2 Saturation ABG Base Excess ABG Hemoglobin ABG Oxyhemoglobin ABG Sodium ABG Potassium ABG Chloride ABG Glucose Oxyhemoglobin Carboxyhemoglobin Sodium 128 L Potassium Chloride 88.8 L Carbon Dioxide BUN 44 H Creatinine 5.1 H Glucose POC Glucose Calcium Phosphorus ALT Troponin T Total Protein Albumin Triglycerides HDL Cholesterol TSH Arterial Blood Glucose Crossmatch 08/15/21 08/15/21 08/15/21 05:22 10:56 16:52 WBC RBC Hgb Hct MCH RDW Plt Count Lymph % (Auto) [place] % (Auto) Lymph # (Auto) Seg Neutrophils % Seg Neuts % (Manual) Lymphocytes % (Manual) Monocytes % (Manual) Eosinophils % (Manual) Basophils % (Manual) Seg Neutrophils # Seg Neutrophils # Man Lymphocytes # (Manual) Monocytes # (Manual) APTT ABG pH 7.496 H POC ABG pCO2 29.8 L POC ABG pO2 ABG pO2 ABG HCO3 ABG O2 Saturation ABG Base Excess ABG Hemoglobin 7.4 L ABG Oxyhemoglobin ABG Sodium 124.3 L ABG Potassium ABG Chloride 92.0 L ABG Glucose Oxyhemoglobin Carboxyhemoglobin Sodium Potassium Chloride Carbon Dioxide BUN Creatinine Glucose POC Glucose 111 H 115 H Calcium Phosphorus ALT Troponin T Total Protein Albumin Triglycerides HDL Cholesterol TSH Arterial Blood Glucose Crossmatch 08/16/21 08/16/21 08/16/21 04:00 04:00 10:57 WBC RBC 2.96 L Hgb 8.0 L Hct 23.9 L MCH 27 L RDW 18.6 H Plt Count Lymph % (Auto) [place] % (Auto) Lymph # (Auto) Seg Neutrophils % Seg Neuts % (Manual) Lymphocytes % (Manual) Monocytes % (Manual) Eosinophils % (Manual) Basophils % (Manual) Seg Neutrophils # Seg Neutrophils # Man Lymphocytes # (Manual) Monocytes # (Manual) APTT ABG pH POC ABG pCO2 POC ABG pO2 ABG pO2 ABG HCO3 ABG O2 Saturation ABG Base Excess ABG Hemoglobin ABG Oxyhemoglobin ABG Sodium ABG Potassium ABG Chloride ABG Glucose Oxyhemoglobin Carboxyhemoglobin Sodium 132 L Potassium Chloride 93.1 L Carbon Dioxide BUN 26 H Creatinine 3.9 H Glucose 119 H POC Glucose 112 H Calcium Phosphorus ALT Troponin T Total Protein Albumin Triglycerides HDL Cholesterol TSH Arterial Blood Glucose Crossmatch 08/16/21 08/17/21 08/17/21 23:20 04:00 04:00 WBC RBC 3.07 L Hgb 8.1 L Hct 25.0 L MCH 26 L RDW 19.3 H Plt Count Lymph % (Auto) [place] % (Auto) Lymph # (Auto) Seg Neutrophils % Seg Neuts % (Manual) Lymphocytes % (Manual) Monocytes % (Manual) Eosinophils % (Manual) Basophils % (Manual) Seg Neutrophils # Seg Neutrophils # Man Lymphocytes # (Manual) Monocytes # (Manual) APTT ABG pH POC ABG pCO2 POC ABG pO2 ABG pO2 ABG HCO3 ABG O2 Saturation ABG Base Excess ABG Hemoglobin ABG Oxyhemoglobin ABG Sodium ABG Potassium ABG Chloride ABG Glucose Oxyhemoglobin Carboxyhemoglobin Sodium 135 L Potassium Chloride 97.4 L Carbon Dioxide BUN 20 H Creatinine 3.0 H Glucose 171 H POC Glucose 125 H Calcium Phosphorus ALT Troponin T Total Protein Albumin Triglycerides HDL Cholesterol TSH Arterial Blood Glucose Crossmatch 08/17/21 08/17/21 08/17/21 05:09 05:12 11:46 WBC RBC Hgb Hct MCH RDW Plt Count Lymph % (Auto) [place] % (Auto) Lymph # (Auto) Seg Neutrophils % Seg Neuts % (Manual) Lymphocytes % (Manual) Monocytes % (Manual) Eosinophils % (Manual) Basophils % (Manual) Seg Neutrophils # Seg Neutrophils # Man Lymphocytes # (Manual) Monocytes # (Manual) APTT ABG pH 7.579 H POC ABG pCO2 27.0 L POC ABG pO2 139.0 H ABG pO2 ABG HCO3 ABG O2 Saturation ABG Base Excess ABG Hemoglobin 8.1 L ABG Oxyhemoglobin 98.3 H ABG Sodium 132.1 L ABG Potassium ABG Chloride ABG Glucose 160 H Oxyhemoglobin Carboxyhemoglobin Sodium Potassium Chloride Carbon Dioxide BUN Creatinine Glucose POC Glucose 155 H 170 H Calcium Phosphorus ALT Troponin T Total Protein Albumin Triglycerides HDL Cholesterol TSH Arterial Blood Glucose 160 H Crossmatch 08/17/21 08/18/21 08/18/21 17:41 00:21 04:00 WBC RBC 2.82 L Hgb 7.5 L Hct 22.7 L MCH 27 L RDW 18.9 H Plt Count Lymph % (Auto) [place] % (Auto) Lymph # (Auto) Seg Neutrophils % Seg Neuts % (Manual) Lymphocytes % (Manual) Monocytes % (Manual) Eosinophils % (Manual) Basophils % (Manual) Seg Neutrophils # Seg Neutrophils # Man Lymphocytes # (Manual) Monocytes # (Manual) APTT ABG pH POC ABG pCO2 POC ABG pO2 ABG pO2 ABG HCO3 ABG O2 Saturation ABG Base Excess ABG Hemoglobin ABG Oxyhemoglobin ABG Sodium ABG Potassium ABG Chloride ABG Glucose Oxyhemoglobin Carboxyhemoglobin Sodium Potassium Chloride Carbon Dioxide BUN Creatinine Glucose POC Glucose 150 H 152 H Calcium Phosphorus ALT Troponin T Total Protein Albumin Triglycerides HDL Cholesterol TSH Arterial Blood Glucose Crossmatch 08/18/21 08/18/21 08/18/21 04:00 05:38 11:58 WBC RBC Hgb Hct MCH RDW Plt Count Lymph % (Auto) [place] % (Auto) Lymph # (Auto) Seg Neutrophils % Seg Neuts % (Manual) Lymphocytes % (Manual) Monocytes % (Manual) Eosinophils % (Manual) Basophils % (Manual) Seg Neutrophils # Seg Neutrophils # Man Lymphocytes # (Manual) Monocytes # (Manual) APTT ABG pH POC ABG pCO2 POC ABG pO2 ABG pO2 ABG HCO3 ABG O2 Saturation ABG Base Excess ABG Hemoglobin ABG Oxyhemoglobin ABG Sodium ABG Potassium ABG Chloride ABG Glucose Oxyhemoglobin Carboxyhemoglobin Sodium 132 L Potassium Chloride 94.8 L Carbon Dioxide BUN 36 H Creatinine 4.0 H Glucose 168 H POC Glucose 158 H 139 H Calcium Phosphorus ALT Troponin T Total Protein Albumin Triglycerides HDL Cholesterol TSH Arterial Blood Glucose Crossmatch 08/18/21 08/18/21 08/19/21 16:17 23:11 04:00 WBC RBC 3.09 L Hgb 8.2 L Hct 25.0 L MCH 27 L RDW 19.0 H Plt Count 506 H Lymph % (Auto) [place] % (Auto) Lymph # (Auto) Seg Neutrophils % Seg Neuts % (Manual) Lymphocytes % (Manual) Monocytes % (Manual) Eosinophils % (Manual) Basophils % (Manual) Seg Neutrophils # Seg Neutrophils # Man Lymphocytes # (Manual) Monocytes # (Manual) APTT ABG pH POC ABG pCO2 POC ABG pO2 ABG pO2 ABG HCO3 ABG O2 Saturation ABG Base Excess ABG Hemoglobin ABG Oxyhemoglobin ABG Sodium ABG Potassium ABG Chloride ABG Glucose Oxyhemoglobin Carboxyhemoglobin Sodium Potassium Chloride Carbon Dioxide BUN Creatinine Glucose POC Glucose 126 H 170 H Calcium Phosphorus ALT Troponin T Total Protein Albumin Triglycerides HDL Cholesterol TSH Arterial Blood Glucose Crossmatch 08/19/21 08/19/21 08/19/21 04:00 05:17 12:34 WBC RBC Hgb Hct MCH RDW Plt Count Lymph % (Auto) [place] % (Auto) Lymph # (Auto) Seg Neutrophils % Seg Neuts % (Manual) Lymphocytes % (Manual) Monocytes % (Manual) Eosinophils % (Manual) Basophils % (Manual) Seg Neutrophils # Seg Neutrophils # Man Lymphocytes # (Manual) Monocytes # (Manual) APTT ABG pH POC ABG pCO2 POC ABG pO2 ABG pO2 ABG HCO3 ABG O2 Saturation ABG Base Excess ABG Hemoglobin ABG Oxyhemoglobin ABG Sodium ABG Potassium ABG Chloride ABG Glucose Oxyhemoglobin Carboxyhemoglobin Sodium 135 L Potassium Chloride 94.4 L Carbon Dioxide BUN 53 H Creatinine 4.5 H Glucose 125 H POC Glucose 113 H 130 H Calcium Phosphorus ALT Troponin T Total Protein Albumin Triglycerides HDL Cholesterol TSH Arterial Blood Glucose Crossmatch 08/19/21 08/20/21 08/20/21 23:30 04:25 05:11 WBC RBC Hgb Hct MCH RDW Plt Count Lymph % (Auto) [place] % (Auto) Lymph # (Auto) Seg Neutrophils % Seg Neuts % (Manual) Lymphocytes % (Manual) Monocytes % (Manual) Eosinophils % (Manual) Basophils % (Manual) Seg Neutrophils # Seg Neutrophils # Man Lymphocytes # (Manual) Monocytes # (Manual) APTT ABG pH 7.508 H POC ABG pCO2 POC ABG pO2 139.8 H ABG pO2 ABG HCO3 ABG O2 Saturation ABG Base Excess ABG Hemoglobin 8.2 L ABG Oxyhemoglobin 98.3 H ABG Sodium 129.8 L ABG Potassium ABG Chloride 96.0 L ABG Glucose 162 H Oxyhemoglobin Carboxyhemoglobin Sodium Potassium Chloride Carbon Dioxide BUN Creatinine Glucose POC Glucose 155 H 140 H Calcium Phosphorus ALT Troponin T Total Protein Albumin Triglycerides HDL Cholesterol TSH Arterial Blood Glucose 162 H Crossmatch 08/20/21 08/20/21 08/20/21 06:08 06:08 17:43 WBC RBC 2.90 L Hgb 7.9 L Hct 23.6 L MCH 27 L RDW 18.6 H Plt Count Lymph % (Auto) [place] % (Auto) Lymph # (Auto) Seg Neutrophils % Seg Neuts % (Manual) Lymphocytes % (Manual) Monocytes % (Manual) Eosinophils % (Manual) Basophils % (Manual) Seg Neutrophils # Seg Neutrophils # Man Lymphocytes # (Manual) Monocytes # (Manual) APTT ABG pH POC ABG pCO2 POC ABG pO2 ABG pO2 ABG HCO3 ABG O2 Saturation ABG Base Excess ABG Hemoglobin ABG Oxyhemoglobin ABG Sodium ABG Potassium ABG Chloride ABG Glucose Oxyhemoglobin Carboxyhemoglobin Sodium 133 L Potassium Chloride 93.9 L Carbon Dioxide BUN 31 H Creatinine 3.3 H Glucose 148 H POC Glucose 157 H Calcium Phosphorus ALT Troponin T Total Protein Albumin Triglycerides 433 H HDL Cholesterol TSH Arterial Blood Glucose Crossmatch 08/21/21 08/21/21 08/21/21 00:21 05:12 08:15 WBC RBC Hgb Hct MCH RDW Plt Count Lymph % (Auto) [place] % (Auto) Lymph # (Auto) Seg Neutrophils % Seg Neuts % (Manual) Lymphocytes % (Manual) Monocytes % (Manual) Eosinophils % (Manual) Basophils % (Manual) Seg Neutrophils # Seg Neutrophils # Man Lymphocytes # (Manual) Monocytes # (Manual) APTT ABG pH POC ABG pCO2 POC ABG pO2 ABG pO2 ABG HCO3 ABG O2 Saturation ABG Base Excess ABG Hemoglobin ABG Oxyhemoglobin ABG Sodium ABG Potassium ABG Chloride ABG Glucose Oxyhemoglobin Carboxyhemoglobin Sodium 134 L Potassium Chloride 94.9 L Carbon Dioxide BUN 42 H Creatinine 4.0 H Glucose 208 H POC Glucose 153 H 139 H Calcium Phosphorus ALT Troponin T Total Protein Albumin Triglycerides HDL Cholesterol TSH Arterial Blood Glucose Crossmatch 08/21/21 08/21/21 08/21/21 08:15 08:18 11:34 WBC RBC 2.90 L Hgb 7.7 L Hct 23.5 L MCH 27 L RDW 18.9 H Plt Count Lymph % (Auto) [place] % (Auto) Lymph # (Auto) Seg Neutrophils % Seg Neuts % (Manual) Lymphocytes % (Manual) Monocytes % (Manual) Eosinophils % (Manual) Basophils % (Manual) Seg Neutrophils # Seg Neutrophils # Man Lymphocytes # (Manual) Monocytes # (Manual) APTT ABG pH POC ABG pCO2 POC ABG pO2 ABG pO2 ABG HCO3 ABG O2 Saturation ABG Base Excess ABG Hemoglobin ABG Oxyhemoglobin ABG Sodium ABG Potassium ABG Chloride ABG Glucose Oxyhemoglobin Carboxyhemoglobin Sodium Potassium Chloride Carbon Dioxide BUN Creatinine Glucose POC Glucose 187 H Calcium Phosphorus ALT Troponin T Total Protein 6.0 L Albumin 2.6 L Triglycerides HDL Cholesterol TSH Arterial Blood Glucose Crossmatch 08/21/21 08/21/21 08/22/21 15:55 23:16 05:02 WBC RBC Hgb Hct MCH RDW Plt Count Lymph % (Auto) [place] % (Auto) Lymph # (Auto) Seg Neutrophils % Seg Neuts % (Manual) Lymphocytes % (Manual) Monocytes % (Manual) Eosinophils % (Manual) Basophils % (Manual) Seg Neutrophils # Seg Neutrophils # Man Lymphocytes # (Manual) Monocytes # (Manual) APTT ABG pH POC ABG pCO2 POC ABG pO2 ABG pO2 ABG HCO3 ABG O2 Saturation ABG Base Excess ABG Hemoglobin ABG Oxyhemoglobin ABG Sodium ABG Potassium ABG Chloride ABG Glucose Oxyhemoglobin Carboxyhemoglobin Sodium Potassium Chloride Carbon Dioxide BUN Creatinine Glucose POC Glucose 173 H 178 H 145 H Calcium Phosphorus ALT Troponin T Total Protein Albumin Triglycerides HDL Cholesterol TSH Arterial Blood Glucose Crossmatch 08/22/21 11:44 WBC RBC Hgb Hct MCH RDW Plt Count Lymph % (Auto) [place] % (Auto) Lymph # (Auto) Seg Neutrophils % Seg Neuts % (Manual) Lymphocytes % (Manual) Monocytes % (Manual) Eosinophils % (Manual) Basophils % (Manual) Seg Neutrophils # Seg Neutrophils # Man Lymphocytes # (Manual) Monocytes # (Manual) APTT ABG pH POC ABG pCO2 POC ABG pO2 ABG pO2 ABG HCO3 ABG O2 Saturation ABG Base Excess ABG Hemoglobin ABG Oxyhemoglobin ABG Sodium ABG Potassium ABG Chloride ABG Glucose Oxyhemoglobin Carboxyhemoglobin Sodium Potassium Chloride Carbon Dioxide BUN Creatinine Glucose POC Glucose 211 H Calcium Phosphorus ALT Troponin T Total Protein Albumin Triglycerides HDL Cholesterol TSH Arterial Blood Glucose Crossmatch Allied health notes reviewed: nursing
[2021-08-22] MEDS ORDERED: EPINEPHrine RACEMIC 2.25% 0.5ML NEBU IH ONE (15:39)
[2021-08-22] MEDS ORDERED: EPINEPHrine RACEMIC 2.25% 0.5ML NEBU IH SCH (16:00)
--- NOTE | 2021-08-22 16:36 | Event Note ---
Date: 08/22/2108/22: Patient was found self extubated in her room. She self extubated 1530- 1545. Dr. Ayala at bedside and Dr. Felix updated via phone. Ordered for racemic epinephrine which was administered by RT. As needed and nightly BiPAP. We will hold off on obtaining CT neck with contrast. Patient's daughter was updated by me today. I gave her a run down of everything that has been going on including antihypertensive regimen titration, reintubation x2, self extubation today, HD Mwf, no cuff leak noted despite getting FFP's. Informed her that we are still awaiting [place] bed. And if patient is able to remain extubated then that we will open up the possibility of a for bed at [place] which may aid transfer. CCT 30 min
[2021-08-22] MEDS: hydrALAZINE 20 MG/1 ML INJ IV PRN (22:07)
[2021-08-23] MEDS: INSULIN REGULAR, HUMAN 100 UNITS/1 ML SUB-Q SCH ×4 (00:13→17:58)
[2021-08-23] MEDS: methylPREDNISolone Sod Succinate 40 MG/1 ML INJ IV SCH ×5 (00:14→23:50)
[2021-08-23 05:10] LABS: Hemoglobin 12.5 gm/dl (10.1-14.3); Mean Corpuscular HGB Conc 31 % (30-34); Mean Corpuscular Volume 82 fl (79-97); Platelet Count 270 K/mm3 (140-440); Red Blood Count 4.85 M/mm3 (3.65-5.03); Red Cell Distribution Width 19.6 % (13.2-15.2)
[2021-08-23] MEDS: hydrALAZINE 25 MG TAB PO SCH ×3 (05:55→21:29)
[2021-08-23] MEDS: ISOSORBIDE DINITRATE 20 MG TAB PO SCH ×3 (05:55→21:29)
[2021-08-23] MEDS: AMIODARONE 200 MG TAB PO SCH (09:03)
[2021-08-23] MEDS: ASPIRIN 81 MG TAB CHEW PO SCH (09:03)
[2021-08-23] MEDS: LOSARTAN 25 MG TAB PO SCH (09:03)
[2021-08-23] MEDS: QUEtiapine 25 MG TAB PO SCH ×3 (09:04→21:30)
[2021-08-23] MEDS: SENNOSIDES ORAL LIQD 8.8 MG/5 ML ORAL LIQD FEEDTUBE SCH ×2 (09:04→21:30)
[2021-08-23] MEDS: FAMOTIDINE 10 MG TAB PO SCH ×2 (09:04→21:30)
[2021-08-23] MEDS: METOPROLOL TARTRATE 50 MG TAB PO SCH ×2 (09:04→21:30)
[2021-08-23] MEDS: CLOPIDOGREL 75 MG TAB PO SCH (09:04)
[2021-08-23] MEDS: HEPARIN 5,000 UNIT/1 ML VIAL SUB-Q SCH ×2 (09:45→21:29)
--- NOTE | 2021-08-23 11:06 | Electrocardiograph Report ---
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
--- NOTE | 2021-08-23 11:17 | Electrocardiograph Report ---
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 Ectopic atrial rhythm no longer present Electronically Signed On 08-23-2021 11:17:13 EST by Frankie Padilla
--- NOTE | 2021-08-23 12:07 | Progress Note ---
Assessment and Plan Patient is a 60-year-old female with recurrent V. tach, end-stage renal disease, s/p ICD, and recurrent severe hypokalemia VT Storm Recurrent AICD Discharges CAD s/p PCI (07/17/2021) Accelerated HTN ESRD on HD Hyponatremia Severe Hypokalemia (POA, resolved) Anemia Thrombocytopenia Type 2 NV HTN H/o CVA Plan: Currently waiting bed availability at [place] for transfer for VT ablation Resume when able to tolerate p.o. meds: aspirin, Plavix, Lipitor, losartan 100 mg p.o. daily and metoprolol 100 mg p.o. twice daily, and amio 400 mg p.o. twice daily, Due to patient removing NG tube, self extubating, and failing swallow test will initiate amio drip Patient seen in conjunction with Dr. Padilla who agrees with this plan of care - Patient Problems (1) AICD discharge Current Visit: Yes Status: Acute (2) Anemia in end-stage renal disease Current Visit: Yes Status: Acute (3) Elevated troponin Current Visit: Yes Status: Acute (4) Hypokalemia Current Visit: Yes Status: Acute (5) Sustained ventricular tachycardia Current Visit: Yes Status: Acute (6) Diabetes Current Visit: No Status: Acute (7) Respiratory failure Current Visit: No Status: Acute Qualifiers: Chronicity: acute Respiratory failure complication: hypoxia Qualified Code(s): J96.01 - Acute respiratory failure with hypoxia (8) Hypertension Current Visit: No Status: Chronic Qualifiers: Hypertension type: primary hypertension Qualified Code(s): I10 - Essential (primary) hypertension Subjective Date of service: 08/23/21 Principal diagnosis: Recurrent VT Interval history: Patient has self extubated and pulled out NG tube yesterday Patient A paced 70 no events on monitor Objective Vital Signs Temp Pulse Pulse Pulse Resp Resp BP 08/23/21 12:00 69 126/50 08/23/21 11:45 70 132/51 08/23/21 11:30 70 134/56 08/23/21 11:17 70 21 08/23/21 11:15 70 126/53 08/23/21 11:00 70 7 L 127/55 08/23/21 10:45 70 9 L 123/57 08/23/21 10:30 70 16 130/52 08/23/21 10:15 70 11 L 133/58 08/23/21 10:00 70 17 148/54 08/23/21 09:49 70 148/54 08/23/21 09:46 70 19 146/49 08/23/21 09:34 98.2 F 70 18 152/51 08/23/21 09:30 70 20 152/54 08/23/21 09:27 08/23/21 09:16 70 22 152/54 08/23/21 09:00 70 19 152/54 08/23/21 08:46 99.2 F 70 18 157/58 08/23/21 08:30 70 20 157/58 08/23/21 08:16 70 19 157/58 08/23/21 08:00 70 18 157/58 08/23/21 07:54 70 19 08/23/21 07:53 70 08/23/21 07:46 70 19 157/58 08/23/21 07:30 70 18 157/58 08/23/21 07:16 70 19 157/58 08/23/21 07:00 70 18 157/58 08/23/21 06:46 70 20 163/51 08/23/21 06:30 70 17 163/51 08/23/21 06:16 70 12 163/51 08/23/21 06:00 70 17 155/57 08/23/21 05:55 70 153/57 08/23/21 05:46 70 10 L 155/57 08/23/21 05:39 70 15 153/57 08/23/21 05:30 70 11 L 155/57 08/23/21 05:16 70 10 L 155/57 08/23/21 05:00 70 15 153/57 08/23/21 04:46 70 13 153/57 08/23/21 04:30 70 16 153/57 08/23/21 04:16 70 14 153/57 08/23/21 04:00 98.8 F 70 70 18 139/56 08/23/21 03:46 70 12 139/56 08/23/21 03:30 70 9 L 139/56 08/23/21 03:16 70 10 L 139/56 08/23/21 03:00 70 18 139/56 08/23/21 02:46 70 19 159/60 08/23/21 02:30 70 19 159/60 08/23/21 02:16 70 9 L 156/65 08/23/21 02:00 70 17 156/65 08/23/21 01:46 70 13 156/65 08/23/21 01:30 70 13 156/65 08/23/21 01:24 70 17 156/65 08/23/21 01:16 70 15 156/65 08/23/21 01:00 156/65 08/23/21 00:46 70 19 165/66 08/23/21 00:30 70 10 L 165/66 08/23/21 00:16 70 19 165/66 08/23/21 00:00 98.9 F 70 70 14 165/66 08/22/21 23:46 70 14 138/48 08/22/21 23:34 70 19 138/48 08/22/21 23:30 70 12 138/48 08/22/21 23:16 70 15 138/48 08/22/21 23:00 70 17 139/54 08/22/21 22:46 70 16 187/70 08/22/21 22:30 70 15 187/70 08/22/21 22:16 70 19 187/70 08/22/21 22:07 70 187/70 08/22/21 22:00 70 13 187/70 08/22/21 21:46 70 14 176/61 08/22/21 21:30 70 19 176/61 08/22/21 21:16 70 19 176/61 08/22/21 21:00 70 19 181/74 08/22/21 20:46 70 14 181/74 08/22/21 20:30 70 15 181/74 08/22/21 20:16 70 18 181/74 08/22/21 20:00 70 70 14 181/74 08/22/21 19:53 99 F 08/22/21 19:46 70 12 154/59 08/22/21 19:30 70 20 154/59 08/22/21 19:16 70 25 H 154/59 08/22/21 19:00 70 18 154/59 08/22/21 18:46 70 19 164/66 08/22/21 18:30 70 17 169/109 08/22/21 18:16 70 18 169/109 08/22/21 18:00 70 17 169/109 08/22/21 17:46 70 12 164/63 08/22/21 17:30 70 18 164/63 08/22/21 17:16 70 13 164/63 08/22/21 17:00 70 20 157/62 08/22/21 16:46 70 14 157/62 08/22/21 16:31 97.9 F 08/22/21 16:30 70 15 157/62 08/22/21 16:16 70 15 157/62 08/22/21 16:00 70 70 70 15 20 128/59 08/22/21 15:50 08/22/21 15:46 70 17 128/59 08/22/21 15:45 72 08/22/21 15:30 70 16 128/59 08/22/21 15:16 70 14 128/59 08/22/21 15:00 70 11 L 163/63 08/22/21 14:46 70 12 163/63 08/22/21 14:30 70 13 163/63 08/22/21 14:16 70 12 163/63 08/22/21 14:00 70 13 163/63 08/22/21 13:57 70 159/59 08/22/21 13:46 70 12 159/59 08/22/21 13:30 70 13 159/59 08/22/21 13:16 70 12 159/59 08/22/21 13:00 70 13 159/59 08/22/21 12:46 70 12 151/58 08/22/21 12:30 70 12 151/58 08/22/21 12:28 70 151/58 08/22/21 12:16 70 13 151/58 Pulse Ox Pulse Ox Pulse Ox Pulse Ox Pulse Ox 08/23/21 12:00 08/23/21 11:45 08/23/21 11:30 08/23/21 11:17 100 08/23/21 11:15 08/23/21 11:00 100 08/23/21 10:45 100 08/23/21 10:30 100 08/23/21 10:15 08/23/21 10:00 100 08/23/21 09:49 08/23/21 09:46 100 08/23/21 09:34 98 98 98 98 08/23/21 09:30 100 08/23/21 09:27 100 08/23/21 09:16 100 08/23/21 09:00 100 08/23/21 08:46 100 08/23/21 08:30 100 08/23/21 08:16 100 08/23/21 08:00 100 08/23/21 07:54 100 08/23/21 07:53 08/23/21 07:46 100 08/23/21 07:30 100 08/23/21 07:16 100 08/23/21 07:00 100 08/23/21 06:46 100 08/23/21 06:30 100 08/23/21 06:16 100 08/23/21 06:00 100 08/23/21 05:55 08/23/21 05:46 100 08/23/21 05:39 100 08/23/21 05:30 100 08/23/21 05:16 100 08/23/21 05:00 100 08/23/21 04:46 100 08/23/21 04:30 100 08/23/21 04:16 100 08/23/21 04:00 99 08/23/21 03:46 99 08/23/21 03:30 99 08/23/21 03:16 100 08/23/21 03:00 99 08/23/21 02:46 99 08/23/21 02:30 99 08/23/21 02:16 100 08/23/21 02:00 99 08/23/21 01:46 99 08/23/21 01:30 100 08/23/21 01:24 100 08/23/21 01:16 96 08/23/21 01:00 97 08/23/21 00:46 100 08/23/21 00:30 100 08/23/21 00:16 100 08/23/21 00:00 99 08/22/21 23:46 100 08/22/21 23:34 100 08/22/21 23:30 99 08/22/21 23:16 100 08/22/21 23:00 100 08/22/21 22:46 08/22/21 22:30 100 08/22/21 22:16 100 08/22/21 22:07 08/22/21 22:00 100 08/22/21 21:46 99 08/22/21 21:30 100 08/22/21 21:16 100 08/22/21 21:00 100 08/22/21 20:46 100 08/22/21 20:30 100 08/22/21 20:16 99 08/22/21 20:00 100 08/22/21 19:53 08/22/21 19:46 100 08/22/21 19:30 100 08/22/21 19:16 100 08/22/21 19:00 100 08/22/21 18:46 100 08/22/21 18:30 100 08/22/21 18:16 100 08/22/21 18:00 100 08/22/21 17:46 100 08/22/21 17:30 100 08/22/21 17:16 08/22/21 17:00 100 08/22/21 16:46 100 08/22/21 16:31 08/22/21 16:30 99 08/22/21 16:16 100 08/22/21 16:00 100 08/22/21 15:50 100 08/22/21 15:46 100 08/22/21 15:45 100 08/22/21 15:30 99 08/22/21 15:16 100 08/22/21 15:00 100 08/22/21 14:46 99 08/22/21 14:30 100 08/22/21 14:16 100 08/22/21 14:00 100 08/22/21 13:57 08/22/21 13:46 100 08/22/21 13:30 100 08/22/21 13:16 100 08/22/21 13:00 100 08/22/21 12:46 99 08/22/21 12:30 100 08/22/21 12:28 99 08/22/21 12:16 100 - Physical Examination General: Other (Sedated) HEENT: Positive: Normocephaly, Mucus Membranes Dry Neck: Positive: neck supple, trachea midline. Negative: JVD/HJR Cardiac: Positive: Reg Rate and Rhythm Lungs: Positive: Decreased Breath Sounds Neuro: Positive: Other (Sedated) Abdomen: Positive: Soft Skin: Negative: Rash Musculoskeletal: No Fluid Collection Extremities: Present: lower extr. pulses. Absent: edema - Labs and Meds CBC 08/23/21 Range/Units 04:35 WBC 13.5 H (4.5-11.0) K/mm3 RBC 4.85 (3.65-5.03) M/mm3 Hgb 12.5 D (10.1-14.3) gm/dl Hct 40.0 D (30.3-42.9) % Plt Count 270 (140-440) K/mm3 Comprehensive Metabolic Panel 08/23/21 Range/Units 04:35 Sodium 132 L (137-145) mmol/L Potassium 4.9 (3.6-5.0) mmol/L Chloride 94.6 L (98-107) mmol/L Carbon Dioxide 21 L (22-30) mmol/L BUN 60 H (7-17) mg/dL Creatinine 4.3 H (0.6-1.2) mg/dL Glucose 174 H (65-100) mg/dL Calcium 9.0 (8.4-10.2) mg/dL - Imaging and Cardiology EKG: report reviewed, image reviewed Echo: report reviewed Cardiac cath: report reviewed - Telemetry EKG Rhythm: Paced - EKG Sinus rhythms and dysrhythmias: sinus rhythm Repolarization changes or abnormalities: Q-T interval prolongation Myocardial infarction: anterior NV (old age or i Pacemaker: atrial pacing w/capture - Allied health notes Allied health notes reviewed: nursing
--- NOTE | 2021-08-23 12:27 | Progress Note ---
Assessment and Plan - Patient Problems (1) End stage renal disease on dialysis Current Visit: Yes Status: Chronic Plan to address problem: Cont hemodialysis on a Thursday, Thursday and Thursday schedule. (2) Hypokalemia Current Visit: Yes Status: Acute Plan to address problem: Potassium is back to normal. Follow-up (3) Anemia in end-stage renal disease Current Visit: Yes Status: Acute Plan to address problem: Give erythropoietin on dialysis and follow-up hemoglobin level (4) VT (ventricular tachycardia) Current Visit: Yes Status: Acute Plan to address problem: Continue management by telephone sales agent. Awaiting transfer to [place] for VT ablation Subjective Date of service: 08/23/21 Principal diagnosis: Recurrent VT Interval history: Pt seen and examined in the ICU, intubated, pt s/p self extubation this AM Objective - Vital Signs Vital signs: Vital Signs - 12hr 08/23/21 08/23/21 08/23/21 00:30 00:46 01:00 Temperature Pulse Rate 70 70 Pulse Rate [ From Monitor] Respiratory 10 L 19 Rate Blood Pressure 165/66 165/66 156/65 O2 Sat by Pulse 100 100 97 Oximetry O2 Sat by Pulse Oximetry [ Anterior Bilateral] O2 Sat by Pulse Oximetry [ Bases] O2 Sat by Pulse Oximetry [ Bilateral Bases ] O2 Sat by Pulse Oximetry [ Bilateral Throughout] 08/23/21 08/23/21 08/23/21 01:16 01:24 01:30 Temperature Pulse Rate 70 70 70 Pulse Rate [ From Monitor] Respiratory 15 17 13 Rate Blood Pressure 156/65 156/65 156/65 O2 Sat by Pulse 96 100 100 Oximetry O2 Sat by Pulse Oximetry [ Anterior Bilateral] O2 Sat by Pulse Oximetry [ Bases] O2 Sat by Pulse Oximetry [ Bilateral Bases ] O2 Sat by Pulse Oximetry [ Bilateral Throughout] 08/23/21 08/23/21 08/23/21 01:46 02:00 02:16 Temperature Pulse Rate 70 70 70 Pulse Rate [ From Monitor] Respiratory 13 17 9 L Rate Blood Pressure 156/65 156/65 156/65 O2 Sat by Pulse 99 99 100 Oximetry O2 Sat by Pulse Oximetry [ Anterior Bilateral] O2 Sat by Pulse Oximetry [ Bases] O2 Sat by Pulse Oximetry [ Bilateral Bases ] O2 Sat by Pulse Oximetry [ Bilateral Throughout] 08/23/21 08/23/21 08/23/21 02:30 02:46 03:00 Temperature Pulse Rate 70 70 70 Pulse Rate [ From Monitor] Respiratory 19 19 18 Rate Blood Pressure 159/60 159/60 139/56 O2 Sat by Pulse 99 99 99 Oximetry O2 Sat by Pulse Oximetry [ Anterior Bilateral] O2 Sat by Pulse Oximetry [ Bases] O2 Sat by Pulse Oximetry [ Bilateral Bases ] O2 Sat by Pulse Oximetry [ Bilateral Throughout] 08/23/21 08/23/21 08/23/21 03:16 03:30 03:46 Temperature Pulse Rate 70 70 70 Pulse Rate [ From Monitor] Respiratory 10 L 9 L 12 Rate Blood Pressure 139/56 139/56 139/56 O2 Sat by Pulse 100 99 99 Oximetry O2 Sat by Pulse Oximetry [ Anterior Bilateral] O2 Sat by Pulse Oximetry [ Bases] O2 Sat by Pulse Oximetry [ Bilateral Bases ] O2 Sat by Pulse Oximetry [ Bilateral Throughout] 08/23/21 08/23/21 08/23/21 04:00 04:16 04:30 Temperature 98.8 F Pulse Rate 70 70 70 Pulse Rate [ 70 From Monitor] Respiratory 18 14 16 Rate Blood Pressure 139/56 153/57 153/57 O2 Sat by Pulse 99 100 100 Oximetry O2 Sat by Pulse Oximetry [ Anterior Bilateral] O2 Sat by Pulse Oximetry [ Bases] O2 Sat by Pulse Oximetry [ Bilateral Bases ] O2 Sat by Pulse Oximetry [ Bilateral Throughout] 08/23/21 08/23/21 08/23/21 04:46 05:00 05:16 Temperature Pulse Rate 70 70 70 Pulse Rate [ From Monitor] Respiratory 13 15 10 L Rate Blood Pressure 153/57 153/57 155/57 O2 Sat by Pulse 100 100 100 Oximetry O2 Sat by Pulse Oximetry [ Anterior Bilateral] O2 Sat by Pulse Oximetry [ Bases] O2 Sat by Pulse Oximetry [ Bilateral Bases ] O2 Sat by Pulse Oximetry [ Bilateral Throughout] 08/23/21 08/23/21 08/23/21 05:30 05:39 05:46 Temperature Pulse Rate 70 70 70 Pulse Rate [ From Monitor] Respiratory 11 L 15 10 L Rate Blood Pressure 155/57 153/57 155/57 O2 Sat by Pulse 100 100 100 Oximetry O2 Sat by Pulse Oximetry [ Anterior Bilateral] O2 Sat by Pulse Oximetry [ Bases] O2 Sat by Pulse Oximetry [ Bilateral Bases ] O2 Sat by Pulse Oximetry [ Bilateral Throughout] 01/08/23/21 08/23/21 05:55 06:00 06:16 Temperature Pulse Rate 70 70 70 Pulse Rate [ From Monitor] Respiratory 17 12 Rate Blood Pressure 153/57 155/57 163/51 O2 Sat by Pulse 100 100 Oximetry O2 Sat by Pulse Oximetry [ Anterior Bilateral] O2 Sat by Pulse Oximetry [ Bases] O2 Sat by Pulse Oximetry [ Bilateral Bases ] O2 Sat by Pulse Oximetry [ Bilateral Throughout] 08/23/21 08/23/21 08/23/21 06:30 06:46 07:00 Temperature Pulse Rate 70 70 70 Pulse Rate [ From Monitor] Respiratory 17 20 18 Rate Blood Pressure 163/51 163/51 157/58 O2 Sat by Pulse 100 100 100 Oximetry O2 Sat by Pulse Oximetry [ Anterior Bilateral] O2 Sat by Pulse Oximetry [ Bases] O2 Sat by Pulse Oximetry [ Bilateral Bases ] O2 Sat by Pulse Oximetry [ Bilateral Throughout] 08/23/21 08/23/21 08/23/21 07:16 07:30 07:46 Temperature Pulse Rate 70 70 70 Pulse Rate [ From Monitor] Respiratory 19 18 19 Rate Blood Pressure 157/58 157/58 157/58 O2 Sat by Pulse 100 100 100 Oximetry O2 Sat by Pulse Oximetry [ Anterior Bilateral] O2 Sat by Pulse Oximetry [ Bases] O2 Sat by Pulse Oximetry [ Bilateral Bases ] O2 Sat by Pulse Oximetry [ Bilateral Throughout] 08/23/21 08/23/21 08/23/21 07:53 07:54 08:00 Temperature Pulse Rate 70 70 Pulse Rate [ 70 From Monitor] Respiratory 19 18 Rate Blood Pressure 157/58 O2 Sat by Pulse 100 100 Oximetry O2 Sat by Pulse Oximetry [ Anterior Bilateral] O2 Sat by Pulse Oximetry [ Bases] O2 Sat by Pulse Oximetry [ Bilateral Bases ] O2 Sat by Pulse Oximetry [ Bilateral Throughout] 08/23/21 08/23/21 08/23/21 08:16 08:30 08:46 Temperature 99.2 F Pulse Rate 70 70 70 Pulse Rate [ From Monitor] Respiratory 19 20 18 Rate Blood Pressure 157/58 157/58 157/58 O2 Sat by Pulse 100 100 100 Oximetry O2 Sat by Pulse Oximetry [ Anterior Bilateral] O2 Sat by Pulse Oximetry [ Bases] O2 Sat by Pulse Oximetry [ Bilateral Bases ] O2 Sat by Pulse Oximetry [ Bilateral Throughout] 08/23/21 08/23/21 08/23/21 09:00 09:16 09:27 Temperature Pulse Rate 70 70 Pulse Rate [ From Monitor] Respiratory 19 22 Rate Blood Pressure 152/54 152/54 O2 Sat by Pulse 100 100 100 Oximetry O2 Sat by Pulse Oximetry [ Anterior Bilateral] O2 Sat by Pulse Oximetry [ Bases] O2 Sat by Pulse Oximetry [ Bilateral Bases ] O2 Sat by Pulse Oximetry [ Bilateral Throughout] 08/23/21 08/23/21 08/23/21 09:30 09:34 09:46 Temperature 98.2 F Pulse Rate 70 70 70 Pulse Rate [ From Monitor] Respiratory 20 18 19 Rate Blood Pressure 152/54 152/51 146/49 O2 Sat by Pulse 100 100 Oximetry O2 Sat by Pulse 98 Oximetry [ Anterior Bilateral] O2 Sat by Pulse 98 Oximetry [ Bases] O2 Sat by Pulse 98 Oximetry [ Bilateral Bases ] O2 Sat by Pulse 98 Oximetry [ Bilateral Throughout] 08/23/21 08/23/21 08/23/21 09:49 10:00 10:15 Temperature Pulse Rate 70 70 70 Pulse Rate [ From Monitor] Respiratory 17 11 L Rate Blood Pressure 148/54 148/54 133/58 O2 Sat by Pulse 100 Oximetry O2 Sat by Pulse Oximetry [ Anterior Bilateral] O2 Sat by Pulse Oximetry [ Bases] O2 Sat by Pulse Oximetry [ Bilateral Bases ] O2 Sat by Pulse Oximetry [ Bilateral Throughout] 08/23/21 08/23/21 08/23/21 10:30 10:45 11:00 Temperature Pulse Rate 70 70 70 Pulse Rate [ From Monitor] Respiratory 16 9 L 7 L Rate Blood Pressure 130/52 123/57 127/55 O2 Sat by Pulse 100 100 100 Oximetry O2 Sat by Pulse Oximetry [ Anterior Bilateral] O2 Sat by Pulse Oximetry [ Bases] O2 Sat by Pulse Oximetry [ Bilateral Bases ] O2 Sat by Pulse Oximetry [ Bilateral Throughout] 08/23/21 08/23/21 08/23/21 11:15 11:17 11:30 Temperature Pulse Rate 70 70 Pulse Rate [ 70 From Monitor] Respiratory 21 Rate Blood Pressure 126/53 134/56 O2 Sat by Pulse 100 Oximetry O2 Sat by Pulse Oximetry [ Anterior Bilateral] O2 Sat by Pulse Oximetry [ Bases] O2 Sat by Pulse Oximetry [ Bilateral Bases ] O2 Sat by Pulse Oximetry [ Bilateral Throughout] 08/23/21 08/23/21 08/23/21 11:45 12:00 12:15 Temperature Pulse Rate 70 69 70 Pulse Rate [ From Monitor] Respiratory Rate Blood Pressure 132/51 126/50 135/52 O2 Sat by Pulse Oximetry O2 Sat by Pulse Oximetry [ Anterior Bilateral] O2 Sat by Pulse Oximetry [ Bases] O2 Sat by Pulse Oximetry [ Bilateral Bases ] O2 Sat by Pulse Oximetry [ Bilateral Throughout] - General Appearance General appearance: well-developed, well-nourished, appears stated age EENT: ATNC, PERRL, mucous membranes moist Neck: no JVD Respiratory: Present: Clear to Ascultation Cardiology: regular, S1S2 Gastrointestinal: normoactive bowel sounds Integumentary: no rash Neurologic: no focal deficit, alert and oriented x3, CN 3-12 intact - Lab 08/23/21 04:35 08/23/21 04:35 Most recent lab results ABG pH 7.508 (7.320-7.450) H 08/20/21 04:25 ABG pCO2 41.2 mm Hg 08/09/21 04:30 ABG pO2 91.5 mm Hg (80.0-90.0) H 08/09/21 04:30 ABG HCO3 26.6 mmol/L (20.0-26.0) H 08/09/21 04:30 ABG O2 Saturation 99.1 (0-100) 08/20/21 04:25 Calcium 9.0 mg/dL (8.4-10.2) 08/23/21 04:35 Phosphorus 4.50 mg/dL (2.5-4.5) 08/23/21 04:35 Magnesium 2.00 mg/dL (1.7-2.3) 08/23/21 04:35 Medications & Allergies - Medications Allergies/Adverse Reactions: Allergies No Known Allergies Allergy (Unverified 07/10/21 20:57) Home Medications: Home Medications Medication Instructions Recorded Confirmed Last Taken Type Icosapent Ethyl [Vascepa] 2 gm PO BID 07/12/21 07/12/21 Unknown History Losartan [Cozaar] 25 mg PO BID 07/12/21 07/12/21 Unknown History ALBUTEROL NEB's [Proventil 0.083% 2.5 mg IH Q4HRT PRN nebu 07/15/21 Unknown Rx NEBS] Acetaminophen [Acetaminophen 650 mg [place] Q4H PRN supp.rect 07/15/21 Unknown Rx SUPPOS] Acetaminophen [Acetaminophen TAB] 650 mg PO Q4H PRN tablet 07/15/21 Unknown Rx Amiodarone [Cordarone 200 MG TAB] 200 mg PO BID tablet 07/15/21 Unknown Rx AtorvaSTATin [Lipitor] 80 mg PO QHS tablet 07/15/21 Unknown Rx Clopidogrel [Plavix] 75 mg PO QDAY tablet 07/15/21 Unknown Rx Dextrose 50% in Water [D50W (25GM) 50 ml IV Q30MIN PRN syringe 07/15/21 Unknown Rx Syringe] Free Water 60 ml PO Q4HR oral.liqd 07/15/21 Unknown Rx Isosorbide Dinitrate [Isordil] 5 mg PO Q8HR tablet 07/15/21 Unknown Rx Lipase/Protease/Amylase [Pancreaze 1 each FEEDTUBE PRN PRN capsule 07/15/[address] 10,500 Unit] Lispro Insulin [HumaLOG] 0 unit SUB-Q Q6HR units 07/15/21 Unknown Rx Metoprolol [Lopressor TAB] 25 mg PO TID tablet 07/15/21 Unknown Rx Simple Syrup 30 ml FEEDTUBE PRN PRN oral.liqd 07/15/21 Unknown Rx hydrALAZINE [Apresoline INJ] 10 mg IV Q6H PRN vial 07/15/21 Unknown Rx Active Medications: Generic Name Dose Route Start Last Admin Trade Name Freq PRN Reason Stop Dose Admin Acetaminophen 650 mg 08/06/21 16:30 08/06/21 16:30 Acetaminophen 650 Mg Rect Supp NH 650 mg Q6H PRN Administration Pain, Mild (1-3) Albuterol 2.5 mg 08/05/21 20:59 Albuterol 2.5 Mg/3 Ml Nebu IH Q4HRT PRN Shortness Of Breath Aspirin 81 mg 08/07/21 10:00 08/23/21 09:03 Aspirin 81 Mg Tab Chew PO Not Given QDAY JODI Atorvastatin Calcium 80 mg 08/05/21 22:00 08/22/21 22:08 Atorvastatin 40 Mg Tab PO Not Given QHS JODI Clopidogrel Bisulfate 75 mg 08/10/21 10:00 08/23/21 09:04 Clopidogrel 75 Mg Tab PO Not Given QDAY JODI Dextrose 50 ml 08/17/21 18:00 Dextrose 50% In Water (25gm) 50 Ml Syringe IV Q30MIN PRN Hypoglycemia Protocol Famotidine 10 mg 08/09/21 22:00 08/23/21 09:04 Famotidine 10 Mg Tab PO Not Given BID [facility] Fentanyl 50 mcg 08/16/21 11:48 08/22/21 05:29 Fentanyl 100 Mcg/2 Ml Inj IV 50 mcg Q2H PRN Administration Pain, Moderate (4-6) Haloperidol Lactate 2.5 mg 08/23/21 13:00 Haloperidol Lactate 5 Mg/1 Ml Inj IV Q6HR [facility] Heparin Sodium (Porcine) 5,000 unit 08/11/21 10:00 08/23/21 09:45 Heparin 5,000 Unit/1 Ml Vial SUB-Q 5,000 unit Q12HR JODI Administration Hydralazine HCl 10 mg 08/06/21 04:21 08/22/21 22:07 Hydralazine 20 Mg/1 Ml Inj IV 10 mg Q6HR PRN Administration Hypertension Hydralazine HCl 50 mg 08/21/21 14:00 08/23/21 05:55 Hydralazine 25 Mg Tab PO Not Given Q8HR [facility] Hydrophilic Ointment 1 applic 08/05/21 17:25 Lip Therapy Vaseline TP Q2HR PRN Dry Lips Sodium Chloride 100 mls @ 999 mls/hr 08/14/21 17:06 Nacl 0.9% IV GLENDY PRN Hypotension Dexmedetomidine HCl 400 mcg/ 104 mls @ 3.341 mls/hr 08/20/21 10:00 08/23/21 12:05 Sodium Chloride IV 1.2 mcg/kg/hr TITRATE JODI 20.046 mls/hr Titration Protocol 0.2 MCG/KG/HR Amiodarone HCl 360 mg/ 200 mls @ 16.667 mls/hr 08/23/21 12:00 Dextrose IV DIRECT [facility] Protocol 0.5 MG/MIN Nicardipine HCl 50 mg/ Sodium 250 mls @ 25 mls/hr 08/23/21 13:00 Chloride IV TITR [facility] Protocol 5 MG/HR Insulin Human Regular 0 units 08/17/21 18:00 08/23/21 05:54 Insulin Regular, Human 100 Units/1 Ml SUB-Q Not Given Q6H [facility] Protocol Isosorbide Dinitrate 20 mg 08/11/21 14:00 08/23/21 05:55 Isosorbide Dinitrate 20 Mg Tab PO Not Given Q8HR JODI Lorazepam 1 mg 08/23/21 12:14 Lorazepam 2 Mg/Ml Vial IV Q4H PRN Agitation Losartan Potassium 100 mg 08/12/21 10:00 08/23/21 09:03 Losartan 25 Mg Tab PO Not Given DAILY JODI Methylprednisolone Sodium Succinate 40 mg 08/16/21 13:00 08/23/21 05:54 Methylprednisolone Sod Succinate 40 Mg/1 Ml Inj IV 40 mg Q6HR JODI Administration Metoclopramide HCl 5 mg 08/05/21 21:03 Metoclopramide 10 Mg/2 Ml Inj IV Q6H PRN Nausea And Vomiting Metoprolol Tartrate 100 mg 08/12/21 12:00 08/23/21 09:04 Metoprolol Tartrate 50 Mg Tab PO Not Given BID [facility] Multi-Ingred Cream/Lotion/Oil/Oint 1 applic 08/05/21 17:25 Mineral Oil/Petrolatum, White Ophth Oint 3.5 Gm OU Q4HR PRN Dry Eye(s) Ondansetron HCl 4 mg 08/05/21 21:03 Ondansetron 4 Mg/2 Ml Inj IV Q8H PRN Nausea And Vomiting Oxycodone/Acetaminophen 1 tab 08/05/21 21:03 08/22/21 01:52 Oxycodone /Acetaminophen 5-325mg Tab PO 1 tab Q6H PRN Administration Pain, Moderate (4-6) Quetiapine Fumarate 50 mg 08/23/21 10:00 08/23/21 12:05 Quetiapine 25 Mg Tab PO Not Given BID [facility] Senna 8.8 mg 08/07/21 13:00 08/23/21 09:04 Sennosides Oral Liqd 8.8 Mg/5 Ml Oral Liqd FEEDTUBE Not Given BID JODI Sodium Chloride 10 ml 08/05/21 22:00 08/23/21 09:01 Sodium Chloride 0.9% 10 Ml Flush Syringe IV 10 ml BID JODI Administration Sodium Chloride 10 ml 08/05/21 21:03 Sodium Chloride 0.9% 10 Ml Flush Syringe IV PRN PRN LINE FLUSH
[2021-08-23] MEDS: AMIODARONE 360 MG in DEXTROSE 5% IN WATER 192.8 ML IV SCH ×2 (12:53→23:05)
[2021-08-23] MEDS: HALOPERIDOL LACTATE 5 MG/1 ML INJ IV SCH ×3 (12:53→22:50)
[2021-08-23] MEDS ORDERED: niCARdipine 50 MG in SODIUM CHLORIDE 0.9% 250ML 230 ML IV SCH (13:00)
[2021-08-23] MEDS: hydrALAZINE 20 MG/1 ML INJ IV PRN ×2 (14:02→23:42)
[2021-08-23] MEDS: LORazepam 2 MG/ML VIAL IV PRN ×2 (14:03→20:58)
--- NOTE | 2021-08-23 16:23 | Progress Note ---
Assessment and Plan 60 y/o female with known VT in the past, systolic heart failure with BIV AICD admitted with recurrent VT and electrolyte abnormality 08/23/21: Given stability over the last 24 hours, will give trial of transfer to floor. Patient failed swallow eval so can only have IV meds for rate control and BP. Continue NPO status. Continue nocturnal NIV. Guarded prognosis. Needs ENT and EP when she goes to [place]. 08/22/21: Not a candidate for extubation until evaluated by ENT and they review images. ENT not available at this hospital. Now she needs transfer more than ever as she has two issues that we are not able to manage currently. Continue supportive care. Daily PSV trials off sedation. Not sure that steroids are helping, will likely stop tomorrow after discussing on rounds. 08/21/21: No leak on test today. Will do neck CT noncontrast to look for extrisinc issues or potential swelling. Will consult surgery for trach and peg. Await bed at [place]. Guarded prognosis. 08/20/21: Leak test today. If not audible leak, then will give 2 of FFP. Daily leak test should be performed. may need trach if FFP does not work. No runs of VT stable. If bed becomes available at [facility] will transfer. 08/19/21: Continue IV steroids until leak test today. If leak is present will likely stop steroids. Will consider extubation yet again however if fails this time will need trach. Continue rate control therapy. Guarded prognosis. 08/16/21: Still no beds at [facility]. Will do a leak test this afternoon. If no leak, then will start IV steroid therapy. Patient was only intubated for airway protection to help with catecholamine storm associated with VT storm. No prior lung disease. The multiple intubation may have caused some scarring in the trachea but right now this is not known. Continue supportive measures but may e nd up needing trach. 08/15/21: Will discuss with CM if any further news on LTACH acceptance. Attempt PSV trials today. BP still elevated and still on Cardene despite increase in med therapy. Will discuss with cards, and renal, and pharm on rounds. 08/14/21: Given no ICU beds at [place], will attempt to transfer to [facility] with hopes that patient can get ablation and then be transferred back over for further vent weaning. 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 Agree with cards increasing therapy for HTN. Will attempt to wean Cardene 08/13/21: Will start Clonidine 0.1 TID given her persistent need for Cardene drip. Will extubate today and transfer to tele floor. Hoping this will help the patient get a bed faster at [place]. Rate control per cards. 08/12/21: Will discontinue cardene while on HD as goal is to pull 3 liters. Will speak with cards and ask them to call [facility] to see if they have a time frame. Continue supportive measures. Remains on Amio Drip. 08/08/21: Continue supportive measures. Follow up any new cardiac recs. 08/07/21: Await transfer to [place], continue supportive measures Follow up cards recs most likely needs ablation at [place] Continue amio drip per cards CCt 31 minutes. Subjective Date of service: 08/23/21 Principal diagnosis: Recurrent VT Interval history: Patient self extubated on yesterday. Tolerating well on nasal cannula. Wore bipap last night. Remains on steroids. Objective Vital Signs - 12hr 08/23/21 08/23/21 08/23/21 04:30 04:46 05:00 Temperature Pulse Rate 70 70 70 Pulse Rate [ From Monitor] Respiratory 16 13 15 Rate Blood Pressure 153/57 153/57 153/57 O2 Sat by Pulse 100 100 100 Oximetry O2 Sat by Pulse Oximetry [ Anterior Bilateral] O2 Sat by Pulse Oximetry [ Bases] O2 Sat by Pulse Oximetry [ Bilateral Bases ] O2 Sat by Pulse Oximetry [ Bilateral Throughout] 08/23/21 08/23/21 08/23/21 05:16 05:30 05:39 Temperature Pulse Rate 70 70 70 Pulse Rate [ From Monitor] Respiratory 10 L 11 L 15 Rate Blood Pressure 155/57 155/57 153/57 O2 Sat by Pulse 100 100 100 Oximetry O2 Sat by Pulse Oximetry [ Anterior Bilateral] O2 Sat by Pulse Oximetry [ Bases] O2 Sat by Pulse Oximetry [ Bilateral Bases ] O2 Sat by Pulse Oximetry [ Bilateral Throughout] 08/23/21 08/23/21 08/23/21 05:46 05:55 06:00 Temperature Pulse Rate 70 70 70 Pulse Rate [ From Monitor] Respiratory 10 L 17 Rate Blood Pressure 155/57 153/57 155/57 O2 Sat by Pulse 100 100 Oximetry O2 Sat by Pulse Oximetry [ Anterior Bilateral] O2 Sat by Pulse Oximetry [ Bases] O2 Sat by Pulse Oximetry [ Bilateral Bases ] O2 Sat by Pulse Oximetry [ Bilateral Throughout] 08/23/21 08/23/21 08/23/21 06:16 06:30 06:46 Temperature Pulse Rate 70 70 70 Pulse Rate [ From Monitor] Respiratory 12 17 20 Rate Blood Pressure 163/51 163/51 163/51 O2 Sat by Pulse 100 100 100 Oximetry O2 Sat by Pulse Oximetry [ Anterior Bilateral] O2 Sat by Pulse Oximetry [ Bases] O2 Sat by Pulse Oximetry [ Bilateral Bases ] O2 Sat by Pulse Oximetry [ Bilateral Throughout] 08/23/21 08/23/21 08/23/21 07:00 07:16 07:30 Temperature Pulse Rate 70 70 70 Pulse Rate [ From Monitor] Respiratory 18 19 18 Rate Blood Pressure 157/58 157/58 157/58 O2 Sat by Pulse 100 100 100 Oximetry O2 Sat by Pulse Oximetry [ Anterior Bilateral] O2 Sat by Pulse Oximetry [ Bases] O2 Sat by Pulse Oximetry [ Bilateral Bases ] O2 Sat by Pulse Oximetry [ Bilateral Throughout] 08/23/21 08/23/21 08/23/21 07:46 07:53 07:54 Temperature Pulse Rate 70 70 Pulse Rate [ 70 From Monitor] Respiratory 19 19 Rate Blood Pressure 157/58 O2 Sat by Pulse 100 100 Oximetry O2 Sat by Pulse Oximetry [ Anterior Bilateral] O2 Sat by Pulse Oximetry [ Bases] O2 Sat by Pulse Oximetry [ Bilateral Bases ] O2 Sat by Pulse Oximetry [ Bilateral Throughout] 08/23/21 08/23/21 08/23/21 08:00 08:16 08:30 Temperature Pulse Rate 70 70 70 Pulse Rate [ From Monitor] Respiratory 18 19 20 Rate Blood Pressure 157/58 157/58 157/58 O2 Sat by Pulse 100 100 100 Oximetry O2 Sat by Pulse Oximetry [ Anterior Bilateral] O2 Sat by Pulse Oximetry [ Bases] O2 Sat by Pulse Oximetry [ Bilateral Bases ] O2 Sat by Pulse Oximetry [ Bilateral Throughout] 08/23/21 08/23/21 08/23/21 08:46 09:00 09:16 Temperature 99.2 F Pulse Rate 70 70 70 Pulse Rate [ From Monitor] Respiratory 18 19 22 Rate Blood Pressure 157/58 152/54 152/54 O2 Sat by Pulse 100 100 100 Oximetry O2 Sat by Pulse Oximetry [ Anterior Bilateral] O2 Sat by Pulse Oximetry [ Bases] O2 Sat by Pulse Oximetry [ Bilateral Bases ] O2 Sat by Pulse Oximetry [ Bilateral Throughout] 08/23/21 08/23/21 08/23/21 09:27 09:30 09:34 Temperature 98.2 F Pulse Rate 70 70 Pulse Rate [ From Monitor] Respiratory 20 18 Rate Blood Pressure 152/54 152/51 O2 Sat by Pulse 100 100 Oximetry O2 Sat by Pulse 98 Oximetry [ Anterior Bilateral] O2 Sat by Pulse 98 Oximetry [ Bases] O2 Sat by Pulse 98 Oximetry [ Bilateral Bases ] O2 Sat by Pulse 98 Oximetry [ Bilateral Throughout] 08/23/21 08/23/21 08/23/21 09:46 09:49 10:00 Temperature Pulse Rate 70 70 70 Pulse Rate [ From Monitor] Respiratory 19 17 Rate Blood Pressure 146/49 148/54 148/54 O2 Sat by Pulse 100 100 Oximetry O2 Sat by Pulse Oximetry [ Anterior Bilateral] O2 Sat by Pulse Oximetry [ Bases] O2 Sat by Pulse Oximetry [ Bilateral Bases ] O2 Sat by Pulse Oximetry [ Bilateral Throughout] 08/23/21 08/23/21 08/23/21 10:15 10:30 10:45 Temperature Pulse Rate 70 70 70 Pulse Rate [ From Monitor] Respiratory 11 L 16 9 L Rate Blood Pressure 133/58 130/52 123/57 O2 Sat by Pulse 100 100 Oximetry O2 Sat by Pulse Oximetry [ Anterior Bilateral] O2 Sat by Pulse Oximetry [ Bases] O2 Sat by Pulse Oximetry [ Bilateral Bases ] O2 Sat by Pulse Oximetry [ Bilateral Throughout] 08/23/21 08/23/21 08/23/21 11:00 11:15 11:17 Temperature Pulse Rate 70 70 Pulse Rate [ 70 From Monitor] Respiratory 7 L 8 L 21 Rate Blood Pressure 127/55 126/53 O2 Sat by Pulse 100 100 100 Oximetry O2 Sat by Pulse Oximetry [ Anterior Bilateral] O2 Sat by Pulse Oximetry [ Bases] O2 Sat by Pulse Oximetry [ Bilateral Bases ] O2 Sat by Pulse Oximetry [ Bilateral Throughout] 08/23/21 08/23/21 08/23/21 11:30 11:45 12:00 Temperature 98 F Pulse Rate 70 70 70 Pulse Rate [ From Monitor] Respiratory 16 7 L 12 Rate Blood Pressure 134/56 132/51 132/51 O2 Sat by Pulse 100 100 Oximetry O2 Sat by Pulse Oximetry [ Anterior Bilateral] O2 Sat by Pulse Oximetry [ Bases] O2 Sat by Pulse Oximetry [ Bilateral Bases ] O2 Sat by Pulse Oximetry [ Bilateral Throughout] 08/23/21 08/23/21 08/23/21 12:15 12:30 12:46 Temperature Pulse Rate 70 70 70 Pulse Rate [ From Monitor] Respiratory 14 12 10 L Rate Blood Pressure 135/52 145/55 122/59 O2 Sat by Pulse 99 100 Oximetry O2 Sat by Pulse Oximetry [ Anterior Bilateral] O2 Sat by Pulse Oximetry [ Bases] O2 Sat by Pulse Oximetry [ Bilateral Bases ] O2 Sat by Pulse Oximetry [ Bilateral Throughout] 08/23/21 08/23/21 08/23/21 12:49 13:00 13:15 Temperature 98 F Pulse Rate 71 70 70 Pulse Rate [ From Monitor] Respiratory 11 L 12 Rate Blood Pressure 122/59 122/59 143/75 O2 Sat by Pulse 99 Oximetry O2 Sat by Pulse 99 Oximetry [ Anterior Bilateral] O2 Sat by Pulse 99 Oximetry [ Bases] O2 Sat by Pulse 98 Oximetry [ Bilateral Bases ] O2 Sat by Pulse 99 Oximetry [ Bilateral Throughout] 08/23/21 08/23/21 08/23/21 13:16 13:30 13:45 Temperature Pulse Rate 70 70 70 Pulse Rate [ From Monitor] Respiratory 12 9 L 14 Rate Blood Pressure 143/95 143/95 165/61 O2 Sat by Pulse 100 81 L Oximetry O2 Sat by Pulse Oximetry [ Anterior Bilateral] O2 Sat by Pulse Oximetry [ Bases] O2 Sat by Pulse Oximetry [ Bilateral Bases ] O2 Sat by Pulse Oximetry [ Bilateral Throughout] 08/23/21 08/23/21 08/23/21 14:00 14:02 14:15 Temperature Pulse Rate 70 70 70 Pulse Rate [ From Monitor] Respiratory 13 10 L Rate Blood Pressure 165/61 165/55 182/59 O2 Sat by Pulse 85 Oximetry O2 Sat by Pulse Oximetry [ Anterior Bilateral] O2 Sat by Pulse Oximetry [ Bases] O2 Sat by Pulse Oximetry [ Bilateral Bases ] O2 Sat by Pulse Oximetry [ Bilateral Throughout] 08/23/21 08/23/21 08/23/21 14:30 14:45 15:00 Temperature Pulse Rate 70 70 70 Pulse Rate [ From Monitor] Respiratory 14 10 L 17 Rate Blood Pressure 172/62 185/59 154/59 O2 Sat by Pulse 96 99 93 Oximetry O2 Sat by Pulse Oximetry [ Anterior Bilateral] O2 Sat by Pulse Oximetry [ Bases] O2 Sat by Pulse Oximetry [ Bilateral Bases ] O2 Sat by Pulse Oximetry [ Bilateral Throughout] 08/23/21 08/23/21 08/23/21 15:15 15:30 15:45 Temperature Pulse Rate 70 90 70 Pulse Rate [ From Monitor] Respiratory 13 11 L 0 L Rate Blood Pressure 171/64 198/63 158/72 O2 Sat by Pulse 76 L 100 100 Oximetry O2 Sat by Pulse Oximetry [ Anterior Bilateral] O2 Sat by Pulse Oximetry [ Bases] O2 Sat by Pulse Oximetry [ Bilateral Bases ] O2 Sat by Pulse Oximetry [ Bilateral Throughout] 08/23/21 08/23/21 08/23/21 15:49 15:50 16:00 Temperature Pulse Rate 70 70 Pulse Rate [ 70 From Monitor] Respiratory 15 18 Rate Blood Pressure 162/76 O2 Sat by Pulse 100 100 Oximetry O2 Sat by Pulse Oximetry [ Anterior Bilateral] O2 Sat by Pulse Oximetry [ Bases] O2 Sat by Pulse Oximetry [ Bilateral Bases ] O2 Sat by Pulse Oximetry [ Bilateral Throughout] Constitutional: alert, other (intubated ) Eyes: non-icteric ENT: other (orally intubated, lips swollen) Neck: supple Effort: normal Ascultation: Bilateral: clear Percussion: Bilateral: not dull Cardiovascular: regular rate and rhythm (no mrg) Gastrointestinal: normoactive bowel sounds, soft, non-tender, non-distended Integumentary: normal Extremities: no cyanosis, no edema, pink and warm Neurologic: other (follows commands) Psychiatric: other (unable to assess) CBC and BMP: 08/23/21 04:35 08/23/21 04:35 ABG, PT/INR, D-dimer: ABG ABG pH 7.508 (7.320-7.450) H 08/20/21 04:25 POC ABG pCO2 35.1 mmHg (32.0-48.0) 08/20/21 04:25 ABG pCO2 41.2 mm Hg 08/09/21 04:30 POC ABG pO2 139.8 mmHg (83-108) H 08/20/21 04:25 ABG pO2 91.5 mm Hg (80.0-90.0) H 08/09/21 04:30 POC ABG HCO3 27.3 08/20/21 04:25 ABG O2 Saturation 99.1 (0-100) 08/20/21 04:25 PT/INR, D-dimer PT 14.2 Sec. (12.2-14.9) 08/06/21 16:35 INR 0.99 (0.87-1.13) 08/06/21 16:35 Abnormal lab findings: Abnormal Labs 08/05/21 08/05/21 08/05/21 15:55 15:55 18:50 WBC 3.7 L RBC 2.98 L Hgb 7.5 L Hct 23.8 L MCH 25 L RDW 18.9 H Plt Count 134 L Lymph % (Auto) Wilson % (Auto) Lymph # (Auto) Seg Neutrophils % Seg Neuts % (Manual) Lymphocytes % (Manual) Monocytes % (Manual) 18.0 H Eosinophils % (Manual) Basophils % (Manual) 2.0 H Seg Neutrophils # Seg Neutrophils # Man Lymphocytes # (Manual) 0.9 L Monocytes # (Manual) APTT ABG pH 7.523 H POC ABG pCO2 POC ABG pO2 ABG pO2 47.1 L ABG HCO3 34.6 H ABG O2 Saturation 85.4 L ABG Base Excess 10.8 H ABG Hemoglobin 7.3 L ABG Oxyhemoglobin ABG Sodium ABG Potassium ABG Chloride ABG Glucose Oxyhemoglobin 83.6 L Carboxyhemoglobin Sodium Potassium 2.7 L* Chloride 93.8 L Carbon Dioxide 33 H BUN Creatinine 2.8 H Glucose 124 H POC Glucose Calcium 8.2 L Phosphorus ALT < 5 L Troponin T 0.126 H* Total Protein Albumin 3.5 L Triglycerides 202 H HDL Cholesterol 32 L TSH Arterial Blood Glucose Crossmatch 08/05/21 08/05/21 08/06/21 18:56 Unknown 04:20 WBC RBC Hgb Hct MCH RDW Plt Count Lymph % (Auto) Wilson % (Auto) Lymph # (Auto) Seg Neutrophils % Seg Neuts % (Manual) Lymphocytes % (Manual) Monocytes % (Manual) Eosinophils % (Manual) Basophils % (Manual) Seg Neutrophils # Seg Neutrophils # Man Lymphocytes # (Manual) Monocytes # (Manual) APTT ABG pH 7.575 H 7.606 H* POC ABG pCO2 POC ABG pO2 ABG pO2 142.9 H 111.2 H ABG HCO3 33.2 H 33.6 H ABG O2 Saturation ABG Base Excess 10.4 H 11.2 H ABG Hemoglobin 6.6 L 6.8 L ABG Oxyhemoglobin ABG Sodium ABG Potassium ABG Chloride ABG Glucose Oxyhemoglobin Carboxyhemoglobin Sodium Potassium Chloride Carbon Dioxide BUN Creatinine Glucose POC Glucose Calcium Phosphorus ALT Troponin T 0.183 H* D Total Protein Albumin Triglycerides HDL Cholesterol TSH Arterial Blood Glucose Crossmatch 08/06/21 08/06/21 08/06/21 04:29 04:29 04:29 WBC 2.5 L RBC 2.70 L Hgb 6.8 L Hct 21.3 L MCH 25 L RDW 18.1 H Plt Count 126 L Lymph % (Auto) 45.0 H Wilson % (Auto) 13.6 H Lymph # (Auto) 1.1 L Seg Neutrophils % 37.3 L Seg Neuts % (Manual) Lymphocytes % (Manual) Monocytes % (Manual) Eosinophils % (Manual) Basophils % (Manual) Seg Neutrophils # 0.9 L Seg Neutrophils # Man Lymphocytes # (Manual) Monocytes # (Manual) APTT 38.8 H ABG pH POC ABG pCO2 POC ABG pO2 ABG pO2 ABG HCO3 ABG O2 Saturation ABG Base Excess ABG Hemoglobin ABG Oxyhemoglobin ABG Sodium ABG Potassium ABG Chloride ABG Glucose Oxyhemoglobin Carboxyhemoglobin Sodium 136 L Potassium 3.0 L Chloride 92.6 L Carbon Dioxide 32 H BUN Creatinine 3.8 H Glucose POC Glucose Calcium Phosphorus ALT Troponin T Total Protein 5.8 L Albumin 3.1 L Triglycerides HDL Cholesterol TSH Arterial Blood Glucose Crossmatch 08/06/21 08/06/21 08/06/21 05:30 07:26 07:26 WBC RBC Hgb 7.0 L Hct 22.5 L MCH RDW Plt Count 127 L Lymph % (Auto) Wilson % (Auto) Lymph # (Auto) Seg Neutrophils % Seg Neuts % (Manual) Lymphocytes % (Manual) Monocytes % (Manual) Eosinophils % (Manual) Basophils % (Manual) Seg Neutrophils # Seg Neutrophils # Man Lymphocytes # (Manual) Monocytes # (Manual) APTT 37.1 H ABG pH POC ABG pCO2 POC ABG pO2 ABG pO2 ABG HCO3 ABG O2 Saturation ABG Base Excess ABG Hemoglobin ABG Oxyhemoglobin ABG Sodium ABG Potassium ABG Chloride ABG Glucose Oxyhemoglobin Carboxyhemoglobin Sodium Potassium Chloride Carbon Dioxide BUN Creatinine Glucose POC Glucose Calcium Phosphorus ALT Troponin T Total Protein Albumin Triglycerides HDL Cholesterol TSH Arterial Blood Glucose Crossmatch See Detail 08/06/21 08/06/21 08/06/21 08:06 14:50 16:03 WBC RBC Hgb Hct MCH RDW Plt Count Lymph % (Auto) Wilson % (Auto) Lymph # (Auto) Seg Neutrophils % Seg Neuts % (Manual) Lymphocytes % (Manual) Monocytes % (Manual) Eosinophils % (Manual) Basophils % (Manual) Seg Neutrophils # Seg Neutrophils # Man Lymphocytes # (Manual) Monocytes # (Manual) APTT ABG pH POC ABG pCO2 POC ABG pO2 ABG pO2 ABG HCO3 ABG O2 Saturation ABG Base Excess ABG Hemoglobin ABG Oxyhemoglobin ABG Sodium ABG Potassium ABG Chloride ABG Glucose Oxyhemoglobin Carboxyhemoglobin Sodium Potassium 3.1 L Chloride 92.4 L Carbon Dioxide 33 H BUN Creatinine 3.9 H Glucose POC Glucose 59 L 121 H Calcium Phosphorus ALT Troponin T Total Protein Albumin Triglycerides HDL Cholesterol TSH Arterial Blood Glucose Crossmatch 08/06/21 08/06/21 08/06/21 16:35 16:35 17:31 WBC 4.2 L RBC 3.27 L Hgb 8.5 L Hct 26.8 L MCH 26 L RDW 18.7 H Plt Count 124 L Lymph % (Auto) Wilson % (Auto) 15.5 H Lymph # (Auto) 0.8 L Seg Neutrophils % Seg Neuts % (Manual) Lymphocytes % (Manual) Monocytes % (Manual) Eosinophils % (Manual) Basophils % (Manual) Seg Neutrophils # Seg Neutrophils # Man Lymphocytes # (Manual) Monocytes # (Manual) APTT ABG pH POC ABG pCO2 POC ABG pO2 ABG pO2 ABG HCO3 ABG O2 Saturation ABG Base Excess ABG Hemoglobin ABG Oxyhemoglobin ABG Sodium ABG Potassium ABG Chloride ABG Glucose Oxyhemoglobin Carboxyhemoglobin Sodium 133 L Potassium Chloride 93.2 L Carbon Dioxide BUN 21 H Creatinine 4.6 H Glucose POC Glucose 62 L Calcium 8.3 L Phosphorus ALT Troponin T Total Protein 6.2 L Albumin 3.2 L Triglycerides HDL Cholesterol TSH Arterial Blood Glucose Crossmatch 08/06/21 08/06/21 08/07/21 18:14 18:22 04:00 WBC 1.0 L* RBC 2.67 L Hgb 7.0 L Hct 21.8 L MCH 26 L RDW 18.7 H Plt Count 82 L Lymph % (Auto) Wilson % (Auto) Lymph # (Auto) Seg Neutrophils % Seg Neuts % (Manual) 16.0 L Lymphocytes % (Manual) 60.0 H Monocytes % (Manual) Eosinophils % (Manual) 11.0 H Basophils % (Manual) 4.0 H Seg Neutrophils # Seg Neutrophils # Man 0.2 L Lymphocytes # (Manual) 0.6 L Monocytes # (Manual) APTT ABG pH 7.565 H POC ABG pCO2 POC ABG pO2 ABG pO2 113.3 H ABG HCO3 29.4 H ABG O2 Saturation ABG Base Excess 6.9 H ABG Hemoglobin 8.3 L ABG Oxyhemoglobin ABG Sodium ABG Potassium ABG Chloride ABG Glucose Oxyhemoglobin Carboxyhemoglobin Sodium Potassium Chloride Carbon Dioxide BUN Creatinine Glucose POC Glucose 148 H Calcium Phosphorus ALT Troponin T Total Protein Albumin Triglycerides HDL Cholesterol TSH Arterial Blood Glucose Crossmatch 08/07/21 08/07/21 08/07/21 04:00 04:25 08:30 WBC RBC Hgb Hct MCH RDW Plt Count Lymph % (Auto) Wilson % (Auto) Lymph # (Auto) Seg Neutrophils % Seg Neuts % (Manual) Lymphocytes % (Manual) Monocytes % (Manual) Eosinophils % (Manual) Basophils % (Manual) Seg Neutrophils # Seg Neutrophils # Man Lymphocytes # (Manual) Monocytes # (Manual) APTT ABG pH 7.609 H* 7.479 H POC ABG pCO2 POC ABG pO2 ABG pO2 121.4 H 130.2 H ABG HCO3 28.5 H 30.3 H ABG O2 Saturation ABG Base Excess 7.2 H 6.2 H ABG Hemoglobin 10.7 L 8.1 L ABG Oxyhemoglobin ABG Sodium ABG Potassium ABG Chloride ABG Glucose Oxyhemoglobin Carboxyhemoglobin Sodium 133 L Potassium 3.2 L D Chloride 93.9 L Carbon Dioxide BUN 23 H Creatinine 4.3 H Glucose POC Glucose Calcium 8.1 L Phosphorus ALT Troponin T Total Protein Albumin Triglycerides HDL Cholesterol TSH Arterial Blood Glucose Crossmatch 08/07/21 08/07/21 08/07/21 13:18 13:30 15:51 WBC RBC Hgb Hct MCH RDW Plt Count Lymph % (Auto) Wilson % (Auto) Lymph # (Auto) Seg Neutrophils % Seg Neuts % (Manual) Lymphocytes % (Manual) Monocytes % (Manual) Eosinophils % (Manual) Basophils % (Manual) Seg Neutrophils # Seg Neutrophils # Man Lymphocytes # (Manual) Monocytes # (Manual) APTT ABG pH POC ABG pCO2 POC ABG pO2 ABG pO2 ABG HCO3 ABG O2 Saturation ABG Base Excess ABG Hemoglobin ABG Oxyhemoglobin ABG Sodium ABG Potassium ABG Chloride ABG Glucose Oxyhemoglobin Carboxyhemoglobin Sodium Potassium Chloride Carbon Dioxide BUN Creatinine Glucose POC Glucose 67 L 58 L Calcium Phosphorus ALT Troponin T Total Protein Albumin Triglycerides HDL Cholesterol TSH 7.070 H Arterial Blood Glucose Crossmatch 08/08/21 08/08/21 08/08/21 04:19 04:26 04:26 WBC RBC Hgb 6.8 L Hct 21.6 L MCH RDW Plt Count 91 L Lymph % (Auto) Wilson % (Auto) Lymph # (Auto) Seg Neutrophils % Seg Neuts % (Manual) Lymphocytes % (Manual) Monocytes % (Manual) Eosinophils % (Manual) Basophils % (Manual) Seg Neutrophils # Seg Neutrophils # Man Lymphocytes # (Manual) Monocytes # (Manual) APTT ABG pH 7.545 H POC ABG pCO2 POC ABG pO2 ABG pO2 136.1 H ABG HCO3 27.3 H ABG O2 Saturation ABG Base Excess 4.5 H ABG Hemoglobin 6.9 L ABG Oxyhemoglobin ABG Sodium ABG Potassium ABG Chloride ABG Glucose Oxyhemoglobin Carboxyhemoglobin Sodium 132 L Potassium Chloride 93.5 L Carbon Dioxide BUN Creatinine 3.7 H Glucose POC Glucose Calcium Phosphorus ALT Troponin T Total Protein Albumin Triglycerides HDL Cholesterol TSH Arterial Blood Glucose Crossmatch 08/08/21 08/08/21 08/08/21 09:45 12:23 18:51 WBC RBC Hgb Hct MCH RDW Plt Count Lymph % (Auto) Wilson % (Auto) Lymph # (Auto) Seg Neutrophils % Seg Neuts % (Manual) Lymphocytes % (Manual) Monocytes % (Manual) Eosinophils % (Manual) Basophils % (Manual) Seg Neutrophils # Seg Neutrophils # Man Lymphocytes # (Manual) Monocytes # (Manual) APTT ABG pH 7.471 H POC ABG pCO2 POC ABG pO2 71.1 L ABG pO2 ABG HCO3 ABG O2 Saturation ABG Base Excess ABG Hemoglobin ABG Oxyhemoglobin ABG Sodium 128.9 L ABG Potassium ABG Chloride 95.0 L ABG Glucose 64 L Oxyhemoglobin Carboxyhemoglobin Sodium Potassium Chloride Carbon Dioxide BUN Creatinine Glucose POC Glucose 58 L 68 L Calcium Phosphorus ALT Troponin T Total Protein Albumin Triglycerides HDL Cholesterol TSH Arterial Blood Glucose 64 L Crossmatch 08/09/21 08/09/21 08/09/21 04:30 04:33 04:33 WBC 2.4 L RBC 3.16 L Hgb 8.3 L Hct 26.5 L MCH 26 L RDW 18.3 H Plt Count 113 L Lymph % (Auto) Wilson % (Auto) Lymph # (Auto) Seg Neutrophils % Seg Neuts % (Manual) Lymphocytes % (Manual) Monocytes % (Manual) Eosinophils % (Manual) Basophils % (Manual) Seg Neutrophils # Seg Neutrophils # Man Lymphocytes # (Manual) Monocytes # (Manual) APTT ABG pH POC ABG pCO2 POC ABG pO2 ABG pO2 91.5 H ABG HCO3 26.6 H ABG O2 Saturation ABG Base Excess ABG Hemoglobin 9.0 L ABG Oxyhemoglobin ABG Sodium ABG Potassium ABG Chloride ABG Glucose Oxyhemoglobin Carboxyhemoglobin Sodium 129 L Potassium Chloride 91.9 L Carbon Dioxide BUN 22 H Creatinine 4.7 H Glucose POC Glucose Calcium Phosphorus ALT Troponin T Total Protein Albumin Triglycerides HDL Cholesterol TSH Arterial Blood Glucose Crossmatch 08/10/21 08/10/21 08/10/21 04:00 04:00 04:55 WBC 3.3 L RBC 3.32 L Hgb 8.9 L Hct 27.6 L MCH 27 L RDW 18.3 H Plt Count Lymph % (Auto) Wilson % (Auto) Lymph # (Auto) Seg Neutrophils % Seg Neuts % (Manual) Lymphocytes % (Manual) Monocytes % (Manual) 9.0 H Eosinophils % (Manual) Basophils % (Manual) Seg Neutrophils # Seg Neutrophils # Man Lymphocytes # (Manual) 0.6 L Monocytes # (Manual) APTT ABG pH POC ABG pCO2 POC ABG pO2 ABG pO2 ABG HCO3 ABG O2 Saturation ABG Base Excess ABG Hemoglobin 9.6 L ABG Oxyhemoglobin ABG Sodium 120.3 L ABG Potassium 5.2 H ABG Chloride 88.0 L ABG Glucose Oxyhemoglobin Carboxyhemoglobin 0.4 L Sodium 123 L Potassium 5.5 H D Chloride 84.8 L Carbon Dioxide BUN 30 H Creatinine 5.5 H Glucose 139 H POC Glucose Calcium Phosphorus 5.90 H ALT Troponin T Total Protein Albumin Triglycerides HDL Cholesterol TSH Arterial Blood Glucose Crossmatch 08/10/21 08/11/21 08/11/21 12:17 04:00 05:53 WBC RBC 3.50 L Hgb 9.2 L Hct 29.0 L MCH 26 L RDW 18.4 H Plt Count Lymph % (Auto) Wilson % (Auto) Lymph # (Auto) Seg Neutrophils % Seg Neuts % (Manual) 76.0 H Lymphocytes % (Manual) 8.0 L Monocytes % (Manual) 13.0 H Eosinophils % (Manual) Basophils % (Manual) Seg Neutrophils # Seg Neutrophils # Man Lymphocytes # (Manual) 0.6 L Monocytes # (Manual) 0.9 H APTT ABG pH POC ABG pCO2 POC ABG pO2 ABG pO2 ABG HCO3 ABG O2 Saturation ABG Base Excess ABG Hemoglobin ABG Oxyhemoglobin ABG Sodium ABG Potassium ABG Chloride ABG Glucose Oxyhemoglobin Carboxyhemoglobin Sodium 128 L Potassium Chloride 90.3 L Carbon Dioxide BUN 24 H Creatinine 4.3 H Glucose 135 H POC Glucose 142 H Calcium Phosphorus ALT Troponin T Total Protein Albumin Triglycerides HDL Cholesterol TSH Arterial Blood Glucose Crossmatch 08/11/21 08/12/21 08/12/21 16:39 05:23 05:23 WBC RBC 3.20 L Hgb 8.8 L Hct 26.7 L MCH RDW 18.6 H Plt Count Lymph % (Auto) Wilson % (Auto) Lymph # (Auto) Seg Neutrophils % Seg Neuts % (Manual) Lymphocytes % (Manual) Monocytes % (Manual) Eosinophils % (Manual) Basophils % (Manual) Seg Neutrophils # Seg Neutrophils # Man Lymphocytes # (Manual) Monocytes # (Manual) APTT ABG pH POC ABG pCO2 POC ABG pO2 ABG pO2 ABG HCO3 ABG O2 Saturation ABG Base Excess ABG Hemoglobin ABG Oxyhemoglobin ABG Sodium ABG Potassium ABG Chloride ABG Glucose Oxyhemoglobin Carboxyhemoglobin Sodium 125 L Potassium Chloride 86.6 L Carbon Dioxide 21 L BUN 34 H Creatinine 5.0 H Glucose 111 H POC Glucose 112 H Calcium Phosphorus ALT Troponin T Total Protein Albumin Triglycerides HDL Cholesterol TSH Arterial Blood Glucose Crossmatch 01/10/2908/12/21 08/13/21 12:18 17:56 06:01 WBC RBC Hgb Hct MCH RDW Plt Count Lymph % (Auto) Wilson % (Auto) Lymph # (Auto) Seg Neutrophils % Seg Neuts % (Manual) Lymphocytes % (Manual) Monocytes % (Manual) Eosinophils % (Manual) Basophils % (Manual) Seg Neutrophils # Seg Neutrophils # Man Lymphocytes # (Manual) Monocytes # (Manual) APTT ABG pH POC ABG pCO2 POC ABG pO2 ABG pO2 ABG HCO3 ABG O2 Saturation ABG Base Excess ABG Hemoglobin ABG Oxyhemoglobin ABG Sodium ABG Potassium ABG Chloride ABG Glucose Oxyhemoglobin Carboxyhemoglobin Sodium Potassium Chloride Carbon Dioxide BUN Creatinine Glucose POC Glucose 140 H 119 H 110 H Calcium Phosphorus ALT Troponin T Total Protein Albumin Triglycerides HDL Cholesterol TSH Arterial Blood Glucose Crossmatch 08/13/21 08/13/21 08/14/21 Unknown Unknown 04:00 WBC RBC Hgb Hct MCH RDW Plt Count Lymph % (Auto) Wilson % (Auto) Lymph # (Auto) Seg Neutrophils % Seg Neuts % (Manual) Lymphocytes % (Manual) Monocytes % (Manual) Eosinophils % (Manual) Basophils % (Manual) Seg Neutrophils # Seg Neutrophils # Man Lymphocytes # (Manual) Monocytes # (Manual) APTT ABG pH POC ABG pCO2 POC ABG pO2 ABG pO2 ABG HCO3 ABG O2 Saturation ABG Base Excess ABG Hemoglobin ABG Oxyhemoglobin ABG Sodium ABG Potassium ABG Chloride ABG Glucose Oxyhemoglobin Carboxyhemoglobin Sodium 129 L 128 L Potassium Chloride 90.1 L 89.7 L Carbon Dioxide BUN 24 H 36 H Creatinine 3.8 H 4.2 H Glucose POC Glucose Calcium Phosphorus ALT Troponin T Total Protein Albumin Triglycerides 399 H HDL Cholesterol TSH Arterial Blood Glucose Crossmatch 08/14/21 08/14/21 08/14/21 05:44 11:57 13:12 WBC RBC Hgb Hct MCH RDW Plt Count Lymph % (Auto) Wilson % (Auto) Lymph # (Auto) Seg Neutrophils % Seg Neuts % (Manual) Lymphocytes % (Manual) Monocytes % (Manual) Eosinophils % (Manual) Basophils % (Manual) Seg Neutrophils # Seg Neutrophils # Man Lymphocytes # (Manual) Monocytes # (Manual) APTT ABG pH 7.498 H POC ABG pCO2 29.1 L POC ABG pO2 61.8 L ABG pO2 ABG HCO3 ABG O2 Saturation ABG Base Excess ABG Hemoglobin 8.6 L ABG Oxyhemoglobin 91.9 L ABG Sodium 126.4 L ABG Potassium ABG Chloride 92.0 L ABG Glucose 99 H Oxyhemoglobin Carboxyhemoglobin Sodium Potassium Chloride Carbon Dioxide BUN Creatinine Glucose POC Glucose 111 H 111 H Calcium Phosphorus ALT Troponin T Total Protein Albumin Triglycerides HDL Cholesterol TSH Arterial Blood Glucose 99 H Crossmatch 08/14/21 08/15/21 08/15/21 Unknown 04:34 04:34 WBC RBC 3.14 L 2.79 L Hgb 8.5 L 7.8 L Hct 25.5 L 22.8 L MCH 27 L RDW 19.1 H 18.8 H Plt Count Lymph % (Auto) Wilson % (Auto) Lymph # (Auto) Seg Neutrophils % Seg Neuts % (Manual) Lymphocytes % (Manual) Monocytes % (Manual) Eosinophils % (Manual) Basophils % (Manual) Seg Neutrophils # Seg Neutrophils # Man Lymphocytes # (Manual) Monocytes # (Manual) APTT ABG pH POC ABG pCO2 POC ABG pO2 ABG pO2 ABG HCO3 ABG O2 Saturation ABG Base Excess ABG Hemoglobin ABG Oxyhemoglobin ABG Sodium ABG Potassium ABG Chloride ABG Glucose Oxyhemoglobin Carboxyhemoglobin Sodium 128 L Potassium Chloride 88.8 L Carbon Dioxide BUN 44 H Creatinine 5.1 H Glucose POC Glucose Calcium Phosphorus ALT Troponin T Total Protein Albumin Triglycerides HDL Cholesterol TSH Arterial Blood Glucose Crossmatch 08/15/21 08/15/21 08/15/21 05:22 10:56 16:52 WBC RBC Hgb Hct MCH RDW Plt Count Lymph % (Auto) Wilson % (Auto) Lymph # (Auto) Seg Neutrophils % Seg Neuts % (Manual) Lymphocytes % (Manual) Monocytes % (Manual) Eosinophils % (Manual) Basophils % (Manual) Seg Neutrophils # Seg Neutrophils # Man Lymphocytes # (Manual) Monocytes # (Manual) APTT ABG pH 7.496 H POC ABG pCO2 29.8 L POC ABG pO2 ABG pO2 ABG HCO3 ABG O2 Saturation ABG Base Excess ABG Hemoglobin 7.4 L ABG Oxyhemoglobin ABG Sodium 124.3 L ABG Potassium ABG Chloride 92.0 L ABG Glucose Oxyhemoglobin Carboxyhemoglobin Sodium Potassium Chloride Carbon Dioxide BUN Creatinine Glucose POC Glucose 111 H 115 H Calcium Phosphorus ALT Troponin T Total Protein Albumin Triglycerides HDL Cholesterol TSH Arterial Blood Glucose Crossmatch 08/16/21 08/16/21 08/16/21 04:00 04:00 10:57 WBC RBC 2.96 L Hgb 8.0 L Hct 23.9 L MCH 27 L RDW 18.6 H Plt Count Lymph % (Auto) Wilson % (Auto) Lymph # (Auto) Seg Neutrophils % Seg Neuts % (Manual) Lymphocytes % (Manual) Monocytes % (Manual) Eosinophils % (Manual) Basophils % (Manual) Seg Neutrophils # Seg Neutrophils # Man Lymphocytes # (Manual) Monocytes # (Manual) APTT ABG pH POC ABG pCO2 POC ABG pO2 ABG pO2 ABG HCO3 ABG O2 Saturation ABG Base Excess ABG Hemoglobin ABG Oxyhemoglobin ABG Sodium ABG Potassium ABG Chloride ABG Glucose Oxyhemoglobin Carboxyhemoglobin Sodium 132 L Potassium Chloride 93.1 L Carbon Dioxide BUN 26 H Creatinine 3.9 H Glucose 119 H POC Glucose 112 H Calcium Phosphorus ALT Troponin T Total Protein Albumin Triglycerides HDL Cholesterol TSH Arterial Blood Glucose Crossmatch 08/16/21 08/17/21 08/17/21 23:20 04:00 04:00 WBC RBC 3.07 L Hgb 8.1 L Hct 25.0 L MCH 26 L RDW 19.3 H Plt Count Lymph % (Auto) Wilson % (Auto) Lymph # (Auto) Seg Neutrophils % Seg Neuts % (Manual) Lymphocytes % (Manual) Monocytes % (Manual) Eosinophils % (Manual) Basophils % (Manual) Seg Neutrophils # Seg Neutrophils # Man Lymphocytes # (Manual) Monocytes # (Manual) APTT ABG pH POC ABG pCO2 POC ABG pO2 ABG pO2 ABG HCO3 ABG O2 Saturation ABG Base Excess ABG Hemoglobin ABG Oxyhemoglobin ABG Sodium ABG Potassium ABG Chloride ABG Glucose Oxyhemoglobin Carboxyhemoglobin Sodium 135 L Potassium Chloride 97.4 L Carbon Dioxide BUN 20 H Creatinine 3.0 H Glucose 171 H POC Glucose 125 H Calcium Phosphorus ALT Troponin T Total Protein Albumin Triglycerides HDL Cholesterol TSH Arterial Blood Glucose Crossmatch 08/17/21 08/17/21 08/17/21 05:09 05:12 11:46 WBC RBC Hgb Hct MCH RDW Plt Count Lymph % (Auto) Wilson % (Auto) Lymph # (Auto) Seg Neutrophils % Seg Neuts % (Manual) Lymphocytes % (Manual) Monocytes % (Manual) Eosinophils % (Manual) Basophils % (Manual) Seg Neutrophils # Seg Neutrophils # Man Lymphocytes # (Manual) Monocytes # (Manual) APTT ABG pH 7.579 H POC ABG pCO2 27.0 L POC ABG pO2 139.0 H ABG pO2 ABG HCO3 ABG O2 Saturation ABG Base Excess ABG Hemoglobin 8.1 L ABG Oxyhemoglobin 98.3 H ABG Sodium 132.1 L ABG Potassium ABG Chloride ABG Glucose 160 H Oxyhemoglobin Carboxyhemoglobin Sodium Potassium Chloride Carbon Dioxide BUN Creatinine Glucose POC Glucose 155 H 170 H Calcium Phosphorus ALT Troponin T Total Protein Albumin Triglycerides HDL Cholesterol TSH Arterial Blood Glucose 160 H Crossmatch 08/17/21 08/18/21 08/18/21 17:41 00:21 04:00 WBC RBC 2.82 L Hgb 7.5 L Hct 22.7 L MCH 27 L RDW 18.9 H Plt Count Lymph % (Auto) Wilson % (Auto) Lymph # (Auto) Seg Neutrophils % Seg Neuts % (Manual) Lymphocytes % (Manual) Monocytes % (Manual) Eosinophils % (Manual) Basophils % (Manual) Seg Neutrophils # Seg Neutrophils # Man Lymphocytes # (Manual) Monocytes # (Manual) APTT ABG pH POC ABG pCO2 POC ABG pO2 ABG pO2 ABG HCO3 ABG O2 Saturation ABG Base Excess ABG Hemoglobin ABG Oxyhemoglobin ABG Sodium ABG Potassium ABG Chloride ABG Glucose Oxyhemoglobin Carboxyhemoglobin Sodium Potassium Chloride Carbon Dioxide BUN Creatinine Glucose POC Glucose 150 H 152 H Calcium Phosphorus ALT Troponin T Total Protein Albumin Triglycerides HDL Cholesterol TSH Arterial Blood Glucose Crossmatch 08/18/21 08/18/21 08/18/21 04:00 05:38 11:58 WBC RBC Hgb Hct MCH RDW Plt Count Lymph % (Auto) Wilson % (Auto) Lymph # (Auto) Seg Neutrophils % Seg Neuts % (Manual) Lymphocytes % (Manual) Monocytes % (Manual) Eosinophils % (Manual) Basophils % (Manual) Seg Neutrophils # Seg Neutrophils # Man Lymphocytes # (Manual) Monocytes # (Manual) APTT ABG pH POC ABG pCO2 POC ABG pO2 ABG pO2 ABG HCO3 ABG O2 Saturation ABG Base Excess ABG Hemoglobin ABG Oxyhemoglobin ABG Sodium ABG Potassium ABG Chloride ABG Glucose Oxyhemoglobin Carboxyhemoglobin Sodium 132 L Potassium Chloride 94.8 L Carbon Dioxide BUN 36 H Creatinine 4.0 H Glucose 168 H POC Glucose 158 H 139 H Calcium Phosphorus ALT Troponin T Total Protein Albumin Triglycerides HDL Cholesterol TSH Arterial Blood Glucose Crossmatch 08/18/21 08/18/21 08/19/21 16:17 23:11 04:00 WBC RBC 3.09 L Hgb 8.2 L Hct 25.0 L MCH 27 L RDW 19.0 H Plt Count 506 H Lymph % (Auto) Wilson % (Auto) Lymph # (Auto) Seg Neutrophils % Seg Neuts % (Manual) Lymphocytes % (Manual) Monocytes % (Manual) Eosinophils % (Manual) Basophils % (Manual) Seg Neutrophils # Seg Neutrophils # Man Lymphocytes # (Manual) Monocytes # (Manual) APTT ABG pH POC ABG pCO2 POC ABG pO2 ABG pO2 ABG HCO3 ABG O2 Saturation ABG Base Excess ABG Hemoglobin ABG Oxyhemoglobin ABG Sodium ABG Potassium ABG Chloride ABG Glucose Oxyhemoglobin Carboxyhemoglobin Sodium Potassium Chloride Carbon Dioxide BUN Creatinine Glucose POC Glucose 126 H 170 H Calcium Phosphorus ALT Troponin T Total Protein Albumin Triglycerides HDL Cholesterol TSH Arterial Blood Glucose Crossmatch 08/19/21 08/19/21 08/19/21 04:00 05:17 12:34 WBC RBC Hgb Hct MCH RDW Plt Count Lymph % (Auto) Wilson % (Auto) Lymph # (Auto) Seg Neutrophils % Seg Neuts % (Manual) Lymphocytes % (Manual) Monocytes % (Manual) Eosinophils % (Manual) Basophils % (Manual) Seg Neutrophils # Seg Neutrophils # Man Lymphocytes # (Manual) Monocytes # (Manual) APTT ABG pH POC ABG pCO2 POC ABG pO2 ABG pO2 ABG HCO3 ABG O2 Saturation ABG Base Excess ABG Hemoglobin ABG Oxyhemoglobin ABG Sodium ABG Potassium ABG Chloride ABG Glucose Oxyhemoglobin Carboxyhemoglobin Sodium 135 L Potassium Chloride 94.4 L Carbon Dioxide BUN 53 H Creatinine 4.5 H Glucose 125 H POC Glucose 113 H 130 H Calcium Phosphorus ALT Troponin T Total Protein Albumin Triglycerides HDL Cholesterol TSH Arterial Blood Glucose Crossmatch 08/19/21 08/20/21 08/20/21 23:30 04:25 05:11 WBC RBC Hgb Hct MCH RDW Plt Count Lymph % (Auto) Wilson % (Auto) Lymph # (Auto) Seg Neutrophils % Seg Neuts % (Manual) Lymphocytes % (Manual) Monocytes % (Manual) Eosinophils % (Manual) Basophils % (Manual) Seg Neutrophils # Seg Neutrophils # Man Lymphocytes # (Manual) Monocytes # (Manual) APTT ABG pH 7.508 H POC ABG pCO2 POC ABG pO2 139.8 H ABG pO2 ABG HCO3 ABG O2 Saturation ABG Base Excess ABG Hemoglobin 8.2 L ABG Oxyhemoglobin 98.3 H ABG Sodium 129.8 L ABG Potassium ABG Chloride 96.0 L ABG Glucose 162 H Oxyhemoglobin Carboxyhemoglobin Sodium Potassium Chloride Carbon Dioxide BUN Creatinine Glucose POC Glucose 155 H 140 H Calcium Phosphorus ALT Troponin T Total Protein Albumin Triglycerides HDL Cholesterol TSH Arterial Blood Glucose 162 H Crossmatch 08/20/21 08/20/21 08/20/21 06:08 06:08 17:43 WBC RBC 2.90 L Hgb 7.9 L Hct 23.6 L MCH 27 L RDW 18.6 H Plt Count Lymph % (Auto) Wilson % (Auto) Lymph # (Auto) Seg Neutrophils % Seg Neuts % (Manual) Lymphocytes % (Manual) Monocytes % (Manual) Eosinophils % (Manual) Basophils % (Manual) Seg Neutrophils # Seg Neutrophils # Man Lymphocytes # (Manual) Monocytes # (Manual) APTT ABG pH POC ABG pCO2 POC ABG pO2 ABG pO2 ABG HCO3 ABG O2 Saturation ABG Base Excess ABG Hemoglobin ABG Oxyhemoglobin ABG Sodium ABG Potassium ABG Chloride ABG Glucose Oxyhemoglobin Carboxyhemoglobin Sodium 133 L Potassium Chloride 93.9 L Carbon Dioxide BUN 31 H Creatinine 3.3 H Glucose 148 H POC Glucose 157 H Calcium Phosphorus ALT Troponin T Total Protein Albumin Triglycerides 433 H HDL Cholesterol TSH Arterial Blood Glucose Crossmatch 08/21/21 08/21/21 08/21/21 00:21 05:12 08:15 WBC RBC Hgb Hct MCH RDW Plt Count Lymph % (Auto) Wilson % (Auto) Lymph # (Auto) Seg Neutrophils % Seg Neuts % (Manual) Lymphocytes % (Manual) Monocytes % (Manual) Eosinophils % (Manual) Basophils % (Manual) Seg Neutrophils # Seg Neutrophils # Man Lymphocytes # (Manual) Monocytes # (Manual) APTT ABG pH POC ABG pCO2 POC ABG pO2 ABG pO2 ABG HCO3 ABG O2 Saturation ABG Base Excess ABG Hemoglobin ABG Oxyhemoglobin ABG Sodium ABG Potassium ABG Chloride ABG Glucose Oxyhemoglobin Carboxyhemoglobin Sodium 134 L Potassium Chloride 94.9 L Carbon Dioxide BUN 42 H Creatinine 4.0 H Glucose 208 H POC Glucose 153 H 139 H Calcium Phosphorus ALT Troponin T Total Protein Albumin Triglycerides HDL Cholesterol TSH Arterial Blood Glucose Crossmatch 08/21/21 08/21/21 08/21/21 08:15 08:18 11:34 WBC RBC 2.90 L Hgb 7.7 L Hct 23.5 L MCH 27 L RDW 18.9 H Plt Count Lymph % (Auto) Wilson % (Auto) Lymph # (Auto) Seg Neutrophils % Seg Neuts % (Manual) Lymphocytes % (Manual) Monocytes % (Manual) Eosinophils % (Manual) Basophils % (Manual) Seg Neutrophils # Seg Neutrophils # Man Lymphocytes # (Manual) Monocytes # (Manual) APTT ABG pH POC ABG pCO2 POC ABG pO2 ABG pO2 ABG HCO3 ABG O2 Saturation ABG Base Excess ABG Hemoglobin ABG Oxyhemoglobin ABG Sodium ABG Potassium ABG Chloride ABG Glucose Oxyhemoglobin Carboxyhemoglobin Sodium Potassium Chloride Carbon Dioxide BUN Creatinine Glucose POC Glucose 187 H Calcium Phosphorus ALT Troponin T Total Protein 6.0 L Albumin 2.6 L Triglycerides HDL Cholesterol TSH Arterial Blood Glucose Crossmatch 08/21/21 08/21/21 08/22/21 15:55 23:16 05:02 WBC RBC Hgb Hct MCH RDW Plt Count Lymph % (Auto) Wilson % (Auto) Lymph # (Auto) Seg Neutrophils % Seg Neuts % (Manual) Lymphocytes % (Manual) Monocytes % (Manual) Eosinophils % (Manual) Basophils % (Manual) Seg Neutrophils # Seg Neutrophils # Man Lymphocytes # (Manual) Monocytes # (Manual) APTT ABG pH POC ABG pCO2 POC ABG pO2 ABG pO2 ABG HCO3 ABG O2 Saturation ABG Base Excess ABG Hemoglobin ABG Oxyhemoglobin ABG Sodium ABG Potassium ABG Chloride ABG Glucose Oxyhemoglobin Carboxyhemoglobin Sodium Potassium Chloride Carbon Dioxide BUN Creatinine Glucose POC Glucose 173 H 178 H 145 H Calcium Phosphorus ALT Troponin T Total Protein Albumin Triglycerides HDL Cholesterol TSH Arterial Blood Glucose Crossmatch 08/22/21 08/22/21 08/22/21 11:44 16:02 23:50 WBC RBC Hgb Hct MCH RDW Plt Count Lymph % (Auto) [place] % (Auto) Lymph # (Auto) Seg Neutrophils % Seg Neuts % (Manual) Lymphocytes % (Manual) Monocytes % (Manual) Eosinophils % (Manual) Basophils % (Manual) Seg Neutrophils # Seg Neutrophils # Man Lymphocytes # (Manual) Monocytes # (Manual) APTT ABG pH POC ABG pCO2 POC ABG pO2 ABG pO2 ABG HCO3 ABG O2 Saturation ABG Base Excess ABG Hemoglobin ABG Oxyhemoglobin ABG Sodium ABG Potassium ABG Chloride ABG Glucose Oxyhemoglobin Carboxyhemoglobin Sodium Potassium Chloride Carbon Dioxide BUN Creatinine Glucose POC Glucose 211 H 156 H 200 H Calcium Phosphorus ALT Troponin T Total Protein Albumin Triglycerides HDL Cholesterol TSH Arterial Blood Glucose Crossmatch 08/23/21 08/23/21 08/23/21 04:35 04:35 05:08 WBC 13.5 H RBC Hgb Hct MCH 26 L RDW 19.6 H Plt Count Lymph % (Auto) Wilson % (Auto) Lymph # (Auto) Seg Neutrophils % Seg Neuts % (Manual) Lymphocytes % (Manual) Monocytes % (Manual) Eosinophils % (Manual) Basophils % (Manual) Seg Neutrophils # Seg Neutrophils # Man Lymphocytes # (Manual) Monocytes # (Manual) APTT ABG pH POC ABG pCO2 POC ABG pO2 ABG pO2 ABG HCO3 ABG O2 Saturation ABG Base Excess ABG Hemoglobin ABG Oxyhemoglobin ABG Sodium ABG Potassium ABG Chloride ABG Glucose Oxyhemoglobin Carboxyhemoglobin Sodium 132 L Potassium Chloride 94.6 L Carbon Dioxide 21 L BUN 60 H Creatinine 4.3 H Glucose 174 H POC Glucose 154 H Calcium Phosphorus ALT Troponin T Total Protein Albumin Triglycerides HDL Cholesterol TSH Arterial Blood Glucose Crossmatch 08/23/21 12:00 WBC RBC Hgb Hct MCH RDW Plt Count Lymph % (Auto) [place] % (Auto) Lymph # (Auto) Seg Neutrophils % Seg Neuts % (Manual) Lymphocytes % (Manual) Monocytes % (Manual) Eosinophils % (Manual) Basophils % (Manual) Seg Neutrophils # Seg Neutrophils # Man Lymphocytes # (Manual) Monocytes # (Manual) APTT ABG pH POC ABG pCO2 POC ABG pO2 ABG pO2 ABG HCO3 ABG O2 Saturation ABG Base Excess ABG Hemoglobin ABG Oxyhemoglobin ABG Sodium ABG Potassium ABG Chloride ABG Glucose Oxyhemoglobin Carboxyhemoglobin Sodium Potassium Chloride Carbon Dioxide BUN Creatinine Glucose POC Glucose 172 H Calcium Phosphorus ALT Troponin T Total Protein Albumin Triglycerides HDL Cholesterol TSH Arterial Blood Glucose Crossmatch Allied health notes reviewed: nursing
--- NOTE | 2021-08-23 19:33 | Progress Note ---
Assessment and Plan Assessment and plan: This is 60-year-old female with ESRD on HD, recurrent AICD discharges, V. tach, cardiac arrest, anemia of chronic disease, CAD, systolic HF and HTN admitted for V. tach and severe hypokalemia Neuro: Sedated -s/p precedex -PRN ativan -seroquel increased -Avoid delirium -Per RN CAM ICU (+) -Reorientation as needed -CT head x2 with no acute findings CV: Recurrent V. tach storm, NSTEMI, h/o s/p AICD implantation, systolic heart failure, V. tach, HTN -Cardiology consulted, appreciate recommendations -S/p lidocaine and Cardene drip -Antihypertensive regimen: hydralazine, isosorbide, cozaar, metoprolol,clonidine (adjust as needed) -Currently n.p.o., as needed labetalol added -s/p Amiodarone drip-> Amio PO -Amiodarone IV started due to inability to take p.o. -Awaiting transfer to [place] -Continue Lipitor, Plavix, ASA Respiratory: Acute Hypoxemic Respiratory Failure -CCM consulted, appreciate recommendations -Intubated in the ED on 08/05 with a 6.50 ETT at 21 at the lips, extubated 08/14 with reintubation, self extubation 08/16 with reintubation and self extubated on 08/22 -Nasal cannula to room air during the day -BiPAP nightly -obtain CT neck w/ con per CCM -On hold as patient self extubated and seems stable -Will likely need ENT transfer to tertiary facility -VAP bundle -SPO2 monitoring -Continue steroids GI: Dysphagia -Removal of NG tube with self extubation on 08/22 -Failed bedside swallow evaluation today -ST evaluation ordered-> patient was too lethargic at time of visit, will reassess tomorrow -24 hours +1197 mL -HD today -PPI -BR: Senokot -BM 08/19 : ESRD on HD, hyponatremia, hypochloremia -Nephrology consulted, appreciate recommendations -HD per nephrology -MWF schedule -Avoid nephrotoxic medications -Renally dose medications -Strict intake and output ID: [id number] -Monitor WBC and fever curve -Follow-up blood culture x2 and sputum culture -NGTD Heme: Thrombocytosis, Acute on chronic anemia of chronic disease, leukocytosis -S/p 2 unit PRBC -Trend CBC -Transfuse for hemoglobin less than 7 -Epogen per nephrology -Resume DAPT per cards in setting of recent stent -Heparin subq -SCDs to bilateral LE while in bed -Leukocytosis possibly secondary to steroid use Endo: Hypoglycemia (resolved) -S/p D10 for hypoglycemia -Avoid hypoglycemia -Accu-Cheks every 4 Dispo: AWAITING TRANSFER TO [facility] since 08/06/2021 Critical care statement The high probability of a clinically significant sudden or life-threatening de terioration of the [cardio-respiratory system] and endocrine system required my full and direct attention, intervention and postoperative management. The aggregate critical care time was [60] minutes. The time is in addition to time spent performing reported procedures but includes the following: [x] 1: Data review and interpretation [x] 2: Patient assessment and monitoring of vital signs [x] 3: Documentation [x] 4: Medication orders and management Disposition Plan: Transfer to floor Total Time Spent with Patient (Minutes): 60 History Interval history: This is 60-year-old female with ESRD on HD, recurrent AICD discharges, systolic heart failure, V. tach, cardiac arrest, anemia, CAD and HTN who presents to the emergency department from her dialysis center on 08/05 for severe muscle spasms secondary to AICD discharges per patient. She also had questionable seizures in the dialysis center. Patient was started on amiodarone and lidocaine. Patient was intubated for airway protection in the emergency department and work-up also revealed severe hypokalemia. Patient was admitted to the hospital service with consult cardiology, nephrology and [facility]. 08/06/2021: Patient is sedated, Transfer to [facility] arranged 08/07: COVID-19 PCR negative. Patient received hemodialysis today. Off Cardene drip. Patient has been OG tube for p.o. BP medications. Thrombocytopenia persists therefore anticoagulation is held. Patient is leukopenia also. We will continue to trend CBC. Persistent hypoglycemia and D10 drip increased to 30 ml/hr. negative Covid test relayed to [facility]. 08/08: 1 unit prbc today, will start TF today. Still awaiting [facility] bed. 08/09: awaiting transfer to [facility]. TF nearly at goal so anticipate stopping dextrose IVF soon. Midline to be placed 08/10/2021: Received HD today. BP remains elevated therefore started on cardene gtt. Cardiology aware. No beds available yet. 08/11/2021: Cardene gtt infusing, CT head ordered as per nurse patient is not really responding (withdraw/ grimace to pain when off sedation/PERRL/intact cough/gag on PE). 08/12: ANGELINE overnight. Remains on the vent and sedated. On Amio gtt, A-pacing on the monitor, still hypertensive on cardene gtt, home antihypertensive was restarted. Plan for HD this am, hypernatremia too be corrected per Nephro. 08/13: Plan for SAT and SBT this am for possible extubation. Patient remains hypertensive on cardene gtt, clonidine added. 08/14: Patient s/p reintubation by anesthesia. Awake and alert following commands, not on any sedation. Remains hypertensive on amio and cardene gtt. D/w cardio plan to switch to PO Amio and to adjust antihypertensive therapy, hopefully can wean off cardene gtt. Plan to possible transfer patient to [facility] as a way of getting patient into the [facility] system for the needed ablation. Case management to arrange 08/15: ANGELINE overnight. Patient remains stable on the vent. Still with uncontrolled hypertension despite meds increased yesterday. Patient remains on cardene gt. Cardio added minoxidil, plan is still to wean off cardene gtt. Plan for HD today 08/16: Self-extubated and was reintubated overnight due to stridor. Now on low dose sedation, following commands. D/w CCM plan to do a cuff leak today and possible start patinet on IV steroids. Since this is X2 failed extubation pa tient might need to be Trached. Per Case management patient was denied for [facility], no HD beds available. Patient remains on [facility] transfer list for possible inpatient transfer. 08/17: On the vent and om propofol gtt, RASS 0. Hypotensive overnight, will defer to Cardio for possible BP meds adjustment. Pending transfer to [facility]. 08/18: ANGELINE overnight. While awake on propofol gtt, following commands. Tolerated PST yesterday [id number]. Daily PST as tolerated. Pending transfer to [facility] 08/19: no cuff leak noted, may need neck imaging later this week. HD today with removal of 2.5 L. Midline ordered. [place] positional 08/20: Blood pressure medications adjusted due to hypotension, leak test not completed yet. No acute events reported overnight. Precedex drip initiated due to elevated triglycerides and propofol discontinued. 08/21: Patient remains soft with her blood pressures and antihypertensive regimen adjusted again. No cuff leak noted again despite getting FFP yesterday. Remains on Precedex. Started on Seroquel. Will have routine ECG tomorrow. 08/22: RN states that doses of hypertensive regimen have been withheld due to hypotension which has been medicated to cardiology. However per documentation as patient was hypotensive with SBP of 90s for approximately [address] neck completed, CT neck with contrast will be obtained as she is a [facility] HD schedule and cleared with Nephro. Still awaiting transfer to [place]. 08/23: Patient will be transferred to the floor, Precedex weaned off. Failed bedside swallow eval and ST eval ordered but patient was drowsy when they came to assess. Amiodarone drip reinitiated by cardiology due to inability to take p.o. amiodarone. Added as needed labetalol since patient is n.p.o. Hospitalist Physical - Physical exam Narrative exam: General appearance: Present: no acute distress, other (Intubated and on sedation, RASS 0 ) - EENT Eyes: Present: PERRL, EOM intact - Neck Neck: Present: supple, normal ROM - Respiratory Respiratory effort: normal Respiratory: bilateral: CTA - Cardiovascular Rhythm: regular Heart Sounds: Present: S1 & S2. Absent: systolic murmur, diastolic murmur - Extremities Extremities: no ischemia, pulses intact, pulses symmetrical, No edema, normal temperature, normal color Peripheral Pulses: within normal limits - Abdominal General gastrointestinal: soft, non-tender, non-distended, normal bowel sounds - Integumentary Integumentary: Present: warm, dry - Psychiatric Psychiatric: cooperative - Neurologic Neurologic: CNII-XII intact - Allied Health Allied health notes reviewed: nursing, RT, social work - Constitutional Vitals: Temp Pulse Resp BP Pulse Ox 98.8 F 70 10 L 171/64 100 08/23/21 16:19 08/23/21 19:00 08/23/21 19:00 08/23/21 19:00 08/23/21 19:00 General appearance: Present: no acute distress, other (Intubated and on sedation, RASS 0 ) HEART Score - HEART Score Age: 45-65 Risk factors: > 3 risk factors or hx of atherosclerotic disease Troponin: Troponin T 0.183 ng/mL (0.00-0.029) H* D 08/05/21 18:56 Troponin: 1-3x normal limit - Critical Actions Critical Actions: 4-6 pts:12-16.6% risk of adverse cardiac event. Should be admitted Results - Labs CBC & Chem 7: 08/23/21 04:35 08/23/21 04:35 Labs: Laboratory Last Values WBC 13.5 K/mm3 (4.5-11.0) H 08/23/21 04:35 RBC 4.85 M/mm3 (3.65-5.03) 08/23/21 04:35 Hgb 12.5 gm/dl (10.1-14.3) D 08/23/21 04:35 Hct 40.0 % (30.3-42.9) D 08/23/21 04:35 MCV 82 fl (79-97) 08/23/21 04:35 MCH 26 pg (28-32) L 08/23/21 04:35 MCHC 31 % (30-34) 08/23/21 04:35 RDW 19.6 % (13.2-15.2) H 08/23/21 04:35 Plt Count 270 K/mm3 (140-440) 08/23/21 04:35 Lymph % (Auto) Optimization Analyst 08/07/21 04:00 [place] % (Auto) Optimization Analyst 08/11/21 04:00 Eos % (Auto) 2.2 % (0.0-4.3) 08/06/21 16:35 Baso % (Auto) Optimization Analyst 08/07/21 04:00 Lymph # (Auto) 0.8 K/mm3 (1.2-5.4) L 08/06/21 16:35 [place] # (Auto) 0.7 K/mm3 (0.0-0.8) 08/06/21 16:35 Eos # (Auto) 0.1 K/mm3 (0.0-0.4) 08/06/21 16:35 Baso # (Auto) 0.1 K/mm3 (0.0-0.1) 08/06/21 16:35 Add Manual Diff Complete 08/11/21 04:00 Total Counted 100 08/11/21 04:00 Seg Neutrophils % Optimization Analyst 08/07/21 04:00 Seg Neuts % (Manual) 76.0 % (40.0-70.0) H 08/11/21 04:00 Band Neutrophils % 2.0 % 08/11/21 04:00 Lymphocytes % (Manual) 8.0 % (13.4-35.0) L 08/11/21 04:00 Reactive Lymphs % (Man) 5.0 % 08/07/21 04:00 Monocytes % (Manual) 13.0 % (0.0-7.3) H 08/11/21 04:00 Eosinophils % (Manual) 1.0 % (0.0-4.3) 08/10/21 04:00 Basophils % (Manual) 4.0 % (0.0-1.8) H 08/07/21 04:00 Metamyelocytes % 1.0 % 08/11/21 04:00 Nucleated RBC % Not Reportable 08/11/21 04:00 Seg Neutrophils # 2.6 K/mm3 (1.8-7.7) 08/06/21 16:35 Seg Neutrophils # Man 5.2 K/mm3 (1.8-7.7) 08/11/21 04:00 Band Neutrophils # 0.1 K/mm3 08/11/21 04:00 Lymphocytes # (Manual) 0.6 K/mm3 (1.2-5.4) L 08/11/21 04:00 Abs React Lymphs (Man) 0.0 K/mm3 08/11/21 04:00 Monocytes # (Manual) 0.9 K/mm3 (0.0-0.8) H 08/11/21 04:00 Eosinophils # (Manual) 0.0 K/mm3 (0.0-0.4) 08/11/21 04:00 Basophils # (Manual) 0.0 K/mm3 (0.0-0.1) 08/11/21 04:00 Metamyelocytes # 0.1 K/mm3 08/11/21 04:00 Myelocytes # 0.0 K/mm3 08/11/21 04:00 Promyelocytes # 0.0 K/mm3 08/11/21 04:00 Blast Cells # 0.0 K/mm3 08/11/21 04:00 WBC Morphology Not Reportable 08/11/21 04:00 WBC Morphology TNR 08/11/21 04:00 Hypersegmented Neuts Not Reportable 08/11/21 04:00 Hyposegmented Neuts Not Reportable 08/11/21 04:00 Hypogranular Neuts Not Reportable 08/11/21 04:00 Smudge Cells Not Reportable 08/11/21 04:00 Toxic Granulation Not Reportable 08/11/21 04:00 Toxic Vacuolation Not Reportable 08/11/21 04:00 Dohle Bodies Not Reportable 08/11/21 04:00 Pelger-Huet Anomaly Not Reportable 08/11/21 04:00 Claudio Rods Not Reportable 08/11/21 04:00 Platelet Estimate Consistent w auto 08/11/21 04:00 Clumped Platelets Not Reportable 08/11/21 04:00 Plt Clumps, EDTA Not Reportable 08/11/21 04:00 Large Platelets Not Reportable 08/11/21 04:00 Giant Platelets Not Reportable 08/11/21 04:00 Platelet Satelliting Not Reportable 08/11/21 04:00 Plt Morphology Comment Not Reportable 08/11/21 04:00 RBC Morphology Not Reportable 08/11/21 04:00 Dimorphic RBCs Not Reportable 08/11/21 04:00 Polychromasia Not Reportable 08/11/21 04:00 Hypochromasia Few 08/11/21 04:00 Poikilocytosis Not Reportable 08/11/21 04:00 Anisocytosis Not Reportable 08/11/21 04:00 Microcytosis Not Reportable 08/11/21 04:00 Macrocytosis Not Reportable 08/11/21 04:00 Spherocytes Not Reportable 08/11/21 04:00 Pappenheimer Bodies Not Reportable 08/11/21 04:00 Sickle Cells Not Reportable 08/11/21 04:00 Target Cells Few 08/11/21 04:00 Tear Drop Cells Not Reportable 08/11/21 04:00 Ovalocytes Not Reportable 08/11/21 04:00 Helmet Cells Not Reportable 08/11/21 04:00 [place] Bodies Not Reportable 08/11/21 04:00 [place] Rings Not Reportable 08/11/21 04:00 [place] Cells Not Reportable 08/11/21 04:00 Bite Cells Not Reportable 08/11/21 04:00 Crenated Cell Not Reportable 08/11/21 04:00 Elliptocytes Not Reportable 08/11/21 04:00 Acanthocytes (Spur) Not Reportable 08/11/21 04:00 Rouleaux Not Reportable 08/11/21 04:00 Hemoglobin C Crystals Not Reportable 08/11/21 04:00 Schistocytes Not Reportable 08/11/21 04:00 Malaria parasites Not Reportable 08/11/21 04:00 Aleks Bodies Not Reportable 08/11/21 04:00 Hem Pathologist Commnt No 08/11/21 04:00 PT 14.2 Sec. (12.2-14.9) 08/06/21 16:35 INR 0.99 (0.87-1.13) 08/06/21 16:35 APTT 37.1 Sec. (24.2-36.6) H 08/06/21 07:26 ABG pH 7.508 (7.320-7.450) H 08/20/21 04:25 POC ABG pCO2 35.1 mmHg (32.0-48.0) 08/20/21 04:25 ABG pCO2 41.2 mm Hg 08/09/21 04:30 POC ABG pO2 139.8 mmHg (83-108) H 08/20/21 04:25 ABG pO2 91.5 mm Hg (80.0-90.0) H 08/09/21 04:30 POC ABG HCO3 27.3 08/20/21 04:25 ABG HCO3 26.6 mmol/L (20.0-26.0) H 08/09/21 04:30 ABG O2 Saturation 99.1 (0-100) 08/20/21 04:25 ABG O2 Content 12.3 (0.0-44) 08/09/21 04:30 POC ABG Base Excess 4.0 08/20/21 04:25 ABG Base Excess 2.0 mmol/L (-2.0-3.0) 08/09/21 04:30 ABG Hemoglobin 8.2 (12.0-17.5) L 08/20/21 04:25 ABG Oxyhemoglobin 98.3 (94-98) H 08/20/21 04:25 ABG Carboxyhemoglobin 1.4 % (0.0-5.0) 08/09/21 04:30 ABG Methemoglobin 0.3 (0.0-1.5) 08/20/21 04:25 ABG Sodium 129.8 mmol/L (136.0-145.0) L 08/20/21 04:25 ABG Potassium 3.7 mmol/L (3.40-4.50) 08/20/21 04:25 ABG Chloride 96.0 mmol/L (98-107) L 08/20/21 04:25 ABG Glucose 162 mg/dL (65-95) H 08/20/21 04:25 Oxyhemoglobin 95.4 % (95.0-99.0) 08/09/21 04:30 Carboxyhemoglobin 0.5 (0.5-1.5) 08/20/21 04:25 FiO2 25 % 08/09/21 04:30 FiO2 % 30.0 08/20/21 04:25 Sodium 132 mmol/L (137-145) L 08/23/21 04:35 Potassium 4.9 mmol/L (3.6-5.0) 08/23/21 04:35 Chloride 94.6 mmol/L (98-107) L 08/23/21 04:35 Carbon Dioxide 21 mmol/L (22-30) L 08/23/21 04:35 Anion Gap 21 mmol/L 08/23/21 04:35 BUN 60 mg/dL (7-17) H 08/23/21 04:35 Creatinine 4.3 mg/dL (0.6-1.2) H 08/23/21 04:35 Estimated GFR 13 ml/min 08/23/21 04:35 BUN/Creatinine Ratio 14 % 08/23/21 04:35 Glucose 174 mg/dL (65-100) H 08/23/21 04:35 POC Glucose 181 mg/dL (70-105) H 08/23/21 17:13 Calcium 9.0 mg/dL (8.4-10.2) 08/23/21 04:35 Phosphorus 4.50 mg/dL (2.5-4.5) 08/23/21 04:35 Magnesium 2.00 mg/dL (1.7-2.3) 08/23/21 04:35 Total Bilirubin 0.30 mg/dL (0.1-1.2) 08/21/21 08:18 Direct Bilirubin < 0.2 mg/dL (0-0.2) 08/21/21 08:18 Indirect Bilirubin 0.1 mg/dL 08/21/21 08:18 AST 15 units/L (5-40) 08/21/21 08:18 ALT 14 units/L (7-56) 08/21/21 08:18 Alkaline Phosphatase 98 units/L (35-129) 08/21/21 08:18 Troponin T 0.183 ng/mL (0.00-0.029) H* D 08/05/21 18:56 Total Protein 6.0 g/dL (6.3-8.2) L 08/21/21 08:18 Albumin 2.6 g/dL (3.9-5) L 08/21/21 08:18 Albumin/Globulin Ratio 0.8 % 08/21/21 08:18 Triglycerides 433 mg/dL (2-149) H 08/20/21 06:08 Cholesterol 170 mg/dL (50-199) 08/05/21 15:55 LDL Cholesterol Direct 106 mg/dL (50-130) 08/05/21 15:55 HDL Cholesterol 32 mg/dL (40-59) L 08/05/21 15:55 Cholesterol/HDL Ratio 5.31 % 08/05/21 15:55 TSH 7.070 mlU/mL (0.270-4.200) H 08/07/21 13:30 Arterial Blood Glucose 162 mg/dL (65-95) H 08/20/21 04:25 Arterial Blood Ionized Calcium 4.8 mg/dL (4.6-5.3) 08/15/21 05:22 Coronavirus (PCR) Negative (Negative) 08/23/21 08:30 Hepatitis A IgM Ab Non-reactive (NonReactive) 08/08/21 04:26 Hep Bs Antigen Nonreactive (Negative) 08/08/21 04:26 Hep B Core IgM Ab Non-reactive (NonReactive) 08/08/21 04:26 Hepatitis C Antibody Non-reactive (NonReactive) 08/08/21 04:26 Blood Type O POSITIVE 08/20/21 15:29 Antibody Screen TNR 08/20/21 15:29 Crossmatch See Detail 08/06/21 05:30 Active Medications - Current Medications Current Medications: Generic Name Dose Route Start Last Admin Trade Name Freq PRN Reason Stop Dose Admin Acetaminophen 650 mg 08/06/21 16:30 08/06/21 16:30 Acetaminophen 650 Mg Rect Supp ME 650 mg Q6H PRN Administration Pain, Mild (1-3) Albuterol 2.5 mg 08/05/21 20:59 Albuterol 2.5 Mg/3 Ml Nebu IH Q4HRT PRN Shortness Of Breath Aspirin 81 mg 08/07/21 10:00 08/23/21 09:03 Aspirin 81 Mg Tab Chew PO Not Given QDAY [facility] Atorvastatin Calcium 80 mg 08/05/21 22:00 08/22/21 22:08 Atorvastatin 40 Mg Tab PO Not Given QHS [facility] Clopidogrel Bisulfate 75 mg 08/10/21 10:00 08/23/21 09:04 Clopidogrel 75 Mg Tab PO Not Given QDAY [facility] Dextrose 50 ml 08/17/21 18:00 Dextrose 50% In Water (25gm) 50 Ml Syringe IV Q30MIN PRN Hypoglycemia Protocol Famotidine 10 mg 08/09/21 22:00 08/23/21 09:04 Famotidine 10 Mg Tab PO Not Given BID [facility] Fentanyl 50 mcg 08/16/21 11:48 08/22/21 05:29 Fentanyl 100 Mcg/2 Ml Inj IV 50 mcg Q2H PRN Administration Pain, Moderate (4-6) Haloperidol Lactate 2.5 mg 08/23/21 13:00 08/23/21 16:59 Haloperidol Lactate 5 Mg/1 Ml Inj IV 2.5 mg Q6HR JODI Administration Heparin Sodium (Porcine) 5,000 unit 08/11/21 10:00 08/23/21 09:45 Heparin 5,000 Unit/1 Ml Vial SUB-Q 5,000 unit Q12HR JODI Administration Hydralazine HCl 10 mg 08/06/21 04:21 08/23/21 14:02 Hydralazine 20 Mg/1 Ml Inj IV 10 mg Q6HR PRN Administration Hypertension Hydralazine HCl 50 mg 08/21/21 14:00 08/23/21 14:30 Hydralazine 25 Mg Tab PO Not Given Q8HR [facility] Hydrophilic Ointment 1 applic 08/05/21 17:25 Lip Therapy Vaseline TP Q2HR PRN Dry Lips Sodium Chloride 100 mls @ 999 mls/hr 08/14/21 17:06 Nacl 0.9% IV GLENDY PRN Hypotension Dexmedetomidine HCl 400 mcg/ 104 mls @ 3.341 mls/hr 08/20/21 10:00 08/23/21 17:00 Sodium Chloride IV 0 mcg/kg/hr TITRATE JODI 0 mls/hr Titration Protocol 0.2 MCG/KG/HR Amiodarone HCl 360 mg/ 200 mls @ 16.667 mls/hr 08/23/21 12:00 08/23/21 12:53 Dextrose IV 0.5 mg/min DIRECT JODI 16.667 mls/hr Administration Protocol 0.5 MG/MIN Nicardipine HCl 50 mg/ Sodium 250 mls @ 25 mls/hr 08/23/21 13:00 Chloride IV TITR JODI Protocol 5 MG/HR Insulin Human Regular 0 units 08/17/21 18:00 08/23/21 17:58 Insulin Regular, Human 100 Units/1 Ml SUB-Q 1 units Q6H [facility] Administration Protocol Isosorbide Dinitrate 20 mg 08/11/21 14:00 08/23/21 14:30 Isosorbide Dinitrate 20 Mg Tab PO Not Given Q8HR [facility] Lorazepam 1 mg 08/23/21 12:14 08/23/21 14:03 Lorazepam 2 Mg/Ml Vial IV 1 mg Q4H PRN Administration Agitation Losartan Potassium 100 mg 08/12/21 10:00 08/23/21 09:03 Losartan 25 Mg Tab PO Not Given DAILY [facility] Methylprednisolone Sodium Succinate 40 mg 08/16/21 13:00 08/23/21 16:59 Methylprednisolone Sod Succinate 40 Mg/1 Ml Inj IV 40 mg Q6HR JODI Administration Metoclopramide HCl 5 mg 08/05/21 21:03 Metoclopramide 10 Mg/2 Ml Inj IV Q6H PRN Nausea And Vomiting Metoprolol Tartrate 100 mg 08/12/21 12:00 08/23/21 09:04 Metoprolol Tartrate 50 Mg Tab PO Not Given BID [facility] Multi-Ingred Cream/Lotion/Oil/Oint 1 applic 08/05/21 17:25 Mineral Oil/Petrolatum, White Ophth Oint 3.5 Gm OU Q4HR PRN Dry Eye(s) Ondansetron HCl 4 mg 08/05/21 21:03 Ondansetron 4 Mg/2 Ml Inj IV Q8H PRN Nausea And Vomiting Oxycodone/Acetaminophen 1 tab 08/05/21 21:03 08/22/21 01:52 Oxycodone /Acetaminophen 5-325mg Tab PO 1 tab Q6H PRN Administration Pain, Moderate (4-6) Quetiapine Fumarate 50 mg 08/23/21 10:00 08/23/21 12:05 Quetiapine 25 Mg Tab PO Not Given BID JODI Senna 8.8 mg 08/07/21 13:00 08/23/21 09:04 Sennosides Oral Liqd 8.8 Mg/5 Ml Oral Liqd FEEDTUBE Not Given BID JODI Sodium Chloride 10 ml 08/05/21 22:00 08/23/21 09:01 Sodium Chloride 0.9% 10 Ml Flush Syringe IV 10 ml BID JODI Administration Sodium Chloride 10 ml 08/05/21 21:03 Sodium Chloride 0.9% 10 Ml Flush Syringe IV PRN PRN LINE FLUSH Nutrition/Malnutrition Assess - Dietary Evaluation Nutrition/Malnutrition Findings: Nutrition Notes Start: 08/07/21 09:12 Freq: Status: Active Protocol: Document 08/19/21 14:47 KALA (Rec: 08/19/21 15:06 KALA [id number]) Nutrition Notes Initial or Follow up Brief Note Current Diet TF-Nepro w/CARBSTEADY @ 32 ml/ hr (since L 08/16). Height 5 ft 2 in Weight 64.25 kg [place] Body Weight (kg) 50.00 BMI 25.9 Weight change and time frame No body weight change reported . Weight Status Overweight Subjective/Other Information RD consult for routine F/U on TF continuation assessment. Pt reintubated and TF continued at the time of conversation with RN. Still waiting for placement at [facility]. Percent of energy/protein needs met: Prescribed Nepro w/CARBSTEADY @ 32 ml/hr will provide for energy/protein needs (1,403 Kcal/63 g) 100% Kcal; 82% AA, during LOS. #1 Nutrition Diagnosis Inadequate oral intake Diagnosis Progress(for reassessment Continues documentation) Nutrition Intervention Nutrition Support: Continue Nepro w/CARBSTEADY @ 32 ml/hr. Flush: 50 ml water Q 4 hr until hyponatremia resolves, then 150 ml Q 4 hr. % RDI: 100% Kcal; 82% AA. Goal #1 Provide at least 75% of energy /protein needs through Enteral Feeding during LOS. Follow-Up By: 08/26/21 Additional Comments Continue monitoring TF tolerance, and BM.
[2021-08-23] MEDS ORDERED: ZIPRASIDONE MESYLATE 20 MG VIAL IM ONE (22:29)
[2021-08-23] MEDS ORDERED: WATER FOR INJ Sterile (PF) 10 ML ONE (22:51)
[2021-08-24] MEDS: INSULIN REGULAR, HUMAN 100 UNITS/1 ML SUB-Q SCH ×4 (00:23→17:53)
[2021-08-24] MEDS: methylPREDNISolone Sod Succinate 40 MG/1 ML INJ IV SCH ×3 (05:11→17:43)
[2021-08-24] MEDS: HALOPERIDOL LACTATE 5 MG/1 ML INJ IV SCH ×3 (05:11→17:43)
[2021-08-24] MEDS: ISOSORBIDE DINITRATE 20 MG TAB PO SCH ×4 (05:12→21:24)
[2021-08-24] MEDS: hydrALAZINE 25 MG TAB PO SCH ×4 (05:12→21:24)
[2021-08-24 06:12] LABS: Hematocrit 28.2 % (30.3-42.9); Hemoglobin 8.8 gm/dl (10.1-14.3); Mean Corpuscular HGB Conc 31 % (30-34); Mean Corpuscular Volume 82 fl (79-97); Platelet Count 468 K/mm3 (140-440); Red Blood Count 3.44 M/mm3 (3.65-5.03); Red Cell Distribution Width 19.9 % (13.2-15.2)
[2021-08-24 06:21] LABS: Calcium 9.4 mg/dL (8.4-10.2)
--- NOTE | 2021-08-24 08:57 | Progress Note ---
Assessment and Plan 60 y/o female with known VT in the past, systolic heart failure with BIV AICD admitted with recurrent VT and electrolyte abnormality 08/24/21: needs ENT eval once transferred to [facility]. Suggest changing steroids to 40q8 starting tomorrow. Keep bipap QHS and PRN for now. HD and blood pressure control per renal 08/23/21: Given stability over the last 24 hours, will give trial of transfer to floor. Patient failed swallow eval so can only have IV meds for rate control and BP. Continue NPO status. Continue nocturnal NIV. Guarded prognosis. Needs ENT and EP when she goes to [facility]. 08/22/21: Not a candidate for extubation until evaluated by ENT and they review images. ENT not available at this hospital. Now she needs transfer more than ever as she has two issues that we are not able to manage currently. Continue supportive care. Daily PSV trials off sedation. Not sure that steroids are helping, will likely stop tomorrow after discussing on rounds. 08/21/21: No leak on test today. Will do neck CT noncontrast to look for extrisinc issues or potential swelling. Will consult surgery for trach and peg. Await bed at [facility]. Guarded prognosis. 08/20/21: Leak test today. If not audible leak, then will give 2 of FFP. Daily leak test should be performed. may need trach if FFP does not work. No runs of VT stable. If bed becomes available at [facility] will transfer. 08/19/21: Continue IV steroids until leak test today. If leak is present will likely stop steroids. Will consider extubation yet again however if fails this time will need trach. Continue rate control therapy. Guarded prognosis. 08/16/21: Still no beds at [facility]. Will do a leak test this afternoon. If no leak, then will start IV steroid therapy. Patient was only intubated for airway protection to help with catecholamine storm associated with VT storm. No prior lung disease. The multiple intubation may have caused some scarring in the trachea but right now this is not known. Continue supportive measures but may end up needing trach. 08/15/21: Will discuss with CM if any further news on LTACH acceptance. Attempt PSV trials today. BP still elevated and still on Cardene despite increase in med therapy. Will discuss with cards, and renal, and pharm on rounds. 08/14/21: Given no ICU beds at [facility], will attempt to transfer to [facility] with hopes that patient can get ablation and then be transferred back over for further vent weaning. 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 Agree with cards increasing therapy for HTN. Will attempt to wean Cardene 08/13/21: Will start Clonidine 0.1 TID given her persistent need for Cardene drip. Will extubate today and transfer to tele floor. Hoping this will help the patient get a bed faster at [facility]. Rate control per cards. 08/12/21: Will discontinue cardene while on HD as goal is to pull 3 liters. Will speak with [facility] and ask them to call [facility] to see if they have a time frame. Continue supportive measures. Remains on Amio Drip. 08/08/21: Continue supportive measures. Follow up any new cardiac recs. 08/07/21: Await transfer to [facility], continue supportive measures Follow up cards recs most likely needs ablation at [facility] Continue amio drip per cards CCt 31 minutes. Subjective Date of service: 08/24/21 Principal diagnosis: Recurrent VT Interval history: Transferred to Tele. No acute issues overnight. Only wore bipap for about 4 hours. Objective Vital Signs - 12hr 08/23/21 08/23/21 08/23/21 21:00 21:16 21:30 Temperature Pulse Rate 70 70 Pulse Rate [ From Monitor] Respiratory 10 L 13 Rate Blood Pressure 177/143 179/69 165/65 O2 Sat by Pulse 100 100 100 Oximetry 08/23/21 08/23/21 08/23/21 21:45 21:59 22:00 Temperature Pulse Rate 70 70 70 Pulse Rate [ From Monitor] Respiratory 11 L 12 13 Rate Blood Pressure 166/53 166/53 172/60 O2 Sat by Pulse 100 100 100 Oximetry 08/23/21 08/23/21 08/23/21 22:16 22:30 22:46 Temperature Pulse Rate 70 70 Pulse Rate [ From Monitor] Respiratory Rate Blood Pressure 180/68 185/62 185/62 O2 Sat by Pulse Oximetry 08/23/21 08/23/21 08/23/21 23:00 23:14 23:16 Temperature Pulse Rate 70 70 70 Pulse Rate [ From Monitor] Respiratory 11 L 21 11 L Rate Blood Pressure 171/60 185/62 185/62 O2 Sat by Pulse 97 96 97 Oximetry 08/23/21 08/23/21 08/24/21 23:30 23:46 00:00 Temperature 98 F Pulse Rate 70 74 70 Pulse Rate [ 70 From Monitor] Respiratory 16 18 20 Rate Blood Pressure 181/58 194/63 164/68 O2 Sat by Pulse 96 96 97 Oximetry 08/24/21 08/24/21 08/24/21 02:19 03:12 04:00 Temperature 99.6 F Pulse Rate 70 70 Pulse Rate [ 70 From Monitor] Respiratory 20 20 Rate Blood Pressure 168/72 O2 Sat by Pulse 98 98 100 Oximetry 08/24/21 08:10 Temperature Pulse Rate Pulse Rate [ From Monitor] Respiratory Rate Blood Pressure O2 Sat by Pulse 94 Oximetry Constitutional: alert, other (intubated ) Eyes: non-icteric ENT: other (orally intubated, lips swollen) Neck: supple Effort: normal Ascultation: Bilateral: clear Percussion: Bilateral: not dull Cardiovascular: regular rate and rhythm (no mrg) Gastrointestinal: normoactive bowel sounds, soft, non-tender, non-distended Integumentary: normal Extremities: no cyanosis, no edema, pink and warm Neurologic: other (follows commands) Psychiatric: other (unable to assess) CBC and BMP: 08/24/21 05:20 08/24/21 05:20 ABG, PT/INR, D-dimer: ABG ABG pH 7.508 (7.320-7.450) H 08/20/21 04:25 POC ABG pCO2 35.1 mmHg (32.0-48.0) 08/20/21 04:25 ABG pCO2 41.2 mm Hg 08/09/21 04:30 POC ABG pO2 139.8 mmHg (83-108) H 08/20/21 04:25 ABG pO2 91.5 mm Hg (80.0-90.0) H 08/09/21 04:30 POC ABG HCO3 27.3 08/20/21 04:25 ABG O2 Saturation 99.1 (0-100) 08/20/21 04:25 PT/INR, D-dimer PT 14.2 Sec. (12.2-14.9) 08/06/21 16:35 INR 0.99 (0.87-1.13) 08/06/21 16:35 Abnormal lab findings: Abnormal Labs 08/05/21 08/05/21 08/05/21 15:55 15:55 18:50 WBC 3.7 L RBC 2.98 L Hgb 7.5 L Hct 23.8 L MCH 25 L RDW 18.9 H Plt Count 134 L Lymph % (Auto) [place] % (Auto) Lymph # (Auto) Seg Neutrophils % Seg Neuts % (Manual) Lymphocytes % (Manual) Monocytes % (Manual) 18.0 H Eosinophils % (Manual) Basophils % (Manual) 2.0 H Seg Neutrophils # Seg Neutrophils # Man Lymphocytes # (Manual) 0.9 L Monocytes # (Manual) APTT ABG pH 7.523 H POC ABG pCO2 POC ABG pO2 ABG pO2 47.1 L ABG HCO3 34.6 H ABG O2 Saturation 85.4 L ABG Base Excess 10.8 H ABG Hemoglobin 7.3 L ABG Oxyhemoglobin ABG Sodium ABG Potassium ABG Chloride ABG Glucose Oxyhemoglobin 83.6 L Carboxyhemoglobin Sodium Potassium 2.7 L* Chloride 93.8 L Carbon Dioxide 33 H BUN Creatinine 2.8 H Glucose 124 H POC Glucose Calcium 8.2 L Phosphorus ALT < 5 L Troponin T 0.126 H* Total Protein Albumin 3.5 L Triglycerides 202 H HDL Cholesterol 32 L TSH Arterial Blood Glucose Crossmatch 08/05/21 08/05/21 08/06/21 18:56 Unknown 04:20 WBC RBC Hgb Hct MCH RDW Plt Count Lymph % (Auto) [place] % (Auto) Lymph # (Auto) Seg Neutrophils % Seg Neuts % (Manual) Lymphocytes % (Manual) Monocytes % (Manual) Eosinophils % (Manual) Basophils % (Manual) Seg Neutrophils # Seg Neutrophils # Man Lymphocytes # (Manual) Monocytes # (Manual) APTT ABG pH 7.575 H 7.606 H* POC ABG pCO2 POC ABG pO2 ABG pO2 142.9 H 111.2 H ABG HCO3 33.2 H 33.6 H ABG O2 Saturation ABG Base Excess 10.4 H 11.2 H ABG Hemoglobin 6.6 L 6.8 L ABG Oxyhemoglobin ABG Sodium ABG Potassium ABG Chloride ABG Glucose Oxyhemoglobin Carboxyhemoglobin Sodium Potassium Chloride Carbon Dioxide BUN Creatinine Glucose POC Glucose Calcium Phosphorus ALT Troponin T 0.183 H* D Total Protein Albumin Triglycerides HDL Cholesterol TSH Arterial Blood Glucose Crossmatch 08/06/21 08/06/21 08/06/21 04:29 04:29 04:29 WBC 2.5 L RBC 2.70 L Hgb 6.8 L Hct 21.3 L MCH 25 L RDW 18.1 H Plt Count 126 L Lymph % (Auto) 45.0 H [place] % (Auto) 13.6 H Lymph # (Auto) 1.1 L Seg Neutrophils % 37.3 L Seg Neuts % (Manual) Lymphocytes % (Manual) Monocytes % (Manual) Eosinophils % (Manual) Basophils % (Manual) Seg Neutrophils # 0.9 L Seg Neutrophils # Man Lymphocytes # (Manual) Monocytes # (Manual) APTT 38.8 H ABG pH POC ABG pCO2 POC ABG pO2 ABG pO2 ABG HCO3 ABG O2 Saturation ABG Base Excess ABG Hemoglobin ABG Oxyhemoglobin ABG Sodium ABG Potassium ABG Chloride ABG Glucose Oxyhemoglobin Carboxyhemoglobin Sodium 136 L Potassium 3.0 L Chloride 92.6 L Carbon Dioxide 32 H BUN Creatinine 3.8 H Glucose POC Glucose Calcium Phosphorus ALT Troponin T Total Protein 5.8 L Albumin 3.1 L Triglycerides HDL Cholesterol TSH Arterial Blood Glucose Crossmatch 08/06/21 08/06/21 08/06/21 05:30 07:26 07:26 WBC RBC Hgb 7.0 L Hct 22.5 L MCH RDW Plt Count 127 L Lymph % (Auto) [place] % (Auto) Lymph # (Auto) Seg Neutrophils % Seg Neuts % (Manual) Lymphocytes % (Manual) Monocytes % (Manual) Eosinophils % (Manual) Basophils % (Manual) Seg Neutrophils # Seg Neutrophils # Man Lymphocytes # (Manual) Monocytes # (Manual) APTT 37.1 H ABG pH POC ABG pCO2 POC ABG pO2 ABG pO2 ABG HCO3 ABG O2 Saturation ABG Base Excess ABG Hemoglobin ABG Oxyhemoglobin ABG Sodium ABG Potassium ABG Chloride ABG Glucose Oxyhemoglobin Carboxyhemoglobin Sodium Potassium Chloride Carbon Dioxide BUN Creatinine Glucose POC Glucose Calcium Phosphorus ALT Troponin T Total Protein Albumin Triglycerides HDL Cholesterol TSH Arterial Blood Glucose Crossmatch See Detail 08/06/21 08/06/21 08/06/21 08:06 14:50 16:03 WBC RBC Hgb Hct MCH RDW Plt Count Lymph % (Auto) [place] % (Auto) Lymph # (Auto) Seg Neutrophils % Seg Neuts % (Manual) Lymphocytes % (Manual) Monocytes % (Manual) Eosinophils % (Manual) Basophils % (Manual) Seg Neutrophils # Seg Neutrophils # Man Lymphocytes # (Manual) Monocytes # (Manual) APTT ABG pH POC ABG pCO2 POC ABG pO2 ABG pO2 ABG HCO3 ABG O2 Saturation ABG Base Excess ABG Hemoglobin ABG Oxyhemoglobin ABG Sodium ABG Potassium ABG Chloride ABG Glucose Oxyhemoglobin Carboxyhemoglobin Sodium Potassium 3.1 L Chloride 92.4 L Carbon Dioxide 33 H BUN Creatinine 3.9 H Glucose POC Glucose 59 L 121 H Calcium Phosphorus ALT Troponin T Total Protein Albumin Triglycerides HDL Cholesterol TSH Arterial Blood Glucose Crossmatch 08/06/21 08/06/21 08/06/21 16:35 16:35 17:31 WBC 4.2 L RBC 3.27 L Hgb 8.5 L Hct 26.8 L MCH 26 L RDW 18.7 H Plt Count 124 L Lymph % (Auto) [place] % (Auto) 15.5 H Lymph # (Auto) 0.8 L Seg Neutrophils % Seg Neuts % (Manual) Lymphocytes % (Manual) Monocytes % (Manual) Eosinophils % (Manual) Basophils % (Manual) Seg Neutrophils # Seg Neutrophils # Man Lymphocytes # (Manual) Monocytes # (Manual) APTT ABG pH POC ABG pCO2 POC ABG pO2 ABG pO2 ABG HCO3 ABG O2 Saturation ABG Base Excess ABG Hemoglobin ABG Oxyhemoglobin ABG Sodium ABG Potassium ABG Chloride ABG Glucose Oxyhemoglobin Carboxyhemoglobin Sodium 133 L Potassium Chloride 93.2 L Carbon Dioxide BUN 21 H Creatinine 4.6 H Glucose POC Glucose 62 L Calcium 8.3 L Phosphorus ALT Troponin T Total Protein 6.2 L Albumin 3.2 L Triglycerides HDL Cholesterol TSH Arterial Blood Glucose Crossmatch 08/06/21 08/06/21 08/07/21 18:14 18:22 04:00 WBC 1.0 L* RBC 2.67 L Hgb 7.0 L Hct 21.8 L MCH 26 L RDW 18.7 H Plt Count 82 L Lymph % (Auto) [place] % (Auto) Lymph # (Auto) Seg Neutrophils % Seg Neuts % (Manual) 16.0 L Lymphocytes % (Manual) 60.0 H Monocytes % (Manual) Eosinophils % (Manual) 11.0 H Basophils % (Manual) 4.0 H Seg Neutrophils # Seg Neutrophils # Man 0.2 L Lymphocytes # (Manual) 0.6 L Monocytes # (Manual) APTT ABG pH 7.565 H POC ABG pCO2 POC ABG pO2 ABG pO2 113.3 H ABG HCO3 29.4 H ABG O2 Saturation ABG Base Excess 6.9 H ABG Hemoglobin 8.3 L ABG Oxyhemoglobin ABG Sodium ABG Potassium ABG Chloride ABG Glucose Oxyhemoglobin Carboxyhemoglobin Sodium Potassium Chloride Carbon Dioxide BUN Creatinine Glucose POC Glucose 148 H Calcium Phosphorus ALT Troponin T Total Protein Albumin Triglycerides HDL Cholesterol TSH Arterial Blood Glucose Crossmatch 08/07/21 08/07/21 08/07/21 04:00 04:25 08:30 WBC RBC Hgb Hct MCH RDW Plt Count Lymph % (Auto) [place] % (Auto) Lymph # (Auto) Seg Neutrophils % Seg Neuts % (Manual) Lymphocytes % (Manual) Monocytes % (Manual) Eosinophils % (Manual) Basophils % (Manual) Seg Neutrophils # Seg Neutrophils # Man Lymphocytes # (Manual) Monocytes # (Manual) APTT ABG pH 7.609 H* 7.479 H POC ABG pCO2 POC ABG pO2 ABG pO2 121.4 H 130.2 H ABG HCO3 28.5 H 30.3 H ABG O2 Saturation ABG Base Excess 7.2 H 6.2 H ABG Hemoglobin 10.7 L 8.1 L ABG Oxyhemoglobin ABG Sodium ABG Potassium ABG Chloride ABG Glucose Oxyhemoglobin Carboxyhemoglobin Sodium 133 L Potassium 3.2 L D Chloride 93.9 L Carbon Dioxide BUN 23 H Creatinine 4.3 H Glucose POC Glucose Calcium 8.1 L Phosphorus ALT Troponin T Total Protein Albumin Triglycerides HDL Cholesterol TSH Arterial Blood Glucose Crossmatch 08/07/21 08/07/21 08/07/21 13:18 13:30 15:51 WBC RBC Hgb Hct MCH RDW Plt Count Lymph % (Auto) [place] % (Auto) Lymph # (Auto) Seg Neutrophils % Seg Neuts % (Manual) Lymphocytes % (Manual) Monocytes % (Manual) Eosinophils % (Manual) Basophils % (Manual) Seg Neutrophils # Seg Neutrophils # Man Lymphocytes # (Manual) Monocytes # (Manual) APTT ABG pH POC ABG pCO2 POC ABG pO2 ABG pO2 ABG HCO3 ABG O2 Saturation ABG Base Excess ABG Hemoglobin ABG Oxyhemoglobin ABG Sodium ABG Potassium ABG Chloride ABG Glucose Oxyhemoglobin Carboxyhemoglobin Sodium Potassium Chloride Carbon Dioxide BUN Creatinine Glucose POC Glucose 67 L 58 L Calcium Phosphorus ALT Troponin T Total Protein Albumin Triglycerides HDL Cholesterol TSH 7.070 H Arterial Blood Glucose Crossmatch 08/08/21 08/08/21 08/08/21 04:19 04:26 04:26 WBC RBC Hgb 6.8 L Hct 21.6 L MCH RDW Plt Count 91 L Lymph % (Auto) [place] % (Auto) Lymph # (Auto) Seg Neutrophils % Seg Neuts % (Manual) Lymphocytes % (Manual) Monocytes % (Manual) Eosinophils % (Manual) Basophils % (Manual) Seg Neutrophils # Seg Neutrophils # Man Lymphocytes # (Manual) Monocytes # (Manual) APTT ABG pH 7.545 H POC ABG pCO2 POC ABG pO2 ABG pO2 136.1 H ABG HCO3 27.3 H ABG O2 Saturation ABG Base Excess 4.5 H ABG Hemoglobin 6.9 L ABG Oxyhemoglobin ABG Sodium ABG Potassium ABG Chloride ABG Glucose Oxyhemoglobin Carboxyhemoglobin Sodium 132 L Potassium Chloride 93.5 L Carbon Dioxide BUN Creatinine 3.7 H Glucose POC Glucose Calcium Phosphorus ALT Troponin T Total Protein Albumin Triglycerides HDL Cholesterol TSH Arterial Blood Glucose Crossmatch 08/08/21 08/08/21 08/08/21 09:45 12:23 18:51 WBC RBC Hgb Hct MCH RDW Plt Count Lymph % (Auto) [place] % (Auto) Lymph # (Auto) Seg Neutrophils % Seg Neuts % (Manual) Lymphocytes % (Manual) Monocytes % (Manual) Eosinophils % (Manual) Basophils % (Manual) Seg Neutrophils # Seg Neutrophils # Man Lymphocytes # (Manual) Monocytes # (Manual) APTT ABG pH 7.471 H POC ABG pCO2 POC ABG pO2 71.1 L ABG pO2 ABG HCO3 ABG O2 Saturation ABG Base Excess ABG Hemoglobin ABG Oxyhemoglobin ABG Sodium 128.9 L ABG Potassium ABG Chloride 95.0 L ABG Glucose 64 L Oxyhemoglobin Carboxyhemoglobin Sodium Potassium Chloride Carbon Dioxide BUN Creatinine Glucose POC Glucose 58 L 68 L Calcium Phosphorus ALT Troponin T Total Protein Albumin Triglycerides HDL Cholesterol TSH Arterial Blood Glucose 64 L Crossmatch 08/09/21 08/09/21 08/09/21 04:30 04:33 04:33 WBC 2.4 L RBC 3.16 L Hgb 8.3 L Hct 26.5 L MCH 26 L RDW 18.3 H Plt Count 113 L Lymph % (Auto) [place] % (Auto) Lymph # (Auto) Seg Neutrophils % Seg Neuts % (Manual) Lymphocytes % (Manual) Monocytes % (Manual) Eosinophils % (Manual) Basophils % (Manual) Seg Neutrophils # Seg Neutrophils # Man Lymphocytes # (Manual) Monocytes # (Manual) APTT ABG pH POC ABG pCO2 POC ABG pO2 ABG pO2 91.5 H ABG HCO3 26.6 H ABG O2 Saturation ABG Base Excess ABG Hemoglobin 9.0 L ABG Oxyhemoglobin ABG Sodium ABG Potassium ABG Chloride ABG Glucose Oxyhemoglobin Carboxyhemoglobin Sodium 129 L Potassium Chloride 91.9 L Carbon Dioxide BUN 22 H Creatinine 4.7 H Glucose POC Glucose Calcium Phosphorus ALT Troponin T Total Protein Albumin Triglycerides HDL Cholesterol TSH Arterial Blood Glucose Crossmatch 08/10/21 08/10/21 08/10/21 04:00 04:00 04:55 WBC 3.3 L RBC 3.32 L Hgb 8.9 L Hct 27.6 L MCH 27 L RDW 18.3 H Plt Count Lymph % (Auto) [place] % (Auto) Lymph # (Auto) Seg Neutrophils % Seg Neuts % (Manual) Lymphocytes % (Manual) Monocytes % (Manual) 9.0 H Eosinophils % (Manual) Basophils % (Manual) Seg Neutrophils # Seg Neutrophils # Man Lymphocytes # (Manual) 0.6 L Monocytes # (Manual) APTT ABG pH POC ABG pCO2 POC ABG pO2 ABG pO2 ABG HCO3 ABG O2 Saturation ABG Base Excess ABG Hemoglobin 9.6 L ABG Oxyhemoglobin ABG Sodium 120.3 L ABG Potassium 5.2 H ABG Chloride 88.0 L ABG Glucose Oxyhemoglobin Carboxyhemoglobin 0.4 L Sodium 123 L Potassium 5.5 H D Chloride 84.8 L Carbon Dioxide BUN 30 H Creatinine 5.5 H Glucose 139 H POC Glucose Calcium Phosphorus 5.90 H ALT Troponin T Total Protein Albumin Triglycerides HDL Cholesterol TSH Arterial Blood Glucose Crossmatch 08/10/21 08/11/21 08/11/21 12:17 04:00 05:53 WBC RBC 3.50 L Hgb 9.2 L Hct 29.0 L MCH 26 L RDW 18.4 H Plt Count Lymph % (Auto) [place] % (Auto) Lymph # (Auto) Seg Neutrophils % Seg Neuts % (Manual) 76.0 H Lymphocytes % (Manual) 8.0 L Monocytes % (Manual) 13.0 H Eosinophils % (Manual) Basophils % (Manual) Seg Neutrophils # Seg Neutrophils # Man Lymphocytes # (Manual) 0.6 L Monocytes # (Manual) 0.9 H APTT ABG pH POC ABG pCO2 POC ABG pO2 ABG pO2 ABG HCO3 ABG O2 Saturation ABG Base Excess ABG Hemoglobin ABG Oxyhemoglobin ABG Sodium ABG Potassium ABG Chloride ABG Glucose Oxyhemoglobin Carboxyhemoglobin Sodium 128 L Potassium Chloride 90.3 L Carbon Dioxide BUN 24 H Creatinine 4.3 H Glucose 135 H POC Glucose 142 H Calcium Phosphorus ALT Troponin T Total Protein Albumin Triglycerides HDL Cholesterol TSH Arterial Blood Glucose Crossmatch 08/11/21 08/12/21 08/12/21 16:39 05:23 05:23 WBC RBC 3.20 L Hgb 8.8 L Hct 26.7 L MCH RDW 18.6 H Plt Count Lymph % (Auto) [place] % (Auto) Lymph # (Auto) Seg Neutrophils % Seg Neuts % (Manual) Lymphocytes % (Manual) Monocytes % (Manual) Eosinophils % (Manual) Basophils % (Manual) Seg Neutrophils # Seg Neutrophils # Man Lymphocytes # (Manual) Monocytes # (Manual) APTT ABG pH POC ABG pCO2 POC ABG pO2 ABG pO2 ABG HCO3 ABG O2 Saturation ABG Base Excess ABG Hemoglobin ABG Oxyhemoglobin ABG Sodium ABG Potassium ABG Chloride ABG Glucose Oxyhemoglobin Carboxyhemoglobin Sodium 125 L Potassium Chloride 86.6 L Carbon Dioxide 21 L BUN 34 H Creatinine 5.0 H Glucose 111 H POC Glucose 112 H Calcium Phosphorus ALT Troponin T Total Protein Albumin Triglycerides HDL Cholesterol TSH Arterial Blood Glucose Crossmatch 08/12/21 08/12/21 08/13/21 12:18 17:56 06:01 WBC RBC Hgb Hct MCH RDW Plt Count Lymph % (Auto) [place] % (Auto) Lymph # (Auto) Seg Neutrophils % Seg Neuts % (Manual) Lymphocytes % (Manual) Monocytes % (Manual) Eosinophils % (Manual) Basophils % (Manual) Seg Neutrophils # Seg Neutrophils # Man Lymphocytes # (Manual) Monocytes # (Manual) APTT ABG pH POC ABG pCO2 POC ABG pO2 ABG pO2 ABG HCO3 ABG O2 Saturation ABG Base Excess ABG Hemoglobin ABG Oxyhemoglobin ABG Sodium ABG Potassium ABG Chloride ABG Glucose Oxyhemoglobin Carboxyhemoglobin Sodium Potassium Chloride Carbon Dioxide BUN Creatinine Glucose POC Glucose 140 H 119 H 110 H Calcium Phosphorus ALT Troponin T Total Protein Albumin Triglycerides HDL Cholesterol TSH Arterial Blood Glucose Crossmatch 08/13/21 08/13/21 08/14/21 Unknown Unknown 04:00 WBC RBC Hgb Hct MCH RDW Plt Count Lymph % (Auto) [place] % (Auto) Lymph # (Auto) Seg Neutrophils % Seg Neuts % (Manual) Lymphocytes % (Manual) Monocytes % (Manual) Eosinophils % (Manual) Basophils % (Manual) Seg Neutrophils # Seg Neutrophils # Man Lymphocytes # (Manual) Monocytes # (Manual) APTT ABG pH POC ABG pCO2 POC ABG pO2 ABG pO2 ABG HCO3 ABG O2 Saturation ABG Base Excess ABG Hemoglobin ABG Oxyhemoglobin ABG Sodium ABG Potassium ABG Chloride ABG Glucose Oxyhemoglobin Carboxyhemoglobin Sodium 129 L 128 L Potassium Chloride 90.1 L 89.7 L Carbon Dioxide BUN 24 H 36 H Creatinine 3.8 H 4.2 H Glucose POC Glucose Calcium Phosphorus ALT Troponin T Total Protein Albumin Triglycerides 399 H HDL Cholesterol TSH Arterial Blood Glucose Crossmatch 08/14/21 08/14/21 08/14/21 05:44 11:57 13:12 WBC RBC Hgb Hct MCH RDW Plt Count Lymph % (Auto) [place] % (Auto) Lymph # (Auto) Seg Neutrophils % Seg Neuts % (Manual) Lymphocytes % (Manual) Monocytes % (Manual) Eosinophils % (Manual) Basophils % (Manual) Seg Neutrophils # Seg Neutrophils # Man Lymphocytes # (Manual) Monocytes # (Manual) APTT ABG pH 7.498 H POC ABG pCO2 29.1 L POC ABG pO2 61.8 L ABG pO2 ABG HCO3 ABG O2 Saturation ABG Base Excess ABG Hemoglobin 8.6 L ABG Oxyhemoglobin 91.9 L ABG Sodium 126.4 L ABG Potassium ABG Chloride 92.0 L ABG Glucose 99 H Oxyhemoglobin Carboxyhemoglobin Sodium Potassium Chloride Carbon Dioxide BUN Creatinine Glucose POC Glucose 111 H 111 H Calcium Phosphorus ALT Troponin T Total Protein Albumin Triglycerides HDL Cholesterol TSH Arterial Blood Glucose 99 H Crossmatch 08/14/21 08/15/21 08/15/21 Unknown 04:34 04:34 WBC RBC 3.14 L 2.79 L Hgb 8.5 L 7.8 L Hct 25.5 L 22.8 L MCH 27 L RDW 19.1 H 18.8 H Plt Count Lymph % (Auto) [place] % (Auto) Lymph # (Auto) Seg Neutrophils % Seg Neuts % (Manual) Lymphocytes % (Manual) Monocytes % (Manual) Eosinophils % (Manual) Basophils % (Manual) Seg Neutrophils # Seg Neutrophils # Man Lymphocytes # (Manual) Monocytes # (Manual) APTT ABG pH POC ABG pCO2 POC ABG pO2 ABG pO2 ABG HCO3 ABG O2 Saturation ABG Base Excess ABG Hemoglobin ABG Oxyhemoglobin ABG Sodium ABG Potassium ABG Chloride ABG Glucose Oxyhemoglobin Carboxyhemoglobin Sodium 128 L Potassium Chloride 88.8 L Carbon Dioxide BUN 44 H Creatinine 5.1 H Glucose POC Glucose Calcium Phosphorus ALT Troponin T Total Protein Albumin Triglycerides HDL Cholesterol TSH Arterial Blood Glucose Crossmatch 08/15/21 08/15/21 08/15/21 05:22 10:56 16:52 WBC RBC Hgb Hct MCH RDW Plt Count Lymph % (Auto) [place] % (Auto) Lymph # (Auto) Seg Neutrophils % Seg Neuts % (Manual) Lymphocytes % (Manual) Monocytes % (Manual) Eosinophils % (Manual) Basophils % (Manual) Seg Neutrophils # Seg Neutrophils # Man Lymphocytes # (Manual) Monocytes # (Manual) APTT ABG pH 7.496 H POC ABG pCO2 29.8 L POC ABG pO2 ABG pO2 ABG HCO3 ABG O2 Saturation ABG Base Excess ABG Hemoglobin 7.4 L ABG Oxyhemoglobin ABG Sodium 124.3 L ABG Potassium ABG Chloride 92.0 L ABG Glucose Oxyhemoglobin Carboxyhemoglobin Sodium Potassium Chloride Carbon Dioxide BUN Creatinine Glucose POC Glucose 111 H 115 H Calcium Phosphorus ALT Troponin T Total Protein Albumin Triglycerides HDL Cholesterol TSH Arterial Blood Glucose Crossmatch 08/16/21 08/16/21 08/16/21 04:00 04:00 10:57 WBC RBC 2.96 L Hgb 8.0 L Hct 23.9 L MCH 27 L RDW 18.6 H Plt Count Lymph % (Auto) [place] % (Auto) Lymph # (Auto) Seg Neutrophils % Seg Neuts % (Manual) Lymphocytes % (Manual) Monocytes % (Manual) Eosinophils % (Manual) Basophils % (Manual) Seg Neutrophils # Seg Neutrophils # Man Lymphocytes # (Manual) Monocytes # (Manual) APTT ABG pH POC ABG pCO2 POC ABG pO2 ABG pO2 ABG HCO3 ABG O2 Saturation ABG Base Excess ABG Hemoglobin ABG Oxyhemoglobin ABG Sodium ABG Potassium ABG Chloride ABG Glucose Oxyhemoglobin Carboxyhemoglobin Sodium 132 L Potassium Chloride 93.1 L Carbon Dioxide BUN 26 H Creatinine 3.9 H Glucose 119 H POC Glucose 112 H Calcium Phosphorus ALT Troponin T Total Protein Albumin Triglycerides HDL Cholesterol TSH Arterial Blood Glucose Crossmatch 08/16/21 08/17/21 08/17/21 23:20 04:00 04:00 WBC RBC 3.07 L Hgb 8.1 L Hct 25.0 L MCH 26 L RDW 19.3 H Plt Count Lymph % (Auto) [place] % (Auto) Lymph # (Auto) Seg Neutrophils % Seg Neuts % (Manual) Lymphocytes % (Manual) Monocytes % (Manual) Eosinophils % (Manual) Basophils % (Manual) Seg Neutrophils # Seg Neutrophils # Man Lymphocytes # (Manual) Monocytes # (Manual) APTT ABG pH POC ABG pCO2 POC ABG pO2 ABG pO2 ABG HCO3 ABG O2 Saturation ABG Base Excess ABG Hemoglobin ABG Oxyhemoglobin ABG Sodium ABG Potassium ABG Chloride ABG Glucose Oxyhemoglobin Carboxyhemoglobin Sodium 135 L Potassium Chloride 97.4 L Carbon Dioxide BUN 20 H Creatinine 3.0 H Glucose 171 H POC Glucose 125 H Calcium Phosphorus ALT Troponin T Total Protein Albumin Triglycerides HDL Cholesterol TSH Arterial Blood Glucose Crossmatch 08/17/21 08/17/21 08/17/21 05:09 05:12 11:46 WBC RBC Hgb Hct MCH RDW Plt Count Lymph % (Auto) [place] % (Auto) Lymph # (Auto) Seg Neutrophils % Seg Neuts % (Manual) Lymphocytes % (Manual) Monocytes % (Manual) Eosinophils % (Manual) Basophils % (Manual) Seg Neutrophils # Seg Neutrophils # Man Lymphocytes # (Manual) Monocytes # (Manual) APTT ABG pH 7.579 H POC ABG pCO2 27.0 L POC ABG pO2 139.0 H ABG pO2 ABG HCO3 ABG O2 Saturation ABG Base Excess ABG Hemoglobin 8.1 L ABG Oxyhemoglobin 98.3 H ABG Sodium 132.1 L ABG Potassium ABG Chloride ABG Glucose 160 H Oxyhemoglobin Carboxyhemoglobin Sodium Potassium Chloride Carbon Dioxide BUN Creatinine Glucose POC Glucose 155 H 170 H Calcium Phosphorus ALT Troponin T Total Protein Albumin Triglycerides HDL Cholesterol TSH Arterial Blood Glucose 160 H Crossmatch 08/17/21 08/18/21 08/18/21 17:41 00:21 04:00 WBC RBC 2.82 L Hgb 7.5 L Hct 22.7 L MCH 27 L RDW 18.9 H Plt Count Lymph % (Auto) [place] % (Auto) Lymph # (Auto) Seg Neutrophils % Seg Neuts % (Manual) Lymphocytes % (Manual) Monocytes % (Manual) Eosinophils % (Manual) Basophils % (Manual) Seg Neutrophils # Seg Neutrophils # Man Lymphocytes # (Manual) Monocytes # (Manual) APTT ABG pH POC ABG pCO2 POC ABG pO2 ABG pO2 ABG HCO3 ABG O2 Saturation ABG Base Excess ABG Hemoglobin ABG Oxyhemoglobin ABG Sodium ABG Potassium ABG Chloride ABG Glucose Oxyhemoglobin Carboxyhemoglobin Sodium Potassium Chloride Carbon Dioxide BUN Creatinine Glucose POC Glucose 150 H 152 H Calcium Phosphorus ALT Troponin T Total Protein Albumin Triglycerides HDL Cholesterol TSH Arterial Blood Glucose Crossmatch 08/18/21 08/18/21 08/18/21 04:00 05:38 11:58 WBC RBC Hgb Hct MCH RDW Plt Count Lymph % (Auto) [place] % (Auto) Lymph # (Auto) Seg Neutrophils % Seg Neuts % (Manual) Lymphocytes % (Manual) Monocytes % (Manual) Eosinophils % (Manual) Basophils % (Manual) Seg Neutrophils # Seg Neutrophils # Man Lymphocytes # (Manual) Monocytes # (Manual) APTT ABG pH POC ABG pCO2 POC ABG pO2 ABG pO2 ABG HCO3 ABG O2 Saturation ABG Base Excess ABG Hemoglobin ABG Oxyhemoglobin ABG Sodium ABG Potassium ABG Chloride ABG Glucose Oxyhemoglobin Carboxyhemoglobin Sodium 132 L Potassium Chloride 94.8 L Carbon Dioxide BUN 36 H Creatinine 4.0 H Glucose 168 H POC Glucose 158 H 139 H Calcium Phosphorus ALT Troponin T Total Protein Albumin Triglycerides HDL Cholesterol TSH Arterial Blood Glucose Crossmatch 08/18/21 08/18/21 08/19/21 16:17 23:11 04:00 WBC RBC 3.09 L Hgb 8.2 L Hct 25.0 L MCH 27 L RDW 19.0 H Plt Count 506 H Lymph % (Auto) [place] % (Auto) Lymph # (Auto) Seg Neutrophils % Seg Neuts % (Manual) Lymphocytes % (Manual) Monocytes % (Manual) Eosinophils % (Manual) Basophils % (Manual) Seg Neutrophils # Seg Neutrophils # Man Lymphocytes # (Manual) Monocytes # (Manual) APTT ABG pH POC ABG pCO2 POC ABG pO2 ABG pO2 ABG HCO3 ABG O2 Saturation ABG Base Excess ABG Hemoglobin ABG Oxyhemoglobin ABG Sodium ABG Potassium ABG Chloride ABG Glucose Oxyhemoglobin Carboxyhemoglobin Sodium Potassium Chloride Carbon Dioxide BUN Creatinine Glucose POC Glucose 126 H 170 H Calcium Phosphorus ALT Troponin T Total Protein Albumin Triglycerides HDL Cholesterol TSH Arterial Blood Glucose Crossmatch 08/19/21 08/19/21 08/19/21 04:00 05:17 12:34 WBC RBC Hgb Hct MCH RDW Plt Count Lymph % (Auto) [place] % (Auto) Lymph # (Auto) Seg Neutrophils % Seg Neuts % (Manual) Lymphocytes % (Manual) Monocytes % (Manual) Eosinophils % (Manual) Basophils % (Manual) Seg Neutrophils # Seg Neutrophils # Man Lymphocytes # (Manual) Monocytes # (Manual) APTT ABG pH POC ABG pCO2 POC ABG pO2 ABG pO2 ABG HCO3 ABG O2 Saturation ABG Base Excess ABG Hemoglobin ABG Oxyhemoglobin ABG Sodium ABG Potassium ABG Chloride ABG Glucose Oxyhemoglobin Carboxyhemoglobin Sodium 135 L Potassium Chloride 94.4 L Carbon Dioxide BUN 53 H Creatinine 4.5 H Glucose 125 H POC Glucose 113 H 130 H Calcium Phosphorus ALT Troponin T Total Protein Albumin Triglycerides HDL Cholesterol TSH Arterial Blood Glucose Crossmatch 08/19/21 08/20/21 08/20/21 23:30 04:25 05:11 WBC RBC Hgb Hct MCH RDW Plt Count Lymph % (Auto) [place] % (Auto) Lymph # (Auto) Seg Neutrophils % Seg Neuts % (Manual) Lymphocytes % (Manual) Monocytes % (Manual) Eosinophils % (Manual) Basophils % (Manual) Seg Neutrophils # Seg Neutrophils # Man Lymphocytes # (Manual) Monocytes # (Manual) APTT ABG pH 7.508 H POC ABG pCO2 POC ABG pO2 139.8 H ABG pO2 ABG HCO3 ABG O2 Saturation ABG Base Excess ABG Hemoglobin 8.2 L ABG Oxyhemoglobin 98.3 H ABG Sodium 129.8 L ABG Potassium ABG Chloride 96.0 L ABG Glucose 162 H Oxyhemoglobin Carboxyhemoglobin Sodium Potassium Chloride Carbon Dioxide BUN Creatinine Glucose POC Glucose 155 H 140 H Calcium Phosphorus ALT Troponin T Total Protein Albumin Triglycerides HDL Cholesterol TSH Arterial Blood Glucose 162 H Crossmatch 08/20/21 08/20/21 08/20/21 06:08 06:08 17:43 WBC RBC 2.90 L Hgb 7.9 L Hct 23.6 L MCH 27 L RDW 18.6 H Plt Count Lymph % (Auto) [place] % (Auto) Lymph # (Auto) Seg Neutrophils % Seg Neuts % (Manual) Lymphocytes % (Manual) Monocytes % (Manual) Eosinophils % (Manual) Basophils % (Manual) Seg Neutrophils # Seg Neutrophils # Man Lymphocytes # (Manual) Monocytes # (Manual) APTT ABG pH POC ABG pCO2 POC ABG pO2 ABG pO2 ABG HCO3 ABG O2 Saturation ABG Base Excess ABG Hemoglobin ABG Oxyhemoglobin ABG Sodium ABG Potassium ABG Chloride ABG Glucose Oxyhemoglobin Carboxyhemoglobin Sodium 133 L Potassium Chloride 93.9 L Carbon Dioxide BUN 31 H Creatinine 3.3 H Glucose 148 H POC Glucose 157 H Calcium Phosphorus ALT Troponin T Total Protein Albumin Triglycerides 433 H HDL Cholesterol TSH Arterial Blood Glucose Crossmatch 08/21/21 08/21/21 08/21/21 00:21 05:12 08:15 WBC RBC Hgb Hct MCH RDW Plt Count Lymph % (Auto) [place] % (Auto) Lymph # (Auto) Seg Neutrophils % Seg Neuts % (Manual) Lymphocytes % (Manual) Monocytes % (Manual) Eosinophils % (Manual) Basophils % (Manual) Seg Neutrophils # Seg Neutrophils # Man Lymphocytes # (Manual) Monocytes # (Manual) APTT ABG pH POC ABG pCO2 POC ABG pO2 ABG pO2 ABG HCO3 ABG O2 Saturation ABG Base Excess ABG Hemoglobin ABG Oxyhemoglobin ABG Sodium ABG Potassium ABG Chloride ABG Glucose Oxyhemoglobin Carboxyhemoglobin Sodium 134 L Potassium Chloride 94.9 L Carbon Dioxide BUN 42 H Creatinine 4.0 H Glucose 208 H POC Glucose 153 H 139 H Calcium Phosphorus ALT Troponin T Total Protein Albumin Triglycerides HDL Cholesterol TSH Arterial Blood Glucose Crossmatch 08/21/21 08/21/21 08/21/21 08:15 08:18 11:34 WBC RBC 2.90 L Hgb 7.7 L Hct 23.5 L MCH 27 L RDW 18.9 H Plt Count Lymph % (Auto) [place] % (Auto) Lymph # (Auto) Seg Neutrophils % Seg Neuts % (Manual) Lymphocytes % (Manual) Monocytes % (Manual) Eosinophils % (Manual) Basophils % (Manual) Seg Neutrophils # Seg Neutrophils # Man Lymphocytes # (Manual) Monocytes # (Manual) APTT ABG pH POC ABG pCO2 POC ABG pO2 ABG pO2 ABG HCO3 ABG O2 Saturation ABG Base Excess ABG Hemoglobin ABG Oxyhemoglobin ABG Sodium ABG Potassium ABG Chloride ABG Glucose Oxyhemoglobin Carboxyhemoglobin Sodium Potassium Chloride Carbon Dioxide BUN Creatinine Glucose POC Glucose 187 H Calcium Phosphorus ALT Troponin T Total Protein 6.0 L Albumin 2.6 L Triglycerides HDL Cholesterol TSH Arterial Blood Glucose Crossmatch 08/21/21 08/21/21 08/22/21 15:55 23:16 05:02 WBC RBC Hgb Hct MCH RDW Plt Count Lymph % (Auto) [place] % (Auto) Lymph # (Auto) Seg Neutrophils % Seg Neuts % (Manual) Lymphocytes % (Manual) Monocytes % (Manual) Eosinophils % (Manual) Basophils % (Manual) Seg Neutrophils # Seg Neutrophils # Man Lymphocytes # (Manual) Monocytes # (Manual) APTT ABG pH POC ABG pCO2 POC ABG pO2 ABG pO2 ABG HCO3 ABG O2 Saturation ABG Base Excess ABG Hemoglobin ABG Oxyhemoglobin ABG Sodium ABG Potassium ABG Chloride ABG Glucose Oxyhemoglobin Carboxyhemoglobin Sodium Potassium Chloride Carbon Dioxide BUN Creatinine Glucose POC Glucose 173 H 178 H 145 H Calcium Phosphorus ALT Troponin T Total Protein Albumin Triglycerides HDL Cholesterol TSH Arterial Blood Glucose Crossmatch 08/22/21 08/22/21 08/22/21 11:44 16:02 23:50 WBC RBC Hgb Hct MCH RDW Plt Count Lymph % (Auto) [place] % (Auto) Lymph # (Auto) Seg Neutrophils % Seg Neuts % (Manual) Lymphocytes % (Manual) Monocytes % (Manual) Eosinophils % (Manual) Basophils % (Manual) Seg Neutrophils # Seg Neutrophils # Man Lymphocytes # (Manual) Monocytes # (Manual) APTT ABG pH POC ABG pCO2 POC ABG pO2 ABG pO2 ABG HCO3 ABG O2 Saturation ABG Base Excess ABG Hemoglobin ABG Oxyhemoglobin ABG Sodium ABG Potassium ABG Chloride ABG Glucose Oxyhemoglobin Carboxyhemoglobin Sodium Potassium Chloride Carbon Dioxide BUN Creatinine Glucose POC Glucose 211 H 156 H 200 H Calcium Phosphorus ALT Troponin T Total Protein Albumin Triglycerides HDL Cholesterol TSH Arterial Blood Glucose Crossmatch 08/23/21 08/23/21 08/23/21 04:35 04:35 05:08 WBC 13.5 H RBC Hgb Hct MCH 26 L RDW 19.6 H Plt Count Lymph % (Auto) [place] % (Auto) Lymph # (Auto) Seg Neutrophils % Seg Neuts % (Manual) Lymphocytes % (Manual) Monocytes % (Manual) Eosinophils % (Manual) Basophils % (Manual) Seg Neutrophils # Seg Neutrophils # Man Lymphocytes # (Manual) Monocytes # (Manual) APTT ABG pH POC ABG pCO2 POC ABG pO2 ABG pO2 ABG HCO3 ABG O2 Saturation ABG Base Excess ABG Hemoglobin ABG Oxyhemoglobin ABG Sodium ABG Potassium ABG Chloride ABG Glucose Oxyhemoglobin Carboxyhemoglobin Sodium 132 L Potassium Chloride 94.6 L Carbon Dioxide 21 L BUN 60 H Creatinine 4.3 H Glucose 174 H POC Glucose 154 H Calcium Phosphorus ALT Troponin T Total Protein Albumin Triglycerides HDL Cholesterol TSH Arterial Blood Glucose Crossmatch 08/23/21 08/23/21 08/23/21 12:00 17:13 23:57 WBC RBC Hgb Hct MCH RDW Plt Count Lymph % (Auto) [place] % (Auto) Lymph # (Auto) Seg Neutrophils % Seg Neuts % (Manual) Lymphocytes % (Manual) Monocytes % (Manual) Eosinophils % (Manual) Basophils % (Manual) Seg Neutrophils # Seg Neutrophils # Man Lymphocytes # (Manual) Monocytes # (Manual) APTT ABG pH POC ABG pCO2 POC ABG pO2 ABG pO2 ABG HCO3 ABG O2 Saturation ABG Base Excess ABG Hemoglobin ABG Oxyhemoglobin ABG Sodium ABG Potassium ABG Chloride ABG Glucose Oxyhemoglobin Carboxyhemoglobin Sodium Potassium Chloride Carbon Dioxide BUN Creatinine Glucose POC Glucose 172 H 181 H 145 H Calcium Phosphorus ALT Troponin T Total Protein Albumin Triglycerides HDL Cholesterol TSH Arterial Blood Glucose Crossmatch 08/24/21 08/24/21 05:20 05:20 WBC 20.5 H RBC 3.44 L Hgb 8.8 L D Hct 28.2 L D MCH 26 L RDW 19.9 H Plt Count 468 H Lymph % (Auto) [place] % (Auto) Lymph # (Auto) Seg Neutrophils % Seg Neuts % (Manual) Lymphocytes % (Manual) Monocytes % (Manual) Eosinophils % (Manual) Basophils % (Manual) Seg Neutrophils # Seg Neutrophils # Man Lymphocytes # (Manual) Monocytes # (Manual) APTT ABG pH POC ABG pCO2 POC ABG pO2 ABG pO2 ABG HCO3 ABG O2 Saturation ABG Base Excess ABG Hemoglobin ABG Oxyhemoglobin ABG Sodium ABG Potassium ABG Chloride ABG Glucose Oxyhemoglobin Carboxyhemoglobin Sodium Potassium Chloride 95.1 L Carbon Dioxide BUN 43 H Creatinine 3.4 H Glucose POC Glucose Calcium Phosphorus ALT Troponin T Total Protein Albumin Triglycerides HDL Cholesterol TSH Arterial Blood Glucose Crossmatch Allied health notes reviewed: nursing
--- NOTE | 2021-08-24 09:39 | Progress Note ---
Assessment and Plan Assessment and plan: HPI: This is 60-year-old female with ESRD on HD, recurrent AICD discharges, systolic heart failure, V. tach, cardiac arrest, anemia, CAD and HTN who presents to the emergency department from her dialysis center on 08/05 for severe muscle spasms secondary to AICD discharges per patient. She also had questionable seizures in the dialysis center. Patient was started on amiodarone and lidocaine. Patient was intubated for airway protection in the emergency department and work-up also revealed severe hypokalemia. Patient was admitted to the hospital service with consult cardiology, nephrology and CCM. hospital course: 08/06/2021: Patient is sedated, Transfer to [facility] arranged 08/07: COVID-19 PCR negative. Patient received hemodialysis today. Off Cardene drip. Patient has been OG tube for p.o. BP medications. Thrombocytopenia persists therefore anticoagulation is held. Patient is leukopenia also. We will continue to trend CBC. Persistent hypoglycemia and D10 drip increased to 30 ml/hr. negative Covid test relayed to [facility]. 08/08: 1 unit prbc today, will start TF today. Still awaiting [facility] bed. 08/09: awaiting transfer to [facility]. TF nearly at goal so anticipate stopping dextrose IVF soon. Midline to be placed 08/10/2021: Received HD today. BP remains elevated therefore started on cardene gtt. Cardiology aware. No beds available yet. 08/11/2021: Cardene gtt infusing, CT head ordered as per nurse patient is not really responding (withdraw/ grimace to pain when off sedation/PERRL/intact cough/gag on PE). 08/12: ANGELINE overnight. Remains on the vent and sedated. On Amio gtt, A-pacing on the monitor, still hypertensive on cardene gtt, home antihypertensive was restarted. Plan for HD this am, hypernatremia too be corrected per Nephro. 08/13: Plan for SAT and SBT this am for possible extubation. Patient remains hypertensive on cardene gtt, clonidine added. 08/14: Patient s/p reintubation by anesthesia. Awake and alert following commands, not on any sedation. Remains hypertensive on amio and cardene gtt. D/w cardio plan to switch to PO Amio and to adjust antihypertensive therapy, hopefully can wean off cardene gtt. Plan to possible transfer patient to [facility] as a way of getting patient into the [facility] system for the needed ablation. Case manag ement to arrange 08/15: ANGELINE overnight. Patient remains stable on the vent. Still with uncontrolled hypertension despite meds increased yesterday. Patient remains on cardene gt. Cardio added minoxidil, plan is still to wean off cardene gtt. Plan for HD today 08/16: Self-extubated and was reintubated overnight due to stridor. Now on low dose sedation, following commands. D/w CCM plan to do a cuff leak today and possible start patinet on IV steroids. Since this is X2 failed extubation patient might need to be Trached. Per Case management patient was denied for [facility], no HD beds available. Patient remains on [facility] transfer list for possible inpatient transfer. 08/17: On the vent and om propofol gtt, RASS 0. Hypotensive overnight, will defer to Cardio for possible BP meds adjustment. Pending transfer to [facility]. 08/18: ANGELINE overnight. While awake on propofol gtt, following commands. Tolerated PST yesterday [id number]. Daily PST as tolerated. Pending transfer to [facility] 08/19: no cuff leak noted, may need neck imaging later this week. HD today with removal of 2.5 L. Midline ordered. [place] positional 08/20: Blood pressure medications adjusted due to hypotension, leak test not completed yet. No acute events reported overnight. Precedex drip initiated due to elevated triglycerides and propofol discontinued. 08/21: Patient remains soft with her blood pressures and antihypertensive regimen adjusted again. No cuff leak noted again despite getting FFP yesterday. Remains on Precedex. Started on Seroquel. Will have routine ECG tomorrow. 08/22: RN states that doses of hypertensive regimen have been withheld due to hypotension which has been medicated to cardiology. However per documentation as patient was hypotensive with SBP of 90s for approximately [address] neck completed, CT neck with contrast will be obtained as she is a [facility] HD schedule and cleared with Nephro. Still awaiting transfer to [facility]. 08/23: Patient will be transferred to the floor, Precedex weaned off. Failed bedside swallow eval and ST eval ordered but patient was drowsy when they came to assess. Amiodarone drip reinitiated by cardiology due to inability to take p.o. amiodarone. Added as needed labetalol since patient is n.p.o. 08/24: Agree with pccm, will likey need ent once at [place]. Steroids will be changed to 40 q8. BP elevated this AM, labetalol iv on oct....patient cannot take po meds due to failed swallow eval, will follow speech recs. Follow up renal plans. CXR ordered by cardiology will follow. Neuro: Sedated -s/p precedex -PRN ativan -seroquel increased -Avoid delirium -Per RN [facility] ICU (+) -Reorientation as needed -CT head x2 with no acute findings CV: Recurrent V. tach storm, NSTEMI, h/o s/p AICD implantation, systolic heart failure, V. tach, HTN -Cardiology consulted, appreciate recommendations -S/p lidocaine and Cardene drip -Antihypertensive regimen: hydralazine, isosorbide, cozaar, metoprolol,clonidine (adjust as needed) -Currently n.p.o., as needed labetalol added -s/p Amiodarone drip-> Amio PO -Amiodarone IV started due to inability to take p.o. -Awaiting transfer to [facility] -Continue Lipitor, Plavix, ASA Respiratory: Acute Hypoxemic Respiratory Failure -[facility] consulted, appreciate recommendations -Intubated in the ED on 08/05 with a 6.50 ETT at 21 at the lips, extubated 08/14 with reintubation, self extubation 08/16 with reintubation and self extubated on 08/22 -Nasal cannula to room air during the day -BiPAP nightly -obtain CT neck w/ con per CCM -On hold as patient self extubated and seems stable -Will likely need ENT transfer to tertiary facility -VAP bundle -SPO2 monitoring -Continue steroids GI: Dysphagia -Removal of NG tube with self extubation on 08/22 -Failed bedside swallow evaluation today -ST evaluation ordered-> patient was too lethargic at time of visit, will reassess tomorrow -24 hours +1197 mL -HD today -PPI -BR: Senokot -BM 08/19 : ESRD on HD, hyponatremia, hypochloremia -Nephrology consulted, appreciate recommendations -HD per nephrology -MWF schedule -Avoid nephrotoxic medications -Renally dose medications -Strict intake and output ID: [id number] -Monitor WBC and fever curve -Follow-up blood culture x2 and sputum culture -NGTD Heme: Thrombocytosis, Acute on chronic anemia of chronic disease, leukocytosis -S/p 2 unit PRBC -Trend CBC -Transfuse for hemoglobin less than 7 -Epogen per nephrology -Resume DAPT per cards in setting of recent stent -Heparin subq -SCDs to bilateral LE while in bed -Leukocytosis possibly secondary to steroid use Endo: Hypoglycemia (resolved) -S/p D10 for hypoglycemia -Avoid hypoglycemia -Accu-Cheks every 4 Dispo: AWAITING TRANSFER TO [facility] since 08/06/2021 History Interval history: No acute complaints. Blood pressure noted to be elevated this AM .discussed with RN to admin labetalol. Hospitalist Physical - Physical exam Narrative exam: Physical Exam: VITAL SIGNS: Reviewed. GENERAL: The patient appears normally developed, Vital signs as documented. HEAD: No signs of head trauma. EYES: Pupils are equal. Extraocular motions intact. EARS: Hearing grossly intact. MOUTH: Oropharynx is normal. NECK: No adenopathy, no JVD. CHEST: Chest with clear breath sounds bilaterally. No wheezes, rales, or rhonchi. CARDIAC: Regular rate and rhythm. S1 and S2, without murmurs, gallops, or rubs. VASCULAR: No Edema. Peripheral pulses normal and equal in all extremities. ABDOMEN: Soft, non tender and non distended. No rebound or guarding, and no masses palpated. Bowel Sounds normal. MUSCULOSKELETAL: Good range of motion of all major joints. Extremities without clubbing, cyanosis or edema. NEUROLOGIC EXAM: Alert and oriented x 4. no focal sensory or strength deficits. PSYCHIATRIC: Mood normal. SKIN: detail exam as documented in skin assessment - Constitutional Vitals: Temp Pulse Resp BP Pulse Ox 99.0 F 70 18 192/76 94 08/24/21 08:13 08/24/21 08:13 08/24/21 08:13 08/24/21 08:13 08/24/21 08:13 General appearance: Present: no acute distress, other (Intubated and on sedation, RASS 0 ) HEART Score - HEART Score Age: 45-65 Risk factors: > 3 risk factors or hx of atherosclerotic disease Troponin: Troponin T 0.183 ng/mL (0.00-0.029) H* D 08/05/21 18:56 Troponin: 1-3x normal limit - Critical Actions Critical Actions: 4-6 pts:12-16.6% risk of adverse cardiac event. Should be admitted Results - Labs CBC & Chem 7: 08/24/21 05:20 08/24/21 05:20 Labs: Laboratory Last Values WBC 20.5 K/mm3 (4.5-11.0) H 08/24/21 05:20 RBC 3.44 M/mm3 (3.65-5.03) L 08/24/21 05:20 Hgb 8.8 gm/dl (10.1-14.3) L D 08/24/21 05:20 Hct 28.2 % (30.3-42.9) L D 08/24/21 05:20 MCV 82 fl (79-97) 08/24/21 05:20 MCH 26 pg (28-32) L 08/24/21 05:20 MCHC 31 % (30-34) 08/24/21 05:20 RDW 19.9 % (13.2-15.2) H 08/24/21 05:20 Plt Count 468 K/mm3 (140-440) H 08/24/21 05:20 Lymph % (Auto) Bung Remover 08/07/21 04:00 Jenkins % (Auto) Bung Remover 08/11/21 04:00 Eos % (Auto) 2.2 % (0.0-4.3) 08/06/21 16:35 Baso % (Auto) Bung Remover 08/07/21 04:00 Lymph # (Auto) 0.8 K/mm3 (1.2-5.4) L 08/06/21 16:35 Jenkins # (Auto) 0.7 K/mm3 (0.0-0.8) 08/06/21 16:35 Eos # (Auto) 0.1 K/mm3 (0.0-0.4) 08/06/21 16:35 Baso # (Auto) 0.1 K/mm3 (0.0-0.1) 08/06/21 16:35 Add Manual Diff Complete 08/11/21 04:00 Total Counted 100 08/11/21 04:00 Seg Neutrophils % Bung Remover 08/07/21 04:00 Seg Neuts % (Manual) 76.0 % (40.0-70.0) H 08/11/21 04:00 Band Neutrophils % 2.0 % 08/11/21 04:00 Lymphocytes % (Manual) 8.0 % (13.4-35.0) L 08/11/21 04:00 Reactive Lymphs % (Man) 5.0 % 08/07/21 04:00 Monocytes % (Manual) 13.0 % (0.0-7.3) H 08/11/21 04:00 Eosinophils % (Manual) 1.0 % (0.0-4.3) 08/10/21 04:00 Basophils % (Manual) 4.0 % (0.0-1.8) H 08/07/21 04:00 Metamyelocytes % 1.0 % 08/11/21 04:00 Nucleated RBC % Not Reportable 08/11/21 04:00 Seg Neutrophils # 2.6 K/mm3 (1.8-7.7) 08/06/21 16:35 Seg Neutrophils # Man 5.2 K/mm3 (1.8-7.7) 08/11/21 04:00 Band Neutrophils # 0.1 K/mm3 08/11/21 04:00 Lymphocytes # (Manual) 0.6 K/mm3 (1.2-5.4) L 08/11/21 04:00 Abs React Lymphs (Man) 0.0 K/mm3 08/11/21 04:00 Monocytes # (Manual) 0.9 K/mm3 (0.0-0.8) H 08/11/21 04:00 Eosinophils # (Manual) 0.0 K/mm3 (0.0-0.4) 08/11/21 04:00 Basophils # (Manual) 0.0 K/mm3 (0.0-0.1) 08/11/21 04:00 Metamyelocytes # 0.1 K/mm3 08/11/21 04:00 Myelocytes # 0.0 K/mm3 08/11/21 04:00 Promyelocytes # 0.0 K/mm3 08/11/21 04:00 Blast Cells # 0.0 K/mm3 08/11/21 04:00 WBC Morphology Not Reportable 08/11/21 04:00 WBC Morphology TNR 08/11/21 04:00 Hypersegmented Neuts Not Reportable 08/11/21 04:00 Hyposegmented Neuts Not Reportable 08/11/21 04:00 Hypogranular Neuts Not Reportable 08/11/21 04:00 Smudge Cells Not Reportable 08/11/21 04:00 Toxic Granulation Not Reportable 08/11/21 04:00 Toxic Vacuolation Not Reportable 08/11/21 04:00 Dohle Bodies Not Reportable 08/11/21 04:00 Pelger-Huet Anomaly Not Reportable 08/11/21 04:00 Claudio Rods Not Reportable 08/11/21 04:00 Platelet Estimate Consistent w auto 08/11/21 04:00 Clumped Platelets Not Reportable 08/11/21 04:00 Plt Clumps, EDTA Not Reportable 08/11/21 04:00 Large Platelets Not Reportable 08/11/21 04:00 Giant Platelets Not Reportable 08/11/21 04:00 Platelet Satelliting Not Reportable 08/11/21 04:00 Plt Morphology Comment Not Reportable 08/11/21 04:00 RBC Morphology Not Reportable 08/11/21 04:00 Dimorphic RBCs Not Reportable 08/11/21 04:00 Polychromasia Not Reportable 08/11/21 04:00 Hypochromasia Few 08/11/21 04:00 Poikilocytosis Not Reportable 08/11/21 04:00 Anisocytosis Not Reportable 08/11/21 04:00 Microcytosis Not Reportable 08/11/21 04:00 Macrocytosis Not Reportable 08/11/21 04:00 Spherocytes Not Reportable 08/11/21 04:00 Pappenheimer Bodies Not Reportable 08/11/21 04:00 Sickle Cells Not Reportable 08/11/21 04:00 Target Cells Few 08/11/21 04:00 Tear Drop Cells Not Reportable 08/11/21 04:00 Ovalocytes Not Reportable 08/11/21 04:00 Helmet Cells Not Reportable 08/11/21 04:00 [place] Bodies Not Reportable 08/11/21 04:00 [place] Rings Not Reportable 08/11/21 04:00 Case Cells Not Reportable 08/11/21 04:00 Bite Cells Not Reportable 08/11/21 04:00 Crenated Cell Not Reportable 08/11/21 04:00 Elliptocytes Not Reportable 08/11/21 04:00 Acanthocytes (Spur) Not Reportable 08/11/21 04:00 Rouleaux Not Reportable 08/11/21 04:00 Hemoglobin C Crystals Not Reportable 08/11/21 04:00 Schistocytes Not Reportable 08/11/21 04:00 Malaria parasites Not Reportable 08/11/21 04:00 Aleks Bodies Not Reportable 08/11/21 04:00 Hem Pathologist Commnt No 08/11/21 04:00 PT 14.2 Sec. (12.2-14.9) 08/06/21 16:35 INR 0.99 (0.87-1.13) 08/06/21 16:35 APTT 37.1 Sec. (24.2-36.6) H 08/06/21 07:26 ABG pH 7.508 (7.320-7.450) H 08/20/21 04:25 POC ABG pCO2 35.1 mmHg (32.0-48.0) 08/20/21 04:25 ABG pCO2 41.2 mm Hg 08/09/21 04:30 POC ABG pO2 139.8 mmHg (83-108) H 08/20/21 04:25 ABG pO2 91.5 mm Hg (80.0-90.0) H 08/09/21 04:30 POC ABG HCO3 27.3 08/20/21 04:25 ABG HCO3 26.6 mmol/L (20.0-26.0) H 08/09/21 04:30 ABG O2 Saturation 99.1 (0-100) 08/20/21 04:25 ABG O2 Content 12.3 (0.0-44) 08/09/21 04:30 POC ABG Base Excess 4.0 08/20/21 04:25 ABG Base Excess 2.0 mmol/L (-2.0-3.0) 08/09/21 04:30 ABG Hemoglobin 8.2 (12.0-17.5) L 08/20/21 04:25 ABG Oxyhemoglobin 98.3 (94-98) H 08/20/21 04:25 ABG Carboxyhemoglobin 1.4 % (0.0-5.0) 08/09/21 04:30 ABG Methemoglobin 0.3 (0.0-1.5) 08/20/21 04:25 ABG Sodium 129.8 mmol/L (136.0-145.0) L 08/20/21 04:25 ABG Potassium 3.7 mmol/L (3.40-4.50) 08/20/21 04:25 ABG Chloride 96.0 mmol/L (98-107) L 08/20/21 04:25 ABG Glucose 162 mg/dL (65-95) H 08/20/21 04:25 Oxyhemoglobin 95.4 % (95.0-99.0) 08/09/21 04:30 Carboxyhemoglobin 0.5 (0.5-1.5) 08/20/21 04:25 FiO2 25 % 08/09/21 04:30 FiO2 % 30.0 08/20/21 04:25 Sodium 138 mmol/L (137-145) 08/24/21 05:20 Potassium 3.9 mmol/L (3.6-5.0) D 08/24/21 05:20 Chloride 95.1 mmol/L (98-107) L 08/24/21 05:20 Carbon Dioxide 26 mmol/L (22-30) 08/24/21 05:20 Anion Gap 21 mmol/L 08/24/21 05:20 BUN 43 mg/dL (7-17) H 08/24/21 05:20 Creatinine 3.4 mg/dL (0.6-1.2) H 08/24/21 05:20 Estimated GFR 17 ml/min 08/24/21 05:20 BUN/Creatinine Ratio 13 % 08/24/21 05:20 Glucose 92 mg/dL (65-100) 08/24/21 05:20 POC Glucose 88 mg/dL (70-105) 08/24/21 05:08 Calcium 9.4 mg/dL (8.4-10.2) 08/24/21 05:20 Phosphorus 4.50 mg/dL (2.5-4.5) 08/23/21 04:35 Magnesium 2.00 mg/dL (1.7-2.3) 08/23/21 04:35 Total Bilirubin 0.30 mg/dL (0.1-1.2) 08/21/21 08:18 Direct Bilirubin < 0.2 mg/dL (0-0.2) 08/21/21 08:18 Indirect Bilirubin 0.1 mg/dL 08/21/21 08:18 AST 15 units/L (5-40) 08/21/21 08:18 ALT 14 units/L (7-56) 08/21/21 08:18 Alkaline Phosphatase 98 units/L (35-129) 08/21/21 08:18 Troponin T 0.183 ng/mL (0.00-0.029) H* D 08/05/21 18:56 Total Protein 6.0 g/dL (6.3-8.2) L 08/21/21 08:18 Albumin 2.6 g/dL (3.9-5) L 08/21/21 08:18 Albumin/Globulin Ratio 0.8 % 08/21/21 08:18 Triglycerides 433 mg/dL (2-149) H 08/20/21 06:08 Cholesterol 170 mg/dL (50-199) 08/05/21 15:55 LDL Cholesterol Direct 106 mg/dL (50-130) 08/05/21 15:55 HDL Cholesterol 32 mg/dL (40-59) L 08/05/21 15:55 Cholesterol/HDL Ratio 5.31 % 08/05/21 15:55 TSH 7.070 mlU/mL (0.270-4.200) H 08/07/21 13:30 Arterial Blood Glucose 162 mg/dL (65-95) H 08/20/21 04:25 Arterial Blood Ionized Calcium 4.8 mg/dL (4.6-5.3) 08/15/21 05:22 Coronavirus (PCR) Negative (Negative) 08/23/21 08:30 Hepatitis A IgM Ab Non-reactive (NonReactive) 08/08/21 04:26 Hep Bs Antigen Nonreactive (Negative) 08/08/21 04:26 Hep B Core IgM Ab Non-reactive (NonReactive) 08/08/21 04:26 Hepatitis C Antibody Non-reactive (NonReactive) 08/08/21 04:26 Blood Type O POSITIVE 08/20/21 15:29 Antibody Screen TNR 08/20/21 15:29 Crossmatch See Detail 08/06/21 05:30 Active Medications - Current Medications Current Medications: Generic Name Dose Route Start Last Admin Trade Name Freq PRN Reason Stop Dose Admin Acetaminophen 650 mg 12/28/21 16:30 08/06/21 16:30 Acetaminophen 650 Mg Rect Supp FL 650 mg Q6H PRN Administration Pain, Mild (1-3) Albuterol 2.5 mg 08/05/21 20:59 Albuterol 2.5 Mg/3 Ml Nebu IH Q4HRT PRN Shortness Of Breath Aspirin 81 mg 08/07/21 10:00 08/23/21 09:03 Aspirin 81 Mg Tab Chew PO Not Given QDAY [facility] Atorvastatin Calcium 80 mg 08/05/21 22:00 08/23/21 21:29 Atorvastatin 40 Mg Tab PO Not Given QHS [facility] Clopidogrel Bisulfate 75 mg 08/10/21 10:00 08/23/21 09:04 Clopidogrel 75 Mg Tab PO Not Given QDAY [facility] Dextrose 50 ml 08/17/21 18:00 Dextrose 50% In Water (25gm) 50 Ml Syringe IV Q30MIN PRN Hypoglycemia Protocol Famotidine 10 mg 08/09/21 22:00 08/23/21 21:30 Famotidine 10 Mg Tab PO Not Given BID [facility] Fentanyl 50 mcg 08/16/21 11:48 08/22/21 05:29 Fentanyl 100 Mcg/2 Ml Inj IV 50 mcg Q2H PRN Administration Pain, Moderate (4-6) Haloperidol Lactate 2.5 mg 08/23/21 13:00 08/24/21 05:11 Haloperidol Lactate 5 Mg/1 Ml Inj IV 2.5 mg Q6HR JODI Administration Heparin Sodium (Porcine) 5,000 unit 08/11/21 10:00 08/23/21 21:29 Heparin 5,000 Unit/1 Ml Vial SUB-Q 5,000 unit Q12HR JODI Administration Hydralazine HCl 10 mg 08/06/21 04:21 08/23/21 23:42 Hydralazine 20 Mg/1 Ml Inj IV 10 mg Q6HR PRN Administration Hypertension Hydralazine HCl 50 mg 08/21/21 14:00 08/24/21 05:17 Hydralazine 25 Mg Tab PO Not Given Q8HR [facility] Hydrophilic Ointment 1 applic 08/05/21 17:25 Lip Therapy Vaseline TP Q2HR PRN Dry Lips Sodium Chloride 100 mls @ 999 mls/hr 08/14/21 17:06 Nacl 0.9% IV GLENDY PRN Hypotension Amiodarone HCl 360 mg/ 200 mls @ 16.667 mls/hr 08/23/21 12:00 08/23/21 23:05 Dextrose IV 0.5 mg/min DIRECT JODI 16.667 mls/hr Administration Protocol 0.5 MG/MIN Insulin Human Regular 0 units 08/17/21 18:00 08/24/21 05:19 Insulin Regular, Human 100 Units/1 Ml SUB-Q Not Given Q6H [facility] Protocol Isosorbide Dinitrate 20 mg 08/11/21 14:00 08/24/21 05:19 Isosorbide Dinitrate 20 Mg Tab PO Not Given Q8HR [facility] Labetalol HCl 10 mg 08/24/21 01:01 Labetalol 20 Mg/4 Ml Inj IV Q4HR PRN Hypertension Lorazepam 1 mg 08/23/21 12:14 08/23/21 20:58 Lorazepam 2 Mg/Ml Vial IV 1 mg Q4H PRN Administration Agitation Losartan Potassium 100 mg 08/12/21 10:00 08/23/21 09:03 Losartan 25 Mg Tab PO Not Given DAILY [facility] Methylprednisolone Sodium Succinate 40 mg 08/16/21 13:00 08/24/21 05:11 Methylprednisolone Sod Succinate 40 Mg/1 Ml Inj IV 40 mg Q6HR [facility] Administration Metoclopramide HCl 5 mg 08/05/21 21:03 Metoclopramide 10 Mg/2 Ml Inj IV Q6H PRN Nausea And Vomiting Metoprolol Tartrate 100 mg 08/12/21 12:00 08/23/21 21:30 Metoprolol Tartrate 50 Mg Tab PO Not Given BID [facility] Multi-Ingred Cream/Lotion/Oil/Oint 1 applic 08/05/21 17:25 Mineral Oil/Petrolatum, White Ophth Oint 3.5 Gm OU Q4HR PRN Dry Eye(s) Ondansetron HCl 4 mg 08/05/21 21:03 Ondansetron 4 Mg/2 Ml Inj IV Q8H PRN Nausea And Vomiting Oxycodone/Acetaminophen 1 tab 08/05/21 21:03 08/22/21 01:52 Oxycodone /Acetaminophen 5-325mg Tab PO 1 tab Q6H PRN Administration Pain, Moderate (4-6) Quetiapine Fumarate 50 mg 08/23/21 10:00 08/23/21 21:30 Quetiapine 25 Mg Tab PO Not Given BID JODI Senna 8.8 mg 08/07/21 13:00 08/23/21 21:30 Sennosides Oral Liqd 8.8 Mg/5 Ml Oral Liqd FEEDTUBE Not Given BID JODI Sodium Chloride 10 ml 08/05/21 22:00 08/23/21 21:30 Sodium Chloride 0.9% 10 Ml Flush Syringe IV 10 ml BID JODI Administration Sodium Chloride 10 ml 08/05/21 21:03 Sodium Chloride 0.9% 10 Ml Flush Syringe IV PRN PRN LINE FLUSH Nutrition/Malnutrition Assess - Dietary Evaluation Nutrition/Malnutrition Findings: Nutrition Notes Start: 08/07/21 09:12 Freq: Status: Active Protocol: Document 08/19/21 14:47 KALA (Rec: 08/19/21 15:06 KALA [id number]) Nutrition Notes Initial or Follow up Brief Note Current Diet TF-Nepro w/CARBSTEADY @ 32 ml/ hr (since L 08/16). Height 5 ft 2 in Weight 64.25 kg [place] Body Weight (kg) 50.00 BMI 25.9 Weight change and time frame No body weight change reported . Weight Status Overweight Subjective/Other Information RD consult for routine F/U on TF continuation assessment. Pt reintubated and TF continued at the time of conversation with RN. Still waiting for placement at [facility]. Percent of energy/protein needs met: Prescribed Nepro w/CARBSTEADY @ 32 ml/hr will provide for energy/protein needs (1,403 Kcal/63 g) 100% Kcal; 82% AA, during LOS. #1 Nutrition Diagnosis Inadequate oral intake Diagnosis Progress(for reassessment Continues documentation) Nutrition Intervention Nutrition Support: Continue Nepro w/CARBSTEADY @ 32 ml/hr. Flush: 50 ml water Q 4 hr until hyponatremia resolves, then 150 ml Q 4 hr. % RDI: 100% Kcal; 82% AA. Goal #1 Provide at least 75% of energy /protein needs through Enteral Feeding during LOS. Follow-Up By: 08/26/21 Additional Comments Continue monitoring TF tolerance, and BM.
[2021-08-24] MEDS: LOSARTAN 25 MG TAB PO SCH (10:33)
[2021-08-24] MEDS: FAMOTIDINE 10 MG TAB PO SCH ×2 (10:33→21:24)
[2021-08-24] MEDS: ASPIRIN 81 MG TAB CHEW PO SCH (10:33)
[2021-08-24] MEDS: CLOPIDOGREL 75 MG TAB PO SCH (10:33)
[2021-08-24] MEDS: QUEtiapine 25 MG TAB PO SCH (10:33)
[2021-08-24] MEDS: METOPROLOL TARTRATE 50 MG TAB PO SCH ×3 (10:33→21:23)
[2021-08-24] MEDS: SENNOSIDES ORAL LIQD 8.8 MG/5 ML ORAL LIQD FEEDTUBE SCH ×2 (10:33→22:00)
[2021-08-24] MEDS: HEPARIN 5,000 UNIT/1 ML VIAL SUB-Q SCH ×2 (10:35→21:25)
[2021-08-24] MEDS: LORazepam 2 MG/ML VIAL IV PRN (10:37)
[2021-08-24] MEDS ORDERED: amLODIPine 5 MG TAB PO SCH (11:00)
--- NOTE | 2021-08-24 11:04 | Progress Note ---
Assessment and Plan Will optimize BP regimen. Await transfer to [place] for VT ablation. Repeat CXR (XR of 08/16 showed bilateral opacities). - Patient Problems (1) AICD discharge Current Visit: Yes Status: Acute (2) VT (ventricular tachycardia) Current Visit: Yes Status: Acute (3) Acute respiratory failure Current Visit: Yes Status: Resolved (4) Pneumonia Current Visit: Yes Status: Acute (5) Leucocytosis Current Visit: Yes Status: Acute (6) CAD (coronary artery disease) Current Visit: Yes Status: Chronic Qualifiers: Coronary Disease-Associated Artery/Lesion type: [place] artery (7) Stented coronary artery Current Visit: Yes Status: Chronic (8) Prolonged QT interval Current Visit: Yes Status: Acute (9) AICD (automatic cardioverter/defibrillator) present Current Visit: Yes Status: Chronic (10) End stage renal disease on dialysis Current Visit: Yes Status: Chronic (11) Hypertension Current Visit: Yes Status: Chronic Qualifiers: Hypertension type: primary hypertension Qualified Code(s): I10 - Essential (primary) hypertension Subjective Date of service: 08/24/21 Principal diagnosis: VT storm, s/p ICD shocks Interval history: No complaint. In NSR. Objective Vital Signs Temp Pulse Pulse Resp BP Pulse Ox Pulse Ox 08/24/21 08:13 99.0 F 70 18 192/76 94 08/24/21 08:10 94 08/24/21 04:00 70 70 20 100 08/24/21 03:12 99.6 F 70 20 168/72 98 08/24/21 02:19 98 08/24/21 00:00 98 F 70 70 20 164/68 97 08/23/21 23:46 74 18 194/63 96 08/23/21 23:30 70 16 181/58 96 08/23/21 23:16 70 11 L 185/62 97 08/23/21 23:14 70 21 185/62 96 08/23/21 23:00 70 11 L 171/60 97 08/23/21 22:46 70 185/62 08/23/21 22:30 70 185/62 08/23/21 22:16 180/68 08/23/21 22:00 70 13 172/60 100 08/23/21 21:59 70 12 166/53 100 08/23/21 21:45 70 11 L 166/53 100 08/23/21 21:30 70 13 165/65 100 08/23/21 21:16 179/69 100 08/23/21 21:00 70 10 L 177/143 100 08/23/21 20:46 85 20 177/143 99 08/23/21 20:30 178/67 84 08/23/21 20:16 178/67 100 08/23/21 20:00 70 70 16 159/62 100 08/23/21 19:53 98.4 F 08/23/21 19:46 70 173/59 100 08/23/21 19:30 70 181/60 100 08/23/21 19:16 70 181/60 100 08/23/21 19:00 70 10 L 171/64 100 08/23/21 18:45 70 14 161/47 100 08/23/21 18:40 70 11 L 149/52 100 08/23/21 18:15 70 16 149/52 100 08/23/21 18:00 70 10 L 138/52 100 08/23/21 17:45 70 0 L 138/52 100 08/23/21 17:30 70 16 153/59 100 08/23/21 17:15 70 18 151/57 100 08/23/21 17:00 70 14 151/59 100 08/23/21 16:45 70 18 155/56 100 08/23/21 16:30 70 19 159/61 100 08/23/21 16:19 98.8 F 08/23/21 16:15 70 0 L 171/87 100 08/23/21 16:00 70 18 162/76 100 08/23/21 15:50 70 15 100 08/23/21 15:49 70 08/23/21 15:45 70 0 L 158/72 100 08/23/21 15:30 90 11 L 198/63 100 08/23/21 15:15 70 13 171/64 76 L 08/23/21 15:00 70 17 154/59 93 08/23/21 14:45 70 10 L 185/59 99 08/23/21 14:30 70 14 172/62 96 08/23/21 14:15 70 10 L 182/59 85 08/23/21 14:02 70 165/55 08/23/21 14:00 70 13 165/61 08/23/21 13:45 70 14 165/61 08/23/21 13:30 70 9 L 143/95 81 L 08/23/21 13:16 70 12 143/95 100 08/23/21 13:15 98 F 70 12 143/75 99 08/23/21 13:00 70 11 L 122/59 99 08/23/21 12:49 71 122/59 08/23/21 12:46 70 10 L 122/59 100 08/23/21 12:30 70 12 145/55 08/23/21 12:15 70 14 135/52 99 08/23/21 12:00 98 F 70 12 132/51 08/23/21 11:45 70 7 L 132/51 100 08/23/21 11:30 70 16 134/56 100 08/23/21 11:17 70 21 100 08/23/21 11:15 70 8 L 126/53 100 08/23/21 11:00 70 7 L 127/55 100 Last Vital Signs Temp 99.0 F 08/24/21 08:13 Pulse 70 08/24/21 08:13 Resp 18 08/24/21 08:13 BP 192/76 08/24/21 08:13 Pulse Ox 94 08/24/21 08:13 - Physical Examination General: No Apparent Distress HEENT: Positive: EOMI, Normocephaly, Mucus Membranes Moist, Mucus Membranes Dry Neck: Positive: neck supple, trachea midline. Negative: JVD/HJR Cardiac: Positive: Reg Rate and Rhythm, S1/S2 Lungs: Positive: clear to auscultation Abdomen: Positive: Soft, Active Bowel Sounds. Negative: Tender Skin: Positive: Clear. Negative: Rash Musculoskeletal: Normal Range of Motion Extremities: Absent: edema - Labs and Meds CBC 08/24/21 Range/Units 05:20 WBC 20.5 H (4.5-11.0) K/mm3 RBC 3.44 L (3.65-5.03) M/mm3 Hgb 8.8 L D (10.1-14.3) gm/dl Hct 28.2 L D (30.3-42.9) % Plt Count 468 H (140-440) K/mm3 Comprehensive Metabolic Panel 08/24/21 Range/Units 05:20 Sodium 138 (137-145) mmol/L Potassium 3.9 D (3.6-5.0) mmol/L Chloride 95.1 L (98-107) mmol/L Carbon Dioxide 26 (22-30) mmol/L BUN 43 H (7-17) mg/dL Creatinine 3.4 H (0.6-1.2) mg/dL Glucose 92 (65-100) mg/dL Calcium 9.4 (8.4-10.2) mg/dL - Telemetry EKG Rhythm: Sinus Rhythm - EKG Sinus rhythms and dysrhythmias: sinus rhythm Repolarization changes or abnormalities: Q-T interval prolongation Myocardial infarction: anterior NE (old age or i Pacemaker: atrial pacing w/capture - Allied health notes Allied health notes reviewed: nursing
--- NOTE | 2021-08-24 11:52 | XRay Report ---
XR chest 1V ap INDICATION / CLINICAL INFORMATION: pneumonia. COMPARISON: 08/16/2021 FINDINGS: SUPPORT DEVICES: Unchanged. HEART /PULMONARY VASCULATURE: Unchanged. LUNGS / PLEURA: Chronic appearing interstitial opacities are again noted. Patchy airspace disease wit hin the right lung base appears slightly improved. Left lung appears clear of consolidation. No sizab le pleural effusion. No pneumothorax. Signer Name: Bill Elaine MD Signed: 08/24/2021 11:48 AM Workstation Name: [id number]
[2021-08-24] MEDS: hydrALAZINE 20 MG/1 ML INJ IV PRN (11:55)
--- NOTE | 2021-08-24 12:39 | Progress Note ---
Assessment and Plan - Patient Problems (1) End stage renal disease on dialysis Current Visit: Yes Status: Chronic Plan to address problem: Cont hemodialysis on a Thursday, Thursday and Thursday schedule. (2) Hypokalemia Current Visit: Yes Status: Acute Plan to address problem: Potassium is back to normal. Follow-up (3) Anemia in end-stage renal disease Current Visit: Yes Status: Acute Plan to address problem: Give erythropoietin on dialysis and follow-up hemoglobin level (4) VT (ventricular tachycardia) Current Visit: Yes Status: Acute Plan to address problem: Continue management by permastone installer. Awaiting transfer to [place] for VT ablation Subjective Date of service: 08/24/21 Principal diagnosis: VT storm, s/p ICD shocks Interval history: Pt awake, alert in no acute distress Objective - Vital Signs Vital signs: Vital Signs - 12hr 08/24/21 08/24/21 08/24/21 02:19 03:12 04:00 Temperature 99.6 F Pulse Rate 70 70 Pulse Rate [ Apical] Pulse Rate [ 70 From Monitor] Respiratory 20 20 Rate Blood Pressure 168/72 O2 Sat by Pulse 98 98 100 Oximetry 08/24/21 08/24/21 08/24/21 08:10 08:13 11:59 Temperature 99.0 F Pulse Rate 70 Pulse Rate [ Apical] Pulse Rate [ From Monitor] Respiratory 18 Rate Blood Pressure 192/76 196/76 O2 Sat by Pulse 94 94 Oximetry 08/24/21 12:00 Temperature Pulse Rate 70 Pulse Rate [ 70 Apical] Pulse Rate [ From Monitor] Respiratory 18 Rate Blood Pressure O2 Sat by Pulse 95 Oximetry - General Appearance General appearance: well-developed, appears stated age EENT: ATNC, PERRL, mucous membranes moist Neck: no JVD Respiratory: Present: Clear to Ascultation Cardiology: regular, S1S2 Gastrointestinal: normoactive bowel sounds Integumentary: no rash Neurologic: no focal deficit Psychiatric: mood/affect appropriate, cooperative - Lab 08/24/21 05:20 08/24/21 05:20 Most recent lab results ABG pH 7.508 (7.320-7.450) H 08/20/21 04:25 ABG pCO2 41.2 mm Hg 08/09/21 04:30 ABG pO2 91.5 mm Hg (80.0-90.0) H 08/09/21 04:30 ABG HCO3 26.6 mmol/L (20.0-26.0) H 08/09/21 04:30 ABG O2 Saturation 99.1 (0-100) 08/20/21 04:25 Calcium 9.4 mg/dL (8.4-10.2) 08/24/21 05:20 Phosphorus 4.50 mg/dL (2.5-4.5) 08/23/21 04:35 Magnesium 2.00 mg/dL (1.7-2.3) 08/23/21 04:35 Medications & Allergies - Medications Allergies/Adverse Reactions: Allergies No Known Allergies Allergy (Unverified 07/10/21 20:57) Home Medications: Home Medications Medication Instructions Recorded Confirmed Last Taken Type Icosapent Ethyl [Vascepa] 2 gm PO BID 07/12/21 08/24/21 Unknown History Losartan [Cozaar] 25 mg PO BID 07/12/21 08/24/21 Unknown History ALBUTEROL NEB's [Proventil 0.083% 2.5 mg IH Q4HRT PRN nebu 07/15/21 08/24/21 Unknown Rx NEBS] Acetaminophen [Acetaminophen 650 mg MN Q4H PRN supp.rect 07/15/21 08/24/21 Unknown Rx SUPPOS] Acetaminophen [Acetaminophen TAB] 650 mg PO Q4H PRN tablet 07/15/21 08/24/21 Unknown Rx Amiodarone [Cordarone 200 MG TAB] 200 mg PO BID tablet 07/15/21 08/24/21 Unknown Rx AtorvaSTATin [Lipitor] 80 mg PO QHS tablet 07/15/21 08/24/21 Unknown Rx Clopidogrel [Plavix] 75 mg PO QDAY tablet 07/15/21 08/24/21 Unknown Rx Dextrose 50% in Water [D50W (25GM) 50 ml IV Q30MIN PRN syringe 07/15/21 08/24/21 Unknown Rx Syringe] Free Water 60 ml PO Q4HR oral.liqd 07/15/21 08/24/21 Unknown Rx Isosorbide Dinitrate [Isordil] 5 mg PO Q8HR tablet 07/15/21 08/24/21 Unknown Rx Lipase/Protease/Amylase [Pancreaze 1 each FEEDTUBE PRN PRN capsule 07/15/21 08/24/21 Unknown Rx 10,500 Unit] Lispro Insulin [HumaLOG] 0 unit SUB-Q Q6HR units 07/15/21 08/24/21 Unknown Rx Metoprolol [Lopressor TAB] 25 mg PO TID tablet 07/15/21 08/24/21 Unknown Rx Simple Syrup 30 ml FEEDTUBE PRN PRN oral.liqd 07/15/21 08/24/21 Unknown Rx hydrALAZINE [Apresoline INJ] 10 mg IV Q6H PRN vial 07/15/21 08/24/21 Unknown Rx Active Medications: Generic Name Dose Route Start Last Admin Trade Name Freq PRN Reason Stop Dose Admin Acetaminophen 650 mg 08/06/21 16:30 08/06/21 16:30 Acetaminophen 650 Mg Rect Supp MN 650 mg Q6H PRN Administration Pain, Mild (1-3) Albuterol 2.5 mg 08/05/21 20:59 Albuterol 2.5 Mg/3 Ml Nebu IH Q4HRT PRN Shortness Of Breath Amlodipine Besylate 5 mg 08/24/21 11:00 08/24/21 12:35 Amlodipine 5 Mg Tab PO Not Given QDAY JODI Aspirin 81 mg 08/07/21 10:00 08/24/21 10:33 Aspirin 81 Mg Tab Chew PO Not Given QDAY JODI Atorvastatin Calcium 80 mg 08/05/21 22:00 08/23/21 21:29 Atorvastatin 40 Mg Tab PO Not Given QHS JODI Clopidogrel Bisulfate 75 mg 08/10/21 10:00 08/24/21 10:33 Clopidogrel 75 Mg Tab PO Not Given QDAY JODI Dextrose 50 ml 08/17/21 18:00 Dextrose 50% In Water (25gm) 50 Ml Syringe IV Q30MIN PRN Hypoglycemia Protocol Famotidine 10 mg 08/09/21 22:00 08/24/21 10:33 Famotidine 10 Mg Tab PO Not Given BID JODI Haloperidol Lactate 2.5 mg 08/23/21 13:00 08/24/21 05:11 Haloperidol Lactate 5 Mg/1 Ml Inj IV 2.5 mg Q6HR JODI Administration Heparin Sodium (Porcine) 5,000 unit 08/11/21 10:00 08/24/21 10:35 Heparin 5,000 Unit/1 Ml Vial SUB-Q 5,000 unit Q12HR JODI Administration Hydralazine HCl 10 mg 08/06/21 04:21 08/23/21 23:42 Hydralazine 20 Mg/1 Ml Inj IV 10 mg Q6HR PRN Administration Hypertension Hydralazine HCl 50 mg 08/21/21 14:00 08/24/21 05:17 Hydralazine 25 Mg Tab PO Not Given Q8HR [facility] Hydrophilic Ointment 1 applic 08/05/21 17:25 Lip Therapy Vaseline TP Q2HR PRN Dry Lips Sodium Chloride 100 mls @ 999 mls/hr 08/14/21 17:06 Nacl 0.9% IV GLENDY PRN Hypotension Amiodarone HCl 360 mg/ 200 mls @ 16.667 mls/hr 08/23/21 12:00 08/23/21 23:05 Dextrose IV 0.5 mg/min DIRECT JODI 16.667 mls/hr Administration Protocol 0.5 MG/MIN Insulin Human Regular 0 units 08/17/21 18:00 08/24/21 12:36 Insulin Regular, Human 100 Units/1 Ml SUB-Q 1 units Q6H [facility] Administration Protocol Isosorbide Dinitrate 20 mg 08/11/21 14:00 08/24/21 05:19 Isosorbide Dinitrate 20 Mg Tab PO Not Given Q8HR [facility] Labetalol HCl 10 mg 08/24/21 01:01 08/24/21 11:59 Labetalol 20 Mg/4 Ml Inj IV 10 mg Q4HR PRN Administration Hypertension Lorazepam 1 mg 08/23/21 12:14 08/24/21 10:37 Lorazepam 2 Mg/Ml Vial IV 1 mg Q4H PRN Administration Agitation Losartan Potassium 100 mg 08/12/21 10:00 08/24/21 10:33 Losartan 25 Mg Tab PO Not Given DAILY [facility] Methylprednisolone Sodium Succinate 40 mg 08/16/21 13:00 08/24/21 05:11 Methylprednisolone Sod Succinate 40 Mg/1 Ml Inj IV 08/25/21 00:00 40 mg Q6HR [facility] Administration Methylprednisolone Sodium Succinate 40 mg 08/25/21 00:00 Methylprednisolone Sod Succinate 40 Mg/1 Ml Inj IV Q8H [facility] Metoclopramide HCl 5 mg 08/05/21 21:03 Metoclopramide 10 Mg/2 Ml Inj IV Q6H PRN Nausea And Vomiting Metoprolol Tartrate 100 mg 08/24/21 14:00 Metoprolol Tartrate 50 Mg Tab PO TID JODI Multi-Ingred Cream/Lotion/Oil/Oint 1 applic 08/05/21 17:25 Mineral Oil/Petrolatum, White Ophth Oint 3.5 Gm OU Q4HR PRN Dry Eye(s) Ondansetron HCl 4 mg 08/05/21 21:03 Ondansetron 4 Mg/2 Ml Inj IV Q8H PRN Nausea And Vomiting Oxycodone/Acetaminophen 1 tab 08/05/21 21:03 08/22/21 01:52 Oxycodone /Acetaminophen 5-325mg Tab PO 1 tab Q6H PRN Administration Pain, Moderate (4-6) Senna 8.8 mg 08/07/21 13:00 08/24/21 10:33 Sennosides Oral Liqd 8.8 Mg/5 Ml Oral Liqd FEEDTUBE Not Given BID JODI Sodium Chloride 10 ml 08/05/21 22:00 08/24/21 10:35 Sodium Chloride 0.9% 10 Ml Flush Syringe IV 10 ml BID JODI Administration Sodium Chloride 10 ml 08/05/21 21:03 Sodium Chloride 0.9% 10 Ml Flush Syringe IV PRN PRN LINE FLUSH
[2021-08-24] MEDS: AMIODARONE 360 MG in DEXTROSE 5% IN WATER 192.8 ML IV SCH (14:33)
[2021-08-24] MEDS ORDERED: cloNIDine TTS 0.2 MG/24 HR PATCH TD SCH (17:00)
[2021-08-25] MEDS: INSULIN REGULAR, HUMAN 100 UNITS/1 ML SUB-Q SCH ×4 (00:37→17:34)
[2021-08-25] MEDS: methylPREDNISolone Sod Succinate 40 MG/1 ML INJ IV SCH ×5 (00:55→17:34)
[2021-08-25] MEDS: HALOPERIDOL LACTATE 5 MG/1 ML INJ IV SCH ×2 (00:56→06:14)
[2021-08-25] MEDS: AMIODARONE 360 MG in DEXTROSE 5% IN WATER 192.8 ML IV SCH ×2 (01:04→12:19)
[2021-08-25] MEDS: hydrALAZINE 25 MG TAB PO SCH (06:13)
[2021-08-25] MEDS: ISOSORBIDE DINITRATE 20 MG TAB PO SCH ×2 (06:13→14:15)
[2021-08-25 06:24] LABS: Hematocrit 29.7 % (30.3-42.9); Hemoglobin 9.5 gm/dl (10.1-14.3); Mean Corpuscular HGB Conc 32 % (30-34); Mean Corpuscular Volume 83 fl (79-97); Platelet Count 435 K/mm3 (140-440); Red Blood Count 3.59 M/mm3 (3.65-5.03); Red Cell Distribution Width 19.8 % (13.2-15.2)
[2021-08-25 06:44] LABS: Calcium 10.4 mg/dL (8.4-10.2)
[2021-08-25] MEDS ORDERED: niCARdipine 50 MG in SODIUM CHLORIDE 0.9% 250ML 230 ML IV SCH (08:00)
[2021-08-25] MEDS ORDERED: amLODIPine 5 MG TAB PO SCH (08:06)
[2021-08-25] MEDS ORDERED: hydrALAZINE 25 MG TAB PO SCH (08:06)
[2021-08-25] MEDS: hydrALAZINE 100 MG TAB PO SCH ×2 (08:46→14:15)
[2021-08-25] MEDS: ASPIRIN 81 MG TAB CHEW PO SCH ×2 (08:46→12:18)
[2021-08-25] MEDS: FAMOTIDINE 10 MG TAB PO SCH ×2 (08:46→12:18)
[2021-08-25] MEDS: METOPROLOL TARTRATE 50 MG TAB PO SCH ×3 (08:46→21:10)
[2021-08-25] MEDS: CLOPIDOGREL 75 MG TAB PO SCH ×2 (08:46→12:17)
[2021-08-25] MEDS: LOSARTAN 25 MG TAB PO SCH ×2 (08:46→12:19)
--- NOTE | 2021-08-25 10:59 | Progress Note ---
Assessment and Plan 60 y/o female with known VT in the past, systolic heart failure with BIV AICD admitted with recurrent VT and electrolyte abnormality 08/26/21: passed her swallow eval so back on oral therapy for BP. HD per renal. Can repeat CXR tomorrow but clinically she has improved. 08/25/21: would try nitropast to chest to see if this helps and askk renal if she could be dialyzed early tomorrow. If no improvement, this could be aspiration and she would just need time and support. Still stable for transfer to [place] for VT ablation. Will continue to follow. 08/24/21: needs ENT eval once transferred to [place]. Suggest changing steroids to 40q8 starting tomorrow. Keep bipap QHS and PRN for now. HD and blood pressure control per renal 08/23/21: Given stability over the last 24 hours, will give trial of transfer to floor. Patient failed swallow eval so can only have IV meds for rate control and BP. Continue NPO status. Continue nocturnal NIV. Guarded prognosis. Needs ENT and EP when she goes to [place]. 08/22/21: Not a candidate for extubation until evaluated by ENT and they review images. ENT not available at this hospital. Now she needs transfer more than ever as she has two issues that we are not able to manage currently. Continue supportive care. Daily PSV trials off sedation. Not sure that steroids are helping, will likely stop tomorrow after discussing on rounds. 08/21/21: No leak on test today. Will do neck CT noncontrast to look for extrisinc issues or potential swelling. Will consult surgery for trach and peg. Await bed at [place]. Guarded prognosis. 08/20/21: Leak test today. If not audible leak, then will give 2 of FFP. Daily leak test should be performed. may need trach if FFP does not work. No runs of VT stable. If bed becomes available at [place] will transfer. 08/19/21: Continue IV steroids until leak test today. If leak is present will likely stop steroids. Will consider extubation yet again however if fails this time will need trach. Continue rate control therapy. Guarded prognosis. 08/16/21: Still no beds at [place]. Will do a leak test this afternoon. If no leak, then will start IV steroid therapy. Patient was only intubated for airway protection to help with catecholamine storm associated with VT storm. No prior lung disease. The multiple intubation may have caused some scarring in the trachea but right now this is not known. Continue supportive measures but may end up needing trach. 08/15/21: Will discuss with CM if any further news on LTACH acceptance. Attempt PSV trials today. BP still elevated and still on Cardene despite increase in med therapy. Will discuss with cards, and renal, and pharm on rounds. 08/14/21: Given no ICU beds at [place], will attempt to transfer to [facility] with hopes that patient can get ablation and then be transferred back over for further vent weaning. Not sure exactly why she failed yesterday but transfer to [facility] makes most sense in the event she will be a half-way wean. Agree with [facility] increasing therapy for HTN. Will attempt to wean Cardene 08/13/21: Will start Clonidine 0.1 TID given her persistent need for Cardene drip. Will extubate today and transfer to tele floor. Hoping this will help the patient get a bed faster at [place]. Rate control per cards. 08/12/21: Will discontinue cardene while on HD as goal is to pull 3 liters. Will speak with [facility] and ask them to call [place] to see if they have a time frame. Continue supportive measures. Remains on Amio Drip. 08/08/21: Continue supportive measures. Follow up any new cardiac recs. 08/07/21: Await transfer to [place], continue supportive measures Follow up cards recs most likely needs ablation at [place] Continue amio drip per cards CCt 31 minutes. Subjective Date of service: 08/25/21 Principal diagnosis: VT storm, s/p ICD shocks Interval history: Increased work of breathing today. Had to go back on bipap. CXR shows what is most likely pulmonary edema Objective Vital Signs - 12hr 08/24/21 08/25/21 08/25/21 23:05 00:46 00:59 Temperature 98.2 F Pulse Rate 70 72 70 Respiratory 24 40 H Rate Blood Pressure 230/87 230/87 O2 Sat by Pulse 99 95 Oximetry 08/25/21 08/25/21 08/25/21 03:14 04:13 06:12 Temperature 98.3 F Pulse Rate 70 82 82 Respiratory 26 H 44 H Rate Blood Pressure 220/111 O2 Sat by Pulse 97 96 Oximetry 08/25/21 08/25/21 08/25/21 06:13 08:17 08:39 Temperature 98.4 F Pulse Rate 82 Respiratory 20 Rate Blood Pressure 191/69 O2 Sat by Pulse 96 Oximetry 08/25/21 09:29 Temperature Pulse Rate 70 Respiratory 25 H Rate Blood Pressure O2 Sat by Pulse 100 Oximetry Constitutional: alert, other (intubated ) Eyes: non-icteric ENT: other (orally intubated, lips swollen) Neck: supple Effort: normal Ascultation: Bilateral: clear Percussion: Bilateral: not dull Cardiovascular: regular rate and rhythm (no mrg) Gastrointestinal: normoactive bowel sounds, soft, non-tender, non-distended Integumentary: normal Extremities: no cyanosis, no edema, pink and warm Neurologic: other (follows commands) Psychiatric: other (unable to assess) CBC and BMP: 08/26/21 05:04 08/26/21 05:04 ABG, PT/INR, D-dimer: ABG ABG pH 7.508 (7.320-7.450) H 08/20/21 04:25 POC ABG pCO2 35.1 mmHg (32.0-48.0) 08/20/21 04:25 ABG pCO2 41.2 mm Hg 08/09/21 04:30 POC ABG pO2 139.8 mmHg (83-108) H 08/20/21 04:25 ABG pO2 91.5 mm Hg (80.0-90.0) H 08/09/21 04:30 POC ABG HCO3 27.3 08/20/21 04:25 ABG O2 Saturation 99.1 (0-100) 08/20/21 04:25 PT/INR, D-dimer PT 14.2 Sec. (12.2-14.9) 08/06/21 16:35 INR 0.99 (0.87-1.13) 08/06/21 16:35 Abnormal lab findings: Abnormal Labs 08/05/21 08/05/21 08/05/21 15:55 15:55 18:50 WBC 3.7 L RBC 2.98 L Hgb 7.5 L Hct 23.8 L MCH 25 L RDW 18.9 H Plt Count 134 L Lymph % (Auto) [place] % (Auto) Lymph # (Auto) Seg Neutrophils % Seg Neuts % (Manual) Lymphocytes % (Manual) Monocytes % (Manual) 18.0 H Eosinophils % (Manual) Basophils % (Manual) 2.0 H Seg Neutrophils # Seg Neutrophils # Man Lymphocytes # (Manual) 0.9 L Monocytes # (Manual) APTT ABG pH 7.523 H POC ABG pCO2 POC ABG pO2 ABG pO2 47.1 L ABG HCO3 34.6 H ABG O2 Saturation 85.4 L ABG Base Excess 10.8 H ABG Hemoglobin 7.3 L ABG Oxyhemoglobin ABG Sodium ABG Potassium ABG Chloride ABG Glucose Oxyhemoglobin 83.6 L Carboxyhemoglobin Sodium Potassium 2.7 L* Chloride 93.8 L Carbon Dioxide 33 H BUN Creatinine 2.8 H Glucose 124 H POC Glucose Calcium 8.2 L Phosphorus ALT < 5 L Troponin T 0.126 H* Total Protein Albumin 3.5 L Triglycerides 202 H HDL Cholesterol 32 L TSH Arterial Blood Glucose Crossmatch 08/05/21 08/05/21 08/06/21 18:56 Unknown 04:20 WBC RBC Hgb Hct MCH RDW Plt Count Lymph % (Auto) [place] % (Auto) Lymph # (Auto) Seg Neutrophils % Seg Neuts % (Manual) Lymphocytes % (Manual) Monocytes % (Manual) Eosinophils % (Manual) Basophils % (Manual) Seg Neutrophils # Seg Neutrophils # Man Lymphocytes # (Manual) Monocytes # (Manual) APTT ABG pH 7.575 H 7.606 H* POC ABG pCO2 POC ABG pO2 ABG pO2 142.9 H 111.2 H ABG HCO3 33.2 H 33.6 H ABG O2 Saturation ABG Base Excess 10.4 H 11.2 H ABG Hemoglobin 6.6 L 6.8 L ABG Oxyhemoglobin ABG Sodium ABG Potassium ABG Chloride ABG Glucose Oxyhemoglobin Carboxyhemoglobin Sodium Potassium Chloride Carbon Dioxide BUN Creatinine Glucose POC Glucose Calcium Phosphorus ALT Troponin T 0.183 H* D Total Protein Albumin Triglycerides HDL Cholesterol TSH Arterial Blood Glucose Crossmatch 08/06/21 08/06/21 08/06/21 04:29 04:29 04:29 WBC 2.5 L RBC 2.70 L Hgb 6.8 L Hct 21.3 L MCH 25 L RDW 18.1 H Plt Count 126 L Lymph % (Auto) 45.0 H [place] % (Auto) 13.6 H Lymph # (Auto) 1.1 L Seg Neutrophils % 37.3 L Seg Neuts % (Manual) Lymphocytes % (Manual) Monocytes % (Manual) Eosinophils % (Manual) Basophils % (Manual) Seg Neutrophils # 0.9 L Seg Neutrophils # Man Lymphocytes # (Manual) Monocytes # (Manual) APTT 38.8 H ABG pH POC ABG pCO2 POC ABG pO2 ABG pO2 ABG HCO3 ABG O2 Saturation ABG Base Excess ABG Hemoglobin ABG Oxyhemoglobin ABG Sodium ABG Potassium ABG Chloride ABG Glucose Oxyhemoglobin Carboxyhemoglobin Sodium 136 L Potassium 3.0 L Chloride 92.6 L Carbon Dioxide 32 H BUN Creatinine 3.8 H Glucose POC Glucose Calcium Phosphorus ALT Troponin T Total Protein 5.8 L Albumin 3.1 L Triglycerides HDL Cholesterol TSH Arterial Blood Glucose Crossmatch 08/06/21 08/06/21 08/06/21 05:30 07:26 07:26 WBC RBC Hgb 7.0 L Hct 22.5 L MCH RDW Plt Count 127 L Lymph % (Auto) [place] % (Auto) Lymph # (Auto) Seg Neutrophils % Seg Neuts % (Manual) Lymphocytes % (Manual) Monocytes % (Manual) Eosinophils % (Manual) Basophils % (Manual) Seg Neutrophils # Seg Neutrophils # Man Lymphocytes # (Manual) Monocytes # (Manual) APTT 37.1 H ABG pH POC ABG pCO2 POC ABG pO2 ABG pO2 ABG HCO3 ABG O2 Saturation ABG Base Excess ABG Hemoglobin ABG Oxyhemoglobin ABG Sodium ABG Potassium ABG Chloride ABG Glucose Oxyhemoglobin Carboxyhemoglobin Sodium Potassium Chloride Carbon Dioxide BUN Creatinine Glucose POC Glucose Calcium Phosphorus ALT Troponin T Total Protein Albumin Triglycerides HDL Cholesterol TSH Arterial Blood Glucose Crossmatch See Detail 08/06/21 08/06/21 08/06/21 08:06 14:50 16:03 WBC RBC Hgb Hct MCH RDW Plt Count Lymph % (Auto) [place] % (Auto) Lymph # (Auto) Seg Neutrophils % Seg Neuts % (Manual) Lymphocytes % (Manual) Monocytes % (Manual) Eosinophils % (Manual) Basophils % (Manual) Seg Neutrophils # Seg Neutrophils # Man Lymphocytes # (Manual) Monocytes # (Manual) APTT ABG pH POC ABG pCO2 POC ABG pO2 ABG pO2 ABG HCO3 ABG O2 Saturation ABG Base Excess ABG Hemoglobin ABG Oxyhemoglobin ABG Sodium ABG Potassium ABG Chloride ABG Glucose Oxyhemoglobin Carboxyhemoglobin Sodium Potassium 3.1 L Chloride 92.4 L Carbon Dioxide 33 H BUN Creatinine 3.9 H Glucose POC Glucose 59 L 121 H Calcium Phosphorus ALT Troponin T Total Protein Albumin Triglycerides HDL Cholesterol TSH Arterial Blood Glucose Crossmatch 08/06/21 08/06/21 08/06/21 16:35 16:35 17:31 WBC 4.2 L RBC 3.27 L Hgb 8.5 L Hct 26.8 L MCH 26 L RDW 18.7 H Plt Count 124 L Lymph % (Auto) [place] % (Auto) 15.5 H Lymph # (Auto) 0.8 L Seg Neutrophils % Seg Neuts % (Manual) Lymphocytes % (Manual) Monocytes % (Manual) Eosinophils % (Manual) Basophils % (Manual) Seg Neutrophils # Seg Neutrophils # Man Lymphocytes # (Manual) Monocytes # (Manual) APTT ABG pH POC ABG pCO2 POC ABG pO2 ABG pO2 ABG HCO3 ABG O2 Saturation ABG Base Excess ABG Hemoglobin ABG Oxyhemoglobin ABG Sodium ABG Potassium ABG Chloride ABG Glucose Oxyhemoglobin Carboxyhemoglobin Sodium 133 L Potassium Chloride 93.2 L Carbon Dioxide BUN 21 H Creatinine 4.6 H Glucose POC Glucose 62 L Calcium 8.3 L Phosphorus ALT Troponin T Total Protein 6.2 L Albumin 3.2 L Triglycerides HDL Cholesterol TSH Arterial Blood Glucose Crossmatch 08/06/21 08/06/21 08/07/21 18:14 18:22 04:00 WBC 1.0 L* RBC 2.67 L Hgb 7.0 L Hct 21.8 L MCH 26 L RDW 18.7 H Plt Count 82 L Lymph % (Auto) [place] % (Auto) Lymph # (Auto) Seg Neutrophils % Seg Neuts % (Manual) 16.0 L Lymphocytes % (Manual) 60.0 H Monocytes % (Manual) Eosinophils % (Manual) 11.0 H Basophils % (Manual) 4.0 H Seg Neutrophils # Seg Neutrophils # Man 0.2 L Lymphocytes # (Manual) 0.6 L Monocytes # (Manual) APTT ABG pH 7.565 H POC ABG pCO2 POC ABG pO2 ABG pO2 113.3 H ABG HCO3 29.4 H ABG O2 Saturation ABG Base Excess 6.9 H ABG Hemoglobin 8.3 L ABG Oxyhemoglobin ABG Sodium ABG Potassium ABG Chloride ABG Glucose Oxyhemoglobin Carboxyhemoglobin Sodium Potassium Chloride Carbon Dioxide BUN Creatinine Glucose POC Glucose 148 H Calcium Phosphorus ALT Troponin T Total Protein Albumin Triglycerides HDL Cholesterol TSH Arterial Blood Glucose Crossmatch 08/07/21 08/07/21 08/07/21 04:00 04:25 08:30 WBC RBC Hgb Hct MCH RDW Plt Count Lymph % (Auto) [place] % (Auto) Lymph # (Auto) Seg Neutrophils % Seg Neuts % (Manual) Lymphocytes % (Manual) Monocytes % (Manual) Eosinophils % (Manual) Basophils % (Manual) Seg Neutrophils # Seg Neutrophils # Man Lymphocytes # (Manual) Monocytes # (Manual) APTT ABG pH 7.609 H* 7.479 H POC ABG pCO2 POC ABG pO2 ABG pO2 121.4 H 130.2 H ABG HCO3 28.5 H 30.3 H ABG O2 Saturation ABG Base Excess 7.2 H 6.2 H ABG Hemoglobin 10.7 L 8.1 L ABG Oxyhemoglobin ABG Sodium ABG Potassium ABG Chloride ABG Glucose Oxyhemoglobin Carboxyhemoglobin Sodium 133 L Potassium 3.2 L D Chloride 93.9 L Carbon Dioxide BUN 23 H Creatinine 4.3 H Glucose POC Glucose Calcium 8.1 L Phosphorus ALT Troponin T Total Protein Albumin Triglycerides HDL Cholesterol TSH Arterial Blood Glucose Crossmatch 08/07/21 08/07/21 08/07/21 13:18 13:30 15:51 WBC RBC Hgb Hct MCH RDW Plt Count Lymph % (Auto) [place] % (Auto) Lymph # (Auto) Seg Neutrophils % Seg Neuts % (Manual) Lymphocytes % (Manual) Monocytes % (Manual) Eosinophils % (Manual) Basophils % (Manual) Seg Neutrophils # Seg Neutrophils # Man Lymphocytes # (Manual) Monocytes # (Manual) APTT ABG pH POC ABG pCO2 POC ABG pO2 ABG pO2 ABG HCO3 ABG O2 Saturation ABG Base Excess ABG Hemoglobin ABG Oxyhemoglobin ABG Sodium ABG Potassium ABG Chloride ABG Glucose Oxyhemoglobin Carboxyhemoglobin Sodium Potassium Chloride Carbon Dioxide BUN Creatinine Glucose POC Glucose 67 L 58 L Calcium Phosphorus ALT Troponin T Total Protein Albumin Triglycerides HDL Cholesterol TSH 7.070 H Arterial Blood Glucose Crossmatch 08/08/21 08/08/21 08/08/21 04:19 04:26 04:26 WBC RBC Hgb 6.8 L Hct 21.6 L MCH RDW Plt Count 91 L Lymph % (Auto) [place] % (Auto) Lymph # (Auto) Seg Neutrophils % Seg Neuts % (Manual) Lymphocytes % (Manual) Monocytes % (Manual) Eosinophils % (Manual) Basophils % (Manual) Seg Neutrophils # Seg Neutrophils # Man Lymphocytes # (Manual) Monocytes # (Manual) APTT ABG pH 7.545 H POC ABG pCO2 POC ABG pO2 ABG pO2 136.1 H ABG HCO3 27.3 H ABG O2 Saturation ABG Base Excess 4.5 H ABG Hemoglobin 6.9 L ABG Oxyhemoglobin ABG Sodium ABG Potassium ABG Chloride ABG Glucose Oxyhemoglobin Carboxyhemoglobin Sodium 132 L Potassium Chloride 93.5 L Carbon Dioxide BUN Creatinine 3.7 H Glucose POC Glucose Calcium Phosphorus ALT Troponin T Total Protein Albumin Triglycerides HDL Cholesterol TSH Arterial Blood Glucose Crossmatch 08/08/21 08/08/21 08/08/21 09:45 12:23 18:51 WBC RBC Hgb Hct MCH RDW Plt Count Lymph % (Auto) [place] % (Auto) Lymph # (Auto) Seg Neutrophils % Seg Neuts % (Manual) Lymphocytes % (Manual) Monocytes % (Manual) Eosinophils % (Manual) Basophils % (Manual) Seg Neutrophils # Seg Neutrophils # Man Lymphocytes # (Manual) Monocytes # (Manual) APTT ABG pH 7.471 H POC ABG pCO2 POC ABG pO2 71.1 L ABG pO2 ABG HCO3 ABG O2 Saturation ABG Base Excess ABG Hemoglobin ABG Oxyhemoglobin ABG Sodium 128.9 L ABG Potassium ABG Chloride 95.0 L ABG Glucose 64 L Oxyhemoglobin Carboxyhemoglobin Sodium Potassium Chloride Carbon Dioxide BUN Creatinine Glucose POC Glucose 58 L 68 L Calcium Phosphorus ALT Troponin T Total Protein Albumin Triglycerides HDL Cholesterol TSH Arterial Blood Glucose 64 L Crossmatch 08/09/21 08/09/21 08/09/21 04:30 04:33 04:33 WBC 2.4 L RBC 3.16 L Hgb 8.3 L Hct 26.5 L MCH 26 L RDW 18.3 H Plt Count 113 L Lymph % (Auto) [place] % (Auto) Lymph # (Auto) Seg Neutrophils % Seg Neuts % (Manual) Lymphocytes % (Manual) Monocytes % (Manual) Eosinophils % (Manual) Basophils % (Manual) Seg Neutrophils # Seg Neutrophils # Man Lymphocytes # (Manual) Monocytes # (Manual) APTT ABG pH POC ABG pCO2 POC ABG pO2 ABG pO2 91.5 H ABG HCO3 26.6 H ABG O2 Saturation ABG Base Excess ABG Hemoglobin 9.0 L ABG Oxyhemoglobin ABG Sodium ABG Potassium ABG Chloride ABG Glucose Oxyhemoglobin Carboxyhemoglobin Sodium 129 L Potassium Chloride 91.9 L Carbon Dioxide BUN 22 H Creatinine 4.7 H Glucose POC Glucose Calcium Phosphorus ALT Troponin T Total Protein Albumin Triglycerides HDL Cholesterol TSH Arterial Blood Glucose Crossmatch 08/10/21 08/10/21 08/10/21 04:00 04:00 04:55 WBC 3.3 L RBC 3.32 L Hgb 8.9 L Hct 27.6 L MCH 27 L RDW 18.3 H Plt Count Lymph % (Auto) [place] % (Auto) Lymph # (Auto) Seg Neutrophils % Seg Neuts % (Manual) Lymphocytes % (Manual) Monocytes % (Manual) 9.0 H Eosinophils % (Manual) Basophils % (Manual) Seg Neutrophils # Seg Neutrophils # Man Lymphocytes # (Manual) 0.6 L Monocytes # (Manual) APTT ABG pH POC ABG pCO2 POC ABG pO2 ABG pO2 ABG HCO3 ABG O2 Saturation ABG Base Excess ABG Hemoglobin 9.6 L ABG Oxyhemoglobin ABG Sodium 120.3 L ABG Potassium 5.2 H ABG Chloride 88.0 L ABG Glucose Oxyhemoglobin Carboxyhemoglobin 0.4 L Sodium 123 L Potassium 5.5 H D Chloride 84.8 L Carbon Dioxide BUN 30 H Creatinine 5.5 H Glucose 139 H POC Glucose Calcium Phosphorus 5.90 H ALT Troponin T Total Protein Albumin Triglycerides HDL Cholesterol TSH Arterial Blood Glucose Crossmatch 08/10/21 08/11/21 08/11/21 12:17 04:00 05:53 WBC RBC 3.50 L Hgb 9.2 L Hct 29.0 L MCH 26 L RDW 18.4 H Plt Count Lymph % (Auto) [place] % (Auto) Lymph # (Auto) Seg Neutrophils % Seg Neuts % (Manual) 76.0 H Lymphocytes % (Manual) 8.0 L Monocytes % (Manual) 13.0 H Eosinophils % (Manual) Basophils % (Manual) Seg Neutrophils # Seg Neutrophils # Man Lymphocytes # (Manual) 0.6 L Monocytes # (Manual) 0.9 H APTT ABG pH POC ABG pCO2 POC ABG pO2 ABG pO2 ABG HCO3 ABG O2 Saturation ABG Base Excess ABG Hemoglobin ABG Oxyhemoglobin ABG Sodium ABG Potassium ABG Chloride ABG Glucose Oxyhemoglobin Carboxyhemoglobin Sodium 128 L Potassium Chloride 90.3 L Carbon Dioxide BUN 24 H Creatinine 4.3 H Glucose 135 H POC Glucose 142 H Calcium Phosphorus ALT Troponin T Total Protein Albumin Triglycerides HDL Cholesterol TSH Arterial Blood Glucose Crossmatch 08/11/21 08/12/21 08/12/21 16:39 05:23 05:23 WBC RBC 3.20 L Hgb 8.8 L Hct 26.7 L MCH RDW 18.6 H Plt Count Lymph % (Auto) [place] % (Auto) Lymph # (Auto) Seg Neutrophils % Seg Neuts % (Manual) Lymphocytes % (Manual) Monocytes % (Manual) Eosinophils % (Manual) Basophils % (Manual) Seg Neutrophils # Seg Neutrophils # Man Lymphocytes # (Manual) Monocytes # (Manual) APTT ABG pH POC ABG pCO2 POC ABG pO2 ABG pO2 ABG HCO3 ABG O2 Saturation ABG Base Excess ABG Hemoglobin ABG Oxyhemoglobin ABG Sodium ABG Potassium ABG Chloride ABG Glucose Oxyhemoglobin Carboxyhemoglobin Sodium 125 L Potassium Chloride 86.6 L Carbon Dioxide 21 L BUN 34 H Creatinine 5.0 H Glucose 111 H POC Glucose 112 H Calcium Phosphorus ALT Troponin T Total Protein Albumin Triglycerides HDL Cholesterol TSH Arterial Blood Glucose Crossmatch 08/12/21 08/12/21 08/13/21 12:18 17:56 06:01 WBC RBC Hgb Hct MCH RDW Plt Count Lymph % (Auto) [place] % (Auto) Lymph # (Auto) Seg Neutrophils % Seg Neuts % (Manual) Lymphocytes % (Manual) Monocytes % (Manual) Eosinophils % (Manual) Basophils % (Manual) Seg Neutrophils # Seg Neutrophils # Man Lymphocytes # (Manual) Monocytes # (Manual) APTT ABG pH POC ABG pCO2 POC ABG pO2 ABG pO2 ABG HCO3 ABG O2 Saturation ABG Base Excess ABG Hemoglobin ABG Oxyhemoglobin ABG Sodium ABG Potassium ABG Chloride ABG Glucose Oxyhemoglobin Carboxyhemoglobin Sodium Potassium Chloride Carbon Dioxide BUN Creatinine Glucose POC Glucose 140 H 119 H 110 H Calcium Phosphorus ALT Troponin T Total Protein Albumin Triglycerides HDL Cholesterol TSH Arterial Blood Glucose Crossmatch 08/13/21 08/13/21 08/14/21 Unknown Unknown 04:00 WBC RBC Hgb Hct MCH RDW Plt Count Lymph % (Auto) [place] % (Auto) Lymph # (Auto) Seg Neutrophils % Seg Neuts % (Manual) Lymphocytes % (Manual) Monocytes % (Manual) Eosinophils % (Manual) Basophils % (Manual) Seg Neutrophils # Seg Neutrophils # Man Lymphocytes # (Manual) Monocytes # (Manual) APTT ABG pH POC ABG pCO2 POC ABG pO2 ABG pO2 ABG HCO3 ABG O2 Saturation ABG Base Excess ABG Hemoglobin ABG Oxyhemoglobin ABG Sodium ABG Potassium ABG Chloride ABG Glucose Oxyhemoglobin Carboxyhemoglobin Sodium 129 L 128 L Potassium Chloride 90.1 L 89.7 L Carbon Dioxide BUN 24 H 36 H Creatinine 3.8 H 4.2 H Glucose POC Glucose Calcium Phosphorus ALT Troponin T Total Protein Albumin Triglycerides 399 H HDL Cholesterol TSH Arterial Blood Glucose Crossmatch 08/14/21 08/14/21 08/14/21 05:44 11:57 13:12 WBC RBC Hgb Hct MCH RDW Plt Count Lymph % (Auto) [place] % (Auto) Lymph # (Auto) Seg Neutrophils % Seg Neuts % (Manual) Lymphocytes % (Manual) Monocytes % (Manual) Eosinophils % (Manual) Basophils % (Manual) Seg Neutrophils # Seg Neutrophils # Man Lymphocytes # (Manual) Monocytes # (Manual) APTT ABG pH 7.498 H POC ABG pCO2 29.1 L POC ABG pO2 61.8 L ABG pO2 ABG HCO3 ABG O2 Saturation ABG Base Excess ABG Hemoglobin 8.6 L ABG Oxyhemoglobin 91.9 L ABG Sodium 126.4 L ABG Potassium ABG Chloride 92.0 L ABG Glucose 99 H Oxyhemoglobin Carboxyhemoglobin Sodium Potassium Chloride Carbon Dioxide BUN Creatinine Glucose POC Glucose 111 H 111 H Calcium Phosphorus ALT Troponin T Total Protein Albumin Triglycerides HDL Cholesterol TSH Arterial Blood Glucose 99 H Crossmatch 08/14/21 08/15/21 08/15/21 Unknown 04:34 04:34 WBC RBC 3.14 L 2.79 L Hgb 8.5 L 7.8 L Hct 25.5 L 22.8 L MCH 27 L RDW 19.1 H 18.8 H Plt Count Lymph % (Auto) [place] % (Auto) Lymph # (Auto) Seg Neutrophils % Seg Neuts % (Manual) Lymphocytes % (Manual) Monocytes % (Manual) Eosinophils % (Manual) Basophils % (Manual) Seg Neutrophils # Seg Neutrophils # Man Lymphocytes # (Manual) Monocytes # (Manual) APTT ABG pH POC ABG pCO2 POC ABG pO2 ABG pO2 ABG HCO3 ABG O2 Saturation ABG Base Excess ABG Hemoglobin ABG Oxyhemoglobin ABG Sodium ABG Potassium ABG Chloride ABG Glucose Oxyhemoglobin Carboxyhemoglobin Sodium 128 L Potassium Chloride 88.8 L Carbon Dioxide BUN 44 H Creatinine 5.1 H Glucose POC Glucose Calcium Phosphorus ALT Troponin T Total Protein Albumin Triglycerides HDL Cholesterol TSH Arterial Blood Glucose Crossmatch 08/15/21 08/15/21 08/15/21 05:22 10:56 16:52 WBC RBC Hgb Hct MCH RDW Plt Count Lymph % (Auto) [place] % (Auto) Lymph # (Auto) Seg Neutrophils % Seg Neuts % (Manual) Lymphocytes % (Manual) Monocytes % (Manual) Eosinophils % (Manual) Basophils % (Manual) Seg Neutrophils # Seg Neutrophils # Man Lymphocytes # (Manual) Monocytes # (Manual) APTT ABG pH 7.496 H POC ABG pCO2 29.8 L POC ABG pO2 ABG pO2 ABG HCO3 ABG O2 Saturation ABG Base Excess ABG Hemoglobin 7.4 L ABG Oxyhemoglobin ABG Sodium 124.3 L ABG Potassium ABG Chloride 92.0 L ABG Glucose Oxyhemoglobin Carboxyhemoglobin Sodium Potassium Chloride Carbon Dioxide BUN Creatinine Glucose POC Glucose 111 H 115 H Calcium Phosphorus ALT Troponin T Total Protein Albumin Triglycerides HDL Cholesterol TSH Arterial Blood Glucose Crossmatch 08/16/21 08/16/21 08/16/21 04:00 04:00 10:57 WBC RBC 2.96 L Hgb 8.0 L Hct 23.9 L MCH 27 L RDW 18.6 H Plt Count Lymph % (Auto) [place] % (Auto) Lymph # (Auto) Seg Neutrophils % Seg Neuts % (Manual) Lymphocytes % (Manual) Monocytes % (Manual) Eosinophils % (Manual) Basophils % (Manual) Seg Neutrophils # Seg Neutrophils # Man Lymphocytes # (Manual) Monocytes # (Manual) APTT ABG pH POC ABG pCO2 POC ABG pO2 ABG pO2 ABG HCO3 ABG O2 Saturation ABG Base Excess ABG Hemoglobin ABG Oxyhemoglobin ABG Sodium ABG Potassium ABG Chloride ABG Glucose Oxyhemoglobin Carboxyhemoglobin Sodium 132 L Potassium Chloride 93.1 L Carbon Dioxide BUN 26 H Creatinine 3.9 H Glucose 119 H POC Glucose 112 H Calcium Phosphorus ALT Troponin T Total Protein Albumin Triglycerides HDL Cholesterol TSH Arterial Blood Glucose Crossmatch 08/16/21 08/17/21 08/17/21 23:20 04:00 04:00 WBC RBC 3.07 L Hgb 8.1 L Hct 25.0 L MCH 26 L RDW 19.3 H Plt Count Lymph % (Auto) [place] % (Auto) Lymph # (Auto) Seg Neutrophils % Seg Neuts % (Manual) Lymphocytes % (Manual) Monocytes % (Manual) Eosinophils % (Manual) Basophils % (Manual) Seg Neutrophils # Seg Neutrophils # Man Lymphocytes # (Manual) Monocytes # (Manual) APTT ABG pH POC ABG pCO2 POC ABG pO2 ABG pO2 ABG HCO3 ABG O2 Saturation ABG Base Excess ABG Hemoglobin ABG Oxyhemoglobin ABG Sodium ABG Potassium ABG Chloride ABG Glucose Oxyhemoglobin Carboxyhemoglobin Sodium 135 L Potassium Chloride 97.4 L Carbon Dioxide BUN 20 H Creatinine 3.0 H Glucose 171 H POC Glucose 125 H Calcium Phosphorus ALT Troponin T Total Protein Albumin Triglycerides HDL Cholesterol TSH Arterial Blood Glucose Crossmatch 08/17/21 08/17/21 08/17/21 05:09 05:12 11:46 WBC RBC Hgb Hct MCH RDW Plt Count Lymph % (Auto) [place] % (Auto) Lymph # (Auto) Seg Neutrophils % Seg Neuts % (Manual) Lymphocytes % (Manual) Monocytes % (Manual) Eosinophils % (Manual) Basophils % (Manual) Seg Neutrophils # Seg Neutrophils # Man Lymphocytes # (Manual) Monocytes # (Manual) APTT ABG pH 7.579 H POC ABG pCO2 27.0 L POC ABG pO2 139.0 H ABG pO2 ABG HCO3 ABG O2 Saturation ABG Base Excess ABG Hemoglobin 8.1 L ABG Oxyhemoglobin 98.3 H ABG Sodium 132.1 L ABG Potassium ABG Chloride ABG Glucose 160 H Oxyhemoglobin Carboxyhemoglobin Sodium Potassium Chloride Carbon Dioxide BUN Creatinine Glucose POC Glucose 155 H 170 H Calcium Phosphorus ALT Troponin T Total Protein Albumin Triglycerides HDL Cholesterol TSH Arterial Blood Glucose 160 H Crossmatch 08/17/21 08/18/21 08/18/21 17:41 00:21 04:00 WBC RBC 2.82 L Hgb 7.5 L Hct 22.7 L MCH 27 L RDW 18.9 H Plt Count Lymph % (Auto) [place] % (Auto) Lymph # (Auto) Seg Neutrophils % Seg Neuts % (Manual) Lymphocytes % (Manual) Monocytes % (Manual) Eosinophils % (Manual) Basophils % (Manual) Seg Neutrophils # Seg Neutrophils # Man Lymphocytes # (Manual) Monocytes # (Manual) APTT ABG pH POC ABG pCO2 POC ABG pO2 ABG pO2 ABG HCO3 ABG O2 Saturation ABG Base Excess ABG Hemoglobin ABG Oxyhemoglobin ABG Sodium ABG Potassium ABG Chloride ABG Glucose Oxyhemoglobin Carboxyhemoglobin Sodium Potassium Chloride Carbon Dioxide BUN Creatinine Glucose POC Glucose 150 H 152 H Calcium Phosphorus ALT Troponin T Total Protein Albumin Triglycerides HDL Cholesterol TSH Arterial Blood Glucose Crossmatch 08/18/21 08/18/21 08/18/21 04:00 05:38 11:58 WBC RBC Hgb Hct MCH RDW Plt Count Lymph % (Auto) [place] % (Auto) Lymph # (Auto) Seg Neutrophils % Seg Neuts % (Manual) Lymphocytes % (Manual) Monocytes % (Manual) Eosinophils % (Manual) Basophils % (Manual) Seg Neutrophils # Seg Neutrophils # Man Lymphocytes # (Manual) Monocytes # (Manual) APTT ABG pH POC ABG pCO2 POC ABG pO2 ABG pO2 ABG HCO3 ABG O2 Saturation ABG Base Excess ABG Hemoglobin ABG Oxyhemoglobin ABG Sodium ABG Potassium ABG Chloride ABG Glucose Oxyhemoglobin Carboxyhemoglobin Sodium 132 L Potassium Chloride 94.8 L Carbon Dioxide BUN 36 H Creatinine 4.0 H Glucose 168 H POC Glucose 158 H 139 H Calcium Phosphorus ALT Troponin T Total Protein Albumin Triglycerides HDL Cholesterol TSH Arterial Blood Glucose Crossmatch 08/18/21 08/18/21 08/19/21 16:17 23:11 04:00 WBC RBC 3.09 L Hgb 8.2 L Hct 25.0 L MCH 27 L RDW 19.0 H Plt Count 506 H Lymph % (Auto) [place] % (Auto) Lymph # (Auto) Seg Neutrophils % Seg Neuts % (Manual) Lymphocytes % (Manual) Monocytes % (Manual) Eosinophils % (Manual) Basophils % (Manual) Seg Neutrophils # Seg Neutrophils # Man Lymphocytes # (Manual) Monocytes # (Manual) APTT ABG pH POC ABG pCO2 POC ABG pO2 ABG pO2 ABG HCO3 ABG O2 Saturation ABG Base Excess ABG Hemoglobin ABG Oxyhemoglobin ABG Sodium ABG Potassium ABG Chloride ABG Glucose Oxyhemoglobin Carboxyhemoglobin Sodium Potassium Chloride Carbon Dioxide BUN Creatinine Glucose POC Glucose 126 H 170 H Calcium Phosphorus ALT Troponin T Total Protein Albumin Triglycerides HDL Cholesterol TSH Arterial Blood Glucose Crossmatch 08/19/21 08/19/21 08/19/21 04:00 05:17 12:34 WBC RBC Hgb Hct MCH RDW Plt Count Lymph % (Auto) [place] % (Auto) Lymph # (Auto) Seg Neutrophils % Seg Neuts % (Manual) Lymphocytes % (Manual) Monocytes % (Manual) Eosinophils % (Manual) Basophils % (Manual) Seg Neutrophils # Seg Neutrophils # Man Lymphocytes # (Manual) Monocytes # (Manual) APTT ABG pH POC ABG pCO2 POC ABG pO2 ABG pO2 ABG HCO3 ABG O2 Saturation ABG Base Excess ABG Hemoglobin ABG Oxyhemoglobin ABG Sodium ABG Potassium ABG Chloride ABG Glucose Oxyhemoglobin Carboxyhemoglobin Sodium 135 L Potassium Chloride 94.4 L Carbon Dioxide BUN 53 H Creatinine 4.5 H Glucose 125 H POC Glucose 113 H 130 H Calcium Phosphorus ALT Troponin T Total Protein Albumin Triglycerides HDL Cholesterol TSH Arterial Blood Glucose Crossmatch 08/19/21 08/20/21 08/20/21 23:30 04:25 05:11 WBC RBC Hgb Hct MCH RDW Plt Count Lymph % (Auto) [place] % (Auto) Lymph # (Auto) Seg Neutrophils % Seg Neuts % (Manual) Lymphocytes % (Manual) Monocytes % (Manual) Eosinophils % (Manual) Basophils % (Manual) Seg Neutrophils # Seg Neutrophils # Man Lymphocytes # (Manual) Monocytes # (Manual) APTT ABG pH 7.508 H POC ABG pCO2 POC ABG pO2 139.8 H ABG pO2 ABG HCO3 ABG O2 Saturation ABG Base Excess ABG Hemoglobin 8.2 L ABG Oxyhemoglobin 98.3 H ABG Sodium 129.8 L ABG Potassium ABG Chloride 96.0 L ABG Glucose 162 H Oxyhemoglobin Carboxyhemoglobin Sodium Potassium Chloride Carbon Dioxide BUN Creatinine Glucose POC Glucose 155 H 140 H Calcium Phosphorus ALT Troponin T Total Protein Albumin Triglycerides HDL Cholesterol TSH Arterial Blood Glucose 162 H Crossmatch 08/20/21 08/20/21 08/20/21 06:08 06:08 17:43 WBC RBC 2.90 L Hgb 7.9 L Hct 23.6 L MCH 27 L RDW 18.6 H Plt Count Lymph % (Auto) [place] % (Auto) Lymph # (Auto) Seg Neutrophils % Seg Neuts % (Manual) Lymphocytes % (Manual) Monocytes % (Manual) Eosinophils % (Manual) Basophils % (Manual) Seg Neutrophils # Seg Neutrophils # Man Lymphocytes # (Manual) Monocytes # (Manual) APTT ABG pH POC ABG pCO2 POC ABG pO2 ABG pO2 ABG HCO3 ABG O2 Saturation ABG Base Excess ABG Hemoglobin ABG Oxyhemoglobin ABG Sodium ABG Potassium ABG Chloride ABG Glucose Oxyhemoglobin Carboxyhemoglobin Sodium 133 L Potassium Chloride 93.9 L Carbon Dioxide BUN 31 H Creatinine 3.3 H Glucose 148 H POC Glucose 157 H Calcium Phosphorus ALT Troponin T Total Protein Albumin Triglycerides 433 H HDL Cholesterol TSH Arterial Blood Glucose Crossmatch 08/21/21 08/21/21 08/21/21 00:21 05:12 08:15 WBC RBC Hgb Hct MCH RDW Plt Count Lymph % (Auto) [place] % (Auto) Lymph # (Auto) Seg Neutrophils % Seg Neuts % (Manual) Lymphocytes % (Manual) Monocytes % (Manual) Eosinophils % (Manual) Basophils % (Manual) Seg Neutrophils # Seg Neutrophils # Man Lymphocytes # (Manual) Monocytes # (Manual) APTT ABG pH POC ABG pCO2 POC ABG pO2 ABG pO2 ABG HCO3 ABG O2 Saturation ABG Base Excess ABG Hemoglobin ABG Oxyhemoglobin ABG Sodium ABG Potassium ABG Chloride ABG Glucose Oxyhemoglobin Carboxyhemoglobin Sodium 134 L Potassium Chloride 94.9 L Carbon Dioxide BUN 42 H Creatinine 4.0 H Glucose 208 H POC Glucose 153 H 139 H Calcium Phosphorus ALT Troponin T Total Protein Albumin Triglycerides HDL Cholesterol TSH Arterial Blood Glucose Crossmatch 08/21/21 08/21/21 08/21/21 08:15 08:18 11:34 WBC RBC 2.90 L Hgb 7.7 L Hct 23.5 L MCH 27 L RDW 18.9 H Plt Count Lymph % (Auto) [place] % (Auto) Lymph # (Auto) Seg Neutrophils % Seg Neuts % (Manual) Lymphocytes % (Manual) Monocytes % (Manual) Eosinophils % (Manual) Basophils % (Manual) Seg Neutrophils # Seg Neutrophils # Man Lymphocytes # (Manual) Monocytes # (Manual) APTT ABG pH POC ABG pCO2 POC ABG pO2 ABG pO2 ABG HCO3 ABG O2 Saturation ABG Base Excess ABG Hemoglobin ABG Oxyhemoglobin ABG Sodium ABG Potassium ABG Chloride ABG Glucose Oxyhemoglobin Carboxyhemoglobin Sodium Potassium Chloride Carbon Dioxide BUN Creatinine Glucose POC Glucose 187 H Calcium Phosphorus ALT Troponin T Total Protein 6.0 L Albumin 2.6 L Triglycerides HDL Cholesterol TSH Arterial Blood Glucose Crossmatch 08/21/21 08/21/21 08/22/21 15:55 23:16 05:02 WBC RBC Hgb Hct MCH RDW Plt Count Lymph % (Auto) [place] % (Auto) Lymph # (Auto) Seg Neutrophils % Seg Neuts % (Manual) Lymphocytes % (Manual) Monocytes % (Manual) Eosinophils % (Manual) Basophils % (Manual) Seg Neutrophils # Seg Neutrophils # Man Lymphocytes # (Manual) Monocytes # (Manual) APTT ABG pH POC ABG pCO2 POC ABG pO2 ABG pO2 ABG HCO3 ABG O2 Saturation ABG Base Excess ABG Hemoglobin ABG Oxyhemoglobin ABG Sodium ABG Potassium ABG Chloride ABG Glucose Oxyhemoglobin Carboxyhemoglobin Sodium Potassium Chloride Carbon Dioxide BUN Creatinine Glucose POC Glucose 173 H 178 H 145 H Calcium Phosphorus ALT Troponin T Total Protein Albumin Triglycerides HDL Cholesterol TSH Arterial Blood Glucose Crossmatch 08/22/21 08/22/21 08/22/21 11:44 16:02 23:50 WBC RBC Hgb Hct MCH RDW Plt Count Lymph % (Auto) [place] % (Auto) Lymph # (Auto) Seg Neutrophils % Seg Neuts % (Manual) Lymphocytes % (Manual) Monocytes % (Manual) Eosinophils % (Manual) Basophils % (Manual) Seg Neutrophils # Seg Neutrophils # Man Lymphocytes # (Manual) Monocytes # (Manual) APTT ABG pH POC ABG pCO2 POC ABG pO2 ABG pO2 ABG HCO3 ABG O2 Saturation ABG Base Excess ABG Hemoglobin ABG Oxyhemoglobin ABG Sodium ABG Potassium ABG Chloride ABG Glucose Oxyhemoglobin Carboxyhemoglobin Sodium Potassium Chloride Carbon Dioxide BUN Creatinine Glucose POC Glucose 211 H 156 H 200 H Calcium Phosphorus ALT Troponin T Total Protein Albumin Triglycerides HDL Cholesterol TSH Arterial Blood Glucose Crossmatch 08/23/21 08/23/21 08/23/21 04:35 04:35 05:08 WBC 13.5 H RBC Hgb Hct MCH 26 L RDW 19.6 H Plt Count Lymph % (Auto) [place] % (Auto) Lymph # (Auto) Seg Neutrophils % Seg Neuts % (Manual) Lymphocytes % (Manual) Monocytes % (Manual) Eosinophils % (Manual) Basophils % (Manual) Seg Neutrophils # Seg Neutrophils # Man Lymphocytes # (Manual) Monocytes # (Manual) APTT ABG pH POC ABG pCO2 POC ABG pO2 ABG pO2 ABG HCO3 ABG O2 Saturation ABG Base Excess ABG Hemoglobin ABG Oxyhemoglobin ABG Sodium ABG Potassium ABG Chloride ABG Glucose Oxyhemoglobin Carboxyhemoglobin Sodium 132 L Potassium Chloride 94.6 L Carbon Dioxide 21 L BUN 60 H Creatinine 4.3 H Glucose 174 H POC Glucose 154 H Calcium Phosphorus ALT Troponin T Total Protein Albumin Triglycerides HDL Cholesterol TSH Arterial Blood Glucose Crossmatch 08/23/21 08/23/21 08/23/21 12:00 17:13 23:57 WBC RBC Hgb Hct MCH RDW Plt Count Lymph % (Auto) [place] % (Auto) Lymph # (Auto) Seg Neutrophils % Seg Neuts % (Manual) Lymphocytes % (Manual) Monocytes % (Manual) Eosinophils % (Manual) Basophils % (Manual) Seg Neutrophils # Seg Neutrophils # Man Lymphocytes # (Manual) Monocytes # (Manual) APTT ABG pH POC ABG pCO2 POC ABG pO2 ABG pO2 ABG HCO3 ABG O2 Saturation ABG Base Excess ABG Hemoglobin ABG Oxyhemoglobin ABG Sodium ABG Potassium ABG Chloride ABG Glucose Oxyhemoglobin Carboxyhemoglobin Sodium Potassium Chloride Carbon Dioxide BUN Creatinine Glucose POC Glucose 172 H 181 H 145 H Calcium Phosphorus ALT Troponin T Total Protein Albumin Triglycerides HDL Cholesterol TSH Arterial Blood Glucose Crossmatch 08/24/21 08/24/21 08/24/21 05:20 05:20 11:33 WBC 20.5 H RBC 3.44 L Hgb 8.8 L D Hct 28.2 L D MCH 26 L RDW 19.9 H Plt Count 468 H Lymph % (Auto) [place] % (Auto) Lymph # (Auto) Seg Neutrophils % Seg Neuts % (Manual) Lymphocytes % (Manual) Monocytes % (Manual) Eosinophils % (Manual) Basophils % (Manual) Seg Neutrophils # Seg Neutrophils # Man Lymphocytes # (Manual) Monocytes # (Manual) APTT ABG pH POC ABG pCO2 POC ABG pO2 ABG pO2 ABG HCO3 ABG O2 Saturation ABG Base Excess ABG Hemoglobin ABG Oxyhemoglobin ABG Sodium ABG Potassium ABG Chloride ABG Glucose Oxyhemoglobin Carboxyhemoglobin Sodium Potassium Chloride 95.1 L Carbon Dioxide BUN 43 H Creatinine 3.4 H Glucose POC Glucose 190 H Calcium Phosphorus ALT Troponin T Total Protein Albumin Triglycerides HDL Cholesterol TSH Arterial Blood Glucose Crossmatch 08/24/21 08/24/21 08/25/21 15:36 23:45 05:12 WBC 24.8 H RBC 3.59 L Hgb 9.5 L Hct 29.7 L MCH 27 L RDW 19.8 H Plt Count Lymph % (Auto) [place] % (Auto) Lymph # (Auto) Seg Neutrophils % Seg Neuts % (Manual) Lymphocytes % (Manual) Monocytes % (Manual) Eosinophils % (Manual) Basophils % (Manual) Seg Neutrophils # Seg Neutrophils # Man Lymphocytes # (Manual) Monocytes # (Manual) APTT ABG pH POC ABG pCO2 POC ABG pO2 ABG pO2 ABG HCO3 ABG O2 Saturation ABG Base Excess ABG Hemoglobin ABG Oxyhemoglobin ABG Sodium ABG Potassium ABG Chloride ABG Glucose Oxyhemoglobin Carboxyhemoglobin Sodium Potassium Chloride Carbon Dioxide BUN Creatinine Glucose POC Glucose 194 H 157 H Calcium Phosphorus ALT Troponin T Total Protein Albumin Triglycerides HDL Cholesterol TSH Arterial Blood Glucose Crossmatch 08/25/21 08/25/21 05:12 05:46 WBC RBC Hgb Hct MCH RDW Plt Count Lymph % (Auto) [place] % (Auto) Lymph # (Auto) Seg Neutrophils % Seg Neuts % (Manual) Lymphocytes % (Manual) Monocytes % (Manual) Eosinophils % (Manual) Basophils % (Manual) Seg Neutrophils # Seg Neutrophils # Man Lymphocytes # (Manual) Monocytes # (Manual) APTT ABG pH POC ABG pCO2 POC ABG pO2 ABG pO2 ABG HCO3 ABG O2 Saturation ABG Base Excess ABG Hemoglobin ABG Oxyhemoglobin ABG Sodium ABG Potassium ABG Chloride ABG Glucose Oxyhemoglobin Carboxyhemoglobin Sodium Potassium Chloride 93.9 L Carbon Dioxide 20 L BUN 61 H Creatinine 4.4 H Glucose 154 H POC Glucose 156 H Calcium 10.4 H Phosphorus ALT Troponin T Total Protein Albumin Triglycerides HDL Cholesterol TSH Arterial Blood Glucose Crossmatch Allied health notes reviewed: nursing
[2021-08-25] MEDS: amLODIPine 10 MG TAB PO SCH (11:12)
--- NOTE | 2021-08-25 11:14 | Progress Note ---
Assessment and Plan - Patient Problems (1) End stage renal disease on dialysis Current Visit: Yes Status: Chronic Plan to address problem: Cont hemodialysis on a Thursday, Thursday and Thursday schedule. (2) Hypokalemia Current Visit: Yes Status: Acute Plan to address problem: Potassium is back to normal. Follow-up (3) Anemia in end-stage renal disease Current Visit: Yes Status: Acute Plan to address problem: Give erythropoietin on dialysis and follow-up hemoglobin level (4) VT (ventricular tachycardia) Current Visit: Yes Status: Acute Plan to address problem: Continue management by studio manager. Awaiting transfer to [facility] for VT ablation Subjective Date of service: 08/25/21 Principal diagnosis: VT storm, s/p ICD shocks Interval history: Pt awake, alert in no acute distress Objective - Vital Signs Vital signs: Vital Signs - 12hr 08/25/21 08/25/21 08/25/21 00:46 00:59 03:14 Temperature 98.3 F Pulse Rate 72 70 70 Respiratory 40 H 26 H Rate Blood Pressure 230/87 220/111 O2 Sat by Pulse 95 97 Oximetry 08/25/21 08/25/21 08/25/21 04:13 06:12 06:13 Temperature Pulse Rate 82 82 82 Respiratory 44 H Rate Blood Pressure O2 Sat by Pulse 96 Oximetry 08/25/21 08/25/21 08/25/21 08:17 08:39 09:29 Temperature 98.4 F Pulse Rate 70 Respiratory 20 25 H Rate Blood Pressure 191/69 O2 Sat by Pulse 96 100 Oximetry - General Appearance General appearance: well-developed, appears stated age, moderate distress, other (on BIPAP) EENT: ATNC, PERRL, mucous membranes moist Neck: no JVD Respiratory: Present: Decreased Breath Sounds Cardiology: regular, S1S2 Gastrointestinal: normoactive bowel sounds Integumentary: no rash Neurologic: no focal deficit, confused, disoriented - Lab 08/25/21 05:12 08/25/21 05:12 Most recent lab results ABG pH 7.508 (7.320-7.450) H 08/20/21 04:25 ABG pCO2 41.2 mm Hg 08/09/21 04:30 ABG pO2 91.5 mm Hg (80.0-90.0) H 08/09/21 04:30 ABG HCO3 26.6 mmol/L (20.0-26.0) H 08/09/21 04:30 ABG O2 Saturation 99.1 (0-100) 08/20/21 04:25 Calcium 10.4 mg/dL (8.4-10.2) H 08/25/21 05:12 Phosphorus 4.50 mg/dL (2.5-4.5) 08/23/21 04:35 Magnesium 2.00 mg/dL (1.7-2.3) 08/23/21 04:35 Medications & Allergies - Medications Allergies/Adverse Reactions: Allergies No Known Allergies Allergy (Unverified 07/10/21 20:57) Home Medications: Home Medications Medication Instructions Recorded Confirmed Last Taken Type Icosapent Ethyl [Vascepa] 2 gm PO BID 07/12/21 08/24/21 Unknown History Losartan [Cozaar] 25 mg PO BID 07/12/21 08/24/21 Unknown History ALBUTEROL NEB's [Proventil 0.083% 2.5 mg IH Q4HRT PRN nebu 07/15/21 08/24/21 Unknown Rx NEBS] Acetaminophen [Acetaminophen 650 mg ID Q4H PRN supp.rect 07/15/21 08/24/21 Unknown Rx SUPPOS] Acetaminophen [Acetaminophen TAB] 650 mg PO Q4H PRN tablet 07/15/21 08/24/21 Unknown Rx Amiodarone [Cordarone 200 MG TAB] 200 mg PO BID tablet 07/15/21 08/24/21 Unkno wn Rx AtorvaSTATin [Lipitor] 80 mg PO QHS tablet 07/15/21 08/24/21 Unknown Rx Clopidogrel [Plavix] 75 mg PO QDAY tablet 07/15/21 08/24/21 Unknown Rx Dextrose 50% in Water [D50W (25GM) 50 ml IV Q30MIN PRN syringe 07/15/21 08/24/21 Unknown Rx Syringe] Free Water 60 ml PO Q4HR oral.liqd 07/15/21 08/24/21 Unknown Rx Isosorbide Dinitrate [Isordil] 5 mg PO Q8HR tablet 07/15/21 08/24/21 Unknown Rx Lipase/Protease/Amylase [Pancreaze 1 each FEEDTUBE PRN PRN capsule 07/15/21 08/24/[address] 10,500 Unit] Lispro Insulin [HumaLOG] 0 unit SUB-Q Q6HR units 07/15/21 08/24/21 Unknown Rx Metoprolol [Lopressor TAB] 25 mg PO TID tablet 07/15/21 08/24/21 Unknown Rx Simple Syrup 30 ml FEEDTUBE PRN PRN oral.liqd 07/15/21 08/24/21 Unknown Rx hydrALAZINE [Apresoline INJ] 10 mg IV Q6H PRN vial 07/15/21 08/24/21 Unknown Rx Active Medications: Generic Name Dose Route Start Last Admin Trade Name Freq PRN Reason Stop Dose Admin Acetaminophen 650 mg 08/06/21 16:30 08/06/21 16:30 Acetaminophen 650 Mg Rect Supp ID 650 mg Q6H PRN Administration Pain, Mild (1-3) Albuterol 2.5 mg 08/05/21 20:59 Albuterol 2.5 Mg/3 Ml Nebu IH Q4HRT PRN Shortness Of Breath Amlodipine Besylate 10 mg 08/25/21 10:00 Amlodipine 10 Mg Tab PO DAILY JODI Aspirin 81 mg 08/07/21 10:00 08/25/21 08:46 Aspirin 81 Mg Tab Chew PO 81 mg QDAY JODI Administration Atorvastatin Calcium 80 mg 08/05/21 22:00 08/24/21 21:23 Atorvastatin 40 Mg Tab PO 80 mg QHS JODI Administration Clonidine HCl 0.2 mg 08/24/21 17:00 08/24/21 17:43 Clonidine Tts 0.2 Mg/24 Hr Patch TD 0.2 mg Sa JODI Administration Clopidogrel Bisulfate 75 mg 08/10/21 10:00 08/25/21 08:46 Clopidogrel 75 Mg Tab PO 75 mg QDAY JODI Administration Dextrose 50 ml 08/17/21 18:00 Dextrose 50% In Water (25gm) 50 Ml Syringe IV Q30MIN PRN Hypoglycemia Protocol Famotidine 10 mg 08/09/21 22:00 08/25/21 08:46 Famotidine 10 Mg Tab PO 10 mg BID JODI Administration Haloperidol Lactate 2.5 mg 08/23/21 13:00 08/25/21 06:14 Haloperidol Lactate 5 Mg/1 Ml Inj IV 2.5 mg Q6HR JODI Administration Heparin Sodium (Porcine) 5,000 unit 08/11/21 10:00 08/24/21 21:25 Heparin 5,000 Unit/1 Ml Vial SUB-Q 5,000 unit Q12HR JODI Administration Hydralazine HCl 10 mg 08/06/21 04:21 08/23/21 23:42 Hydralazine 20 Mg/1 Ml Inj IV 10 mg Q6HR PRN Administration Hypertension Hydralazine HCl 100 mg 08/25/21 09:00 08/25/21 08:46 Hydralazine 100 Mg Tab PO 100 mg Q8HR JODI Administration Hydrophilic Ointment 1 applic 08/05/21 17:25 Lip Therapy Vaseline TP Q2HR PRN Dry Lips Sodium Chloride 100 mls @ 999 mls/hr 08/14/21 17:06 Nacl 0.9% IV GLENDY PRN Hypotension Amiodarone HCl 360 mg/ 200 mls @ 16.667 mls/hr 08/23/21 12:00 08/25/21 01:04 Dextrose IV 0.5 mg/min DIRECT JODI 16.667 mls/hr Administration Protocol 0.5 MG/MIN Nicardipine HCl 50 mg/ Sodium 250 mls @ 25 mls/hr 08/25/21 08:00 Chloride IV TITR JODI Protocol 5 MG/HR Insulin Human Regular 0 units 08/17/21 18:00 08/25/21 06:15 Insulin Regular, Human 100 Units/1 Ml SUB-Q Not Given Q6H [facility] Protocol Isosorbide Dinitrate 20 mg 08/11/21 14:00 08/25/21 06:13 Isosorbide Dinitrate 20 Mg Tab PO 20 mg Q8HR JODI Administration Labetalol HCl 20 mg 08/24/21 17:00 08/25/21 06:12 Labetalol 20 Mg/4 Ml Inj IV 20 mg Q2HR PRN Administration Hypertension Lorazepam 1 mg 08/23/21 12:14 08/24/21 10:37 Lorazepam 2 Mg/Ml Vial IV 1 mg Q4H PRN Administration Agitation Losartan Potassium 100 mg 08/12/21 10:00 08/25/21 08:46 Losartan 25 Mg Tab PO 100 mg DAILY JODI Administration Methylprednisolone Sodium Succinate 40 mg 08/25/21 00:00 08/25/21 00:55 Methylprednisolone Sod Succinate 40 Mg/1 Ml Inj IV 40 mg Q8H JODI Administration Metoclopramide HCl 5 mg 08/05/21 21:03 Metoclopramide 10 Mg/2 Ml Inj IV Q6H PRN Nausea And Vomiting Metoprolol Tartrate 100 mg 08/24/21 14:00 08/25/21 08:46 Metoprolol Tartrate 50 Mg Tab PO 100 mg TID JODI Administration Multi-Ingred Cream/Lotion/Oil/Oint 1 applic 08/05/21 17:25 Mineral Oil/Petrolatum, White Ophth Oint 3.5 Gm OU Q4HR PRN Dry Eye(s) Ondansetron HCl 4 mg 08/05/21 21:03 Ondansetron 4 Mg/2 Ml Inj IV Q8H PRN Nausea And Vomiting Oxycodone/Acetaminophen 1 tab 08/05/21 21:03 08/22/21 01:52 Oxycodone /Acetaminophen 5-325mg Tab PO 1 tab Q6H PRN Administration Pain, Moderate (4-6) Senna 8.8 mg 08/07/21 13:00 08/24/21 22:00 Sennosides Oral Liqd 8.8 Mg/5 Ml Oral Liqd FEEDTUBE 8.8 mg BID JODI Administration Sodium Chloride 10 ml 08/05/21 22:00 08/24/21 21:25 Sodium Chloride 0.9% 10 Ml Flush Syringe IV 10 ml BID JODI Administration Sodium Chloride 10 ml 08/05/21 21:03 Sodium Chloride 0.9% 10 Ml Flush Syringe IV PRN PRN LINE FLUSH
[2021-08-25] MEDS ORDERED: HALOPERIDOL LACTATE 5 MG/1 ML INJ IV PRN (12:00)
[2021-08-25] MEDS: SENNOSIDES ORAL LIQD 8.8 MG/5 ML ORAL LIQD FEEDTUBE SCH (12:17)
[2021-08-25] MEDS: HEPARIN 5,000 UNIT/1 ML VIAL SUB-Q SCH ×2 (12:18→21:04)
--- NOTE | 2021-08-25 12:19 | XRay Report ---
XR chest 1V ap INDICATION / CLINICAL INFORMATION: resp distress. COMPARISON: Radiograph from yesterday. FINDINGS: SUPPORT DEVICES: Unchanged. HEART /PULMONARY VASCULATURE: Unchanged. LUNGS / PLEURA: Moderate bilateral parenchymal airspace opacities are increased from prior study. No sizable pleural effusion. No pneumothorax. IMPRESSION: Worsening pulmonary airspace disease. Signer Name: Bill Elaine MD Signed: 08/25/2021 12:14 PM Workstation Name: [email or web address]
--- NOTE | 2021-08-25 13:40 | Progress Note ---
Assessment and Plan Optimize antihypertensive regimen. Will probably convert metoprolol to carvedilol tomorrow. - Patient Problems (1) AICD discharge Current Visit: Yes Status: Acute (2) VT (ventricular tachycardia) Current Visit: Yes Status: Acute (3) Acute respiratory failure Current Visit: Yes Status: Resolved (4) Pneumonia Current Visit: Yes Status: Acute (5) Leucocytosis Current Visit: Yes Status: Acute (6) CAD (coronary artery disease) Current Visit: Yes Status: Chronic Qualifiers: Coronary Disease-Associated Artery/Lesion type: [place] artery (7) Stented coronary artery Current Visit: Yes Status: Chronic (8) Prolonged QT interval Current Visit: Yes Status: Acute (9) AICD (automatic cardioverter/defibrillator) present Current Visit: Yes Status: Chronic (10) End stage renal disease on dialysis Current Visit: Yes Status: Chronic (11) Hypertension Current Visit: Yes Status: Chronic Qualifiers: Hypertension type: primary hypertension Qualified Code(s): I10 - Essential (primary) hypertension Subjective Date of service: 08/25/21 Principal diagnosis: VT storm, s/p ICD shocks Interval history: On bipap. WBC is increasing and chest x-ray appears worse. Objective Vital Signs Temp Pulse Resp BP BP Pulse Ox 08/25/21 12:45 190/74 08/25/21 11:16 189/77 08/25/21 11:15 189/77 08/25/21 09:29 70 25 H 100 08/25/21 08:39 98.4 F 20 96 08/25/21 08:17 191/69 08/25/21 06:13 82 08/25/21 06:12 82 08/25/21 04:13 82 44 H 96 08/25/21 03:14 98.3 F 70 26 H 220/111 97 08/25/21 00:59 70 230/87 08/25/21 00:46 72 40 H 95 08/24/21 23:05 98.2 F 70 24 230/87 99 08/24/21 22:00 95 08/24/21 21:24 70 231/91 08/24/21 21:23 70 231/91 08/24/21 20:40 70 20 / 97 08/24/21 20:12 70 34 H 93 08/24/21 20:00 70 08/24/21 19:11 97.4 F L 70 24 227/94 93 08/24/21 16:25 214/86 08/24/21 15:40 98.9 F 70 22 214/86 92 08/24/21 15:38 98.9 F 72 22 225/152 76 L 08/24/21 14:15 188/63 - Physical Examination General: No Apparent Distress HEENT: Positive: EOMI, Normocephaly, Mucus Membranes Moist, Mucus Membranes Dry Neck: Positive: neck supple, trachea midline. Negative: JVD/HJR Cardiac: Positive: Reg Rate and Rhythm, S1/S2 Lungs: Positive: clear to auscultation Neuro: Positive: Grossly Intact Abdomen: Positive: Soft, Active Bowel Sounds. Negative: Tender Skin: Positive: Clear. Negative: Rash Musculoskeletal: Normal Range of Motion Extremities: Absent: edema - Labs and Meds CBC 08/25/21 Range/Units 05:12 WBC 24.8 H (4.5-11.0) K/mm3 RBC 3.59 L (3.65-5.03) M/mm3 Hgb 9.5 L (10.1-14.3) gm/dl Hct 29.7 L (30.3-42.9) % Plt Count 435 (140-440) K/mm3 Comprehensive Metabolic Panel 08/25/21 Range/Units 05:12 Sodium 137 (137-145) mmol/L Potassium 4.5 (3.6-5.0) mmol/L Chloride 93.9 L (98-107) mmol/L Carbon Dioxide 20 L (22-30) mmol/L BUN 61 H (7-17) mg/dL Creatinine 4.4 H (0.6-1.2) mg/dL Glucose 154 H (65-100) mg/dL Calcium 10.4 H (8.4-10.2) mg/dL - Imaging and Cardiology EKG: report reviewed, image reviewed Echo: report reviewed Cardiac cath: report reviewed - EKG Sinus rhythms and dysrhythmias: sinus rhythm Repolarization changes or abnormalities: Q-T interval prolongation Myocardial infarction: anterior CO (old age or i Pacemaker: atrial pacing w/capture - Allied health notes Allied health notes reviewed: nursing
--- NOTE | 2021-08-25 13:51 | Progress Note ---
Assessment and Plan Assessment and plan: HPI: This is 60-year-old female with ESRD on HD, recurrent AICD discharges, systolic heart failure, V. tach, cardiac arrest, anemia, CAD and HTN who presents to the emergency department from her dialysis center on 08/05 for severe muscle spasms secondary to AICD discharges per patient. She also had questionable seizures in the dialysis center. Patient was started on amiodarone and lidocaine. Patient was intubated for airway protection in the emergency department and work-up also revealed severe hypokalemia. Patient was admitted to the hospital service with consult cardiology, nephrology and CCM. hospital course: 08/06/2021: Patient is sedated, Transfer to [place] arranged 08/07: COVID-19 PCR negative. Patient received hemodialysis today. Off Cardene drip. Patient has been OG tube for p.o. BP medications. Thrombocytopenia persists therefore anticoagulation is held. Patient is leukopenia also. We will continue to trend CBC. Persistent hypoglycemia and D10 drip increased to 30 ml/hr. negative Covid test relayed to [place]. 08/08: 1 unit prbc today, will start TF today. Still awaiting [place] bed. 08/09: awaiting transfer to [place]. TF nearly at goal so anticipate stopping dextrose IVF soon. Midline to be placed 08/10/2021: Received HD today. BP remains elevated therefore started on cardene gtt. Cardiology aware. No beds available yet. 08/11/2021: Cardene gtt infusing, CT head ordered as per nurse patient is not really responding (withdraw/ grimace to pain when off sedation/PERRL/intact cough/gag on PE). 08/12: ANGELINE overnight. Remains on the vent and sedated. On Amio gtt, A-pacing on the monitor, still hypertensive on cardene gtt, home antihypertensive was restarted. Plan for HD this am, hypernatremia too be corrected per Nephro. 08/13: Plan for SAT and SBT this am for possible extubation. Patient remains hypertensive on cardene gtt, clonidine added. 08/14: Patient s/p reintubation by anesthesia. Awake and alert following commands, not on any sedation. Remains hypertensive on amio and cardene gtt. D/w cardio plan to switch to PO Amio and to adjust antihypertensive therapy, hopefully can wean off cardene gtt. Plan to possible transfer patient to [facility] as a way of getting patient into the [place] system for the needed ablation. Case manag ement to arrange 08/15: ANGELINE overnight. Patient remains stable on the vent. Still with uncontrolled hypertension despite meds increased yesterday. Patient remains on cardene gt. Cardio added minoxidil, plan is still to wean off cardene gtt. Plan for HD today 08/16: Self-extubated and was reintubated overnight due to stridor. Now on low dose sedation, following commands. D/w CCM plan to do a cuff leak today and possible start patinet on IV steroids. Since this is X2 failed extubation patient might need to be Trached. Per Case management patient was denied for [facility], no HD beds available. Patient remains on [facility] transfer list for possible inpatient transfer. 08/17: On the vent and om propofol gtt, RASS 0. Hypotensive overnight, will defer to Cardio for possible BP meds adjustment. Pending transfer to [facility]. 08/18: ANGELINE overnight. While awake on propofol gtt, following commands. Tolerated PST yesterday [id number]. Daily PST as tolerated. Pending transfer to [facility] 08/19: no cuff leak noted, may need neck imaging later this week. HD today with removal of 2.5 L. Midline ordered. [place] positional 08/20: Blood pressure medications adjusted due to hypotension, leak test not completed yet. No acute events reported overnight. Precedex drip initiated due to elevated triglycerides and propofol discontinued. 08/21: Patient remains soft with her blood pressures and antihypertensive regimen adjusted again. No cuff leak noted again despite getting FFP yesterday. Remains on Precedex. Started on Seroquel. Will have routine ECG tomorrow. 08/22: RN states that doses of hypertensive regimen have been withheld due to hypotension which has been medicated to cardiology. However per documentation as patient was hypotensive with SBP of 90s for approximately [address] neck completed, CT neck with contrast will be obtained as she is a [facility] HD schedule and cleared with Nephro. Still awaiting transfer to [place]. 08/23: Patient will be transferred to the floor, Precedex weaned off. Failed bedside swallow eval and ST eval ordered but patient was drowsy when they came to assess. Amiodarone drip reinitiated by cardiology due to inability to take p.o. amiodarone. Added as needed labetalol since patient is n.p.o. 08/24: Agree with pccm, will likey need ent once at [place]. Steroids will be changed to 40 q8. BP elevated this AM, labetalol iv on oct....patient cannot take po meds due to failed swallow eval, will follow speech recs. Follow up renal plans. CXR ordered by cardiology will follow. 08/25: Blood pressure poorly controlled overnight as well. in 230's systolic. Patient remains NPO per speech and cannot receive po bp meds. Additionally, labetalol IV alone has not been effective, patient cannot receive vasotec due to renal fx, and hydralazine is on national shortage. Bed availability for [facility] beds currently limits our ability to run cardene gtt. Increased labetalol dose yesterday and added clonidine patch and patient still had poor control. Unfortunately patient developed respiratory distress yesterday and required bipap. Chest x-ray ordered today demosntrates increased interstitial opacities. D/w Dr Felix (pulm) who states this is likely edema precipiated by high bp, recommended continuation of bipap. Patient should remain strict NPO, no crushed meds. Additionally to add nitropaste for improved bp control. Coordinated with Dr. Lorenzo who will initiate dialysis early tomorrow. D/w conveyor line battery charger on 4th floor as well who is aware of today's plan. Neuro: Sedated -s/p precedex -PRN ativan -seroquel increased -Avoid delirium -Per RN [facility] ICU (+) -Reorientation as needed -CT head x2 with no acute findings CV: Recurrent V. tach storm, NSTEMI, h/o s/p AICD implantation, systolic heart failure, V. tach, HTN emergency -Cardiology consulted, appreciate recommendations -S/p lidocaine and Cardene drip -Antihypertensive regimen: hydralazine, isosorbide, cozaar, metoprolol,clonidine (adjust as needed) -Currently n.p.o., as needed labetalol added -s/p Amiodarone drip-> Amio PO -Amiodarone IV started due to inability to take p.o. -Awaiting transfer to [place] -Continue Lipitor, Plavix, ASA Respiratory: Acute Hypoxemic Respiratory Failure -[facility] consulted, appreciate recommendations -Intubated in the ED on 08/05 with a 6.50 ETT at 21 at the lips, extubated 08/14 with reintubation, self extubation 08/16 with reintubation and self extubated on 08/22 -Nasal cannula to room air during the day -BiPAP nightly -obtain CT neck w/ con per [facility] -On hold as patient self extubated and seems stable -Will likely need ENT transfer to tertiary facility -VAP bundle -SPO2 monitoring -Continue steroids GI: Dysphagia -Removal of NG tube with self extubation on 08/22 -Failed bedside swallow evaluation today -ST evaluation ordered-> patient was too lethargic at time of visit, will reassess tomorrow -24 hours +1197 mL -HD today -PPI -BR: Senokot -BM 08/19 : ESRD on HD, hyponatremia, hypochloremia -Nephrology consulted, appreciate recommendations -HD per nephrology -MWF schedule -Avoid nephrotoxic medications -Renally dose medications -Strict intake and output ID: NAD -Monitor WBC and fever curve -Follow-up blood culture x2 and sputum culture -NGTD Heme: Thrombocytosis, Acute on chronic anemia of chronic disease, leukocytosis -S/p 2 unit PRBC -Trend CBC -Transfuse for hemoglobin less than 7 -Epogen per nephrology -Resume DAPT per cards in setting of recent stent -Heparin subq -SCDs to bilateral LE while in bed -Leukocytosis possibly secondary to steroid use Endo: Hypoglycemia (resolved) -S/p D10 for hypoglycemia -Avoid hypoglycemia -Accu-Cheks every 4 Dispo: AWAITING TRANSFER TO [facility] since 08/06/2021 The high probability of a clinically significant, sudden or life threatening de terioration of the [pulmonary] system(s) required my full and direct attention, intervention and personal management. The aggregate critical care time was [60] minutes. This time is in addition to time spent performing reported procedures but includes the following: [x] Data Review and interpretation [x] Patient assessment and monitoring of vital signs [x] Documentation [x] Medication orders and management History Interval history: Elevated bp overnight and resp distress yesterday. on bipap currently 15/8 50%, sats 100%. NAD at the time of my encounter. Hospitalist Physical - Physical exam Narrative exam: Physical Exam: VITAL SIGNS: Reviewed. GENERAL: The patient appears normally developed, Vital signs as documented. BIPAP in place 50% fio2. HEAD: No signs of head trauma. EYES: Pupils are equal. Extraocular motions intact. EARS: Hearing grossly intact. MOUTH: Oropharynx is normal. NECK: No adenopathy, no JVD. CHEST: Chest with clear breath sounds bilaterally. No wheezes, rales, or rhonchi. CARDIAC: Regular rate and rhythm. S1 and S2, without murmurs, gallops, or rubs. VASCULAR: No Edema. Peripheral pulses normal and equal in all extremities. ABDOMEN: Soft, non tender and non distended. No rebound or guarding, and no masses palpated. Bowel Sounds normal. MUSCULOSKELETAL: Good range of motion of all major joints. Extremities without clubbing, cyanosis or edema. NEUROLOGIC EXAM: Alert and oriented x 4. no focal sensory or strength deficits. PSYCHIATRIC: Mood normal. SKIN: detail exam as documented in skin assessment - Constitutional Vitals: Temp Pulse Resp BP Pulse Ox 98.4 F 73 25 H 190/74 100 08/25/21 08:39 08/25/21 13:45 08/25/21 13:45 08/25/21 12:45 08/25/21 13:45 General appearance: Present: no acute distress, other (Intubated and on sedation, RASS 0 ) HEART Score - HEART Score Age: 45-65 Risk factors: > 3 risk factors or hx of atherosclerotic disease Troponin: Troponin T 0.183 ng/mL (0.00-0.029) H* D 08/05/21 18:56 Troponin: 1-3x normal limit - Critical Actions Critical Actions: 4-6 pts:12-16.6% risk of adverse cardiac event. Should be admitted Results - Labs CBC & Chem 7: 08/25/21 05:12 08/25/21 05:12 Labs: Laboratory Last Values WBC 24.8 K/mm3 (4.5-11.0) H 08/25/21 05:12 RBC 3.59 M/mm3 (3.65-5.03) L 08/25/21 05:12 Hgb 9.5 gm/dl (10.1-14.3) L 08/25/21 05:12 Hct 29.7 % (30.3-42.9) L 08/25/21 05:12 MCV 83 fl (79-97) 08/25/21 05:12 MCH 27 pg (28-32) L 08/25/21 05:12 MCHC 32 % (30-34) 08/25/21 05:12 RDW 19.8 % (13.2-15.2) H 08/25/21 05:12 Plt Count 435 K/mm3 (140-440) 08/25/21 05:12 Lymph % (Auto) Dog Handler 08/07/21 04:00 Haines % (Auto) Dog Handler 08/11/21 04:00 Eos % (Auto) 2.2 % (0.0-4.3) 08/06/21 16:35 Baso % (Auto) Dog Handler 08/07/21 04:00 Lymph # (Auto) 0.8 K/mm3 (1.2-5.4) L 08/06/21 16:35 Haines # (Auto) 0.7 K/mm3 (0.0-0.8) 08/06/21 16:35 Eos # (Auto) 0.1 K/mm3 (0.0-0.4) 08/06/21 16:35 Baso # (Auto) 0.1 K/mm3 (0.0-0.1) 08/06/21 16:35 Add Manual Diff Complete 08/11/21 04:00 Total Counted 100 08/11/21 04:00 Seg Neutrophils % Dog Handler 08/25/21 05:12 Seg Neuts % (Manual) 76.0 % (40.0-70.0) H 08/11/21 04:00 Band Neutrophils % 2.0 % 08/11/21 04:00 Lymphocytes % (Manual) 8.0 % (13.4-35.0) L 08/11/21 04:00 Reactive Lymphs % (Man) 5.0 % 08/07/21 04:00 Monocytes % (Manual) 13.0 % (0.0-7.3) H 08/11/21 04:00 Eosinophils % (Manual) 1.0 % (0.0-4.3) 08/10/21 04:00 Basophils % (Manual) 4.0 % (0.0-1.8) H 08/07/21 04:00 Metamyelocytes % 1.0 % 08/11/21 04:00 Nucleated RBC % Not Reportable 08/11/21 04:00 Seg Neutrophils # 2.6 K/mm3 (1.8-7.7) 08/06/21 16:35 Seg Neutrophils # Man 5.2 K/mm3 (1.8-7.7) 08/11/21 04:00 Band Neutrophils # 0.1 K/mm3 08/11/21 04:00 Lymphocytes # (Manual) 0.6 K/mm3 (1.2-5.4) L 08/11/21 04:00 Abs React Lymphs (Man) 0.0 K/mm3 08/11/21 04:00 Monocytes # (Manual) 0.9 K/mm3 (0.0-0.8) H 08/11/21 04:00 Eosinophils # (Manual) 0.0 K/mm3 (0.0-0.4) 08/11/21 04:00 Basophils # (Manual) 0.0 K/mm3 (0.0-0.1) 08/11/21 04:00 Metamyelocytes # 0.1 K/mm3 08/11/21 04:00 Myelocytes # 0.0 K/mm3 08/11/21 04:00 Promyelocytes # 0.0 K/mm3 08/11/21 04:00 Blast Cells # 0.0 K/mm3 08/11/21 04:00 WBC Morphology Not Reportable 08/11/21 04:00 WBC Morphology TNR 08/11/21 04:00 Hypersegmented Neuts Not Reportable 08/11/21 04:00 Hyposegmented Neuts Not Reportable 08/11/21 04:00 Hypogranular Neuts Not Reportable 08/11/21 04:00 Smudge Cells Not Reportable 08/11/21 04:00 Toxic Granulation Not Reportable 08/11/21 04:00 Toxic Vacuolation Not Reportable 08/11/21 04:00 Dohle Bodies Not Reportable 08/11/21 04:00 Pelger-Huet Anomaly Not Reportable 08/11/21 04:00 Claudio Rods Not Reportable 08/11/21 04:00 Platelet Estimate Consistent w auto 08/11/21 04:00 Clumped Platelets Not Reportable 08/11/21 04:00 Plt Clumps, EDTA Not Reportable 08/11/21 04:00 Large Platelets Not Reportable 08/11/21 04:00 Giant Platelets Not Reportable 08/11/21 04:00 Platelet Satelliting Not Reportable 08/11/21 04:00 Plt Morphology Comment Not Reportable 08/11/21 04:00 RBC Morphology Not Reportable 08/11/21 04:00 Dimorphic RBCs Not Reportable 08/11/21 04:00 Polychromasia Not Reportable 08/11/21 04:00 Hypochromasia Few 08/11/21 04:00 Poikilocytosis Not Reportable 08/11/21 04:00 Anisocytosis Not Reportable 08/11/21 04:00 Microcytosis Not Reportable 08/11/21 04:00 Macrocytosis Not Reportable 08/11/21 04:00 Spherocytes Not Reportable 08/11/21 04:00 Pappenheimer Bodies Not Reportable 08/11/21 04:00 Sickle Cells Not Reportable 08/11/21 04:00 Target Cells Few 08/11/21 04:00 Tear Drop Cells Not Reportable 08/11/21 04:00 Ovalocytes Not Reportable 08/11/21 04:00 Helmet Cells Not Reportable 08/11/21 04:00 Diaz-[place] Bodies Not Reportable 08/11/21 04:00 Ashley Rings Not Reportable 08/11/21 04:00 Case Cells Not Reportable 08/11/21 04:00 Bite Cells Not Reportable 08/11/21 04:00 Crenated Cell Not Reportable 08/11/21 04:00 Elliptocytes Not Reportable 08/11/21 04:00 Acanthocytes (Spur) Not Reportable 08/11/21 04:00 Rouleaux Not Reportable 08/11/21 04:00 Hemoglobin C Crystals Not Reportable 08/11/21 04:00 Schistocytes Not Reportable 08/11/21 04:00 Malaria parasites Not Reportable 08/11/21 04:00 Aleks Bodies Not Reportable 08/11/21 04:00 Hem Pathologist Commnt No 08/11/21 04:00 PT 14.2 Sec. (12.2-14.9) 08/06/21 16:35 INR 0.99 (0.87-1.13) 08/06/21 16:35 APTT 37.1 Sec. (24.2-36.6) H 08/06/21 07:26 ABG pH 7.508 (7.320-7.450) H 08/20/21 04:25 POC ABG pCO2 35.1 mmHg (32.0-48.0) 08/20/21 04:25 ABG pCO2 41.2 mm Hg 08/09/21 04:30 POC ABG pO2 139.8 mmHg (83-108) H 08/20/21 04:25 ABG pO2 91.5 mm Hg (80.0-90.0) H 08/09/21 04:30 POC ABG HCO3 27.3 08/20/21 04:25 ABG HCO3 26.6 mmol/L (20.0-26.0) H 08/09/21 04:30 ABG O2 Saturation 99.1 (0-100) 08/20/21 04:25 ABG O2 Content 12.3 (0.0-44) 08/09/21 04:30 POC ABG Base Excess 4.0 08/20/21 04:25 ABG Base Excess 2.0 mmol/L (-2.0-3.0) 08/09/21 04:30 ABG Hemoglobin 8.2 (12.0-17.5) L 08/20/21 04:25 ABG Oxyhemoglobin 98.3 (94-98) H 08/20/21 04:25 ABG Carboxyhemoglobin 1.4 % (0.0-5.0) 08/09/21 04:30 ABG Methemoglobin 0.3 (0.0-1.5) 08/20/21 04:25 ABG Sodium 129.8 mmol/L (136.0-145.0) L 08/20/21 04:25 ABG Potassium 3.7 mmol/L (3.40-4.50) 08/20/21 04:25 ABG Chloride 96.0 mmol/L (98-107) L 08/20/21 04:25 ABG Glucose 162 mg/dL (65-95) H 08/20/21 04:25 Oxyhemoglobin 95.4 % (95.0-99.0) 08/09/21 04:30 Carboxyhemoglobin 0.5 (0.5-1.5) 08/20/21 04:25 FiO2 25 % 08/09/21 04:30 FiO2 % 30.0 08/20/21 04:25 Sodium 137 mmol/L (137-145) 08/25/21 05:12 Potassium 4.5 mmol/L (3.6-5.0) 08/25/21 05:12 Chloride 93.9 mmol/L (98-107) L 08/25/21 05:12 Carbon Dioxide 20 mmol/L (22-30) L 08/25/21 05:12 Anion Gap 28 mmol/L 08/25/21 05:12 BUN 61 mg/dL (7-17) H 08/25/21 05:12 Creatinine 4.4 mg/dL (0.6-1.2) H 08/25/21 05:12 Estimated GFR 12 ml/min 08/25/21 05:12 BUN/Creatinine Ratio 14 % 08/25/21 05:12 Glucose 154 mg/dL (65-100) H 08/25/21 05:12 POC Glucose 169 mg/dL (70-105) H 08/25/21 12:06 Lactic Acid 0.90 mmol/L (0.7-2.0) 08/25/21 09:00 Calcium 10.4 mg/dL (8.4-10.2) H 08/25/21 05:12 Phosphorus 4.50 mg/dL (2.5-4.5) 08/23/21 04:35 Magnesium 2.00 mg/dL (1.7-2.3) 08/23/21 04:35 Total Bilirubin 0.30 mg/dL (0.1-1.2) 08/21/21 08:18 Direct Bilirubin < 0.2 mg/dL (0-0.2) 08/21/21 08:18 Indirect Bilirubin 0.1 mg/dL 08/21/21 08:18 AST 15 units/L (5-40) 08/21/21 08:18 ALT 14 units/L (7-56) 08/21/21 08:18 Alkaline Phosphatase 98 units/L (35-129) 08/21/21 08:18 Troponin T 0.183 ng/mL (0.00-0.029) H* D 08/05/21 18:56 Total Protein 6.0 g/dL (6.3-8.2) L 08/21/21 08:18 Albumin 2.6 g/dL (3.9-5) L 08/21/21 08:18 Albumin/Globulin Ratio 0.8 % 08/21/21 08:18 Triglycerides 433 mg/dL (2-149) H 08/20/21 06:08 Cholesterol 170 mg/dL (50-199) 08/05/21 15:55 LDL Cholesterol Direct 106 mg/dL (50-130) 08/05/21 15:55 HDL Cholesterol 32 mg/dL (40-59) L 08/05/21 15:55 Cholesterol/HDL Ratio 5.31 % 08/05/21 15:55 TSH 7.070 mlU/mL (0.270-4.200) H 08/07/21 13:30 Arterial Blood Glucose 162 mg/dL (65-95) H 08/20/21 04:25 Arterial Blood Ionized Calcium 4.8 mg/dL (4.6-5.3) 08/15/21 05:22 Coronavirus (PCR) Negative (Negative) 08/23/21 08:30 Hepatitis A IgM Ab Non-reactive (NonReactive) 08/08/21 04:26 Hep Bs Antigen Nonreactive (Negative) 08/08/21 04:26 Hep B Core IgM Ab Non-reactive (NonReactive) 08/08/21 04:26 Hepatitis C Antibody Non-reactive (NonReactive) 08/08/21 04:26 Blood Type O POSITIVE 08/20/21 15:29 Antibody Screen TNR 08/20/21 15:29 Crossmatch See Detail 08/06/21 05:30 Garza/IV: Voiding Method Toilet Active Medications - Current Medications Current Medications: Generic Name Dose Route Start Last Admin Trade Name Freq PRN Reason Stop Dose Admin Acetaminophen 650 mg 08/06/21 16:30 08/06/21 16:30 Acetaminophen 650 Mg Rect Supp MA 650 mg Q6H PRN Administration Pain, Mild (1-3) Albuterol 2.5 mg 08/05/21 20:59 Albuterol 2.5 Mg/3 Ml Nebu IH Q4HRT PRN Shortness Of Breath Amlodipine Besylate 10 mg 08/25/21 10:00 08/25/21 11:12 Amlodipine 10 Mg Tab PO 10 mg DAILY JODI Administration Aspirin 81 mg 08/07/21 10:00 08/25/21 12:18 Aspirin 81 Mg Tab Chew PO Not Given QDAY JODI Atorvastatin Calcium 80 mg 08/05/21 22:00 08/24/21 21:23 Atorvastatin 40 Mg Tab PO 80 mg QHS JODI Administration Clonidine HCl 0.2 mg 08/24/21 17:00 08/24/21 17:43 Clonidine Tts 0.2 Mg/24 Hr Patch TD 0.2 mg Sa JODI Administration Clopidogrel Bisulfate 75 mg 08/10/21 10:00 08/25/21 12:17 Clopidogrel 75 Mg Tab PO Not Given QDAY JODI Dextrose 50 ml 08/17/21 18:00 Dextrose 50% In Water (25gm) 50 Ml Syringe IV Q30MIN PRN Hypoglycemia Protocol Famotidine 10 mg 08/09/21 22:00 08/25/21 12:18 Famotidine 10 Mg Tab PO Not Given BID JODI Haloperidol Lactate 2.5 mg 08/25/21 12:00 Haloperidol Lactate 5 Mg/1 Ml Inj IV Q6HR PRN aggitation Heparin Sodium (Porcine) 5,000 unit 08/11/21 10:00 08/25/21 12:18 Heparin 5,000 Unit/1 Ml Vial SUB-Q 5,000 unit Q12HR JODI Administration Hydralazine HCl 10 mg 08/06/21 04:21 08/23/21 23:42 Hydralazine 20 Mg/1 Ml Inj IV 10 mg Q6HR PRN Administration Hypertension Hydralazine HCl 100 mg 08/25/21 09:00 08/25/21 08:46 Hydralazine 100 Mg Tab PO 100 mg Q8HR JODI Administration Hydrophilic Ointment 1 applic 08/05/21 17:25 Lip Therapy Vaseline TP Q2HR PRN Dry Lips Sodium Chloride 100 mls @ 999 mls/hr 08/14/21 17:06 Nacl 0.9% IV GLENDY PRN Hypotension Amiodarone HCl 360 mg/ 200 mls @ 16.667 mls/hr 08/23/21 12:00 08/25/21 12:19 Dextrose IV 0.5 mg/min DIRECT JODI 16.667 mls/hr Administration Protocol 0.5 MG/MIN Nicardipine HCl 50 mg/ Sodium 250 mls @ 25 mls/hr 08/25/21 08:00 Chloride IV TITR JODI Protocol 5 MG/HR Insulin Human Regular 0 units 08/17/21 18:00 08/25/21 12:16 Insulin Regular, Human 100 Units/1 Ml SUB-Q 1 units Q6H JODI Administration Protocol Isosorbide Dinitrate 20 mg 08/11/21 14:00 08/25/21 06:13 Isosorbide Dinitrate 20 Mg Tab PO 20 mg Q8HR JODI Administration Labetalol HCl 20 mg 08/24/21 17:00 08/25/21 11:15 Labetalol 20 Mg/4 Ml Inj IV 20 mg Q2HR PRN Administration Hypertension Lorazepam 1 mg 08/23/21 12:14 08/24/21 10:37 Lorazepam 2 Mg/Ml Vial IV 1 mg Q4H PRN Administration Agitation Losartan Potassium 100 mg 08/12/21 10:00 08/25/21 12:19 Losartan 25 Mg Tab PO Not Given DAILY [facility] Methylprednisolone Sodium Succinate 40 mg 08/25/21 00:00 08/25/21 08:30 Methylprednisolone Sod Succinate 40 Mg/1 Ml Inj IV 40 mg Q8H JODI Administration Metoclopramide HCl 5 mg 08/05/21 21:03 Metoclopramide 10 Mg/2 Ml Inj IV Q6H PRN Nausea And Vomiting Metoprolol Tartrate 100 mg 08/24/21 14:00 08/25/21 08:46 Metoprolol Tartrate 50 Mg Tab PO 100 mg TID JODI Administration Multi-Ingred Cream/Lotion/Oil/Oint 1 applic 08/05/21 17:25 Mineral Oil/Petrolatum, White Ophth Oint 3.5 Gm OU Q4HR PRN Dry Eye(s) Ondansetron HCl 4 mg 08/05/21 21:03 Ondansetron 4 Mg/2 Ml Inj IV Q8H PRN Nausea And Vomiting Oxycodone/Acetaminophen 1 tab 08/05/21 21:03 08/22/21 01:52 Oxycodone /Acetaminophen 5-325mg Tab PO 1 tab Q6H PRN Administration Pain, Moderate (4-6) Senna 8.8 mg 08/07/21 13:00 08/25/21 12:17 Sennosides Oral Liqd 8.8 Mg/5 Ml Oral Liqd FEEDTUBE Not Given BID JODI Sodium Chloride 10 ml 08/05/21 22:00 08/25/21 12:17 Sodium Chloride 0.9% 10 Ml Flush Syringe IV 10 ml BID JODI Administration Sodium Chloride 10 ml 08/05/21 21:03 Sodium Chloride 0.9% 10 Ml Flush Syringe IV PRN PRN LINE FLUSH Nutrition/Malnutrition Assess - Dietary Evaluation Nutrition/Malnutrition Findings: Nutrition Notes Start: 08/07/21 09:12 Freq: Status: Active Protocol: Document 08/19/21 14:47 KALA (Rec: 08/19/21 15:06 KALA [id number]) Nutrition Notes Initial or Follow up Brief Note Current Diet TF-Nepro w/CARBSTEADY @ 32 ml/ hr (since L 08/16). Height 5 ft 2 in Weight 64.25 kg [place] Body Weight (kg) 50.00 BMI 25.9 Weight change and time frame No body weight change reported . Weight Status Overweight Subjective/Other Information RD consult for routine F/U on TF continuation assessment. Pt reintubated and TF continued at the time of conversation with RN. Still waiting for placement at [place]. Percent of energy/protein needs met: Prescribed Nepro w/CARBSTEADY @ 32 ml/hr will provide for energy/protein needs (1,403 Kcal/63 g) 100% Kcal; 82% AA, during LOS. #1 Nutrition Diagnosis Inadequate oral intake Diagnosis Progress(for reassessment Continues documentation) Nutrition Intervention Nutrition Support: Continue Nepro w/CARBSTEADY @ 32 ml/hr. Flush: 50 ml water Q 4 hr until hyponatremia resolves, then 150 ml Q 4 hr. % RDI: 100% Kcal; 82% AA. Goal #1 Provide at least 75% of energy /protein needs through Enteral Feeding during LOS. Follow-Up By: 08/26/21 Additional Comments Continue monitoring TF tolerance, and BM.
[2021-08-25] MEDS ORDERED: NITROGLYCERIN 2% OINT 1 GM TP ONE (13:55)
[2021-08-25] MEDS: hydrALAZINE 20 MG/1 ML INJ IV PRN ×2 (15:02→21:04)
[2021-08-25 15:15] LABS: Anisocytosis 1+; Basophils % (Manual) 0 % (0.0-1.8); Eosinophils % (Manual) 0 % (0.0-4.3); Hypochromasia 1+; Platelet Estimate Consistent w Auto; Total Cells Counted 100
[2021-08-25] MEDS: LORazepam 2 MG/ML VIAL IV PRN (23:34)
[2021-08-26] MEDS: ISOSORBIDE DINITRATE 20 MG TAB PO SCH ×4 (01:12→21:59)
[2021-08-26] MEDS: SENNOSIDES ORAL LIQD 8.8 MG/5 ML ORAL LIQD FEEDTUBE SCH ×3 (01:13→21:00)
[2021-08-26] MEDS: FAMOTIDINE 10 MG TAB PO SCH ×3 (01:13→21:59)
[2021-08-26] MEDS: INSULIN REGULAR, HUMAN 100 UNITS/1 ML SUB-Q SCH ×4 (01:13→18:31)
[2021-08-26] MEDS: hydrALAZINE 100 MG TAB PO SCH ×4 (01:16→21:59)
[2021-08-26] MEDS: methylPREDNISolone Sod Succinate 40 MG/1 ML INJ IV SCH ×3 (01:30→18:13)
[2021-08-26] MEDS: hydrALAZINE 20 MG/1 ML INJ IV PRN ×2 (01:30→10:12)
[2021-08-26] MEDS: AMIODARONE 360 MG in DEXTROSE 5% IN WATER 192.8 ML IV SCH ×2 (01:53→12:17)
[2021-08-26 05:47] LABS: Mean Corpuscular HGB Conc 32 % (30-34); Mean Corpuscular Volume 83 fl (79-97); Red Blood Count 3.02 M/mm3 (3.65-5.03)
[2021-08-26 05:54] LABS: Red Cell Distribution Width 20.7 % (13.2-15.2)
[2021-08-26 06:07] LABS: Calcium 9.6 mg/dL (8.4-10.2)
[2021-08-26 06:52] LABS: Band Neutrophils # (Manual) 0.2 K/mm3; Basophils % (Manual) 0 % (0.0-1.8); Eosinophils % (Manual) 0 % (0.0-4.3); Total Cells Counted 100
[2021-08-26 06:53] LABS: Anisocytosis 1+; Hypersegmented Neutrophils 1+; Hypochromasia 1+; Spherocytes 1+; Target Cells 1+
[2021-08-26 06:54] LABS: Platelet Estimate Consistent w Auto
[2021-08-26 07:01] LABS: Platelet Count 280 K/mm3 (140-440)
--- NOTE | 2021-08-26 07:48 | Progress Note ---
Assessment and Plan Assessment and plan: HPI: This is 60-year-old female with ESRD on HD, recurrent AICD discharges, systolic heart failure, V. tach, cardiac arrest, anemia, CAD and HTN who presents to the emergency department from her dialysis center on 08/05 for severe muscle spasms secondary to AICD discharges per patient. She also had questionable seizures in the dialysis center. Patient was started on amiodarone and lidocaine. Patient was intubated for airway protection in the emergency department and work-up also revealed severe hypokalemia. Patient was admitted to the hospital service with consult cardiology, nephrology and CCM. hospital course: 08/06/2021: Patient is sedated, Transfer to [facility] arranged 08/07: COVID-19 PCR negative. Patient received hemodialysis today. Off Cardene drip. Patient has been OG tube for p.o. BP medications. Thrombocytopenia persists therefore anticoagulation is held. Patient is leukopenia also. We will continue to trend CBC. Persistent hypoglycemia and D10 drip increased to 30 ml/hr. negative Covid test relayed to [facility]. 08/08: 1 unit prbc today, will start TF today. Still awaiting [facility] bed. 08/09: awaiting transfer to [facility]. TF nearly at goal so anticipate stopping dextrose IVF soon. Midline to be placed 08/10/2021: Received HD today. BP remains elevated therefore started on cardene gtt. Cardiology aware. No beds available yet. 08/11/2021: Cardene gtt infusing, CT head ordered as per nurse patient is not really responding (withdraw/ grimace to pain when off sedation/PERRL/intact cough/gag on PE). 08/12: ANGELINE overnight. Remains on the vent and sedated. On Amio gtt, A-pacing on the monitor, still hypertensive on cardene gtt, home antihypertensive was restarted. Plan for HD this am, hypernatremia too be corrected per Nephro. 08/13: Plan for SAT and SBT this am for possible extubation. Patient remains hypertensive on cardene gtt, clonidine added. 08/14: Patient s/p reintubation by anesthesia. Awake and alert following commands, not on any sedation. Remains hypertensive on amio and cardene gtt. D/w cardio plan to switch to PO Amio and to adjust antihypertensive therapy, hopefully can wean off cardene gtt. Plan to possible transfer patient to [facility] as a way of getting patient into the [facility] system for the needed ablation. Case manag ement to arrange 08/15: ANGELINE overnight. Patient remains stable on the vent. Still with uncontrolled hypertension despite meds increased yesterday. Patient remains on cardene gt. Cardio added minoxidil, plan is still to wean off cardene gtt. Plan for HD today 08/16: Self-extubated and was reintubated overnight due to stridor. Now on low dose sedation, following commands. D/w CCM plan to do a cuff leak today and possible start patinet on IV steroids. Since this is X2 failed extubation patient might need to be Trached. Per Case management patient was denied for [facility], no HD beds available. Patient remains on [facility] transfer list for possible inpatient transfer. 08/17: On the vent and om propofol gtt, RASS 0. Hypotensive overnight, will defer to Cardio for possible BP meds adjustment. Pending transfer to [facility]. 08/18: ANGELINE overnight. While awake on propofol gtt, following commands. Tolerated PST yesterday [id number]. Daily PST as tolerated. Pending transfer to [facility] 08/19: no cuff leak noted, may need neck imaging later this week. HD today with removal of 2.5 L. Midline ordered. [place] positional 08/20: Blood pressure medications adjusted due to hypotension, leak test not completed yet. No acute events reported overnight. Precedex drip initiated due to elevated triglycerides and propofol discontinued. 08/21: Patient remains soft with her blood pressures and antihypertensive regimen adjusted again. No cuff leak noted again despite getting FFP yesterday. Remains on Precedex. Started on Seroquel. Will have routine ECG tomorrow. 08/22: RN states that doses of hypertensive regimen have been withheld due to hypotension which has been medicated to cardiology. However per documentation as patient was hypotensive with SBP of 90s for approximately [address] neck completed, CT neck with contrast will be obtained as she is a [facility] HD schedule and cleared with Nephro. Still awaiting transfer to [facility]. 08/23: Patient will be transferred to the floor, Precedex weaned off. Failed bedside swallow eval and ST eval ordered but patient was drowsy when they came to assess. Amiodarone drip reinitiated by cardiology due to inability to take p.o. amiodarone. Added as needed labetalol since patient is n.p.o. 08/24: Agree with pccm, will likey need ent once at [facility]. Steroids will be changed to 40 q8. BP elevated this AM, labetalol iv on oct....patient cannot take po meds due to failed swallow eval, will follow speech recs. Follow up renal plans. CXR ordered by cardiology will follow. 08/25: Blood pressure poorly controlled overnight as well. in 230's systolic. Patient remains NPO per speech and cannot receive po bp meds. Additionally, labetalol IV alone has not been effective, patient cannot receive vasotec due to renal fx, and hydralazine is on national shortage. Bed availability for [facility] beds currently limits our ability to run cardene gtt. Increased labetalol dose yesterday and added clonidine patch and patient still had poor control. Unfortunately patient developed respiratory distress yesterday and required bipap. Chest x-ray ordered today demosntrates increased interstitial opacities. D/w Dr Felix (pulm) who states this is likely edema precipiated by high bp, recommended continuation of bipap. Patient should remain strict NPO, no crushed meds. Additionally to add nitropaste for improved bp control. Coordinated with Dr. Lorenzo who will initiate dialysis early tomorrow. D/w cupola charger insulation on 4th floor as well who is aware of today's plan. 08/26: Will Get dialysis today. Patient passed speech evaluation. Advised RN to resume anti-HTN meds. Off of bipap on nasal cannula saturating in low to mid 90's. Awaiting transfer to [facility]. Can cancel cardene gtt and imcu transfer if patient pressures stabilize. Neuro: Sedated -s/p precedex -PRN ativan -seroquel increased -Avoid delirium -Per RN CAM ICU (+) -Reorientation as needed -CT head x2 with no acute findings CV: Recurrent V. tach storm, NSTEMI, h/o s/p AICD implantation, systolic heart failure, V. tach, HTN emergency -Cardiology consulted, appreciate recommendations -S/p lidocaine and Cardene drip -Antihypertensive regimen: hydralazine, isosorbide, cozaar, metoprolol,clonidine (adjust as needed) -Currently n.p.o., as needed labetalol added -s/p Amiodarone drip-> Amio PO -Amiodarone IV started due to inability to take p.o. -Awaiting transfer to [facility] -Continue Lipitor, Plavix, ASA Respiratory: Acute Hypoxemic Respiratory Failure, pulmonary edema. -[facility] consulted, appreciate recommendations -Intubated in the ED on 08/05 with a 6.50 ETT at 21 at the lips, extubated 08/14 with reintubation, self extubation 08/16 with reintubation and self extubated on 08/22 -Nasal cannula to room air during the day -BiPAP nightly -obtain CT neck w/ con per [facility] -On hold as patient self extubated and seems stable -Will likely need ENT transfer to tertiary facility -VAP bundle -SPO2 monitoring -Continue steroids - CXR on 06/25: Shows new interstitial infiltrates....suspect this is flash pulmonary edema from poorly controlled HTN. GI: Dysphagia -Removal of NG tube with self extubation on 08/22 -Failed bedside swallow evaluation today -ST evaluation ordered-> patient was too lethargic at time of visit, will reassess tomorrow -24 hours +1197 mL -HD today -PPI -BR: Senokot -BM 08/19 : ESRD on HD, hyponatremia, hypochloremia -Nephrology consulted, appreciate recommendations -HD per nephrology -MWF schedule -Avoid nephrotoxic medications -Renally dose medications -Strict intake and output ID: [id number] -Monitor WBC and fever curve -Follow-up blood culture x2 and sputum culture -NGTD Heme: Thrombocytosis, Acute on chronic anemia of chronic disease, leukocytosis -S/p 2 unit PRBC -Trend CBC -Transfuse for hemoglobin less than 7 -Epogen per nephrology -Resume DAPT per cards in setting of recent stent -Heparin subq -SCDs to bilateral LE while in bed -Leukocytosis possibly secondary to steroid use Endo: Hypoglycemia (resolved) -S/p D10 for hypoglycemia -Avoid hypoglycemia -Accu-Cheks every 4 Dispo: AWAITING TRANSFER TO [facility] since 08/06/2021 History Interval history: No complaints this AM. Did not appear to be in distress. BP still elevated in 200's. Patient passed speech eval . Discussed plan for dialysis today. Hospitalist Physical - Physical exam Narrative exam: Physical Exam: VITAL SIGNS: Reviewed. GENERAL: The patient appears normally developed, Vital signs as documented. on nasal cannula. HEAD: No signs of head trauma. EYES: Pupils are equal. Extraocular motions intact. EARS: Hearing grossly intact. MOUTH: Oropharynx is normal. NECK: No adenopathy, no JVD. CHEST: Chest with clear breath sounds bilaterally. No wheezes, rales, or rhonchi. CARDIAC: Regular rate and rhythm. S1 and S2, without murmurs, gallops, or rubs. VASCULAR: No Edema. Peripheral pulses normal and equal in all extremities. ABDOMEN: Soft, non tender and non distended. No rebound or guarding, and no masses palpated. Bowel Sounds normal. MUSCULOSKELETAL: Good range of motion of all major joints. Extremities without clubbing, cyanosis or edema. NEUROLOGIC EXAM: Alert and oriented x 4. no focal sensory or strength deficits. PSYCHIATRIC: Mood normal. SKIN: detail exam as documented in skin assessment - Constitutional Vitals: Temp Pulse Resp BP Pulse Ox 98.4 F 71 34 H 197/54 97 08/25/21 08:39 08/26/21 03:10 08/26/21 03:10 08/26/21 04:11 08/26/21 03:10 General appearance: Present: no acute distress, other (Intubated and on sedation, RASS 0 ) HEART Score - HEART Score Age: 45-65 Risk factors: > 3 risk factors or hx of atherosclerotic disease Troponin: Troponin T 0.183 ng/mL (0.00-0.029) H* D 08/05/21 18:56 Troponin: 1-3x normal limit - Critical Actions Critical Actions: 4-6 pts:12-16.6% risk of adverse cardiac event. Should be admitted Results - Labs CBC & Chem 7: 08/26/21 05:04 08/26/21 05:04 Labs: Laboratory Last Values WBC 20.2 K/mm3 (4.5-11.0) H 08/26/21 05:04 RBC 3.02 M/mm3 (3.65-5.03) L 08/26/21 05:04 Hgb 8.0 gm/dl (10.1-14.3) L 08/26/21 05:04 Hct 25.0 % (30.3-42.9) L 08/26/21 05:04 MCV 83 fl (79-97) 08/26/21 05:04 MCH 27 pg (28-32) L 08/26/21 05:04 MCHC 32 % (30-34) 08/26/21 05:04 RDW 20.7 % (13.2-15.2) H 08/26/21 05:04 Plt Count 280 K/mm3 (140-440) 08/26/21 05:04 Lymph % (Auto) Director Medical Science 08/07/21 04:00 [place] % (Auto) Director Medical Science 08/11/21 04:00 Eos % (Auto) 2.2 % (0.0-4.3) 08/06/21 16:35 Baso % (Auto) Director Medical Science 08/07/21 04:00 Lymph # (Auto) 0.8 K/mm3 (1.2-5.4) L 08/06/21 16:35 [place] # (Auto) 0.7 K/mm3 (0.0-0.8) 08/06/21 16:35 Eos # (Auto) 0.1 K/mm3 (0.0-0.4) 08/06/21 16:35 Baso # (Auto) 0.1 K/mm3 (0.0-0.1) 08/06/21 16:35 Add Manual Diff Complete 08/26/21 05:04 Total Counted 100 08/26/21 05:04 Seg Neutrophils % Director Medical Science 08/26/21 05:04 Seg Neuts % (Manual) 96.0 % (40.0-70.0) H 08/26/21 05:04 Band Neutrophils % 1.0 % 08/26/21 05:04 Lymphocytes % (Manual) 1.0 % (13.4-35.0) L 08/26/21 05:04 Reactive Lymphs % (Man) 1.0 % 08/26/21 05:04 Monocytes % (Manual) 1.0 % (0.0-7.3) 08/26/21 05:04 Eosinophils % (Manual) 0 % (0.0-4.3) 08/26/21 05:04 Basophils % (Manual) 0 % (0.0-1.8) 08/26/21 05:04 Metamyelocytes % 0 % 08/26/21 05:04 Myelocytes % 0 % 08/26/21 05:04 Promyelocytes % 0 % 08/26/21 05:04 Blast Cells % 0 % 08/26/21 05:04 Nucleated RBC % Not Reportable 08/26/21 05:04 Seg Neutrophils # 2.6 K/mm3 (1.8-7.7) 08/06/21 16:35 Seg Neutrophils # Man 19.4 K/mm3 (1.8-7.7) H 08/26/21 05:04 Band Neutrophils # 0.2 K/mm3 08/26/21 05:04 Lymphocytes # (Manual) 0.2 K/mm3 (1.2-5.4) L 08/26/21 05:04 Abs React Lymphs (Man) 0.2 K/mm3 08/26/21 05:04 Monocytes # (Manual) 0.2 K/mm3 (0.0-0.8) 08/26/21 05:04 Eosinophils # (Manual) 0.0 K/mm3 (0.0-0.4) 08/26/21 05:04 Basophils # (Manual) 0.0 K/mm3 (0.0-0.1) 08/26/21 05:04 Metamyelocytes # 0.0 K/mm3 08/26/21 05:04 Myelocytes # 0.0 K/mm3 08/26/21 05:04 Promyelocytes # 0.0 K/mm3 08/26/21 05:04 Blast Cells # 0.0 K/mm3 08/26/21 05:04 WBC Morphology Not Reportable 08/26/21 05:04 Hypersegmented Neuts 1+ 08/26/21 05:04 Hyposegmented Neuts Not Reportable 08/26/21 05:04 Hypogranular Neuts Not Reportable 08/26/21 05:04 Smudge Cells Not Reportable 08/26/21 05:04 Toxic Granulation Not Reportable 08/26/21 05:04 Toxic Vacuolation Not Reportable 08/26/21 05:04 Dohle Bodies Not Reportable 08/26/21 05:04 Pelger-Huet Anomaly Not Reportable 08/26/21 05:04 Claudio Rods Not Reportable 08/26/21 05:04 Platelet Estimate Consistent w auto 08/26/21 05:04 Clumped Platelets Not Reportable 08/26/21 05:04 Plt Clumps, EDTA Not Reportable 08/26/21 05:04 Large Platelets Not Reportable 08/26/21 05:04 Giant Platelets Not Reportable 08/26/21 05:04 Platelet Satelliting Not Reportable 08/26/21 05:04 Plt Morphology Comment Not Reportable 08/26/21 05:04 RBC Morphology Not Reportable 08/26/21 05:04 Dimorphic RBCs Not Reportable 08/26/21 05:04 Polychromasia Not Reportable 08/26/21 05:04 Hypochromasia 1+ 08/26/21 05:04 Poikilocytosis Not Reportable 08/26/21 05:04 Anisocytosis 1+ 08/26/21 05:04 Microcytosis Not Reportable 08/26/21 05:04 Macrocytosis Not Reportable 08/26/21 05:04 Spherocytes 1+ 08/26/21 05:04 Pappenheimer Bodies Not Reportable 08/26/21 05:04 Sickle Cells Not Reportable 08/26/21 05:04 Target Cells 1+ 08/26/21 05:04 Tear Drop Cells Not Reportable 08/26/21 05:04 Ovalocytes Not Reportable 08/26/21 05:04 Helmet Cells Not Reportable 08/26/21 05:04 Diaz-Roachester Bodies Not Reportable 08/26/21 05:04 [place] Rings Not Reportable 08/26/21 05:04 Novelty Cells Not Reportable 08/26/21 05:04 Bite Cells Not Reportable 08/26/21 05:04 Crenated Cell Not Reportable 08/26/21 05:04 Elliptocytes Not Reportable 08/26/21 05:04 Acanthocytes (Spur) Not Reportable 08/26/21 05:04 Rouleaux Not Reportable 08/26/21 05:04 Hemoglobin C Crystals Not Reportable 08/26/21 05:04 Schistocytes Not Reportable 08/26/21 05:04 Malaria parasites Not Reportable 08/26/21 05:04 Aleks Bodies Not Reportable 08/26/21 05:04 Hem Pathologist Commnt No 08/26/21 05:04 PT 14.2 Sec. (12.2-14.9) 08/06/21 16:35 INR 0.99 (0.87-1.13) 08/06/21 16:35 APTT 37.1 Sec. (24.2-36.6) H 08/06/21 07:26 ABG pH 7.508 (7.320-7.450) H 08/20/21 04:25 POC ABG pCO2 35.1 mmHg (32.0-48.0) 08/20/21 04:25 ABG pCO2 41.2 mm Hg 08/09/21 04:30 POC ABG pO2 139.8 mmHg (83-108) H 08/20/21 04:25 ABG pO2 91.5 mm Hg (80.0-90.0) H 08/09/21 04:30 POC ABG HCO3 27.3 08/20/21 04:25 ABG HCO3 26.6 mmol/L (20.0-26.0) H 08/09/21 04:30 ABG O2 Saturation 99.1 (0-100) 08/20/21 04:25 ABG O2 Content 12.3 (0.0-44) 08/09/21 04:30 POC ABG Base Excess 4.0 08/20/21 04:25 ABG Base Excess 2.0 mmol/L (-2.0-3.0) 08/09/21 04:30 ABG Hemoglobin 8.2 (12.0-17.5) L 08/20/21 04:25 ABG Oxyhemoglobin 98.3 (94-98) H 08/20/21 04:25 ABG Carboxyhemoglobin 1.4 % (0.0-5.0) 08/09/21 04:30 ABG Methemoglobin 0.3 (0.0-1.5) 08/20/21 04:25 ABG Sodium 129.8 mmol/L (136.0-145.0) L 08/20/21 04:25 ABG Potassium 3.7 mmol/L (3.40-4.50) 08/20/21 04:25 ABG Chloride 96.0 mmol/L (98-107) L 08/20/21 04:25 ABG Glucose 162 mg/dL (65-95) H 08/20/21 04:25 Oxyhemoglobin 95.4 % (95.0-99.0) 08/09/21 04:30 Carboxyhemoglobin 0.5 (0.5-1.5) 08/20/21 04:25 FiO2 25 % 08/09/21 04:30 FiO2 % 30.0 08/20/21 04:25 Sodium 137 mmol/L (137-145) 08/26/21 05:04 Potassium 4.8 mmol/L (3.6-5.0) 08/26/21 05:04 Chloride 92.8 mmol/L (98-107) L 08/26/21 05:04 Carbon Dioxide 18 mmol/L (22-30) L 08/26/21 05:04 Anion Gap 31 mmol/L 08/26/21 05:04 BUN 77 mg/dL (7-17) H 08/26/21 05:04 Creatinine 5.6 mg/dL (0.6-1.2) H 08/26/21 05:04 Estimated GFR 9 ml/min 08/26/21 05:04 BUN/Creatinine Ratio 14 % 08/26/21 05:04 Glucose 129 mg/dL (65-100) H 08/26/21 05:04 POC Glucose 128 mg/dL (70-105) H 08/26/21 06:08 Lactic Acid 0.90 mmol/L (0.7-2.0) 08/25/21 09:00 Calcium 9.6 mg/dL (8.4-10.2) 08/26/21 05:04 Phosphorus 4.50 mg/dL (2.5-4.5) 08/23/21 04:35 Magnesium 2.00 mg/dL (1.7-2.3) 08/23/21 04:35 Total Bilirubin 0.30 mg/dL (0.1-1.2) 08/21/21 08:18 Direct Bilirubin < 0.2 mg/dL (0-0.2) 08/21/21 08:18 Indirect Bilirubin 0.1 mg/dL 08/21/21 08:18 AST 15 units/L (5-40) 08/21/21 08:18 ALT 14 units/L (7-56) 08/21/21 08:18 Alkaline Phosphatase 98 units/L (35-129) 08/21/21 08:18 Troponin T 0.183 ng/mL (0.00-0.029) H* D 08/05/21 18:56 Total Protein 6.0 g/dL (6.3-8.2) L 08/21/21 08:18 Albumin 2.6 g/dL (3.9-5) L 08/21/21 08:18 Albumin/Globulin Ratio 0.8 % 08/21/21 08:18 Triglycerides 433 mg/dL (2-149) H 08/20/21 06:08 Cholesterol 170 mg/dL (50-199) 08/05/21 15:55 LDL Cholesterol Direct 106 mg/dL (50-130) 08/05/21 15:55 HDL Cholesterol 32 mg/dL (40-59) L 08/05/21 15:55 Cholesterol/HDL Ratio 5.31 % 08/05/21 15:55 TSH 7.070 mlU/mL (0.270-4.200) H 08/07/21 13:30 Arterial Blood Glucose 162 mg/dL (65-95) H 08/20/21 04:25 Arterial Blood Ionized Calcium 4.8 mg/dL (4.6-5.3) 08/15/21 05:22 Coronavirus (PCR) Negative (Negative) 08/23/21 08:30 Hepatitis A IgM Ab Non-reactive (NonReactive) 08/08/21 04:26 Hep Bs Antigen Nonreactive (Negative) 08/08/21 04:26 Hep B Core IgM Ab Non-reactive (NonReactive) 08/08/21 04:26 Hepatitis C Antibody Non-reactive (NonReactive) 08/08/21 04:26 Blood Type O POSITIVE 08/20/21 15:29 Antibody Screen TNR 08/20/21 15:29 Crossmatch See Detail 08/06/21 05:30 Garza/IV: Voiding Method External Female Catheter Active Medications - Current Medications Current Medications: Generic Name Dose Route Start Last Admin Trade Name Freq PRN Reason Stop Dose Admin Acetaminophen 650 mg 08/06/21 16:30 08/06/21 16:30 Acetaminophen 650 Mg Rect Supp HI 650 mg Q6H PRN Administration Pain, Mild (1-3) Albuterol 2.5 mg 08/05/21 20:59 Albuterol 2.5 Mg/3 Ml Nebu IH Q4HRT PRN Shortness Of Breath Amlodipine Besylate 10 mg 08/25/21 10:00 08/25/21 11:12 Amlodipine 10 Mg Tab PO 10 mg DAILY JODI Administration Aspirin 81 mg 08/07/21 10:00 08/25/21 12:18 Aspirin 81 Mg Tab Chew PO Not Given QDAY JODI Atorvastatin Calcium 80 mg 08/05/21 22:00 08/26/21 01:13 Atorvastatin 40 Mg Tab PO Not Given QHS JODI Clonidine HCl 0.2 mg 08/24/21 17:00 08/24/21 17:43 Clonidine Tts 0.2 Mg/24 Hr Patch TD 0.2 mg Sa JODI Administration Clopidogrel Bisulfate 75 mg 08/10/21 10:00 08/25/21 12:17 Clopidogrel 75 Mg Tab PO Not Given QDAY JODI Dextrose 50 ml 08/17/21 18:00 Dextrose 50% In Water (25gm) 50 Ml Syringe IV Q30MIN PRN Hypoglycemia Protocol Famotidine 10 mg 08/09/21 22:00 08/26/21 01:13 Famotidine 10 Mg Tab PO Not Given BID JODI Haloperidol Lactate 2.5 mg 08/25/21 12:00 Haloperidol Lactate 5 Mg/1 Ml Inj IV Q6HR PRN aggitation Heparin Sodium (Porcine) 5,000 unit 08/11/21 10:00 08/25/21 21:04 Heparin 5,000 Unit/1 Ml Vial SUB-Q 5,000 unit Q12HR JODI Administration Hydralazine HCl 10 mg 08/06/21 04:21 08/26/21 01:30 Hydralazine 20 Mg/1 Ml Inj IV 10 mg Q6HR PRN Administration Hypertension Hydralazine HCl 100 mg 08/25/21 09:00 08/26/21 06:10 Hydralazine 100 Mg Tab PO Not Given Q8HR [facility] Hydrophilic Ointment 1 applic 08/05/21 17:25 Lip Therapy Vaseline TP Q2HR PRN Dry Lips Sodium Chloride 100 mls @ 999 mls/hr 08/14/21 17:06 Nacl 0.9% IV GLENDY PRN Hypotension Amiodarone HCl 360 mg/ 200 mls @ 16.667 mls/hr 08/23/21 12:00 08/26/21 01:53 Dextrose IV 0.5 mg/min DIRECT JODI 16.667 mls/hr Administration Protocol 0.5 MG/MIN Nicardipine HCl 50 mg/ Sodium 250 mls @ 25 mls/hr 08/25/21 08:00 Chloride IV TITR JODI Protocol 5 MG/HR Insulin Human Regular 0 units 08/17/21 18:00 08/26/21 06:10 Insulin Regular, Human 100 Units/1 Ml SUB-Q Not Given Q6H [facility] Protocol Isosorbide Dinitrate 20 mg 08/11/21 14:00 08/26/21 01:12 Isosorbide Dinitrate 20 Mg Tab PO Not Given Q8HR [facility] Labetalol HCl 20 mg 08/24/21 17:00 08/26/21 04:11 Labetalol 20 Mg/4 Ml Inj IV 20 mg Q2HR PRN Administration Hypertension Lorazepam 1 mg 08/23/21 12:14 08/25/21 23:34 Lorazepam 2 Mg/Ml Vial IV 1 mg Q4H PRN Administration Agitation Losartan Potassium 100 mg 08/12/21 10:00 08/25/21 12:19 Losartan 25 Mg Tab PO Not Given DAILY [facility] Methylprednisolone Sodium Succinate 40 mg 08/25/21 00:00 08/26/21 01:30 Methylprednisolone Sod Succinate 40 Mg/1 Ml Inj IV 40 mg Q8H [facility] Administration Metoclopramide HCl 5 mg 08/05/21 21:03 Metoclopramide 10 Mg/2 Ml Inj IV Q6H PRN Nausea And Vomiting Metoprolol Tartrate 100 mg 08/24/21 14:00 08/25/21 21:10 Metoprolol Tartrate 50 Mg Tab PO Not Given TID [facility] Multi-Ingred Cream/Lotion/Oil/Oint 1 applic 08/05/21 17:25 Mineral Oil/Petrolatum, White Ophth Oint 3.5 Gm OU Q4HR PRN Dry Eye(s) Ondansetron HCl 4 mg 08/05/21 21:03 Ondansetron 4 Mg/2 Ml Inj IV Q8H PRN Nausea And Vomiting Oxycodone/Acetaminophen 1 tab 08/05/21 21:03 08/22/21 01:52 Oxycodone /Acetaminophen 5-325mg Tab PO 1 tab Q6H PRN Administration Pain, Moderate (4-6) Senna 8.8 mg 08/07/21 13:00 08/26/21 01:13 Sennosides Oral Liqd 8.8 Mg/5 Ml Oral Liqd FEEDTUBE Not Given BID [facility] Sodium Chloride 10 ml 08/05/21 22:00 08/25/21 21:07 Sodium Chloride 0.9% 10 Ml Flush Syringe IV 10 ml BID JODI Administration Sodium Chloride 10 ml 08/05/21 21:03 Sodium Chloride 0.9% 10 Ml Flush Syringe IV PRN PRN LINE FLUSH Nutrition/Malnutrition Assess - Dietary Evaluation Nutrition/Malnutrition Findings: Nutrition Notes Start: 08/07/21 09:12 Freq: Status: Active Protocol: Document 08/19/21 14:47 KALA (Rec: 08/19/21 15:06 KALA [id number]) Nutrition Notes Initial or Follow up Brief Note Current Diet TF-Nepro w/CARBSTEADY @ 32 ml/ hr (since L 08/16). Height 5 ft 2 in Weight 64.25 kg [place] Body Weight (kg) 50.00 BMI 25.9 Weight change and time frame No body weight change reported . Weight Status Overweight Subjective/Other Information RD consult for routine F/U on TF continuation assessment. Pt reintubated and TF continued at the time of conversation with RN. Still waiting for placement at [facility]. Percent of energy/protein needs met: Prescribed Nepro w/CARBSTEADY @ 32 ml/hr will provide for energy/protein needs (1,403 Kcal/63 g) 100% Kcal; 82% AA, during LOS. #1 Nutrition Diagnosis Inadequate oral intake Diagnosis Progress(for reassessment Continues documentation) Nutrition Intervention Nutrition Support: Continue Nepro w/CARBSTEADY @ 32 ml/hr. Flush: 50 ml water Q 4 hr until hyponatremia resolves, then 150 ml Q 4 hr. % RDI: 100% Kcal; 82% AA. Goal #1 Provide at least 75% of energy /protein needs through Enteral Feeding during LOS. Follow-Up By: 08/26/21 Additional Comments Continue monitoring TF tolerance, and BM.
--- NOTE | 2021-08-26 11:34 | Progress Note ---
Assessment and Plan Switch metoprolol to carvedilol. Optimize antihypertensive regimen. - Patient Problems (1) AICD discharge Current Visit: Yes Status: Acute (2) VT (ventricular tachycardia) Current Visit: Yes Status: Acute (3) Acute respiratory failure Current Visit: Yes Status: Resolved (4) Pneumonia Current Visit: Yes Status: Acute (5) Leucocytosis Current Visit: Yes Status: Acute (6) CAD (coronary artery disease) Current Visit: Yes Status: Chronic Qualifiers: Coronary Disease-Associated Artery/Lesion type: [place] artery (7) Stented coronary artery Current Visit: Yes Status: Chronic (8) Prolonged QT interval Current Visit: Yes Status: Acute (9) AICD (automatic cardioverter/defibrillator) present Current Visit: Yes Status: Chronic (10) End stage renal disease on dialysis Current Visit: Yes Status: Chronic (11) Hypertension Current Visit: Yes Status: Chronic Qualifiers: Hypertension type: primary hypertension Qualified Code(s): I10 - Essential (primary) hypertension Subjective Date of service: 08/26/21 Principal diagnosis: VT storm, s/p ICD shocks Interval history: No new complaint. Objective Vital Signs Temp Pulse Resp BP BP Pulse Ox 08/26/21 11:07 97.9 F 08/26/21 11:06 70 20 209/76 97 08/26/21 09:34 93 08/26/21 09:31 70 28 H 99 08/26/21 08:14 97.4 F L 70 20 202/68 100 08/26/21 04:11 197/54 08/26/21 04:02 71 97 08/26/21 03:10 71 34 H 97 08/26/21 01:30 188/68 08/25/21 23:33 67 210/68 08/25/21 23:06 70 211/68 100 08/25/21 22:00 21 98 08/25/21 21:32 69 26 H 98 08/25/21 21:04 70 200/83 08/25/21 19:43 205/74 08/25/21 17:25 70 28 H 94 08/25/21 16:00 70 20 99 08/25/21 15:36 168/58 08/25/21 14:16 205/81 08/25/21 13:45 73 25 H 100 08/25/21 12:45 190/74 - Physical Examination General: No Apparent Distress HEENT: Positive: EOMI, Normocephaly, Mucus Membranes Moist, Mucus Membranes Dry Neck: Positive: neck supple, trachea midline. Negative: JVD/HJR Cardiac: Positive: Regular Rhythm, S1/S2 Lungs: Positive: clear to auscultation Neuro: Positive: Grossly Intact Abdomen: Positive: Soft, Active Bowel Sounds. Negative: Tender Skin: Positive: Clear. Negative: Rash Musculoskeletal: Normal Range of Motion Extremities: Absent: edema - Labs and Meds CBC 08/26/21 Range/Units 05:04 WBC 20.2 H (4.5-11.0) K/mm3 RBC 3.02 L (3.65-5.03) M/mm3 Hgb 8.0 L (10.1-14.3) gm/dl Hct 25.0 L (30.3-42.9) % Plt Count 280 (140-440) K/mm3 Comprehensive Metabolic Panel 08/26/21 Range/Units 05:04 Sodium 137 (137-145) mmol/L Potassium 4.8 (3.6-5.0) mmol/L Chloride 92.8 L (98-107) mmol/L Carbon Dioxide 18 L (22-30) mmol/L BUN 77 H (7-17) mg/dL Creatinine 5.6 H (0.6-1.2) mg/dL Glucose 129 H (65-100) mg/dL Calcium 9.6 (8.4-10.2) mg/dL - Imaging and Cardiology EKG: report reviewed, image reviewed Echo: report reviewed Cardiac cath: report reviewed - Telemetry EKG Rhythm: Paced - EKG Sinus rhythms and dysrhythmias: sinus rhythm Repolarization changes or abnormalities: Q-T interval prolongation Myocardial infarction: anterior LA (old age or i Pacemaker: atrial pacing w/capture - Allied health notes Allied health notes reviewed: nursing
[2021-08-26] MEDS: carvediloL 25 MG TAB PO SCH ×2 (12:00→21:59)
[2021-08-26] MEDS: amLODIPine 10 MG TAB PO SCH (12:01)
--- NOTE | 2021-08-26 13:53 | Progress Note ---
Assessment and Plan - Patient Problems (1) End stage renal disease on dialysis Current Visit: Yes Status: Chronic Plan to address problem: Cont hemodialysis on a Thursday, Thursday and Thursday schedule. (2) Hypokalemia Current Visit: Yes Status: Acute Plan to address problem: Potassium is back to normal. Follow-up (3) Anemia in end-stage renal disease Current Visit: Yes Status: Acute Plan to address problem: Give erythropoietin on dialysis and follow-up hemoglobin level (4) VT (ventricular tachycardia) Current Visit: Yes Status: Acute Plan to address problem: Continue management by delinquent tax collector assistant. Awaiting transfer to [facility] for VT ablation Subjective Date of service: 08/26/21 Principal diagnosis: VT storm, s/p ICD shocks Interval history: Pt seen and examined during HD, no acute issues reported. awake, alert in no acute distress Objective - Vital Signs Vital signs: Vital Signs - 12hr 08/26/21 08/26/21 08/26/21 03:10 04:02 04:11 Temperature Pulse Rate 71 71 Respiratory 34 H Rate Blood Pressure 197/54 O2 Sat by Pulse 97 97 Oximetry 08/26/21 08/26/21 08/26/21 08:14 09:31 09:34 Temperature 97.4 F L Pulse Rate 70 70 Respiratory 20 28 H Rate Blood Pressure 202/68 O2 Sat by Pulse 100 99 93 Oximetry 08/26/21 08/26/21 11:06 11:07 Temperature 97.9 F Pulse Rate 70 Respiratory 20 Rate Blood Pressure 209/76 O2 Sat by Pulse 97 Oximetry - General Appearance General appearance: well-developed, well-nourished, appears stated age EENT: ATNC, PERRL, mucous membranes moist Neck: no JVD Respiratory: Present: Clear to Ascultation Cardiology: regular, S1S2 Gastrointestinal: normoactive bowel sounds Integumentary: no rash, other (no edema ) Neurologic: no focal deficit, alert and oriented x3, strength 5/5, CN 3-12 intact Psychiatric: mood/affect appropriate, cooperative - Lab 08/26/21 05:04 08/26/21 05:04 Most recent lab results ABG pH 7.508 (7.320-7.450) H 08/20/21 04:25 ABG pCO2 41.2 mm Hg 08/09/21 04:30 ABG pO2 91.5 mm Hg (80.0-90.0) H 08/09/21 04:30 ABG HCO3 26.6 mmol/L (20.0-26.0) H 08/09/21 04:30 ABG O2 Saturation 99.1 (0-100) 08/20/21 04:25 Calcium 9.6 mg/dL (8.4-10.2) 08/26/21 05:04 Phosphorus 4.50 mg/dL (2.5-4.5) 08/23/21 04:35 Magnesium 2.00 mg/dL (1.7-2.3) 08/23/21 04:35 Medications & Allergies - Medications Allergies/Adverse Reactions: Allergies No Known Allergies Allergy (Unverified 07/10/21 20:57) Home Medications: Home Medications Medication Instructions Recorded Confirmed Last Taken Type Icosapent Ethyl [Vascepa] 2 gm PO BID 07/12/21 08/24/21 Unknown History Losartan [Cozaar] 25 mg PO BID 07/12/21 08/24/21 Unknown History ALBUTEROL NEB's [Proventil 0.083% 2.5 mg IH Q4HRT PRN nebu 07/15/21 08/24/21 Unknown Rx NEBS] Acetaminophen [Acetaminophen 650 mg FL Q4H PRN supp.rect 07/15/21 08/24/21 Unknown Rx SUPPOS] Acetaminophen [Acetaminophen TAB] 650 mg PO Q4H PRN tablet 07/15/21 08/24/21 Unknown Rx Amiodarone [Cordarone 200 MG TAB] 200 mg PO BID tablet 07/15/21 08/24/21 Unknown Rx AtorvaSTATin [Lipitor] 80 mg PO QHS tablet 07/15/21 08/24/21 Unknown Rx Clopidogrel [Plavix] 75 mg PO QDAY tablet 07/15/21 08/24/21 Unknown Rx Dextrose 50% in Water [D50W (25GM) 50 ml IV Q30MIN PRN syringe 07/15/21 08/24/21 Unknown Rx Syringe] Free Water 60 ml PO Q4HR oral.liqd 07/15/21 08/24/21 Unknown Rx Isosorbide Dinitrate [Isordil] 5 mg PO Q8HR tablet 07/15/21 08/24/21 Unknown Rx Lipase/Protease/Amylase [Pancreaze 1 each FEEDTUBE PRN PRN capsule 07/15/21 08/24/21 Unknown Rx 10,500 Unit] Lispro Insulin [HumaLOG] 0 unit SUB-Q Q6HR units 07/15/21 08/24/21 Unknown Rx Metoprolol [Lopressor TAB] 25 mg PO TID tablet 07/15/21 08/24/21 Unknown Rx Simple Syrup 30 ml FEEDTUBE PRN PRN oral.liqd 07/15/21 08/24/21 Unknown Rx hydrALAZINE [Apresoline INJ] 10 mg IV Q6H PRN vial 07/15/21 08/24/21 Unknown Rx Active Medications: Generic Name Dose Route Start Last Admin Trade Name Freq PRN Reason Stop Dose Admin Acetaminophen 650 mg 08/06/21 16:30 08/06/21 16:30 Acetaminophen 650 Mg Rect Supp FL 650 mg Q6H PRN Administration Pain, Mild (1-3) Albuterol 2.5 mg 08/05/21 20:59 Albuterol 2.5 Mg/3 Ml Nebu IH Q4HRT PRN Shortness Of Breath Amlodipine Besylate 10 mg 08/25/21 10:00 08/26/21 12:01 Amlodipine 10 Mg Tab PO 10 mg DAILY JODI Administration Aspirin 81 mg 08/07/21 10:00 08/25/21 12:18 Aspirin 81 Mg Tab Chew PO Not Given QDAY JODI Atorvastatin Calcium 80 mg 08/05/21 22:00 08/26/21 01:13 Atorvastatin 40 Mg Tab PO Not Given QHS JODI Carvedilol 25 mg 08/26/21 10:00 08/26/21 12:00 Carvedilol 25 Mg Tab PO 25 mg BID JODI Administration Clonidine HCl 0.2 mg 08/24/21 17:00 08/24/21 17:43 Clonidine Tts 0.2 Mg/24 Hr Patch TD 0.2 mg Sa JODI Administration Clopidogrel Bisulfate 75 mg 08/10/21 10:00 08/25/21 12:17 Clopidogrel 75 Mg Tab PO Not Given QDAY JODI Dextrose 50 ml 08/17/21 18:00 Dextrose 50% In Water (25gm) 50 Ml Syringe IV Q30MIN PRN Hypoglycemia Protocol Doxazosin Mesylate 4 mg 08/26/21 12:00 Doxazosin 4 Mg Tab PO QDAY JODI Famotidine 10 mg 08/09/21 22:00 08/26/21 01:13 Famotidine 10 Mg Tab PO Not Given BID JODI Haloperidol Lactate 2.5 mg 08/25/21 12:00 Haloperidol Lactate 5 Mg/1 Ml Inj IV Q6HR PRN aggitation Heparin Sodium (Porcine) 5,000 unit 08/11/21 10:00 08/25/21 21:04 Heparin 5,000 Unit/1 Ml Vial SUB-Q 5,000 unit Q12HR JODI Administration Hydralazine HCl 10 mg 08/06/21 04:21 08/26/21 10:12 Hydralazine 20 Mg/1 Ml Inj IV 10 mg Q6HR PRN Administration Hypertension Hydralazine HCl 100 mg 08/25/21 09:00 08/26/21 06:10 Hydralazine 100 Mg Tab PO Not Given Q8HR [facility] Hydrophilic Ointment 1 applic 08/05/21 17:25 Lip Therapy Vaseline TP Q2HR PRN Dry Lips Sodium Chloride 100 mls @ 999 mls/hr 08/14/21 17:06 Nacl 0.9% IV GLENDY PRN Hypotension Amiodarone HCl 360 mg/ 200 mls @ 16.667 mls/hr 08/23/21 12:00 08/26/21 01:53 Dextrose IV 0.5 mg/min DIRECT JODI 16.667 mls/hr Administration Protocol 0.5 MG/MIN Nicardipine HCl 50 mg/ Sodium 250 mls @ 25 mls/hr 08/25/21 08:00 Chloride IV TITR [facility] Protocol 5 MG/HR Insulin Human Regular 0 units 08/17/21 18:00 08/26/21 06:10 Insulin Regular, Human 100 Units/1 Ml SUB-Q Not Given Q6H [facility] Protocol Isosorbide Dinitrate 20 mg 08/11/21 14:00 08/26/21 01:12 Isosorbide Dinitrate 20 Mg Tab PO Not Given Q8HR [facility] Labetalol HCl 20 mg 08/24/21 17:00 08/26/21 04:11 Labetalol 20 Mg/4 Ml Inj IV 20 mg Q2HR PRN Administration Hypertension Lorazepam 1 mg 08/23/21 12:14 08/25/21 23:34 Lorazepam 2 Mg/Ml Vial IV 1 mg Q4H PRN Administration Agitation Losartan Potassium 100 mg 08/12/21 10:00 08/25/21 12:19 Losartan 25 Mg Tab PO Not Given DAILY JODI Methylprednisolone Sodium Succinate 40 mg 08/25/21 00:00 08/26/21 01:30 Methylprednisolone Sod Succinate 40 Mg/1 Ml Inj IV 40 mg Q8H JODI Administration Metoclopramide HCl 5 mg 08/05/21 21:03 Metoclopramide 10 Mg/2 Ml Inj IV Q6H PRN Nausea And Vomiting Multi-Ingred Cream/Lotion/Oil/Oint 1 applic 08/05/21 17:25 Mineral Oil/Petrolatum, White Ophth Oint 3.5 Gm OU Q4HR PRN Dry Eye(s) Ondansetron HCl 4 mg 08/05/21 21:03 Ondansetron 4 Mg/2 Ml Inj IV Q8H PRN Nausea And Vomiting Oxycodone/Acetaminophen 1 tab 08/05/21 21:03 08/22/21 01:52 Oxycodone /Acetaminophen 5-325mg Tab PO 1 tab Q6H PRN Administration Pain, Moderate (4-6) Senna 8.8 mg 08/07/21 13:00 08/26/21 01:13 Sennosides Oral Liqd 8.8 Mg/5 Ml Oral Liqd FEEDTUBE Not Given BID JODI Sodium Chloride 10 ml 08/05/21 22:00 08/26/21 10:13 Sodium Chloride 0.9% 10 Ml Flush Syringe IV 10 ml BID JODI Administration Sodium Chloride 10 ml 08/05/21 21:03 Sodium Chloride 0.9% 10 Ml Flush Syringe IV PRN PRN LINE FLUSH
[2021-08-26] MEDS: ASPIRIN 81 MG TAB CHEW PO SCH (18:13)
[2021-08-26] MEDS: LOSARTAN 25 MG TAB PO SCH (18:13)
[2021-08-26] MEDS: HEPARIN 5,000 UNIT/1 ML VIAL SUB-Q SCH ×2 (18:13→22:00)
[2021-08-26] MEDS: CLOPIDOGREL 75 MG TAB PO SCH (18:13)
[2021-08-26] MEDS: METOPROLOL TARTRATE 50 MG TAB PO SCH (18:30)
[2021-08-27] MEDS: DOXAZOSIN 4 MG TAB PO SCH ×2 (00:16→11:44)
[2021-08-27] MEDS: AMIODARONE 360 MG in DEXTROSE 5% IN WATER 192.8 ML IV SCH (00:25)
[2021-08-27] MEDS: methylPREDNISolone Sod Succinate 40 MG/1 ML INJ IV SCH ×3 (00:30→15:29)
[2021-08-27] MEDS: INSULIN REGULAR, HUMAN 100 UNITS/1 ML SUB-Q SCH ×4 (01:55→18:12)
[2021-08-27] MEDS: hydrALAZINE 100 MG TAB PO SCH ×3 (05:16→21:25)
[2021-08-27] MEDS: ISOSORBIDE DINITRATE 20 MG TAB PO SCH ×3 (05:18→22:00)
[2021-08-27 05:54] LABS: Hematocrit 23.7 % (30.3-42.9); Hemoglobin 7.6 gm/dl (10.1-14.3); Mean Corpuscular HGB Conc 32 % (30-34); Mean Corpuscular Volume 83 fl (79-97); Platelet Count 233 K/mm3 (140-440); Red Blood Count 2.86 M/mm3 (3.65-5.03)
[2021-08-27 05:58] LABS: Red Cell Distribution Width 20.2 % (13.2-15.2)
[2021-08-27 06:08] LABS: Calcium 9.4 mg/dL (8.4-10.2)
[2021-08-27 07:02] LABS: Basophils % (Manual) 0 % (0.0-1.8); Eosinophils % (Manual) 0 % (0.0-4.3); Total Cells Counted 100
[2021-08-27 07:03] LABS: Anisocytosis 1+; Hypochromasia 1+; Target Cells 1+
[2021-08-27 07:04] LABS: Ovalocytes Rare; Platelet Estimate Consistent w Auto
--- NOTE | 2021-08-27 10:06 | Progress Note ---
Assessment and Plan Assessment and plan: This is 60-year-old female with ESRD on HD, recurrent AICD discharges, systolic heart failure, V. tach, cardiac arrest, anemia, CAD and HTN who presents to the emergency department from her dialysis center on 08/05 for severe muscle spasms secondary to AICD discharges per patient. She also had questionable seizures in the dialysis center. Patient was started on amiodarone and lidocaine. Patient was intubated for airway protection in the emergency department and work-up also revealed severe hypokalemia. Patient was admitted to the hospital service with consult cardiology, nephrology and [facility]. hospital course: 08/06/2021: Patient is sedated, Transfer to [place] arranged 08/07: COVID-19 PCR negative. Patient received hemodialysis today. Off Cardene drip. Patient has been OG tube for p.o. BP medications. Thrombocytopenia persists therefore anticoagulation is held. Patient is leukopenia also. We will continue to trend CBC. Persistent hypoglycemia and D10 drip increased to 30 ml/hr. negative Covid test relayed to [place]. 08/08: 1 unit prbc today, will start TF today. Still awaiting [place] bed. 08/09: awaiting transfer to [place]. TF nearly at goal so anticipate stopping dextrose IVF soon. Midline to be placed 08/10/2021: Received HD today. BP remains elevated therefore started on cardene gtt. Cardiology aware. No beds available yet. 08/11/2021: Cardene gtt infusing, CT head ordered as per nurse patient is not really responding (withdraw/ grimace to pain when off sedation/PERRL/intact cough/gag on PE). 08/12: ANGELINE overnight. Remains on the vent and sedated. On Amio gtt, A-pacing on the monitor, still hypertensive on cardene gtt, home antihypertensive was restarted. Plan for HD this am, hypernatremia too be corrected per Nephro. 08/13: Plan for SAT and SBT this am for possible extubation. Patient remains hypertensive on cardene gtt, clonidine added. 08/14: Patient s/p reintubation by anesthesia. Awake and alert following commands, not on any sedation. Remains hypertensive on amio and cardene gtt. D/w cardio plan to switch to PO Amio and to adjust antihypertensive therapy, hopefully can wean off cardene gtt. Plan to possible transfer patient to [place] [facility] as a way of getting patient into the [place] system for the needed ablation. Case management to arrange 08/15: ANGELINE overnight. Patient remains stable on the vent. Still with uncontrolled hypertension despite meds increased yesterday. Patient remains on cardene gt. Cardio added minoxidil, plan is still to wean off cardene gtt. Plan for HD today 08/16: Self-extubated and was reintubated overnight due to stridor. Now on low dose sedation, following commands. D/w CCM plan to do a cuff leak today and possible start patinet on IV steroids. Since this is X2 failed extubation patient might need to be Trached. Per Case management patient was denied for [facility], no HD beds available. Patient remains on [facility] transfer list for possible inpatient transfer. 08/17: On the vent and om propofol gtt, RASS 0. Hypotensive overnight, will defer to Cardio for possible BP meds adjustment. Pending transfer to [facility]. 08/18: ANGELINE overnight. While awake on propofol gtt, following commands. Tolerated PST yesterday [id number]. Daily PST as tolerated. Pending transfer to [facility] 08/19: no cuff leak noted, may need neck imaging later this week. HD today with removal of 2.5 L. Midline ordered. [place] positional 08/20: Blood pressure medications adjusted due to hypotension, leak test not completed yet. No acute events reported overnight. Precedex drip initiated due to elevated triglycerides and propofol discontinued. 08/21: Patient remains soft with her blood pressures and antihypertensive regimen adjusted again. No cuff leak noted again despite getting FFP yesterday. Remains on Precedex. Started on Seroquel. Will have routine ECG tomorrow. 08/22: RN states that doses of hypertensive regimen have been withheld due to hypotension which has been medicated to cardiology. However per documentation as patient was hypotensive with SBP of 90s for approximately [address] neck completed, CT neck with contrast will be obtained as she is a [facility] HD schedule and cleared with Nephro. Still awaiting transfer to [place]. 08/23: Patient will be transferred to the floor, Precedex weaned off. Failed bedside swallow eval and ST eval ordered but patient was drowsy when they came to assess. Amiodarone drip reinitiated by cardiology due to inability to take p.o. amiodarone. Added as needed labetalol since patient is n.p.o. 08/24: Agree with pccm, will likey need ent once at [facility]. Steroids will be changed to 40 q8. BP elevated this AM, labetalol iv on oct....patient cannot take po meds due to failed swallow eval, will follow speech recs. Follow up renal plans. CXR ordered by cardiology will follow. 08/25: Blood pressure poorly controlled overnight as well. in 230's systolic. Patient remains NPO per speech and cannot receive po bp meds. Additionally, labetalol IV alone has not been effective, patient cannot receive vasotec due to renal fx, and hydralazine is on national shortage. Bed availability for [facility] beds currently limits our ability to run cardene gtt. Increased labetalol dose yesterday and added clonidine patch and patient still had poor control. Unfortunately patient developed respiratory distress yesterday and required bipap. Chest x-ray ordered today demosntrates increased interstitial opacities. D/w Dr Felix (pul) who states this is likely edema precipiated by high bp, recommended continuation of bipap. Patient should remain strict NPO, no crushed meds. Additionally to add nitropaste for improved bp control. Coordinated with Dr. Lorenzo who will initiate dialysis early tomorrow. D/w charge accounts audit clerk on 4th floor as well who is aware of today's plan. 08/26: Will Get dialysis today. Patient passed speech evaluation. Advised RN to resume anti-HTN meds. Off of bipap on nasal cannula saturating in low to mid 90's. Awaiting transfer to [place]. Can cancel cardene gtt and [facility] transfer if patient pressures stabilize. Neuro: Sedated -s/p precedex -PRN ativan -seroquel increased -Avoid delirium -Per RN CAM ICU (+) -Reorientation as needed -CT head x2 with no acute findings CV: Recurrent V. tach storm, NSTEMI, h/o s/p AICD implantation, systolic heart failure, V. tach, HTN emergency -Cardiology consulted, appreciate recommendations -S/p lidocaine and Cardene drip -Antihypertensive regimen: hydralazine, isosorbide, cozaar, metoprolol,clonidine (adjust as needed) -Currently n.p.o., as needed labetalol added -s/p Amiodarone drip-> Amio PO -Amiodarone IV started due to inability to take p.o. -Awaiting transfer to [place] -Continue Lipitor, Plavix, ASA Respiratory: Acute Hypoxemic Respiratory Failure, pulmonary edema. -[facility] consulted, appreciate recommendations -Intubated in the ED on 08/05 with a 6.50 ETT at 21 at the lips, extubated 08/14 with reintubation, self extubation 08/16 with reintubation and self extubated on 08/22 -Nasal cannula to room air during the day -BiPAP nightly -obtain CT neck w/ con per [facility] -On hold as patient self extubated and seems stable -Will likely need ENT transfer to tertiary facility -VAP bundle -SPO2 monitoring -Continue steroids - CXR on 06/25: Shows new interstitial infiltrates....suspect this is flash pulmonary edema from poorly controlled HTN. GI: Dysphagia -Removal of NG tube with self extubation on 08/22 -Failed bedside swallow evaluation today -ST evaluation ordered-> patient was too lethargic at time of visit, will reassess tomorrow -24 hours +1197 mL -HD today -PPI -BR: Senokot -BM 08/19 : ESRD on HD, hyponatremia, hypochloremia -Nephrology consulted, appreciate recommendations -HD per nephrology -MWF schedule -Avoid nephrotoxic medications -Renally dose medications -Strict intake and output ID: [id number] -Monitor WBC and fever curve -Follow-up blood culture x2 and sputum culture -NGTD Heme: Thrombocytosis, Acute on chronic anemia of chronic disease, leukocytosis -S/p 2 unit PRBC -Trend CBC -Transfuse for hemoglobin less than 7 -Epogen per nephrology -Resume DAPT per cards in setting of recent stent -Heparin subq -SCDs to bilateral LE while in bed -Leukocytosis possibly secondary to steroid use Endo: Hypoglycemia (resolved) -S/p D10 for hypoglycemia -Avoid hypoglycemia -Accu-Cheks every 4 Dispo: AWAITING TRANSFER TO [facility] since 08/06/2021 Addendum: Assessment and plan: --Recurrent ICD discharges --Ventricular tachycardia storm --History of coronary artery disease status post PCI 07/17/2021 --Severe hypokalemia/resolved --History of CVA/residual weakness --End-stage renal disease on hemodialysis --Electrolyte abnormalities --Thrombocytopenia --Type 2 diabetes mellitus --Accelerated hypertension. Plan: Follow-up cardiology, pulmonary, nephrology evaluation and recommendations Continue current management Pending transfer to [place] for [place] ablation History Interval history: I have seen and examined the patient at the bedside Patient's chart and medications reviewed No new events reported by the nursing staff Vital signs noted Patient is lethargic not in acute distress Hospitalist Physical - Constitutional Vitals: Temp Pulse Resp BP Pulse Ox 99.1 F 98 H 18 181/77 99 08/27/21 03:46 08/27/21 04:00 08/27/21 03:46 08/27/21 03:46 08/27/21 08:43 General appearance: Present: no acute distress, other (Nasal cannula oxygen) - EENT Eyes: Present: PERRL, EOM intact - Neck Neck: Present: supple, normal ROM - Respiratory Respiratory effort: normal Respiratory: bilateral: diminished, negative: rales, rhonchi, wheezing - Cardiovascular Rhythm: regular Heart Sounds: Present: S1 & S2 - Extremities Extremities: no ischemia, No edema - Abdominal General gastrointestinal: soft, non-tender, non-distended, normal bowel sounds - Integumentary Integumentary: Present: clear, warm - Psychiatric Psychiatric: appropriate mood/affect, cooperative - Neurologic Neurologic: CNII-XII intact, moves all extremities HEART Score - HEART Score Age: 45-65 Risk factors: > 3 risk factors or hx of atherosclerotic disease Troponin: Troponin T 0.183 ng/mL (0.00-0.029) H* D 08/05/21 18:56 Troponin: 1-3x normal limit - Critical Actions Critical Actions: 4-6 pts:12-16.6% risk of adverse cardiac event. Should be admitted Results - Labs CBC & Chem 7: 08/27/21 04:49 08/27/21 04:49 Labs: Laboratory Last Values WBC 8.4 K/mm3 (4.5-11.0) 08/27/21 04:49 RBC 2.86 M/mm3 (3.65-5.03) L 08/27/21 04:49 Hgb 7.6 gm/dl (10.1-14.3) L 08/27/21 04:49 Hct 23.7 % (30.3-42.9) L 08/27/21 04:49 MCV 83 fl (79-97) 08/27/21 04:49 MCH 27 pg (28-32) L 08/27/21 04:49 MCHC 32 % (30-34) 08/27/21 04:49 RDW 20.2 % (13.2-15.2) H 08/27/21 04:49 Plt Count 233 K/mm3 (140-440) 08/27/21 04:49 Lymph % (Auto) Sap Developer 08/07/21 04:00 [place] % (Auto) Sap Developer 08/11/21 04:00 Eos % (Auto) 2.2 % (0.0-4.3) 08/06/21 16:35 Baso % (Auto) Sap Developer 08/07/21 04:00 Lymph # (Auto) 0.8 K/mm3 (1.2-5.4) L 08/06/21 16:35 [place] # (Auto) 0.7 K/mm3 (0.0-0.8) 08/06/21 16:35 Eos # (Auto) 0.1 K/mm3 (0.0-0.4) 08/06/21 16:35 Baso # (Auto) 0.1 K/mm3 (0.0-0.1) 08/06/21 16:35 Add Manual Diff Complete 08/27/21 04:49 Total Counted 100 08/27/21 04:49 Seg Neutrophils % Sap Developer 08/27/21 04:49 Seg Neuts % (Manual) 95.0 % (40.0-70.0) H 08/27/21 04:49 Band Neutrophils % 0 % 08/27/21 04:49 Lymphocytes % (Manual) 3.0 % (13.4-35.0) L 08/27/21 04:49 Reactive Lymphs % (Man) 0 % 08/27/21 04:49 Monocytes % (Manual) 2.0 % (0.0-7.3) 08/27/21 04:49 Eosinophils % (Manual) 0 % (0.0-4.3) 08/27/21 04:49 Basophils % (Manual) 0 % (0.0-1.8) 08/27/21 04:49 Metamyelocytes % 0 % 08/27/21 04:49 Myelocytes % 0 % 08/27/21 04:49 Promyelocytes % 0 % 08/27/21 04:49 Blast Cells % 0 % 08/27/21 04:49 Nucleated RBC % Not Reportable 08/27/21 04:49 Seg Neutrophils # 2.6 K/mm3 (1.8-7.7) 08/06/21 16:35 Seg Neutrophils # Man 8.0 K/mm3 (1.8-7.7) H 08/27/21 04:49 Band Neutrophils # 0.0 K/mm3 08/27/21 04:49 Lymphocytes # (Manual) 0.3 K/mm3 (1.2-5.4) L 08/27/21 04:49 Abs React Lymphs (Man) 0.0 K/mm3 08/27/21 04:49 Monocytes # (Manual) 0.2 K/mm3 (0.0-0.8) 08/27/21 04:49 Eosinophils # (Manual) 0.0 K/mm3 (0.0-0.4) 08/27/21 04:49 Basophils # (Manual) 0.0 K/mm3 (0.0-0.1) 08/27/21 04:49 Metamyelocytes # 0.0 K/mm3 08/27/21 04:49 Myelocytes # 0.0 K/mm3 08/27/21 04:49 Promyelocytes # 0.0 K/mm3 08/27/21 04:49 Blast Cells # 0.0 K/mm3 08/27/21 04:49 WBC Morphology Not Reportable 08/27/21 04:49 Hypersegmented Neuts Not Reportable 08/27/21 04:49 Hyposegmented Neuts Not Reportable 08/27/21 04:49 Hypogranular Neuts Not Reportable 08/27/21 04:49 Smudge Cells Not Reportable 08/27/21 04:49 Toxic Granulation Not Reportable 08/27/21 04:49 Toxic Vacuolation Not Reportable 08/27/21 04:49 Dohle Bodies Not Reportable 08/27/21 04:49 Pelger-Huet Anomaly Not Reportable 08/27/21 04:49 Claudio Rods Not Reportable 08/27/21 04:49 Platelet Estimate Consistent w auto 08/27/21 04:49 Clumped Platelets Not Reportable 08/27/21 04:49 Plt Clumps, EDTA Not Reportable 08/27/21 04:49 Large Platelets Not Reportable 08/27/21 04:49 Giant Platelets Not Reportable 08/27/21 04:49 Platelet Satelliting Not Reportable 08/27/21 04:49 Plt Morphology Comment Not Reportable 08/27/21 04:49 RBC Morphology Not Reportable 08/27/21 04:49 Dimorphic RBCs Not Reportable 08/27/21 04:49 Polychromasia Not Reportable 08/27/21 04:49 Hypochromasia 1+ 08/27/21 04:49 Poikilocytosis Not Reportable 08/27/21 04:49 Anisocytosis 1+ 08/27/21 04:49 Microcytosis Not Reportable 08/27/21 04:49 Macrocytosis Not Reportable 08/27/21 04:49 Spherocytes Not Reportable 08/27/21 04:49 Pappenheimer Bodies Not Reportable 08/27/21 04:49 Sickle Cells Not Reportable 08/27/21 04:49 Target Cells 1+ 08/27/21 04:49 Tear Drop Cells Not Reportable 08/27/21 04:49 Ovalocytes Rare 08/27/21 04:49 Helmet Cells Not Reportable 08/27/21 04:49 [place] Bodies Not Reportable 08/27/21 04:49 [place] Rings Not Reportable 08/27/21 04:49 Case Cells Not Reportable 08/27/21 04:49 Bite Cells Not Reportable 08/27/21 04:49 Crenated Cell Not Reportable 08/27/21 04:49 Elliptocytes Not Reportable 08/27/21 04:49 Acanthocytes (Spur) Not Reportable 08/27/21 04:49 Rouleaux Not Reportable 08/27/21 04:49 Hemoglobin C Crystals Not Reportable 08/27/21 04:49 Schistocytes Not Reportable 08/27/21 04:49 Malaria parasites Not Reportable 08/27/21 04:49 Aleks Bodies Not Reportable 08/27/21 04:49 Hem Pathologist Commnt No 08/27/21 04:49 PT 14.2 Sec. (12.2-14.9) 08/06/21 16:35 INR 0.99 (0.87-1.13) 08/06/21 16:35 APTT 37.1 Sec. (24.2-36.6) H 08/06/21 07:26 ABG pH 7.508 (7.320-7.450) H 08/20/21 04:25 POC ABG pCO2 35.1 mmHg (32.0-48.0) 08/20/21 04:25 ABG pCO2 41.2 mm Hg 08/09/21 04:30 POC ABG pO2 139.8 mmHg (83-108) H 08/20/21 04:25 ABG pO2 91.5 mm Hg (80.0-90.0) H 08/09/21 04:30 POC ABG HCO3 27.3 08/20/21 04:25 ABG HCO3 26.6 mmol/L (20.0-26.0) H 08/09/21 04:30 ABG O2 Saturation 99.1 (0-100) 08/20/21 04:25 ABG O2 Content 12.3 (0.0-44) 08/09/21 04:30 POC ABG Base Excess 4.0 08/20/21 04:25 ABG Base Excess 2.0 mmol/L (-2.0-3.0) 08/09/21 04:30 ABG Hemoglobin 8.2 (12.0-17.5) L 08/20/21 04:25 ABG Oxyhemoglobin 98.3 (94-98) H 08/20/21 04:25 ABG Carboxyhemoglobin 1.4 % (0.0-5.0) 08/09/21 04:30 ABG Methemoglobin 0.3 (0.0-1.5) 08/20/21 04:25 ABG Sodium 129.8 mmol/L (136.0-145.0) L 08/20/21 04:25 ABG Potassium 3.7 mmol/L (3.40-4.50) 08/20/21 04:25 ABG Chloride 96.0 mmol/L (98-107) L 08/20/21 04:25 ABG Glucose 162 mg/dL (65-95) H 08/20/21 04:25 Oxyhemoglobin 95.4 % (95.0-99.0) 08/09/21 04:30 Carboxyhemoglobin 0.5 (0.5-1.5) 08/20/21 04:25 FiO2 25 % 08/09/21 04:30 FiO2 % 30.0 08/20/21 04:25 Sodium 137 mmol/L (137-145) 08/27/21 04:49 Potassium 4.1 mmol/L (3.6-5.0) 08/27/21 04:49 Chloride 95.2 mmol/L (98-107) L 08/27/21 04:49 Carbon Dioxide 25 mmol/L (22-30) D 08/27/21 04:49 Anion Gap 21 mmol/L 08/27/21 04:49 BUN 47 mg/dL (7-17) H 08/27/21 04:49 Creatinine 4.0 mg/dL (0.6-1.2) H 08/27/21 04:49 Estimated GFR 14 ml/min 08/27/21 04:49 BUN/Creatinine Ratio 12 % 08/27/21 04:49 Glucose 155 mg/dL (65-100) H 08/27/21 04:49 POC Glucose 165 mg/dL (70-105) H 08/27/21 06:31 Lactic Acid 0.90 mmol/L (0.7-2.0) 08/25/21 09:00 Calcium 9.4 mg/dL (8.4-10.2) 08/27/21 04:49 Phosphorus 4.50 mg/dL (2.5-4.5) 08/23/21 04:35 Magnesium 2.00 mg/dL (1.7-2.3) 08/23/21 04:35 Total Bilirubin 0.30 mg/dL (0.1-1.2) 08/21/21 08:18 Direct Bilirubin < 0.2 mg/dL (0-0.2) 08/21/21 08:18 Indirect Bilirubin 0.1 mg/dL 08/21/21 08:18 AST 15 units/L (5-40) 08/21/21 08:18 ALT 14 units/L (7-56) 08/21/21 08:18 Alkaline Phosphatase 98 units/L (35-129) 08/21/21 08:18 Troponin T 0.183 ng/mL (0.00-0.029) H* D 08/05/21 18:56 Total Protein 6.0 g/dL (6.3-8.2) L 08/21/21 08:18 Albumin 2.6 g/dL (3.9-5) L 08/21/21 08:18 Albumin/Globulin Ratio 0.8 % 08/21/21 08:18 Triglycerides 433 mg/dL (2-149) H 08/20/21 06:08 Cholesterol 170 mg/dL (50-199) 08/05/21 15:55 LDL Cholesterol Direct 106 mg/dL (50-130) 08/05/21 15:55 HDL Cholesterol 32 mg/dL (40-59) L 08/05/21 15:55 Cholesterol/HDL Ratio 5.31 % 08/05/21 15:55 TSH 7.070 mlU/mL (0.270-4.200) H 08/07/21 13:30 Arterial Blood Glucose 162 mg/dL (65-95) H 08/20/21 04:25 Arterial Blood Ionized Calcium 4.8 mg/dL (4.6-5.3) 08/15/21 05:22 Coronavirus (PCR) Negative (Negative) 08/23/21 08:30 Hepatitis A IgM Ab Non-reactive (NonReactive) 08/08/21 04:26 Hep Bs Antigen Nonreactive (Negative) 08/08/21 04:26 Hep B Core IgM Ab Non-reactive (NonReactive) 08/08/21 04:26 Hepatitis C Antibody Non-reactive (NonReactive) 08/08/21 04:26 Blood Type O POSITIVE 08/20/21 15:29 Antibody Screen TNR 08/20/21 15:29 Crossmatch See Detail 08/06/21 05:30 Garza/IV: Voiding Method Incontinent Active Medications - Current Medications Current Medications: Generic Name Dose Route Start Last Admin Trade Name Freq PRN Reason Stop Dose Admin Acetaminophen 650 mg 08/06/21 16:30 08/06/21 16:30 Acetaminophen 650 Mg Rect Supp AR 650 mg Q6H PRN Administration Pain, Mild (1-3) Albuterol 2.5 mg 08/05/21 20:59 Albuterol 2.5 Mg/3 Ml Nebu IH Q4HRT PRN Shortness Of Breath Amlodipine Besylate 10 mg 08/25/21 10:00 08/26/21 12:01 Amlodipine 10 Mg Tab PO 10 mg DAILY JODI Administration Aspirin 81 mg 08/07/21 10:00 08/26/21 18:13 Aspirin 81 Mg Tab Chew PO 81 mg QDAY JODI Administration Atorvastatin Calcium 80 mg 08/05/21 22:00 08/26/21 21:58 Atorvastatin 40 Mg Tab PO 80 mg QHS JODI Administration Carvedilol 25 mg 08/26/21 10:00 08/26/21 21:59 Carvedilol 25 Mg Tab PO 25 mg BID JODI Administration Clonidine HCl 0.2 mg 08/24/21 17:00 08/24/21 17:43 Clonidine Tts 0.2 Mg/24 Hr Patch TD 0.2 mg Sa JODI Administration Clopidogrel Bisulfate 75 mg 08/10/21 10:00 08/26/21 18:13 Clopidogrel 75 Mg Tab PO 75 mg QDAY JODI Administration Dextrose 50 ml 08/17/21 18:00 Dextrose 50% In Water (25gm) 50 Ml Syringe IV Q30MIN PRN Hypoglycemia Protocol Doxazosin Mesylate 4 mg 08/26/21 12:00 08/27/21 00:16 Doxazosin 4 Mg Tab PO 4 mg QDAY JODI Administration Famotidine 10 mg 08/09/21 22:00 08/26/21 21:59 Famotidine 10 Mg Tab PO 10 mg BID JODI Administration Haloperidol Lactate 2.5 mg 08/25/21 12:00 Haloperidol Lactate 5 Mg/1 Ml Inj IV Q6HR PRN aggitation Heparin Sodium (Porcine) 5,000 unit 08/11/21 10:00 08/26/21 22:00 Heparin 5,000 Unit/1 Ml Vial SUB-Q 5,000 unit Q12HR JODI Administration Hydralazine HCl 10 mg 08/06/21 04:21 08/26/21 10:12 Hydralazine 20 Mg/1 Ml Inj IV 10 mg Q6HR PRN Administration Hypertension Hydralazine HCl 100 mg 08/25/21 09:00 08/27/21 05:16 Hydralazine 100 Mg Tab PO 100 mg Q8HR JODI Administration Hydrophilic Ointment 1 applic 08/05/21 17:25 Lip Therapy Vaseline TP Q2HR PRN Dry Lips Sodium Chloride 100 mls @ 999 mls/hr 08/14/21 17:06 Nacl 0.9% IV GLENDY PRN Hypotension Amiodarone HCl 360 mg/ 200 mls @ 16.667 mls/hr 08/23/21 12:00 08/27/21 00:25 Dextrose IV 0.5 mg/min DIRECT JODI 16.667 mls/hr Administration Protocol 0.5 MG/MIN Insulin Human Regular 0 units 08/17/21 18:00 08/27/21 06:09 Insulin Regular, Human 100 Units/1 Ml SUB-Q 2 units Q6H JODI Administration Protocol Isosorbide Dinitrate 20 mg 08/11/21 14:00 08/27/21 05:18 Isosorbide Dinitrate 20 Mg Tab PO 20 mg Q8HR JODI Administration Labetalol HCl 20 mg 08/24/21 17:00 08/26/21 04:11 Labetalol 20 Mg/4 Ml Inj IV 20 mg Q2HR PRN Administration Hypertension Lorazepam 1 mg 08/23/21 12:14 08/25/21 23:34 Lorazepam 2 Mg/Ml Vial IV 1 mg Q4H PRN Administration Agitation Losartan Potassium 100 mg 08/12/21 10:00 08/26/21 18:13 Losartan 25 Mg Tab PO 100 mg DAILY JODI Administration Methylprednisolone Sodium Succinate 40 mg 08/25/21 00:00 08/27/21 00:30 Methylprednisolone Sod Succinate 40 Mg/1 Ml Inj IV 40 mg Q8H JODI Administration Metoclopramide HCl 5 mg 08/05/21 21:03 Metoclopramide 10 Mg/2 Ml Inj IV Q6H PRN Nausea And Vomiting Multi-Ingred Cream/Lotion/Oil/Oint 1 applic 08/05/21 17:25 Mineral Oil/Petrolatum, White Ophth Oint 3.5 Gm OU Q4HR PRN Dry Eye(s) Ondansetron HCl 4 mg 08/05/21 21:03 Ondansetron 4 Mg/2 Ml Inj IV Q8H PRN Nausea And Vomiting Oxycodone/Acetaminophen 1 tab 08/05/21 21:03 08/22/21 01:52 Oxycodone /Acetaminophen 5-325mg Tab PO 1 tab Q6H PRN Administration Pain, Moderate (4-6) Senna 8.8 mg 08/07/21 13:00 08/26/21 21:00 Sennosides Oral Liqd 8.8 Mg/5 Ml Oral Liqd FEEDTUBE 8.8 mg BID JODI Administration Sodium Chloride 10 ml 08/05/21 22:00 08/26/21 21:59 Sodium Chloride 0.9% 10 Ml Flush Syringe IV 10 ml BID JODI Administration Sodium Chloride 10 ml 08/05/21 21:03 Sodium Chloride 0.9% 10 Ml Flush Syringe IV PRN PRN LINE FLUSH Nutrition/Malnutrition Assess - Dietary Evaluation Nutrition/Malnutrition Findings: Nutrition Notes Start: 08/07/21 09:12 Freq: Status: Active Protocol: Document 08/26/21 14:15 KALA (Rec: 08/26/21 14:53 KALA [id number]) Nutrition Notes Initial or Follow up Reassessment Current Diagnosis CKD (stage V CKD),Coronary Artery Disease,Diabetes, Hypertension,Heart Failure, Respiratory Failure Other Pertinent Diagnosis ESRD+HD, AICD discharge secondary to V. Tachicardia. Current Diet NPO (since 08/23 10:30). Labs/Tests 08/26: Cl 92.8, CO2 18, BUN 77 , Crea 5.6, Glu 129. Pertinent Medications 08/23: Nutritionally unremarkable. Height 5 ft 2 in Weight 64.25 kg Clint Body Weight (kg) 50.00 BMI 25.9 Weight change and time frame No body weight change reported . Weight Status Overweight Subjective/Other Information RD consult for routine F/U on TF assessment. Pt self extubated on 08/22 and has been NPO since then. Bedside swallow test failed on 08/23. Pt passes ART SUPERVISOR evaluation on , but remains NPO per neurology. Pt still waiting for placement at [place]. Percent of energy/protein needs met: Pt currently on NPO. Burn Absent Trauma Absent GI Symptoms None Food Allergy No Skin Integrity/Comment Clear, warm, dry. Current % PO Other Minimum of two criteria No #1 Nutrition Diagnosis Inadequate oral intake Comments: Pt self extubated on 08/22 and has been NPO since then. Bedside swallow test failed on 08/23. Pt passes ART SUPERVISOR evaluation on , but remains NPO per neurology. Diagnosis Progress(for reassessment Continues documentation) Is patient on ventilator? No Is Patient Ambulatory and/or Out of Bed No REE-([facility]-confined to bed) 1403.892 Calculation Used for Recommendations [facility] Additional Notes Protein: >1.2 g/Kg; >77 g/day. Fluids: 1 ml/Kcal, or as per MD. Nutrition Intervention Nutrition Support: d/c Goal #1 Resume TF to meet nutrient needs Follow-Up By: 08/28/21 Additional Comments F/U to assess TF resume or dietary advancement.
--- NOTE | 2021-08-27 10:31 | Progress Note ---
Assessment and Plan - Patient Problems (1) Hypokalemia Current Visit: Yes Status: Acute Plan to address problem: Potassium is back to normal. Follow-up (2) End stage renal disease on dialysis Current Visit: Yes Status: Chronic Plan to address problem: Hemodialysis on a Thursday, Thursday and Thursday schedule. (3) Anemia in end-stage renal disease Current Visit: Yes Status: Acute Plan to address problem: Give erythropoietin on dialysis and follow-up hemoglobin level (4) Sustained ventricular tachycardia Current Visit: Yes Status: Acute Plan to address problem: Continue management by psych coordinator. Awaiting transfer to [place] for VT ablation Subjective Date of service: 08/27/21 Principal diagnosis: VT storm, s/p ICD shocks Interval history: Patient seen lying in bed in the ICU. She is on the medical floor She is awake and communicating nonverbally. She has no complaints Objective - Exam Narrative Exam: Middle-aged female lying in no acute distress HEENT: NCAT, endotracheal tube intact Neck: Supple, no venous distention CVS: S1S2 RRR with no murmur, rub or gallop Chest: Clear to auscultation Abdomen: Protuberant, soft, nontender, no organomegaly, bowel sounds are present Extremities: 1+ pitting edema upper ext Neuro: Awake, alert, communicating nonverbally - Vital Signs Vital signs: Vital Signs - 12hr 08/27/21 08/27/21 08/27/21 00:18 03:46 04:00 Temperature 98.5 F 99.1 F Pulse Rate 70 70 98 H Respiratory 16 18 Rate Blood Pressure 156/65 181/77 O2 Sat by Pulse 100 100 Oximetry 08/27/21 08:43 Temperature Pulse Rate Respiratory Rate Blood Pressure O2 Sat by Pulse 99 Oximetry - Lab 08/27/21 04:49 08/27/21 04:49 Most recent lab results ABG pH 7.508 (7.320-7.450) H 08/20/21 04:25 ABG pCO2 41.2 mm Hg 08/09/21 04:30 ABG pO2 91.5 mm Hg (80.0-90.0) H 08/09/21 04:30 ABG HCO3 26.6 mmol/L (20.0-26.0) H 08/09/21 04:30 ABG O2 Saturation 99.1 (0-100) 08/20/21 04:25 Calcium 9.4 mg/dL (8.4-10.2) 08/27/21 04:49 Phosphorus 4.50 mg/dL (2.5-4.5) 08/23/21 04:35 Magnesium 2.00 mg/dL (1.7-2.3) 08/23/21 04:35 Medications & Allergies - Medications Allergies/Adverse Reactions: Allergies No Known Allergies Allergy (Unverified 07/10/21 20:57) Home Medications: Home Medications Medication Instructions Recorded Confirmed Last Taken Type Icosapent Ethyl [Vascepa] 2 gm PO BID 07/12/21 08/24/21 Unknown History Losartan [Cozaar] 25 mg PO BID 07/12/21 08/24/21 Unknown History ALBUTEROL NEB's [Proventil 0.083% 2.5 mg IH Q4HRT PRN nebu 07/15/21 08/24/21 Unknown Rx NEBS] Acetaminophen [Acetaminophen 650 mg MT Q4H PRN supp.rect 07/15/21 08/24/21 Unk nown Rx SUPPOS] Acetaminophen [Acetaminophen TAB] 650 mg PO Q4H PRN tablet 07/15/21 08/24/21 Unknown Rx Amiodarone [Cordarone 200 MG TAB] 200 mg PO BID tablet 07/15/21 08/24/21 Unknown Rx AtorvaSTATin [Lipitor] 80 mg PO QHS tablet 07/15/21 08/24/21 Unknown Rx Clopidogrel [Plavix] 75 mg PO QDAY tablet 07/15/21 08/24/21 Unknown Rx Dextrose 50% in Water [D50W (25GM) 50 ml IV Q30MIN PRN syringe 07/15/21 08/24/21 Unknown Rx Syringe] Free Water 60 ml PO Q4HR oral.liqd 07/15/21 08/24/21 Unknown Rx Isosorbide Dinitrate [Isordil] 5 mg PO Q8HR tablet 07/15/21 08/24/21 Unknown Rx Lipase/Protease/Amylase [Pancreaze 1 each FEEDTUBE PRN PRN capsule 07/15/21 08/24/[address] 10,500 Unit] Lispro Insulin [HumaLOG] 0 unit SUB-Q Q6HR units 07/15/21 08/24/21 Unknown Rx Metoprolol [Lopressor TAB] 25 mg PO TID tablet 07/15/21 08/24/21 Unknown Rx Simple Syrup 30 ml FEEDTUBE PRN PRN oral.liqd 07/15/21 08/24/21 Unknown Rx hydrALAZINE [Apresoline INJ] 10 mg IV Q6H PRN vial 07/15/21 08/24/21 Unknown Rx Active Medications: Generic Name Dose Route Start Last Admin Trade Name Freq PRN Reason Stop Dose Admin Acetaminophen 650 mg 08/06/21 16:30 08/06/21 16:30 Acetaminophen 650 Mg Rect Supp MT 650 mg Q6H PRN Administration Pain, Mild (1-3) Albuterol 2.5 mg 08/05/21 20:59 Albuterol 2.5 Mg/3 Ml Nebu IH Q4HRT PRN Shortness Of Breath Amlodipine Besylate 10 mg 08/25/21 10:00 08/26/21 12:01 Amlodipine 10 Mg Tab PO 10 mg DAILY JODI Administration Aspirin 81 mg 08/07/21 10:00 08/26/21 18:13 Aspirin 81 Mg Tab Chew PO 81 mg QDAY JODI Administration Atorvastatin Calcium 80 mg 08/05/21 22:00 08/26/21 21:58 Atorvastatin 40 Mg Tab PO 80 mg QHS JODI Administration Carvedilol 25 mg 08/26/21 10:00 08/26/21 21:59 Carvedilol 25 Mg Tab PO 25 mg BID JODI Administration Clonidine HCl 0.2 mg 08/24/21 17:00 08/24/21 17:43 Clonidine Tts 0.2 Mg/24 Hr Patch TD 0.2 mg Sa JODI Administration Clopidogrel Bisulfate 75 mg 08/10/21 10:00 08/26/21 18:13 Clopidogrel 75 Mg Tab PO 75 mg QDAY JODI Administration Dextrose 50 ml 08/17/21 18:00 Dextrose 50% In Water (25gm) 50 Ml Syringe IV Q30MIN PRN Hypoglycemia Protocol Doxazosin Mesylate 4 mg 08/26/21 12:00 08/27/21 00:16 Doxazosin 4 Mg Tab PO 4 mg QDAY JODI Administration Famotidine 10 mg 08/09/21 22:00 08/26/21 21:59 Famotidine 10 Mg Tab PO 10 mg BID JODI Administration Haloperidol Lactate 2.5 mg 08/25/21 12:00 Haloperidol Lactate 5 Mg/1 Ml Inj IV Q6HR PRN aggitation Heparin Sodium (Porcine) 5,000 unit 08/11/21 10:00 08/26/21 22:00 Heparin 5,000 Unit/1 Ml Vial SUB-Q 5,000 unit Q12HR JODI Administration Hydralazine HCl 10 mg 08/06/21 04:21 08/26/21 10:12 Hydralazine 20 Mg/1 Ml Inj IV 10 mg Q6HR PRN Administration Hypertension Hydralazine HCl 100 mg 08/25/21 09:00 08/27/21 05:16 Hydralazine 100 Mg Tab PO 100 mg Q8HR JODI Administration Hydrophilic Ointment 1 applic 08/05/21 17:25 Lip Therapy Vaseline TP Q2HR PRN Dry Lips Sodium Chloride 100 mls @ 999 mls/hr 08/14/21 17:06 Nacl 0.9% IV GLENDY PRN Hypotension Amiodarone HCl 360 mg/ 200 mls @ 16.667 mls/hr 08/23/21 12:00 08/27/21 00:25 Dextrose IV 0.5 mg/min DIRECT JODI 16.667 mls/hr Administration Protocol 0.5 MG/MIN Insulin Human Regular 0 units 08/17/21 18:00 08/27/21 06:09 Insulin Regular, Human 100 Units/1 Ml SUB-Q 2 units Q6H JODI Administration Protocol Isosorbide Dinitrate 20 mg 08/11/21 14:00 08/27/21 05:18 Isosorbide Dinitrate 20 Mg Tab PO 20 mg Q8HR JODI Administration Labetalol HCl 20 mg 08/24/21 17:00 08/26/21 04:11 Labetalol 20 Mg/4 Ml Inj IV 20 mg Q2HR PRN Administration Hypertension Lorazepam 1 mg 08/23/21 12:14 08/25/21 23:34 Lorazepam 2 Mg/Ml Vial IV 1 mg Q4H PRN Administration Agitation Losartan Potassium 100 mg 08/12/21 10:00 08/26/21 18:13 Losartan 25 Mg Tab PO 100 mg DAILY JODI Administration Methylprednisolone Sodium Succinate 40 mg 08/25/21 00:00 08/27/21 00:30 Methylprednisolone Sod Succinate 40 Mg/1 Ml Inj IV 40 mg Q8H JODI Administration Metoclopramide HCl 5 mg 08/05/21 21:03 Metoclopramide 10 Mg/2 Ml Inj IV Q6H PRN Nausea And Vomiting Multi-Ingred Cream/Lotion/Oil/Oint 1 applic 08/05/21 17:25 Mineral Oil/Petrolatum, White Ophth Oint 3.5 Gm OU Q4HR PRN Dry Eye(s) Ondansetron HCl 4 mg 08/05/21 21:03 Ondansetron 4 Mg/2 Ml Inj IV Q8H PRN Nausea And Vomiting Oxycodone/Acetaminophen 1 tab 08/05/21 21:03 08/22/21 01:52 Oxycodone /Acetaminophen 5-325mg Tab PO 1 tab Q6H PRN Administration Pain, Moderate (4-6) Senna 8.8 mg 08/07/21 13:00 08/26/21 21:00 Sennosides Oral Liqd 8.8 Mg/5 Ml Oral Liqd FEEDTUBE 8.8 mg BID JODI Administration Sodium Chloride 10 ml 08/05/21 22:00 08/26/21 21:59 Sodium Chloride 0.9% 10 Ml Flush Syringe IV 10 ml BID JODI Administration Sodium Chloride 10 ml 08/05/21 21:03 Sodium Chloride 0.9% 10 Ml Flush Syringe IV PRN PRN LINE FLUSH
[2021-08-27] MEDS: carvediloL 25 MG TAB PO SCH ×2 (11:43→21:25)
[2021-08-27] MEDS: LOSARTAN 25 MG TAB PO SCH (11:43)
[2021-08-27] MEDS: CLOPIDOGREL 75 MG TAB PO SCH (11:43)
[2021-08-27] MEDS: FAMOTIDINE 10 MG TAB PO SCH ×2 (11:43→21:24)
[2021-08-27] MEDS: ASPIRIN 81 MG TAB CHEW PO SCH (11:43)
[2021-08-27] MEDS: HEPARIN 5,000 UNIT/1 ML VIAL SUB-Q SCH ×2 (11:44→21:25)
[2021-08-27] MEDS: amLODIPine 10 MG TAB PO SCH (11:44)
[2021-08-27] MEDS: SENNOSIDES ORAL LIQD 8.8 MG/5 ML ORAL LIQD FEEDTUBE SCH ×2 (12:48→23:46)
--- NOTE | 2021-08-27 14:15 | Progress Note ---
Assessment and Plan Patient is a 60-year-old female with recurrent V. tach, end-stage renal disease, s/p ICD, and recurrent severe hypokalemia VT Storm Recurrent AICD Discharges CAD s/p PCI (07/17/2021) Accelerated HTN ESRD on HD Hyponatremia Severe Hypokalemia (POA, resolved) Anemia Thrombocytopenia Type 2 TN HTN H/o CVA Plan: Contacted [facility] transfer service regarding bed availability at [facility]. Was informed by transfer service that once patient was transported to telemetry floor [facility] was supposed to let [facility] know for bed availability. [facility] never contacted [facility]. [facility] reports reaching out and trying to contact [facility] to transfer patient. [facility] received no call back and therefore they canceled transferred request. Spoke with [facility] to reinitiate transfer Currently waiting bed availability at [facility] for transfer for VT ablation Continue aspirin, Plavix, Lipitor, losartan 100 mg p.o. daily and Coreg 25 mg p.o. twice daily, Stop IV amiodarone drip. Convert to amiodarone 200 mg p.o. twice daily Patient seen in conjunction with Dr. Padilla who agrees with this plan of care - Patient Problems (1) AICD discharge Current Visit: Yes Status: Acute (2) Anemia in end-stage renal disease Current Visit: Yes Status: Acute (3) Elevated troponin Current Visit: Yes Status: Acute (4) Hypokalemia Current Visit: Yes Status: Acute (5) Sustained ventricular tachycardia Current Visit: Yes Status: Acute (6) Diabetes Current Visit: No Status: Acute (7) Respiratory failure Current Visit: No Status: Acute Qualifiers: Chronicity: acute Respiratory failure complication: hypoxia Qualified Code(s): J96.01 - Acute respiratory failure with hypoxia (8) Hypertension Current Visit: Yes Status: Chronic Qualifiers: Hypertension type: primary hypertension Qualified Code(s): I10 - Essential (primary) hypertension Subjective Date of service: 08/27/21 Principal diagnosis: VT storm, s/p ICD shocks Interval history: Patient patient resting in bed in no acute distress Patient A paced 70 no events on monitor Objective Vital Signs Temp Pulse Resp BP BP Pulse Ox Pulse Ox 08/27/21 08:43 99 08/27/21 08:00 98.9 F 90 18 161/74 98 08/27/21 04:00 98 H 08/27/21 03:46 99.1 F 70 18 181/77 100 08/27/21 00:18 98.5 F 70 16 156/65 100 08/26/21 22:00 93 08/26/21 21:59 89 189/89 08/26/21 21:15 95 08/26/21 20:30 98.7 F 71 16 182/78 99 08/26/21 17:05 98.9 F 18 189/70 08/26/21 16:10 98.8 F 69 18 209/93 99 08/26/21 15:45 69 208/50 08/26/21 15:30 69 208/81 08/26/21 15:15 69 209/87 08/26/21 15:00 69 207/81 08/26/21 14:45 69 194/76 08/26/21 14:30 69 192/81 08/26/21 14:15 69 178/77 Pulse Ox Pulse Ox Pulse Ox 08/27/21 08:43 08/27/21 08:00 08/27/21 04:00 08/27/21 03:46 08/27/21 00:18 08/26/21 22:00 08/26/21 21:59 08/26/21 21:15 08/26/21 20:30 08/26/21 17:05 08/26/21 16:10 99 98 98 08/26/21 15:45 08/26/21 15:30 08/26/21 15:15 08/26/21 15:00 08/26/21 14:45 08/26/21 14:30 08/26/21 14:15 - Physical Examination General: No Apparent Distress HEENT: Positive: EOMI, Normocephaly, Mucus Membranes Moist, Mucus Membranes Dry Neck: Positive: neck supple, trachea midline. Negative: JVD/HJR Cardiac: Positive: Reg Rate and Rhythm Lungs: Positive: Decreased Breath Sounds Neuro: Positive: Grossly Intact Abdomen: Positive: Soft, Active Bowel Sounds. Negative: Tender Skin: Positive: Clear. Negative: Rash Musculoskeletal: Normal Range of Motion Extremities: Absent: edema - Labs and Meds CBC 08/27/21 Range/Units 04:49 WBC 8.4 (4.5-11.0) K/mm3 RBC 2.86 L (3.65-5.03) M/mm3 Hgb 7.6 L (10.1-14.3) gm/dl Hct 23.7 L (30.3-42.9) % Plt Count 233 (140-440) K/mm3 Comprehensive Metabolic Panel 08/27/21 Range/Units 04:49 Sodium 137 (137-145) mmol/L Potassium 4.1 (3.6-5.0) mmol/L Chloride 95.2 L (98-107) mmol/L Carbon Dioxide 25 D (22-30) mmol/L BUN 47 H (7-17) mg/dL Creatinine 4.0 H (0.6-1.2) mg/dL Glucose 155 H (65-100) mg/dL Calcium 9.4 (8.4-10.2) mg/dL - Imaging and Cardiology EKG: report reviewed, image reviewed Echo: report reviewed Cardiac cath: report reviewed - Telemetry EKG Rhythm: Paced - EKG Sinus rhythms and dysrhythmias: sinus rhythm Repolarization changes or abnormalities: Q-T interval prolongation Myocardial infarction: anterior TN (old age or i Pacemaker: atrial pacing w/capture - Allied health notes Allied health notes reviewed: nursing
[2021-08-27] MEDS: AMIODARONE 200 MG TAB PO SCH ×2 (15:34→21:24)
--- NOTE | 2021-08-27 17:32 | Progress Note ---
Assessment and Plan 60 y/o female with known VT in the past, systolic heart failure with BIV AICD admitted with recurrent VT and electrolyte abnormality 08/27/21: Stable pulm status. await transport for ablation and ENT eval. Will continue to follow. 08/26/21: passed her swallow eval so back on oral therapy for BP. HD per renal. Can repeat CXR tomorrow but clinically she has improved. 08/25/21: would try nitropast to chest to see if this helps and askk renal if she could be dialyzed early tomorrow. If no improvement, this could be aspiration and she would just need time and support. Still stable for transfer to [facility] for VT ablation. Will continue to follow. 08/24/21: needs ENT eval once transferred to [facility]. Suggest changing steroids to 40q8 starting tomorrow. Keep bipap QHS and PRN for now. HD and blood pressure control per renal 08/23/21: Given stability over the last 24 hours, will give trial of transfer to floor. Patient failed swallow eval so can only have IV meds for rate control and BP. Continue NPO status. Continue nocturnal NIV. Guarded prognosis. Needs ENT and EP when she goes to [place]. 08/22/21: Not a candidate for extubation until evaluated by ENT and they review images. ENT not available at this hospital. Now she needs transfer more than ever as she has two issues that we are not able to manage currently. Continue supportive care. Daily PSV trials off sedation. Not sure that steroids are helping, will likely stop tomorrow after discussing on rounds. 08/21/21: No leak on test today. Will do neck CT noncontrast to look for extrisinc issues or potential swelling. Will consult surgery for trach and peg. Await bed at [facility]. Guarded prognosis. 08/20/21: Leak test today. If not audible leak, then will give 2 of FFP. Daily leak test should be performed. may need trach if FFP does not work. No runs of VT stable. If bed becomes available at [place] will transfer. 08/19/21: Continue IV steroids until leak test today. If leak is present will likely stop steroids. Will consider extubation yet again however if fails this time will need trach. Continue rate control therapy. Guarded prognosis. 08/16/21: Still no beds at [place]. Will do a leak test this afternoon. If no leak, then will start IV steroid therapy. Patient was only intubated for airway protection to help with catecholamine storm associated with VT storm. No prior lung disease. The multiple intubation may have caused some scarring in the trachea but right now this is not known. Continue supportive measures but may end up needing trach. 08/15/21: Will discuss with CM if any further news on [facility] acceptance. Attempt PSV trials today. BP still elevated and still on Cardene despite increase in med therapy. Will discuss with [facility], and renal, and pharm on rounds. 08/14/21: Given no ICU beds at [place], will attempt to transfer to [facility] with hopes that patient can get ablation and then be transferred back over for further vent weaning. 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 Agree with [facility] increasing therapy for HTN. Will attempt to wean Cardene 08/13/21: Will start Clonidine 0.1 TID given her persistent need for Cardene drip. Will extubate today and transfer to [facility] floor. Hoping this will help the patient get a bed faster at [place]. Rate control per [facility]. 08/12/21: Will discontinue cardene while on HD as goal is to pull 3 liters. Will speak with [facility] and ask them to call [place] to see if they have a time frame. Continue supportive measures. Remains on Amio Drip. 08/08/21: Continue supportive measures. Follow up any new cardiac recs. 08/07/21: Await transfer to [place], continue supportive measures Follow up [facility] recs most likely needs ablation at [facility] Continue amio drip per [facility] CCt 31 minutes. Subjective Date of service: 08/27/21 Principal diagnosis: VT storm, s/p ICD shocks Interval history: Stable pulm status Objective Vital Signs - 12hr 08/27/21 08/27/21 08/27/21 08:00 08:43 10:00 Temperature 98.9 F Pulse Rate 90 Respiratory 18 18 Rate Blood Pressure 161/74 [Right] O2 Sat by Pulse 98 99 98 Oximetry Constitutional: alert, other (intubated ) Eyes: non-icteric ENT: other (orally intubated, lips swollen) Neck: supple Effort: normal Ascultation: Bilateral: clear Percussion: Bilateral: not dull Cardiovascular: regular rate and rhythm (no mrg) Gastrointestinal: normoactive bowel sounds, soft, non-tender, non-distended Integumentary: normal Extremities: no cyanosis, no edema, pink and warm Neurologic: other (follows commands) Psychiatric: other (unable to assess) CBC and BMP: 08/27/21 04:49 08/27/21 04:49 ABG, PT/INR, D-dimer: ABG ABG pH 7.508 (7.320-7.450) H 08/20/21 04:25 POC ABG pCO2 35.1 mmHg (32.0-48.0) 08/20/21 04:25 ABG pCO2 41.2 mm Hg 08/09/21 04:30 POC ABG pO2 139.8 mmHg (83-108) H 08/20/21 04:25 ABG pO2 91.5 mm Hg (80.0-90.0) H 08/09/21 04:30 POC ABG HCO3 27.3 08/20/21 04:25 ABG O2 Saturation 99.1 (0-100) 08/20/21 04:25 PT/INR, D-dimer PT 14.2 Sec. (12.2-14.9) 08/06/21 16:35 INR 0.99 (0.87-1.13) 08/06/21 16:35 Abnormal lab findings: Abnormal Labs 08/05/21 08/05/21 08/05/21 15:55 15:55 18:50 WBC 3.7 L RBC 2.98 L Hgb 7.5 L Hct 23.8 L MCH 25 L RDW 18.9 H Plt Count 134 L Lymph % (Auto) [place] % (Auto) Lymph # (Auto) Seg Neutrophils % Seg Neuts % (Manual) Lymphocytes % (Manual) Monocytes % (Manual) 18.0 H Eosinophils % (Manual) Basophils % (Manual) 2.0 H Nucleated RBC % Seg Neutrophils # Seg Neutrophils # Man Lymphocytes # (Manual) 0.9 L Monocytes # (Manual) APTT ABG pH 7.523 H POC ABG pCO2 POC ABG pO2 ABG pO2 47.1 L ABG HCO3 34.6 H ABG O2 Saturation 85.4 L ABG Base Excess 10.8 H ABG Hemoglobin 7.3 L ABG Oxyhemoglobin ABG Sodium ABG Potassium ABG Chloride ABG Glucose Oxyhemoglobin 83.6 L Carboxyhemoglobin Sodium Potassium 2.7 L* Chloride 93.8 L Carbon Dioxide 33 H BUN Creatinine 2.8 H Glucose 124 H POC Glucose Calcium 8.2 L Phosphorus ALT < 5 L Troponin T 0.126 H* Total Protein Albumin 3.5 L Triglycerides 202 H HDL Cholesterol 32 L TSH Arterial Blood Glucose Crossmatch 08/05/21 08/05/21 08/06/21 18:56 Unknown 04:20 WBC RBC Hgb Hct MCH RDW Plt Count Lymph % (Auto) [place] % (Auto) Lymph # (Auto) Seg Neutrophils % Seg Neuts % (Manual) Lymphocytes % (Manual) Monocytes % (Manual) Eosinophils % (Manual) Basophils % (Manual) Nucleated RBC % Seg Neutrophils # Seg Neutrophils # Man Lymphocytes # (Manual) Monocytes # (Manual) APTT ABG pH 7.575 H 7.606 H* POC ABG pCO2 POC ABG pO2 ABG pO2 142.9 H 111.2 H ABG HCO3 33.2 H 33.6 H ABG O2 Saturation ABG Base Excess 10.4 H 11.2 H ABG Hemoglobin 6.6 L 6.8 L ABG Oxyhemoglobin ABG Sodium ABG Potassium ABG Chloride ABG Glucose Oxyhemoglobin Carboxyhemoglobin Sodium Potassium Chloride Carbon Dioxide BUN Creatinine Glucose POC Glucose Calcium Phosphorus ALT Troponin T 0.183 H* D Total Protein Albumin Triglycerides HDL Cholesterol TSH Arterial Blood Glucose Crossmatch 08/06/21 08/06/21 08/06/21 04:29 04:29 04:29 WBC 2.5 L RBC 2.70 L Hgb 6.8 L Hct 21.3 L MCH 25 L RDW 18.1 H Plt Count 126 L Lymph % (Auto) 45.0 H [place] % (Auto) 13.6 H Lymph # (Auto) 1.1 L Seg Neutrophils % 37.3 L Seg Neuts % (Manual) Lymphocytes % (Manual) Monocytes % (Manual) Eosinophils % (Manual) Basophils % (Manual) Nucleated RBC % Seg Neutrophils # 0.9 L Seg Neutrophils # Man Lymphocytes # (Manual) Monocytes # (Manual) APTT 38.8 H ABG pH POC ABG pCO2 POC ABG pO2 ABG pO2 ABG HCO3 ABG O2 Saturation ABG Base Excess ABG Hemoglobin ABG Oxyhemoglobin ABG Sodium ABG Potassium ABG Chloride ABG Glucose Oxyhemoglobin Carboxyhemoglobin Sodium 136 L Potassium 3.0 L Chloride 92.6 L Carbon Dioxide 32 H BUN Creatinine 3.8 H Glucose POC Glucose Calcium Phosphorus ALT Troponin T Total Protein 5.8 L Albumin 3.1 L Triglycerides HDL Cholesterol TSH Arterial Blood Glucose Crossmatch 08/06/21 08/06/21 08/06/21 05:30 07:26 07:26 WBC RBC Hgb 7.0 L Hct 22.5 L MCH RDW Plt Count 127 L Lymph % (Auto) [place] % (Auto) Lymph # (Auto) Seg Neutrophils % Seg Neuts % (Manual) Lymphocytes % (Manual) Monocytes % (Manual) Eosinophils % (Manual) Basophils % (Manual) Nucleated RBC % Seg Neutrophils # Seg Neutrophils # Man Lymphocytes # (Manual) Monocytes # (Manual) APTT 37.1 H ABG pH POC ABG pCO2 POC ABG pO2 ABG pO2 ABG HCO3 ABG O2 Saturation ABG Base Excess ABG Hemoglobin ABG Oxyhemoglobin ABG Sodium ABG Potassium ABG Chloride ABG Glucose Oxyhemoglobin Carboxyhemoglobin Sodium Potassium Chloride Carbon Dioxide BUN Creatinine Glucose POC Glucose Calcium Phosphorus ALT Troponin T Total Protein Albumin Triglycerides HDL Cholesterol TSH Arterial Blood Glucose Crossmatch See Detail 08/06/21 08/06/21 08/06/21 08:06 14:50 16:03 WBC RBC Hgb Hct MCH RDW Plt Count Lymph % (Auto) [place] % (Auto) Lymph # (Auto) Seg Neutrophils % Seg Neuts % (Manual) Lymphocytes % (Manual) Monocytes % (Manual) Eosinophils % (Manual) Basophils % (Manual) Nucleated RBC % Seg Neutrophils # Seg Neutrophils # Man Lymphocytes # (Manual) Monocytes # (Manual) APTT ABG pH POC ABG pCO2 POC ABG pO2 ABG pO2 ABG HCO3 ABG O2 Saturation ABG Base Excess ABG Hemoglobin ABG Oxyhemoglobin ABG Sodium ABG Potassium ABG Chloride ABG Glucose Oxyhemoglobin Carboxyhemoglobin Sodium Potassium 3.1 L Chloride 92.4 L Carbon Dioxide 33 H BUN Creatinine 3.9 H Glucose POC Glucose 59 L 121 H Calcium Phosphorus ALT Troponin T Total Protein Albumin Triglycerides HDL Cholesterol TSH Arterial Blood Glucose Crossmatch 08/06/21 08/06/21 08/06/21 16:35 16:35 17:31 WBC 4.2 L RBC 3.27 L Hgb 8.5 L Hct 26.8 L MCH 26 L RDW 18.7 H Plt Count 124 L Lymph % (Auto) [place] % (Auto) 15.5 H Lymph # (Auto) 0.8 L Seg Neutrophils % Seg Neuts % (Manual) Lymphocytes % (Manual) Monocytes % (Manual) Eosinophils % (Manual) Basophils % (Manual) Nucleated RBC % Seg Neutrophils # Seg Neutrophils # Man Lymphocytes # (Manual) Monocytes # (Manual) APTT ABG pH POC ABG pCO2 POC ABG pO2 ABG pO2 ABG HCO3 ABG O2 Saturation ABG Base Excess ABG Hemoglobin ABG Oxyhemoglobin ABG Sodium ABG Potassium ABG Chloride ABG Glucose Oxyhemoglobin Carboxyhemoglobin Sodium 133 L Potassium Chloride 93.2 L Carbon Dioxide BUN 21 H Creatinine 4.6 H Glucose POC Glucose 62 L Calcium 8.3 L Phosphorus ALT Troponin T Total Protein 6.2 L Albumin 3.2 L Triglycerides HDL Cholesterol TSH Arterial Blood Glucose Crossmatch 08/06/21 08/06/21 08/07/21 18:14 18:22 04:00 WBC 1.0 L* RBC 2.67 L Hgb 7.0 L Hct 21.8 L MCH 26 L RDW 18.7 H Plt Count 82 L Lymph % (Auto) [place] % (Auto) Lymph # (Auto) Seg Neutrophils % Seg Neuts % (Manual) 16.0 L Lymphocytes % (Manual) 60.0 H Monocytes % (Manual) Eosinophils % (Manual) 11.0 H Basophils % (Manual) 4.0 H Nucleated RBC % Seg Neutrophils # Seg Neutrophils # Man 0.2 L Lymphocytes # (Manual) 0.6 L Monocytes # (Manual) APTT ABG pH 7.565 H POC ABG pCO2 POC ABG pO2 ABG pO2 113.3 H ABG HCO3 29.4 H ABG O2 Saturation ABG Base Excess 6.9 H ABG Hemoglobin 8.3 L ABG Oxyhemoglobin ABG Sodium ABG Potassium ABG Chloride ABG Glucose Oxyhemoglobin Carboxyhemoglobin Sodium Potassium Chloride Carbon Dioxide BUN Creatinine Glucose POC Glucose 148 H Calcium Phosphorus ALT Troponin T Total Protein Albumin Triglycerides HDL Cholesterol TSH Arterial Blood Glucose Crossmatch 08/07/21 08/07/21 08/07/21 04:00 04:25 08:30 WBC RBC Hgb Hct MCH RDW Plt Count Lymph % (Auto) [place] % (Auto) Lymph # (Auto) Seg Neutrophils % Seg Neuts % (Manual) Lymphocytes % (Manual) Monocytes % (Manual) Eosinophils % (Manual) Basophils % (Manual) Nucleated RBC % Seg Neutrophils # Seg Neutrophils # Man Lymphocytes # (Manual) Monocytes # (Manual) APTT ABG pH 7.609 H* 7.479 H POC ABG pCO2 POC ABG pO2 ABG pO2 121.4 H 130.2 H ABG HCO3 28.5 H 30.3 H ABG O2 Saturation ABG Base Excess 7.2 H 6.2 H ABG Hemoglobin 10.7 L 8.1 L ABG Oxyhemoglobin ABG Sodium ABG Potassium ABG Chloride ABG Glucose Oxyhemoglobin Carboxyhemoglobin Sodium 133 L Potassium 3.2 L D Chloride 93.9 L Carbon Dioxide BUN 23 H Creatinine 4.3 H Glucose POC Glucose Calcium 8.1 L Phosphorus ALT Troponin T Total Protein Albumin Triglycerides HDL Cholesterol TSH Arterial Blood Glucose Crossmatch 08/07/21 08/07/21 08/07/21 13:18 13:30 15:51 WBC RBC Hgb Hct MCH RDW Plt Count Lymph % (Auto) [place] % (Auto) Lymph # (Auto) Seg Neutrophils % Seg Neuts % (Manual) Lymphocytes % (Manual) Monocytes % (Manual) Eosinophils % (Manual) Basophils % (Manual) Nucleated RBC % Seg Neutrophils # Seg Neutrophils # Man Lymphocytes # (Manual) Monocytes # (Manual) APTT ABG pH POC ABG pCO2 POC ABG pO2 ABG pO2 ABG HCO3 ABG O2 Saturation ABG Base Excess ABG Hemoglobin ABG Oxyhemoglobin ABG Sodium ABG Potassium ABG Chloride ABG Glucose Oxyhemoglobin Carboxyhemoglobin Sodium Potassium Chloride Carbon Dioxide BUN Creatinine Glucose POC Glucose 67 L 58 L Calcium Phosphorus ALT Troponin T Total Protein Albumin Triglycerides HDL Cholesterol TSH 7.070 H Arterial Blood Glucose Crossmatch 08/08/21 08/08/21 08/08/21 04:19 04:26 04:26 WBC RBC Hgb 6.8 L Hct 21.6 L MCH RDW Plt Count 91 L Lymph % (Auto) [place] % (Auto) Lymph # (Auto) Seg Neutrophils % Seg Neuts % (Manual) Lymphocytes % (Manual) Monocytes % (Manual) Eosinophils % (Manual) Basophils % (Manual) Nucleated RBC % Seg Neutrophils # Seg Neutrophils # Man Lymphocytes # (Manual) Monocytes # (Manual) APTT ABG pH 7.545 H POC ABG pCO2 POC ABG pO2 ABG pO2 136.1 H ABG HCO3 27.3 H ABG O2 Saturation ABG Base Excess 4.5 H ABG Hemoglobin 6.9 L ABG Oxyhemoglobin ABG Sodium ABG Potassium ABG Chloride ABG Glucose Oxyhemoglobin Carboxyhemoglobin Sodium 132 L Potassium Chloride 93.5 L Carbon Dioxide BUN Creatinine 3.7 H Glucose POC Glucose Calcium Phosphorus ALT Troponin T Total Protein Albumin Triglycerides HDL Cholesterol TSH Arterial Blood Glucose Crossmatch 08/08/21 08/08/21 08/08/21 09:45 12:23 18:51 WBC RBC Hgb Hct MCH RDW Plt Count Lymph % (Auto) [place] % (Auto) Lymph # (Auto) Seg Neutrophils % Seg Neuts % (Manual) Lymphocytes % (Manual) Monocytes % (Manual) Eosinophils % (Manual) Basophils % (Manual) Nucleated RBC % Seg Neutrophils # Seg Neutrophils # Man Lymphocytes # (Manual) Monocytes # (Manual) APTT ABG pH 7.471 H POC ABG pCO2 POC ABG pO2 71.1 L ABG pO2 ABG HCO3 ABG O2 Saturation ABG Base Excess ABG Hemoglobin ABG Oxyhemoglobin ABG Sodium 128.9 L ABG Potassium ABG Chloride 95.0 L ABG Glucose 64 L Oxyhemoglobin Carboxyhemoglobin Sodium Potassium Chloride Carbon Dioxide BUN Creatinine Glucose POC Glucose 58 L 68 L Calcium Phosphorus ALT Troponin T Total Protein Albumin Triglycerides HDL Cholesterol TSH Arterial Blood Glucose 64 L Crossmatch 08/09/21 08/09/21 08/09/21 04:30 04:33 04:33 WBC 2.4 L RBC 3.16 L Hgb 8.3 L Hct 26.5 L MCH 26 L RDW 18.3 H Plt Count 113 L Lymph % (Auto) [place] % (Auto) Lymph # (Auto) Seg Neutrophils % Seg Neuts % (Manual) Lymphocytes % (Manual) Monocytes % (Manual) Eosinophils % (Manual) Basophils % (Manual) Nucleated RBC % Seg Neutrophils # Seg Neutrophils # Man Lymphocytes # (Manual) Monocytes # (Manual) APTT ABG pH POC ABG pCO2 POC ABG pO2 ABG pO2 91.5 H ABG HCO3 26.6 H ABG O2 Saturation ABG Base Excess ABG Hemoglobin 9.0 L ABG Oxyhemoglobin ABG Sodium ABG Potassium ABG Chloride ABG Glucose Oxyhemoglobin Carboxyhemoglobin Sodium 129 L Potassium Chloride 91.9 L Carbon Dioxide BUN 22 H Creatinine 4.7 H Glucose POC Glucose Calcium Phosphorus ALT Troponin T Total Protein Albumin Triglycerides HDL Cholesterol TSH Arterial Blood Glucose Crossmatch 08/10/21 08/10/21 08/10/21 04:00 04:00 04:55 WBC 3.3 L RBC 3.32 L Hgb 8.9 L Hct 27.6 L MCH 27 L RDW 18.3 H Plt Count Lymph % (Auto) [place] % (Auto) Lymph # (Auto) Seg Neutrophils % Seg Neuts % (Manual) Lymphocytes % (Manual) Monocytes % (Manual) 9.0 H Eosinophils % (Manual) Basophils % (Manual) Nucleated RBC % Seg Neutrophils # Seg Neutrophils # Man Lymphocytes # (Manual) 0.6 L Monocytes # (Manual) APTT ABG pH POC ABG pCO2 POC ABG pO2 ABG pO2 ABG HCO3 ABG O2 Saturation ABG Base Excess ABG Hemoglobin 9.6 L ABG Oxyhemoglobin ABG Sodium 120.3 L ABG Potassium 5.2 H ABG Chloride 88.0 L ABG Glucose Oxyhemoglobin Carboxyhemoglobin 0.4 L Sodium 123 L Potassium 5.5 H D Chloride 84.8 L Carbon Dioxide BUN 30 H Creatinine 5.5 H Glucose 139 H POC Glucose Calcium Phosphorus 5.90 H ALT Troponin T Total Protein Albumin Triglycerides HDL Cholesterol TSH Arterial Blood Glucose Crossmatch 08/10/21 08/11/21 08/11/21 12:17 04:00 05:53 WBC RBC 3.50 L Hgb 9.2 L Hct 29.0 L MCH 26 L RDW 18.4 H Plt Count Lymph % (Auto) [place] % (Auto) Lymph # (Auto) Seg Neutrophils % Seg Neuts % (Manual) 76.0 H Lymphocytes % (Manual) 8.0 L Monocytes % (Manual) 13.0 H Eosinophils % (Manual) Basophils % (Manual) Nucleated RBC % Seg Neutrophils # Seg Neutrophils # Man Lymphocytes # (Manual) 0.6 L Monocytes # (Manual) 0.9 H APTT ABG pH POC ABG pCO2 POC ABG pO2 ABG pO2 ABG HCO3 ABG O2 Saturation ABG Base Excess ABG Hemoglobin ABG Oxyhemoglobin ABG Sodium ABG Potassium ABG Chloride ABG Glucose Oxyhemoglobin Carboxyhemoglobin Sodium 128 L Potassium Chloride 90.3 L Carbon Dioxide BUN 24 H Creatinine 4.3 H Glucose 135 H POC Glucose 142 H Calcium Phosphorus ALT Troponin T Total Protein Albumin Triglycerides HDL Cholesterol TSH Arterial Blood Glucose Crossmatch 08/11/21 08/12/21 08/12/21 16:39 05:23 05:23 WBC RBC 3.20 L Hgb 8.8 L Hct 26.7 L MCH RDW 18.6 H Plt Count Lymph % (Auto) [place] % (Auto) Lymph # (Auto) Seg Neutrophils % Seg Neuts % (Manual) Lymphocytes % (Manual) Monocytes % (Manual) Eosinophils % (Manual) Basophils % (Manual) Nucleated RBC % Seg Neutrophils # Seg Neutrophils # Man Lymphocytes # (Manual) Monocytes # (Manual) APTT ABG pH POC ABG pCO2 POC ABG pO2 ABG pO2 ABG HCO3 ABG O2 Saturation ABG Base Excess ABG Hemoglobin ABG Oxyhemoglobin ABG Sodium ABG Potassium ABG Chloride ABG Glucose Oxyhemoglobin Carboxyhemoglobin Sodium 125 L Potassium Chloride 86.6 L Carbon Dioxide 21 L BUN 34 H Creatinine 5.0 H Glucose 111 H POC Glucose 112 H Calcium Phosphorus ALT Troponin T Total Protein Albumin Triglycerides HDL Cholesterol TSH Arterial Blood Glucose Crossmatch 08/12/21 08/12/21 08/13/21 12:18 17:56 06:01 WBC RBC Hgb Hct MCH RDW Plt Count Lymph % (Auto) [place] % (Auto) Lymph # (Auto) Seg Neutrophils % Seg Neuts % (Manual) Lymphocytes % (Manual) Monocytes % (Manual) Eosinophils % (Manual) Basophils % (Manual) Nucleated RBC % Seg Neutrophils # Seg Neutrophils # Man Lymphocytes # (Manual) Monocytes # (Manual) APTT ABG pH POC ABG pCO2 POC ABG pO2 ABG pO2 ABG HCO3 ABG O2 Saturation ABG Base Excess ABG Hemoglobin ABG Oxyhemoglobin ABG Sodium ABG Potassium ABG Chloride ABG Glucose Oxyhemoglobin Carboxyhemoglobin Sodium Potassium Chloride Carbon Dioxide BUN Creatinine Glucose POC Glucose 140 H 119 H 110 H Calcium Phosphorus ALT Troponin T Total Protein Albumin Triglycerides HDL Cholesterol TSH Arterial Blood Glucose Crossmatch 08/13/21 08/13/21 08/14/21 Unknown Unknown 04:00 WBC RBC Hgb Hct MCH RDW Plt Count Lymph % (Auto) [place] % (Auto) Lymph # (Auto) Seg Neutrophils % Seg Neuts % (Manual) Lymphocytes % (Manual) Monocytes % (Manual) Eosinophils % (Manual) Basophils % (Manual) Nucleated RBC % Seg Neutrophils # Seg Neutrophils # Man Lymphocytes # (Manual) Monocytes # (Manual) APTT ABG pH POC ABG pCO2 POC ABG pO2 ABG pO2 ABG HCO3 ABG O2 Saturation ABG Base Excess ABG Hemoglobin ABG Oxyhemoglobin ABG Sodium ABG Potassium ABG Chloride ABG Glucose Oxyhemoglobin Carboxyhemoglobin Sodium 129 L 128 L Potassium Chloride 90.1 L 89.7 L Carbon Dioxide BUN 24 H 36 H Creatinine 3.8 H 4.2 H Glucose POC Glucose Calcium Phosphorus ALT Troponin T Total Protein Albumin Triglycerides 399 H HDL Cholesterol TSH Arterial Blood Glucose Crossmatch 08/14/21 08/14/21 08/14/21 05:44 11:57 13:12 WBC RBC Hgb Hct MCH RDW Plt Count Lymph % (Auto) [place] % (Auto) Lymph # (Auto) Seg Neutrophils % Seg Neuts % (Manual) Lymphocytes % (Manual) Monocytes % (Manual) Eosinophils % (Manual) Basophils % (Manual) Nucleated RBC % Seg Neutrophils # Seg Neutrophils # Man Lymphocytes # (Manual) Monocytes # (Manual) APTT ABG pH 7.498 H POC ABG pCO2 29.1 L POC ABG pO2 61.8 L ABG pO2 ABG HCO3 ABG O2 Saturation ABG Base Excess ABG Hemoglobin 8.6 L ABG Oxyhemoglobin 91.9 L ABG Sodium 126.4 L ABG Potassium ABG Chloride 92.0 L ABG Glucose 99 H Oxyhemoglobin Carboxyhemoglobin Sodium Potassium Chloride Carbon Dioxide BUN Creatinine Glucose POC Glucose 111 H 111 H Calcium Phosphorus ALT Troponin T Total Protein Albumin Triglycerides HDL Cholesterol TSH Arterial Blood Glucose 99 H Crossmatch 08/14/21 08/15/21 08/15/21 Unknown 04:34 04:34 WBC RBC 3.14 L 2.79 L Hgb 8.5 L 7.8 L Hct 25.5 L 22.8 L MCH 27 L RDW 19.1 H 18.8 H Plt Count Lymph % (Auto) [place] % (Auto) Lymph # (Auto) Seg Neutrophils % Seg Neuts % (Manual) Lymphocytes % (Manual) Monocytes % (Manual) Eosinophils % (Manual) Basophils % (Manual) Nucleated RBC % Seg Neutrophils # Seg Neutrophils # Man Lymphocytes # (Manual) Monocytes # (Manual) APTT ABG pH POC ABG pCO2 POC ABG pO2 ABG pO2 ABG HCO3 ABG O2 Saturation ABG Base Excess ABG Hemoglobin ABG Oxyhemoglobin ABG Sodium ABG Potassium ABG Chloride ABG Glucose Oxyhemoglobin Carboxyhemoglobin Sodium 128 L Potassium Chloride 88.8 L Carbon Dioxide BUN 44 H Creatinine 5.1 H Glucose POC Glucose Calcium Phosphorus ALT Troponin T Total Protein Albumin Triglycerides HDL Cholesterol TSH Arterial Blood Glucose Crossmatch 08/15/21 08/15/21 08/15/21 05:22 10:56 16:52 WBC RBC Hgb Hct MCH RDW Plt Count Lymph % (Auto) [place] % (Auto) Lymph # (Auto) Seg Neutrophils % Seg Neuts % (Manual) Lymphocytes % (Manual) Monocytes % (Manual) Eosinophils % (Manual) Basophils % (Manual) Nucleated RBC % Seg Neutrophils # Seg Neutrophils # Man Lymphocytes # (Manual) Monocytes # (Manual) APTT ABG pH 7.496 H POC ABG pCO2 29.8 L POC ABG pO2 ABG pO2 ABG HCO3 ABG O2 Saturation ABG Base Excess ABG Hemoglobin 7.4 L ABG Oxyhemoglobin ABG Sodium 124.3 L ABG Potassium ABG Chloride 92.0 L ABG Glucose Oxyhemoglobin Carboxyhemoglobin Sodium Potassium Chloride Carbon Dioxide BUN Creatinine Glucose POC Glucose 111 H 115 H Calcium Phosphorus ALT Troponin T Total Protein Albumin Triglycerides HDL Cholesterol TSH Arterial Blood Glucose Crossmatch 08/16/21 08/16/21 08/16/21 04:00 04:00 10:57 WBC RBC 2.96 L Hgb 8.0 L Hct 23.9 L MCH 27 L RDW 18.6 H Plt Count Lymph % (Auto) [place] % (Auto) Lymph # (Auto) Seg Neutrophils % Seg Neuts % (Manual) Lymphocytes % (Manual) Monocytes % (Manual) Eosinophils % (Manual) Basophils % (Manual) Nucleated RBC % Seg Neutrophils # Seg Neutrophils # Man Lymphocytes # (Manual) Monocytes # (Manual) APTT ABG pH POC ABG pCO2 POC ABG pO2 ABG pO2 ABG HCO3 ABG O2 Saturation ABG Base Excess ABG Hemoglobin ABG Oxyhemoglobin ABG Sodium ABG Potassium ABG Chloride ABG Glucose Oxyhemoglobin Carboxyhemoglobin Sodium 132 L Potassium Chloride 93.1 L Carbon Dioxide BUN 26 H Creatinine 3.9 H Glucose 119 H POC Glucose 112 H Calcium Phosphorus ALT Troponin T Total Protein Albumin Triglycerides HDL Cholesterol TSH Arterial Blood Glucose Crossmatch 08/16/21 08/17/21 08/17/21 23:20 04:00 04:00 WBC RBC 3.07 L Hgb 8.1 L Hct 25.0 L MCH 26 L RDW 19.3 H Plt Count Lymph % (Auto) [place] % (Auto) Lymph # (Auto) Seg Neutrophils % Seg Neuts % (Manual) Lymphocytes % (Manual) Monocytes % (Manual) Eosinophils % (Manual) Basophils % (Manual) Nucleated RBC % Seg Neutrophils # Seg Neutrophils # Man Lymphocytes # (Manual) Monocytes # (Manual) APTT ABG pH POC ABG pCO2 POC ABG pO2 ABG pO2 ABG HCO3 ABG O2 Saturation ABG Base Excess ABG Hemoglobin ABG Oxyhemoglobin ABG Sodium ABG Potassium ABG Chloride ABG Glucose Oxyhemoglobin Carboxyhemoglobin Sodium 135 L Potassium Chloride 97.4 L Carbon Dioxide BUN 20 H Creatinine 3.0 H Glucose 171 H POC Glucose 125 H Calcium Phosphorus ALT Troponin T Total Protein Albumin Triglycerides HDL Cholesterol TSH Arterial Blood Glucose Crossmatch 08/17/21 08/17/21 08/17/21 05:09 05:12 11:46 WBC RBC Hgb Hct MCH RDW Plt Count Lymph % (Auto) [place] % (Auto) Lymph # (Auto) Seg Neutrophils % Seg Neuts % (Manual) Lymphocytes % (Manual) Monocytes % (Manual) Eosinophils % (Manual) Basophils % (Manual) Nucleated RBC % Seg Neutrophils # Seg Neutrophils # Man Lymphocytes # (Manual) Monocytes # (Manual) APTT ABG pH 7.579 H POC ABG pCO2 27.0 L POC ABG pO2 139.0 H ABG pO2 ABG HCO3 ABG O2 Saturation ABG Base Excess ABG Hemoglobin 8.1 L ABG Oxyhemoglobin 98.3 H ABG Sodium 132.1 L ABG Potassium ABG Chloride ABG Glucose 160 H Oxyhemoglobin Carboxyhemoglobin Sodium Potassium Chloride Carbon Dioxide BUN Creatinine Glucose POC Glucose 155 H 170 H Calcium Phosphorus ALT Troponin T Total Protein Albumin Triglycerides HDL Cholesterol TSH Arterial Blood Glucose 160 H Crossmatch 08/17/21 08/18/21 08/18/21 17:41 00:21 04:00 WBC RBC 2.82 L Hgb 7.5 L Hct 22.7 L MCH 27 L RDW 18.9 H Plt Count Lymph % (Auto) [place] % (Auto) Lymph # (Auto) Seg Neutrophils % Seg Neuts % (Manual) Lymphocytes % (Manual) Monocytes % (Manual) Eosinophils % (Manual) Basophils % (Manual) Nucleated RBC % Seg Neutrophils # Seg Neutrophils # Man Lymphocytes # (Manual) Monocytes # (Manual) APTT ABG pH POC ABG pCO2 POC ABG pO2 ABG pO2 ABG HCO3 ABG O2 Saturation ABG Base Excess ABG Hemoglobin ABG Oxyhemoglobin ABG Sodium ABG Potassium ABG Chloride ABG Glucose Oxyhemoglobin Carboxyhemoglobin Sodium Potassium Chloride Carbon Dioxide BUN Creatinine Glucose POC Glucose 150 H 152 H Calcium Phosphorus ALT Troponin T Total Protein Albumin Triglycerides HDL Cholesterol TSH Arterial Blood Glucose Crossmatch 08/18/21 08/18/21 08/18/21 04:00 05:38 11:58 WBC RBC Hgb Hct MCH RDW Plt Count Lymph % (Auto) [place] % (Auto) Lymph # (Auto) Seg Neutrophils % Seg Neuts % (Manual) Lymphocytes % (Manual) Monocytes % (Manual) Eosinophils % (Manual) Basophils % (Manual) Nucleated RBC % Seg Neutrophils # Seg Neutrophils # Man Lymphocytes # (Manual) Monocytes # (Manual) APTT ABG pH POC ABG pCO2 POC ABG pO2 ABG pO2 ABG HCO3 ABG O2 Saturation ABG Base Excess ABG Hemoglobin ABG Oxyhemoglobin ABG Sodium ABG Potassium ABG Chloride ABG Glucose Oxyhemoglobin Carboxyhemoglobin Sodium 132 L Potassium Chloride 94.8 L Carbon Dioxide BUN 36 H Creatinine 4.0 H Glucose 168 H POC Glucose 158 H 139 H Calcium Phosphorus ALT Troponin T Total Protein Albumin Triglycerides HDL Cholesterol TSH Arterial Blood Glucose Crossmatch 08/18/21 08/18/21 08/19/21 16:17 23:11 04:00 WBC RBC 3.09 L Hgb 8.2 L Hct 25.0 L MCH 27 L RDW 19.0 H Plt Count 506 H Lymph % (Auto) [place] % (Auto) Lymph # (Auto) Seg Neutrophils % Seg Neuts % (Manual) Lymphocytes % (Manual) Monocytes % (Manual) Eosinophils % (Manual) Basophils % (Manual) Nucleated RBC % Seg Neutrophils # Seg Neutrophils # Man Lymphocytes # (Manual) Monocytes # (Manual) APTT ABG pH POC ABG pCO2 POC ABG pO2 ABG pO2 ABG HCO3 ABG O2 Saturation ABG Base Excess ABG Hemoglobin ABG Oxyhemoglobin ABG Sodium ABG Potassium ABG Chloride ABG Glucose Oxyhemoglobin Carboxyhemoglobin Sodium Potassium Chloride Carbon Dioxide BUN Creatinine Glucose POC Glucose 126 H 170 H Calcium Phosphorus ALT Troponin T Total Protein Albumin Triglycerides HDL Cholesterol TSH Arterial Blood Glucose Crossmatch 08/19/21 08/19/21 08/19/21 04:00 05:17 12:34 WBC RBC Hgb Hct MCH RDW Plt Count Lymph % (Auto) [place] % (Auto) Lymph # (Auto) Seg Neutrophils % Seg Neuts % (Manual) Lymphocytes % (Manual) Monocytes % (Manual) Eosinophils % (Manual) Basophils % (Manual) Nucleated RBC % Seg Neutrophils # Seg Neutrophils # Man Lymphocytes # (Manual) Monocytes # (Manual) APTT ABG pH POC ABG pCO2 POC ABG pO2 ABG pO2 ABG HCO3 ABG O2 Saturation ABG Base Excess ABG Hemoglobin ABG Oxyhemoglobin ABG Sodium ABG Potassium ABG Chloride ABG Glucose Oxyhemoglobin Carboxyhemoglobin Sodium 135 L Potassium Chloride 94.4 L Carbon Dioxide BUN 53 H Creatinine 4.5 H Glucose 125 H POC Glucose 113 H 130 H Calcium Phosphorus ALT Troponin T Total Protein Albumin Triglycerides HDL Cholesterol TSH Arterial Blood Glucose Crossmatch 08/19/21 08/20/21 08/20/21 23:30 04:25 05:11 WBC RBC Hgb Hct MCH RDW Plt Count Lymph % (Auto) [place] % (Auto) Lymph # (Auto) Seg Neutrophils % Seg Neuts % (Manual) Lymphocytes % (Manual) Monocytes % (Manual) Eosinophils % (Manual) Basophils % (Manual) Nucleated RBC % Seg Neutrophils # Seg Neutrophils # Man Lymphocytes # (Manual) Monocytes # (Manual) APTT ABG pH 7.508 H POC ABG pCO2 POC ABG pO2 139.8 H ABG pO2 ABG HCO3 ABG O2 Saturation ABG Base Excess ABG Hemoglobin 8.2 L ABG Oxyhemoglobin 98.3 H ABG Sodium 129.8 L ABG Potassium ABG Chloride 96.0 L ABG Glucose 162 H Oxyhemoglobin Carboxyhemoglobin Sodium Potassium Chloride Carbon Dioxide BUN Creatinine Glucose POC Glucose 155 H 140 H Calcium Phosphorus ALT Troponin T Total Protein Albumin Triglycerides HDL Cholesterol TSH Arterial Blood Glucose 162 H Crossmatch 08/20/21 08/20/21 08/20/21 06:08 06:08 17:43 WBC RBC 2.90 L Hgb 7.9 L Hct 23.6 L MCH 27 L RDW 18.6 H Plt Count Lymph % (Auto) [place] % (Auto) Lymph # (Auto) Seg Neutrophils % Seg Neuts % (Manual) Lymphocytes % (Manual) Monocytes % (Manual) Eosinophils % (Manual) Basophils % (Manual) Nucleated RBC % Seg Neutrophils # Seg Neutrophils # Man Lymphocytes # (Manual) Monocytes # (Manual) APTT ABG pH POC ABG pCO2 POC ABG pO2 ABG pO2 ABG HCO3 ABG O2 Saturation ABG Base Excess ABG Hemoglobin ABG Oxyhemoglobin ABG Sodium ABG Potassium ABG Chloride ABG Glucose Oxyhemoglobin Carboxyhemoglobin Sodium 133 L Potassium Chloride 93.9 L Carbon Dioxide BUN 31 H Creatinine 3.3 H Glucose 148 H POC Glucose 157 H Calcium Phosphorus ALT Troponin T Total Protein Albumin Triglycerides 433 H HDL Cholesterol TSH Arterial Blood Glucose Crossmatch 08/21/21 08/21/21 08/21/21 00:21 05:12 08:15 WBC RBC Hgb Hct MCH RDW Plt Count Lymph % (Auto) [place] % (Auto) Lymph # (Auto) Seg Neutrophils % Seg Neuts % (Manual) Lymphocytes % (Manual) Monocytes % (Manual) Eosinophils % (Manual) Basophils % (Manual) Nucleated RBC % Seg Neutrophils # Seg Neutrophils # Man Lymphocytes # (Manual) Monocytes # (Manual) APTT ABG pH POC ABG pCO2 POC ABG pO2 ABG pO2 ABG HCO3 ABG O2 Saturation ABG Base Excess ABG Hemoglobin ABG Oxyhemoglobin ABG Sodium ABG Potassium ABG Chloride ABG Glucose Oxyhemoglobin Carboxyhemoglobin Sodium 134 L Potassium Chloride 94.9 L Carbon Dioxide BUN 42 H Creatinine 4.0 H Glucose 208 H POC Glucose 153 H 139 H Calcium Phosphorus ALT Troponin T Total Protein Albumin Triglycerides HDL Cholesterol TSH Arterial Blood Glucose Crossmatch 08/21/21 08/21/21 08/21/21 08:15 08:18 11:34 WBC RBC 2.90 L Hgb 7.7 L Hct 23.5 L MCH 27 L RDW 18.9 H Plt Count Lymph % (Auto) [place] % (Auto) Lymph # (Auto) Seg Neutrophils % Seg Neuts % (Manual) Lymphocytes % (Manual) Monocytes % (Manual) Eosinophils % (Manual) Basophils % (Manual) Nucleated RBC % Seg Neutrophils # Seg Neutrophils # Man Lymphocytes # (Manual) Monocytes # (Manual) APTT ABG pH POC ABG pCO2 POC ABG pO2 ABG pO2 ABG HCO3 ABG O2 Saturation ABG Base Excess ABG Hemoglobin ABG Oxyhemoglobin ABG Sodium ABG Potassium ABG Chloride ABG Glucose Oxyhemoglobin Carboxyhemoglobin Sodium Potassium Chloride Carbon Dioxide BUN Creatinine Glucose POC Glucose 187 H Calcium Phosphorus ALT Troponin T Total Protein 6.0 L Albumin 2.6 L Triglycerides HDL Cholesterol TSH Arterial Blood Glucose Crossmatch 08/21/21 08/21/21 08/22/21 15:55 23:16 05:02 WBC RBC Hgb Hct MCH RDW Plt Count Lymph % (Auto) [place] % (Auto) Lymph # (Auto) Seg Neutrophils % Seg Neuts % (Manual) Lymphocytes % (Manual) Monocytes % (Manual) Eosinophils % (Manual) Basophils % (Manual) Nucleated RBC % Seg Neutrophils # Seg Neutrophils # Man Lymphocytes # (Manual) Monocytes # (Manual) APTT ABG pH POC ABG pCO2 POC ABG pO2 ABG pO2 ABG HCO3 ABG O2 Saturation ABG Base Excess ABG Hemoglobin ABG Oxyhemoglobin ABG Sodium ABG Potassium ABG Chloride ABG Glucose Oxyhemoglobin Carboxyhemoglobin Sodium Potassium Chloride Carbon Dioxide BUN Creatinine Glucose POC Glucose 173 H 178 H 145 H Calcium Phosphorus ALT Troponin T Total Protein Albumin Triglycerides HDL Cholesterol TSH Arterial Blood Glucose Crossmatch 08/22/21 08/22/21 08/22/21 11:44 16:02 23:50 WBC RBC Hgb Hct MCH RDW Plt Count Lymph % (Auto) [place] % (Auto) Lymph # (Auto) Seg Neutrophils % Seg Neuts % (Manual) Lymphocytes % (Manual) Monocytes % (Manual) Eosinophils % (Manual) Basophils % (Manual) Nucleated RBC % Seg Neutrophils # Seg Neutrophils # Man Lymphocytes # (Manual) Monocytes # (Manual) APTT ABG pH POC ABG pCO2 POC ABG pO2 ABG pO2 ABG HCO3 ABG O2 Saturation ABG Base Excess ABG Hemoglobin ABG Oxyhemoglobin ABG Sodium ABG Potassium ABG Chloride ABG Glucose Oxyhemoglobin Carboxyhemoglobin Sodium Potassium Chloride Carbon Dioxide BUN Creatinine Glucose POC Glucose 211 H 156 H 200 H Calcium Phosphorus ALT Troponin T Total Protein Albumin Triglycerides HDL Cholesterol TSH Arterial Blood Glucose Crossmatch 08/23/21 08/23/21 08/23/21 04:35 04:35 05:08 WBC 13.5 H RBC Hgb Hct MCH 26 L RDW 19.6 H Plt Count Lymph % (Auto) [place] % (Auto) Lymph # (Auto) Seg Neutrophils % Seg Neuts % (Manual) Lymphocytes % (Manual) Monocytes % (Manual) Eosinophils % (Manual) Basophils % (Manual) Nucleated RBC % Seg Neutrophils # Seg Neutrophils # Man Lymphocytes # (Manual) Monocytes # (Manual) APTT ABG pH POC ABG pCO2 POC ABG pO2 ABG pO2 ABG HCO3 ABG O2 Saturation ABG Base Excess ABG Hemoglobin ABG Oxyhemoglobin ABG Sodium ABG Potassium ABG Chloride ABG Glucose Oxyhemoglobin Carboxyhemoglobin Sodium 132 L Potassium Chloride 94.6 L Carbon Dioxide 21 L BUN 60 H Creatinine 4.3 H Glucose 174 H POC Glucose 154 H Calcium Phosphorus ALT Troponin T Total Protein Albumin Triglycerides HDL Cholesterol TSH Arterial Blood Glucose Crossmatch 08/23/21 08/23/21 08/23/21 12:00 17:13 23:57 WBC RBC Hgb Hct MCH RDW Plt Count Lymph % (Auto) [place] % (Auto) Lymph # (Auto) Seg Neutrophils % Seg Neuts % (Manual) Lymphocytes % (Manual) Monocytes % (Manual) Eosinophils % (Manual) Basophils % (Manual) Nucleated RBC % Seg Neutrophils # Seg Neutrophils # Man Lymphocytes # (Manual) Monocytes # (Manual) APTT ABG pH POC ABG pCO2 POC ABG pO2 ABG pO2 ABG HCO3 ABG O2 Saturation ABG Base Excess ABG Hemoglobin ABG Oxyhemoglobin ABG Sodium ABG Potassium ABG Chloride ABG Glucose Oxyhemoglobin Carboxyhemoglobin Sodium Potassium Chloride Carbon Dioxide BUN Creatinine Glucose POC Glucose 172 H 181 H 145 H Calcium Phosphorus ALT Troponin T Total Protein Albumin Triglycerides HDL Cholesterol TSH Arterial Blood Glucose Crossmatch 08/24/21 08/24/21 08/24/21 05:20 05:20 11:33 WBC 20.5 H RBC 3.44 L Hgb 8.8 L D Hct 28.2 L D MCH 26 L RDW 19.9 H Plt Count 468 H Lymph % (Auto) [place] % (Auto) Lymph # (Auto) Seg Neutrophils % Seg Neuts % (Manual) Lymphocytes % (Manual) Monocytes % (Manual) Eosinophils % (Manual) Basophils % (Manual) Nucleated RBC % Seg Neutrophils # Seg Neutrophils # Man Lymphocytes # (Manual) Monocytes # (Manual) APTT ABG pH POC ABG pCO2 POC ABG pO2 ABG pO2 ABG HCO3 ABG O2 Saturation ABG Base Excess ABG Hemoglobin ABG Oxyhemoglobin ABG Sodium ABG Potassium ABG Chloride ABG Glucose Oxyhemoglobin Carboxyhemoglobin Sodium Potassium Chloride 95.1 L Carbon Dioxide BUN 43 H Creatinine 3.4 H Glucose POC Glucose 190 H Calcium Phosphorus ALT Troponin T Total Protein Albumin Triglycerides HDL Cholesterol TSH Arterial Blood Glucose Crossmatch 08/24/21 08/24/21 08/25/21 15:36 23:45 05:12 WBC 24.8 H RBC 3.59 L Hgb 9.5 L Hct 29.7 L MCH 27 L RDW 19.8 H Plt Count Lymph % (Auto) [place] % (Auto) Lymph # (Auto) Seg Neutrophils % Seg Neuts % (Manual) 96.0 H Lymphocytes % (Manual) 0 L Monocytes % (Manual) Eosinophils % (Manual) Basophils % (Manual) Nucleated RBC % 1.0 H Seg Neutrophils # Seg Neutrophils # Man 23.8 H Lymphocytes # (Manual) 0.0 L Monocytes # (Manual) 1.0 H APTT ABG pH POC ABG pCO2 POC ABG pO2 ABG pO2 ABG HCO3 ABG O2 Saturation ABG Base Excess ABG Hemoglobin ABG Oxyhemoglobin ABG Sodium ABG Potassium ABG Chloride ABG Glucose Oxyhemoglobin Carboxyhemoglobin Sodium Potassium Chloride Carbon Dioxide BUN Creatinine Glucose POC Glucose 194 H 157 H Calcium Phosphorus ALT Troponin T Total Protein Albumin Triglycerides HDL Cholesterol TSH Arterial Blood Glucose Crossmatch 08/25/21 08/25/21 08/25/21 05:12 05:46 12:06 WBC RBC Hgb Hct MCH RDW Plt Count Lymph % (Auto) [place] % (Auto) Lymph # (Auto) Seg Neutrophils % Seg Neuts % (Manual) Lymphocytes % (Manual) Monocytes % (Manual) Eosinophils % (Manual) Basophils % (Manual) Nucleated RBC % Seg Neutrophils # Seg Neutrophils # Man Lymphocytes # (Manual) Monocytes # (Manual) APTT ABG pH POC ABG pCO2 POC ABG pO2 ABG pO2 ABG HCO3 ABG O2 Saturation ABG Base Excess ABG Hemoglobin ABG Oxyhemoglobin ABG Sodium ABG Potassium ABG Chloride ABG Glucose Oxyhemoglobin Carboxyhemoglobin Sodium Potassium Chloride 93.9 L Carbon Dioxide 20 L BUN 61 H Creatinine 4.4 H Glucose 154 H POC Glucose 156 H 169 H Calcium 10.4 H Phosphorus ALT Troponin T Total Protein Albumin Triglycerides HDL Cholesterol TSH Arterial Blood Glucose Crossmatch 08/25/21 08/26/21 08/26/21 17:10 01:04 05:04 WBC 20.2 H RBC 3.02 L Hgb 8.0 L Hct 25.0 L MCH 27 L RDW 20.7 H Plt Count Lymph % (Auto) [place] % (Auto) Lymph # (Auto) Seg Neutrophils % Seg Neuts % (Manual) 96.0 H Lymphocytes % (Manual) 1.0 L Monocytes % (Manual) Eosinophils % (Manual) Basophils % (Manual) Nucleated RBC % Seg Neutrophils # Seg Neutrophils # Man 19.4 H Lymphocytes # (Manual) 0.2 L Monocytes # (Manual) APTT ABG pH POC ABG pCO2 POC ABG pO2 ABG pO2 ABG HCO3 ABG O2 Saturation ABG Base Excess ABG Hemoglobin ABG Oxyhemoglobin ABG Sodium ABG Potassium ABG Chloride ABG Glucose Oxyhemoglobin Carboxyhemoglobin Sodium Potassium Chloride Carbon Dioxide BUN Creatinine Glucose POC Glucose 172 H 129 H Calcium Phosphorus ALT Troponin T Total Protein Albumin Triglycerides HDL Cholesterol TSH Arterial Blood Glucose Crossmatch 08/26/21 08/26/21 08/26/21 05:04 06:08 11:28 WBC RBC Hgb Hct MCH RDW Plt Count Lymph % (Auto) [place] % (Auto) Lymph # (Auto) Seg Neutrophils % Seg Neuts % (Manual) Lymphocytes % (Manual) Monocytes % (Manual) Eosinophils % (Manual) Basophils % (Manual) Nucleated RBC % Seg Neutrophils # Seg Neutrophils # Man Lymphocytes # (Manual) Monocytes # (Manual) APTT ABG pH POC ABG pCO2 POC ABG pO2 ABG pO2 ABG HCO3 ABG O2 Saturation ABG Base Excess ABG Hemoglobin ABG Oxyhemoglobin ABG Sodium ABG Potassium ABG Chloride ABG Glucose Oxyhemoglobin Carboxyhemoglobin Sodium Potassium Chloride 92.8 L Carbon Dioxide 18 L BUN 77 H Creatinine 5.6 H Glucose 129 H POC Glucose 128 H 149 H Calcium Phosphorus ALT Troponin T Total Protein Albumin Triglycerides HDL Cholesterol TSH Arterial Blood Glucose Crossmatch 08/26/21 08/27/21 08/27/21 17:02 00:13 04:49 WBC RBC 2.86 L Hgb 7.6 L Hct 23.7 L MCH 27 L RDW 20.2 H Plt Count Lymph % (Auto) [place] % (Auto) Lymph # (Auto) Seg Neutrophils % Seg Neuts % (Manual) 95.0 H Lymphocytes % (Manual) 3.0 L Monocytes % (Manual) Eosinophils % (Manual) Basophils % (Manual) Nucleated RBC % Seg Neutrophils # Seg Neutrophils # Man 8.0 H Lymphocytes # (Manual) 0.3 L Monocytes # (Manual) APTT ABG pH POC ABG pCO2 POC ABG pO2 ABG pO2 ABG HCO3 ABG O2 Saturation ABG Base Excess ABG Hemoglobin ABG Oxyhemoglobin ABG Sodium ABG Potassium ABG Chloride ABG Glucose Oxyhemoglobin Carboxyhemoglobin Sodium Potassium Chloride Carbon Dioxide BUN Creatinine Glucose POC Glucose 124 H 175 H Calcium Phosphorus ALT Troponin T Total Protein Albumin Triglycerides HDL Cholesterol TSH Arterial Blood Glucose Crossmatch 08/27/21 08/27/21 08/27/21 04:49 06:31 11:49 WBC RBC Hgb Hct MCH RDW Plt Count Lymph % (Auto) [place] % (Auto) Lymph # (Auto) Seg Neutrophils % Seg Neuts % (Manual) Lymphocytes % (Manual) Monocytes % (Manual) Eosinophils % (Manual) Basophils % (Manual) Nucleated RBC % Seg Neutrophils # Seg Neutrophils # Man Lymphocytes # (Manual) Monocytes # (Manual) APTT ABG pH POC ABG pCO2 POC ABG pO2 ABG pO2 ABG HCO3 ABG O2 Saturation ABG Base Excess ABG Hemoglobin ABG Oxyhemoglobin ABG Sodium ABG Potassium ABG Chloride ABG Glucose Oxyhemoglobin Carboxyhemoglobin Sodium Potassium Chloride 95.2 L Carbon Dioxide BUN 47 H Creatinine 4.0 H Glucose 155 H POC Glucose 165 H 165 H Calcium Phosphorus ALT Troponin T Total Protein Albumin Triglycerides HDL Cholesterol TSH Arterial Blood Glucose Crossmatch Allied health notes reviewed: nursing
[2021-08-27 23:26] VITALS: BP 165/56
[2021-08-28] MEDS: methylPREDNISolone Sod Succinate 40 MG/1 ML INJ IV SCH (00:02)
[2021-08-28] MEDS: INSULIN REGULAR, HUMAN 100 UNITS/1 ML SUB-Q SCH (00:03)
--- NOTE | 2021-08-29 17:04 | Discharge Summary ---
Providers - Providers Date of Admission: 08/05/21 18:33 Date of discharge: 08/28/21 Attending physician: MICHELE FALL 08/05/21 17:28 Consult to Dietitian/Nutrition [CONS] Routine Physician Instructions: Reason For Exam: Reason for Consult: Evaluate nutritional intake 08/05/21 17:30 Consult to Physician [CONS] Urgent Comment: Consulting Provider: RIANA YEBOAH Physician Instructions: Reason For Exam: sustained vtach 08/05/21 17:57 Consult to Physician [CONS] Urgent Comment: Consulting Provider: SALEEM CABALLERO Physician Instructions: Reason For Exam: esrd, hypokalemia, vtach 08/05/21 18:59 Consult to Physician [CONS] Urgent Comment: Consulting Provider: KELLE CORADO Physician Instructions: Reason For Exam: intubated, sustained vtach, esrd 08/07/21 09:28 Consult to Dietitian/Nutrition [CONS] Routine Physician Instructions: Reason For Exam: Reason for Consult: Write/Manage Tube Feeding 08/10/21 16:05 Midline [Consult to PICC Line RN] [CONS] Urgent Reason For Exam: Vascular access (cleared from NephroDr Dolan) Type Line:: Midline 08/19/21 13:13 Midline [Consult to PICC Line RN] [CONS] Routine Reason For Exam: Vascular access (cleared from Dr Dolan); or PIV Type Line:: Midline 08/23/21 10:30 Speech Therapy Evaluation and Treat [CONS] Stat Reason For Exam: Failed bedside swallow Primary care physician: HEAD OF HISTORY Hospitalization Condition: Stable Hospital course: - Patient Problems (1) AICD discharge Current Visit: Yes Status: Acute (2) Anemia in end-stage renal disease Current Visit: Yes Status: Acute (3) Elevated troponin Current Visit: Yes Status: Acute (4) Hypokalemia Current Visit: Yes Status: Acute (5) Sustained ventricular tachycardia Current Visit: Yes Status: Acute (6) Diabetes Current Visit: No Status: Acute (7) Respiratory failure Current Visit: No Status: Acute Qualifiers: Chronicity: acute Respiratory failure complication: hypoxia Qualified Code(s): J96.01 - Acute respiratory failure with hypoxia (8) Hypertension Current Visit: Yes Status: Chronic Qualifiers: Hypertension type: primary hypertension Qualified Code(s): I10 - Essential (primary) hypertension Disposition: [facility] Time spent for discharge: 40 min Core Measure Documentation - Palliative Care Palliative Care/ Comfort Measures: Not Applicable Exam - Constitutional Vitals: Temp Pulse Resp BP Pulse Ox 98.4 F 70 18 165/56 96 08/27/21 23:17 08/27/21 23:17 08/27/21 23:17 08/27/21 23:17 08/27/21 23:17 Plan Follow up with: PRIMARY CAREMD [Primary Care Provider] - 3-5 Days
== END 2021-08-28 02:15 | DRG 207 ==
LOC: ED 15:39 → CC1 18:33 → 4A 08-24 00:34
PROVIDERS: ADMIT Internal Medicine; ATTEND Internal Medicine
PROC: 5A1955Z Respiratory Ventilation, Greater than 96 Consecutive Hours (ICD-10-PCS; principal; 2021-08-05)
PROC: 0BH17EZ Insertion of Endotracheal Airway into Trachea, Via Natural or Artificial Opening (ICD-10-PCS; 2021-08-05)
PROC: 4A033R1 Measurement of Arterial Saturation, Peripheral, Percutaneous Approach (ICD-10-PCS; 2021-08-05)
PROC: 06HY33Z Insertion of Infusion Device into Lower Vein, Percutaneous Approach (ICD-10-PCS; 2021-08-05)
PROC: 30233N1 Transfusion of Nonautologous Red Blood Cells into Peripheral Vein, Percutaneous Approach (ICD-10-PCS; 2021-08-06)
PROC: 5A1D70Z Performance of Urinary Filtration, Intermittent, Less than 6 Hours Per Day (ICD-10-PCS; 2021-08-07)
PROC: 5A1D70Z Performance of Urinary Filtration, Intermittent, Less than 6 Hours Per Day (ICD-10-PCS; 2021-08-10)
PROC: 5A1D70Z Performance of Urinary Filtration, Intermittent, Less than 6 Hours Per Day (ICD-10-PCS; 2021-08-12)
PROC: 5A1D70Z Performance of Urinary Filtration, Intermittent, Less than 6 Hours Per Day (ICD-10-PCS; 2021-08-15)
PROC: 03HY32Z Insertion of Monitoring Device into Upper Artery, Percutaneous Approach (ICD-10-PCS; 2021-08-15)
PROC: 5A1D70Z Performance of Urinary Filtration, Intermittent, Less than 6 Hours Per Day (ICD-10-PCS; 2021-08-16)
PROC: 5A1D70Z Performance of Urinary Filtration, Intermittent, Less than 6 Hours Per Day (ICD-10-PCS; 2021-08-19)
PROC: 5A1D70Z Performance of Urinary Filtration, Intermittent, Less than 6 Hours Per Day (ICD-10-PCS; 2021-08-21)
PROC: 5A1D70Z Performance of Urinary Filtration, Intermittent, Less than 6 Hours Per Day (ICD-10-PCS; 2021-08-23)
PROC: 5A09457 Assistance with Respiratory Ventilation, 24-96 Consecutive Hours, Continuous Positive Airway Pressure (ICD-10-PCS; 2021-08-23)
PROC: 5A1D70Z Performance of Urinary Filtration, Intermittent, Less than 6 Hours Per Day (ICD-10-PCS; 2021-08-26)
DX: J96.01 Acute respiratory failure with hypoxia (principal); N18.6 End stage renal disease; I21.A1 Myocardial infarction type 2; I47.2 Ventricular tachycardia; I13.2 Hypertensive heart and chronic kidney disease with heart failure and with stage 5 chronic kidney disease, or end stage renal disease; I50.20 Unspecified systolic (congestive) heart failure; E87.1 Hypo-osmolality and hyponatremia; D61.818 Other pancytopenia; I16.1 Hypertensive emergency; Z20.822 Contact with and (suspected) exposure to COVID-19; E87.6 Hypokalemia; I45.81 Long QT syndrome; Z95.810 Presence of automatic (implantable) cardiac defibrillator; Z79.899 Other long term (current) drug therapy; Z79.4 Long term (current) use of insulin; Z86.73 Personal history of transient ischemic attack (TIA), and cerebral infarction without residual deficits; E11.22 Type 2 diabetes mellitus with diabetic chronic kidney disease; Z99.2 Dependence on renal dialysis; G43.909 Migraine, unspecified, not intractable, without status migrainosus; E21.3 Hyperparathyroidism, unspecified; Z82.49 Family history of ischemic heart disease and other diseases of the circulatory system; R77.8 Other specified abnormalities of plasma proteins; D63.1 Anemia in chronic kidney disease; D69.6 Thrombocytopenia, unspecified; E87.8 Other disorders of electrolyte and fluid balance, not elsewhere classified; E11.649 Type 2 diabetes mellitus with hypoglycemia without coma; R13.10 Dysphagia, unspecified
CPT/HCPCS: 36415; 36600; 70450; 70490; 71045; 74018; 80048; 80053; 80061; 80074; 80076; 82140; 82803; 82805; 82962; 83735; 84100; 84132; 84443; 84478; 84484; 85007; 85014; 85018; 85025; 85027; 85049; 85610; 85730; 86850; 86900; 86901; 86920; 87040; 87070; 87205; 93005; 94002; 94003; 94640; 94660; 94760; 99291; G0378; J3490; J7060; J7120; J7121; Q0162; Q9967; J0282; J0330; J0360; J0885; J1630; J1644; J1815; J2001; J2060; J2250; J2704; J2920; J3010; J3475; J3480; J3486; J7030; J7040; J7042; J7050; P9016; P9017; U0003